=== PATIENT | male | born 1940 | race Caucasian/White ===

== ENCOUNTER → 2017-05-08 13:12 | Outpatient (CLI) | payer MEDICARE, OTHER, SELFPAY ==
--- NOTE | 2017-05-08 13:14 | CT_ITS ---
STUDY: LOW DOSE CT LUNG CANCER SCREENING REASON FOR EXAM: Male, 76 years old. Tobacco abuse. 40 year pack smoking history. RADIATION DOSAGE (If Supplied By Facility): CTDIvol = ( 2.01 ) mGy, DLP = ( 79.52 ) mGycm TECHNIQUE: No contrast was administered. Low dose technique was utilized (average mAS-38 and kVp 120). 1.25 mm axial source images with a slice interval of 1.25-mm were reconstructed in lung windows. 2.5 mm axial source images with a slice interval of 2.5-mm were reconstructed in lung windows. 5.0 mm axial source images with a slice interval of 5.0-mm were reconstructed in soft tissue windows. Nodule measured using lung windows on PACS and/or independent workstation with automated measurement of minimum and maximum diameter. Nodule measurement reported as average diameter rounded to the nearest whole number. Growth is defined as an increase ins size of greater than 1.5 mm. COMPARISON: None. NODULES: There is a 1.5 cm x 0.8 cm spiculated nodule in the medial superior aspect of the right upper lobe. There is also evidence of scarring with focal bronchiectasis in both lung apices. Mild linear scarring in the lingular segment of the left upper lobe as well as both lung bases. Emphysema: Hyperinflation. Diffuse emphysematous changes. Aorta: Atherosclerotic plaque. Coronary arteries: Coronary artery calcification. CT/Low Dose CT Lung Screening IMPRESSION: Diffuse emphysematous changes scarring at both lung apices. 1.5 cm x 0.8 cm typically nodule in the medial superior aspect of the right upper lobe. Correlation with the a PET scan is recommended for further evaluation. IMPORTANT NOTES FOR USE: ACR Lung-RADS Version 1.0 Assessment Categories Release Date: July 22, 2013 Category: Coded 0-4 bases on nodule(s) with highest degree of suspicion. Negative screen is defined as categories 1 and 2; a positive screen is defined as categories 3 and 4. Category 3 and 4A nodules that are unchanged on interval CT should be coded as category 2, and individuals returned to screening in 12 months. Category 4X: Category 3 or 4 nodules with additional imaging findings that increase the suspicion of lung cancer, such as spiculation, GGN that doubles in size in 1 year, enlarged lymph notes, etc. Category Modifiers: S (significant finding unrelated to lung cancer) and C (prior history of treated lung cancer) may be added to the 0-4 Lung-RADS Electronically Signed: Piyush Knowles MD at 14:15 EST Tel [phone], Service support ,
== END ==
PROVIDERS: Family Provider Family Medicine; PCP Family Medicine; Visit Provider Internal Medicine Pulmonary Disease
DX: Z87.891 Personal history of nicotine dependence (principal)
CPT/HCPCS: G0297

== ENCOUNTER → 2017-05-29 07:24 | Outpatient (CLI) | payer MEDICARE, OTHER, SELFPAY ==
--- NOTE | 2017-05-29 08:00 | PET_ITS ---
EXAMINATION: FDG PET CT INDICATIONS: A 76-year-old male with reported history of pulmonary nodularity. COMPARISON EXAMINATION: CT of the chest report dated 04/28/17. INDEX LESION SIZE SUV INTERPRETATION Right upper hemithorax pulmonary parenchyma, right upper lobe 9.2 mm (frame 244) 1.3 Quantitative criteria for viable neoplasm are not fulfilled, sequential radiologic investigation recommended NON-INDEX LESION SIZE SUV INTERPRETATION Left lobe of the thyroid gland 5.0 May warrant further investigation with thyroid ultrasound secondary to the quantitative degree of uptake Right-left thoracic perihilum 2.2 Quantitative criteria for viable neoplasm are not fulfilled TECHNIQUE: Following the intravenous administration of 12.3 mCi of F-18 deoxyglucose via the left antecubital fossa, multiplanar image acquisitions of the neck, chest, abdomen and pelvis to level of mid thigh, obtained at one hour post radiopharmaceutical administration contemporaneously interpreted with the current CT of the neck, chest, abdomen and pelvis to level of mid thigh, dated 05/29/[address] of the chest report dated 04/28/17 reveal: SERUM GLUCOSE LEVEL: 121 mg/dl. HEIGHT: 67 inches. WEIGHT: 138 lbs. FINDINGS: 1. Subtle increased glucose metabolism is demonstrated in the right upper hemithorax pulmonary parenchyma, right upper lobe generating a calculated maximum standard uptake value of 1.3. The maximal axial diameter of the corresponding parenchymal density on review of CT of the thorax dated 05/29/17 is approximately 9.2 mm (transverse). 2. Mild enhanced glucose concentration is observed in the bilateral thoracic perihilum generating a calculated maximum standard uptake value of 2.2. Quantitative criteria for viable neoplasm are not fulfilled. 3. Normal physiologic distribution of the radiopharmaceutical is apparent in the hepatic (2.8) and splenic parenchyma, both renal units, bladder and visualized intestinal tract. There is symmetric and preserved glucose metabolism noted in the visualized portion of the frontal, occipital, temporal and parietal lobes of the cerebral cortex, as well as cerebral hemispheres and basal ganglia. Diffuse intestinal tract activity is noted throughout all four quadrants of the abdominal-pelvic retroperitoneum, mesentery consistent with normal physiologic distribution of the radiopharmaceutical. Prominent glucose metabolism is defined in the left anterior neck contiguous to the left lobe of the thyroid gland generating a calculated maximum standard uptake value of 5.0. Pertinent CT findings are as follows. CHEST: Emphysematous change is noted in the bilateral upper-mid lung zones. There are no additional parenchymal densities-nodules demonstrated in the right-left hemithorax manifesting quantitatively significant increased glucose metabolism. Bilateral axillary soft tissue densities with fatty hilus formation are non-glucose avid. Coronary arterial calcification is observed. Atherosclerotic calcification is defined in the thoracic aorta without evidence of dilatation, aneurysm formation. Mediastinal soft tissue densities are ametabolic. ABDOMEN AND PELVIS: Atherosclerotic calcification is defined in the abdominal aorta without evidence of dilatation, aneurysm formation. Pelvic arterial calcification is observed. Dystrophic calcifications are manifest within the prostate gland. Right-left subcentimeter inguinal soft tissue densities reveal no evidence of increased glucose metabolism. Colonic diverticulosis is defined. Calcification is demonstrated in the right kidney. SKELETAL: Degenerative changes defined in the cervical, thoracic and lumbar spine demonstrate no evidence for glucose hypermetabolism. Diffuse demineralization is visualized. PET/PET/CT Tumor Base -Thigh Init IMPRESSION: 1. Increased glucose concentration observed in the right upper hemithorax pulmonary parenchyma, right upper lobe does not fulfill quantitative criteria for viable neoplasm. (Vanegas et al, Annals of Internal Medicine, 138:724, 2003). 2. Metabolic and/or anatomic stability may be ensured in the right hemithorax pulmonary parenchymal abnormality with repeat FDG PET study and/or CT of the thorax in three months. (Xiu, Journal of Nuclear Medicine 45:88, P2004. Carin, Seminars in Thoracic and Cardiovascular Surgery 14:292, 2002). 3. Facilitated glucose concentration observed in the left lobe of the thyroid gland may warrant further investigation with thyroid ultrasound secondary to the quantitative degree of uptake. (Denny Fallon et al, Journal of Clinical Endocrinology and Metabolism 88:4100, 2003). 4. Enhanced glucose concentration visualized in the right and left thoracic perihilum does not fulfill quantitative criteria for viable neoplasm. (Marck, Journal of Clinical Oncology 16:2142, 1998). Electronic Signature Ross Maria D.O. Electronically Signed: Ross Maria DO at 23:51 EST Tel , Service support ,
== END ==
PROVIDERS: Family Provider Family Medicine; PCP Family Medicine; Visit Provider Internal Medicine Pulmonary Disease
DX: R91.1 Solitary pulmonary nodule (principal)
CPT/HCPCS: 78815; A9552; A4216

== ENCOUNTER → 2017-07-19 10:22 | Outpatient (CLI) | payer MEDICARE, OTHER, SELFPAY ==
[2017-07-19 12:33] LABS: Anion Gap 9 (5-15); BUN 29 mg/dL (7-18); BUN/Creat Ratio 25.4 RATIO (10-20); Calcium,Total 9.2 mg/dL (8.5-10.1); Chloride 103 mmol/L (98-107); Creatinine, Serum 1.14 mg/dL (0.70-1.30); EST Glomerular Filtration Rate 67 mL/min (>60); Est Glom Filt Rate - Afr Amer 81 mL/min (>60); Glucose 110 mg/dL (74-106); Potassium 3.4 mmol/L (3.5-5.1); Sodium Level 140 mmol/L (136-145); T4 Total, Thyroxin 10.6 ug/dL (4.5-12.1); Thyroid Stim Hormone (TSH) 0.23 uIU/mL (0.358-3.74)
== END ==
PROVIDERS: Family Provider Family Medicine; PCP Family Medicine; Visit Provider Family Medicine
DX: I10 Essential (primary) hypertension (principal); R94.6 Abnormal results of thyroid function studies
CPT/HCPCS: 36415; 80048; 84436; 84443; 84481

== ENCOUNTER → 2017-07-24 10:14 | Outpatient (CLI) | payer MEDICARE, OTHER, SELFPAY ==
--- NOTE | 2017-07-24 10:16 | US_ITS ---
STUDY: THYROID ULTRASOUND REASON FOR EXAM: Male, 76 years old. Abnormal thyroid function tests TECHNIQUE: Ultrasound evaluation of the thyroid was performed with real-time and static larson-scale imaging. COMPARISON: None. FINDINGS: RIGHT LOBE: The right lobe of the thyroid gland measures 5.5 x 1.9 x 2.8 cm. There is a homogeneous echotexture. Multiple solid nodules are noted, largest contains calcifications and measures 1.0 x 0.9 x 0.9 cm. LEFT LOBE: The left lobe of the thyroid gland measures 5.2 x 2.0 x 2.7 cm. There is a homogeneous echotexture. Multiple solid nodules identified, largest measures 1.8 x 1.2 x 1.2 cm ISTHMUS: The isthmus measures 4 mm. The regional lymph nodes are normal. US/Thyroid IMPRESSION: Enlarged homogeneous thyroid gland with multiple bilateral solid hypoechoic nodules. The largest in the right lobe contains calcifications. Findings are likely sales representative business courses of goiter but there are no previous studies available for comparison. Further evaluation with thyroid uptake study is recommended to assess uptake characteristics of the nodules. Electronically Signed: Rainer Rogers MD at 11:26 EDT , Service support ,
== END ==
PROVIDERS: Family Provider Family Medicine; PCP Family Medicine; Visit Provider Family Medicine
DX: R94.6 Abnormal results of thyroid function studies (principal)
CPT/HCPCS: 76536

== ENCOUNTER → 2017-08-01 10:18 | Outpatient (CLI) | payer MEDICARE, OTHER, SELFPAY ==
--- NOTE | 2017-08-01 10:21 | RAD_ITS ---
STUDY: X-RAY CHEST REASON FOR EXAM: Male, 76 years old. COPD exacerbation TECHNIQUE: PA and lateral views of the chest. COMPARISON: 06/25/2013 FINDINGS: There is hyperinflation of the lungs consistent with chronic obstructive lung disease (COPD). Lungs are clear. There is no demonstrated pleural abnormality. Normal size heart. Normal mediastinum and katie. Normal visualized pulmonary arteries. Normal visualized aortic arch and descending thoracic aorta. Normal visualized thoracic spine. Normal visualized ribs, clavicles, and shoulders. There is no demonstrated abnormality of the visualized soft tissue structures of the upper abdomen. RAD/Chest PA and Lateral IMPRESSION: COPD without acute findings Electronically Signed: Ranjan Cardona DO at 17:34 EDT Tel , Service support ,
== END ==
PROVIDERS: Family Provider Family Medicine; PCP Family Medicine; Visit Provider Family Medicine
DX: J44.1 Chronic obstructive pulmonary disease with (acute) exacerbation (principal)
CPT/HCPCS: 71046

== ENCOUNTER → 2017-08-14 08:48 | Outpatient (CLI) | payer MEDICARE, OTHER, SELFPAY ==
--- NOTE | 2017-08-14 08:45 | NM_ITS ---
CLINICAL: Male, 76 years old. THYROID IMAGING STUDY TECHNIQUE: The patient was administered a 322 uCi I-123 capsule by mouth. Frontal plantar imaging of the thyroid was performed. COMPARISON STUDIES : Ultrasound thyroid 07/24/2017. PET CT 05/29/2017. CT chest 05/08/2017. FINDINGS: On the PET CT scan of 05/29/2017, there was a left-sided thyroid nodule measuring approximately 13 mm in greatest dimension exhibiting avid radiotracer uptake, hypermetabolic activity. This is a cold nodule on the thyroid scan today. This must be regarded with suspicion for neoplasm. Biopsy is recommended. There is otherwise homogeneous distribution of radiotracer within the right and the left gland. The right gland is slightly taller than the left. Thyroid uptake at 4 hours, 13.5%. Thyroid uptake at 24 hours, 28.4%. These values fall within normal ranges. NM/Thyroid Image Quant Measure IMPRESSION: 1. Normal thyroid uptake values. No evidence of hyper or hypothyroidism. 2. Cold nodule of the left thyroid gland corresponds in size and position with the hypermetabolic left thyroid nodule seen on PET/CT. These features must be regarded with suspicion for neoplasm. Biopsy is indicated. 3. On the recent ultrasound, the dominant solid nodule of the left thyroid gland measured approximately 18 x 12 x 12 mm. This corresponds with a cold nodule on today's study and with the hypermetabolic nodule on PET. Sonographic features include heterogeneous, hypoechoic, sharply circumscribed margins, oval shape, internal Doppler flow present. Based on the [place] Thy[employer] Guidelines for assessment of thyroid nodules, this nodule falls into the intermediate suspicion pattern based on echotexture and morphology, a hypoechoic solid nodule with smooth margins. Based on size criteria, greater than 1 cm, biopsy is indicated. Electronically Signed: Ross Mckinney, at 15:25 EDT Tel , Service support ,
== END ==
PROVIDERS: Family Provider Family Medicine; PCP Family Medicine; Visit Provider Family Medicine
DX: E04.2 Nontoxic multinodular goiter (principal)
CPT/HCPCS: 78014; A9516

== ENCOUNTER → 2017-09-05 17:20 | Outpatient (CLI) | payer MEDICARE, OTHER, SELFPAY ==
--- NOTE | 2017-09-05 11:30 | ASPS_PTH ---
PATIENT: MARGAUX NEWSOME LOC: [facility] U#:[id number] AGE/SX: 84/M ROOM: RE09/05/[address]: Dr. Micah Garcia MD : 1940 BED: DIS: SPEC #: [id number] RECD: 09/05/17 17:02 STATUS: EMELY SHANNON #: [id number] ELSA: 09/05/17 11:[address]: Micah Garcia DEPT: CYTOLOGY RECD BY: Jam Anaya Tissues: A - Thyroid gland, NOS B - Thyroid gland, NOS Procedures: Pap Stain (control) Special Stain Group II Cytology Other HEADER OPERATION: Bilateral thyroid FNA PRE-OP DIAGNOSIS: Bilateral thyroid nodules TISSUE SUBMITTED: A ? Right thyroid slides (4), B ? Left thyroid slides (8) DIAGNOSIS CYTOLOGY A. Right thyroid nodule, FNA (smears): Consistent with benign colloid nodule. See cytology study and comment. B. Left thyroid nodule, FNA (smears): Consistent with benign follicular nodule with focal H?rthle cell features. See cytology study and comment. SJ:rg 09/07/17 COMMENT Correlation with clinical, radiologic findings and appropriate follow up are necessary. CYTOLOGY STUDY Slides are reviewed. A. The specimen is adequate for evaluation. The specimen consists of benign follicular cells and colloid. B. The specimen is adequate for evaluation. The specimen consists of benign follicular cells, H?rthle cells, colloid and macrophages. CYTOLOGY GROSS A - Received are four smears labeled with the patient's name and designated per the requisition as right thyroid. Submitted for staining. B - Received are eight smears labeled with the patient's name and designated per the requisition as left thyroid. Submitted for staining. 09/06/17 TC:5 CPT: 16695 x2
== END ==
PROVIDERS: Visit Provider Surgery
DX: E04.2 Nontoxic multinodular goiter (principal)
CPT/HCPCS: 88161; 88313

== ENCOUNTER → 2017-09-26 12:49 | Outpatient (CLI) | payer MEDICARE, OTHER, SELFPAY ==
--- NOTE | 2017-09-26 12:51 | CT_ITS ---
STUDY: CT CHEST WITHOUT CONTRAST REASON FOR EXAM: Male, 77 years old. Lung nodule RADIATION DOSAGE (If Supplied By Facility): CTDIvol = ( 8.54 ) mGy, DLP = ( 326.47 ) mGycm TECHNIQUE: Transaxial imaging was performed without the administration of intravenous contrast material. Individualized dose optimization techniques were used for this CT. COMPARISON: May 08, 2017 FINDINGS: There is a 6 mm spiculated noncalcified nodule in the RIGHT upper lung corresponding to lesion seen on prior study. This is essentially unchanged. There is advanced COPD. There are fibrotic changes at the lung bases. There are NO infiltrates. There is NO pleural effusion or pneumothorax. Normal heart and pericardium. Normal mediastinum. Normal hilar regions. Normal unenhanced pulmonary arteries. Normal aorta arch and descending thoracic aorta. Normal osseous structures. There is no demonstrated abnormality of the visualized upper abdomen. CT/Chest without Contrast IMPRESSION: There is a 6 mm spiculated noncalcified nodule in the RIGHT upper lung corresponding to lesion seen on prior study. This is essentially unchanged. NO new nodules are seen. There is advanced COPD. There are fibrotic changes at the lung bases. There are NO infiltrates. There is NO pleural effusion or pneumothorax. Normal heart and pericardium. Electronically Signed: Ricardo Sandhu MD at 5:21 EDT , Service support ,
== END ==
PROVIDERS: Family Provider Family Medicine; PCP Family Medicine; Visit Provider Internal Medicine Pulmonary Disease
DX: R91.1 Solitary pulmonary nodule (principal)
CPT/HCPCS: 71250

== ENCOUNTER → 2018-02-09 13:40 | Outpatient (CLI) | payer MEDICARE, OTHER, SELFPAY ==
[2018-02-09 14:21] LABS: AST(SGOT) 22 U/L (15-37); Alanine Aminotransfer ALT/SGPT 22 U/L (16-61); Albumin, Serum 3.8 g/dL (3.2-5.0); Alkaline Phosphatase 79 U/L (45-117); Anion Gap 10 (5-15); BUN 25 mg/dL (7-18); BUN/Creat Ratio 27.2 RATIO (10-20); Bilirubin, Direct 0.13 mg/dL (0.00-0.30); Calcium,Total 8.9 mg/dL (8.5-10.1); Chloride 107 mmol/L (98-107); Cholesterol 218 mg/dL (200); Creatinine, Serum 0.92 mg/dL (0.70-1.30); EST Glomerular Filtration Rate 85 mL/min (>60); Est Glom Filt Rate - Afr Amer 103 mL/min (>60); Glucose 106 mg/dL (74-106); High Density Lipoprotein 49 mg/dL; Potassium 4.3 mmol/L (3.5-5.1); Protein, Total 6.8 g/dL (6.4-8.2); Sodium Level 142 mmol/L (136-145); Thyroid Stim Hormone (TSH) 0.27 uIU/mL (0.358-3.74); Triglycerides 126 mg/dL; Very Low Density Lipoprotein 25 mg/dL (5-40)
== END ==
PROVIDERS: PCP Family Medicine; Visit Provider Family Medicine
DX: E78.5 Hyperlipidemia, unspecified (principal); I10 Essential (primary) hypertension; E04.9 Nontoxic goiter, unspecified
CPT/HCPCS: 36415; 80048; 80061; 80076; 84443

== ENCOUNTER → 2018-05-08 12:48 | Outpatient (CLI) | payer MEDICARE, OTHER, SELFPAY ==
--- NOTE | 2018-05-08 12:53 | CT_ITS ---
STUDY: CT CHEST WITHOUT CONTRAST REASON FOR EXAM: Male, 77 years old. Pulmonary nodule follow-up RADIATION DOSAGE (If Supplied By Facility): CTDIvol = ( 9.52 ) mGy, DLP = ( 382.94 ) mGycm TECHNIQUE: Transaxial imaging was performed without the administration of intravenous contrast material. Coronal and sagittal 2-D MPR Individualized dose optimization techniques were used for this CT. COMPARISON: CT chest 09/26/2017, PET/CT 05/29/2017. FINDINGS: Supraclavicular: Low density sharply circumscribed oval left thyroid inferior pole nodule measuring 1.39 cm is unchanged compared to prior imaging. An adjacent small low-density nodule measures 9 mm, also unchanged. No apparent nodule of the right thyroid gland. No supraclavicular lymphadenopathy. Thoracic body wall soft tissues: No acute process. Upper abdomen: No acute process. Moderate pancreatic atrophy. Osseous structures: No acute process. Mild scoliosis. Moderate thoracic kyphosis. Minimal thoracic spondylosis. A small sclerotic focus within the T1 vertebral body is stable compared to prior imaging of September 2017 and is most likely to represent a small benign osteoma. Mediastinum: Normal esophagus. No mediastinal or hilar mass or lymphadenopathy. Cardiovascular: No cardiomegaly. Prominent chronic cusp secretions are present in the left main, proximal LAD, origin of circumflex. None are seen in the RCA distribution. Nondilated aorta, mild arch atherosclerosis. Nondilated central pulmonary arteries. Lungs: There are prominent features of COPD/emphysema. There are no apparent pulmonary nodules on the left. There is minimal left apical scar. On the right, apical segment of the upper lobe, spiculated pulmonary nodule with a greatest anterior-posterior dimension of approximate 7.4 mm, craniocaudal approximately 15 mm, and transverse approximately 8.5 mm. In comparison to prior imaging of 03/07/2019 (direct measurements performed today), the lesion previously measured anterior-posterior 17 mm, craniocaudal 15 mm, and transverse 8.5 mm. There has been no significant change in the size or morphology of the lesion. In comparison to prior PET/CT of 05/29/2017 there has also been no significant change in size or morphology of the lesion. CT/Chest without Contrast IMPRESSION: Right upper lobe apical segment spiculated pulmonary nodule has not substantially changed in size or morphology compared to prior imaging as far back as 05/29/2017. Demonstrated stability over 11 months. Surveillance imaging follow-up is recommended in one year. A follow-up low dose CT chest would be appropriate. No other suspicious pulmonary lesions. Severe emphysema. Coronary atherosclerosis. Electronically Signed: Ross Mckinney MD at 17:32 EST Tel , Service support ,
== END ==
PROVIDERS: Family Provider Family Medicine Geriatric Medicine; PCP Family Medicine Geriatric Medicine; Referring Provider Internal Medicine Pulmonary Disease; Visit Provider Internal Medicine Pulmonary Disease
DX: R91.1 Solitary pulmonary nodule (principal)
CPT/HCPCS: 71250

== ENCOUNTER → 2018-05-22 16:10 | Outpatient (CLI) | payer MEDICARE, OTHER, SELFPAY ==
[2018-05-22 16:36] LABS: Absolute Lymphocyte Count 1.38 X10^3/ul (0.83-4.51); Absolute Neutrophil Count 4.4 X10^3/uL (2.0-7.7); Basophil# 0.08 X10^3/uL; Basophil% 1.2 % (0-1); Eosinophil# 0.19 X10^3/uL; Eosinophils% 2.8 % (0-5); Hematocrit 44.1 % (40-54); Hemoglobin 14.6 g/dl (13.0-16.5); Lymphocyte # 1.38 X10^3/ul (4.0); Lymphocyte % 20.1 % (19-41); Mean Corp Hgb Conc 33.1 g/gl (32-36); Mean Corpuscular Hgb 31.7 pg (27.0-32.0); Mean Corpuscular Volume 95.7 fL (80-94); Mean Platelet Vol. 10.4 fl (6.2-12.0); Monocyte# 0.84 X10^3/uL; Monocyte% 12.2 % (0-10); Neutrophil # 4.38 X10^3/uL (2.7-7.7); Neutrophil % 63.6 % (47-70); POSITIVE COUNT NO; POSITIVE DIFFERENTIAL NO; POSITIVE MORPHOLOGY NO; Platelet Count 279 K/mm3 (150-450); RBC Distribution Width SD 44.1 fl (35.1-43.9); Red Blood Count 4.61 M/mm3 (4.6-6.2); White Blood Count 6.9 K/mm3 (4.4-11.0)
[2018-05-22 17:09] LABS: Vitamin D,25 Hydroxy 22.8 ng/mL (29.95-100.01)
[2018-05-22 17:18] LABS: AST(SGOT) 22 U/L (15-37); Alanine Aminotransfer ALT/SGPT 22 U/L (16-61); Albumin, Serum 3.6 g/dL (3.2-5.0); Alkaline Phosphatase 82 U/L (45-117); Anion Gap 7 (5-15); BUN 24 mg/dL (7-18); Calcium,Total 8.7 mg/dL (8.5-10.1); Chloride 105 mmol/L (98-107); Cholesterol 212 mg/dL (200); Creatinine, Serum 0.86 mg/dL (0.70-1.30); EST Glomerular Filtration Rate 92 mL/min (>60); Est Glom Filt Rate - Afr Amer 112 mL/min (>60); Globulin 3.5 g/dL (2.2-4.2); Glucose 101 mg/dL (74-106); High Density Lipoprotein 54 mg/dL; Potassium 3.8 mmol/L (3.5-5.1); Protein, Total 7.1 g/dL (6.4-8.2); Sodium Level 138 mmol/L (136-145); Thyroid Stim Hormone (TSH) 0.26 uIU/mL (0.358-3.74); Triglycerides 258 mg/dL; Very Low Density Lipoprotein 52 mg/dL (5-40)
[2018-05-23 14:28] LABS: T3 Uptake 37 % (33-40); T4 Free Direct 1.04 ng/dL (0.76-1.46)
== END ==
PROVIDERS: Family Provider Family Medicine Geriatric Medicine; PCP Family Medicine Geriatric Medicine; Visit Provider Family Medicine Geriatric Medicine
DX: E55.9 Vitamin D deficiency, unspecified (principal); R53.83 Other fatigue; E78.41 Elevated Lipoprotein(a); E03.9 Hypothyroidism, unspecified
CPT/HCPCS: 36415; 80053; 80061; 82306; 84439; 84443; 84479; 85025

== ENCOUNTER → 2018-05-24 07:52 | Outpatient (CLI) | payer MEDICARE, OTHER, SELFPAY ==
--- NOTE | 2018-05-24 07:54 | US_ITS ---
PROCEDURES: ULTRASOUND AORTA REASON FOR EXAM: Male, 77 years old. Abdominal aortic aneurysm TECHNIQUE: Ultrasound evaluation of the aorta was performed with real-time and static larson-scale imaging. COMPARISON: None. FINDINGS: There is no elongation or tortuosity of the abdominal aorta. Aorta measures: Proximal 2.4 cm. Middle 1.3 cm. Distal 1.4 cm. Aorta measure transversely: Proximal 2.3 cm. Middle 1.9 cm. Distal 2.3 cm. Right iliac artery measures: 1.1 cm. Right iliac artery measure transversely adequate images could not be obtained secondary to bowel gas artifact. Left iliac artery measures: 0.8 cm. Left iliac artery measure transversely accurate transverse measurements cannot be obtained secondary to bowel gas artifact. There is no demonstrated aneurysm.. US/Aorta IMPRESSION: There is no evidence of aneurysmal dilatation of the abdominal aorta or left or right common iliac arteries. Electronically Signed: Isaac Hernandes MD at 23:54 EST , Service support ,
--- NOTE | 2018-05-24 09:20 | BD_ITS ---
STUDY: DUAL ENERGY X-RAY ABSORPTIOMETRY / DXA REASON FOR EXAM: Male, 77 years old. Steroid nebulizer use. Loss of height. TECHNIQUE: Bone Mineral Density (BMD) measurements of lumbar spine and bilateral hips were obtained. COMPARISON: Comparison is made with prior study dated March 16, 2006. FINDINGS: Lumbar Spine (L1-L4): g/cm2 (0.937) / T-score (-2.5) / Z-score (-1.9) Findings are suggestive of osteoporosis with a high fracture risk. Left Femur Total: g/cm2 (0.752) / T-score (-2.4) / Z-score (-1.5) Left Femoral Neck: g/cm2 (0.684) / T-score (-3.0) / Z-score (-1.6) Right Femur Total: g/cm2 (0.729) / T-score (-2.6) / Z-score (-1.7) Right Femoral Neck: g/cm2 (0.644) / T-score (-3.3) / Z-score (-1.9) The T-Scores on the most recent prior examination were: Lumbar Spine (L1-L4): There has been improvement of bone density since the previous examination. Left Femur Total: which represents a worsening of 13.5%. BD/Dexa Bone Density Study IMPRESSION: The patient is considered osteoporotic as outlined below according to World Jaerd Organization (WHO) criteria with a high fracture risk. There has been worsening of bone density since the previous examination. Reference Information: The T-score is the number of standard deviations above or below the standard which is normal for young adults at their peak bone mineral density. The World Health Organization (WHO) interprets the T-scores as follows: Above -1 Normal bone density Between -1 and -2.5 Osteopenia Equal to / or below -2.5 Osteoporosis As a practical clinical guideline, osteopenia may be graded as follows: Mild -1 through -1.5 Moderate -1.6 through -2.0 Severe -2.1 through -2.4 The Z-score is the number of standard deviations above or below age-matched controls. A Z-score of less than -1.5 would be considered abnormal. References: 1. NIH Osteoporosis and Related Bone Diseases http://www.osteo.org 2. International Society for Clinical Densitometry http://www.iscd.org 3. National Osteoporosis Foundation http://www.nof.org Electronically Signed: Piyush Knowles, at 15:18 EST , Service support ,
== END ==
PROVIDERS: Family Provider Family Medicine Geriatric Medicine; PCP Family Medicine Geriatric Medicine; Referring Provider Family Medicine Geriatric Medicine; Visit Provider Family Medicine Geriatric Medicine
DX: I71.4 Abdominal aortic aneurysm, without rupture (principal); M81.0 Age-related osteoporosis without current pathological fracture
CPT/HCPCS: 76775; 77080

== ENCOUNTER → 2019-01-10 11:15 | Outpatient (CLI) | payer MEDICARE, OTHER, SELFPAY ==
[2019-01-10 12:29] LABS: Absolute Lymphocyte Count 0.79 X10^3/uL (0.83-4.51); Absolute Neutrophil Count 7.2 X10^3/uL (2.0-7.7); Basophil# 0.03 X10^3/uL; Basophil% 0.3 % (0-1); Eosinophil# 0.02 X10^3/uL; Eosinophils% 0.2 % (0-5); Hematocrit 40.3 % (40-54); Hemoglobin 13.1 g/dL (13.0-16.5); Lymphocyte # 0.79 X10^3/ul (4.0); Lymphocyte % 8.5 % (19-41); Mean Corp Hgb Conc 32.5 g/dL (32-36); Mean Corpuscular Hgb 31.1 pg (27.0-32.0); Mean Corpuscular Volume 95.7 fL (80-94); Mean Platelet Vol. 10.5 fl (6.2-12.0); Monocyte# 1.19 X10^3/uL; Monocyte% 12.8 % (0-10); NRBC Flagged by Analyzer 0 % (0-5); Neutrophil # 7.22 X10^3/uL (2.7-7.7); Neutrophil % 77.6 % (47-70); Platelet Count 426 K/mm3 (150-450); RBC Distribution Width CV 12.9 % (11.6-14.6); RBC Distribution Width SD 46.1 fl (35.1-43.9); Red Blood Count 4.21 M/mm3 (4.6-6.2); White Blood Count 9.3 K/mm3 (4.4-11.0)
[2019-01-10 12:45] LABS: Vitamin D,25 Hydroxy 40.2 ng/mL (29.95-100.01)
[2019-01-10 12:50] LABS: BUN 14 mg/dL (7-18); Creatinine, Serum 0.73 mg/dL (0.70-1.30); Glucose 97 mg/dL (74-106)
[2019-01-10 12:51] LABS: ALB/GLOB Ratio 0.7 RATIO (0.9-2.4); AST(SGOT) 16 U/L (15-37); Alanine Aminotransfer ALT/SGPT 19 U/L (16-61); Alkaline Phosphatase 100 U/L (45-117); Anion Gap 9 (5-15); BUN/Creat Ratio 19.2 RATIO (10-20); Calcium,Total 9.6 mg/dL (8.5-10.1); Chloride 110 mmol/L (98-107); EST Glomerular Filtration Rate 111 mL/min (>60); Est Glom Filt Rate - Afr Amer 134 mL/min (>60); Globulin 4.2 g/dL (2.2-4.2); Potassium 3.7 mmol/L (3.5-5.1); Protein, Total 7.2 g/dL (6.4-8.2); Sodium Level 144 mmol/L (136-145); Thyroid Stim Hormone (TSH) 0.13 uIU/mL (0.358-3.74)
== END ==
PROVIDERS: Family Provider Family Medicine Geriatric Medicine; PCP Family Medicine Geriatric Medicine; Visit Provider Family Medicine Geriatric Medicine
DX: I10 Essential (primary) hypertension (principal); E55.9 Vitamin D deficiency, unspecified
CPT/HCPCS: 36415; 80053; 82306; 84443; 85025

== ENCOUNTER → 2019-05-08 12:57 | Outpatient (CLI) | payer MEDICARE, SELFPAY ==
[2019-04-18 08:10] VITALS: BMI 21.3
--- NOTE | 2019-05-08 12:59 | CT_ITS ---
STUDY: CT CHEST WITHOUT CONTRAST REASON FOR EXAM: Male, 78 years old. LUNG NODULE FOLLOW UP RADIATION DOSAGE (If Supplied By Facility): CTDIvol = ( 7.82 ) mGy, DLP = ( 320.39 ) mGycm TECHNIQUE: Transaxial imaging was performed without the administration of intravenous contrast material. Individualized dose optimization techniques were used for this CT. COMPARISON: FINDINGS: Mild bilateral apical scarring. Mild emphysematous changes. No change is 8 mm thick related noncalcified nodule right upper lobe the lungs on image 24 consistent with a scar. The patient has had PET CT scans in the past. No new noncalcified nodule or mass. There is no demonstrated pleural abnormality. Normal heart and pericardium. There are calcifications of the coronary arteries. 2 cm nodule decreased attenuation the left lobe of thyroid gland and correlation with thyroid ultrasound is recommended. Normal hilar regions. Normal unenhanced pulmonary arteries. Normal aorta arch and descending thoracic aorta. Normal osseous structures. There is no demonstrated abnormality of the visualized upper abdomen. CT/Chest without Contrast IMPRESSION: 1. Mild emphysema with no change in 8 mm thick related nodule the right upper lobe the lungs consistent with scar. This is now been stable for 2 years and requires no further follow-up. 2. 2 cm nodule in the left lobe of the thyroid gland and correlation with thyroid ultrasound is recommended. Electronically Signed: Ross Iqbal MD at 16:50 EST Tel , Service support ,
[2019-05-08] MEDS: Zoledronic Acid 5 MG 100 ML 300 MG IV (13:39)
[2019-05-08 13:40] VITALS: BP 168/75; PULSE 68; RESP 16; TEMP 36.7; BMI 21.2
== END ==
LOC: CT 12:58 → MEDOUTP 13:17
PROVIDERS: Family Provider Family Medicine Geriatric Medicine; PCP Family Medicine Geriatric Medicine; Referring Provider Internal Medicine Pulmonary Disease; Visit Provider Internal Medicine Pulmonary Disease
DX: R91.1 Solitary pulmonary nodule (principal); M81.0 Age-related osteoporosis without current pathological fracture
CPT/HCPCS: 96365; 71250; A4216; J3489

== ENCOUNTER 2019-05-25 19:20 | Emergency (ER) | payer MEDICARE, SELFPAY ==
[2019-05-08 13:40] VITALS: BMI 21.2
[2019-05-25 19:22] VITALS: BP 183/91; PULSE 105; RESP 18; TEMP 36.8; O2SAT 98; BMI 21.3
--- NOTE | 2019-05-25 19:41 | CT_ITS ---
STUDY: CT ABDOMEN AND PELVIS WITHOUT CONTRAST REASON FOR EXAM: Male, 78 years old. Right flank pain RADIATION DOSAGE (If Supplied By Facility): CTDIvol = ( 6.12 ) mGy, DLP = ( 278.12 ) mGycm TECHNIQUE: Transaxial images were obtained from the dome of the diaphragm to the symphysis pubis without oral contrast, and without intravenous contrast. Sagittal and coronal images were reconstructed. Individualized dose optimization techniques were used for this CT. COMPARISON: 29 May 2017 there are no pleural effusions or pulmonary edema. FINDINGS: Lung bases are emphysematous. Abdominal solid organs are normal. There is no intestinal obstruction. There is sigmoid diverticulosis without diverticulitis. There is no hydronephrosis or urinary calculi. CT/Abdomen/Pelvis without Cont IMPRESSION: No acute abdominal findings. Electronically Signed: Maribell Sharif, at 20:22 EST Tel , Service support ,
--- NOTE | 2019-05-25 19:43 | ED.VIS.GI ---
History of Present Illness Chief Complaint: Flank Pain Informant: Patient - Abdominal Pain/Flank Pain Onset: Yesterday Context: Sudden Onset Timing: Intermittent Quality: Aching Location: Right Flank Current Severity: Mild Maximum Severity: Severe Worsened by: Nothing Relieved by: Nothing - Nausea/Vomiting/Emesis GI Symptom: Nausea, Vomiting Onset: Today Severity: Mild - Diarrhea/Melena/Hematochezia GI Symptom: Negative for: Diarrhea, Melena, Hematochezia Associated Symptoms: Negative for: Dysuria, Frequency, Hematuria, Urgency Narrative: Patient has had intermittent right flank pain since last night, worse today after helping to lift a bale of hay but did not feel like he strained himself. Remote history of kidney stones but it was a long time ago. Recent Illness/Hospitalization: No - Past Medical History (1) HTN (hypertension) Status: Chronic (2) GERD (gastroesophageal reflux disease) Status: Chronic Past Medical History - Allergies and Home Meds Allergies/Adverse Reactions: Allergies No Known Allergies Allergy (Verified 05/25/19 19:24) Primary Care Physician: Alexander Steiner Chi, MD [Primary Care Provider] - Lives: Spouse/ Significant Other Smoking Status: Former smoker Review of Systems General: Denies: Chills, Fever, Sweats Eyes: Denies: Visual changes - bilaterally, Diplopia ENT: Denies: Rhinorrhea, Sore throat Cardiovascular: Denies: Chest pain, Palpitations Respiratory: Denies: Dyspnea, Cough, Dyspnea on exertion Gastrointestinal: Reports: Abdominal pain, Nausea, Vomiting. Denies: Diarrhea, Melena, Hematochezia Genitourinary: Denies: Dysuria, Hematuria, Frequency Musculoskeletal: Reports: Back pain. Denies: Swelling, Extremity Pain Skin: Denies: Rash, Wounds Neurological: Denies: Headache, Weakness, Numbness Physical Exam Vital Signs/Narrative: Vital Signs Temp Pulse Resp BP Pulse Ox 05/25/19 19:22 98.3 F 105 H 18 183/91 H 98 Inital Vital Signs reviewed: Yes General: Well nourished, Well developed, No Acute Distress Head: Normocephalic, Atraumatic Eyes: Perrl, EOMI ENT: Moist mucous membranes, No rhinorrhea Neck: Supple, Nontender Cardiovascular: Regular rate, Regular rhythm, No murmurs Respiratory: No distress, CTA bilaterally, Chest nontender Abdomen: Soft, Nondistended, Normal bowel sounds, Tender - Mild, right mid-lateral abdomen. Negative for: Guarding, Rebound tenderness, Valencia's sign Back: Nontender, Normal Inspection. Negative for: CVA tenderness Extremities: Nontender, No edema Skin: Normal color, No rash, No Trauma Neurological: Alert, Oriented x3, Cranial nerves II-XII grossly intact, Normal Strength, Normal Sensation, Normal Gait Psychological: Normal affect, Normal Mood Diagnostic/Tx/Re-eval Impressions Abdomen/Pelvis CT 05/25/19 19:41 IMPRESSION: No acute abdominal findings. Electronically Signed: Maribell Sharif, at 20:22 EST Tel , Service support , ADDENDUM: 05/25/19204905/25/19 19:41 Abdomen/Pelvis without Cont [CT] Stat Laboratory Results 05/25/19 05/25/19 05/25/19 19:30 19:30 20:10 WBC 13.4 H RBC 4.93 Hgb 15.4 Hct 46.4 MCV 94.1 H MCH 31.2 MCHC 33.2 RDW Std Deviation 46.3 H RDW Coeff of Rima 13.4 Plt Count 289 MPV 10.2 Immature Gran % (Auto) 1.000 H Neut % (Auto) 80.2 H Lymph % (Auto) 10.7 L [place] % (Auto) 7.4 Eos % (Auto) 0.2 Baso % (Auto) 0.5 Absolute Neuts (auto) 10.7 H Absolute Lymphs (auto) 1.43 Nucleated RBC % 0 Sodium 142 Potassium 3.9 Chloride 110 H Carbon Dioxide 25.0 Anion Gap 7 BUN 30 H Creatinine 0.94 Estim Creat Clear Calc 58.44 Est GFR (MDRD) Af Amer 100 Est GFR (MDRD) Non-Af 83 BUN/Creatinine Ratio 31.9 H Glucose 89 Calcium 9.7 Urine Color Yellow Urine Clarity Sl. Cloudy Urine pH 6.0 Ur Specific [place] 1.020 Urine Protein 15 H Urine Glucose (UA) Normal Urine Ketones 5 H Urine Occult Blood 250 H Urine Nitrite Negative Urine Bilirubin Negative Urine Urobilinogen 1 H Ur Leukocyte Esterase 25 H Urine RBC 25-50 SEEN Urine WBC 0-5 SEEN Ur Squamous Epith Cells 0-5 SEEN Urine Bacteria 0 SEEN Urine Mucus RARE - Medical Decision Making CT shows a 3-4 mm distal right ureteral stone with mild hydroureter and hydronephrosis. The radiologist original CT report showed that there were no acute findings, however I called and discussed with him and he had already corrected it with an addendum and agrees that it shows a stone in the right distal ureter. This is consistent with the patient's symptoms. His pain is well controlled with a couple doses of morphine 2 mg, he still had some pain and requested something else even though he was comfortable, so he was given 1 dose of Toradol. Expectant management is indicated for this, and symptom control. He was given urine strainers and a prescription for Percocet, and we discussed reasons to return. No sign of infection on urinalysis. If he goes 1 week without passing the stone, I advised that he follow-up with urology for a recheck. ED Disposition - Plan for ED Patient: Disposition: Home or Assisted Living Diagnosis: Ureteral colic, Renal colic on right side, Ureterolithiasis Instructions: KIDNEY STONE w/ Colic Prescriptions: Oxycodone HCl/Acetaminophen [Percocet 5/325] 1 tablet PO Q6H PRN PRN 3 Days #15 tablet PRN Reason: Pain Transmission Status: Pending to [facility] Ondansetron [Zofran] 8 mg PO Q8H PRN PRN #12 tab PRN Reason: Nausea Transmission Status: Pending to [facility] Referrals: Alexander Steiner Chi, MD [Primary Care Provider] - Rene Otto MD [STAFF PHYSICIAN] - 1 Week if not improving
[2019-05-25] MEDS: Morphine 2 MG/ML Syringe IV ×2 (19:49→20:23)
[2019-05-25] MEDS: Ondansetron 4 MG/2 ML Vial IV (19:49)
[2019-05-25 20:04] LABS: Absolute Lymphocyte Count 1.43 X10^3/uL (0.83-4.51); Absolute Neutrophil Count 10.7 X10^3/uL (2.0-7.7); Basophil# 0.07 X10^3/uL; Basophil% 0.5 % (0-1); Eosinophil# 0.03 X10^3/uL; Eosinophils% 0.2 % (0-5); Hematocrit 46.4 % (40-54); Hemoglobin 15.4 g/dL (13.0-16.5); Lymphocyte # 1.43 X10^3/ul (4.0); Lymphocyte % 10.7 % (19-41); Mean Corp Hgb Conc 33.2 g/dL (32-36); Mean Corpuscular Hgb 31.2 pg (27.0-32.0); Mean Corpuscular Volume 94.1 fL (80-94); Mean Platelet Vol. 10.2 fl (6.2-12.0); Monocyte# 0.99 X10^3/uL; Monocyte% 7.4 % (0-10); NRBC Flagged by Analyzer 0 % (0-5); Neutrophil # 10.74 X10^3/uL (2.7-7.7); Neutrophil % 80.2 % (47-70); Platelet Count 289 K/mm3 (150-450); RBC Distribution Width CV 13.4 % (11.6-14.6); RBC Distribution Width SD 46.3 fl (35.1-43.9); Red Blood Count 4.93 M/mm3 (4.6-6.2); White Blood Count 13.4 K/mm3 (4.4-11.0)
[2019-05-25 20:13] LABS: Anion Gap 7 (5-15); BUN 30 mg/dL (7-18); BUN/Creat Ratio 31.9 RATIO (10-20); Calcium,Total 9.7 mg/dL (8.5-10.1); Chloride 110 mmol/L (98-107); Creatinine, Serum 0.94 mg/dL (0.70-1.30); EST Glomerular Filtration Rate 83 mL/min (>60); Est Glom Filt Rate - Afr Amer 100 mL/min (>60); Estimated Creatinine Clearance 58.44 ml/min; Glucose 89 mg/dL (74-106); Potassium 3.9 mmol/L (3.5-5.1); Sodium Level 142 mmol/L (136-145)
[2019-05-25 20:21] VITALS: BP 191/101; PULSE 91; RESP 16
[2019-05-25 20:21] LABS: Bacteria 0 SEEN /hpf (None Seen)
[2019-05-25 20:23] LABS: Color, Urine Yellow (Yellow); Glucose, Dipstick Normal (Normal); Ketone-Dipstick 5 mg/dl (Negative); Leukocyte Esterase-Dipstick 25 /ul (Negative); Nitrite-Dipstick Negative (Negative); Occult Blood-Urine 250 /ul (Negative); Protein-Dipstick 15 mg/dl (Negative); Urine Bilirubin Dipstick Negative (Negative); Urine Clarity Sl. Cloudy (Clear); Urine Urobilinogen 1 mg/dl (Normal)
[2019-05-25 20:48] LABS: Mucous, Urine RARE /hpf (<or=2+); Red Blood Cells-Urine 25-50 SEEN /hpf (0-5); Squamous Epithelial Cells - UA 0-5 SEEN /hpf (0-5); White Blood Cells 0-5 SEEN /hpf (0-5)
[2019-05-25 20:50] VITALS: BP 188/91; PULSE 85; RESP 15
[2019-05-25] MEDS: Ketorolac 15 MG/ML Vial IV (21:52)
[2019-05-25 22:09] VITALS: BP 154/87; PULSE 86; RESP 15
== END 2019-05-25 22:10 | disposition home or self-care (01) ==
PROVIDERS: Emergency Provider Emergency Medicine; PCP Family Medicine Geriatric Medicine
DX: N13.2 Hydronephrosis with renal and ureteral calculous obstruction (principal); I10 Essential (primary) hypertension; K21.9 Gastro-esophageal reflux disease without esophagitis; Z87.442 Personal history of urinary calculi; Z79.82 Long term (current) use of aspirin; Z79.899 Other long term (current) drug therapy; Z87.891 Personal history of nicotine dependence
CPT/HCPCS: 74176; 80048; 81001; 85025; 96374; 96375; 99282; A4216; J2405

== ENCOUNTER → 2019-07-12 11:00 | Outpatient (CLI) | payer MEDICARE, SELFPAY ==
[2019-07-12 11:55] LABS: Absolute Lymphocyte Count 1.19 X10^3/uL (0.83-4.51); Absolute Neutrophil Count 5.9 X10^3/uL (2.0-7.7); Basophil# 0.06 X10^3/uL; Basophil% 0.7 % (0-1); Eosinophil# 0.06 X10^3/uL; Eosinophils% 0.7 % (0-5); Hematocrit 44.1 % (40-54); Hemoglobin 13.9 g/dL (13.0-16.5); Lymphocyte # 1.19 X10^3/ul (4.0); Lymphocyte % 14.7 % (19-41); Mean Corp Hgb Conc 31.5 g/dL (32-36); Mean Corpuscular Hgb 30.7 pg (27.0-32.0); Mean Corpuscular Volume 97.4 fL (80-94); Mean Platelet Vol. 10.2 fl (6.2-12.0); Monocyte# 0.81 X10^3/uL; NRBC Flagged by Analyzer 0 % (0-5); Neutrophil # 5.88 X10^3/uL (2.7-7.7); Neutrophil % 72.4 % (47-70); Platelet Count 267 K/mm3 (150-450); RBC Distribution Width CV 13.7 % (11.6-14.6); RBC Distribution Width SD 49.6 fl (35.1-43.9); Red Blood Count 4.53 M/mm3 (4.6-6.2); White Blood Count 8.1 K/mm3 (4.4-11.0)
[2019-07-12 12:11] LABS: Vitamin D,25 Hydroxy 27.1 ng/mL
[2019-07-12 12:17] LABS: ALB/GLOB Ratio 1.1 RATIO (0.9-2.4); AST(SGOT) 16 U/L (15-37); Alanine Aminotransfer ALT/SGPT 26 U/L (16-61); Albumin, Serum 3.4 g/dL (3.2-5.0); Alkaline Phosphatase 66 U/L (45-117); Anion Gap 6 (5-15); BUN 28 mg/dL (7-18); BUN/Creat Ratio 35.9 RATIO (10-20); Calcium,Total 9.3 mg/dL (8.5-10.1); Chloride 110 mmol/L (98-107); Creatinine, Serum 0.78 mg/dL (0.70-1.30); EST Glomerular Filtration Rate 103 mL/min (>60); Est Glom Filt Rate - Afr Amer 124 mL/min (>60); Globulin 3.2 g/dL (2.2-4.2); Glucose 101 mg/dL (74-106); Potassium 4.3 mmol/L (3.5-5.1); Protein, Total 6.6 g/dL (6.4-8.2); Sodium Level 142 mmol/L (136-145); Thyroid Stim Hormone (TSH) 0.58 uIU/mL (0.358-3.74)
== END ==
PROVIDERS: PCP Family Medicine Geriatric Medicine; Visit Provider Family Medicine Geriatric Medicine
DX: I10 Essential (primary) hypertension (principal); E55.9 Vitamin D deficiency, unspecified; Z12.5 Encounter for screening for malignant neoplasm of prostate
CPT/HCPCS: 36415; 80053; 82306; 84443; 85025

== ENCOUNTER → 2020-01-16 10:25 | Outpatient (CLI) | payer MEDICARE, SELFPAY ==
[2020-01-16 12:31] LABS: Absolute Lymphocyte Count 1.45 X10^3/uL (0.83-4.51); Absolute Neutrophil Count 4.5 X10^3/uL (2.0-7.7); Basophil# 0.06 X10^3/uL; Basophil% 0.9 % (0-1); Eosinophil# 0.11 X10^3/uL; Eosinophils% 1.6 % (0-5); Hematocrit 45.2 % (40-54); Hemoglobin 14.5 g/dL (13.0-16.5); Lymphocyte # 1.45 X10^3/ul (4.0); Lymphocyte % 21.2 % (19-41); Mean Corp Hgb Conc 32.1 g/dL (32-36); Mean Corpuscular Hgb 30.5 pg (27.0-32.0); Mean Corpuscular Volume 95.2 fL (80-94); Mean Platelet Vol. 10.7 fl (6.2-12.0); Monocyte# 0.72 X10^3/uL; Monocyte% 10.5 % (0-10); NRBC Flagged by Analyzer 0 % (0-5); Neutrophil # 4.45 X10^3/uL (2.7-7.7); Neutrophil % 64.9 % (47-70); Platelet Count 280 K/mm3 (150-450); RBC Distribution Width CV 13.6 % (11.6-14.6); RBC Distribution Width SD 48.1 fl (35.1-43.9); Red Blood Count 4.75 M/mm3 (4.6-6.2); White Blood Count 6.9 K/mm3 (4.4-11.0)
[2020-01-16 12:49] LABS: Vitamin D,25 Hydroxy 33.9 ng/mL
[2020-01-16 13:01] LABS: ALB/GLOB Ratio 1.1 RATIO (0.9-2.4); AST(SGOT) 21 U/L (15-37); Alanine Aminotransfer ALT/SGPT 23 U/L (16-61); Albumin, Serum 3.7 g/dL (3.2-5.0); Alkaline Phosphatase 77 U/L (45-117); Anion Gap 6 (5-15); BUN 21 mg/dL (7-18); BUN/Creat Ratio 24.7 RATIO (10-20); Calcium,Total 8.9 mg/dL (8.5-10.1); Chloride 109 mmol/L (98-107); Cholesterol 213 mg/dL (200); Creatinine, Serum 0.85 mg/dL (0.70-1.30); EST Glomerular Filtration Rate 93 mL/min (>60); Est Glom Filt Rate - Afr Amer 113 mL/min (>60); Globulin 3.4 g/dL (2.2-4.2); Glucose 97 mg/dL (74-106); High Density Lipoprotein 58 mg/dL; Potassium 3.9 mmol/L (3.5-5.1); Protein, Total 7.1 g/dL (6.4-8.2); Sodium Level 141 mmol/L (136-145); Thyroid Stim Hormone (TSH) 0.47 uIU/mL (0.358-3.74); Triglycerides 107 mg/dL; Very Low Density Lipoprotein 21 mg/dL (5-40)
== END ==
PROVIDERS: PCP Family Medicine Geriatric Medicine; Visit Provider Family Medicine Geriatric Medicine
DX: I10 Essential (primary) hypertension (principal); E55.9 Vitamin D deficiency, unspecified; E78.5 Hyperlipidemia, unspecified
CPT/HCPCS: 36415; 80053; 80061; 82306; 84403; 84443; 85025

== ENCOUNTER → 2020-01-30 | Outpatient (CLI) | payer MEDICARE, SELFPAY | END | disposition home or self-care (01) | LOC: LABSPEC 17:24 | PROVIDERS: PCP Family Medicine Geriatric Medicine; Referring Provider Family Medicine Geriatric Medicine; Visit Provider Family Medicine Geriatric Medicine | DX: U07.1 COVID-19 (principal) | CPT/HCPCS: 87633; 87635; C9803; U0003 ==

== ENCOUNTER → 2020-05-08 12:54 | Outpatient (CLI) | payer MEDICARE, SELFPAY ==
--- NOTE | 2020-05-08 12:57 | CT_ITS ---
STUDY: LOW DOSE CT LUNG CANCER SCREENING REASON FOR EXAM: Male, 79 years old. LUNG CANCER SCREENING. EX SMOKER FOR 10 YRS. 1.5 PPD X 30 YEARS RADIATION DOSAGE (If Supplied By Facility): CTDIvol = ( 1.70 ) mGy, DLP = ( 63.16 ) mGycm TECHNIQUE: No contrast was administered. Low dose technique was utilized (average mAS-38 and kVp 120). 1.25 mm axial source images with a slice interval of 1.25-mm were reconstructed in lung windows. 2.5 mm axial source images with a slice interval of 2.5-mm were reconstructed in lung windows. 5.0 mm axial source images with a slice interval of 5.0-mm were reconstructed in soft tissue windows. Nodule measured using lung windows on PACS and/or independent workstation with automated measurement of minimum and maximum diameter. Nodule measurement reported as average diameter rounded to the nearest whole number. Growth is defined as an increase ins size of greater than 1.5 mm. COMPARISON: Comparison is made with prior examination dated 05/08/2019. NODULES: The previously seen spiculated nodule in the apex of the right lung as seen on axial image #37 has increased slightly in size. Stable bilateral apical scarring more prominent at the right lung apex. Emphysema: Emphysematous changes worse in the upper lobes with evidence of a centrilobular emphysema. Endobronchial lesion: None Aorta: Atherosclerotic calcific plaques. Coronary arteries: Coronary artery calcification. Mediastinal nodes: Small benign-appearing mediastinal lymph nodes. Other chest and abdominal findings: CT/Low Dose CT Lung Screening IMPRESSION: Lung-RADS category 4A - Screening at 3 months wiht LDCT or evaluation with PET/CT may be used. IMPORTANT NOTES FOR USE: ACR Lung-RADS Version 1.0 Assessment Categories Release Date: July 22, 2013 Category: Coded 0-4 bases on nodule(s) with highest degree of suspicion. Negative screen is defined as categories 1 and 2; a positive screen is defined as categories 3 and 4. Category 3 and 4A nodules that are unchanged on interval CT should be coded as category 2, and individuals returned to screening in 12 months. Category 4X: Category 3 or 4 nodules with additional imaging findings that increase the suspicion of lung cancer, such as spiculation, GGN that doubles in size in 1 year, enlarged lymph notes, etc. Category Modifiers: S (significant finding unrelated to lung cancer) and C (prior history of treated lung cancer) may be added to the 0-4 Lung-RADS Electronically Signed: Piyush Knowles MD at 15:00 EST , Service support ,
== END ==
PROVIDERS: PCP Family Medicine Geriatric Medicine; Referring Provider Internal Medicine Pulmonary Disease; Visit Provider Internal Medicine Pulmonary Disease
DX: Z87.891 Personal history of nicotine dependence (principal)
CPT/HCPCS: 71271

== ENCOUNTER → 2020-08-04 08:18 | Outpatient (CLI) | payer MEDICARE, SELFPAY ==
[2020-08-04 08:27] VITALS: BP 169/76; PULSE 60; RESP 16; TEMP 36.3; O2SAT 96; BMI 20.8
[2020-08-04] MEDS: 0.9% NaCl Peripheral Flush Adult/Peds IV (08:40)
[2020-08-04] MEDS: Zoledronic Acid 5 MG 100 ML 300 MG IV (08:44)
[2020-08-04 09:11] VITALS: BP 159/63; PULSE 63
== END ==
PROVIDERS: PCP Family Medicine Geriatric Medicine; Referring Provider Internal Medicine Endocrinology, Diabetes & Metabolism; Visit Provider Internal Medicine Endocrinology, Diabetes & Metabolism
DX: M81.0 Age-related osteoporosis without current pathological fracture (principal)
CPT/HCPCS: 96365; A4216; J3489

== ENCOUNTER → 2020-08-19 09:44 | Outpatient (CLI) | payer MEDICARE, SELFPAY ==
[2020-08-04 08:27] VITALS: BMI 20.8
[2020-08-19 12:15] LABS: Absolute Lymphocyte Count 0.99 X10^3/uL (0.83-4.51); Absolute Neutrophil Count 3.2 X10^3/uL (2.0-7.7); Basophil# 0.09 X10^3/uL; Basophil% 1.7 % (0-1); Eosinophil# 0.29 X10^3/uL; Eosinophils% 5.4 % (0-5); Hematocrit 43.2 % (40-54); Hemoglobin 13.9 g/dL (13.0-16.5); Lymphocyte # 0.99 X10^3/ul (0.83-4.51); Lymphocyte % 18.3 % (19-41); Mean Corp Hgb Conc 32.2 g/dL (32-36); Mean Corpuscular Volume 93.1 fL (80-94); Mean Platelet Vol. 11.1 fl (6.2-12.0); Monocyte# 0.82 X10^3/uL; Monocyte% 15.2 % (0-10); NRBC Flagged by Analyzer 0 % (0-5); Platelet Count 244 K/mm3 (150-450); RBC Distribution Width CV 13.1 % (11.6-14.6); RBC Distribution Width SD 44.4 fl (35.1-43.9); Red Blood Count 4.64 M/mm3 (4.6-6.2); White Blood Count 5.4 K/mm3 (4.4-11.0)
[2020-08-19 12:59] LABS: ALB/GLOB Ratio 1.1 RATIO (0.9-2.4); AST(SGOT) 19 U/L (15-37); Alanine Aminotransfer ALT/SGPT 19 U/L (16-61); Albumin, Serum 3.6 g/dL (3.2-5.0); Alkaline Phosphatase 75 U/L (45-117); Anion Gap 8 (5-15); BUN 19 mg/dL (7-18); BUN/Creat Ratio 19.2 RATIO (10-20); Chloride 106 mmol/L (98-107); Creatinine, Serum 0.99 mg/dL (0.70-1.30); EST Glomerular Filtration Rate 78 mL/min (>60); Est Glom Filt Rate - Afr Amer 94 mL/min (>60); Globulin 3.2 g/dL (2.2-4.2); Glucose 101 mg/dL (74-106); Potassium 3.7 mmol/L (3.5-5.1); Protein, Total 6.8 g/dL (6.4-8.2); Sodium Level 140 mmol/L (136-145); Thyroid Stim Hormone (TSH) 0.34 uIU/mL (0.358-3.74)
[2020-08-20 11:24] LABS: T3 Uptake 39 % (33-40); T4 Free Direct 1.17 ng/dL (0.76-1.46)
[2020-08-20 12:08] LABS: Vitamin D,25 Hydroxy 33.4 ng/mL
== END ==
PROVIDERS: PCP Family Medicine Geriatric Medicine; Visit Provider Family Medicine Geriatric Medicine
DX: E55.9 Vitamin D deficiency, unspecified (principal); F52.8 Other sexual dysfunction not due to a substance or known physiological condition; I10 Essential (primary) hypertension; E03.9 Hypothyroidism, unspecified
CPT/HCPCS: 36415; 80053; 82306; 84403; 84439; 84443; 84479; 85025

== ENCOUNTER → 2020-09-17 | Outpatient (CLI) | payer MEDICARE, SELFPAY ==
[2020-09-16 05:52] VITALS: BMI 20.5
--- NOTE | 2020-09-16 14:50 | ASPS_PTH ---
PATIENT: MARGAUX NEWSOME LOC: [facility] U#:[id number] AGE/SX: 79/M ROOM: RE09/17/[address]: Dr. Micah Garcia MD : [id number] BED: DIS: 09/17/2020 SPEC #: [id number] RECD: 09/17/20 15:39 STATUS: EMELY REAdriana #: [id number] ELSA: 09/16/20 14:[address]: Micah Garcia DEPT: CYTOLOGY RECD BY: Zoila Leon ENTERED: 09/18/20 09:00 SP TYPE: ASPIRATION OTHR DR: Dr. Alexander Steiner MD Tissues: A - Thyroid gland, NOS B - Thyroid gland, NOS Procedures: Special Stain Group II Cytology Other HEADER OPERATION: Bilateral thyroid fine needle aspiration PRE-OP DIAGNOSIS: Bilateral thyroid nodules TISSUE SUBMITTED: A ? Right thyroid x6 slides, B ? Left thyroid x12 slides DIAGNOSIS CYTOLOGY A. Fine needle aspiration, right thyroid nodule (smears): Adequate for evaluation. Atypia of undetermined clinical significance. See comment. B. Fine needle aspiration, left thyroid nodule (smears): Consistent with Hurthle neoplasm with cystic change. AM:erika 09/18/2020 COMMENT A. Scattered rare atypia is present and associated with follicular cells with partial cystic change. Case has been reviewed in consultation with Dr. Valencia who concurs with the above diagnosis. IDC:SJ CYTOLOGY STUDY Slides are reviewed. CYTOLOGY GROSS A - Received are 6 smears labeled with the patient's name and designated per the requisition as right thyroid. Submitted for staining. B - Received are 12 smears labeled with the patient's name and designated per the requisition as left thyroid. Submitted for staining. / erika 09/18/2020 TC:? CPT: 51874 x2
== END | disposition home or self-care (01) ==
LOC: LABSPEC 16:28
PROVIDERS: PCP Family Medicine Geriatric Medicine; Referring Provider Surgery; Visit Provider Surgery
DX: E04.2 Nontoxic multinodular goiter (principal)
CPT/HCPCS: 88161; 88313

== ENCOUNTER 2020-10-26 05:27 | Day surgery (SDC) | payer MEDICARE, SELFPAY ==
[2020-09-23 05:59] VITALS: BMI 20.5
[2020-10-14 14:59] VITALS: BMI 20.3
--- NOTE | 2020-10-23 08:53 | EKG12_ITS ---
Test Reason : PREOP Blood Pressure : / mmHG Vent. Rate : 090 BPM Atrial Rate : 090 BPM P-R Int : 146 ms QRS Dur : 090 ms QT Int : 370 ms P-R-T Axes : 089 -71 068 degrees QTc Int : 452 ms Normal sinus rhythm Left axis deviation Poor R wave progression Abnormal ECG Confirmed by PARISH CHEN, BANDAR ([id number]), news copy editor MELANIE PARKS ([id number]) on 10/29/2020 1:16:06 PM Referred By: Micah Garcia Confirmed By:BANDAR LUGO MD
[2020-10-23 10:19] LABS: Hematocrit 44.1 % (40-54); Hemoglobin 14.3 g/dL (13.0-16.5); Mean Corp Hgb Conc 32.4 g/dL (32-36); Mean Corpuscular Hgb 30.3 pg (27.0-32.0); Mean Corpuscular Volume 93.4 fL (80-94); Mean Platelet Vol. 11.3 fl (6.2-12.0); Platelet Count 291 K/mm3 (150-450); RBC Distribution Width CV 13.7 % (11.6-14.6); RBC Distribution Width SD 47.1 fl (35.1-43.9); Red Blood Count 4.72 M/mm3 (4.6-6.2); White Blood Count 6.7 K/mm3 (4.4-11.0)
[2020-10-23 10:49] LABS: Anion Gap 4 (5-15); BUN 23 mg/dL (7-18); BUN/Creat Ratio 30.6 RATIO (10-20); Calcium,Total 9.3 mg/dL (8.5-10.1); Chloride 109 mmol/L (98-107); Creatinine, Serum 0.75 mg/dL (0.70-1.30); EST Glomerular Filtration Rate 107 mL/min (>60); Est Glom Filt Rate - Afr Amer 129 mL/min (>60); Glucose 101 mg/dL (74-106); Potassium 3.9 mmol/L (3.5-5.1); Sodium Level 141 mmol/L (136-145)
[2020-10-26] VITALS (10 sets, daily range): BP systolic 88–120; BP diastolic 53–67; PULSE 85–100; RESP 16; TEMP 36.1–36.8; O2SAT 93–99
[2020-10-26] MEDS: Lactated Ringers 1,000 ML 100 ML IV ×2 (05:35→08:01)
--- NOTE | 2020-10-26 06:35 | PCM.HP.BLA ---
History and Physical Date of Admission: 10/26/20 Intake Visit Reasons: UPDATE H & P THYROIDECTOMY 10/26 Chief Complaint: update H&P Social Sciences Research Scientist Required: No Is patient in pain?: No Allergies atorvastatin Adverse Reaction (Verified 10/14/20 14:08) Muscle aches Medications aspirin 81 mg PO DAILY 01/27/16 [History Confirmed 10/14/20] losartan 100 mg tablet 100 mg PO DAILY 04/18/19 [History Confirmed 10/14/20] terazosin 1 mg capsule 1 mg PO DAILY 04/18/19 [History Confirmed 10/14/20] ipratropium-albuterol 3 ml IH 4X/DAY PRN PRN 05/25/19 [History Confirmed 10/14/20] omeprazole 40 mg PO DAILY 05/25/19 [History Confirmed 10/14/20] albuterol sulfate 2.5 mg/0.5 mL solution for nebulization 5 mg INHALATION Q6H 09/16/20 [History Confirmed 10/14/20] calcium carbonate-vitamin D3 600 mg calcium-200 unit capsule cap PO 09/16/20 [History Confirmed 10/14/20] amlodipine 10 mg tablet 10 mg PO DAILY #90 tab 10/14/20 [Rx Confirmed 10/14/20] atorvastatin 20 mg tablet 20 mg PO DAILY #90 tab 10/14/20 [Rx Confirmed 10/14/20] PFSH Medical History Arthritis 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 COPD (chronic obstructive pulmonary disease) Coronary artery calcification Diverticulosis Essential hypertension GERD (gastroesophageal reflux disease) Kidney stones Seasonal allergies Thyroid nodule Surgical History History of arthroscopy of knee History of cataract extraction History of colonoscopy with polypectomy History of esophagogastroduodenoscopy History of needle biopsy (09/16/20) Family History Father Diabetes Hypertension CVA (cerebral vascular accident) Mother Thyroid disorder Social History Smoking Status: Former smoker quit date: 03/27/12 pack-years: 50 alcohol intake: never substance use type: does not use what type of physical activity do you participate in: none HPI: MARGAUX NEWSOME, is a 80 M who presents to the office today for an update history and physical for upcoming total thyroidectomy. Patient denies recent hospitalizations or illnesses. He notes having eye surgery 3-4 weeks ago. He states during this procedure he had bradycardia where he was given a medication to help speed up his heart. Patient states he was supposed to have a lung biopsy of a chronic nodule in his lung at [facility]. Patient was noted to have high blood pressure at that time. His blood pressure medication was changed and the medicine he was placed on made him feel off balance. He noted he was told to cut the medicine in half which did not help with his symptoms, so he stopped it altogether and returned back to what Dr. Steiner had placed him on in the beginning. Patient states he is continuing to be worked up for the lung nodule at [facility]. He was told to obtain a CT of the chest again in 6 weeks. He denies previous myocardial infarction, stroke or blood clots. Patient's previous history per Dr. Garcia: MARGAUX NEWSOME, is a 79 M who presents to the office today for ongoing consultation regarding thyroid nodules. My recent note of September 16, 2020 follows. A fine needle ultrasound-guided aspiration of bilateral thyroid nodules was performed at that time. Cytology follows. DIAGNOSIS CYTOLOGY A. Fine needle aspiration, right thyroid nodule (smears):Adequate for evaluation. Atypia of undetermined clinical significance.See comment. B. Fine needle aspiration, left thyroid nodule (smears):Consistent with Hurthle neoplasm with cystic change. MARGAUX NEWSOME, is a 79 M who presents to the office today for surgical consultation regarding abnormal thyroid imaging. The patient was being evaluated for a lung nodule. He did have COVID-19. The lung nodule still was felt to have changed but now it is remaining unchanged. There are no plans to biopsy of the lung mass. He has been evaluated at the [facility] in [place]. Further imaging is scheduled for the future. As noted below his imaging more recently detected a change in bilateral thyroid nodules. He states that he was seen at the [facility] and an attempt was made to pursue a fine-needle aspiration which by patient report was extraordinarily uncomfortable to him. That procedure had to be canceled. He then requested referral for my opinion. It is of note that September 05, 2017 I performed an ultrasound FNA of bilateral thyroid nodules. This material was said to be benign. However he has an updated thyroid ultrasound done August 27, 2020 suggesting a right mid thyroid nodule 1.1 cm that is mostly solid and TI-RADS 5. In addition there is a 3.9 x 2 x 2.8 cm mostly solid left thyroid lesion which is a Ti RADS 4 but fine-needle aspiration recommended upon size. The patient has chronic posterior neck pain. No particular problems with swallowing hoarseness cough. He otherwise did not detect a change in his thyroid size. Note per Dr. Marcelino Nolen April 18, 2019 Chief Complaint: Abnormal thyroid studies, osteoporosis Details: MARGAUX NEWSOME, is a 78 M who presents to the office today for evaluation and management of thyroid disease and osteoporosis. He has bilateral thyroid nodules. FNA done by Dr. Garcia in August of 2017 show benign nodules. Thyroid uptake and scan showed normal uptake, one cold nodule and one hot nodule. TSH in June, was 0.23 and in December, was 0.13. He states he has known about osteoporosis for years. He tried oral bisphosphonate and could not take it due to nausea. He agreed to Prolia but it was expensive. He agrees to intravenous bisphosphonate. LS spine: -2.5; Left Femoral neck -3.0, Right Femoral Neck -3.3 He is accompanied by daughter, Evelyn [facility] per Dr.Vikram Reddy 08/27/20 Ultrasound thyroid/parathyroid Right lobe measures 5.8 x 3.1 x 2.2 cm. Nodule 1 right mid lobe 1 x 0.7 x 1 cm mixed solid cystic TI-RADS 4 Right mid thyroid nodule 1.1 x 1.1 x 0.9 cm. Mostly solid. TI-RADS 5. FNA advised Left lobe measures 6.2 x 3.7 x 3.1 cm. Left mid thyroid nodule 3.9 x 2 x 2.8 cm. Mostly solid. TI-RADS 4. Fine-needle aspiration recommended Pet scan August 28, 2020 Ordered per Jenny Richardson MD, PhD Neck: Markedly hypermetabolic left thyroid nodule suspicious for malignancy. Ultrasound recommended. Chest: Mildly hypermetabolic mildly spiculated right upper lobe lung nodule suspicious for malignancy Abdomen pelvis not remarkable Extremities not remarkable September 05, 2017 DIAGNOSIS CYTOLOGY A. Right thyroid nodule, FNA (smears):Consistent with benign colloid nodule.See cytology study and comment. B. Left thyroid nodule, FNA (smears):Consistent with benign follicular nodule with focal H?rthle cell features.See cytology study and comment. 09/07/17COMMENTCorrelation with clinical, radiologic findings and appropriate follow up are necessary August 14, 2017 CLINICAL: Male, 76 years old. THYROID IMAGING STUDY TECHNIQUE: The patient was administered a 322 uCi I-123 capsule by mouth. Frontal plantar imaging of the thyroid was performed. COMPARISON STUDIES : Ultrasound thyroid 07/24/2017. PET CT 05/29/2017. CT chest 05/08/2017. FINDINGS: On the PET CT scan of 05/29/2017, there was a left-sided thyroid nodule measuring approximately 13 mm in greatest dimension exhibiting avid radiotracer uptake, hypermetabolic activity. This is a cold nodule on the thyroid scan today. This must be regarded with suspicion for neoplasm. Biopsy is recommended. There is otherwise homogeneous distribution of radiotracer within the right and the left gland. The right gland is slightly taller than the left. Thyroid uptake at 4 hours, 13.5%. Thyroid uptake at 24 hours, 28.4%. These values fall within normal ranges. NM/Thyroid Image Quant Measure IMPRESSION: 1. Normal thyroid uptake values. No evidence of hyper or hypothyroidism. 2. Cold nodule of the left thyroid gland corresponds in size and position with the hypermetabolic left thyroid nodule seen on PET/CT. These features must be regarded with suspicion for neoplasm. Biopsy is indicated. 3. On the recent ultrasound, the dominant solid nodule of the left thyroid gland measured approximately 18 x 12 x 12 mm. This corresponds with a cold nodule on today's study and with the hypermetabolic nodule on PET. Sonographic features include heterogeneous, hypoechoic, sharply circumscribed margins, oval shape, internal Doppler flow present. Based on the [place] [employer] Guidelines for assessment of thyroid nodules, this nodule falls into the intermediate suspicion pattern based on echotexture and morphology, a hypoechoic solid nodule with smooth margins. Based on size criteria, greater than 1 cm, biopsy is indicated. Electronically Signed: Ross Faye, at 15:25 EDT Tel , Service support , July 24, 2017 STUDY: THYROID ULTRASOUND REASON FOR EXAM: Male, 76 years old. Abnormal thyroid function tests TECHNIQUE: Ultrasound evaluation of the thyroid was performed with real-time and static larson-scale imaging. COMPARISON: None. FINDINGS: RIGHT LOBE: The right lobe of the thyroid gland measures 5.5 x 1.9 x 2.8 cm. There is a homogeneous echotexture. Multiple solid nodules are noted, largest contains calcifications and measures 1.0 x 0.9 x 0.9 cm. LEFT LOBE: The left lobe of the thyroid gland measures 5.2 x 2.0 x 2.7 cm. There is a homogeneous echotexture. Multiple solid nodules identified, largest measures 1.8 x 1.2 x 1.2 cm ISTHMUS: The isthmus measures 4 mm. The regional lymph nodes are normal. US/Thyroid IMPRESSION: Enlarged homogeneous thyroid gland with multiple bilateral solid hypoechoic nodules. The largest in the right lobe contains calcifications. Findings are likely sales and service representative of goiter but there are no previous studies available for comparison. Further evaluation with thyroid uptake study is recommended to assess uptake characteristics of the nodules. Electronically Signed: Rainer Rogers MD at 11:26 EDT , Service support , ROS General General: No weight change, appetite, fatigue, colon cancer, breast cancer or weakness HEENT HEENT: Yes difficulty swallowing and eye surgery; No eye injury, swollen glands or hoarseness Endo Endocrine: Yes thyroid disease; No diabetes mellitus, thyroid cancer, Hair loss, heat intolerance or cold intolerance Musc Musculoskeletal: Yes arthritis; No back problems, rheumatoid arthritis, gout or joint pain Cardio Cardiovascular: Yes high blood pressure; No murmur, pacemaker, heart disease, atrial fibrillation, heart attack, heart stent, palpitations, shortness of breat with exertion or chest pain Psych Psychiatric: No depression, anxiety or hearing voices Resp Respiratory: Yes shortness of breath, No sleep apnea, No cough, Yes COPD, Yes asthma, Yes emphysema and No wheezing Gastro Gastrointestinal: No abdominal pain, No nausea or vomiting, No diarrhea, No constipation, No blood in stool, Yes acid reflux, Yes hemorrhoids, No ulcers, No gallbladder problem and No black,tarry stools Pool Hematologic: No blood thinners, No blood disorders, No bleeding, No anemia and No blood clots Neuro Neurologic: No weakness Exam Const General: cooperative, healthy appearing, comfortable and no acute distress HENMT Head: normal to inspection Eyes General: appearance normal, both eyes and all related structures Neck Neck: normal visual inspection Neck mass: No Resp Effort & Inspection: normal respiratory effort Auscultation: clear to auscultation bilaterally Cardio Rate: regular rate Rhythm: regular rhythm GI Inspection: normal to inspection Palpation: soft Auscultation: normal bowel sounds Skin General: no rashes or lesions noted Neuro General: no focal motor deficits and CN's II-XI intact bilaterally Extrem General: normal to inspection Psych Appearance: grossly normal Affect: normal affect COVID (Procedure Consent) Procedure Criteria Procedure Criteria: Yes Elective The surgeon/proceduralist and patient have discussed in detail the risk of exposure to and/or potential harm posed by the COVID-19 virus with having a surgery/procedure at this time versus the risk of delaying the surgery/procedure. It is not possible to know either the risk of delaying the surgery or procedure or chance of getting an infection with perfect accuracy, but a joint decision was made between the patient and the surgeon/proceduralist to proceed at this time with the scheduled surgery/procedure as indicated on the consent form. Assessment and Plan Assessment and Plan (1) Nodule of left lobe of thyroid gland: Status: Acute Comment: bilateral thyroid nodules biopsy 09/16/20 Plan - Kerry HARRISON PAHenrryC: Dr. Garcia will plan to perform a total thyroidectomy. Procedure details, risks and benefits have been explained to the patient. Patient is aware be may be admitted for observation pending how procedure goes. Patient is to have a consult with cardiology today for cardiac clearance. Patient has had the opportunity to ask and have questions answered. Patient will hold his aspirin for 7 days prior to the procedure. Assessment & Plan Assessment/Plan (1) Nodule of left lobe of thyroid gland: PLAN: Total thyroidectomy. The patient is aware of the technique, benefit, risk and alternatives. He has been seen by new vehicle sales consultant Dr. 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 Medications have been changed and the patient has been monitoring his heart rate at home and it has been stable. He denies any current shortness of breath or chest pain. He has not had any neck pain. He has had no difficulty swallowing. We will proceed as noted. Micah Garcia M.D., F.A.C.S.
--- NOTE | 2020-10-26 07:12 | EX.PCM.DISCH ---
Discharge Instructions Procedure General Surgery Diet Discharge Diet: Light diet - advance as tolerated (if you have questions about your diet instructions, please talk to you doctor.) Activity Discharge Activity: May Not Drive (for 3-5 days or while taking narcotic pain medicine.) May shower in (days): 1 Lifting Restrictions: 10 pounds Dressing / Incision Call your doctor if your incision/area has: Continuous Slow Oozing, Sudden Increased Bleeding, Increased Pain/ Swelling, Increased Redness and Foul Smelling Discharge Call your doctor if you observe: Fever of 101 or Higher Suture Line Care: Avoid Pulling/Pushing and Avoid Pinching/Bending Additional Dressing/Incision Instructions:: Change or remove dressing in 4 days. Leave steri-strips in place for 1 week. Follow Up Care Please Follow Up With: Micah Garcia MD When: Call [phone] to make an appointment to be seen in about 10 days. Test Results: Test results from this visit will be discussed in further detail at your follow-up appointment, if applicable. Discharge Plan Admission Attending Provider: Micah Garcia Primary Care Provider: Alexander Steiner Chi Discharge Orders/Prescriptions Prescriptions: No Action losartan 100 mg tablet 100 mg PO DAILY RF: 0 terazosin 1 mg capsule 1 mg PO DAILY RF: 0 albuterol sulfate 2.5 mg/0.5 mL solution for nebulization 5 mg inhalation DAILY RF: 0 Calcium 600 + D(3) 600 mg calcium- 200 unit capsule 1 cap PO DAILY RF: 0 amlodipine 10 mg tablet 10 mg PO DAILY Qty: 90 RF: 3 atorvastatin 20 mg tablet 20 mg PO DAILY Qty: 90 RF: 2 aspirin 81 MG tablet,delayed release (DR/EC) 81 mg PO DAILY RF: 0 omeprazole 40 MG capsule,delayed release(DR/EC) 40 mg PO DAILY RF: 0
--- NOTE | 2020-10-26 07:30 | THYROID_PTH ---
PATIENT: MARGAUX NEWSOME [place] [facility] [id number] AGE/SX: 80/M ROOM: RE10/26/[address]: Dr. Micah Garcia MD : [id number] BED: DIS: 10/26/2020 SPEC #: [id number] RECD: 10/26/20 11:29 STATUS: EMELY ORTEGA #: [id number] ELSA: 10/26/20 07:[address]: Micah Garcia DEPT: SURGICAL PATHOLOGY RECD BY: Astrid Lord ENTERED: 10/26/20 13:17 SP TYPE: THYROID OTHR DR: Dr. 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 See comment. SJ:rg 10/28/2020 COMMENT Colloid nodule also shows Hurthle cell features. Please make reference to previous specimen ([id number]) fine needle aspiration, right thyroid nodule with diagnosis of ?atypia of undetermined clinical significance? and fine needle aspiration, left thyroid nodule with diagnosis of ?consistent with Hurthle cell neoplasm with cystic changes.? Case has been reviewed in consultation with Dr. Mckeon who concurs with the above diagnosis. IDC:AM MICROSCOPIC DESCRIPTION Slides are reviewed. GROSS DESCRIPTION Received in fixative is one container labeled with the patient's name and designated bilateral thyroid lobes. The specimen consists of a total thyroidectomy specimen weighing 39.8 gm and the right lobe measures 5 x 3.5 x 2 cm and the left lobe measures 5.5 x 3.5 x 4 cm. A suture is present in the left lobe. The isthmus measures 1.5 x 1 x 0.5 cm. No external parathyroid tissue is identified. The specimen is inked as follows: posterior surface right lobe, left lobe and isthmus - black, anterior surface right lobe - blue, anterior surface left lobe - green, anterior surface isthmus - yellow. Sections of the right isthmus do not reveal any mass lesion. Sections of the right lobe reveal multiple colloid nodules, largest measuring 0.7 cm in greatest dimension. Sections of the left lobe reveal a single circumscribed nodule occupying most of the left lobe measuring 3 x 2.5 x 2.5 cm. Dental Hy[employer] Instructor sections are submitted in 17 cassettes as follows: 1 - isthmus, entirely submitted, 2-7 - right lobe, 8-17 - left lobe (9-16 contain the entire nodule from superior to inferior portion of the lobe, 17 - most inferior portion of the left lobe and 8 contains the most superior portion of the left lobe). The nodule is submitted in entirety. / FARHAT:erika 10/27/20 TC:1 CPT: 93468
[2020-10-26] MEDS: Bupivacaine Mpf 0.5% 30 ML VIAL (09:26)
--- NOTE | 2020-10-26 09:28 | PCM.OPRPT ---
Problems Associated Problem List Diagnoses (1) Mass of upper lobe of right lung: (2) Nodule of left lobe of thyroid gland: Report of Operation Date of Procedure: 10/26/20 Pre-Operative Diagnosis: Bilateral thyroid nodules with atypia on fine-needle aspiration Post-Operative Diagnosis: Pathology pending Surgery/Procedure Performed:: Total thyroidectomy Description of Surgical Findings:: Timeout and informed consent was obtained. 80-year-old gentleman was taken down from place upon the table underwent general endotracheal intubation anesthesia. Nerve monitoring endotracheal tube utilized. The superior anterior chest was prepped with alcohol. Round wire and sensing wire was inserted subcutaneously. The neck was sterilely prepped and draped. Clean procedure no antibiotics required. A transverse suprasternal incision was created sharp dissection carried down through the subcu tissue platysmal flaps were raised strap muscles were incised vertically left lobe was addressed first. The left lobe was quite enlarged and tedious dissection was used to free the gland initially inferiorly then medially and then superiorly synchronously then was able to rotate the palate anteriorly and complete the dissection. Superior near inferior thyroidal vessels were secured with harmonic scalpel where needed with hemoclips. The gland was then carefully rotated and the course of the recurrent laryngeal nerve identified. Dissection was worn off the anterior surface of the trachea. The ligament of Gupta was transected. Hemostasis was intact. The course of the recurrent ventral nerve was identified and preserved. Parathyroid tissue was preserved. Then addressed the right lobe. It was smaller in size than the left. Superior pole vessels were secured in. Full vessels were secured with the gland was rotated the course of the recurrent laryngeal nerve identified. The gland was then released from the ligament of Gupta and the anterior surface of the trachea. A suture was placed in the anterior superior aspect of the left lobe. Hemostasis was assured. Fibrillar was placed bilaterally in the neck. Strap muscles were approximated midline with interrupted 3-0 Vicryl. Platysma was approximated with the same. Skin edges approximated opted 5-0 Vicryl subdermal stitches. The periincisional area is anesthetized with 0.5% Marcaine. Total 6 cc was used. Dermabond was applied. Telfa tape dressings applied. Specimen total thyroid. Drains none. Blood loss minimal. The patient was taken to recovery area in satisfactory addition without apparent complication Micah Garcia M.D., F.A.C.S. Surgeon: Micah Garcia
[2020-10-26 15:24] LABS: Calcium,Total 8.7 mg/dL (8.5-10.1)
== END 2020-10-26 15:50 | disposition home or self-care (01) ==
LOC: SDC 05:27 → AC 05:27 → ACINP 08:31 → MS3 11:17
PROVIDERS: PCP Family Medicine Geriatric Medicine; Referring Provider Surgery; Visit Provider Surgery
PROC: (CPT 60240; principal; 2020-10-26 07:15)
DX: D34 Benign neoplasm of thyroid gland (principal); I10 Essential (primary) hypertension; J44.9 Chronic obstructive pulmonary disease, unspecified; K21.9 Gastro-esophageal reflux disease without esophagitis; I25.10 Atherosclerotic heart disease of native coronary artery without angina pectoris; M19.90 Unspecified osteoarthritis, unspecified site; E78.00 Pure hypercholesterolemia, unspecified; Z87.19 Personal history of other diseases of the digestive system; Z87.442 Personal history of urinary calculi; Z79.82 Long term (current) use of aspirin; Z79.899 Other long term (current) drug therapy; Z87.891 Personal history of nicotine dependence
CPT/HCPCS: 00320; 60240; 36415; 80048; 82310; 85027; 88307; 93005; J7120; J2405

== ENCOUNTER → 2021-01-01 10:05 | Outpatient (CLI) | payer MEDICARE, SELFPAY ==
[2021-01-01 12:57] LABS: T4 Free Direct 1.25 ng/dL (0.76-1.46); Thyroid Stim Hormone (TSH) 8.78 uIU/mL (0.358-3.74)
[2021-01-01 13:01] LABS: Vitamin D,25 Hydroxy 28.5 ng/mL
== END ==
PROVIDERS: PCP Family Medicine Geriatric Medicine; Referring Provider Internal Medicine Endocrinology, Diabetes & Metabolism; Visit Provider Internal Medicine Endocrinology, Diabetes & Metabolism
DX: E78.2 Mixed hyperlipidemia (principal); E89.0 Postprocedural hypothyroidism; E55.9 Vitamin D deficiency, unspecified
CPT/HCPCS: 36415; 82306; 84439; 84443

== ENCOUNTER → 2021-02-24 09:46 | Outpatient (CLI) | payer MEDICARE, SELFPAY ==
[2021-02-24 11:36] LABS: Absolute Neutrophil Count 4.8 X10^3/uL (2.0-7.7); Basophil# 0.11 X10^3/uL; Basophil% 1.5 % (0-1); Eosinophil# 0.18 X10^3/uL; Eosinophils% 2.4 % (0-5); Hematocrit 43.8 % (40-54); Hemoglobin 14.4 g/dL (13.0-16.5); Lymphocyte % 21.3 % (19-41); Mean Corp Hgb Conc 32.9 g/dL (32-36); Mean Corpuscular Hgb 29.9 pg (27.0-32.0); Mean Corpuscular Volume 91.1 fL (80-94); Mean Platelet Vol. 11.5 fl (6.2-12.0); Monocyte# 0.84 X10^3/uL; Monocyte% 11.2 % (0-10); NRBC Flagged by Analyzer 0 % (0-5); Neutrophil # 4.77 X10^3/uL (2.7-7.7); Neutrophil % 63.3 % (47-70); Platelet Count 269 K/mm3 (150-450); RBC Distribution Width CV 13.4 % (11.6-14.6); RBC Distribution Width SD 45.1 fl (35.1-43.9); Red Blood Count 4.81 M/mm3 (4.6-6.2); White Blood Count 7.5 K/mm3 (4.4-11.0)
[2021-02-24 11:58] LABS: AST(SGOT) 21 U/L (15-37); Alanine Aminotransfer ALT/SGPT 26 U/L (16-61); Albumin, Serum 4.2 g/dL (3.2-5.0); Alkaline Phosphatase 97 U/L (45-117); Anion Gap 12 (5-15); BUN 17 mg/dL (7-18); BUN/Creat Ratio 19.1 RATIO (10-20); Calcium,Total 9.5 mg/dL (8.5-10.1); Chloride 105 mmol/L (98-107); Creatinine, Serum 0.89 mg/dL (0.70-1.30); EST Glomerular Filtration Rate 88 mL/min (>60); Est Glom Filt Rate - Afr Amer 106 mL/min (>60); Globulin 4.1 g/dL (2.2-4.2); Glucose 95 mg/dL (74-106); Potassium 3.8 mmol/L (3.5-5.1); Protein, Total 8.3 g/dL (6.4-8.2); Sodium Level 140 mmol/L (136-145); Thyroid Stim Hormone (TSH) 6.54 uIU/mL (0.358-3.74)
[2021-02-28 17:07] LABS: Testosterone, Free 8.15 ng/dL (5.00-21.00)
[2021-03-01 08:59] LABS: Testosterone, % Free 1.15 % (1.50-4.20); Testosterone, Total 709 ng/dL (264-916)
== END ==
PROVIDERS: PCP Family Medicine Geriatric Medicine; Visit Provider Family Medicine Geriatric Medicine
DX: I10 Essential (primary) hypertension (principal); F52.8 Other sexual dysfunction not due to a substance or known physiological condition; E55.9 Vitamin D deficiency, unspecified
CPT/HCPCS: 36415; 80053; 82306; 84402; 84403; 84443; 85025

== ENCOUNTER → 2021-03-15 14:07 | Outpatient (CLI) | payer MEDICARE, SELFPAY ==
[2021-03-15 15:54] LABS: Thyroid Stim Hormone (TSH) 4.05 uIU/mL (0.358-3.74)
== END ==
PROVIDERS: PCP Family Medicine Geriatric Medicine; Visit Provider Internal Medicine Endocrinology, Diabetes & Metabolism
DX: E89.0 Postprocedural hypothyroidism (principal)
CPT/HCPCS: 36415; 84439; 84443

== ENCOUNTER 2021-05-11 10:57 | Outpatient (CLI) | payer MEDICARE, SELFPAY ==
[2021-05-11 12:40] LABS: T4 Free Direct 1.22 ng/dL (0.76-1.46); Thyroid Stim Hormone (TSH) 6.17 uIU/mL (0.358-3.74)
== END 2021-05-11 23:59 | disposition home or self-care (01) ==
LOC: BIMLAB 10:58
PROVIDERS: PCP Family Medicine Geriatric Medicine; Referring Provider Internal Medicine Endocrinology, Diabetes & Metabolism; Visit Provider Internal Medicine Endocrinology, Diabetes & Metabolism
DX: E89.0 Postprocedural hypothyroidism (principal)
CPT/HCPCS: 36415; 84439; 84443

== ENCOUNTER 2021-07-09 11:44 | Outpatient (CLI) | payer MEDICARE, SELFPAY ==
[2021-07-09 13:28] LABS: Vitamin D,25 Hydroxy 39.2 ng/mL
[2021-07-09 13:40] LABS: ALB/GLOB Ratio 1.1 RATIO (0.9-2.4); AST(SGOT) 21 U/L (15-37); Alanine Aminotransfer ALT/SGPT 21 U/L (16-61); Albumin, Serum 3.9 g/dL (3.2-5.0); Alkaline Phosphatase 84 U/L (45-117); Anion Gap 5 (5-15); BUN 12 mg/dL (7-18); BUN/Creat Ratio 14.9 RATIO (10-20); Calcium,Total 8.7 mg/dL (8.5-10.1); Chloride 111 mmol/L (98-107); Creatinine, Serum 0.81 mg/dL (0.70-1.30); EST Glomerular Filtration Rate 98 mL/min (>60); Est Glom Filt Rate - Afr Amer 119 mL/min (>60); Globulin 3.4 g/dL (2.2-4.2); Glucose 96 mg/dL (74-106); Protein, Total 7.3 g/dL (6.4-8.2); Sodium Level 139 mmol/L (136-145); T4 Free Direct 1.35 ng/dL (0.76-1.46); Thyroid Stim Hormone (TSH) 3.05 uIU/mL (0.358-3.74)
== END 2021-07-09 23:59 | disposition home or self-care (01) ==
LOC: BIMLAB 11:45
PROVIDERS: Nurse Practitioner Family; PCP Family Medicine Geriatric Medicine; Visit Provider Internal Medicine Endocrinology, Diabetes & Metabolism
DX: M81.0 Age-related osteoporosis without current pathological fracture (principal); E89.0 Postprocedural hypothyroidism
CPT/HCPCS: 36415; 80053; 82306; 84439; 84443

== ENCOUNTER → 2021-08-25 | Outpatient (CLI) | payer MEDICARE, SELFPAY ==
[2021-08-25 09:45] LABS: Absolute Lymphocyte Count 1.72 X10^3/uL (0.83-4.51); Absolute Neutrophil Count 4.1 X10^3/uL (2.0-7.7); Basophil# 0.08 X10^3/uL; Basophil% 1.2 % (0-1); Eosinophil# 0.32 X10^3/uL; Eosinophils% 4.6 % (0-5); Hematocrit 40.2 % (40-54); Hemoglobin 13.1 g/dL (13.0-16.5); Lymphocyte # 1.72 X10^3/ul (0.83-4.51); Mean Corp Hgb Conc 32.6 g/dL (32-36); Mean Corpuscular Hgb 28.5 pg (27.0-32.0); Mean Corpuscular Volume 87.4 fL (80-94); Mean Platelet Vol. 10.5 fl (6.2-12.0); Monocyte# 0.69 X10^3/uL; NRBC Flagged by Analyzer 0 % (0-5); Neutrophil # 4.05 X10^3/uL (2.7-7.7); Neutrophil % 58.8 % (47-70); Platelet Count 286 K/mm3 (150-450); RBC Distribution Width CV 14.1 % (11.6-14.6); White Blood Count 6.9 K/mm3 (4.4-11.0)
[2021-08-25 10:41] LABS: AST(SGOT) 18 U/L (15-37); Alanine Aminotransfer ALT/SGPT 20 U/L (16-61); Albumin, Serum 3.6 g/dL (3.2-5.0); Alkaline Phosphatase 102 U/L (45-117); Anion Gap 10 (5-15); BUN 12 mg/dL (7-18); BUN/Creat Ratio 14.8 RATIO (10-20); Calcium,Total 9.2 mg/dL (8.5-10.1); Chloride 107 mmol/L (98-107); Creatinine, Serum 0.81 mg/dL (0.70-1.30); EST Glomerular Filtration Rate 97 mL/min (>60); Est Glom Filt Rate - Afr Amer 118 mL/min (>60); Globulin 3.7 g/dL (2.2-4.2); Glucose 106 mg/dL (74-106); Protein, Total 7.3 g/dL (6.4-8.2); Sodium Level 142 mmol/L (136-145); Thyroid Stim Hormone (TSH) 4.99 uIU/mL (0.358-3.74)
[2021-08-25 10:45] LABS: Vitamin D,25 Hydroxy 42.3 ng/mL
== END | disposition home or self-care (01) ==
LOC: POLAB3 08:51
PROVIDERS: PCP Family Medicine Geriatric Medicine; Visit Provider Family Medicine Geriatric Medicine
DX: I10 Essential (primary) hypertension (principal); E55.9 Vitamin D deficiency, unspecified; F52.8 Other sexual dysfunction not due to a substance or known physiological condition
CPT/HCPCS: 36415; 80053; 82306; 84403; 84443; 85025

== ENCOUNTER → 2021-08-26 | Outpatient (CLI) | payer MEDICARE, SELFPAY ==
[2021-08-26] MEDS: 0.9% NaCl Peripheral Flush Adult/Peds IV (13:33)
[2021-08-26] MEDS: Zoledronic Acid 5 MG 100 ML 300 MG IV (13:37)
[2021-08-26 13:42] VITALS: BP 141/60; PULSE 86; RESP 16; TEMP 36.6; O2SAT 94; BMI 20.7
== END | disposition home or self-care (01) ==
LOC: MEDOUTP 13:26
PROVIDERS: PCP Family Medicine Geriatric Medicine; Referring Provider Internal Medicine Endocrinology, Diabetes & Metabolism; Visit Provider Internal Medicine Endocrinology, Diabetes & Metabolism
DX: M81.0 Age-related osteoporosis without current pathological fracture (principal)
CPT/HCPCS: 96365; A4216; J3489

== ENCOUNTER 2022-02-23 09:17 | Outpatient (CLI) | payer MEDICARE, SELFPAY ==
[2022-02-23 13:16] LABS: Absolute Lymphocyte Count 1.36 X10^3/uL (0.83-4.51); Absolute Neutrophil Count 4.8 X10^3/uL (2.0-7.7); Basophil# 0.08 X10^3/uL; Eosinophil# 0.41 X10^3/uL; Eosinophils% 5.2 % (0-5); Hematocrit 40.4 % (40-54); Hemoglobin 12.8 g/dL (13.0-16.5); Lymphocyte # 1.36 X10^3/ul (0.83-4.51); Lymphocyte % 17.4 % (19-41); Mean Corp Hgb Conc 31.7 g/dL (32-36); Mean Corpuscular Hgb 29.2 pg (27.0-32.0); Mean Corpuscular Volume 92.2 fL (80-94); Monocyte# 1.19 X10^3/uL; Monocyte% 15.2 % (0-10); NRBC Flagged by Analyzer 0 % (0-5); Neutrophil # 4.76 X10^3/uL (2.7-7.7); Neutrophil % 60.9 % (47-70); Platelet Count 264 K/mm3 (150-450); RBC Distribution Width CV 15.3 % (11.6-14.6); RBC Distribution Width SD 52.1 fl (35.1-43.9); Red Blood Count 4.38 M/mm3 (4.6-6.2); White Blood Count 7.8 K/mm3 (4.4-11.0)
[2022-02-23 13:46] LABS: Vitamin D,25 Hydroxy 28.4 ng/mL
[2022-02-23 13:56] LABS: ALB/GLOB Ratio 1.2 RATIO (0.9-2.4); AST(SGOT) 19 U/L (15-37); Alanine Aminotransfer ALT/SGPT 18 U/L (16-61); Albumin, Serum 3.8 g/dL (3.2-5.0); Alkaline Phosphatase 91 U/L (45-117); Anion Gap 10 (5-15); BUN 12 mg/dL (7-18); BUN/Creat Ratio 15.2 RATIO (10-20); Calcium,Total 8.9 mg/dL (8.5-10.1); Chloride 110 mmol/L (98-107); Cholesterol 160 mg/dL (200); Creatinine, Serum 0.79 mg/dL (0.70-1.30); EST Glomerular Filtration Rate 101 mL/min (>60); Est Glom Filt Rate - Afr Amer 122 mL/min (>60); Globulin 3.3 g/dL (2.2-4.2); Glucose 87 mg/dL (74-106); High Density Lipoprotein 78 mg/dL; Potassium 3.4 mmol/L (3.5-5.1); Protein, Total 7.1 g/dL (6.4-8.2); Sodium Level 144 mmol/L (136-145); Triglycerides 56 mg/dL; Very Low Density Lipoprotein 11 mg/dL (5-40)
[2022-02-23 14:12] LABS: Thyroid Stim Hormone (TSH) 5.93 uIU/mL (0.358-3.74)
== END 2022-02-23 23:59 | disposition home or self-care (01) ==
LOC: POLAB3 09:17
PROVIDERS: Internal Medicine Endocrinology, Diabetes & Metabolism; PCP Family Medicine Geriatric Medicine; Visit Provider Family Medicine Geriatric Medicine
DX: I10 Essential (primary) hypertension (principal); E55.9 Vitamin D deficiency, unspecified; E78.2 Mixed hyperlipidemia; E89.0 Postprocedural hypothyroidism
CPT/HCPCS: 36415; 80053; 80061; 82306; 84439; 84443; 85025

== ENCOUNTER → 2022-07-16 | Outpatient (CLI) | payer MEDICARE, SELFPAY | END | disposition home or self-care (01) | PROVIDERS: PCP Family Medicine Geriatric Medicine; Referring Provider Urology; Visit Provider Urology | DX: Z12.5 Encounter for screening for malignant neoplasm of prostate (principal) | CPT/HCPCS: 36415; 84153; G0103 ==

== ENCOUNTER → 2022-08-09 | Outpatient (CLI) | payer MEDICARE, SELFPAY ==
--- NOTE | 2022-08-09 10:39 | BD_ITS ---
STUDY: DUAL ENERGY X-RAY ABSORPTIOMETRY / DXA REASON FOR EXAM: Male, 81 years old. Compare 2019 TECHNIQUE: Bone Mineral Density (BMD) measurements of lumbar spine and bilateral hips were obtained. COMPARISON: Comparison is made with prior study of May 24, 2018. FINDINGS: Lumbar Spine (L1-L4): g/cm2 (0.782) / T-score (-2.8) / Z-score (-1.6) Findings are suggestive of osteoporosis with a high fracture risk. Left Femur Total: g/cm2 (0.729) / T-score (-2.0) / Z-score (-1.0) Left Femoral Neck: g/cm2 (0.569) / T-score (-2.7) / Z-score (-1.1) Right Femur Total: g/cm2 (0.734) / T-score (-2.0) / Z-score (-0.9) Right Femoral Neck: g/cm2 (0.554) / T-score (-2.8) / Z-score (-1.3) The T-Scores on the most recent prior examination were: Lumbar Spine (L1-L4): There has been worsening of bone density since the previous examination. Left Femur Total: which represents an improvement of 5.3%. Right Femur Total: which represents an improvement of 9.4%. BD/Dexa Bone Density Study IMPRESSION: The patient is considered osteoporotic as outlined below according to World Jared Organization (WHO) criteria with a high fracture risk. There has been improvement of bone density since the previous examination. Reference Information: The T-score is the number of standard deviations above or below the standard which is normal for young adults at their peak bone mineral density. The World Health Organization (WHO) interprets the T-scores as follows: Above -1 Normal bone density Between -1 and -2.5 Osteopenia Equal to / or below -2.5 Osteoporosis As a practical clinical guideline, osteopenia may be graded as follows: Mild -1 through -1.5 Moderate -1.6 through -2.0 Severe -2.1 through -2.4 The Z-score is the number of standard deviations above or below age-matched controls. A Z-score of less than -1.5 would be considered abnormal. References: 1. NIH Osteoporosis and Related Bone Diseases www osteo.org 2. International Society for Clinical Densitometry www iscd.org 3. National Osteoporosis Foundation www nof.org Electronically Signed: Piyush Knowles MD at 13:35 EDT ,
== END | disposition home or self-care (01) ==
LOC: OPBD 10:32
PROVIDERS: PCP Family Medicine Geriatric Medicine; Referring Provider Internal Medicine Endocrinology, Diabetes & Metabolism; Visit Provider Internal Medicine Endocrinology, Diabetes & Metabolism
DX: M81.0 Age-related osteoporosis without current pathological fracture (principal)
CPT/HCPCS: 77080

== ENCOUNTER 2022-08-26 08:56 | Outpatient (CLI) | payer MEDICARE, SELFPAY ==
[2022-08-26 09:17] VITALS: BP 131/51; PULSE 85; RESP 16; TEMP 35.7; O2SAT 98; BMI 20.3
[2022-08-26] MEDS: Zoledronic Acid 5 MG 100 ML 300 MG IV (09:24)
[2022-08-26] MEDS: 0.9% NaCl IVPB Med Flush (250 mL) 15 ML IV (09:25)
[2022-08-26 09:40] LABS: ALB/GLOB Ratio 1.2 RATIO (0.9-2.4); AST(SGOT) 17 U/L (15-37); Alanine Aminotransfer ALT/SGPT 20 U/L (16-61); Albumin, Serum 3.9 g/dL (3.2-5.0); Alkaline Phosphatase 83 U/L (45-117); Anion Gap 8 (5-15); BUN 13 mg/dL (7-18); BUN/Creat Ratio 16.3 RATIO (10-20); Calcium,Total 8.8 mg/dL (8.5-10.1); Chloride 113 mmol/L (98-107); EST Glomerular Filtration Rate 99 mL/min (>60); Est Glom Filt Rate - Afr Amer 120 mL/min (>60); Estimated Creatinine Clearance 62.45 ml/min; Globulin 3.2 g/dL (2.2-4.2); Glucose 112 mg/dL (74-106); Potassium 3.7 mmol/L (3.5-5.1); Protein, Total 7.1 g/dL (6.4-8.2); Sodium Level 143 mmol/L (136-145); T4 Free Direct 1.23 ng/dL (0.76-1.46); Thyroid Stim Hormone (TSH) 4.95 uIU/mL (0.358-3.74)
[2022-08-26 09:54] VITALS: BP 123/48; PULSE 65; RESP 16; TEMP 35.7; O2SAT 99
[2022-08-26 10:22] LABS: Vitamin D,25 Hydroxy 35.2 ng/mL
== END 2022-08-26 08:57 | disposition home or self-care (01) ==
PROVIDERS: PCP Family Medicine Geriatric Medicine; Referring Provider Internal Medicine Endocrinology, Diabetes & Metabolism; Visit Provider Internal Medicine Endocrinology, Diabetes & Metabolism
DX: M81.0 Age-related osteoporosis without current pathological fracture (principal); E89.0 Postprocedural hypothyroidism; E55.9 Vitamin D deficiency, unspecified; E78.2 Mixed hyperlipidemia
CPT/HCPCS: 96365; 36415; 80053; 82306; 84439; 84443; J7050; J3489

== ENCOUNTER → 2022-08-31 | Outpatient (CLI) | payer MEDICARE, SELFPAY ==
[2022-08-31 11:24] LABS: Absolute Lymphocyte Count 0.84 X10^3/uL (0.83-4.51); Absolute Neutrophil Count 5.5 X10^3/uL (2.0-7.7); Basophil# 0.08 X10^3/uL; Basophil% 1.1 % (0-1); Eosinophil# 0.12 X10^3/uL; Eosinophils% 1.7 % (0-5); Hematocrit 38.5 % (40-54); Hemoglobin 12.2 g/dL (13.0-16.5); Lymphocyte # 0.84 X10^3/ul (0.83-4.51); Lymphocyte % 11.6 % (19-41); Mean Corp Hgb Conc 31.7 g/dL (32-36); Mean Corpuscular Hgb 27.9 pg (27.0-32.0); Mean Corpuscular Volume 88.1 fL (80-94); Mean Platelet Vol. 10.7 fl (6.2-12.0); Monocyte# 0.66 X10^3/uL; Monocyte% 9.1 % (0-10); NRBC Flagged by Analyzer 0 % (0-5); Neutrophil # 5.53 X10^3/uL (2.7-7.7); Neutrophil % 76.2 % (47-70); Platelet Count 289 K/mm3 (150-450); RBC Distribution Width CV 16.5 % (11.6-14.6); RBC Distribution Width SD 53.6 fl (35.1-43.9); Red Blood Count 4.37 M/mm3 (4.6-6.2); White Blood Count 7.3 K/mm3 (4.4-11.0)
[2022-08-31 11:48] LABS: Vitamin D,25 Hydroxy 42.4 ng/mL
[2022-08-31 11:55] LABS: AST(SGOT) 17 U/L (15-37); Alanine Aminotransfer ALT/SGPT 18 U/L (16-61); Albumin, Serum 3.8 g/dL (3.2-5.0); Alkaline Phosphatase 98 U/L (45-117); Anion Gap 7 (5-15); BUN 15 mg/dL (7-18); BUN/Creat Ratio 19.1 RATIO (10-20); Calcium,Total 9.1 mg/dL (8.5-10.1); Chloride 110 mmol/L (98-107); Cholesterol 149 mg/dL (200); Creatinine, Serum 0.78 mg/dL (0.70-1.30); EST Glomerular Filtration Rate 101 mL/min (>60); Est Glom Filt Rate - Afr Amer 123 mL/min (>60); Globulin 3.7 g/dL (2.2-4.2); Glucose 124 mg/dL (74-106); High Density Lipoprotein 81 mg/dL; Potassium 3.7 mmol/L (3.5-5.1); Protein, Total 7.5 g/dL (6.4-8.2); Sodium Level 140 mmol/L (136-145); Thyroid Stim Hormone (TSH) 4.32 uIU/mL (0.358-3.74); Triglycerides 40 mg/dL; Very Low Density Lipoprotein 8 mg/dL (5-40)
== END | disposition home or self-care (01) ==
PROVIDERS: PCP Family Medicine Geriatric Medicine; Referring Provider Family Medicine Geriatric Medicine; Visit Provider Family Medicine Geriatric Medicine
DX: I10 Essential (primary) hypertension (principal); E55.9 Vitamin D deficiency, unspecified
CPT/HCPCS: 36415; 80053; 80061; 82306; 84443; 85025

== ENCOUNTER → 2022-11-01 | Outpatient (CLI) | payer MEDICARE, SELFPAY ==
[2022-11-01 13:08] LABS: Thyroid Stim Hormone (TSH) 7.41 uIU/mL (0.358-3.74)
== END | disposition home or self-care (01) ==
LOC: POLAB3 10:03
PROVIDERS: PCP Family Medicine Geriatric Medicine; Visit Provider Family Medicine Geriatric Medicine
DX: E03.9 Hypothyroidism, unspecified (principal)
CPT/HCPCS: 36415; 84443

== ENCOUNTER → 2023-03-02 | Outpatient (CLI) | payer MEDICARE, SELFPAY ==
[2023-03-02 11:21] LABS: Absolute Lymphocyte Count 0.81 X10^3/uL (0.83-4.51); Absolute Neutrophil Count 2.7 X10^3/uL (2.0-7.7); Basophil% 2.2 % (0-1); Eosinophil# 0.23 X10^3/uL; Eosinophils% 5.1 % (0-5); Hematocrit 36.2 % (40-54); Hemoglobin 10.9 g/dL (13.0-16.5); Lymphocyte # 0.81 X10^3/ul (0.83-4.51); Lymphocyte % 17.9 % (19-41); Mean Corp Hgb Conc 30.1 g/dL (32-36); Mean Corpuscular Hgb 24.8 pg (27.0-32.0); Mean Corpuscular Volume 82.3 fL (80-94); Mean Platelet Vol. 10.3 fl (6.2-12.0); Monocyte# 0.68 X10^3/uL; NRBC Flagged by Analyzer 0 % (0-5); Neutrophil % 59.6 % (47-70); Platelet Count 247 K/mm3 (150-450); RBC Distribution Width CV 16.3 % (11.6-14.6); RBC Distribution Width SD 49.2 fl (35.1-43.9); White Blood Count 4.5 K/mm3 (4.4-11.0)
[2023-03-02 11:36] LABS: Vitamin D,25 Hydroxy 35.7 ng/mL
[2023-03-02 11:42] LABS: ALB/GLOB Ratio 1.1 RATIO (0.9-2.4); AST(SGOT) 18 U/L (15-37); Alanine Aminotransfer ALT/SGPT 17 U/L (16-61); Albumin, Serum 3.6 g/dL (3.2-5.0); Alkaline Phosphatase 79 U/L (45-117); Anion Gap 7 (5-15); BUN 11 mg/dL (7-18); BUN/Creat Ratio 15.8 RATIO (10-20); Calcium,Total 8.1 mg/dL (8.5-10.1); Chloride 110 mmol/L (98-107); Cholesterol 146 mg/dL (200); EST Glomerular Filtration Rate 116 mL/min (>60); Est Glom Filt Rate - Afr Amer 140 mL/min (>60); Globulin 3.4 g/dL (2.2-4.2); Glucose 101 mg/dL (74-106); High Density Lipoprotein 74 mg/dL; Potassium 3.7 mmol/L (3.5-5.1); Sodium Level 140 mmol/L (136-145); Thyroid Stim Hormone (TSH) 0.57 uIU/mL (0.358-3.74); Triglycerides 53 mg/dL; Very Low Density Lipoprotein 11 mg/dL (5-40)
== END | disposition home or self-care (01) ==
LOC: POLAB3 09:14
PROVIDERS: PCP Family Medicine Geriatric Medicine; Visit Provider Family Medicine Geriatric Medicine
DX: I10 Essential (primary) hypertension (principal); E78.5 Hyperlipidemia, unspecified; E55.9 Vitamin D deficiency, unspecified
CPT/HCPCS: 36415; 80053; 80061; 82306; 84443; 85025

== ENCOUNTER → 2023-03-03 | Outpatient (CLI) | payer MEDICARE, SELFPAY ==
[2023-03-03 11:42] LABS: Absolute Lymphocyte Count 0.75 X10^3/uL (0.83-4.51); Absolute Neutrophil Count 3.9 X10^3/uL (2.0-7.7); Basophil% 1.8 % (0-1); Eosinophil# 0.16 X10^3/uL; Eosinophils% 2.9 % (0-5); Hematocrit 35.8 % (40-54); Hemoglobin 11.1 g/dL (13.0-16.5); Lymphocyte # 0.75 X10^3/ul (0.83-4.51); Lymphocyte % 13.7 % (19-41); Mean Corpuscular Hgb 25.2 pg (27.0-32.0); Mean Corpuscular Volume 81.4 fL (80-94); Mean Platelet Vol. 10.6 fl (6.2-12.0); NRBC Flagged by Analyzer 0 % (0-5); Neutrophil # 3.85 X10^3/uL (2.7-7.7); Neutrophil % 70.4 % (47-70); Platelet Count 255 K/mm3 (150-450); RBC Distribution Width CV 16.3 % (11.6-14.6); RBC Distribution Width SD 48.5 fl (35.1-43.9); RET-HE 26.9 pg (30-35); Reticulocyte Count 1.01 % (0.5-1.5); White Blood Count 5.5 K/mm3 (4.4-11.0)
[2023-03-03 12:00] LABS: Vitamin B12 536 pg/mL (211-911)
[2023-03-03 12:13] LABS: Ferritin 7 ng/mL (26-388); Iron 16 ug/dL (65-175); Iron Binding Capacity,Total 486 ug/dL (250-450); PERCENT IRON SATURATION 3.3 % (15.0-55.0)
== END | disposition home or self-care (01) ==
PROVIDERS: PCP Family Medicine Geriatric Medicine; Visit Provider Family Medicine Geriatric Medicine
DX: D64.9 Anemia, unspecified (principal)
CPT/HCPCS: 36415; 82607; 82728; 82746; 83540; 83550; 85025; 85045

== ENCOUNTER → 2023-03-06 | Outpatient (CLI) | payer MEDICARE, SELFPAY | END | disposition home or self-care (01) | LOC: LAB 10:18 → LABSPEC 10:20 | PROVIDERS: PCP Family Medicine Geriatric Medicine; Referring Provider Family Medicine Geriatric Medicine; Visit Provider Family Medicine Geriatric Medicine | DX: D64.9 Anemia, unspecified (principal) | CPT/HCPCS: 82274 ==

== ENCOUNTER → 2023-04-04 | Outpatient (CLI) | payer MEDICARE, SELFPAY ==
[2023-04-04 12:13] LABS: Absolute Lymphocyte Count 0.77 X10^3/uL (0.83-4.51); Absolute Neutrophil Count 5.2 X10^3/uL (2.0-7.7); Basophil# 0.08 X10^3/uL; Basophil% 1.2 % (0-1); Eosinophil# 0.04 X10^3/uL; Eosinophils% 0.6 % (0-5); Hematocrit 40.7 % (40-54); Hemoglobin 12.6 g/dL (13.0-16.5); Lymphocyte # 0.77 X10^3/ul (0.83-4.51); Lymphocyte % 11.4 % (19-41); Mean Corpuscular Hgb 26.1 pg (27.0-32.0); Mean Corpuscular Volume 84.4 fL (80-94); Mean Platelet Vol. 10.5 fl (6.2-12.0); Monocyte# 0.68 X10^3/uL; NRBC Flagged by Analyzer 0 % (0-5); Neutrophil # 5.18 X10^3/uL (2.7-7.7); Neutrophil % 76.4 % (47-70); Platelet Count 281 K/mm3 (150-450); RBC Distribution Width CV 19.6 % (11.6-14.6); RBC Distribution Width SD 59.4 fl (35.1-43.9); Red Blood Count 4.82 M/mm3 (4.6-6.2); White Blood Count 6.8 K/mm3 (4.4-11.0)
== END | disposition home or self-care (01) ==
LOC: LAB 10:57
PROVIDERS: PCP Family Medicine Geriatric Medicine; Referring Provider Family Medicine Geriatric Medicine; Visit Provider Family Medicine Geriatric Medicine
DX: D64.9 Anemia, unspecified (principal)
CPT/HCPCS: 36415; 85025

== ENCOUNTER → 2023-04-24 | Outpatient (CLI) | payer MEDICARE, SELFPAY ==
--- NOTE | 2023-04-24 07:49 | CT_ITS ---
EXAM: CT CHEST WITHOUT INTRAVENOUS CONTRAST CLINICAL INDICATION: treated RUL NSCLC, monitor -- please compare to prior TECHNIQUE: Helically acquired images were obtained of the chest without intravenous contrast. This CT exam was performed using one or more of the following dose reduction techniques: automated exposure control, adjustment of the mA and/or kV according to patient size, and/or use of iterative reconstruction technique. COMPARISON: PET CT scan 12/27/2022, CT Chest dated 05/08/2020 FINDINGS: LUNGS AND PLEURAL SPACES: Residual 18 x 13 mm spiculated nodule noted within the right upper lobe associated with linear extension to the apical pleura. Diffuse extensive centrilobular pulmonary emphysema again noted. No pneumothorax. HEART: Normal. Heart size is normal. No pericardial effusion. MEDIASTINUM: Normal. No mediastinal or hilar adenopathy. Esophagus is unremarkable. No hiatal hernia. BONES/JOINTS: Small sclerotic nodule within the T1 vertebral body unchanged since a study of 2020 likely representing a benign bone island. VASCULATURE: Normal. Thoracic aorta is non-dilated. CT/Chest without Contrast IMPRESSION: 1. Residual 18 x 13 mm spiculated right upper lobe pulmonary nodule extending to the adjacent apical pleura. 2. No evidence of metastatic disease. 3. Extensive centrilobular pulmonary emphysema. Electronically Signed: Karlo Wen MD at 8:15 EST ,
--- OUTSIDE RECORDS SUMMARY | 2023-04-24 08:04 | XMS RPT_ITS | CCD ---
Author Name Unknown Address [address] [place] [address] Organization [facility] Care Team Providers Care Entrepreneurial Finance Professor Name Role Phone Jatin CHEN, Denzel Primary Care Provider Tony Auguste MD, Robert Unavailable DENZEL SHAFER Primary Care Unavailable DEAN BIRCH Attending Unavailable DEAN BIRCH Referring Unavailable DENZEL SHAFER Referring Unavailable DEAN BIRCH Attending Unavailable ALEJANDRINA SHAFER-JUVENAL Primary Care Unavailable Jatin CHEN, Alejandrina-Juvenal Primary Care Provider Tony Auguste MD, Robert Unavailable [phone] Medications Current Medications Medication Drug Class(es) Dates Sig (Normalized) Sig (Original) albuterol 5 mg/ml inhalation solution (7 sources) beta2-Adrenergic Agonist take 0.5 mg by inhalation every six hours as needed albuterol (5 MG/ML) 0.5% Nebu Soln inhalation solution Inhale 0.5 mL Every 6 hours as needed. 0 Active Completed/Discontinued Medications Medication Drug Class(es) Dates Sig (Normalized) Sig (Original) 2 ml fentaNYL 0.05 mg/ml injection (1 source) Opioid Agonist Start: 12-02-2022 End: 12-02-2022 fentaNYL (SUBLIMAZE) injection 0-300 mcg iohexol (OMNIPAQUE) 350 MG/ML injection 1-171 mL (1 source) Start: 11-11-2020 End: 11-11-2020 iohexol (OMNIPAQUE) 350 MG/ML injection 1-171 mL losartan potassium 50 mg oral tablet (5 sources) Angiotensin 2 Receptor Boom End: 11-04-2022 take 1 tablet by mouth once daily losartan 50 MG tablet Take 50 mg by mouth daily. 0 11/04/2022 Discontinued (Medication Reconciliation (suppress cancel msg)) Problems Active Problems Problem Classification Problem Date Documented Da te Episodic/Chronic Other lower respiratory disease (9 sources) Nodule of lung; Translations: [Solitary pulmonary nodule] Onset: 05-12-2021 Episodic Other lower respiratory disease (2 sources) Solitary pulmonary nodule; Translations: [Solitary pulmonary nodule] Onset: 05-12-2021 Episodic Screening and history of mental health and substance abuse codes (1 source) Ex-smoker; Translations: [Personal history of nicotine dependence] Episodic Past or Other Problems Problem Classification Problem Date Documented Da te Episodic/Chronic Mood disorders (5 sources) Mood disorders Onset: 11-10-2021 Resolved: 11-04-2022 11-10-2021 Other lower respiratory disease (2 sources) Solitary nodule of lung; Translations: [Solitary pulmonary nodule] Episodic Results Test Name Value Interpretation Reference Range Facil ity Vital Signs Date Time Vital Sign Value Performing Clinician Faci lity 12-02-2022 08:38-0400 Body temperature 98.01 [degF] Reji Goodrich MD Work Phone: [facility] 12-02-2022 08:38-0400 Diastolic blood pressure 65 mm[Hg] Reji Goodrich MD Work Phone: [facility] 12-02-2022 08:38-0400 Heart rate 67 /min Reji Goodrich MD Work Phone: [facility] 12-02-2022 08:38-0400 Respiratory rate 16 /min Reji Goodrich MD Work Phone: [facility] 12-02-2022 08:38-0400 SaO2% (BldA) [Mass fraction] 95 % Reji Goodrich MD Work Phone: [facility] 12-02-2022 08:38-0400 Systolic blood pressure 140 mm[Hg] Reji Goodrich MD Work Phone: [facility] 12-02-2022 06:09-0400 Body height 170.2 cm Reji Goodrich MD Work Phone: [facility] 12-02-2022 06:09-0400 Body mass index (BMI) [Ratio] 20.05 kg/m2 Reji Goodrich MD Work Phone: [facility] 12-02-2022 06:09-0400 Body weight 58.06 kg Reji Goodrich MD Work Phone: [facility] 11-04-2022 10:10-0400 Body height 170.2 cm [facility] Advanced Practice Provider [facility] 11-04-2022 10:10-0400 Body mass index (BMI) [Ratio] 20.42 kg/m2 [facility] Advanced Practice Provider [facility] 11-04-2022 10:10-0400 Body temperature 97.5 [degF] [facility] Advanced Practice Provider [facility] 11-04-2022 10:10-0400 Body weight 59.15 kg [facility] Advanced Practice Provider [facility] 11-04-2022 10:10-0400 Diastolic blood pressure 55 mm[Hg] [facility] Advanced Practice Provider [facility] 11-04-2022 10:10-0400 Heart rate 75 /min [facility] Advanced Practice Provider [facility] 11-04-2022 10:10-0400 Respiratory rate 16 /min [facility] Advanced Practice Provider [facility] 11-04-2022 10:10-0400 SaO2% (BldA) [Mass fraction] 95 % [facility] Advanced Practice Provider [facility] 11-04-2022 10:10-0400 Systolic blood pressure 119 mm[Hg] [facility] Advanced Practice Provider [facility] 11-10-2021 11:46-0400 Body height 170.2 cm Micah Trinh MD Work Phone: [facility] 11-10-2021 11:46-0400 Body mass index (BMI) [Ratio] 20.74 kg/m2 Micah Trinh MD Work Phone: [facility] 11-10-2021 11:46-0400 Body temperature 97.3 [degF] Micah Trinh MD Work Phone: [facility] 11-10-2021 11:46-0400 Body weight 60.06 kg Micah Trinh MD Work Phone: [facility] 11-10-2021 11:46-0400 Diastolic blood pressure 64 mm[Hg] Micah Trinh MD Work Phone: [facility] 11-10-2021 11:46-0400 Heart rate 87 /min Micah Trinh MD Work Phone: [facility] 11-10-2021 11:46-0400 Respiratory rate 16 /min Micah Trinh MD Work Phone: [facility] 11-10-2021 11:46-0400 SaO2% (BldA) [Mass fraction] 96 % Micah Trinh MD Work Phone: [facility] 11-10-2021 11:46-0400 Systolic blood pressure 136 mm[Hg] Micah Trinh MD Work Phone: [facility] 11-11-2020 16:08-0400 Body mass index (BMI) [Ratio] 20.31 kg/m2 Micah Trinh MD Work Phone: [facility] 11-11-2020 16:08-0400 Body temperature 97.9 [degF] Micah Trinh MD Work Phone: [facility] 11-11-2020 16:08-0400 Body weight 58.83 kg Micah Trinh MD Work Phone: [facility] 11-11-2020 16:08-0400 Diastolic blood pressure 72 mm[Hg] Micah Trinh MD Work Phone: [facility] 11-11-2020 16:08-0400 Heart rate 81 /min Micah Trinh MD Work Phone: [facility] 11-11-2020 16:08-0400 Respiratory rate 18 /min Micah Trinh MD Work Phone: [facility] 11-11-2020 16:08-0400 SaO2% (BldA) [Mass fraction] 96 % Micah Trinh MD Work Phone: [facility] 11-11-2020 16:08-0400 Systolic blood pressure 150 mm[Hg] Micah Trinh MD Work Phone: [facility] 11-11-2020 15:12-0400 Diastolic blood pressure 73 mm[Hg] Ingrid Lebron PA-C Work Phone: [facility] 11-11-2020 15:12-0400 Systolic blood pressure 145 mm[Hg] Ingrid Lebron PA-C Work Phone: [facility] Encounters Encounter Date Encounter Type Care Provider Facility Start: 12-02-2022 End: 12-02-2022 Subsequent hospital visit by physician Reji Goodrich MD Work Phone: Department of Radiology Procedures Date Procedure Procedure Detail Performing Clinician Start: 12-02-2022 Radiologic exam ches t single view Leeanne Leroy MD Work Phone: Start: 12-02-2022 GENERAL PROCEDURE Donald Goodrich MD Work Phone: Start: 12-02-2022 End: 12-02-2022 Blood count complete automated Debbie Olvera SECTION LABORER-VOCATIONAL PSYCHOLOGIST Work Phone: Start: 11-04-2022 Follow-up visit Follow-up DEAN BIRCH Start: 11-10-2021 Ct thorax w/o contra st material Delia Mccauley SECTION LABORER-VOCATIONAL PSYCHOLOGIST Work Phone: Start: 11-11-2020 Ct thorax w/contrast material Ingrid Lebron PA-C Work Phone: Start: 11-11-2020 Creatinine blood Ingrid Lebron PA-C Work Phone: Plan of Treatment Date Care Activity Detail Author Start: 11-14-2024 Tetanus vaccination TETANUS [facility] Start: 11-05-2023 Screening for malign ant neoplasm of lung LUNG CANCER SCREENING [facility] Start: 11-25-2022 Influenza vaccination INFLUENZA VACC INE (#1) [facility] Start: 11-10-2022 Screening for malign ant neoplasm of lung LUNG CANCER SCREENING [facility] Start: 11-04-2022 End: 11-04-2022 Patient encounter procedure Imaging Oswaldo Start: 04-10-2022 COVID-19 VACCINE (4 - Pfizer series) COVID-19 VACCINE (4 - Pfizer series) [facility] Start: 11-25-2021 Influenza vaccination INFLUENZA VACC INE (#1) [facility] Start: 11-11-2021 Screening for malign ant neoplasm of lung LUNG CANCER SCREENING [facility] Start: 11-10-2021 End: 11-10-2022 CT Chest WO contrast CT CHEST WITHOUT CONTRAST Imaging Routine Lung nodule Expected: 11/10/2021, Expires: 11/10/2022 [facility] Immunizations Immunization Date Immunization Notes Care Provider Paddy roberts 12-08-2021 influenza virus vaccine, unspecified formulation [facility] Advanced Practice Provider [facility] 06-14-2020 SARS-COV-2 (COVID-19 ), Mrna, Lnp-s, Pf, 30 Mcg/0.3 Ml Dose PFIZER Ingrid Lebron PA-C Work Phone: [facility] 05-25-2020 SARS-COV-2 (COVID-19 ), Mrna, Lnp-s, Pf, 30 Mcg/0.3 Ml Dose PFIZER Ingrid Lebron PA-C Work Phone: [facility] 01-06-2020 influenza virus vaccine, unspecified formulation Delia Mccauley SECTION LABORER-VOCATIONAL PSYCHOLOGIST Work Phone: [facility] Payers Date Payer Category Payer Medicare MEDICARE [employer]MO PPO MEDICARE [employer] HMO PPO [id number] 2020-Present [address] [address] [place] [id number] 2020 Medicare MEDICARE [employer] HMO PPO MEDICARE [employer] HMO PPO [id number] 2020-Present [address] [address] [place] [address] [id number] 2020 Medicare [id number] 1940 Unknown [id number] 1940 Unknown [id number] Social History Date Type Detail Facility Start: 09-03-2020 End: 11-04-2022 Tobacco smoking status NHIS Former smoker [facility] End: 04-27-2012 History of tobacco use Current smoker [facility] End: 04-27-2012 History of tobacco use Cigarette Smoker [facility] Start: 09-03-2020 End: 11-04-2022 Cigarettes smoked current (pack per day) - Reported [facility] Start: 09-03-2020 End: 11-04-2022 Tobacco use and exposure Current user [facility] History of tobacco use Snuff User [facility] History of tobacco use Chews Tobacco [facility] Start: 11-11-2020 End: 11-04-2022 Alcohol intake Ex-drinker (finding) [facility] Start: 11-11-2020 History SDOH Financial 5 [facility] Start: 11-11-2020 History SDOH Food Worry 1 [facility] Start: 11-11-2020 History SDOH Transpo rt Med 2 [facility] Start: 09-09-2020 Tobacco Comment 09/09/20- 1 pac k of chewing tobacco in a 1-1.5/week? [facility] Start: 1940 Sex Assigned At Not on file O [facility] Exposure to SARS-CoV -2 (event) Not sure [facility] Start: 11-10-2021 End: 11-04-2022 Tobacco Comment 11/10/2021- 1 pack of chewing tobacco in a 1-1.5/week? [facility] Start: 11-19-2021 End: 11-04-2022 Tobacco use panel [facility] How hard is it for y ou to pay for the very basics like food, housing, medical care, and heating Not hard at all [facility] (I/We) worried wheerica er (my/our) food would run out before (I/we) got money to buy more. Never true [facility] Clinical Notes 06-18-2020 to 12-02-2022 Jessie Shah RN - 12/02/2022 10:55 AM Angela Ritter RN - 12/02/2022 10:23 AM Enoc Roy RN - 12/02/2022 7:30 AM Ophelia Shah RN - 12/02/2022 10:55 AM EDTDischarge Instructions Note Date & Type Note Facility 12-02-2022 Nurse Note Patient meets Interventional Radiology sedation discharge criteria and discharged per MD order to home. Patient taken by wheelchair by ERIC Keith to awaiting car. All belongings gathered with patient. Family/friend to drive patient home and care for patient 6 hours post-procedure. CXR clear per Dr. Leroy. Pt denies history chemo/radiation, seizure,stroke, or metal/implants. documented in this encounter [facility] 12-02-2022 Nurse Surgical operation note Patient meets Interventional Radiology sedation discharge criteria and discharged per MD order to home. Patient taken by wheelchair by ERIC Keith to awaiting car. All belongings gathered with patient. Family/friend to drive patient home and care for patient 6 hours post-procedure. [facility] 12-02-2022 Nurse Surgical operation note CXR clear per Dr. Leroy. [facility] 12-02-2022 Nurse Note Procedure completed with IR Attending MD Goodrich of CT guided R Lung biopsy. Samples obtained intra-procedure and sent to lab for analysis. Post procedure patient to travel to [facility] for post procedure monitoring. See post procedure orders for nursing care. [facility] 12-02-2022 Miscellaneous Notes Procedure completed with IR Attending MD Goodrich of CT guided R Lung biopsy. Samples obtained intra-procedure and sent to lab for analysis. Post procedure patient to travel to [facility] for post procedure monitoring. See post procedure orders for nursing care. 0829: Patient arrives in [facility] Phase 2 Interventional Radiology from Interventional Radiology Procedure Suite with side rails up x2 with HOB >30 degrees, accompanied by IR Nurse. Patient placed on monitors, VSS. Patient assessed, see assessment. documented in this encounter [facility] 12-02-2022 History and physical note Interventional Radiology Pre Procedure H&P REFERRING PROVIDER Dean Birch APRN-VOCATIONAL PSYCHOLOGIST CHIEF COMPLAINT- Here for a lung biopsy PLANNED PROCEDURE- Image guided lung biopsy INDICATION FOR PROCEDURE- Margaux Sanderson is an 82 y.o. male with an enlarging right lung nodule that was initially found on a lung cancer screen. Referred to IR for an image guided biopsy. INTERVENTIONAL RADIOLOGY HISTORY- None CODE STATUS- Full Past Medical History: Diagnosis Date Matute's esophagus Diverticulosis Essential hypertension, benign GERD (gastroesophageal reflux disease) Hyperlipidemia Lung nodules Past Surgical History: Procedure Laterality Date THYROIDECTOMY TOTAL 2020 COLONOSCOPY W/ REMOVAL LESION POLYP TUMOR KNEE SURGERY Left Social History Social History Tobacco Use Smoking status: Former Packs/day: 1.00 Years: 50.00 Total pack years: 50.00 Types: Cigarettes Quit date: 04/2012 Years since quittin.6 Smokeless tobacco: Current Types: Chew, Snuff Tobacco comments: 11/10/2021- 1 pack of chewing tobacco in a 1-1.5/week? Vaping Use Vaping Use: Never used Substance Use Topics Alcohol use: Not Currently Drug use: Not Currently Allergies No Known Allergies Medication Sig albuterol (5 MG/ML) 0.5% Nebu Soln inhalation solution Inhale 0.5 mL Every 6 hours as needed. amLODIPine 10 MG tablet Take 1 tablet by mouth daily. atorvastatin 20 MG tablet Take by mouth. budesonide 0.25 MG/2ML inhalation suspension Inhale 2 mL 2 times daily. Calcium Carbonate-Vitamin D (CALCIUM 600+D PO) Take by mouth daily. ipratropium-albuterol 0.5-2.5 (3) MG/3ML nebulizer solution Inhale 3 mL. levothyroxine 75 MCG tablet Take 1 tablet by mouth daily. omeprazole [address] capsule Take 1 capsule by mouth daily. terazosin 1 MG capsule Take 1 capsule by mouth daily. valACYclovir 500 MG tablet Take 2 tablets by mouth daily. Aspirin [address] tablet Take 1 tablet by mouth daily. Review of Systems Denies the following: Arrhythmias, bleeding disorders, asthma, ADÁN, seizure disorder, DM Denies previous problems with sedation or topical anesthetics Denies problems lying flat or prone Gen - denies fevers Cardiovascular - denies CP or palpitations Respiratory - + BELLA Gastrointestinal - denies nausea; denies abdominal pain Renal - denies dysuria, hematuria or flank pain Neuromuscular - denies neuropathy; denies weakness Physical Exam Blood pressure 150/73, pulse 71, temperature 98 F (36.7 C), temperature source Oral, resp. rate 18, height 1.702 m (5' 7 ), weight 58.1 kg (128 lb), SpO2 98 %. General: Alert and oriented; in NAD Cardio: HR 71 Lungs: Normal work of breathing Neurological: No focal deficits Skin: [place], warm and dry Laboratory Data Results for orders placed or performed during the hospital encounter of 12/02/22 CBC,PLATELETS Result Value Ref Range WBC Count 8.71 3.73 - 10.10 K/uL RBC Count 4.49 4.38 - 5.83 M/uL Hemoglobin 12.0 (L) 13.4 - 16.8 g/dL Hematocrit 38.0 (L) 39.6 - 48.8 % Mean Cell Volume 84.6 79.0 - 94.5 fL Mean Cell Hgb 26.7 26.1 - 33.3 pg Mean Cell Hgb Conc 31.6 (L) 31.9 - 36.5 g/dL RBC Distribution 15.5 (H) 10.9 - 14.3 % Platelet Count 288 146 - 337 K/uL Mean Platelet Volume 10.3 8.7 - 12.3 fL PT/INR POINT OF CARE Result Value Ref Range PT/INR (POC Device) 1.4 (H) 0.9 - 1.1 Impression and Plan 1. Enlarging right lung nodule. Plan for image guided biopsy. 2. Hypertension. Pressure elevated though acceptable for procedure. 3. COPD. Stable on current inhaler regimen. 4. Aspirin therapy. Taking 81mg daily. No hold indicated for procedure. Mirlande Murray APRN-SHINE 12/02/2022 6:44 AM [facility] Work Phone: 12-02-2022 History and physical note Interventional Radiology Pre Procedure H&P REFERRING PROVIDER Dean Birch APRN-VOCATIONAL PSYCHOLOGIST CHIEF COMPLAINT- Here for a lung biopsy PLANNED PROCEDURE- Image guided lung biopsy INDICATION FOR PROCEDURE- Margaux Sanderson is an 82 y.o. male with an enlarging right lung nodule that was initially found on a lung cancer screen. Referred to IR for an image guided biopsy. INTERVENTIONAL RADIOLOGY HISTORY- None CODE STATUS- Full Past Medical History: Diagnosis Date Matute's esophagus Diverticulosis Essential hypertension, benign GERD (gastroesophageal reflux disease) Hyperlipidemia Lung nodules Past Surgical History: Procedure Laterality Date THYROIDECTOMY TOTAL 2020 COLONOSCOPY W/ REMOVAL LESION POLYP TUMOR KNEE SURGERY Left Social History Social History Tobacco Use Smoking status: Former Packs/day: 1.00 Years: 50.00 Total pack years: 50.00 Types: Cigarettes Quit date: 04/2012 Years since quittin.6 Smokeless tobacco: Current Types: Chew, Snuff Tobacco comments: 11/10/2021- 1 pack of chewing tobacco in a 1-1.5/week? Vaping Use Vaping Use: Never used Substance Use Topics Alcohol use: Not Currently Drug use: Not Currently Allergies No Known Allergies Medication Sig albuterol (5 MG/ML) 0.5% Nebu Soln inhalation solution Inhale 0.5 mL Every 6 hours as needed. amLODIPine 10 MG tablet Take 1 tablet by mouth daily. atorvastatin 20 MG tablet Take by mouth. budesonide 0.25 MG/2ML inhalation suspension Inhale 2 mL 2 times daily. Calcium Carbonate-Vitamin D (CALCIUM 600+D PO) Take by mouth daily. ipratropium-albuterol 0.5-2.5 (3) MG/3ML nebulizer solution Inhale 3 mL. levothyroxine 75 MCG tablet Take 1 tablet by mouth daily. omeprazole [address] capsule Take 1 capsule by mouth daily. terazosin 1 MG capsule Take 1 capsule by mouth daily. valACYclovir 500 MG tablet Take 2 tablets by mouth daily. Aspirin [address] tablet Take 1 tablet by mouth daily. Review of Systems Denies the following: Arrhythmias, bleeding disorders, asthma, ADÁN, seizure disorder, DM Denies previous problems with sedation or topical anesthetics Denies problems lying flat or prone Gen - denies fevers Cardiovascular - denies CP or palpitations Respiratory - + BELLA Gastrointestinal - denies nausea; denies abdominal pain Renal - denies dysuria, hematuria or flank pain Neuromuscular - denies neuropathy; denies weakness Physical Exam Blood pressure 150/73, pulse 71, temperature 98 F (36.7 C), temperature source Oral, resp. rate 18, height 1.702 m (5' 7 ), weight 58.1 kg (128 lb), SpO2 98 %. General: Alert and oriented; in NAD Cardio: HR 71 Lungs: Normal work of breathing Neurological: No focal deficits Skin: [place], warm and dry Laboratory Data Results for orders placed or performed during the hospital encounter of 12/02/22 CBC,PLATELETS Result Value Ref Range WBC Count 8.71 3.73 - 10.10 K/uL RBC Count 4.49 4.38 - 5.83 M/uL Hemoglobin 12.0 (L) 13.4 - 16.8 g/dL Hematocrit 38.0 (L) 39.6 - 48.8 % Mean Cell Volume 84.6 79.0 - 94.5 fL Mean Cell Hgb 26.7 26.1 - 33.3 pg Mean Cell Hgb Conc 31.6 (L) 31.9 - 36.5 g/dL RBC Distribution 15.5 (H) 10.9 - 14.3 % Platelet Count 288 146 - 337 K/uL Mean Platelet Volume 10.3 8.7 - 12.3 fL PT/INR POINT OF CARE Result Value Ref Range PT/INR (POC Device) 1.4 (H) 0.9 - 1.1 Impression and Plan 1. Enlarging right lung nodule. Plan for image guided biopsy. 2. Hypertension. Pressure elevated though acceptable for procedure. 3. COPD. Stable on current inhaler regimen. 4. Aspirin therapy. Taking 81mg daily. No hold indicated for procedure. JENNIFER De 12/02/2022 6:44 AM documented in this encounter [facility] 12-02-2022 Nurse Note 0829: Patient arrives in [facility] Phase 2 Interventional Radiology from Interventional Radiology Procedure Suite with side rails up x2 with HOB >30 degrees, accompanied by IR Nurse. Patient placed on monitors, VSS. Patient assessed, see assessment. [facility] 12-02-2022 Nurse Surgical operation note Pt denies history chemo/radiation, seizure,stroke, or metal/implants. [facility] 12-02-2022 Procedure note Associated Ord er(s): GENERAL PROCEDURE BODY INTERVENTIONAL RADIOLOGY PROCEDURE NOTE PROCEDURE INDICATION: Right upper lobe enlarging lung nodule PROCEDURE PERFORMED: CT-guided lung biopsy FINDINGS/TARGET: Right upper raj lung nodule. Total of 6 passes taken. No pneumothorax on post imaging. Reji Goodrich MD 12/02/2022 9:11 AM [facility](S): Reji Goodrich MD. CONSENT: Informed consent was obtained prior to the procedure after discussion of the risks, benefits, and alternatives of the procedure, and expected procedure outcomes were discussed with the patient and/or operations support representative. The consent document was placed in chart. DID THIS PROCEDURE REQUIRE A UNIVERSAL PROTOCOL?: Yes. Glasco Protocol is required. Preprocedure verification is complete. Patient verified and consents confirmed, procedure sites identified and marked as appropriate, timeout called before the start of the procedure. SEDATION: Moderate sedation and local anesthetic SPECIMEN: 20 gauge core needle biopsy passes x 6 DISPOSITION OF SPECIMEN(S): Pathology ESTIMATED BLOOD LOSS: Less than 1 mL COMPLICATIONS: None immediate ADDITIONAL: Please refer to the report generated in the IMAGING section of the electronic medical record for additional procedure details. Thank you for allowing Interventional Radiology to participate in this patient's care. [place] Work Phone: 12-02-2022 Procedure note Associated Ord er(s): GENERAL PROCEDURE BODY INTERVENTIONAL RADIOLOGY PROCEDURE NOTE PROCEDURE INDICATION: Right upper lobe enlarging lung nodule PROCEDURE PERFORMED: CT-guided lung biopsy FINDINGS/TARGET: Right upper raj lung nodule. Total of 6 passes taken. No pneumothorax on post imaging. Reji Goodrich MD 12/02/2022 9:11 AM [facility](S): Reji Goodrich MD. CONSENT: Informed consent was obtained prior to the procedure after discussion of the risks, benefits, and alternatives of the procedure, and expected procedure outcomes were discussed with the patient and/or operations support representative. The consent document was placed in chart. DID THIS PROCEDURE REQUIRE A UNIVERSAL PROTOCOL?: Yes. [place] Protocol is required. Preprocedure verification is complete. Patient verified and consents confirmed, procedure sites identified and marked as appropriate, timeout called before the start of the procedure. SEDATION: Moderate sedation and local anesthetic SPECIMEN: 20 gauge core needle biopsy passes x 6 DISPOSITION OF SPECIMEN(S): Pathology ESTIMATED BLOOD LOSS: Less than 1 mL COMPLICATIONS: None immediate ADDITIONAL: Please refer to the report generated in the IMAGING section of the electronic medical record for additional procedure details. Thank you for allowing Interventional Radiology to participate in this patient's care. documented in this encounter [facility] 12-02-2022 Hospital Discharge instructions Leonila Murray APRN-VOCATIONAL PSYCHOLOGIST - 12/02/2022 6:47 AM EDT Home Care after Sedation You have been given medicines during your procedure that might make you sleepy. To prevent problems: 1. Rest for the remainder of the day. You should have someone drive you home and be available for the next [address] hours[address] today. 3. Do not drink alcoholic beverages today. 4. Do not make any important business or legally binding decisions today. 5. Do not work around the stove, machinery or power equipment today. 6. The medicines used for sedation may make you feel nauseated. Start with clear liquids, which is anything that you can see through such as tea, jello, broth and sherie pat. As you feel better you may add soft foods such as pudding and ice cream. When you no longer feel nauseated you may try your normal diet. You should be back to eating your normal meals after 24 hours. Home Care Instructions after Your Lung Biopsy Here are important instructions when you return home after your lung biopsy: 1. Do not drive until the day after your lung biopsy. 2. Avoid coughing, straining or lifting for 24 hours. Do not lift or push heavy objects weighing more than 10 pounds for 1to 2 days. If your usual activities involve lifting, ask your doctor what is safe for you. 3. You may remove the bandage covering the biopsy area 24 hours after the biopsy procedure. 4. Wait for 24 hours after the lung biopsy to take a shower. Do not scrub the biopsy area. Gently wash the area and pat it dry. 5. Most often you can return to previous activity level in 24 hours. Call your doctor right away if you have these problems: Sudden or increased shortness of breath Feeling of fullness in your chest that becomes worse Coughing up bright red blood Dizziness or feeling lightheaded Chills or fever of 100.4 degrees F (38 degrees C) or higher Increased redness, tenderness or swelling at the biopsy site Heavy bleeding from the biopsy site Fast heart beat Exhaustion or extreme weakness Bleeding from the biopsy site: Lie down. Hold a pad firmly over the site for 5 to 10 minutes. Continue to lie quietly for one hour after the bleeding has stopped. After one hour, get up slowly to avoid getting lightheaded and keep activity to a minimum. If bleeding occurs a second time, follow the above steps. If you are not able to stop the bleeding, call 911 or the emergency squad. Pain: After your lung biopsy you may have pain in your shoulder or the area where the biopsy was done. You may also feel fullness on the side of your chest where the biopsy was done. If it becomes stronger or if it is continuous, call your doctor. Other instructions: Call your doctor's office for a follow-up appointment if you do not already have one scheduled. Interventional Radiology Contact Information If you have questions or concerns, please call Interventional Radiology at After-Hours or on Weekends, please call the [facility] at [phone] and ask them for the Interventional Elastic Attacher [employer] On-Call documented in this encounter [facility] 11-04-2022 History of Present illness Narrative PROGRESS NOTE Chief Complaint Patient presents with Follow-up Margaux Sanderson is a 82 y.o. male former smoker who is being followed for right upper lobe nodule. This was first found in 2011 and was noted to be 5.9 mm. He followed in surveillance with his local neurobiologist Dr. Jimenez and was referred to our office after CT chest on 05/17/20 demonstrated a slight increase in the nodule. Interval CT chest on 11/11/20 demonstrated stability, and overall the nodule demonstrated very slow growth since 05/08/2017. His CT chest completed in April of 2021 demonstrated stability in size of the RUL. He presents today with a [address] chest for comparison. Review of Systems Negative for fevers, chills, fatigue, weight loss, BELLA, cough, hemoptysis, or pain. Physical Exam BP 119/55 (BP Location: Right arm, BP Position: Sitting) Pulse 75 Temp 97.5 F (36.4 C) (Oral) Resp 16 Ht 1.702 m (5' 7 ) Wt 59.1 kg (130 lb 6.4 oz) SpO2 95% BMI 20.42 kg/m Smoking Status Former on room air HEART: regular rate and rhythm. No murmurs, rubs or gallops. LUNGS: Breathing non-labored. Lungs clear. LYMPH NODES: No cervical or supraclavicular lymphadenopathy is noted. Imaging 11/04/22 CT chest without contrast Lung nodule appears to have interval enlargement, pending final radiologic read Assessment/Plan: 82 y.o. male former smoker who is being followed for right upper lobe nodule. This was first found in 2011 and was noted to be 5.9 mm. He followed in surveillance with his local neurobiologist Dr. Jimenez and was referred to our office after CT chest on 05/17/20 demonstrated a slight increase in the nodule. Interval CT chest on 11/11/20 demonstrated stability, and overall the nodule demonstrated very slow growth since 05/08/2017. His CT chest completed in April of 2021 demonstrated stability in size of the RUL. He presents today with a [address] chest for comparison. 1. Patient seen and evaluated independently in [facility]. All relevant images and labs reviewed 2. Nodule appears large in size, will review scans with Dr. Trinh and call patient with plan. He is in agreement. The patient was seen and discussed with JENNIFER Eugene. JENNIFER Eugene #[id number] documented in this encounter [facility] 11-10-2021 History of Present illness Narrative PROGRESS NOTE Chief Complaint Patient presents with Follow-up CT complete. Margaux Sanderson is a 81 y.o. male former smoker who is being followed for right upper lobe nodule. This was first found in 2011 and was noted to be 5.9 mm. He followed in surveillance with his local neurobiologist Dr. Jimenez and was referred to our office after CT chest on 05/17/20 demonstrated a slight increase in the nodule. Interval CT chest on 11/11/20 demonstrated stability, and overall the nodule demonstrated very slow growth since 05/08/2017. His CT chest completed in April of 2021 demonstrated stability in size of the RUL nodule. He presents today with a 6 month interval for comparison. Review of Systems Negative for fevers, chills, fatigue, weight loss, BELLA, cough, hemoptysis, or pain. Physical Exam BP 136/64 (BP Location: Left arm, BP Position: Sitting) Pulse 87 Temp 97.3 F (36.3 C) (Oral) Resp 16 Ht 1.702 m (5' 7 ) Wt 60.1 kg (132 lb 6.4 oz) SpO2 96% BMI 20.74 kg/m Smoking Status Former Smoker on room air HEART: regular rate and rhythm. No murmurs, rubs or gallops. LUNGS: Breathing non-labored. Lungs clear. LYMPH NODES: No cervical or supraclavicular lymphadenopathy is noted. Imaging Upon my personal review, his CT chest appears stable, with no acute abnormality noted. The final radiologic interpretation will be reviewed to confirm stability, and the patient will be notified of any changes. Assessment/Plan: 81 y.o. male former smoker who is being followed for right upper lobe nodule. This was first found in 2011 and was noted to be 5.9 mm. He followed in surveillance with his local neurobiologist Dr. Jimenez and was referred to our office after CT chest on 05/17/20 demonstrated a slight increase in the nodule. Interval CT chest on 11/11/20 demonstrated stability, and overall the nodule demonstrated very slow growth since 05/08/2017. His CT chest completed in April of 2021 demonstrated stability in size of the RUL nodule. He presents today with a 6 month interval for comparison. 1. Patient seen and evaluated by myself and Dr. Trinh. CT images appear stable without interval change in size of the RUL nodule or new nodules. Pending final radiologic read the patient will return to [facility] in one year with CT chest for ongoing nodule surveillance. After next visit he will be outside of eligibility criteria for low dose screening, consider PRN if nodule remains stable The patient was seen and discussed with Micah Trinh MD. JENNIFER Eugene #[id number] Reviewed final radiologic read with Dr. Trinh. Plan to continue with one year surveillance CT JENNIFER Eugene PROGRESS NOTE Chief Complaint Patient presents with Follow-up CT complete. Margaux Sanderson is a 81 y.o. male former smoker who presents for evaluation of a right upper lobe lung nodule. A right upper lobe lung nodule was noted three years ago. A CT scan of the chest demonstrated a 1.1 cm right upper lobe lung nodule in 05-08-2020. A PET CT scan demonstrated modest hypermetabolic uptake (SUVmax 3.8) in the right upper lobe lung nodule and there was a hypermetabolic left thyroid nodule (SUVmax 8.8). The patient was evaluated at [facility] and surgery was recommended for the right upper lobe lung nodule. The right upper lobe lung nodule was indeterminate. I reccommended a repeat CT scan of the chest. He presents today with a CT scan of the chest for comparison. Oncology History No history exists. Review of Systems Negative for fevers, chills, fatigue, weight loss, BELLA, cough, hemoptysis, or pain. Physical Exam BP 136/64 (BP Location: Left arm, BP Position: Sitting) Pulse 87 Temp 97.3 F (36.3 C) (Oral) Resp 16 Ht 1.702 m (5' 7 ) Wt 60.1 kg (132 lb 6.4 oz) SpO2 96% BMI 20.74 kg/m Smoking Status Former Smoker HEART: regular rate and rhythm. No murmurs, rubs or gallops. LUNGS: Breathing non-labored. Lungs are clear. LYMPH NODES: No cervical or supraclavicular lymphadenopathy is noted. Imaging EXAM: CT CHEST WITHOUT CONTRAST, 11/10/2021 11:23 AM IMPRESSION: 1. Irregular right upper lobe nodule is overall similar in appearance to the immediate prior with subjectively slightly increased nodular soft tissue posteriorly. When compared to more remote studies such as from April 2020, the irregular nodule is overall increased in size. PET/CT or tissue sampling may be useful. Assessment/Plan: Margaux Sanderson is a 80 y.o. male former smoker who presents for evaluation of a right upper lobe lung nodule. A right upper lobe lung nodule was noted three years ago. A CT scan of the chest demonstrated a 1.1 cm right upper lobe lung nodule in 05-08-2020. A PET CT scan demonstrated modest hypermetabolic uptake (SUVmax 3.8) in the right upper lobe lung nodule and there was a hypermetabolic left thyroid nodule (SUVmax 8.8). The patient was evaluated at [facility] and surgery was recommended for the right upper lobe lung nodule. The right upper lobe lung nodule was indeterminate. I reccommended a repeat CT scan of the chest. He presents today with a CT scan of the chest for comparison. The right upper lobe lung nodule appears to be stable in size compared to the previous CT scan. I recommended a follow up CT scan in 12 months for ongoing surveillance. Micah Trinh MD documented in this encounter [facility] 11-11-2020 History of Present illness Narrative PROGRESS NOTE Chief Complaint Patient presents with Follow-up CT complete; Mild SOB with activity, productive cough-clear thin sputum, Denies pain, Afebrile Other thyroid removed a week and a half ago; started amlodipine recently Margaux Sanderson is a 80 y.o. male former smoker who presents for evaluation of a right upper lobe lung nodule. A right upper lobe lung nodule was noted three years ago. A CT scan of the chest demonstrated a 1.1 cm right upper lobe lung nodule in 05-08-2020. A PET CT scan demonstrated modest hypermetabolic uptake (SUVmax 3.8) in the right upper lobe lung nodule and there was a hypermetabolic left thyroid nodule (SUVmax 8.8). The patient was evaluated at [facility] and surgery was recommended for the right upper lobe lung nodule. The right upper lobe lung nodule was indeterminate. I reccommended a repeat CT scan of the chest. He presents today with a CT scan of the chest for comparison. Oncology History No history exists. Review of Systems Negative for fevers, chills, fatigue, weight loss, BELLA, cough, hemoptysis, or pain. Physical Exam BP 150/72 Pulse 81 Temp 97.9 F (36.6 C) Resp 18 Wt 58.8 kg (129 lb 11.2 oz) SpO2 96% BMI 20.31 kg/m Smoking Status Former Smoker HEART: regular rate and rhythm. No murmurs, rubs or gallops. LUNGS: Breathing non-labored. Lungs are clear. LYMPH NODES: No cervical or supraclavicular lymphadenopathy is noted. Imaging CT chest 11/12/20: Lungs and Pleura: The right upper lobe spiculated pulmonary nodule is centered on image 60 of the thin axial images and measures 7.6 x 7.5 mm, unchanged by re-measurements of the May 08, 2020 thin axial image 37 at 7.6 x 7.4 mm. The appearance is also unchanged from the PET/CT of July 14, 2020, though that study did not have thin axial images. An outside study from May 08, 2017 showed the nodule measured 5.9 x 5.5 mm on image 38. IMPRESSION: 1. No measurable change in the size of the right upper lobe nodule when compared to the prior study of May 08, 2020. Upon review of older outside images, the nodule has shown very mild growth since the prior study of May 08, 2017. This very slow growth would be unusual for malignancy and is suggestive of benign disease. 2. Interval thyroidectomy. Assessment/Plan: Margaux Sanderson is a 80 y.o. male former smoker who presents for evaluation of a right upper lobe lung nodule. A right upper lobe lung nodule was noted three years ago. A CT scan of the chest demonstrated a 1.1 cm right upper lobe lung nodule in 05-08-2020. A PET CT scan demonstrated modest hypermetabolic uptake (SUVmax 3.8) in the right upper lobe lung nodule and there was a hypermetabolic left thyroid nodule (SUVmax 8.8). The patient was evaluated at [facility] and surgery was recommended for the right upper lobe lung nodule. The right upper lobe lung nodule was indeterminate. I reccommended a repeat CT scan of the chest. He presents today with a CT scan of the chest for comparison. The right upper lobe lung nodule is stable. I recommended a follow up CT scan in 6 months for ongoing surveillance. Micah Trinh MD PROGRESS NOTE Chief Complaint Patient presents with Follow-up CT complete; Mild SOB with activity, productive cough-clear thin sputum, Denies pain, Afebrile Other thyroid removed a week and a half ago; started amlodipine recently Margaux Sanderson is a 80 y.o. male former smoker (50 pack years, chews daily) with history of HTN, HLD, GERD, matute's esophagus and diverticulosis who is self referred today for evaluation of a mildly hypermetabolic RUL nodule found during annual LDCT lung cancer screening. Of note, he has been following with annual CT chest imaging for nodule surveillance for the past 3 years with his local neurobiologist, Dr. Micah Jimenez ([place]). A CT chest on 05/08/20 showed a slight increase in size of a spculated RUL nodule, no current or previous measurement given. He presents today with a CT chest for comparison. Patient denies worsening BELLA or shortness of breath. He reports an intermittent productive cough with clear sputum, which he attributes to post-nasal drainage. Patient denies fevers, chest pain, weight loss, hemoptysis, night sweats, or chills. He did have his thyroid removed 1.5 weeks ago from a surgeon in [place], [place] and also recently started taking amlodipine. Otherwise, he denies changes in his medical or surgical history. Oncology History No history exists. Review of Systems Reviewed per HPI. Physical Exam BP 150/72 Pulse 81 Temp 97.9 F (36.6 C) Resp 18 Wt 58.8 kg (129 lb 11.2 oz) SpO2 96% BMI 20.31 kg/m Smoking Status Former Smoker on room air HEART: regular rate and rhythm. No murmurs, rubs or gallops. LUNGS: Breathing non-labored. Lungs CTAB. LYMPH NODES: No cervical or supraclavicular lymphadenopathy is noted. Imaging CT chest 11/12/20: FINDINGS: Lungs and Pleura: The right upper lobe spiculated pulmonary nodule is centered on image 60 of the thin axial images and measures 7.6 x 7.5 mm, unchanged by re-measurements of the May 08, 2020 thin axial image 37 at 7.6 x 7.4 mm. The appearance is also unchanged from the PET/CT of July 14, 2020, though that study did not have thin axial images. An outside study from May 08, 2017 showed the nodule measured 5.9 x 5.5 mm on image 38. There is extensive centrilobular emphysema. Tracheobronchial tree: There is a small amount of mucus adherent to the right lateral tracheal wall just inferior to the thoracic inlet, but the airways appear otherwise patent centrally. Mediastinum/Katie: No mediastinal or hilar lymphadenopathy. Axilla and Supraclavicular Region: Since the prior study, the thyroid has been resected. Minimal soft tissue density is seen in the surgical bed, not unexpected given how recent the surgery was. No axillary or supraclavicular adenopathy is seen. Cardiovascular: The heart size is normal. There are atherosclerotic calcifications in the aorta and coronary arteries. There is no pericardial effusion. Upper Abdomen: The incidentally imaged portion of the upper abdomen appears normal except for vascular calcifications. Bones and Soft Tissue: There are degenerative changes in the thoracic spine. A high attenuation focus in T1 appears to represent a bone island and appears unchanged. No new or suspicious bone or chest wall lesions are identified. Additional Findings: None. Front Sight Attacher: Front Sight Attacher imaging reveals no abnormalities not already visible on the cross-section images. IMPRESSION: 1. No measurable change in the size of the right upper lobe nodule when compared to the prior study of May 08, 2020. Upon review of older outside images, the nodule has shown very mild growth since the prior study of May 08, 2017. This very slow growth would be unusual for malignancy and is suggestive of benign disease. 2. Interval thyroidectomy. Assessment/Plan: 80 y.o. male former smoker (50 pack years, chews daily) with history of HTN, HLD, GERD, matute's esophagus and diverticulosis who is self referred today for evaluation of a mildly hypermetabolic RUL nodule found during annual LDCT lung cancer screening. Of note, he has been following with annual CT chest imaging for nodule surveillance for the past 3 years with his local neurobiologist, Dr. Micah Jimenez ([place]). A CT chest on 05/08/20 showed a slight increase in size of a spculated RUL nodule, no current or previous measurement given. He presents today with a CT chest for comparison. 1. Patient was seen and evaluated in clinic today by myself and Dr. Trinh. All relevant imaging and data was reviewed. 2. Patient's RUL nodule (spiculated vs cluster of small nodules) appears stable on imaging today. Will defer to final radiology report once available to confirm stability, and we will notify the patient of any pertinent findings. Plan is to continue nodule surveillance. Patient will follow up with a CT chest in 6 months. He indicates understanding and agrees with the plan. Chantel Ospina PA-C documented in this encounter [facility] 10-01-2020 Note HNO ID: [id number] Author: Kota Martinez APRN.SHINE Service: ? Author Type: Nurse Practitioner Type: Progress Notes Filed: 10/01/2020 1:26 PM Note Text: Actionable Findings Registry I am following up on this actionable finding at the direction of the inaja. Patient was found previously to have a thyroid nodule. US THYROID was recommended and done. Will close this out of the actionable findings registry. Actionable Findings follow up status: Resolved Kota Martinez APRN.CNP October 01, 2020 1:25 PM [facility] 10-01-2020 Note Patient Outreach (UR GDIS) JERODMARGAUX James ([id number]) 1940 M Date Time Provider Department 10/01/20 KOTA MARTINEZ During your visit today, we recorded the following information about you: Kota Martinez APRN.CNP 10/01/2020 1:26 PM Signed Actionable Findings Registry I am following up on this actionable finding at the direction of the inaja. Patient was found previously to have a thyroid nodule. US THYROID was recommended and done. Will close this out of the actionable findings registry. Actionable Findings follow up status: Resolved Kota Martinez APRN.CNP October 01, 2020 1:25 PM Allergies As of Date: 10/01/2020 (No Known Allergies) Date Reviewed: 08/17/2020 Reviewed by: Nataly Merritt Ma - Fully Assessed Reason for Visit: Actionable Findings Follow Up [3985] Prescriptions as of 10/01/2020 - carvedilol (COREG) 25 mg tablet Take 0.5 tablets by mouth twice daily with meals. - hydroCHLOROthiazide (HYDRODIURIL, ESIDRIX) 25 mg tablet Take 1 tablet by mouth once daily. - albuterol (PROVENTIL) 2.5 mg/0.5 mL nebulizar solution Use 2.5 mg via nebulizer every 6 hours as needed. - ipratropium-albuterol (DUONEB) 0.5 mg-3 mg(2.5 mg base)/3 mL nebu Inhale 3 mL as instructed. - losartan potassium (LOSARTAN ORAL) Take 100 mg by mouth once daily. - terazosin (HYTRIN) 1 mg capsule Take 1 mg by mouth daily at bedtime. - calcium carbonate/vitamin D3 (CALCIUM+D ORAL) Take 600 mg by mouth once daily. - aspirin, enteric coated (ASPIRIN, ENTERIC COATED) 81 mg EC tablet Take 81 mg by mouth once daily. - Omeprazole (PRILOSEC) 40 mg capsule Take 1 capsule by mouth 1-2 times daily. Facility-Administered Medications as of 10/01/2020 - perflutren lipid microspheres 1.3 mL in NaCl (PF) 0.9% 10 mL injection (DEFINITY) - sodium chloride 0.9 % (flush) 10 mL (BD POSIFLUSH) Problem List As Of Date 10/01/2020 Noted Resolved MELENA, BLOOD IN STOOL [K92.1] 06/17/2008 ACUTE GASTRITIS W/O HEMORRHAGE [K29.00] 07/14/2008 BENIGN NEOPLASM LG BOWEL [D12.6] 07/14/2008 Matute's esophagus [K22.70] 08/22/2012 Gastritis [K29.70] 08/22/2012 Personal history of colonic polyps [Z86.010] 08/22/2012 Colon polyps [K63.5] 09/02/2013 Essential hypertension [I10] 07/16/2020 Dyspnea on exertion [R06.00] 07/16/2020 Chest pain [R07.9] 07/16/2020 Encounter Status:Closed by KOTA MARTINEZ on 10/01/20 [facility] 08-27-2020 Note HNO ID: [id number] Author: Alexus Huang RDMS Service: ? Author Type: Real Estate Administrator Type: Progress Notes Filed: 08/27/2020 11:22 AM Note Text: Radiology Service Progress Note PATIENT NAME: Margaux Sanderson DATE OF SERVICE: August 27, 2020 TIME: 11:22 AM PATIENT IDENTITY VERIFICATION COMPLETED USING TWO (2) IDENTIFIERS: Name and Date of confirmed by patient verbally. FALL SCREENING: Has the patient had 2 falls in the last year or 1 fall with injury or currently using an Ambulatory Assistive Device (Walker, Cane, Wheelchair, Crutches, etc.)? No PATIENT GENDER DATA: Male PATIENT RELEVANT IMPLANT DATA REVIEWED: Not Applicable RADIOLOGY DEPARTMENT: Ultrasound PERIPHERAL IV DATA: Not applicable SIGNED BY: Alexus Huang RDMS RVT August 27, 2020 11:22 AM [facility] 08-17-2020 Note HNO ID: [id number] Author: Olaf Reddy MD Service: ? Author Type: Physician Type: Progress Notes Filed: 08/18/2020 11:34 AM Note Text: Olaf Reddy M.D. Department of Endocrine Surgery Endocrinology Metabolism [place] [facility] [address], [place] [address] ENDOCRINE SURGERY NEW CONSULTATION NAME: Margaux Sanderson [facility] NO: [id number] : 1940 REFERRING PROVIDER: Jenny Richardson [address] [place] [address] The patient was referred by the above provider and my findings and recommendations will be communicated by way of the shared medical record. HPI: Margaux Sanderson was evaluated today for a consultation regarding the following condition(s): Lung nodule. New or established diagnosis: Established Mode of detection: CT followed by PET-CT (+FDG-avid) Associated symptoms: No History of head and neck radiation: No Family history of endocrine tumors: no History of previous thyroid biopsy or any cervical operation: Yes; fine-needle aspiration biopsy of thyroid nodule; laterality: right and left (09/05/17) - both benign Pertinent medications (blood thinners, calcium, biotin, diuretics, lithium): No PMH: PAST MEDICAL HISTORY Diagnosis Date - Matute's esophagus - Benign neoplasm of colon - Blood in stool - Disease of lung nodules - Diverticulosis of colon (without mention of hemorrhage) - GERD (gastroesophageal reflux disease) - HTN (hypertension) - Hyperlipemia - Pure hypercholesterolemia PSH: PAST SURGICAL HISTORY Procedure Laterality Date - COLONOS W/REM POLYP SNARE 07/07/2008 Polyp at 30cm, few diverticulosis - COLONOS W/REM POLYP SNARE 08/13/13 mid transverse colon sessile polyp - unable to removed due to small size and curvature of colon, follow up 1 year - MAC at that time - COLONS W/REM POLYP HT BX 08/14/12 APC argon fulgration - 1 year follow up - COLONS W/REM POLYP HT BX 02/01/16 adenomatous polyp - ablated - 2-3 year follow up - EGD W/O [facility] SPECIMEN W/BX 07/07/2008 gastritis, esophagitis - EGD W/O [facility] SPECIMEN W/BX 08/14/12 improved esophagitis - EGD W/O [facility] SPECIMEN W/BX 08/13/13 improved esophagitis - EGD W/O [facility] SPECIMEN W/BX 02/01/16 reflux, not barretts - PAST SURGICAL HISTORY OF cyst removed - PAST SURGICAL HISTORY OF knee operation left Medications: Current Outpatient Medications on File Prior to Visit Medication Sig - carvedilol (COREG) 25 mg tablet Take 1 tablet by mouth twice daily with meals. - albuterol (PROVENTIL) 2.5 mg/0.5 mL nebulizar solution Use 2.5 mg via nebulizer every 6 hours as needed. - ipratropium-albuterol (DUONEB) 0.5 mg-3 mg(2.5 mg base)/3 mL nebu Inhale 3 mL as instructed. - losartan potassium (LOSARTAN ORAL) Take 100 mg by mouth once daily. - terazosin (HYTRIN) 1 mg capsule Take 1 mg by mouth daily at bedtime. - calcium carbonate/vitamin D3 (CALCIUM+D ORAL) Take 600 mg by mouth once daily. - aspirin, enteric coated (ASPIRIN, ENTERIC COATED) 81 mg EC tablet Take 81 mg by mouth once daily. - Omeprazole (PRILOSEC) 40 mg capsule Take 1 capsule by mouth 1-2 times daily. - hydroCHLOROthiazide (HYDRODIURIL, ESIDRIX) 25 mg tablet Take 1 tablet by mouth once daily. (Patient not taking: Reported on 08/17/2020 ) Current Facility-Administered Medications on File Prior to Visit Medication - perflutren lipid microspheres 1.3 mL in NaCl (PF) 0.9% 10 mL injection (DEFINITY) - sodium chloride 0.9 % (flush) 10 mL (BD POSIFLUSH) All: ALLERGIES No Known Allergies SH: Social History Tobacco Use - Smoking status: Former Smoker Packs/day: 1.00 Years: 50.00 Pack years: 50.00 Types: Cigarettes Quit date: 05/09/2012 Years since quittin.2 - Smokeless tobacco: Current User Types: Snuff, Chew Substance Use Topics - Alcohol use: No - Drug use: No FH: Pertinent history above; otherwise, non-contributory REVIEW OF SYSTEMS: GENERAL: Well-appearing, no malaise or fevers HEENT: Negative for occular, acoustic, nasal, or oral complaints NECK: See HPI RESPIRATORY: Negative for cough, hemoptysis, wheezing, or resting dyspnea CARDIOVASCULAR: Negative for resting chest pain GI: No nausea, vomiting, or diarrhea MUSCULOSKELETAL: Negative for joint swelling or acute pain PSYCH: Negative for significant mood disorder or psychiatric illness ENDOCRINE: See HPI NEURO: No history of recent syncope, paralysis, or seizures PHYSICAL EXAM: On physical exam, Margaux Sanderson is well appearing, alert, and oriented and appears euthyroid. On inspection, the skin over the anterior neck is smooth, no mass is visualized. Palpation revealed neck to be supple, thyroid gland is palpable and overall normal in size. No lymphadenopathy was palpated on either side of the neck. ULTRASOUND EXAMINATION: Ultrasound examination was performed in the office. The trachea was midline. The right thyroid lobe w (more content not included)... [facility] 08-03-2020 Note HNO ID: [id number] Author: Melisa Butcher RN Service: ? Author Type: ? Type: Progress Notes Filed: 08/03/2020 11:43 AM Note Text: STRESS EXERCISE [place]ER[place] SERVICE DATE: August 03, 2020 SERVICE TIME: 8:00am PATIENT IDENTITY VERIFICATION COMPLETED USING TWO (2) METHODS: Patient confirmed name and Date of verbally. PATIENT GENDER DATA: Male ALLERGIES: Allergies: No Known Allergies MEDICATIONS: Current Outpatient Medications on File Prior to Visit Medication Sig - carvedilol (COREG) 25 mg tablet Take 1 tablet by mouth twice daily with meals. - albuterol (PROVENTIL) 2.5 mg/0.5 mL nebulizar solution Use 2.5 mg via nebulizer every 6 hours as needed. - ipratropium-albuterol (DUONEB) 0.5 mg-3 mg(2.5 mg base)/3 mL nebu Inhale 3 mL as instructed. - losartan potassium (LOSARTAN ORAL) Take 100 mg by mouth once daily. - terazosin (HYTRIN) 1 mg capsule Take 1 mg by mouth daily at bedtime. - calcium carbonate/vitamin D3 (CALCIUM+D ORAL) Take 600 mg by mouth once daily. - aspirin, enteric coated (ASPIRIN, ENTERIC COATED) 81 mg EC tablet Take 81 mg by mouth once daily. - Omeprazole (PRILOSEC) 40 mg capsule Take 1 capsule by mouth 1-2 times daily. Current Facility-Administered Medications on File Prior to Visit Medication - perflutren lipid microspheres 1.3 mL in NaCl (PF) 0.9% 10 mL injection (DEFINITY) - sodium chloride 0.9 % (flush) 10 mL (BD POSIFLUSH) MEDICATIONS REVIEWED BY: Melisa Butcher RN FALL QUESTIONNAIRE COMPLETED BY: Melisa Butcher RN PROCEDURE TYPE: Stress ECHO SIGNATURE: Melisa Butcher RN PATIENT NAME: Margaux Sanderson DATE: August 03, 2020 TIME: 11:42 AM [facility] 07-23-2020 Note Patient Outreach (PU LMMN) MARGAUX SANDERSON ([id number]) 1940 M Date Time Provider Department 07/23/20 RONALD MARIA During your visit today, we recorded the following information about you: Becca Yang [facility] [place] 07/23/2020 9:45 AM Signed Incidental Lung Nodule Enrollment Enrolled in Lung Nodule program: No Declined reason: Patient already followed by another [facility] provider for incidental lung nodule(s). Allergies As of Date: 07/23/2020 (No Known Allergies) Date Reviewed: 07/16/2020 Reviewed by: Vanesa Hadley Ma - Fully Assessed Prescriptions as of 07/23/2020 Sig: ALBUTEROL SULFATE 2.5 MG/0.5 * Use 2.5 mg via nebulizer ever* IPRATROPIUM 0.5 MG-ALBUTEROL * Inhale 3 mL as instructed. 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 Author Type: ? Type: Progress Notes Filed: 07/23/2020 9:45 AM Note Text: Incidental Lung Nodule Enrollment Enrolled in Lung Nodule program: No Declined reason: Patient already followed by another [facility] provider for incidental lung nodule(s). [facility] 07-16-2020 Note HNO ID: [id number] Author: Jenny Richardson Service: ? Author Type: Physician Type: Progress Notes Filed: 07/16/2020 10:23 AM Note Text: I have read and reviewed the documentation and agree. I wish to add the followingI wish to add the following findings which have been dictated and will be communicated back to the requesting physician . I spent more than 50 % of the visit face to face counseling the patient on the plan and treatment options. The total time face to face visit was 25 minutes. Jenny Richardson MD, PhD [facility] 07-16-2020 Note HNO ID: [id number] Author: Catina Jaffe Service: ? Author Type: ? Type: Progress Notes Filed: 07/16/2020 10:23 AM Note Text: Pt here for follow up visit: RUL lung nodule Last clinic note 06/18/2020 per Jenny Richardson M.D. IMPRESSION: Right upper lobe nodule that is suspicious for non-small cell lung cancer in a patient who is profoundly hypertensive at his walk oximetry. Repeat PET scan to confirm FDG avidity and help with nodule diagnosis appears indicated. In addition, a visit with our Cardiology team is also indicated as the patient's profound hypertension really precludes further assessment of his heart until this problem is adjudicated. Once Cardiology team sees the patient and sorts out his candidacy for potential surgical resection and the PET scan is completed, a definitive treatment plan can be devised. ? Today's visit 07/16/2020: BP 140/78[man[ Pulse 60 Temp (Src) 98 (Oral) Ht 5' 7 (1.70m) Wt 133 lb (60.3kg) SpO2 98% BMI 20.83 kg/(m2). Patient is denying any issues at this time. PET 07/14/2020 IMPRESSION: ?1. ?NECK: Markedly hypermetabolic left thyroid nodule, suspicious for malignancy. ? Further evaluation with ultrasound is recommended. ?2. ?CHEST: Mildly hypermetabolic, mildly spiculated right upper lobe lung nodule, highly suspicious for malignancy. Mild, nonspecific uptake in the bilateral katie; possibly related to presence of small lymph nodes, likely reactive lymph nodes. No hypermetabolic mediastinal lymphadenopathy. Emphysema/COPD. ?3. ?ABDOMEN/PELVIS: No FDG avid neoplastic process. ?No mass, adenopathy, or fluid collection. ?4. ?EXTREMITIES/SKELETON: No FDG avid osseous process. No destructive/traumatic bony abnormality. ACTIONABLE RESULT: FOLLOW-UP Acuity: Actionable Findings: Endocrine (thyroid) Routing Code: ?EMI_1 Recommendation: US THYROID/PARATHYROID Time Frame: non-urgent, but prompt follow-up. COMMUNICATION: Results will be communicated with the ordering provider via [employer] staff message or phone message by [employer] within 2 business days of report finalization. EKG 07/16/2020 Diagnosis: NORMAL SINUS RHYTHM LEFT AXIS DEVIATION ABNORMAL ECG CARDS w/ 07/16/2020 IMPRESSION: Mr. Sanderson is a 79 year old male with past history of hypertension and hyperlipidemia presenting for preoperative cardiovascular evaluation ahead of a potential lobectomy. Cardiac risk factors include prior stated history as well as former smoker. No history of myocardial infarction, no evidence actively of acute coronary syndrome. Patient rather active despite comorbidities, able achieve well above 4 METS of functional activity. That said, notes intermittent chest tightness and exertional dyspnea. Favor we further risk stratify with a stress test with close follow-up with final cardiac assessment. Pre-Operative Risk Assessment Patient is compensated/euvolemic on today's exam, without active cardiac symptoms. ? This patient has no active conditions that require urgent management prior to any surgical procedure. ? Functional capacity: climb a flight of stairs or walk up a hill (5.50 METs) ? Revised García Cardiac Risk Index for Non-Cardiac Surgery: No risk factors - 3.9 percent (95% CI: 2.8-5.4) One risk factor - 6.0 percent (95% CI: 4.9-7.4) Two risk factors - 10.1 percent (95% CI: 8.1-12.6) Three or more risk factors - 15 percent (95% CI: 11.1-20) ? Based on the above assessment, the patient has a 6% risk of cardiac , nonfatal AK or nonfatal cardiac arrest Further cardiac testing indicated prior to proceeding: Exercise stress echocardiogram. Order placed. Will followup and provide final cardiac perioperative risk assessment at that time. ? In addition to the above history and physical exam, the results of prior labs and testing, were reviewed. The above plans and goals have been established to address current medical problems and optimize control of cardiovascular risk factors to reduce the risk of future heart disease. The majority of the visit was spent counseling and/or coordinating care for the patient. We discussed natural history of disease, current treatment options, and future potential treatment options. We discussed lifestyle modification including diet, exercise,?blood pressure control and smoking cessation if applicable, and?general heart health/prevention. [facility] 07-15-2020 Note HNO ID: [id number] Author: Santino Gallardo MD Service: ? Author Type: Physician Type: Progress Notes Filed: 08/07/2020 9:44 AM Note Text: [facility] [place] [facility] Department of Cardiovascular Medicine SECTION OF CLINICAL CARDIOLOGY OUTPATIENT VISIT DATE July 16, 2020 OUTPATIENT VISIT TYPE CONSULT PRIMARY CARE PHYSICIAN : Florentin Hernandez MD [address] [place] [id number] REFERRING PHYSICIAN: Jenny Richardson MD, PhD [address] [facility] [address] CHIEF COMPLAINT: Preop evaluation Lung nodule, upcoming lobectomy HISTORY OF PRESENT ILLNESS: Mr. Sanderson is a 79 year old male from [facility] who presents today for cardiovascular preop assessment ahead of a possible lobectomy. CARDIAC HISTORY: ? Hypertension, not well controlled per OPD BP readings, 120s to 180s systolic ? 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 Doesn't check BP at home but has cuff and will begin doing so. ? Hypercholesterolemia, December 2019: Total cholesterol 213, LDL 134, HDL 58, triglycerides 107 ? Former smoker, 50 pack years, quit date 2012 History of spiculated right upper lobe nodule interval growth between April 2019 in April 2020. PFT April 2020: FEV1 1.6 L, 68%. DLCO 72%. Per outside report. CARDIAC MEDS: ? Losartan 100 mg daily ? Prazosin 1 mg nightly ? Aspirin 81 mg daily ? 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 Extremely independent. Has exertional dyspnea a few times a week, denies chest pain. Nebulizer helps with breathing. - Symptoms: Notes some dyspnea on exertion and occasional chest discomfort with exertion. States had stress test roughly 10 years ago which was negative , has never had a coronary angiogram. Has occasional palpitations per report (TSH normal in 2019). Has GERD history on omeprazole which patient notes provides 90% relief. He denies today having active chest pain, shortness of breath, orthopnea, cough, edema, palpitations, PND, lightheadedness or syncope. PAST MEDICAL HISTORY Diagnosis Date - Matute's esophagus - Benign neoplasm of colon - Blood in stool - Disease of lung nodules - Diverticulosis of colon (without mention of hemorrhage) - GERD (gastroesophageal reflux disease) - HTN (hypertension) - Hyperlipemia - Pure hypercholesterolemia PAST SURGICAL HISTORY Procedure Laterality Date - COLONOS W/REM POLYP SNARE 07/07/2008 Polyp at 30cm, few diverticulosis - COLONOS W/REM POLYP SNARE 08/13/13 mid transverse colon sessile polyp - unable to removed due to small size and curvature of colon, follow up 1 year - MAC at that time - COLONS W/REM POLYP HT BX 08/14/12 APC argon fulgration - 1 year follow up - COLONS W/REM POLYP HT BX 02/01/16 adenomatous polyp - ablated - 2-3 year follow up - EGD W/O [facility] SPECIMEN W/BX 07/07/2008 gastritis, esophagitis - EGD W/O [facility] SPECIMEN W/BX 08/14/12 improved esophagitis - EGD W/O [facility] SPECIMEN W/BX 08/13/13 improved esophagitis - EGD W/O [facility] SPECIMEN W/BX 02/01/16 reflux, not barretts - PAST SURGICAL HISTORY OF cyst removed - PAST SURGICAL HISTORY OF knee operation left SOCIAL HISTORY Social History Tobacco Use - Smoking status: Former Smoker Packs/day: 1.00 Years: 50.00 Pack years: 50.00 Types: Cigarettes Quit date: 05/09/2012 Years since quittin.1 - Smokeless tobacco: Current User Types: Snuff, Chew Substance Use Topics - Alcohol use: No - Drug use: No FAMILY HISTORY Problem Relation Age of Onset - Arthritis Mother - Thyroid Cancer Mother - Ischemic Heart Disease Father - Hypertension Father - Diabetes Father - Heart Failure Father - Stroke Father - Colon Cancer Sister ALLERGIES: ALLERGIES No Known Allergies MEDICATIONS: albuterol (PROVENTIL) 2.5 mg/0.5 mL nebulizar solution Use 2.5 mg via nebulizer every 6 hours as needed. ipratropium-albuterol (DUONEB) 0.5 mg-3 mg(2.5 mg base)/3 mL nebu Inhale 3 mL as instructed. losartan potassium (LOSARTAN ORAL) Take 100 mg by mouth once daily. terazosin (HYTRIN) 1 mg capsule Take 1 mg by mouth daily at bedtime. calcium carbonate/vitamin D3 (CALCIUM+D ORAL) Take 600 mg by mouth once daily. aspirin, enteric coated (ASPIRIN, ENTERIC COATED) 81 mg EC tablet Take 81 mg by mouth once daily. metoprolol tartrate, short acting, (LOPRESSOR) 50 mg tablet Take 0.5 tablets by mouth twice daily. TAKE 25 MG (HALF OF A 50 MG TABLET) Omeprazole (PRILOSEC) 40 mg capsule Take 1 capsule by mouth 1-2 times daily. REVIEW OF SYSTEMS: GENERAL: Negative for: Weight loss or gain, Fever or Chills, Weakness and Sleep difficulties. HEENT: Negative for: Headache, Impaired Vision, Glasses, Hearing Impairment, Ringing in Ears, Nosebleeds, Poor dental care, Blee (more content not included)... [facility] 07-14-2020 Note HNO ID: [id number] Author: Jose Daniel Danielle (Tech) Service: Nuclear Medicine Author Type: Machine Maintenance Type: Progress Notes Filed: 07/14/2020 7:00 AM Note Text: RADIOLOGY SERVICE PROGRESS NOTE SERVICE DATE: 07/14/2020 SERVICE TIME: 6:59 AM PATIENT IDENTITY VERIFICATION COMPLETED USING TWO (2) STANDARD IDENTIFIERS: Name and Date of confirmed by patient verbally PATIENT GENDER DATA: .male IV SITE: Ambulatory: RT AC POST EXAM PIV STATUS: Discontinued PROCEDURE TYPE: NM INJECT: PET/CT BODY SCAN. 6.7 mCi F18 FDG. No other medications given.. ADMINISTRATION TIME: 0653 PATIENT DISCHARGED TO: Ambulatory patient, left NM department area. A Diagnostic radioactive procedure has taken place, with no further precautions necessary other than routine body substance precautions. More information regarding radiation safety can be found using this link: [email or web address] SIGNATURE: Sally Banks PATIENT NAME: Margaux Sanderson DATE: July 14, 2020 TIME: 6:59 AM PAGER/CONTACT #: [facility] 06-18-2020 Note HNO ID: [id number] Author: Jenny Richardson Service: ? Author Type: Physician Type: Progress Notes Filed: 06/18/2020 12:28 PM Note Text: I have read and reviewed the documentation and agree. I wish to add the following findings which have been dictated and will be communicated back to the requesting physician. Jenny Richardson MD, PhD [facility] 06-18-2020 Note HNO ID: [id number] Author: Young Wei MD Service: ? Author Type: Resident Type: Progress Notes Filed: 06/18/2020 12:28 PM Note Text: [facility] TH[facility] SURGERY OUTPATIENT CONSULT NOTE Margaux Sanderson [id number] Requesting Provider: Florentin Hernandez MD [address] [facility] [address] [facility] [address] Thoracic Physician: Jenny Richardson MD Chief Complaint: RUL lung nodule Impression: Margaux Sanderson is a 79 year old M presenting with a spiculated RUL nodule followed by Dr. Jimenez, with interval growth between Apr 2019 and Apr 2020. Concern for malignancy, though nodule not amenable to wedge resection. PFTs 70% and patient does not want to be on oxygen or limited lifestyle postoperatively. Hypertensive at visit. Needs repeat PET Plan: Will need to see cardiology here for htn and cardiac eval Schedule PET same day HPI: Margaux Sanderson is a 79 year old White male pmh Matute's esophagus, cecal polyp, GERD, Htn, referred by Dr. Jimenez for an opinion regarding management of Lung Nodule. He is currently asymptomatic. Has been followed by Dr. Jimenez for a spiculated RUL lung nodule identified in 2018 on screening LDCT; currently ~1.9x0.9cm. It has grown slightly in size since the scan 1 year prior. He initially underwent PET in 2018 when first identified, which was negative. He has a ~40 P-y smoking history.Quit 10 years ago. History of exposure to chemicals- Zeppalume . Maybe asbestos exposure- ripped out and put in new alessandra. He is being referred to Thoracic surgery for consideration of surgical wedge biopsy and excision. 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 Extremely independent, does not want to be taken care of, does not want possibility of needing oxygen. He currently endorses some BELLA. Occasional chest discomfort with exertion, had stress test about 10 years ago which was negative. No LHC. Occasional palpitations. +GERD. Takes omeprazole ~ 90% relieved. Baking soda once a week. Been having for years. A 6MWT was scheduled for today, however patient was hypertensive (BP 200/74 at rest), so the test was deferred. 6MWT PFTs 05/18/20: FVC 3.3L (92%) FEV1 1.6L (68%) DLCO 72% (document at least 4 of these elements) Location: right and upper Quality: chronic and worsening Severity: moderate Duration: 3 years ECOG Score: 0 Living arrangement: Lives alone Functional status: Independent Unintentional weight loss over last 3 months: No PAST MEDICAL HISTORY: PAST MEDICAL HISTORY Diagnosis Date - Matute's esophagus - Benign neoplasm of colon - Blood in stool - Diverticulosis of colon (without mention of hemorrhage) - GERD (gastroesophageal reflux disease) - HTN (hypertension) - Pure hypercholesterolemia PAST SURGICAL HISTORY: PAST SURGICAL HISTORY Procedure Laterality Date - COLONOS W/REM POLYP SNARE 07/07/2008 Polyp at 30cm, few diverticulosis - COLONOS W/REM POLYP SNARE 08/13/13 mid transverse colon sessile polyp - unable to removed due to small size and curvature of colon, follow up 1 year - MAC at that time - COLONS W/REM POLYP HT BX 08/14/12 APC argon fulgration - 1 year follow up - COLONS W/REM POLYP HT BX 02/01/16 adenomatous polyp - ablated - 2-3 year follow up - EGD W/O BRSH SPECIMEN W/BX 07/07/2008 gastritis, esophagitis - EGD W/O BRSH SPECIMEN W/BX 08/14/12 improved esophagitis - EGD W/O BRSH SPECIMEN W/BX 08/13/13 improved esophagitis - EGD W/O BRSH SPECIMEN W/BX 02/01/16 reflux, not barretts - PAST SURGICAL HISTORY OF cyst removed - PAST SURGICAL HISTORY OF knee operation left FAMILY HISTORY: FAMILY HISTORY Problem Relation Age of Onset - Ischemic Heart Disease Father - Arthritis Mother SOCIAL HISTORY: Social History Tobacco Use - Smoking status: Former Smoker Packs/day: 1.00 Years: 50.00 Pack years: 50.00 Types: Cigarettes Quit date: 05/09/2012 Years since quittin.1 - Smokeless tobacco: Current User Types: Snuff Substance Use Topics - Alcohol use: No - Drug use: No MEDICATIONS: Prior to Admission Medications: aspirin, enteric coated (ASPIRIN, ENTERIC COATED) 81 mg EC tablet Take 81 mg by mouth once daily. hydrocortisone (PROCTOZONE-HC) 2.5 % rectal cream 1 Tube by RECTAL route twice daily. lisinopril 20 mg tablet Take 1 tablet by mouth once daily. traMADol 50 mg tablet Take 1 tablet by mouth every 4 hours as needed. metoprolol tartrate, short acting, (LOPRESSOR) 50 mg tablet Take 0.5 tablets by mouth twice daily. TAKE 25 MG (HALF OF A 50 MG TABLET) Pramoxine-Hydrocortisone 1-1 % rectal cream As needed as directed Omeprazole (PRILOSEC) 40 mg capsule Take 1 capsule by mouth 1-2 times daily. ALLERGIES: ALLERGIES No Known Allergies Chemical Exposure: Yes, see HPI Asbestos Exposure possible COMPLETE REVIEW OF SYSTEMS Constitutional: No weight loss, malaise or fevers. HEENT: Negative for frequent or sig (more content not included)... [facility] 06-18-2020 Note Procedure ([facility]) MARGAUX SANDERSON ([id number]) 1940 M Date Time Provider Department 06/18/20 10:45 AM [facility] J-1 [facility] During your visit today, we recorded the following information about you: Referring Provider: JENNY RICHARDSON [[id number]] Allergies As of Date: 06/18/2020 (No Known Allergies) Date Reviewed: 06/18/2020 Reviewed by: Vanesa Hadley Ma - Fully Assessed Reason for Visit: Spirometry [191] Visit Diagnosis:Lung nodule [R91.1] Order(s):SIX MINUTE WALK [[id number]] Order #: [id number] Prescriptions as of 06/18/2020 Sig: ASPIRIN 81 MG TABLET,DELAYED * Take 81 mg by mouth once maico* HYDROCORTISONE 2.5 % TOPICAL * 1 Tube by RECTAL route twice * Patient not taking: Reported on 06/18/2020 LISINOPRIL 20 MG TABLET Take 1 tablet by mouth once d* Patient not taking: Reported on 06/18/2020 TRAMADOL 50 MG TABLET Take 1 tablet by mouth every * Patient not taking: Reported on 06/18/2020 METOPROLOL TARTRATE 50 MG TAB* Take 0.5 tablets by mouth twi* HYDROCORTISONE-PRAMOXINE 1 %-* As needed as directed Patient not taking: Reported on 06/18/2020 OMEPRAZOLE 40 MG CAPSULE,LEIGH* Take 1 capsule by mouth 1-2 t* Problem List As Of Date 06/18/2020 Noted Resolved MELENA, BLOOD IN STOOL [K92.1] 06/17/2008 ACUTE GASTRITIS W/O HEMORRHAGE [K29.00] 07/14/2008 BENIGN NEOPLASM LG BOWEL [D12.6] 07/14/2008 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 Author Type: Respiratory Therapist Type: Progress Notes Filed: 06/18/2020 10:44 AM Note Text: Patient arrived for 6 min walk test. Resting BP 200/74. Patient denies any symptoms associated with hypertension. Dr. Richardson notified of relative-contraindication for testing from resting BP. Per Dr. Richardson hold testing at this time. Patient discharged to appointment with . [facility] Diagnosis Solitary lung nodule- Primary Solitary pulmonary nodule [facility] Lung nodule Solitary pulmonary nodule Former smoker Personal history of tobacco use, presenting hazards to health [facility] Diagnosis Lung nodule- Primary Solitary pulmonary nodule [facility] Diagnosis Lung nodule- Primary Solitary pulmonary nodule [facility] Diagnosis Nodule of upper lobe of right lung documented in this encounter [facility] Summary Purpose Family History No Family History Records FoundNo Family History Records FoundNo Family History Records Found Advance Directives Latest Code Status on File Code Status Date Activated Date Inactivated Comments Full Code 12/02/2022 7:44 AM Latest Code Status on File Code Status Date Activated Date Inactivated Comments Full Code 12/02/2022 7:44 AM Reason for Referral Specialty Diagnoses / Procedures Referred By Contac t Referred To Contact Diagnoses Solitary lung nodule Procedures CT CHEST WITH CONTRAST CHG DIAGNOSTIC COMPUTED TOMOGRAPHY THORAX W/CONTRAST Ingrid Lebron PA-C [address] [place] [address] Referral ID Status Reason Start Date Expiration Date Visits Re quested Visits Authorized [id number] Closed 09/09/2020 10/04/2021 1 1 Specialty Diagnoses / Procedures Referred By Contac t Referred To Contact Diagnoses Solitary lung nodule Procedures CT CHEST WITHOUT CONTRAST CHG DIAGNOSTIC COMPUTED TOMOGRAPHY THORAX W/O CNTRST Chantel Ospina PA-C [address] [place] [address] Referral ID Status Reason Start Date Expiration Date V isits Requested Visits Authorized [id number] New Request 11/11/2020 12/06/2021 1 1 Specialty Diagnoses / Procedures Referred By Contac t Referred To Contact Diagnoses Lung nodule Former smoker Procedures CT CHEST WITHOUT CONTRAST CHG DIAGNOSTIC COMPUTED TOMOGRAPHY THORAX W/O CNTRST Delia Mccauley SECTION LABORER-VOCATIONAL PSYCHOLOGIST [address] [place] [address] [address] [place] [address] Referral ID Status Reason Start Date Expiration Date Visits Re quested Visits Authorized [id number] Closed 05/12/2021 06/06/2022 1 1 Specialty Diagnoses / Procedures Referred By Contac t Referred To Contact Diagnoses Lung nodule Procedures CT CHEST WITHOUT CONTRAST CHG DIAGNOSTIC COMPUTED TOMOGRAPHY THORAX W/O CNTRST Dean Birch SECTION LABORER-VOCATIONAL PSYCHOLOGIST [address] [place] [id number] Referral ID Status Reason Start Date Expiration Date V isits Requested Visits Authorized [id number] New Request 11/10/2021 12/05/2022 1 1 Specialty Diagnoses / Procedures Referred By Contac t Referred To Contact Diagnoses Nodule of upper lobe of right lung Procedures CT LUNG/MEDIASTINUM BIOPSY [place] CORE NEEDLE BX LUNG/MEDIASTINUM PERQ W/IMG [place] CT GUIDANCE NEEDLE PLACEMENT Dean Birch SECTION LABORER-VOCATIONAL PSYCHOLOGIST [address] [place] [id number] Referral ID Status Reason Start Date Expiration Date V isits Requested Visits Authorized [id number] New Request 11/11/2022 12/06/2023 1 1 Additional Source Comments (unrecognized sect ion and content) No Status Records FoundNo Status Records FoundNo Status Records Found INFORMATION SOURCE (unrecogn ized section and content) DATE CREATED AUTHOR AUTHOR'S ORGANIZ ATION 04/24/2021 [facility] DATE CREATED AUTHOR AUTHOR'S ORGANIZ ATION 11/16/2022 [facility] Reason for Visit (unrecogniz ed section and content) Referral ID Status Reason Start Date Expiration Date Visits Re quested Visits Authorized [id number] Closed 09/09/2020 10/04/2021 1 1 Reason Comments Follow-up CT complete; Mild SO B with activity, productive cough-clear thin sputum, Denies pain, Afebrile Other thyroid removed a we ek and a half ago; started amlodipine recently Specialty Diagnoses / Procedures Referred By Bonnie chowdary Referred To Contact Diagnoses Lung nodule Former smoker Procedures CT CHEST WITHOUT CONTRAST CHG DIAGNOSTIC COMPUTED TOMOGRAPHY THORAX W/O CNTRST Delia Mccauley APRN-VOCATIONAL PSYCHOLOGIST [address] [place] [address] Referral ID Status Reason Start Date Expiration Date Visits Re quested Visits Authorized [id number] Closed 05/12/2021 06/06/2022 1 1 Reason Comments Follow-up CT complete. Reason Comments Follow-up Specialty Diagnoses / Procedures Referred By Bonnie chowdary Referred To Contact Diagnoses Nodule of upper lobe of right lung Procedures CT LUNG/MEDIASTINUM BIOPSY [place] CORE NEEDLE BX LUNG/MEDIASTINUM PERQ W/IMG [place] CT GUIDANCE NEEDLE PLACEMENT Dean Birch, MANUELA-VOCATIONAL PSYCHOLOGIST [address] [place] [address] Referral ID Status Reason Start Date Expiration Date V isits Requested Visits Authorized [id number] New Request 11/11/2022 12/06/2023 1 1 Care Teams (unrecognized sec tion and content) Entrepreneurial Finance Professor Relationship Specialty Start Date End Date Denzel Shafer MD [address] [place] [address] PCP - General Internal Medicine 09/09/20 Micah Forrest MD [address] [facility] [address] [place], [place] [address] Coating Machine Operator Pulmonary Disease 11/11/20 Entrepreneurial Finance Professor Relationship Specialty Start Date End Date Denzel Shafer MD [address] [facility] [address] [place], [place] [address] PCP - General Internal Medicine 09/09/20 Micah Forrest MD [address] [place] [address] [address] [place] [address] Coating Machine Operator Pulmonary Disease 11/11/20 Entrepreneurial Finance Professor Relationship Specialty Start Date End Date Denzel Shafer MD [address] [place] [address] [address] [place], [place] [address] PCP - General Internal Medicine 09/09/20 Micah Forerst MD [address] [place] [address] [address] [place] [address] Coating Machine Operator Pulmonary Disease 11/11/20 Entrepreneurial Finance Professor Relationship Specialty Start Date End Date Denzel Shafer MD [address] [place] [address] [address] [place], [place] [address] PCP - General Internal Medicine 09/09/20 Micah Forrest MD [address] [place] [address] [address] [place] [address] Coating Machine Operator Pulmonary Disease 11/11/20 Entrepreneurial Finance Professor Relationship Specialty Start Date End Date Denzel Shafer MD [address] [place] [address] [address] [place], [place] [id number] PCP - General Internal Medicine 09/09/20 Micah Forrest MD [address] [place] [address] [address] [place] [address] Coating Machine Operator Pulmonary Disease 11/11/20 Entrepreneurial Finance Professor Relationship Specialty Start Date End Date Denzel Shafer MD [address] [facility] [address] [place] [address] PCP - General Internal Medicine 09/09/20 Micah Forrest MD [address] [facility] [address] [place], [place] [address] Coating Machine Operator Pulmonary Disease 11/11/20 FOR RECORDS PERTAINING TO PATIENTS WHO ARE OR HAVE BEEN ENROLLED IN A CHEMICAL DEPENDENCY/SUBSTANCEABUSE PROGRAM, SOME INFORMATION MAY BE OMITTED. This clinical summary was aggregated from multiple sources. Caution should be exercised in using it in the provision of clinical care. This summary normalizes information from multiple sources, and as a consequence, information in this document may materially change the coding, format and clinical context of patient data. In addition, data may be omitted in some cases. CLINICAL DECISIONS SHOULD BE BASED ON THE PRIMARY CLINICAL RECORDS. [employer] provides no warranty or guarantee of the accuracy or completeness of information in this document.
== END | disposition home or self-care (01) ==
LOC: CT 07:43
PROVIDERS: PCP Family Medicine Geriatric Medicine; Referring Provider Student in an Organized Health Care Education/Training Program; Visit Provider Student in an Organized Health Care Education/Training Program
DX: C34.11 Malignant neoplasm of upper lobe, right bronchus or lung (principal)
CPT/HCPCS: 71250

== ENCOUNTER → 2023-07-24 | Outpatient (CLI) | payer MEDICARE, SELFPAY ==
--- NOTE | 2023-07-24 07:56 | CT_ITS ---
EXAM: CT CHEST WITHOUT INTRAVENOUS CONTRAST CLINICAL INDICATION: follow up treated RUL NSCLC -- please compare to prior TECHNIQUE: Helically acquired images were obtained of the chest without intravenous contrast. This CT exam was performed using one or more of the following dose reduction techniques: automated exposure control, adjustment of the mA and/or kV according to patient size, and/or use of iterative reconstruction technique. RADIATION DOSE: CTDIvol = 6.64 mGy, DLP = 259.04 mGy-cm COMPARISON: CT chest without contrast 04/24/2023. FINDINGS: LUNGS AND PLEURAL SPACES: Elongated spiculated pulmonary nodule and/or fibrosis in the right upper lobe extending to the right lung apex has new medial extension in the right perivertebral space at at T3 vertebral body level and adjacent the cervical esophagus. This contains air bronchograms and measures approximately 4.6 x 1.1 cm (series 4, images 17-36). This has the appearance of fibrosis more than neoplasm. Diffuse centrilobular emphysema type of COPD is unchanged. Heavy calcified plaques of the left main coronary artery, LAD branch and circumflex branch are unchanged. Normal pericardium. Microcardia due to COPD. HEART: Unremarkable. Heart size is normal. No pericardial effusion. No significant coronary artery calcifications. MEDIASTINUM: Unremarkable. No mediastinal or hilar adenopathy. Esophagus is unremarkable. No hiatal hernia. THYROID: Unremarkable. No thyroid lesions. BONES/JOINTS: Unremarkable. No suspicious lytic or blastic abnormality. VASCULATURE: Unremarkable. Thoracic aorta is non-dilated. CT/Chest without Contrast IMPRESSION: 1. Elongated spiculated pulmonary nodule and or fibrosis in the right upper lobe extending to right lung apex has no curvilinear and medial extension in the right T3 vertebral body perivertebral space and into the right lateral wall of the cervical esophagus. This medial extension measures approximately 4.6 x 1.1 cm (series 4, images 17-36) and it contains air bronchograms. These findings are suspicious for postradiation changes rather than progression of neoplasm. Follow-up whole body PET/CT fusion scan will be helpful. 2. No CT evidence of metastatic disease in the chest. 3. Heavy calcifications of the left main coronary artery, LAD branch and circumflex branch are unchanged. 4. Centrilobular emphysema predominant type of COPD is unchanged. Electronically Signed: Evan Bunch MD at 8:31 EDT ,
== END | disposition home or self-care (01) ==
LOC: CT 07:56
PROVIDERS: PCP Family Medicine Geriatric Medicine; Referring Provider Student in an Organized Health Care Education/Training Program; Visit Provider Student in an Organized Health Care Education/Training Program
DX: C34.11 Malignant neoplasm of upper lobe, right bronchus or lung (principal)
CPT/HCPCS: 71250

== ENCOUNTER → 2023-09-04 | Outpatient (CLI) | payer MEDICARE, SELFPAY ==
--- NOTE | 2023-09-04 10:30 | RAD_ITS ---
HISTORY: OSTEOPOROSIS. TECHNIQUE: XR Spine Cervical 2 or 3 Views. COMPARISON: 10/21/2011. FINDINGS: VERTEBRAE: Mild osteopenia noted. No acute fracture identified. ALIGNMENT: No significant anterior or posterior subluxation. Preservation of the cervical lordosis. INTERVERTEBRAL DISCS: Degenerative osteophytes and endplate changes at multiple levels with mild intervertebral disc space narrowing of C5-6 and C6-7, progressed from prior. SOFT TISSUES: No significant prevertebral soft tissue swelling. RAD/Cerv Spine 2 or 3 Views IMPRESSION: No acute fracture or dislocation identified in the cervical spine. Multilevel degenerative change. Electronically Signed: Tegan Duarte MD at 8:51 EDT ,
[2023-09-04 12:25] LABS: Absolute Lymphocyte Count 0.42 X10^3/uL (0.83-4.51); Basophil# 0.05 X10^3/uL; Basophil% 0.5 % (0-1); Eosinophil# 0.08 X10^3/uL; Eosinophils% 0.8 % (0-5); Hematocrit 43.5 % (40-54); Hemoglobin 13.4 g/dL (13.0-16.5); Lymphocyte # 0.42 X10^3/ul (0.83-4.51); Lymphocyte % 4.5 % (19-41); Mean Corp Hgb Conc 30.8 g/dL (32-36); Mean Corpuscular Hgb 26.9 pg (27.0-32.0); Mean Corpuscular Volume 87.2 fL (80-94); Monocyte# 0.81 X10^3/uL; Monocyte% 8.6 % (0-10); NRBC Flagged by Analyzer 0 % (0-5); Neutrophil # 8.01 X10^3/uL (2.7-7.7); Neutrophil % 85.1 % (47-70); POSITIVE DIFFERENTIAL YES; Platelet Count 375 K/mm3 (150-450); RBC Distribution Width CV 16.4 % (11.6-14.6); RBC Distribution Width SD 52.4 fl (35.1-43.9); Red Blood Count 4.99 M/mm3 (4.6-6.2); White Blood Count 9.4 K/mm3 (4.4-11.0)
[2023-09-04 12:35] LABS: Vitamin D,25 Hydroxy 29.4 ng/mL
[2023-09-04 12:48] LABS: ALB/GLOB Ratio 0.8 RATIO (0.9-2.4); AST(SGOT) 12 U/L (15-37); Alanine Aminotransfer ALT/SGPT 20 U/L (16-61); Albumin, Serum 3.4 g/dL (3.2-5.0); Alkaline Phosphatase 129 U/L (45-117); Anion Gap 6 (5-15); BUN 18 mg/dL (7-18); BUN/Creat Ratio 20.5 RATIO (10-20); Calcium,Total 9.3 mg/dL (8.5-10.1); Chloride 109 mmol/L (98-107); Cholesterol 170 mg/dL (200); Creatinine, Serum 0.88 mg/dL (0.70-1.30); EST Glomerular Filtration Rate 89 mL/min (>60); Est Glom Filt Rate - Afr Amer 108 mL/min (>60); Globulin 4.2 g/dL (2.2-4.2); Glucose 123 mg/dL (74-106); High Density Lipoprotein 81 mg/dL; Potassium 4.1 mmol/L (3.5-5.1); Protein, Total 7.6 g/dL (6.4-8.2); Sodium Level 138 mmol/L (136-145); Triglycerides 70 mg/dL; Very Low Density Lipoprotein 14 mg/dL (5-40)
== END | disposition home or self-care (01) ==
PROVIDERS: PCP Family Medicine Geriatric Medicine; Referring Provider Family Medicine Geriatric Medicine; Visit Provider Family Medicine Geriatric Medicine
DX: M81.0 Age-related osteoporosis without current pathological fracture (principal); I10 Essential (primary) hypertension; E78.5 Hyperlipidemia, unspecified; E55.9 Vitamin D deficiency, unspecified
CPT/HCPCS: 36415; 72040; 80053; 80061; 82306; 84443; 85025

== ENCOUNTER → 2023-10-03 | Outpatient (CLI) | payer MEDICARE, SELFPAY ==
[2023-10-03 12:20] LABS: Color, Urine Yellow (Yellow); Glucose, Dipstick Normal (Normal); Ketone-Dipstick Negative (Negative); Leukocyte Esterase-Dipstick Negative /ul (Negative); Nitrite-Dipstick Negative (Negative); Occult Blood-Urine Negative /ul (Negative); Protein-Dipstick 15 mg/dl (Negative); Specific Gravity, Urine 1.015 (1.002-1.030); Urine Bilirubin Dipstick Negative (Negative); Urine Clarity Sl. Cloudy (Clear); Urine Urobilinogen Normal (Normal)
[2023-10-03 12:52] LABS: Absolute Lymphocyte Count 0.72 X10^3/uL (0.83-4.51); Absolute Neutrophil Count 6.1 X10^3/uL (2.0-7.7); Basophil# 0.06 X10^3/uL; Basophil% 0.8 % (0-1); Eosinophil# 0.06 X10^3/uL; Eosinophils% 0.8 % (0-5); Hematocrit 41.6 % (40-54); Hemoglobin 13.2 g/dL (13.0-16.5); Lymphocyte # 0.72 X10^3/ul (0.83-4.51); Lymphocyte % 9.3 % (19-41); Mean Corp Hgb Conc 31.7 g/dL (32-36); Mean Corpuscular Hgb 27.5 pg (27.0-32.0); Mean Corpuscular Volume 86.7 fL (80-94); Mean Platelet Vol. 10.5 fl (6.2-12.0); Monocyte# 0.72 X10^3/uL; Monocyte% 9.3 % (0-10); NRBC Flagged by Analyzer 0 % (0-5); Neutrophil # 6.14 X10^3/uL (2.7-7.7); Neutrophil % 78.9 % (47-70); Platelet Count 395 K/mm3 (150-450); RBC Distribution Width CV 16.1 % (11.6-14.6); RBC Distribution Width SD 50.8 fl (35.1-43.9); White Blood Count 7.8 K/mm3 (4.4-11.0)
[2023-10-03 13:30] LABS: ALB/GLOB Ratio 0.8 RATIO (0.9-2.4); AST(SGOT) 17 U/L (15-37); Alanine Aminotransfer ALT/SGPT 17 U/L (16-61); Albumin, Serum 3.2 g/dL (3.2-5.0); Alkaline Phosphatase 125 U/L (45-117); Amylase 44 U/L (25-115); Anion Gap 8 (5-15); BUN 13 mg/dL (7-18); Calcium,Total 9.6 mg/dL (8.5-10.1); Chloride 108 mmol/L (98-107); Creatinine, Serum 0.76 mg/dL (0.70-1.30); EST Glomerular Filtration Rate 104 mL/min (>60); Est Glom Filt Rate - Afr Amer 126 mL/min (>60); Glucose 109 mg/dL (74-106); Lipase 20 U/L (13-75); Potassium 3.2 mmol/L (3.5-5.1); Protein, Total 7.2 g/dL (6.4-8.2); Sodium Level 139 mmol/L (136-145)
== END | disposition home or self-care (01) ==
LOC: POLAB3 11:17
PROVIDERS: PCP Family Medicine Geriatric Medicine; Visit Provider Family Medicine Geriatric Medicine
DX: I10 Essential (primary) hypertension (principal); N39.0 Urinary tract infection, site not specified; K85.90 Acute pancreatitis without necrosis or infection, unspecified
CPT/HCPCS: 36415; 80053; 81002; 82150; 83690; 85025

== ENCOUNTER → 2023-10-03 | Outpatient (CLI) | payer MEDICARE, SELFPAY ==
--- NOTE | 2023-10-03 12:14 | CT_ITS ---
STUDY: CT ABDOMEN AND PELVIS WITH CONTRAST REASON FOR EXAM: Male, 83 years old. ABD PAIN. RADIATION DOSAGE (If Supplied By Facility): CTDIvol = ( 11.95 ) mGy, DLP = ( 353.94 ) mGycm TECHNIQUE: Transaxial images were obtained from the dome of the diaphragm to the symphysis pubis with oral contrast. Oral and amp; IV Gastrografin and amp; 75mL Isovue-370 was administered. Sagittal and coronal images were reconstructed. Individualized dose optimization techniques were used for this CT. COMPARISON: Comparison is made with prior study dated May 25, 2019. FINDINGS: The visualized lung bases are unremarkable. The visualized portions of the heart are within normal limits. Normal liver. Normal gallbladder and extrahepatic biliary system. Normal spleen. Normal pancreas. Normal bilateral adrenal glands. Normal right kidney. Tiny nonobstructive calculus in the mid pole calyx of the left kidney. There is a small hiatal hernia. Normal small intestine. There are multiple colonic diverticula consistent with diverticulosis. The appendix is visualized and appears normal. There is diffuse atherosclerotic calcification of the abdominal aorta and its major visceral branches, without a demonstrated aneurysm. Normal inferior vena cava. Normal retroperitoneum. Normal urinary bladder. There are prostatic calcifications. Prostate is enlarged and measures 3.4 cm x 4.3 cm. This causes indentation at the bladder base. Small right inguinal hernia containing fat and the upper lateral right side of the bladder. Small left inguinal hernia containing fat. Mild degree of disc space narrowing at the L5-S1 level. CT/Abdomen/Pelvis WITH Contrast IMPRESSION: Sigmoid diverticulosis. Electronically Signed: Piyush Knowles MD at 14:22 EDT ,
== END | disposition home or self-care (01) ==
LOC: CT 12:02
PROVIDERS: PCP Family Medicine Geriatric Medicine; Referring Provider Family Medicine Geriatric Medicine; Visit Provider Family Medicine Geriatric Medicine
DX: R10.9 Unspecified abdominal pain (principal)
CPT/HCPCS: 74177; Q9967

== ENCOUNTER 2023-10-05 11:06 | Day surgery (SDC) | payer MEDICARE, SELFPAY ==
--- NOTE | 2023-10-05 | LES_PTH ---
PATIENT: MARGAUX NEWSOME LOC: [facility] [place][id number] AGE/SX: 83/M ROOM: RE10/05/[address]: Dr. Mena Valle MD : [id number] BED: DIS: 10/05/2023 SPEC #: [id number] RECD: 10/05/23 15:57 STATUS: EMELY ORTEGA #: [id number] ELSA: 10/05/23 00:[address]: Mena Valle DEPT: SURGICAL PATHOLOGY RECD BY: Astrid Lord ENTERED: 10/06/23 09:18 SP TYPE: Lesion OTHR DR: Dr. 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 Mild actinic keratosis and extensive solar elastosis. Negative for malignancy. See comment. / 10/09/2023 COMMENT Clinical correlation and appropriate follow up are necessary. MICROSCOPIC DESCRIPTION Slides are reviewed. GROSS DESCRIPTION Received in fixative is one container labeled with the patient's name and designated Lesion left ear. The specimen consists of multiple pieces of skin and soft tissue measuring in aggregate 2.5 x 2.0 x 0.3cm. Largest piece is bisected. The entire specimen is submitted in one cassette. / 10/06/2023 TC:5 CPT:20241
[2023-10-05 11:35] VITALS: BP 120/62; PULSE 88; RESP 16; TEMP 36.2; O2SAT 98; BMI 19.3
--- NOTE | 2023-10-05 12:24 | PCM.HP.BLA ---
History and Physical Date of Admission: 10/05/23 The patient is examined and there are no changes to the H&P dated 10/04/2023. 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 He presents for excision of the neoplasm with submission for pathologic evaluation. He is aware of the potential need for further surgery depending on the final pathology. Informed consent was obtained. 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
[2023-10-05 12:55] VITALS: BP 110/63; BP 115/55; O2SAT 96; O2SAT 97; O2SAT 98
[2023-10-05] MEDS: Lidocaine 1% /Epi 1:100 9 ML, Sodium Bicarbonate 1 MEQ OPERA.SITE (13:25)
[2023-10-05] MEDS: Silver Sulfadiazine 1% Crm 50 gm Bottle 1 APPLIC TOPICAL (14:05)
--- NOTE | 2023-10-05 14:07 | DCINST_ITS ---
Discharge Instructions Dressing / Incision Additional Dressing/Incision Instructions:: Keep your head elevated (recliner position) at night for the next 4 nights. May shower over the site but do not scrub. Apply the Silvadene cream once a day after showering. Follow Up Care Please Follow Up With: Mena Valle MD When: In 1 week Test Results: Test results from this visit will be discussed in further detail at your follow- up appointment, if applicable. Discharge Plan Admission Attending Provider: Mena Valle Primary Care Provider: Alexander Steiner Chi Instructions Print Language: Zimbabwean Discharge Orders/Prescriptions Prescriptions: No Action terazosin 1 mg capsule 1 mg PO DAILY albuterol sulfate 2.5 mg/0.5 mL solution for nebulization 2.5 mg inhalation Q6H PRN (Reason: shortness of breath or wheezing) amlodipine 10 mg tablet 10 mg PO DAILY Qty: 90 3RF atorvastatin 20 mg tablet 20 mg PO DAILY Qty: 90 2RF tamsulosin 0.4 mg capsule 0.4 mg PO DAILY ipratropium-albuterol 0.5 mg-3 mg(2.5 mg base)/3 mL solution for nebulization 3 ml inhalation BID budesonide 0.25 mg/2 mL suspension for nebulization 0.25 mg inhalation BID Calcium 600 + D(3) 600 mg-5 mcg (200 unit) capsule 1 cap PO BID Qty: 180 1RF zoledronic xfge-pmeyvirc-kxlzh 5 mg/100 mL piggyback 1 ea .Route ONCE Qty: 100 0RF Patient Comments: once a year, last summer Rx Instructions: infuse over 20 minutes multivitamin Tablet 1 tab PO DAILY meloxicam 7.5 mg tablet 7.5 mg PO DAILY Patient Comments: upset stomach, took a few days off gabapentin 100 mg capsule 100 mg PO QDAY aspirin 81 MG tablet,delayed release (DR/EC) 81 mg PO DAILY Patient Comments: INSTRUCTED TO CALL ABOUT STOPPING PRIOR TO PROCEDURE omeprazole 40 MG capsule,delayed release(DR/EC) 40 mg PO DAILY Trelegy Ellipta 100-62.5-25 mcg blister with device 1 inh inhalation DAILY amoxicillin-pot clavulanate 875-125 mg tablet 1 tab PO BID levothyroxine 88 mcg tablet 88 mcg PO DAILY Qty: 90 1RF Referrals / Follow Up: Alexander Steiner Chi, MD [Primary Care Provider] - Disposition Disposition (needs filled in before D/C Order can be placed): Home, Self Care
--- NOTE | 2023-10-05 14:10 | OP.PCM_ITS ---
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 He presents for excision of the neoplasm with submission for pathologic evaluation. He is aware of the potential need for further surgery depending on the resulting pathology. The patient is brought to the operating room and placed on the operating room table in the supine position. The left ear is prepped and draped in the usual sterile fashion. 1% Xylocaine buffered with sodium bicarb is then injected in the periphery and beneath the neoplasm. The site is then excised down to cartil age and passed off the operative field to be sent to pathology. The cartilage prominence is shaved anteriorly. The surrounding skin is then undermined in a perichondrial plane and advanced over the site. This is approximated with interrupted chromic suture. Silvadene is applied to the wound. He tolerated the procedure well was taken to the recovery area in an awake and stable condition. Needle and sponge counts are correct. Complications None Admit VTE Documentation VTE Mechan Device Prophylaxis: None Reason prophylaxis not ordered:: Treatment Not Indicated
[2023-10-05 14:12] VITALS: BP 120/62; BP 123/52; PULSE 79; RESP 16; TEMP 36.8; O2SAT 95
[2023-10-05 14:30] VITALS: BP 120/62; BP 122/76; PULSE 77; RESP 16; TEMP 36.2; O2SAT 96
== END 2023-10-05 14:35 | disposition home or self-care (01) ==
LOC: SDC 11:09 → AC 11:09
PROVIDERS: PCP Family Medicine Geriatric Medicine; Referring Provider Plastic Surgery; Visit Provider Plastic Surgery
PROC: (CPT 11442; principal; 2023-10-05 12:45)
DX: D48.5 Neoplasm of uncertain behavior of skin (principal); L57.0 Actinic keratosis; Z79.51 Long term (current) use of inhaled steroids; Z79.899 Other long term (current) drug therapy; Z79.82 Long term (current) use of aspirin
CPT/HCPCS: 11442; 13151; 88305

== ENCOUNTER 2023-10-11 13:58 | Outpatient (CLI) | payer MEDICARE, SELFPAY ==
[2023-10-11] MEDS: 0.9% Normal Saline (1000mL) 1,000 ML 999 ML IV ×2 (14:14→15:23)
[2023-10-11 14:16] VITALS: BP 123/57; PULSE 68; RESP 16; TEMP 36.1; O2SAT 96; BMI 18.9
[2023-10-11] MEDS: 0.9% NaCl Peripheral Flush Adult/Peds IV (14:16)
[2023-10-11 14:26] LABS: Absolute Lymphocyte Count 0.77 X10^3/uL (0.83-4.51); Basophil# 0.08 X10^3/uL; Eosinophil# 0.08 X10^3/uL; Hematocrit 42.5 % (40-54); Hemoglobin 13.4 g/dL (13.0-16.5); Lymphocyte # 0.77 X10^3/ul (0.83-4.51); Lymphocyte % 9.9 % (19-41); Mean Corp Hgb Conc 31.5 g/dL (32-36); Mean Corpuscular Volume 85.5 fL (80-94); Mean Platelet Vol. 9.8 fl (6.2-12.0); Monocyte% 10.3 % (0-10); NRBC Flagged by Analyzer 0 % (0-5); Neutrophil # 5.98 X10^3/uL (2.7-7.7); Neutrophil % 76.9 % (47-70); Platelet Count 301 K/mm3 (150-450); RBC Distribution Width CV 16.2 % (11.6-14.6); RBC Distribution Width SD 50.2 fl (35.1-43.9); Red Blood Count 4.97 M/mm3 (4.6-6.2); White Blood Count 7.8 K/mm3 (4.4-11.0)
[2023-10-11 15:00] LABS: ALB/GLOB Ratio 0.8 RATIO (0.9-2.4); AST(SGOT) 15 U/L (15-37); Alanine Aminotransfer ALT/SGPT 19 U/L (16-61); Albumin, Serum 3.3 g/dL (3.2-5.0); Alkaline Phosphatase 137 U/L (45-117); Anion Gap 8 (5-15); BUN 20 mg/dL (7-18); BUN/Creat Ratio 24.4 RATIO (10-20); Chloride 110 mmol/L (98-107); Creatinine, Serum 0.82 mg/dL (0.70-1.30); EST Glomerular Filtration Rate 96 mL/min (>60); Est Glom Filt Rate - Afr Amer 116 mL/min (>60); Estimated Creatinine Clearance 54.85 ml/min; Globulin 4.4 g/dL (2.2-4.2); Glucose 103 mg/dL (74-106); Potassium 3.9 mmol/L (3.5-5.1); Protein, Total 7.7 g/dL (6.4-8.2); Sodium Level 141 mmol/L (136-145)
[2023-10-11 15:02] LABS: Vitamin D,25 Hydroxy 30.9 ng/mL
[2023-10-11 16:28] VITALS: BP 120/53; PULSE 74
== END 2023-10-11 23:59 | disposition home or self-care (01) ==
LOC: MEDOUTP 13:59
PROVIDERS: Internal Medicine Endocrinology, Diabetes & Metabolism; PCP Family Medicine Geriatric Medicine; Referring Provider Family Medicine Geriatric Medicine; Visit Provider Family Medicine Geriatric Medicine
DX: E86.0 Dehydration (principal); I10 Essential (primary) hypertension; E55.9 Vitamin D deficiency, unspecified
CPT/HCPCS: 96360; 96361; 80053; 82306; 85025; J7030; A4216

== ENCOUNTER 2023-10-20 09:42 | Outpatient (CLI) | payer MEDICARE, SELFPAY ==
[2023-10-20 09:55] VITALS: BP 135/76; PULSE 94; RESP 16; TEMP 36; O2SAT 97; BMI 19.1
[2023-10-20] MEDS: 0.9% NaCl Peripheral Flush Adult/Peds IV (10:05)
[2023-10-20] MEDS: Zoledronic Acid 5 MG 100 ML 300 MG IV (10:09)
[2023-10-20 10:38] VITALS: BP 143/73; PULSE 78; RESP 16; TEMP 36.3; O2SAT 96
== END 2023-10-20 23:59 | disposition home or self-care (01) ==
LOC: MEDOUTP 09:43
PROVIDERS: PCP Family Medicine Geriatric Medicine; Referring Provider Internal Medicine Endocrinology, Diabetes & Metabolism; Visit Provider Internal Medicine Endocrinology, Diabetes & Metabolism
DX: M81.0 Age-related osteoporosis without current pathological fracture (principal)
CPT/HCPCS: 96365; A4216; J3489

== ENCOUNTER → 2023-10-21 | Outpatient (CLI) | payer MEDICARE, SELFPAY ==
--- NOTE | 2023-10-21 07:35 | MRI_ITS ---
HISTORY: RADICULOPATHY, PAIN INTO R SHOULDER. TECHNIQUE: Multiplanar and multisequence MR images of the cervical spine were obtained without contrast. 276 images. COMPARISON: XR 09/04/2023. FINDINGS: VERTEBRAE: Vertebral body heights maintained. Mild degenerative endplate changes. No other significant bone marrow signal abnormality. VERTEBRAL ALIGNMENT: No anterior or posterior subluxation. SPINAL CORD: Cervical cord signal and morphology within normal limits. SOFT TISSUES: No prevertebral fluid collection. INTERVERTEBRAL DISCS: C2-3: No significant posterior disc protrusion or central canal stenosis. Uncovertebral and facet arthropathy with mild right foraminal narrowing. C3-4: Mild disc bulge with uncovertebral and facet arthropathy resulting in mild central canal stenosis foraminal narrowing. C4-5: Mild posterior disc bulge osteophyte complex with uncovertebral and facet arthropathy resulting in mild central canal stenosis and right foraminal narrowing. C5-6, C6-7: Mild posterior disc bulge osteophyte complex with uncovertebral and facet arthropathy resulting in minimal narrowing of thecal sac and mild bilateral foraminal narrowing. C7-T1: No significant posterior disc protrusion, central canal stenosis, or foraminal narrowing. MRI/Spine Cervical (Routine) IMPRESSION: Multilevel degenerative disc disease of the cervical spine resulting in mild spinal canal stenosis and right foraminal narrowing as above. Electronically Signed: Tegan Duarte MD at 9:58 EDT ,
== END | disposition home or self-care (01) ==
LOC: MRI 07:11
PROVIDERS: PCP Family Medicine Geriatric Medicine; Referring Provider Anesthesiology Pain Medicine; Visit Provider Anesthesiology Pain Medicine
DX: M54.12 Radiculopathy, cervical region (principal)
CPT/HCPCS: 72141

== ENCOUNTER → 2023-10-25 | Outpatient (CLI) | payer MEDICARE, SELFPAY ==
--- NOTE | 2023-10-26 14:26 | STRESSREP ---
Stress Test Report Date: 10/25/2023 Procedure: Pharmacologic stress nuclear imaging study Indications: Shortness of breath Consent: Per the patient Procedure: The patient underwent pharmacologic (Regadenoson) evaluation with a peak heart rate of 100 beats per minute (71%predicted maximal heart rate) and a peak blood pressure of 154/98 mmHg. The baseline ECG demonstrated normal sinus rhythm, occasional PVCs. EKG during lexiscan infusion revealed no significant ischemic changes. EKG post infusion revealed no significant ischemic changes [There were no cardiac dysrhythmias pretest, during pharmacologic infusion, or recovery]. [There was no complaint of chest discomfort during pharmacologic infusion or recovery]. The examination was discontinued secondary to completion of protocol. Impression: 1. Lexiscan stress test test is negative for Lexiscan infusion induced EKG changes of ischemia. 2. Lexiscan stress test test is negative for Lexiscan infusion induced chest pain. 3. Results of the nuclear portion of the test is as below Myocardial perfusion imaging study: Technique: The patient was injected with 11.7 millicuries of technetium 99m Cardiolite and subsequently rest SPECT Cardiolite nuclear imaging was obtained in the horizontal long, vertical long, and short axis views. The patient underwent pharmacologic [Regadenoson 0.4mg] evaluation. Please see above for details. The patient was injected with 33 millicuries of technetium 99m Cardiolite and subsequently stress SPECT Cardiolite nuclear imaging was obtained in the horizontal long, vertical long, and short axis views. A gated Cardiolite study at peak stress was obtained. Interpretation: Rest and stress SPECT Cardiolite nuclear imaging status post realignment, normalization, and attenuation correction demonstrate no evidence of significant ischemia or infarction. Gated images reveal no significant regional wall motion abnormalities. The reported LVEF is 57%. Impression: 1. There is no evidence of significant ischemia or infarction. 2. Estimated ejection fraction is 57%. This note was generated with [employer] software. It may contain incorrect words, spelling, and punctuation that were not noted in checking the note before signing.
== END | disposition home or self-care (01) ==
PROVIDERS: PCP Family Medicine Geriatric Medicine; Referring Provider Internal Medicine Pulmonary Disease; Visit Provider Internal Medicine Pulmonary Disease
DX: R06.00 Dyspnea, unspecified (principal); J44.9 Chronic obstructive pulmonary disease, unspecified; R91.1 Solitary pulmonary nodule
CPT/HCPCS: 78452; 93017; A9500; A4216

== ENCOUNTER → 2023-11-23 | Outpatient (CLI) | payer MEDICARE, SELFPAY ==
--- NOTE | 2023-11-23 08:42 | CT_ITS ---
EXAM: CT CHEST WITHOUT INTRAVENOUS CONTRAST CLINICAL INDICATION: follow up treated lung cancer -- please compare to prior TECHNIQUE: Helically acquired images were obtained of the chest without intravenous contrast. This CT exam was performed using one or more of the following dose reduction techniques: automated exposure control, adjustment of the mA and/or kV according to patient size, and/or use of iterative reconstruction technique. COMPARISON: No relevant prior studies available. FINDINGS: LUNGS AND PLEURAL SPACES: Prior dated 07/24/2023 pleural parenchymal scarring involving the right lung apex again noted. The nodular component appears increased in size from prior exam now measuring 17 mm in maximum diameter prior maximum diameter of 12 mm. This may represent residual/recurrent neoplasm. Prominent diffuse centrilobular pulmonary emphysema again noted. Lungs are otherwise clear. No mass. No pneumothorax. HEART: Stable normal heart size. Prominent coronary artery calcification again seen. MEDIASTINUM: Normal. No mediastinal or hilar adenopathy. Esophagus is unremarkable. No hiatal hernia. BONES/JOINTS: No suspicious lytic or blastic abnormality. VASCULATURE: No aortic aneurysm. CT/Chest without Contrast IMPRESSION: Slight increase in the nodular component of the right apical pulmonary scarring raising possibility of residual or recurrent neoplasm. Follow-up PET scanning recommended. Electronically Signed: Karlo Wen MD at 9:10 EDT ,
== END | disposition home or self-care (01) ==
LOC: CT 08:24
PROVIDERS: PCP Family Medicine Geriatric Medicine; Referring Provider Student in an Organized Health Care Education/Training Program; Visit Provider Student in an Organized Health Care Education/Training Program
DX: C34.11 Malignant neoplasm of upper lobe, right bronchus or lung (principal)
CPT/HCPCS: 71250

== ENCOUNTER → 2024-02-26 | Outpatient (CLI) | payer MEDICARE, SELFPAY | END | disposition home or self-care (01) | LOC: CT 13:08 | PROVIDERS: PCP Family Medicine Geriatric Medicine; Referring Provider Student in an Organized Health Care Education/Training Program; Visit Provider Student in an Organized Health Care Education/Training Program | DX: C34.11 Malignant neoplasm of upper lobe, right bronchus or lung (principal) | CPT/HCPCS: 71250 ==

== ENCOUNTER → 2024-03-06 | Outpatient (CLI) | payer MEDICARE, SELFPAY ==
[2024-03-06 09:59] LABS: Absolute Lymphocyte Count 1.02 X10^3/uL (0.83-4.51); Absolute Neutrophil Count 6.5 X10^3/uL (2.0-7.7); Basophil# 0.08 X10^3/uL; Basophil% 0.9 % (0-1); Eosinophils% 1.2 % (0-5); Hematocrit 40.9 % (40-54); Hemoglobin 13.1 g/dL (13.0-16.5); Lymphocyte # 1.02 X10^3/ul (0.83-4.51); Lymphocyte % 12.1 % (19-41); Mean Corpuscular Hgb 26.7 pg (27.0-32.0); Mean Corpuscular Volume 83.3 fL (80-94); Monocyte# 0.75 X10^3/uL; Monocyte% 8.9 % (0-10); NRBC Flagged by Analyzer 0 % (0-5); Neutrophil # 6.45 X10^3/uL (2.7-7.7); Neutrophil % 76.3 % (47-70); Platelet Count 288 K/mm3 (150-450); RBC Distribution Width CV 18.6 % (11.6-14.6); RBC Distribution Width SD 55.6 fl (35.1-43.9); Red Blood Count 4.91 M/mm3 (4.6-6.2); White Blood Count 8.5 K/mm3 (4.4-11.0)
[2024-03-06 10:41] LABS: ALB/GLOB Ratio 0.9 RATIO (0.9-2.4); AST(SGOT) 11 U/L (15-37); Alanine Aminotransfer ALT/SGPT 19 U/L (16-61); Albumin, Serum 3.5 g/dL (3.2-5.0); Alkaline Phosphatase 119 U/L (45-117); Anion Gap 7 (5-15); BUN 13 mg/dL (7-18); BUN/Creat Ratio 15.6 RATIO (10-20); Calcium,Total 9.7 mg/dL (8.5-10.1); Chloride 112 mmol/L (98-107); Cholesterol 173 mg/dL (200); Creatinine, Serum 0.84 mg/dL (0.70-1.30); EST Glomerular Filtration Rate 94 mL/min (>60); Est Glom Filt Rate - Afr Amer 113 mL/min (>60); Globulin 3.9 g/dL (2.2-4.2); Glucose 107 mg/dL (74-106); High Density Lipoprotein 83 mg/dL; Potassium 3.8 mmol/L (3.5-5.1); Protein, Total 7.4 g/dL (6.4-8.2); Sodium Level 141 mmol/L (136-145); Thyroid Stim Hormone (TSH) 0.709 uIU/mL (0.358-3.740); Triglycerides 74 mg/dL; Very Low Density Lipoprotein 15 mg/dL (5-40)
[2024-03-06 10:52] LABS: Vitamin D,25 Hydroxy 27.4 ng/mL
== END | disposition home or self-care (01) ==
PROVIDERS: PCP Family Medicine Geriatric Medicine; Visit Provider Family Medicine Geriatric Medicine
DX: I10 Essential (primary) hypertension (principal); E55.9 Vitamin D deficiency, unspecified; E78.5 Hyperlipidemia, unspecified
CPT/HCPCS: 36415; 80053; 80061; 82306; 84443; 85025

== ENCOUNTER → 2024-03-26 | Outpatient (CLI) | payer MEDICARE, SELFPAY | END | disposition home or self-care (01) | LOC: POLAB3 12:00 | PROVIDERS: PCP Family Medicine Geriatric Medicine; Visit Provider Family Medicine Geriatric Medicine | DX: R68.83 Chills (without fever) (principal); Z11.52 Encounter for screening for COVID-19 | CPT/HCPCS: 87631 ==

== ENCOUNTER → 2024-04-12 | Outpatient (CLI) | payer MEDICARE, SELFPAY ==
--- NOTE | 2024-04-12 12:03 | RAD_ITS ---
INDICATION: WHEEZING EXAMINATION/TECHNIQUE: X-RAY - XR Chest 2 Views COMPARISON: None. FINDINGS: Chronic lung changes. Hyperinflation. Tortuous and calcified thoracic aorta. The heart is not enlarged. No pleural effusion or pneumothorax. Degenerative changes of the thoracic spine. RAD/Chest PA and Lateral IMPRESSION: No acute radiographic abnormalities. COPD. Electronically Signed: Filiberto Santacruz MD at 10:25 [facility] ,
== END | disposition home or self-care (01) ==
PROVIDERS: PCP Family Medicine Geriatric Medicine; Visit Provider Family Medicine Geriatric Medicine
DX: R06.2 Wheezing (principal); R68.83 Chills (without fever)
CPT/HCPCS: 71046; 87631

== ENCOUNTER → 2024-05-14 | Outpatient (CLI) | payer MEDICARE, SELFPAY ==
[2024-05-14 10:54] LABS: Absolute Lymphocyte Count 1.31 X10^3/uL (0.83-4.51); Absolute Neutrophil Count 3.7 X10^3/uL (2.0-7.7); Basophil# 0.03 X10^3/uL; Basophil% 0.5 % (0-1); Eosinophil# 0.12 X10^3/uL; Hematocrit 38.4 % (40-54); Hemoglobin 11.9 g/dL (13.0-16.5); Lymphocyte # 1.31 X10^3/ul (0.83-4.51); Lymphocyte % 21.5 % (19-41); Mean Corpuscular Hgb 26.4 pg (27.0-32.0); Mean Corpuscular Volume 85.1 fL (80-94); Mean Platelet Vol. 9.8 fl (6.2-12.0); Monocyte# 0.89 X10^3/uL; Monocyte% 14.6 % (0-10); NRBC Flagged by Analyzer 0 % (0-5); Neutrophil # 3.72 X10^3/uL (2.7-7.7); Neutrophil % 61.1 % (47-70); Platelet Count 341 K/mm3 (150-450); RBC Distribution Width CV 16.7 % (11.6-14.6); RBC Distribution Width SD 52.6 fl (35.1-43.9); Red Blood Count 4.51 M/mm3 (4.6-6.2); White Blood Count 6.1 K/mm3 (4.4-11.0)
== END | disposition home or self-care (01) ==
LOC: LAB 10:36
PROVIDERS: PCP Family Medicine Geriatric Medicine; Referring Provider Internal Medicine Pulmonary Disease; Visit Provider Internal Medicine Pulmonary Disease
DX: J44.9 Chronic obstructive pulmonary disease, unspecified (principal)
CPT/HCPCS: 36415; 85025

== ENCOUNTER → 2024-05-28 | Outpatient (CLI) | payer MEDICARE, SELFPAY ==
--- NOTE | 2024-05-28 12:36 | RAD_ITS ---
EXAM: XR Chest, 2 Views CLINICAL INDICATION: TECHNIQUE: Frontal and lateral views of the chest. COMPARISON: No relevant prior studies available. FINDINGS: LUNGS AND PLEURAL SPACES: Unremarkable. No consolidation. No pneumothorax. HEART: Unremarkable. No cardiomegaly. MEDIASTINUM: Unremarkable. Normal mediastinal contour. BONES/JOINTS: Unremarkable. No acute fracture. RAD/Chest PA and Lateral IMPRESSION: No acute cardiopulmonary process. Reading [facility]
== END | disposition home or self-care (01) ==
PROVIDERS: PCP Family Medicine Geriatric Medicine; Referring Provider Family Medicine Geriatric Medicine; Visit Provider Family Medicine Geriatric Medicine
DX: R06.2 Wheezing (principal); R68.83 Chills (without fever)
CPT/HCPCS: 71046; 87631

== ENCOUNTER → 2024-06-27 | Outpatient (CLI) | payer MEDICARE, SELFPAY ==
--- NOTE | 2024-06-27 13:00 | CT_ITS ---
PROCEDURE: CHEST WITH CONTRAST 06/27/2024 REASON FOR EXAM: FOLLOW UP TREATED LUNG CANCER Treated right upper lobe lung carcinoma. TECHNIQUE: Prone and supine chest CT with intravenous contrast, high resolution CT (HRCT) protocol. Coronal and Sagittal reconstruction series were provided. CONTRAST: Isovue-300 VOLUME: 100 mL One or more dose reduction techniques were used (e.g., Automated exposure control, adjustment of the mA and/or kV according to patient size, use of iterative reconstruction technique). RADIATION DOSE SUMMARY: CTDlvol: 7.2 mGy DLP: 170.88 mGycm COMPARISON: Comparison is made with prior study dated February 26, 2024. FINDINGS: Hardware: None Lymph nodes: No mediastinal hilar or axillary lymphadenopathy. Heart and Vasculature: Normal heart size. No pericardial effusion. Atherosclerotic calcifications of the thoracic aorta. Pulmonary arteries are unremarkable. Coronary artery calcification. Lungs and Airways: Essentially stable 1 cm x 1.3 cm spiculated mass in the medial aspect of the right upper lobe. Stable increased markings in the surrounding pulmonary parenchyma suggestive of possible post radiation scarring. No new mass lesion is seen. Pleura: Unremarkable. Upper Abdomen: Unremarkable Bones: Bone windows are unremarkable. CT/Chest WITH Contrast IMPRESSION: Coronary artery calcification (CAC) is is present Stable 1.3 cm x 1 cm spiculated nodule in the medial aspect of the right upper lobe. Reading Location: [place] [id number]
== END | disposition home or self-care (01) ==
LOC: CT 12:48
PROVIDERS: PCP Family Medicine Geriatric Medicine; Referring Provider Student in an Organized Health Care Education/Training Program; Visit Provider Student in an Organized Health Care Education/Training Program
DX: Z08 Encounter for follow-up examination after completed treatment for malignant neoplasm (principal); C34.11 Malignant neoplasm of upper lobe, right bronchus or lung
CPT/HCPCS: 71260; Q9967

== ENCOUNTER → 2024-08-12 | Outpatient (CLI) | payer MEDICARE, SELFPAY ==
[2024-08-12 12:17] LABS: Absolute Lymphocyte Count 0.94 X10^3/uL (0.83-4.51); Absolute Neutrophil Count 4.3 X10^3/uL (2.0-7.7); Basophil# 0.09 X10^3/uL; Basophil% 1.4 % (0-1); Eosinophil# 0.13 X10^3/uL; Eosinophils% 2.1 % (0-5); Hematocrit 36.3 % (40-54); Hemoglobin 11.2 g/dL (13.0-16.5); Lymphocyte # 0.94 X10^3/ul (0.83-4.51); Mean Corp Hgb Conc 30.9 g/dL (32-36); Mean Corpuscular Hgb 24.3 pg (27.0-32.0); Mean Corpuscular Volume 78.9 fL (80-94); Mean Platelet Vol. 10.9 fl (6.2-12.0); Monocyte# 0.76 X10^3/uL; Monocyte% 12.1 % (0-10); NRBC Flagged by Analyzer 0 % (0-5); Neutrophil # 4.32 X10^3/uL (2.7-7.7); Neutrophil % 69.1 % (47-70); Platelet Count 325 K/mm3 (150-450); RBC Distribution Width CV 17.2 % (11.6-14.6); RBC Distribution Width SD 49.9 fl (35.1-43.9); White Blood Count 6.3 K/mm3 (4.4-11.0)
[2024-08-12 12:55] LABS: ALB/GLOB Ratio 1.4 RATIO (0.9-2.4); AST(SGOT) 17 U/L (<=37); Alanine Aminotransfer ALT/SGPT 8 U/L (<=46); Alkaline Phosphatase 114 U/L (40-129); Anion Gap 11 (5-15); BUN 13 mg/dL (4-19); CPK Total, Creatine Kinase 57 U/L (24-195); Calcium,Total 9.5 mg/dL (7.6-11.0); Carbon Dioxide 22.4 mmol/L (21.0-32.0); Chloride 107 mmol/L (98-108); Creatinine, Serum 0.74 mg/dL (0.70-1.20); EST Glomerular Filtration Rate 91 (>60); Globulin 2.8 g/dL (2.2-4.2); Glucose 99 mg/dL (70-99); Potassium 3.7 mmol/L (3.3-5.1); Protein, Total 6.9 g/dL (5.9-8.4); Sodium Level 140 mmol/L (133-145); Total Bilirubin 0.43 mg/dL (0.00-1.30); Troponin T High Sensitivity 15 ng/L (<=22)
[2024-08-13 03:07] LABS: Myoglobin, Serum 31 ng/mL (28-72)
== END | disposition home or self-care (01) ==
LOC: LAB 11:00
PROVIDERS: PCP Family Medicine Geriatric Medicine; Referring Provider Family Medicine Geriatric Medicine; Visit Provider Family Medicine Geriatric Medicine
DX: I10 Essential (primary) hypertension (principal); R55 Syncope and collapse
CPT/HCPCS: 36415; 80053; 82550; 83874; 84484; 85025

== ENCOUNTER → 2024-08-22 | Outpatient (CLI) | payer MEDICARE, SELFPAY ==
--- NOTE | 2024-08-22 08:54 | EKG12_ITS ---
Test Reason : NEAR SYNCOPE Blood Pressure : */* mmHG Vent. Rate : 82 BPM Atrial Rate : 82 BPM P-R Int : 144 ms QRS Dur : 86 ms QT Int : 372 ms P-R-T Axes : 85 -42 62 degrees QTcB Int : 434 ms Sinus rhythm with Premature atrial complexes Left axis deviation Abnormal ECG Confirmed by Sánchez Pena ([id number]), associate entertainment editor RICARDO PATEL ([id number]) on 08/26/2024 11:30:26 AM Referred By: Alexander Steiner Confirmed By: Sánchez Pena
--- NOTE | 2024-08-22 08:54 | CDU_ITS ---
Reason For Study Reason For Study: Near syncope Rt. Velocities/BP Lt. Velocities/BP Prox CCA 75.9/16.3 cm/sec. Prox CCA 88.8/24.9 cm/sec. Mid CCA 104.7/22.3 cm/sec. Mid CCA 74/21.2 cm/sec. Dist CCA 87.2/22.3 cm/sec. Dist CCA 67.9/20 cm/sec. Prox ICA 135.7/29.8 cm/sec. Prox ICA 202.6/53.3 cm/sec. Mid ICA 124.7/37.1 cm/sec. Mid ICA 174.1/38 cm/sec. Dist ICA 133.8/31.6 cm/sec. Dist ICA 91.2/24.9 cm/sec. Rt. ICA/CCA = 1.30. Lt. ICA/CCA = 2.74. Prox ECA 122.9/15.2 cm/sec. Prox ECA 149.9/27 cm/sec. Lt. Vert. 60.5/21.2 cm/sec. Right Extracranial There is homogeneous, smooth atherosclerotic plaque noted in the right common carotid artery. There is heterogeneous, irregular atherosclerotic plaque noted in the right internal carotid artery. There is heterogeneous, irregular atherosclerotic plaque noted in the right external carotid artery. Flow could not be demonstrated in the right vertebral artery. Left Extracranial There is heterogeneous, irregular atherosclerotic plaque noted in the left common carotid artery. There is heterogeneous, irregular atherosclerotic plaque noted in the left internal carotid artery. There is heterogeneous, irregular atherosclerotic plaque noted in the left external carotid artery. Antegrade flow is noted in the left vertebral artery. Procedure This is a Carotid Duplex examination using B-mode, color flow and specral Doppler. Carotid Duplex [id number]. Exam performed in department. VL/Carotid Duplex Ultrasound Interpretation Summary Mild (<50%) stenosis right extracranial internal carotid. Moderate (50-69%) ale nosis left extracranial internal carotid. Flow was not detected in the right vertebral artery, suggesting that it may be occluded. Flow within the left verterbral artery is antegrade. Ordering Physician: Alexander Steiner Chi Referring Physician: Alexander Steiner Chi Performed By: Naya Aranda RVT
== END | disposition home or self-care (01) ==
LOC: CVS 08:50
PROVIDERS: PCP Family Medicine Geriatric Medicine; Referring Provider Family Medicine Geriatric Medicine; Visit Provider Family Medicine Geriatric Medicine
DX: R55 Syncope and collapse (principal)
CPT/HCPCS: 93005; 93880

== ENCOUNTER → 2024-09-11 | Outpatient (CLI) | payer MEDICARE, SELFPAY ==
--- NOTE | 2024-09-11 06:27 | CT_ITS ---
PROCEDURE: CTA HEAD AND NECK W/ CONTRAST 09/11/2024 REASON FOR EXAM: OCCLUSION AND STENOSIS OF UNSPECIFIED CAROTID ARTERY TECHNIQUE: CTA HEAD AND NECK W/ CONTRAST Multiplanar Sagittal and Coronal images were obtained. CONTRAST: Isovue 370 VOLUME: 100 mL One or more dose reduction techniques were used (e.g., Automated exposure control, adjustment of the mA and/or kV according to patient size, use of iterative reconstruction technique). RADIATION DOSE SUMMARY: CTDlvol: 31 mGy DLP: 1467.27 mGycm COMPARISON: None FINDINGS: Aortic Arch: Normal size and branching pattern. Mild atherosclerotic plaque. Brachiocephalic and Subclavians: Mild atherosclerotic plaque without significant stenosis. RIGHT Carotid: Right CCA: Unremarkable. Right ICA: Moderate calcified and soft plaque. Maximum stenosis (NASCET): Greater than 70% % Right ECA: Unremarkable. LEFT Carotid: Left CCA: Mild calcified and soft plaque. Left ICA: High-grade stenosis Maximum stenosis (NASCET): Near occlusion % Left ECA: Unremarkable. Vertebrals: Nonvisualization of the right vertebral artery RIGHT Vertebral: Nonvisualization of the right vertebral artery LEFT Vertebral: Patent left vertebral artery. Anatomy: [place] anatomy is normal. Aneurysm or avm: No intracranial aneurysms or large vascular malformations are identified. Anterior cerebral arteries: Unremarkable: Middle cerebral arteries: Unremarkable. Basilar artery: Unremarkable. Posterior cerebral arteries: Unremarkable. Other major branches of the posterior circulation: Unremarkable. Major venous structures: Unremarkable. 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 Nonvisualization of the right vertebral artery. Dominant left vertebral artery. Reading Location: [place] [id number]
--- OUTSIDE RECORDS SUMMARY | 2024-09-11 06:47 | XMS RPT_ITS | CCD ---
Author Organization [facility] Care Team Providers Care Functional Mental Disability Teacher Name Role Phone Jatin CHEN, Denzel Primary Care Provider Tony Auguste MD, Micah Unavailable Jatin, Dr. Alexander Sanford Primary Care Provider Jatin, Dr. Alexander Sanford Referring Provider Taurus PNEUMATIC DEICER INSPECTOR, RONNIE Sanchez Attending Provider Jatin, Dr. Alexander Sanford Primary Care Provider Jatin, Dr. Alexander Sanford Referring Provider Dr. Chemo Chacon Attending Provider Dr. Marcelino Nolen Attending Provider [phone] Jatin, Dr. Alexander Sanford Primary Care Provider Jatin, Dr. Alexander Sanford Referring Provider Jatin CHEN, Denzel Primary Care Provider Tony Auguste MD, Micah Unavailable JATIN, DENZEL Primary Care Unavailable DEAN BEDOYA Attending Unavailable DEAN BEDOYA Referring Unavailable JATIN, ALEXANDERJOSE MARIA Referring Unavailable DEAN BEDOYA Attending Unavailable JATIN, ALEXANDER-GIOVANNI Primary Care Unavailable Jatin, Dr. Alexander Sanford Primary Care Provider Jatin, Dr. Alexander Sanford Referring Provider [phone] Dr. Alejandro Machado Attending Provider [phone] Alejandro Machado Referring Provider [phone] Jatin, Dr. Alexander Sanford Primary Care Provider Dr. Alejandro Machado Attending Provider Jatin, Dr. Alexander Sanford Referring Provider Jatin, Dr. Alexander Sanford Primary Care Provider Jatin, Dr. Alexander Sanford Referring Provider Carter, Dr. Allen Attending Provider BANDAR TO Primary Care Unavailable MARGOT POLK Referring Unavailable Gregory Rodriguez MD Attending Provider Carter DO, Dr. Allen Attending Provider Carter AGUILAR, Dr. Allen Referring Provider Jatin CHEN, Dr. Alexander Sanford Primary Care Provider [phone] Jatin CHEN, Dr. Alexander Sanford Attending Provider Tony CHEN, Dr. Micah Auguste Attending Provider Tony CHEN, Dr. Micah Auguste Referring Provider [phone] Jatin CHEN, Dr. Alexander Sanford Referring Provider Jatin CHEN, Dr. Alexander Sanford Primary Care Provider [phone] Carter AGUILAR, Dr. Allen Attending Provider Carter AGUILAR, Dr. Allen Referring Provider Jatin CHEN, Dr. Alexander Sanford Primary Care Provider [phone] Jatin CHEN, Dr. Alexander Sanford Attending Provider [phone] Becky CHEN, Dr. Pozo Attending Provider Laura Araujo Attending Provider Jatin, Alexander Chi Attending Unavailable Jatin, Alexander Chi Primary Care Unavailable Jatin, Alexander Chi Primary Care Unavailable Jatin, Alexander Chi Attending Unavailable Jatin, Alexander Chi Attending Unavailable Jatin, Alexander Chi Primary Care Unavailable Jatin, Alexander Chi Referring Unavailable Jatin, Alexander Chi Attending Unavailable Jatin, Alexander Chi Primary Care Unavailable Alejandro Machado Referring Unavailable Alejandro Machado Attending Unavailable Jatin, Alexander Chi Primary Care Unavailable Jatin, Alexander Chi Attending Unavailable Jatin, Alexander Chi Referring Unavailable Jatin, Alexander Chi Primary Care Unavailable Jatin, Alexander Chi Referring Unavailable Jatin, Alexander Chi Attending Unavailable Jatin, Alexander Chi Primary Care Unavailable Ghazoul, Mena Referring Unavailable Ghazoul, Mena Attending Unavailable Jatin, Alexander Chi Primary Care Unavailable Jatin, Alexander Chi Attending Unavailable Jatin, Alexander Chi Primary Care Unavailable Jatin, Alexander Chi Referring Unavailable Jatin, Alexander Chi Attending Unavailable Jatin, Alexander Chi Primary Care Unavailable CarterAlejandro borrero Attending Unavailable CarterAlejandro Referring Unavailable Jatin, Alexander Chi Primary Care Unavailable Jatin, Alexander Chi Referring Unavailable Jatin, Alexander Chi Primary Care Unavailable Jatin, Alexander Chi Attending Unavailable Jatin, Alexander Chi Primary Care Unavailable Marcelino Nolen Attending Unavailable Callum, Marcelino Referring Unavailable Jatin, Alexander Chi Primary Care Unavailable Lori Powers Attending Unavailable KatjaiLori Referring Unavailable CarterAlejandro borrero Attending Unavailable Alejandro Machado Referring Unavailable Jatin, Alexander Chi Primary Care Unavailable Sibilia, Micah V Attending Unavailable Jatin, Alexander Chi Primary Care Unavailable Sibilia, Micah V Referring Unavailable Jatin, Alexander Chi Attending Unavailable Jatin, Alexander Chi Primary Care Unavailable Gregory Rodriguez Attending Unavailable Jatin, Alexander Chi Referring Unavailable Jatin, Alexander Chi Primary Care Unavailable Ghazoul, Mena Attending Unavailable Jatin, Alexander Chi Referring Unavailable Jatin, Alexander Chi Primary Care Unavailable Deric Noleni Attending Unavailable Sibilia Micah V Attending Unavailable Sibilia, Micah V Referring Unavailable Jatin, Alexander Chi Primary Care Unavailable Jatin, Alexander Chi Referring Unavailable Jatin, Alexander Chi Attending Unavailable Jatin, Alexander Chi Primary Care Unavailable Ghazoul, Mena Referring Unavailable Ghazoul, Mena Consulting Unavailable Ghazoul, Mena Attending Unavailable Jatin, Alexander Chi Primary Care Unavailable Jatin, Aleaxnder Chi Referring Unavailable Jatin, Alexander Chi Attending Unavailable Jatin, Alexander Chi Primary Care Unavailable Jatin, Alexander Chi Primary Care Unavailable Sibilia, Micah V Referring Unavailable Sibilia, Micah V Consulting Unavailable Miriam Brooks Attending Unavailjens Jimenez, Micah V Referring Unavailable Jatin, Alexander Chi Primary Care Unavailable Miriam Brooks Attending UnavailSánchez Multani Attending Unavailable Jatin, Alexander Chi Referring Unavailable Jatin, Alexander Chi Primary Care Unavailable Jatin, Alexander Chi Referring Unavailable Jessie Moreno Attending Unavailable Jatin, Alexander Chi Primary Care Unavailable Jatin, Alexander Chi Referring Unavailable Ghazoul, Mena Attending Unavailable Alejandro Machado Attending Unavailable Jatin, Alexander Chi Referring Unavailable Ghazoul, Mena Attending Unavailable Jatin, Alexander Chi Primary Care Unavailable Alejandro Machado Attending Unavailable Jatin, Alexander Chi Primary Care Unavailable Alejandro Machado Attending Unavailable Jatin, Alexander Chi Referring Unavailable Jatin, Alexander Chi Primary Care Unavailable Jatin, Alexander Chi Referring Unavailable Laura Condon NP Attending Unavailable Jatin, Alexander Chi Primary Care Unavailable Jatin, Alexander Chi Referring Unavailable Jatin, Alexander Chi Primary Care Unavailable Mena Valle Attending Unavailable Medications Current Medications Medication Drug Class(es) Dates Sig (Normalized) Sig (Original) aspirin 81 mg delayed release oral tablet (20 sources) Platelet Aggregation Inhibitor, Nonsteroidal Anti-inflammatory Drug Start: 01-27-2016 take 1 tablet by mouth once daily Aspirin 81 MG tablet,delayed release (DR/EC) Active 81 mg PO DAILY January 27, 2016 12:00am atorvastatin 20 mg oral tablet (20 sources) HMG-CoA Reductase Inhibitor Start: 10-14-2020 take 1 tablet by mouth once daily Atorvastatin 20 mg tablet Active 20 mg PO DAILY 90 October 14, 2020 12:00am budesonide 0.125 mg/ml inhalation suspension (18 sources) Corticosteroid Start: 10-20-2021 take 0.25 mg by inhalation twice daily Budesonide 0.25 mg/2 mL suspension for nebulization Active 0.25 mg INHALATION TWICE A DAY October 20, 2021 12:00am take 2 mL by inhalation twice da jose de jesus budesonide 0.25 MG/2ML inhalation suspension Inhale 2 mL 2 times daily. 0 Active calcium carbonate 1500 mg / cholecalciferol 200 unt oral capsule (20 sources) Vitamin D Start: 07-05-2022 Calcium Carbon ate-Vitamin D3 (Calcium 600 + D(3)) 600 mg-5 mcg (200 unit) capsule Active 1 NMA PO TWICE A DAY 180 July 05, 2022 10:07am Start: 09-16-2020 End: 07-05-2022 Calcium Carbonate-Vitamin D3 (Calcium 600 + D(3)) 600 mg calcium- 200 unit capsule Discontinued 1 NMA PO DAILY September 16, 2020 12:00am July 05, 2022 10:09am Start: 09-16-2020 End: 07-05-2022 take 1 capsule by mouth once daily Calcium Carbonate-Vitamin D3 (Calcium 600 + D(3)) 600 mg calcium- 200 unit capsule Discontinued 1 CAP PO DAILY September 16, 2020 12:00am July 05, 2022 10:09am Calcium Carbonate / Vitamin D (7 sources) Calcium Carbonate-Vitamin D (CALCIUM 600+D PO) Take by mouth daily. 0 Active finasteride 5 mg oral tablet (4 sources) 5-alpha Reductase Inhibitor Start: take 1 tablet by mouth once daily Finasteride 5 mg tablet Active 5 mg PO DAILY November 15, 2023 12:00am Formoterol Fumarate 20 mcg/2 mL solution for nebulization (4 sources) Start: Formoterol Fumarate 20 mcg/2 mL solution for nebulization Active INHALATION November 28, 2023 12:00am ketorolac tromethamine 5 mg/ml ophthalmic solution (2 sources) Nonsteroidal Anti-inflammatory Drug, Cyclooxygenase Inhibitor Start: take 1 drop(s) into the eye(s) four times daily ketorolac 0.5 % Solution ophthalmic solution INSTILL 1 DROP INTO RIGHT EYE (SURGICAL EYE) 4 TIMES DAILY STARTING DAY OF SURGERY IMMEDIATELY FOLLOWING SURGERY 0 08/20/2020 Active levothyroxine sodium 0.112 mg oral tablet (20 sources) l-Thyroxine Start: take 1 tablet by mouth once daily Levothyroxine 112 mcg tablet Active 112 ug PO daily November 28, 2023 12:00am Start: 09-09-2022 End: 11-28-2023 take 1 tablet by mouth once daily Levothyroxine 88 mcg tablet Discontinued 88 ug PO DAILY April 28, 2023 11:24am November 28, 2023 10:27am Start: 04-26-2022 End: 09-09-2022 Levothyroxine 75 mcg tablet Discontinued 75 ug PO .COMPLEX July 05, 2022 10:09am September 09, 2022 11:15am 75 mcg PO 1 daily, 2 on Sund; Start: 01-04-2021 End: 04-20-2021 Levothyroxine 75 mcg tablet Discontinued 75 ug PO .COMPLEX January 04, 2021 12:45pm April 20, 2021 10:05am 75 mcg PO 1 daily, 2 on Sundays; Start: 11-06-2020 End: 04-26-2022 take 1 tablet by mouth once Levothyroxine 75 mcg table t Discontinued 75 ug PO .COMPLEX January 05, 2022 3:39pm April 26, 2022 10:13am 75 mcg PO 1 daily, 1.5 on Sundays; Multivitamin preparation (6 sources) Start: 12-12-2022 take 1 tablet by mouth once daily Multivitamin Active 1 TABLET PO DAILY December 12, 2022 12:00am Start: 12-12-2022 take 1 tablet by antoine th once daily Multivitamin Active 1 TABLET PO DAILY December 11, 2022 11:00pm Multivitamin tablet (4 sources) Start: 12-12-2022 Multivitamin tablet Active 1 {tbl} PO DAILY December 12, 2022 12:00am ofloxacin 3 mg/ml ophthalmic solution (2 sources) Quinolone Antimicrobial Start: 08-20-2020 take 1 drop(s) into the eye(s) four times daily ofloxacin 0.3 % Solution ophthalmic solution INSTILL 1 DROP INTO RIGHT EYE (SURGICAL EYE) 4 TIMES DAILY STARTING 2 DAYS PRIOR TO SURGERY 0 08/20/2020 Active omeprazole 40 mg delayed release oral capsule (20 sources) Proton Pump Inhibitor Start: 05-25-2019 take 1 capsule by mouth once daily Omeprazole 40 MG capsule,delayed release(DR/EC) Active 40 mg PO DAILY May 25, 2019 1:00am microencapsulated potassium chloride 20 meq extended release oral tablet (5 sources) Start: 11-28-2023 End: 08-29-2024 take 1 tablet by mouth once daily as needed Potassium Chloride 20 mEq tablet,ER particles/toni ls Active 20 meq PO daily as needed August 29, 2024 9:43am revefenacin 0.0583 mg/ml inhalation solution (4 sources) Start: 11-28-2023 Revefenacin (Yupelri) 175 mcg/3 mL solution for nebulization Active ug INHALATION November 28, 2023 12:00am Roflumilast (4 sources) Phosphodiesterase 4 Inhibitor Start: 11-28-2023 take 1 tablet by mouth once daily Roflumilast 500 mcg tablet Active 500 ug PO daily November 28, 2023 12:00am tamsulosin hydrochloride 0.4 mg oral capsule (15 sources) alpha-Adrenergic Morenita Start: 04-20-2021 take 1 capsule by mouth once daily Tamsulosin 0.4 mg capsule Active 0.4 mg PO DAILY April 20, 2021 1:00am terazosin 1 mg oral capsule (20 sources) alpha-Adrenergic Morenita Start: 04-18-2019 take 1 capsule by mouth once daily Terazosin 1 mg capsule Active 1 mg PO DAILY April 18, 2019 1:00am Completed/Discontinued Medications Medication Drug Class(es) Dates Sig (Normalized) Sig (Original) acetaminophen 325 mg / oxyCODONE hydrochloride 5 mg oral tablet (15 sources) Opioid Agonist Start: 05-25-2019 End: 05-28-2019 Oxycodone-Acetamino phen 1 TABLET tablet Discontinued 1 {tbl} PO EVERY 6 HOURS NEEDED as needed for Pain 15 May 25, 2019 May 27, 2019 1:00am May 28, 2019 1:09am Start: 05-25-2019 End: 05-28-2019 take 1 tablet by mouth every six hours as needed Oxycodone-Acetaminophen Discontinued 1 TABLET PO EVERY 6 HOURS NEEDED 15 May 25, 2019 May 28, 2019 1:09am albuterol 5 mg/ml inhalation solution (20 sources) beta2-Adrenergic Agonist Start: 04-26-2022 End: 11-28-2023 take 2.5 mg by inhalation every six hours as needed for wheezing Albuterol Sulfate 2.5 mg/0.5 mL solution for nebulization Discontinued 2.5 mg INHALATION EVERY 6 HOURS as needed for shortness of breath or wheezing April 26, 2022 10:09am November 28, 2023 10:29am Start: 09-16-2020 End: 04-26-2022 take 5 mg by inhalation once daily Albuterol Sulfate 2.5 mg/0.5 mL solution for nebulization Discontinued 5 mg INHALATION DAILY September 16, 2020 12:00am April 26, 2022 10:12am take 0.5 mg by inhal ation every six hours as needed albuterol (5 MG/ML) 0.5% Nebu Soln inhalation solution Inhale 0.5 mL Every 6 hours as needed. 0 Active albuterol (5 MG/ ML) 0.5% Nebu Soln inhalation solution Inhale 2.5 mg Every 6 hours as needed. 0 Active albuterol 0.833 mg/ml / ipratropium bromide 0.167 mg/ml inhalation solution (20 sources) Anticholinergic, beta2-Adrenergic Agonist Start: 11-09-2021 End: 11-28-2023 take 1 mL by inhalation twice daily Ipratropium-Albuterol 0.5 mg-3 mg(2.5 mg base)/3 mL solution for nebulization Discontinued 3 mL INHALATION TWICE A DAY November 09, 2021 12:00am November 28, 2023 10:29am Start: 11-09-2021 take 1 mL by inhalat ion twice daily Ipratropium-Albuterol Active 3 ML INHALATION TWICE A DAY November 09, 2021 12:00am ipratropium-albu terol 0.5-2.5 (3) MG/3ML nebulizer solution Inhale 3 mL. 0 Active amLODIPine 10 mg oral tablet (20 sources) Dihydropyridine Calcium Channel Morenita Start: 10-14-2020 End: 11-28-2023 take 1 tablet by mouth once daily Amlodipine 10 mg tablet Discontinued 10 mg PO DAILY 90 October 14, 2020 12:00am November 28, 2023 10:29am amoxicillin 875 mg / clavulanate 125 mg oral tablet (4 sources) Penicillin-class Antibacterial Start: 10-05-2023 End: 11-28-2023 Amoxicillin-Pot Clavulanate 875-125 mg tablet Discontinued 1 {tbl} PO TWICE A DAY October 05, 2023 12:00am November 28, 2023 10:29am baclofen 10 mg oral tablet (4 sources) gamma-Aminobutyric Acid-ergic Agonist Start: 11-28-2023 End: 08-29-2024 take 1 tablet by mouth once daily as needed Baclofen 10 mg tablet Discontinued 10 mg PO daily as needed November 28, 2023 12:00am August 29, 2024 9:42am carvedilol 12.5 mg oral tablet (17 sources) alpha-Adrenergic Morenita, beta-Adrenergic Morenita Start: 09-16-2020 End: 10-14-2020 take 1 tablet by mouth twice daily at mealtime Carvedilol 12.5 mg tablet Discontinued 12.5 mg PO TWICE A DAY September 16, 2020 12:00am October 14, 2020 2:08pm must administer with a meal/food Start: 07-26-2020 End: 07-26-2021 carveDILOL 25 MG tablet Take 12.5 mg by mouth 2 times daily with meals. 0 07/26/2020 07/26/2021 Active cloNIDine hydrochloride 0.1 mg oral tablet (15 sources) Central alpha-2 Adrenergic Agonist Start: 01-27-2016 End: 04-18-2019 take 1 tablet by mouth three times daily Clonidine Hcl 0.1 MG tablet Discontinued 0.1 mg PO THREE TIMES A DAY January 27, 2016 12:00am April 18, 2019 9:04am erythromycin 0.005 mg/mg ophthalmic ointment (13 sources) Macrolide, Macrolide Antimicrobial Start: 11-09-2021 End: 04-26-2022 Erythromycin 5 mg/gram (0.5 %) ointment Discontinued NMA OPHTHALMIC November 09, 2021 12:00am April 26, 2022 10:12am Start: 11-09-2021 End: 04-26-2022 Erythromycin Discontinued G OPHTHALMIC November 09, 2021 12:00am April 26, 2022 10:12am 2 ml fentaNYL 0.05 mg/ml injection (1 source) Opioid Agonist Start: 12-02-2022 End: 12-02-2022 fentaNYL (SUBLIMAZE) injection 0-300 mcg Kwhmhvmcckh-Iwfdbxibk-N ilanter (4 sources) Anticholinergic , Corticosteroid, beta2-Adrenergi c Agonist Start: 10-05-2023 End: 11-28-2023 Fluticasone-Umeclidin- Vilanter (Trelegy Ellipta) 100-62.5-25 mcg blister with device Discontinued 1 NMA INHALATION DAILY October 05, 2023 12:00am November 28, 2023 10:29am gabapentin 100 mg oral capsule (4 sources) Anti-epileptic Agent Start: 10-04-2023 End: 08-29-2024 take 1 capsule by mouth once daily Gabapentin 100 mg capsule Discontinued 100 mg PO daily October 04, 2023 12:00am August 29, 2024 9:31am hydrALAZINE hydrochloride 25 mg oral tablet (15 sources) Arteriolar Vasodilator Start: 01-27-2016 End: 04-18-2019 take 1 tablet by mouth twice daily Hydralazine 25 MG tablet Discontinued 25 mg PO TWICE A DAY January 27, 2016 12:00am April 18, 2019 9:05am hydroCHLOROthiazide 25 mg oral tablet (17 sources) Thiazide Diuretic Start: 08-13-2020 End: 08-13-2021 take 1 tablet by mouth once daily Hydrochlorothiazide 25 mg tablet Discontinued 25 mg PO DAILY September 16, 2020 12:00am October 14, 2020 2:56pm iohexol (OMNIPAQUE) 350 MG/ML injection 1-171 mL (1 source) Start: 11-11-2020 End: 11-11-2020 iohexol (OMNIPAQUE) 350 MG/ML injection 1-171 mL losartan potassium 50 mg oral tablet (20 sources) Angiotensin 2 Receptor Morenita Start: 04-26-2022 End: 07-05-2022 Losartan 50 mg tablet Discontinued 25 mg PO DAILY April 26, 2022 10:11am July 05, 2022 9:57am Start: 04-26-2022 End: 07-05-2022 take 25 mg by mouth once daily Losartan Discontinued 2 5 MG PO DAILY April 26, 2022 10:11am July 05, 2022 9:57am Start: 04-20-2021 End: 11-04-2022 take 1 tablet by mouth once daily Losartan 50 mg tablet Discontinued 50 mg PO DAILY April 20, 2021 10:19am April 26, 2022 10:12am Start: 04-18-2019 End: 04-20-2021 take 1 tablet by mouth once daily Losartan 100 mg tablet Discontinued 100 mg PO DAILY April 18, 2019 1:00am April 20, 2021 10:20am take 2 tablets by mo uth once daily losartan 50 MG tablet Take 100 mg by mouth daily. 0 Active meloxicam 7.5 mg oral tablet (4 sources) Nonsteroidal Anti-inflammatory Drug Start: 10-04-2023 End: 08-29-2024 take 1 tablet by mouth once daily Meloxicam 7.5 mg tablet Discontinued 7.5 mg PO DAILY October 04, 2023 12:00am August 29, 2024 9:31am On Hold: pt not taking metoprolol tartrate 25 mg oral tablet (20 sources) beta-Adrenergic Morenita Start: 10-14-2020 End: 10-14-2020 take 1 tablet by mouth twice daily Metoprolol Tartrate 25 mg tablet Discontinued 25 mg PO TWICE A DAY October 14, 2020 12:00am October 14, 2020 3:19pm Start: 10-14-2020 End: 10-14-2020 take 1 tablet by mouth once daily Metoprolol Tartrate 25 mg tablet Discontinued 25 mg PO DAILY October 14, 2020 12:00am October 14, 2020 2:52pm Start: 01-27-2016 End: 04-18-2019 take 1 tablet by mouth twice daily Metoprolol Tartrate 50 MG tablet Discontinued 50 mg PO TWICE A DAY January 27, 2016 12:00am April 18, 2019 9:06am 2 ml midazolam 1 mg/ml injection (1 source) Benzodiazepine Start: 12-02-2022 End: 12-02-2022 midazolam (VERSED) injection 0-10 mg mirtazapine 7.5 mg oral tablet (4 sources) Start: 11-15-2023 End: 11-28-2023 take 1 tablet by mouth at bedtime Mirtazapine 7.5 mg tablet Discontinued 7.5 mg PO AT BEDTIME November 15, 2023 12:00am November 28, 2023 10:30am ondansetron 8 mg oral tablet (15 sources) Serotonin-3 Receptor Antagonist Start: 05-25-2019 End: 09-16-2020 take 1 tablet by mouth every eight hours as needed for nausea Ondansetron Hcl 8 MG tablet Discontinued 8 mg PO EVERY 8 HOURS NEEDED as needed for Nausea May 25, 2019 1:00am September 16, 2020 2:33pm ok to substitute ODT 10 ml sodium chloride 9 mg/ml injection (1 source) Start: 11-11-2020 End: 11-11-2020 sodium chloride (PF) 0.9 % injection 1-100 mL valACYclovir 1000 mg oral tablet (20 sources) Herpesvirus Nucleoside Analog DNA Polymerase Inhibitor, Herpes Simplex Virus Nucleoside Analog DNA Polymerase Inhibitor, Herpes Zoster Virus Nucleoside Analog DNA Polymerase Inhibitor Start: 04-26-2022 End: 12-12-2022 Valacyclovir 1 gram tablet Discontinued 1000 mg PO DAILY April 26, 2022 10:10am December 12, 2022 10:29am Start: 11-09-2021 End: 04-26-2022 Valacyclovir 1 gram tablet Discontinued NMA PO November 09, 2021 12:00am April 26, 2022 10:12am Start: 11-09-2021 End: 12-12-2022 take 1000 mg by mouth once daily Valacyclovir Discontinued 1000 MG PO DAILY April 26, 2022 9:10am December 12, 2022 9:29am take 2 tablets by mo uth once daily valACYclovir 500 MG tablet Take 2 tablets by mouth daily. 0 Active 100 ml zoledronic acid 0.05 mg/ml injection (20 sources) Bisphosphonate Start: 08-07-2021 End: 07-16-2024 Zoledronic Vkmz-Qzhvrtjj-Fpdjl 5 mg/100 mL piggyback Discontinued 1 NMA .Route ONCE October 10, 2023 9:33am July 16, 2024 3:52pm infuse over 20 minutes Start: 07-23-2020 End: 09-16-2020 Zoledronic Ibmb-Imkphzje-Sjk er 5 mg/100 mL piggyback Discontinued 1 NMA .Route ONCE July 23, 2020 12:00am September 16, 2020 2:33pm infuse over 20 minutes Problems Active Problems Problem Classification Problem Date Documented Date Episodic/Chronic Calculus of urinary tract (20 sources) Ureteric colic; Translations: [Unspecified renal colic] 05-26-2019 Episodic Cancer of bronchus; lung (20 sources) Primary adenocarcinoma of upper lobe of right lung; Translations: [Malignant neoplasm of upper lobe, right bronchus or lung] Onset: 02-29-2024 12-12-2022 Chronic Cardiac dysrhythmias (17 sources) Bradycardia; Translations: [Bradycardia, unspecified] Episodic Chronic obstructive pulmonary disease and bronchiectasis (1 source) Chronic obstructive pulmonary disease, unspecified; Translations: [Chronic obstructive pulmonary disease, unspecified] Onset: 05-28-2024 Chronic Complications of surgical procedures or medical care (18 sources) Postoperative hypothyroidism; Translations: [Postprocedural hypothyroidism] Onset: 10-11-2023 11-06-2020 Chronic Coronary atherosclerosis and other heart disease (18 sources) Calcification of coronary artery; Translations: [Atherosclerotic heart disease of [place] coronary artery without angina pectoris] Chronic Disorders of lipid metabolism (18 sources) Mixed hyperlipidemia; Translations: [Mixed hyperlipidemia] Chronic Esophageal disorders (15 sources) Gastroesophageal reflux disease; Translations: [Gastro-esophageal reflux disease without esophagitis] 10-14-2020 Chronic Essential hypertension (20 sources) Essential hypertension; Translations: [Essential (primary) hypertension] Onset: 08-31-2020 Chronic Comment on above: controlled with med Nutritional deficiencies (16 sources) Vitamin D deficiency; Translations: [Vitamin D deficiency, unspecified] Onset: 10-11-2023 07-05-2022 Chronic Occlusion or stenosis of precerebral arteries (1 source) Occlusion and stenosis of unspecified carotid artery; Translations: [Occlusion and stenosis of unspecified carotid artery] Onset: 09-05-2024 Chronic Osteoarthritis (6 sources) Osteoarthritis of joint of right shoulder region; Translations: [Primary osteoarthritis, right shoulder] Onset: 02-19-2024 02-19-2024 Chronic Osteoporosis (18 sources) Osteoporosis; Translations: [Age-related osteoporosis without current pathological fracture] Onset: 11-14-2023 07-05-2022 Chronic Other aftercare (1 source) Encounter for follow-up examination after completed treatment for malignant neoplasm; Translations: [Encounter for follow-up examination after completed treatment for malignant neoplasm] Onset: 07-03-2024 Episodic Other and unspecified benign neoplasm (4 sources) Benign tumor of external ear; Translations: [Other benign neoplasm of skin of unspecified ear and external auricular canal] 10-11-2023 Episodic Other injuries and conditions due to external causes (4 sources) Delayed healing of wound; Translations: [Other injury of unspecified body region, subsequent encounter] 10-31-2023 Episodic Other lower respiratory disease (15 sources) Lung mass; Translations: [Other nonspecific abnormal finding of lung field] 04-21-2022 Episodic Other lower respiratory disease (9 sources) Nodule of lung; Translations: [Solitary pulmonary nodule] Onset: 05-12-2021 Episodic Other lower respiratory disease (2 sources) Solitary pulmonary nodule; Translations: [Solitary pulmonary nodule] Onset: 05-12-2021 Episodic Other skin disorders (15 sources) Sebaceous cyst of skin; Translations: [Sebaceous cyst] 04-21-2022 Episodic Screening and history of mental health and substance abuse codes (1 source) Ex-smoker; Translations: [Personal history of nicotine dependence] Episodic Syncope (2 sources) Syncope and collapse; Translations: [Syncope and collapse] Onset: 08-29-2024 Episodic Thyroid disorders (20 sources) Thyroid nodule; Translations: [Nontoxic single thyroid nodule] 10-20-2020 Chronic Comment on above: questionable thyroid cancer bilateral thyroid no dules biopsy 09/16/20 Past or Other Problems Problem Classification Problem Date Documented Da te Episodic/Chronic Abdominal pain (1 source) Unspecified abdominal pain; Translations: [Unspecified abdominal pain] Onset: 10-13-2023 Episodic Fluid and electrolyte disorders (1 source) Dehydration; Translations: [Dehydration] Onset: 11-03-2023 Episodic Mood disorders (5 sources) Mood disorders Onset: 11-10-2021 Resolved: 11-04-2022 11-10-2021 Neoplasms of unspecified nature or uncertain behavior (6 sources) 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; Translations: [Neoplasm of uncertain behavior of skin] Onset: 10-18-2023 10-04-2023 Episodic Other lower respiratory disease (2 sources) Solitary nodule of lung; Translations: [Solitary pulmonary nodule] Episodic Other lower respiratory disease (1 source) Wheezing; Translations: [Wheezing] Onset: 06-07-2024 Episodic Other lower respiratory disease (2 sources) Dyspnea, unspecified; Translations: [Dyspnea, unspecified] Onset: 11-19-2023 Episodic Other non-traumatic joint disorders (6 sources) Pain in right shoulder; Translations: [Right shoulder pain] Onset: 02-19-2024 08-25-2023 Episodic Residual codes; unclassified (1 source) Chills (without fever); Translations: [Chills (without fever)] Onset: 04-18-2024 Episodic Spondylosis; intervertebral disc disorders; other back problems (1 source) Radiculopathy, cervical region; Translations: [Radiculopathy, cervical region] Onset: 11-13-2023 Episodic Results Test Name Value Interpretation Reference Range Facility Cardiology Visit Reporton Cardiology Visit Report [facility]. [address] [place] [address] OFFICE VISIT Date of Service: 08/29/24 MR#: [id number] Acct: [id number] Name: JERODMARGAUX RANGEL Rep #: [id number] : 1940 Provider: RONNIE pina Age/Sex: 83/M Location: [facility] Status: Signed HPI HPI History of Present Illness Details: This is a pleasant 83 year old male who presents to the office today for a cardiovascular visit. Patient was last seen in our office in March 2022. 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 He apparently was undergoing cataract surgery in August of last year and was noted to be bradycardic with heart rates going down to 33 which was presumably sinus and requiring a dose of atropine. He recovered without any other incidents. He was noted to have occasional premature ventricular complexes. He had previously undergone a stress echocardiogram in July of 2020, where he exercised for 8 minutes and 38 seconds on a modified Emile protocol and was noted to have a low chronotropic response due to the fact that he had been on a beta-morenita. He exercised almost 6 metabolic equivalents. He had previously been on metoprolol which was changed to carvedilol for blood pressure control and developed dizziness. At that time he had also been started on hydrochlorothiazide. An echocardiogram which had been performed in July of 2020, as part of his stress test demonstrated an ejection fraction of 64% with no wall motion abnormalities noted. An EKG from June 2020 demonstrated a heart rate of 61 bpm with no acute changes other than leftward axis. From a cardiac standpoint, the patient is doing well. He does have an occasional palpitation-he describes this as a fast heart rate. He states this usually occurs when he is feeling anxious. He denies chest pain, pressure or heaviness. He does acknowledge SOB with exertion-the attributes this to COPD. He denies Orthopnea, and PND. He does not have bleeding issues; no blood in urine, stool, or nosebleeds. He denies any decrease in energy level, myalgias, or claudication. He does not have edema, or sudden weight gain. He does have occasional lightheadedness. He denies dizziness, syncopal or near syncopal episodes, and headaches. He does drink about 4-6 cups of coffee a day. He states that he is scheduled for an echocardiogram. 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 Is patient in pain?: No Allergies No Known Allergies Allergy (Verified 08/29/24 09:43) Medications ???Medication ???Instructions ???Recorded ???Confirmed ???Type aspirin 81 mg tablet,delayed 81 mg PO DAILY 01/27/16 07/08/24 H istory release terazosin 1 mg capsule 1 mg PO DAILY 04/18/19 08/29/24 Hi story omeprazole 40 mg capsule,delayed 40 mg PO DAILY 05/25/19 08/29/24 H istory release atorvastatin 20 mg tablet 20 mg PO DAILY #90 tabs 10/14/20 0 08/29/24 Rx tamsulosin 0.4 mg capsule 0.4 mg PO DAILY 04/20/21 08/29/24 History budesonide 0.25 mg/2 mL suspension 0.25 mg inhalation BID 10/20/21 08/29/24 History for nebulization calcium 600 mg (as 1 cap PO BID #180 caps 07/05/22 Rx carbonate)-vitamin D3 5 mcg (200 unit) capsule (Calcium 600 + D(3)) multivitamin 1 tab PO DAILY 12/12/22 08/29/24 H istory finasteride 5 mg tablet 5 mg PO DAILY 11/15/23 08/29/24 Hi story formoterol fumarate 20 mcg/2 mL inhalation 11/28/23 08/29/24 Histo ry solution for nebulization levothyroxine 112 mcg tablet 112 mcg PO QDAY 11/28/23 08/29/24 History revefenacin 175 mcg/3 mL solution mcg inhalation 11/28/23 08/29/24 History for nebulization (Yupelri) roflumilast 500 mcg tablet 500 mcg PO QDAY 11/28/23 08/29/24 History zoledronic acid 5 mg/100 mL in 1 ea .Route ONCE #100 mL 07/16/24 Rx mannitol 5 %-water intravenous piggybck potassium chloride 20 mEq 20 meq PO QDAY PRN 08/29/24 History tablet,extended release(part/cryst) Have you fallen in the past year?: No [facility] Medical History (Reviewed 08/29/24 @ 11:04 by Laura Condon 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 Normal [facility] Electrocardiogram reportOrde red By: Sánchez Pena on 08-26-2024 EKG study [facility] Cardiovascular Services [address] [place] [address] 12 Lead EKG 08/22/24 0917 MR#: [id number] Acct: [id number] Name: MARGAUX SANDERSON Rep #:[id number] : 1940 83 From: Sánchez guerrero MD Attending Dr: Dr. Alexander Steiner MD Status: REG CLI Ordering Dr: Alexander Steiner MD Date: Location: CVS Sex: M C Admitted: Test Reason : NEAR SYNCOPE Blood Pressure : */* mmHG Vent. Rate : 82 BPM Atrial Rate : 82 BPM P-R Int : 144 ms QRS Dur : 86 ms QT Int : 372 ms P-R-T Axes : 85 -42 62 degrees QTcB Int : 434 ms Sinus rhythm with Premature atrial complexes Left axis deviation Abnormal ECG Confirmed by Sánchez Pena ([id number]), photo editor RICARDO PATEL ([id number]) on 08/26/2024 11:30:26 AM Referred By: Alexander Steiner Confirmed By: Sánchez Pena 08/26/24 1130 Date _ Sánchez Pena MD CC: Dr. Alexander Steiner MD ~ Signed [facility] Work Phone: 12 Lead EKGon 08-22-2024 12 Lead EKG [facility] Cardiovascular Services [address] [place] [address] 12 Lead EKG 08/22/2417 MR#: [id number] Acct: [id number] Name: MARGAUX SANDERSON Rep #: [id number] : 1940 83 From: Sánchez Pena MD Attending Dr: Dr. Alexander Steiner MD Status: REG CLI Ordering Dr: Alexander Steiner MD Date: 08/22/24 Location: [facility] Sex: M C Admitted: Test Reason : NEAR SYNCOPE Blood Pressure : */* mmHG Vent. Rate : 82 BPM Atrial Rate : 82 BPM P-R Int : 144 ms QRS Dur : 86 ms QT Int : 372 ms P-R-T Axes : 85 -42 62 degrees QTcB Int : 434 ms Sinus rhythm with Premature atrial complexes Left axis deviation Abnormal ECG Confirmed by Sánchez Pena ([id number]), photo editor RICARDO PATEL ([id number]) on 08/26/2024 11:30:26 AM Referred By: Alexander Steiner Confirmed By: Sánchez Pena 08/26/24 1130 Date Sánchez Pena MD CC: Dr. Alexander Steiner MD Signed Normal [facility] Carotid Duplex Ultrasoundon 08-22-2024 Carotid Duplex Ultrasound [facility] Cardiovascular Services [address] [place] [address] Carotid Duplex Ultrasound 08/22/24 0928 MR#: [id number] Acct: [id number] Name: MARGAUX SANDERSON Rep #: [id number] : 1940 83 From: Deni Jackson MD Attending Dr: Dr. Alexander Steiner MD Status: REG CLI Ordering Dr: Alexander Steiner MD Date: 08/22/24 Location: [facility] Sex: M C Admitted: Reason For Study Reason For Study: Near syncope Rt. Velocities/BP Lt. Velocities/BP Prox CCA 75.9/16.3 cm/sec. Prox CCA 88.8/24.9 cm/sec. Mid CCA 104.7/22.3 cm/sec. Mid CCA 74/21.2 cm/sec. Dist CCA 87.2/22.3 cm/sec. Dist CCA 67.9/20 cm/sec. Prox ICA 135.7/29.8 cm/sec. Prox ICA 202.6/53.3 cm/sec. Mid ICA 124.7/37.1 cm/sec. Mid ICA 174.1/38 cm/sec. Dist ICA 133.8/31.6 cm/sec. Dist ICA 91.2/24.9 cm/sec. Rt. ICA/CCA = 1.30. Lt. ICA/CCA = 2.74. Prox ECA 122.9/15.2 cm/sec. Prox ECA 149.9/27 cm/sec. Lt. Vert. 60.5/21.2 cm/sec. Right Extracranial There is homogeneous, smooth atherosclerotic plaque noted in the right common carotid artery. There is heterogeneous, irregular atherosclerotic plaque noted in the right internal carotid artery. There is heterogeneous, irregular atherosclerotic plaque noted in the right external carotid artery. Flow could not be demonstrated in the right vertebral artery. Left Extracranial There is heterogeneous, irregular atherosclerotic plaque noted in the left common carotid artery. There is heterogeneous, irregular atherosclerotic plaque noted in the left internal carotid artery. There is heterogeneous, irregular atherosclerotic plaque noted in the left external carotid artery. Antegrade flow is noted in the left vertebral artery. Procedure This is a Carotid Duplex examination using B-mode, color flow and specral Doppler. Carotid Duplex 61021. Exam performed in department. VL/Carotid Duplex Ultrasound Interpretation Summary Mild (<50%) stenosis right extracranial internal carotid. Moderate (50-69%) stenosis left extracranial internal carotid. Flow was not detected in the right vertebral artery, suggesting that it may be occluded. Flow within the left verterbral artery is antegrade. Ordering Physician: Alexander Steiner Chi Referring Physician: Alexander Steiner Chi Performed By: Naya Aranda RVBrandi 08/22/242216 Date Deni Jackson MD CC: Dr. Alexander Steiner MD Date Dictated: 08/22/24 0928 Date Transcribed: 08/22/242216 Inspector Rough Castings: Signed [facility] Duplex ultrasound of carotid artery reportOrdered By: Deni Jackson on 08-22-2024 Study report [facility] Cardiovascular Services [address] [place] [address] Carotid Duplex Ultrasound 08/22/24 0928 MR#: [id number] Acct: [id number] Name: MARGAUX SANDERSON Rep #:[id number] : 1940 83 From: Deni Jackson MD Attending Dr: Dr. Alexander Steiner MD Status: REG CLI Ordering Dr: Alexander Steiner MD Date: Location: [facility] Sex: M C Admitted: Reason For Study Reason For Study: Near syncope Rt. Velocities/BP Lt. Velocities/BP Prox CCA 75.9/16.3 cm/sec. Prox CCA 88.8/24.9 cm/sec. Mid CCA 104.7/22.3 cm/sec. Mid CCA 74/21.2 cm/sec. Dist CCA 87.2/22.3 cm/sec. Dist CCA 67.9/20 cm/sec. Prox ICA 135.7/29.8 cm/sec. Prox ICA 202.6/53.3 cm/sec. Mid ICA 124.7/37.1 cm/sec. Mid ICA 174.1/38 cm/sec. Dist ICA 133.8/31.6 cm/sec. Dist ICA 91.2/24.9 cm/sec. Rt. ICA/CCA = 1.30. Lt. ICA/CCA = 2.74. Prox ECA 122.9/15.2 cm/sec. Prox ECA 149.9/27 cm/sec. Lt. Vert. 60.5/21.2 cm/sec. Right Extracranial There is homogeneous, smooth atherosclerotic plaque noted in the right common carotid artery. There is heterogeneous, irregular atherosclerotic plaque noted in the right internal carotid artery. There is heterogeneous, irregular atherosclerotic plaque noted in the right external carotid artery. Flow could not be demonstrated in the right vertebral artery. Left Extracranial There is heterogeneous, irregular atherosclerotic plaque noted in the left common carotid artery. There is heterogeneous, irregular atherosclerotic plaque noted in the left internal carotid artery. There is heterogeneous, irregular atherosclerotic plaque noted in the left external carotid artery. Antegrade flow is noted in the left vertebral artery. Procedure This is a Carotid Duplex examination using B-mode, color flow and specral Doppler. Carotid Duplex 69935. Exam performed in department. VL/Carotid Duplex Ultrasound Interpretation Summary Mild (<50%) stenosis right extracranial internal carotid. Moderate (50-69%) stenosis left extracranial internal carotid. Flow was not detected in the right vertebral artery, suggesting that it may be occluded. Flow within the left verterbral artery is antegrade. Ordering Physician: Alexander Steiner Chi Referring Physician: Alexander Steiner Chi Performed By: Naya Aranda RVT 08/22/242216 Date _ Deni Jackson MD CC: Dr. Alexander Steiner MD ~ Date Dictated: 08/22/24927 Date Transcribed: 08/22/242216 Inspector Rough Castings: Signed [facility] Other Phone: Myoglobin, Serumon 5 Myoglobin, Ser 31 ng/mL Normal 28-72 [facility] Comment on above: Result Comment: Perf ormed at: CB - [facility] [address] [id number] Director Business Development: Parker Parsons PhD, Phone: [phone] Performed By: #### L 065.0262, P733.8025, X3995.3496, Z209.8654, L100.0100 ####[facility] [address] [place], [address] Absolute lymphocyte countOrd ered By: Alexander Steiner on 08-12-2024 Lymphocytes Auto (Unsp spec) [#/Vol] 0.94 10*3/uL 0.83-4.51 [facility] Absolute neutrophil countOrd ered By: Alexander Steiner on 08-12-2024 Neutrophils (Bld) [#/Vol] 4.3 10*3/uL 2.0-7.7 [facility] Anion gap in Serum or Plasma Ordered By: Alexander Steiner on 08-12-2024 Anion gap [Moles/Vol] 11 mmol/L 08-08 [facility] Automated lymphocyte count a s percentage of total leukocytesOrdered By: Alexander Jatin on 08-12-2024 Lymphocytes/100 WBC Auto (Unsp spec) 15.0 % Low [facility] BUN/creatinine ratioOrdered By: [facility] on 08-12-2024 Urea nitrogen/Creatinine [Mass ratio] 17.0 mg/mg 01-13 [facility] Basophil percentageOrdered B y: Alexander Jatin on 08-12-2024 Basophils/100 WBC (Bld) 1.4 % High 0-1 [facility] Bilirubin, totalOrdered By: Alexander Jatin on 08-12-2024 Bilirubin [Mass/Vol] 0.43 mg/dL 0.00-1.30 [facility] CBC W/Diff, Automatedon 07-25 Absolute Lymph 0.94 X10 3/uL Normal 0.83-4.51 [facility] Comment on above: Performed By: #### L 501.3620, L500.4050, L3600.5100, L501.4021, L100.0100 ####[facility] [address] [place], [address] Absolute Neut 4.3 X10 3/uL Normal 2.0-7.7 [facility] Comment on above: Performed By: #### L 501.3620, L500.4050, L3600.5100, L501.4021, L100.0100 ####[facility] [address] [place], [address] Basophils/100 WBC (Bld) 1.4 % High 0-1 [facility] Comment on above: Performed By: #### L 501.3620, L500.4050, L3600.5100, L501.4021, L100.0100 ####[facility] [address] [place], [address] Eosinophils/100 WBC (Bld) 2.1 % Normal 0-5 [facility] Comment on above: Performed By: #### L 501.3620, L500.4050, L3600.5100, L501.4021, L100.0100 ####[facility] [address] [place], [address] Erythrocyte distribution width (RBC) [Ratio] 17.2 % High 11.6-14.6 [facility] Comment on above: Performed By: #### L 501.3620, L500.4050, L3600.5100, L501.4021, L100.0100 ####[facility] [address] [place], [address] Hematocrit (Bld) [Volume fraction] 36.3 % Low 40-54 [facility] Comment on above: Performed By: #### L 501.3620, L500.4050, L3600.5100, L501.4021, L100.0100 ####[facility] [address] [place], [address] Hemoglobin (Bld) [Mass/Vol] 11.2 g/dL Low 13.0-16.5 [facility] Comment on above: Performed By: #### L 501.3620, L500.4050, L3600.5100, L501.4021, L100.0100 ####[facility] [address] [place], [address] IG% 0.300 Normal 0.0-0.9 [facility] Comment on above: Result Comment: IG% - Immature Granulocytes (promyelocytes, myelocytes and metamyelocytes) > 1% indicates that a LEFT SHIFT is Present. Performed By: #### L 501.3620, L500.4050, L3600.5100, L501.4021, L100.0100 ####[facility] [address] [place], [address] Lymphocytes/100 WBC (Bld) 15.0 % Low 19-41 [facility] Comment on above: Performed By: #### L 501.3620, L500.4050, L3600.5100, L501.4021, L100.0100 ####[facility] [address] [place], [address] MCH (RBC) [Entitic mass] 24.3 pg Low 27.0-32.0 [facility] Comment on above: Performed By: #### L 501.3620, L500.4050, L3600.5100, L501.4021, L100.0100 ####[facility] [address] [place], [address] MCHC (RBC) [Mass/Vol] 30.9 g/dL Low 32-36 [facility] Comment on above: Performed By: #### L 501.3620, L500.4050, L3600.5100, L501.4021, L100.0100 ####[facility] [address] [place], [address] MCV (RBC) [Entitic vol] 78.9 fL Low 80-94 [facility] Comment on above: Performed By: #### L 501.3620, L500.4050, L3600.5100, L501.4021, L100.0100 ####[facility] [address] [place], [address] Monocytes/100 WBC (Bld) 12.1 % High 0-10 [facility] Comment on above: Performed By: #### L 501.3620, L500.4050, L3600.5100, L501.4021, L100.0100 ####[facility] [address] [place], [address] Neutrophils/100 WBC (Bld) 69.1 % Normal 47-70 [facility] Comment on above: Performed By: #### L 501.3620, L500.4050, L3600.5100, L501.4021, L100.0100 ####[facility] [address] [place], [address] Nucleated RBC (Bld) [#/Vol] 0 10*3/uL Normal 0-5 [facility] Comment on above: Performed By: #### L 501.3620, L500.4050, L3600.5100, L501.4021, L100.0100 ####[facility] [address] [place], [address] Platelet mean volume (Bld) [Entitic vol] 10.9 fL Normal 6.2-12.0 [facility] Comment on above: Performed By: #### L 501.3620, L500.4050, L3600.5100, L501.4021, L100.0100 ####[facility] [address] [place], [address] Platelets (Bld) [#/Vol] 325 10*3/uL Normal 150-450 [facility] Comment on above: Performed By: #### L 501.3620, L500.4050, L3600.5100, L501.4021, L100.0100 ####[facility] [address] [place], [address] RBC (Bld) [#/Vol] 4.60 10*6/uL Normal 4.6-6.2 [facility] Comment on above: Performed By: #### L 501.3620, L500.4050, L3600.5100, L501.4021, L100.0100 ####[facility] [address] [place], [address] RDW SD 49.9 fl High 35.1-43.9 [facility] Comment on above: Performed By: #### L 501.3620, L500.4050, L3600.5100, L501.4021, L100.0100 ####[facility] [address] [place], [address] WBC (Bld) [#/Vol] 6.3 10*3/uL Normal 4.4-11.0 [facility] Comment on above: Performed By: #### L 501.3620, L500.4050, L3600.5100, L501.4021, L100.0100 ####[facility] [address] [place], [address] CPK Total, Creatine Kinaseon 08-12-2024 CPK TOTAL 57 U/L Normal 24-195 [facility] Comment on above: Performed By: #### L 501.3620, L500.4050, L3600.5100, L501.4021, L100.0100 ####[facility] [address] [place], [address] Carbon dioxide, total [Moles /volume] in Central venous bloodOrdered By: Alexander Steiner on 08-12-2024 CO2 [Moles/Vol] 22.4 mmol/L 21.0-32.0 [facility] Chloride assayOrdered By: Emmett Steiner on 08-12-2024 Chloride [Moles/Vol] 107 mmol/L 98-108 [facility] Comprehensive Metabolic Prof ilon 08-12-2024 Albumin [Mass/Vol] 4.0 g/dL Normal 3.4-4.8 [facility] Comment on above: Performed By: #### L 501.3620, L500.4050, L3600.5100, L501.4021, L100.0100 ####[facility] [address] [place], [address] Albumin/Globulin [Mass ratio] 1.4 {ratio} Normal 0.9-2.4 [facility] Comment on above: Performed By: #### L 501.3620, L500.4050, L3600.5100, L501.4021, L100.0100 ####[facility] [address] [place], [address] ALK PHOS 114 U/L Normal 40-129 [facility] Comment on above: Performed By: #### L 501.3620, L500.4050, L3600.5100, L501.4021, L100.0100 ####[facility] [address] [place], [address] ALT [Catalytic activity/Vol] 8 U/L Normal <=46 [facility] Comment on above: Performed By: #### L 501.3620, L500.4050, L3600.5100, L501.4021, L100.0100 ####[facility] [address] [place], [address] AST [Catalytic activity/Vol] 17 U/L Normal <=37 [facility] Comment on above: Performed By: #### L 501.3620, L500.4050, L3600.5100, L501.4021, L100.0100 ####[facility] [address] [place], [address] Bilirubin [Mass/Vol] 0.43 mg/dL Normal 0.00-1.30 [facility] Comment on above: Performed By: #### L 501.3620, L500.4050, L3600.5100, L501.4021, L100.0100 ####[facility] [address] [place], [address] BUN/CRE 17.0 RATIO Normal 10-20 [facility] Comment on above: Performed By: #### L 501.3620, L500.4050, L3600.5100, L501.4021, L100.0100 ####[facility] [address] [place], [address] Calcium [Mass/Vol] 9.5 mg/dL Normal 7.6-11.0 [facility] Comment on above: Performed By: #### L 501.3620, L500.4050, L3600.5100, L501.4021, L100.0100 ####[facility] [address] [place], [address] Chloride [Moles/Vol] 107 mmol/L Normal 98-108 [facility] Comment on above: Performed By: #### L 501.3620, L500.4050, L3600.5100, L501.4021, L100.0100 ####[facility] [address] [place], [address] CO2 [Moles/Vol] 22.4 mmol/L Normal 21.0-32.0 [facility] Comment on above: Performed By: #### L 501.3620, L500.4050, L3600.5100, L501.4021, L100.0100 ####[facility] [address] [place], [address] Creatinine [Mass/Vol] 0.74 mg/dL Normal 0.70-1.20 [facility] Comment on above: Performed By: #### L 501.3620, L500.4050, L3600.5100, L501.4021, L100.0100 ####[facility] [address] [place], [address] GAP 11 Normal 5-15 [facility] Comment on above: Performed By: #### L 501.3620, L500.4050, L3600.5100, L501.4021, L100.0100 ####[facility] [address] [place], [address] GFR/1.73 sq M.predicted among non-blacks MDRD (S/P/Bld) [Vol rate/Area] 91 mL/min/{1.73_m2} Normal >60 [facility] Comment on above: Result Comment: mL/m in/1.73m2 CKD-EPI Creatinine Equation (2020) Performed By: #### L 501.3620, L500.4050, L3600.5100, L501.4021, L100.0100 ####[facility] [address] [place], [address] Globulin (S) [Mass/Vol] 2.8 g/dL Normal 2.2-4.2 [facility] Comment on above: Performed By: #### L 501.3620, L500.4050, L3600.5100, L501.4021, L100.0100 ####[facility] [address] [place], [address] Glucose [Mass/Vol] 99 mg/dL Normal 70-99 [facility] Comment on above: Performed By: #### L 501.3620, L500.4050, L3600.5100, L501.4021, L100.0100 ####[facility] [address] [place], [address] Potassium [Moles/Vol] 3.7 mmol/L Normal 3.3-5.1 [facility] Comment on above: Performed By: #### L 501.3620, L500.4050, L3600.5100, L501.4021, L100.0100 ####[facility] [address] [place], [address] Sodium [Moles/Vol] 140 mmol/L Normal 133-145 [facility] Comment on above: Performed By: #### L 501.3620, L500.4050, L3600.5100, L501.4021, L100.0100 ####[facility] [address] [place], [address] T PROT 6.9 g/dL Normal 5.9-8.4 [facility] Comment on above: Performed By: #### L 501.3620, L500.4050, L3600.5100, L501.4021, L100.0100 ####[facility] [address] [place], [address] Urea nitrogen [Mass/Vol] 13 mg/dL Normal -19 [facility] Comment on above: Performed By: #### L 501.3620, L500.4050, L3600.5100, L501.4021, L100.0100 ####[facility] [address] [place], [address] Eosinophil percentageOrdered By: Alexander Steiner on 08-12-2024 Eosinophils/100 WBC (Bld) 2.1 % 0-5 [facility] Erythrocyte distribution wid th ratioOrdered By: Alexander Steiner on 08-12-2024 Erythrocyte distribution width (RBC) [Ratio] 17.2 % High 11.6-14.6 [facility] Erythrocyte distribution wid th standard deviationOrdered By: Alexander Jatin on 08-12-2024 Erythrocyte distribution width (RBC) [Ratio] 49.9 fl High 35.1-43.9 [facility] Glomerular filtration rate ( GFR) estimation/1.73 sq m using serum, plasma, or whole bOrdered By: Alexander Steiner on 08-12-2024 GFR/1.73 sq M.predicted among non-blacks MDRD (S/P/Bld) [Vol rate/Area] 91 mL/min/{1.73_m2} >60 [facility] Comment on above: mL/min/1.73m2 CKD-EP I Creatinine Equation (2020) Hematocrit Auto (Bld) [Volum e fraction]Ordered By: Alexander Steiner on 08-12-2024 Hematocrit (Bld) [Volume fraction] 36.3 % Low 40-54 [facility] Hemoglobin measurementOrdere d By: Alexander Steiner on 08-12-2024 Hemoglobin (Bld) [Mass/Vol] 11.2 g/dL Low 13.0-16.5 [facility] Immature granulocytes/100 WB C Auto (Bld)Ordered By: Alexander Steiner on 08-12-2024 Immature granulocytes/100 WBC (Bld) 0.300 % 0.0-0.9 [facility] Comment on above: IG% - Immature Granu locytes (promyelocytes, myelocytes and metamyelocytes) > 1% indicates that a LEFT SHIFT is Present. L501.4021on 08-12-2024 Trop T High Sen 15 ng/L Normal <=22 [facility] Comment on above: Performed By: #### L 501.3620, L500.4050, L3600.5100, L501.4021, L100.0100 ####[facility] [address] [place], [address] Laboratory - Chemistry and C hemistry - challengeOrdered By: Alexander Steiner on 08-12-2024 AST [Catalytic activity/Vol] 17 U/L <38 [facility] MCV (mean corpuscular volume ) determinationOrdered By: Alexander Steiner 08-12-2024 MCV (RBC) [Entitic vol] 78.9 fL Low 80-94 [facility] Mean corpuscular hemoglobin (MCH) determinationOrdered By: Alexander Steiner 08-12-2024 MCH (RBC) [Entitic mass] 24.3 pg Low 27.0-32.0 [facility] Mean corpuscular hemoglobin concentration (MCHC) determinationOrdered By: Alexander Steiner 08-12-2024 MCHC (RBC) [Mass/Vol] 30.9 g/dL Low 32-36 [facility] Mean platelet volume determi nationOrdered By: Alexander Steiner 08-12-2024 Platelet mean volume (Bld) [Entitic vol] 10.9 fL 6.2-12.0 [facility] Monocyte percentageOrdered B y: Alexander Packerok on 08-12-2024 Monocytes/100 WBC (Bld) 12.1 % High 0-10 [facility] Neutrophil percentageOrdered By: Alexander Steiner 08-12-2024 Neutrophils/100 WBC (Bld) 69.1 % 47-70 [facility] Nucleated red blood cell per centageOrdered By: Alexander Steiner on 08-12-2024 Nucleated RBC/100 WBC (Bld) [Ratio] 0 % 0-5 [facility] Platelet countOrdered By: Emmett Steiner on 08-12-2024 Platelets (Bld) [#/Vol] 325 10*3/uL 150-450 [facility] Potassium measurement (mass/ volume)Ordered By: Alexander Steiner on 08-12-2024 Potassium (Unsp spec) [Mass/Vol] 3.7 mmol/L 3.3-5.1 [facility] RBC Auto (Bld) [#/Vol]Ordere d By: Alexander Steiner on 08-12-2024 RBC (Bld) [#/Vol] 4.60 10*6/uL 4.6-6.2 [facility] Serum creatinine measurement (mass/volume)Ordered By: Alexander Steiner on 08-12-2024 Creatinine [Mass/Vol] 0.74 mg/dL 0.70-1.20 [facility] Serum globulin measurementOr dered By: Alexander Steiner on 08-12-2024 Globulin (S) [Mass/Vol] 2.8 g/dL 2.2-4.2 [facility] Serum glucose measurement (m ass/volume)Ordered By: Alexander Steiner on 08-12-2024 Glucose [Mass/Vol] 99 mg/dL 70-99 [facility] Serum myoglobin measurementO rdered By: Alexander Steiner 08-12-2024 Myoglobin [Mass/Vol] 31 ng/mL 28-72 [facility] Comment on above: Performed at: [facility] [address] [id number] Director: Parker Parsons PhD, Phone: [phone] Serum or plasma alanine luna otransferase (ALT) measurementOrdered By: Alexander Steiner on 08-12-2024 ALT [Catalytic activity/Vol] 8 U/L <47 [facility] Serum or plasma albumin maddie urement (mass/volume)Ordered By: Alexander Steiner on 08-12-2024 Albumin [Mass/Vol] 4.0 g/dL 3.4-4.8 [facility] Serum or plasma albumin/glob ulin mass ratioOrdered By: Alexander Steiner 08-12-2024 Albumin/Globulin [Mass ratio] 1.4 {ratio} 0.9-2.4 [facility] Serum or plasma alkaline cheryl sphatase measurementOrdered By: Alexander Steiner 08-12-2024 ALP [Catalytic activity/Vol] 114 U/L 40-129 [facility] Serum or plasma calcium maddie urement (mass/volume)Ordered By: Alexander Steiner 08-12-2024 Calcium [Mass/Vol] 9.5 mg/dL 7.6-11.0 [facility] Serum or plasma creatine kin ase activityOrdered By: Alexander Steiner 08-12-2024 CK [Catalytic activity/Vol] 57 U/L 24-195 [facility] Serum or plasma urea nitroge n measurement (mass/volume)Ordered By: Alexander Steiner 08-12-2024 Urea nitrogen [Mass/Vol] 13 mg/dL 4-19 [facility] Sodium levelOrdered By: Alexander Steiner 08-12-2024 Sodium [Moles/Vol] 140 mmol/L 133-145 [facility] Total proteinOrdered By: Alexander Steiner 08-12-2024 Protein [Mass/Vol] 6.9 g/dL 5.9-8.4 [facility] Troponin T.cardiac [Mass/vol ume] in Serum or Plasma by High sensitivity methodOrdered By: Alexander Steiner 08-12-2024 Troponin T.cardiac High sensitivity method [Mass/Vol] 15 ng/L <22 [facility] White blood cell (WBC) count Ordered By: Alexander Steiner 08-12-2024 WBC (Bld) [#/Vol] 6.3 10*3/uL 4.4-11.0 [facility] Radiation Oncology Visiton 0 07-08-2024 Radiation Oncology Visit [facility] [address] [place], [place] [address] [address] OFFICE VISIT Date of Service: 07/08/24 1105 MR#: [id number] Acct: [id number] Name: JERODMARGAUXMADELYN RANGEL Rep #: [id number] : 1940 From: Alejandro Machado DO Age/Sex: 83/M Location: [facility] Status: Signed Intake Vital Signs 02/29/24 11:32 07/08/24 11:09 Height 5 ft 7 in 5 ft 7 in Weight: 122 lb 6 oz BMI 19.1 BP 138/72 H Blood Pressure Location Lt brachial Position Sitting Respiration 16 Pulse 83 Pulse Source Monitor Temp 98.1 F Temperature Source Temporal Artery Pulse Oximetry (%) 98 Oxygen Delivery Method room air Intake Visit Reasons: 4 MONTH LUNG, REVIEW CT Is patient in pain?: No Allergies No Known Allergies Allergy (Verified 07/08/24 11:08) Medications ???Medication ???Instructions ???Recorded ???Confirmed ???Type aspirin 81 mg tablet,delayed 81 mg PO DAILY 01/27/16 07/08/24 H istory release terazosin 1 mg capsule 1 mg PO DAILY 04/18/19 07/08/24 Hi story omeprazole 40 mg capsule,delayed 40 mg PO DAILY 05/25/19 07/08/24 H istory release atorvastatin 20 mg tablet 20 mg PO DAILY #90 tabs 10/14/20 0 07/08/24 Rx tamsulosin 0.4 mg capsule 0.4 mg PO DAILY 04/20/21 07/08/24 History budesonide 0.25 mg/2 mL suspension 0.25 mg inhalation BID 10/20/21 07/08/24 History for nebulization calcium 600 mg (as 1 cap PO BID #180 caps 07/05/22 Rx carbonate)-vitamin D3 5 mcg (200 unit) capsule (Calcium 600 + D(3)) multivitamin 1 tab PO DAILY 12/12/22 07/08/24 H istory gabapentin 100 mg capsule 100 mg PO QDAY 10/04/23 07/08/24 H istory meloxicam 7.5 mg tablet 7.5 mg PO DAILY 10/04/23 07/08/24 History Held on 10/20/23. Instructions: pt not taking zoledronic acid 5 mg/100 mL in 1 ea .Route ONCE #100 mL 10/10/23 07/08/24 Rx mannitol 5 %-water intravenous piggybck finasteride 5 mg tablet 5 mg PO DAILY 11/15/23 07/08/24 Hi story baclofen 10 mg tablet 10 mg PO QDAY PRN 11/28/23 5 History formoterol fumarate 20 mcg/2 mL inhalation 11/28/23 07/08/24 Histo ry solution for nebulization levothyroxine 112 mcg tablet 112 mcg PO QDAY 11/28/23 07/08/24 History potassium chloride 20 mEq 20 meq PO QDAY 11/28/23 07/08/24 H istory tablet,extended release(part/cryst) revefenacin 175 mcg/3 mL solution mcg inhalation 11/28/23 07/08/24 History for nebulization (Yupelri) roflumilast 500 mcg tablet 500 mcg PO QDAY 11/28/23 07/08/24 History Have you fallen in the past year?: No PFSH PFSH Medical History Primary osteoarthritis, right shoulder Erosive esophagitis BPH (benign prostatic hyperplasia) Acute pancreatitis without necrosis or infection, unspecified Dehydration Fecal impaction Abdominal pain Nausea Right shoulder pain Vitamin D deficiency Lung nodule Osteoporosis Sebaceous cyst Postoperative primary hypothyroidism Wears glasses Wears dentures Arthritis High cholesterol Back pain Migraine headache Syncope Former smoker Hx of sinus bradycardia History of stress test Cardiology follow-up encounter Bradycardia Encounter for pre-operative cardiovascular clearance Nodule of left lobe of thyroid gland Mass of upper lobe of right lung Coronary artery calcification Essential hypertension Chronotropic incompetence Matute esophagus Diverticulosis Mixed hyperlipidemia Benign neoplasm of colon Thyroid nodule GERD (gastroesophageal reflux disease) Kidney stones COPD (chronic obstructive pulmonary disease) Asthma Seasonal allergies Home Medications ???Medication ???Instructions ???Recorded ???Last Taken ???Type aspirin 81 mg tablet,delayed 81 mg PO DAILY 01/27/16 10/04/23 H istory release terazosin 1 mg capsule 1 mg PO DAILY 04/18/19 10/05/23 Hi story omeprazole 40 mg capsule,delayed 40 mg PO DAILY 05/25/19 10/05/23 H istory release atorvastatin 20 mg tablet 20 mg PO DAILY #90 tabs 10/14/20 0 10/05/23 Rx tamsulosin 0.4 mg capsule 0.4 mg PO DAILY 04/20/21 Unknown H istory budesonide 0.25 mg/2 mL suspension 0.25 mg inhalation BID 10/20/21 10/05/23 History for nebulization calcium 600 mg (as 1 cap PO BID #180 caps 07/05/22 Rx carbonate)-vitamin D3 5 mcg (200 unit) capsule (Calcium 600 + D(3)) multivitamin 1 tab PO DAILY 12/12/22 Unknown Hi story gabapentin 100 mg capsule 100 mg PO QDAY 10/04/23 10/05/23 H istory meloxicam 7.5 mg tablet 7.5 mg PO DAILY 10/04/23 09/28/23 History Held on 10/20/23. Instructions: pt not taking zoledronic acid 5 mg/100 mL in 1 ea .Route ONCE #100 mL 10/10/23 Unknown Rx mannitol 5 %-water intravenous piggybck finasteride 5 mg tablet 5 mg PO DAILY (more content not included)... Normal [facility] Chest WITH Contraston 2024 [facility] [address] [place], [place] [id number] Chest WITH Contrast MR#: [id number] Acct: [id number] Name: MARGAUX SANDERSON Rep #: [id number] : 1940 M 83 From: Piyush hodge MD PCP: Dr. Alexander Steiner MD Status: REG CLI Study: Chest WITH Contrast Date of Exam: 06/27/24 Exam# [id number] Ordering Dr: Alejandro Machado DO PROCEDURE: CHEST WITH CONTRAST 06/27/2024 REASON FOR EXAM: FOLLOW UP TREATED LUNG CANCER Treated right upper lobe lung carcinoma. TECHNIQUE: Prone and supine chest CT with intravenous contrast, high resolution CT (HRCT) protocol. Coronal and Sagittal reconstruction series were provided. CONTRAST: Isovue-300 VOLUME: 100 mL One or more dose reduction techniques were used (e.g., Automated exposure control, adjustment of the mA and/or kV according to patient size, use of iterative reconstruction technique). RADIATION DOSE SUMMARY: CTDlvol: 7.2 mGy DLP: 170.88 mGycm COMPARISON: Comparison is made with prior study dated February 26, 2024. FINDINGS: Hardware: None Lymph nodes: No mediastinal hilar or axillary lymphadenopathy. Heart and Vasculature: Normal heart size. No pericardial effusion. Atherosclerotic calcifications of the thoracic aorta. Pulmonary arteries are unremarkable. Coronary artery calcification. Lungs and Airways: Essentially stable 1 cm x 1.3 cm spiculated mass in the medial aspect of the right upper lobe. Stable increased markings in the surrounding pulmonary parenchyma suggestive of possible post radiation scarring. No new mass lesion is seen. Pleura: Unremarkable. Upper Abdomen: Unremarkable Bones: Bone windows are unremarkable. CT/Chest WITH Contrast IMPRESSION: Coronary artery calcification (CAC) is is present Stable 1.3 cm x 1 cm spiculated nodule in the medial aspect of the right upper lobe. Reading Location: [facility] CC: Dr. Alejandro Machado DO; Dr. Alexander Steiner MD Inspector Rough Castings: Signed [facility] Chest PA and Lateralon 05-28 Chest PA and Lateral [facility] Imaging Services [address] [place] [id number] Chest PA and Lateral MR#: [id number] Acct: [id number] Name: MARGAUX SANDERSON Rep #: [id number] : 1940 M 83 From: Negro Neal MD PCP: Dr. Alexander Steiner MD Status: REG CLI Study: Chest PA and Lateral Date of Exam: 05/28/24 Exam# [id number] Ordering Dr: Alexander Steiner MD EXAM: XR Chest, 2 Views CLINICAL INDICATION: TECHNIQUE: Frontal and lateral views of the chest. COMPARISON: No relevant prior studies available. FINDINGS: LUNGS AND PLEURAL SPACES: Unremarkable. No consolidation. No pneumothorax. HEART: Unremarkable. No cardiomegaly. MEDIASTINUM: Unremarkable. Normal mediastinal contour. BONES/JOINTS: Unremarkable. No acute fracture. RAD/Chest PA and Lateral IMPRESSION: No acute cardiopulmonary process. Reading Location: [facility] CC: Dr. Alexander Steiner MD Inspector Rough Castings: Signed [facility] Influenza virus A and B and SARS-CoV-2 (COVID-19) and Respiratory syncytial virus RNAOrdered By: Alexander Steiner on 05-28-2024 SARS-CoV-2 (COVID-19) RNA JOHNNIE+probe Ql (Unsp spec) SARS-CoV-2 (COVID 19 PCR) Abnormal [facility] M100.678on 05-28-2024 M100.678 Copy of report sent to Infection Control Printer [id number] 05/28/24 1429 BLUCAS. SARS-CoV-2 (COVID 19) A Positive A INFLUENZA A Negative INFLUENZA B Negative RSV PCR Negative SARS-CoV-2 (COVID 19 PCR) Normal [facility] Comment on above: Performed By: #### M 100.678 #### [facility] Laboratory [address] [place], [address] Absolute lymphocyte countOrd ered By: Micah Jimenez on 05-14-2024 Lymphocytes Auto (Unsp spec) [#/Vol] 1.31 10*3/uL 0.83-4.51 [facility] Absolute neutrophil countOrd ered By: Micah Yajairaasia on 05-14-2024 Neutrophils (Bld) [#/Vol] 3.7 10*3/uL 2.0-7.7 [facility] Automated lymphocyte count a s percentage of total leukocytesOrdered By: Micah Jimenez on 05-14-2024 Lymphocytes/100 WBC Auto (Unsp spec) 21.5 % 19-41 [facility] Basophil percentageOrdered B y: Micah Jimenez on 05-14-2024 Basophils/100 WBC (Bld) 0.5 % 0-1 [facility] CBC W/Diff, Automatedon 04-27 Absolute Lymph 1.31 X10 3/uL Normal 0.83-4.51 [facility] Comment on above: Performed By: #### L 100.0100 ####[facility] [address] [place], [address] Absolute Neut 3.7 X10 3/uL Normal 2.0-7.7 [facility] Comment on above: Performed By: #### L 100.0100 ####[facility] [address] [place], [address] Basophils/100 WBC (Bld) 0.5 % Normal 0-1 [facility] Comment on above: Performed By: #### L 100.0100 ####[facility] [address] [place], [address] Eosinophils/100 WBC (Bld) 2.0 % Normal 0-5 [facility] Comment on above: Performed By: #### L 100.0100 ####[facility] [address] [place], [address] Erythrocyte distribution width (RBC) [Ratio] 16.7 % High 11.6-14.6 [facility] Comment on above: Performed By: #### L 100.0100 ####[facility] [address] [place], [address] Hematocrit (Bld) [Volume fraction] 38.4 % Low 40-54 [facility] Comment on above: Performed By: #### L 100.0100 ####[facility] [address] [place], [address] Hemoglobin (Bld) [Mass/Vol] 11.9 g/dL Low 13.0-16.5 [facility] Comment on above: Performed By: #### L 100.0100 ####[facility] [address] [place], [address] IG% 0.300 Normal 0.0-0.9 [facility] Comment on above: Result Comment: IG% - Immature Granulocytes (promyelocytes, myelocytes and metamyelocytes) > 1% indicates that a LEFT SHIFT is Present. Performed By: #### L 100.0100 ####[facility] [address] [place], [address] Lymphocytes/100 WBC (Bld) 21.5 % Normal 19-41 [facility] Comment on above: Performed By: #### L 100.0100 ####[facility] [address] [place], [address] MCH (RBC) [Entitic mass] 26.4 pg Low 27.0-32.0 [facility] Comment on above: Performed By: #### L 100.0100 ####[facility] [address] [place], [address] MCHC (RBC) [Mass/Vol] 31.0 g/dL Low 32-36 [facility] Comment on above: Performed By: #### L 100.0100 ####[facility] [address] [place], [address] MCV (RBC) [Entitic vol] 85.1 fL Normal 80-94 [facility] Comment on above: Performed By: #### L 100.0100 ####[facility] [address] [place], [address] Monocytes/100 WBC (Bld) 14.6 % High 0-10 [facility] Comment on above: Performed By: #### L 100.0100 ####[facility] [address] [place], [address] Neutrophils/100 WBC (Bld) 61.1 % Normal 47-70 [facility] Comment on above: Performed By: #### L 100.0100 ####[facility] [address] [place], [address] Nucleated RBC (Bld) [#/Vol] 0 10*3/uL Normal 0-5 [facility] Comment on above: Performed By: #### L 100.0100 ####[facility] [address] [place], [address] Platelet mean volume (Bld) [Entitic vol] 9.8 fL Normal 6.2-12.0 [facility] Comment on above: Performed By: #### L 100.0100 ####[facility] [address] [place], [address] Platelets (Bld) [#/Vol] 341 10*3/uL Normal 150-450 [facility] Comment on above: Performed By: #### L 100.0100 ####[facility] [address] [place], [address] RBC (Bld) [#/Vol] 4.51 10*6/uL Low 4.6-6.2 [facility] Comment on above: Performed By: #### L 100.0100 ####[facility] [address] [place], [address] RDW SD 52.6 fl High 35.1-43.9 [facility] Comment on above: Performed By: #### L 100.0100 ####[facility] [address] [place], [address] WBC (Bld) [#/Vol] 6.1 10*3/uL Normal 4.4-11.0 [facility] Comment on above: Performed By: #### L 100.0100 ####[facility] [address] [place], [address] Eosinophil percentageOrdered By: Micah Jimenez on 05-14-2024 Eosinophils/100 WBC (Bld) 2.0 % 0-5 [facility] Erythrocyte distribution wid th ratioOrdered By: Micah Jimenez on 05-14-2024 Erythrocyte distribution width (RBC) [Ratio] 16.7 % High 11.6-14.6 [facility] Erythrocyte distribution wid th standard deviationOrdered By: Micah Jimenez on 05-14-2024 Erythrocyte distribution width (RBC) [Entitic vol] 52.6 fL High 35.1-43.9 [facility] Erythrocyte distribution width (RBC) [Ratio] 52.6 fl High 35.1-43.9 [facility] Hematocrit Auto (Bld) [Volum e fraction]Ordered By: Micah Jimenez on 05-14-2024 Hematocrit (Bld) [Volume fraction] 38.4 % Low 40-54 [facility] Hemoglobin measurementOrdere d By: Micah Jimenez on 05-14-2024 Hemoglobin (Bld) [Mass/Vol] 11.9 g/dL Low 13.0-16.5 [facility] Immature granulocytes/100 WB C Auto (Bld)Ordered By: Micah Jimenez on 05-14-2024 Immature granulocytes/100 WBC (Bld) 0.300 % 0.0-0.9 [facility] Comment on above: IG% - Immature Granu locytes (promyelocytes, myelocytes and metamyelocytes) > 1% indicates that a LEFT SHIFT is Present. Lymphocytes Auto (Unsp spec) [#/Vol]Ordered By: Micah Jimenez on 05-14-2024 Lymphocytes (Bld) [#/Vol] 1.31 10*3/uL 0.83-4.51 [facility] Lymphocytes/100 WBC Auto (Un sp spec)Ordered By: Micah Jimenez on 05-14-2024 Lymphocytes/100 WBC (Bld) 21.5 % 19-41 [facility] MCV (mean corpuscular volume ) determinationOrdered By: Micah Jimenez on 05-14-2024 MCV (RBC) [Entitic vol] 85.1 fL 80-94 [facility] Mean corpuscular hemoglobin (MCH) determinationOrdered By: Micah Jimenez on 05-14-2024 MCH (RBC) [Entitic mass] 26.4 pg Low 27.0-32.0 [facility] Mean corpuscular hemoglobin concentration (MCHC) determinationOrdered By: Micah Jimenez on 05-14-2024 MCHC (RBC) [Mass/Vol] 31.0 g/dL Low 32-36 [facility] Mean platelet volume determi nationOrdered By: Micah Jimenez on 05-14-2024 Platelet mean volume (Bld) [Entitic vol] 9.8 fL 6.2-12.0 [facility] Monocyte percentageOrdered B y: Micah Jimenez on 05-14-2024 Monocytes/100 WBC (Bld) 14.6 % High 0-10 [facility] Neutrophil percentageOrdered By: Micah Jimenez on 05-14-2024 Neutrophils/100 WBC (Bld) 61.1 % 47-70 [facility] Nucleated red blood cell per centageOrdered By: Micah Jimenez on 05-14-2024 Nucleated RBC/100 WBC (Bld) [Ratio] 0 % 0-5 [facility] Platelet countOrdered By: Effie Jimenez on 05-14-2024 Platelets (Bld) [#/Vol] 341 10*3/uL 150-450 [facility] RBC Auto (Bld) [#/Vol]Ordere d By: Micah Jimenez on 05-14-2024 RBC (Bld) [#/Vol] 4.51 10*6/uL Low 4.6-6.2 [facility] White blood cell (WBC) count Ordered By: Micah Jimenez on 05-14-2024 WBC (Bld) [#/Vol] 6.1 10*3/uL 4.4-11.0 [facility] Chest PA and Lateralon 04-12 Chest PA and Lateral [facility] [address] [place], [place] [address] Chest PA and Lateral MR#: [id number] Acct: [id number] Name: MARGAUX SANDERSON Rep #: [id number] : 1940 M 83 From: Filiberto valladares MD PCP: Dr. Alexander Steiner MD Status: REG CL Study: Chest PA and Lateral Date of Exam: 04/12/24 Exam# [id number] Ordering Dr: Alexander Steiner MD [id number] INDICATION: WHEEZING EXAMINATION/TECHNIQUE: X-RAY - XR Chest 2 Views COMPARISON: None. FINDINGS: Chronic lung changes. Hyperinflation. Tortuous and calcified thoracic aorta. The heart is not enlarged. No pleural effusion or pneumothorax. Degenerative changes of the thoracic spine. RAD/Chest PA and Lateral IMPRESSION: No acute radiographic abnormalities. COPD. Electronically Signed: Filiberto Santacruz MD at 10:25 EST , CC: Dr. Alexander Steiner MD Inspector [employer]ings: Signed Normal [facility] Influenza virus A and B and SARS-CoV-2 (COVID-19) and Respiratory syncytial virus RNAOrdered By: Alexander Steiner on 04-12-2024 SARS-CoV-2 (COVID-19) RNA JOHNNIE+probe Ql (Unsp spec) [facility] M100.678on 04-12-2024 M100.678 Pending SARS-CoV-2 (COVID 19) Negative INFLUENZA A Negative INFLUENZA B Negative RSV PCR Negative Normal [facility] Comment on above: Performed By: #### M 100.678 #### [facility] Laboratory [address] [place], [place], [address] Influenza virus A and B and SARS-CoV-2 (COVID-19) and Respiratory syncytial virus RNAOrdered By: Alexander Steiner on 03-26-2024 SARS-CoV-2 (COVID-19) RNA JOHNNIE+probe Ql (Unsp spec) [facility] M100.678on 03-26-2024 M100.678 Pending SARS-CoV-2 (COVID 19) Negative INFLUENZA A Negative INFLUENZA B Negative RSV PCR Negative Normal [facility] Comment on above: Performed By: #### M 100.678 ####[facility] [address] [place], [place], [id number] DOrdered By: Brandi Steiner on 03-06-2024 Vitamin D 25-Hydroxy 27.4 ng/mL [facility] Comment on above: Vitamin D 25(OH) Sta tus Range Deficiency <20 ng/mL (50nmol/L) Insufficiency 20 - 30 ng/mL (50 - 75 nmol/L) Sufficiency 30 - 100 ng/mL (75 - 250 nmol/L) Toxicity >100 ng/mL (>250 nmol/L) Absolute neutrophil countOrd ered By: Alexander Steiner on 03-06-2024 Neutrophils (Bld) [#/Vol] 6.5 10*3/uL 2.0-7.7 [facility] Albumin to globulin ratioOrd ered By: Alexander Steiner on 03-06-2024 Albumin/Globulin [Mass ratio] 0.9 {ratio} 0.9-2.4 [facility] Basophil percentageOrdered B y: Alexander Steiner on 03-06-2024 Basophils/100 WBC (Bld) 0.9 % 0-1 [facility] Bilirubin, totalOrdered By: Alexander Steiner on 03-06-2024 Bilirubin [Mass/Vol] 0.70 mg/dL 0.20-1.00 [facility] Comment on above: For patients on eltr ombopag therapy, use of Dimension [place] TBIL is not recommended. Blood urea nitrogen (BUN)/cr eatinine ratioOrdered By: Alexander Steiner on 03-06-2024 Urea nitrogen/Creatinine [Mass ratio] 15.6 mg/mg 10- [facility] CBC W/Diff, Automatedon 02-24 Absolute Lymph 1.02 X10 3/uL Normal 0.83-4.51 [facility] Comment on above: Performed By: #### L 501.9520, L506.1000, L100.0100, L500.4050, L500.4100 #### [facility] [address] [place], [address] Absolute Neut 6.5 X10 3/uL Normal 2.0-7.7 [facility] Comment on above: Performed By: #### L 501.9520, L506.1000, L100.0100, L500.4050, L500.4100 #### [facility] [address] [place], [address] Basophils/100 WBC (Bld) 0.9 % Normal 0-1 [facility] Comment on above: Performed By: #### L 501.9520, L506.1000, L100.0100, L500.4050, L500.4100 #### [facility] [address] [place], [address] Eosinophils/100 WBC (Bld) 1.2 % Normal 0-5 [facility] Comment on above: Performed By: #### L 501.9520, L506.1000, L100.0100, L500.4050, L500.4100 #### [facility] [address] [place], [address] Erythrocyte distribution width (RBC) [Ratio] 18.6 % High 11.6-14.6 [facility] Comment on above: Performed By: #### L 501.9520, L506.1000, L100.0100, L500.4050, L500.4100 #### [facility] [address] [place], [address] Hematocrit (Bld) [Volume fraction] 40.9 % Normal 40-54 [facility] Comment on above: Performed By: #### L 501.9520, L506.1000, L100.0100, L500.4050, L500.4100 #### [facility] [address] [place], [address] Hemoglobin (Bld) [Mass/Vol] 13.1 g/dL Normal 13.0-16.5 [facility] Comment on above: Performed By: #### L 501.9520, L506.1000, L100.0100, L500.4050, L500.4100 #### [facility] [address] [place], [address] IG% 0.600 Normal 0.0-0.9 [facility] Comment on above: Result Comment: IG% - Immature Granulocytes (promyelocytes, myelocytes and metamyelocytes) > 1% indicates that a LEFT SHIFT is Present. Performed By: #### L 501.9520, L506.1000, L100.0100, L500.4050, L500.4100 #### [facility] [address] [place], [address] Lymphocytes/100 WBC (Bld) 12.1 % Low 19-41 [facility] Comment on above: Performed By: #### L 501.9520, L506.1000, L100.0100, L500.4050, L500.4100 #### [facility] [address] [place], [address] MCH (RBC) [Entitic mass] 26.7 pg Low 27.0-32.0 [facility] Comment on above: Performed By: #### L 501.9520, L506.1000, L100.0100, L500.4050, L500.4100 #### [facility] [address] [place], [address] MCHC (RBC) [Mass/Vol] 32.0 g/dL Normal 32-36 [facility] Comment on above: Performed By: #### L 501.9520, L506.1000, L100.0100, L500.4050, L500.4100 #### [facility] [address] [place], [address] MCV (RBC) [Entitic vol] 83.3 fL Normal 80-94 [facility] Comment on above: Performed By: #### L 501.9520, L506.1000, L100.0100, L500.4050, L500.4100 #### [facility] [address] [place], [address] Monocytes/100 WBC (Bld) 8.9 % Normal 0-10 [facility] Comment on above: Performed By: #### L 501.9520, L506.1000, L100.0100, L500.4050, L500.4100 #### [facility] [address] [place], [address] Neutrophils/100 WBC (Bld) 76.3 % High 47-70 [facility] Comment on above: Performed By: #### L 501.9520, L506.1000, L100.0100, L500.4050, L500.4100 #### [facility] [address] [place], [address] Nucleated RBC (Bld) [#/Vol] 0 10*3/uL Normal 0-5 [facility] Comment on above: Performed By: #### L 501.9520, L506.1000, L100.0100, L500.4050, L500.4100 #### [facility] [address] [place], [address] Platelet mean volume (Bld) [Entitic vol] 10.0 fL Normal 6.2-12.0 [facility] Comment on above: Performed By: #### L 501.9520, L506.1000, L100.0100, L500.4050, L500.4100 #### [facility] [address] [place], [address] Platelets (Bld) [#/Vol] 288 10*3/uL Normal 150-450 [facility] Comment on above: Performed By: #### L 501.9520, L506.1000, L100.0100, L500.4050, L500.4100 #### [facility] [address] [place], [address] RBC (Bld) [#/Vol] 4.91 10*6/uL Normal 4.6-6.2 [facility] Comment on above: Performed By: #### L 501.9520, L506.1000, L100.0100, L500.4050, L500.4100 #### [facility] [address] [place], [address] RDW SD 55.6 fl High 35.1-43.9 [facility] Comment on above: Performed By: #### L 501.9520, L506.1000, L100.0100, L500.4050, L500.4100 #### [facility] [address] [place], [address] WBC (Bld) [#/Vol] 8.5 10*3/uL Normal 4.4-11.0 [facility] Comment on above: Performed By: #### L 501.9520, L506.1000, L100.0100, L500.4050, L500.4100 #### [facility] [address] [place], [address] Carbon dioxide measurementOr dered By: Alexander Steienr on 03-06-2024 CO2 [Moles/Vol] 23.0 mmol/L 21.0-32.0 [facility] Chloride measurementOrdered By: Alexander Steiner on 03-06-2024 Chloride [Moles/Vol] 112 mmol/L High 98-107 [facility] Comprehensive Metabolic Prof ilon 03-06-2024 Albumin [Mass/Vol] 3.5 g/dL Normal 3.2-5.0 [facility] Comment on above: Performed By: #### L 501.9520, L506.1000, L100.0100, L500.4050, L500.4100 #### [facility] [address] [place], [address] Albumin/Globulin [Mass ratio] 0.9 {ratio} Normal 0.9-2.4 [facility] Comment on above: Performed By: #### L 501.9520, L506.1000, L100.0100, L500.4050, L500.4100 #### [facility] [address] [place], [address] ALK P 119 U/L High 45-117 [facility] Comment on above: Performed By: #### L 501.9520, L506.1000, L100.0100, L500.4050, L500.4100 #### [facility] [address] [place], [address] ALT [Catalytic activity/Vol] 19 U/L Normal 16-61 [facility] Comment on above: Performed By: #### L 501.9520, L506.1000, L100.0100, L500.4050, L500.4100 #### [facility] [address] [place], [address] AST [Catalytic activity/Vol] 11 U/L Low 15-37 [facility] Comment on above: Performed By: #### L 501.9520, L506.1000, L100.0100, L500.4050, L500.4100 #### [facility] [address] [place], [address] Bilirubin [Mass/Vol] 0.70 mg/dL Normal 0.20-1.00 [facility] Comment on above: Result Comment: For patients on eltrombopag therapy, use of Dimension [place] TBIL is not recommended. Performed By: #### L 501.9520, L506.1000, L100.0100, L500.4050, L500.4100 #### [facility] [address] [place], [address] BUN/CRE 15.6 RATIO Normal 10-20 [facility] Comment on above: Performed By: #### L 501.9520, L506.1000, L100.0100, L500.4050, L500.4100 #### [facility] [address] [place], [address] CA,Total 9.7 mg/dL Normal 8.5-10.1 [facility] Comment on above: Performed By: #### L 501.9520, L506.1000, L100.0100, L500.4050, L500.4100 #### [facility] [address] [place], [address] Chloride [Moles/Vol] 112 mmol/L High 98-107 [facility] Comment on above: Performed By: #### L 501.9520, L506.1000, L100.0100, L500.4050, L500.4100 #### [facility] [address] [place], [address] CO2 [Moles/Vol] 23.0 mmol/L Normal 21.0-32.0 [facility] Comment on above: Performed By: #### L 501.9520, L506.1000, L100.0100, L500.4050, L500.4100 #### [facility] [address] [place], [address] Creatinine [Mass/Vol] 0.84 mg/dL Normal 0.70-1.30 [facility] Comment on above: Result Comment: The validity of the calculated GFR GFRAA in patients over 70 years has not been determined. Clinical correlation is essential. Performed By: #### L 501.9520, L506.1000, L100.0100, L500.4050, L500.4100 #### [facility] [address] [place], [address] EST GFR - AA 113 mL/min Normal >60 [facility] Comment on above: Result Comment: Afri can Japanese GFR Calc Performed By: #### L 501.9520, L506.1000, L100.0100, L500.4050, L500.4100 #### [facility] [address] [place], [address] GAP 7 Normal 5-15 [facility] Comment on above: Performed By: #### L 501.9520, L506.1000, L100.0100, L500.4050, L500.4100 #### [facility] [address] [place], [address] GFR/1.73 sq M.predicted among non-blacks MDRD (S/P/Bld) [Vol rate/Area] 94 mL/min/{1.73_m2} Normal >60 [facility] Comment on above: Result Comment: Non- GFR Calc Performed By: #### L 501.9520, L506.1000, L100.0100, L500.4050, L500.4100 #### [facility] [address] [place], [address] Globulin (S) [Mass/Vol] 3.9 g/dL Normal 2.2-4.2 [facility] Comment on above: Performed By: #### L 501.9520, L506.1000, L100.0100, L500.4050, L500.4100 #### [facility] [address] [place], [address] Glucose [Mass/Vol] 107 mg/dL High 74-106 [facility] Comment on above: Result Comment: Fast ing Glucose result from 100 to 125 mg/dL suggests IMPAIRED HOMEOSTASIS per A.D.A. criteria. Performed By: #### L 501.9520, L506.1000, L100.0100, L500.4050, L500.4100 #### [facility] [address] [place], [address] Potassium [Moles/Vol] 3.8 mmol/L Normal 3.5-5.1 [facility] Comment on above: Performed By: #### L 501.9520, L506.1000, L100.0100, L500.4050, L500.4100 #### [facility] [address] [place], [address] Sodium [Moles/Vol] 141 mmol/L Normal 136-145 [facility] Comment on above: Performed By: #### L 501.9520, L506.1000, L100.0100, L500.4050, L500.4100 #### [facility] [address] [place], [address] T PROT 7.4 g/dL Normal 6.4-8.2 [facility] Comment on above: Performed By: #### L 501.9520, L506.1000, L100.0100, L500.4050, L500.4100 #### [facility] [address] [place], [address] Urea nitrogen [Mass/Vol] 13 mg/dL Normal 7-18 [facility] Comment on above: Performed By: #### L 501.9520, L506.1000, L100.0100, L500.4050, L500.4100 #### [facility] [place], [address] Eosinophil percentageOrdered By: Alexander Steiner 03-06-2024 Eosinophils/100 WBC (Bld) 1.2 % 0-5 [facility] Erythrocyte distribution wid th ratioOrdered By: Alexander Stiener on 03-06-2024 Erythrocyte distribution width (RBC) [Ratio] 18.6 % High 11.6-14.6 [facility] Erythrocyte distribution wid th standard deviationOrdered By: Alexander Jatin on 03-06-2024 Erythrocyte distribution width (RBC) [Entitic vol] 55.6 fL High 35.1-43.9 [facility] Estimated glomerular filtrat ion rate (GFR) AmericanOrdered By: Alexander Steiner 03-06-2024 Estimated GFR (MDRD) Amer 113 mL/min >60 [facility] Comment on above: GFR Calc Glomerular filtration rate ( GFR) estimationOrdered By: Alexander Steiner 03-06-2024 Estimated GFR (MDRD) Non-Af Amer 94 mL/min >60 [facility] Comment on above: Non- GFR Calc Glucose measurementOrdered B y: Alexander Steiner on 03-06-2024 Glucose [Mass/Vol] 107 mg/dL High 74-106 [facility] Comment on above: Fasting Glucose resu lt from 100 to 125 mg/dL suggests IMPAIRED HOMEOSTASIS per A.D.A. criteria. Hematocrit Auto (Bld) [Volum e fraction]Ordered By: Alexander Steiner on 03-06-2024 Hematocrit (Bld) [Volume fraction] 40.9 % 40-54 [facility] Hemoglobin measurementOrdere d By: Alexander Steiner 03-06-2024 Hemoglobin (Bld) [Mass/Vol] 13.1 g/dL 13.0-16.5 [facility] High density lipoprotein (HD L) measurementOrdered By: [facility] Cholesterol in HDL [Mass/Vol] 83 mg/dL >40 [facility] Comment on above: The drugs N-Acetylcy steine and Metamizole may falsely depress this assay. Reference Range HDL <40 mg/dL Low HDL Cholesterol HDL >or= 60 mg/dL High HDL Cholesterol Immature granulocytes/100 WB C Auto (Bld)Ordered By: Alexander Steiner on 03-06-2024 Immature granulocytes/100 WBC (Bld) 0.600 % 0.0-0.9 [facility] Comment on above: IG% - Immature Granu locytes (promyelocytes, myelocytes and metamyelocytes) > 1% indicates that a LEFT SHIFT is Present. Laboratory - Chemistry and C hemistry - challengeOrdered By: Alexander Steiner on 03-06-2024 AST [Catalytic activity/Vol] 11 U/L Low 15-37 [facility] Lipid Profileon 03-06-2024 Cholesterol [Mass/Vol] 173 mg/dL Normal 200 [facility] Comment on above: Result Comment: <200 mg/dL Desirable 200-240 mg/dL Borderline >240 mg/dL High Risk Performed By: #### L 501.9520, L506.1000, L100.0100, L500.4050, L500.4100 #### [facility] [address] [place], [address] Cholesterol in HDL [Mass/Vol] 83 mg/dL Normal [facility] Comment on above: Result Comment: The drugs N-Acetylcysteine and Metamizole may falsely depress this assay. Reference Range HDL <40 mg/dL Low HDL Cholesterol HDL >or= 60 mg/dL High HDL Cholesterol Performed By: #### L 501.9520, L506.1000, L100.0100, L500.4050, L500.4100 #### [facility] [address] [place], [address] Cholesterol in LDL [Mass/Vol] 75 mg/dL Normal 0-130 [facility] Comment on above: Performed By: #### L 501.9520, L506.1000, L100.0100, L500.4050, L500.4100 #### [facility] [address] [place], [address] Cholesterol in VLDL [Mass/Vol] 15 mg/dL Normal 5-40 [facility] Comment on above: Performed By: #### L 501.9520, L506.1000, L100.0100, L500.4050, L500.4100 #### [facility] [address] [facility] [place] [place], [address] Triglyceride [Mass/Vol] 74 mg/dL Normal [facility] Comment on above: Result Comment: The drugs N-Acetylcysteine and Metamizole may falsely depress this assay. Serum Triglycerides Reference Interval Normal <150 mg/dL Borderline high 150 - 199 mg/dL High 200 - 499 mg/dL Very High > or = 500 mg/dL Performed By: #### L 501.9520, L506.1000, L100.0100, L500.4050, L500.4100 #### [facility] [address] [facility] [place] [place], [address] Low density lipoprotein (LDL ) cholesterol measurementOrdered By: Alexander Steiner on 03-06-2024 Cholesterol in LDL [Mass/Vol] 75 mg/dL 0-130 [facility] Lymphocytes Auto (Unsp spec) [#/Vol]Ordered By: Alexander Steiner on 03-06-2024 Lymphocytes (Bld) [#/Vol] 1.02 10*3/uL 0.83-4.51 [facility] Lymphocytes/100 WBC Auto (Un sp spec)Ordered By: Alexander Steiner 03-06-2024 Lymphocytes/100 WBC (Bld) 12.1 % Low 19-41 [facility] MCV (mean corpuscular volume ) determinationOrdered By: Alexander Steiner on 03-06-2024 MCV (RBC) [Entitic vol] 83.3 fL 80-94 [facility] Mean corpuscular hemoglobin (MCH) determinationOrdered By: Alexander Steiner on 03-06-2024 MCH (RBC) [Entitic mass] 26.7 pg Low 27.0-32.0 [facility] Mean corpuscular hemoglobin concentration (MCHC) determinationOrdered By: Alexander Steiner 03-06-2024 MCHC (RBC) [Mass/Vol] 32.0 g/dL 32-36 [facility] Mean platelet volume determi nationOrdered By: Alexander Steiner on 03-06-2024 Platelet mean volume (Bld) [Entitic vol] 10.0 fL 6.2-12.0 [facility] Monocyte percentageOrdered B y: Alexander Steiner on 03-06-2024 Monocytes/100 WBC (Bld) 8.9 % 0-10 [facility] Neutrophil percentageOrdered By: Alexander Steiner on 03-06-2024 Neutrophils/100 WBC (Bld) 76.3 % High 47-70 [facility] Nucleated red blood cell per centageOrdered By: Alexander Steiner on 03-06-2024 Nucleated RBC/100 WBC (Bld) [Ratio] 0 % 0-5 [facility] Platelet countOrdered By: Emmett Steiner on 03-06-2024 Platelets (Bld) [#/Vol] 288 10*3/uL 150-450 [facility] Potassium measurementOrdered By: Alexander Steiner on 03-06-2024 Potassium [Moles/Vol] 3.8 mmol/L 3.5-5.1 [facility] RBC Auto (Bld) [#/Vol]Ordere d By: Alexander Steiner on 03-06-2024 RBC (Bld) [#/Vol] 4.91 10*6/uL 4.6-6.2 [facility] Serum anion gap measurementO rdered By: Alexander Steiner on 03-06-2024 Anion gap [Moles/Vol] 7 mmol/L 5-15 [facility] Serum globulin measurementOr dered By: Alexander Steiner on 03-06-2024 Globulin (S) [Mass/Vol] 3.9 g/dL 2.2-4.2 [facility] Serum or plasma alanine luna otransferase (ALT) measurementOrdered By: Alexander Steiner on 03-06-2024 ALT [Catalytic activity/Vol] 19 U/L 16-61 [facility] Serum or plasma albumin maddie urement (mass/volume)Ordered By: Alexander Steiner on 03-06-2024 Albumin [Mass/Vol] 3.5 g/dL 3.2-5.0 [facility] Serum or plasma alkaline cheryl sphatase measurementOrdered By: Alexander Steiner on 03-06-2024 ALP [Catalytic activity/Vol] 119 U/L High 45-117 [facility] Serum or plasma calcium maddie urement (mass/volume)Ordered By: Alexander Steiner on 03-06-2024 Calcium [Mass/Vol] 9.7 mg/dL 8.5-10.1 [facility] Serum or plasma cholesterol measurement (mass/volume)Ordered By: Alexander Steiner on 03-06-2024 Cholesterol [Mass/Vol] 173 mg/dL <200 [facility] Comment on above: <200 mg/dL Desirable 200-240 mg/dL Borderline >240 mg/dL High Risk Serum or plasma creatinine m easurement (mass/volume)Ordered By: Alexander Steiner on 03-06-2024 Creatinine [Mass/Vol] 0.84 mg/dL 0.70-1.30 [facility] Comment on above: The validity of the calculated GFR & GFRAA in patients over 70 years has not been determined. Clinical correlation is essential. Serum or plasma urea nitroge n measurement (mass/volume)Ordered By: Alexander Steiner on 03-06-2024 Urea nitrogen [Mass/Vol] 13 mg/dL 7-18 [facility] Sodium levelOrdered By: Alexander Steiner on 03-06-2024 Sodium [Moles/Vol] 141 mmol/L 136-145 [facility] TSH QnOrdered By: Alexander Steiner o n 03-06-2024 Thyroid Stimulating Hormone (TSH) 0.709 uIU/mL 0.358-3.74 0 [facility] Thyroid Stim Hormone (TSH)on 03-06-2024 TSH 0.709 uIU/mL Normal 0.358-3.74 0 [facility] Comment on above: Performed By: #### L 501.9520, L506.1000, L100.0100, L500.4050, L500.4100 #### [facility] [place], [address] Total proteinOrdered By: Alexander Steiner on 03-06-2024 Protein [Mass/Vol] 7.4 g/dL 6.4-8.2 [facility] Triglycerides measurementOrd ered By: Alexander Steiner on 03-06-2024 Triglyceride [Mass/Vol] 74 mg/dL <199 [facility] Comment on above: The drugs N-Acetylcy steine and Metamizole may falsely depress this assay.Serum Triglycerides Reference Interval Normal <150 mg/dL Borderline high 150 - 199 mg/dL High 200 - 499 mg/dL Very High > or = 500 mg/dL Very low density lipoprotein (VLDL) cholesterol measurementOrdered By: Alexander Steiner on 03-06-2024 VLDL Cholesterol 15 mg/dL 5-40 [facility] Vitamin D,25 Hydroxyon 03-06 Vitamin D 25-OH 27.4 ng/mL Normal [facility] Comment on above: Result Comment: Snow min D 25(OH) Status Range Deficiency <20 ng/mL (50nmol/L) Insufficiency 20 - 30 ng/mL (50 - 75 nmol/L) Sufficiency 30 - 100 ng/mL (75 - 250 nmol/L) Toxicity >100 ng/mL (>250 nmol/L) Performed By: #### L 501.9520, L506.1000, L100.0100, L500.4050, L500.4100 #### [facility] [address] [place], [address] White blood cell (WBC) count Ordered By: Alexander Steiner on 03-06-2024 WBC (Bld) [#/Vol] 8.5 10*3/uL 4.4-11.0 [facility] Radiation Oncology Visiton 1 05-01-2023 Radiation Oncology Visit [facility] [address] [place] [address] OFFICE VISIT Date of Service: 02/29/24 1131 MR#: [id number] Acct: [id number] Name: MARGAUX SANDERSON Rep #: [id number] : 1940 From: Alejandro Machado DO Age/Sex: 83/M Location: [facility] [place] Status: Signed Intake Vital Signs 11/28/23 10:23 02/29/24 11:32 Height 5 ft 7 in 5 ft 7 in Weight: 125 lb 129 lb 9 oz BMI 19.5 20.2 BP 127/73 H 121/73 H Blood Pressure Location Lt brachial Lt brachial Position Sitting Sitting Respiration 20 H 18 Pulse 73 76 Pulse Source Monitor Monitor Temp 98.3 F 97.4 F L Temperature Source Temporal Artery Temporal Artery Pulse Oximetry (%) 97 98 Oxygen Delivery Method room air room air Intake Visit Reasons: 3 MONTH F/U LUNG, REVIEW CT Is patient in pain?: No Allergies No Known Allergies Allergy (Verified 02/29/24 11:34) Medications ???Medication ???Instructions ???Recorded ???Confirmed ???Type aspirin 81 mg tablet,delayed 81 mg PO DAILY 01/27/16 02/29/24 History release terazosin 1 mg capsule 1 mg PO DAILY 04/18/19 02/29/24 History omeprazole 40 mg capsule,delayed 40 mg PO DAILY 05/25/19 02/29/24 History release atorvastatin 20 mg tablet 20 mg PO DAILY #90 tabs 10/14/20 02/29/24 Rx tamsulosin 0.4 mg capsule 0.4 mg PO DAILY 04/20/21 02/29/24 History budesonide 0.25 mg/2 mL suspension 0.25 mg inhalation BID 10/20/21 02/29/24 History for nebulization calcium 600 mg (as 1 cap PO BID #180 caps 07/05/22 02/29/24 Rx carbonate)-vitamin D3 5 mcg (200 unit) capsule (Calcium 600 + D(3)) multivitamin 1 tab PO DAILY 12/12/22 02/29/24 History gabapentin 100 mg capsule 100 mg PO QDAY 10/04/23 02/29/24 History meloxicam 7.5 mg tablet 7.5 mg PO DAILY 10/04/23 02/29/24 History zoledronic acid 5 mg/100 mL in 1 ea .Route ONCE #100 mL 10/10/23 02/29/24 Rx mannitol 5 %-water intravenous piggybck finasteride 5 mg tablet 5 mg PO DAILY 11/15/23 02/29/24 History baclofen 10 mg tablet 10 mg PO QDAY PRN 11/28/23 02/29/24 History formoterol fumarate 20 mcg/2 mL inhalation 11/28/23 02/29/24 History solution for nebulization levothyroxine 112 mcg tablet 112 mcg PO QDAY 11/28/23 02/29/24 History potassium chloride 20 mEq 20 meq PO QDAY 11/28/23 02/29/24 History tablet,extended release(part/cryst) revefenacin 175 mcg/3 mL solution mcg inhalation 11/28/23 02/29/24 History for nebulization (Gonzalesi) roflumilast 500 mcg tablet 500 mcg PO QDAY 11/28/23 02/29/24 History Have you fallen in the past year?: No PFSH PFSH Medical History Primary osteoarthritis, right shoulder Erosive esophagitis BPH (benign prostatic hyperplasia) Acute pancreatitis without necrosis or infection, unspecified Dehydration Fecal impaction Abdominal pain Nausea Right shoulder pain Vitamin D deficiency Lung nodule Osteoporosis Sebaceous cyst Postoperative primary hypothyroidism Wears glasses Wears dentures Arthritis High cholesterol Back pain Migraine headache Syncope Former smoker Hx of sinus bradycardia History of stress test Cardiology follow-up encounter Bradycardia Encounter for pre-operative cardiovascular clearance Nodule of left lobe of thyroid gland Mass of upper lobe of right lung Coronary artery calcification Essential hypertension Chronotropic incompetence Matute esophagus Diverticulosis Mixed hyperlipidemia Benign neoplasm of colon Thyroid nodule GERD (gastroesophageal reflux disease) Kidney stones COPD (chronic obstructive pulmonary disease) Asthma Seasonal allergies Home Medications ???Medication ???Instructions ???Recorded ???Last Taken ???Type aspirin 81 mg tablet,delayed 81 mg PO DAILY 01/27/16 10/04/23 History release terazosin 1 mg capsule 1 mg PO DAILY 04/18/19 10/05/23 History omeprazole 40 mg capsule,delayed 40 mg PO DAILY 05/25/19 10/05/23 History release atorvastatin 20 mg tablet 20 mg PO DAILY #90 tabs 10/14/20 10/05/23 Rx tamsulosin 0.4 mg capsule 0.4 mg PO DAILY 04/20/21 Unknown History budesonide 0.25 mg/2 mL suspension 0.25 mg inhalation BID 10/20/21 10/05/23 History for nebulization calcium 600 mg (as 1 cap PO BID #180 caps 07/05/22 10/05/23 Rx carbonate)-vitamin D3 5 mcg (200 unit) capsule (Calcium 600 + D(3)) multivitamin 1 tab PO DAILY 12/12/22 Unknown History gabapentin 100 mg capsule 100 mg PO QDAY 10/04/23 10/05/23 History meloxicam 7.5 mg tablet 7.5 mg PO DAILY 10/04/23 09/28/23 History zoledronic acid 5 mg/100 mL in 1 ea .Route ONCE #100 mL 10/10/23 Unknown Rx mannitol 5 %-water intravenous piggybck finasteride 5 mg tablet 5 mg PO DAILY 11/15/23 Unknown History baclofen 10 mg tablet 10 mg PO QDAY PRN 11/28/23 Unknown History (more content not included)... Normal [facility] Chest without Contraston Chest without Contrast [facility] Services [address] [place] [address] Chest without Contrast MR#: [id number] Acct: [id number] Name: MARGAUX SANDERSON Rep #: [id number] : 1940 M 83 From: Zhou Altman MD PCP: Dr. Alexander Steiner MD Status: DEP CL Study: Chest without Contrast Date of Exam: 02/26/24 Exam# [id number] Ordering Dr: Alejandro Machado DO [id number] EXAM: CT CHEST WITHOUT INTRAVENOUS CONTRAST CLINICAL INDICATION: follow up treated lung cancer -- compare to prior TECHNIQUE: Helically acquired images were obtained of the chest without intravenous contrast. This CT exam was performed using one or more of the following dose reduction techniques: automated exposure control, adjustment of the mA and/or kV according to patient size, and/or use of iterative reconstruction technique. COMPARISON: PET/CT dated 12/27/2022 FINDINGS: LUNGS AND PLEURAL SPACES: There are is a spiculated mass in the right upper lobe that measures 1.3 x 1.0 cm on today''s exam compared to 2.4 x 1.5 cm on the PET CT scan. There are emphysematous changes within the lungs. There is no focal consolidation. No pleural effusion or thickening. No pneumothorax. HEART: Unremarkable. Heart size is normal. No pericardial effusion. No significant coronary artery calcifications. MEDIASTINUM: Unremarkable. No mediastinal or hilar adenopathy. Esophagus is unremarkable. No hiatal hernia. THYROID: Unremarkable. No thyroid lesions. BONES/JOINTS: Unremarkable. No suspicious lytic or blastic abnormality. VASCULATURE: Unremarkable. Thoracic aorta is non-dilated. CT/Chest without Contrast IMPRESSION: Interval decrease in size of a spiculated mass in the right upper lobe. This mass was metabolically active on the previous study compatible with malignancy. There is persistent pulmonary hyperinflation with emphysematous change in the lungs. Electronically Signed: Zhou Altman MD at 23:54 EST , CC: Dr. Alejandro Machado DO; Dr. Alexander Steiner MD Inspector [employer] Castings: Signed Normal [facility] Orthopedic Visit Reporton Orthopedic Visit Report [facility] [address] [place] [address] OFFICE VISIT Date of Service: 02/19/24 MR#: [id number] Acct: [id number] Name: MARGAUX SANDERSON Rep #: [id number] : 1940 Provider: Dr. Gregory iqbal MD Age/Sex: 83/M Location: [facility] [place] Status: Signed with Addenda ADDENDUM by FRANKY Thorne on 02/19/24 at 1120 Office Procedure Documentation entered by Yael Thorne MA 02/19/24 11:20: Ortho Injections Injections Yes Subacromial Injection Right Is this a patient provided medication?: No Details: Obtained consent for injection. Under sterile conditions, injected the patients Right shoulder with 2ml Kenalog and 4ml Bupivacaine. The patient tolerated the injection well without any noted complication. Patient should call our office if redness develops, pain worsens or if they have any concerns. Office Meds Kenalog 40 mg/mL suspension for injection Performing Provider: Gregory Rodriguez MD Performing Location: [facility] Administered by: Gregory Rodriguez MD on 02/19/24 11:19 Dose Route Admin Location Dispensed Lot Number Expiration Date NDC Man ufacturer 80 mg intra-articular Right Shoulder 2 mL [id number] 07/25/25 5605-1507-88 [facility] Date cc: * Signed Intake Vital Signs 11/28/23 10:23 Height 5 ft 7 in Weight: 125 lb BMI 19.5 BP 127/73 H Blood Pressure Location Lt brachial Position Sitting Respiration 20 H Pulse 73 Pulse Source Monitor Temp 98.3 F Pulse Oximetry (%) 97 Oxygen Delivery Method room air Intake Visit Reasons: RIGHT SHOULDER Accompanied by: Is patient in pain?: Yes Pain scale (1-10): 5 Allergies No Known Allergies Allergy (Verified 02/19/24 10:42) Medications ???Medication ???Instructions ???Recorded ???Confirmed ???Type aspirin 81 mg tablet,delayed 81 mg PO DAILY 01/27/16 02/19/24 History release terazosin 1 mg capsule 1 mg PO DAILY 04/18/19 02/19/24 History omeprazole 40 mg capsule,delayed 40 mg PO DAILY 05/25/19 02/19/24 History release atorvastatin 20 mg tablet 20 mg PO DAILY #90 tabs 10/14/20 02/19/24 Rx tamsulosin 0.4 mg capsule 0.4 mg PO DAILY 04/20/21 02/19/24 History budesonide 0.25 mg/2 mL suspension 0.25 mg inhalation BID 10/20/21 02/19/24 History for nebulization calcium 600 mg (as 1 cap PO BID #180 caps 07/05/22 02/19/24 Rx carbonate)-vitamin D3 5 mcg (200 unit) capsule (Calcium 600 + D(3)) multivitamin 1 tab PO DAILY 12/12/22 02/19/24 History gabapentin 100 mg capsule 100 mg PO QDAY 10/04/23 02/19/24 History meloxicam 7.5 mg tablet 7.5 mg PO DAILY 10/04/23 02/19/24 History zoledronic acid 5 mg/100 mL in 1 ea .Route ONCE #100 mL 10/10/23 02/19/24 Rx mannitol 5 %-water intravenous piggybck finasteride 5 mg tablet 5 mg PO DAILY 11/15/23 02/19/24 History baclofen 10 mg tablet 10 mg PO QDAY PRN 11/28/23 02/19/24 History formoterol fumarate 20 mcg/2 mL inhalation 11/28/23 02/19/24 History solution for nebulization levothyroxine 112 mcg tablet 112 mcg PO QDAY 11/28/23 02/19/24 History potassium chloride 20 mEq 20 meq PO QDAY 11/28/23 02/19/24 History tablet,extended release(part/cryst) revefenacin 175 mcg/3 mL solution mcg inhalation 11/28/23 02/19/24 History for nebulization (Yupelri) roflumilast 500 mcg tablet 500 mcg PO QDAY 11/28/23 02/19/24 History Have you fallen in the past year?: No PFSH Medical History Primary osteoarthritis, right shoulder Erosive esophagitis BPH (benign prostatic hyperplasia) Acute pancreatitis without necrosis or infection, unspecified Dehydration Fecal impaction Abdominal pain Nausea Right shoulder pain Vitamin D deficiency Lung nodule Osteoporosis Sebaceous cyst Postoperative primary hypothyroidism Wears glasses Wears dentures Arthritis High cholesterol Back pain Migraine headache Syncope Former smoker Hx of sinus bradycardia History of stress test Cardiology follow-up encounter Bradycardia Encounter for pre-operative cardiovascular clearance Nodule of left lobe of thyroid gland Mass of upper lobe of right lung Coronary artery calcification Essential hypertension Chronotropic incompetence Matute esophagus Diverticulosis Mixed hyperlipidemia Benign neoplasm of colon Thyroid nodule GERD (gastroesophageal reflux disease) Kidney stones COPD (chronic obstructive pulmonary disease) Asthma Seasonal allergies Surgical History History of thyroidectomy, total ( 10/2020) Hx of lithotripsy History of needle biopsy (09/16/20) History of colonoscopy with polypectomy History of es (more content not included)... Normal [facility] Radiation Oncology Visiton 0 11-28-2023 Radiation Oncology Visit [facility] [address] [place] [address] OFFICE VISIT Date of Service: 11/28/23 1021 MR#: [id number] Acct: [id number] Name: MARGAUX SANDERSON Rep #: [id number] : 1940 From: Alejandro Machado DO Age/Sex: 83/M Location: [facility] [place] Status: Signed Intake Vital Signs 07/27/23 10:00 10/31/23 10:33 11/21/23 10:31 11/28/23 10:23 Height 5 ft 7 in 5 ft 7 in 5 ft 7 in 5 ft 7 in Weight: 125 lb BMI 19.5 BP 127/73 H Blood Pressure Location Lt brachial Position Sitting Respiration 20 H Pulse 73 Pulse Source Monitor Temp 98.3 F Temperature Source Temporal Artery Pulse Oximetry (%) 97 Oxygen Delivery Method room air Intake Visit Reasons: 4 MONTH F/U LUNG, REVIEW SCAN Chief Complaint: RAD ONC F/U: RUL adenocarcinoma Accompanied by: Daughter Is patient in pain?: No Allergies No Known Allergies Allergy (Verified 11/28/23 10:25) Medications ???Medication ???Instructions ???Recorded ???Confirmed ???Type aspirin 81 mg tablet,delayed 81 mg PO DAILY 01/27/16 11/28/23 History release terazosin 1 mg capsule 1 mg PO DAILY 04/18/19 11/28/23 History omeprazole 40 mg capsule,delayed 40 mg PO DAILY 05/25/19 11/28/23 History release atorvastatin 20 mg tablet 20 mg PO DAILY #90 tabs 10/14/20 11/28/23 Rx tamsulosin 0.4 mg capsule 0.4 mg PO DAILY 04/20/21 11/28/23 History budesonide 0.25 mg/2 mL suspension 0.25 mg inhalation BID 10/20/21 11/28/23 History for nebulization calcium carbonate 600 mg-vitamin 1 cap PO BID #180 caps 07/05/22 11/28/23 Rx D3 5 mcg (200 unit) capsule (Calcium 600 + D(3)) multivitamin 1 tab PO DAILY 12/12/22 11/28/23 History gabapentin 100 mg capsule 100 mg PO QDAY 10/04/23 11/28/23 History meloxicam 7.5 mg tablet 7.5 mg PO DAILY 10/04/23 11/28/23 History zoledronic acid 5 mg/100 mL in 1 ea .Route ONCE #100 mL 10/10/23 11/28/23 Rx mannitol 5 %-water intravenous piggybck finasteride 5 mg tablet 5 mg PO DAILY 11/15/23 11/28/23 History baclofen 10 mg tablet 10 mg PO QDAY PRN 11/28/23 11/28/23 History formoterol fumarate 20 mcg/2 mL inhalation 11/28/23 11/28/23 History solution for nebulization levothyroxine 112 mcg tablet 112 mcg PO QDAY 11/28/23 11/28/23 History potassium chloride 20 mEq 20 meq PO QDAY 11/28/23 11/28/23 History tablet,extended release(part/cryst) revefenacin 175 mcg/3 mL solution mcg inhalation 11/28/23 11/28/23 History for nebulization (Yupelri) roflumilast 500 mcg tablet 500 mcg PO QDAY 11/28/23 11/28/23 History Have you fallen in the past year?: No PFSH PFSH Medical History Erosive esophagitis BPH (benign prostatic hyperplasia) Acute pancreatitis without necrosis or infection, unspecified Dehydration Fecal impaction Abdominal pain Nausea Right shoulder pain Vitamin D deficiency Lung nodule Osteoporosis Sebaceous cyst Postoperative primary hypothyroidism Wears glasses Wears dentures Arthritis High cholesterol Back pain Migraine headache Syncope Former smoker Hx of sinus bradycardia History of stress test Cardiology follow-up encounter Bradycardia Encounter for pre-operative cardiovascular clearance Nodule of left lobe of thyroid gland Mass of upper lobe of right lung Coronary artery calcification Essential hypertension Chronotropic incompetence Matute esophagus Diverticulosis Mixed hyperlipidemia Benign neoplasm of colon Thyroid nodule GERD (gastroesophageal reflux disease) Kidney stones COPD (chronic obstructive pulmonary disease) Asthma Seasonal allergies Home Medications ???Medication ???Instructions ???Recorded ???Last Taken ???Type aspirin 81 mg tablet,delayed 81 mg PO DAILY 01/27/16 10/04/23 History release terazosin 1 mg capsule 1 mg PO DAILY 04/18/19 10/05/23 History omeprazole 40 mg capsule,delayed 40 mg PO DAILY 05/25/19 10/05/23 History release atorvastatin 20 mg tablet 20 mg PO DAILY #90 tabs 10/14/20 10/05/23 Rx tamsulosin 0.4 mg capsule 0.4 mg PO DAILY 04/20/21 Unknown History budesonide 0.25 mg/2 mL suspension 0.25 mg inhalation BID 10/20/21 10/05/23 History for nebulization calcium carbonate 600 mg-vitamin 1 cap PO BID #180 caps 07/05/22 10/05/23 Rx D3 5 mcg (200 unit) capsule (Calcium 600 + D(3)) multivitamin 1 tab PO DAILY 12/12/22 Unknown History gabapentin 100 mg capsule 100 mg PO QDAY 10/04/23 10/05/23 History meloxicam 7.5 mg tablet 7.5 mg PO DAILY 10/04/23 09/28/23 History zoledronic acid 5 mg/100 mL in 1 ea .Route ONCE #100 mL 10/10/23 Unknown Rx mannitol 5 %-water intravenous piggybck finasteride 5 mg tablet 5 mg PO DAILY 11/15/23 Unknown History baclofen 10 mg tablet 10 mg PO QDAY PRN 11/28/23 Unknown History form (more content not included)... Normal [facility] Chest without Contraston Chest without Contrast [facility] [address] [place], [place] [address] Chest without Contrast MR#: [id number] Acct: [id number] Name: MARGAUX SANDERSON Rep #: [id number] : 1940 M 83 From: Karlo Wen MD PCP: Dr. Alexander Steiner MD Status: REG CLI Study: Chest without Contrast Date of Exam: 11/23/23 Exam# [id number] Ordering Dr: Alejandro Machado DO [id number] EXAM: CT CHEST WITHOUT INTRAVENOUS CONTRAST CLINICAL INDICATION: follow up treated lung cancer -- please compare to prior TECHNIQUE: Helically acquired images were obtained of the chest without intravenous contrast. This CT exam was performed using one or more of the following dose reduction techniques: automated exposure control, adjustment of the mA and/or kV according to patient size, and/or use of iterative reconstruction technique. COMPARISON: No relevant prior studies available. FINDINGS: LUNGS AND PLEURAL SPACES: Prior dated 07/24/2023 pleural parenchymal scarring involving the right lung apex again noted. The nodular component appears increased in size from prior exam now measuring 17 mm in maximum diameter prior maximum diameter of 12 mm. This may represent residual/recurrent neoplasm. Prominent diffuse centrilobular pulmonary emphysema again noted. Lungs are otherwise clear. No mass. No pneumothorax. HEART: Stable normal heart size. Prominent coronary artery calcification again seen. MEDIASTINUM: Normal. No mediastinal or hilar adenopathy. Esophagus is unremarkable. No hiatal hernia. BONES/JOINTS: No suspicious lytic or blastic abnormality. VASCULATURE: No aortic aneurysm. CT/Chest without Contrast IMPRESSION: Slight increase in the nodular component of the right apical pulmonary scarring raising possibility of residual or recurrent neoplasm. Follow-up PET scanning recommended. Electronically Signed: Karlo Wen MD at 9:10 EDT Reading Location ID and State: [facility] / [place] Tel , Service support , CC: Dr. Alejandro Machado DO; Dr. Alexander Steiner MD Inspector Rough Castings: Signed Normal [facility] Plastic Surgery Visit Report on 11-21-2023 Plastic Surgery Visit Report [facility] [address], [address] [place] [address] OFFICE VISIT Date of Service: 11/21/23 MR#: [id number] Acct: [id number] Name: MARGAUX SANDERSON Rep #: [id number] : 1940 Provider: Dr. Mena miner MD Age/Sex: 83/M Location: [facility] [place] Status: Signed Intake Vital Signs 10/31/23 10:33 11/21/23 10:31 Height 5 ft 7 in 5 ft 7 in Weight: 122 lb 122 lb BMI 19.1 19.1 BP 139/80 H 145/70 H Blood Pressure Location Rt brachial Position Sitting Sitting Respiration 16 16 Pulse 84 70 Temp 99.9 F H 8.7 F L Temp Source Temporal Temporal Pulse Oximetry (%) 94 94 Oxygen Delivery Method room air room air Intake Visit Reasons: POST OP Chief Complaint: post op left lesion ear Is patient in pain?: No Allergies No Known Allergies Allergy (Verified 11/21/23 10:32) Medications ???Medication ???Instructions ???Recorded ???Confirmed ???Type aspirin 81 mg tablet,delayed 81 mg PO DAILY 01/27/16 11/21/23 History release terazosin 1 mg capsule 1 mg PO DAILY 04/18/19 11/21/23 History omeprazole 40 mg capsule,delayed 40 mg PO DAILY 05/25/19 11/21/23 History release amlodipine 10 mg tablet 10 mg PO DAILY #90 tabs 10/14/20 11/21/23 Rx atorvastatin 20 mg tablet 20 mg PO DAILY #90 tabs 10/14/20 11/21/23 Rx tamsulosin 0.4 mg capsule 0.4 mg PO DAILY 04/20/21 11/21/23 History budesonide 0.25 mg/2 mL suspension 0.25 mg inhalation BID 10/20/21 11/21/23 History for nebulization ipratropium 0.5 mg-albuterol 3 mg 3 ml inhalation BID 11/09/21 11/21/23 History (2.5 mg base)/3 mL nebulization soln albuterol sulfate 2.5 mg/0.5 mL 2.5 mg inhalation Q6H PRN 04/26/22 11/21/23 History solution for nebulization shortness of breath or wheezing calcium carbonate 600 mg-vitamin 1 cap PO BID #180 caps 07/05/22 11/21/23 Rx D3 5 mcg (200 unit) capsule (Calcium 600 + D(3)) multivitamin 1 tab PO DAILY 12/12/22 11/21/23 History levothyroxine 88 mcg tablet 88 mcg PO DAILY #90 tabs 04/28/23 11/21/23 Rx gabapentin 100 mg capsule 100 mg PO QDAY 10/04/23 11/21/23 History meloxicam 7.5 mg tablet 7.5 mg PO DAILY 10/04/23 11/21/23 History amoxicillin 875 mg-potassium 1 tab PO BID 10/05/23 11/21/23 History clavulanate 125 mg tablet fluticasone fur. 100 mcg-umeclid 1 inh inhalation DAILY 10/05/23 11/21/23 History 62.5 mcg-vilant 25 mcg inhalat.powder (Trelegy Ellipta) zoledronic acid 5 mg/100 mL in 1 ea .Route ONCE #100 mL 10/10/23 11/21/23 Rx mannitol 5 %-water intravenous piggybck finasteride 5 mg tablet 5 mg PO DAILY 11/15/23 11/21/23 History mirtazapine 7.5 mg tablet 7.5 mg PO QHS 11/15/23 11/21/23 History Have you fallen in the past year?: No Nurse's Note: pt here post op lesion ear Subjective Details: Mr. Sanderson comes in for recheck of his left ear where he had an excision. He denies any problems. He has been maintaining cleaning this with peroxide and applying Silvadene. Objective Details: The site is completely healed. There is no evidence of neoplasm. I applied some Aquaphor to the site and asked him to do the same every other day. The excision site had demonstrated chronic inflammation without malignancy on 10/05/2023. I will see him back as needed. He is encouraged to call with any problems. 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 [facility] Medical History (Updated 11/15/23 @ 13:19 by Kalli Barahona) Erosive esophagitis BPH (benign prostatic hyperplasia) Acute pancreatitis without necrosis or infection, unspecified Dehydration Fecal impaction Abdominal pain Nausea Right shoulder pain Vitamin D deficiency Lung nodule Osteoporosis Sebaceous cyst Postoperative primary hypothyroidism Wears glasses Wears dentures Arthritis High cholesterol Back pain Migraine headache Syncope Former smoker Hx of sinus bradycardia History of stress test Cardiology follow-up encounter Bradycardia Encounter for pre-operative cardiovascular clearance Nodule of left lobe of thyroid gland Mass of upper lobe of right lung Coronary artery calcification Essential hypertension Chronotropic incompetence Matute esophagus Diverticulosis Mixed hyperlipidemia Benign neoplasm of colon Thyroid nodule GERD (gastroesophageal reflux disease) Kidney stones COPD (chronic obstructive pulmonary disease) Asthma Seasonal allergies Surgical History History of thyroidectomy, total ( 10/2020) Hx of lithotripsy History of needle biopsy (09/16/20) History of colonoscopy with polypectomy History of esophagogastroduodenoscopy History of arthroscopy of knee History of cataract extraction Famil (more content not included)... Normal [facility] Plastic Surgery Visit Report on 10-31-2023 Plastic Surgery Visit Report [facility] Plastic [facility]ive Surgery [address], [address] [place], [place] [address] OFFICE VISIT Date of Service: 10/31/23 MR#: [id number] Acct: [id number] Name: MARGAUX SANDERSON Rep #: [id number] : 1940 Provider: Dr. Mena miner MD Age/Sex: 83/M Location: [facility] Status: Signed Intake Vital Signs 10/11/23 11:32 10/20/23 09:55 10/31/23 10:33 Height 5 ft 7 in 5 ft 7 in 5 ft 7 in Weight: 122 lb BMI 19.1 BP 139/80 H Position Sitting Respiration 16 Pulse 84 Temp 99.9 F H Temp Source Temporal Pulse Oximetry (%) 94 Oxygen Delivery Method room air Intake Visit Reasons: POST OP Chief Complaint: post op left lesion ear Accompanied by: Daughter Is patient in pain?: Yes (5/10 at times pain in ear) Allergies No Known Allergies Allergy (Verified 10/31/23 10:35) Medications ???Medication ???Instructions ???Recorded ???Confirmed ???Type aspirin 81 mg tablet,delayed 81 mg PO DAILY 01/27/16 10/31/23 History release terazosin 1 mg capsule 1 mg PO DAILY 04/18/19 10/31/23 History omeprazole 40 mg capsule,delayed 40 mg PO DAILY 05/25/19 10/31/23 History release amlodipine 10 mg tablet 10 mg PO DAILY #90 tabs 10/14/20 10/31/23 Rx atorvastatin 20 mg tablet 20 mg PO DAILY #90 tabs 10/14/20 10/31/23 Rx tamsulosin 0.4 mg capsule 0.4 mg PO DAILY 04/20/21 10/31/23 History budesonide 0.25 mg/2 mL suspension 0.25 mg inhalation BID 10/20/21 10/31/23 History for nebulization ipratropium 0.5 mg-albuterol 3 mg 3 ml inhalation BID 11/09/21 10/31/23 History (2.5 mg base)/3 mL nebulization soln albuterol sulfate 2.5 mg/0.5 mL 2.5 mg inhalation Q6H PRN 04/26/22 10/31/23 History solution for nebulization shortness of breath or wheezing calcium carbonate 600 mg-vitamin 1 cap PO BID #180 caps 07/05/22 10/31/23 Rx D3 5 mcg (200 unit) capsule (Calcium 600 + D(3)) multivitamin 1 tab PO DAILY 12/12/22 10/31/23 History levothyroxine 88 mcg tablet 88 mcg PO DAILY #90 tabs 04/28/23 10/31/23 Rx gabapentin 100 mg capsule 100 mg PO QDAY 10/04/23 10/31/23 History meloxicam 7.5 mg tablet 7.5 mg PO DAILY 10/04/23 10/31/23 History amoxicillin 875 mg-potassium 1 tab PO BID 10/05/23 10/31/23 History clavulanate 125 mg tablet fluticasone fur. 100 mcg-umeclid 1 inh inhalation DAILY 10/05/23 10/31/23 History 62.5 mcg-vilant 25 mcg inhalat.powder (Trelegy Ellipta) zoledronic acid 5 mg/100 mL in 1 ea .Route ONCE #100 mL 10/10/23 10/31/23 Rx mannitol 5 %-water intravenous piggybck Have you fallen in the past year?: No Nurse's Note: pt here with daughter no issues, at times has shooting pain at site Subjective Details: Tito comes in for recheck of the lesion removed from his left ear. He denies any problems. His daughter is cleaning the site daily with peroxide and applying Silvadene. Objective Details: A small scab remains in place of the left ear but it is significantly smaller than at his previous exam. There is no evidence of infection. Some of the scab was debrided. I have encouraged them to continue the current regimen as it appears to be successfully healing the site. 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 Delayed wound healing T14.8XXD [facility] Medical History Right shoulder pain Vitamin D deficiency Lung nodule Osteoporosis Sebaceous cyst Postoperative primary hypothyroidism Wears glasses Wears dentures Arthritis High cholesterol Back pain Migraine headache Syncope Former smoker Hx of sinus bradycardia History of stress test Cardiology follow-up encounter Bradycardia Encounter for pre-operative cardiovascular clearance Nodule of left lobe of thyroid gland Mass of upper lobe of right lung Coronary artery calcification Essential hypertension Chronotropic incompetence Matute esophagus Diverticulosis Mixed hyperlipidemia Benign neoplasm of colon Thyroid nodule GERD (gastroesophageal reflux disease) Kidney stones COPD (chronic obstructive pulmonary disease) Asthma Seasonal allergies Surgical History History of thyroidectomy, total ( 10/2020) Hx of lithotripsy History of needle biopsy (09/16/20) History of colonoscopy with polypectomy History of esophagogastroduodenoscopy History of arthroscopy of knee History of cataract extraction Family History Father Diabetes Hypertension CVA (cerebral vascular accident) Mother Thyroid disorder Arthritis Social History Smoking Status: Former smoker quit date: 03/27/12 pack-years: 50 how sudhakar (more content not included)... Normal [facility] Stress Reporton 10-26-2023 Stress Report [facility] [address] [place] [address] MR#: [id number] Acct: [id number] Name: MARGAUX SANDERSON Rep #: [id number] : 1940 83 From: Miriam Brooks MD Primary Care: Dr. Alexander Steiner MD Status: REG [facility] Referring Dr: Micah Jimenez MD Sex: M C Stress Test Report Date: 10/25/2023 Procedure: Pharmacologic stress nuclear imaging study Indications: Shortness of breath Consent: Per the patient Procedure: The patient underwent pharmacologic (Regadenoson) evaluation with a peak heart rate of 100 beats per minute (71%predicted maximal heart rate) and a peak blood pressure of 154/98 mmHg. The baseline ECG demonstrated normal sinus rhythm, occasional PVCs. EKG during lexiscan infusion revealed no significant ischemic changes. EKG post infusion revealed no significant ischemic changes [There were no cardiac dysrhythmias pretest, during pharmacologic infusion, or recovery]. [There was no complaint of chest discomfort during pharmacologic infusion or recovery]. The examination was discontinued secondary to completion of protocol. Impression: 1. Lexiscan stress test test is negative for Lexiscan infusion induced EKG changes of ischemia. 2. Lexiscan stress test test is negative for Lexiscan infusion induced chest pain. 3. Results of the nuclear portion of the test is as below Myocardial perfusion imaging study: Technique: The patient was injected with 11.7 millicuries of technetium 99m Cardiolite and subsequently rest SPECT Cardiolite nuclear imaging was obtained in the horizontal long, vertical long, and short axis views. The patient underwent pharmacologic [Regadenoson 0.4mg] evaluation. Please see above for details. The patient was injected with 33 millicuries of technetium 99m Cardiolite and subsequently stress SPECT Cardiolite nuclear imaging was obtained in the horizontal long, vertical long, and short axis views. A gated Cardiolite study at peak stress was obtained. Interpretation: Rest and stress SPECT Cardiolite nuclear imaging status post realignment, normalization, and attenuation correction demonstrate no evidence of significant ischemia or infarction. Gated images reveal no significant regional wall motion abnormalities. The reported LVEF is 57%. Impression: 1. There is no evidence of significant ischemia or infarction. 2. Estimated ejection fraction is 57%. This note was generated with Retewiation software. It may contain incorrect words, spelling, and punctuation that were not noted in checking the note before signing. 10/26/23 1430 Date Miriam Brooks MD CC: Dr. Miach Jimenez MD; Dr. Alexander Steiner MD Date Dictated: 10/26/231425 Date Transcribed: 10/26/231425 Inspector Rough Castings: NN Signed Normal [facility] Spine Cervical (Routine)on 0 10-21-2023 Spine Cervical (Routine) [facility] Imaging Services [address] [place] [address] [id number] Spine Cervical (Routine) MR#: [id number] Acct: [id number] Name: MARGAUX SANDERSON Rep #: [id number] : 1940 M 83 From: Tegan abad MD PCP: Dr. Alexander Steiner MD Status: REG CLI Study: Spine Cervical (Routine) Date of Exam: Exam# [id number] Ordering Dr: Lori Powers MD [id number] HISTORY: RADICULOPATHY, PAIN INTO R SHOULDER. TECHNIQUE: Multiplanar and multisequence MR images of the cervical spine were obtained without contrast. 276 images. COMPARISON: XR 09/04/2023. FINDINGS: VERTEBRAE: Vertebral body heights maintained. Mild degenerative endplate changes. No other significant bone marrow signal abnormality. VERTEBRAL ALIGNMENT: No anterior or posterior subluxation. SPINAL CORD: Cervical cord signal and morphology within normal limits. SOFT TISSUES: No prevertebral fluid collection. INTERVERTEBRAL DISCS: C2-3: No significant posterior disc protrusion or central canal stenosis. Uncovertebral and facet arthropathy with mild right foraminal narrowing. C3-4: Mild disc bulge with uncovertebral and facet arthropathy resulting in mild central canal stenosis foraminal narrowing. C4-5: Mild posterior disc bulge osteophyte complex with uncovertebral and facet arthropathy resulting in mild central canal stenosis and right foraminal narrowing. C5-6, C6-7: Mild posterior disc bulge osteophyte complex with uncovertebral and facet arthropathy resulting in minimal narrowing of thecal sac and mild bilateral foraminal narrowing. C7-T1: No significant posterior disc protrusion, central canal stenosis, or foraminal narrowing. MRI/Spine Cervical (Routine) IMPRESSION: Multilevel degenerative disc disease of the cervical spine resulting in mild spinal canal stenosis and right foraminal narrowing as above. Electronically Signed: Tegan Duarte MD at 9:58 EDT Reading Location ID and State: [facility] / [place] Tel , Service support , CC: Dr. Lori Powers MD; Dr. Alexander Steiner MD Inspector Rough Castings: Signed Normal [facility] CBC W/Diff, Automatedon 09-24 Absolute Lymph 0.77 X10 3/uL Low 0.83-4.51 [facility] Comment on above: Order Comment: DR USHA SU ORDERED VIT DDR JATIN ORDERED CMP, CBCD Performed By: #### L 500.4050, L100.0100, L506.1000 ####[facility] [address] [place], [place], [address] Absolute Neut 6.0 X10 3/uL Normal 2.0-7.7 [facility] Comment on above: Order Comment: DR USHA SU ORDERED VIT DDR JATIN ORDERED CMP, CBCD Performed By: #### L 500.4050, L100.0100, L506.1000 ####[facility] [address] [place], [address] Basophils/100 WBC (Bld) 1.0 % Normal 0-1 [facility] Comment on above: Order Comment: DR USHA SU ORDERED VIT DDR JATIN ORDERED CMP, CBCD Performed By: #### L 500.4050, L100.0100, L506.1000 ####[facility] [address] [place], [address] Eosinophils/100 WBC (Bld) 1.0 % Normal 0-5 [facility] Comment on above: Order Comment: DR USHA SU ORDERED VIT DDR JATIN ORDERED CMP, CBCD Performed By: #### L 500.4050, L100.0100, L506.1000 ####[facility] [address] [place], [address] Erythrocyte distribution width (RBC) [Ratio] 16.2 % High 11.6-14.6 [facility] Comment on above: Order Comment: DR USHA SU ORDERED VIT DDR JATIN ORDERED CMP, CBCD Performed By: #### L 500.4050, L100.0100, L506.1000 ####[facility] [address] [place], [address] Hematocrit (Bld) [Volume fraction] 42.5 % Normal 40-54 [facility] Comment on above: Order Comment: DR USHA SU ORDERED VIT DDR JATIN ORDERED CMP, CBCD Performed By: #### L 500.4050, L100.0100, L506.1000 ####[facility] [address] [place], [address] Hemoglobin (Bld) [Mass/Vol] 13.4 g/dL Normal 13.0-16.5 [facility] Comment on above: Order Comment: DR USHA SU ORDERED VIT DDR JATIN ORDERED CMP, CBCD Performed By: #### L 500.4050, L100.0100, L506.1000 ####[facility] [address] [place], [address] IG% 0.900 Normal 0.0-0.9 [facility] Comment on above: Order Comment: DR USHA SU ORDERED VIT DDR JATIN ORDERED CMP, CBCD Result Comment: IG% - Immature Granulocytes (promyelocytes, myelocytes and metamyelocytes) > 1% indicates that a LEFT SHIFT is Present. Performed By: #### L 500.4050, L100.0100, L506.1000 ####[facility] [address] [place], [address] Lymphocytes/100 WBC (Bld) 9.9 % Low 19-41 [facility] Comment on above: Order Comment: DR USHA SU ORDERED VIT DDR JATIN ORDERED CMP, CBCD Performed By: #### L 500.4050, L100.0100, L506.1000 ####[facility] [address] [place], [address] MCH (RBC) [Entitic mass] 27.0 pg Normal 27.0-32.0 [facility] Comment on above: Order Comment: DR USHA SU ORDERED VIT DDR JATIN ORDERED CMP, CBCD Performed By: #### L 500.4050, L100.0100, L506.1000 ####[facility] [address] [place], [address] MCHC (RBC) [Mass/Vol] 31.5 g/dL Low 32-36 [facility] Comment on above: Order Comment: DR USHA SU ORDERED VIT DDR JATIN ORDERED CMP, CBCD Performed By: #### L 500.4050, L100.0100, L506.1000 ####[facility] [address] [place], [address] MCV (RBC) [Entitic vol] 85.5 fL Normal 80-94 [facility] Comment on above: Order Comment: DR USHA SU ORDERED VIT DDR JATIN ORDERED CMP, CBCD Performed By: #### L 500.4050, L100.0100, L506.1000 ####[facility] [address] [place], [address] Monocytes/100 WBC (Bld) 10.3 % High 0-10 [facility] Comment on above: Order Comment: DR USHA SU ORDERED VIT DDR JATIN ORDERED CMP, CBCD Performed By: #### L 500.4050, L100.0100, L506.1000 ####[facility] [address] [place], [address] Neutrophils/100 WBC (Bld) 76.9 % High 47-70 [facility] Comment on above: Order Comment: DR USHA SU ORDERED VIT DDR JATIN ORDERED CMP, CBCD Performed By: #### L 500.4050, L100.0100, L506.1000 ####[facility] [address] [place], [address] Nucleated RBC (Bld) [#/Vol] 0 10*3/uL Normal 0-5 [facility] Comment on above: Order Comment: DR USHA SU ORDERED VIT DDR JATIN ORDERED CMP, CBCD Performed By: #### L 500.4050, L100.0100, L506.1000 ####[facility] [address] [place], [address] Platelet mean volume (Bld) [Entitic vol] 9.8 fL Normal 6.2-12.0 [facility] Comment on above: Order Comment: DR USHA SU ORDERED VIT DDR JATIN ORDERED CMP, CBCD Performed By: #### L 500.4050, L100.0100, L506.1000 ####[facility] [address] [place], [address] Platelets (Bld) [#/Vol] 301 10*3/uL Normal 150-450 [facility] Comment on above: Order Comment: DR USHA SU ORDERED VIT DDR JATIN ORDERED CMP, CBCD Performed By: #### L 500.4050, L100.0100, L506.1000 ####[facility] [address] [place], [address] RBC (Bld) [#/Vol] 4.97 10*6/uL Normal 4.6-6.2 [facility] Comment on above: Order Comment: DR USHA SU ORDERED VIT DDR JATIN ORDERED CMP, CBCD Performed By: #### L 500.4050, L100.0100, L506.1000 ####[facility] [address] [place], [address] RDW SD 50.2 fl High 35.1-43.9 [facility] Comment on above: Order Comment: DR USHA SU ORDERED VIT DDR JATIN ORDERED CMP, CBCD Performed By: #### L 500.4050, L100.0100, L506.1000 ####[facility] [address] [place], [address] WBC (Bld) [#/Vol] 7.8 10*3/uL Normal 4.4-11.0 [facility] Comment on above: Order Comment: DR USHA SU ORDERED VIT DDR JATIN ORDERED CMP, CBCD Performed By: #### L 500.4050, L100.0100, L506.1000 ####[facility] [address] [place], [address] Comprehensive Metabolic Prof [facility] 10-11-2023 Albumin [Mass/Vol] 3.3 g/dL Normal 3.2-5.0 [facility] Comment on above: Order Comment: DR USHA SU ORDERED VIT DDR JATIN ORDERED CMP, CBCD Performed By: #### L 500.4050, L100.0100, L506.1000 ####[facility] [address] [place], [address] Albumin/Globulin [Mass ratio] 0.8 {ratio} Low 0.9-2.4 [facility] Comment on above: Order Comment: DR USHA SU ORDERED VIT DDR JATIN ORDERED CMP, CBCD Performed By: #### L 500.4050, L100.0100, L506.1000 ####[facility] [address] [place], [address] ALK P 137 U/L High 45-117 [facility] Comment on above: Order Comment: DR USHA SU ORDERED VIT DDR JATIN ORDERED CMP, CBCD Performed By: #### L 500.4050, L100.0100, L506.1000 ####[facility] [address] [place], [address] ALT [Catalytic activity/Vol] 19 U/L Normal 16-61 [facility] Comment on above: Order Comment: DR USHA SU ORDERED VIT DDR JATIN ORDERED CMP, CBCD Performed By: #### L 500.4050, L100.0100, L506.1000 ####[facility] [address] [place], [address] AST [Catalytic activity/Vol] 15 U/L Normal 15-37 [facility] Comment on above: Order Comment: DR USHA SU ORDERED VIT DDR JATIN ORDERED CMP, CBCD Performed By: #### L 500.4050, L100.0100, L506.1000 ####[facility] [address] [place], [address] Bilirubin [Mass/Vol] 0.40 mg/dL Normal 0.20-1.00 [facility] Comment on above: Order Comment: DR USHA SU ORDERED VIT DDR JATIN ORDERED CMP, CBCD Result Comment: For patients on eltrombopag therapy, use of Dimension [place] TBIL is not recommended. Performed By: #### L 500.4050, L100.0100, L506.1000 ####[facility] [address] [place], [address] BUN/CRE 24.4 RATIO High 10-20 [facility] Comment on above: Order Comment: DR USHA SU ORDERED VIT DDR JATIN ORDERED CMP, CBCD Performed By: #### L 500.4050, L100.0100, L506.1000 ####[facility] [address] [place], [address] CA,Total 9.0 mg/dL Normal 8.5-10.1 [facility] Comment on above: Order Comment: DR USHA SU ORDERED VIT DDR JATIN ORDERED CMP, CBCD Performed By: #### L 500.4050, L100.0100, L506.1000 ####[facility] [address] [place], [address] Chloride [Moles/Vol] 110 mmol/L High 98-107 [facility] Comment on above: Order Comment: DR USHA SU ORDERED VIT DDR JATIN ORDERED CMP, CBCD Performed By: #### L 500.4050, L100.0100, L506.1000 ####[facility] [address] [place], [address] CO2 [Moles/Vol] 23.0 mmol/L Normal 21.0-32.0 [facility] Comment on above: Order Comment: DR USHA SU ORDERED VIT DDR JATIN ORDERED CMP, CBCD Performed By: #### L 500.4050, L100.0100, L506.1000 ####[facility] [address] [place], [address] Creatinine [Mass/Vol] 0.82 mg/dL Normal 0.70-1.30 [facility] Comment on above: Order Comment: DR USHA SU ORDERED VIT DDR JATIN ORDERED CMP, CBCD Result Comment: The validity of the calculated GFR GFRAA in patients over 70 years has not been determined. Clinical correlation is essential. Performed By: #### L 500.4050, L100.0100, L506.1000 ####[facility] [address] [place], [address] ECRCL 54.85 ml/min Normal [facility] Comment on above: Order Comment: DR USHA SU ORDERED VIT DDR JATIN ORDERED CMP, CBCD Performed By: #### L 500.4050, L100.0100, L506.1000 ####[facility] [address] [place], [address] EST GFR - AA 116 mL/min Normal >60 [facility] Comment on above: Order Comment: DR USHA SU ORDERED VIT DDR JATIN ORDERED CMP, CBCD Result Comment: Afri can Japanese GFR Calc Performed By: #### L 500.4050, L100.0100, L506.1000 ####[facility] [address] [place], [address] GAP 8 Normal 5-15 [facility] Comment on above: Order Comment: DR USHA SU ORDERED VIT DDR JATIN ORDERED CMP, CBCD Performed By: #### L 500.4050, L100.0100, L506.1000 ####[facility] [address] [place], [address] GFR/1.73 sq M.predicted among non-blacks MDRD (S/P/Bld) [Vol rate/Area] 96 mL/min/{1.73_m2} Normal >60 [facility] Comment on above: Order Comment: DR USHA SU ORDERED VIT DDR JATIN ORDERED CMP, CBCD Result Comment: Non- GFR Calc Performed By: #### L 500.4050, L100.0100, L506.1000 ####[facility] [address] [place], [address] Globulin (S) [Mass/Vol] 4.4 g/dL High 2.2-4.2 [facility] Comment on above: Order Comment: DR USHA SU ORDERED VIT DDR JATIN ORDERED CMP, CBCD Performed By: #### L 500.4050, L100.0100, L506.1000 ####[facility] [address] [place], [address] Glucose [Mass/Vol] 103 mg/dL Normal 74-106 [facility] Comment on above: Order Comment: DR USHA SU ORDERED VIT DDR JATIN ORDERED CMP, CBCD Result Comment: Fast ing Glucose result from 100 to 125 mg/dL suggests IMPAIRED HOMEOSTASIS per A.D.A. criteria. Performed By: #### L 500.4050, L100.0100, L506.1000 ####[facility] [address] [place], [address] Potassium [Moles/Vol] 3.9 mmol/L Normal 3.5-5.1 [facility] Comment on above: Order Comment: DR USHA SU ORDERED VIT DDR JATIN ORDERED CMP, CBCD Performed By: #### L 500.4050, L100.0100, L506.1000 ####[facility] [address] [place], [address] Sodium [Moles/Vol] 141 mmol/L Normal 136-145 [facility] Comment on above: Order Comment: DR USHA SU ORDERED VIT DDR JATIN ORDERED CMP, CBCD Performed By: #### L 500.4050, L100.0100, L506.1000 ####[facility] [address] [place], [address] T PROT 7.7 g/dL Normal 6.4-8.2 [facility] Comment on above: Order Comment: DR USHA SU ORDERED VIT DDR JATIN ORDERED CMP, CBCD Performed By: #### L 500.4050, L100.0100, L506.1000 ####[facility] [address] [place], [address] Urea nitrogen [Mass/Vol] 20 mg/dL High 7-18 [facility] Comment on above: Order Comment: DR USHA SU ORDERED VIT DDR JATIN ORDERED CMP, CBCD Performed By: #### L 500.4050, L100.0100, L506.1000 ####[facility] [address] [place], [address] Plastic Surgery Visit Report on 10-11-2023 Plastic Surgery Visit Report [facility] Plastic Reconstructive Surgery [address], [address] [place] [address] OFFICE VISIT Date of Service: 10/11/23 MR#: [id number] Acct: [id number] Name: MARGAUX SANDERSON Rep #: [id number] : 1940 Provider: Dr. Mena miner MD Age/Sex: 83/M Location: [facility] Status: Signed Intake Vital Signs 10/04/23 14:30 10/10/23 09:22 10/11/23 11:32 Height 5 ft 7 in 5 ft 7 in 5 ft 7 in Weight: 121 lb 4 oz BMI 19.0 BP 108/61 Blood Pressure Location Lt brachial Position Sitting Respiration 16 Pulse 80 Temp 98.0 F Temp Source Temporal Pulse Oximetry (%) 95 Oxygen Delivery Method room air Intake Visit Reasons: post op left lesion ear Chief Complaint: post op left lesion ear Is patient in pain?: Yes (07/04- sensitive at side) Allergies No Known Allergies Allergy (Verified 10/11/23 11:34) Medications ???Medication ???Instructions ???Recorded ???Confirmed ???Type aspirin 81 mg tablet,delayed 81 mg PO DAILY 01/27/16 10/11/23 History release terazosin 1 mg capsule 1 mg PO DAILY 04/18/19 10/11/23 History omeprazole 40 mg capsule,delayed 40 mg PO DAILY 05/25/19 10/11/23 History release amlodipine 10 mg tablet 10 mg PO DAILY #90 tabs 10/14/20 10/11/23 Rx atorvastatin 20 mg tablet 20 mg PO DAILY #90 tabs 10/14/20 10/11/23 Rx tamsulosin 0.4 mg capsule 0.4 mg PO DAILY 04/20/21 10/11/23 History budesonide 0.25 mg/2 mL suspension 0.25 mg inhalation BID 10/20/21 10/11/23 History for nebulization ipratropium 0.5 mg-albuterol 3 mg 3 ml inhalation BID 11/09/21 10/11/23 History (2.5 mg base)/3 mL nebulization soln albuterol sulfate 2.5 mg/0.5 mL 2.5 mg inhalation Q6H PRN 04/26/22 10/11/23 History solution for nebulization shortness of breath or wheezing calcium carbonate 600 mg-vitamin 1 cap PO BID #180 caps 07/05/22 10/11/23 Rx D3 5 mcg (200 unit) capsule (Calcium 600 + D(3)) multivitamin 1 tab PO DAILY 12/12/22 10/11/23 History levothyroxine 88 mcg tablet 88 mcg PO DAILY #90 tabs 04/28/23 10/11/23 Rx gabapentin 100 mg capsule 100 mg PO QDAY 10/04/23 10/11/23 History meloxicam 7.5 mg tablet 7.5 mg PO DAILY 10/04/23 10/11/23 History amoxicillin 875 mg-potassium 1 tab PO BID 10/05/23 10/11/23 History clavulanate 125 mg tablet fluticasone fur. 100 mcg-umeclid 1 inh inhalation DAILY 10/05/23 10/11/23 History 62.5 mcg-vilant 25 mcg inhalat.powder (Trelegy Ellipta) zoledronic acid 5 mg/100 mL in 1 ea .Route ONCE #100 mL 10/10/23 10/11/23 Rx mannitol 5 %-water intravenous piggybck Have you fallen in the past year?: No Nurse's Note: pt here with daughter for post op ear lesion Subjective Details: Mr. Sanderson comes in today for recheck of the left ear excision. He states he was unable to sleep elevated but has avoided laying on the side. He has been applying the Silvadene daily. His daughter states the area is less tender than it was prior to surgery. Objective Details: The sutures are still intact. There is a moderate amount of Silvadene on the area which I cleaned up with a Q-tip and peroxide. I asked him to put a cottonball in his ear and to shower allowing the warm water to clean the area daily. He may reduce the Silvadene application to q. OD. The pathology was reviewed with him which fortunately did not demonstrate evidence of malignancy however noted there was extensive ulceration and inflammation. It also made note of actinic keratosis and solar elastosis. I counseled the patient that this area bears surveillance to ensure against recurrence. 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 I will see him back in 2 weeks for recheck of the area. I told him his healing will be slow due to the thin soft tissue envelope of the cartilaginous portion of the ear. 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 PFSH Medical History Right shoulder pain Vitamin D deficiency Lung nodule Osteoporosis Sebaceous cyst Postoperative primary hypothyroidism Wears glasses Wears dentures Arthritis High cholesterol Back pain Migraine headache Syncope Former smoker Hx of sinus bradycardia History of stress test Cardiology follow-up encounter Bradycardia Encounter for pre-operative cardiovascular clearance Nodule of left lobe of thyroid gland Mass of upper lobe of right lung Coronary artery calcification Essential hypertension Chronotropic incompetence Matute esophagus Diverticulosis Mixed hyperlipidemia Benign neoplasm of colon Thyroid nodule GERD (gastroesophageal reflux disease) Kidney stones COPD (chronic obstructive pulmonary disease) Asthma Seasonal allergies Surgical His (more content not included)... Normal [facility] Vitamin D,25 Hydroxyon 10-10 Vitamin D 25-OH 30.9 ng/mL Normal [facility] Comment on above: Order Comment: DR USHA SU ORDERED VIT DDR JATIN ORDERED CMP, CBCD Result Comment: Snow min D 25(OH) Status Range Deficiency <20 ng/mL (50nmol/L) Insufficiency 20 - 30 ng/mL (50 - 75 nmol/L) Sufficiency 30 - 100 ng/mL (75 - 250 nmol/L) Toxicity >100 ng/mL (>250 nmol/L) Performed By: #### L 500.4050, L100.0100, L506.1000 ####[facility] [address] [place], [address] Endocrinology Visit Reporton 10-10-2023 Endocrinology Visit Report [facility] [address] [place] [address]. [address] [place] [address] OFFICE VISIT Date of Service: 10/10/23 MR#: [id number] Acct: [id number] Name: JERODMARGAUX CLAIRE Rep #: [id number] : 1940 Provider: Celia Lopez Age/Sex: 83/M Location: [facility] [place] Status: Signed Intake Vital Signs 10/05/23 11:35 10/10/23 09:22 Height 5 ft 7 in 5 ft 7 in Weight: 121 lb BMI 18.9 BP 119/64 Blood Pressure Location Lt brachial Position Sitting Pulse 71 Pulse Source Monitor Pulse Oximetry (%) 93 Oxygen Delivery Method room air Intake Visit Reasons: 1 Y FU Chief Complaint: Osteoporosis Cargo Agent Required: No Accompanied by: Self Is patient in pain?: No Allergies No Known Allergies Allergy (Verified 10/10/23 09:24) Medications ???Medication ???Instructions ???Recorded ???Confirmed ???Type aspirin 81 mg tablet,delayed 81 mg PO DAILY 01/27/16 10/10/23 History release terazosin 1 mg capsule 1 mg PO DAILY 04/18/19 10/10/23 History omeprazole 40 mg capsule,delayed 40 mg PO DAILY 05/25/19 10/10/23 History release amlodipine 10 mg tablet 10 mg PO DAILY #90 tabs 10/14/20 10/10/23 Rx atorvastatin 20 mg tablet 20 mg PO DAILY #90 tabs 10/14/20 10/10/23 Rx tamsulosin 0.4 mg capsule 0.4 mg PO DAILY 04/20/21 10/10/23 History budesonide 0.25 mg/2 mL suspension 0.25 mg inhalation BID 10/20/21 10/10/23 History for nebulization ipratropium 0.5 mg-albuterol 3 mg 3 ml inhalation BID 11/09/21 10/10/23 History (2.5 mg base)/3 mL nebulization soln albuterol sulfate 2.5 mg/0.5 mL 2.5 mg inhalation Q6H PRN 04/26/22 10/10/23 History solution for nebulization shortness of breath or wheezing calcium carbonate 600 mg-vitamin 1 cap PO BID #180 caps 07/05/22 10/10/23 Rx D3 5 mcg (200 unit) capsule (Calcium 600 + D(3)) multivitamin 1 tab PO DAILY 12/12/22 10/10/23 History levothyroxine 88 mcg tablet 88 mcg PO DAILY #90 tabs 04/28/23 10/10/23 Rx gabapentin 100 mg capsule 100 mg PO QDAY 10/04/23 10/10/23 History meloxicam 7.5 mg tablet 7.5 mg PO DAILY 10/04/23 10/10/23 History amoxicillin 875 mg-potassium 1 tab PO BID 10/05/23 10/10/23 History clavulanate 125 mg tablet fluticasone fur. 100 mcg-umeclid 1 inh inhalation DAILY 10/05/23 10/10/23 History 62.5 mcg-vilant 25 mcg inhalat.powder (Trelegy Ellipta) zoledronic acid 5 mg/100 mL in 1 ea .Route ONCE #100 mL 10/10/23 10/10/23 Rx mannitol 5 %-water intravenous piggybck Have you fallen in the past year?: No PFSH Medical History Right shoulder pain Vitamin D deficiency Lung nodule Osteoporosis Sebaceous cyst Postoperative primary hypothyroidism Wears glasses Wears dentures Arthritis High cholesterol Back pain Migraine headache Syncope Former smoker Hx of sinus bradycardia History of stress test Cardiology follow-up encounter Bradycardia Encounter for pre-operative cardiovascular clearance Nodule of left lobe of thyroid gland Mass of upper lobe of right lung Coronary artery calcification Essential hypertension Chronotropic incompetence Matute esophagus Diverticulosis Mixed hyperlipidemia Benign neoplasm of colon Thyroid nodule GERD (gastroesophageal reflux disease) Kidney stones COPD (chronic obstructive pulmonary disease) Asthma Seasonal allergies Surgical History History of thyroidectomy, total ( 10/2020) Hx of lithotripsy History of needle biopsy (09/16/20) History of colonoscopy with polypectomy History of esophagogastroduodenoscopy History of arthroscopy of knee History of cataract extraction Family History Father Diabetes Hypertension CVA (cerebral vascular accident) Mother Thyroid disorder Arthritis Social History Smoking Status: Former smoker quit date: 03/27/12 pack-years: 50 how long ago did patient quit smoking: quit 12-14 years ago alcohol intake: never substance use type: does not use what type of physical activity do you participate in: none additional social history: pt denies vaping, denies marijuana use, denies edibles, denies alcohol use, uses baby aspirin daily uses ibuprofen as needed HPI HPI Chief Complaint: Osteoporosis Details: MARGAUX SANDERSON, is a 83 M who presents to the office today for follow up. He has received Reclast 05/16, 08/14, 09/15, and 09/16. He tolerates it well. No falls or fractures since last year. 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 He has hypothyroidism and TSH is normal. Exam Const General: cooperative, healthy appearing, comfortable, no acute dis (more content not included)... Normal [facility] Discharge Instructionon 09-24 Discharge Instruction [facility] Medical Records Department [address] [place] [address] Instructions for Home/Discharge Instructions 10/05/23 1407 MR#: [id number] Acct: [id number] Name: MARGAUX SANDERSON Rep #: [id number] : 1940 83 From: Mena Valle MD PCP: Dr. Alexander Steiner MD Status:REG [facility] Discharge Instructions Dressing / Incision Additional Dressing/Incision Instructions:: Keep your head elevated (recliner position) at night for the next 4 nights. May shower over the site but do not scrub. Apply the Silvadene cream once a day after showering. Follow Up Care Please Follow Up With: Mena Valle MD When: In 1 week Test Results: Test results from this visit will be discussed in further detail at your follow-up appointment, if applicable. Discharge Plan Admission Attending Provider: Mena Valle Primary Care Provider: Alexander Steiner Chi Instructions Print Language: Citizen Of [place] Discharge Orders/Prescriptions Prescriptions: No Action terazosin 1 mg capsule 1 mg PO DAILY albuterol sulfate 2.5 mg/0.5 mL solution for nebulization 2.5 mg inhalation Q6H PRN (Reason: shortness of breath or wheezing) amlodipine 10 mg tablet 10 mg PO DAILY Qty: 90 3RF atorvastatin 20 mg tablet 20 mg PO DAILY Qty: 90 2RF tamsulosin 0.4 mg capsule 0.4 mg PO DAILY ipratropium-albuterol 0.5 mg-3 mg(2.5 mg base)/3 mL solution for nebulization 3 ml inhalation BID budesonide 0.25 mg/2 mL suspension for nebulization 0.25 mg inhalation BID Calcium 600 + D(3) 600 mg-5 mcg (200 unit) capsule 1 cap PO BID Qty: 180 1RF zoledronic ubrv-eezexcib-hugxh 5 mg/100 mL piggyback 1 ea .Route ONCE Qty: 100 0RF Patient Comments: once a year, last summer Rx Instructions: infuse over 20 minutes multivitamin Tablet 1 tab PO DAILY meloxicam 7.5 mg tablet 7.5 mg PO DAILY Patient Comments: upset stomach, took a few days off gabapentin 100 mg capsule 100 mg PO QDAY aspirin 81 MG tablet,delayed release (DR/EC) 81 mg PO DAILY Patient Comments: INSTRUCTED TO CALL ABOUT STOPPING PRIOR TO PROCEDURE omeprazole 40 MG capsule,delayed release(DR/EC) 40 mg PO DAILY Trelegy Ellipta 100-62.5-25 mcg blister with device 1 inh inhalation DAILY amoxicillin-pot clavulanate 875-125 mg tablet 1 tab PO BID levothyroxine 88 mcg tablet 88 mcg PO DAILY Qty: 90 1RF Referrals / Follow Up: Alexander Steiner Chi, MD [Primary Care Provider] - Disposition Disposition (needs filled in before D/C Order can be placed): Home, Self Care 10/05/23 1410 Mena Valle MD CC: Dr. Alexander Steiner MD Signed Normal [facility] Operative Reporton 4 Operative Report [facility] Medical Records Department [address] [place] [address] Operative Report 10/05/23 1410 MR#: [id number] Acct: [id number] Name: MARGAUX SANDERSON Rep #: [id number] : 1940 83 From: Mena Valle MD PCP: Dr. Alexander Steiner MD Status:[facility] Location: [place] [address] 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 He presents for excision of the neoplasm with submission for pathologic evaluation. He is aware of the potential need for further surgery depending on the resulting pathology. The patient is brought to the operating room and placed on the operating room table in the supine position. The left ear is prepped and draped in the usual sterile fashion. 1% Xylocaine buffered with sodium bicarb is then injected in the periphery and beneath the neoplasm. The site is then excised down to cartilage and passed off the operative field to be sent to pathology. The cartilage prominence is shaved anteriorly. The surrounding skin is then undermined in a perichondrial plane and advanced over the site. This is approximated with interrupted chromic suture. Silvadene is applied to the wound. He tolerated the procedure well was taken to the recovery area in an awake and stable condition. Needle and sponge counts are correct. Complications None Admit VTE Documentation VTE Mechan Device Prophylaxis: None Reason prophylaxis not ordered:: Treatment Not Indicated 10/05/23 1414 Cosigner Signature (if applicable): CC: Dr. Alexander Steiner MD; Dr. Mena Valle MD Signed Normal [facility] Surgery Specimen Level [place] 10-05-2023 Surgery Specimen Level IV Patient Age/Sex Location Account Attending Physician MARGAUX SADNERSON 83/M [facility] [id number] Dr. Mena Valle MD Specimen: [id number] Received: 10/05/23 Status: EMELY Doshi Num: [id number] Spec Type: Lesion Subm Dr: Dr. Mena Valle MD HEADER OPERATION: Excision lesion left ear, 2.0cm PRE-OP DIAGNOSIS: 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 TISSUE SUBMITTED: Lesion left ear MICROSCOPIC DIAGNOSIS Left ear lesion, excision: Extensive ulceration and associated acute and chronic inflammation. Mild actinic keratosis and extensive solar elastosis. Negative for malignancy. See comment. / 10/09/2023 COMMENT Clinical correlation and appropriate follow up are necessary. MICROSCOPIC DESCRIPTION Slides are reviewed. GROSS DESCRIPTION Received in fixative is one container labeled with the patient's name and designated Lesion left ear. The specimen consists of multiple pieces of skin and soft tissue measuring in aggregate 2.5 x 2.0 x 0.3cm. Largest piece is bisected. The entire specimen is submitted in one cassette. [facility] 10/06/2023 TC:5 CPT:04234 Patient Age/Sex Location Account Attending Physician JERODMARGAUX 83/M [facility] [id number] Dr. Mena Valle MD Signed (signature on file) Dr. Kevin Valencia MD 10/09/23 1257 Normal [facility] Comment on above: Performed By: #### P SUIV ####[facility] [address] [place], [place], [address] Plastic Surgery Visit Report on 10-04-2023 Plastic Surgery Visit Report [facility] Plastic Reconstructive Surgery [address], [address] [place] [address] OFFICE VISIT Date of Service: 10/04/23 MR#: [id number] Acct: [id number] Name: JORDONBLADEMARGAUX Rep #: [id number] : 1940 Provider: Dr. Mena miner MD Age/Sex: 83/M Location: [facility] Status: Signed Intake Vital Signs 07/27/23 10:00 10/04/23 14:30 Height 5 ft 7 in 5 ft 7 in Weight: 123 lb 8 oz BMI 19.3 BP 107/63 Blood Pressure Location Lt brachial Position Sitting Respiration 16 Pulse 67 Temp 98.2 F Temp Source Temporal Pulse Oximetry (%) 92 Oxygen Delivery Method room air Intake Visit Reasons: BASAL CELL CA LT EAR Chief Complaint: basal cell left ear Accompanied by: Daughter Is patient in pain?: No Allergies No Known Allergies Allergy (Verified 10/04/23 14:31) Medications ???Medication ???Instructions ???Recorded ???Confirmed ???Type aspirin 81 mg tablet,delayed 81 mg PO DAILY 01/27/16 10/04/23 History release terazosin 1 mg capsule 1 mg PO DAILY 04/18/19 10/04/23 History omeprazole 40 mg capsule,delayed 40 mg PO DAILY 05/25/19 10/04/23 History release amlodipine 10 mg tablet 10 mg PO DAILY #90 tabs 10/14/20 10/04/23 Rx atorvastatin 20 mg tablet 20 mg PO DAILY #90 tabs 10/14/20 10/04/23 Rx tamsulosin 0.4 mg capsule 0.4 mg PO DAILY 04/20/21 10/04/23 History budesonide 0.25 mg/2 mL suspension 0.25 mg inhalation BID 10/20/21 10/04/23 History for nebulization ipratropium 0.5 mg-albuterol 3 mg 3 ml inhalation BID 11/09/21 10/04/23 History (2.5 mg base)/3 mL nebulization soln albuterol sulfate 2.5 mg/0.5 mL 2.5 mg inhalation Q6H PRN 04/26/22 10/04/23 History solution for nebulization calcium carbonate 600 mg-vitamin 1 cap PO BID #180 caps 07/05/22 10/04/23 Rx D3 5 mcg (200 unit) capsule (Calcium 600 + D(3)) zoledronic acid 5 mg/100 mL in 1 ea .Route ONCE #100 mL 07/05/22 08/25/23 Rx mannitol 5 %-water intravenous piggybck multivitamin 1 tab PO DAILY 12/12/22 10/04/23 History levothyroxine 88 mcg tablet 88 mcg PO DAILY #90 tabs 04/28/23 10/04/23 Rx gabapentin 100 mg capsule 100 mg PO QDAY 10/04/23 10/04/23 History meloxicam 7.5 mg tablet 7.5 mg PO DAILY 10/04/23 10/04/23 History Have you fallen in the past year?: No Nurse's Note: pt here with daughter , basal celll on left ear [facility] Medical History Right shoulder pain Vitamin D deficiency Lung nodule Osteoporosis Sebaceous cyst Postoperative primary hypothyroidism Wears glasses Wears dentures Arthritis High cholesterol Back pain Migraine headache Syncope Former smoker Hx of sinus bradycardia History of stress test Cardiology follow-up encounter Bradycardia Encounter for pre-operative cardiovascular clearance Nodule of left lobe of thyroid gland Mass of upper lobe of right lung Coronary artery calcification Essential hypertension Chronotropic incompetence Matute esophagus Diverticulosis Mixed hyperlipidemia Benign neoplasm of colon Thyroid nodule GERD (gastroesophageal reflux disease) Kidney stones COPD (chronic obstructive pulmonary disease) Asthma Seasonal allergies Surgical History History of thyroidectomy, total ( 10/2020) Hx of lithotripsy History of needle biopsy (09/16/20) History of colonoscopy with polypectomy History of esophagogastroduodenoscopy History of arthroscopy of knee History of cataract extraction Family History (Updated 10/04/23 @ 14:29 by Mary Paniagua) Father Diabetes Hypertension CVA (cerebral vascular accident) Mother Thyroid disorder Arthritis Social History (Updated 10/04/23 @ 14:30 by Mary Paniagua) Smoking Status: Former smoker quit date: 03/27/12 pack-years: 50 how long ago did patient quit smoking: quit 12-14 years ago alcohol intake: never substance use type: does not use what type of physical activity do you participate in: none additional social history: pt denies vaping, denies marijuana use, denies edibles, denies alcohol use, uses baby aspirin daily uses ibuprofen as needed HPI BASAL CELL CA LT EAR Details: Mr. Sanderson presents with a lesion on his left ear which has been there for approximately 1 year. His daughter has tried to squeeze this in the past without return of significant amount of fluid or resolution. He states that it is tender to touch. He denies previous history of skin cancer. ROS General General: Yes good health; No fatigue, fever(s) or weight loss HENMT HENMT: No rhinitis, sore throat/mouth sore, nasal congestion, contacts or glaucoma Endo Endocrine: Yes thyroid disease; No polydipsia, heat intolerance, cold intolerance, hepatitis (more content not included)... Normal [facility] Abdomen/Pelvis WITH Contrast on 10-03-2023 Abdomen/Pelvis WITH Contrast [facility] [address] [place] [address] Abdomen/Pelvis WITH Contrast MR#: [id number] Acct: [id number] Name: MARGAUX SANDERSON Rep #: [id number] : 1940 M 83 From: Piyush hodge MD PCP: Dr. Alexander Steiner MD Status: REG CLI Study: Abdomen/Pelvis WITH Contrast Date of Exam: 12/18 Exam# [id number] Ordering Dr: Alexander Steiner MD [id number] STUDY: CT ABDOMEN AND PELVIS WITH CONTRAST REASON FOR EXAM: Male, 83 years old. ABD PAIN. RADIATION DOSAGE (If Supplied By Facility): CTDIvol = ( 11.95 ) mGy, DLP = ( 353.94 ) mGycm TECHNIQUE: Transaxial images were obtained from the dome of the diaphragm to the symphysis pubis with oral contrast. Oral and amp; IV Gastrografin and amp; 75mL Isovue-370 was administered. Sagittal and coronal images were reconstructed. Individualized dose optimization techniques were used for this CT. COMPARISON: Comparison is made with prior study dated May 25, 2019. FINDINGS: The visualized lung bases are unremarkable. The visualized portions of the heart are within normal limits. Normal liver. Normal gallbladder and extrahepatic biliary system. Normal spleen. Normal pancreas. Normal bilateral adrenal glands. Normal right kidney. Tiny nonobstructive calculus in the mid pole calyx of the left kidney. There is a small hiatal hernia. Normal small intestine. There are multiple colonic diverticula consistent with diverticulosis. The appendix is visualized and appears normal. There is diffuse atherosclerotic calcification of the abdominal aorta and its major visceral branches, without a demonstrated aneurysm. Normal inferior vena cava. Normal retroperitoneum. Normal urinary bladder. There are prostatic calcifications. Prostate is enlarged and measures 3.4 cm x 4.3 cm. This causes indentation at the bladder base. Small right inguinal hernia containing fat and the upper lateral right side of the bladder. Small left inguinal hernia containing fat. Mild degree of disc space narrowing at the L5-S1 level. CT/Abdomen/Pelvis WITH Contrast IMPRESSION: Sigmoid diverticulosis. Electronically Signed: Piyush Knowles MD at 14:22 EDT , CC: Dr. Alexander Steiner MD Inspector Rough Castings: Signed Normal [facility] Amylaseon 10-03-2023 JULI 44 U/L Normal 25-115 [facility] Comment on above: Performed By: #### L 500.4050, L501.2400, L100.0100, L501.2450, L400.2010 ####[facility] [address] [place], [address] CBC W/Diff, Automatedon 07-0 Absolute Lymph 0.72 X10 3/uL Low 0.83-4.51 [facility] Comment on above: Performed By: #### L 500.4050, L501.2400, L100.0100, L501.2450, L400.2010 ####[facility] [address] [place], [address] Absolute Neut 6.1 X10 3/uL Normal 2.0-7.7 [facility] Comment on above: Performed By: #### L 500.4050, L501.2400, L100.0100, L501.2450, L400.2010 ####[facility] [address] [place], [address] Basophils/100 WBC (Bld) 0.8 % Normal 0-1 [facility] Comment on above: Performed By: #### L 500.4050, L501.2400, L100.0100, L501.2450, L400.2010 ####[facility] [address] [place], [address] Eosinophils/100 WBC (Bld) 0.8 % Normal 0-5 [facility] Comment on above: Performed By: #### L 500.4050, L501.2400, L100.0100, L501.2450, L400.2010 ####[facility] [address] [place], [address] Erythrocyte distribution width (RBC) [Ratio] 16.1 % High 11.6-14.6 [facility] Comment on above: Performed By: #### L 500.4050, L501.2400, L100.0100, L501.2450, L400.2010 ####[facility] [address] [place], [address] Hematocrit (Bld) [Volume fraction] 41.6 % Normal 40-54 [facility] Comment on above: Performed By: #### L 500.4050, L501.2400, L100.0100, L501.2450, L400.2010 ####[facility] [address] [place], [address] Hemoglobin (Bld) [Mass/Vol] 13.2 g/dL Normal 13.0-16.5 [facility] Comment on above: Performed By: #### L 500.4050, L501.2400, L100.0100, L501.2450, L400.2010 ####[facility] [address] [place], [address] IG% 0.900 Normal 0.0-0.9 [facility] Comment on above: Result Comment: IG% - Immature Granulocytes (promyelocytes, myelocytes and metamyelocytes) > 1% indicates that a LEFT SHIFT is Present. Performed By: #### L 500.4050, L501.2400, L100.0100, L501.2450, L400.2010 ####[facility] [address] [place], [address] Lymphocytes/100 WBC (Bld) 9.3 % Low 19-41 [facility] Comment on above: Performed By: #### L 500.4050, L501.2400, L100.0100, L501.2450, L400.2010 ####[facility] [address] [place], [address] MCH (RBC) [Entitic mass] 27.5 pg Normal 27.0-32.0 [facility] Comment on above: Performed By: #### L 500.4050, L501.2400, L100.0100, L501.2450, L400.2010 ####[facility] [address] [place], [address] MCHC (RBC) [Mass/Vol] 31.7 g/dL Low 32-36 [facility] Comment on above: Performed By: #### L 500.4050, L501.2400, L100.0100, L501.2450, L400.2010 ####[facility] [address] [place], [address] MCV (RBC) [Entitic vol] 86.7 fL Normal 80-94 [facility] Comment on above: Performed By: #### L 500.4050, L501.2400, L100.0100, L501.2450, L400.2010 ####[facility] [address] [place], [address] Monocytes/100 WBC (Bld) 9.3 % Normal 0-10 [facility] Comment on above: Performed By: #### L 500.4050, L501.2400, L100.0100, L501.2450, L400.2010 ####[facility] [address] [place], [address] Neutrophils/100 WBC (Bld) 78.9 % High 47-70 [facility] Comment on above: Performed By: #### L 500.4050, L501.2400, L100.0100, L501.2450, L400.2010 ####[facility] [address] [place], [address] Nucleated RBC (Bld) [#/Vol] 0 10*3/uL Normal 0-5 [facility] Comment on above: Performed By: #### L 500.4050, L501.2400, L100.0100, L501.2450, L400.2010 ####[facility] [address] [place], [address] Platelet mean volume (Bld) [Entitic vol] 10.5 fL Normal 6.2-12.0 [facility] Comment on above: Performed By: #### L 500.4050, L501.2400, L100.0100, L501.2450, L400.2010 ####[facility] [address] [place], [address] Platelets (Bld) [#/Vol] 395 10*3/uL Normal 150-450 [facility] Comment on above: Performed By: #### L 500.4050, L501.2400, L100.0100, L501.2450, L400.2010 ####[facility] [address] [place], [address] RBC (Bld) [#/Vol] 4.80 10*6/uL Normal 4.6-6.2 [facility] Comment on above: Performed By: #### L 500.4050, L501.2400, L100.0100, L501.2450, L400.2010 ####[facility] [address] [place], [address] RDW SD 50.8 fl High 35.1-43.9 [facility] Comment on above: Performed By: #### L 500.4050, L501.2400, L100.0100, L501.2450, L400.2010 ####[facility] [address] [place], [address] WBC (Bld) [#/Vol] 7.8 10*3/uL Normal 4.4-11.0 [facility] Comment on above: Performed By: #### L 500.4050, L501.2400, L100.0100, L501.2450, L400.2010 ####[facility] [address] [place], [address] Comprehensive [facility] 10-03-2023 Albumin [Mass/Vol] 3.2 g/dL Normal 3.2-5.0 [facility] Comment on above: Performed By: #### L 500.4050, L501.2400, L100.0100, L501.2450, L400.2010 ####[facility] [address] [place], [address] Albumin/Globulin [Mass ratio] 0.8 {ratio} Low 0.9-2.4 [facility] Comment on above: Performed By: #### L 500.4050, L501.2400, L100.0100, L501.2450, L400.2010 ####[facility] [address] [place], [address] ALK P 125 U/L High 45-117 [facility] Comment on above: Performed By: #### L 500.4050, L501.2400, L100.0100, L501.2450, L400.2010 ####[facility] [address] [place], [address] ALT [Catalytic activity/Vol] 17 U/L Normal 16-61 [facility] Comment on above: Performed By: #### L 500.4050, L501.2400, L100.0100, L501.2450, L400.2010 ####[facility] [address] [place], [address] AST [Catalytic activity/Vol] 17 U/L Normal 15-37 [facility] Comment on above: Performed By: #### L 500.4050, L501.2400, L100.0100, L501.2450, L400.2010 ####[facility] [address] [place], [address] Bilirubin [Mass/Vol] 0.40 mg/dL Normal 0.20-1.00 [facility] Comment on above: Result Comment: For patients on eltrombopag therapy, use of Dimension [place] TBIL is not recommended. Performed By: #### L 500.4050, L501.2400, L100.0100, L501.2450, L400.2010 ####[facility] [address] [place], [address] BUN/CRE 17.0 RATIO Normal 10-20 [facility] Comment on above: Performed By: #### L 500.4050, L501.2400, L100.0100, L501.2450, L400.2010 ####[facility] [address] [place], [address] CA,Total 9.6 mg/dL Normal 8.5-10.1 [facility] Comment on above: Performed By: #### L 500.4050, L501.2400, L100.0100, L501.2450, L400.2010 ####[facility] [address] [place], [address] Chloride [Moles/Vol] 108 mmol/L High 98-107 [facility] Comment on above: Performed By: #### L 500.4050, L501.2400, L100.0100, L501.2450, L400.2010 ####[facility] [address] [place], [address] CO2 [Moles/Vol] 23.0 mmol/L Normal 21.0-32.0 [facility] Comment on above: Performed By: #### L 500.4050, L501.2400, L100.0100, L501.2450, L400.2010 ####[facility] [address] [place], [address] Creatinine [Mass/Vol] 0.76 mg/dL Normal 0.70-1.30 [facility] Comment on above: Result Comment: The validity of the calculated GFR GFRAA in patients over 70 years has not been determined. Clinical correlation is essential. Performed By: #### L 500.4050, L501.2400, L100.0100, L501.2450, L400.2010 ####[facility] [address] [place], [address] EST GFR - AA 126 mL/min Normal >60 [facility] Comment on above: Result Comment: Afri can Japanese GFR Calc Performed By: #### L 500.4050, L501.2400, L100.0100, L501.2450, L400.2010 ####[facility] [address] [place], [address] GAP 8 Normal 5-15 [facility] Comment on above: Performed By: #### L 500.4050, L501.2400, L100.0100, L501.2450, L400.2010 ####[facility] [address] [place], [address] GFR/1.73 sq M.predicted among non-blacks MDRD (S/P/Bld) [Vol rate/Area] 104 mL/min/{1.73_m2} Normal >60 [facility] Comment on above: Result Comment: Non- GFR Calc Performed By: #### L 500.4050, L501.2400, L100.0100, L501.2450, L400.2010 ####[facility] [address] [place], [address] Globulin (S) [Mass/Vol] 4.0 g/dL Normal 2.2-4.2 [facility] Comment on above: Performed By: #### L 500.4050, L501.2400, L100.0100, L501.2450, L400.2010 ####[facility] [address] [place], [address] Glucose [Mass/Vol] 109 mg/dL High 74-106 [facility] Comment on above: Result Comment: Fast ing Glucose result from 100 to 125 mg/dL suggests IMPAIRED HOMEOSTASIS per A.D.A. criteria. Performed By: #### L 500.4050, L501.2400, L100.0100, L501.2450, L400.2010 ####[facility] [address] [place], [address] Potassium [Moles/Vol] 3.2 mmol/L Low 3.5-5.1 [facility] Comment on above: Performed By: #### L 500.4050, L501.2400, L100.0100, L501.2450, L400.2010 ####[facility] [address] [place], [address] Sodium [Moles/Vol] 139 mmol/L Normal 136-145 [facility] Comment on above: Performed By: #### L 500.4050, L501.2400, L100.0100, L501.2450, L400.2010 ####[facility] [address] [place], [address] T PROT 7.2 g/dL Normal 6.4-8.2 [facility] Comment on above: Performed By: #### L 500.4050, L501.2400, L100.0100, L501.2450, L400.2010 ####[facility] [address] [place], [address] Urea nitrogen [Mass/Vol] 13 mg/dL Normal 7-18 [facility] Comment on above: Performed By: #### L 500.4050, L501.2400, L100.0100, L501.2450, L400.2010 ####[facility] [address] [place], [address] Lipaseon 10-03-2023 Lipase [Catalytic activity/Vol] 20 U/L Normal 13-75 [facility] Comment on above: Result Comment: Misbah steward note: LIPASE revised reference range effective 22. New Lipase methodology. Expected to produce lower values than the previous assay method. NEW Reference Range: 13 - 75 U/L Performed By: #### L 500.4050, L501.2400, L100.0100, L501.2450, L400.2010 ####[facility] [address] [place], [address] Urinalysis, Routine (Dipstic k)on 10-03-2023 BILIRUBIN URINE Negative Normal Negative [facility] Comment on above: Order Comment: Urine , Random Performed By: #### L 500.4050, L501.2400, L100.0100, L501.2450, L400.2010 ####[facility] [address] [place], [address] Clarity (U) Sl. Cloudy Normal Clear [facility] Comment on above: Order Comment: Urine , Random Performed By: #### L 500.4050, L501.2400, L100.0100, L501.2450, L400.2010 ####[facility] [address] [place], [address] Color (U) Yellow Normal Yellow [facility] Comment on above: Order Comment: Urine , Random Performed By: #### L 500.4050, L501.2400, L100.0100, L501.2450, L400.2010 ####[facility] [address] [place], [address] GLUCOSE, UR Normal Normal Normal [facility] Comment on above: Order Comment: Urine , Random Performed By: #### L 500.4050, L501.2400, L100.0100, L501.2450, L400.2010 ####[facility] [address] [place], [address] KETONE UR Negative Normal Negative [facility] Comment on above: Order Comment: Urine , Random Performed By: #### L 500.4050, L501.2400, L100.0100, L501.2450, L400.2010 ####[facility] [address] [place], [address] LEUK ESTERASE Negative Normal Negative [facility] Comment on above: Order Comment: Urine , Random Performed By: #### L 500.4050, L501.2400, L100.0100, L501.2450, L400.2010 ####[facility] [address] [place], [address] Nitrite Ql (U) Negative Normal Negative [facility] Comment on above: Order Comment: Urine , Random Performed By: #### L 500.4050, L501.2400, L100.0100, L501.2450, L400.2010 ####[facility] [address] [place], [address] OCCULT BLOOD-UR Negative Normal Negative [facility] Comment on above: Order Comment: Urine , Random Performed By: #### L 500.4050, L501.2400, L100.0100, L501.2450, L400.2010 ####[facility] [address] [place], [address] pH UR 6.0 Normal 5.0 - 8.0 [facility] Comment on above: Order Comment: Urine , Random Performed By: #### L 500.4050, L501.2400, L100.0100, L501.2450, L400.2010 ####[facility] [address] [place], [address] PROT DIPSTX 15 mg/dl Abnormal Negative [facility] Comment on above: Order Comment: Urine , Random Performed By: #### L 500.4050, L501.2400, L100.0100, L501.2450, L400.2010 ####[facility] [address] [place], [address] SP.GR. DIPSTX 1.015 Normal 1.002-1.03 0 [facility] Comment on above: Order Comment: Urine , Random Performed By: #### L 500.4050, L501.2400, L100.0100, L501.2450, L400.2010 ####[facility] [address] [place], [address] UROBILI Normal Normal Normal [facility] Comment on above: Order Comment: Urine , Random Performed By: #### L 500.4050, L501.2400, L100.0100, L501.2450, L400.2010 ####[facility] [address] [place], [address] Absolute lymphocyte countOrd ered By: Alexander Steiner on 04-04-2023 Lymphocytes Auto (Unsp spec) [#/Vol] 0.77 10*3/uL 0.83-4.51 [facility] Basophil percentageOrdered B y: Alexander Steiner on 04-04-2023 Basophils/100 WBC (Bld) 1.2 % 0-1 [facility] Eosinophils/100 WBC (Bld) 0.6 % 0-5 [facility] Neutrophils (Bld) [#/Vol] 5.2 10*3/uL 2.0-7.7 [facility] Neutrophils/100 WBC (Bld) 76.4 % 47-70 [facility] WBC (Bld) [#/Vol] 6.8 10*3/uL 4.4-11.0 [facility] Blood erythrocytes count (nu mber/volume)Ordered By: Alexander Steiner on 04-04-2023 RBC (Bld) [#/Vol] 4.82 10*6/uL 4.6-6.2 [facility] Blood hemoglobin measurement (mass/volume)Ordered By: Alexander Steiner on 04-04-2023 Hemoglobin (Bld) [Mass/Vol] 12.6 g/dL 13.0-16.5 [facility] Blood lymphocytes/100 leukoc ytesOrdered By: Alexander Steiner on 04-04-2023 Lymphocytes/100 WBC (Bld) 11.4 % 19-41 [facility] Blood monocytes/100 leukocyt esOrdered By: [facility] Monocytes/100 WBC (Bld) 10.0 % 0-10 [facility] Blood platelet mean volumeOr dered By: Alexander Steiner on 04-04-2023 Platelet mean volume (Bld) [Entitic vol] 10.5 fL 6.2-12.0 [facility] Determination of erythrocyte mean corpuscular volume (MCV)Ordered By: Alexander Steiner on 04-04-2023 MCV (RBC) [Entitic vol] 84.4 fL 80-94 [facility] Hematocrit Auto (Bld) [Volum e fraction]Ordered By: [facility] on 04-04-2023 Hematocrit (Bld) [Volume fraction] 40.7 % 40-54 [facility] Laboratory - Hematology and Cell countsOrdered By: [facility] on 04-04-2023 Erythrocyte distribution width (RBC) [Entitic vol] 59.4 fL 35.1-43.9 [facility] Erythrocyte distribution width (RBC) [Ratio] 19.6 % 11.6-14.6 [facility] Immature granulocytes/100 WBC (Bld) 0.400 % 0.0-0.9 [facility] Comment on above: IG% - Immature Granu locytes (promyelocytes, myelocytes and metamyelocytes) > 1% indicates that a LEFT SHIFT is Present. MCH (RBC) [Entitic mass] 26.1 pg 27.0-32.0 [facility] Nucleated RBC/100 WBC (Bld) [Ratio] 0 % 0-5 [facility] MCHC Auto (RBC) [Mass/Vol]Or dered By: Alexander Steiner on 04-04-2023 MCHC (RBC) [Mass/Vol] 31.0 g/dL 32-36 [facility] Platelets bldOrdered By: Alexander Steiner on 04-04-2023 Platelets (Bld) [#/Vol] 281 10*3/uL 150-450 [facility] Stool gastrointestinal hemog lobin detection by immunologic methodOrdered By: Alexander Steiner on 03-06-2023 Lower GI hemoglobin IA Ql (Stl) [facility] Absolute lymphocyte countOrd ered By: Alexander Steiner on 03-03-2023 Lymphocytes Auto (Unsp spec) [#/Vol] 0.75 10*3/uL 0.83-4.51 [facility] Basophil percentageOrdered B y: Alexander Steiner on 03-03-2023 Basophils/100 WBC (Bld) 1.8 % 0-1 [facility] Eosinophils/100 WBC (Bld) 2.9 % 0-5 [facility] Neutrophils (Bld) [#/Vol] 3.9 10*3/uL 2.0-7.7 [facility] Neutrophils/100 WBC (Bld) 70.4 % 47-70 [facility] WBC (Bld) [#/Vol] 5.5 10*3/uL 4.4-11.0 [facility] Blood erythrocytes count (nu mber/volume)Ordered By: Alexander Steiner on 03-03-2023 RBC (Bld) [#/Vol] 4.40 10*6/uL 4.6-6.2 [facility] Blood hemoglobin measurement (mass/volume)Ordered By: Alexander Steiner on 03-03-2023 Hemoglobin (Bld) [Mass/Vol] 11.1 g/dL 13.0-16.5 [facility] Blood lymphocytes/100 leukoc ytesOrdered By: Alexander Steiner on 03-03-2023 Lymphocytes/100 WBC (Bld) 13.7 % 19-41 [facility] Blood monocytes/100 leukocyt esOrdered By: Alexander Steiner on 03-03-2023 Monocytes/100 WBC (Bld) 11.0 % 0-10 [facility] Blood platelet mean volumeOr dered By: Alexander Steiner on 03-03-2023 Platelet mean volume (Bld) [Entitic vol] 10.6 fL 6.2-12.0 [facility] Determination of erythrocyte mean corpuscular volume (MCV)Ordered By: Alexander Steiner on 03-03-2023 MCV (RBC) [Entitic vol] 81.4 fL 80-94 [facility] Hematocrit Auto (Bld) [Volum e fraction]Ordered By: Alexander Steiner on 03-03-2023 Hematocrit (Bld) [Volume fraction] 35.8 % 40-54 [facility] Hemoglobin in reticulocytes (mass per reticulocyte)Ordered By: Alexander Steiner on 03-03-2023 Hemoglobin (Reticulocytes) [Entitic mass] 26.9 pg 30-35 [facility] Iron measurement (mass/mass) Ordered By: Alexander Steiner 03-03-2023 Iron (Unsp spec) [Mass/Mass] 16 ug/dL 65-175 [facility] Laboratory - Chemistry and C hemistry - challengeOrdered By: Alexander Steiner 03-03-2023 Cobalamin (Vitamin B12) [Mass/Vol] 536 pg/mL 211-911 [facility] Laboratory - Hematology and Cell countsOrdered By: Alexander Steiner 03-03-2023 Erythrocyte distribution width (RBC) [Entitic vol] 48.5 fL 35.1-43.9 [facility] Erythrocyte distribution width (RBC) [Ratio] 16.3 % 11.6-14.6 [facility] Immature granulocytes/100 WBC (Bld) 0.200 % 0.0-0.9 [facility] Comment on above: IG% - Immature Granu locytes (promyelocytes, myelocytes and metamyelocytes) > 1% indicates that a LEFT SHIFT is Present. MCH (RBC) [Entitic mass] 25.2 pg 27.0-32.0 [facility] Nucleated RBC/100 WBC (Bld) [Ratio] 0 % 0-5 [facility] MCHC Auto (RBC) [Mass/Vol]Or dered By: Alexander Steiner on 03-03-2023 MCHC (RBC) [Mass/Vol] 31.0 g/dL 32-36 [facility] No Panel InformationOrdered By: Alexander Steiner on 03-03-2023 Immature Reticulocyte Fraction 17.40 % 3.00-15.90 [facility] Reticulocyte Count 1.01 % 0.5-1.5 [facility] Total Iron Binding Capacity 486 ug/dL 250-450 [facility] Platelets bldOrdered By: Alexander Steiner on 03-03-2023 Platelets (Bld) [#/Vol] 255 10*3/uL 150-450 [facility] Serum or plasma ferritin xavi surement (mass/volume)Ordered By: Alexander Steiner on 03-03-2023 Ferritin [Mass/Vol] 7 ng/mL 26-388 [facility] Serum or plasma folate measu rement (mass/volume)Ordered By: Alexander Steiner on 03-03-2023 Folate [Mass/Vol] 15.50 ng/mL 3.1-55.4 [facility] Serum or plasma iron saturat ion measurement (mass fraction)Ordered By: Alexander Steiner on 03-03-2023 Iron saturation [Mass fraction] 3.3 % 15.0-55.0 [facility] Absolute lymphocyte countOrd ered By: Alexander Steiner on 03-02-2023 Lymphocytes Auto (Unsp spec) [#/Vol] 0.81 10*3/uL 0.83-4.51 [facility] Basophil percentageOrdered B y: Alexander Steiner on 03-02-2023 Basophils/100 WBC (Bld) 2.2 % 0-1 [facility] Bilirubin [Mass/Vol] 0.40 mg/dL 0.20-1.00 [facility] Comment on above: For patients on eltr ombopag therapy, use of Dimension [place] TBIL is not recommended. Chloride [Moles/Vol] 110 mmol/L 98-107 [facility] Cholesterol [Mass/Vol] 146 mg/dL <200 [facility] Comment on above: <200 mg/dL Desirable 200-240 mg/dL Borderline >240 mg/dL High Risk Eosinophils/100 WBC (Bld) 5.1 % 0-5 [facility] Glucose [Mass/Vol] 101 mg/dL 74-106 [facility] Comment on above: Fasting Glucose resu lt from 100 to 125 mg/dL suggests IMPAIRED HOMEOSTASIS per A.D.A. criteria. Neutrophils (Bld) [#/Vol] 2.7 10*3/uL 2.0-7.7 [facility] Neutrophils/100 WBC (Bld) 59.6 % 47-70 [facility] Potassium [Moles/Vol] 3.7 mmol/L 3.5-5.1 [facility] Protein [Mass/Vol] 7.0 g/dL 6.4-8.2 [facility] Sodium [Moles/Vol] 140 mmol/L 136-145 [facility] Triglyceride [Mass/Vol] 53 mg/dL <199 [facility] Comment on above: The drugs N-Acetylcy steine and Metamizole may falsely depress this assay.Serum Triglycerides Reference Interval Normal <150 mg/dL Borderline high 150 - 199 mg/dL High 200 - 499 mg/dL Very High > or = 500 mg/dL WBC (Bld) [#/Vol] 4.5 10*3/uL 4.4-11.0 [facility] Blood erythrocytes count (nu mber/volume)Ordered By: Alexander Steiner on 03-02-2023 RBC (Bld) [#/Vol] 4.40 10*6/uL 4.6-6.2 [facility] Blood hemoglobin measurement (mass/volume)Ordered By: Alexander Steiner on 03-02-2023 Hemoglobin (Bld) [Mass/Vol] 10.9 g/dL 13.0-16.5 [facility] Blood lymphocytes/100 leukoc ytesOrdered By: Alexander Steiner on 03-02-2023 Lymphocytes/100 WBC (Bld) 17.9 % 19-41 [facility] Blood monocytes/100 leukocyt esOrdered By: Alexander Steiner on 03-02-2023 Monocytes/100 WBC (Bld) 15.0 % 0-10 [facility] Blood platelet mean volumeOr dered By: Alexander Steiner on 03-02-2023 Platelet mean volume (Bld) [Entitic vol] 10.3 fL 6.2-12.0 [facility] Determination of erythrocyte mean corpuscular volume (MCV)Ordered By: Alexander Steiner on 03-02-2023 MCV (RBC) [Entitic vol] 82.3 fL 80-94 [facility] Hematocrit Auto (Bld) [Volum e fraction]Ordered By: Alexander Steiner on 03-02-2023 Hematocrit (Bld) [Volume fraction] 36.2 % 40-54 [facility] Laboratory - Chemistry and C hemistry - challengeOrdered By: [facility] on 03-02-2023 ALP [Catalytic activity/Vol] 79 U/L 45-117 [facility] ALT [Catalytic activity/Vol] 17 U/L 16-61 [facility] CO2 [Moles/Vol] 23.0 mmol/L 21.0-32.0 [facility] Globulin (S) [Mass/Vol] 3.4 g/dL 2.2-4.2 [facility] Urea nitrogen/Creatinine [Mass ratio] 15.8 mg/mg 10-20 [facility] Laboratory - Hematology and Cell countsOrdered By: [facility] 03-02-2023 Erythrocyte distribution width (RBC) [Entitic vol] 49.2 fL 35.1-43.9 [facility] Erythrocyte distribution width (RBC) [Ratio] 16.3 % 11.6-14.6 [facility] Immature granulocytes/100 WBC (Bld) 0.200 % 0.0-0.9 [facility] Comment on above: IG% - Immature Granu locytes (promyelocytes, myelocytes and metamyelocytes) > 1% indicates that a LEFT SHIFT is Present. MCH (RBC) [Entitic mass] 24.8 pg 27.0-32.0 [facility] Nucleated RBC/100 WBC (Bld) [Ratio] 0 % 0-5 [facility] MCHC Auto (RBC) [Mass/Vol]Or dered By: Alexander Steiner on 03-02-2023 MCHC (RBC) [Mass/Vol] 30.1 g/dL 32-36 [facility] No Panel InformationOrdered By: Alexander Steiner on 03-02-2023 Estimated GFR (MDRD) Amer 140 mL/min >60 [facility] Comment on above: GFR Calc Estimated GFR (MDRD) Non-Af Amer 116 mL/min >60 [facility] Comment on above: Non- GFR Calc Thyroid Stimulating Hormone (TSH) 0.57 uIU/mL 0.358-3.74 [facility] Vitamin D 25-Hydroxy 35.7 ng/mL [facility] Comment on above: Vitamin D 25(OH) Sta tus Range Deficiency <20 ng/mL (50nmol/L) Insufficiency 20 - 30 ng/mL (50 - 75 nmol/L) Sufficiency 30 - 100 ng/mL (75 - 250 nmol/L) Toxicity >100 ng/mL (>250 nmol/L) Platelets bldOrdered By: Alexander Steiner on 03-02-2023 Platelets (Bld) [#/Vol] 247 10*3/uL 150-450 [facility] Serum or plasma albumin maddie urement (mass/volume)Ordered By: Alexander Steiner on 03-02-2023 Albumin [Mass/Vol] 3.6 g/dL 3.2-5.0 [facility] Serum or plasma albumin/glob ulin mass ratioOrdered By: Alexander Steiner 03-02-2023 Albumin/Globulin [Mass ratio] 1.1 {ratio} 0.9-2.4 [facility] Serum or plasma calcium maddie urement (mass/volume)Ordered By: Alexander Steiner 03-02-2023 Calcium [Mass/Vol] 8.1 mg/dL 8.5-10.1 [facility] Serum or plasma cholesterol in HDL measurement (mass/volume)Ordered By: Alexander Steiner 03-02-2023 Cholesterol in HDL [Mass/Vol] 74 mg/dL >40 [facility] Comment on above: The drugs N-Acetylcy steine and Metamizole may falsely depress this assay. Reference Range HDL <40 mg/dL Low HDL Cholesterol HDL >or= 60 mg/dL High HDL Cholesterol Serum or plasma cholesterol in VLDL measurement (mass/volume)Ordered By: Alexander Steiner on 03-02-2023 Cholesterol in VLDL [Mass/Vol] 11 mg/dL 5-40 [facility] Serum or plasma creatinine m easurement (mass/volume)Ordered By: Alexander Steiner 03-02-2023 Creatinine [Mass/Vol] 0.70 mg/dL 0.70-1.30 [facility] Comment on above: The validity of the calculated GFR & GFRAA in patients over 70 years has not been determined. Clinical correlation is essential. Serum or plasma low density lipoprotein (LDL) cholesterol measurement (mass/volume)Ordered By: Alexander Steiner on 03-02-2023 Cholesterol in LDL [Mass/Vol] 61 mg/dL 0-130 [facility] Serum or plasma urea nitroge n measurement (mass/volume)Ordered By: Alexander Steiner on 03-02-2023 Urea nitrogen [Mass/Vol] 11 mg/dL 7-18 [facility] Thin prep Papanicolaou smear with manual screeningOrdered By: Alexander Steiner on 03-02-2023 Thin prep Papanicolaou smear with manual screening 18 U/L 15-37 [facility] Thin prep Papanicolaou smear with manual screening 7 5-15 [facility] No Panel InformationOrdered By: Alejandro Machado on 01-04-2023 Estimated GFR (MDRD) Amer 127 mL/min >60 [facility] Comment on above: GFR Calc Estimated GFR (MDRD) Non-Af Amer 105 mL/min >60 [facility] Comment on above: Non- GFR Calc Serum or plasma creatinine m easurement (mass/volume)Ordered By: Alejandro Machado on 01-04-2023 Creatinine [Mass/Vol] 0.76 mg/dL 0.70-1.30 [facility] Comment on above: The validity of the calculated GFR & GFRAA in patients over 70 years has not been determined. Clinical correlation is essential. No Panel InformationOrdered By: Alexander Steiner on 12-27-2022 Thyroid Stimulating Hormone (TSH) 1.15 uIU/mL 0.358-3.74 [facility] CBC,PLATELETSon 12-02-2022 Erythrocyte distribution width (RBC) [Ratio] 15.5 % High 10.9 - 14.3 % [facility] Hematocrit (Bld) [Volume fraction] 38.0 % Low 39.6 - 48.8 % [facility] Hemoglobin (Bld) [Mass/Vol] 12.0 g/dL Low 13.4 - 16.8 g/dL [facility] Interpretation and review of laboratory results Abnormal [facility] MCH (RBC) [Entitic mass] 26.7 pg 26.1 - 33.3 pg [facility] MCHC (RBC) [Mass/Vol] 31.6 g/dL Low 31.9 - 36.5 g/dL [facility] MCV (RBC) [Entitic vol] 84.6 fL 79.0 - 94.5 fL [facility] Platelet mean volume (Bld) [Entitic vol] 10.3 fL 8.7 - 12.3 fL [facility] Platelets (Bld) [#/Vol] 288 10*3/uL 146 - 337 K/uL [facility] RBC (Bld) [#/Vol] 4.49 10*6/uL [facility] WBC (Bld) [#/Vol] 8.71 10*3/uL 3.73 - 10.10 K/uL [facility] GENERAL PROCEDUREon 12-03-19 Reji Goodrich MD - 12/02/2022 7:30 AM EDT BODY INTERVENTIONAL RADIOLOGY PROCEDURE NOTE PROCEDURE INDICATION: Right upper lobe enlarging lung nodule PROCEDURE PERFORMED: CT-guided lung biopsy FINDINGS/TARGET: Right upper raj lung nodule. Total of 6 passes taken. No pneumothorax on post imaging. Reji Goodrich MD 12/02/2022 9:11 AM CAFETERIA MONITOR(S): Reji Goodrich MD. CONSENT: Informed consent was obtained prior to the procedure after discussion of the risks, benefits, and alternatives of the procedure, and expected procedure outcomes were discussed with the patient and/or renewals representative. The consent document was placed in chart. DID THIS PROCEDURE REQUIRE A UNIVERSAL PROTOCOL?: Yes. [place] Protocol is required. Preprocedure verification is complete. [...] Radiology to participate in this patient's care. [facility] Radiology Study observation (narrative) [facility] PT/INR POINT OF CAREon 12-02 Interpretation and review of laboratory results Abnormal [facility] PT/INR (POC Device) 1.4 High 0.9 - 1.1 [facility] Comment on above: INR results performe d by this method may be inaccurate in patients with a hematocrit <20% or >55%. Confirmation of test results by standard coagulation testing in the main clinical laboratory is recommended for these patients. Test performed at ad dress of the patient encounter. [facility] Portable XR Chest Views APon 12-02-2022 IMPRESSION: 1. No evidence of pneumothorax. 2. Bilateral emphysematous changes. I personally viewed and interpreted these images and I have reviewed and approved this report. OLOGY EXAM: XR CHEST AP PO RTABLE, 12/02/2022 09:33 AM COMPARISON: CT chest from October 2022. CLINICAL INDICATIONS: Assess for pneumothorax s/p biopsy RELEVANT CLINICAL HISTORY: FINDINGS: (Adequate technique) Implanted Devices: None Thorax: Diffuse bilateral emphysematous changes. No airspace disease. Right lung lesion better assessed on the prior CT scan. No pleural effusion or pneumothorax. Heart size is normal. Aortic atherosclerosis. Degenerative changes throughout the spine. RADIOLOGY Edouard Escobar M D, PhD - 12/02/2022 EXAM: XR CHEST AP PORTABLE, 12/02/2022 09:33 AM COMPARISON: CT chest from October 2022. CLINICAL INDICATIONS: Assess for pneumothorax s/p biopsy RELEVANT CLINICAL HISTORY: FINDINGS: (Adequate technique) Implanted Devices: None Thorax: Diffuse bilateral emphysematous changes. No airspace disease. Right lung lesion better assessed on the prior CT scan. No pleural effusion or pneumothorax. Heart size is normal. Aortic atherosclerosis. Degenerative changes throughout the spine. IMPRESSION IMPRESSION: 1. No evidence of pneumothorax. 2. Bilateral emphysematous changes. I personally viewed and interpreted these images and I have reviewed and approved this report. [facility] Radiology Study observation (narrative) [facility] Portable XR Chest Views APOr dered By: Edouard Escobar on 12-02-2022 [facility] Work Phone: CT CHEST WITHOUT CONTRASTon 11-11-2022 CT CHEST WITHOUT CONTRAST EXAM: CT CHEST WITHOUT CONTRAST, 11/04/2022 09:59 AM COMPARISON: CT November 10, 2021 CLINICAL INDICATIONS: lung nodule; RELEVANT CLINICAL HISTORY: R91.1:Lung nodule TECHNIQUE: CT images of the chest were obtained without intravenous contrast. FINDINGS: Lungs and Pleura: Generalized centrilobular emphysema bilaterally. The irregular nodular lesion in the posterior right upper lobe on axial image 53 series 5 measures approximately 12 x 11 mm (excluding the irregular component surrounding it as measured previously), previously measuring 8 x 7 mm. No new worrisome nodules. No airspace disease, consolidation or pleural effusion. Tracheobronchial tree: No abnormality. Mediastinum/Katie: No mediastinal or hilar lymphadenopathy. The thyroid is not identified. Grossly the esophagus is unremarkable. Axilla and Supraclavicular Regions: No axillary or supraclavicular adenopathy. Cardiovascular: The heart size is normal with no pericardial effusion. Calcified atherosclerotic disease throughout the coronary arteries and scattered throughout the aorta. The aorta and central pulmonary vasculature are of normal caliber. Upper Abdomen: The upper abdominal contents are unremarkable. Bones and Soft Tissue: No suspicious osseous lesion. Stable sclerotic bone island in the T1 vertebral body as described unchanged dating back to 2018. IMPRESSION: 1. Increasing size of the irregular nodular density in the posterior right upper lobe. No new lung lesions. Findings are suspicious for underlying carcinoma. Tissue sampling would be definitive. No new lung lesions. 2. No thoracic lymphadenopathy. 3. Generalized calcified coronary artery disease and generalized bilateral centrilobular emphysema. Normal [facility] No Panel InformationOrdered By: Alexander Steiner on 11-01-2022 Thyroid Stimulating Hormone (TSH) 7.41 uIU/mL 0.358-3.74 [facility] Absolute lymphocyte countOrd ered By: Alexander Steiner on 08-31-2022 Lymphocytes Auto (Unsp spec) [#/Vol] 0.84 10*3/uL 0.83-4.51 [facility] Basophil percentageOrdered B y: Alexander Steiner on 08-31-2022 Basophils/100 WBC (Bld) 1.1 % 0-1 [facility] Bilirubin [Mass/Vol] 0.40 mg/dL 0.20-1.00 [facility] Comment on above: For patients on eltr ombopag therapy, use of [place] TBIL is not recommended. Chloride [Moles/Vol] 110 mmol/L 98-107 [facility] Cholesterol [Mass/Vol] 149 mg/dL <200 [facility] Comment on above: <200 mg/dL Desirable 200-240 mg/dL Borderline >240 mg/dL High Risk Eosinophils/100 WBC (Bld) 1.7 % 0-5 [facility] Glucose [Mass/Vol] 124 mg/dL 74-106 [facility] Comment on above: Fasting Glucose resu lt from 100 to 125 mg/dL suggests IMPAIRED HOMEOSTASIS per A.D.A. criteria. Neutrophils (Bld) [#/Vol] 5.5 10*3/uL 2.0-7.7 [facility] Neutrophils/100 WBC (Bld) 76.2 % 47-70 [facility] Potassium [Moles/Vol] 3.7 mmol/L 3.5-5.1 [facility] Protein [Mass/Vol] 7.5 g/dL 6.4-8.2 [facility] Sodium [Moles/Vol] 140 mmol/L 136-145 [facility] Triglyceride [Mass/Vol] 40 mg/dL <199 [facility] Comment on above: The drugs N-Acetylcy steine and Metamizole may falsely depress this assay.Serum Triglycerides Reference Interval Normal <150 mg/dL Borderline high 150 - 199 mg/dL High 200 - 499 mg/dL Very High > or = 500 mg/dL WBC (Bld) [#/Vol] 7.3 10*3/uL 4.4-11.0 [facility] Blood erythrocytes count (nu mber/volume)Ordered By: Alexander Steiner on 08-31-2022 RBC (Bld) [#/Vol] 4.37 10*6/uL 4.6-6.2 [facility] Blood hemoglobin measurement (mass/volume)Ordered By: Alexander Steiner on 08-31-2022 Hemoglobin (Bld) [Mass/Vol] 12.2 g/dL 13.0-16.5 [facility] Blood lymphocytes/100 leukoc ytesOrdered By: Alexander Steiner on 08-31-2022 Lymphocytes/100 WBC (Bld) 11.6 % 19-41 [facility] Blood monocytes/100 leukocyt esOrdered By: Alexander Steiner on 08-31-2022 Monocytes/100 WBC (Bld) 9.1 % 0-10 [facility] Blood platelet mean volumeOr dered By: Alexander Steiner on 08-31-2022 Platelet mean volume (Bld) [Entitic vol] 10.7 fL 6.2-12.0 [facility] Determination of erythrocyte mean corpuscular volume (MCV)Ordered By: Alexander Steiner on 08-31-2022 MCV (RBC) [Entitic vol] 88.1 fL 80-94 [facility] Hematocrit Auto (Bld) [Volum e fraction]Ordered By: Alexander Steiner on 08-31-2022 Hematocrit (Bld) [Volume fraction] 38.5 % 40-54 [facility] Laboratory - Chemistry and C hemistry - challengeOrdered By: Alexander Steiner on 08-31-2022 ALP [Catalytic activity/Vol] 98 U/L 45-117 [facility] ALT [Catalytic activity/Vol] 18 U/L 16-61 [facility] CO2 [Moles/Vol] 23.0 mmol/L 21.0-32.0 [facility] Globulin (S) [Mass/Vol] 3.7 g/dL 2.2-4.2 [facility] Urea nitrogen/Creatinine [Mass ratio] 19.1 mg/mg 10-20 [facility] Laboratory - Hematology and Cell countsOrdered By: Alexander Steiner on 08-31-2022 Erythrocyte distribution width (RBC) [Entitic vol] 53.6 fL 35.1-43.9 [facility] Erythrocyte distribution width (RBC) [Ratio] 16.5 % 11.6-14.6 [facility] Immature granulocytes/100 WBC (Bld) 0.300 % 0.0-0.9 [facility] Comment on above: IG% - Immature Granu locytes (promyelocytes, myelocytes and metamyelocytes) > 1% indicates that a LEFT SHIFT is Present. MCH (RBC) [Entitic mass] 27.9 pg 27.0-32.0 [facility] Nucleated RBC/100 WBC (Bld) [Ratio] 0 % 0-5 [facility] MCHC Auto (RBC) [Mass/Vol]Or dered By: Alexander Steiner on 08-31-2022 MCHC (RBC) [Mass/Vol] 31.7 g/dL 32-36 [facility] No Panel InformationOrdered By: Alexander Steiner on 08-31-2022 Estimated GFR (MDRD) Amer 123 mL/min >60 [facility] Comment on above: GFR Calc Estimated GFR (MDRD) Non-Af Amer 101 mL/min >60 [facility] Comment on above: Non- GFR Calc Thyroid Stimulating Hormone (TSH) 4.32 uIU/mL 0.358-3.74 [facility] Vitamin D 25-Hydroxy 42.4 ng/mL [facility] Comment on above: Vitamin D 25(OH) Sta tus Range Deficiency <20 ng/mL (50nmol/L) Insufficiency 20 - 30 ng/mL (50 - 75 nmol/L) Sufficiency 30 - 100 ng/mL (75 - 250 nmol/L) Toxicity >100 ng/mL (>250 nmol/L) Platelets bldOrdered By: Alexander Steiner on 08-31-2022 Platelets (Bld) [#/Vol] 289 10*3/uL 150-450 [facility] Serum or plasma albumin maddie urement (mass/volume)Ordered By: Alexander Steiner on 08-31-2022 Albumin [Mass/Vol] 3.8 g/dL 3.2-5.0 [facility] Serum or plasma albumin/glob ulin mass ratioOrdered By: Alexander Steiner on 08-31-2022 Albumin/Globulin [Mass ratio] 1.0 {ratio} 0.9-2.4 [facility] Serum or plasma calcium maddie urement (mass/volume)Ordered By: Alexander Steiner on 08-31-2022 Calcium [Mass/Vol] 9.1 mg/dL 8.5-10.1 [facility] Serum or plasma cholesterol in HDL measurement (mass/volume)Ordered By: Alexander Steiner on 08-31-2022 Cholesterol in HDL [Mass/Vol] 81 mg/dL >40 [facility] Comment on above: The drugs N-Acetylcy steine and Metamizole may falsely depress this assay. Reference Range HDL <40 mg/dL Low HDL Cholesterol HDL >or= 60 mg/dL High HDL Cholesterol Serum or plasma cholesterol in VLDL measurement (mass/volume)Ordered By: Alexander Steiner on 08-31-2022 Cholesterol in VLDL [Mass/Vol] 8 mg/dL 5-40 [facility] Serum or plasma creatinine m easurement (mass/volume)Ordered By: Alexander Steiner on 08-31-2022 Creatinine [Mass/Vol] 0.78 mg/dL 0.70-1.30 [facility] Comment on above: The validity of the calculated GFR & GFRAA in patients over 70 years has not been determined. Clinical correlation is essential. Serum or plasma low density lipoprotein (LDL) cholesterol measurement (mass/volume)Ordered By: Alexander Steiner on 08-31-2022 Cholesterol in LDL [Mass/Vol] 60 mg/dL 0-130 [facility] Serum or plasma urea nitroge n measurement (mass/volume)Ordered By: Alexander Steiner on 08-31-2022 Urea nitrogen [Mass/Vol] 15 mg/dL 7-18 [facility] Thin prep Papanicolaou smear with manual screeningOrdered By: Alexander Steiner on 08-31-2022 Thin prep Papanicolaou smear with manual screening 17 U/L 15-37 [facility] Thin prep Papanicolaou smear with manual screening 7 5-15 [facility] Basophil percentageOrdered B y: Dr. Nolen on 08-26-2022 Bilirubin [Mass/Vol] 0.40 mg/dL 0.20-1.00 [facility] Comment on above: For patients on eltr ombopag therapy, use of [place] TBIL is not recommended. Chloride [Moles/Vol] 113 mmol/L 98-107 [facility] Glucose [Mass/Vol] 112 mg/dL 74-106 [facility] Comment on above: Fasting Glucose resu lt from 100 to 125 mg/dL suggests IMPAIRED HOMEOSTASIS per A.D.A. criteria. Potassium [Moles/Vol] 3.7 mmol/L 3.5-5.1 [facility] Protein [Mass/Vol] 7.1 g/dL 6.4-8.2 [facility] Sodium [Moles/Vol] 143 mmol/L 136-145 [facility] Laboratory - Chemistry and C hemistry - challengeOrdered By: Dr. Nolen on 08-26-2022 ALP [Catalytic activity/Vol] 83 U/L 45-117 [facility] ALT [Catalytic activity/Vol] 20 U/L 16-61 [facility] CO2 [Moles/Vol] 22.0 mmol/L 21.0-32.0 [facility] Free T4 [Mass/Vol] 1.23 ng/dL 0.76-1.46 [facility] Globulin (S) [Mass/Vol] 3.2 g/dL 2.2-4.2 [facility] Urea nitrogen/Creatinine [Mass ratio] 16.3 mg/mg 10-20 [facility] No Panel InformationOrdered By: Dr. Nolen on 08-26-2022 Estimated Creatinine Clearance Calc 62.45 ml/min [facility] Estimated GFR (MDRD) Amer 120 mL/min >60 [facility] Comment on above: GFR Calc Estimated GFR (MDRD) Non-Af Amer 99 mL/min >60 [facility] Comment on above: Non- GFR Calc Thyroid Stimulating Hormone (TSH) 4.95 uIU/mL 0.358-3.74 [facility] Vitamin D 25-Hydroxy 35.2 ng/mL [facility] Comment on above: Vitamin D 25(OH) Sta tus Range Deficiency <20 ng/mL (50nmol/L) Insufficiency 20 - 30 ng/mL (50 - 75 nmol/L) Sufficiency 30 - 100 ng/mL (75 - 250 nmol/L) Toxicity >100 ng/mL (>250 nmol/L) Serum or plasma albumin maddie urement (mass/volume)Ordered By: Dr. Nolen on 08-26-2022 Albumin [Mass/Vol] 3.9 g/dL 3.2-5.0 [facility] Serum or plasma albumin/glob ulin mass ratioOrdered By: Dr. Nolen on 08-26-2022 Albumin/Globulin [Mass ratio] 1.2 {ratio} 0.9-2.4 [facility] Serum or plasma calcium maddie urement (mass/volume)Ordered By: Dr. Nolen on 08-26-2022 Calcium [Mass/Vol] 8.8 mg/dL 8.5-10.1 [facility] Serum or plasma creatinine m easurement (mass/volume)Ordered By: Dr. Nolen on 08-26-2022 Creatinine [Mass/Vol] 0.80 mg/dL 0.70-1.30 [facility] Comment on above: The validity of the calculated GFR & GFRAA in patients over 70 years has not been determined. Clinical correlation is essential. Serum or plasma urea nitroge n measurement (mass/volume)Ordered By: Dr. Nolen on 08-26-2022 Urea nitrogen [Mass/Vol] 13 mg/dL 7-18 [facility] Thin prep Papanicolaou smear with manual screeningOrdered By: Dr. Nolen on 08-26-2022 Thin prep Papanicolaou smear with manual screening 17 U/L 15-37 [facility] Thin prep Papanicolaou smear with manual screening 8 5-15 [facility] No Panel InformationOrdered By: Dr. Otto on 07-16-2022 Prostate Specific Antigen Screen 1.90 ng/mL 0.00-4.00 [facility] Comment on above: This test was perfor med using the TPSA assay method [facility]. Values obtained with differentassay methods cannot be used interchangably.When changing PSA assays in the course of monitoring apatient, additional sequential testing should be carriedout to confirm baseline values. CT Chest WO contraston 11-10 IMPRESSION: 1. Irregular right upper lobe nodule is overall similar in appearance to the immediate prior with subjectively slightly increased nodular soft tissue posteriorly. When compared to more remote studies such as from April 2020, the irregular nodule is overall increased in size. PET/CT or tissue sampling may be useful. I personally viewed and interpreted these images and I have reviewed and approved this report. OLOGY EXAM: CT CHEST WITHO UT CONTRAST, 11/10/2021 11:23 AM COMPARISON: CT chest from May 12, 2021. CLINICAL INDICATIONS: lung nodule surveillance in a former smoker; RELEVANT CLINICAL HISTORY: R91.1:Lung nodule Z87.891:Former smoker TECHNIQUE: CT images of the chest were obtained without intravenous contrast. FINDINGS: Lungs and Pleura: Irregular right upper lobe nodule. The nodular portion measures 0.7 x 0.8 cm, previously 0.7 x 0.9 cm, image 64, similar to the prior. Subjectively, there appears to be slightly increased nodular soft tissue along the posterior aspect, for example image 65. No new nodule. Tracheobronchial tree: No abnormality. Mediastinum/Katie: No mediastinal or hilar lymphadenopathy. Axilla and Supraclavicular Regions: No axillary or supraclavicular adenopathy. Cardiovascular: The cardiac chambers are within normal limits. The pericardium is normal. Dense atherosclerotic calcifications in the left anterior descending and circumflex coronary arteries. Atherosclerotic calcifications in the aorta and branch vessels. The pulmonary arteries are also unremarkable. Upper Abdomen: The upper abdominal contents are unremarkable. Bones and Soft Tissue: Degenerative changes. No suspicious osseous lesion. T1 bone island stable since April 2017. RADIOLOGY Rafaela Garcia M D - 11/10/2021 EXAM: CT CHEST WITHOUT CONTRAST, 11/10/2021 11:23 AM COMPARISON: CT chest from May 12, 2021. CLINICAL INDICATIONS: lung nodule surveillance in a former smoker; RELEVANT CLINICAL HISTORY: R91.1:Lung nodule Z87.891:Former smoker TECHNIQUE: CT images of the chest were obtained without intravenous contrast. FINDINGS: Lungs and Pleura: Irregular right upper lobe nodule. The nodular portion measures 0.7 x 0.8 cm, previously 0.7 x 0.9 cm, image 64, similar to the prior. Subjectively, there appears to be slightly increased nodular soft tissue along the posterior aspect, for example image 65. No new nodule. Tracheobronchial tree: No abnormality. Mediastinum/Katie: No mediastinal or hilar lymphadenopathy. Axilla and Supraclavicular Regions: No axillary or supraclavicular adenopathy. Cardiovascular: The cardiac chambers are within normal limits. The pericardium is normal. Dense atherosclerotic calcifications in the left anterior descending and circumflex coronary arteries. Atherosclerotic calcifications in the aorta and branch vessels. The pulmonary arteries are also unremarkable. Upper Abdomen: The upper abdominal contents are unremarkable. Bones and Soft Tissue: Degenerative changes. No suspicious osseous lesion. T1 bone island stable since April 2017. IMPRESSION IMPRESSION: 1. Irregular right upper lobe nodule is overall similar in appearance to the immediate prior with subjectively slightly increased nodular soft tissue posteriorly. When compared to more remote studies such as from April 2020, the irregular nodule is overall increased in size. PET/CT or tissue sampling may be useful. I personally viewed and interpreted these images and I have reviewed and approved this report. [facility] Radiology Study observation (narrative) [facility] CT Chest WO contrastOrdered By: Rafaela Garcia on 11-10-2021 [facility] Work Phone: Absolute lymphocyte counton 08-25-2021 Lymphocytes Auto (Unsp spec) [#/Vol] 1.72 10*3/uL 0.83-4.51 [facility] Work Phone: Basophil percentageon 2021 Basophils/100 WBC (Bld) 1.2 % 0-1 [facility] Work Phone: Bilirubin [Mass/Vol] 0.40 mg/dL 0.20-1.00 [facility] Work Phone: Comment on above: For patients on eltr ombopag therapy, use of [place] TBIL is not recommended. Chloride [Moles/Vol] 107 mmol/L 98-107 [facility] Work Phone: Eosinophils/100 WBC (Bld) 4.6 % 0-5 [facility] Work Phone: Glucose [Mass/Vol] 106 mg/dL 74-106 [facility] Work Phone: Comment on above: Fasting Glucose resu lt from 100 to 125 mg/dL suggests IMPAIRED HOMEOSTASIS per A.D.A. criteria. Neutrophils (Bld) [#/Vol] 4.1 10*3/uL 2.0-7.7 [facility] Work Phone: Neutrophils/100 WBC (Bld) 58.8 % 47-70 [facility] Work Phone: Potassium [Moles/Vol] 3.0 mmol/L 3.5-5.1 [facility] Work Phone: Protein [Mass/Vol] 7.3 g/dL 6.4-8.2 [facility] Work Phone: Sodium [Moles/Vol] 142 mmol/L 136-145 [facility] Work Phone: Testosterone [Mass/Vol] 791.07 ng/dL [facility] Work Phone: Comment on above: CENTRAL 90% REFERENC E RANGES MALE AGE <50 197.44 - 669.58 ng/dL MALE AGE > or = 50 187.72 - 684.19 ng/dL FEMALE AGE <50 8.38 - 35.01 ng/dL FEMALE AGE > or = 50 <7.00 - 35.92 ng/dL Effective as of 10/20/20 WBC (Bld) [#/Vol] 6.9 10*3/uL 4.4-11.0 [facility] Work Phone: Blood erythrocytes count (nu mber/volume)on 08-25-2021 RBC (Bld) [#/Vol] 4.60 10*6/uL 4.6-6.2 [facility] Work Phone: [phone] Blood hemoglobin measurement (mass/volume)on 08-25-2021 Hemoglobin (Bld) [Mass/Vol] 13.1 g/dL 13.0-16.5 [facility] Work Phone: Blood lymphocytes/100 leukoc yteson 08-25-2021 Lymphocytes/100 WBC (Bld) 25.0 % 19-41 [facility] Work Phone: Blood monocytes/100 leukocyt eson 08-25-2021 Monocytes/100 WBC (Bld) 10.0 % 0-10 [facility] Work Phone: Blood platelet mean volumeon 08-25-2021 Platelet mean volume (Bld) [Entitic vol] 10.5 fL 6.2-12.0 [facility] Work Phone: Determination of erythrocyte mean corpuscular volume (MCV)on 08-25-2021 MCV (RBC) [Entitic vol] 87.4 fL 80-94 [facility] Work Phone: Hematocrit Auto (Bld) [Volum e fraction]on 08-25-2021 Hematocrit (Bld) [Volume fraction] 40.2 % 40-54 [facility] Work Phone: Laboratory - Chemistry and C hemistry - challengeon 08-25-2021 ALP [Catalytic activity/Vol] 102 U/L 45-117 [facility] Work Phone: ALT [Catalytic activity/Vol] 20 U/L 16-61 [facility] Work Phone: CO2 [Moles/Vol] 25.0 mmol/L 21.0-32.0 [facility] Work Phone: Globulin (S) [Mass/Vol] 3.7 g/dL 2.2-4.2 [facility] Work Phone: Urea nitrogen/Creatinine [Mass ratio] 14.8 mg/mg 10-20 [facility] Work Phone: Laboratory - Hematology and Cell countson 08-25-2021 Erythrocyte distribution width (RBC) [Entitic vol] 45.0 fL 35.1-43.9 [facility] Work Phone: Erythrocyte distribution width (RBC) [Ratio] 14.1 % 11.6-14.6 [facility] Work Phone: [phone] Immature granulocytes/100 WBC (Bld) 0.400 % 0.0-0.9 [facility] Work Phone: Comment on above: IG% - Immature Granu locytes (promyelocytes, myelocytes and metamyelocytes) > 1% indicates that a LEFT SHIFT is Present. MCH (RBC) [Entitic mass] 28.5 pg 27.0-32.0 [facility] Work Phone: Nucleated RBC/100 WBC (Bld) [Ratio] 0 % 0-5 [facility] Work Phone: MCHC Auto (RBC) [Mass/Vol]on 08-25-2021 MCHC (RBC) [Mass/Vol] 32.6 g/dL 32-36 [facility] Work Phone: No Panel Informationon 08-25 Estimated GFR (MDRD) Amer 118 mL/min >60 [facility] Work Phone: Comment on above: GFR Calc Estimated GFR (MDRD) Non-Af Amer 97 mL/min >60 [facility] Work Phone: Comment on above: Non- GFR Calc Thyroid Stimulating Hormone (TSH) 4.99 uIU/mL 0.358-3.74 [facility] Work Phone: Vitamin D 25-Hydroxy 42.3 ng/mL [facility] Work Phone: Comment on above: Vitamin D 25(OH) Sta tus Range Deficiency <20 ng/mL (50nmol/L) Insufficiency 20 - 30 ng/mL (50 - 75 nmol/L) Sufficiency 30 - 100 ng/mL (75 - 250 nmol/L) Toxicity >100 ng/mL (>250 nmol/L) Platelets bldon 08-25-2021 Platelets (Bld) [#/Vol] 286 10*3/uL 150-450 [facility] Work Phone: Serum or plasma albumin maddie urement (mass/volume)on 08-25-2021 Albumin [Mass/Vol] 3.6 g/dL 3.2-5.0 [facility] Work Phone: Serum or plasma albumin/glob ulin mass ratioon 08-25-2021 Albumin/Globulin [Mass ratio] 1.0 {ratio} 0.9-2.4 [facility] Work Phone: Serum or plasma calcium maddie urement (mass/volume)on 08-25-2021 Calcium [Mass/Vol] 9.2 mg/dL 8.5-10.1 [facility] Work Phone: Serum or plasma creatinine m easurement (mass/volume)on 08-25-2021 Creatinine [Mass/Vol] 0.81 mg/dL 0.70-1.30 [facility] Work Phone: Comment on above: The validity of the calculated GFR & GFRAA in patients over 70 years has not been determined. Clinical correlation is essential. Serum or plasma urea nitroge n measurement (mass/volume)on 08-25-2021 Urea nitrogen [Mass/Vol] 12 mg/dL 7-18 [facility] Work Phone: Thin prep Papanicolaou smear with manual screeningon 08-25-2021 Thin prep Papanicolaou smear with manual screening 18 U/L 15-37 [facility] Work Phone: Thin prep Papanicolaou smear with manual screening 10 5-15 [facility] Work Phone: Basophil percentageon 2021 Bilirubin [Mass/Vol] 0.60 mg/dL 0.20-1.00 [facility] Work Phone: Comment on above: For patients on eltr ombopag therapy, use of Dimension [place] TBIL is not recommended. Chloride [Moles/Vol] 111 mmol/L 98-107 [facility] Work Phone: Glucose [Mass/Vol] 96 mg/dL 74-106 [facility] Work Phone: Potassium [Moles/Vol] 4.0 mmol/L 3.5-5.1 [facility] Work Phone: Protein [Mass/Vol] 7.3 g/dL 6.4-8.2 [facility] Work Phone: Sodium [Moles/Vol] 139 mmol/L 136-145 [facility] Work Phone: Laboratory - Chemistry and C hemistry - challengeon 07-09-2021 ALP [Catalytic activity/Vol] 84 U/L 45-117 [facility] Work Phone: ALT [Catalytic activity/Vol] 21 U/L 16-61 [facility] Work Phone: CO2 [Moles/Vol] 23.0 mmol/L 21.0-32.0 [facility] Work Phone: Free T4 [Mass/Vol] 1.35 ng/dL 0.76-1.46 [facility] Work Phone: Globulin (S) [Mass/Vol] 3.4 g/dL 2.2-4.2 [facility] Work Phone: Urea nitrogen/Creatinine [Mass ratio] 14.9 mg/mg 10-20 [facility] Work Phone: No Panel Informationon 07-09 Estimated GFR (MDRD) Amer 119 mL/min >60 [facility] Work Phone: Comment on above: GFR Calc Estimated GFR (MDRD) Non-Af Amer 98 mL/min >60 [facility] Work Phone: Comment on above: Non- GFR Calc Thyroid Stimulating Hormone (TSH) 3.05 uIU/mL 0.358-3.74 [facility] Work Phone: Vitamin D 25-Hydroxy 39.2 ng/mL [facility] Work Phone: Comment on above: Vitamin D 25(OH) Sta tus Range Deficiency <20 ng/mL (50nmol/L) Insufficiency 20 - 30 ng/mL (50 - 75 nmol/L) Sufficiency 30 - 100 ng/mL (75 - 250 nmol/L) Toxicity >100 ng/mL (>250 nmol/L) Serum or plasma albumin maddie urement (mass/volume)on 07-09-2021 Albumin [Mass/Vol] 3.9 g/dL 3.2-5.0 [facility] Work Phone: Serum or plasma albumin/glob ulin mass ratioon 07-09-2021 Albumin/Globulin [Mass ratio] 1.1 {ratio} 0.9-2.4 [facility] Work Phone: Serum or plasma calcium maddie urement (mass/volume)on 07-09-2021 Calcium [Mass/Vol] 8.7 mg/dL 8.5-10.1 [facility] Work Phone: Serum or plasma creatinine m easurement (mass/volume)on 07-09-2021 Creatinine [Mass/Vol] 0.81 mg/dL 0.70-1.30 [facility] Work Phone: Comment on above: The validity of the calculated GFR & GFRAA in patients over 70 years has not been determined. Clinical correlation is essential. Serum or plasma urea nitroge n measurement (mass/volume)on 07-09-2021 Urea nitrogen [Mass/Vol] 12 mg/dL 7-18 [facility] Work Phone: Thin prep Papanicolaou smear with manual screeningon 07-09-2021 Thin prep Papanicolaou smear with manual screening 21 U/L 15-37 [facility] Work Phone: Thin prep Papanicolaou smear with manual screening 5 5-15 [facility] Work Phone: Laboratory - Chemistry and C hemistry - challengeon 05-11-2021 Free T4 [Mass/Vol] 1.22 ng/dL 0.76-1.46 [facility] Work Phone: No Panel Informationon 05-11 Thyroid Stimulating Hormone (TSH) 6.17 uIU/mL 0.358-3.74 [facility] Work Phone: CT CHEST WITH CONTRASTon IMPRESSION: 1. No measurable change in the size of the right upper lobe nodule when compared to the prior study of May 08, 2020. Upon review of older outside images, the nodule has shown very mild growth since the prior study of May 08, 2017. This very slow growth would be unusual for malignancy and is suggestive of benign disease. 2. Interval thyroidectomy. OLOGY EXAM: CT CHEST WITH CONTRAST, 11/11/2020 15:20 PM CLINICAL INDICATIONS: enlarging PET avid RUL nodule, surveillance; RELEVANT CLINICAL HISTORY: R91.1:Solitary lung nodule RTC in [address] chest prior; COMPARISON: Compared to the prior PET/CT dated July 14, 2020 and correlation to the prior chest CT May 08, 2020 TECHNIQUE: Axial CT images were reconstructed from the volumetric data set, from the thoracic inlet through the adrenal glands. Coronal MIP images were also reconstructed. CONTRAST: iohexol (OMNIPAQUE) 350 MG/ML injection 1-171 mL; Route of Administration: Intravenous; Dose: 50 mL. FINDINGS: Lungs and Pleura: The right upper [...] wall lesions are identified. Additional Findings: None. Blog Writer: Blog Writer imaging reveals no abnormalities not already visible on the cross-section images. [facility] Edouard Escobar M D, PhD - 11/12/2020 EXAM: CT CHEST WITH CONTRAST, 11/11/2020 15:20 PM CLINICAL INDICATIONS: enlarging PET avid RUL nodule, surveillance; RELEVANT CLINICAL HISTORY: R91.1:Solitary lung nodule RTC in [address] chest prior; COMPARISON: Compared to the prior PET/CT dated July 14, 2020 and correlation to the prior chest CT May 08, 2020 TECHNIQUE: Axial CT images were reconstructed from the volumetric data set, from the thoracic inlet through the adrenal glands. Coronal MIP images were also reconstructed. CONTRAST: iohexol (OMNIPAQUE) 350 MG/ML injection 1-171 mL; Route of Administration: Intravenous; Dose: 50 mL. FINDINGS: Lungs and Pleura: The right upper [...] wall lesions are identified. Additional Findings: None. Blog Writer: Blog Writer imaging reveals no abnormalities not already visible on the cross-section images. IMPRESSION IMPRESSION: 1. No measurable change in the size of the right upper lobe nodule when compared to the prior study of May 08, 2020. Upon review of older outside images, the nodule has shown very mild growth since the prior study of May 08, 2017. This very slow growth would be unusual for malignancy and is suggestive of benign disease. 2. Interval thyroidectomy. [facility] CT CHEST WITH CONTRASTOrdere d By: Edouard Escobar on 11-12-2020 [facility] Work Phone: CREAT/GFRon 11-11-2020 Creatinine [Mass/Vol] 0.67 mg/dL Low 0.70 - 1.30 mg/dL [facility] Est Gfr, (Poc Device) >60 >=60 mL/min/1.7 3 sq m [facility] Interpretation and review of laboratory results Abnormal [facility] Test performed at ad dress of the patient encounter. [facility] CT CHEST WITH CONTRASTon Radiology Study observation (narrative) [facility] Jamel 09-02-2020 CNPIzabela Telephone ([place]EX[place]) MARGAUX SANDERSON ([id number]) 1940 M Date Time Provider Department 09/02/20 RENETTA KOTHARI During your visit today, we recorded the following information about you: Renetta Kothari 09/02/2020 11:51 AM Signed Spoke to patient regarding getting his thyroid FNA to be scheduled. He wants to hold off for a couple weeks since he will be getting cataract surgery coming up. 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] 08/22/2012 Gastritis [K29.70] 08/22/2012 Personal history of colonic polyps [Z86.010] 08/22/2012 Colon polyps [K63.5] 09/02/2013 Essential hypertension [I10] 07/16/2020 Dyspnea on exertion [R06.00] 07/16/2020 Chest pain [R07.9] 07/16/2020 Encounter Status:Closed by RENETTA KOTHARI on 09/02/20 [facility] NM PET/CT SKULL-THIGH INITon 07-14-2020 NM PET/CT SKULL-THIGH INIT * * *Final Report* * * DATE OF EXAM: Jul 14 2020 8:24AM MDP 0060 - NM PET/CT SKULL-THIGH INIT / PROCEDURE REASON: multiple diagnoses * * * * Physician Interpretation * * * * EXAMINATION: REGIONAL FDG PET/CT SCAN: (07/14/2020 8:39 AM) HISTORY: 79 years old Male with Lung nodules Lung nodule. INDICATION: Study performed for initial treatment strategy. TECHNIQUE: F18-FDG administered IV was followed about 60 minutes later by PET imaging from skull base to proximal thigh. Free breathing low dose CT was performed without contrast for attenuation correction and anatomic localization. FDG radionuclide dose: 6.[address] Dose-Length Product (DLP): 284 mGy*cm CT Dose Reduction Employed: Automatic exposure control used (AED) COMPARISON: None available CORRELATION: Outside CT scan of the chest dated 05/08/2020. RESULT: For reference maximum SUV values: Mediastinal blood pool 1.6. Background Liver: 1.9 NECK: Physiologic uptake seen in the visualized brain, parapharyngeal soft tissues, base of tongue, vocal cords, and salivary glands. No hypermetabolic cervical lymphadenopathy or hypermetabolic masses. A markedly hypermetabolic nodule, measuring 2.1 x 2.2 cm in axial dimension having maximum SUV of 8.8 is identified in the left thyroid lobe, centered in the mid to lower portion. CHEST: Physiologic uptake in the heart and mediastinal blood pool. Lungs, tracheobronchial tree and pleura: Severe emphysema/COPD of the bilateral lungs, predominantly involving the bilateral upper lobes. Mild biapical subpleural scarring. A mildly spiculated nodule measuring approximately 11 x 1.3 cm, having maximum SUV of 3.8. No focal consolidation. No pneumothorax. No pleural effusion. Please note that PET/CT is not sensitive for pulmonary nodules less than 8 mm. Mediastinum and Lymph nodes: No hypermetabolic mediastinal lymphadenopathy. No hypermetabolic mediastinal mass. Mild uptake is noted in the right and left hilar with maximum SUV of 2.6 and 1.4 in the right and left respectively, likely related to small lymph nodes. Atherosclerotic vascular calcifications, including coronary artery calcifications are noted. Chest wall and axilla: No hypermetabolic lesions. No hypermetabolic axillary lymphadenopathy. ABDOMEN AND PELVIS: Physiologic uptake seen in the and GI tracts. Liver: No hypermetabolic mass. Biliary: No bile duct dilation. Spleen: No hypermetabolic mass. No splenomegaly. Pancreas: No hypermetabolic mass. Adrenals: No hypermetabolic lesions. Kidneys: No hydronephrosis, or hypermetabolic lesions. Small nonobstructing right upper pole renal calculus measuring 3 mm. GI tract: No dilation or wall thickening. Small hiatal hernia is noted. Lymph nodes: No hypermetabolic abdominal or pelvic lymphadenopathy. Mesentery/Peritoneum: No ascites or hypermetabolic mass lesions. Vasculature: Vascular patency cannot be assessed due to lack of IV contrast. There are atherosclerotic calcifications without aneurysmal dilation. Pelvis: No hypermetabolic mass, ascites or fluid collection. BONES AND EXTREMITIES: No suspicious FDG avid foci are detected. The imaged portions of the skeleton disclose age-related degenerative changes, with no detectable destructive lytic or sclerotic lesions to suggest metastases. - IMPRESSION: 1. NECK: Markedly hypermetabolic left thyroid nodule, suspicious for malignancy. Further evaluation with ultrasound is recommended. 2. CHEST: Mildly hypermetabolic, mildly spiculated right upper lobe lung nodule, highly suspicious for malignancy. Mild, nonspecific uptake in the bilateral katie; possibly related to presence of small lymph nodes, likely reactive lymph nodes. No hypermetabolic mediastinal lymphadenopathy. Emphysema/COPD. 3. ABDOMEN/PELVIS: No FDG avid neoplastic process. No mass, adenopathy, or fluid collection. 4. EXTREMITIES/SKELETON: No FDG avid osseous process. No destructive/traumatic bony abnormality. ACTIONABLE RESULT: FOLLOW-UP Acuity: Actionable Findings: Endocrine (thyroid) Routing Code: EMI_1 Recommendation: US THYROID/PARATHYROID Time Frame: non-urgent, but prompt follow-up. COMMUNICATION: Results will be communicated with the ordering provider via [employer] staff message or phone message by [employer] within 2 business days of report finalization. ========= Algorithms for management of incidental imaging findings can be found on the [facility] [employer]point site at: [email or web address].[facility].org/document [email or web address] %[email or web address]%20Findi ngs%20at%20Imaging/Forms/Al lItems.aspx Inspector Rough Castings: CORNELL Transcribe Date/Time: Jul 14 2020 8:39A Dictated by : JUAN SHEEHAN MD This examination was interpreted and the report reviewed and electronically signed by: JUAN SHEEHAN MD on Jul 14 2020 9:10AM EST [id number] ACTIONABLE Invalid Interpretation Code [facility] Vital Signs Date Time Vital Sign Value Performing Clinician Facility 08-29-2024 07:21-0400 Body mass index (BMI) [Ratio] 18.8 kg/m2 Dr. Alexander Steiner MD Work Phone: [facility] 08-29-2024 07:21-0400 Body weight 54.[address] Alexander Steiner MD Work Phone: 5(702)024-470181 [address] 08-29-2024 07:21-0400 Diastolic blood pressure 77 mm[Hg] Dr. Alexander Steiner MD Work Phone: 0(674)992-731381 [address] 08-29-2024 07:21-0400 Heart rate 93 /min Dr. Alexander Steiner MD Work Phone: 5(914)403-345993 [place] [address] 08-29-2024 07:21-0400 Respiratory rate 18 /min Dr. Alexander Steiner MD Work Phone: 8(732)998-405881 [address] 08-29-2024 07:21-0400 SaO2% (BldA) [Mass fraction] 97 % Dr. Alexander Steiner MD Work Phone: 8(135)068-768681 [address] 08-29-2024 07:21-0400 Systolic blood pressure 126 mm[Hg] Dr. Alexander Steiner MD Work Phone: 8(448)627-095039 [place] [address] 07-08-2024 11:09-0400 Body height 170.[address] Alexander Steiner MD Work Phone: 5(694)387-219439 [place] [address] 07-08-2024 11:09-0400 Body mass index (BMI) [Ratio] 19.1 kg/m2 Dr. Alexander Steiner MD Work Phone: 0(548)469-834439 [place] [address] 07-08-2024 11:09-0400 Body temperature 98.1 [degF] Dr. Alexander Steiner MD Work Phone: 2(015)987-862539 [place] [address] 07-08-2024 11:09-0400 Body weight 55.[address] Alexander Steiner MD Work Phone: 6(708)290-852539 [place] [address] 07-08-2024 11:09-0400 Diastolic blood pressure 72 mm[Hg] Dr. Alexander Steiner MD Work Phone: [facility] 07-08-2024 11:09-0400 Heart rate 83 /min Dr. Alexander Steiner MD Work Phone: [facility] 07-08-2024 11:09-0400 Respiratory rate 16 /min Dr. Alexander Steiner MD Work Phone: [facility] 07-08-2024 11:09-0400 SaO2% (BldA) [Mass fraction] 98 % Dr. Alexander Steiner MD Work Phone: [facility] 07-08-2024 11:09-0400 Systolic blood pressure 138 mm[Hg] Dr. Alexander Steiner MD Work Phone: [facility] 02-29-2024 11:32-0500 Body height 170.[address] Alejandro Machado DO Work Phone: [facility] 02-29-2024 11:32-0500 Body mass index (BMI) [Ratio] 20.2 kg/m2 Dr. Alejandro Machado DO Work Phone: [facility] 02-29-2024 11:32-0500 Body temperature 97.4 [degF] Dr. Alejandro Machado DO Work Phone: [facility] 02-29-2024 11:32-0500 Body weight 58.[address] Alejandro Machado DO Work Phone: [facility] 02-29-2024 11:32-0500 Diastolic blood pressure 73 mm[Hg] Dr. Alejandro Machado DO Work Phone: [facility] 02-29-2024 11:32-0500 Heart rate 76 /min Dr. Alejandro Machado DO Work Phone: [facility] 02-29-2024 11:32-0500 Respiratory rate 18 /min Dr. Alejandro Machado DO Work Phone: [facility] 02-29-2024 11:32-0500 SaO2% (BldA) [Mass fraction] 98 % Dr. Alejandro Machado DO Work Phone: [facility] 02-29-2024 11:32-0500 Systolic blood pressure 121 mm[Hg] Dr. Alejandro Machado DO Work Phone: [facility] 07-27-2023 10:00-0400 Body height 170.[address] Alexander Steiner Work Phone: [facility] 07-27-2023 10:00-0400 Body mass index (BMI) [Ratio] 20.4 kg/m2 Dr. Alexander Steiner Work Phone: [facility] 07-27-2023 10:00-0400 Body temperature 98.8 [degF] Dr. Alexander Steiner Work Phone: [facility] 07-27-2023 10:00-0400 Body weight 59.[address] Alexander Steiner Work Phone: [facility] 07-27-2023 10:00-0400 Diastolic blood pressure 75 mm[Hg] Dr. Alexander Steiner Work Phone: [facility] 07-27-2023 10:00-0400 Heart rate 91 /min Dr. Alexander Steiner Work Phone: [facility] 07-27-2023 10:00-0400 Respiratory rate 18 /min Dr. Alexander Steiner Work Phone: [facility] 07-27-2023 10:00-0400 SaO2% (BldA) [Mass fraction] 94 % Dr. Alexander Steiner Work Phone: [facility] 07-27-2023 10:00-0400 Systolic blood pressure 128 mm[Hg] Dr. Alexander Steiner Work Phone: [facility] 04-27-2023 09:27-0500 Body height 170.[address] Alexander Steiner Work Phone: [facility] 04-27-2023 09:27-0500 Body mass index (BMI) [Ratio] 20.3 kg/m2 Dr. Alexander Steiner Work Phone: [facility] 04-27-2023 09:27-0500 Body temperature 97.6 [degF] Dr. Alexander Steiner Work Phone: [facility] 04-27-2023 09:27-0500 Body weight 58.[address] Alexander Steiner Work Phone: 1(681)002-085839 [place] [address] 04-27-2023 09:27-0500 Diastolic blood pressure 68 mm[Hg] Dr. Alexander Steiner Work Phone: 8(535)175-696339 [place] [address] 04-27-2023 09:27-0500 Heart rate 83 /min Dr. Alexander Steiner Work Phone: 1(600)605-202839 [place] [address] 04-27-2023 09:27-0500 Respiratory rate 18 /min Dr. Alexander Steiner Work Phone: 5(897)473-029793 [place] [address] 04-27-2023 09:27-0500 SaO2% (BldA) [Mass fraction] 95 % Dr. Alexander Steiner Work Phone: 6(201)400-095639 [place] [address] 04-27-2023 09:27-0500 Systolic blood pressure 118 mm[Hg] Dr. Alexander Steiner Work Phone: 1(861)546-638881 [address] 02-23-2023 09:20-0500 Body height 170.[address] Alexander Steiner Work Phone: 9(870)517-049939 [place] [address] 02-23-2023 09:20-0500 Body mass index (BMI) [Ratio] 20.4 kg/m2 Dr. Alexander Steiner Work Phone: 0(518)619-630939 [place] [address] 02-23-2023 09:20-0500 Body temperature 98 [degF] Dr. Alexander Steiner Work Phone: 8(687)453-194639 [place] [address] 02-23-2023 09:20-0500 Body weight 59.[address] Alexander Steiner Work Phone: 7(674)721-522339 [place] [address] 02-23-2023 09:20-0500 Diastolic blood pressure 69 mm[Hg] Dr. Alexander Steiner Work Phone: 3(042)174-600939 [place] [address] 02-23-2023 09:20-0500 Heart rate 73 /min Dr. Alexander Steiner Work Phone: [facility] 02-23-2023 09:20-0500 Respiratory rate 16 /min Dr. Alexander Steiner Work Phone: [facility] 02-23-2023 09:20-0500 SaO2% (BldA) [Mass fraction] 96 % Dr. Alexander Steiner Work Phone: [facility] 02-23-2023 09:20-0500 Systolic blood pressure 122 mm[Hg] Dr. Alexander Steiner Work Phone: 5(366)525-704293 [place] [address] 01-18-2023 13:50-0400 Body mass index (BMI) [Ratio] 20.4 kg/m2 Dr. Alexander Steiner Work Phone: 5(937)970-534739 [place] [address] 01-18-2023 13:50-0400 Body temperature 97.8 [degF] Dr. Alexander Steiner Work Phone: 8(639)574-082493 [place] [address] 01-18-2023 13:50-0400 Body weight 59.[address] Alexander Steiner Work Phone: 0(626)328-141293 [place] [address] 01-18-2023 13:50-0400 Diastolic blood pressure 64 mm[Hg] Dr. Alexander Steiner Work Phone: 1(776)455-522593 [place] [address] 01-18-2023 13:50-0400 Heart rate 85 /min Dr. Alexander Steiner Work Phone: 4(850)713-343939 [place] [address] 01-18-2023 13:50-0400 Respiratory rate 18 /min Dr. Alexander Steiner Work Phone: [facility] 01-18-2023 13:50-0400 SaO2% (BldA) [Mass fraction] 95 % Dr. Alexander Steiner Work Phone: [facility] 01-18-2023 13:50-0400 Systolic blood pressure 135 mm[Hg] Dr. Alexander Steiner Work Phone: 4(183)173-453339 [place] [address] 12-12-2022 10:32-0400 Body mass index (BMI) [Ratio] 20.3 kg/m2 Dr. Alexander Steiner Work Phone: [facility] 12-12-2022 10:32-0400 Body temperature 97.2 [degF] Dr. Alexander Steiner Work Phone: [facility] 12-12-2022 10:32-0400 Body weight 59.[address] Alexander Steiner Work Phone: [facility] 12-12-2022 10:32-0400 Diastolic blood pressure 71 mm[Hg] Dr. Alexander Steiner Work Phone: [facility] 12-12-2022 10:32-0400 Heart rate 78 /min Dr. Alexander Steiner Work Phone: [facility] 12-12-2022 10:32-0400 Respiratory rate 18 /min Dr. Alexander Steiner Work Phone: [facility] 12-12-2022 10:32-0400 SaO2% (BldA) [Mass fraction] 96 % Dr. Alexander Steiner Work Phone: [facility] 12-12-2022 10:32-0400 Systolic blood pressure 154 mm[Hg] Dr. Alexander Steiner Work Phone: [facility] 12-02-2022 08:38-0400 Body temperature 98.01 [degF] Reji Goodrich MD Work Phone: [facility] 12-02-2022 08:38-0400 Diastolic blood pressure 65 mm[Hg] Reji Goodrich MD Work Phone: [facility] 12-02-2022 08:38-0400 Heart rate 67 /min Reji Goodrich MD Work Phone: [facility] 12-02-2022 08:38-0400 Respiratory rate 16 /min Reji Goodrich MD Work Phone: [facility] 12-02-2022 08:38-0400 SaO2% (BldA) [Mass fraction] 95 % Reji Goodrich MD Work Phone: [facility] 12-02-2022 08:38-0400 Systolic blood pressure 140 mm[Hg] Reji Goodrich MD Work Phone: [facility] 12-02-2022 06:09-0400 Body height 170.2 cm Reji Goodrich MD Work Phone: [facility] 12-02-2022 06:09-0400 Body mass index (BMI) [Ratio] 20.05 kg/m2 Reji Goodrich MD Work Phone: [facility] 12-02-2022 06:090400 Body weight 58.06 kg Reji Goodrich MD Work Phone: [facility] 11-04-2022 10:10-0400 Body height 170.2 cm [facility] Advanced Practice Provider [facility] 11-04-2022 10:10-0400 Body mass index (BMI) [Ratio] 20.42 kg/m2 [facility] Advanced Practice Provider [facility] 11-04-2022 10:10-0400 Body temperature 97.5 [degF] [facility] Advanced Practice Provider [facility] 11-04-2022 10:10-0400 Body weight 59.15 kg [facility] Advanced Practice Provider [facility] 11-04-2022 10:10-0400 Diastolic blood pressure 55 mm[Hg] [facility] Advanced Practice Provider [facility] 11-04-2022 10:10-0400 Heart rate 75 /min [facility] Advanced Practice Provider [facility] 11-04-2022 10:10-0400 Respiratory rate 16 /min [facility] Advanced Practice Provider [facility] 11-04-2022 10:10-0400 SaO2% (BldA) [Mass fraction] 95 % [facility] Advanced Practice Provider [facility] 11-04-2022 10:10-0400 Systolic blood pressure 119 mm[Hg] [facility] Advanced Practice Provider [facility] 08-26-2022 09:54-0400 Body temperature 96.2 [degF] Dr. Alexander Steiner Work Phone: [facility] 08-26-2022 09:54-0400 Diastolic blood pressure 48 mm[Hg] Dr. Alexander Steiner Work Phone: [facility] 08-26-2022 09:54-0400 Heart rate 65 /min Dr. Alexander Steiner Work Phone: [facility] 08-26-2022 09:54-0400 Respiratory rate 16 /min Dr. Alexander Steiner Work Phone: [facility] 08-26-2022 09:54-0400 SaO2% (BldA) [Mass fraction] 99 % Dr. Alexander Steiner Work Phone: [facility] 08-26-2022 09:54-0400 Systolic blood pressure 123 mm[Hg] Dr. Alexander Steiner Work Phone: [facility] 08-26-2022 09:17-0400 Body height 170.[address] Alexander Steiner Work Phone: [facility] 08-26-2022 09:17-0400 Body mass index (BMI) [Ratio] 20.3 kg/m2 Dr. Alexander Steiner Work Phone: [facility] 08-26-2022 09:17-0400 Body weight 58.[address] Alexander Steiner Work Phone: [facility] 07-05-2022 09:50-0400 Body height 170.[address] Alexander Steiner Work Phone: [facility] 07-05-2022 09:50-0400 Body mass index (BMI) [Ratio] 21 kg/m2 Dr. Alexander Steiner Work Phone: [facility] 07-05-2022 09:50-0400 Body temperature 98.2 [degF] Dr. Alexander Steiner Work Phone: [facility] 07-05-2022 09:50-0400 Body weight [address] Alexander Steiner Work Phone: [facility] 07-05-2022 09:50-0400 Diastolic blood pressure 64 mm[Hg] Dr. Alexander Steiner Work Phone: 0(744)450-830939 [place] [address] 07-05-2022 09:50-0400 Heart rate 93 /min Dr. Alexander Steiner Work Phone: 0(706)522-336939 [place] [address] 07-05-2022 09:50-0400 Respiratory rate 20 /min Dr. Alexander Steiner Work Phone: 4(320)148-224839 [place] [address] 07-05-2022 09:50-0400 SaO2% (BldA) [Mass fraction] 92 % Dr. Alexander Steiner Work Phone: 5(995)916-638639 [place] [address] 07-05-2022 09:50-0400 Systolic blood pressure 124 mm[Hg] Dr. Alexander Steiner Work Phone: 6(085)128-348139 [place] [address] 04-26-2022 08:31-0500 Body mass index (BMI) [Ratio] 21.2 kg/m2 Dr. Alexander Steiner Work Phone: 6(913)684-675339 [place] [address] 04-26-2022 08:31-0500 Body weight 61.[address] Alexander Steiner Work Phone: 5(758)359-381039 [place] [address] 04-26-2022 08:31-0500 Diastolic blood pressure 68 mm[Hg] Dr. Alexander Steiner Work Phone: 6(978)004-377839 [place] [address] 04-26-2022 08:31-0500 Heart rate 92 /min Dr. Alexander Steiner Work Phone: 2(192)599-195439 [place] [address] 04-26-2022 08:31-0500 Respiratory rate 16 /min Dr. Alexander Steiner Work Phone: [facility] 04-26-2022 08:31-0500 Systolic blood pressure 134 mm[Hg] Dr. Alexander Steiner Work Phone: 1(015)910-094839 [place] [address] 11-10-2021 11:46-0400 Body height 170.2 cm Micah Trinh MD Work Phone: [facility] 11-10-2021 11:46-0400 Body mass index (BMI) [Ratio] 20.74 kg/m2 Micah Trinh MD Work Phone: [facility] 11-10-2021 11:46-0400 Body temperature 97.3 [degF] Micah Trinh MD Work Phone: [facility] 11-10-2021 11:46-0400 Body weight 60.06 kg Micah Trinh MD Work Phone: [facility] 11-10-2021 11:46-0400 Diastolic blood pressure 64 mm[Hg] Micah Trinh MD Work Phone: [facility] 11-10-2021 11:46-0400 Heart rate 87 /min Micah Trinh MD Work Phone: [facility] 11-10-2021 11:46-0400 Respiratory rate 16 /min Micah Trinh MD Work Phone: [facility] 11-10-2021 11:46-0400 SaO2% (BldA) [Mass fraction] 96 % Micah Trinh MD Work Phone: [facility] 11-10-2021 11:46-0400 Systolic blood pressure 136 mm[Hg] Micah Trinh MD Work Phone: [facility] 08-26-2021 13:42-0400 Body height 170.18 cm [facility] Work Phone: 08-26-2021 13:42-0400 Body mass index (BMI) [Ratio] 20.7 kg/m2 [facility] Work Phone: 08-26-2021 13:42-0400 Body temperature 98 [degF] [facility] Work Phone: 08-26-2021 13:42-0400 Body weight 59.87 kg [facility] Work Phone: 08-26-2021 13:42-0400 Diastolic blood pressure 60 mm[Hg] [facility] Work Phone: 08-26-2021 13:42-0400 Heart rate 86 /min [facility] Work Phone: 08-26-2021 13:42-0400 Respiratory rate 16 /min [facility] Work Phone: 08-26-2021 13:42-0400 SaO2% (BldA) [Mass fraction] 94 % [facility] Work Phone: 08-26-2021 13:42-0400 Systolic blood pressure 141 mm[Hg] [facility] Work Phone: 04-20-2021 07:12-0500 Body height 170.[address] Alexander Steiner Work Phone: [facility] Work Phone: 04-20-2021 07:12-0500 Body weight 62.[address] Alexander Steiner Work Phone: [facility] Work Phone: 04-20-2021 07:12-0500 Diastolic blood pressure 75 mm[Hg] Dr. Alexander Steiner Work Phone: [facility] Work Phone: 04-20-2021 07:12-0500 Heart rate 79 /min Dr. Alexander Steiner Work Phone: [facility] Work Phone: 04-20-2021 07:12-0500 Respiratory rate 18 /min Dr. Alexander Steiner Work Phone: [facility] Work Phone: 04-20-2021 07:12-0500 SaO2% (BldA) [Mass fraction] 98 % Dr. Alexander Steiner Work Phone: [facility] Work Phone: 04-20-2021 07:12-0500 Systolic blood pressure 135 mm[Hg] Dr. Alexander Steiner Work Phone: [facility] Work Phone: 11-11-2020 16:08-0400 Body mass index (BMI) [Ratio] 20.31 kg/m2 Micah Trinh MD Work Phone: [facility] 11-11-2020 16:08-0400 Body temperature 97.9 [degF] Micah Trinh MD Work Phone: [facility] 11-11-2020 16:08-0400 Body weight 58.83 kg Micah Trinh MD Work Phone: [facility] 11-11-2020 16:08-0400 Diastolic blood pressure 72 mm[Hg] Micah Trinh MD Work Phone: [facility] 11-11-2020 16:08-0400 Heart rate 81 /min Micah Trinh MD Work Phone: [facility] 11-11-2020 16:08-0400 Respiratory rate 18 /min Micah Trinh MD Work Phone: [facility] 11-11-2020 16:08-0400 SaO2% (BldA) [Mass fraction] 96 % Micah Trinh MD Work Phone: [facility] 11-11-2020 16:08-0400 Systolic blood pressure 150 mm[Hg] Micah Trinh MD Work Phone: [facility] 11-11-2020 15:12-0400 Diastolic blood pressure 73 mm[Hg] Ingrid VILLAGRANC Work Phone: [facility] 11-11-2020 15:12-0400 Systolic blood pressure 145 mm[Hg] Ingrid Lebron PA-C Work Phone: [facility] 10-14-2020 14:590400 Body mass index (BMI) [Ratio] 20.3 kg/m2 Dr. Alexander Steiner Work Phone: [facility] Work Phone: Encounters Encounter Date Encounter Type Care Provider Facility Start: 2024 ambulatory [facility] Facility:[facility] Start: 09-19-2024 ambulatory Alexander [facility] Facility:[facility] Start: 09-11-2024 ambulatory [facility] Facility:[facility] Start: 08-29-2024 End: 08-29-2024 Patient encounter procedure Laura TRUJILLO -[facility] Work Phone: Start: 08-29-2024 End: 08-29-[address] Alexander Steiner MD Work Phone: [facility] Work Phone: Start: 08-22-2024 End: 08-22-2024 Non-patient / Non-visit Dr. Sánchez Pena MD -[facility] Work Phone: Start: 08-22-2024 End: 08-22-[address] Alexander Steiner MD Work Phone: [facility] Work Phone: Start: 08-22-2024 End: 08-22-[address] Alexander Steiner MD -Cardiovascular Services Work Phone: Start: 08-22-2024 End: 08-22-2024 ambulatory [facility] Facility:[facility] Start: 08-12-2024 End: 08-12-[address] Alexander Steiner MD -Laboratory Work Phone: Start: 08-12-2024 End: 08-12-2024 ambulatory [facility] Facility:[facility] Start: 07-08-2024 End: 07-08-[address] Alejandro Machado DO -[facility] Work Phone: Start: 07-08-2024 End: 07-08-2024 ambulatory Alejandro Machado Facility:[facility] Start: 06-27-2024 End: 06-27-[address] Alexander Steiner MD Work Phone: [facility] Work Phone: Start: 06-27-2024 End: 06-27-[address] Alejandro Machado DO -Cat Scan, [facility] Work Phone: Start: 06-27-2024 End: 06-27-2024 ambulatory Alejandro Cartre Facility:[facility] Start: 05-28-2024 End: 05-28-[address] Alejandro Machado DO Work Phone: [facility] Work Phone: Start: 05-28-2024 End: 05-28-[address] Alexander Steiner MD -Radiology, [facility] Work Phone: Start: 05-28-2024 End: 05-28-2024 ambulatory [facility] Facility:[facility] Start: 05-14-2024 End: 05-14-[address] Micah Jimenez MD -Laboratory Work Phone: Start: 05-14-2024 End: 05-14-2024 ambulatory Micah Jimenez Facility:[facility] Start: 04-12-2024 End: 04-12-[address] Alexander Steiner MD -Laboratory, Phy Office 3rd Flr Start: 04-12-2024 End: 04-12-2024 ambulatory [facility] Facility:[facility] Start: 03-26-2024 End: 03-26-[address] Alexander Steiner MD -Laboratory, Phy Office 3rd Flr Start: 03-26-2024 End: 03-26-2024 ambulatory [facility] Facility:[facility] Start: 03-06-2024 End: 03-06-[address] Alexander Steiner MD -Laboratory, Phy Office 3rd Flr Start: 03-06-2024 End: 03-06-2024 ambulatory Alexander [place] Facility:[facility] Start: 02-29-2024 End: 02-29-[address] Alejandro Machado DO -[facility] Work Phone: Start: 02-29-2024 End: 02-29-2024 ambulatory Alejandro Machado Facility:[facility] Start: 02-26-2024 End: 02-26-[address] Alejandro Machado DO -[facility] Work Phone: Start: 02-26-2024 End: 02-26-2024 ambulatory Alejandro Carter Facility:[facility] Start: 02-19-2024 End: 02-19-[address] Gregory Rodriguez MD -[facility] Work Phone: Start: 02-19-2024 End: 02-19-2024 ambulatory Gregory Rodriguez Facility:[facility] Start: 11-28-2023 End: 11-28-2023 ambulatory Alejandro Machado Facility:[facility] Start: 11-23-2023 End: 11-23-2023 ambulatory Alejandro Machado Facility:[facility] Start: 11-21-2023 End: 11-21-2023 ambulatory Alexander [place] Facility:[facility] Start: 10-31-2023 End: 10-31-2023 ambulatory Alexander [place] Facility:[facility] Start: 10-26-2023 ambulatory [facility] [place] [facility] Start: 10-25-2023 End: 10-25-2023 ambulatory Micah V Sibilia Facility:[facility] Start: 10-20-2023 End: 10-21-2023 ambulatory Alexander [place] Facility:[facility] Start: 10-11-2023 End: 10-11-2023 ambulatory Alexander [place] Facility:[facility] Start: 10-11-2023 End: 10-11-2023 ambulatory Alexander [place] Facility:[facility] Start: 10-10-2023 End: 10-10-2023 ambulatory Alexander [place] Facility:[facility] Start: 10-05-2023 ambulatory Mena Ghazoul Facility :[facility] Start: 10-05-2023 End: 10-05-2023 ambulatory Mena Ghazoul Facility:[facility] Start: 10-04-2023 End: 10-04-2023 ambulatory Alexander [place] Facility:[facility] Start: 10-03-2023 End: 10-03-2023 ambulatory Alexander Steiner Facility:[facility] Start: 07-27-2023 End: 07-27-[address] Alexander Steiner Work Phone: [facility] Work Phone: Start: 07-24-2023 End: 07-24-[address] Alexander Steiner Work Phone: [facility] Work Phone: Start: 07-24-2023 End: 07-24-[address] Alexander Steiner Work Phone: [facility] Work Phone: Start: 04-27-2023 End: 04-27-[address] Alexander Steiner Work Phone: [facility] Work Phone: Start: 04-24-2023 End: 04-24-[address] Alexander Steiner Work Phone: [facility] Work Phone: Start: 04-24-2023 End: 04-24-[address] Alexander Steiner Work Phone: [facility] Work Phone: Start: 04-04-2023 End: 04-04-[address] Alexander Steiner Work Phone: [facility] Work Phone: Start: 04-04-2023 End: 04-04-[address] Alexander Steiner Work Phone: [facility]-Laboratory Work Phone: Start: 03-06-2023 End: 03-06-[address] Alexander Steiner Work Phone: [facility] Work Phone: Start: 03-06-2023 End: 03-06-[address] [facility] Work [facility]: Start: 03-03-2023 End: 03-03-[address] Alexander Steiner Work Phone: [facility] Work Phone: Start: 03-03-2023 End: 03-03-[address] Alexander Steiner Work Phone: [facility], y Office 3rd Flr Start: 03-02-2023 End: 03-02-[address] Alexander Steiner Work Phone: [facility] Work Phone: Start: 03-02-2023 End: 03-02-[address] Alexander Steiner Work Phone: [facility] y Office 3rd Flr Start: 02-23-2023 End: 02-23-[address] Alexander Steiner Work Phone: [facility] Work Phone: Start: 01-26-2023 Non-patient / Non-visit Dr. Emmett Steiner Work Phone: [facility] Work Phone: Start: 01-26-[address] Alexander gonzalez Work Phone: [facility]-Radiation Oncology Start: 01-24-2023 Non-patient / Non-visit Dr. Emmett Steiner Work Phone: [facility] Work Phone: Start: 01-20-2023 Non-patient / Non-visit Dr. Emmett Steiner Work Phone: [facility] Work Phone: Start: 01-18-2023 End: 01-18-[address] Alexander Steiner Work Phone: [facility] Work Phone: Start: 01-16-2023 Non-patient / Non-visit Dr. Emmett Steiner Work Phone: [facility] Work Phone: Start: 01-11-2023 Non-patient / Non-visit Dr. Emmett Steiner Work Phone: [facility] Start: 01-10-2023 Non-patient / Non-visit Dr. Emmett Steiner Work Phone: [facility] Start: 01-04-2023 Non-patient / Non-visit Dr. Emmett Steiner Work Phone: [facility] Start: 01-02-[address] Brandi Steiner Work Phone: [facility] Start: 12-12-2022 End: 12-12-[address] Alexander Steiner Work Phone: [facility] Work Phone: Start: 12-02-2022 End: 12-02-2022 Subsequent hospital visit by physician Reji Goodrich MD Work Phone: Department of Radiology Comment on above: Arrived Start: 12-02-2022 End: 12-02-2022 Subsequent hospital visit by physician Reji Goodrich MD Work Phone: Department of Radiology Comment on above: Arrived Start: 11-04-[address] [facility] [facility] Start: 11-04-2022 End: 11-04-2022 Office outpatient visit 15 minutes Dean Bedoya [employer] Work Phone: Division of Thoracic Surgery at [facility] Comment on above: Lung nodule (Primary Dx) Start: 11-01-2022 End: 11-01-2022 ambulatory [facility] Work Phone: Start: 11-01-2022 End: 11-01-2022 Patient encounter procedure [facility]-Laboratory, Phy Office 3rd Flr Start: 08-31-2022 End: 08-31-2022 Patient encounter procedure [facility]Labor[facility] Work Phone: Start: 08-26-2022 End: 08-26-[address] Alexander Steiner Work Phone: [facility] Work Phone: Start: 08-26-2022 End: 08-26-[address] Alexander Steiner Work Phone: [facility]-Medical Out Start: 08-09-2022 End: 08-09-[address] Alexander Steiner Work Phone: [facility]-Outpatient Bone Densitometry Start: 07-16-2022 End: 07-16-[address] Alexander Steiner Work Phone: [facility] Work Phone: Start: 07-16-2022 End: 07-16-[address] Alexander Steiner Work Phone: [facility]-Laboratory Start: 07-05-2022 End: 07-05-[address] Alexander Steiner Work Phone: [facility] Endocr[facility] Start: 04-26-2022 End: 04-26-[address] Alexander Steiner Work Phone: [facility] Start: 11-10-2021 End: 11-10-2021 Office outpatient visit 15 minutes Micah Trinh MD Work Phone: Division of Thoracic Surgery at [facility] Comment on above: Lung nodule (Primary Dx) Start: 11-10-2021 End: 11-10-2021 Subsequent hospital visit by physician Delia Mccauley [employer] Work Phone: [facility] Comment on above: Arrived Start: 08-26-2021 Patient encounter procedure [facility]-Medical Out Start: 08-25-2021 End: 08-25-2021 Patient encounter procedure [facility]-Laboratory, Phy Office 3rd Flr Start: 07-09-2021 End: 07-09-[address] Alexander Steiner [facility] Start: 05-11-2021 End: 05-11-[address] Alexander Steiner [facility] Start: 04-20-2021 End: 04-20-[address] Alexander Steiner Work Phone: [facility] Start: 11-11-2020 End: 11-11-2020 Office outpatient visit 15 minutes Micah Trinh MD Work Phone: Division of Thoracic Surgery at [facility] Comment on above: Solitary lung nodule (Primary Dx) Start: 11-11-2020 End: 11-11-2020 Subsequent hospital visit by physician Ingrid Lebron PA-C Work Phone: [facility] Comment on above: Arrived Start: 10-14-[address] Brandi Steiner Work Phone: [facility] Start: 10-14-[address] Alejandro kothari DO Work Phone: [facility] Start: 08-31-2020 End: 08-31-2020 ambulatory [facility] Procedures Date Procedure Procedure Detail Performing Clinician Start: 06-27-2024 CT of thorax with contrast Dr. Alexander Steiner MD Work Phone: Start: 05-28-2024 SARS-CoV-2, Influenz a & RSV (PCR) Dr. Alejandro Machado DO Work Phone: Start: 05-28-2024 X-ray of chest, PA a nd lateral views Dr. Alejandro Machado DO Work Phone: Start: 04-12-2024 SARS-CoV-2, Influenz a & RSV (PCR) Dr. Alejandro Machado DO Work Phone: Start: 04-12-2024 X-ray of chest, PA a nd lateral views Dr. Alejandro Machado DO Work Phone: Start: 03-26-2024 SARS-CoV-2, Influenz a & RSV (PCR) Dr. Alejandro Machado DO Work Phone: Start: 02-26-2024 CT of chest without contrast Dr. Alejandro Machado DO Work Phone: Start: 07-24-2023 CT of chest without contrast Dr. Alexander Steiner Work Phone: Start: 04-24-2023 CT of chest without contrast Dr. Alexander Steiner Work Phone: Start: 03-06-2023 Measurement of occul t blood in stool specimen using immunoassay Dr. Alexander Steiner Work Phone: Start: 12-27-2022 PET study for locali zation of tumor Dr. Alexander Steiner Work Phone: Start: 12-02-2022 Radiologic exam ches t single view Leeanne Leroy MD Work Phone: Start: 12-02-2022 GENERAL PROCEDURE Donald Goodrich MD Work Phone: Start: 12-02-2022 End: 12-02-2022 Blood count complete automated Debbie Olvera SUEDE CLEANER-CAUSTICISER Work Phone: Start: 11-04-2022 Follow-up visit Follow-up DEAN BEDOYA Start: 08-09-2022 Dual energy X-ray absorptiometry Dr. Alexander Steiner Work Phone: Start: 11-10-2021 Ct thorax w/o contra st material Delia Mccauley [employer]E CLE[employer] Work Phone: Start: 11-11-2020 Ct thorax w/contrast material Ingrid Lerbon PA-C Work Phone: Start: 11-11-2020 Creatinine blood Ingrid Lebron PA-C Work Phone: Plan of Treatment Date Care Activity Detail Author Start: 11-14-2024 Tetanus vaccination TETANUS [facility] Start: 11-05-2023 Screening for malign ant neoplasm of lung LUNG CANCER SCREENING [facility] Start: 11-25-2022 Influenza vaccination INFLUENZA VACC INE (#1) [facility] Start: 11-10-2022 Screening for malign ant neoplasm of lung LUNG CANCER SCREENING [facility] Start: 11-04-2022 End: 11-04-2022 Patient encounter procedure [facility] Start: 08-26-2022 Iv infusion therapy/prophylaxis /dx 1st to 1 hr THER/PROPH/DIAG IV INF [facility] Start: 04-10-2022 COVID-19 VACCINE (4 - Pfizer series) COVID-19 VACCINE (4 - Pfizer series) [facility] Start: 11-25-2021 Influenza vaccination INFLUENZA VACC INE (#1) [facility] Start: 11-11-2021 Screening for malign ant neoplasm of lung LUNG CANCER SCREENING [facility] Start: 11-10-2021 End: 11-10-2022 CT Chest WO contrast CT CHEST WITHOUT CONTRAST Imaging Routine Lung nodule Expected: 11/10/2021, Expires: 11/10/2022 [facility] Comment on above: Expected: 11/10/2021 , Expires: 11/10/2022 Start: 05-12-2021 End: 05-12-2021 Patient encounter procedure [facility] Start: 11-25-2020 Influenza vaccination INFLUENZA VACC INE (#1) [facility] Start: 11-14-2020 COVID-19 VACCINE (3 - Booster for Pfizer series) COVID-19 VACCINE (3 - Booster for Pfizer series) [facility] Start: 11-11-2020 End: 11-11-[address] CHEST WITHOUT CONTRAST Imaging Routine Solitary lung nodule Expected: 11/11/2020, Expires: 11/11/2021 [facility] Work Phone: Comment on above: Expected: 11/11/2020 , Expires: 11/11/2021 Start: 11-30-2018 Pneumococcal vaccination PNEUM OCOCCAL VACCINE SERIES (2 - PCV) [facility] Start: 09-25-2007 Pneumococcal vaccination [facility] Start: 1992 Zoster vaccine hzv l cb for subcutaneous use ZOSTER (SHINGLES) VACCINE (1 of 2) [facility] Start: 09-25-1987 Colonoscopy COLORECTAL CAN CER SCREENING DISCUSSION [facility] Start: 09-25-1987 Screening for malign ant neoplasm of colon COLORECTAL CANCER SCREENING DISCUSSION [facility] Start: 1961 Third diphtheria, tetanus and acellular pertussis (DTaP) vaccination TDAP (ADULT) [facility] Start: 1960 Tetanus vaccination TETANUS [facility] Start: 1940 Hepatitis C antibody , confirmatory test HEPATITIS C VIRUS SCREENING [facility] Start: 1940 Potassium [Moles/vol ume] in Serum or Plasma POTASSIUM [facility] Start: 1940 Thyroid stimulating hormone measurement TSH [facility] CT Chest W contrast IV [facility] CT Chest W contrast IV [facility] CT Chest WO contrast [facility] CT Chest WO contrast [facility] CT Chest WO contrast [facility] End: 12-02-2022 CT Guidance for biopsy of Mediastinum [facility] Work Phone: Comment on above: 1 Occurrences starti ng 12/02/2022 until 12/02/2022 DXA Bone [Mass/Area] Bone density [facility] Positron emission tomography with computed tomography [facility] SURG PATH REQUEST [facility] Comment on above: Release Upon Colleenin g for 1 Occurrences starting 12/02/2022, 1 completed T4 free measurement [facility] Thyroid stimulating hormone measurement [facility] Vitamin D, 25-hydrox y measurement [facility] Immunizations Immunization Date Immunization Notes Care Provider Paddy roberts 12-08-2021 influenza virus vaccine, unspecified formulation [facility] Cts Advanced Practice Provider [facility] 06-14-2020 SARS-COV-2 (COVID-19 ), Mrna, Lnp-s, Pf, 30 Mcg/0.3 Ml Dose PFIZER Ingrid Lebron PA-C Work Phone: [facility] 05-25-2020 SARS-COV-2 (COVID-19 ), Mrna, Lnp-s, Pf, 30 Mcg/0.3 Ml Dose PFIZER Ingrid Lebron PA-C Work Phone: [facility] 01-06-2020 influenza virus vaccine, unspecified formulation Delia Garrick [employer]E CLE[employer]ER[employer]ER Work Phone: [facility] Payers Date Payer Category Payer Self-pay [id number] 2020 Medicare MEDICARE [employer] HMO PPO MEDICARE [employer] HMO PPO [id number] 2020-Present [address] [address] [place] [address] [id number] 2020 Medicare MEDICARE [employer] HMO PPO MEDICARE [employer] HMO PPO [id number] 2020-Present [address] [place] [address] [id number] 2013 Private Health Insurance [id number] 2007 Medicare [id number] 1940 Unknown [id number] .594 1940 Unknown [id number] 2.16.840.1.138886.3.579.2 .594 Unknown [id number] 2..840.1.414691.3.579.2 .462 Unknown [id number] 2..840.1.329471.3.579.2 .462 Unknown [id number] 2..840.1.864771.3.579.2 .462 Unknown [id number] 2.840.1.304007.3.579.2 .462 Unknown [id number] 2.840.1.794111.3.579.2 .462 Unknown [id number] 2.840.1.221811.3.579.2 .462 Unknown [id number] 2.840.1.635614.3.579.2 .462 Unknown [id number] 2.840.1.296164.3.579.2 .462 Unknown [id number] 2.840.1.804027.3.579.2 .462 Unknown [id number] 2.840.1.193683.3.579.2 .462 Unknown [id number] 2.840.1.542923.3.579.2 .462 Unknown [id number] 2.840.1.527847.3.579.2 .462 Unknown [id number] 2.840.1.177876.3.579.2 .462 Unknown [id number] 2.840.1.880598.3.579.2 .462 Unknown [id number] 2.840.1.216054.3.579.2 .462 Unknown [id number] 2.840.1.202792.3.579.2 .462 Unknown [id number] 2.840.1.477094.3.579.2 .462 Unknown [id number] 2.840.1.554740.3.579.2 .462 Unknown [id number] 2.16840.1.030977.3.579.2 .462 Unknown [id number] 2.16840.1.499614.3.579.2 .462 Unknown [id number] 2.16840.1.659501.3.579.2 .462 Unknown [id number] 2.840.1.696187.3.579.2 .462 Unknown [id number] 2.840.1.976308.3.579.2 .462 Unknown [id number] 2.840.1.125101.3.579.2 .462 Unknown [id number] 2.840.1.793192.3.579.2 .462 Unknown [id number] 2.840.1.872019.3.579.2 .462 Unknown [id number] 2.840.1.018812.3.579.2 .462 Unknown [id number] 2.840.1.556587.3.579.2 .462 Unknown [id number] 2.840.1.360051.3.579.2 .462 Unknown [id number] 2.840.1.680228.3.579.2 .462 Unknown [id number] 2.840.1.459780.3.579.2 .462 Unknown [id number] 2.840.1.110452.3.579.2 .462 Unknown [id number] 2.840.1.790367.3.579.2 .462 Unknown [id number] 2.840.1.233450.3.579.2 .462 Unknown [id number] 2.840.1.283787.3.579.2 .462 Unknown [id number] 2.840.1.204158.3.579.2 .462 Social History Date Type Detail Facility Start: 09-03-2020 End: 10-04-2023 Tobacco smoking status NHIS Former smoker [facility] End: 04-27-2012 History of tobacco use Current smoker [facility] End: 04-27-2012 History of tobacco use Cigarette Smoker [facility] Start: 09-03-2020 End: 11-04-2022 Cigarettes smoked current (pack per day) - Reported [facility] Start: 09-03-2020 End: 11-04-2022 Tobacco use and exposure Current user [facility] History of tobacco use Snuff User [facility] History of tobacco use Chews Tobacco [facility] Start: 11-11-2020 End: 11-04-2022 Alcohol intake Ex-drinker (finding) [facility] Start: 11-11-2020 History SDOH Financial 5 [facility] Start: 11-11-2020 History SDOH Food Worry 1 [facility] Start: 11-11-2020 History SDOH Transpo rt Med 2 [facility] Start: 09-09-2020 Tobacco Comment 09/09/20- 1 pac k of chewing tobacco in a 1-1.5/week? [facility] Start: 1940 Sex Assigned At Not on file [facility] Exposure to SARS-CoV -2 (event) Not sure [facility] Start: 04-20-2021 End: 07-05-2022 Tobacco smoking status NHIS Unknown if ever smoked [facility] Start: 05-25-2019 Spouse/ Signif icant Other [facility] Start: 1940 Sex Assigned At Male [facility] Start: 11-10-2021 End: 11-04-2022 Tobacco Comment 11/10/2021- 1 pack of chewing tobacco in a 1-1.5/week? [facility] Start: 11-19-2021 End: 11-04-2022 Tobacco use panel [facility] How hard is it for y ou to pay for the very basics like food, housing, medical care, and heating Not hard at all [facility] (I/We) worried wheth er (my/our) food would run out before (I/we) got money to buy more. Never true [facility] Start: 06-07-2024 End: 07-03-2024 Sex Male (finding) [facility] Medical Equipment Procedure Code Equipment Code Equipment Origin al Text Equipment Identifier Dates Thyroidectomy DRESSING,FIBRILL AR 1X2 1960 FDA Start: 10-26-2020 Thyroidectomy SUTURE,LIGA CLIP MED LT200 FDA Start: 10-26-2020 Thyroidectomy SUTURE,LIGA CLIP MED LT200 FDA Start: 10-26-2020 Thyroidectomy SUTURE,LIGA CLIP SM LT-100 FDA Start: 10-26-2020 Thyroidectomy DRESSING,FIBRILL AR 1X2 1960 FDA Start: 10-26-2020 Thyroidectomy SUTURE,LIGA CLIP MED LT200 FDA Start: 10-26-2020 Thyroidectomy SUTURE,LIGA CLIP MED LT200 FDA Start: 10-26-2020 Thyroidectomy SUTURE,LIGA CLIP SM LT-100 FDA Start: 10-26-2020 Thyroidectomy DRESSING,FIBRILL AR 1X2 1960 FDA Start: 10-26-2020 Thyroidectomy SUTURE,LIGA CLIP MED LT200 FDA Start: 10-26-2020 Thyroidectomy SUTURE,LIGA CLIP MED LT200 FDA Start: 10-26-2020 Thyroidectomy SUTURE,LIGA CLIP SM LT-100 FDA Start: 10-26-2020 Thyroidectomy DRESSING,FIBRILL AR 1X2 1960 FDA Start: 10-26-2020 Thyroidectomy SUTURE,LIGA CLIP MED LT200 FDA Start: 10-26-2020 Thyroidectomy SUTURE,LIGA CLIP MED LT200 FDA Start: 10-26-2020 Thyroidectomy SUTURE,LIGA CLIP SM LT-100 FDA Start: 10-26-2020 Thyroidectomy DRESSING,FIBRILL AR 1X2 1960 FDA Start: 10-26-2020 Thyroidectomy SUTURE,LIGA CLIP MED LT200 FDA Start: 10-26-2020 Thyroidectomy SUTURE,LIGA CLIP MED LT200 FDA Start: 10-26-2020 Thyroidectomy SUTURE,LIGA CLIP SM LT-100 FDA Start: 10-26-2020 Thyroidectomy DRESSING,FIBRILL AR 1X2 1960 FDA Start: 10-26-2020 Thyroidectomy SUTURE,LIGA CLIP MED LT200 FDA Start: 10-26-2020 Thyroidectomy SUTURE,LIGA CLIP MED LT200 FDA Start: 10-26-2020 Thyroidectomy SUTURE,LIGA CLIP SM LT-100 FDA Start: 10-26-2020 Thyroidectomy DRESSING,FIBRILL AR 1X2 1 FDA Start: 10-26-2020 Thyroidectomy SUTURE,LIGA CLIP MED LT200 FDA Start: 10-26-2020 Thyroidectomy SUTURE,LIGA CLIP MED LT200 FDA Start: 10-26-2020 Thyroidectomy SUTURE,LIGA CLIP SM LT-100 FDA Start: 10-26-2020 Thyroidectomy DRESSING,FIBRILL AR 1X2 1960 FDA Start: 10-26-2020 Thyroidectomy SUTURE,LIGA CLIP MED LT200 FDA Start: 10-26-2020 Thyroidectomy SUTURE,LIGA CLIP MED LT200 FDA Start: 10-26-2020 Thyroidectomy SUTURE,LIGA CLIP SM LT-100 FDA Start: 10-26-2020 Thyroidectomy DRESSING,FIBRILL AR 1X2 1960 FDA Start: 10-26-2020 Thyroidectomy SUTURE,LIGA CLIP MED LT200 FDA Start: 10-26-2020 Thyroidectomy SUTURE,LIGA CLIP MED LT200 FDA Start: 10-26-2020 Thyroidectomy SUTURE,LIGA CLIP SM LT-100 FDA Start: 10-26-2020 Thyroidectomy DRESSING,FIBRILL AR 1X2 1960 FDA Start: 10-26-2020 Thyroidectomy SUTURE,LIGA CLIP MED LT200 FDA Start: 10-26-2020 Thyroidectomy SUTURE,LIGA CLIP MED LT200 FDA Start: 10-26-2020 Thyroidectomy SUTURE,LIGA CLIP SM LT-100 FDA Start: 10-26-2020 Thyroidectomy DRESSING,FIBRILL AR 1X2 1960 FDA Start: 10-26-2020 Thyroidectomy SUTURE,LIGA CLIP MED LT200 FDA Start: 10-26-2020 Thyroidectomy SUTURE,LIGA CLIP MED LT200 FDA Start: 10-26-2020 Thyroidectomy SUTURE,LIGA CLIP SM LT-100 FDA Start: 10-26-2020 Thyroidectomy DRESSING,FIBRILL AR 1X2 1960 FDA Start: 10-26-2020 Thyroidectomy SUTURE,LIGA CLIP MED LT200 FDA Start: 10-26-2020 Thyroidectomy SUTURE,LIGA CLIP MED LT200 FDA Start: 10-26-2020 Thyroidectomy SUTURE,LIGA CLIP SM LT-100 FDA Start: 10-26-2020 Thyroidectomy DRESSING,FIBRILL AR 1X2 1960 FDA Start: 10-26-2020 Thyroidectomy SUTURE,LIGA CLIP MED LT200 FDA Start: 10-26-2020 Thyroidectomy SUTURE,LIGA CLIP MED LT200 FDA Start: 10-26-2020 Thyroidectomy SUTURE,LIGA CLIP SM LT-100 FDA Start: 10-26-2020 Thyroidectomy DRESSING,FIBRILL AR 1X2 1960 FDA Start: 10-26-2020 Thyroidectomy SUTURE,LIGA CLIP MED LT200 FDA Start: 10-26-2020 Thyroidectomy SUTURE,LIGA CLIP MED LT200 FDA Start: 10-26-2020 Thyroidectomy SUTURE,LIGA CLIP SM LT-100 FDA Start: 10-26-2020 Thyroidectomy DRESSING,FIBRILL AR 1X2 1960 FDA Start: 10-26-2020 Thyroidectomy SUTURE,LIGA CLIP MED LT200 FDA Start: 10-26-2020 Thyroidectomy SUTURE,LIGA CLIP MED LT200 FDA Start: 10-26-2020 Thyroidectomy SUTURE,LIGA CLIP SM LT-100 FDA Start: 10-26-2020 Mental Status Date Assessment Result Facility 08-26-2022 Cognitive function Awake;Alert;A ppropriate;Fol lows Commands [facility] Work Phone: 08-26-2021 Cognitive function Voice/Name [facility] Work Phone: Clinical Notes 07-14-2020 to 07-08-2024 Note Date & Type Note Facility 07-08-2024 Evaluation note Diagnosis Onset Date Resolution Primary adenocarcinoma of upper lobe of right lung acute July 08, 2024 10:51am [facility] Work Phone: 1(488) 991-121204-14-2025 Evaluation note* Diagnosis Onset Date Resolution Status Admit Date 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 acute July 08, 2 025 10:51am Mixed hyperlipidemia acute August 29, 2024 9:26am Coronary artery calcification chroni c August 29, 2024 9:26am Essential hypertension chronic Ju 2024 9:26am [facility] Work Phone: 1(563) 169-402304-04-2025 Radiology Diagnostic study note [facility] Imaging Services [address], [place] [address] Chest WITH Contrast MR#: [id number] Acct: [id number] Name: MARGAUX SANDERSON Rep #: [id number] : 1940 M 83 From: Robert Knowles MD PCP: Dr. Alexander Steiner MD Status: APOLINAR SALVADOR Study:Chest WITH Contrast Date of Exam: 06/27/24 Exam# [id number] Ordering Dr: Alejandro Machado DO PROCEDURE: CHEST WITH CONTRAST 06/27/2024 REASON FOR EXAM: FOLLOW UP TREATED LUNG CANCER Treated right upper lobe lung carcinoma. TECHNIQUE: Prone and supine chest CT with intravenous contrast, high resolution CT (HRCT) protocol. Coronal and Sagittal reconstruction series were provided. CONTRAST: Isovue-300 VOLUME: 100 mL One or more dose reduction techniques were used (e.g., Automated exposure control, adjustment of the mA and/or kV according to patient size, use of iterative reconstruction technique). RADIATION DOSE SUMMARY: CTDlvol: 7.2 mGy DLP: 170.88 mGycm COMPARISON: Comparison is made with prior study dated February 26, 2024. FINDINGS: Hardware: None Lymph nodes: No mediastinal hilar or axillary lymphadenopathy. Heart and Vasculature: Normal heart size. No pericardial effusion. Atherosclerotic calcifications of the thoracic aorta. Pulmonary arteries are unremarkable. Coronary artery calcification. Lungs and Airways: Essentially stable 1 cm x 1.3 cm spiculated mass in the medial aspect of the right upper lobe. Stable increased markings in the surrounding pulmonary parenchyma suggestive of possible post radiation scarring. No new mass lesion is seen. Pleura: Unremarkable. Upper Abdomen: Unremarkable Bones: Bone windows are unremarkable. CT/Chest WITH Contrast IMPRESSION: Coronary artery calcification (CAC) is is present Stable 1.3 cm x 1 cm spiculated nodule in the medial aspect of the right upper lobe. Reading Location: [facility] CC: Dr. Alejandro Machado DO; Dr. Alexander Steiner MD ~ Inspector Rough Castings: Signed [facility]03-04-2025 Radiology Diagnostic study note [facility] Imaging Services [address], [place] [id number] Chest PA and Lateral MR#: [id number] Acct: [id number] Name: MARGAUX SANDERSON Rep #: [id number] : 1940 M 83 From: Tamar Neal MD PCP: Dr. Alexander Steiner MD Status: REG MADELEINE Study:Chest PA and Lateral Date of Exam: 05/28/24 Exam# [id number] Ordering Dr: Alexander Steiner MD EXAM: XR Chest, 2 Views CLINICAL INDICATION: TECHNIQUE: Frontal and lateral views of the chest. COMPARISON: No relevant prior studies available. FINDINGS: LUNGS AND PLEURAL SPACES: Unremarkable. No consolidation. No pneumothorax. HEART: Unremarkable. No cardiomegaly. MEDIASTINUM: Unremarkable. Normal mediastinal contour. BONES/JOINTS: Unremarkable. No acute fracture. RAD/Chest PA and Lateral IMPRESSION: No acute cardiopulmonary process. Reading Location: [facility] CC: Dr. Alexander Steiner MD ~ Inspector Rough Castings: Signed [facility]11-25-2024 Evaluation note* Diagnosis Onset Date Resolution Status Admit Date Primary osteoarthritis, righ t shoulder acute February 18, 2 024 10:42am Right shoulder pain acute [facility] 2023 10:42am 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 acute February 29, 2024 11:13am [facility] Work Phone: 1(228) 162-762507-11-2024 [facility] Medical Records Department [address] [place] [address] History Physical Exam 10/05/23 1224 MR#: [id number] Acct: [id number] Name: MARGAUX SANDERSON Rep #: [id number] : 1940 83 From: Mena Valle MD PCP: Dr. Alexander Steiner MD Status:REG [facility] Location: [place] [address] History and Physical Date of Admission: 10/05/23 The patient is examined and there are no changes to the H P dated 10/04/2023. 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 He presents for excision of the neoplasm with submission for pathologic evaluation. He is aware of the potential need for further surgery depending on the final pathology. Informed consent was obtained. 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 Alexander Steiner MD; Dr. Mena Valle MD [facility] Nurse Note* Jessie Shah RN - 12/02/2022 10:55 AM EDT Patient meets Interventional Radiology sedation discharge criteria and discharged per MD order to home. Patient taken by wheelchair by Oju, [employer] to awaiting car. All belongings gathered with patient. Family/friend to drive patient home and care for patient 6 hours post-procedure. * Felicitas Ritter RN - 12/02/2022 10:23 AM EDT CXR clear per Dr. Leroy. * France Roy RN - 12/02/2022 7:30 AM EDT Pt denies history chemo/radiation, seizure,stroke, or metal/implants. [facility] Surgical operation note* Jessie Shah RN - 12/02/2022 10:55 AM EDT Patient meets Interventional Radiology sedation discharge criteria and discharged per MD order to home. Patient taken by wheelchair by Oju, [employer] to awaiting car. All belongings gathered with patient. Family/friend to drive patient home and care for patient 6 hours post-procedure. [facility]09-08-2023 Nurse Surgical operation note* Felicitas Ritter RN - 12/02/2022 10:23 AM EDT CXR clear per Dr. Leroy. [facility]09-08-2023 Nurse Note* Nursing Notes - Kleber Callahan RN - 12/02/2022 8:16 AM EDT Procedure completed with IR Attending MD Goodrich of CT guided R Lung biopsy. Samples obtained intra-procedure and sent to lab for analysis. Post procedure patient to travel to [facility] for post procedure monitoring. See post procedure orders for nursing care. [facility]09-08-2023 Miscellaneous Notes* Nursing Notes - Kleber Callahan RN - 12/02/2022 8:16 AM EDT Procedure completed with IR Attending MD Goodrich of CT guided R Lung biopsy. Samples obtained intra-procedure and sent to lab for analysis. Post procedure patient to travel to [facility] for post procedure monitoring. See post procedure orders for nursing care. * Nursing Notes - France Roy RN - 12/02/2022 7:30 AM EDT 0829: Patient arrives in [facility] Phase 2 Interventional Radiology from Interventional Radiology Procedure Suite with side rails up x2 with HOB >30 degrees, accompanied by IR Nurse. Patient placed onmonitors, VSS. Patient assessed, see assessment. [facility] History and physical note* JENNIFER Chavez - 12/02/2022 7:30 AM EDT Interventional Radiology Pre Procedure H&P REFERRING PROVIDER Dean Bedoya APRN-SHINE CHIEF COMPLAINT- Here for a lung biopsy PLANNED PROCEDURE- Image guided lung biopsy INDICATION FOR PROCEDURE- Margaux Sanderson is an 82 y.o. male with an enlarging right lung nodule thatwas initially found on a lung cancer screen. [...] (36.7 C), temperature source Oral, resp. rate 18,height 1.702 m (5' 7), weight 58.1 kg (128 lb), SpO2 98 %. General: Alert and oriented; in NAD Cardio: HR 71 Lungs: Normal work of breathing Neurological: No focal deficits Skin: [place], warm and dry Laboratory Data Results for [...] for procedure. JENNIFER De 12/02/2022 6:44 AM [facility] Work Phone: 1(470) 558-640209-08-2023 History and physical note* JENNIFER Chavez - 12/02/2022 7:30 AM EDT Interventional Radiology Pre Procedure H&P REFERRING PROVIDER JENNIFER Eugene CHIEF COMPLAINT- Here for a lung biopsy PLANNED PROCEDURE- Image guided lung biopsy INDICATION FOR PROCEDURE- Margaux Sanderson is an 82 y.o. male with an enlarging right lung nodule thatwas initially found on a lung cancer screen. [...] (36.7 C), temperature source Oral, resp. rate 18,height 1.702 m (5' 7), weight 58.1 kg (128 lb), SpO2 98 %. General: Alert and oriented; in NAD Cardio: HR 71 Lungs: Normal work of breathing Neurological: No focal deficits Skin: [place], warm and dry Laboratory Data Results for [...] procedure. Mirlande Murray APRN-SHINE 12/02/2022 6:44 AM [facility]* Nursing Notes - France Roy RN - 12/02/2022 7:30 AM EDT 0829: Patient arrives in [facility] Phase 2 Interventional Radiology from Interventional Radiology Procedure Suite with side rails up x2 with HOB >30 degrees, accompanied by IR Nurse. Patient placed onmonitors, VSS. Patient assessed, see assessment. [facility]09-08-2023 Nurse Surgical operation note* France Roy RN - 12/02/2022 7:30 AM EDT Pt denies history chemo/radiation, seizure,stroke, or metal/implants. [facility]09-08-2023 Procedure note* Reji Goodrich MD - 12/02/2022 7:30 AM EDTAssociated Order(s): GENERAL PROCEDURE BODY INTERVENTIONAL RADIOLOGY PROCEDURE NOTE PROCEDURE INDICATION: Right upper lobe enlarging lung nodule PROCEDURE PERFORMED: CT-guided lung biopsy FINDINGS/TARGET: Right upper raj lung nodule. Total of 6 passes taken. No pneumothorax on post imaging. Reji Goodrich MD 12/02/2022 9:11 AM CAFETERIA MONITOR(S): Reji Goodrich MD. CONSENT: Informed consent was obtained prior to the procedure after discussion of the risks, benefits, and alternatives of the procedure, and expected procedure outcomes were discussed with the patient and/orrepresentative. The consent document was placed in chart. DID THIS PROCEDURE REQUIRE A UNIVERSAL PROTOCOL?: Yes. [place] Protocol is required. Preprocedure verification is complete. [...] for allowing Interventional Radiology to participate in thispatient's care. [facility] Work Phone: [phone]) 542-122809-08-2023 Procedure note* Reji Goodrich MD - 12/02/2022 7:30 AM EDTAssociated Order(s): GENERAL PROCEDURE BODY INTERVENTIONAL RADIOLOGY PROCEDURE NOTE PROCEDURE INDICATION: Right upper lobe enlarging lung nodule PROCEDURE PERFORMED: CT-guided lung biopsy FINDINGS/TARGET: Right upper raj lung nodule. Total of 6 passes taken. No pneumothorax on post imaging. Reji Goodrich MD 12/02/2022 9:11 AM CAFETERIA MONITOR(S): Reji Goodrich MD. CONSENT: Informed consent was obtained prior to the procedure after discussion of the risks, benefits, and alternatives of the procedure, and expected procedure outcomes were discussed with the patient and/orrepresentative. The consent document was placed in chart. DID THIS PROCEDURE REQUIRE A UNIVERSAL PROTOCOL?: Yes. [place] Protocol is required. Preprocedure verification is complete. [...] for allowing Interventional Radiology to participate in thispatient's care. documented in this [facility]09-08-2023 Hospital Discharge instructions* Discharge Instructions* Leonila Murray APRN-CAUSTICISER - 12/02/2022 6:47 AM EDT Home Care [...] you are not able to stop the bleeding,call 911 or the emergency squad. Pain: After [...] or on Weekends, please call the Hospital Driver Trainer at [phone] and ask them for the Interventional Design Specialist On-Call [facility] History of Present illness Narrative* JENNIFER Eugene - 11/04/2022 11:00 AM EDT PROGRESS NOTE Chief Complaint Patient presents with Follow-up Margaux Sanderson is a 82 y.o. male former smoker who is being followed for right upper lobe nodule. This was first found in 2011 and was noted to be 5.9 mm. He followed in surveillance with his local insurance adjustor Dr. Jimenez and was referred to our [...] (Oral) Resp 16 Ht 1.702 m (5' 7) Wt 59.1 kg (130 lb 6.4 oz) [...] He followed in surveillance with his local insurance adjustor Dr. Jimenez and was referred to our [...] and discussed with JENNIFER Eugene. JENNIFER Eugene #[id number] [facility] History of Present illness Narrative* JENNIFER Eugene - 11/10/2021 11:45 AM EDT PROGRESS NOTE Chief Complaint Patient presents with Follow-up CT complete. Margaux Sanderson is a 81 y.o. male former smoker who is being followed for right upper lobe nodule. This was first found in 2011 and was noted to be 5.9 mm. He followed in surveillance with his local insurance adjustor Dr. Jimenez and was referred to our [...] (Oral) Resp 16 Ht 1.702 m (5' 7) Wt 60.1 kg (132 lb 6.4 oz) [...] He followed in surveillance with his local insurance adjustor Dr. Jimenez and was referred to our [...] with Micah Trinh MD. JENNIFER Eugene #[id number] * JENNIFER Eugene - 11/10/2021 11:45 AM EDT Reviewed final radiologic read with Dr. Trinh. Plan to continue with one year surveillance CT JENNIFER Eugene * Micah Trinh MD - 11/10/2021 11:45 AM EDT PROGRESS NOTE Chief Complaint Patient presents with [...] (SUVmax 8.8). The patient was evaluated at [facility] and surgery was recommended for the right [...] (Oral) Resp 16 Ht 1.702 m (5' 7) Wt 60.1 kg (132 lb 6.4 oz) [...] (SUVmax 8.8). The patient was evaluated at [facility] and surgery was recommended for the right [...] surveillance. Micah Trinh MD [facility] History of Present illness Narrative* Micah Trinh MD - 11/11/2020 4:30 PM EDT PROGRESS NOTE Chief Complaint Patient presents with [...] (SUVmax 8.8). The patient was evaluated at [facility] and surgery was recommended for the right [...] (SUVmax 8.8). The patient was evaluated at [facility] and surgery was recommended for the right [...] months for ongoing surveillance. Micah Trinh MD * Chantel Ospina PA-C - 11/11/2020 4:30 PM EDT PROGRESS NOTE Chief Complaint Patient presents with [...] self referred today for evaluation of a mildlyhypermetabolic RUL nodule found during annual LDCT lung cancer screening. Of note, he has been following with annual CT chest imaging for nodule surveillance for the past 3 years with his local insurance adjustor, Dr. Micah Jimenez ([place]). A CT chest on 05/08/20 showed a [...] 1.5 weeks ago from a surgeon in [place], [place] and also recently started taking amlodipine. [...] wall lesions are identified. Additional Findings: None. Blog Writer: Blog Writer imaging reveals no abnormalities not already visible [...] today for evaluation of a mildly hypermetabolic RULnodule found during annual LDCT lung cancer screening. Of note, he has been following with annual CT chest imaging for nodule surveillance for the past 3 years with his local insurance adjustor, Dr. Micah Jimenez ([place]). A CT chest on 05/08/20 showed a [...] plan. Chantel Ospina PA-C documented in this [facility]-2021 NoteHNO ID: [id number] Author: Jose Daniel Danielle (Tech) Service: Nuclear Medicine Author Type: Thread Winder Automatic Type: Progress Notes Filed: 07/14/2020 7:00 AM [...] [id number] PATIENT DISCHARGED TO: Ambulatory patient, left [place] department area. A Diagnostic radioactive procedure has taken place, with no further precautions necessary other than routine body substance precautions. More information regarding radiation safety can be found using this link: [email or web address] SIGNATURE: Sally Banks PATIENT NAME: Margaux Sanderson DATE: July 14, 2020 TIME: 6:59 AM PAGER/CONTACT #:[facility] note* Diagnosis Solitary lung nodule Solitary pulmonary nodule [facility] Diagnosis Solitary lung nodule- Primary Solitary pulmonary nodule [facility] Diagnosis Onset Date Resolution Status Bradycardia acute Mixed hyperlipidemia acute Coronary artery calcification chronic Essential hypertension chron ic [facility] Work Phone: Evaluation noteNo assessment information available [facility] Work Phone: Evaluation note* Diagnosis Lung nodule Solitary pulmonary nodule Former smoker Personal history of tobacco use, presenting hazards to health [facility] Diagnosis Lung nodule- Primary Solitary pulmonary nodule [facility] Diagnosis Onset Date Resolution Status Bradycardia acute Mixed hyperlipidemia acute Coronary artery calcification chronic Essential hypertension chron ic Osteoporosis acute Postoperative primary hypothyroidism acute Vitamin D deficiency [facility] Work Phone: Evaluation note* Diagnosis Onset Date Resolution Status Osteoporosis acute Postoperative primary hypothyroidism acute Vitamin D deficiency [facility] Work Phone: Evaluation note* Diagnosis Lung nodule- Primary Solitary pulmonary nodule [facility] Diagnosis Nodule of upper lobe of right lung [facility] Diagnosis Onset Date Resolution Status Primary adenocarcinoma of upper lobe of right lung acute Primary adenocarcinoma of upper lobe of right lung acute Primary adenocarcinoma of upper lobe of right lung acute [facility] Work Phone: Evaluation note* Diagnosis Onset Date Resolution Status Primary adenocarcinoma of upper lobe of right lung acute Primary adenocarcinoma of upper lobe of right lung [facility] Work Phone: Reason for referral (narrative)No reason for referral information availableWWilson [facility] Work Phone: Summary Purpose Family History No Family History Records Found Relationship Condition Age at Onset Recorded Date/T vero father Diabetes mellitus Unknown Hypertension Unknown Cerebrovascular accident (CVA) Unknown mother Disorder of thyroid Unknown Relationship Condition Age at Onset Recorded Date/T vero father Diabetes mellitus Unknown Hypertension Unknown Cerebrovascular accident (CVA) Unknown mother Disorder of thyroid Unknown Arthritis Unknown Advance Directives No Advanced Directives Records Found Advance Directive Response Recorded Date/ Time Advance Directives No February 01, 2016 12:13pm Living Will No October 20, 2020 10:04am Power of Screenplay Writer No October 20 10:04am Latest Code Status on File Code Status Date Activated Date Inactivated Comments Full Code 12/02/2022 7:44 AM Latest Code Status on File Code Status Date Activated Date Inactivated Comments Full Code 12/02/2022 7:44 AM Advance Directive Response Recorded Date/ Time Advance Directives No February 01, 2016 11:13am Living Will No October 20, 2020 9:04am Power of Screenplay 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 No October 20 9:04am Advance Directive Response Recorded Date/ Time Living Will No October 20, 2020 10:04am Power of Screenplay Writer No October 20 10:04am Advance Directives No February 01, 2016 12:13pm Advance Directive Response Recorded Date/ Time Advance Directives No February 01, 2016 12:13pm Reason for Referral Specialty Diagnoses / Procedures Referred By Contac t Referred To Contact Diagnoses Solitary lung nodule Procedures CT CHEST WITH CONTRAST CHG DIAGNOSTIC COMPUTED TOMOGRAPHY THORAX W/CONTRAST Ingrid Lebron, PA-C [address] [place] [address] Referral ID Status Reason Start Date Expiration Date Visits Re quested Visits Authorized [id number] Closed 09/09/2020 10/04/2021 1 1 Specialty Diagnoses / Procedures Referred By Contac t Referred To Contact Diagnoses Solitary lung nodule Procedures CT CHEST WITHOUT CONTRAST CHG DIAGNOSTIC COMPUTED TOMOGRAPHY THORAX W/O CNTRST Chantel Ospina, PA-C [address] [place] [address] Referral ID Status Reason Start Date Expiration Date V isits Requested Visits Authorized [id number] New Request 11/11/2020 12/06/2021 1 1 Specialty Diagnoses / Procedures Referred By Contac t Referred To Contact Diagnoses Lung nodule Former smoker Procedures CT CHEST WITHOUT CONTRAST CHG DIAGNOSTIC COMPUTED TOMOGRAPHY THORAX W/O CNTRST Delia Mccauley, SUEDE CLEANER-CAUSTICISER [address] [place] [address] Referral ID Status Reason Start Date Expiration Date Visits Re quested Visits Authorized [id number] Closed 05/12/2021 06/06/2022 1 1 Specialty Diagnoses / Procedures Referred By Contac t Referred To Contact Diagnoses Lung nodule Procedures CT CHEST WITHOUT CONTRAST CHG DIAGNOSTIC COMPUTED TOMOGRAPHY THORAX W/O CNTRST Dean Bedoya, SUEDE CLEANER-CAUSTICISER [address] [place] [address] Referral ID Status Reason Start Date Expiration Date V isits Requested Visits Authorized [id number] New Request 11/10/2021 12/05/2022 1 1 Specialty Diagnoses / Procedures Referred By Contac t Referred To Contact Diagnoses Nodule of upper lobe of right lung Procedures CT LUNG/MEDIASTINUM BIOPSY OR CORE NEEDLE BX LUNG/MEDIASTINUM PERQ W/IMG OR CT GUIDANCE NEEDLE PLACEMENT Dean Bedoya M, SUEDE CLEANER-CAUSTICISER [address] [place] [address] Referral ID Status Reason Start Date Expiration Date V isits Requested Visits Authorized [id number] New Request 11/11/2022 12/06/2023 1 1 Chief Complaint and Reason for Visit Chief Complaint 6 M FU BLOOD WORK Reason for Visit Bradycardia Mixed hyperlipidemia Coronary artery calcification Essential hypertension Chief Complaint BLOOD WORK RECLAST Chief Complaint 6 M FU 8 M FU 2 ORDERING DOCS Reason for Visit Bradycardia Mixed hyperlipidemia Coronary artery calcification Essential hypertension Osteoporosis Postoperative primary hypothyroidism Vitamin D deficiency Chief Complaint 8 M FU 2 ORDERING DOCS OSTEO reclast Reason for Visit Osteoporosis Postoperative primary hypothyroidism Vitamin D deficiency Chief Complaint 2 ORDERING DOCS OSTEO reclast Chief Complaint CONSULT - LUNG Amb Documentation OTV Amb Documentation Amb Documentation labs w/IV start Amb Documentation 1 MONTH F/U POST SBRT LUNG STOOL Reason for Visit 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 Primary adenocarcinoma of upper lobe of right lung Chief Complaint CONSULT - LUNG Amb Documentation OTV Amb Documentation Amb Documentation labs w/IV start Amb Documentation 1 MONTH F/U POST SBRT LUNG STOOL CBCD Reason for Visit 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 Primary adenocarcinoma of upper lobe of right lung Chief Complaint Amb Documentation OTV Amb Documentation Amb Documentation labs w/IV start Amb Documentation 1 MONTH F/U POST SBRT LUNG STOOL CBCD Malignant neoplasm of upper lobe, right bronchus o 2 MONTH F/U LUNG, REVIEW CT Reason for Visit 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 Primary adenocarcinoma of upper lobe of right lung Chief Complaint CBCD Malignant neoplasm of upper lobe, right bronchus o 2 MONTH F/U LUNG, REVIEW CT F/U RUL NSCLC 3 MONTH F/U LUNG, REVIEW CT Reason for Visit 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 Chief Complaint Admit Date RIGHT SHOULDER February 19, 2024 10:42am PRIOR TREATED LUNG CA February 26, 2024 1:03pm 3 MONTH F/U LUNG, REVIEW CT February 11:13am Reason for Visit Admit Date Primary osteoarthritis, right shoulder N ov2023 10:42am Right shoulder pain February 19, 2024 10:42am Primary adenocarcinoma of upper lobe of right lung February 29, 2024 11:13am Chief Complaint Admit Date Malignant neoplasm of upper lobe, right bronchus o June 27, 2024 12:47pm Chief Complaint Admit Date Malignant neoplasm of upper lobe, right bronchus o June 27, 2024 12:47pm 4 MONTH LUNG, REVIEW CT July 08, 2024 10:51am NEAR SYNCOPE August 22, 2024 8:50a m NEAR SYNCOPE August 22, 2024 9:17a m Reason for Visit Admit Date Primary adenocarcinoma of upper lobe of right lung July 08, 2024 10:51am Chief Complaint Admit Date Malignant neoplasm of upper lobe, right bronchus o June 27, 2024 12:47pm 4 MONTH LUNG, REVIEW CT July 08, 2024 10:51am NEAR SYNCOPE August 22, 2024 8:50a m NEAR SYNCOPE August 22, 2024 9:17a m OVERDUE FU August 29, 2024 9:26a m Reason for Visit Admit Date Primary adenocarcinoma of upper lobe of right lung July 08, 2024 10:51am Mixed hyperlipidemia August 29, 2024 9:26 am Coronary artery calcification August 29, 2024 9:26am Essential hypertension August 29, 2024 9: 26am Additional Source Comments (unrecognized sect ion and content) No Status Records FoundNo Status Records FoundNo Status Records FoundNo Status Records Found INFORMATION SOURCE (unrecogn ized section and content) DATE CREATED AUTHOR 09/04/2020 [facility] DATE CREATED AUTHOR AUTHOR'S ORGANIZ ATION 11/16/2022 [facility] DATE CREATED AUTHOR AUTHOR'S ORGANIZ ATION 02/17/2024 [facility] DATE CREATED AUTHOR AUTHOR'S ORGANIZ ATION [facility] Reason for Visit (unrecogniz ed section and content) Specialty Diagnoses / Procedures Referred By Bonnie chowdary Referred To Contact Diagnoses Solitary lung nodule Procedures CT CHEST WITH CONTRAST CHG DIAGNOSTIC COMPUTED TOMOGRAPHY THORAX W/CONTRAST Ingrid Lebron PA-C [address] [place] [address] Referral ID Status Reason Start Date Expiration Date Visits Re quested Visits Authorized [id number] Closed 09/09/2020 10/04/2021 1 1 Reason Comments Follow-up CT complete; Mild SO B with activity, productive cough-clear thin sputum, Denies pain, Afebrile Other thyroid removed a we ek and a half ago; started amlodipine recently Specialty Diagnoses / Procedures Referred By Contac t Referred To Contact Diagnoses Lung nodule Former smoker Procedures CT CHEST WITHOUT CONTRAST CHG DIAGNOSTIC COMPUTED TOMOGRAPHY THORAX W/O CNTRST Delia Mccauley [place], SUEDE CLEANER-CAUSTICISER [address] [place] [address] Referral ID Status Reason Start Date Expiration Date Visits Re quested Visits Authorized [id number] Closed 05/12/2021 06/06/2022 1 1 Reason Comments Follow-up CT complete. Reason Comments Follow-up Specialty Diagnoses / Procedures Referred By Bonnie t Referred To Contact Diagnoses Nodule of upper lobe of right lung Procedures CT LUNG/MEDIASTINUM BIOPSY OR CORE NEEDLE BX LUNG/MEDIASTINUM PERQ W/IMG OR CT GUIDANCE NEEDLE PLACEMENT Dean Bedoya, SUEDE CLEANER-CAUSTICISER [address] [place] [address] Referral ID Status Reason Start Date Expiration Date V isits Requested Visits Authorized [id number] New Request 11/11/2022 12/06/2023 1 1 Care Teams (unrecognized sec tion and content) Functional Mental Disability Teacher Relationship Specialty Start Date End Date Denzel Steiner MD [address] [facility] [address] [place], [place] [id number] PCP - General Internal Medicine 09/09/20 Micah Forrest MD [address] [facility] [address] [place], [place] [id number] Museum Director Pulmonary Disease 11/11/20 Functional Mental Disability Teacher Relationship Specialty Start Date End Date Denzel Steiner MD [address] [facility] [address] [place], [place] [id number] PCP - General Internal Medicine 09/09/20 Micah Forrest MD [address] [facility] [address] [place], [place] [address] Museum Director Pulmonary Disease 11/11/20 Functional Mental Disability Teacher Relationship Specialty Start Date End Date Denzel Steiner MD [address] [facility] [address] [place], [place] [address] PCP - General Internal Medicine 09/09/20 Micah Forrest MD [address] [facility] [address] [place] [address] Museum Director Pulmonary Disease 11/11/20 Functional Mental Disability Teacher Relationship Specialty Start Date End Date Denzel Steiner MD [address] [facility] [address] [place], [place] [address] PCP - General Internal Medicine 09/09/20 Micah Forrest MD [address] [facility] [address] [place] [address] Museum Director Pulmonary Disease 11/11/20 Team Status: Active Member Role Status Dates Dr. Alexander Steiner MD Family Provider Active Dr. Alexander Steiner MD Primary Care Provider Active Team Status: Inactive Member Role Status Dates Dr. Alexander Steiner MD Primary Care Provider, Referring Provider Active Dr. Chemo Chacon MD Attending Provider Active Team Status: Inactive Member Role Status Dates Dr. Alexander Steiner MD Primary Care Provider, Referring Provider Active Dr. Marcelino Nolen MD Attending Provider Active Team Status: Inactive Member Role Status Dates Dr. Alexander Steiner MD Primary Care Provider Active Dr. Rene Otto MD Attending Provider, Referr ing Provider Active Team Status: Inactive Member Role Status Dates Dr. Alexander Steiner MD Primary Care Provider Active Dr. Marcelino Nolen MD Attending Provider, Referring Provi cortney Active Team Status: Inactive Member Role Status Dates Dr. Alexander Steiner MD Primary Care Provi cortney, Attending Provider, Referring Provider Active Team Status: Inactive Member Role Status Dates Dr. Alexander Steiner MD Primary Care Provider, Attending Provider Active Functional Mental Disability Teacher Relationship Specialty Start Date End Date Denzel Steiner MD [address] [place] [address] [address] [place], [place] [address] PCP - General Internal Medicine 09/09/20 Micah Forrest MD [address] [place] [address] [address] [place], [place] [address] Museum Director Pulmonary Disease 11/11/20 Functional Mental Disability Teacher Relationship Specialty Start Date End Date Denzel Steiner MD [address] [place] [address] [address] [place], [place] [id number] PCP - General Internal Medicine 09/09/20 Micah Forrest MD [address] [place] [address] [address] [place] [address] Museum Director Pulmonary Disease 11/11/20 Functional Mental Disability Teacher Relationship Specialty Start Date End Date Denzel Steiner MD [address] [place] [address] [address] [place], [place] [id number] PCP - General Internal Medicine 09/09/20 Micah Forrest MD [address] [place] [address] [address] [place], [place] [id number] Museum Director Pulmonary Disease 11/11/20 Team Status: Inactive Member Role Status Dates Dr. Alexander Steiner MD Primary Care Provider, Referring Provider Active Dr. Alejandro Machado DO Attending Provider Active Team Status: Active Member Role Status Dates Dr. Alexander Steiner MD Primary Care Provider Active Dr. Alejandro Machado DO Attending Provider, Referring P rovider Active Team Status: Inactive Member Role Status Dates Dr. Alexander Steiner MD Primary Care Provider Active Dr. Alejandro Machado DO Attending Provider, Referring P rovider Active Team Status: Active Member Role Status Dates Dr. Alexander Steiner MD Primary Care Provider, Attending Provider Active Team Status: Active Member Role Status Dates Dr. Alexander Steiner MD Primary Care Provi cortney, Attending Provider, Referring Provider Active Team Status: Inactive Member Role Status Dates Gregory Rodriguez MD Attending Provider Active St art: February 19, 2024 End: February 19, 2024 Team Status: Inactive Member Role Status Dates Dr. Alejandro Machado DO Attending Provider Active Start: February 26, 2024 End: February 26, 2024 Dr. Alejandro Machado DO Referring Provider Active Start: February 26, 2024 End: February 26, 2024 Dr. Alexander Steiner MD Primary Care Provider Active Start: February 26, 2024 End: February 26, 2024 Team Status: Inactive Member Role Status Dates Dr. Alejandro Machado DO Attending Provider Active Start: February 29, 2024 End: February 29, 2024 Dr. Alexander Steiner MD Primary Care Provider Active Start: February 29, 2024 End: February 29, 2024 Team Status: Inactive Member Role Status Dates Dr. Alexander Steiner MD Primary Care Provider Active Start: March 06, 2024 End: March 06, 2024 Dr. Alexander Steiner MD Attending Provider Active Start: March 06, 2024 End: March 06, 2024 Team Status: Inactive Member Role Status Dates Dr. Alexander Steiner MD Primary Care Provider Active Start: March 26, 2024 End: March 26, 2024 Dr. Alexander Steiner MD Attending Provider Active Start: March 26, 2024 End: March 26, 2024 Team Status: Inactive Member Role Status Dates Dr. Alexander Steiner MD Primary Care Provider Active Start: April 12, 2024 End: April 12, 2024 Dr. Alexander Steiner MD Attending Provider Active Start: April 12, 2024 End: April 12, 2024 Team Status: Inactive Member Role Status Dates Dr. Alexander Steiner MD Primary Care Provider Active Start: May 14, 2024 End: May 14, 2024 Dr. Micah Jimenez MD Attending Provider Active Start: May 14, 2024 End: May 14, 2024 Dr. Micah Jimenez MD Referring Provider Active Start: May 14, 2024 End: May 14, 2024 Team Status: Inactive Member Role Status Dates Dr. Alexander Steiner MD Primary Care Provider Active Start: May 28, 2024 End: May 28, 2024 Dr. Alexander Steiner MD Attending Provider Active Start: May 28, 2024 End: May 28, 2024 Dr. Alexander Steiner MD Referring Provider Active Start: May 28, 2024 End: May 28, 2024 Team Status: Active Member Role Status Dates Dr. Alexander Steiner MD Primary Care Provider Active Team Status: Inactive Member Role Status Dates Dr. Alexander Steiner MD Primary Care Provider Active Start: June 27, 2024 End: June 27, 2024 Dr. Alejadnro Machado DO Attending Provider Active Start: June 27, 2024 End: June 27, 2024 Dr. Alejandro Machado DO Referring Provider Active Start: June 27, 2024 End: June 27, 2024 Team Status: Inactive Member Role Status Dates Dr. Alexander Steiner MD Primary Care Provider Active Start: July 08, 2024 End: July 08, 2024 Dr. Alexander Steiner MD Referring Provider Active Start: July 08, 2024 End: July 08, 2024 Dr. Alejandro Machado DO Attending Provider Active Start: July 08, 2024 End: July 08, 2024 Team Status: Inactive Member Role Status Dates Dr. Alexander Steiner MD Primary Care Provider Active Start: August 12, 2024 End: August 12, 2024 Dr. Alexander Steiner MD Attending Provider Active Start: August 12, 2024 End: August 12, 2024 Dr. Alexander Steiner MD Referring Provider Active Start: August 12, 2024 End: August 12, 2024 Team Status: Inactive Member Role Status Dates Dr. Alexander Steiner MD Primary Care Provider Active Start: August 22, 2024 End: August 22, 2024 Dr. Alexander Steiner MD Attending Provider Active Start: August 22, 2024 End: August 22, 2024 Dr. Alexander Steiner MD Referring Provider Active Start: August 22, 2024 End: August 22, 2024 Team Status: Active Member Role Status Dates Dr. Alexander Steiner MD Primary Care Provider Active Start: August 22, 2024 End: August 22, 2024 Dr. Alexander Steiner MD Referring Provider Active Start: August 22, 2024 End: August 22, 2024 Dr. Sánchez Pena MD Attending Provider Active Start: August 22, 2024 End: August 22, 2024 Team Status: Inactive Member Role Status Dates Dr. Alexander Steiner MD Primary Care Provider Active Start: August 29, 2024 End: August 29, 2024 Dr. Alexander Steiner MD Referring Provider Active Start: August 29, 2024 End: August 29, 2024 Laura Condon NP, PNEUMATIC DEICER INSPECTOR-C Attending Provider Active Start: August 29, 2024 End: August 29, 2024 Goals (unrecognized section and content) Goals may be documented in a n alternate sectionGoals may be documented in an alternate sectionGoals may be documented in an alternate sectionGoals may be documented in an alternate sectionGoals may be documented in an alternate sectionGoals may be documented in an alternate sectionGoals may be documented in an alternate sectionGoals may be documented in an alternate sectionGoals may be documented in an alternate sectionGoals may be documented in an alternate sectionGoals may be documented in an alternate sectionGoals may be documented in an alternate sectionGoals may be documented in an alternate sectionGoals may be documented in an alternate sectionGoals may be documented in an alternate section FOR RECORDS PERTAINING TO PATIENTS WHO ARE [...] BE BASED ON THE PRIMARY CLINICAL RECORDS. [employer] [facility]. provides no warranty or guarantee of the accuracy or completeness of information in this document.
== END | disposition home or self-care (01) ==
LOC: CT 06:25
PROVIDERS: PCP Family Medicine Geriatric Medicine; Referring Provider Family Medicine Geriatric Medicine; Visit Provider Family Medicine Geriatric Medicine
DX: I65.23 Occlusion and stenosis of bilateral carotid arteries (principal)
CPT/HCPCS: 70496; 70498; Q9967

== ENCOUNTER → 2024-09-16 | Outpatient (CLI) | payer MEDICARE, SELFPAY ==
[2024-09-16 11:23] LABS: Absolute Lymphocyte Count 1.04 X10^3/uL (0.83-4.51); Basophil# 0.06 X10^3/uL; Basophil% 0.8 % (0-1); Eosinophils% 1.4 % (0-5); Hematocrit 34.2 % (40-54); Hemoglobin 10.2 g/dL (13.0-16.5); Lymphocyte # 1.04 X10^3/ul (0.83-4.51); Lymphocyte % 14.6 % (19-41); Mean Corp Hgb Conc 29.8 g/dL (32-36); Mean Corpuscular Hgb 23.4 pg (27.0-32.0); Mean Corpuscular Volume 78.4 fL (80-94); Mean Platelet Vol. 10.3 fl (6.2-12.0); Monocyte# 0.91 X10^3/uL; Monocyte% 12.7 % (0-10); NRBC Flagged by Analyzer 0 % (0-5); Neutrophil % 70.1 % (47-70); Platelet Count 300 K/mm3 (150-450); RBC Distribution Width SD 50.5 fl (35.1-43.9); Red Blood Count 4.36 M/mm3 (4.6-6.2); White Blood Count 7.1 K/mm3 (4.4-11.0)
[2024-09-16 12:28] LABS: ALB/GLOB Ratio 1.4 RATIO (0.9-2.4); AST(SGOT) 16 U/L (<=37); Alanine Aminotransfer ALT/SGPT 10 U/L (<=46); Albumin, Serum 3.9 g/dL (3.4-4.8); Alkaline Phosphatase 101 U/L (40-129); Anion Gap 13 (5-15); BUN 15 mg/dL (4-19); BUN/Creat Ratio 18.8 RATIO (10-20); Calcium,Total 9.3 mg/dL (7.6-11.0); Carbon Dioxide 21.9 mmol/L (21.0-32.0); Chloride 109 mmol/L (98-108); Cholesterol 133 mg/dL (<=200); Creatinine, Serum 0.79 mg/dL (0.70-1.20); EST Glomerular Filtration Rate 89 (>60); Globulin 2.7 g/dL (2.2-4.2); Glucose 111 mg/dL (70-99); High Density Lipoprotein 66 mg/dL; Low Density Lipoprotein Calc. 58 mg/dL; Potassium 3.9 mmol/L (3.3-5.1); Protein, Total 6.6 g/dL (5.9-8.4); Sodium Level 143 mmol/L (133-145); Total Bilirubin 0.24 mg/dL (0.00-1.30); Triglycerides 46 mg/dL; Very Low Density Lipoprotein 9 mg/dL (5-40); cholesterol:hdl ratio screen 2.01
[2024-09-16 12:31] LABS: Thyroid Stim Hormone (TSH) 0.074 uIU/mL (0.300-4.200); Vitamin D,25 Hydroxy 38.9 ng/mL (30-100)
== END | disposition home or self-care (01) ==
LOC: LAB 10:47
PROVIDERS: PCP Family Medicine Geriatric Medicine; Referring Provider Family Medicine Geriatric Medicine; Visit Provider Family Medicine Geriatric Medicine
DX: I10 Essential (primary) hypertension (principal); E55.9 Vitamin D deficiency, unspecified; E78.5 Hyperlipidemia, unspecified
CPT/HCPCS: 36415; 80053; 80061; 82306; 84443; 85025

== ENCOUNTER → 2024-09-19 | Outpatient (CLI) | payer MEDICARE, SELFPAY ==
--- NOTE | 2024-09-19 13:47 | ECHOD_ITS ---
Reason For Study Reason For Study: NEAR SYNCOPE Procedure This was a 2D Doppler, Color Flow transthoracic echocardiogram. Exam performed in department. Left Ventricle The LV ejection fraction is 60 %. Normal diastology for age. Right Ventricle Normal right ventricle. Atria The left and right atria are normal. Mitral Valve Trivial mitral valve insufficiency. Tricuspid Valve Trivial tricuspid valve insufficiency. Right ventricular systolic pressure estimated to be 43 mmHg. Aortic Valve Trisinus/trileaflet aortic valve. Pulmonic Valve The pulmonic valve is not well visualized. Great Vessels Normal sized aortic root. Pericardium/Pleural No pericardial effusion. MMode/2D Measurements & Calculations LVIDd: 4.3 cm IVSd: 0.90 cm Ao root diam: 3.4 cm LVIDs: 3.2 cm LVPWd: 0.87 cm RVDd: 3.4 cm FS: 25.7 % LAV(MOD-bp): 42.4 ml LVAd ap4: 26.7 cm2 SV(MOD-sp4): 32.9 ml LAV(MOD-bp) Indexed: 26.1 ml/m2 LVLd ap4: 8.4 cm SI(MOD-sp4): 20.2 ml/m2 LAV(MOD-sp2): 34.7 ml EDV(MOD-sp4): 72.7 ml LAV(MOD-sp4): 35.6 ml EDV(sp4-el): 72.2 ml LVAs ap4: 17.5 cm2 LVLs ap4: 6.7 cm ESV(MOD-sp4): 39.7 ml ESV(sp4-el): 39.0 ml EF(MOD-sp4): 45.3 % EF(sp4-el): 46.0 % SV(sp4-el): 33.2 ml LA A4 area: 14.8 cm2 LA dimension(2D): 2.5 cm RA A4 area: 14.7 cm2 TAPSE: 2.3 cm Time Measurements MV dec time: 0.22 sec Doppler Measurements & Calculations MV E max bryan: 61.5 cm/sec Lat Peak E' Bryan: 14.5 cm/sec Med Peak E' Bryan: 10.5 cm/sec MV A max bryan: 68.9 cm/sec E/E' lat: 4.2 E/E' med: 5.8 MV E/A: 0.89 Ao V2 max: 138.0 cm/sec LV V1 max: 125.1 cm/sec PA V2 max: 85.4 cm/sec Ao max P.7 mmHg LV V1 max P.3 mmHg TR max bryan: 308.7 cm/sec TR max P.1 mmHg ECHO/Echo Complete Interpretation Summary The LV ejection fraction is 60 %. Right ventricular systolic pressure estimated to be 43 mmHg. Ordering Physician: Alexander Steiner Chi Referring Physician: Alexander Steiner Chi Performed By: Anny Turk RDCS and Student
[2024-09-19 14:31] LABS: PSA,Total - Annual Screen 1.57 ng/mL (0.02-4.00)
== END | disposition home or self-care (01) ==
LOC: CVS 12:09
PROVIDERS: PCP Family Medicine Geriatric Medicine; Referring Provider Family Medicine Geriatric Medicine; Visit Provider Family Medicine Geriatric Medicine
DX: R55 Syncope and collapse (principal); Z12.5 Encounter for screening for malignant neoplasm of prostate
CPT/HCPCS: 36415; 84153; 93306; G0103

== ENCOUNTER → 2024-09-20 | Outpatient (CLI) | payer MEDICARE, SELFPAY | END | disposition home or self-care (01) | LOC: LABSPEC 10:06 | PROVIDERS: PCP Family Medicine Geriatric Medicine; Referring Provider Family Medicine Geriatric Medicine; Visit Provider Family Medicine Geriatric Medicine | DX: D64.9 Anemia, unspecified (principal) | CPT/HCPCS: 82274 ==

== ENCOUNTER → 2024-10-02 | Outpatient (CLI) | payer MEDICARE, SELFPAY ==
--- NOTE | 2024-10-02 13:25 | CT_ITS ---
PROCEDURE: ABDOMEN/PELVIS WITH CONTRAST 10/02/2024 REASON FOR EXAM: WEIGHT LOSS Blood in the stool. History of lung cancer. TECHNIQUE: ABDOMEN/PELVIS WITH CONTRAST Coronal and Sagittal reconstruction series were provided. CONTRAST: Isovue 3 7 VOLUME: 75 mL One or more dose reduction techniques were used (e.g., Automated exposure control, adjustment of the mA and/or kV according to patient size, use of iterative reconstruction technique. RADIATION DOSE SUMMARY: CTDlvol: 8.6 mGy DLP: 242.09 mGycm COMPARISON: Prior study dated October 03, 2023 FINDINGS: Lung bases: Lung bases are clear. Minimal coronary artery calcification. Liver: Normal size. No mass. Gallbladder: Gallbladder is contracted. Spleen: Normal size. Pancreas: Diffuse fatty atrophy. Adrenals: Unremarkable Kidneys: Unremarkable Bladder: Unremarkable. Central prosthetic calcifications. Bowel: Colonic diverticulosis without diverticulitis. Appendix: Unremarkable Lymph nodes: Unremarkable. Vasculature: Mild diffuse atherosclerotic calcifications are noted. Peritoneum / Retroperitoneum: Unremarkable Bones: Degenerative changes of the spine. CT/Abdomen/Pelvis WITH Contrast IMPRESSION: Diffuse atrophy of the pancreas. No acute abnormality is seen. Reading Location: [place] [id number]
== END | disposition home or self-care (01) ==
LOC: CT 13:24
PROVIDERS: PCP Family Medicine Geriatric Medicine; Referring Provider Family Medicine Geriatric Medicine; Visit Provider Family Medicine Geriatric Medicine
DX: R63.4 Abnormal weight loss (principal)
CPT/HCPCS: 74177; Q9967

== ENCOUNTER 2024-10-21 09:48 | Outpatient (CLI) | payer MEDICARE, SELFPAY ==
[2024-10-21 10:12] VITALS: BP 124/73; PULSE 81; RESP 16; TEMP 35.9; O2SAT 97; BMI 18.8
[2024-10-21 11:04] VITALS: BP 148/55; PULSE 61; RESP 16; TEMP 35.8; O2SAT 100
== END 2024-10-21 23:59 | disposition home or self-care (01) ==
LOC: MEDOUTP 09:48
PROVIDERS: PCP Family Medicine Geriatric Medicine; Referring Provider Internal Medicine Endocrinology, Diabetes & Metabolism; Visit Provider Internal Medicine Endocrinology, Diabetes & Metabolism
DX: M81.0 Age-related osteoporosis without current pathological fracture (principal)
CPT/HCPCS: 96365; A4216; J3489

== ENCOUNTER → 2024-10-29 | Outpatient (CLI) | payer MEDICARE, SELFPAY ==
--- NOTE | 2024-10-29 13:22 | CT_ITS ---
PROCEDURE: CHEST WITH CONTRAST 10/29/2024 REASON FOR EXAM: FOLLOW UP TREATED LUNG CANCER TECHNIQUE: CHEST WITH CONTRAST Coronal and Sagittal reconstruction series were provided. CONTRAST: Isovue-300 VOLUME: 100 mL One or more dose reduction techniques were used (e.g., Automated exposure control, adjustment of the mA and/or kV according to patient size, use of iterative reconstruction technique). RADIATION DOSE SUMMARY: CTDlvol: 9.15 mGy DLP: 213.68 mGycm COMPARISON: Prior study dated June 27, 2024. FINDINGS: Hardware: None Lymph nodes: No suspicious hilar or mediastinal lymphadenopathy. Heart and Vasculature: The heart is nonenlarged. Coronary artery calcification. Lungs and Airways: Hyperinflation. Emphysematous changes. Stable 1 cm x 1.3 cm nodule in the medial apical segment of the right upper lobe with surrounding scarring. Pleura: No pleural effusion. Upper Abdomen: Unremarkable. Bones: Degenerative changes of the thoracic spine. CT/Chest WITH Contrast IMPRESSION: Coronary artery calcification (CAC) is is present Stable examination. Reading Location: [id number]
== END | disposition home or self-care (01) ==
LOC: CT 13:20
PROVIDERS: PCP Family Medicine Geriatric Medicine; Referring Provider Student in an Organized Health Care Education/Training Program; Visit Provider Student in an Organized Health Care Education/Training Program
DX: Z08 Encounter for follow-up examination after completed treatment for malignant neoplasm (principal); Z85.118 Personal history of other malignant neoplasm of bronchus and lung
CPT/HCPCS: 71260; Q9967

== ENCOUNTER → 2024-11-28 | Outpatient (CLI) | payer MEDICARE, SELFPAY ==
[2024-11-28 17:07] LABS: Hematocrit 30.0 % (40-54); Hemoglobin 9.0 g/dL (13.0-16.5); Immature Granulocytes Count 0.030 X10^3/uL (0.0-0.0); Mean Corp Hgb Conc 30.0 g/dL (32-36); Mean Corpuscular Volume 70.4 fL (80-94); Mean Platelet Vol. 10.1 fl (6.2-12.0); NRBC Flagged by Analyzer 0 % (0-5); Platelet Count 354 K/mm3 (150-450); RBC Distribution Width CV 18.1 % (11.6-14.6); RBC Distribution Width SD 45.3 fl (35.1-43.9); Red Blood Count 4.26 M/mm3 (4.6-6.2); White Blood Count 6.7 K/mm3 (4.4-11.0)
[2024-11-28 17:28] LABS: Prothrombin Time (Protime)PT. 14.0 SECONDS (11.7-14.9)
[2024-11-28 17:31] LABS: AST(SGOT) 25 U/L (<=37); Alanine Aminotransfer ALT/SGPT 7 U/L (<=46); Albumin, Serum 4.0 g/dL (3.4-4.8); Alkaline Phosphatase 129 U/L (40-129); Anion Gap 9 (5-15); BUN 8 mg/dL (4-19); BUN/Creat Ratio 11.4 RATIO (10-20); Calcium,Total 9.4 mg/dL (7.6-11.0); Carbon Dioxide 23.8 mmol/L (21.0-32.0); Chloride 108 mmol/L (98-108); Globulin 2.7 g/dL (2.2-4.2); Glucose 100 mg/dL (70-99); Potassium 4.2 mmol/L (3.3-5.1)
== END | disposition home or self-care (01) ==
LOC: POLAB3 16:30
PROVIDERS: PCP Family Medicine Geriatric Medicine; Visit Provider Family Medicine Geriatric Medicine
DX: I10 Essential (primary) hypertension (principal)
CPT/HCPCS: 36415; 80053; 85025; 85610

== ENCOUNTER → 2024-11-29 | Outpatient (CLI) | payer MEDICARE, SELFPAY | END | disposition home or self-care (01) | LOC: LAB 16:11 | PROVIDERS: PCP Family Medicine Geriatric Medicine; Referring Provider Family Medicine Geriatric Medicine; Visit Provider Family Medicine Geriatric Medicine | DX: D64.9 Anemia, unspecified (principal) | CPT/HCPCS: 82274; 86850; 86900; 86901 ==

== ENCOUNTER 2024-12-02 08:55 | Outpatient (CLI) | payer MEDICARE, SELFPAY ==
[2024-12-02 09:16] VITALS: BP 164/75; PULSE 94; RESP 16; TEMP 35.9; O2SAT 100; BMI 18.1
[2024-12-02 09:54] VITALS: BP 159/63; PULSE 74; RESP 16; TEMP 35.8
[2024-12-02 10:54] VITALS: BP 157/63; PULSE 66; RESP 16; TEMP 35.9; O2SAT 100
[2024-12-02 11:59] VITALS: BP 165/66; PULSE 75; RESP 16; TEMP 36.1; O2SAT 99
[2024-12-02 12:59] VITALS: BP 150/68; PULSE 74; RESP 16; TEMP 36.1; O2SAT 99
[2024-12-02 13:31] VITALS: BP 150/78; PULSE 72; RESP 16
== END 2024-12-02 23:59 | disposition home or self-care (01) ==
LOC: MEDOUTP 08:56
PROVIDERS: PCP Family Medicine Geriatric Medicine; Referring Provider Family Medicine Geriatric Medicine; Visit Provider Family Medicine Geriatric Medicine
DX: D64.9 Anemia, unspecified (principal)
CPT/HCPCS: 36430; 82274; 86850; 86900; 86901; P9016; A4216

== ENCOUNTER → 2024-12-03 | Outpatient (CLI) | payer MEDICARE, SELFPAY ==
[2024-12-03 14:19] LABS: Hematocrit 36.3 % (40-54); Hemoglobin 11.4 g/dL (13.0-16.5); Immature Granulocytes Count 0.020 X10^3/uL (0.0-0.0); Mean Corp Hgb Conc 31.4 g/dL (32-36); Mean Corpuscular Volume 72.9 fL (80-94); Mean Platelet Vol. 9.8 fl (6.2-12.0); NRBC Flagged by Analyzer 0 % (0-5); Platelet Count 319 K/mm3 (150-450); RBC Distribution Width CV 19.5 % (11.6-14.6); RBC Distribution Width SD 50.1 fl (35.1-43.9); Red Blood Count 4.98 M/mm3 (4.6-6.2); White Blood Count 8.2 K/mm3 (4.4-11.0)
== END | disposition home or self-care (01) ==
LOC: LAB 14:00
PROVIDERS: PCP Family Medicine Geriatric Medicine; Referring Provider Family Medicine Geriatric Medicine; Visit Provider Family Medicine Geriatric Medicine
DX: I10 Essential (primary) hypertension (principal); D64.9 Anemia, unspecified
CPT/HCPCS: 85025

== ENCOUNTER → 2024-12-09 | Outpatient (CLI) | payer MEDICARE, SELFPAY | END | disposition home or self-care (01) | PROVIDERS: PCP Family Medicine Geriatric Medicine; Referring Provider Family Medicine Geriatric Medicine; Visit Provider Family Medicine Geriatric Medicine | DX: D64.9 Anemia, unspecified (principal) ==

== ENCOUNTER 2024-12-11 08:51 | Day surgery (SDC) | payer MEDICARE, SELFPAY ==
--- NOTE | 2024-12-06 14:11 | PAT.ANE_ITS ---
Pre-Assessment Diagnosis/Proposed Procedure Planned Operative Procedure(s): COLONOSCOPY Anesthesia History Anesthesia History - anesthesia assistant: Anesthesia History - anesthesia assistant Hx Hospitalization No 12/06/24 09:19 Any Problems With Anesthesia No 12/06/24 09:19 Cholinesterase deficiency No 12/06/24 09:19 You/Your Family Experience No 12/06/24 09:19 fever (hyperthermia) with Relationship Recent Exposure to Contagious No 12/02/24 10:30 Disease Does patient have nerve No 12/06/24 09:19 stimulator Patient instructed to have device shut off --Does patient have Pacemaker or ICD? When Was Last Pacemaker Check QUESTION #4 FULL TEXT: You/Your Family Experience fever (hyperthermia) with Anesthesia Last Oral Intake Last Oral intake: Last Oral Intake NPO since Meds taken in AM with sips of water? 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 - anesthesia assistant: PONV - anesthesia assistant Female No 12/06/24 09:19 HX of Motion Sickness No 12/06/24 09:19 HX of N/V After Surgery No 12/06/24 09:19 Non-Smoker Yes 12/06/24 09:19 Duration of Surgery greater No 12/06/24 09:19 than 60 minutes Number of Risk Factors 1 12/06/24 09:19 PONV Score Low Risk 12/06/24 09:19 Height & Weight Height & Weight: Anesthesia: Height & Weight Height 5 ft 7 in 12/04/24 13:25 Respiratory Assessment Respiratory Assessment - anesthesia assistant: Respiratory Tract Infection Hx - anesthesia assistant Hx Respiratory Tract Infection No 12/06/24 09:19 STOP Sleep Apnea STOP Sleep Apnea - anesthesia assistant: STOP Sleep Apnea - anesthesia assistant Hx Hypertension Yes: NO MED FOR 4 MONTHS/ 12/06/24 09:19 HYPOTENSION AT THIS TIME Hx Sleep Apnea No 12/06/24 09:19 CPAP BIPAP Do you snore loudly (louder No 12/06/24 09:19 than talking or can be heard Do you often feel tired/ No 12/06/24 09:19 fatigued/ sleepy during daytime? Has anyone observed you stop No 12/06/24 09:19 breathing during sleep? STOP Results Negative 12/06/24 09:19 QUESTION #5 FULL TEXT : Do you snore loudly (louder than talking or can be heard through closed doors)? 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 Specify any problems FATIGUE AND HEADACHE 12/06/24 09:19 Hx of Preganancy in last 3 N/A 12/06/24 09:19 Months Nurse Filling Out Transfusion DSCHRIBER 12/06/24 09:19 & Questions: Date: 12/06/24 12/06/24 09:19 Time: 09:21 12/06/24 09:19 Patient unable to answer at this time (ie. confused, unrespo /Reproduction History /Reproductive History - anesthesia assistant: /Reproductive Hx- anesthesia assistant Hx Now No 12/06/24 09:19 Gestational Age (in weeks): EDC: Hx Hx Para Hx Section SAB No 12/06/24 09:19 PFSH Medical History (Updated 12/06/24 @ 09:46 by Gill Ortiz) Loss of hearing Cancer Thyroid disease Bladder disease Anemia Chewing tobacco use History of diverticulitis Gastric reflux Shortness of breath on exertion History of pain when walking Hypertension History of echocardiogram Erosive esophagitis BPH (benign prostatic hyperplasia) Acute pancreatitis without necrosis or infection, unspecified Osteoporosis Wears glasses Wears dentures Arthritis High cholesterol Back pain Migraine headache Syncope Former smoker Hx of sinus bradycardia History of stress test Cardiology follow-up encounter Bradycardia Coronary artery calcification Gomez esophagus Benign neoplasm of colon COPD (chronic obstructive pulmonary disease) Home Medications ?Medication ?Instructions ?Recorded ?Last Taken ?Type aspirin 81 mg tablet,delayed 81 mg PO DAILY HEART HEAL TH 01/27/16 12/04/24 History release terazosin 1 mg capsule 1 mg PO DAILY BPH 04/18/19 0 10/05/23 History omeprazole 40 mg capsule,delayed 40 mg PO DAILY GERD 0 05/25/19 10/05/23 History release tamsulosin 0.4 mg capsule 0.4 mg PO QHS BPH 04/20/21 U nknown History budesonide 0.25 mg/2 mL suspension 0.25 mg inhalation BID COPD 10/20/21 10/05/23 History for nebulization multivitamin 1 tab PO DAILY SUPPLEMENT Unknown History finasteride 5 mg tablet 5 mg PO DAILY BPH 11/15/23 U nknown History levothyroxine 112 mcg tablet 112 mcg PO QDAY THYROID 0 11/28/23 Unknown History roflumilast 500 mcg tablet 500 mcg PO QDAY COPD Unknown History (Daliresp) albuterol 90 mcg/actuation aerosol 90 mcg inhalation P RN PRN COPD 12/02/24 Unknown History inhaler atorvastatin 80 mg tablet (Lipitor) 60 mg PO QHS JEFF STEROL 12/02/24 Unknown History Allergy/AdvReac Type Severity Reaction Status Date / Time No Known Allergies Allergy Verified 12/06/24 09:40 Family History Father Diabetes Hypertension CVA (cerebral vascular accident) Mother Thyroid disorder Arthritis Surgical History (Updated 12/06/24 @ 09:32 by Gill Ortiz) Hx of right cataract extraction Hx of left cataract extraction History of thyroidectomy, total (~10/2020) Hx of lithotripsy History of needle biopsy (09/16/20) History of colonoscopy with polypectomy History of esophagogastroduodenoscopy History of arthroscopy of knee Social History Smoking Status: Current every day smoker tobacco type: smokeless tobacco how long ago did patient quit smoking: quit 12-14 years ago alcohol intake: never substance use type: does not use what type of physical activity do you participate in: none additional social history: pt denies vaping, denies marijuana use, denies edibles, denies alcohol use, uses baby aspirin daily uses ibuprofen as needed Audit: Pertinent Findings Pertinent Findings Echo (EF%) pertinent findings: pulm htn 43/ echo Recommendation Anesthesia Recommendation Anesthesia recommendation: OPTIMIZED for anesthesia
[2024-12-11] VITALS (12 sets, daily range): BP systolic 126–162; BP diastolic 61–91; PULSE 73–93; RESP 16–38; TEMP 36.2–36.8; O2SAT 92–99; BMI 17.6
[2024-12-11] MEDS: Lactated Ringers 1,000 ML 15 ML IV (09:22)
--- NOTE | 2024-12-11 09:36 | PRE.ANES_ITS ---
ASA Classification* ASA Classification ASA Classification: 3 Assessment & Plan Anesthesia* Anesthesia Assessment Anesthesia Assessment: Discussed sedation and/or anesthesia options, risks, benefits, and alternatives with patient/parents/legal guardian/POA. Questions invited. The patient/parents/legal guardian/POA seems to understand and agrees to proceed with anesthesia plan. Reviewed the physical assessment, medical history, allergy history and patient home medications list prior to surgery/procedure/anesthetic and documented any changes. Performed airway and anesthesia risk assessments. Anesthesia Type Anesthesia Type: MAC History Source History Obtained from:: Patient and Chart Anesthesia Focused Assessment* Temperature: 98.2 F Pulse Rate: 79 Blood Pressure: 162/77 Respiratory Rate: 16 Pulse Ox: 99 Oxygen Delivery Method: Room Air Airway Assessment Mouth opens: >3 cm Mallampati Score: II Teeth Condition: Dentures Neck Range of motion (ROM): Limited ROM Labs Anesthesia Preop lab: CBC WBC, (4.4-11.0) 7.7 K/mm3 12/09/24, 10: RBC, (4.6-6.2) 5.01 M/mm3 12/09/24, 10:28 Hgb, (13.0-16.5) 11.4 g/dL L 12/09/24, 10:28 Hct, (40-54) 36.8 % L 12/09/24, 10:28 Plt Count, (150-450) 276 K/mm3 12/09/24, 10:28 CHEMISTRY Potassium, (3.3-5.1) 4.2 mmol/L 11/28/24, 16:30 Sodium, (133-145) 140 mmol/L 11/28/24, 16:30 Magnesium, (1.5-2.2) 2.0 mg/dL 12/09/24, 10:28 BUN, (4-19) 8 mg/dL 11/28/24, 16:30 Creatinine, (0.70-1.20) 0.70 mg/dL 11/28/24, 16:30 Glucose, (70-99) 100 mg/dL H 11/28/24, 16:30 TSH, (0.300-4.200) 0.074 uIU/mL L 09/16/24, 10:48 COAG PT, (11.7-14.9) 14.0 SECONDS 11/28/24, 16:30 Pre-Assessment Diagnosis/Proposed Procedure Planned Operative Procedure(s): COLONOSCOPY Anesthesia History 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 When Was Last Pacemaker Check QUESTION #4 FULL TEXT: You/Your Family Experience fever (hyperthermia) with Anesthesia Last Oral Intake Last Oral intake: Last Oral Intake NPO since 00:00 12/11/24 09:18 Meds taken in AM with sips of No 12/11/24 09:18 water? 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 operator Female No 12/06/24 09:19 HX of Motion Sickness No 12/06/24 09:19 HX of N/V After Surgery No 12/06/24 09:19 Non-Smoker Yes 12/06/24 09:19 Duration of Surgery greater No 12/06/24 09:19 than 60 minutes Number of Risk Factors 1 12/06/24 09:19 PONV Score Low Risk 12/06/24 09:19 Height & Weight Height & Weight: Anesthesia: Height & Weight Height 5 ft 7 in 12/11/24 09:18 Weight: 51 kg 12/11/24 09:18 Body Mass Index (BMI) 17.6 12/11/24 09:18 Respiratory Assessment Respiratory Assessment - self propelled dredge operator: Respiratory Tract Infection Hx - self propelled dredge operator Hx Respiratory Tract Infection No 12/06/24 09:42 STOP Sleep Apnea STOP Sleep Apnea - self propelled dredge operator: STOP Sleep Apnea - self propelled dredge operator Hx Hypertension Yes: NO MEDS FOR 4 MONTHS/ 12/06/24 09:42 CURRENTLY HYPOTENSIVE Hx Sleep Apnea No 12/06/24 09:42 CPAP BIPAP Do you snore loudly (louder No 12/06/24 09:19 than talking or can be heard Do you often feel tired/ No 12/06/24 09:19 fatigued/ sleepy during daytime? Has anyone observed you stop No 12/06/24 09:19 breathing during sleep? STOP Results Negative 12/06/24 09:19 QUESTION #5 FULL TEXT : Do you snore loudly (louder than talking or can be heard through closed doors)? 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 Specify any problems FATIGUE AND HEADACHE 12/06/24 09:19 Hx of Preganancy in last 3 N/A 12/06/24 09:19 Months Nurse Filling Out Transfusion DSCHRIBER 12/06/24 09:19 & Questions: Date: 12/06/24 12/06/24 09:19 Time: 09:21 12/06/24 09:19 Patient unable to answer at this time (ie. 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: /Reproductive Hx- self propelled dredge operator Hx Now No 12/06/24 09:19 Gestational Age (in weeks): EDC: Hx Hx Para Hx Section SAB No 12/06/24 09:42 Active Medications Active Medications: Current Medications Generic Name Dose Route Start Last Admin Trade Name Freq PRN Reason Stop Dose Admin Lactated Ringer's 1,000 mls @ 15 mls/hr 12/11/24 09:00 12/11/24 09:22 IV 15 mls/hr .Q48H LAWANDA Administration PFSH Medical History Loss of hearing Cancer Thyroid disease Bladder disease Anemia Chewing tobacco use History of diverticulitis Gastric reflux Shortness of breath on exertion History of pain when walking Hypertension History of echocardiogram Erosive esophagitis BPH (benign prostatic hyperplasia) Acute pancreatitis without necrosis or infection, unspecified Osteoporosis Wears glasses Wears dentures Arthritis High cholesterol Back pain Migraine headache Syncope Former smoker Hx of sinus bradycardia History of stress test Cardiology follow-up encounter Bradycardia Coronary artery calcification Gomez esophagus Benign neoplasm of colon COPD (chronic obstructive pulmonary disease) Home Medications ?Medication ?Instructions ?Recorded ?Last Taken ?Type aspirin 81 mg tablet,delayed 81 mg PO DAILY HEART HEAL TH 01/27/16 12/04/24 History release terazosin 1 mg capsule 1 mg PO DAILY BPH 04/18/19 0 12/10/24 History omeprazole 40 mg capsule,delayed 40 mg PO DAILY GERD 0 05/25/19 12/10/24 History release tamsulosin 0.4 mg capsule 0.4 mg PO QHS BPH 04/20/21 0 12/10/24 History budesonide 0.25 mg/2 mL suspension 0.25 mg inhalation BID COPD 10/20/21 12/10/24 History for nebulization multivitamin 1 tab PO DAILY SUPPLEMENT 12/10/24 History finasteride 5 mg tablet 5 mg PO DAILY BPH 11/15/23 0 12/10/24 History levothyroxine 112 mcg tablet 112 mcg PO QDAY THYROID 0 11/28/23 12/10/24 History roflumilast 500 mcg tablet 500 mcg PO QDAY COPD 12/10/24 History (Daliresp) albuterol 90 mcg/actuation aerosol 90 mcg inhalation P RN PRN COPD 12/02/24 0 12/11/24 History inhaler atorvastatin 80 mg tablet (Lipitor) 60 mg PO QHS JEFF STEROL 12/02/24 12/10/24 History ipratropium 0.5 mg-albuterol 3 mg 3 ml inhalation Q6H PRN shortness 12/11/24 Unknown History (2.5 mg base)/3 mL nebulization of breath or wheezing soln Allergy/AdvReac Type Severity Reaction Status Date / Time No Known Allergies Allergy Verified 12/11/24 09:12 Family History Father Diabetes Hypertension CVA (cerebral vascular accident) Mother Thyroid disorder Arthritis Surgical History Hx of right cataract extraction Hx of left cataract extraction History of thyroidectomy, total (~10/2020) Hx of lithotripsy History of needle biopsy (09/16/20) History of colonoscopy with polypectomy History of esophagogastroduodenoscopy History of arthroscopy of knee Social History Smoking Status: Current every day smoker tobacco type: smokeless tobacco how long ago did patient quit smoking: quit 12-14 years ago alcohol intake: never substance use type: does not use what type of physical activity do you participate in: none additional social history: pt denies vaping, denies marijuana use, denies edibles, denies alcohol use, uses baby aspirin daily uses ibuprofen as needed Review of Systems (Anesthesia) ROS Narrative System reviewed and no additional complaints, except as documented.
--- NOTE | 2024-12-11 09:55 | HP.PCM_ITS ---
History and Physical Date of Admission: 12/11/24 Date of Service: 12/04/24 MR#: [id number] Acct: [id number] Name: MARGAUX NEWSOME Rep #: [id number] : 1940 Provider: Dr. Zuleyma Storm MD Age/Sex: 84/M Location: [facility] Status: Signed Intake Vital Signs 12/02/2508:16 12/02/2509:30 12/04/2512:25 Height 5 ft 7 in 5 ft 7 in 5 ft 7 in Weight: 115 lb BMI 18.0 BP 127/70 H Blood Pressure Location Lt brachial Position Sitting Respiration 18 Pulse 105 H Pulse Source Monitor Pulse Oximetry (%) 98 Oxygen Delivery Method room air Intake Visit Reasons: 2ND OPINION Chief Complaint: 2nd opinion, surgery Is patient in pain?: No Allergies No Known Allergies Allergy (Verified 12/04/24 13:32) Medications ?Medication ?Instructions ?Recorded ?Confirmed ?Type aspirin 81 mg tablet,delayed 81 mg PO DAILY 01/27/16 12/04/24 History release terazosin 1 mg capsule 1 mg PO DAILY 04/18/19 12/04/24 History omeprazole 40 mg capsule,delayed 40 mg PO DAILY 05/25/19 12/04/24 History release tamsulosin 0.4 mg capsule 0.4 mg PO DAILY 04/20/21 12/04/24 Histor y budesonide 0.25 mg/2 mL suspension 0.25 mg inhalation BID 10/20/21 12/04/24 History for nebulization multivitamin 1 tab PO DAILY 12/12/22 12/04/24 History finasteride 5 mg tablet 5 mg PO DAILY 11/15/23 12/04/24 History levothyroxine 112 mcg tablet 112 mcg PO QDAY 11/28/23 12/04/24 Histor y roflumilast 500 mcg tablet 500 mcg PO QDAY 09/24/24 12/04/24 Histor y (Daliresp) albuterol 90 mcg/actuation aerosol mcg inhalation 12/02/24 12/04/24 History inhaler atorvastatin 80 mg tablet (Lipitor) 60 mg PO QHS 12/02/24 12/04/24 History metronidazole 500 mg tablet 500 mg PO .COMPLEX #6 tabs 09/10/25 09/1 0/25 Rx neomycin 500 mg tablet 500 mg PO .COMPLEX pre-op 12/04/2412/04 Rx antibiotics #6 tabs sodium sul 1.479 gram-potas ch See Rx Instructions PO PER PKG DIR 12/04/24 12/04/24 Rx 0.188 gram-magnes sul 0.225 gram #1 pkg tablet (Sutab) Have you fallen in the past year?: No PFSH Medical History Primary osteoarthritis, right shoulder Erosive esophagitis BPH (benign prostatic hyperplasia) Acute pancreatitis without necrosis or infection, unspecified Dehydration Fecal impaction Abdominal pain Nausea Right shoulder pain Vitamin D deficiency Lung nodule Osteoporosis Sebaceous cyst Postoperative primary hypothyroidism Wears glasses Wears dentures Arthritis High cholesterol Back pain Migraine headache Syncope Former smoker Hx of sinus bradycardia History of stress test Cardiology follow-up encounter Bradycardia Encounter for pre-operative cardiovascular clearance Nodule of left lobe of thyroid gland Mass of upper lobe of right lung Coronary artery calcification Essential hypertension Chronotropic incompetence Gomez esophagus Diverticulosis Mixed hyperlipidemia Benign neoplasm of colon Thyroid nodule GERD (gastroesophageal reflux disease) Kidney stones COPD (chronic obstructive pulmonary disease) Asthma Seasonal allergies Surgical History History of thyroidectomy, total (~10/2020) Hx of lithotripsy History of needle biopsy (09/16/20) History of colonoscopy with polypectomy History of esophagogastroduodenoscopy History of arthroscopy of knee History of cataract extraction Family History Father Diabetes Hypertension CVA (cerebral vascular accident) Mother Thyroid disorder Arthritis Social History Smoking Status: Former smoker quit date: 03/27/12 pack-years: 50 how long ago did patient quit smoking: quit 12-14 years ago alcohol intake: never substance use type: does not use what type of physical activity do you participate in: none additional social history: pt denies vaping, denies marijuana use, denies edibles, denies alcohol use, uses baby aspirin daily uses ibuprofen as needed HPI HPI HPI: 84-year-old male presents for a second opinion due to multiple colon polyps and 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 Patient patient and family do not want to go all the way up to [place] for an other colonoscopy and surgery. Plan was for a 2-day prep as he had a poor prep for the first 1 and a colonoscopy the first day and secondary laparoscopic right hemicolectomy. Discussed with family and the patient that would be a reasonable plan due to the poor prep. Did review patient's previous colonoscopy note, pictures and pathology. Patient did just get 2 units packed red blood cells on Monday current hemoglobin is 11.4 from 9. Patient's last colonoscopy was 12 years prior as he was told he did not need another 1 but has always had polyps in the past. ROS General General: Yes weight change and fatigue; No appetite, colon cancer, breast cancer or weakness HEENT HEENT: Yes eye surgery; No difficulty swallowing, eye injury, swollen glands or hoarseness Endo Endocrine: No thyroid disease, diabetes mellitus, thyroid cancer, Hair loss, heat intolerance or cold intolerance Skin Skin: No rash or changing moles Musc Musculoskeletal: Yes back problems and arthritis; No rheumatoid arthritis, gout or joint pain Cardio Cardiovascular: No murmur, pacemaker, heart disease, atrial fibrillation, high blood pressure, heart attack, heart stent, palpitations, shortness of breath with exertion or chest pain Psych Psychiatric: No depression, anxiety or hearing voices Resp Respiratory: Yes shortness of breath, No sleep apnea, No cough, Yes COPD, No asthma, No emphysema and No wheezing Gastro Gastrointestinal: No abdominal pain, No nausea or vomiting, No diarrhea, Yes constipation, Yes blood in stool, Yes acid reflux, Yes hemorrhoids, No ulcers, N o gallbladder problem and No black,tarry stools Pool Hematologic: No blood thinners, No blood disorders, No bleeding, Yes anemia and No blood clots Neuro Neurologic: No system reviewed and no additional complaints, except as documented, No as per HPI, No abnormal gait, No abnormal hearing, No abnormal movements, No abnormal speech, No behavioral changes, No burning sensations, No confusion, No convulsions, No disequilibrium, No dizziness, No localized weakness, No frequent falls, No headache(s), No lack of coordination, No loss of vision, No memory loss, No numbness, No other visual disturbances, No radicular pain, No restless legs, No sensory deficit, No syncope, No tingling, No tremor(s), No weakness and No other Exam Const General: cooperative, comfortable and no acute distress Nutritional Appearance: underweight [facility] Head: normocephalic and atraumatic Neck Neck: supple Resp Effort & Inspection: normal respiratory effort Cardio Rate: regular rate GI Inspection: non-distended Palpation: soft and nontender Skin General: no rashes or lesions noted Neuro General: CN's II-XI intact bilaterally Extrem General: normal to inspection Psych Mental Status: mental status grossly normal Attitude: cooperative Assessment and Plan Assessment and Plan (1) Tubulovillous adenoma: Status: Acute Comment: right cecal unresected due to size at colonoscopy (2) Multiple polyps of sigmoid colon: Status: Acute (3) Anemia: Status: Acute Orders: Orders Colonoscopy 12/11/24 Medications: New sod sulf-pot chloride-mag sulf 1.479-0.188- 0.225 gram (Sutab) PO PER PKG DIR 1 pkg 0RF metronidazole Take 2 (two) tablets at 1300, 1500, 2300 6 tabs 0RF neomycin Take two (2) 500 mg tablets PO at 1300, 1500, 2300 6 tabs 0RF pre-op antibiotics Plan Patient did to receive 2 units packed red blood cells on Monday- current hemoglobin is 11.4. Could also encourage patient to be taking protein drinks 3 daily ideally with about 30 g of protein as he has had some weight loss per daughter starting now and postoperatively. I have discussed the above with the patient. I have offered the patient colonoscopy reevaluation for any residual polyps due to previous poor prep I have explained the risks/benefits of the procedure and described the procedure. I have discussed the risks with the patient, including but not limited to: infection, bleeding, perforation of the GI tract requiring emergency surgery, inability to complete the procedure, injury to any internal organs, complications of anesthesia, etc. - the patient understands and agrees to proceed. I have answered all the patient's questions to the patient's satisfaction and the patient has no further questions. The patient has been given instructions for the colon cleansing preparation. 2- day prep, first day soft food okay then clear liquids magnesium citrate first day and then Sutab the second day Will plan for laparoscopic right hemicolectomy the following day. Did discuss the anatomy and procedure: ERAs laparoscopic right colectomy, possible open with the patient. Including risks, but not limited to, bleeding, infection (superficial or intraabdominal), injury to another organ (small bowel, colon, ureter, etc.) requiring additional procedures, and blood clots. Also, discussed the pre-op, colon prep and antibiotics. All questions were answered. Zuleyma Storm M.D. Pager: [phone] [facility] [address] [place] [address], [address] [place] [address] Office: [phone] Coding Level of Care Code Off vis,new,level 4 Diagnoses Tubulovillous adenoma D36.9 Multiple polyps of sigmoid colon K63.5 Anemia D64.9 Clinical Quality Measures Falls Risk Screening/Assistive Devices Have you fallen in the past year?: No 12/05/24 1045 <Electronically signed by Zuleyma Storm MD> Date Zuleyma Storm MD
[2024-12-11] MEDS: LACTATED RINGERS 1714.44 ML IV (10:11)
[2024-12-11 10:12] LABS: Hematocrit 35.0 % (40-54); Hemoglobin 10.8 g/dL (13.0-16.5); Immature Granulocytes Count 0.030 X10^3/uL (0.0-0.0); Mean Corp Hgb Conc 30.9 g/dL (32-36); Mean Corpuscular Volume 73.5 fL (80-94); Mean Platelet Vol. 10.0 fl (6.2-12.0); NRBC Flagged by Analyzer 0 % (0-5); POSITIVE MORPHOLOGY YES; Platelet Count 266 K/mm3 (150-450); RBC Distribution Width CV 21.2 % (11.6-14.6); RBC Distribution Width SD 55.2 fl (35.1-43.9); Red Blood Count 4.76 M/mm3 (4.6-6.2); White Blood Count 6.5 K/mm3 (4.4-11.0)
--- NOTE | 2024-12-11 10:15 | COLBX_PTH ---
PATIENT: MARGAUX NEWSOME LOC: EN U#:[id number] AGE/SX: 84/M ROOM: RE12/11/[address]: Dr. Zuleyma Storm MD : 1940 BED: DIS: 12/11/2024 SPEC #: [id number] RECD: 12/11/24 12:58 STATUS: EMELY REAdriana #: [id number] ELSA: 12/11/24 10:[address]: Zuleyma Storm DEPT: SURGICAL PATHOLOGY RECD BY: Quinten Lynn ENTERED: 12/11/24 13:35 SP TYPE: COLON BX OTHR DR: Dr. Alexander Steiner MD Tissues: A - Sigmoid colon biopsy B - Transverse colon C - Descending colon D - Descending colon E - Sigmoid colon biopsy F - Sigmoid colon biopsy Procedures: Frozen Section (charge) Surgery Specimen Level IV HEADER OPERATION: Colonoscopy with polypectomy, tattoo application PRE-OP DIAGNOSIS: Tubulovillous adenoma, multiple polyps of sigmoid colon, anemia TISSUE SUBMITTED: A- Sigmoid colon polyp #2, B- Transverse colon polyp x2, C- Descending colon polyp, D- Descending colon polyp #2 (60cm), E- Sigmoid colon polyp (40cm) F- Sigmoid colon polyp #3 FROZEN SECTION DIAGNOSIS A. Sigmoid colon, polyp, biopsy: Deferred to permanents (rapid overnight processing). MS/mr 12/11/2024 MICROSCOPIC DIAGNOSIS A. Sigmoid colon, polyp #2, biopsy: - Tubulovillous adenoma - see note. Note: The stalk is fragmented, limiting assessment of the surgical margin. The presumed surgical margin identified by cautery artifact is negative for dysplasia. No high grade dysplasia or invasive carcinoma is seen in these sections. Stalk hemorrhage and fragments of blood clot are also noted. B. Transverse colon, polyp, biopsy: - Tubulovillous adenoma, multiple fragments. C. Descending colon, polyp, biopsy: - Tubular adenoma. D. Descending colon, polyp #2, biopsy: - Tubulovillous adenoma, multiple fragments. E. Sigmoid colon, polyp, biopsy: - Tubulovillous adenoma, multiple fragments. F. Sigmoid colon, polyp #3, biopsy: - Tubulovillous adenoma. COMMENT The diagnosis is called to Dr Brandi Storm at 8:39 AM 12/12/[address] Celia Moss.. MICROSCOPIC DESCRIPTION Slides are reviewed. GROSS DESCRIPTION A. Received fresh labeled patient's name and date of . Designated as 0.5 cm sigmoid colon polyp #2 is a pink-red, friable polypoid tissue fragment with an attached stalk, collectively measuring 2.5 x 2.5 x 1.2 cm in aggregate. The stalk is inked black. The intact portion is serially sectioned. Entirely submitted in 4 cassettes, for rapid overnight processing. B. Received in fixative is one container labeled with the patient's name and designated Transverse colon polyp x2 are multiple irregular fragments of light weber soft tissue admixed with flocculent material, that in aggregate measure 1.2 x 0.8 x 0.3 cm. The specimen is totally submitted in one cassette. C. Received in fixative is one container labeled with the patient's name and designated Descending colon polyp is one irregular fragment of light weber soft tissue that measures 0.8 x 0.8 x 0.2 cm; a presumed margin is inked blue and the fragment is bisected. The specimen is totally submitted in one cassette. D. Received in fixative is one container labeled with the patient's name and designated Descending colon polyp #2 - 60 cm x3 are multiple irregular fragments of light weber soft tissue, admixed with flocculent material, that in aggregate measure 1.7 x 1.6 x 0.3 cm. The specimen is totally submitted in one cassette. No definitive margins are identified grossly. E. Received in fixative is one container labeled with the patient's name and designated Sigmoid colon polyp - 40cm. are multiple irregular fragments of light weber soft tissue that in aggregate measure 1.6 x 1.2 x 0.3 cm. The specimen is totally submitted in one cassette. F. Received in fixative is one container labeled with the patient's name and designated Sigmoid colon polyp #3. Is one irregular fragment of light weber soft tissue that measures 0.7 x 0.3 x 0.3 cm. The specimen is totally submitted in one cassette; presumed margin is inked black.. MD 12/11/2024 CPT:10205t9
[2024-12-11] MEDS: Lidocaine 1% (5 ml sdv) 5 ML Vial 6 ML IV (10:18)
[2024-12-11 10:43] LABS: Differential Indicated SCAN CRITERIA MET
[2024-12-11 10:59] LABS: Anisocytosis RARE
--- NOTE | 2024-12-11 12:21 | OP.COLON_ITS ---
Patient Name: Mynor Sanderson Procedure Date: 12/11/2024 10:05 AM Date of : 1940 Age: 84 Procedure: Colonoscopy Indications: Gastrointestinal occult blood loss, Follow-up for history of adenomatous polyps in the colon Providers: Zuleyma Storm MD Referring MD: Alexander Steiner MD Medicines: Monitored Anesthesia Care Patient Profile: This is an 84 year old male. Last Colonoscopy: within the past month. Complications: No immediate complications. Procedure: Pre-Anesthesia Assessment: - Prior to the procedure, a History and Physical was performed, and patient medications and allergies were reviewed. The patient's tolerance of previous anesthesia was also reviewed. The risks and benefits of the procedure and the sedation options and risks were discussed with the patient. All questions were answered, and informed consent was obtained. Prior Anticoagulants: The patient has taken no anticoagulant or antiplatelet agents. ASA Grade Assessment: Per anesthesia. After reviewing the risks and benefits, the patient was deemed in satisfactory condition to undergo the procedure. - Prior to the procedure, a History and Physical was performed, and patient medications and allergies were reviewed. The patient's tolerance of previous anesthesia was also reviewed. The risks and benefits of the procedure and the sedation options and risks were discussed with the patient. All questions were answered, and informed consent was obtained. Prior Anticoagulants: The patient has taken no anticoagulant or antiplatelet agents except for aspirin. ASA Grade Assessment: Per anesthesia. After reviewing the risks and benefits, the patient was deemed in satisfactory condition to undergo the procedure. After I obtained informed consent, the scope was passed under direct vision. Throughout the procedure, the patient's blood pressure, pulse, and oxygen saturations were monitored continuously. The pediatric colonoscope was introduced through the anus and advanced to the cecum, identified by the appendiceal orifice, ileocecal valve and palpation. The colonoscopy was performed with moderate difficulty due to a redundant colon and a tortuous colon, polyps just around fold/turn. [Solution]. Scope In: 10:19:26 AM Scope Withdrawal Time 1 hour 18 minutes 29 seconds Scope Out: 11:46:00 AM Total Procedure Duration Time 1 hour 26 minutes 34 seconds Findings: The perianal and digital rectal examinations were normal. Seven semi-pedunculated polyps were found in the sigmoid colon, descending colon and transverse colon. The polyps were 3 to 6 mm in size. These polyps were removed with a hot snare. Resection and retrieval were complete. A 25 mm polyp was found in the sigmoid colon. The polyp was semi-pedunculated. The polyp was removed with a piecemeal technique using a hot snare. Resection and retrieval were complete. Sent for frozen/ r/o malignancy- friable tissue; due to tortuous colon/redundant colon unable to visualize base on re-entry after retrieving polyp. Estimated blood loss was minimal. An 8 mm polyp was found in the sigmoid colon. The polyp was semi-pedunculated. The polyp was removed with a hot snare. Resection and retrieval were complete. Area was tattooed with an injection of Fiona ink. at 40 cm Multiple carpet-like and multi-lobulated, non-bleeding polyps were found in the hepatic flexure, ascending colon and cecum. The polyps were medium in size. Polypectomy was not attempted due to polyp size (too large to be excised). Area was tattooed with an injection of Fiona ink-distal to hepatic flexure polyps (most distal polyps not removed). Polypectomy was not attempted due to polyp size (too large to be excised). Impression: - Seven 3 to 6 mm polyps in the sigmoid colon, in the descending colon and in the transverse colon, removed with a hot snare. Resected and retrieved. - One 25 mm polyp in the sigmoid colon, removed piecemeal using a hot snare. Resected and retrieved. - One 8 mm polyp in the sigmoid colon, removed with a hot snare. Resected and retrieved. Tattooed. - Multiple medium, non-bleeding polyps at the hepatic flexure, in the ascending colon and in the cecum. Resection not attempted. Tattooed. Recommendation: - Repeat colonoscopy 6 month- 1 year for surveillance based on pathology results. - Discharge patient to home. - Clear liquid diet today. - Continue present medications. - No aspirin, ibuprofen, naproxen, or other non-steroidal anti-inflammatory drugs for 3 days after polyp removal. 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 Procedure Code(s): --- Professional --- 40347, Colonoscopy, flexible; with removal of tumor(s), polyp(s), or other lesion(s) by snare technique 73446, Colonoscopy, flexible; with directed submucosal injection(s), any substance Diagnosis Code(s): --- Professional --- D12.5, Benign neoplasm of sigmoid colon D12.4, Benign neoplasm of descending colon D12.3, Benign neoplasm of transverse colon (hepatic flexure or splenic flexure) D12.2, Benign neoplasm of ascending colon D12.0, Benign neoplasm of cecum R19.5, Other fecal abnormalities Z86.010, Personal history of colonic polyps CPT copyright 2021 [employer]. All rights reserved. The codes documented in this report are preliminary and upon banking assistant review may be revised to meet current compliance requirements. MD Zuleyma Doe MD 12/11/2024 12:21:27 PM This report has been signed electronically. Number of Addenda: 0 Note Initiated On: 12/11/2024 10:05 AM
--- NOTE | 2024-12-11 12:22 | OP.PROVAT_ITS ---
12/11/2024 Alexander Steiner MD [address] [place] [address] Re : Colonoscopy procedure for Mynor Sanderson Dear Dr. Steiner This procedure was performed on Wednesday, December 11, 2024. My impressions and recommendations are as follows: Impressions : - Seven 3 to 6 mm polyps in the sigmoid colon, in the descending colon and in the transverse colon, removed with a hot snare. Resected and retrieved. - One 25 mm polyp in the sigmoid colon, removed piecemeal using a hot snare. Resected and retrieved. - One 8 mm polyp in the sigmoid colon, removed with a hot snare. Resected and retrieved. Tattooed. - Multiple medium, non-bleeding polyps at the hepatic flexure, in the ascending colon and in the cecum. Resection not attempted. Tattooed. Recommendations : - Repeat colonoscopy 6 month- 1 year for surveillance based on pathology results. - Discharge patient to home. - Clear liquid diet today. - Continue present medications. - No aspirin, ibuprofen, naproxen, or other non-steroidal anti-inflammatory drugs for 3 days after polyp removal. 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 My findings are described in the full procedure note, which is enclosed. If I can be of further assistance, please feel free to contact me at Doctor phone number(s): , Work: . Sincerely, MD Zuleyma Doe MD 12/11/2024 12:21:27 PM This report has been signed electronically.
--- NOTE | 2024-12-11 13:29 | PCM.POSTANE2 ---
Anesthesia Postop Eval I Sum Anesthesia Postop Eval I Summary Anesthesia Postop Eval I Summary: Anesthesia Postop Eval I: Assessment Summary Airway patent Spontaneous unlabored respirations Mental status nausea Vomiting Anesthesia Postop Eval I: Fluid Summary Crystalloid volume administer (ml) Colloids volume administered ( ml) Blood Product volume administered (ml) Total IV fluid infused Anesthesia Postop Eval I: Summary Notes Anesthesia Complication Anesthesia Complication Comment: Post-operative progress note Anesthesia: Postop Eval II Evaluation Mental status: Awake and Calm Pain Level: 1 nausea: No Vomiting: No Complications Anesthesia Complication: No
== END 2024-12-11 15:32 | disposition home or self-care (01) ==
LOC: EN 08:51 → AC 08:52
PROVIDERS: PCP Family Medicine Geriatric Medicine; Referring Provider Family Medicine Geriatric Medicine; Visit Provider Surgery
PROC: 0DJD8ZZ Inspection of Lower Intestinal Tract, Via Natural or Artificial Opening Endoscopic (ICD-10-PCS; CPT 45378; principal; 2024-12-11 10:10)
DX: D12.0 Benign neoplasm of cecum (principal); J44.9 Chronic obstructive pulmonary disease, unspecified; Z87.891 Personal history of nicotine dependence; D64.9 Anemia, unspecified; I10 Essential (primary) hypertension; E78.2 Mixed hyperlipidemia; K21.9 Gastro-esophageal reflux disease without esophagitis; Z79.899 Other long term (current) drug therapy; N40.0 Benign prostatic hyperplasia without lower urinary tract symptoms; Z79.82 Long term (current) use of aspirin; K63.5 Polyp of colon; R19.5 Other fecal abnormalities; Z86.0100 Personal history of colon polyps, unspecified
CPT/HCPCS: 45381; 45385; 85025; 88305; 88331; A4216; A4648

== ENCOUNTER 2024-12-26 09:58 | Inpatient (IN) | payer MEDICARE, SELFPAY ==
--- NOTE | 2024-12-06 10:05 | PAT.ANESEVAL ---
Pre-Assessment Diagnosis/Proposed Procedure Planned Operative Procedure(s): LAPAROSCOPIC POSS OPEN RIGHT ZOE COLECTOMY Anesthesia History Anesthesia History - sr vice president: Anesthesia History - sr vice president Hx Hospitalization No 12/06/24 09:42 Any Problems With Anesthesia No 12/06/24 09:42 Cholinesterase deficiency No 12/06/24 09:42 You/Your Family Experience No 12/06/24 09:42 fever (hyperthermia) with Relationship Recent Exposure to Contagious No 12/02/24 10:30 Disease Does patient have nerve No 12/06/24 09:42 stimulator Patient instructed to have device shut off --Does patient have Pacemaker or ICD? When Was Last Pacemaker Check QUESTION #4 FULL TEXT: You/Your Family Experience fever (hyperthermia) with Anesthesia Last Oral Intake Last Oral intake: Last Oral Intake NPO since Meds taken in AM with sips of water? 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 - sr vice president: PONV - sr vice president Female No 12/06/24 09:42 HX of Motion Sickness No 12/06/24 09:42 HX of N/V After Surgery No 12/06/24 09:42 Non-Smoker No 12/06/24 09:42 Duration of Surgery greater Yes 12/06/24 09:42 than 60 minutes Number of Risk Factors 1 12/06/24 09:42 PONV Score Low Risk 12/06/24 09:42 Height & Weight Height & Weight: Anesthesia: Height & Weight Height 5 ft 7 in 12/04/24 13:25 Respiratory Assessment Respiratory Assessment - sr vice president: Respiratory Tract Infection Hx - sr vice president Hx Respiratory Tract Infection No 12/06/24 09:42 STOP Sleep Apnea STOP Sleep Apnea - sr vice president: STOP Sleep Apnea - sr vice president Hx Hypertension Yes: NO MEDS FOR 4 MONTHS/ 12/06/24 09:42 CURRENTLY HYPOTENSIVE Hx Sleep Apnea No 12/06/24 09:42 CPAP BIPAP Do you snore loudly (louder No 12/06/24 09:42 than talking or can be heard Do you often feel tired/ No 12/06/24 09:42 fatigued/ sleepy during daytime? Has anyone observed you stop No 12/06/24 09:42 breathing during sleep? STOP Results Negative 12/06/24 09:42 QUESTION #5 FULL TEXT : Do you snore loudly (louder than talking or can be heard through closed doors)? 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 Specify any problems FATIGUE AND HEADACHE 12/06/24 09:42 Hx of Preganancy in last 3 N/A 12/06/24 09:42 Months Nurse Filling Out Transfusion DSCHRIBER 12/06/24 09:42 & Questions: Date: 12/06/24 12/06/24 09:42 Time: 09:43 12/06/24 09:42 Patient unable to answer at this time (ie. confused, unrespo /Reproduction History /Reproductive History - sr vice president: /Reproductive Hx- sr vice president Hx Now No 12/06/24 09:42 Gestational Age (in weeks): EDC: Hx Hx Para Hx Section SAB No 12/06/24 09:42 PFSH Medical History (Updated 12/06/24 @ 09:46 by Gill Ortiz) Loss of hearing Cancer Thyroid disease Bladder disease Anemia Chewing tobacco use History of diverticulitis Gastric reflux Shortness of breath on exertion History of pain when walking Hypertension History of echocardiogram Erosive esophagitis BPH (benign prostatic hyperplasia) Acute pancreatitis without necrosis or infection, unspecified Osteoporosis Wears glasses Wears dentures Arthritis High cholesterol Back pain Migraine headache Syncope Former smoker Hx of sinus bradycardia History of stress test Cardiology follow-up encounter Bradycardia Coronary artery calcification Gomez esophagus Benign neoplasm of colon COPD (chronic obstructive pulmonary disease) Home Medications ?Medication ?Instructions ?Recorded ?Last Taken ?Type aspirin 81 mg tablet,delayed 81 mg PO DAILY HEART HEALTH 01/27/16 12/04/24 History release terazosin 1 mg capsule 1 mg PO DAILY BPH 04/18/19 10/05/23 History omeprazole 40 mg capsule,delayed 40 mg PO DAILY GERD 05/25/19 10/05/23 History release tamsulosin 0.4 mg capsule 0.4 mg PO QHS BPH 04/20/21 Unknown History budesonide 0.25 mg/2 mL suspension 0.25 mg inhalation BID COPD 10/20/21 10/05/23 History for nebulization multivitamin 1 tab PO DAILY SUPPLEMENT 12/12/22 Unknown History finasteride 5 mg tablet 5 mg PO DAILY BPH 11/15/23 Unknown History levothyroxine 112 mcg tablet 112 mcg PO QDAY THYROID 11/28/23 Unknown History roflumilast 500 mcg tablet 500 mcg PO QDAY COPD 09/24/24 Unknown History (Daliresp) albuterol 90 mcg/actuation aerosol 90 mcg inhalation PRN PRN COPD 12/02/24 Unknown History inhaler atorvastatin 80 mg tablet (Lipitor) 60 mg PO QHS CHOLESTEROL 12/02/24 Unknown History Allergy/AdvReac Type Severity Reaction Status Date / Time No Known Allergies Allergy Verified 12/06/24 09:40 Family History Father Diabetes Hypertension CVA (cerebral vascular accident) Mother Thyroid disorder Arthritis Surgical History (Updated 12/06/24 @ 09:32 by Gill Ortiz) Hx of right cataract extraction Hx of left cataract extraction History of thyroidectomy, total (~10/2020) Hx of lithotripsy History of needle biopsy (09/16/20) History of colonoscopy with polypectomy History of esophagogastroduodenoscopy History of arthroscopy of knee Social History Smoking Status: Current every day smoker tobacco type: smokeless tobacco how long ago did patient quit smoking: quit 12-14 years ago alcohol intake: never substance use type: does not use what type of physical activity do you participate in: none additional social history: pt denies vaping, denies marijuana use, denies edibles, denies alcohol use, uses baby aspirin daily uses ibuprofen as needed Audit: Pertinent Findings Pertinent Findings Echo (EF%) pertinent findings: pulm HTN 43/ echo Recommendation Anesthesia Recommendation Anesthesia recommendation: OPTIMIZED for anesthesia
--- NOTE | 2024-12-06 10:07 | PAT.ANESEVAL ---
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 When Was Last Pacemaker Check QUESTION #4 FULL TEXT: You/Your Family Experience fever (hyperthermia) with Anesthesia Last Oral Intake Last Oral intake: Last Oral Intake NPO since Meds taken in AM with sips of water? 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 Has anyone observed you stop No 12/06/24 09:42 breathing during sleep? STOP Results Negative 12/06/24 09:42 QUESTION #5 FULL TEXT : Do you snore loudly (louder than talking or can be heard through closed doors)? 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 Specify any problems FATIGUE AND HEADACHE 12/06/24 09:42 Hx of Preganancy in last 3 N/A 12/06/24 09:42 Months Nurse Filling Out Transfusion DSCHRIBER 12/06/24 09:42 & Questions: Date: 12/06/24 12/06/24 09:42 Time: 09:43 12/06/24 09:42 Patient unable to answer at this time (ie. confused, unrespo /Reproduction History /Reproductive History - men's basketball coach: /Reproductive Hx- men's basketball coach Hx Now No 12/06/24 09:42 Gestational Age (in weeks): EDC: Hx Hx Para Hx Section SAB No 12/06/24 09:42 PFSH Medical History (Updated 12/06/24 @ 09:46 by Gill Ortiz) Loss of hearing Cancer Thyroid disease Bladder disease Anemia Chewing tobacco use History of diverticulitis Gastric reflux Shortness of breath on exertion History of pain when walking Hypertension History of echocardiogram Erosive esophagitis BPH (benign prostatic hyperplasia) Acute pancreatitis without necrosis or infection, unspecified Osteoporosis Wears glasses Wears dentures Arthritis High cholesterol Back pain Migraine headache Syncope Former smoker Hx of sinus bradycardia History of stress test Cardiology follow-up encounter Bradycardia Coronary artery calcification Gomez esophagus Benign neoplasm of colon COPD (chronic obstructive pulmonary disease) Home Medications ?Medication ?Instructions ?Recorded ?Last Taken ?Type aspirin 81 mg tablet,delayed 81 mg PO DAILY HEART HEALTH 01/27/16 12/04/24 History release terazosin 1 mg capsule 1 mg PO DAILY BPH 04/18/19 10/05/23 History omeprazole 40 mg capsule,delayed 40 mg PO DAILY GERD 05/25/19 10/05/23 History release tamsulosin 0.4 mg capsule 0.4 mg PO QHS BPH 04/20/21 Unknown History budesonide 0.25 mg/2 mL suspension 0.25 mg inhalation BID COPD 10/20/21 10/05/23 History for nebulization multivitamin 1 tab PO DAILY SUPPLEMENT 12/12/22 Unknown History finasteride 5 mg tablet 5 mg PO DAILY BPH 11/15/23 Unknown History levothyroxine 112 mcg tablet 112 mcg PO QDAY THYROID 11/28/23 Unknown History roflumilast 500 mcg tablet 500 mcg PO QDAY COPD 09/24/24 Unknown History (Daliresp) albuterol 90 mcg/actuation aerosol 90 mcg inhalation PRN PRN COPD 12/02/24 Unknown History inhaler atorvastatin 80 mg tablet (Lipitor) 60 mg PO QHS CHOLESTEROL 12/02/24 Unknown History Allergy/AdvReac Type Severity Reaction Status Date / Time No Known Allergies Allergy Verified 12/06/24 09:40 Family History Father Diabetes Hypertension CVA (cerebral vascular accident) Mother Thyroid disorder Arthritis Surgical History (Updated 12/06/24 @ 09:32 by Gill Ortiz) Hx of right cataract extraction Hx of left cataract extraction History of thyroidectomy, total (~10/2020) Hx of lithotripsy History of needle biopsy (09/16/20) History of colonoscopy with polypectomy History of esophagogastroduodenoscopy History of arthroscopy of knee Social History Smoking Status: Current every day smoker tobacco type: smokeless tobacco how long ago did patient quit smoking: quit 12-14 years ago alcohol intake: never substance use type: does not use what type of physical activity do you participate in: none additional social history: pt denies vaping, denies marijuana use, denies edibles, denies alcohol use, uses baby aspirin daily uses ibuprofen as needed Audit: Pertinent Findings HISTORY of Pertinent Findings History of Pertinent Findings: Echo Pertinent Findings Echo (EF%) pertinent findings pulm HTN 43/ echo 12/06/24 10:07 Pertinent Findings Echo (EF%) pertinent findings: pulm htn per echo (43) Recommendation Anesthesia Recommendation Anesthesia recommendation: OPTIMIZED for anesthesia
--- NOTE | 2024-12-06 10:18 | PAT.ANE_ITS ---
Pre-Assessment Diagnosis/Proposed Procedure Planned Operative Procedure(s): LAPAROSCOPIC POSS OPEN RIGHT ZOE COLECTOMY Anesthesia History Anesthesia History - search coordinator: Anesthesia History - search coordinator Hx Hospitalization No 12/06/24 09:42 Any Problems With Anesthesia No 12/06/24 09:42 Cholinesterase deficiency No 12/06/24 09:42 You/Your Family Experience No 12/06/24 09:42 fever (hyperthermia) with Relationship Recent Exposure to Contagious No 12/02/24 10:30 Disease Does patient have nerve No 12/06/24 09:42 stimulator Patient instructed to have device shut off --Does patient have Pacemaker or ICD? When Was Last Pacemaker Check QUESTION #4 FULL TEXT: You/Your Family Experience fever (hyperthermia) with Anesthesia Last Oral Intake Last Oral intake: Last Oral Intake NPO since Meds taken in AM with sips of water? 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 - search coordinator: PONV - search coordinator Female No 12/06/24 09:42 HX of Motion Sickness No 12/06/24 09:42 HX of N/V After Surgery No 12/06/24 09:42 Non-Smoker No 12/06/24 09:42 Duration of Surgery greater Yes 12/06/24 09:42 than 60 minutes Number of Risk Factors 1 12/06/24 09:42 PONV Score Low Risk 12/06/24 09:42 Height & Weight Height & Weight: Anesthesia: Height & Weight Height 5 ft 7 in 12/04/24 13:25 Respiratory Assessment Respiratory Assessment - search coordinator: Respiratory Tract Infection Hx - search coordinator Hx Respiratory Tract Infection No 12/06/24 09:42 STOP Sleep Apnea STOP Sleep Apnea - search coordinator: STOP Sleep Apnea - search coordinator Hx Hypertension Yes: NO MEDS FOR 4 MONTHS/ 12/06/24 09:42 CURRENTLY HYPOTENSIVE Hx Sleep Apnea No 12/06/24 09:42 CPAP BIPAP Do you snore loudly (louder No 12/06/24 09:42 than talking or can be heard Do you often feel tired/ No 12/06/24 09:42 fatigued/ sleepy during daytime? Has anyone observed you stop No 12/06/24 09:42 breathing during sleep? STOP Results Negative 12/06/24 09:42 QUESTION #5 FULL TEXT : Do you snore loudly (louder than talking or can be heard through closed doors)? 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 Specify any problems FATIGUE AND HEADACHE 12/06/24 09:42 Hx of Preganancy in last 3 N/A 12/06/24 09:42 Months Nurse Filling Out Transfusion DSCHRIBER 12/06/24 09:42 & Questions: Date: 12/06/24 12/06/24 09:42 Time: 09:43 12/06/24 09:42 Patient unable to answer at this time (ie. confused, unrespo /Reproduction History /Reproductive History - search coordinator: /Reproductive Hx- search coordinator Hx Now No 12/06/24 09:42 Gestational Age (in weeks): EDC: Hx Hx Para Hx Section SAB No 12/06/24 09:42 PFSH Medical History (Updated 12/06/24 @ 09:46 by Gill Ortiz) Loss of hearing Cancer Thyroid disease Bladder disease Anemia Chewing tobacco use History of diverticulitis Gastric reflux Shortness of breath on exertion History of pain when walking Hypertension History of echocardiogram Erosive esophagitis BPH (benign prostatic hyperplasia) Acute pancreatitis without necrosis or infection, unspecified Osteoporosis Wears glasses Wears dentures Arthritis High cholesterol Back pain Migraine headache Syncope Former smoker Hx of sinus bradycardia History of stress test Cardiology follow-up encounter Bradycardia Coronary artery calcification Gomez esophagus Benign neoplasm of colon COPD (chronic obstructive pulmonary disease) Home Medications ?Medication ?Instructions ?Recorded ?Last Taken ?Type aspirin 81 mg tablet,delayed 81 mg PO DAILY HEART HEAL TH 01/27/16 12/04/24 History release terazosin 1 mg capsule 1 mg PO DAILY BPH 04/18/19 0 10/05/23 History omeprazole 40 mg capsule,delayed 40 mg PO DAILY GERD 0 05/25/19 10/05/23 History release tamsulosin 0.4 mg capsule 0.4 mg PO QHS BPH 04/20/21 U nknown History budesonide 0.25 mg/2 mL suspension 0.25 mg inhalation BID COPD 10/20/21 10/05/23 History for nebulization multivitamin 1 tab PO DAILY SUPPLEMENT Unknown History finasteride 5 mg tablet 5 mg PO DAILY BPH 11/15/23 U nknown History levothyroxine 112 mcg tablet 112 mcg PO QDAY THYROID 0 11/28/23 Unknown History roflumilast 500 mcg tablet 500 mcg PO QDAY COPD Unknown History (Daliresp) albuterol 90 mcg/actuation aerosol 90 mcg inhalation P RN PRN COPD 12/02/24 Unknown History inhaler atorvastatin 80 mg tablet (Lipitor) 60 mg PO QHS JEFF STEROL 12/02/24 Unknown H istory Allergy/AdvReac Type Severity Reaction Status Date / Time No Known Allergies Allergy Verified 12/06/24 09:40 Family History Father Diabetes Hypertension CVA (cerebral vascular accident) Mother Thyroid disorder Arthritis Surgical History (Updated 12/06/24 @ 09:32 by Gill Ortiz) Hx of right cataract extraction Hx of left cataract extraction History of thyroidectomy, total (~10/2020) Hx of lithotripsy History of needle biopsy (09/16/20) History of colonoscopy with polypectomy History of esophagogastroduodenoscopy History of arthroscopy of knee Social History Smoking Status: Current every day smoker tobacco type: smokeless tobacco how long ago did patient quit smoking: quit 12-14 years ago alcohol intake: never substance use type: does not use what type of physical activity do you participate in: none additional social history: pt denies vaping, denies marijuana use, denies edibles, denies alcohol use, uses baby aspirin daily uses ibuprofen as needed Audit: Pertinent Findings HISTORY of Pertinent Findings History of Pertinent Findings: Echo Pertinent Findings Echo (EF%) pertinent findings pulm htn per echo (43) 12/06/24 10:08 Echo (EF%) pertinent findings pulm HTN 43/ echo 12/06/24 10:07 Pertinent Findings Echo (EF%) pertinent findings: pulm htn 3 per echo Recommendation Anesthesia Recommendation Anesthesia recommendation: OPTIMIZED for anesthesia
[2024-12-09 10:57] LABS: Hematocrit 36.8 % (40-54); Hemoglobin 11.4 g/dL (13.0-16.5); Immature Granulocytes Count 0.020 X10^3/uL (0.0-0.0); Mean Corp Hgb Conc 31.0 g/dL (32-36); Mean Corpuscular Volume 73.5 fL (80-94); Mean Platelet Vol. 10.1 fl (6.2-12.0); NRBC Flagged by Analyzer 0 % (0-5); POSITIVE MORPHOLOGY YES; Platelet Count 276 K/mm3 (150-450); RBC Distribution Width CV 21.2 % (11.6-14.6); RBC Distribution Width SD 54.6 fl (35.1-43.9); Red Blood Count 5.01 M/mm3 (4.6-6.2); White Blood Count 7.7 K/mm3 (4.4-11.0)
[2024-12-09 11:09] LABS: Differential Indicated SCAN CRITERIA MET
[2024-12-09 11:39] LABS: Magnesium 2.0 mg/dL (1.5-2.2)
[2024-12-09 12:28] LABS: Anisocytosis 1+
--- NOTE | 2024-12-11 11:54 | PCM.POST.ANE ---
Anesthesia: Postop Eval I Current Vital Signs Temperature: 97.4 F Pulse Rate: 76 Blood Pressure: 143/86 Respiratory Rate: 16 Pulse Ox: 94 Oxygen Delivery Method: Room Air Assessment Airway patent: Yes Spontaneous unlabored respirations: Yes Mental status: Calm nausea: No Vomiting: No Anesthesia Complication: No Fluid Hydration Crystalloid volume administer (ml): 1,714 Total IV fluid infused: 1,714 Progress Note Anesthesia document: Postop Eval 1 completed: Yes
[2024-12-12 18:55] VITALS: BP 143/86; PULSE 76; RESP 16; TEMP 36.3; O2SAT 94
--- NOTE | 2024-12-13 08:24 | PCM.POSTANE2 ---
Anesthesia Postop Eval I Sum Postop Eval Completion status Anesthesia document: Postop Eval 1 completed: Yes Anesthesia Postop Eval I Summary Anesthesia Postop Eval I Summary: Anesthesia Postop Eval I: Assessment Summary Airway patent Yes 12/12/24 18:55 Spontaneous unlabored Yes 12/12/24 18:55 respirations Mental status Calm 12/12/24 18:55 nausea No 12/12/24 18:55 Vomiting No 12/12/24 18:55 Anesthesia Postop Eval I: Fluid Summary Crystalloid volume administer 1,714 12/12/24 18:55 (ml) Colloids volume administered ( ml) Blood Product volume administered (ml) Total IV fluid infused ,714 12/12/24 18:55 Anesthesia Postop Eval I: Summary Notes Anesthesia Complication No 12/12/24 18:55 Anesthesia Complication Comment: Post-operative progress note Anesthesia: Postop Eval II Evaluation Mental status: Awake Pain Level: 0 nausea: No Vomiting: No
[2024-12-26] VITALS (19 sets, daily range): BP systolic 106–144; BP diastolic 59–89; PULSE 62–104; RESP 16–18; TEMP 36.3–36.9; O2SAT 92–99; BMI 17.6
[2024-12-26] MEDS: Magnesium 1 GM over 15 mins IV (06:28)
[2024-12-26] MEDS: Lactated Ringers 1,000 ML 15 ML IV (06:28)
--- NOTE | 2024-12-26 07:12 | PCM.HP.BLA ---
History and Physical Date of Admission: 12/26/24 History and Physical Date of Admission: 12/11/24 Date of Service: 12/04/24 MR#: [id number] Acct: [id number] Name: MARGAUX NEWSOME Rep #: [id number] : 1940 Provider: Dr. Zuleyma Storm MD Age/Sex: 84/M Location: [facility] Status: Signed Intake Vital Signs 12/02/2508:16 12/02/2509:30 12/04/2512:25 Height 5 ft 7 in 5 ft 7 in 5 ft 7 in Weight: 115 lb BMI 18.0 BP 127/70 H Blood Pressure Location Lt brachial Position Sitting Respiration 18 Pulse 105 H Pulse Source Monitor Pulse Oximetry (%) 98 Oxygen Delivery Method room air Intake Visit Reasons: 2ND OPINION Chief Complaint: 2nd opinion, surgery Is patient in pain?: No Allergies No Known Allergies Allergy (Verified 12/04/24 13:32) Medications ?Medication ?Instructions ?Recorded ?Confirmed ?Type aspirin 81 mg tablet,delayed 81 mg PO DAILY 01/27/16 12/04/24 History release terazosin 1 mg capsule 1 mg PO DAILY 04/18/19 12/04/24 History omeprazole 40 mg capsule,delayed 40 mg PO DAILY 05/25/19 12/04/24 History release tamsulosin 0.4 mg capsule 0.4 mg PO DAILY 04/20/21 12/04/24 History budesonide 0.25 mg/2 mL suspension 0.25 mg inhalation BID 10/20/21 12/04/24 History for nebulization multivitamin 1 tab PO DAILY 12/12/22 12/04/24 History finasteride 5 mg tablet 5 mg PO DAILY 11/15/23 12/04/24 History levothyroxine 112 mcg tablet 112 mcg PO QDAY 11/28/23 12/04/24 History roflumilast 500 mcg tablet 500 mcg PO QDAY 09/24/24 12/04/24 History (Daliresp) albuterol 90 mcg/actuation aerosol mcg inhalation 12/02/24 12/04/24 History inhaler atorvastatin 80 mg tablet (Lipitor) 60 mg PO QHS 12/02/24 12/04/24 History metronidazole 500 mg tablet 500 mg PO .COMPLEX #6 tabs 12/04/24 12/04/24 Rx neomycin 500 mg tablet 500 mg PO .COMPLEX pre-op 12/04/24 12/04/24 Rx antibiotics #6 tabs sodium sul 1.479 gram-potas ch See Rx Instructions PO PER PKG DIR 12/04/24 12/04/24 Rx 0.188 gram-magnes sul 0.225 gram #1 pkg tablet (Sutab) Have you fallen in the past year?: No PFSH Medical History Primary osteoarthritis, right shoulder Erosive esophagitis BPH (benign prostatic hyperplasia) Acute pancreatitis without necrosis or infection, unspecified Dehydration Fecal impaction Abdominal pain Nausea Right shoulder pain Vitamin D deficiency Lung nodule Osteoporosis Sebaceous cyst Postoperative primary hypothyroidism Wears glasses Wears dentures Arthritis High cholesterol Back pain Migraine headache Syncope Former smoker Hx of sinus bradycardia History of stress test Cardiology follow-up encounter Bradycardia Encounter for pre-operative cardiovascular clearance Nodule of left lobe of thyroid gland Mass of upper lobe of right lung Coronary artery calcification Essential hypertension Chronotropic incompetence Gomez esophagus Diverticulosis Mixed hyperlipidemia Benign neoplasm of colon Thyroid nodule GERD (gastroesophageal reflux disease) Kidney stones COPD (chronic obstructive pulmonary disease) Asthma Seasonal allergies Surgical History History of thyroidectomy, total (~10/2020) Hx of lithotripsy History of needle biopsy (09/16/20) History of colonoscopy with polypectomy History of esophagogastroduodenoscopy History of arthroscopy of knee History of cataract extraction Family History Father Diabetes Hypertension CVA (cerebral vascular accident) Mother Thyroid disorder Arthritis Social History Smoking Status: Former smoker quit date: 03/27/12 pack-years: 50 how long ago did patient quit smoking: quit 12-14 years ago alcohol intake: never substance use type: does not use what type of physical activity do you participate in: none additional social history: pt denies vaping, denies marijuana use, denies edibles, denies alcohol use, uses baby aspirin daily uses ibuprofen as needed HPI HPI HPI: 84-year-old male presents for a second opinion due to multiple colon polyps and 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 Patient patient and family do not want to go all the way up to [place] for another colonoscopy and surgery. Plan was for a 2-day prep as he had a poor prep for the first 1 and a colonoscopy the first day and secondary laparoscopic right hemicolectomy. Discussed with family and the patient that would be a reasonable plan due to the poor prep. Did review patient's previous colonoscopy note, pictures and pathology. Patient did just get 2 units packed red blood cells on Monday current hemoglobin is 11.4 from 9. Patient's last colonoscopy was 12 years prior as he was told he did not need another 1 but has always had polyps in the past. ROS General General: Yes weight change and fatigue; No appetite, colon cancer, breast cancer or weakness HEENT HEENT: Yes eye surgery; No difficulty swallowing, eye injury, swollen glands or hoarseness Endo Endocrine: No thyroid disease, diabetes mellitus, thyroid cancer, Hair loss, heat intolerance or cold intolerance Skin Skin: No rash or changing moles Musc Musculoskeletal: Yes back problems and arthritis; No rheumatoid arthritis, gout or joint pain Cardio Cardiovascular: No murmur, pacemaker, heart disease, atrial fibrillation, high blood pressure, heart attack, heart stent, palpitations, shortness of breath with exertion or chest pain Psych Psychiatric: No depression, anxiety or hearing voices Resp Respiratory: Yes shortness of breath, No sleep apnea, No cough, Yes COPD, No asthma, No emphysema and No wheezing Gastro Gastrointestinal: No abdominal pain, No nausea or vomiting, No diarrhea, Yes constipation, Yes blood in stool, Yes acid reflux, Yes hemorrhoids, No ulcers, No gallbladder problem and No black,tarry stools Pool Hematologic: No blood thinners, No blood disorders, No bleeding, Yes anemia and No blood clots Neuro Neurologic: No system reviewed and no additional complaints, except as documented, No as per HPI, No abnormal gait, No abnormal hearing, No abnormal movements, No abnormal speech, No behavioral changes, No burning sensations, No confusion, No convulsions, No disequilibrium, No dizziness, No localized weakness, No frequent falls, No headache(s), No lack of coordination, No loss of vision, No memory loss, No numbness, No other visual disturbances, No radicular pain, No restless legs, No sensory deficit, No syncope, No tingling, No tremor(s), No weakness and No other Exam Const General: cooperative, comfortable and no acute distress Nutritional Appearance: underweight [facility] Head: normocephalic and atraumatic Neck Neck: supple Resp Effort & Inspection: normal respiratory effort Cardio Rate: regular rate GI Inspection: non-distended Palpation: soft and nontender Skin General: no rashes or lesions noted Neuro General: CN's II-XI intact bilaterally Extrem General: normal to inspection Psych Mental Status: mental status grossly normal Attitude: cooperative Assessment and Plan Assessment and Plan (1) Tubulovillous adenoma: Status: Acute Comment: right cecal unresected due to size at colonoscopy (2) Multiple polyps of sigmoid colon: Status: Acute (3) Anemia: Status: Acute Orders: Orders Colonoscopy 12/11/24 Medications: New sod sulf-pot chloride-mag sulf 1.479-0.188- 0.225 gram (Sutab) PO PER PKG DIR 1 pkg 0RF metronidazole Take 2 (two) tablets at 1300, 1500, 2300 6 tabs 0RF neomycin Take two (2) 500 mg tablets PO at 1300, 1500, 2300 6 tabs 0RF pre-op antibiotics Plan Patient did to receive 2 units packed red blood cells on Monday- current hemoglobin is 11.4. Could also encourage patient to be taking protein drinks 3 daily ideally with about 30 g of protein as he has had some weight loss per daughter starting now and postoperatively. I have discussed the above with the patient. I have offered the patient colonoscopy reevaluation for any residual polyps due to previous poor prep I have explained the risks/benefits of the procedure and described the procedure. I have discussed the risks with the patient, including but not limited to: infection, bleeding, perforation of the GI tract requiring emergency surgery, inability to complete the procedure, injury to any internal organs, complications of anesthesia, etc. - the patient understands and agrees to proceed. I have answered all the patient's questions to the patient's satisfaction and the patient has no further questions. The patient has been given instructions for the colon cleansing preparation. 2-day prep, first day soft food okay then clear liquids magnesium citrate first day and then Sutab the second day Will plan for laparoscopic right hemicolectomy the following day. Did discuss the anatomy and procedure: ERAs laparoscopic right colectomy, possible open with the patient. Including risks, but not limited to, bleeding, infection (superficial or intraabdominal), injury to another organ (small bowel, colon, ureter, etc.) requiring additional procedures, and blood clots. Also, discussed the pre-op, colon prep and antibiotics. All questions were answered. Zuleyma Storm M.D. Pager: [phone] [facility] [address] [place] [address], [facility], [address] [place] [address] Office: [phone] Coding Level of Care Code Off vis,new,level 4 Diagnoses Tubulovillous adenoma D36.9 Multiple polyps of sigmoid colon K63.5 Anemia D64.9 Clinical Quality Measures Falls Risk Screening/Assistive Devices Have you fallen in the past year?: No 12/05/24 1045 <Electronically signed by Zuleyma Storm MD> Date Zuleyma Storm MD 12/11/24 0955 <Electronically signed by Zuleyma Storm MD> Cosigner Signature (if applicable): CC: Dr. Alexander Steiner MD; Dr. Zuleyma Storm MD~ Signed ADDENDUM by Dr. Zuleyma Storm MD on 12/11/24 at 1003 Addendum I have examined the patient and the H&P has been reviewed. There are no clinical changes since date of exam. 12/11/24 1003<Electronically signed by Zuleyma Storm MD> Addendum?patient colonoscopy and multiple tubulovillous adenomas as well as a 3.5 cm polyp at the sigmoid. Awaiting pathology prior to doing right hemicolectomy will plan to delay right Raz.
--- NOTE | 2024-12-26 07:17 | PCM.PRE.AN2 ---
ASA Classification* ASA Classification ASA Classification: 3 Assessment & Plan Anesthesia* Anesthesia Assessment Anesthesia Assessment: Discussed sedation and/or anesthesia options, risks, benefits, and alternatives with patient/parents/legal guardian/POA. Questions invited. The patient/parents/legal guardian/POA seems to understand and agrees to proceed with anesthesia plan. Reviewed the physical assessment, medical history, allergy history and patient home medications list prior to surgery/procedure/anesthetic and documented any changes. Performed airway and anesthesia risk assessments. Anesthesia Type Anesthesia Type: General History Source History Obtained from:: Patient and Chart Anesthesia Focused Assessment* Temperature: 97.5 F Pulse Rate: 71 Blood Pressure: 131/72 Respiratory Rate: 16 Pulse Ox: 98 Oxygen Delivery Method: Room Air Airway Assessment Mouth opens: >3 cm Mallampati Score: I Teeth Condition: Dentures (upper dentures out, bottom pinned in) Neck Range of motion (ROM): Full ROM Labs Anesthesia Preop lab: CBC WBC, (4.4-11.0) 6.5 K/mm3 12/11/24, 10:07 RBC, (4.6-6.2) 4.76 M/mm3 12/11/24, 10:07 Hgb, (13.0-16.5) 10.8 g/dL L 12/11/24, 10:07 Hct, (40-54) 35.0 % L 12/11/24, 10:07 Plt Count, (150-450) 266 K/mm3 12/11/24, 10:07 CHEMISTRY Potassium, (3.3-5.1) 4.2 mmol/L 11/28/24, 16:30 Sodium, (133-145) 140 mmol/L 11/28/24, 16:30 Magnesium, (1.5-2.2) 2.0 mg/dL 12/09/24, 10:28 BUN, (4-19) 8 mg/dL 11/28/24, 16:30 Creatinine, (0.70-1.20) 0.70 mg/dL 11/28/24, 16:30 Glucose, (70-99) 100 mg/dL H 11/28/24, 16:30 POC Glucose, (74-106) 106 mg/dL Today, 06:09 TSH, (0.300-4.200) 0.074 uIU/mL L 09/16/24, 10:48 COAG PT, (11.7-14.9) 14.0 SECONDS 11/28/24, 16:30 Lab additional comments: Dr. Storm ordered CBC to obtain Pre-Assessment Diagnosis/Proposed Procedure Planned Operative Procedure(s): LAPAROSCOPIC POSS OPEN RIGHT ZOE COLECTOMY Anesthesia History Anesthesia History - asphalt coater: Anesthesia History - asphalt coater Hx Hospitalization No 12/20/24 10:34 Any Problems With Anesthesia No 12/20/24 10:34 Cholinesterase deficiency No 12/20/24 10:34 You/Your Family Experience No 12/20/24 10:34 fever (hyperthermia) with Relationship Recent Exposure to Contagious No 12/26/24 06:12 Disease Does patient have nerve No 12/20/24 10:34 stimulator Patient instructed to have device shut off --Does patient have Pacemaker No 12/26/24 06:12 or ICD? When Was Last Pacemaker Check QUESTION #4 FULL TEXT: You/Your Family Experience fever (hyperthermia) with Anesthesia Last Oral Intake Last Oral intake: Last Oral Intake NPO since 23:00 12/26/24 06:12 Meds taken in AM with sips of No 12/26/24 06:12 water? 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 - asphalt coater: PONV - asphalt coater Female No 12/20/24 10:34 HX of Motion Sickness No 12/20/24 10:34 HX of N/V After Surgery No 12/20/24 10:34 Non-Smoker No 12/20/24 10:34 Duration of Surgery greater Yes 12/20/24 10:34 than 60 minutes Number of Risk Factors 1 12/20/24 10:34 PONV Score Low Risk 12/20/24 10:34 Height & Weight Height & Weight: Anesthesia: Height & Weight Height 5 ft 7 in 12/26/24 06:12 Weight: 51 kg 12/26/24 06:12 Body Mass Index (BMI) 17.6 12/26/24 06:12 Respiratory Assessment Respiratory Assessment - asphalt coater: Respiratory Tract Infection Hx - asphalt coater Hx Respiratory Tract Infection No 12/20/24 10:34 STOP Sleep Apnea STOP Sleep Apnea - asphalt coater: STOP Sleep Apnea - asphalt coater Hx Hypertension Yes: NO MEDS FOR 4 MONTHS/ 12/20/24 10:34 CURRENTLY HYPOTENSIVE Hx Sleep Apnea No 12/20/24 10:34 CPAP BIPAP Do you snore loudly (louder No 12/20/24 10:34 than talking or can be heard Do you often feel tired/ No 12/20/24 10:34 fatigued/ sleepy during daytime? Has anyone observed you stop No 12/20/24 10:34 breathing during sleep? STOP Results Negative 12/20/24 10:34 QUESTION #5 FULL TEXT : Do you snore loudly (louder than talking or can be heard through closed doors)? 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 Specify any problems FATIGUE AND HEADACHE 12/20/24 10:34 Hx of Preganancy in last 3 N/A 12/20/24 10:34 Months Nurse Filling Out Transfusion DSCHRIBER 12/20/24 10:34 & Questions: Date: 12/20/24 12/20/24 10:34 Time: 10:34 12/20/24 10:34 Patient unable to answer at this time (ie. confused, unrespo /Reproduction History /Reproductive History - asphalt coater: /Reproductive Hx- asphalt coater Hx Now No 12/20/24 10:34 Gestational Age (in weeks): EDC: Hx Hx Para Hx Section SAB No 12/20/24 10:34 Active Medications Active Medications: Current Medications Generic Name Dose Route Start Last Admin Trade Name Freq PRN Reason Stop Dose Admin Acetaminophen 1,000 mg 1002/25 07:30 12/26/24 06:28 Acetaminophen 500 Mg Tablet PO 12/26/24 07:31 1,000 mg PREOP ONE Administration Gabapentin 600 mg 12/26/24 07:30 12/26/24 06:28 Gabapentin 600 Mg Tablet PO 12/26/24 07:31 600 mg PREOP ONE Administration Lactated Ringer's 1,000 mls @ 40 mls/hr 12/12/24 08:30 IV .Q25H LAWANDA Cefotetan Disodium 2 gm/ 100 mls @ 200 mls/hr 12/26/24 07:30 Sodium Chloride IV 12/26/24 07:59 INTRAOP ONE Lactated Ringer's 1,000 mls @ 40 mls/hr 12/26/24 07:30 IV 12/27/24 08:29 .Q25H ONE Lactated Ringer's 1,000 mls @ 40 mls/hr 12/26/24 08:30 IV .Q25H LAWANDA Magnesium Sulfate 1 gm/ 102 mls @ 408 mls/hr 12/26/24 07:30 12/26/24 06:28 Dextrose IV 12/26/24 07:44 408 mls/hr PREOP ONE Administration Lactated Ringer's 1,000 mls @ 15 mls/hr 12/26/24 05:45 12/26/24 06:28 IV 15 mls/hr .Q48H LAWANDA Administration Insulin Human Lispro 0 unit 12/26/24 07:30 Insulin Lispro 100 Unit/Ml Insuln.Pen SC 12/26/24 13:30 Q4H PRN PRN BG >/= 180, SEE PROTOCOL Protocol PFSH Medical History Loss of hearing Cancer Thyroid disease Bladder disease Anemia Chewing tobacco use History of diverticulitis Gastric reflux Shortness of breath on exertion History of pain when walking Hypertension History of echocardiogram Erosive esophagitis BPH (benign prostatic hyperplasia) Acute pancreatitis without necrosis or infection, unspecified Osteoporosis Wears glasses Wears dentures Arthritis High cholesterol Back pain Migraine headache Syncope Former smoker Hx of sinus bradycardia History of stress test Cardiology follow-up encounter Bradycardia Coronary artery calcification Gomez esophagus Benign neoplasm of colon COPD (chronic obstructive pulmonary disease) Home Medications ?Medication ?Instructions ?Recorded ?Last Taken ?Type aspirin 81 mg tablet,delayed 81 mg PO DAILY HEART HEALTH 01/27/16 12/04/24 History release terazosin 1 mg capsule 1 mg PO DAILY BPH 04/18/19 12/10/24 History omeprazole 40 mg capsule,delayed 40 mg PO DAILY GERD 05/25/19 12/10/24 History release tamsulosin 0.4 mg capsule 0.4 mg PO QHS BPH 04/20/21 12/10/24 History multivitamin 1 tab PO DAILY SUPPLEMENT 12/12/22 12/10/24 History finasteride 5 mg tablet 5 mg PO DAILY BPH 11/15/23 12/10/24 History levothyroxine 112 mcg tablet 112 mcg PO QDAY THYROID 11/28/23 12/10/24 History roflumilast 500 mcg tablet 500 mcg PO QDAY COPD 09/24/24 12/10/24 History (Daliresp) albuterol 90 mcg/actuation aerosol 90 mcg inhalation PRN PRN COPD 12/02/24 12/11/24 History inhaler atorvastatin 80 mg tablet (Lipitor) 60 mg PO QHS CHOLESTEROL 12/02/24 12/10/24 History ipratropium 0.5 mg-albuterol 3 mg 3 ml inhalation Q6H PRN shortness 12/11/24 12/26/24 History (2.5 mg base)/3 mL nebulization of breath or wheezing soln sodium sul 1.479 gram-potas ch See Rx Instructions PO PER PKG DIR 12/16/24 Unknown Rx 0.188 gram-magnes sul 0.225 gram #1 pkg tablet (Sutab) Allergy/AdvReac Type Severity Reaction Status Date / Time No Known Allergies Allergy Verified 12/26/24 06:07 Family History Father Diabetes Hypertension CVA (cerebral vascular accident) Mother Thyroid disorder Arthritis Surgical History Hx of colonoscopy Hx of right cataract extraction Hx of left cataract extraction History of thyroidectomy, total (~10/2020) Hx of lithotripsy History of needle biopsy (09/16/20) History of colonoscopy with polypectomy History of esophagogastroduodenoscopy History of arthroscopy of knee Social History Smoking Status: Current every day smoker tobacco type: smokeless tobacco how long ago did patient quit smoking: quit 12-14 years ago alcohol intake: never substance use type: does not use what type of physical activity do you participate in: none additional social history: pt denies vaping, denies marijuana use, denies edibles, denies alcohol use, uses baby aspirin daily uses ibuprofen as needed Review of Systems (Anesthesia) ROS Narrative System reviewed and no additional complaints, except as documented.
--- NOTE | 2024-12-26 07:30 | COL._PTH ---
PATIENT: MARGAUX NEWSOME LOC: [facility] U#:[id number] AGE/SX: 84/M ROOM: WI319 RE12/27/[address]: Dr. Zuleyma Storm MD : [id number] BED: 1 DIS: 12/28/2024 SPEC #: [id number] RECD: 12/26/24 12:20 STATUS: EMELY REAdriana #: [id number] ELSA: 12/26/24 07:[address]: Zuleyma Storm DEPT: SURGICAL PATHOLOGY RECD BY: Quinten Lynn ENTERED: 12/26/24 14:19 SP TYPE: COLON OTHR DR: MD Dr. Caitlin Garcia MD Dr. Tai Chi Kwok, MD Tissues: A - Colon, NOS Procedures: Surgery Specimen Level HEADER OPERATION: ERAS, right shabbir colectomy PRE-OP DIAGNOSIS: Tubulovillous adenoma, multiple polyps of sigmoid colon, anemia TISSUE SUBMITTED: A- Right colon MICROSCOPIC DIAGNOSIS A. Right colon, hemicolectomy: * Tubulovillous adenoma and tubular adenoma, x5, negative for invasive tumor. * Surgical margins negative for dysplasia. * Thirty-two benign pericolonic lymph nodes (0/32). 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 SYNOPTIC REPORT: (APPENDIX: Resection) SPECIMEN Procedure ___ Appendectomy _X_ Right colectomy ___ Cecectomy ___ Other (specify): TUMOR Tumor Site: mid portion (incidental finding) Histologic Type: ___ Adenocarcinoma ___ Mucinous adenocarcinoma _X_ Low-grade appendiceal mucinous neoplasm ___ High-grade appendiceal mucinous neoplasm ___ Signet-ring cell carcinoma ___ Goblet cell adenocarcinoma ___ Neuroendocrine carcinoma ___ Large cell neuroendocrine carcinoma ___ Small cell neuroendocrine carcinoma ___ Mixed zikbsamfecupca-fdn-snkugqxboeypjm neoplasm ___ Medullary carcinoma ___ Squamous cell carcinoma ___ [place] carcinoma ___ Undifferentiated carcinoma ___ Other histologic type not listed (specify): ___ Carcinoma, type cannot be determined (explain): Tumor Size: ___ Greatest dimension in Centimeters (cm): cm Additional Dimension in Centimeters (cm): ____ x ____ cm _X_ Cannot be determined (explain): incidental finding Tumor Deposits: _X_ Not identified ___ Present Number of Deposits ___ Specify number: ___ Other (specify): ___ Cannot be determined (explain): ___ Cannot be determined: Tumor Extent: ___ Tumor invades lamina propria or muscularis mucosa ___ Acellular mucin invades submucosa ___ Tumor invades submucosa _X_ Acellular mucin invades muscularis propria ___ Tumor invades muscularis propria ___ Acellular mucin invades subserosa or mesoappendix but does not extend to serosal surface ___ Tumor invades through muscularis propria into subserosa or mesoappendix but does not extend to serosal surface ___ Acellular mucin invades visceral peritoneum (serosa) ___ Tumor invades visceral peritoneum (serosa) ___ Tumor directly invades adjacent organ(s) or structure(s) (specify): ___ Cannot be determined: ___ No evidence of primary tumor Lymphatic and / or Vascular Invasion: _X_ Not identified ___ Present ___ Cannot be determined: Perineural Invasion: _X_ Not identified ___ Present ___ Cannot be determined MARGINS: Margin Status for Invasive Carcinoma ___ All margins negative for invasive carcinoma ___ Cannot be determined: _X_ Not applicable: ___ Invasive carcinoma present at margin Margin(s) Involved by Invasive Carcinoma ___ Proximal: ___ Mesenteric: ___ Other (specify): ___ Cannot be determined (explain): ___ Other (specify): ___ Cannot be determined (explain): _X_ Not applicable: Margin Status for Non-Invasive Tumor: Presence of acellular mucin is not considered a positive margin in the context of LAMN or HAMN but should be recorded in a comment or note. _X_ All margins negative for non-invasive tumor ___ Low-grade dysplasia present at proximal margin: ___ High-grade dysplasia present at proximal margin: ___ Low-grade appendiceal mucinous neoplasm present at margin Margin(s) REGIONAL LYMPH NODES Regional Lymph Node Status ___ Not applicable (no regional lymph nodes submitted or found) _X_ Regional lymph nodes present _X_ All regional lymph nodes negative for tumor ___ Tumor present in regional lymph node(s) Number of Lymph Nodes with Tumor ___ Exact number (specify): ___ At least (specify): ___ Other (specify): ___ Cannot be determined (explain): Other (specify): ___ Cannot be determined (explain): Number of Lymph Nodes Examined: Exact number (specify): 32 ___ At least (specify): ___ Other (specify): ___ Cannot be determined (explain): Regional Lymph Node Comment: pericolonic lymph nodes were examined DISTANT METASTASIS Distant Site(s) Involved, if applicable For specimens containing acellular mucin without identifiable tumor cells, efforts should be made to obtain additional tissue for thorough histologic examination to evaluate for cellularity. _X_ Not applicable ___ Non-regional lymph node(s): ___ Intraperitoneal acellular mucin without identifiable tumor cells in the disseminated peritoneal mucinous deposits ___ Intraperitoneal metastasis only (including peritoneal mucinous deposits containing tumor cells) Involvement of organs such as ovary, fallopian tube or spleen underlying involved peritoneum is still considered intraperitoneal metastasis. Involvement of lung or hepatic parenchyma distinct from peritoneal involvement is considered extraperitoneal distant metastasis. ___ Ovary: ___ Fallopian tube: ___ Spleen: ___ Other intraperitoneal metastasis, including peritoneal mucinous deposits containing tumor cells (specify): ___ Liver: ___ Lung: ___ Site(s) other than peritoneum (specify, if known): ___ Cannot be determined: pTNM CLASSIFICATION (AJCC 9th Version) Reporting of pT, pN, and (when applicable) pM categories is based on information available to the pathologist at the time the report is issued. As per the AJCC (Chapter 1, 8th Ed.) it is the managing physician's responsibility to establish the final pathologic stage based upon all pertinent information, including but potentially not limited to this pathology report. Modified Classification (required only if applicable) (select all that apply) _X_ Not applicable ___ y (post-neoadjuvant therapy) ___ r (recurrence) pT Category ___ pT not assigned (cannot be determined based on available pathological information) ___ pT0: No evidence of primary tumor ___ pTis: Carcinoma in situ (intramucosal carcinoma; invasion of the lamina propria or extension into but not through the muscularis mucosae) pTis LAMN is applicable only to LAMN. High-grade appendiceal mucinous neoplasms (HAMN) are staged similar to mucinous adenocarcinoma, even though robust data on HAMN are lacking. _X_ pTis (LAMN): Low-grade appendiceal mucinous neoplasm confined to the muscularis propria; Acellular mucin or mucinous epithelium may invade into the muscularis propria. (T1 and T2 are not applicable to LAMN; Acellular mucin or mucinous epithelium that extends into the subserosa or serosa should be classified as T3 or T4a, respectively.) ___ pT1: Tumor invades the submucosa (through the muscularis mucosa but not into the muscularis propria) ___ pT2: Tumor invades the muscularis propria ___ pT3: Tumor invades through the muscularis propria into the subserosa or the mesoappendix pT4: Tumor invades the visceral peritoneum, including the acellular mucin or mucinous epithelium involving the serosa of the appendix or mesoappendix, and / or directly invades adjacent organs or structures ___ pT4a: Tumor invades through the visceral peritoneum, including the acellular mucin or mucinous epithelium involving the serosa of the appendix or serosa of the mesoappendix ___ pT4b: Tumor directly invades (or adheres to##) adjacent organs or structures ___ pT4 (subcategory cannot be determined) T Suffix (required only if applicable) ___ Not applicable ___ (m) multiple primary synchronous tumors in a single organ pN Category ___ pN not assigned (no nodes submitted or found) ___ pN not assigned (cannot be determined based on available pathological information) _X_ pN0: No tumor involvement of regional lymph node(s) pN1: Tumor involvement of one to three regional lymph nodes (tumor in lymph node measuring greater than or equal to 0.2 mm) or any number of tumor deposits is present with no tumor involvement in all identifiable lymph nodes ___ pN1a: Tumor involvement of one regional lymph node ___ pN1b: Tumor involvement of two or three regional lymph nodes ___ pN1c: No tumor involvement of regional lymph nodes, but there are tumor deposits in the subserosa or mesentery ___ pN1 (subcategory cannot be determined) ___ pN2: Tumor involvement of four or more regional lymph nodes pM Category (required only if confirmed pathologically) For specimens containing acellular mucin without identifiable tumor cells, efforts should be made to obtain additional tissue for thorough histologic examination to evaluate for cellularity. _X_ Not applicable - pM cannot be determined from the submitted specimen(s) pM1: Microscopic confirmation of distant metastasis ___ pM1a: Intraperitoneal acellular mucin, without identifiable tumor cells in the disseminated peritoneal mucinous deposits ___ pM1b: Intraperitoneal metastasis only, including peritoneal mucinous deposits containing tumor cells ___ pM1c: Microscopic confirmation of metastasis to sites other than peritoneum ___ pM1 (subcategory cannot be determined) ADDITIONAL FINDINGS +Additional Findings (select all that apply) ___ None identified ___ Appendicitis ___ Perforation, not at tumor ___ Ulcerative colitis ___ Crohn disease ___ Diverticulosis ___ Sessile serrated lesion / adenoma / polyp _X_ Other (specify): fibrous obliteration of majority of the appendiceal lumen SPECIAL STUDIES +Ancillary Studies ___ Performed (specify): _X_ Not performed COMMENTS Comment(s): A preliminary diagnosis was discussed with Dr Brandi Storm 12/31/24 and her office was notified of the final report completion on 01/01/25 (by Celia Lynn). COMMENT The case was discussed with Dr Brandi Storm on 12/31/24. MICROSCOPIC DESCRIPTION Slides are reviewed. GROSS DESCRIPTION A. Received fresh labeled the patient's name and date of . Designated as right colon is a right hemicolectomy comprised of the following:Terminal ileum: 7.0 x 2.0 cm, weber-pink and glistening serosa. The stapled margin is inked green and shaved. The mucosa is weber-pink and glistening, devoid of identifiable lesions. Cecum: 7.4 x 6.0 x 1.9 cm, weber-pink serosa with 2 areas of tattoo ink (1.3 x 0.8 cm and 0.8 x 0.5 cm). The mucosa is weber-pink and glistening with multiple grossly superficial polyps as follows: Cecal lesion #1: 3.3 x 1.5 x 1.0 cm weber-pink and lobulated, located 3.0 cm adjacent to the appendiceal orifice and >7 cm from the proximal/distal stapled margins; it is located 2.4 cm from the radial margin. Cecal lesion #2: Is a 5.3 x 1.8 cm cluster of weber-pink lobulated polyps, ranging individually in size from 0.2 cm to 2.1 cm; this cluster focally involves the ileocecal valve, is located 2.4 cm from the appendiceal orifice and >8 cm from the proximal/distal stapled margins. It is located 2.4 cm from the radial margin. Cecal lesion #3: 2.9 x 2.6 x 0.7 cm weber-pink, lobulated and crater-like polyp with irregular borders located 1.4 cm distal to cecal lesion #2, 1.8 cm from an apparent biopsy clip (colon) and >10 cm from the proximal/distal stapled margins; it is located 2.4 cm from the radial margin. Appendix: 5.9 x 0.5 cm weber-pink and glistening serosa with a 0.3 cm area of possible stricture located 2.2 cm from the appendiceal orifice. Sectioning reveals diffusely fibrotic and focally cystic cut surfaces with clear, tenacious material within the lumen. No definitive lesions are identified. Colon: 16.3 x 4.3-5.5 cm, weber-pink and glistening mucosa with a moderate amount of attached, thin mesentery; a definitive radial margin is difficult to determine however, the presumed radial margin is inked black. The stapled margin is inked blue and shaved. The mucosa is weber-pink and glistening with approximately located, gold metallic apparent biopsy clip (1.5 x 0.1 cm) and multiple, grossly superficial polyps as follows: Colon lesion #1: 0.6 x 0.5 x 0.4 cm weber-pink polyp located >10 cm from the proximal/distal stapled margins and >2.4 cm from the radial margin. Colon lesion #2: 0.5 x 0.5 x 0.3 cm sessile polyp located 2.0 cm distal to colon lesion #1 and >10 cm from the proximal/distal stapled margins; it is located >2.4 cm from the radial margin. Colon lesion #3: 0.3 x 0.3 x 0.1 cm weber-pink sessile polyp located 6.1 cm distal to colon lesion #2 and >10 cm from the proximal stapled margin and 6.5 cm from the distal stapled margin; it is located >2.4 cm from the radial margin. Colon lesion #4: 1.8 x 1.5 x 0.3 cm weber-pink, slightly lobulated polyp located 3.8 cm adjacent to colon lesion #3, 7.0 cm from the distal stapled margin and >10 cm from the proximal stapled margin; it is located >2.4 cm from the radial margin. Sectioning Colon lesion #5: 1.3 x 1.1 x 0.4 cm weber-pink, slightly lobulated polyp located 0.5 cm distal to colon lesion #4, 5.5 cm from the distal stapled margin and >10 cm from the proximal stapled margin; it is located >2.4 cm from the radial margin. Lymph nodes: Numerous weber-white lymph node candidates are identified, ranging 0.1 cm to 1.0 cm; there are also 2 incised and stapled, lymph node candidates within the specimen container. Also received within the container is a 3.4 x 3.3 x 0.9 cm mucosal donut. Gas Leak Inspector sections are submitted, in 30 cassettes, as follows: A1: Terminal ileum (proximal) margin, shaved, entirely submittedA2: Colon margin (distal), shaved, representativeA3: Mucosal donutA4: Radial margin, shaved, representativeA5: Ileocecal valveA6-A8: Cecal lesion #1, entirely submittedA9-A13: Cecal lesion #2, 90% submitted, tattoo ink in cassette [id number]: Cecal lesion #3, entirely submitted, tattoo ink in cassette [id number]: XnazfaziI89: Colon lesion #1-#3, entirely waokylbpoR82-Z32: Colon lesion #4, entirely qxulctbifM16-M54: Colon lesion #5, entirely xpqxypzzhP63: 7 intact lymph node wzeitofidiP11-J02: 6 intact lymph node candidates, per msjoismhB35: 2 intact lymph nodes (blue/black) and 1 bisected lymph nodeA29: 2 bisected lymph nodes (1 blue)A30: Stapled lymph node candidates A31: remainder of appendix submitted at [facility] 12/27/2024 CPT:31246
[2024-12-26] MEDS: Lidocaine 1% (5 ml sdv) 5 ML Vial IV (07:40)
[2024-12-26] MEDS: BUPIVACAINE LIPOSOME/PF 20 ML VIAL OPERA.SITE (08:01)
[2024-12-26] MEDS: 0.9% Normal Saline (Pres. free 10 ML Vial (08:01)
[2024-12-26 08:08] LABS: Hematocrit 34.0 % (40-54); Hemoglobin 10.5 g/dL (13.0-16.5); Immature Granulocytes Count 0.040 X10^3/uL (0.0-0.0); Mean Corp Hgb Conc 30.9 g/dL (32-36); Mean Corpuscular Volume 73.4 fL (80-94); Mean Platelet Vol. 10.1 fl (6.2-12.0); NRBC Flagged by Analyzer 0 % (0-5); POSITIVE MORPHOLOGY YES; Platelet Count 391 K/mm3 (150-450); RBC Distribution Width CV 22.0 % (11.6-14.6); RBC Distribution Width SD 56.4 fl (35.1-43.9); Red Blood Count 4.63 M/mm3 (4.6-6.2); White Blood Count 7.1 K/mm3 (4.4-11.0)
[2024-12-26 08:22] LABS: Differential Indicated SCAN CRITERIA MET
[2024-12-26] MEDS: fentaNYL 100 MCG/2 ML Ampul 200 MCG IV (09:05)
[2024-12-26 09:08] LABS: Differential Comment SCANNED
[2024-12-26 09:09] LABS: Anisocytosis 2+; Microcytosis 1+; Polychromasia RARE
--- NOTE | 2024-12-26 09:51 | PCM.OPRPT ---
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 Post-Operative Diagnosis: Same Surgery/Procedure Performed: ERAS laparoscopic assisted right hemicolectomy director employee communications: Yes Control Technician: Berna Rahman Tasks completed by nurse first assist: Opening & closing and Retracting Type of Anesthesia: General/Supplemental RN Documented Start/Stop Times: Operation Date: 12/26/24 07:30 Case Time Into Pre-Op 12/26/24 05:41 Anesthesia Start 12/26/24 07:35 Into Room 12/26/24 07:35 Out of Pre-Op 12/26/24 07:35 Procedure Start 12/26/24 08:01 Procedure End 12/26/24 10:02 Anesthesia End 12/26/24 10:07 Out of Room 12/26/24 10:07 Into Recovery 12/26/24 10:10 Out of Recovery 12/26/24 11:46 Procedure Start Time: 08:01 Procedure Stop Time: 10:02 Select all DRAINS/GRAFTS/IMPLANTS that apply: None Special Medications: Cefotetan 2 g IV x 1 Estimated Blood Loss: 10 cc Specimen collected: Yes Description of specimen(s) removed: Right hemicolectomy Description of surgery: Indications this is a 84-year-old male who was found to have multiple large tubulovillous adenomas to large to large 2 removed in the cecum and ascending colon. Laparoscopic right hemicolectomy elected patient agreeable. Description procedure: The patient was placed on operating table in supine position. General Anesthesia was induced. Kim catheter was placed. A timeout was completed verifying correct patient, procedure, site, position, social, and special equipment prior to beginning procedure. An orogastric tube was placed. The abdomen was prepped and draped in usual sterile fashion. An incision was made in the natural skin line above the umbilicus. The fascia was elevated and incised. The peritoneum was elevated and incised. Entry into the peritoneum was confirmed visually and no bowel was noted in the vicinity of the incision. Hutchinson trocar was placed. The abdomen was insufflated with carbon dioxide to a pressure of 12-15 mmHg. Patient tolerated insufflation well. The laparoscope was then inserted and abdomen inspected. No injuries from initial trocar placement were noted. Additional trochars were then inserted in the following locations 5 mm trocar inferior midline and additional 1 in the left upper quadrant. The abdomen was inspected and tattoo bennett in the ascending and hepatic flexure were visualized. The table is placed in reverse Trendelenburg position with the right side up. Tap block was completed using Exparel/Marcaine/saline visualized laparoscopically. Transverse colon attachments were divided using the Enseal this was continued along the white line of Toldt laterally. Dissection continued bluntly in the retroperitoneum using traction and countertraction technique with gentle sweeping and visualization of the ureter was confirmed. The lateral attachments of the ascending colon were then divided using most mobilization of the retroperitoneal attachments of the terminal ileum. The omentum attached to resect a portion of the colon was divided and resected with the specimen. The supraumbilical incision was enlarged about 7 cm in length. A wound protector was then placed into the peritoneal cavity to prevent port site implantation as well as minimize risk of wound infection. They ascending and transverse colon were then delivered and extracted. Ileocolic artery and vein were clipped with hemoclips at takeoff of the SMA. Enseal was used to divide the distal vessel. Insert was also used to divide the mesentery of the terminal ileum and colon. The small bowel and colon was then divided extracorporeally with the ZAC 75 after the right branch of the middle colic was also divided with the Enseal. The specimen was removed. The 2 ends of the ileum and transverse colon were then aligned, ensuring that the mesentery was not twisted, and the staple [id number] anastomosis using the ZAC 75 and TL 60. The anastomosis, alignment of the bowel, hemostasis were checked. The trochars removed under direct visualization. Once the wound protector was removed, gowns and gloves were changed. The umbilical incision was closed with 1-0 PDS suture at the fascia and then the skin was closed with 4-0 Monocryl interrupted sutures. Dry sterile dressings were applied. The sponge and instrument count were correct. The patient was extubated. The patient tolerated procedure well and was taken to the postanesthesia care unit in stable condition. Surgical Findings: See operative report Complications Complications: No
[2024-12-26] MEDS: Bacitracin 500 UNITS/GM PACKET (10:00)
--- NOTE | 2024-12-26 10:17 | EKG12_ITS ---
Test Reason : POSTOP- POSS A-FIB DURING SURGERY Blood Pressure : */* mmHG Vent. Rate : 103 BPM Atrial Rate : * BPM P-R Int : * ms QRS Dur : 94 ms QT Int : 368 ms P-R-T Axes : * -74 77 degrees QTcB Int : 482 ms Sinus tachycardia Left axis deviation Low voltage QRS Inferior infarct , age undetermined Abnormal ECG Confirmed by MACHELLE CHEN, JESUS ALBERTO ([id number]), news editor MELANIE PARKS ([id number]) on 12/30/2024 6:39:23 AM Referred By: Zuleyma Storm Confirmed By: JESUS ALBERTO CARTY MD
--- NOTE | 2024-12-26 10:25 | PCM.POST.ANE ---
Anesthesia: Postop Eval I Current Vital Signs Temperature: 97.4 F Pulse Rate: 102 Blood Pressure: 140/89 Respiratory Rate: 16 Pulse Ox: 99 Oxygen Delivery Method: Nasal Cannula Oxygen Flow Rate (L/min): 2 Assessment Airway patent: Yes Spontaneous unlabored respirations: Yes Mental status: Awake and Calm nausea: No Vomiting: No Anesthesia Complication: No Fluid Hydration Crystalloid volume administer (ml): 1,900 Total IV fluid infused: 1,900 Progress Note Anesthesia document: Postop Eval 1 completed: Yes
[2024-12-26] MEDS: Lactated Ringers 1,000 ML 40 ML IV ×2 (10:29→13:22)
[2024-12-26 11:59] LABS: Anion Gap 11 (5-15); BUN 8 mg/dL (4-19); BUN/Creat Ratio 11.7 RATIO (10-20); Calcium,Total 7.9 mg/dL (7.6-11.0); Carbon Dioxide 21.2 mmol/L (21.0-32.0); Chloride 107 mmol/L (98-108); Estimated Creatinine Clearance 51.35 ml/min (50-250); Free T3 2.2 pg/mL (2.18-3.98); Glucose 141 mg/dL (70-99); Magnesium 2.2 mg/dL (1.5-2.2); Potassium 4.0 mmol/L (3.3-5.1)
--- NOTE | 2024-12-26 17:36 | PN_ITS ---
Subjective Subjective Patient is an 84-year-old male with a past medical history as outlined including polyps was admitted to the service of general surgery. Patient had a laparoscopic assisted right hemicolectomy today on account of polyps. During the surgery he was noted to be in A-fib with RVR. He does not have any history of A-fib with RVR. Hospitalist service was therefore consulted for medical management. I saw patient down in the PACU. He denied any chest pain or palpitations, any dizziness and pain was well-controlled. He denied any history of A-fib. On review in PACU, vitals were temperature of 97.8, pulse rate of 94, respiratory rate of 18 and blood pressure 106/63. He was saturating at 98% on 4 L of oxygen. CBC and BMP showed WBC of 7.1 with hemoglobin of 10.5 and platelets of 391 as well as sodium of 139, potassium of 4 and bicarb of 21.2. Creatinine was 0.7. Magnesium was 2.2. TSH was 0.447 and free T4 was 1.7. Free T3 was 2.2. EKG done per my review showed a junctional rhythm. Though there were no P waves the QRS waves were regular and narrow. He is therefore to be admitted to be managed for tachycardia of unclear etiology which had resolved by time I reviewed him. Objective Data Objective Data Vital Signs: Vital Signs Temp Pulse Resp BP Pulse Ox O2 Del Method O2 Flow Rate 97.7 F L 89 18 115/62 97 Nasal Cannula 2 12/26/24 15:26 12/26/24 15:26 12/26/24 15:26 12/26/24 15:26 12/26/24 15:26 12/26/24 15:26 12/26/24 15:26 Oxygen Flow Rate (L/min) 2 Oxygen Delivery Method Nasal Cannula Weight: 112 lb 6.972 oz Body Mass Index (BMI) 17.6 Intake & Output: Intake and Output for Last 24 Hours 12/24/24 12/25/24 12/26/24 23:59 23:59 23:59 Intake Total 2216.67 / 2216.67 Output Total 660 / 660 Balance 1556.67 / 1556.67 Lab / Micro Data 12/26/24 07:33 12/26/24 11:08 Labs: Laboratory Results - last 24 hr 12/26/24 06:09: POC Glucose 106 12/26/24 07:33: WBC 7.1, RBC 4.63, Hgb 10.5 L, Hct 34.0 L, MCV 73.4 L, MCH 22.7 L, MCHC 30.9 L, RDW Std Deviation 56.4 H, RDW Coeff of Rima 22.0 H, Plt Count 391, MPV 10.1, Immature Gran % (Auto) 0.600, Neut % (Auto) 75.9 H, Lymph % (Auto) 10.1 L, [place] % (Auto) 10.6 H, Eos % (Auto) 1.7, Baso % (Auto) 1.1 H, Absolute Neuts (auto) 5.4, Absolute Lymphs (auto) 0.71 L, Nucleated RBC % 0, Differential Comment SCANNED, Polychromasia RARE, Anisocytosis 2+, Microcytosis 1+ 12/26/24 11:08: Sodium 139, Potassium 4.0, Chloride 107, Carbon Dioxide 21.2, Anion Gap 11, BUN 8, Creatinine 0.70, Estim Creat Clear Calc 51.35, Est GFR (MDRD) Non-Af 92, BUN/Creatinine Ratio 11.7, Glucose 141 H, Calcium 7.9, Magnesium 2.2, TSH 0.447, Free T4 1.70 H, Free T3 pg/dL 2.2 Physical Exam Const alert, oriented x3 and no apparent distress Constitutional Narrative: frail General Appearance: cooperative HEENT normocephalic, head/scalp atraumatic, moist oral mucous membranes and oropharynx normal Eyes EOMs intact bilaterally Neck supple and no JVD Lymph Lymphatic: no lymphedema noted Resp normal respiratory effort, normal air movement and clear to auscultation bilaterally Cardio regular rate, regular rhythm, S1 normal heart sound, S2 normal heart sound and no murmurs GI normal to inspection, nondistended, normoactive bowel sounds, soft to palpation and non-distended GI Narrative: Minimal tenderness to palpation due to surgery. Intact dressing over laparoscopic site. Extremity normal capillary refill, no clubbing, cyanosis or edema and no calf tenderness General Extremity: no tenderness to palpation of joints or extremities Neuro no focal motor deficits and no sensory deficits noted Motor Exam: general weakness Psych cooperative and affect normal Appearance: appropriate Assessment & Plan Assessment/Plan (1) Multiple polyps of sigmoid colon: PLAN: Plan #Tachycardia * Patient was tachycardic during his right hemicolectomy today and there was concern that this may be due to A-fib. However EKG per my review showed junctional rhythm but no evidence of A-fib * Does not have a history of A-fib. 2D echo ordered. Potassium and magnesium within normal limits. * Tachycardia had resolved by time of my review and has remained in normal sinus rhythm since then. * Will get 2D echo and review * He does have 2D echo from 09/19/2024 which showed EF of 60% with normal diastolic for age and RVSP of 43 mmHg. #History of tubulovillous adenoma s/p right laparoscopic hemicolectomy * Today's postop day 0. * Management as per primary service General Surgery. #Hyperlipidemia: On statin #History of hypothyroidism: * On Synthroid. TSH is within normal limits at 0.447 though free T4 is slightly elevated at 1.7. * Will not adjust medications for now as TSH is normal. * Continue current dose of Synthroid * #History of COPD: On Roflumilast. Breathing treatments bronchodilators. Currently not in exacerbation. #BPH: On Flomax DVT prophylaxis: As per primary service General Surgery. Thank you for the courtesy of the consult. Hospitalist service will continue to follow with you. Charges/Coding Visit Charges Inpatient E&M: 62890 Subs Hosp L2
--- NOTE | 2024-12-26 17:45 | ECHOL_ITS ---
Reason For Study Reason For Study: Arrhythmia Procedure This was a limited 2D transthoracic echocardiogram. Exam performed portable in patient room. Left Ventricle Normal LV size. The estimated ejection fraction is 55 %. Unable to assess diastolic dysfunction. No regional wall motion abnormalities noted. Right Ventricle Normal RV size. Normal systolic function. Atria The left and right atria are normal. Mitral Valve There is no mitral valve stenosis. No mitral valve insufficiency. Tricuspid Valve There is no tricuspid stenosis. Trivial tricuspid valve insufficiency. Aortic Valve There is no aortic stenosis. No aortic valve insufficiency. Pulmonic Valve The pulmonic valve is not well visualized. Pericardium/Pleural No pericardial effusion. MMode/2D Measurements & Calculations LVIDd: 5.1 cm IVSd: 0.77 cm LVAd ap4: 29.9 cm2 LVIDs: 4.0 cm LVPWd: 0.74 cm LVLd ap4: 7.7 cm FS: 21.5 % EDV(MOD-sp4): 95.7 ml EDV(sp4-el): 98.4 ml LVAs ap4: 19.4 cm2 LVLs ap4: 7.1 cm ESV(MOD-sp4): 48.7 ml ESV(sp4-el): 45.3 ml EF(MOD-sp4): 49.1 % EF(sp4-el): 54.0 % SV(MOD-sp4): 47.0 ml SV(sp4-el): 53.1 ml SI(MOD-sp4): 29.7 ml/m2 ECHO/Echo, Limited Study Interpretation Summary The estimated ejection fraction is 55 %. Ordering Physician: Caitlin Fisher Referring Physician: Zuleyma Storm Performed By: Ashwin Menard RCS
--- NOTE | 2024-12-26 20:25 | NURSING ---
pt walked in the [place] with this rn, gait steady, walked 3 laps.
[2024-12-27] VITALS (11 sets, daily range): BP systolic 122–150; BP diastolic 62–74; PULSE 74–94; RESP 16–20; TEMP 36.4–36.9; O2SAT 95–98
--- OUTSIDE RECORDS SUMMARY | 2024-12-27 00:07 | XMS RPT_ITS | CCD ---
Author Organization [facility] Care Team Providers Care [employer] Administrator Name Role Phone Jatin CHEN, Denzel Primary Care Provider Tony Auguste MD, Micah Unavailable Jatin, Dr. Alexander Sanford Primary Care Provider Jatin, Dr. Alexander Sanford Referring Provider Taurus MCGRATH, RONNIE Sanchez Attending Provider Jatin, Dr. Alexander Sanford Primary Care Provider Jatin, Dr. Alexander Sanford Referring Provider Dr. Chemo Chacon Attending Provider Dr. Marcelino Nolen Attending Provider [phone] Jatin, Dr. Alexander Sanford Primary Care Provider Jatin, Dr. Alexander Sanford Referring Provider Jatin , Denzel Primary Care Provider Tony Auguste MD, Micah Unavailable JATIN, DENZEL Primary Care Unavailable DEAN BEDOYA Attending Unavailable DEAN BEDOYA Referring Unavailable JATIN, DENZEL Referring Unavailable DEAN BEDOYA Attending Unavailable JATIN, DENZEL Primary Care Unavailable Jatin, Dr. Alexander Sanford Primary Care Provider Jatin, Dr. Alexander Sanford Referring Provider Dr. Alejandro Machado Attending Provider Dr. Alejandro Machado Referring Provider [phone] Jatin, Dr. Alexander Sanford Primary Care Provider Dr. Alejandro Machado Attending Provider Jatin, Dr. Alexander Sanford Referring Provider Jatin, Dr. Alexander Sanford Primary Care Provider Jatin, Dr. Alexander Sanford Referring Provider Rockwood, Dr. Allen Attending Provider Gregory Rodriguez MD Attending Provider [place]wood DO, Dr. Allen Attending Provider [place]wood DO, Dr. Allen Referring Provider Jatin CHEN, Dr. Alexander Sanford Primary Care Provider [phone] Jatin CHEN, Dr. Alexander Sanford Attending Provider Tony CHEN, Dr. Micah Auguste Attending Provider Tony CHEN, Dr. Micah Auguste Referring Provider Jatin CHEN, Dr. Alexander Sanford Referring Provider [phone] Jatin CHEN, Dr. Alexander Sanford Primary Care Provider [phone] Carter DO, Dr. Allen Attending Provider Rockwood DO, Dr. Allen Referring Provider Jatin CHEN, Dr. Alexander Sanford Primary Care Provider [phone] Jatin CHEN, Dr. Alexander Sanford Attending Provider Dr. Sánchez Pena MD Attending Provider Laura Araujo Attending Provider Jatin CHEN, Dr. Alexander Sanford Primary Care Provider [phone] Renetta CHEN, Dr. Deni Hickey Attending Provider Parth CHEN, Dr. Salinas Attending Provider Jessie Monsivais Attending Provider Jatin CHEN, Dr. Alexander Sanford Primary Care Provider [phone] Jatin CHEN, Dr. Alexander Sanford Referring Provider Jatin CHEN, Dr. Alexander Sanford Attending Provider Florentin Hernandez MD Primary Care Provider Micah Forrest Unavailable King APRIL, Dr. Benson Attending Provider King APRIL, Dr. Benson Referring Provider Jatin CHEN, Dr. Alexander Sanford Primary Care Provider [phone] Carter AGUILAR, Dr. Allen Attending Provider Carter AGUILAR, Dr. Allen Referring Provider Jatin, Aelxander Sanford Primary Care Provider [phone] Jatin CHEN, Dr. Alexander Sanford Primary Care Provider Jatin CHEN, Dr. Alexander Sanford Referring Provider Carter AGUILAR, Dr. Allen Attending Provider Dotty CHEN, Dr. Amor Attending Provider [phone] SAURAV MACHUCA Attending Unavailable JATIN, ALEXANDER CHI Primary Care Unavailable SAURAV MACHUCA Referring Unavailable JATIN, ALEXANDER CHI Primary Care Unavailable SAURAV MACHUCA Attending Unavailable VALERIE GAITAN Referring Unavailable JAITN, ALEXANDER CHI Primary Care Unavailable VALERIE GAITAN Attending Unavailable FLORENTIN HERNANDEZ Primary Care Unavailable Jatin CHEN, Dr. Alexander Sanford Primary Care Physician Jatin CHEN, Dr. Alexander Sanford Attending Physician Jatin CHEN, Dr. Alexander Sanford Referring Provider Dr. Sánchez Pena MD Attending Physician Renetta CHEN, Dr. Deni Hickey Attending Physician Laura Araujo Attending Physician Parth CHEN, Dr. Salinas Attending Physician Jessie Monsivais Attending Physician King APRIL, Dr. Benson Attending Physician Carter AGUILAR, Dr. Allen Attending Physician Dotty CHEN, Dr. Amor Attending Physician Dotty CHEN, Dr. Amor Nurse Practitioner Jatin, Alexander Chi Attending Unavailable Jatin, Alexander Chi Referring Unavailable Jtain, Alexander Chi Primary Care Unavailable Carter Alejandro Referring Unavailable CarterAlejandro borrero Attending Unavailable Jatin, Alexander Chi Primary Care Unavailable Jatin, Alexander Chi Attending Unavailable Jatin, Alexander Chi Referring Unavailable Jatin, Alexander Chi Primary Care Unavailable Jatin, Alexander Chi Primary Care Unavailable Alejandro Machado Attending Unavailable Jatin, Alexander Chi Referring Unavailable CarterAlejandro Attending Unavailable Jatin, Alexander Chi Primary Care Unavailable Jatin, Alexander Chi Primary Care Unavailable Jatin, Alexander Chi Attending Unavailable Jatin, Alexander Chi Primary Care Unavailable Didier Rodríguez Consulting Unavailable Robotham, Zuleyma Admitting Unavailable Robotham, Zuleyma Attending Unavailable Robotham, Zuleyma Referring Unavailable Jatin, Alexander Chi Primary Care Unavailable Robotham, Zuleyma Attending Unavailable Jatin, Alexander Chi Referring Unavailable [...] Primary Care Unavailable Alejandro Machado Attending Unavailable Alejandro Machado Referring Unavailable Jatin, Alexander Chi Primary Care Unavailable Jatin, Alexander Chi Primary Care Unavailable Callum, Marcelino Attending Unavailable Callum, Marcelino Referring Unavailable Jatin, Alexander Chi Primary Care Unavailable Alejandro Machado Attending Unavailable Josh Machadoe Referring Unavailable Jatin, Alexander Chi Primary Care Unavailable Robotham, Zuleyma Attending Unavailable Jatin, Alexander Chi Referring Unavailable Jatin, Alexander Chi Referring Unavailable Sánchez Pena Attending Unavailable Jatin, Alexander Chi Primary Care Unavailable Rita Alba Attending Unavailable Jatin, Alexander Chi Primary Care Unavailable Jatin, Alexander Chi Primary Care Unavailable Robotham, Zuleyma Consulting Unavailable Robotham, Zuleyma Attending Unavailable Jatin, Alexander Chi Referring Unavailable Jatin, Alexander Chi Referring Unavailable Jessie Moreno Attending Unavailable Jatin, Alexander Chi Primary Care Unavailable Alejandro Machado Attending Unavailable Jatin, Alexander Chi Referring Unavailable Jatin, Alexander Chi Primary Care Unavailable Jatin, Alexander Chi Referring Unavailable Laura Condon NP Attending Unavailable Jatin, Alexander Chi Primary Care Unavailable Gregory Rodriguez Attending Unavailable Jatin, Alexander Chi Primary Care Unavailable Jatin, Alexander Chi Referring Unavailable Jatin, Alexander Chi Attending Unavailable Jatin, Alexander Chi Primary Care Unavailable Jatin, Alexander Chi Referring Unavailable Jatin, Alexander Chi Attending Unavailable Jatin, Alexander Chi Attending Unavailable Jatin, Alexander Chi Referring Unavailable Jatin, Alexander Chi Primary Care Unavailable Jatin, Alexander Chi Attending Unavailable Jatin, Alexander Chi Primary Care Unavailable Micah Jimenez V Attending Unavailable Micah Jimenez V Referring Unavailable Jatin, Alexander Chi Primary Care Unavailable Medications Current Medications Medication Drug Class(es) Dates Sig (Normalized) Sig (Original) albuterol 0.833 mg/ml / ipratropium bromide 0.167 mg/ml inhalation solution (20 sources) Anticholinergic, beta2-Adrenergic Agonist Start: 12-11-2024 take 1 mL by inhalation every six hours as needed for wheezing Start: 11-09-2021 End: 11-28-2023 take 1 mL by inhalation twice daily Ipratropium-Albuterol 0.5 mg-3 mg(2.5 mg base)/3 mL solution for nebulization Discontinued 3 mL INHALATION TWICE A DAY November 09, 2021 12:00am November 28, 2023 10:29am Start: 11-09-2021 take 1 mL by inhalat ion twice daily Ipratropium-Albuterol Active 3 ML INHALATION TWICE A DAY November 09, 2021 12:00am ipratropium-albu terol (DUONEB) 0.5 mg-3 mg(2.5 mg base)/3 mL nebu Inhale 3 mL as instructed. Active Albuterol 90 mcg/actuation a erosol (6 sources) Start: 12-02-2024 Start: 12-02-2024 Albuterol 90 m cg/actuation aerosol Active 90 ug INHALATION NEEDED as needed for COPD December 02, 2024 12:00am Start: 12-02-2024 Albuterol 90 m cg/actuation aerosol Active ug INHALATION December 02, 2024 12:00am aspirin 81 mg delayed release oral tablet (20 sources) Platelet Aggregation Inhibitor, Nonsteroidal Anti-inflammatory Drug Start: 01-27-2016 take 1 tablet by mouth once daily atorvastatin 80 mg oral tablet (20 sources) HMG-CoA Reductase Inhibitor Start: 12-02-2024 Start: 2024 End: 12-02-2024 take 1 tablet by mouth at bedtime Atorvastatin (Lipitor) 80 mg tablet Discontinued 80 mg PO AT BEDTIME 30 2024 12:00am December 02, 2024 9:15am Start: 10-14-2020 End: 10-21-2024 take 1 tablet by mouth once daily Atorvastatin 20 mg tablet Discontinued 20 mg PO DAILY 90 October 14, 2020 12:00am October 21, 2024 10:11am budesonide 0.125 mg/ml inhalation suspension (20 sources) Corticosteroid Start: 10-20-2021 take 0.25 mg by inhalation twice daily take 2 mL by inhalation twice da jose de jesus budesonide 0.25 MG/2ML inhalation suspension Inhale 2 mL 2 times daily. 0 Active Calcium Carbonate / Vitamin D (7 sources) Calcium Carbonate-Vitamin D (CALCIUM 600+D PO) Take by mouth daily. 0 Active finasteride 5 mg oral tablet (20 sources) 5-alpha Reductase Inhibitor Start: take 1 tablet by mouth once daily ketorolac tromethamine 5 mg/ml ophthalmic solution (2 [...] take 1 tablet by mouth once daily Start: 09-09-2022 End: 11-28-2023 take 1 tablet by mouth once daily Levothyroxine 88 mcg tablet Discontinued 88 ug PO DAILY 90 April 28, 2023 11:24am November 28, 2023 10:27am Start: 04-26-2022 End: 09-09-2022 Levothyroxine 75 mcg tablet Discontinued 75 ug PO .COMPLEX 102 3 July 05, 2022 10:09am September 09, 2022 11:15am 75 mcg PO 1 daily, 2 on Sund; Start: 01-04-2021 End: 04-20-2021 Levothyroxine 75 mcg tablet Discontinued 75 ug PO .COMPLEX 90 3 January 04, 2021 12:45pm April 20, 2021 10:05am 75 mcg PO 1 daily, 2 on Sundays; Start: 11-06-2020 End: 04-26-2022 take 1 tablet by mouth once Levothyroxine 75 mcg table t Discontinued 75 ug PO .COMPLEX 90 1 January 05, 2022 3:39pm April 26, 2022 10:13am 75 mcg PO 1 daily, 1.5 on Sundays; Multivitamin preparation (6 sources) Start: 12-12-2022 take 1 tablet by mouth once daily Multivitamin Active 1 TABLET PO DAILY December 12, 2022 12:00am Start: 12-12-2022 take 1 tablet by antoine th once daily Multivitamin Active 1 TABLET PO DAILY December 11, 2022 11:00pm Multivitamin tablet (19 sources) Start: 12-12-2022 Start: 12-12-2022 Multivitamin t ablet Active 1 {tbl} PO DAILY December 12, 2022 12:00am SUPPLEMENT Start: 12-12-2022 Multivitamin t ablet Active 1 {tbl} PO DAILY December 12, [...] take 1 capsule by mouth once daily Start: 08-22-2012 Omeprazole (WA ILOSEC) 40 mg capsule Take 1 capsule by mouth 1-2 times daily. 60 capsule 5 08/22/2012 Active polyethylene glycol 3350 395677 mg / potassium chloride 2970 mg / sodium bicarbonate 6740 mg / sodium chloride 5860 mg / sodium sulfate 99743 mg powder for oral solution (2 sources) Osmotic Laxative Start: 10-18-2024 End: 10-18-2024 peg 3350-Electrolytes (GOLYTELY) 236-22.74-6.74 -5.86 gram suspension Take 4,000 mL by mouth one time only for 1 dose. 1 each 10/18/2024 10/18/2024 Active Start: 09-30-2024 End: 09-30-2024 peg 3350-Electrolytes (GOLYT JEAN-PAUL) 236-22.74-6.74 -5.86 gram suspension Indications: Unintentional weight loss Take 4,000 mL by mouth one time only for 1 dose. Refer to printed prep instructions from your provider. 4000 mL 09/30/2024 09/30/2024 roflumilast 0.5 mg oral tablet (20 sources) Phosphodiesterase 4 Inhibitor Start: 2024 take 1 tablet by mouth once daily Roflumilast (Daliresp) 500 mcg tablet Active 500 ug PO daily 2024 12:00am COPD Start: 2024 take 1 tablet by antoine th once daily Roflumilast (Daliresp) 500 mcg tablet Active 500 ug PO daily 2024 12:00am Start: 2024 take 1 tablet by antoine th once daily Roflumilast (Daliresp) 500 mcg tablet Discontinued 500 ug PO daily 2024 12:00am Start: 11-28-2023 End: 2024 take 1 tablet by mouth once daily Start: 11-28-2023 End: 2024 take 1 tablet by mouth once daily Roflumilast 500 mcg tablet Discontinued 500 ug PO daily November 28, 2023 12:00am 2024 2:15pm Start: 11-28-2023 take 1 tablet by antoine th once daily Roflumilast 500 mcg tablet Active 500 ug PO daily November 28, 2023 12:00am tamsulosin hydrochloride 0.4 mg oral capsule (20 sources) alpha-Adrenergic Morenita Start: 04-20-2021 take 1 capsule by mouth at bedtime terazosin 1 mg oral capsule (20 sources) alpha-Adrenergic Morenita Start: 04-18-2019 take 1 capsule by mouth once daily Completed/Discontinued Medications Medication Drug Class(es) Dates Sig (Normalized) Sig (Original) acetaminophen 325 mg / oxyCODONE hydrochloride 5 mg oral tablet (20 sources) Opioid Agonist Start: 05-25-2019 End: 05-28-2019 Oxycodone-Acetamino phen 1 TABLET tablet Discontinued 1 {tbl} PO EVERY 6 HOURS NEEDED as needed for Pain 15 3 0 May 25, 2019 May 27, 2019 1:00am May 28, 2019 1:09am Calculus of kidney Calculus of kidney Start: 05-25-2019 End: 05-28-2019 take 1 tablet by mouth every six hours as needed Oxycodone-Acetaminophen Discontinued 1 TABLET PO EVERY 6 HOURS NEEDED 15 3 May 25, 2019 May 28, 2019 1:09am [...] Every 6 hours as needed. 0 Active amLODIPine 10 mg oral tablet (20 sources) Dihydropyridine Calcium Channel [place] Start: 10-14-2020 End: 11-28-2023 take 1 tablet by mouth once daily Amlodipine 10 mg tablet Discontinued 10 mg PO DAILY 90 3 October 14, 2020 12:00am November 28, 2023 10:29am amoxicillin 875 mg / clavulanate 125 mg oral tablet (19 sources) Penicillin-class Antibacterial Start: 10-05-2023 End: 11-28-2023 Amoxicillin-Pot Clavulanate 875-125 mg tablet Discontinued 1 {tbl} PO TWICE A DAY October 05, 2023 12:00am November 28, 2023 10:29am baclofen 10 mg oral tablet (19 sources) gamma-Aminobutyric Acid-ergic Agonist Start: 11-28-2023 End: 08-29-2024 take 1 tablet by mouth once daily as needed Baclofen 10 mg tablet Discontinued 10 mg PO daily as needed November 28, 2023 12:00am August 29, 2024 9:42am Benzocaine (1 source) Standardized Chemical Allergen Start: 11-15-2024 End: 11-15-2024 1 spray, TOPICAL, DIRECTED, Starting on Mon11/15/24 at 0830, Until Mon11/15/24 at 1229, Dosing as directed for intraprocedural use only - Pharmaceutical Waste: Aerosol -, Intraprocedure calcium carbonate 1500 mg / cholecalciferol 200 unt oral capsule (20 sources) Vitamin D Start: 07-05-2022 End: 2024 Calcium Carbonate-Vitamin D3 (Calcium 600 + D(3)) 600 mg-5 mcg (200 unit) capsule Discontinued 1 NMA PO TWICE A DAY 180 1 July 05, 2022 10:07am 2024 2:15pm Start: 09-16-2020 End: 07-05-2022 Calcium Carbonate-Vitamin D3 [...] July 05, 2022 10:09am Calcium Carbonate / vitamin D3 (1 source) End: 09-30-2024 take 600 mg by mouth once daily calcium carbonate/vitamin D3 (CALCIUM+D ORAL) Take 600 mg by mouth once daily. 09/30/2024 Discontinued calcium chloride 0.0014 meq/ml / potassium chloride 0.004 meq/ml / sodium chloride 0.103 meq/ml / sodium lactate 0.028 meq/ml injectable solution (1 source) Start: 11-15-2024 End: 11-15-2024 take 30 mL intravenously every hour 30 mL/hr, INTRAVENOUS, CONTINUOUS, Starting on Mon11/15/24 at 0730, Until Mon11/15/24 at 0936, Preprocedure carvedilol 12.5 mg oral tablet (20 sources) alpha-Adrener gic [place], beta-Adrenerg ic [place] Start: 09-16-2020 End: 10-14-2020 take 1 tablet by mouth twice daily at mealtime Carvedilol 12.5 mg tablet Discontinued 12.5 mg PO TWICE A DAY September 16, 2020 12:00am October 14, 2020 2:08pm must administer with a meal/food Start: 09-07-2020 End: 09-30-2024 take 0.5 tablet by mouth twice daily at mealtime carvedilol (COREG) 25 mg tablet Indications: Essential hypertension Take 0.5 tablets by mouth twice daily with meals. 30 tablet 11 09/07/2020 09/30/2024 Discontinued Start: 07-26-2020 End: 07-26-2021 carveDILOL 25 MG tablet Take 12.5 mg by mouth 2 times daily with meals. 0 07/26/2020 07/26/2021 Active cloNIDine hydrochloride 0.1 mg oral tablet (20 sources) Central alpha-2 Adrenergic Agonist Start: 01-27-2016 End: 04-18-2019 take 1 tablet by mouth three times daily Clonidine Hcl 0.1 MG tablet Discontinued 0.1 mg PO THREE TIMES A DAY January 27, 2016 12:00am April 18, 2019 9:04am diphenhydrAMINE (1 source) Histamine-1 Receptor Antagonist Start: 11-15-2024 End: 11-15-2024 12.5-50 mg, INTRAVENOUS, DIRECTED, Starting on Mon11/15/24 at 0830, Until Mon11/15/24 at 1229, DOSING DIRECTED BY PHYSICIAN FOR PROCEDURAL SEDATION ONLY, Intraprocedure erythromycin 0.005 mg/mg ophthalmic ointment (20 sources) Macrolide, Macrolide Antimicrobial Start: 11-09-2021 End: 04-26-2022 Erythromycin 5 mg/gram (0.5 %) ointment Discontinued NMA OPHTHALMIC November 09, 2021 12:00am April 26, 2022 10:12am Start: 11-09-2021 End: 04-26-2022 Erythromycin Discontinued G OPHTHALMIC November 09, 2021 12:00am April 26, 2022 10:12am 1 ml fentaNYL 0.05 mg/ml injection (2 sources) Opioid Agonist Start: 11-15-2024 End: 11-15-2024 25-100 mcg, INTRAVENOUS, DIRECTED, Starting on Mon11/15/24 at 0830, Until Mon11/15/24 at 1229, DOSING DIRECTED BY PHYSICIAN FOR PROCEDURAL SEDATION ONLY, Intraprocedure Start: 12-02-2022 End: 12-02-2022 fentaNYL (SUBLIMAZE) injecti on 0-300 mcg Kpcdoljceri-Bcvhuvkht-Fbtvdh er (19 sources) Anticholinergic, Corticosteroid, beta2-Adrenergic Agonist Start: 10-05-2023 End: 11-28-2023 Kcbdmerhkyn-Hekxtsysh-Dhddvp er (Trelegy Ellipta) 100-62.5-25 mcg blister with device Discontinued 1 NMA INHALATION DAILY October 05, 2023 12:00am November 28, 2023 10:29am formoterol fumarate 0.01 mg/ ml inhalation solution (2 sources) beta2-Adrenergic Agonist Start: 11-28-2023 End: 2024 Formoterol Fumarate 20 mcg/2 mL solution for nebulization Discontinued INHALATION November 28, 2023 12:00am 2024 2:15pm Formoterol Fumarate 20 mcg/2 mL solution for nebulization (17 sources) Start: 11-28-2023 End: 2024 Formoterol Fumarate 20 mcg/2 mL solution for nebulization Discontinued INHALATION November 28, 2023 12:00am 2024 2:15pm Start: 11-28-2023 Formoterol Fum arate 20 mcg/2 mL solution for nebulization Active INHALATION November 28, 2023 12:00am gabapentin 100 mg oral capsule (19 sources) Anti-epileptic Agent Start: 10-04-2023 End: 08-29-2024 take 1 capsule by mouth once daily Gabapentin 100 mg capsule Discontinued 100 mg PO daily October 04, 2023 12:00am August 29, 2024 9:31am hydrALAZINE hydrochloride 25 mg oral tablet (20 sources) Arteriolar Vasodilator Start: 01-27-2016 End: 04-18-2019 take 1 tablet by mouth twice daily Hydralazine 25 MG tablet Discontinued 25 mg PO TWICE A DAY January 27, 2016 12:00am April 18, 2019 9:05am hydroCHLOROthiazide 25 mg oral tablet (20 sources) Thiazide Diuretic Start: 08-13-2020 End: 09-30-2024 take 1 tablet by mouth once daily [...] mg tablet Discontinued 50 mg PO DAILY 23 02April 20, 2021 10:19am April 26, 2022 10:12am Start: 04-18-2019 End: 09-30-2024 take 1 tablet by mouth once daily Losartan 100 mg tablet Discontinued 100 mg PO DAILY April 18, 2019 1:00am April 20, 2021 10:20am take 2 tablets by mo vah once daily losartan 50 MG tablet Take 100 mg by mouth daily. 0 Active meloxicam 7.5 mg oral tablet (19 sources) Nonsteroidal Anti-inflammatory Drug Start: 10-04-2023 End: [...] 27, 2016 12:00am April 18, 2019 9:06am metroNIDAZOLE 500 mg oral tablet (4 sources) Nitroimidazole Antimicrobial Start: 12-04-2024 End: 12-06-2024 Metronidazole 500 mg tablet Discontinued 500 mg PO .COMPLEX 6 0 December 04, 2024 12:00am December 06, 2024 9:13am Take 2 (two) tablets at 1300, 1500, 2300 5 ml midazolam 1 mg/ml injection (2 sources) Benzodiazepine Start: 11-15-2024 End: 11-15-2024 1-5 mg, INTRAVENOUS, DIRECTED, Starting on Mon11/15/24 at 0830, Until Mon11/15/24 at 1229, DOSING DIRECTED BY PHYSICIAN FOR PROCEDURAL SEDATION ONLY, Intraprocedure Start: 12-02-2022 End: 12-02-2022 midazolam (VERSED) injection 0-10 mg mirtazapine 7.5 mg oral tablet (19 sources) Start: 11-15-2023 End: 11-28-2023 take 1 tablet by mouth at bedtime Mirtazapine 7.5 mg tablet Discontinued 7.5 mg PO AT BEDTIME November 15, 2023 12:00am November 28, 2023 10:30am neomycin sulfate 500 mg oral tablet (4 sources) Aminoglycoside Antibacterial Start: 12-04-2024 End: 12-06-2024 Neomycin 500 mg tablet Discontinued 500 mg PO .COMPLEX 6 0 December 04, 2024 12:00am December 06, 2024 9:13am pre-op antibiotics Take two (2) 500 mg tablets PO at 1300, 1500, 2300 ondansetron 8 mg oral tablet (20 sources) Serotonin-3 Receptor Antagonist Start: 05-25-2019 End: 09-16-2020 take 1 tablet by mouth every eight hours as needed for nausea Ondansetron Hcl 8 MG tablet Discontinued 8 mg PO EVERY 8 HOURS NEEDED as needed for Nausea 12 May 25, 2019 1:00am September 16, 2020 2:33pm ok to substitute ODT microencapsulated potassium chloride 20 meq extended release oral tablet (20 sources) Start: 11-28-2023 End: 2024 take 1 tablet by mouth once daily as needed Potassium Chloride 20 mEq tablet,ER particles/crystal s Discontinued 20 meq PO daily as needed August 29, 2024 9:43am 2024 2:15pm revefenacin 0.0583 mg/ml inhalation solution (19 sources) Start: 11-28-2023 End: 2024 Revefenacin (Yupelri) 175 mcg/3 mL solution for nebulization Discontinued ug INHALATION November 28, 2023 12:00am 2024 2:15pm Sod Sulf-Pot Chloride-Mag Sulf (4 sources) Start: 12-04-2024 End: 12-06-2024 take 1.479 tablets by mouth once Sod Sulf-Pot Chloride-Mag Sulf (Sutab) 1.479-0.188- 0.225 gram tablet Discontinued 0 PO per package directions 1 0 December 04, 2024 12:00am December 06, 2024 9:13am PO PER PKG DIR 10 ml sodium chloride 9 mg/ml injection [...] 2022 9:29am take 2 tablets by mo ut once daily valACYclovir 500 MG tablet Take 2 tablets by mouth daily. 0 Active 100 ml zoledronic acid 0.05 mg/ml injection (20 sources) Bisphosphonate Start: 08-07-2021 End: 2024 Zoledronic Ftei-Inuwjkbk-Dynwq 5 mg/100 mL piggyback Discontinued 1 NMA .Route ONCE 100 0 July 16, 2024 3:52pm 2024 2:15pm infuse over 20 minutes Start: 07-23-2020 End: 09-16-2020 Zoledronic Qxsa-Zftygquv-Jgf er 5 mg/100 mL piggyback Discontinued 1 NMA .Route ONCE 100 0 July 23, 2020 12:00am September 16, 2020 2:33pm infuse over 20 minutes Problems Active Problems Problem Classification Problem Date Documented Da te Episodic/Chronic Calculus of urinary tract (20 sources) Ureteric colic; Translations: [Unspecified renal colic] 05-26-2019 Episodic Cancer of bronchus; lung (20 sources) Primary adenocarcinoma of upper lobe of right lung; Translations: [Malignant neoplasm of upper lobe, right bronchus or lung] Onset: 5 12-12-2022 Chronic Cardiac dysrhythmias (20 sources) Bradycardia; Translations: [Bradycardia, unspecified] Episodic Chronic obstructive pulmonary disease and bronchiectasis (1 source) Chronic obstructive pulmonary disease, unspecified; Translations: [Chronic obstructive pulmonary disease, unspecified] Onset: 5 Chronic Complications of surgical procedures or medical care (20 sources) Postoperative hypothyroidism; Translations: [Postprocedural hypothyroidism] 11-06-2020 Chronic Conditions associated with dizziness or vertigo (20 sources) Lightheadedness; Translations: [Dizziness and giddiness] 08-29-2024 Episodic Coronary atherosclerosis and other heart disease (20 sources) Calcification of coronary artery; Translations: [Atherosclerotic heart disease of [place] coronary artery without angina pectoris] Chronic Deficiency and other anemia (8 sources) Anemia; Translations: [Anemia, unspecified] 12-04-2024 Episodic Deficiency and other anemia (1 source) Anemia, unspecified; Translations: [Anemia, unspecified] Onset: 5 Episodic Disorders of lipid metabolism (20 sources) Mixed hyperlipidemia; Translations: [Mixed hyperlipidemia] Chronic Esophageal disorders (20 sources) Gastroesophageal reflux disease; Translations: [Gastro-esophageal reflux disease without esophagitis] Onset: 3 10-14-2020 Chronic Essential hypertension (20 sources) Essential hypertension; Translations: [Essential (primary) hypertension] Onset: Chronic Comment on above: controlled with med Neoplasms of unspecified nature or uncertain behavior (19 sources) 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; Translations: [Neoplasm of uncertain behavior of skin] 10-04-2023 Episodic Nutritional deficiencies (20 sources) Vitamin D deficiency; Translations: [Vitamin D deficiency, unspecified] 07-05-2022 Chronic Occlusion or stenosis of precerebral arteries (2 sources) Occlusion and stenosis of left carotid artery; Translations: [Occlusion and stenosis of unspecified carotid artery] Onset: 5 Chronic Osteoarthritis (20 sources) Osteoarthritis of joint of right shoulder region; Translations: [Primary osteoarthritis, right shoulder] Onset: 4 02-19-2024 Chronic Osteoporosis (20 sources) Osteoporosis; Translations: [Age-related osteoporosis without current pathological fracture] Onset: 5 07-05-2022 Chronic Other aftercare (1 source) Encounter for follow-up examination after completed treatment for malignant neoplasm; Translations: [Encounter for follow-up examination after completed treatment for malignant neoplasm] Onset: 5 Episodic Other and unspecified benign neoplasm (19 sources) Benign tumor of external ear; Translations: [Other benign neoplasm of skin of unspecified ear and external auricular canal] 10-11-2023 Episodic Other and unspecified benign neoplasm (10 sources) Benign adenomatous neoplasm; Translations: [Benign neoplasm, unspecified site] 11-20-2024 Episodic Comment on above: right cecal unresect ed due to size at colonoscopy Other and unspecified benign neoplasm (10 sources) Polyp of sigmoid colon; Translations: [Polyp of colon] 11-20-2024 Episodic Other and unspecified benign neoplasm (1 source) Benign neoplasm, unspecified site; Translations: [Tubulovillous adenoma] Onset: 5 Episodic Other and unspecified benign neoplasm (1 source) Polyp of colon; Translations: [Multiple polyps of sigmoid colon] Onset: 5 Episodic Other circulatory disease (20 sources) Disorder of carotid artery; Translations: [Disorder of arteries and arterioles, unspecified] 2024 Chronic Other circulatory disease (1 source) Disorder of arteries and arterioles, unspecified; Translations: [Disorder of arteries and arterioles, unspecified] Onset: 5 Chronic Other gastrointestinal disorders (6 sources) Occult blood in stools; Translations: [Other fecal abnormalities] 09-30-2024 Episodic Other gastrointestinal disorders (4 sources) History of Matute's esophagus; Translations: [Personal history of other diseases of the digestive system] 09-30-2024 Episodic Other gastrointestinal disorders (1 source) Other fecal abnormalities; Translations: [Fecal occult blood test positive] Onset: 5 Episodic Other gastrointestinal disorders (1 source) Personal history of other diseases of the digestive system; Translations: [History of Matute's esophagus] Onset: 5 Episodic Other injuries and conditions due to external causes (19 sources) Delayed healing of wound; Translations: [Other injury of unspecified body region, subsequent encounter] 10-31-2023 Episodic Other lower respiratory disease (20 sources) Lung mass; Translations: [Other nonspecific abnormal finding of lung field] 04-21-2022 Episodic Other lower respiratory disease (9 sources) Nodule of lung; Translations: [Solitary pulmonary nodule] Onset: 2 Episodic Other lower respiratory disease (2 sources) Solitary pulmonary nodule; Translations: [Solitary pulmonary nodule] Onset: 2 Episodic Other nutritional; endocrine; and metabolic disorders (8 sources) Unintentional weight loss; Translations: [Abnormal weight loss] 09-30-2024 Episodic Other nutritional; endocrine; and metabolic disorders (2 sources) Abnormal weight loss; Translations: [Unintentional weight loss] Onset: 5 Episodic Other screening for suspected conditions (not mental disorders or infectious disease) (2 sources) Patient encounter status; Translations: [Encounter for screening for malignant neoplasm of colon] Onset: 5 11-20-2024 Episodic Other skin disorders (20 sources) Sebaceous cyst of skin; Translations: [Sebaceous cyst] 04-21-2022 Episodic Residual codes; unclassified (6 sources) Family history of cancer of colon; Translations: [Family history of malignant neoplasm of digestive organs] 09-30-2024 Episodic Residual codes; unclassified (1 source) Family history of malignant neoplasm of digestive organs; Translations: [Family history of colon cancer] Onset: Episodic Screening and history of mental health and substance abuse codes (1 source) Ex-smoker; Translations: [Personal history of nicotine dependence] Episodic Syncope (1 source) Syncope and collapse; Translations: [Syncope and collapse] Onset: Episodic Thyroid disorders (20 sources) Thyroid nodule; Translations: [Nontoxic single thyroid nodule] 10-20-2020 Chronic Comment on above: questionable thyroid cancer bilateral thyroid no dules biopsy 09/16/20 Past or Other Problems Problem Classification Problem Date Documented Da te Episodic/Chronic Gastritis and duodenitis (14 sources) Acute gastritis; Translations: [Acute gastritis without bleeding] Onset: 07-14-2008 07-14-2008 Episodic Gastrointestinal hemorrhage (7 sources) Hematochezia; Translations: [Melena] Onset: 06-17-2008 06-17-2008 Episodic Mood disorders (5 sources) Mood disorders Onset: 11-10-2021 Resolved: 11-04-2022 11-10-2021 Nonspecific chest pain (7 sources) Chest pain; Translations: [Chest pain, unspecified] Onset: 07-16-2020 07-16-2020 Episodic Other and unspecified benign neoplasm (7 sources) Benign neoplasm of colon; Translations: [Benign neoplasm of colon, unspecified] Onset: 07-14-2008 07-14-2008 Episodic Other and unspecified benign neoplasm (7 sources) History of polyp of colon; Translations: [Personal history of colonic polyps] Onset: 08-22-2012 08-22-2012 Episodic Other and unspecified benign neoplasm (7 sources) Polyp of colon; Translations: [Polyp of colon] Onset: 09-02-2013 09-02-2013 Episodic Other lower respiratory disease (2 sources) Solitary nodule of lung; Translations: [Solitary pulmonary nodule] Episodic Other lower respiratory disease (7 sources) Dyspnea on exertion; Translations: [Other forms of dyspnea] Onset: 07-16-2020 07-16-2020 Episodic Other lower respiratory disease (1 source) Wheezing; Translations: [Wheezing] Onset: 06-07-2024 Episodic Other non-traumatic joint disorders (20 sources) Pain in right shoulder; Translations: [Right shoulder pain] Onset: 02-19-2024 08-25-2023 Episodic Residual codes; unclassified (1 source) Chills (without fever); Translations: [Chills (without fever)] Onset: 04-18-2024 Episodic Results Test Name Value Interpretation Reference Range Facility [id number] 12-13-2024 MR/POSTOPAN2 [facility] Medical Records Department [address] [place] [address] Anesthesia Postop Eval II 12/13/24823 MR#: [id number] Acct: [id number] Name: MARGAUX SANDERSON Rep #: [id number] : 1940 84 From: Yovani Corley MD PCP: Dr. Alexander Steiner MD Status:PRE IN Y Race: C Location: ADDENDUM by Dr. Yovani Corley MD on 12/13/24 at 0826 Addendum patient not seen, documentation only to clear off notations 12/13/24825 Date Yovani Corley MD cc: * Signed Anesthesia Postop Eval I Sum Postop Eval Completion status Anesthesia document: Postop Eval 1 completed: Yes Anesthesia Postop Eval I Summary Anesthesia Postop Eval I Summary: Anesthesia Postop Eval I: Assessment Summary Airway patent Yes 12/12/24 18:55 Spontaneous unlabored Yes 12/12/24 18:55 respirations Mental status Calm 12/12/24 18:55 nausea No 12/12/24 18:55 Vomiting No 12/12/24 18:55 Anesthesia Postop Eval I: Fluid Summary Crystalloid volume administer ,12/12/24 18:55 (ml) Colloids volume administered ( ml) Blood Product volume administered (ml) Total IV fluid infused ,12/12/24 18:55 Anesthesia Postop Eval I: Summary Notes Anesthesia Complication No 12/12/24 18:55 Anesthesia Complication Comment: Post-operative progress note Anesthesia: Postop Eval II Evaluation Mental status: Awake Pain Level: 0 nausea: No Vomiting: No 12/13/24 0824 Date Yovani Watts Signature: Date CC: Signed Normal [facility] Absolute lymphocyte countOrd ered By: [facility] on 12-11-2024 Lymphocytes Auto (Unsp spec) [#/Vol] 0.61 10*3/uL Low 0.83-4.51 [facility] Absolute neutrophil countOrd ered By: [facility] on 12-11-2024 Neutrophils (Bld) [#/Vol] 4.7 10*3/uL 2.0-7.7 [facility] Automated lymphocyte count a s percentage of total leukocytesOrdered By: [facility] on 12-11-2024 Lymphocytes/100 WBC Auto (Unsp spec) 9.4 % Low 19-41 [facility] Basophil percentageOrdered B y: [facility] on 12-11-2024 Basophils/100 WBC (Bld) 1.4 % High 0-1 [facility] CBC W/Diff, Automatedon 11-25 Anisocytosis Ql (Bld) RARE [facility] Comment on above: Performed By: #### L 100.0100, L500.4050, L300.3900 #### [facility] Laboratory [address] [facility]. [place], [place], [id number] Colonoscopy Reporton 025 Colonoscopy Report [facility] Medical Records Department [address] [place] [address] Colonoscopy Report MR#: [id number] Acct: [id number] Name: MARGAUX SANDERSON Rep #: [id number] : 1940 84 From: Zuleyma Storm MD PCP: Dr. Alexander Steiner MD Status:REG [facility] Patient Name: Margaux Sanderson Procedure Date: 12/11/2024 10:05 AM Date of : 1940 Age: 84 Procedure: Colonoscopy Indications: Gastrointestinal occult blood loss, Follow-up for history of adenomatous polyps in the colon Providers: Zuleyma Storm MD Referring MD: Alexander Steiner MD Medicines: Monitored Anesthesia Care Patient Profile: This is an 84 year old male. Last Colonoscopy: within the past month. Complications: No immediate complications. Procedure: Pre-Anesthesia Assessment: - Prior to the procedure, a History and Physical was performed, and patient medications and allergies were reviewed. The patient's tolerance of previous anesthesia was also reviewed. The risks and benefits of the procedure and the sedation options and risks were discussed with the patient. All questions were answered, and informed consent was obtained. Prior Anticoagulants: The patient has taken no anticoagulant or antiplatelet agents. ASA Grade Assessment: Per anesthesia. After reviewing the risks and benefits, the patient was deemed in satisfactory condition to undergo the procedure. - Prior to the procedure, a History and Physical was performed, and patient medications and allergies were reviewed. The patient's tolerance of previous anesthesia was also reviewed. The risks and benefits of the procedure and the sedation options and risks were discussed with the patient. All questions were answered, and informed consent was obtained. Prior Anticoagulants: The patient has taken no anticoagulant or antiplatelet agents except for aspirin. ASA Grade Assessment: Per anesthesia. After reviewing the risks and benefits, the patient was deemed in satisfactory condition to undergo the procedure. After I obtained informed consent, the scope was passed under direct vision. Throughout the procedure, the patient's blood pressure, pulse, and oxygen saturations were monitored continuously. The pediatric colonoscope was introduced through the anus and advanced to the cecum, identified by the appendiceal orifice, ileocecal valve and palpation. The colonoscopy was performed with moderate difficulty due to a redundant colon and a tortuous colon, polyps just around fold/turn. [Solution]. Scope In: 10:19:26 AM Scope Withdrawal Time 1 hour 18 minutes 29 seconds Scope Out: 11:46:00 AM Total Procedure Duration Time 1 hour 26 minutes 34 seconds Findings: The perianal and digital rectal examinations were normal. Seven semi-pedunculated polyps were found in the sigmoid colon, descending colon and transverse colon. The polyps were 3 to 6 mm in size. These polyps were removed with a hot snare. Resection and retrieval were complete. A 25 mm polyp was found in the sigmoid colon. The polyp was semi-pedunculated. The polyp was removed with a piecemeal technique using a hot snare. Resection and retrieval were complete. Sent for frozen/ r/o malignancy- friable tissue; due to tortuous colon/redundant colon unable to visualize base on re-entry after retrieving polyp. Estimated blood loss was minimal. An 8 mm polyp was found in the sigmoid colon. The polyp was semi-pedunculated. The polyp was removed with a hot snare. Resection and retrieval were complete. Area was tattooed with an injection of Fiona ink. at 40 cm Multiple carpet-like and multi-lobulated, non-bleeding polyps were found in the hepatic flexure, ascending colon and cecum. The polyps were medium in size. Polypectomy was not attempted due to polyp size (too large to be excised). Area was tattooed with an injection of Fiona ink-distal to hepatic flexure polyps (most distal polyps not removed). Polypectomy was not attempted due to polyp size (too large to be excised). Impression: - Seven 3 to 6 mm polyps in the sigmoid colon, in the descending colon and in the transverse colon, removed with a hot snare. Resected and retrieved. - One 25 mm polyp in the sigmoid colon, removed piecemeal using a hot snare. Resected and retrieved. - One 8 mm polyp in the sigmoid colon, removed with a hot snare. Resected and retrieved. Tattooed. - Multiple medium, non-bleeding polyps at the hepatic flexure, in the ascending colon and in the cecum. Resection not attempted. Tattooed. Recommendation: - Repeat colonoscopy 6 month- 1 year for surveillance based on pathology results. - Discharge patient to home. - Clear liquid diet today. - Continue present medications. - No aspirin, ibuprofen, naproxen, or other non-steroidal anti-inflammatory drugs for 3 days after polyp removal. - Will plan f (more content not included)... Normal [facility] Eosinophil percentageOrdered By: Zuleyma Storm on 12-11-2024 Eosinophils/100 WBC (Bld) 3.5 % 0-5 [facility] Erythrocyte distribution wid th ratioOrdered By: Zuleyma Storm on 12-11-2024 Erythrocyte distribution width (RBC) [Ratio] 21.2 % High 11.6-14.6 [facility] Erythrocyte distribution wid th standard deviationOrdered By: Zuleyma Storm on 12-11-2024 Erythrocyte distribution width (RBC) [Ratio] 55.2 fl High 35.1-43.9 [facility] Frozen Section (charge)on Frozen Section (charge) Patient Age/Sex Location Account Attending Physician MARGAUX SANDERSON 84/M EN [id number] Dr. Zuleyma Storm MD Specimen: [id number] Received: 12/11/24 Status: EMELY Doshi Num: [id number] Spec Type: COLON BX Subm Dr: Dr. Zuleyma Storm MD HEADER OPERATION: Colonoscopy with polypectomy, tattoo application PRE-OP DIAGNOSIS: Tubulovillous adenoma, multiple polyps of sigmoid colon, anemia TISSUE SUBMITTED: A- Sigmoid colon polyp #2, B- Transverse colon polyp x2, C- Descending colon polyp, D- Descending colon polyp #2 (60cm), E- Sigmoid colon polyp (40cm) F- Sigmoid colon polyp #3 FROZEN SECTION DIAGNOSIS A. Sigmoid colon, polyp, biopsy: Deferred to permanents (rapid overnight processing). MS/mr 12/11/2024 MICROSCOPIC DIAGNOSIS A. Sigmoid colon, polyp #2, biopsy: - Tubulovillous adenoma - see note. Note: The stalk is fragmented, limiting assessment of the surgical margin. The presumed surgical margin identified by cautery artifact is negative for dysplasia. No high grade dysplasia or invasive carcinoma is seen in these sections. Stalk hemorrhage and fragments of blood clot are also noted. B. Transverse colon, polyp, biopsy: - Tubulovillous adenoma, multiple fragments. C. Descending colon, polyp, biopsy: - Tubular adenoma. D. Descending colon, polyp #2, biopsy: - Tubulovillous adenoma, multiple fragments. E. Sigmoid colon, polyp, biopsy: - Tubulovillous adenoma, multiple fragments. F. Sigmoid colon, polyp #3, biopsy: - Tubulovillous adenoma. COMMENT The diagnosis is called to Dr Brandi Storm at 8:39 AM 12/12/[address] Celia Moss.. MICROSCOPIC DESCRIPTION Slides are reviewed. Patient Age/Sex Location Account Attending Physician MARIA EMARGAUX RANGEL 84/M EN [id number] Dr. Zuleyma Storm MD GROSS DESCRIPTION A. Received in fixative is one container labeled with the patient's name and designated Sigmoid colon polyp #2 is a 3.5 x 2.5 x 1.2 cm fragmented polyp. The stalk is inked black. Serially sections are totoally submitted in 4 cassettes. B. Received in fixative is one container labeled with the patient's name and designated Transverse colon polyp x2 are multiple irregular fragments of light weber soft tissue admixed with flocculent material, that in aggregate measure 1.2 x 0.8 x 0.3 cm. The specimen is totally submitted in one cassette. C. Received in fixative is one container labeled with the patient's name and designated Descending colon polyp is one irregular fragment of light weber soft tissue that measures 0.8 x 0.8 x 0.2 cm; a presumed margin is inked blue and the fragment is bisected. The specimen is totally submitted in one cassette. D. Received in fixative is one container labeled with the patient's name and designated Descending colon polyp #2 - 60 cm x3 are multiple irregular fragments of light weber soft tissue, admixed with flocculent material, that in aggregate measure 1.7 x 1.6 x 0.3 cm. The specimen is totally submitted in one cassette. No definitive margins are identified grossly. E. Received in fixative is one container labeled with the patient's name and designated Sigmoid colon polyp - 40cm. are multiple irregular fragments of light weber soft tissue that in aggregate measure 1.6 x 1.2 x 0.3 cm. The specimen is totally submitted in one cassette. F. Received in fixative is one container labeled with the patient's name and designated Sigmoid colon polyp #3. Is one irregular fragment of light weber soft tissue that measures 0.7 x 0.3 x 0.3 cm. The specimen is totally submitted in one cassette; presumed margin is inked black.. MO 12/11/2024 [facility]:[id number] Patient Age/Sex Location Account Attending Physician MARGAUX SANDERSON 84/M EN [id number] Dr. Zuleyma Storm MD Signed (signature on file) Dr. Ivonne Moss MD 12/12/24 0844 Normal [facility] Comment on above: Performed By: #### P FSC ####[facility] [id number] [place], [place], [id number] Hematocrit Auto (Bld) [Volum e fraction]Ordered By: Zuleyma Storm on 12-11-2024 Hematocrit (Bld) [Volume fraction] 35.0 % Low 40-54 [facility] Hemoglobin measurementOrdere d By: [facility] on 12-11-2024 Hemoglobin (Bld) [Mass/Vol] 10.8 g/dL Low 13.0-16.5 [facility] Immature granulocytes/100 WB C Auto (Bld)Ordered By: Zuleymacorazon Storm on 12-11-2024 Immature granulocytes/100 WBC (Bld) 0.500 % 0.0-0.9 [facility] Comment on above: IG% - Immature Granu locytes (promyelocytes, myelocytes and metamyelocytes) > 1% indicates that a LEFT SHIFT is Present. Laboratory - Hematology and Cell countsOrdered By: Zuleyma Storm on 12-11-2024 Anisocytosis Ql (Bld) RARE [facility] MCV (mean corpuscular volume ) determinationOrdered By: Zuleyma Storm on 12-11-2024 MCV (RBC) [Entitic vol] 73.5 fL Low 80-94 [facility] MR/OP.PROVATon 12-11-2024 MR/OP.PROVAT [facility] Medical Records Department [address] [place] [address] Provation Physician Letter MR#: [id number] Acct: [id number] Name: MARGAUX SANDERSON Rep #: [id number] : 1940 84 From: Zuleyma Storm MD PCP: Dr. Alexander Steiner MD Status:REG [facility] 12/11/2024 Alexander Steiner MD [address] [place] [address] Re : Colonoscopy procedure for Margaux Sanderson Dear Dr. Steiner This procedure was performed on Monday, December 11, 2024. My impressions and recommendations are as follows: Impressions : - Seven 3 to 6 mm polyps in the sigmoid colon, in the descending colon and in the transverse colon, removed with a hot snare. Resected and retrieved. - One 25 mm polyp in the sigmoid colon, removed piecemeal using a hot snare. Resected and retrieved. - One 8 mm polyp in the sigmoid colon, removed with a hot snare. Resected and retrieved. Tattooed. - Multiple medium, non-bleeding polyps at the hepatic flexure, in the ascending colon and in the cecum. Resection not attempted. Tattooed. Recommendations : - Repeat colonoscopy 6 month- 1 year for surveillance based on pathology results. - Discharge patient to home. - Clear liquid diet today. - Continue present medications. - No aspirin, ibuprofen, naproxen, or other non-steroidal anti-inflammatory drugs for 3 days after polyp removal. 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 My findings are described in the full procedure note, which is enclosed. If I can be of further assistance, please feel free to contact me at Doctor phone number(s): , Work: . Sincerely, MD Zuleyma Doe MD 12/11/2024 12:21:27 PM This report has been signed electronically. 12/11/24 1221 Date Zuleyma Lutherignelza Signature: Date (if indicated) CC: Dr. Alexander Steiner MD; Dr. Zuleyma Storm MD Date Dictated: 12/11/24 1005 Date Transcribed: Bridge Repairer: RANDI Signed [facility] [id number] 12-11-2024 MR/POSTOPAN2 [facility] Medical Records Department [address] [place] [address] Anesthesia Postop Eval II 12/11/24 1329 MR#: [id number] Acct: [id number] Name: MARGAUX SANDERSON Rep #: [id number] : 1940 84 From: Nitni Santiago MD PCP: Dr. Alexander Steiner MD Status:REG SDC Y Race: C Location: [place] [address] Anesthesia Postop Eval I Sum Anesthesia Postop Eval I Summary Anesthesia Postop Eval I Summary: Anesthesia Postop Eval I: Assessment Summary Airway patent Spontaneous unlabored respirations Mental status nausea Vomiting Anesthesia Postop Eval I: Fluid Summary Crystalloid volume administer (ml) Colloids volume administered ( ml) Blood Product volume administered (ml) Total IV fluid infused Anesthesia Postop Eval I: Summary Notes Anesthesia Complication Anesthesia Complication Comment: Post-operative progress note Anesthesia: Postop Eval II Evaluation Mental status: Awake and Calm Pain Level: 1 nausea: No Vomiting: No Complications Anesthesia Complication: No 12/11/24 1329 Date Nitin Santiago MD Cosigner Signature: Date CC: Signed Normal [facility] Mean corpuscular hemoglobin (MCH) determinationOrdered By: Zuleyma Storm on 12-11-2024 MCH (RBC) [Entitic mass] 22.7 pg Low 27.0-32.0 [facility] Mean corpuscular hemoglobin concentration (MCHC) determinationOrdered By: Zuleyma Storm on 12-11-2024 MCHC (RBC) [Mass/Vol] 30.9 g/dL Low 32-36 [facility] Mean platelet volume determi nationOrdered By: Zuleyma Storm on 12-11-2024 Platelet mean volume (Bld) [Entitic vol] 10.0 fL 6.2-12.0 [facility] Monocyte percentageOrdered B y: [facility] on 12-11-20[facility] Monocytes/100 WBC (Bld) 12.4 % High 0-10 [facility] Neutrophil percentageOrdered By: [facility] on 12-11-2024 Neutrophils/100 WBC (Bld) 72.8 % High 47-70 [facility] Nucleated red blood cell per centageOrdered By: [facility] on 12-11-2024 Nucleated RBC/100 WBC (Bld) [Ratio] 0 % 0-5 [facility] Platelet countOrdered By: [facility] on 12-11-2024 Platelets (Bld) [#/Vol] 266 10*3/uL 150-450 [facility] RBC Auto (Bld) [#/Vol]Ordere d By: Zuleyma [facility] on 12-11-2024 RBC (Bld) [#/Vol] 4.76 10*6/uL 4.6-6.2 [facility] White blood cell (WBC) count Ordered By: Zuleyma [facility] on 12-11-2024 WBC (Bld) [#/Vol] 6.5 10*3/uL 4.4-11.0 [facility] CBC W/Diff, Automatedon 11-25 Anisocytosis Ql (Bld) 1+ Normal [facility] Comment on above: Order Comment: SEND H H TO DR. STEINER Performed By: #### L 100.0100 #### [facility] [address] [place], [place], [address] Magnesiumon 12-09-2024 Magnesium [Mass/Vol] 2.0 mg/dL Normal 1.5-2.[address] [facility] Comment on above: Performed By: #### L 035.5200 #### [facility] Laboratory [address] [place], [place], [address] MR/PAT.ANEon 12-06-2024 MR/PAT.[facility] Medical Records Department [address] [facility] [place] [address] PAT - Anesthesia 12/06/24 1411 MR#: [id number] Acct: [id number] Name: MARGAUX SANDERSON Rep #: [id number] : 1940 84 From: Didier Rodríguez MD PCP: Dr. Alexander Steiner MD Status:PRE SDC Y Race: C Location: EN Pre-Assessment Diagnosis/Proposed Procedure Planned Operative Procedure(s): COLONOSCOPY Anesthesia History Anesthesia History - patient resource specialist: Anesthesia History - patient resource specialist Hx Hospitalization No 12/06/24 09:19 Any Problems With Anesthesia No 12/06/24 09:19 Cholinesterase deficiency No 12/06/24 09:19 You/Your Family Experience No 12/06/24 09:19 fever (hyperthermia) with Relationship Recent Exposure to Contagious No 12/02/24 10:30 Disease Does patient have nerve No 12/06/24 09:19 stimulator Patient instructed to have device shut off --Does patient have Pacemaker or ICD? When Was Last Pacemaker Check QUESTION #4 FULL TEXT: You/Your Family Experience fever (hyperthermia) with Anesthesia Last Oral Intake Last Oral intake: Last Oral Intake NPO since Meds taken in AM with sips of water? 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 - patient resource specialist: PONV - patient resource specialist Female No 12/06/24 09:19 HX of Motion Sickness No 12/06/24 09:19 HX of N/V After Surgery No 12/06/24 09:19 Non-Smoker Yes 12/06/24 09:19 Duration of Surgery greater No 12/06/24 09:19 than 60 minutes Number of Risk Factors 1 12/06/24 09:19 PONV Score Low Risk 12/06/24 09:19 Height Weight Height Weight: Anesthesia: Height Weight Height 5 ft 7 in 12/04/24 13:25 Respiratory Assessment Respiratory Assessment - patient resource specialist: Respiratory Tract Infection Hx - patient resource specialist Hx Respiratory Tract Infection No 12/06/24 09:19 STOP Sleep Apnea STOP Sleep Apnea - patient resource specialist: STOP Sleep Apnea - patient resource specialist Hx Hypertension Yes: NO MED FOR 4 MONTHS/ 12/06/24 09:19 HYPOTENSION AT THIS TIME Hx Sleep Apnea No 12/06/24 09:19 CPAP BIPAP Do you snore loudly (louder No 12/06/24 09:19 than talking or can be heard Do you often feel tired/ No 12/06/24 09:19 fatigued/ sleepy during daytime? Has anyone observed you stop No 12/06/24 09:19 breathing during sleep? STOP Results Negative 12/06/24 09:19 QUESTION #5 FULL TEXT : Do you snore loudly (louder than talking or can be heard through closed doors)? Tobacco Use History Tobacco Use History - patient resource specialist: Tobacco Use History - patient resource specialist Tobacco Use Smoking Status Current every day smoker 12/06/24 09:19 Hx Tobacco Use Yes 12/06/24 09:19 Years Smoking Packs Smoked per Day Smoking Cessation Date was No - quit smoking greater 12/06/24 09:19 within the last 15 years than 15 years ago Hx Smoking Cessation Date 03/27/08 12/06/24 09:19 Hx Smoking Cessation No 12/06/24 09:19 Counseling Hematologic Medial History Hematologic Hx - patient resource specialist: Hematologic Medical Hx - transplant surgeon Hx of Blood Transfusion Yes 12/06/24 09:19 Hx of Transfusion in last 3 Yes 12/06/24 09:19 Months Date of Last Transfusion (if 11/29/2024 12/06/24 09:19 within last 3 months) Ever experience any problems Yes 12/06/24 09:19 with transfusion(s)? Specify any problems FATIGUE AND HEADACHE 12/06/24 09:19 Hx of Preganancy in last 3 N/A 12/06/24 09:19 Months Nurse Filling Out Transfusion DSCHRIBER 12/06/24 09:19 Questions: Date: 12/06/24 12/06/24 09:19 Time: 09:21 12/06/24 09:19 Patient unable to answer at this time (ie. confused, unrespo /Reproduction History /Reproductive History - patient resource specialist: /Reproductive Hx- patient resource specialist Hx Now No 12/06/24 09:19 Gestational Age (in weeks): EDC: Hx Hx Para Hx Section SAB No 12/06/24 09:19 PFSH Medical History (Updated 12/06/24 @ 09:46 by Gill Ortiz) Loss of hearing Cancer Thyroid disease Bladder disease Anemia Chewing tobacco use History of diverticulitis Gastric reflux Shortness of breath on exertion History of pain when walking Hypertension History of echocardiogram Erosive esophagitis BPH (benign prostatic hyperplasia) Acute pancreatitis without necrosis or infection, unspecified Osteoporosis Wears glasses Wears dentures Arthritis High cholesterol Back pain Migraine headache Syncope Former smoker Hx of sinus bradycardia History of stress test Cardiology follow-up encounter Bradycardia Coronary artery calcification Matute esophagus Benign neoplasm of colon COPD (chronic obstructive pulmonary disease) (more content not included)... Normal [facility] MR/PAT.[facility] Medical Records Department [address] [place] [address] PAT - Anesthesia 12/06/24 1018 MR#: [id number] Acct: [id number] Name: MARGAUX SANDERSON Rep #: [id number] : 1940 84 From: Didier Rodríguez MD PCP: Dr. Alexander Steiner MD Status:PRE IN Y Race: C Location: [facility] Pre-Assessment Diagnosis/Proposed Procedure Planned Operative Procedure(s): LAPAROSCOPIC POSS OPEN RIGHT ZOE COLECTOMY Anesthesia History Anesthesia History - patient resource specialist: Anesthesia History - patient resource specialist Hx Hospitalization No 12/06/24 09:42 Any Problems With Anesthesia No 12/06/24 09:42 Cholinesterase deficiency No 12/06/24 09:42 You/Your Family Experience No 12/06/24 09:42 fever (hyperthermia) with Relationship Recent Exposure to Contagious No 12/02/24 10:30 Disease Does patient have nerve No 12/06/24 09:42 stimulator Patient instructed to have device shut off --Does patient have Pacemaker or ICD? When Was Last Pacemaker Check QUESTION #4 FULL TEXT: You/Your Family Experience fever (hyperthermia) with Anesthesia Last Oral Intake Last Oral intake: Last Oral Intake NPO since Meds taken in AM with sips of water? 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 - patient resource specialist: PONV - patient resource specialist Female No 12/06/24 09:42 HX of Motion Sickness No 12/06/24 09:42 HX of N/V After Surgery No 12/06/24 09:42 Non-Smoker No 12/06/24 09:42 Duration of Surgery greater Yes 12/06/24 09:42 than 60 minutes Number of Risk Factors 1 12/06/24 09:42 PONV Score Low Risk 12/06/24 09:42 Height Weight Height Weight: Anesthesia: Height Weight Height 5 ft 7 in 12/04/24 13:25 Respiratory Assessment Respiratory Assessment - patient resource specialist: Respiratory Tract Infection Hx - patient resource specialist Hx Respiratory Tract Infection No 12/06/24 09:42 STOP Sleep Apnea STOP Sleep Apnea - patient resource specialist: STOP Sleep Apnea - patient resource specialist Hx Hypertension Yes: NO MEDS FOR 4 MONTHS/ 12/06/24 09:42 CURRENTLY HYPOTENSIVE Hx Sleep Apnea No 12/06/24 09:42 CPAP BIPAP Do you snore loudly (louder No 12/06/24 09:42 than talking or can be heard Do you often feel tired/ No 12/06/24 09:42 fatigued/ sleepy during daytime? Has anyone observed you stop No 12/06/24 09:42 breathing during sleep? STOP Results Negative 12/06/24 09:42 QUESTION #5 FULL TEXT : Do you snore loudly (louder than talking or can be heard through closed doors)? Tobacco Use History Tobacco Use History - patient resource specialist: Tobacco Use History - patient resource specialist Tobacco Use Smoking Status Current every day smoker 12/06/24 09:42 Hx Tobacco Use Yes 12/06/24 09:42 Years Smoking Packs Smoked per Day Smoking Cessation Date was within the last 15 years Hx Smoking Cessation Date 03/27/08 12/06/24 09:42 Hx Smoking Cessation No 12/06/24 09:42 Counseling Hematologic Medial History Hematologic Hx - patient resource specialist: Hematologic Medical Hx - transplant surgeon Hx of Blood Transfusion Yes 12/06/24 09:42 Hx of Transfusion in last 3 Yes 12/06/24 09:42 Months Date of Last Transfusion (if 11/29/24 12/06/24 09:42 within last 3 months) Ever experience any problems Yes 12/06/24 09:42 with transfusion(s)? Specify any problems FATIGUE AND HEADACHE 12/06/24 09:42 Hx of Preganancy in last 3 N/A 12/06/24 09:42 Months Nurse Filling Out Transfusion DSCHRIBER 12/06/24 09:42 Questions: Date: 12/06/24 12/06/24 09:42 Time: 09:43 12/06/24 09:42 Patient unable to answer at this time (ie. confused, unrespo /Reproduction History /Reproductive History - patient resource specialist: /Reproductive Hx- patient resource specialist Hx Now No 12/06/24 09:42 Gestational Age (in weeks): EDC: Hx Hx Para Hx Section SAB No 12/06/24 09:42 PFSH Medical History (Updated 12/06/24 @ 09:46 by Gill Ortiz) Loss of hearing Cancer Thyroid disease Bladder disease Anemia Chewing tobacco use History of diverticulitis Gastric reflux Shortness of breath on exertion History of pain when walking Hypertension History of echocardiogram Erosive esophagitis BPH (benign prostatic hyperplasia) Acute pancreatitis without necrosis or infection, unspecified Osteoporosis Wears glasses Wears dentures Arthritis High cholesterol Back pain Migraine headache Syncope Former smoker Hx of sinus bradycardia History of stress test Cardiology follow-up encounter Bradycardia Coronary artery calcification Matute esophagus Benign neoplasm of colon COPD (chronic obstructive pulmonary disease) Home Medications ? (more content not included)... [facility] MR/PAT.[facility] Medical Records Department [address] [place] [address] PAT - Anesthesia 12/06/24 1007 MR#: [id number] Acct: [id number] Name: MARGAUX SANDERSON Rep #: [id number] : 1940 84 From: Didier Rodríguez MD PCP: Dr. Alexander Steiner MD Status:PRE IN Y Race: C Location: [facility] Pre-Assessment Diagnosis/Proposed Procedure Planned Operative Procedure(s): LAPAROSCOPIC POSS OPEN RIGHT ZOE COLECTOMY Anesthesia History Anesthesia History - patient resource specialist: Anesthesia History - patient resource specialist Hx Hospitalization No 12/06/24 09:42 Any Problems With Anesthesia No 12/06/24 09:42 Cholinesterase deficiency No 12/06/24 09:42 You/Your Family Experience No 12/06/24 09:42 fever (hyperthermia) with Relationship Recent Exposure to Contagious No 12/02/24 10:30 Disease Does patient have nerve No 12/06/24 09:42 stimulator Patient instructed to have device shut off --Does patient have Pacemaker or ICD? When Was Last Pacemaker Check QUESTION #4 FULL TEXT: You/Your Family Experience fever (hyperthermia) with Anesthesia Last Oral Intake Last Oral intake: Last Oral Intake NPO since Meds taken in AM with sips of water? 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 - patient resource specialist: PONV - patient resource specialist Female No 12/06/24 09:42 HX of Motion Sickness No 12/06/24 09:42 HX of N/V After Surgery No 12/06/24 09:42 Non-Smoker No 12/06/24 09:42 Duration of Surgery greater Yes 12/06/24 09:42 than 60 minutes Number of Risk Factors 1 12/06/24 09:42 PONV Score Low Risk 12/06/24 09:42 Height Weight Height Weight: Anesthesia: Height Weight Height 5 ft 7 in 12/04/24 13:25 Respiratory Assessment Respiratory Assessment - patient resource specialist: Respiratory Tract Infection Hx - patient resource specialist Hx Respiratory Tract Infection No 12/06/24 09:42 STOP Sleep Apnea STOP Sleep Apnea - patient resource specialist: STOP Sleep Apnea - patient resource specialist Hx Hypertension Yes: NO MEDS FOR 4 MONTHS/ 12/06/24 09:42 CURRENTLY HYPOTENSIVE Hx Sleep Apnea No 12/06/24 09:42 CPAP BIPAP Do you snore loudly (louder No 12/06/24 09:42 than talking or can be heard Do you often feel tired/ No 12/06/24 09:42 fatigued/ sleepy during daytime? Has anyone observed you stop No 12/06/24 09:42 breathing during sleep? STOP Results Negative 12/06/24 09:42 QUESTION #5 FULL TEXT : Do you snore loudly (louder than talking or can be heard through closed doors)? Tobacco Use History Tobacco Use History - patient resource specialist: Tobacco Use History - patient resource specialist Tobacco Use Smoking Status Current every day smoker 12/06/24 09:42 Hx Tobacco Use Yes 12/06/24 09:42 Years Smoking Packs Smoked per Day Smoking Cessation Date was within the last 15 years Hx Smoking Cessation Date 03/27/08 12/06/24 09:42 Hx Smoking Cessation No 12/06/24 09:42 Counseling Hematologic Medial History Hematologic Hx - patient resource specialist: Hematologic Medical Hx - transplant surgeon Hx of Blood Transfusion Yes 12/06/24 09:42 Hx of Transfusion in last 3 Yes 12/06/24 09:42 Months Date of Last Transfusion (if 11/29/24 12/06/24 09:42 within last 3 months) Ever experience any problems Yes 12/06/24 09:42 with transfusion(s)? Specify any problems FATIGUE AND HEADACHE 12/06/24 09:42 Hx of Preganancy in last 3 N/A 12/06/24 09:42 Months Nurse Filling Out Transfusion DSCHRIBER 12/06/24 09:42 Questions: Date: 12/06/24 12/06/24 09:42 Time: 09:43 12/06/24 09:42 Patient unable to answer at this time (ie. confused, unrespo /Reproduction History /Reproductive History - patient resource specialist: /Reproductive Hx- patient resource specialist Hx Now No 12/06/24 09:42 Gestational Age (in weeks): EDC: Hx Hx Para Hx Section SAB No 12/06/24 09:42 [facility] Medical History (Updated 12/06/24 @ 09:46 by Gill Ortiz) Loss of hearing Cancer Thyroid disease Bladder disease Anemia Chewing tobacco use History of diverticulitis Gastric reflux Shortness of breath on exertion History of pain when walking Hypertension History of echocardiogram Erosive esophagitis BPH (benign prostatic hyperplasia) Acute pancreatitis without necrosis or infection, unspecified Osteoporosis Wears glasses Wears dentures Arthritis High cholesterol Back pain Migraine headache Syncope Former smoker Hx of sinus bradycardia History of stress test Cardiology follow-up encounter Bradycardia Coronary artery calcification Matute esophagus Benign neoplasm of colon COPD (chronic obstructive pulmonary disease) Home Medications ? (more content not included)... Normal [facility] MR/PAT.[facility] Medical Records Department [address] [place] [address] PAT - Anesthesia 12/06/24 1005 MR#: [id number] Acct: [id number] Name: MARGAUX SANDERSON Rep #: [id number] : 1940 84 From: Didier Rodríguez MD PCP: Dr. Alexander Steiner MD Status:PRE IN Y Race: C Location: [facility] Pre-Assessment Diagnosis/Proposed Procedure Planned Operative Procedure(s): LAPAROSCOPIC POSS OPEN RIGHT ZOE COLECTOMY Anesthesia History Anesthesia History - patient resource specialist: Anesthesia History - patient resource specialist Hx Hospitalization No 12/06/24 09:42 Any Problems With Anesthesia No 12/06/24 09:42 Cholinesterase deficiency No 12/06/24 09:42 You/Your Family Experience No 12/06/24 09:42 fever (hyperthermia) with Relationship Recent Exposure to Contagious No 12/02/24 10:30 Disease Does patient have nerve No 12/06/24 09:42 stimulator Patient instructed to have device shut off --Does patient have Pacemaker or ICD? When Was Last Pacemaker Check QUESTION #4 FULL TEXT: You/Your Family Experience fever (hyperthermia) with Anesthesia Last Oral Intake Last Oral intake: Last Oral Intake NPO since Meds taken in AM with sips of water? 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 - patient resource specialist: PONV - patient resource specialist Female No 12/06/24 09:42 HX of Motion Sickness No 12/06/24 09:42 HX of N/V After Surgery No 12/06/24 09:42 Non-Smoker No 12/06/24 09:42 Duration of Surgery greater Yes 12/06/24 09:42 than 60 minutes Number of Risk Factors 1 12/06/24 09:42 PONV Score Low Risk 12/06/24 09:42 Height Weight Height Weight: Anesthesia: Height Weight Height 5 ft 7 in 12/04/24 13:25 Respiratory Assessment Respiratory Assessment - patient resource specialist: Respiratory Tract Infection Hx - patient resource specialist Hx Respiratory Tract Infection No 12/06/24 09:42 STOP Sleep Apnea STOP Sleep Apnea - patient resource specialist: STOP Sleep Apnea - patient resource specialist Hx Hypertension Yes: NO MEDS FOR 4 MONTHS/ 12/06/24 09:42 CURRENTLY HYPOTENSIVE Hx Sleep Apnea No 12/06/24 09:42 CPAP BIPAP Do you snore loudly (louder No 12/06/24 09:42 than talking or can be heard Do you often feel tired/ No 12/06/24 09:42 fatigued/ sleepy during daytime? Has anyone observed you stop No 12/06/24 09:42 breathing during sleep? STOP Results Negative 12/06/24 09:42 QUESTION #5 FULL TEXT : Do you snore loudly (louder than talking or can be heard through closed doors)? Tobacco Use History Tobacco Use History - patient resource specialist: Tobacco Use History - patient resource specialist Tobacco Use Smoking Status Current every day smoker 12/06/24 09:42 Hx Tobacco Use Yes 12/06/24 09:42 Years Smoking Packs Smoked per Day Smoking Cessation Date was within the last 15 years Hx Smoking Cessation Date 03/27/08 12/06/24 09:42 Hx Smoking Cessation No 12/06/24 09:42 Counseling Hematologic Medial History Hematologic Hx - patient resource specialist: Hematologic Medical Hx - transplant surgeon Hx of Blood Transfusion Yes 12/06/24 09:42 Hx of Transfusion in last 3 Yes 12/06/24 09:42 Months Date of Last Transfusion (if 11/29/24 12/06/24 09:42 within last 3 months) Ever experience any problems Yes 12/06/24 09:42 with transfusion(s)? Specify any problems FATIGUE AND HEADACHE 12/06/24 09:42 Hx of Preganancy in last 3 N/A 12/06/24 09:42 Months Nurse Filling Out Transfusion DSCHRIBER 12/06/24 09:42 Questions: Date: 12/06/24 12/06/24 09:42 Time: 09:43 12/06/24 09:42 Patient unable to answer at this time (ie. confused, unrespo /Reproduction History /Reproductive History - patient resource specialist: /Reproductive Hx- patient resource specialist Hx Now No 12/06/24 09:42 Gestational Age (in weeks): EDC: Hx Hx Para Hx Section SAB No 12/06/24 09:42 [facility] Medical History (Updated 12/06/24 @ 09:46 by Gill Ortiz) Loss of hearing Cancer Thyroid disease Bladder disease Anemia Chewing tobacco use History of diverticulitis Gastric reflux Shortness of breath on exertion History of pain when walking Hypertension History of echocardiogram Erosive esophagitis BPH (benign prostatic hyperplasia) Acute pancreatitis without necrosis or infection, unspecified Osteoporosis Wears glasses Wears dentures Arthritis High cholesterol Back pain Migraine headache Syncope Former smoker Hx of sinus bradycardia History of stress test Cardiology follow-up encounter Bradycardia Coronary artery calcification Matute esophagus Benign neoplasm of colon COPD (chronic obstructive pulmonary disease) Home Medications ? (more content not included)... Normal [facility] Surgery Visit Reporton 12-04 Surgery Visit Report [facility] [address] [place] [address]. [address] [place] [address] OFFICE VISIT Date of Service: 12/04/24 MR#: [id number] Acct: [id number] Name: MARGAUX SANDERSON Rep #: [id number] : 1940 Provider: Dr. Zuleyma cedillo MD Age/Sex: 84/M Location: [facility] Status: Signed Intake Vital Signs 12/02/24 09:16 12/02/24 10:30 12/04/24 13:25 Height 5 ft 7 in 5 ft 7 in 5 ft 7 in Weight: 115 lb BMI 18.0 BP 127/70 H Blood Pressure Location Lt brachial Position Sitting Respiration 18 Pulse 105 H Pulse Source Monitor Pulse Oximetry (%) 98 Oxygen Delivery Method room air Intake Visit Reasons: 2ND OPINION Chief Complaint: 2nd opinion, surgery Is patient in pain?: No Allergies No Known Allergies Allergy (Verified 12/04/24 13:32) Medications ???Medication ???Instructions ???Recorded ???Confirmed ???Type aspirin 81 mg tablet,delayed 81 mg PO DAILY 01/27/16 12/04/24 H istory release terazosin 1 mg capsule 1 mg PO DAILY 04/18/19 12/04/24 Hi story omeprazole 40 mg capsule,delayed 40 mg PO DAILY 05/25/19 12/04/24 H istory release tamsulosin 0.4 mg capsule 0.4 mg PO DAILY 04/20/21 12/04/24 History budesonide 0.25 mg/2 mL suspension 0.25 mg inhalation BID 10/20/21 12/04/24 History for nebulization multivitamin 1 tab PO DAILY 12/12/22 12/04/24 H istory finasteride 5 mg tablet 5 mg PO DAILY 11/15/23 12/04/24 Hi story levothyroxine 112 mcg tablet 112 mcg PO QDAY 11/28/23 12/04/24 History roflumilast 500 mcg tablet 500 mcg PO QDAY 09/24/24 12/04/24 History (Daliresp) albuterol 90 mcg/actuation aerosol mcg inhalation 12/02/24 12/04/24 History inhaler atorvastatin 80 mg tablet (Lipitor) 60 mg PO QHS 12/02/24 12/04/24 History metronidazole 500 mg tablet 500 mg PO .COMPLEX #6 tabs 5 12/04/24 Rx neomycin 500 mg tablet 500 mg PO .COMPLEX pre-op 12/04/24 12/04/24 Rx antibiotics #6 tabs sodium sul 1.479 gram-potas ch See Rx Instructions PO PER PKG DIR 12/04/24 12/04/24 Rx 0.188 gram-magnes sul 0.225 gram #1 pkg tablet (Sutab) Have you fallen in the past year?: [...] daily uses ibuprofen as needed HPI HPI HPI: 84-year-old male presents for a second opinion due to multiple colon polyps and 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 Patient patient and family do not want to go all the way up to [place] for another colonoscopy and surgery. Plan was for a 2-day prep as he had a poor prep for the first 1 and a colonoscopy the first day and secondary laparoscopic right hemicolectomy. Discussed with family and the patient that would be a reasonable plan due to the poor prep. Did review patient's previous colonoscopy note, pictures and pathology. Patient did just get 2 units p (more content not included)... Normal [facility] Absolute lymphocyte countOrd ered By: Alexander Steiner on 12-03-2024 Lymphocytes Auto (Unsp spec) [#/Vol] 0.83 10*3/uL 0.83-4.51 [facility] Absolute neutrophil countOrd ered By: Alexander Steiner on 12-03-2024 Neutrophils (Bld) [#/Vol] 6.0 10*3/uL 2.0-7.7 [facility] Automated lymphocyte count a s percentage of total leukocytesOrdered By: Alexander Steiner on 12-03-2024 Lymphocytes/100 WBC Auto (Unsp spec) 10.2 % Low 19-41 [facility] Basophil percentageOrdered B y: Alexander Steiner on 12-03-2024 Basophils/100 WBC (Bld) 1.0 % 0-1 [facility] CBC W/Diff, Automatedon Absolute Lymph 0.83 X10 3/uL Normal 0.83-4.51 [facility] Comment on above: Performed By: #### L 100.0100 ####[facility] [address] [place], [address] Absolute Neut 6.0 X10 3/uL Normal 2.0-7.7 [facility] Comment on above: Performed By: #### L 100.0100 ####[facility] [address] [place], [address] Basophils/100 WBC (Bld) 1.0 % Normal 0-1 [facility] Comment on above: Performed By: #### L 100.0100 ####[facility] [address] [place], [address] Eosinophils/100 WBC (Bld) 2.8 % Normal 0-5 [facility] Comment on above: Performed By: #### L 100.0100 ####[facility] [address] [place], [address] Erythrocyte distribution width (RBC) [Ratio] 19.5 % High 11.6-14.6 [facility] Comment on above: Performed By: #### L 100.0100 ####[facility] [address] [place], [address] Hematocrit (Bld) [Volume fraction] 36.3 % Low 40-54 [facility] Comment on above: Performed By: #### L 100.0100 ####[facility] [address] [place], [address] Hemoglobin (Bld) [Mass/Vol] 11.4 g/dL Low 13.0-16.5 [facility] Comment on above: Performed By: #### L 100.0100 ####[facility] [address] [place], [address] IG% 0.200 Normal 0.0-0.9 [facility] Comment on above: Result Comment: IG% - Immature Granulocytes (promyelocytes, myelocytes and metamyelocytes) > 1% indicates that a LEFT SHIFT is Present. Performed By: #### L 100.0100 ####[facility] [address] [place], [address] Lymphocytes/100 WBC (Bld) 10.2 % Low 19-41 [facility] Comment on above: Performed By: #### L 100.0100 ####[facility] [address] [place], [address] MCH (RBC) [Entitic mass] 22.9 pg Low 27.0-32.0 [facility] Comment on above: Performed By: #### L 100.0100 ####[facility] [address] [place], [address] MCHC (RBC) [Mass/Vol] 31.4 g/dL Low 32-36 [facility] Comment on above: Performed By: #### L 100.0100 ####[facility] [address] [place], [address] MCV (RBC) [Entitic vol] 72.9 fL Low 80-94 [facility] Comment on above: Performed By: #### L 100.0100 ####[facility] [address] [place], [address] Monocytes/100 WBC (Bld) 13.0 % High 0-10 [facility] Comment on above: Performed By: #### L 100.0100 ####[facility] [address] [place], [address] Neutrophils/100 WBC (Bld) 72.8 % High 47-70 [facility] Comment on above: Performed By: #### L 100.0100 ####[facility] [address] [place], [address] Nucleated RBC (Bld) [#/Vol] 0 10*3/uL Normal 0-5 [facility] Comment on above: Performed By: #### L 100.0100 ####[facility] [address] [place], [address] Platelet mean volume (Bld) [Entitic vol] 9.8 fL Normal 6.2-12.0 [facility] Comment on above: Performed By: #### L 100.0100 ####[facility] [address] [place], [address] Platelets (Bld) [#/Vol] 319 10*3/uL Normal 150-450 [facility] Comment on above: Performed By: #### L 100.0100 ####[facility] [address] [place], [address] RBC (Bld) [#/Vol] 4.98 10*6/uL Normal 4.6-6.2 [facility] Comment on above: Performed By: #### L 100.0100 ####[facility] [address] [place], [address] RDW SD 50.1 fl High 35.1-43.9 [facility] Comment on above: Performed By: #### L 100.0100 ####[facility] [address] [place], [place], [address] WBC (Bld) [#/Vol] 8.2 10*3/uL Normal 4.4-11.0 [facility] Comment on above: Performed By: #### L 100.0100 ####[facility] [address] [place], [address] Eosinophil percentageOrdered By: [facility] on 12-03-2024 Eosinophils/100 WBC (Bld) 2.8 % 0-5 [facility] Erythrocyte distribution wid th ratioOrdered By: [facility] on 12-03-2024 Erythrocyte distribution width (RBC) [Ratio] 19.5 % High 11.6-14.6 [facility] Erythrocyte distribution wid th standard deviationOrdered By: [facility] 12-03-2024 Erythrocyte distribution width (RBC) [Ratio] 50.1 fl High 35.1-43.9 [facility] Hematocrit Auto (Bld) [Volum e fraction]Ordered By: [facility] 12-03-2024 Hematocrit (Bld) [Volume fraction] 36.3 % Low 40-54 [facility] Hemoglobin measurementOrdere d By: [facility] 12-03-2024 Hemoglobin (Bld) [Mass/Vol] 11.4 g/dL Low 13.0-16.5 [facility] Immature granulocytes/100 WB C Auto (Bld)Ordered By: [facility] 12-03-2024 Immature granulocytes/100 WBC (Bld) 0.200 % 0.0-0.9 [facility] Comment on above: IG% - Immature Granu locytes (promyelocytes, myelocytes and metamyelocytes) > 1% indicates that a LEFT SHIFT is Present. MCV (mean corpuscular volume ) determinationOrdered By: Alexander Jatin 12-03-2024 MCV (RBC) [Entitic vol] 72.9 fL Low 80-94 [facility] Mean corpuscular hemoglobin (MCH) determinationOrdered By: [facility] 12-03-2024 MCH (RBC) [Entitic mass] 22.9 pg Low 27.0-32.0 [facility] Mean corpuscular hemoglobin concentration (MCHC) determinationOrdered By: Alexander Steiner on 12-03-2024 MCHC (RBC) [Mass/Vol] 31.4 g/dL Low 32-36 [facility] Mean platelet volume determi nationOrdered By: Alexander Steiner on 12-03-2024 Platelet mean volume (Bld) [Entitic vol] 9.8 fL 6.2-12.0 [facility] Monocyte percentageOrdered B y: Alexander Packerok on 12-03-2024 Monocytes/100 WBC (Bld) 13.0 % High 0-10 [facility] Neutrophil percentageOrdered By: Alexander Packerok on 12-03-2024 Neutrophils/100 WBC (Bld) 72.8 % High 47-70 [facility] Nucleated red blood cell per centageOrdered By: Alexander Steiner on 12-03-2024 Nucleated RBC/100 WBC (Bld) [Ratio] 0 % 0-5 [facility] Platelet countOrdered By: Emmett Steiner on 12-03-2024 Platelets (Bld) [#/Vol] 319 10*3/uL 150-450 [facility] RBC Auto (Bld) [#/Vol]Ordere d By: Alexander Steiner on 12-03-2024 RBC (Bld) [#/Vol] 4.98 10*6/uL 4.6-6.2 [facility] White blood cell (WBC) count Ordered By: Alexander Stiener on 12-03-2024 WBC (Bld) [#/Vol] 8.2 10*3/uL 4.4-11.0 [facility] BRCon 11-29-2024 RC Normal [facility] Comment on above: Result Comment: [id number] OP RC TRANSFUSED 12/02/24 1133 [id number] OP RC TRANSFUSED 12/02/24 0931 Performed By: #### B RC, M100.7900, BTS ####[facility] [address] [place], [place], [address] Result Comment: [id number] OP RC XM COMPATIBLE [id number] OP RC XM COMPATIBLE Performed By: #### L 100.0100, L500.4050, L300.3900 #### [facility] [address] [place], [address] Stool Occult Blood iFOBon STOB Positive Normal [facility] Comment on above: Performed By: #### B , M100.7900, BTS ####[facility] [address] [place], [address] Performed By: #### L 100.0100, L500.4050, L300.3900 #### [facility] [address] [place], [address] Stool gastrointestinal hemog lobin detection by immunologic methodOrdered By: Alexander Steiner on 11-29-2024 Lower GI hemoglobin IA Ql (Stl) Positive Abnormal [facility] Type AND Screenon 11-29-2024 Ab SCREEN GEL Negative Normal [facility] Comment on above: Order Comment: NTNYA Performed By: #### B , M100.7900, BTS ####[facility] [address] [place], [address] ABO and Rh group Nom (Bld) Blood group O Rh(D) positive Normal [facility] Comment on above: Order Comment: NTNYA Performed By: #### Dylon , M100.7900, BTS ####[facility] [address] [place], [address] Order Comment: A Performed By: #### L 100.0100, L500.4050, L300.3900 #### [facility] [address] [place], [address] Absolute lymphocyte countOrd ered By: Alexander Steiner on 11-28-2024 Lymphocytes Auto (Unsp spec) [#/Vol] 0.97 10*3/uL 0.83-4.51 [facility] Absolute neutrophil countOrd ered By: Alexander Steiner on 11-28-2024 Neutrophils (Bld) [#/Vol] 4.5 10*3/uL 2.0-7.7 [facility] Anion gap in Serum or Plasma Ordered By: Alexander Steiner on 11-28-2024 Anion gap [Moles/Vol] 9 mmol/L 5-15 [facility] Automated lymphocyte count a s percentage of total leukocytesOrdered By: Alexander Steiner on 11-28-2024 Lymphocytes/100 WBC Auto (Unsp spec) 14.6 % Low 19- [facility] BUN/creatinine ratioOrdered By: [facility] Urea nitrogen/Creatinine [Mass ratio] 11.4 mg/mg 10- [facility] Basophil percentageOrdered B y: Alexander Steiner on 11-28-2024 Basophils/100 WBC (Bld) 0.9 % 0-1 [facility] Bilirubin, totalOrdered By: Alexander Steiner on 11-28-2024 Bilirubin [Mass/Vol] 0.43 mg/dL 0.00-1.[address] [facility] CBC W/Diff, Automatedon Absolute Lymph 0.97 X10 3/uL Normal 0.83-4.51 [facility] Comment on above: Performed By: #### L 100.0100, L500.4050, L300.3900 #### [facility] [address] [place], [address] Absolute Neut 4.5 X10 3/uL Normal 2.0-7.7 [facility] Comment on above: Performed By: #### L 100.0100, L500.4050, L300.3900 #### [facility] [address] [place], [address] Basophils/100 WBC (Bld) 0.9 % Normal 0-1 [facility] Comment on above: Performed By: #### L 100.0100, L500.4050, L300.3900 #### [facility] [address] [place], [address] Eosinophils/100 WBC (Bld) 2.9 % Normal 0-5 [facility] Comment on above: Performed By: #### L 100.0100, L500.4050, L300.3900 #### [facility] [address] [place], [address] Erythrocyte distribution width (RBC) [Ratio] 18.1 % High 11.6-14.6 [facility] Comment on above: Performed By: #### L 100.0100, L500.4050, L300.3900 #### [facility] [address] [place], [address] Hematocrit (Bld) [Volume fraction] 30.0 % Low 40-54 [facility] Comment on above: Performed By: #### L 100.0100, L500.4050, L300.3900 #### [facility] [address] [place], [address] Hemoglobin (Bld) [Mass/Vol] 9.0 g/dL Low 13.0-16.5 [facility] Comment on above: Performed By: #### L 100.0100, L500.4050, L300.3900 #### [facility] [address] [place], [address] IG% 0.500 Normal 0.0-0.9 [facility] Comment on above: Result Comment: IG% - Immature Granulocytes (promyelocytes, myelocytes and metamyelocytes) > 1% indicates that a LEFT SHIFT is Present. Performed By: #### L 100.0100, L500.4050, L300.3900 #### [facility] [address] [place], [address] Lymphocytes/100 WBC (Bld) 14.6 % Low 19-41 [facility] Comment on above: Performed By: #### L 100.0100, L500.4050, L300.3900 #### [facility] [address] [place], [address] MCH (RBC) [Entitic mass] 21.1 pg Low 27.0-32.0 [facility] Comment on above: Performed By: #### L 100.0100, L500.4050, L300.3900 #### [facility] [address] [place], [address] MCHC (RBC) [Mass/Vol] 30.0 g/dL Low 32-36 [facility] Comment on above: Performed By: #### L 100.0100, L500.4050, L300.3900 #### [facility] [address] [place], [address] MCV (RBC) [Entitic vol] 70.4 fL Low 80-94 [facility] Comment on above: Performed By: #### L 100.0100, L500.4050, L300.3900 #### [facility] [address] [place], [address] Monocytes/100 WBC (Bld) 13.4 % High 0-10 [facility] Comment on above: Performed By: #### L 100.0100, L500.4050, L300.3900 #### [facility] [address] [place], [address] Neutrophils/100 WBC (Bld) 67.7 % Normal 47-70 [facility] Comment on above: Performed By: #### L 100.0100, L500.4050, L300.3900 #### [facility] [address] [place], [address] Nucleated RBC (Bld) [#/Vol] 0 10*3/uL Normal 0-5 [facility] Comment on above: Performed By: #### L 100.0100, L500.4050, L300.3900 #### [facility] [address] [place], [address] Platelet mean volume (Bld) [Entitic vol] 10.1 fL Normal 6.2-12.0 [facility] Comment on above: Performed By: #### L 100.0100, L500.4050, L300.3900 #### [facility] [address] [place], [address] Platelets (Bld) [#/Vol] 354 10*3/uL Normal 150-450 [facility] Comment on above: Performed By: #### L 100.0100, L500.4050, L300.3900 #### [facility] [address] [place], [address] RBC (Bld) [#/Vol] 4.26 10*6/uL Low 4.6-6.2 [facility] Comment on above: Performed By: #### L 100.0100, L500.4050, L300.3900 #### [facility] [address] [place], [address] RDW SD 45.3 fl High 35.1-43.9 [facility] Comment on above: Performed By: #### L 100.0100, L500.4050, L300.3900 #### [facility] [address] [place], [address] WBC (Bld) [#/Vol] 6.7 10*3/uL Normal 4.4-11.0 [facility] Comment on above: Performed By: #### L 100.0100, L500.4050, L300.3900 #### [facility] [address] [place], [address] Carbon dioxide, total [Moles /volume] in Central venous bloodOrdered By: Alexander Steiner on 11-28-2024 CO2 [Moles/Vol] 23.8 mmol/L 21.0-32.0 [facility] Chloride assayOrdered By: Emmett Steiner on 11-28-2024 Chloride [Moles/Vol] 108 mmol/L 98-[address] [facility] Comprehensive Metabolic Prof ilon 11-28-2024 Albumin [Mass/Vol] 4.0 g/dL Normal 3.4-4.8 [facility] Comment on above: Performed By: #### L 100.0100, L500.4050, L300.3900 #### [facility] [address] [place], [address] Albumin/Globulin [Mass ratio] 1.5 {ratio} Normal 0.9-2.4 [facility] Comment on above: Performed By: #### L 100.0100, L500.4050, L300.3900 #### [facility] [address] [place], [address] ALK PHOS 129 U/L Normal 40-129 [facility] Comment on above: Performed By: #### L 100.0100, L500.4050, L300.3900 #### [facility] [address] [place], [address] ALT [Catalytic activity/Vol] 7 U/L Normal <=46 [facility] Comment on above: Performed By: #### L 100.0100, L500.4050, L300.3900 #### [facility] [address] [place], [address] AST [Catalytic activity/Vol] 25 U/L Normal <=37 [facility] Comment on above: Performed By: #### L 100.0100, L500.4050, L300.3900 #### [facility] [address] [place], [address] Bilirubin [Mass/Vol] 0.43 mg/dL Normal 0.00-1.[address] [facility] Comment on above: Performed By: #### L 100.0100, L500.4050, L300.3900 #### [facility] [address] [place], [address] BUN/CRE 11.4 RATIO Normal 10-20 [facility] Comment on above: Performed By: #### L 100.0100, L500.4050, L300.3900 #### [facility] [address] [place], [address] Calcium [Mass/Vol] 9.4 mg/dL Normal 7.6-11.0 [facility] Comment on above: Performed By: #### L 100.0100, L500.4050, L300.3900 #### [facility] [address] [place], [address] Chloride [Moles/Vol] 108 mmol/L Normal 98-[address] [facility] Comment on above: Performed By: #### L 100.0100, L500.4050, L300.3900 #### [facility] [address] [place], [address] CO2 [Moles/Vol] 23.8 mmol/L Normal 21.0-32.0 [facility] Comment on above: Performed By: #### L 100.0100, L500.4050, L300.3900 #### [facility] [address] [place], [address] Creatinine [Mass/Vol] 0.70 mg/dL Normal 0.70-1.20 [facility] Comment on above: Performed By: #### L 100.0100, L500.4050, L300.3900 #### [facility] [address] [place], [address] GAP 9 Normal 5-15 [facility] Comment on above: Performed By: #### L 100.0100, L500.4050, L300.3900 #### [facility] [address] [place], [address] GFR/1.73 sq M.predicted among non-blacks MDRD (S/P/Bld) [Vol rate/Area] 92 mL/min/{1.73_m2} Normal >60 [facility] Comment on above: Result Comment: mL/m in/1.73m2 CKD-EPI Creatinine Equation (2020) Performed By: #### L 100.0100, L500.4050, L300.3900 #### [facility] [address] [place], [address] Globulin (S) [Mass/Vol] 2.7 g/dL Normal 2.2-4.2 [facility] Comment on above: Performed By: #### L 100.0100, L500.4050, L300.3900 #### [facility] [address] [place], [address] Glucose [Mass/Vol] 100 mg/dL High 70-99 [facility] Comment on above: Performed By: #### L 100.0100, L500.4050, L300.3900 #### [facility] [address] [place], [address] Potassium [Moles/Vol] 4.2 mmol/L Normal 3.3-5.1 [facility] Comment on above: Performed By: #### L 100.0100, L500.4050, L300.3900 #### [facility] [address] [place], [address] Sodium [Moles/Vol] 140 mmol/L Normal 133-145 [facility] Comment on above: Performed By: #### L 100.0100, L500.4050, L300.3900 #### [facility] [address] [place], [address] T PROT 6.6 g/dL Normal 5.9-8.4 [facility] Comment on above: Performed By: #### L 100.0100, L500.4050, L300.3900 #### [facility] [address] [place], [address] Urea nitrogen [Mass/Vol] 8 mg/dL Normal 4-19 [facility] Comment on above: Performed By: #### L 100.0100, L500.4050, L300.3900 #### [facility] [address] [place], [address] Eosinophil percentageOrdered By: Alexander Jatin on 11-28-2024 Eosinophils/100 WBC (Bld) 2.9 % 0-5 [facility] Erythrocyte distribution wid th ratioOrdered By: [facility] on 11-28-2024 Erythrocyte distribution width (RBC) [Ratio] 18.1 % High 11.6-14.6 [facility] Erythrocyte distribution wid th standard deviationOrdered By: [facility] on 11-28-2024 Erythrocyte distribution width (RBC) [Ratio] 45.3 fl High 35.1-43.9 [facility] Glomerular filtration rate ( GFR) estimation/1.73 sq m using serum, plasma, or whole bOrdered By: [facility] 11-28-[facility] GFR/1.73 sq M.predicted among non-blacks MDRD (S/P/Bld) [Vol rate/Area] 92 mL/min/{1.73_m2} >60 [facility] Comment on above: mL/min/1.73m2 CKD-EP I Creatinine Equation (2020) Hematocrit Auto (Bld) [Volum e fraction]Ordered By: Alexander Jatin 11-28-2024 Hematocrit (Bld) [Volume fraction] 30.0 % Low 40-54 [facility] Hemoglobin measurementOrdere d By: Alexander Jatin 11-28-2024 Hemoglobin (Bld) [Mass/Vol] 9.0 g/dL Low 13.0-16.5 [facility] Immature granulocytes/100 WB C Auto (Bld)Ordered By: Alexander Jatin 11-28-2024 Immature granulocytes/100 WBC (Bld) 0.500 % 0.0-0.9 [facility] Comment on above: IG% - Immature Granu locytes (promyelocytes, myelocytes and metamyelocytes) > 1% indicates that a LEFT SHIFT is Present. International normalized rat io (INR) calculationOrdered By: Alexander Steiner on 11-28-2024 INR Coag (Bld) [Relative time] 1.1 {INR} [facility] - Chemistry and C hemistry - challengeOrdered By: Alexander Steiner on 11-28-2024 AST [Catalytic activity/Vol] 25 U/L <38 [facility] MCV (mean corpuscular volume ) determinationOrdered By: Alexander Steiner on 11-28-2024 MCV (RBC) [Entitic vol] 70.4 fL Low 80-94 [facility] Mean corpuscular hemoglobin (MCH) determinationOrdered By: Alexander Steiner on 11-28-2024 MCH (RBC) [Entitic mass] 21.1 pg Low 27.0-32.0 [facility] Mean corpuscular hemoglobin concentration (MCHC) determinationOrdered By: Alexander Steiner on 11-28-2024 MCHC (RBC) [Mass/Vol] 30.0 g/dL Low 32-36 [facility] Mean platelet volume determi nationOrdered By: Alexander Steiner on 11-28-2024 Platelet mean volume (Bld) [Entitic vol] 10.1 fL 6.2-12.0 [facility] Monocyte percentageOrdered B y: Alexander Steiner on 11-28-2024 Monocytes/100 WBC (Bld) 13.4 % High 0-10 [facility] Neutrophil percentageOrdered By: Alexander Steiner on 11-28-2024 Neutrophils/100 WBC (Bld) 67.7 % 47-70 [facility] Nucleated red blood cell per centageOrdered By: Alexander Steiner on 11-28-2024 Nucleated RBC/100 WBC (Bld) [Ratio] 0 % 0-5 [facility] Platelet countOrdered By: Emmett Steiner on 11-28-2024 Platelets (Bld) [#/Vol] 354 10*3/uL 150-450 [facility] Potassium measurement (mass/ volume)Ordered By: Alexander Steiner on 11-28-2024 Potassium (Unsp spec) [Mass/Vol] 4.2 mmol/L 3.3-5.1 [facility] Prothrombin Time w/INRon INR Coag (PPP) [Relative time] 1.1 {INR} Normal [facility] Comment on above: Performed By: #### L 100.0100, L500.4050, L300.3900 #### [facility] [address] [place], [address] PT Coag (PPP) [Time] 14.0 s Normal 11.7-14.[address] [facility] Comment on above: Performed By: #### L 100.0100, L500.4050, L300.3900 #### [facility] [address] [place], [address] Prothrombin timeOrdered By: Alexander Steiner on 11-28-2024 PT Coag (PPP) [Time] 14.0 s 11.7-14.[address] [facility] RBC Auto (Bld) [#/Vol]Ordere d By: Alexander Steiner on 11-28-2024 RBC (Bld) [#/Vol] 4.26 10*6/uL Low 4.6-6.2 [facility] Serum creatinine measurement (mass/volume)Ordered By: Alexander Steiner on 11-28-2024 Creatinine [Mass/Vol] 0.70 mg/dL 0.70-1.20 [facility] Serum globulin measurementOr dered By: Alexanedr Steiner 11-28-2024 Globulin (S) [Mass/Vol] 2.7 g/dL 2.2-4.2 [facility] Serum glucose measurement (m ass/volume)Ordered By: Alexander Steiner 11-28-2024 Glucose [Mass/Vol] 100 mg/dL High 70-99 [facility] Serum or plasma alanine luna otransferase (ALT) measurementOrdered By: Alexander Steiner 11-28-2024 ALT [Catalytic activity/Vol] 7 U/L <47 [facility] Serum or plasma albumin maddie urement (mass/volume)Ordered By: Alexander Steiner on 11-28-2024 Albumin [Mass/Vol] 4.0 g/dL 3.4-4.8 [facility] Serum or plasma albumin/glob ulin mass ratioOrdered By: Alexander Steiner 11-28-2024 Albumin/Globulin [Mass ratio] 1.5 {ratio} 0.9-2.4 [facility] Serum or plasma alkaline cheryl sphatase measurementOrdered By: Alexander Steiner on 11-28-2024 ALP [Catalytic activity/Vol] 129 U/L 40-129 [facility] Serum or plasma calcium maddie urement (mass/volume)Ordered By: Alexander Steiner 11-28-2024 Calcium [Mass/Vol] 9.4 mg/dL 7.6-11.0 [facility] Serum or plasma urea nitroge n measurement (mass/volume)Ordered By: Alexander Packer11-28-2024 Urea nitrogen [Mass/Vol] 8 mg/dL 4-19 [facility] Sodium levelOrdered By: Alexander Packer11-28-2024 Sodium [Moles/Vol] 140 mmol/L 133-145 [facility] Total proteinOrdered By: Alexander Jatin11-28-2024 Protein [Mass/Vol] 6.6 g/dL 5.9-8.4 [facility] White blood cell (WBC) count Ordered By: Alexander Steiner 11-28-2024 WBC (Bld) [#/Vol] 6.7 10*3/uL 4.4-11.0 [facility] CNPNon 11-21-2024 CNPN Telephone ([employer]) MARGAUX SANDERSON ([id number]) 1940 M Date Time Provider Department 11/21/24 SAURAV MACHUCA During your visit today, we recorded the following information about you: Jennifer Mcadams 11/21/2024 12:06 PM Signed Daughter Leslie is calling to arrange another office visit with Dr Machuca prior to another procedure, patient is currently scheduled with PCP on 11/28/24 at 3:30, Daughter stating records are to be faxed to the office was not sure if we should arrange this appointment prior to records coming. Please advise Leena Adorno LPN 11/22/2024 1:11 PM Signed Called Leslie. Verified name and date of of patient. Patient will see Dr. Steiner on November 28, 2024 to get medical clearance for him to have section of colon removed by Dr. Machuca after the colonoscopy is completed. Fax number for General Surgery given to Leslie for Dr. Steiners office and aware of request for testing to be uploaded into [employer]. Appointment scheduled for . MILO Huang Amy M, MA 11/27/2024 3:08 PM Signed Received a call from patients daughter stating he has an appointment with Dr. Steiner tomorrow and they have not received any forms that need filled out for surgical clearance. Please send surgical clearance form to Dr. Steiner's office. Ely Hernández MA 11/28/2024 8:46 AM Signed Pre op medical clearance letter faxed to Dr. Steiner. [phone] FRANKY Villar Kimberly, LPN 11/29/2024 12:04 PM Signed Leslie called. Verified name and date of of patient. Patient has decided to have surgery done by Dr. Zuleyma Storm MD with [facility] General Surgery. They need the surgery that is recommended by Dr. Machuca, report of colonoscopy and images (Leslie will get a hold of medical records for imaging). No fax number available. Clinic number for : . MLIO Huang Kimberly, LPN 11/29/2024 4:14 PM Signed José Luis Pichardo3 hours ago (12:25 PM) JM patient will need to contact medical records Called Leslie. Verified name and date of of patient. Notified. MILO Huang Kimberly, LPN 12/02/2024 9:05 AM Signed Received pre-op clearance from Dr. Castillo but patient is being seen by Pablo for procedure. MILO Huang Amelia, LPN 12/02/2024 10:55 AM Signed Leslie Patient daughter called stating that she reached out to medical records and was told they are not able burn disc with photos. Please advise daughter on how to proceed. Ely Hernández MA 12/03/2024 2:30 PM Signed Printed from [employer], at front office representative for daughter to shrimp picker today. No video, only photos. Ely Hernández MA Allergies As of Date: 11/21/2024 (No Known Allergies) Date Reviewed: 11/21/2024 Reviewed by: Saurav Machuca MD - Fully Assessed Reason for Visit: Patient Question [4537] Prescriptions as of 12/03/2024 - atorvastatin (LIPITOR) 80 mg tablet Take 80 mg by mouth once daily. - levothyroxine (SYNTHROID) 112 mcg tablet Take 112 mcg by mouth once daily. - finasteride (PROSCAR) 5 mg tablet Take 5 mg by mouth once daily. - tamsulosin (FLOMAX) 0.4 mg Take 0.4 mg by mouth once daily. - roflumilast (DALIRESP) 500 mcg tab Take 500 mcg by mouth once daily. - albuterol (PROVENTIL) 2.5 mg/0.5 mL nebulizar solution Use 2.5 mg via nebulizer every 6 hours as needed. - ipratropium-albuterol (DUONEB) 0.5 mg-3 mg(2.5 mg base)/3 mL nebu Inhale 3 mL as instructed. - terazosin (HYTRIN) 1 mg capsule Take 1 mg by mouth daily at bedtime. - aspirin, enteric coated (ASPIRIN, ENTERIC COATED) 81 mg EC tablet Take 81 mg by mouth once daily. - Omeprazole (PRILOSEC) 40 mg capsule Take 1 capsule by mouth 1-2 times daily. 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] 08/22/2012 Gastritis [K29.70] 08/22/2012 Personal history of colonic polyps [Z86.0100] 08/22/2012 Colon polyps [K63.5] 09/02/2013 Essential hypertension [I10] 07/16/2020 Dyspnea on exertion [R06.09] 07/16/2020 Chest pain [R07.9] 07/16/2020 Encounter Status:Closed by LEENA BOWLES on 11/29/24 [facility] CNOVon 11-20-2024 CNOV Office Visit (GENSWS ) MARGAUX SANDERSON ([id number]) 1940 M Date Time Provider Department 11/20/24 11:45 AM SAURAV MACHUCA GENSWS During your visit today, we recorded the following information about you: Saurav Machuca MD 11/20/2024 12:31 PM Signed We discussed your recent colonoscopy findings and the next steps in your care: - Colon Polyps and Matute's Esophagus: - Your colonoscopy revealed multiple polyps, including a large polyp in the right colon that spans about one-third of the circumference of the colon. 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 - Other polyps were identified as tubular adenomas, which are precancerous but less advanced than the tubulovillous adenoma. These will also need to be removed. - Your biopsy also showed Matute's esophagus. We will plan for a follow-up upper endoscopy in 3 years to monitor this condition. - Plan for Surgery and Additional Colonoscopy: - I recommend a two-step approach: 1. A repeat colonoscopy at [facility] to remove as many remaining polyps as possible and to ensure a better bowel preparation. This will also allow me to negro the area for surgery. 2. Surgery the following day to remove the section of the colon containing the tubulovillous adenoma. I will perform this laparoscopically and plan to reconnect your colon during the same procedure. No colostomy is expected. - You will need to stay in the hospital for 3-4 days after surgery for recovery. - Bowel Preparation: - For the repeat colonoscopy, you will complete a split-dose bowel prep: - Drink half of the bowel prep solution two days before the procedure and the other half the day before. - This method should improve the quality of the preparation and allow for a more thorough examination. - Pre-Surgical Clearance: - Please follow up with your primary care doctor, Dr. Steiner, to ensure you are medically cleared for surgery. I will send him a note about the plan and will need copies of your recent heart tests and other medical records for my anesthesiologist. - Post-Surgery Recovery: - After surgery, you should be able to resume normal activities, including horseback riding, once you have healed. The intestinal incisions heal quickly, and the laparoscopic approach minimizes recovery time. - Next Steps: - I will schedule the repeat colonoscopy and surgery at [facility]. You will receive instructions on the exact dates and times. - If you notice a metal clip in your stool, it is from the previous procedure and is normal. Please let us know if you have any questions or concerns as we move forward with this plan. Saurav Machuca MD 11/21/2024 6:35 AM Signed FOLLOW UP VISIT - ENDOSCOPY NAME: Margaux James [facility] NO.: [id number] DATE OF SERVICE: 11/20/2024 : 1940 REFERRING PHYSICIAN: Alexander Steiner MD Margaux is a patient I am following for recent endoscopy with significant findings. Margaux is a 84 year old male referred for endoscopy. 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 Margaux denies abdominal pain. Margaux denies diarrhea. Margaux notes constipation. -last 3 weeks harder to pass the stool -increased straining Margaux denies a change in bowel habits. Margaux notes melena. -+iFOBT last week -doesn't notice any blood Margaux denies bright red blood per rectum. Margaux notes hemorrhoids. Margaux notes family history of colon issues. Sister with colon cancer Margaux denies heartburn. -takes omeprazole daily with good relief Margaux denies dysphagia. Margaux denies a history of ulcers/ peptic ulcer disease. 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 He follows with [facility]. He completed radiation in 2022. Disease is stable. He has a hx of COPD- uses duoneb daily, but no other inhalers. Is able to walk up steps AND complete activity with no issues Margaux follows with [facility]. Last OV 08/2024. He had a stress test in 2023 EF was 57% AND there was no evidence of ischemia. He CP, SOB, dizziness, palpitations, syncope, edema, recent hospitalizations Margaux has undergone prior endoscopy. Last EGD AND colonoscopy was 01/[address] Machuca at [facility]. Sedation: MAC T he entire duodenum appeared unremarkable. The antral region appeared normal. Given his previous history of Matute's esophagitis and gastritis, biopsies were taken in the antral region. The remainder of the stomach appeared unremarkable. The fundic portion had no true hiatal hernia, but seemed to have a lax lower esophageal sphincter. There was a very small hiatal hernia. The stomach was aspirated of liquid. As the scope was withdrawn, t (more content not included)... Normal [facility] [id number] 11-15-2024 [id number] HNO ID: [id number] Author: NIA CELESTIN RN Service: ? Author Type: Registered Nurse Type: [id number] Filed: 11/15/2024 09:44 Note Text: The patient received a copy of Colonoscopy and EGD discharge instructions that contain information for how to contact the physician who performed the procedure and when to seek medical care. Normal [facility] Colonoscopyon 11-15-2024 Colonoscopy [place] Gastrointestinal Endoscopy Patient Name: Margaux Sanderson Procedure Date: 11/15/2024 8:06 AM Date of : 1940 Admit Type: Outpatient Age: 84 Gender: Male Note Status: Finalized Procedure: Colonoscopy Indications: Iron deficiency anemia Providers: Saurav Machuca MD Patient Profile: This is an 84 year old male. Refer to note in patient chart for documentation of history and physical. Last Colonoscopy: more than 10 years ago. Referring Physician: Valerie Gaitan (Referring ) Medicines: See the other procedure note for documentation of the administered medications Complications: No immediate complications. Requesting Provider: Procedure: Pre-Anesthesia Assessment: - Prior to the procedure, a History and Physical was performed, and patient medications and allergies were reviewed. The patient is competent. The risks and benefits of the procedure and the sedation options and risks were discussed with the patient. All questions were answered and informed consent was obtained. Patient identification and proposed procedure were verified by the physician and the nurse in the procedure room. Mental Status Examination: normal. Airway Examination: normal oropharyngeal airway and neck mobility. Respiratory Examination: clear to auscultation. CV Examination: normal. Prophylactic Antibiotics: The patient does not require prophylactic antibiotics. Prior Anticoagulants: The patient has taken no anticoagulant or antiplatelet agents. ASA Grade Assessment: III - A patient with severe systemic disease. After reviewing the risks and benefits, the patient was deemed in satisfactory condition to undergo the procedure. The anesthesia plan was to use moderate sedation / analgesia (conscious sedation). Immediately prior to administration of medications, the patient was re-assessed for adequacy to receive sedatives. The heart rate, respiratory rate, oxygen saturations, blood pressure, adequacy of pulmonary ventilation, and response to care were monitored throughout the procedure. The physical status of the patient was re-assessed after the procedure. After I obtained informed consent, the scope was passed under direct vision. Throughout the procedure, the patient's blood pressure, pulse, and oxygen saturations were monitored continuously. The Colonoscope was introduced through the anus and advanced to the cecum, identified by the appendiceal orifice, ileocecal valve and palpation. The colonoscopy was performed without difficulty. The patient tolerated the procedure. The quality of the bowel preparation was poor. The ileocecal valve, appendiceal orifice, and rectum were photographed. Moderate Sedation: Moderate (conscious) sedation was administered by the nurse and supervised by the endoscopist. The patient's oxygen saturation, heart rate, blood pressure and response to care were monitored. Total physician intraservice time was 47 minutes. The administration of moderate sedation was initiated at 08:22. Findings: The perianal and digital rectal examinations were normal. Many sessile polyps were found in the cecum. The polyps were 4 to 27 mm in size. Biopsies were taken with a cold forceps for histology. A 10 mm polyp was found in the ascending colon. The polyp was sessile. The polyp was removed with a cold snare. Resection and retrieval were complete. An 11 mm polyp was found in the descending colon. The polyp was sessile. The polyp was removed with a cold snare. Resection was complete, but the polyp tissue was not retrieved. To prevent bleeding after the polypectomy, one hemostatic clip was successfully placed. There was no bleeding at the end of the procedure. Many medium-mouthed diverticula were found in the left colon. The exam was otherwise without abnormality on direct and retroflexion views. Impression: - Preparation of the colon was poor. - Many 4 to 27 mm polyps in the cecum. Biopsied. - One 10 mm polyp in the ascending colon, removed with a cold snare. Resected and retrieved. - One 11 mm polyp in the descending colon, removed with a cold snare. Complete resection. Polyp tissue not retrieved. Clip was placed. - Diverticulosis in the left colon. - The examination was otherwise normal on direct and retroflexion views. Recommendation: - Discharge patient to home. - Resume previous diet. - Continue present medications. - Repeat colonoscopy in 2 months because the bowel preparation was poor. - Return to my office in 1 week. - Patient has a contact number available for emergencies. The signs and symptoms of potential delayed complications were discussed with the patient. Return to normal activities tomorrow. Written discharge instructions were provided to the patient. Procedure Code(s): --- Professional --- 29890, Colonoscopy, flexible; with removal of tumor(s), polyp(s), or other lesion( (more content not included)... Normal [facility] EGD Study observation Alexandrea pena 11-15-2024 [facility] Gastrointestinal Endoscopy Patient Name: Margaux Sanderson Procedure Date: 11/15/2024 8:08 AM Date of : 1940 Admit Type: Outpatient Age: 84 Gender: Male Note Status: Finalized Procedure: Upper GI endoscopy Indications: Iron deficiency anemia Providers: Saurav Machuca MD Patient Profile: This is an 84 year old male. Refer to note in patient chart for documentation of history and physical. Referring Physician: Valerie Gaitan (Referring ) Medicines: Midazolam 8 mg IV, Fentanyl 100 micrograms IV, Diphenhydramine 50 mg IV Complications: No immediate complications. Requesting Provider: Procedure: Pre-Anesthesia Assessment: - Prior to the procedure, a History and Physical was performed, and patient medications and allergies were reviewed. The patient is competent. The risks and benefits of the procedure and the sedation options and risks were discussed with the patient. All questions were answered and informed consent was obtained. Patient identification and proposed procedure were verified by the physician and the nurse in the procedure room. Mental Status Examination: alert and oriented. Respiratory Examination: clear to auscultation. CV Examination: normal. Prophylactic Antibiotics: The patient does not require prophylactic antibiotics. Prior Anticoagulants: The patient has taken no anticoagulant or antiplatelet agents. ASA Grade Assessment: III - A patient with severe systemic disease. After reviewing the risks and benefits, the patient was deemed in satisfactory condition to undergo the procedure. The anesthesia plan was to use moderate sedation / analgesia (conscious sedation). Immediately prior to administration of medications, the patient was re-assessed for adequacy to receive sedatives. The heart rate, respiratory rate, oxygen saturations, blood pressure, adequacy of pulmonary ventilation, and response to care were monitored throughout the procedure. The physical status of the patient was re-assessed after the procedure. After obtaining informed consent, the endoscope was passed under direct vision. Throughout the procedure, the patient's blood pressure, pulse, and oxygen saturations were monitored continuously. The Endoscope was introduced through the mouth, and advanced to the jejunum. The upper GI endoscopy was accomplished without difficulty. The patient tolerated the procedure well. Moderate Sedation: Moderate (conscious) sedation was personally administered by the endoscopist. The following parameters were monitored: oxygen saturation, heart rate, blood pressure, and response to care. Total physician intraservice time was 47 minutes. The administration of moderate sedation was initiated at 08:22. Findings: The examined jejunum was normal. The examined duodenum was normal. Scattered mild inflammation characterized by congestion (edema), erythema and friability was found in the stomach. Biopsies were taken with a cold forceps for histology. Mild esophagitis with no bleeding was found in the lower third of the esophagus. Biopsies were taken with a cold forceps for histology. Impression: - Normal examined jejunum. - Normal examined duodenum. - Gastritis, characterized by congestion (edema), erythema and friability. Biopsied. - Mild reflux esophagitis with no bleeding. Rule out Matute's esophagus. Biopsied. Recommendation: - Discharge patient to home. - Resume previous diet. - Continue present medications. - Return to my office in 1 week. Procedure Code(s): --- Professional --- 47347, Esophagogastroduodenoscopy, flexible, transoral; with biopsy, single or multiple G0500, Moder (more content not included)... PROVATION [facility] Flexible sigmoidoscopy study on 11-15-2024 [place] [facility] Gastrointestinal Endoscopy Patient Name: Margaux Sanderson Procedure Date: 11/15/2024 8:06 AM Date of : 1940 Admit Type: Outpatient Age: 84 Gender: Male Note Status: Finalized Procedure: Colonoscopy Indications: Iron deficiency anemia Providers: Saurav Machuca MD Patient Profile: This is an 84 year old male. Refer to note in patient chart for documentation of history and physical. Last Colonoscopy: more than 10 years ago. Referring Physician: Valerie Gaitan (Referring MD) Medicines: See the other procedure note for documentation of the administered medications Complications: No immediate complications. Requesting Provider: Procedure: Pre-Anesthesia Assessment: - Prior to the procedure, a History and Physical was performed, and patient medications and allergies were reviewed. The patient is competent. The risks and benefits of the procedure and the sedation options and risks were discussed with the patient. All questions were answered and informed consent was obtained. Patient identification and proposed procedure were verified by the physician and the nurse in the procedure room. Mental Status Examination: normal. Airway Examination: normal oropharyngeal airway and neck mobility. Respiratory Examination: clear to auscultation. CV Examination: normal. Prophylactic Antibiotics: The patient does not require prophylactic antibiotics. Prior Anticoagulants: The patient has taken no anticoagulant or antiplatelet agents. ASA Grade Assessment: III - A patient with severe systemic disease. After reviewing the risks and benefits, the patient was deemed in satisfactory condition to undergo the procedure. The anesthesia plan was to use moderate sedation / analgesia (conscious sedation). Immediately prior to administration of medications, the patient was re-assessed for adequacy to receive sedatives. The heart rate, respiratory rate, oxygen saturations, blood pressure, adequacy of pulmonary ventilation, and response to care were monitored throughout the procedure. The physical status of the patient was re-assessed after the procedure. After I obtained informed consent, the scope was passed under direct vision. Throughout the procedure, the patient's blood pressure, pulse, and oxygen saturations were monitored continuously. The Colonoscope was introduced through the anus and advanced to the cecum, identified by the appendiceal orifice, ileocecal valve and palpation. The colonoscopy was performed without difficulty. The patient tolerated the procedure. The quality of the bowel preparation was poor. The ileocecal valve, appendiceal orifice, and rectum were photographed. Moderate Sedation: Moderate (conscious) sedation was administered by the nurse and supervised by the endoscopist. The patient's oxygen saturation, heart rate, blood pressure and response to care were monitored. Total physician intraservice time was 47 minutes. The administration of moderate sedation was initiated at 08:22. Findings: The perianal and digital rectal examinations were normal. Many sessile polyps were found in the cecum. The polyps were 4 to 27 mm in size. Biopsies were taken with a cold forceps for histology. A 10 mm polyp was found in the ascending colon. The polyp was sessile. The polyp was removed with a cold snare. Resection and retrieval were complete. An 11 mm polyp was found in the descending colon. The polyp was sessile. The polyp was removed with a cold snare. Resection was complete, but the polyp tissue was not retrieved. To prevent bleeding after the polypectomy, one hemostatic clip was successfully placed. There was no bleeding at the end of the procedure. Many medium-mouthed diverticula were found in the left colon. The exam was otherwise wi (more content not included)... [facility] HISTORY PHYSICALon HISTORY PHYSICAL HNO ID: [id number] Author: SAURAV MACHUCA MD Service: General Surgery Author Type: Physician Type: H&P Filed: 11/15/2024 07:08 Note Text: HISTORY AND PHYSICAL Margaux Sanderson : 1940 REFERRING PHYSICIAN: No referring provider defined for this encounter. CHIEF COMPLAINT: Patient presents with: Consult: EGD AND Colonoscopy HPI: Margaux is a 84 year old male referred for endoscopy. 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 Margaux denies abdominal pain. Margaux denies diarrhea. Margaux notes constipation. -last 3 weeks harder to pass the stool -increased straining Margaux denies a change in bowel habits. Margaux notes melena. -+iFOBT last week -doesn't notice any blood Margaux denies bright red blood per rectum. Margaux notes hemorrhoids. Margaux notes family history of colon issues. Sister with colon cancer Margaux denies heartburn. -takes omeprazole daily with good relief Margaux denies dysphagia. Margaux denies a history of ulcers/ peptic ulcer disease. 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 He follows with [facility]. He completed radiation in 2022. Disease is stable. He has a hx of COPD- uses duoneb daily, but no other inhalers. Is able to walk up steps AND complete activity with no issues Margaux follows with [facility]. Last OV 08/2024. He had a stress test in 2023 EF was 57% AND there was no evidence of ischemia. He CP, SOB, dizziness, palpitations, syncope, edema, recent hospitalizations Margaux has undergone prior endoscopy. Last EGD AND colonoscopy was 01/[address] Machuca at [facility]. Sedation: MAC T he entire duodenum appeared unremarkable. The antral region appeared normal. Given his previous history of Matute's esophagitis and gastritis, biopsies were taken in the antral region. The remainder of the stomach appeared unremarkable. The fundic portion had no true hiatal hernia, but seemed to have a lax lower esophageal sphincter. There was a very small hiatal hernia. The stomach was aspirated of liquid. As the scope was withdrawn, there was an irregular Z-line with a couple areas of flamed erosion. This was consistent with Matute's esophagitis. Biopsies were taken in all 4 quadrants for the short segment. As the scope was withdrawn, the remainder of the esophagus was unremarkable. COLONOSCOPY Digital rectal exam revealed no palpable abnormalities. As the scope was withdrawn, there was an area which appeared to be consistent with scarring from a previous polypectomy site and an area that did not truly look polypoid, but looked slightly erythematous compared to the other site. Narrow band imaging did not truly Demonstrate to be adenomatous, but the area of concern had 2 biopsies performed with biopsy forceps and then APC Argon beam coagulation was performed to obliterate that area. The remainder of the colon, cecum, ascending colon, hepatic flexure, transverse colon, splenic flexure all appeared unremarkable. Descending and sigmoid had few small diverticula. The scope was retroflexed in the rectum and that was normal. MICROSCOPIC DIAGNOSIS A. Gastric antrum, biopsy: Gastritis. B. GE junction, biopsy: Squamous mucosa with focal changes consistent with reflux. Junctional mucosa with chronic and mild acute inflammation. No evidence of dysplasia. C. Cecum, biopsy: Fragments of tubular adenoma. CURRENT MEDICATIONS Current Outpatient Medications Medication Sig atorvastatin (LIPITOR) 80 mg tablet Take 80 mg by mouth once daily. levothyroxine (SYNTHROID) 112 mcg tablet Take 112 mcg by mouth once daily. finasteride (PROSCAR) 5 mg tablet Take 5 mg by mouth once daily. tamsulosin (FLOMAX) 0.4 mg Take 0.4 mg by mouth once daily. roflumilast (DALIRESP) 500 mcg tab Take 500 mcg by mouth once daily. albuterol (PROVENTIL) 2.5 mg/0.5 mL nebulizar solution Use 2.5 mg via nebulizer every 6 hours as needed. ipratropium-albuterol (DUONEB) 0.5 mg-3 mg(2.5 mg base)/3 mL nebu Inhale 3 mL as instructed. terazosin (HYTRIN) 1 mg capsule Take 1 mg by mouth daily at bedtime. aspirin, enteric coated (ASPIRIN, ENTERIC COATED) 81 mg EC tablet Take 81 mg by mouth once daily. Omeprazole (PRILOSEC) 40 mg capsule Take 1 capsule by mouth 1-2 times daily. peg 3350-Electrolytes (GOLYTELY) 236-22.74-6.74 -5.86 gram suspension Take 4,000 mL by mouth one time only for 1 dose. Refer to printed prep instructions from your provider. No current facility-administered medications for this visit. ALLERGIES: Patient has no allergy information on record. 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 Normal [facility] No Panel Informationon 11-15 Radiology Study observation (narrative) [facility] Pathology biopsy report Arie (Tiss)on 11-15-2024 AP DISCLAIMER Normal [facility] Comment on above: Order Comment: Speci men Type: TISSUE SPECIMEN Ordering Facility: [facility] Address: [address] [place] [address] Result Comment: Walter olsen Developed Test (LDT) Disclaimer: Performance characteristics of immunohistochemical, immunofluorescent, and chromogenic in-situ hybridization tests have been determined by the performing laboratory within the [facility] Department of Pathology and Laboratory Medicine ([facility], [facility], [facility], [facility], [facility], [facility], or [facility]) in a manner consistent with CLIA requirements. One or more of these tests may not have been cleared or approved by the FDA. The [facility] Department of Pathology and Laboratory Medicine is regulated under CLIA as qualified to perform high-complexity testing. These tests are used for clinical purposes. These should not be regarded as investigational or for research. Positive and negative controls stain appropriately. Performed By: #### 6 6121-5 #### [facility] CLIA [id number] [address] [place] [address] [place] [facility] CLIA [id number] [address] [place] [address] [place] CASE REPORT Normal [facility] Comment on above: Order Comment: Sebastian pinon Type: TISSUE SPECIMEN Ordering Facility: [facility] Address: [address] [place] [address] Result Comment: Surg ica Pathology Report Case: [id number] Authorizing Provider: Saurav Machuca MD Collected: 11/15/2024 08:26 AM Ordering Location: Ambulatory Surgery Received: 11/15/2024 11:19 AM Pathologist: Young Diaz MD Specimens: A) - Stomach, Antrum, Biopsy, antral bx for h/h B) - Esophagus, Distal, Biopsy, r/o Barretts C) - Colon, Cecum, Polyp, Fungating polyp bx D) - Colon, Cecum, Polyp, #2 Cecal polyp bx E) - Colon, Hepatic Flexure, Polyp Performed By: #### 6 6121-5 #### [facility] CLIA [id number] [address] [place] [address] [place] [facility] CLIA [id number] [address] [place] [address] [place] DIAGNOSIS COMMENT Normal [facility] Comment on above: Order Comment: Sebastian pinon Type: TISSUE SPECIMEN Ordering Facility: [facility] Address: [address] [place] [address] Result Comment: A. N o Helicobacter pylori organisms are identified. B. ACG guidelines require an endoscopic abnormality that extends at least 1 cm proximal to the gastroesophageal junction in addition to a histologic finding of intestinal metaplasia in order to establish a diagnosis of Matute's esophagus. Correlation with endoscopic findings is recommended. Performed By: #### 6 6121-5 #### [facility] CLIA [id number] [address] [place] [address] OF [facility] CLIA [id number] [address] [place] [address] OF [facility] FINAL DIAGNOSIS Normal [facility] Comment on above: Order Comment: Speci men Type: TISSUE SPECIMEN Ordering Facility: [facility] Address: [address] [place] [address] Result Comment: A. S tomach, biopsy: - Gastric oxyntic-type mucosa with no diagnostic abnormality. B. Distal esophagus, biopsy: - Gastric cardiofundic-type mucosa with chronic active inflammation and focal intestinal metaplasia, negative for dysplasia (see comment). C. Cecal polyp, biopsy: - Fragments of tubular adenoma. D. Cecal polyp #2, biopsy: - Fragments of tubulovillous adenoma. E. Hepatic flexure polyp, biopsy: - Fragments of tubular adenoma. JEL 11/19/2024 at 0915 EDT Performed By: #### 6 6121-5 #### [facility] CLIA [id number] [address] [place] [address] LAB CLIA [id number] [address] [place] [address] OF [facility] FINAL PERFORMING LAB Normal [facility] Comment on above: Order Comment: Speci men Type: TISSUE SPECIMEN Ordering Facility: [facility] Address: [address] [place] [address] Result Comment: Diag nostic interpretation performed at: [facility], [address] [place] [address] CLIA# [id number] See Supervisor: Young Diaz MD Performed By: #### 6 6121-5 #### [facility] CLIA [id number] [address] [place] [address] OF [facility] CLIA [id number] [address] [place] [address] [place] GROSS DESCRIPTION Normal [facility] Comment on above: Order Comment: Speci men Type: TISSUE SPECIMEN Ordering Facility: [facility] Address: [address] [place] [address] Result Comment: A. S tomach, Antrum, Biopsy Received in formalin is one piece of weber, soft tissue measuring 0.3 x 0.3 x 0.3 cm. Totally submitted in one cassette. B. Esophagus, Distal, Biopsy Received in formalin is one piece of weber, soft tissue measuring 0.4 x 0.3 x 0.2 cm. Totally submitted in one cassette. C. Colon, Cecum, Polyp Received in formalin are two pieces of weber, soft tissue aggregating to 0.7 x 0.3 x 0.2 cm. Totally submitted in one cassette. D. Colon, Cecum, Polyp Received in formalin are two pieces of weber, soft tissue aggregating to 0.4 x 0.2 x 0.1 cm. Totally submitted in one cassette. E. Colon, Hepatic Flexure, Polyp In formalin are multiple weber polypoid segments of tissue ranging in size from 1.2 x 0.5 x 0.4 cm to 0.4 x 0.3 x 0.2 cm. No stalks are present. The lines of resection are noted. The specimens are bisected and totally submitted in one cassette. November 15, 2024 4:41 PM Gross examination performed at [facility], [address] [place] [address] Performed By: #### 6 6121-5 #### [facility] CLIA [id number] [address] [place] [address] [place] [facility] CLIA [id number] [address] [place] [address] [place] Upper GI endoscopyon 025 Upper GI endoscopy [facility] Gastrointestinal Endoscopy Patient Name: Margaux Sanderson Procedure Date: 11/15/2024 8:08 AM Date of : 1940 Admit Type: Outpatient Age: 84 Gender: Male Note Status: Finalized Procedure: Upper GI endoscopy Indications: Iron deficiency anemia Providers: Saurav Machuca MD Patient Profile: This is an 84 year old male. Refer to note in patient chart for documentation of history and physical. Referring Physician: Valerie Gaitan (Referring MD) Medicines: Midazolam 8 mg IV, Fentanyl 100 micrograms IV, Diphenhydramine 50 mg IV Complications: No immediate complications. Requesting Provider: Procedure: Pre-Anesthesia Assessment: - Prior to the procedure, a History and Physical was performed, and patient medications and allergies were reviewed. The patient is competent. The risks and benefits of the procedure and the sedation options and risks were discussed with the patient. All questions were answered and informed consent was obtained. Patient identification and proposed procedure were verified by the physician and the nurse in the procedure room. Mental Status Examination: alert and oriented. Respiratory Examination: clear to auscultation. CV Examination: normal. Prophylactic Antibiotics: The patient does not require prophylactic antibiotics. Prior Anticoagulants: The patient has taken no anticoagulant or antiplatelet agents. ASA Grade Assessment: III - A patient with severe systemic disease. After reviewing the risks and benefits, the patient was deemed in satisfactory condition to undergo the procedure. The anesthesia plan was to use moderate sedation / analgesia (conscious sedation). Immediately prior to administration of medications, the patient was re-assessed for adequacy to receive sedatives. The heart rate, respiratory rate, oxygen saturations, blood pressure, adequacy of pulmonary ventilation, and response to care were monitored throughout the procedure. The physical status of the patient was re-assessed after the procedure. After obtaining informed consent, the endoscope was passed under direct vision. Throughout the procedure, the patient's blood pressure, pulse, and oxygen saturations were monitored continuously. The Endoscope was introduced through the mouth, and advanced to the jejunum. The upper GI endoscopy was accomplished without difficulty. The patient tolerated the procedure well. Moderate Sedation: Moderate (conscious) sedation was personally administered by the endoscopist. The following parameters were monitored: oxygen saturation, heart rate, blood pressure, and response to care. Total physician intraservice time was 47 minutes. The administration of moderate sedation was initiated at 08:22. Findings: The examined jejunum was normal. The examined duodenum was normal. Scattered mild inflammation characterized by congestion (edema), erythema and friability was found in the stomach. Biopsies were taken with a cold forceps for histology. Mild esophagitis with no bleeding was found in the lower third of the esophagus. Biopsies were taken with a cold forceps for histology. Impression: - Normal examined jejunum. - Normal examined duodenum. - Gastritis, characterized by congestion (edema), erythema and friability. Biopsied. - Mild reflux esophagitis with no bleeding. Rule out Matute's esophagus. Biopsied. Recommendation: - Discharge patient to home. - Resume previous diet. - Continue present medications. - Return to my office in 1 week. Procedure Code(s): --- Professional --- 05630, Esophagogastroduodenoscopy, flexible, transoral; with biopsy, single or multiple G0500, Moderate sedation services provided by the same physician or other qualified health animal care assistant performing a gastrointestinal endoscopic service that sedation supports, requiring the presence of an independent trained observer to assist in the monitoring of the patient's level of consciousness and physiological status; initial 15 minutes of intra-service time; patient age 5 years or older (additional time may be reported with 44006, as appropriate) 76212, Moderate sedation; each additional 15 minutes intraservice time 28505, Moderate sedation; each additional 15 minutes intraservice time CPT copyright 2020 [employer]. All rights reserved. The codes documented in this report are preliminary and upon smoke jumper supervisor review may be revised to meet current compliance requirements. Attending Participation: I was present and participated during the entire procedure, including non-pollack portions, and during the administration and monitoring of Moderate Sedation. Scope In: 8:25:49 AM Scope Out: 8:30:10 AM MD Saurav Miller MD 11/15/2024 9:14:28 AM This report has been signed electronically by Saurav Machuca MD Number of Addenda: 0 Note Initiated O (more content not included)... Normal [facility] XR ABDOMEN 1V SUPINEon 11-15 XR ABDOMEN 1V SUPINE * * *Final Report* * * DATE OF EXAM: Nov 15 2024 10:57AM WRX 5289 - XR ABDOMEN 1V SUPINE / PROCEDURE REASON: multiple diagnoses * * * * Physician Interpretation * * * * EXAMINATION: XR ABDOMEN 1V SUPINE CLINICAL HISTORY: Clip placement after colonoscopy Technique: XR ABDOMEN 1V SUPINE -- NOT APPLICABLE with 1 views on 1 images Comparison: None RESULT: Nonobstructed bowel gas pattern. Gas is visualized in small bowel and colon. There are clips in the right lower quadrant and left upper quadrant overlying the colon. No hepatomegaly or splenomegaly. Vascular calcifications are noted. IMPRESSION: There are surgical clips in the right lower quadrant and left upper quadrant Bridge Repairer: CORNELL Transcribe Date/Time: Nov 22 2024 4:14P Dictated by : LYLY BOYLE MD This examination was interpreted and the report reviewed and electronically signed by: LYLY BOYLE MD on Nov 22 2024 4:15PM EST [id number] Normal [facility] Radiation Oncology Visiton 0 10-31-[address] [facility] [address] [facility] [place] [address] OFFICE VISIT Date of Service: 10/31/24 1303 MR#: [id number] Acct: [id number] Name: MARGAUX SANDERSON Rep #: [id number] : 1940 From: Alejandro Machado DO Age/Sex: 84/M [place] [facility] [place]: Signed Intake Vital Signs 07/08/24 11:09 08/29/24 07:21 10/21/24 10:12 10/31/24 13:05 Height 5 ft 7 in 5 ft 7 in 5 ft 7 in 5 ft 7 in Weight: 116 lb 8 oz BMI 18.2 BP 172/69 H Blood Pressure Location Rt brachial Position Sitting Respiration 14 Pulse 74 Pulse Source Monitor Temp 97.4 F L Temperature Source Temporal Artery Pulse Oximetry (%) 97 Oxygen Delivery Method room air Intake Visit Reasons: 4 MONTH LUNG, REVIEW CT Is patient in pain?: No Allergies No Known Allergies Allergy (Verified 10/31/24 13:05) Medications ???Medication ???Instructions ???Recorded ???Confirmed ???Type aspirin 81 mg tablet,delayed 81 mg PO DAILY 01/27/16 10/31/24 H istory release terazosin 1 mg capsule 1 mg PO DAILY 04/18/19 10/31/24 Hi story omeprazole 40 mg capsule,delayed 40 mg PO DAILY 05/25/19 10/31/24 H istory release tamsulosin 0.4 mg capsule 0.4 mg PO DAILY 04/20/21 10/31/24 History budesonide 0.25 mg/2 mL suspension 0.25 mg inhalation BID 10/20/21 10/31/24 History for nebulization multivitamin 1 tab PO DAILY 12/12/22 10/31/24 H istory finasteride 5 mg tablet 5 mg PO DAILY 11/15/23 10/31/24 Hi story levothyroxine 112 mcg tablet 112 mcg PO QDAY 11/28/23 10/31/24 History atorvastatin 80 mg tablet (Lipitor) 80 mg PO QHS #30 tabs 09/24/24 10/31/24 Rx roflumilast 500 mcg tablet 500 mcg PO QDAY 09/24/24 10/31/24 History (Daliresp) Have you fallen in the past year?: [...] PO DAILY 05/25/19 10/05/23 H istory release tamsulosin 0.4 mg capsule 0.4 mg PO DAILY 04/20/21 Unknown H istory budesonide 0.25 mg/2 mL suspension 0.25 mg inhalation BID 10/20/21 10/05/23 History for nebulization multivitamin 1 tab PO DAILY 12/12/22 Unknown Hi story finasteride 5 mg tablet 5 mg PO DAILY 08/21/24 Unknown His tory levothyroxine 112 mcg tablet 112 mcg PO QDAY 11/28/23 Unknown H istory atorvastatin 80 mg tablet (Lipitor) 80 mg PO QHS #30 tabs 09/24/24 Unknown Rx roflumilast 500 mcg tablet 500 mcg PO QDAY 09/24/24 Unknown H istory (Daliresp) Allergy/AdvReac Type Severity Reaction Status Date / Time No Known Allergies Allergy Verified 10/31/24 13:05 Family History Father Diabetes Hypertension CVA (cerebral vascular accident) Mother Thyroid disorder Arthritis Surgical History History of thyroidectomy, total ( 10/2020) Hx of lithotripsy History of needle biopsy (09/16/20) History of colonoscopy with polypectomy History of esophagogastroduodenoscopy History of arthroscopy of knee History of cataract extraction Social History Smoking Status: Former smoker quit date: 03/27/12 pack-years: 50 how long ago did patient quit smoking: quit 12-14 years ago alcohol intake: never substance use type: does not use what type of physical activity do you participate in: none additional social history: pt denies vaping, denies marijuana use, denies edibles, denies alcohol use, uses baby aspirin daily uses ibuprofen (more content not included)... Normal [facility] Chest WITH Contraston 2024 Chest WITH Contrast [facility] [address] [place] [id number] Chest WITH Contrast MR#: [id number] Acct: [id number] Name: MARGAUX SANDERSON Rep #: [id number] : 1940 M 84 From: Piyush hodge MD PCP: Dr. Alexander Steiner MD Status: REG CLI Study: Chest WITH Contrast Date of Exam: 10/29/24 Exam# [id number] Ordering Dr: Alejandro Machado DO PROCEDURE: CHEST WITH CONTRAST 10/29/2024 REASON FOR EXAM: FOLLOW UP TREATED LUNG CANCER TECHNIQUE: CHEST WITH CONTRAST Coronal and Sagittal reconstruction series were provided. CONTRAST: Isovue-300 VOLUME: 100 mL One or more dose reduction techniques were used (e.g., Automated exposure control, adjustment of the mA and/or kV according to patient size, use of iterative reconstruction technique). RADIATION DOSE SUMMARY: CTDlvol: 9.15 mGy DLP: 213.68 mGycm COMPARISON: Prior study dated June 27, 2024. FINDINGS: Hardware: None Lymph nodes: No suspicious hilar or mediastinal lymphadenopathy. Heart and Vasculature: The heart is nonenlarged. Coronary artery calcification. Lungs and Airways: Hyperinflation. Emphysematous changes. Stable 1 cm x 1.3 cm nodule in the medial apical segment of the right upper lobe with surrounding scarring. Pleura: No pleural effusion. Upper Abdomen: Unremarkable. Bones: Degenerative changes of the thoracic spine. CT/Chest WITH Contrast IMPRESSION: Coronary artery calcification (CAC) is is present Stable examination. Reading Location: [id number] CC: Dr. Alejandro Machado DO; Dr. Alexander Steiner MD Bridge Repairer: Signed [facility]20[facility] MARGAUX SANDERSON ([id number]) 1940 M Date Time Provider Department 10/15/24 VALERIE GAITAN [facility] During your visit today, we recorded the following information about you: Debbie Brown 10/15/2024 8:22 AM Signed Patient daughter called and had her father drink the Golytley yesterday because she thought the colonoscopy was on 10/15/24. Please send another Golytley to the pharmacy in [place] for procedure on 11/15/24. Valerie Gaitan APRN.[facility] 10/18/2024 10:49 AM Signed Golytely sent to [facility] in [place]. Allergies As of Date: 10/15/2024 (Not on File) Date Reviewed: 09/30/2024 Reviewed by: Molly Austin RN - Fully Assessed Reason for Visit: Orders [681] Order(s):Order #: [id number] Prescriptions as of 10/18/2024 - peg 3350-Electrolytes (GOLYTELY) 236-22.74-6.74 -5.86 gram suspension Take 4,000 mL by mouth one time only for 1 dose. - atorvastatin (LIPITOR) 80 mg tablet Take 80 mg by mouth once daily. - levothyroxine (SYNTHROID) 112 mcg tablet Take 112 mcg by mouth once daily. - finasteride (PROSCAR) 5 mg tablet Take 5 mg by mouth once daily. - tamsulosin (FLOMAX) 0.4 mg Take 0.4 mg by mouth once daily. - roflumilast (DALIRESP) 500 mcg tab Take 500 mcg by mouth once daily. - albuterol (PROVENTIL) 2.5 mg/0.5 mL nebulizar solution Use 2.5 mg via nebulizer every 6 hours as needed. - ipratropium-albuterol (DUONEB) 0.5 mg-3 mg(2.5 mg base)/3 mL nebu Inhale 3 mL as instructed. - terazosin (HYTRIN) 1 mg capsule Take 1 mg by mouth daily at bedtime. - aspirin, enteric coated (ASPIRIN, ENTERIC COATED) 81 mg EC tablet Take 81 mg by mouth once daily. - Omeprazole (PRILOSEC) 40 mg capsule Take 1 capsule by mouth 1-2 times daily. 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 Encounter Status:Closed by VALERIE GAITAN on 10/18/24 Normal [facility] Abdomen/Pelvis WITH Contrast on 10-02-2024 Abdomen/Pelvis WITH Contrast [facility] Imaging Services [address] [place] [address] Abdomen/Pelvis WITH Contrast MR#: [id number] Acct: [id number] Name: MARGAUX SANDERSON Rep #: [id number] : 1940 M 84 From: Piyush hodge MD PCP: Dr. Alexander Steiner MD Status: REG CLI Study: Abdomen/Pelvis WITH Contrast Date of Exam: 12/19 Exam# [id number] Ordering Dr: Alexander Steiner MD PROCEDURE: ABDOMEN/PELVIS WITH CONTRAST 10/02/2024 REASON FOR EXAM: WEIGHT LOSS Blood in the stool. History of lung cancer. TECHNIQUE: ABDOMEN/PELVIS WITH CONTRAST Coronal and Sagittal reconstruction series were provided. CONTRAST: Isovue 3 7 VOLUME: 75 mL One or more dose reduction techniques were used (e.g., Automated exposure control, adjustment of the mA and/or kV according to patient size, use of iterative reconstruction technique. RADIATION DOSE SUMMARY: CTDlvol: 8.6 mGy DLP: 242.09 mGycm COMPARISON: Prior study dated October 03, 2023 FINDINGS: Lung bases: Lung bases are clear. Minimal coronary artery calcification. Liver: Normal size. No mass. Gallbladder: Gallbladder is contracted. Spleen: Normal size. Pancreas: Diffuse fatty atrophy. Adrenals: Unremarkable Kidneys: Unremarkable Bladder: Unremarkable. Central prosthetic calcifications. Bowel: Colonic diverticulosis without diverticulitis. Appendix: Unremarkable Lymph nodes: Unremarkable. Vasculature: Mild diffuse atherosclerotic calcifications are noted. Peritoneum / Retroperitoneum: Unremarkable Bones: Degenerative changes of the spine. CT/Abdomen/Pelvis WITH Contrast IMPRESSION: Diffuse atrophy of the pancreas. No acute abnormality is seen. Reading Location: [facility] CC: Dr. Alexander Steiner MD Bridge Repairer: Signed [facility] CNOVon 09-30-2024 CN Office Visit (GENSWS ) MARIA EMARGAUX ([id number]) 1940 M Date Time Provider Department 09/30/24 11:30 AM VALERIE GAITAN During your visit today, we recorded the following information about you: Temperature Blood pressure Weight Height 97.5 degrees 124/68 53.9 kg 1.702 m Valerie Gaitan APRN.[facility] 09/30/2024 1:52 PM Signed HISTORY AND PHYSICAL Margaux James Maria E : 1940 REFERRING PHYSICIAN: No referring provider defined for this encounter. CHIEF COMPLAINT: Patient presents with: Consult: EGD AND Colonoscopy HPI: Margaux is a 84 year old male referred for endoscopy. 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 Margaux denies abdominal pain. Margaux denies diarrhea. Margaux notes constipation. -last 3 weeks harder to pass the stool -increased straining Margaux denies a change in bowel habits. Margaux notes melena. -+iFOBT last week -doesn't notice any blood Margaux denies bright red blood per rectum. Margaux notes hemorrhoids. Margaux notes family history of colon issues. Sister with colon cancer Margaux denies heartburn. -takes omeprazole daily with good relief Margaux denies dysphagia. Margaux denies a history of ulcers/ peptic ulcer disease. 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 He follows with [facility]. He completed radiation in 2022. Disease is stable. He has a hx of COPD- uses duoneb daily, but no other inhalers. Is able to walk up steps AND complete activity with no issues Margaux follows with [facility]. Last OV 08/2024. He had a stress test in 2023 EF was 57% AND there was no evidence of ischemia. He CP, SOB, dizziness, palpitations, syncope, edema, recent hospitalizations Margaux has undergone prior endoscopy. Last EGD AND colonoscopy was 01/[address] Machuca at [facility]. Sedation: MAC T he entire duodenum appeared unremarkable. The antral region appeared normal. Given his previous history of Matute's esophagitis and gastritis, biopsies were taken in the antral region. The remainder of the stomach appeared unremarkable. The fundic portion had no true hiatal hernia, but seemed to have a lax lower esophageal sphincter. There was a very small hiatal hernia. The stomach was aspirated of liquid. As the scope was withdrawn, there was an irregular Z-line with a couple areas of flamed erosion. This was consistent with Matute's esophagitis. Biopsies were taken in all 4 quadrants for the short segment. As the scope was withdrawn, the remainder of the esophagus was unremarkable. COLONOSCOPY Digital rectal exam revealed no palpable abnormalities. As the scope was withdrawn, there was an area which appeared to be consistent with scarring from a previous polypectomy site and an area that did not truly look polypoid, but looked slightly erythematous compared to the other site. Narrow band imaging did not truly Demonstrate to be adenomatous, but the area of concern had 2 biopsies performed with biopsy forceps and then APC Argon beam coagulation was performed to obliterate that area. The remainder of the colon, cecum, ascending colon, hepatic flexure, transverse colon, splenic flexure all appeared unremarkable. Descending and sigmoid had few small diverticula. The scope was retroflexed in the rectum and that was normal. MICROSCOPIC DIAGNOSIS A. Gastric antrum, biopsy: Gastritis. B. GE junction, biopsy: Squamous mucosa with focal changes consistent with reflux. Junctional mucosa with chronic and mild acute inflammation. No evidence of dysplasia. C. Cecum, biopsy: Fragments of tubular adenoma. Current Outpatient Medications Medication Sig atorvastatin (LIPITOR) 80 mg tablet Take 80 mg by mouth once daily. levothyroxine (SYNTHROID) 112 mcg tablet Take 112 mcg by mouth once daily. finasteride (PROSCAR) 5 mg tablet Take 5 mg by mouth once daily. tamsulosin (FLOMAX) 0.4 mg Take 0.4 mg by mouth once daily. roflumilast (DALIRESP) 500 mcg tab Take 500 mcg by mouth once daily. albuterol (PROVENTIL) 2.5 mg/0.5 mL nebulizar solution Use 2.5 mg via nebulizer every 6 hours as needed. ipratropium-albuterol (DUONEB) 0.5 mg-3 mg(2.5 mg base)/3 mL nebu Inhale 3 mL as instructed. terazosin (HYTRIN) 1 mg capsule Take 1 mg by mouth daily at bedtime. aspirin, enteric coated (ASPIRIN, ENTERIC COATED) 81 mg EC tablet Take 81 mg by mouth once daily. Omeprazole (PRILOSEC) 40 mg capsule Take 1 capsule by mouth 1-2 times daily. peg 3350-Electrolytes (GOLYTELY) 236-22.74-6.74 -5.86 gram suspension Take 4,000 mL by mouth one time only for 1 dose. Refer to printed prep instructions from your provider. No current facility-administered medications for this visit. ALLERGIES: Patient has no allergy inf (more content not included)... Normal [facility] MR/BMS.Sol 2024 MR/BMS.BVS [facility] [address] [place] [address]. [address] [place] [address] OFFICE VISIT Date of Service: 09/24/24 MR#: [id number] Acct: [id number] Name: MARGAUX SANDERSON Rep #: [id number] : 1940 Provider: CHRISTY Rios Age/Sex: 84/M Location: [facility] Status: Signed Intake Vital Signs 07/08/24 11:09 08/29/24 07:21 09/24/24 14:26 Height 5 ft 7 in 5 ft 7 in BP 102/58 L Blood Pressure Location Lt brachial Position Sitting Respiration 14 Pulse 88 Pulse Source Monitor Temp 98.4 F Temp Source Temporal Pulse Oximetry (%) 96 Oxygen Delivery Method room air Intake Visit Reasons: Carotid Artery occlusion and stenosis Accompanied by: Daughter Is patient in pain?: No Allergies No Known Allergies Allergy (Verified 09/24/24 14:27) Medications ???Medication ???Instructions ???Recorded ???Confirmed ???Type aspirin 81 mg tablet,delayed 81 mg PO DAILY 01/27/16 09/24/24 H istory release terazosin 1 mg capsule 1 mg PO DAILY 04/18/19 09/24/24 Hi story omeprazole 40 mg capsule,delayed 40 mg PO DAILY 05/25/19 09/24/24 H istory release atorvastatin 20 mg tablet 20 mg PO DAILY #90 tabs 10/14/20 0 09/24/24 Rx tamsulosin 0.4 mg capsule 0.4 mg PO DAILY 04/20/21 09/24/24 History budesonide 0.25 mg/2 mL suspension 0.25 mg inhalation BID 10/20/21 09/24/24 History for nebulization multivitamin 1 tab PO DAILY 12/12/22 09/24/24 H istory finasteride 5 mg tablet 5 mg PO DAILY 11/15/23 09/24/24 Hi story levothyroxine 112 mcg tablet 112 mcg PO QDAY 11/28/23 09/24/24 History atorvastatin 80 mg tablet (Lipitor) 80 mg PO QHS #30 tabs 09/24/24 09/24/24 Rx roflumilast 500 mcg tablet 500 mcg PO QDAY 09/24/24 09/24/24 History ([place]) Have you fallen in the past year?: [...] daily uses ibuprofen as needed HPI HPI HPI: MARGAUX SANDERSON, is a 84 M who presents to the office today for evaluation of carotid artery disease as referred by his PCP Dr. Steiner. He is accompanied to his appointment today by his daughter who helps with his care. He had an episode when he was up on a ladder where he suddenly felt weak and sick to his stomach, his daughter was right next to him, helped guide him off the ladder but once off the ladder he fell to his knees, was pale and not responding to her though his eyes were open and he did not appear to lose consciousness. This resolved fairly quickly, she got him to a chair, he drank a pepsi and then felt much better. He reports he had no associated monocular vision loss, unilateral weakness/numbness/paresthes ias, facial droop, dysarthria and has never had episodes of these symptoms prior. He has not had any recurrence of these symptoms. He generally denies any similar presyncope/lightheadedness with overhe (more content not included)... Normal [facility] Echocardiogram study reportO rdered By: Riat Alba on 09-20-2024 Study report [facility] [address] [place] [address] Echo Complete 09/19/24 1429 MR#: [id number] Acct: [id number] Name: MARGAUX SANDERSON Rep #:[id number] : 1940 83 From: Rita Alba MD Attending Dr: Dr. Alexander Steiner MD Status: REG CLI Ordering Dr: Alexander Steiner MD Date: Location: [facility] Sex: M C Admitted: Reason For Study Reason For Study: NEAR SYNCOPE Procedure This was a 2D Doppler, Color Flow transthoracic echocardiogram. Exam performed in department. Left Ventricle The LV ejection fraction is 60 %. Normal diastology for age. Right Ventricle Normal right ventricle. Atria The left and right atria are normal. Mitral Valve Trivial mitral valve insufficiency. Tricuspid Valve Trivial tricuspid valve insufficiency. Right ventricular systolic pressure estimated to be 43 mmHg. Aortic Valve Trisinus/trileaflet aortic valve. Pulmonic Valve The pulmonic valve is not well visualized. Great Vessels Normal sized aortic root. Pericardium/Pleural No pericardial effusion. MMode/2D Measurements & Calculations LVIDd: 4.3 cm IVSd: 0.90 cm Ao root diam: 3.4 cm LVIDs: 3.2 cm LVPWd: 0.87 cm RVDd: 3.4 cm FS: 25.7 % LAV(MOD-bp): 42.4 ml LVAd ap4: 26.7 cm2 SV(MOD-sp4): 32.9 ml LAV(MOD-bp) Indexed: 26.1 ml/m2 LVLd ap4: 8.4 cm SI(MOD-sp4): 20.2 ml/m2 LAV(MOD-sp2): 34.7 ml EDV(MOD-sp4): 72.7 ml LAV(MOD-sp4): 35.6 ml EDV(sp4-el): 72.2 ml LVAs ap4: 17.5 cm2 LVLs ap4: 6.7 cm ESV(MOD-sp4): 39.7 ml ESV(sp4-el): 39.0 ml EF(MOD-sp4): 45.3 % EF(sp4-el): 46.0 % SV(sp4-el): 33.2 ml LA A4 area: 14.8 cm2 LA dimension(2D): 2.5 cm RA A4 area: 14.7 cm2 TAPSE: 2.3 cm Time Measurements MV dec time: 0.22 sec Doppler Measurements & Calculations MV E max adele: 61.5 cm/sec Lat Peak E' Adele: 14.5 cm/sec Med Peak E' Adele: 10.5 cm/sec MV A max adele: 68.9 cm/sec E/E' lat: 4.2 E/E' med: 5.8 MV E/A: 0.89 Ao V2 max: 138.0 cm/sec LV V1 max: 125.1 cm/sec PA V2 max: 85.4 cm/sec Ao max P.7 mmHg LV V1 max P.3 mmHg TR max adele: 308.7 cm/sec TR max P.1 mmHg ECHO/Echo Complete Interpretation Summary The LV ejection fraction is 60 %. Right ventricular systolic pressure estimated to be 43 mmHg. Ordering Physician: Alexander Steiner Chi Referring Physician: Alexander Steiner Chi Performed By: Anny Turk RDCS and Student 09/20/24 1033 Date _ Rita Alba MD CC: Dr. Alexander Steiner MD ~ Date Dictated: 09/19/24 1429 Date Transcribed: 09/20/24 1033 Bridge Repairer: Signed [facility] Work Phone: Stool Occult Blood iFOBon STOB Positive Normal [facility] Comment on above: Performed By: #### L 100.0100, L500.8820, L300.3900 #### [facility] Laboratory [address] [place], [place], [address] Stool gastrointestinal hemog lobin detection by immunologic methodOrdered By: Alexander Steiner on 09-20-2024 Lower GI hemoglobin IA Ql (Stl) Positive Abnormal [facility] Echo Completeon 09-19-2024 Echo Complete [facility] Services [address] [place] [address] Echo Complete 09/19/24 1429 MR#: [id number] Acct: [id number] Name: MARGAUX SANDERSON Rep #: [id number] : 1940 83 From: Rita Alba MD Attending Dr: Dr. Alexander Steiner MD Status: REG CLI Ordering Dr: Alexander Steiner MD Date: 09/19/24 Location: [facility] Sex: M C Admitted: Reason For Study Reason For Study: NEAR SYNCOPE Procedure This was a 2D Doppler, Color Flow transthoracic echocardiogram. Exam performed in department. Left Ventricle The LV ejection fraction is 60 %. Normal diastology for age. Right Ventricle Normal right ventricle. Atria The left and right atria are normal. Mitral Valve Trivial mitral valve insufficiency. Tricuspid Valve Trivial tricuspid valve insufficiency. Right ventricular systolic pressure estimated to be 43 mmHg. Aortic Valve Trisinus/trileaflet aortic valve. Pulmonic Valve The pulmonic valve is not well visualized. Great Vessels Normal sized aortic root. Pericardium/Pleural No pericardial effusion. MMode/2D Measurements Calculations LVIDd: 4.3 cm IVSd: 0.90 cm Ao root diam: 3.4 cm LVIDs: 3.2 cm LVPWd: 0.87 cm RVDd: 3.4 cm FS: 25.7 % LAV(MOD-bp): 42.4 ml LVAd ap4: 26.7 cm2 SV(MOD-sp4): 32.9 ml LAV(MOD-bp) Indexed: 26.1 ml/m2 LVLd ap4: 8.4 cm SI(MOD-sp4): 20.2 ml/m2 LAV(MOD-sp2): 34.7 ml EDV(MOD-sp4): 72.7 ml LAV(MOD-sp4): 35.6 ml EDV(sp4-el): 72.2 ml LVAs ap4: 17.5 cm2 LVLs ap4: 6.7 cm ESV(MOD-sp4): 39.7 ml ESV(sp4-el): 39.0 ml EF(MOD-sp4): 45.3 % EF(sp4-el): 46.0 % SV(sp4-el): 33.2 ml LA A4 area: 14.8 cm2 LA dimension(2D): 2.5 cm RA A4 area: 14.7 cm2 TAPSE: 2.3 cm Time Measurements MV dec time: 0.22 sec Doppler Measurements Calculations MV E max adele: 61.5 cm/sec Lat Peak E' Adele: 14.5 cm/sec Med Peak E' Adele: 10.5 cm/sec MV A max adele: 68.9 cm/sec E/E' lat: 4.2 E/E' med: 5.8 MV E/A: 0.89 Ao V2 max: 138.0 cm/sec LV V1 max: 125.1 cm/sec PA V2 max: 85.4 cm/sec Ao max P.7 mmHg LV V1 max P.3 mmHg TR max adele: 308.7 cm/sec TR max P.1 mmHg ECHO/Echo Complete Interpretation Summary The LV ejection fraction is 60 %. Right ventricular systolic pressure estimated to be 43 mmHg. Ordering Physician: Alexander Steiner Chi Referring Physician: Alexander Steiner Chi Performed By: Anny Turk RDCS and Student 09/20/24 1033 Date Rita Alba MD CC: Dr. Alexander Steiner MD Date Dictated: 09/19/24 1429 Date Transcribed: 09/20/24 1033 Bridge Repairer: Signed Normal [facility] PSA,Total - Annual Screenon 09-19-2024 PSA,TOT SCREEN 1.57 ng/mL Normal 0.02-4.00 [facility] Comment on above: Result Comment: This test was performed using the [employer] tPSA method. Measured values of a patient??sample can vary depending on the testing procedure used. PSA values determined on patient samples by different testing procedures cannot be used interchangeably. If there is a change in PSA assays while monitoring therapy, sequential testing should be performed to confirm baseline values. Performed By: #### L 501.9910 #### [facility] Laboratory [address] [place], [address] Absolute lymphocyte countOrd ered By: Alexander Steiner on 09-16-2024 Lymphocytes Auto (Unsp spec) [#/Vol] 1.04 10*3/uL 0.83-4.51 [facility] Absolute neutrophil countOrd ered [facility]: [facility] Neutrophils (Bld) [#/Vol] 5.0 10*3/uL 2.0-7.7 [facility] Anion gap in Serum or Plasma Ordered By: Alexander Steiner on 09-16-2024 Anion gap [Moles/Vol] 13 mmol/L 5-15 [facility] Automated lymphocyte count a s percentage of total leukocytesOrdered By: Alexander Steiner on 09-16-2024 Lymphocytes/100 WBC Auto (Unsp spec) 14.6 % Low 19-41 [facility] BUN/creatinine ratioOrdered By: [facility] on 09-16-2024 Urea nitrogen/Creatinine [Mass ratio] 18.8 mg/mg 10-20 [facility] Basophil percentageOrdered B y: Alexander Steiner on 09-16-2024 Basophils/100 WBC (Bld) 0.8 % 0-1 [facility] Bilirubin, totalOrdered By: Alexander Steiner on 09-16-2024 Bilirubin [Mass/Vol] 0.24 mg/dL 0.00-1.[address] [facility] CBC W/Diff, Automatedon 08-26 Absolute Lymph 1.04 X10 3/uL Normal 0.83-4.51 [facility] Comment on above: Performed By: #### L 501.9520, L100.0100, L500.4100, L506.1001, L500.4050 #### [facility] [address] [place], [address] Absolute Neut 5.0 X10 3/uL Normal 2.0-7.7 [facility] Comment on above: Performed By: #### L 501.9520, L100.0100, L500.4100, L506.1001, L500.4050 #### [facility] [address] [place], [address] Basophils/100 WBC (Bld) 0.8 % Normal 0-1 [facility] Comment on above: Performed By: #### L 501.9520, L100.0100, L500.4100, L506.1001, L500.4050 #### [facility] [address] [place], [address] Eosinophils/100 WBC (Bld) 1.4 % Normal 0-5 [facility] Comment on above: Performed By: #### L 501.9520, L100.0100, L500.4100, L506.1001, L500.4050 #### [facility] [address] [place], [address] Erythrocyte distribution width (RBC) [Ratio] 18.0 % High 11.6-14.6 [facility] Comment on above: Performed By: #### L 501.9520, L100.0100, L500.4100, L506.1001, L500.4050 #### [facility] [address] [place], [address] Hematocrit (Bld) [Volume fraction] 34.2 % Low 40-54 [facility] Comment on above: Performed By: #### L 501.9520, L100.0100, L500.4100, L506.1001, L500.4050 #### [facility] [address] [place], [address] Hemoglobin (Bld) [Mass/Vol] 10.2 g/dL Low 13.0-16.5 [facility] Comment on above: Performed By: #### L 501.9520, L100.0100, L500.4100, L506.1001, L500.4050 #### [facility] [address] [place], [address] IG% 0.400 Normal 0.0-0.9 [facility] Comment on above: Result Comment: IG% - Immature Granulocytes (promyelocytes, myelocytes and metamyelocytes) > 1% indicates that a LEFT SHIFT is Present. Performed By: #### L 501.9520, L100.0100, L500.4100, L506.1001, L500.4050 #### [facility] [address] [place], [address] Lymphocytes/100 WBC (Bld) 14.6 % Low 19-41 [facility] Comment on above: Performed By: #### L 501.9520, L100.0100, L500.4100, L506.1001, L500.4050 #### [facility] [address] [place], [address] MCH (RBC) [Entitic mass] 23.4 pg Low 27.0-32.0 [facility] Comment on above: Performed By: #### L 501.9520, L100.0100, L500.4100, L506.1001, L500.4050 #### [facility] [address] [place], [address] MCHC (RBC) [Mass/Vol] 29.8 g/dL Low 32-36 [facility] Comment on above: Performed By: #### L 501.9520, L100.0100, L500.4100, L506.1001, L500.4050 #### [facility] [address] [place], [address] MCV (RBC) [Entitic vol] 78.4 fL Low 80-94 [facility] Comment on above: Performed By: #### L 501.9520, L100.0100, L500.4100, L506.1001, L500.4050 #### [facility] [address] [place], [address] Monocytes/100 WBC (Bld) 12.7 % High 0-10 [facility] Comment on above: Performed By: #### L 501.9520, L100.0100, L500.4100, L506.1001, L500.4050 #### [facility] [address] [place], [address] Neutrophils/100 WBC (Bld) 70.1 % High 47-70 [facility] Comment on above: Performed By: #### L 501.9520, L100.0100, L500.4100, L506.1001, L500.4050 #### [facility] [address] [place], [address] Nucleated RBC (Bld) [#/Vol] 0 10*3/uL Normal 0-5 [facility] Comment on above: Performed By: #### L 501.9520, L100.0100, L500.4100, L506.1001, L500.4050 #### [facility] [address] [place], [address] Platelet mean volume (Bld) [Entitic vol] 10.3 fL Normal 6.2-12.0 [facility] Comment on above: Performed By: #### L 501.9520, L100.0100, L500.4100, L506.1001, L500.4050 #### [facility] [address] [place], [address] Platelets (Bld) [#/Vol] 300 10*3/uL Normal 150-450 [facility] Comment on above: Performed By: #### L 501.9520, L100.0100, L500.4100, L506.1001, L500.4050 #### [facility] [address] [place], [address] RBC (Bld) [#/Vol] 4.36 10*6/uL Low 4.6-6.2 [facility] Comment on above: Performed By: #### L 501.9520, L100.0100, L500.4100, L506.1001, L500.4050 #### [facility] [address] [place], [place], [address] RDW SD 50.5 fl High 35.1-43.9 [facility] Comment on above: Performed By: #### L 501.9520, L100.0100, L500.4100, L506.1001, L500.4050 #### [facility] [address] [place], [place], [address] WBC (Bld) [#/Vol] 7.1 10*3/uL Normal 4.4-11.0 [facility] Comment on above: Performed By: #### L 501.9520, L100.0100, L500.4100, L506.1001, L500.4050 #### [facility] [address] [place], [place], [address] Calculated very low density lipoprotein (VLDL) cholesterol measurementOrdered By: Alexander Steiner on 09-16-2024 Calculated very low density lipoprotein (VLDL) cholesterol measurement 9 mg/dL 5-40 [facility] Carbon dioxide, total [Moles /volume] in Central venous bloodOrdered By: Alexander Steiner on 09-16-2024 CO2 [Moles/Vol] 21.9 mmol/L 21.0-32.0 [facility] Chloride assayOrdered By: Emmett Steiner on 09-16-2024 Chloride [Moles/Vol] 109 mmol/L High 98-[address] [facility] Comprehensive Metabolic Prof ilon 09-16-2024 Albumin [Mass/Vol] 3.9 g/dL Normal 3.4-4.8 [facility] Comment on above: Performed By: #### L 501.9520, L100.0100, L500.4100, L506.1001, L500.4050 ####[facility] [address] [place], [address] Albumin/Globulin [Mass ratio] 1.4 {ratio} Normal 0.9-2.4 [facility] Comment on above: Performed By: #### L 501.9520, L100.0100, L500.4100, L506.1001, L500.4050 ####[facility] [address] [place], [address] ALK PHOS 101 U/L Normal 40-129 [facility] Comment on above: Performed By: #### L 501.9520, L100.0100, L500.4100, L506.1001, L500.4050 ####[facility] [address] [place], [address] ALT [Catalytic activity/Vol] 10 U/L Normal <=46 [facility] Comment on above: Performed By: #### L 501.9520, L100.0100, L500.4100, L506.1001, L500.4050 ####[facility] [address] [place], [address] AST [Catalytic activity/Vol] 16 U/L Normal <=37 [facility] Comment on above: Performed By: #### L 501.9520, L100.0100, L500.4100, L506.1001, L500.4050 ####[facility] [address] [place], [address] Bilirubin [Mass/Vol] 0.24 mg/dL Normal 0.00-1.[address] [facility] Comment on above: Performed By: #### L 501.9520, L100.0100, L500.4100, L506.1001, L500.4050 ####[facility] [address] [place], [address] BUN/CRE 18.8 RATIO Normal 10-20 [facility] Comment on above: Performed By: #### L 501.9520, L100.0100, L500.4100, L506.1001, L500.4050 ####[facility] [address] [place], [address] Calcium [Mass/Vol] 9.3 mg/dL Normal 7.6-11.0 [facility] Comment on above: Performed By: #### L 501.9520, L100.0100, L500.4100, L506.1001, L500.4050 ####[facility] [address] [place], [address] Chloride [Moles/Vol] 109 mmol/L High 98-[address] [facility] Comment on above: Performed By: #### L 501.9520, L100.0100, L500.4100, L506.1001, L500.4050 ####[facility] [address] [place], [address] CO2 [Moles/Vol] 21.9 mmol/L Normal 21.0-32.0 [facility] Comment on above: Performed By: #### L 501.9520, L100.0100, L500.4100, L506.1001, L500.4050 ####[facility] [address] [place], [address] Creatinine [Mass/Vol] 0.79 mg/dL Normal 0.70-1.20 [facility] Comment on above: Performed By: #### L 501.9520, L100.0100, L500.4100, L506.1001, L500.4050 ####[facility] [address] [place], [address] GAP 13 Normal 5-15 [facility] Comment on above: Performed By: #### L 501.9520, L100.0100, L500.4100, L506.1001, L500.4050 ####[facility] [address] [place], [address] GFR/1.73 sq M.predicted among non-blacks MDRD (S/P/Bld) [Vol rate/Area] 89 mL/min/{1.73_m2} Normal >60 [facility] Comment on above: Result Comment: mL/m in/1.73m2 CKD-EPI Creatinine Equation (2020) Performed By: #### L 501.9520, L100.0100, L500.4100, L506.1001, L500.4050 ####[facility] [address] [place], [address] Globulin (S) [Mass/Vol] 2.7 g/dL Normal 2.2-4.2 [facility] Comment on above: Performed By: #### L 501.9520, L100.0100, L500.4100, L506.1001, L500.4050 ####[facility] [address] [place], [address] Glucose [Mass/Vol] 111 mg/dL High 70-99 [facility] Comment on above: Performed By: #### L 501.9520, L100.0100, L500.4100, L506.1001, L500.4050 ####[facility] [address] [place], [address] Potassium [Moles/Vol] 3.9 mmol/L Normal 3.3-5.1 [facility] Comment on above: Performed By: #### L 501.9520, L100.0100, L500.4100, L506.1001, L500.4050 ####[facility] [address] [place], [address] Sodium [Moles/Vol] 143 mmol/L Normal 133-145 [facility] Comment on above: Performed By: #### L 501.9520, L100.0100, L500.4100, L506.1001, L500.4050 ####[facility] [address] [place], [address] T PROT 6.6 g/dL Normal 5.9-8.4 [facility] Comment on above: Performed By: #### L 501.9520, L100.0100, L500.4100, L506.1001, L500.4050 ####[facility] [address] [place], [address] Urea nitrogen [Mass/Vol] 15 mg/dL Normal 4-19 [facility] Comment on above: Performed By: #### L 501.9520, L100.0100, L500.4100, L506.1001, L500.4050 ####[facility] [address] [place], [address] Eosinophil percentageOrdered By: Alexander Steiner on 09-16-2024 Eosinophils/100 WBC (Bld) 1.4 % 0-5 [facility] Erythrocyte distribution wid th ratioOrdered By: Alexander Steiner on 09-16-2024 Erythrocyte distribution width (RBC) [Ratio] 18.0 % High 11.6-14.6 [facility] Erythrocyte distribution wid th standard deviationOrdered By: Alexander Steiner on 09-16-2024 Erythrocyte distribution width (RBC) [Ratio] 50.5 fl High 35.1-43.9 [facility] Glomerular filtration rate ( GFR) estimation/1.73 sq m using serum, plasma, or whole bOrdered By: Alexander Steiner on 09-16-2024 GFR/1.73 sq M.predicted among non-blacks MDRD (S/P/Bld) [Vol rate/Area] 89 mL/min/{1.73_m2} >60 [facility] Comment on above: mL/min/1.73m2 CKD-EP I Creatinine Equation (2020) Hematocrit Auto (Bld) [Volum e fraction]Ordered By: Alexander Steiner on 09-16-2024 Hematocrit (Bld) [Volume fraction] 34.2 % Low 40-54 [facility] Hemoglobin measurementOrdere d By: Alexander Steiner on 09-16-2024 Hemoglobin (Bld) [Mass/Vol] 10.2 g/dL Low 13.0-16.5 [facility] Immature granulocytes/100 WB C Auto (Bld)Ordered By: Alexander Steiner on 09-16-2024 Immature granulocytes/100 WBC (Bld) 0.400 % 0.0-0.9 [facility] Comment on above: IG% - Immature Granu locytes (promyelocytes, myelocytes and metamyelocytes) > 1% indicates that a LEFT SHIFT is Present. LDL calc ser/plasOrdered By: Alexander Steiner on 09-16-2024 Cholesterol in LDL [Mass/Vol] 58 mg/dL [facility] Comment on above: Ykbidofuiu=716-991 m g/dL & Higher Ewxb=774 mg/dL or greater Laboratory - Chemistry and C hemistry - challengeOrdered By: Alexander Steiner on 09-16-2024 AST [Catalytic activity/Vol] 16 U/L <38 [facility] Lipid Profileon 09-16-2024 CHOL:HDL 2.01 Normal [facility] Comment on above: Performed By: #### L 501.9520, L100.0100, L500.4100, L506.1001, L500.4050 ####[facility] [address] [place], [address] Cholesterol [Mass/Vol] 133 mg/dL Normal <=200 [facility] Comment on above: Result Comment: Chol esterol level, Desirable <200 mg/dL Borderline high cholesterol 200-239 mg/dL High cholesterol >=240 mg/dL Recommendations of the NCEP Adult Treatment Panel for the following risk-cutoff thresholds for the [place] population. Performed By: #### L 501.9520, L100.0100, L500.4100, L506.1001, L500.4050 ####[facility] [address] [place], [address] Cholesterol in HDL [Mass/Vol] 66 mg/dL Normal [facility] Comment on above: Result Comment: Cee onal Cholesterol Education Program (NCEP) guidelines: <40 mg/dL: Low HDL-cholesterol (major risk factor for CHD) >= 60 mg/dL: High HDL-cholesterol (negative risk factor for CHD) HDL-cholesterol is affected by a number of factors, e.g. smoking, exercise, hormones, sex and age. Performed By: #### L 501.9520, L100.0100, L500.4100, L506.1001, L500.4050 ####[facility] [address] [place], [address] Cholesterol in LDL [Mass/Vol] 58 mg/dL Normal [facility] Comment on above: Result Comment: Bord xxghyg=375-015 mg/dL Higher Lact=781 mg/dL or greater Performed By: #### L 501.9520, L100.0100, L500.4100, L506.1001, L500.4050 ####[facility] [address] [place], [address] Cholesterol in VLDL [Mass/Vol] 9 mg/dL Normal 5-40 [facility] Comment on above: Performed By: #### L 501.9520, L100.0100, L500.4100, L506.1001, L500.4050 ####[facility] [address] [place], [address] Triglyceride [Mass/Vol] 46 mg/dL Normal [facility] Comment on above: Result Comment: The drugs N-Acetylcysteine and Metamizole may falsely depress this assay. Normal range: <150 mg/dL Borderline High: 150-199 mg/dL High: 200-499 mg/dL Very High: >500 mg/dL Performed By: #### L 501.9520, L100.0100, L500.4100, L506.1001, L500.4050 ####[facility] [address] [place], [address] MCV (mean corpuscular volume ) determinationOrdered By: Alexander Steiner on 09-16-2024 MCV (RBC) [Entitic vol] 78.4 fL Low 80-94 [facility] Mean corpuscular hemoglobin (MCH) determinationOrdered By: Alexander Steiner on 09-16-2024 MCH (RBC) [Entitic mass] 23.4 pg Low 27.0-32.0 [facility] Mean corpuscular hemoglobin concentration (MCHC) determinationOrdered By: Alexander Steiner on 09-16-2024 MCHC (RBC) [Mass/Vol] 29.8 g/dL Low 32-36 [facility] Mean platelet volume determi nationOrdered By: Alexander Steiner on 09-16-2024 Platelet mean volume (Bld) [Entitic vol] 10.3 fL 6.2-12.0 [facility] Monocyte percentageOrdered B y: Alexander Steiner on 09-16-2024 Monocytes/100 WBC (Bld) 12.7 % High 0-10 [facility] Neutrophil percentageOrdered By: Alexander Steiner on 09-16-2024 Neutrophils/100 WBC (Bld) 70.1 % High 47-70 [facility] Nucleated red blood cell per centageOrdered By: Alexander Steiner on 09-16-2024 Nucleated RBC/100 WBC (Bld) [Ratio] 0 % 0-5 [facility] Platelet countOrdered By: Emmett Steiner on 09-16-2024 Platelets (Bld) [#/Vol] 300 10*3/uL 150-450 [facility] Potassium measurement (mass/ volume)Ordered By: Alexander Steiner on 09-16-2024 Potassium (Unsp spec) [Mass/Vol] 3.9 mmol/L 3.3-5.1 [facility] RBC Auto (Bld) [#/Vol]Ordere d By: Alexander Steiner on 09-16-2024 RBC (Bld) [#/Vol] 4.36 10*6/uL Low 4.6-6.2 [facility] Screening total cholesterol/ high density lipoprotein (HDL) cholesterol ratioOrdered By: Alexander Steiner on 09-16-2024 Cholesterol.total/Chol esterol in HDL [Mass ratio] 2.01 {ratio} [facility] Serum creatinine measurement (mass/volume)Ordered By: Alexnader Steiner on 09-16-2024 Creatinine [Mass/Vol] 0.79 mg/dL 0.70-1.20 [facility] Serum globulin measurementOr dered By: Alexander Steiner on 09-16-2024 Globulin (S) [Mass/Vol] 2.7 g/dL 2.2-4.2 [facility] Serum glucose measurement (m ass/volume)Ordered By: Alexander Steiner 09-16-2024 Glucose [Mass/Vol] 111 mg/dL High 70-99 [facility] Serum or plasma alanine luna otransferase (ALT) measurementOrdered By: Alexander Steiner on 09-16-2024 ALT [Catalytic activity/Vol] 10 U/L <47 [facility] Serum or plasma albumin maddie urement (mass/volume)Ordered By: Alexander Steiner 09-16-2024 Albumin [Mass/Vol] 3.9 g/dL 3.4-4.8 [facility] Serum or plasma albumin/glob ulin mass ratioOrdered By: Alexander Steiner 09-16-2024 Albumin/Globulin [Mass ratio] 1.4 {ratio} 0.9-2.4 [facility] Serum or plasma alkaline cheryl sphatase measurementOrdered By: Alexander Steiner 09-16-2024 ALP [Catalytic activity/Vol] 101 U/L 40-129 [facility] Serum or plasma calcium maddie urement (mass/volume)Ordered By: Alexander Steiner 09-16-2024 Calcium [Mass/Vol] 9.3 mg/dL 7.6-11.0 [facility] Serum or plasma cholesterol in HDL measurement (mass/volume)Ordered By: Alexander Steiner 09-16-2024 Cholesterol in HDL [Mass/Vol] 66 mg/dL >40 [facility] Comment on above: National Cholesterol Education Program (NCEP) guidelines:<40 mg/dL: Low HDL-cholesterol (major risk factor for CHD)>= 60 mg/dL: High HDL-cholesterol (negative risk factor for CHD)HDL-cholesterol is affected by a number of factors, e.g. smoking, exercise, hormones, sex and age. Serum or plasma cholesterol measurement (mass/volume)Ordered By: Alexander Steiner on 09-16-2024 Cholesterol [Mass/Vol] 133 mg/dL <201 [facility] Comment on above: Cholesterol level, D esirable <200 mg/dLBorderline high cholesterol 200-239 mg/dLHigh cholesterol >=240 mg/dLRecommendations of the NCEP Adult Treatment Panel for the following risk-cutoff thresholds for the [place] population. Serum or plasma urea nitroge n measurement (mass/volume)Ordered By: Alexander Steiner on 09-16-2024 Urea nitrogen [Mass/Vol] 15 mg/dL 4-19 [facility] Sodium levelOrdered By: Alexander Steiner on 09-16-2024 Sodium [Moles/Vol] 143 mmol/L 133-145 [facility] TSH DL <= 0.005 mIU/L QnOrde red By: Alexander Steiner on 09-16-2024 TSH Qn 0.074 uIU/mL Low 0.300-4.20 0 [facility] Thyroid Stim Hormone (TSH)on 09-16-2024 TSH 0.074 uIU/mL Low 0.300-4.20 0 [facility] Comment on above: Performed By: #### L 501.9520, L100.0100, L500.4100, L506.1001, L500.4050 ####[facility] [address] [place], [address] Total proteinOrdered By: Alexander Steiner on 09-16-2024 Protein [Mass/Vol] 6.6 g/dL 5.9-8.4 [facility] Triglycerides measurementOrd ered By: Alexander Steiner on 09-16-2024 Triglyceride [Mass/Vol] 46 mg/dL <199 [facility] Comment on above: The drugs N-Acetylcy steine and Metamizole may falsely depress this assay. Normal range: <150 mg/dLBorderline High: 150-199 mg/dLHigh: 200-499 mg/dLVery High: >500 mg/dL Vitamin D,25 Hydroxyon 09-16 Vitamin D 25-OH 38.9 ng/mL Normal 30-100 [facility] Comment on above: Result Comment: Snow min D Status Deficiency: <20 ng/mL (50nmol/L) Insufficiency: 20-30 ng/mL (50-75 nmol/L) Sufficiency: 30-100 ng/mL (75-250 nmol/L) Toxicity: >100 ng/mL (>250 nmol/L) Performed By: #### L 501.9520, L100.0100, L500.4100, L506.1001, L500.4050 ####[facility] [address] [place], [address] White blood cell (WBC) count Ordered By: Alexander Steiner on 09-16-2024 WBC (Bld) [#/Vol] 7.1 10*3/uL 4.4-11.0 [facility] CTA Head AND Neck W/ Contras ton 09-11-2024 CTA Head AND Neck W/ Contrast [facility] Imaging Services [address] [place] [address] CTA Head AND Neck W/ Contrast MR#: [id number] Acct: [id number] Name: MARGAUX SANDERSON Rep #: [id number] : 1940 M 83 From: Piyush hodge MD PCP: Dr. Alexander Steiner MD Status: REG CLI Study: CTA Head AND Neck W/ Contrast Date of Exam: Exam# [id number] Ordering Dr: Alexander Steiner MD PROCEDURE: CTA HEAD AND NECK W/ CONTRAST 09/11/2024 REASON FOR EXAM: OCCLUSION AND STENOSIS OF UNSPECIFIED CAROTID ARTERY TECHNIQUE: CTA HEAD AND NECK W/ CONTRAST Multiplanar Sagittal and Coronal images were obtained. CONTRAST: Isovue 370 VOLUME: 100 mL One or more dose reduction techniques were used (e.g., Automated exposure control, adjustment of the mA and/or kV according to patient size, use of iterative reconstruction technique). RADIATION DOSE SUMMARY: CTDlvol: 31 mGy DLP: 1467.27 mGycm COMPARISON: None FINDINGS: Aortic Arch: Normal size and branching pattern. Mild atherosclerotic plaque. Brachiocephalic and Subclavians: Mild atherosclerotic plaque without significant stenosis. RIGHT Carotid: Right CCA: Unremarkable. Right ICA: Moderate calcified and soft plaque. Maximum stenosis (NASCET): Greater than 70% % Right ECA: Unremarkable. LEFT Carotid: Left CCA: Mild calcified and soft plaque. Left ICA: High-grade stenosis Maximum stenosis (NASCET): Near occlusion % Left ECA: Unremarkable. Vertebrals: Nonvisualization of the right vertebral artery RIGHT Vertebral: Nonvisualization of the right vertebral artery LEFT Vertebral: Patent left vertebral artery. Anatomy: [place] anatomy is normal. Aneurysm or avm: No intracranial aneurysms or large vascular malformations are identified. Anterior cerebral arteries: Unremarkable: Middle cerebral arteries: Unremarkable. Basilar artery: Unremarkable. Posterior cerebral arteries: Unremarkable. Other major branches of the posterior circulation: Unremarkable. Major venous structures: Unremarkable. 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 Nonvisualization of the right vertebral artery. Dominant left vertebral artery. Reading Location: [place] [address] CC: Dr. Alexander Steiner MD Bridge Repairer: Signed Normal [facility] Cardiology Visit Reporton Cardiology Visit Report [facility] 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 Normal [facility] Electrocardiogram reportOrde red By: Sánchez Pena on 08-26-2024 EKG study [facility] Cardiovascular Services [address] [place] [address] 12 Lead EKG 08/22/24 0917 MR#: [id number] Acct: [id number] Name: MARGAUX SANDERSON Rep #:[id number] : [...] deviation Abnormal ECG Confirmed by Sánchez Pena ([id number]), visual effects editor RICARDO PATEL ([id number]) on 08/26/2024 11:30:26 AM Referred By: Alexander Steiner Confirmed By: Sánchez Pena 08/26/24 1130 Date _ Sánchez Pena MD CC: Dr. Alexander Steiner MD ~ Signed [facility] Work Phone: 12 Lead EKGon 08-22-2024 12 Lead EKG [facility] Cardiovascular Services [address] [place] [address] 12 Lead EKG 08/22/24 0917 MR#: [id number] Acct: [id number] Name: MARGAUX SANDERSON Rep #: [id number] : 1940 83 From: Sánchez Pena MD Attending Dr: Dr. Aelxander Steiner MD Status: REG CLI Ordering Dr: [...] deviation Abnormal ECG Confirmed by Sánchez Pena ([id number]), visual effects editor RICARDO PATEL ([id number]) on 08/26/2024 11:30:26 AM Referred By: Alexander Steiner Confirmed By: Sánchez Pena 08/26/24 1130 Date Sánchez Pena MD CC: Dr. Alexander Steiner MD Signed Normal [facility] Carotid Duplex Ultrasoundon 08-22-2024 Carotid Duplex Ultrasound [facility] Cardiovascular Services [address] [place] [address] Carotid Duplex Ultrasound 08/22/24 0928 MR#: [id number] Acct: [id number] Name: MARGAUX SANDERSON Rep #: [id number] : 1940 83 From: Deni Jackson MD Attending Dr: Dr. Alexander Steiner MD Status: REG CLI Ordering Dr: Alexander Steiner MD Date: 08/22/24 Location: [facility] Sex: M C Admitted: Reason For Study [...] color flow and specral Doppler. Carotid Duplex 39919. Exam performed in department. VL/Carotid Duplex Ultrasound Interpretation Summary Mild (<50%) stenosis right extracranial internal carotid. Moderate (50-69%) stenosis left extracranial internal carotid. Flow was not detected in the right vertebral artery, suggesting that it may be occluded. Flow within the left verterbral artery is antegrade. Ordering Physician: Alexander Steiner Chi Referring Physician: Alexander Steiner Chi Performed By: Naya Aranda RVT 08/22/242216 Date Deni Jackson MD CC: Dr. Alexander Steiner MD Date Dictated: 08/22/24927 Date Transcribed: 08/22/242216 Bridge Repairer: Signed Normal [facility] Duplex ultrasound of carotid artery reportOrdered By: Deni Jackson on 08-22-2024 Study report [facility] Cardiovascular Services [address] [place] [address] Carotid Duplex Ultrasound 08/22/24927 MR#: [id number] Acct: [id number] Name: MARGAUX SANDERSON Rep #:[id number] : 1940 83 From: Deni Jackson MD Attending Dr: Dr. Alexander Steiner MD Status: REG CLI Ordering Dr: Alexander Steiner MD Date: Location: [facility] Sex: M C Admitted: Reason For Study [...] color flow and specral Doppler. Carotid Duplex 61214. Exam performed in department. VL/Carotid Duplex Ultrasound [...] ~ Date Dictated: 08/22/24927 Date Transcribed: 08/22/242216 Bridge Repairer: Signed [facility] Other Phone: Myoglobin, Serumon 5 Myoglobin, Ser 31 ng/mL Normal 28-72 [facility] Comment on above: Result Comment: Perf ormed at: - [facility] [id number] Epic Manager: Parker Parsons PhD, Phone: [phone] Performed By: #### L 100.0100, L517.7910, L300.3261 #### [facility] Laboratory [facility] [place], [address] Absolute lymphocyte countOrd ered By: Alexander Steiner on 08-12-2024 Lymphocytes Auto (Unsp spec) [#/Vol] 0.94 10*3/uL 0.83-4.51 [facility] Absolute neutrophil countOrd ered By: Alexander Steiner on 08-12-2024 Neutrophils (Bld) [#/Vol] 4.3 10*3/uL 2.0-7.7 [facility] Anion gap in Serum or Plasma Ordered By: Alexnader Steiner on 08-12-2024 Anion gap [Moles/Vol] 11 mmol/L 5-15 [facility] Automated lymphocyte count a s percentage of total leukocytesOrdered By: Alexander Steiner on 08-12-2024 Lymphocytes/100 WBC Auto (Unsp spec) 15.0 % Low - [facility] BUN/creatinine ratioOrdered By: Alexander Steiner on 08-12-2024 Urea nitrogen/Creatinine [Mass ratio] 17.0 mg/mg 10-20 [facility] Basophil percentageOrdered B y: Alexander Steiner on 08-12-2024 Basophils/100 WBC (Bld) 1.4 % High 0-1 [facility] Bilirubin, totalOrdered By: Alexander Steiner on 08-12-2024 Bilirubin [Mass/Vol] 0.43 mg/dL 0.00-1.[address] [facility] CBC W/Diff, Automatedon 07-25 Absolute Lymph 0.94 X10 3/uL Normal 0.83-4.51 [facility] Comment on above: Performed By: #### L 100.0100, L500.4050, L300.3900 #### [facility] [address] [place], [address] Absolute Neut 4.3 X10 3/uL Normal 2.0-7.7 [facility] Comment on above: Performed By: #### L 100.0100, L500.4050, L300.3900 #### [facility] [address] [place], [address] Basophils/100 WBC (Bld) 1.4 % High 0-1 [facility] Comment on above: Performed By: #### L 100.0100, L500.4050, L300.3900 #### [facility] [address] [place], [address] Eosinophils/100 WBC (Bld) 2.1 % Normal 0-5 [facility] Comment on above: Performed By: #### L 100.0100, L500.4050, L300.3900 #### [facility] [address] [place], [address] Erythrocyte distribution width (RBC) [Ratio] 17.2 % High 11.6-14.6 [facility] Comment on above: Performed By: #### L 100.0100, L500.4050, L300.3900 #### [facility] [address] [place], [address] Hematocrit (Bld) [Volume fraction] 36.3 % Low 40-54 [facility] Comment on above: Performed By: #### L 100.0100, L500.4050, L300.3900 #### [facility] [address] [place], [address] Hemoglobin (Bld) [Mass/Vol] 11.2 g/dL Low 13.0-16.5 [facility] Comment on above: Performed By: #### L 100.0100, L500.4050, L300.3900 #### [facility] [address] [place], [address] IG% 0.300 Normal 0.0-0.9 [facility] Comment on above: Result Comment: IG% - Immature Granulocytes (promyelocytes, myelocytes and metamyelocytes) > 1% indicates that a LEFT SHIFT is Present. Performed By: #### L 100.0100, L500.4050, L300.3900 #### [facility] [address] [place], [address] Lymphocytes/100 WBC (Bld) 15.0 % Low 19-41 [facility] Comment on above: Performed By: #### L 100.0100, L500.4050, L300.3900 #### [facility] [address] [place], [address] MCH (RBC) [Entitic mass] 24.3 pg Low 27.0-32.0 [facility] Comment on above: Performed By: #### L 100.0100, L500.4050, L300.3900 #### [facility] [address] [place], [address] MCHC (RBC) [Mass/Vol] 30.9 g/dL Low 32-36 [facility] Comment on above: Performed By: #### L 100.0100, L500.4050, L300.3900 #### [facility] [address] [place], [address] MCV (RBC) [Entitic vol] 78.9 fL Low 80-94 [facility] Comment on above: Performed By: #### L 100.0100, L500.4050, L300.3900 #### [facility] [address] [place], [address] Monocytes/100 WBC (Bld) 12.1 % High 0-10 [facility] Comment on above: Performed By: #### L 100.0100, L500.4050, L300.3900 #### [facility] [address] [place], [address] Neutrophils/100 WBC (Bld) 69.1 % Normal 47-70 [facility] Comment on above: Performed By: #### L 100.0100, L500.4050, L300.3900 #### [facility] [address] [place], [address] Nucleated RBC (Bld) [#/Vol] 0 10*3/uL Normal 0-5 [facility] Comment on above: Performed By: #### L 100.0100, L500.4050, L300.3900 #### [facility] [address] [place], [address] Platelet mean volume (Bld) [Entitic vol] 10.9 fL Normal 6.2-12.0 [facility] Comment on above: Performed By: #### L 100.0100, L500.4050, L300.3900 #### [facility] [address] [place], [address] Platelets (Bld) [#/Vol] 325 10*3/uL Normal 150-450 [facility] Comment on above: Performed By: #### L 100.0100, L500.4050, L300.3900 #### [facility] [address] [place], [address] RBC (Bld) [#/Vol] 4.60 10*6/uL Normal 4.6-6.2 [facility] Comment on above: Performed By: #### L 100.0100, L500.4050, L300.3900 #### [facility] [address] [place], [address] RDW SD 49.9 fl High 35.1-43.9 [facility] Comment on above: Performed By: #### L 100.0100, L500.4050, L300.3900 #### [facility] [address] [place], [address] WBC (Bld) [#/Vol] 6.3 10*3/uL Normal 4.4-11.0 [facility] Comment on above: Performed By: #### L 100.0100, L500.4050, L300.3900 #### [facility] [address] [place], [address] CPK Total, Creatine Kinaseon 08-12-2024 CPK TOTAL 57 U/L Normal 24-195 [facility] Comment on above: Performed By: #### L 100.0100, L500.4050, L300.3900 #### [facility] [address] [place], [address] Carbon dioxide, total [Moles /volume] in Central venous bloodOrdered By: Alexander Steiner on 08-12-2024 CO2 [Moles/Vol] 22.4 mmol/L 21.0-32.0 [facility] Chloride assayOrdered By: Emmett Steiner on 08-12-2024 Chloride [Moles/Vol] 107 mmol/L 98-[address] [facility] Comprehensive Metabolic Prof ilon 08-12-2024 Albumin [Mass/Vol] 4.0 g/dL Normal 3.4-4.8 [facility] Comment on above: Performed By: #### L 100.0100, L500.4050, L300.3900 #### [facility] [address] [place], [address] Albumin/Globulin [Mass ratio] 1.4 {ratio} Normal 0.9-2.4 [facility] Comment on above: Performed By: #### L 100.0100, L500.4050, L300.3900 #### [facility] [address] [place], [address] ALK PHOS 114 U/L Normal 40-129 [facility] Comment on above: Performed By: #### L 100.0100, L500.4050, L300.3900 #### [facility] [address] [place], [address] ALT [Catalytic activity/Vol] 8 U/L Normal <=46 [facility] Comment on above: Performed By: #### L 100.0100, L500.4050, L300.3900 #### [facility] [address] [place], [address] AST [Catalytic activity/Vol] 17 U/L Normal <=37 [facility] Comment on above: Performed By: #### L 100.0100, L500.4050, L300.3900 #### [facility] [address] [place], [address] Bilirubin [Mass/Vol] 0.43 mg/dL Normal 0.00-1.[address] [facility] Comment on above: Performed By: #### L 100.0100, L500.4050, L300.3900 #### [facility] [address] [place], [address] BUN/CRE 17.0 RATIO Normal 10-20 [facility] Comment on above: Performed By: #### L 100.0100, L500.4050, L300.3900 #### [facility] [address] [place], [address] Calcium [Mass/Vol] 9.5 mg/dL Normal 7.6-11.0 [facility] Comment on above: Performed By: #### L 100.0100, L500.4050, L300.3900 #### [facility] [address] [place], [address] Chloride [Moles/Vol] 107 mmol/L Normal 98-[address] [facility] Comment on above: Performed By: #### L 100.0100, L500.4050, L300.3900 #### [facility] [address] [place], [address] CO2 [Moles/Vol] 22.4 mmol/L Normal 21.0-32.0 [facility] Comment on above: Performed By: #### L 100.0100, L500.4050, L300.3900 #### [facility] [address] [place], [address] Creatinine [Mass/Vol] 0.74 mg/dL Normal 0.70-1.20 [facility] Comment on above: Performed By: #### L 100.0100, L500.4050, L300.3900 #### [facility] [address] [place], [address] GAP 11 Normal 5-15 [facility] Comment on above: Performed By: #### L 100.0100, L500.4050, L300.3900 #### [facility] [address] [place], [address] GFR/1.73 sq M.predicted among non-blacks MDRD (S/P/Bld) [Vol rate/Area] 91 mL/min/{1.73_m2} Normal >60 [facility] Comment on above: Result Comment: mL/m in/1.73m2 CKD-EPI Creatinine Equation (2020) Performed By: #### L 100.0100, L500.4050, L300.3900 #### [facility] [address] [place], [address] Globulin (S) [Mass/Vol] 2.8 g/dL Normal 2.2-4.2 [facility] Comment on above: Performed By: #### L 100.0100, L500.4050, L300.3900 #### [facility] [address] [place], [address] Glucose [Mass/Vol] 99 mg/dL Normal 70-99 [facility] Comment on above: Performed By: #### L 100.0100, L500.4050, L300.3900 #### [facility] [address] [place], [address] Potassium [Moles/Vol] 3.7 mmol/L Normal 3.3-5.1 [facility] Comment on above: Performed By: #### L 100.0100, L500.4050, L300.3900 #### [facility] [address] [place], [address] Sodium [Moles/Vol] 140 mmol/L Normal 133-145 [facility] Comment on above: Performed By: #### L 100.0100, L500.4050, L300.3900 #### [facility] [address] [place], [address] T PROT 6.9 g/dL Normal 5.9-8.4 [facility] Comment on above: Performed By: #### L 100.0100, L500.4050, L300.3900 #### [facility] [address] [place], [address] Urea nitrogen [Mass/Vol] 13 mg/dL Normal - [facility] Comment on above: Performed By: #### L 100.0100, L500.4050, L300.3900 #### [facility] [address] [place], [address] Eosinophil percentageOrdered By: Alexander Steiner on 08-12-2024 Eosinophils/100 WBC (Bld) 2.1 % 0-5 [facility] Erythrocyte distribution wid th ratioOrdered By: [facility]-12-[facility] Erythrocyte distribution width (RBC) [Ratio] 17.2 % High 11.6-14.6 [facility] Erythrocyte distribution wid th standard deviationOrdered By: [facility] on 08-12-2024 Erythrocyte distribution width (RBC) [Ratio] 49.9 fl High 35.1-43.9 [facility] Glomerular filtration rate ( GFR) estimation/1.73 sq m using serum, plasma, or whole bOrdered By: Alexander Steiner on 08-12-2024 GFR/1.73 sq M.predicted among non-blacks MDRD (S/P/Bld) [Vol rate/Area] 91 mL/min/{1.73_m2} >60 [facility] Comment on above: mL/min/1.73m2 CKD-EP I Creatinine Equation (2020) Hematocrit Auto (Bld) [Volum e fraction]Ordered By: Alexander Steiner on 08-12-2024 Hematocrit (Bld) [Volume fraction] 36.3 % Low 40-54 [facility] Hemoglobin measurementOrdere d By: Alexander Jatin on 08-12-2024 Hemoglobin (Bld) [Mass/Vol] 11.2 g/dL Low 13.0-16.5 [facility] Immature granulocytes/100 WB C Auto (Bld)Ordered By: Alexander Steiner on 08-12-2024 Immature granulocytes/100 WBC (Bld) 0.300 % 0.0-0.9 [facility] Comment on above: IG% - Immature Granu locytes (promyelocytes, myelocytes and metamyelocytes) > 1% indicates that a LEFT SHIFT is Present. L501.4021on 08-12-2024 Trop T High Sen 15 ng/L Normal <=22 [facility] Comment on above: Performed By: #### L 100.0100, L500.4050, L300.3900 #### [facility] [address] [place], [address] Laboratory - Chemistry and C hemistry - challengeOrdered By: Alexander Steiner on 08-12-2024 AST [Catalytic activity/Vol] 17 U/L <38 [facility] MCV (mean corpuscular volume ) determinationOrdered By: Alexander Steiner on 08-12-2024 MCV (RBC) [Entitic vol] 78.9 fL Low 80-94 [facility] Mean corpuscular hemoglobin (MCH) determinationOrdered By: Alexander Steiner 08-12-2024 MCH (RBC) [Entitic mass] 24.3 pg Low 27.0-32.0 [facility] Mean corpuscular hemoglobin concentration (MCHC) determinationOrdered By: Alexander Steiner on 08-12-2024 MCHC (RBC) [Mass/Vol] 30.9 g/dL Low 32-36 [facility] Mean platelet volume determi nationOrdered By: Alexander Steiner on 08-12-2024 Platelet mean volume (Bld) [Entitic vol] 10.9 fL 6.2-12.0 [facility] Monocyte percentageOrdered B y: Alexander Steiner on 08-12-2024 Monocytes/100 WBC (Bld) 12.1 % High 0-10 [facility] Neutrophil percentageOrdered By: Alexander Steiner on 08-12-2024 Neutrophils/100 WBC (Bld) 69.1 % 47-70 [facility] Nucleated red blood cell per centageOrdered By: Alexander Steiner on 08-12-2024 Nucleated RBC/100 WBC (Bld) [Ratio] 0 % 0-5 [facility] Platelet countOrdered By: Emmett Steiner on 08-12-2024 Platelets (Bld) [#/Vol] 325 10*3/uL 150-450 [facility] Potassium measurement (mass/ volume)Ordered By: Alexander Steiner on 08-12-2024 Potassium (Unsp spec) [Mass/Vol] 3.7 mmol/L 3.3-5.1 [facility] RBC Auto (Bld) [#/Vol]Ordere d By: Alexander Steiner on 08-12-2024 RBC (Bld) [#/Vol] 4.60 10*6/uL 4.6-6.2 [facility] Serum creatinine measurement (mass/volume)Ordered By: Alexander Steiner on 08-12-2024 Creatinine [Mass/Vol] 0.74 mg/dL 0.70-1.20 [facility] Serum globulin measurementOr dered By: Alexander Steiner on 08-12-2024 Globulin (S) [Mass/Vol] 2.8 g/dL 2.2-4.2 [facility] Serum glucose measurement (m ass/volume)Ordered By: Alexander Steiner on 08-12-2024 Glucose [Mass/Vol] 99 mg/dL 70-99 [facility] Serum myoglobin measurementO rdered By: Alexander Steiner on 08-12-2024 Myoglobin [Mass/Vol] 31 ng/mL 28-[address] [facility] Comment on above: Performed at: [address] Director: Parker Parsons PhD, Phone: [phone] Serum or plasma alanine luna otransferase (ALT) measurementOrdered By: Alexander Steiner 08-12-2024 ALT [Catalytic activity/Vol] 8 U/L <47 [facility] Serum or plasma albumin maddie urement (mass/volume)Ordered By: Alexander Steiner 08-12-2024 Albumin [Mass/Vol] 4.0 g/dL 3.4-4.8 [facility] Serum or plasma albumin/glob ulin mass ratioOrdered By: Alexander Steiner 08-12-2024 Albumin/Globulin [Mass ratio] 1.4 {ratio} 0.9-2.4 [facility] Serum or plasma alkaline cheryl sphatase measurementOrdered By: Alexander Steiner 08-12-2024 ALP [Catalytic activity/Vol] 114 U/L 40-129 [facility] Serum or plasma calcium maddie urement (mass/volume)Ordered By: Alexander Steiner on 08-12-2024 Calcium [Mass/Vol] 9.5 mg/dL 7.6-11.0 [facility] Serum or plasma creatine kin ase activityOrdered By: Alexander Steiner on 08-12-2024 CK [Catalytic activity/Vol] 57 U/L 24-195 [facility] Serum or plasma urea nitroge n measurement (mass/volume)Ordered By: Alexander Steiner on 08-12-2024 Urea nitrogen [Mass/Vol] 13 mg/dL 4- [facility] Sodium levelOrdered By: Alexander Steiner on 08-12-2024 Sodium [Moles/Vol] 140 mmol/L 133-145 [facility] Total proteinOrdered By: Alexander Steiner 08-12-2024 Protein [Mass/Vol] 6.9 g/dL 5.9-8.4 [facility] Troponin T.cardiac [Mass/vol ume] in Serum or Plasma by High sensitivity methodOrdered By: Alexander Steiner 08-12-2024 Troponin T.cardiac High sensitivity method [Mass/Vol] 15 ng/L <22 [facility] White blood cell (WBC) count Ordered By: Alexander Steiner on 08-12-2024 WBC (Bld) [#/Vol] 6.3 10*3/uL 4.4-11.0 [facility] Radiation Oncology Visiton 0 07-08-[address] [facility] [address] [place] [address] OFFICE VISIT Date of Service: 07/08/241104 MR#: [id number] Acct: [id number] Name: MARGAUX SANDERSON Rep #: [id number] : 1940 From: Alejandro Machado DO Age/Sex: 83/M [place] [facility] [place]: [place] Intake Vital Signs 02/29/24 11:32 [...] 5 mg tablet 5 mg PO DAILY 11/14/ (more content not included)... Normal [facility] Chest WITH Contraston 2024 Chest WITH Contrast [facility] [address] [place] [address] Chest WITH Contrast MR#: [id number] Acct: [id number] Name: MARGAUX SANDERSON Rep #: [id number] : 1940 M 83 From: Piyush hodge MD PCP: Dr. Alexander Steiner MD Status: REG CLI Study: Chest WITH Contrast Date of Exam: 06/27/24 Exam# [id number] Ordering Dr: Alejandro Machado DO PROCEDURE: CHEST [...] of the right upper lobe. Reading Location: [facility] CC: Dr. Alejandro Machado DO; Dr. Alexander Steiner MD Bridge Repairer: Signed Normal [facility] Chest PA and Lateralon 05-28 Chest PA and Lateral [facility] [address] [place], [place] [address] Chest PA and Lateral MR#: [id number] Acct: [id number] Name: MARGAUX SANDERSON Rep #: [id number] : 1940 M 83 From: Negro Neal MD PCP: Dr. Alexander Steiner MD Status: REG CLI Study: Chest PA and Lateral Date of Exam: 05/28/24 Exam# [id number] Ordering Dr: Alexander Steiner MD EXAM: XR Chest, 2 Views CLINICAL INDICATION: TECHNIQUE: Frontal and lateral views of the chest. COMPARISON: No relevant prior studies available. FINDINGS: LUNGS AND PLEURAL SPACES: Unremarkable. No consolidation. No pneumothorax. HEART: Unremarkable. No cardiomegaly. MEDIASTINUM: Unremarkable. Normal mediastinal contour. BONES/JOINTS: Unremarkable. No acute fracture. RAD/Chest PA and Lateral IMPRESSION: No acute cardiopulmonary process. Reading Location: [facility] CC: Dr. Alexander Steiner MD Bridge Repairer: Signed Normal [facility] Influenza virus A and B and SARS-CoV-2 (COVID-19) and Respiratory syncytial virus RNAOrdered By: Alexander Steiner on 05-28-2024 SARS-CoV-2 (COVID-19) RNA JOHNNIE+probe Ql (Unsp spec) SARS-CoV-2 (COVID 19 PCR) Abnormal [facility] M100.678on 05-28-2024 M100.678 Copy of report sent to Infection Control Printer [id number] 05/28/24 7903 BLUCAS. SARS-CoV-2 (COVID 19) A Positive A INFLUENZA A Negative INFLUENZA B Negative RSV PCR Negative SARS-CoV-2 (COVID 19 PCR) Normal [facility] Comment on above: Performed By: #### L 100.0100, L500.4050, L300.3900 #### [facility] [address] [place], [address] Absolute lymphocyte countOrd ered By: Micah Jimenez on 05-14-2024 Lymphocytes Auto (Unsp spec) [#/Vol] 1.31 10*3/uL 0.83-4.51 [facility] Absolute neutrophil countOrd ered By: Micah Gatesasia on 05-14-2024 Neutrophils (Bld) [#/Vol] 3.7 10*3/uL 2.0-7.7 [facility] Automated lymphocyte count a s percentage of total leukocytesOrdered By: Micah Jimenez on 05-14-2024 Lymphocytes/100 WBC Auto (Unsp spec) 21.5 % 19-41 [facility] Basophil percentageOrdered B y: Micah Jimenez on 05-14-2024 Basophils/100 WBC (Bld) 0.5 % 0-1 [facility] CBC W/Diff, Automatedon 04-27-2024 Absolute Lymph 1.31 X10 3/uL Normal 0.83-4.51 [facility] Comment on above: Performed By: #### L 100.0100 ####[facility] [address] [place], [address] Absolute Neut 3.7 X10 3/uL Normal 2.0-7.7 [facility] Comment on above: Performed By: #### L 100.0100 ####[facility] [address] [place], [address] Basophils/100 WBC (Bld) 0.5 % Normal 0-1 [facility] Comment on above: Performed By: #### L 100.0100 ####[facility] [address] [place], [address] Eosinophils/100 WBC (Bld) 2.0 % Normal 0-5 [facility] Comment on above: Performed By: #### L 100.0100 ####[facility] [address] [place], [address] Erythrocyte distribution width (RBC) [Ratio] 16.7 % High 11.6-14.6 [facility] Comment on above: Performed By: #### L 100.0100 ####[facility] [address] [place], [address] Hematocrit (Bld) [Volume fraction] 38.4 % Low 40-54 [facility] Comment on above: Performed By: #### L 100.0100 ####[facility] [address] [place], [address] Hemoglobin (Bld) [Mass/Vol] 11.9 g/dL Low 13.0-16.5 [facility] Comment on above: Performed By: #### L 100.0100 ####[facility] [address] [place], [address] IG% 0.300 Normal 0.0-0.9 [facility] Comment on above: Result Comment: IG% - Immature Granulocytes (promyelocytes, myelocytes and metamyelocytes) > 1% indicates that a LEFT SHIFT is Present. Performed By: #### L 100.0100 ####[facility] [address] [place], [address] Lymphocytes/100 WBC (Bld) 21.5 % Normal 19-41 [facility] Comment on above: Performed By: #### L 100.0100 ####[facility] [address] [place], [address] MCH (RBC) [Entitic mass] 26.4 pg Low 27.0-32.0 [facility] Comment on above: Performed By: #### L 100.0100 ####[facility] [address] [place], [address] MCHC (RBC) [Mass/Vol] 31.0 g/dL Low 32-36 [facility] Comment on above: Performed By: #### L 100.0100 ####[facility] [address] [place], [address] MCV (RBC) [Entitic vol] 85.1 fL Normal 80-94 [facility] Comment on above: Performed By: #### L 100.0100 ####[facility] [address] [place], [address] Monocytes/100 WBC (Bld) 14.6 % High 0-10 [facility] Comment on above: Performed By: #### L 100.0100 ####[facility] [address] [place], [address] Neutrophils/100 WBC (Bld) 61.1 % Normal 47-70 [facility] Comment on above: Performed By: #### L 100.0100 ####[facility] [address] [place], [address] Nucleated RBC (Bld) [#/Vol] 0 10*3/uL Normal 0-5 [facility] Comment on above: Performed By: #### L 100.0100 ####[facility] [address] [place], [address] Platelet mean volume (Bld) [Entitic vol] 9.8 fL Normal 6.2-12.0 [facility] Comment on above: Performed By: #### L 100.0100 ####[facility] [address] [place], [address] Platelets (Bld) [#/Vol] 341 10*3/uL Normal 150-450 [facility] Comment on above: Performed By: #### L 100.0100 ####[facility] [address] [place], [address] RBC (Bld) [#/Vol] 4.51 10*6/uL Low 4.6-6.2 [facility] Comment on above: Performed By: #### L 100.0100 ####[facility] [address] [place], [place], [address] RDW SD 52.6 fl High 35.1-43.9 [facility] Comment on above: Performed By: #### L 100.0100 ####[facility] [address] [place], [place], [address] WBC (Bld) [#/Vol] 6.1 10*3/uL Normal 4.4-11.0 [facility] Comment on above: Performed By: #### L 100.0100 ####[facility] [address] [place], [place], [address] Eosinophil percentageOrdered By: Micah Jimenez on 05-14-2024 Eosinophils/100 WBC (Bld) 2.0 % 0-5 [facility] Erythrocyte distribution wid th ratioOrdered By: Micah Jimenez on 05-14-2024 Erythrocyte distribution width (RBC) [Ratio] 16.7 % High 11.6-14.6 [facility] Erythrocyte distribution wid th standard deviationOrdered By: Micah Jimenez on 05-14-2024 Erythrocyte distribution width (RBC) [Entitic vol] 52.6 fL High 35.1-43.9 [facility] Erythrocyte distribution width (RBC) [Ratio] 52.6 fl High 35.1-43.9 [facility] Hematocrit Auto (Bld) [Volum e fraction]Ordered By: Micah Jimenez on 05-14-2024 Hematocrit (Bld) [Volume fraction] 38.4 % Low 40-54 [facility] Hemoglobin measurementOrdere d By: Micah Jimenez on 05-14-2024 Hemoglobin (Bld) [Mass/Vol] 11.9 g/dL Low 13.0-16.5 [facility] Immature granulocytes/100 WB C Auto (Bld)Ordered By: Micah Jimenez on 05-14-2024 Immature granulocytes/100 WBC (Bld) 0.300 % 0.0-0.9 [facility] Comment on above: IG% - Immature Granu locytes (promyelocytes, myelocytes and metamyelocytes) > 1% indicates that a LEFT SHIFT is Present. Lymphocytes Auto (Unsp spec) [#/Vol]Ordered By: Micah Jimenez on 05-14-2024 Lymphocytes (Bld) [#/Vol] 1.31 10*3/uL 0.83-4.51 [facility] Lymphocytes/100 WBC Auto (Un sp spec)Ordered By: Micah Jimenez on 05-14-2024 Lymphocytes/100 WBC (Bld) 21.5 % 19-41 [facility] MCV (mean corpuscular volume ) determinationOrdered By: Micah Jimenez on 05-14-2024 MCV (RBC) [Entitic vol] 85.1 fL 80-94 [facility] Mean corpuscular hemoglobin (MCH) determinationOrdered By: Micah Jimenez on 05-14-2024 MCH (RBC) [Entitic mass] 26.4 pg Low 27.0-32.0 [facility] Mean corpuscular hemoglobin concentration (MCHC) determinationOrdered By: Micah Jimenez on 05-14-2024 MCHC (RBC) [Mass/Vol] 31.0 g/dL Low 32-36 [facility] Mean platelet volume determi nationOrdered By: Micah Jimenez on 05-14-2024 Platelet mean volume (Bld) [Entitic vol] 9.8 fL 6.2-12.0 [facility] Monocyte percentageOrdered B y: Micah Jimenez on 05-14-2024 Monocytes/100 WBC (Bld) 14.6 % High 0-10 [facility] Neutrophil percentageOrdered By: Micah Jimenez on 05-14-2024 Neutrophils/100 WBC (Bld) 61.1 % 47-70 [facility] Nucleated red blood cell per centageOrdered By: Micah Jimenez on 05-14-2024 Nucleated RBC/100 WBC (Bld) [Ratio] 0 % 0-5 [facility] Platelet countOrdered By: Effie Jimenez on 05-14-2024 Platelets (Bld) [#/Vol] 341 10*3/uL 150-450 [facility] RBC Auto (Bld) [#/Vol]Ordere d By: Micah Jimenez on 05-14-2024 RBC (Bld) [#/Vol] 4.51 10*6/uL Low 4.6-6.2 [facility] White blood cell (WBC) count Ordered By: Micah Jimenez on 05-14-2024 WBC (Bld) [#/Vol] 6.1 10*3/uL 4.4-11.0 [facility] Chest PA and Lateralon 04-12 Chest PA and Lateral [facility] Imaging Services [address] [place] [address] Chest PA and Lateral MR#: [id number] Acct: [id number] Name: MARGAUX SANDERSON Rep #: [id number] : 1940 M 83 From: Filiberto valladares MD PCP: Dr. Alexander Steiner MD Status: REG CLI Study: Chest PA and Lateral Date of Exam: 04/12/24 Exam# [id number] Ordering Dr: Alexander Steiner MD [id number] INDICATION: WHEEZING EXAMINATION/TECHNIQUE: X-RAY - XR Chest 2 Views COMPARISON: None. FINDINGS: Chronic lung changes. Hyperinflation. Tortuous and calcified thoracic aorta. The heart is not enlarged. No pleural effusion or pneumothorax. Degenerative changes of the thoracic spine. RAD/Chest PA and Lateral IMPRESSION: No acute radiographic abnormalities. COPD. Electronically Signed: Filiberto Santacruz MD at 10:25 EST , CC: Dr. Alexander Steiner MD Bridge Repairer: Signed Normal [facility] Influenza virus A and B and SARS-CoV-2 (COVID-19) and Respiratory syncytial virus RNAOrdered By: Alexander Steiner on 04-12-2024 SARS-CoV-2 (COVID-19) RNA JOHNNIE+probe Ql (Unsp spec) [facility] M100.678on 04-12-2024 M100.678 Pending SARS-CoV-2 (COVID 19) Negative INFLUENZA A Negative INFLUENZA B Negative RSV PCR Negative Normal [facility] Comment on above: Performed By: #### L 100.0100, L500.4050, L300.3900 #### [facility] [address] [place], [address] Influenza virus A and B and SARS-CoV-2 (COVID-19) and Respiratory syncytial virus RNAOrdered By: Alexander Steiner on 03-26-2024 SARS-CoV-2 (COVID-19) RNA JOHNNIE+probe Ql (Unsp spec) [facility] M100.678on 03-26-2024 M100.678 Pending SARS-CoV-2 (COVID 19) Negative INFLUENZA A Negative INFLUENZA B Negative RSV PCR Negative Normal [facility] Comment on above: Performed By: #### L 100.0100, L500.4050, L300.3900 #### [facility] [address] [place], [address] [id number] DOrdered By: Brandi Steiner on 03-06-2024 Vitamin D 25-Hydroxy 27.4 ng/mL [facility] Comment on above: Vitamin D 25(OH) Sta tus Range Deficiency <20 ng/mL (50nmol/L) Insufficiency 20 - 30 ng/mL (50 - 75 nmol/L) Sufficiency 30 - 100 ng/mL (75 - 250 nmol/L) Toxicity >100 ng/mL (>250 nmol/L) Absolute neutrophil countOrd ered By: Alexander Steiner on 03-06-2024 Neutrophils (Bld) [#/Vol] 6.5 10*3/uL 2.0-7.7 [facility] Albumin to globulin ratioOrd ered By: Alexander Steiner on 03-06-2024 Albumin/Globulin [Mass ratio] 0.9 {ratio} 0.9-2.4 [facility] Basophil percentageOrdered B y: Alexander Steiner on 03-06-2024 Basophils/100 WBC (Bld) 0.9 % 0-1 [facility] Bilirubin, totalOrdered By: Alexander Steiner on 03-06-2024 Bilirubin [Mass/Vol] 0.70 mg/dL 0.20-1.[address] [facility] Comment on above: For patients on eltr ombopag therapy, use of Dimension [place] TBIL is not recommended. Blood urea nitrogen (BUN)/cr eatinine ratioOrdered By: Alexander Steiner on 03-06-2024 Urea nitrogen/Creatinine [Mass ratio] 15.6 mg/mg - [facility] CBC W/Diff, Automatedon 02-24 Absolute Lymph 1.02 X10 3/uL Normal 0.83-4.51 [facility] Comment on above: Performed By: #### L 100.0100, L500.4050, L300.3900 #### [facility] [address] [place], [address] Absolute Neut 6.5 X10 3/uL Normal 2.0-7.7 [facility] Comment on above: Performed By: #### L 100.0100, L500.4050, L300.3900 #### [facility] [address] [place], [address] Basophils/100 WBC (Bld) 0.9 % Normal 0-1 [facility] Comment on above: Performed By: #### L 100.0100, L500.4050, L300.3900 #### [facility] [address] [place], [address] Eosinophils/100 WBC (Bld) 1.2 % Normal 0-5 [facility] Comment on above: Performed By: #### L 100.0100, L500.4050, L300.3900 #### [facility] [address] [place], [address] Erythrocyte distribution width (RBC) [Ratio] 18.6 % High 11.6-14.6 [facility] Comment on above: Performed By: #### L 100.0100, L500.4050, L300.3900 #### [facility] [address] [place], [address] Hematocrit (Bld) [Volume fraction] 40.9 % Normal 40-54 [facility] Comment on above: Performed By: #### L 100.0100, L500.4050, L300.3900 #### [facility] [address] [place], [address] Hemoglobin (Bld) [Mass/Vol] 13.1 g/dL Normal 13.0-16.5 [facility] Comment on above: Performed By: #### L 100.0100, L500.4050, L300.3900 #### [facility] [address] [place], [address] IG% 0.600 Normal 0.0-0.9 [facility] Comment on above: Result Comment: IG% - Immature Granulocytes (promyelocytes, myelocytes and metamyelocytes) > 1% indicates that a LEFT SHIFT is Present. Performed By: #### L 100.0100, L500.4050, L300.3900 #### [facility] [address] [place], [address] Lymphocytes/100 WBC (Bld) 12.1 % Low 19-41 [facility] Comment on above: Performed By: #### L 100.0100, L500.4050, L300.3900 #### [facility] [address] [place], [address] MCH (RBC) [Entitic mass] 26.7 pg Low 27.0-32.0 [facility] Comment on above: Performed By: #### L 100.0100, L500.4050, L300.3900 #### [facility] [address] [place], [address] MCHC (RBC) [Mass/Vol] 32.0 g/dL Normal 32-36 [facility] Comment on above: Performed By: #### L 100.0100, L500.4050, L300.3900 #### [facility] [address] [place], [address] MCV (RBC) [Entitic vol] 83.3 fL Normal 80-94 [facility] Comment on above: Performed By: #### L 100.0100, L500.4050, L300.3900 #### [facility] [address] [place], [address] Monocytes/100 WBC (Bld) 8.9 % Normal 0-10 [facility] Comment on above: Performed By: #### L 100.0100, L500.4050, L300.3900 #### [facility] [address] [place], [address] Neutrophils/100 WBC (Bld) 76.3 % High 47-70 [facility] Comment on above: Performed By: #### L 100.0100, L500.4050, L300.3900 #### [facility] [address] [place], [address] Nucleated RBC (Bld) [#/Vol] 0 10*3/uL Normal 0-5 [facility] Comment on above: Performed By: #### L 100.0100, L500.4050, L300.3900 #### [facility] [address] [place], [address] Platelet mean volume (Bld) [Entitic vol] 10.0 fL Normal 6.2-12.0 [facility] Comment on above: Performed By: #### L 100.0100, L500.4050, L300.3900 #### [facility] [address] [place], [address] Platelets (Bld) [#/Vol] 288 10*3/uL Normal 150-450 [facility] Comment on above: Performed By: #### L 100.0100, L500.4050, L300.3900 #### [facility] [address] [place], [address] RBC (Bld) [#/Vol] 4.91 10*6/uL Normal 4.6-6.2 [facility] Comment on above: Performed By: #### L 100.0100, L500.4050, L300.3900 #### [facility] [address] [place], [address] RDW SD 55.6 fl High 35.1-43.9 [facility] Comment on above: Performed By: #### L 100.0100, L500.4050, L300.3900 #### [facility] [address] [place], [address] WBC (Bld) [#/Vol] 8.5 10*3/uL Normal 4.4-11.0 [facility] Comment on above: Performed By: #### L 100.0100, L500.4050, L300.3900 #### [facility] [address] [place], [address] Carbon dioxide measurementOr dered By: Alexander Steiner on 03-06-2024 CO2 [Moles/Vol] 23.0 mmol/L 21.0-32.0 [facility] Chloride measurementOrdered By: Alexander Steiner on 03-06-2024 Chloride [Moles/Vol] 112 mmol/L High 98-[address] [facility] Comprehensive Metabolic Prof ilon 03-06-2024 Albumin [Mass/Vol] 3.5 g/dL Normal 3.2-5.0 [facility] Comment on above: Performed By: #### L 100.0100, L500.4050, L300.3900 #### [facility] [address] [place], [address] Albumin/Globulin [Mass ratio] 0.9 {ratio} Normal 0.9-2.4 [facility] Comment on above: Performed By: #### L 100.0100, L500.4050, L300.3900 #### [facility] [address] [place], [address] ALK P 119 U/L High 45-117 [facility] Comment on above: Performed By: #### L 100.0100, L500.4050, L300.3900 #### [facility] [address] [place], [address] ALT [Catalytic activity/Vol] 19 U/L Normal 16-61 [facility] Comment on above: Performed By: #### L 100.0100, L500.4050, L300.3900 #### [facility] [address] [place], [address] AST [Catalytic activity/Vol] 11 U/L Low 15-37 [facility] Comment on above: Performed By: #### L 100.0100, L500.4050, L300.3900 #### [facility] [address] [place], [address] Bilirubin [Mass/Vol] 0.70 mg/dL Normal 0.20-1.[address] [facility] Comment on above: Result Comment: For patients on eltrombopag therapy, use of Dimension [place] TBIL is not recommended. Performed By: #### L 100.0100, L500.4050, L300.3900 #### [facility] [address] [place], [address] BUN/CRE 15.6 RATIO Normal 10-20 [facility] Comment on above: Performed By: #### L 100.0100, L500.4050, L300.3900 #### [facility] [address] [place], [address] CA,Total 9.7 mg/dL Normal 8.5-10.1 [facility] Comment on above: Performed By: #### L 100.0100, L500.4050, L300.3900 #### [facility] [address] [place], [address] Chloride [Moles/Vol] 112 mmol/L High 98-[address] [facility] Comment on above: Performed By: #### L 100.0100, L500.4050, L300.3900 #### [facility] [address] [place], [address] CO2 [Moles/Vol] 23.0 mmol/L Normal 21.0-32.0 [facility] Comment on above: Performed By: #### L 100.0100, L500.4050, L300.3900 #### [facility] [address] [place], [address] Creatinine [Mass/Vol] 0.84 mg/dL Normal 0.70-1.30 [facility] Comment on above: Result Comment: The validity of the calculated GFR GFRAA in patients over 70 years has not been determined. Clinical correlation is essential. Performed By: #### L 100.0100, L500.4050, L300.3900 #### [facility] [address] [place], [address] EST GFR - AA 113 mL/min Normal >60 [facility] Comment on above: Result Comment: Afri can [place] GFR Calc Performed By: #### L 100.0100, L500.4050, L300.3900 #### [facility] [address] [place], [address] GAP 7 Normal 5-15 [facility] Comment on above: Performed By: #### L 100.0100, L500.4050, L300.3900 #### [facility] [address] [place], [address] GFR/1.73 sq M.predicted among non-blacks MDRD (S/P/Bld) [Vol rate/Area] 94 mL/min/{1.73_m2} Normal >60 [facility] Comment on above: Result Comment: Non- GFR Calc Performed By: #### L 100.0100, L500.4050, L300.3900 #### [facility] [address] [place], [address] Globulin (S) [Mass/Vol] 3.9 g/dL Normal 2.2-4.2 [facility] Comment on above: Performed By: #### L 100.0100, L500.4050, L300.3900 #### [facility] [address] [place], [address] Glucose [Mass/Vol] 107 mg/dL High 74-106 [facility] Comment on above: Result Comment: Fast ing Glucose result from 100 to 125 mg/dL suggests IMPAIRED HOMEOSTASIS per A.D.A. criteria. Performed By: #### L 100.0100, L500.4050, L300.3900 #### [facility] [address] [place], [address] Potassium [Moles/Vol] 3.8 mmol/L Normal 3.5-5.1 [facility] Comment on above: Performed By: #### L 100.0100, L500.4050, L300.3900 #### [facility] [address] [place], [address] Sodium [Moles/Vol] 141 mmol/L Normal 136-145 [facility] Comment on above: Performed By: #### L 100.0100, L500.4050, L300.3900 #### [facility] [address] [place], [address] T PROT 7.4 g/dL Normal 6.4-8.2 [facility] Comment on above: Performed By: #### L 100.0100, L500.4050, L300.3900 #### [facility] [address] [place], [address] Urea nitrogen [Mass/Vol] 13 mg/dL Normal 7-18 [facility] Comment on above: Performed By: #### L 100.0100, L500.4050, L300.3900 #### [facility] [address] [place], [place], [address] Eosinophil percentageOrdered By: Alexander Steiner on 03-06-2024 Eosinophils/100 WBC (Bld) 1.2 % 0-5 [facility] Erythrocyte distribution wid th ratioOrdered By: Alexander Steiner on 03-06-2024 Erythrocyte distribution width (RBC) [Ratio] 18.6 % High 11.6-14.6 [facility] Erythrocyte distribution wid th standard deviationOrdered By: Alexander Steiner on 03-06-2024 Erythrocyte distribution width (RBC) [Entitic vol] 55.6 fL High 35.1-43.9 [facility] Estimated glomerular filtrat ion rate (GFR) AmericanOrdered By: Alexander Steiner on 03-06-2024 Estimated GFR (MDRD) Amer 113 mL/min >60 [facility] Comment on above: GFR Calc Glomerular filtration rate ( GFR) estimationOrdered By: Alexander Steiner 03-06-2024 Estimated GFR (MDRD) Non-Af Amer 94 mL/min >60 [facility] Comment on above: Non- GFR Calc Glucose measurementOrdered B y: Aelxander Steiner on 03-06-2024 Glucose [Mass/Vol] 107 mg/dL High 74-106 [facility] Comment on above: Fasting Glucose resu lt from 100 to 125 mg/dL suggests IMPAIRED HOMEOSTASIS per A.D.A. criteria. Hematocrit Auto (Bld) [Volum e fraction]Ordered By: Alexander Steiner on 03-06-2024 Hematocrit (Bld) [Volume fraction] 40.9 % 40-54 [facility] Hemoglobin measurementOrdere d By: Alexander Steiner 03-06-2024 Hemoglobin (Bld) [Mass/Vol] 13.1 g/dL 13.0-16.5 [facility] High density lipoprotein (HD L) measurementOrdered By: Alexander Jatin 03-06-2024 Cholesterol in HDL [Mass/Vol] 83 mg/dL >40 [facility] Comment on above: The drugs N-Acetylcy steine and Metamizole may falsely depress this assay. Reference Range HDL <40 mg/dL Low HDL Cholesterol HDL >or= 60 mg/dL High HDL Cholesterol Immature granulocytes/100 WB C Auto (Bld)Ordered By: Alexander Steiner on 03-06-2024 Immature granulocytes/100 WBC (Bld) 0.600 % 0.0-0.9 [facility] Comment on above: IG% - Immature Granu locytes (promyelocytes, myelocytes and metamyelocytes) > 1% indicates that a LEFT SHIFT is Present. Laboratory - Chemistry and C hemistry - challengeOrdered By: Alexander Steiner on 03-06-2024 AST [Catalytic activity/Vol] 11 U/L Low 15-37 [facility] Lipid Profileon 03-06-2024 Cholesterol [Mass/Vol] 173 mg/dL Normal 200 [facility] Comment on above: Result Comment: <200 mg/dL Desirable 200-240 mg/dL Borderline >240 mg/dL High Risk Performed By: #### L 100.0100, L500.4050, L300.3900 #### [facility] [address] [place], [address] Cholesterol in HDL [Mass/Vol] 83 mg/dL Normal [facility] Comment on above: Result Comment: The drugs N-Acetylcysteine and Metamizole may falsely depress this assay. Reference Range HDL <40 mg/dL Low HDL Cholesterol HDL >or= 60 mg/dL High HDL Cholesterol Performed By: #### L 100.0100, L500.4050, L300.3900 #### [facility] [address] [place], [address] Cholesterol in LDL [Mass/Vol] 75 mg/dL Normal 0-130 [facility] Comment on above: Performed By: #### L 100.0100, L500.4050, L300.3900 #### [facility] [address] [place], [address] Cholesterol in VLDL [Mass/Vol] 15 mg/dL Normal 5-40 [facility] Comment on above: Performed By: #### L 100.0100, L500.4050, L300.3900 #### [facility] [address] [place], [address] Triglyceride [Mass/Vol] 74 mg/dL Normal [facility] Comment on above: Result Comment: The drugs N-Acetylcysteine and Metamizole may falsely depress this assay. Serum Triglycerides Reference Interval Normal <150 mg/dL Borderline high 150 - 199 mg/dL High 200 - 499 mg/dL Very High > or = 500 mg/dL Performed By: #### L 100.0100, L500.4050, L300.3900 #### [facility] [address] [place], [place], [address] Low density lipoprotein (LDL ) cholesterol measurementOrdered By: Alexander Steiner on 03-06-2024 Cholesterol in LDL [Mass/Vol] 75 mg/dL 0-130 [facility] Lymphocytes Auto (Unsp spec) [#/Vol]Ordered By: Alexander Steiner on 03-06-2024 Lymphocytes (Bld) [#/Vol] 1.02 10*3/uL 0.83-4.51 [facility] Lymphocytes/100 WBC Auto (Un sp spec)Ordered By: Alexander Steiner on 03-06-2024 Lymphocytes/100 WBC (Bld) 12.1 % Low 19-41 [facility] MCV (mean corpuscular volume ) determinationOrdered By: Alexander Steiner on 03-06-2024 MCV (RBC) [Entitic vol] 83.3 fL 80-94 [facility] Mean corpuscular hemoglobin (MCH) determinationOrdered By: Alexander Steiner on 03-06-2024 MCH (RBC) [Entitic mass] 26.7 pg Low 27.0-32.0 [facility] Mean corpuscular hemoglobin concentration (MCHC) determinationOrdered By: Alexander Steiner on 03-06-2024 MCHC (RBC) [Mass/Vol] 32.0 g/dL 32-36 [facility] Mean platelet volume determi nationOrdered By: Alexander Steiner on 03-06-2024 Platelet mean volume (Bld) [Entitic vol] 10.0 fL 6.2-12.0 [facility] Monocyte percentageOrdered B y: Alexander Steiner on 03-06-2024 Monocytes/100 WBC (Bld) 8.9 % 0-10 [facility] Neutrophil percentageOrdered By: Alexander Packerok on 03-06-2024 Neutrophils/100 WBC (Bld) 76.3 % High 47-70 [facility] Nucleated red blood cell per centageOrdered By: Alexander Steiner on 03-06-2024 Nucleated RBC/100 WBC (Bld) [Ratio] 0 % 0-5 [facility] Platelet countOrdered By: Emmett Steiner on 03-06-2024 Platelets (Bld) [#/Vol] 288 10*3/uL 150-450 [facility] Potassium measurementOrdered By: Alexander Steiner on 03-06-2024 Potassium [Moles/Vol] 3.8 mmol/L 3.5-5.1 [facility] RBC Auto (Bld) [#/Vol]Ordere d By: Alexander Steiner on 03-06-2024 RBC (Bld) [#/Vol] 4.91 10*6/uL 4.6-6.2 [facility] Serum anion gap measurementO rdered By: Alexander Steiner on 03-06-2024 Anion gap [Moles/Vol] 7 mmol/L 5-15 [facility] Serum globulin measurementOr dered By: Alexander Steiner on 03-06-2024 Globulin (S) [Mass/Vol] 3.9 g/dL 2.2-4.2 [facility] Serum or plasma alanine luna otransferase (ALT) measurementOrdered By: Alexander Steiner 03-06-2024 ALT [Catalytic activity/Vol] 19 U/L 16-61 [facility] Serum or plasma albumin maddie urement (mass/volume)Ordered By: Alexander Steiner on 03-06-2024 Albumin [Mass/Vol] 3.5 g/dL 3.2-5.0 [facility] Serum or plasma alkaline cheryl sphatase measurementOrdered By: Alexander Steiner on 03-06-2024 ALP [Catalytic activity/Vol] 119 U/L High 45-117 [facility] Serum or plasma calcium maddie urement (mass/volume)Ordered By: Alexander Steiner on 03-06-2024 Calcium [Mass/Vol] 9.7 mg/dL 8.5-10.1 [facility] Serum or plasma cholesterol measurement (mass/volume)Ordered By: Alexander Steiner on 03-06-2024 Cholesterol [Mass/Vol] 173 mg/dL <200 [facility] Comment on above: <200 mg/dL Desirable 200-240 mg/dL Borderline >240 mg/dL High Risk Serum or plasma creatinine m easurement (mass/volume)Ordered By: Alexander Steiner on 03-06-2024 Creatinine [Mass/Vol] 0.84 mg/dL 0.70-1.30 [facility] Comment on above: The validity of the calculated GFR & GFRAA in patients over 70 years has not been determined. Clinical correlation is essential. Serum or plasma urea nitroge n measurement (mass/volume)Ordered By: Alexander Steiner on 03-06-2024 Urea nitrogen [Mass/Vol] 13 mg/dL 7-18 [facility] Sodium levelOrdered By: Alexander Steiner on 03-06-2024 Sodium [Moles/Vol] 141 mmol/L 136-145 [facility] TSH QnOrdered By: Alexander Steiner o n 03-06-2024 Thyroid Stimulating Hormone (TSH) 0.709 uIU/mL 0.358-3.74 0 [facility] Thyroid Stim Hormone (TSH)on 03-06-2024 TSH 0.709 uIU/mL Normal 0.358-3.74 0 [facility] Comment on above: Performed By: #### L 100.0100, L500.4050, L300.3900 #### [facility] [address] [place] [address]. [place], [address] Total proteinOrdered By: Alexander Steiner on 03-06-2024 Protein [Mass/Vol] 7.4 g/dL 6.4-8.2 [facility] Triglycerides measurementOrd ered By: Alexander Steiner on 03-06-2024 Triglyceride [Mass/Vol] 74 mg/dL <199 [facility] Comment on above: The drugs N-Acetylcy steine and Metamizole may falsely depress this assay.Serum Triglycerides Reference Interval Normal <150 mg/dL Borderline high 150 - 199 mg/dL High 200 - 499 mg/dL Very High > or = 500 mg/dL Very low density lipoprotein (VLDL) cholesterol measurementOrdered By: Alexander Steiner on 03-06-2024 VLDL Cholesterol 15 mg/dL 5-40 [facility] Vitamin D,25 Hydroxyon 03-06 Vitamin D 25-OH 27.4 ng/mL Normal [facility] Comment on above: Result Comment: Snow min D 25(OH) Status Range Deficiency <20 ng/mL (50nmol/L) Insufficiency 20 - 30 ng/mL (50 - 75 nmol/L) Sufficiency 30 - 100 ng/mL (75 - 250 nmol/L) Toxicity >100 ng/mL (>250 nmol/L) Performed By: #### L 100.0100, L500.4050, L300.3900 #### [facility] [address] [place], [address] White blood cell (WBC) count Ordered By: Alexander Steiner on 03-06-2024 WBC (Bld) [#/Vol] 8.5 10*3/uL 4.4-11.0 [facility] Radiation Oncology Visiton 1 05-01-2023 Radiation Oncology Visit [facility] [address] [facility] [place] [address] OFFICE VISIT Date of Service: 02/29/24 1131 MR#: [id number] Acct: [id number] Name: MARGAUX SANDERSON Rep #: [id number] : 1940 From: Alejandro Machado DO Age/Sex: 83/M [place] [facility] [place]: [place] Intake Vital Signs 11/28/23 10:23 [...] mcg inhalation 11/28/23 02/29/24 History for nebulization (Yupelri) roflumilast 500 mcg [...] Unknown History (more content not included)... Normal [facility] Chest without Contraston Chest without Contrast [facility] Imaging Services [address] [place], [place] [address] Chest without Contrast MR#: [id number] Acct: [id number] Name: MARGAUX SANDERSON Rep #: [id number] : 1940 M 83 From: Zhou Altman MD PCP: Dr. Alexander Steiner MD Status: DEP CLI Study: Chest without Contrast Date of Exam: 02/26/24 Exam# [id number] Ordering Dr: Alejandro Machado DO [id number] EXAM: CT CHEST WITHOUT INTRAVENOUS CONTRAST CLINICAL [...] Alejandro Machado DO; Dr. Alexander Steiner MD Bridge Repairer: Signed Normal [facility] Orthopedic Visit Reporton Orthopedic Visit Report [facility] [place] [address] OFFICE VISIT Date of Service: 02/19/24 MR#: [id number] Acct: [id number] Name: MARGAUX SANDERSON Rep #: [id number] : 1940 Provider: Dr. Gregory iqbal MD Age/Sex: 83/M Location[place] [facility] [place] Status: Signed with Addenda ADDENDUM by FRANKY [...] Performing Provider: Gregory Rodriguez MD Performing Location: [facility] Administered by: Gregory Rodriguez MD on 02/19/24 11:19 Dose Route Admin Location Dispensed Lot Number Expiration Date LAC Man ufacturer 80 mg intra-articular Right Shoulder 2 mL [id number] 07/25/25 9758-4715-97 [facility] Date cc: * Signed Intake Vital [...] mcg inhalation 11/28/23 02/19/24 History for nebulization (Yugilles) roflumilast 500 mcg tablet 500 mcg PO [...] of es (more content not included)... Normal [facility] Absolute lymphocyte countOrd ered By: Alexander Steiner on 04-04-2023 Lymphocytes Auto (Unsp spec) [#/Vol] 0.77 10*3/uL 0.83-4.51 [facility] Basophil percentageOrdered B y: Alexander Steiner on 04-04-2023 Basophils/100 WBC (Bld) 1.2 % 0-1 [facility] Eosinophils/100 WBC (Bld) 0.6 % 0-5 [facility] Neutrophils (Bld) [#/Vol] 5.2 10*3/uL 2.0-7.7 [facility] Neutrophils/100 WBC (Bld) 76.4 % 47-70 [facility] WBC (Bld) [#/Vol] 6.8 10*3/uL 4.4-11.0 [facility] Blood erythrocytes count (nu mber/volume)Ordered By: Alexander Steiner on 04-04-2023 RBC (Bld) [#/Vol] 4.82 10*6/uL 4.6-6.2 [facility] Blood hemoglobin measurement (mass/volume)Ordered By: Alexander Steiner on 04-04-2023 Hemoglobin (Bld) [Mass/Vol] 12.6 g/dL 13.0-16.5 [facility] Blood lymphocytes/100 leukoc ytesOrdered By: [facility] on 04-04-2023 Lymphocytes/100 WBC (Bld) 11.4 % 19-41 [facility] Blood monocytes/100 leukocyt esOrdered [facility]: [facility] Monocytes/100 WBC (Bld) 10.0 % 0-10 [facility] Blood platelet mean volumeOr dered By: [facility] 04-04-[facility]23 Platelet mean volume (Bld) [Entitic vol] 10.5 fL 6.2-12.0 [facility] Determination of erythrocyte mean corpuscular volume (MCV)Ordered By: [facility] on 04-04-2023 MCV (RBC) [Entitic vol] 84.4 fL 80-94 [facility] Hematocrit Auto (Bld) [Volum e fraction]Ordered By: [facility] on 04-04-2023 Hematocrit (Bld) [Volume fraction] 40.7 % 40-54 [facility] - Hematology and Cell countsOrdered By: [facility] on 04-04-2023 Erythrocyte distribution width (RBC) [Entitic vol] 59.4 fL 35.1-43.9 [facility] Erythrocyte distribution width (RBC) [Ratio] 19.6 % 11.6-14.6 [facility] Immature granulocytes/100 WBC (Bld) 0.400 % 0.0-0.9 [facility] Comment on above: IG% - Immature Granu locytes (promyelocytes, myelocytes and metamyelocytes) > 1% indicates that a LEFT SHIFT is Present. MCH (RBC) [Entitic mass] 26.1 pg 27.0-32.0 [facility] Nucleated RBC/100 WBC (Bld) [Ratio] 0 % 0-5 [facility] MCHC Auto (RBC) [Mass/Vol]Or dered By: Alexander Jatin on 04-04-2023 MCHC (RBC) [Mass/Vol] 31.0 g/dL 32-36 [facility] Platelets bldOrdered By: Alexander Steiner on 04-04-2023 Platelets (Bld) [#/Vol] 281 10*3/uL 150-450 [facility] Stool gastrointestinal hemog lobin detection by immunologic methodOrdered By: Alexander Steiner on 03-06-2023 Lower GI hemoglobin IA Ql (Stl) [facility] Absolute lymphocyte countOrd ered By: Alexander Steiner on 03-03-2023 Lymphocytes Auto (Unsp spec) [#/Vol] 0.75 10*3/uL 0.83-4.51 [facility] Basophil percentageOrdered B y: Alexander Steiner on 03-03-2023 Basophils/100 WBC (Bld) 1.8 % 0-1 [facility] Eosinophils/100 WBC (Bld) 2.9 % 0-5 [facility] Neutrophils (Bld) [#/Vol] 3.9 10*3/uL 2.0-7.7 [facility] Neutrophils/100 WBC (Bld) 70.4 % 47-70 [facility] WBC (Bld) [#/Vol] 5.5 10*3/uL 4.4-11.0 [facility] Blood erythrocytes count (nu mber/volume)Ordered By: Alexander Steiner on 03-03-2023 RBC (Bld) [#/Vol] 4.40 10*6/uL 4.6-6.2 [facility] Blood hemoglobin measurement (mass/volume)Ordered By: Alexander Steiner on 03-03-2023 Hemoglobin (Bld) [Mass/Vol] 11.1 g/dL 13.0-16.5 [facility] Blood lymphocytes/100 leukoc ytesOrdered By: Alexander Steiner on 03-03-2023 Lymphocytes/100 WBC (Bld) 13.7 % 19-41 [facility] Blood monocytes/100 leukocyt esOrdered By: Alexander Steiner on 03-03-2023 Monocytes/100 WBC (Bld) 11.0 % 0-10 [facility] Blood platelet mean volumeOr dered By: Alexander Steiner on 03-03-2023 Platelet mean volume (Bld) [Entitic vol] 10.6 fL 6.2-12.0 [facility] Determination of erythrocyte mean corpuscular volume (MCV)Ordered By: Alexander Steiner on 03-03-2023 MCV (RBC) [Entitic vol] 81.4 fL 80-94 [facility] Hematocrit Auto (Bld) [Volum e fraction]Ordered By: Alexander Jatin on 03-03-2023 Hematocrit (Bld) [Volume fraction] 35.8 % 40-54 [facility] Hemoglobin in reticulocytes (mass per reticulocyte)Ordered By: [facility] Jatin on 03-03-2023 Hemoglobin (Reticulocytes) [Entitic mass] 26.9 pg 30-35 [facility] Iron measurement (mass/mass) [facility] Iron (Unsp spec) [Mass/Mass] 16 ug/dL 65-175 [facility] Laboratory - Chemistry and C hemistry - challengeOrdered By: [facility] 03-03-[facility]23 Cobalamin (Vitamin B12) [Mass/Vol] 536 pg/mL 211-911 [facility] Laboratory - Hematology and Cell countsOrdered By: [facility] on 03-03-2023 Erythrocyte distribution width (RBC) [Entitic vol] 48.5 fL 35.1-43.9 [facility] Erythrocyte distribution width (RBC) [Ratio] 16.3 % 11.6-14.6 [facility] Immature granulocytes/100 WBC (Bld) 0.200 % 0.0-0.9 [facility] Comment on above: IG% - Immature Granu locytes (promyelocytes, myelocytes and metamyelocytes) > 1% indicates that a LEFT SHIFT is Present. MCH (RBC) [Entitic mass] 25.2 pg 27.0-32.0 [facility] Nucleated RBC/100 WBC (Bld) [Ratio] 0 % 0-5 [facility] MCHC Auto (RBC) [Mass/Vol]Or dered By: [facility] on 03-03-2023 MCHC (RBC) [Mass/Vol] 31.0 g/dL 32-36 [facility] No Panel InformationOrdered By: [facility] on 03-03-2023 Immature Reticulocyte Fraction 17.40 % 3.00-15.90 [facility] Reticulocyte Count 1.01 % 0.5-1.5 [facility] Total Iron Binding Capacity 486 ug/dL 250-450 [facility] Platelets bldOrdered By: Alexander Packerok on 03-03-2023 Platelets (Bld) [#/Vol] 255 10*3/uL 150-450 [facility] Serum or plasma ferritin xavi surement (mass/volume)Ordered By: Alexander Steiner on 03-03-2023 Ferritin [Mass/Vol] 7 ng/mL 26-388 [facility] Serum or plasma folate measu rement (mass/volume)Ordered By: Alexander Steiner on 03-03-2023 Folate [Mass/Vol] 15.50 ng/mL 3.1-55.4 [facility] Serum or plasma iron saturat ion measurement (mass fraction)Ordered By: Alexander Steiner on 03-03-2023 Iron saturation [Mass fraction] 3.3 % 15.0-55.0 [facility] Absolute lymphocyte countOrd ered By: Alexander Packerok on 03-02-2023 Lymphocytes Auto (Unsp spec) [#/Vol] 0.81 10*3/uL 0.83-4.51 [facility] Basophil percentageOrdered B y: Alexander Steiner on 03-02-2023 Basophils/100 WBC (Bld) 2.2 % 0-1 [facility] Bilirubin [Mass/Vol] 0.40 mg/dL 0.20-1.[address] [facility] Comment on above: For patients on eltr ombopag therapy, use of Dimension [place] TBIL is not recommended. Chloride [Moles/Vol] 110 mmol/L 98-[address] [facility] Cholesterol [Mass/Vol] 146 mg/dL <200 [facility] Comment on above: <200 mg/dL Desirable 200-240 mg/dL Borderline >240 mg/dL High Risk Eosinophils/100 WBC (Bld) 5.1 % 0-5 [facility] Glucose [Mass/Vol] 101 mg/dL 74-106 [facility] Comment on above: Fasting Glucose resu lt from 100 to 125 mg/dL suggests IMPAIRED HOMEOSTASIS per A.D.A. criteria. Neutrophils (Bld) [#/Vol] 2.7 10*3/uL 2.0-7.7 [facility] Neutrophils/100 WBC (Bld) 59.6 % 47-70 [facility] Potassium [Moles/Vol] 3.7 mmol/L 3.5-5.1 [facility] Protein [Mass/Vol] 7.0 g/dL 6.4-8.2 [facility] Sodium [Moles/Vol] 140 mmol/L 136-145 [facility] Triglyceride [Mass/Vol] 53 mg/dL <199 [facility] Comment on above: The drugs N-Acetylcy steine and Metamizole may falsely depress this assay.Serum Triglycerides Reference Interval Normal <150 mg/dL Borderline high 150 - 199 mg/dL High 200 - 499 mg/dL Very High > or = 500 mg/dL WBC (Bld) [#/Vol] 4.5 10*3/uL 4.4-11.0 [facility] Blood erythrocytes count (nu mber/volume)Ordered By: Alexander Steiner on 03-02-2023 RBC (Bld) [#/Vol] 4.40 10*6/uL 4.6-6.2 [facility] Blood hemoglobin measurement (mass/volume)Ordered By: Alexander Steiner on 03-02-2023 Hemoglobin (Bld) [Mass/Vol] 10.9 g/dL 13.0-16.5 [facility] Blood lymphocytes/100 leukoc ytesOrdered By: Alexander Steiner on 03-02-2023 Lymphocytes/100 WBC (Bld) 17.9 % 19-41 [facility] Blood monocytes/100 leukocyt esOrdered By: Alexander Steiner on 03-02-2023 Monocytes/100 WBC (Bld) 15.0 % 0-10 [facility] Blood platelet mean volumeOr dered By: Alexander Steiner on 03-02-2023 Platelet mean volume (Bld) [Entitic vol] 10.3 fL 6.2-12.0 [facility] Determination of erythrocyte mean corpuscular volume (MCV)Ordered By: Alexander Steiner on 03-02-2023 MCV (RBC) [Entitic vol] 82.3 fL 80-94 [facility] Hematocrit Auto (Bld) [Volum e fraction]Ordered By: Alexander Steiner on 03-02-2023 Hematocrit (Bld) [Volume fraction] 36.2 % 40-54 [facility] Laboratory - Chemistry and C hemistry - challengeOrdered By: Alexander Steiner on 03-02-2023 ALP [Catalytic activity/Vol] 79 U/L 45-117 [facility] ALT [Catalytic activity/Vol] 17 U/L 16-61 [facility] CO2 [Moles/Vol] 23.0 mmol/L 21.0-32.0 [facility] Globulin (S) [Mass/Vol] 3.4 g/dL 2.2-4.2 [facility] Urea nitrogen/Creatinine [Mass ratio] 15.8 mg/mg 10-20 [facility] Laboratory - Hematology and Cell countsOrdered By: Alexander Steiner on 03-02-2023 Erythrocyte distribution width (RBC) [Entitic vol] 49.2 fL 35.1-43.9 [facility] Erythrocyte distribution width (RBC) [Ratio] 16.3 % 11.6-14.6 [facility] Immature granulocytes/100 WBC (Bld) 0.200 % 0.0-0.9 [facility] Comment on above: IG% - Immature Granu locytes (promyelocytes, myelocytes and metamyelocytes) > 1% indicates that a LEFT SHIFT is Present. MCH (RBC) [Entitic mass] 24.8 pg 27.0-32.0 [facility] Nucleated RBC/100 WBC (Bld) [Ratio] 0 % 0-5 [facility] MCHC Auto (RBC) [Mass/Vol]Or dered By: Alexander Steiner on 03-02-2023 MCHC (RBC) [Mass/Vol] 30.1 g/dL 32-36 [facility] No Panel InformationOrdered By: Alexander Steiner on 03-02-2023 Estimated GFR (MDRD) Amer 140 mL/min >60 [facility] Comment on above: GFR Calc Estimated GFR (MDRD) Non-Af Amer 116 mL/min >60 [facility] Comment on above: Non- GFR Calc Thyroid Stimulating Hormone (TSH) 0.57 uIU/mL 0.358-3.74 [facility] Vitamin D 25-Hydroxy 35.7 ng/mL [facility] Comment on above: Vitamin D 25(OH) Sta tus Range Deficiency <20 ng/mL (50nmol/L) Insufficiency 20 - 30 ng/mL (50 - 75 nmol/L) Sufficiency 30 - 100 ng/mL (75 - 250 nmol/L) Toxicity >100 ng/mL (>250 nmol/L) Platelets bldOrdered By: Alexander Steiner on 03-02-2023 Platelets (Bld) [#/Vol] 247 10*3/uL 150-450 [facility] Serum or plasma albumin maddie urement (mass/volume)Ordered By: Alexander Steiner on 03-02-2023 Albumin [Mass/Vol] 3.6 g/dL 3.2-5.0 [facility] Serum or plasma albumin/glob ulin mass ratioOrdered By: Alexander Steiner 03-02-2023 Albumin/Globulin [Mass ratio] 1.1 {ratio} 0.9-2.4 [facility] Serum or plasma calcium maddie urement (mass/volume)Ordered By: Alexander Steiner 03-02-2023 Calcium [Mass/Vol] 8.1 mg/dL 8.5-10.1 [facility] Serum or plasma cholesterol in HDL measurement (mass/volume)Ordered By: Alexander Steiner 03-02-2023 Cholesterol in HDL [Mass/Vol] 74 mg/dL >40 [facility] Comment on above: The drugs N-Acetylcy steine and Metamizole may falsely depress this assay. Reference Range HDL <40 mg/dL Low HDL Cholesterol HDL >or= 60 mg/dL High HDL Cholesterol Serum or plasma cholesterol in VLDL measurement (mass/volume)Ordered By: Alexander Steiner 03-02-2023 Cholesterol in VLDL [Mass/Vol] 11 mg/dL 5-40 [facility] Serum or plasma creatinine m easurement (mass/volume)Ordered By: Alexander Steiner 03-02-2023 Creatinine [Mass/Vol] 0.70 mg/dL 0.70-1.30 [facility] Comment on above: The validity of the calculated GFR & GFRAA in patients over 70 years has not been determined. Clinical correlation is essential. Serum or plasma low density lipoprotein (LDL) cholesterol measurement (mass/volume)Ordered By: Alexander Steiner 03-02-2023 Cholesterol in LDL [Mass/Vol] 61 mg/dL 0-130 [facility] Serum or plasma urea nitroge n measurement (mass/volume)Ordered By: Alexander Steiner 03-02-2023 Urea nitrogen [Mass/Vol] 11 mg/dL 7-18 [facility] Thin prep Papanicolaou smear with manual screeningOrdered By: Alexander Steiner on 03-02-2023 Thin prep Papanicolaou smear with manual screening 18 U/L 15-37 [facility] Thin prep Papanicolaou smear with manual screening 7 5-15 [facility] No Panel InformationOrdered By: Alejandro Machado on 01-04-2023 Estimated GFR (MDRD) Amer 127 mL/min >60 [facility] Comment on above: GFR Calc Estimated GFR (MDRD) Non-Af Amer 105 mL/min >60 [facility] Comment on above: Non- GFR Calc Serum or plasma creatinine m easurement (mass/volume)Ordered By: Alejandro Machado on 01-04-2023 Creatinine [Mass/Vol] 0.76 mg/dL 0.70-1.30 [facility] Comment on above: The validity of the calculated GFR & GFRAA in patients over 70 years has not been determined. Clinical correlation is essential. No Panel InformationOrdered By: Alexander Steiner on 12-27-2022 Thyroid Stimulating Hormone (TSH) 1.15 uIU/mL 0.358-3.74 [facility] CBC,PLATELETSon 12-02-2022 Erythrocyte distribution width (RBC) [Ratio] 15.5 % High 10.9 - 14.3 % [facility] Hematocrit (Bld) [Volume fraction] 38.0 % Low 39.6 - 48.8 % [facility] Hemoglobin (Bld) [Mass/Vol] 12.0 g/dL Low 13.4 - 16.8 g/dL [facility] Interpretation and review of laboratory results Abnormal [facility] MCH (RBC) [Entitic mass] 26.7 pg 26.1 - 33.3 pg [facility] MCHC (RBC) [Mass/Vol] 31.6 g/dL Low 31.9 - 36.5 g/dL [facility] MCV (RBC) [Entitic vol] 84.6 fL 79.0 - 94.5 fL [facility] Platelet mean volume (Bld) [Entitic vol] 10.3 fL 8.7 - 12.3 fL [facility] Platelets (Bld) [#/Vol] 288 10*3/uL 146 - 337 K/uL [facility] RBC (Bld) [#/Vol] 4.49 10*6/uL [facility] WBC (Bld) [#/Vol] 8.71 10*3/uL 3.73 - 10.10 K/uL [facility] GENERAL PROCEDUREon 12-03-19 Reji Goodrich MD - 12/02/2022 7:30 AM EDT BODY INTERVENTIONAL RADIOLOGY PROCEDURE NOTE PROCEDURE INDICATION: Right upper lobe enlarging lung nodule PROCEDURE PERFORMED: CT-guided lung biopsy FINDINGS/TARGET: Right upper raj lung nodule. Total of 6 passes taken. No pneumothorax on post imaging. Reji Goodrich MD 12/02/2022 9:11 AM BAR STEWARD(S): Reji Goodrich MD. CONSENT: Informed consent was obtained prior to the procedure after discussion of the risks, benefits, and alternatives of the procedure, and expected procedure outcomes were discussed with the patient and/or patient relations representative. The consent document was placed in chart. DID THIS PROCEDURE REQUIRE A UNIVERSAL PROTOCOL?: Yes. [place] Protocol is required. Preprocedure verification is complete. [...] Radiology to participate in this patient's care. [facility] Radiology Study observation (narrative) [facility] PT/INR POINT OF CAREon 12-02 Interpretation and review of laboratory results Abnormal [facility] PT/INR (POC Device) 1.4 High 0.9 - 1.1 [facility] Comment on above: INR results performe d by this method may be inaccurate in patients with a hematocrit <20% or >55%. Confirmation of test results by standard coagulation testing in the main clinical laboratory is recommended for these patients. Test performed at ad dress of the patient encounter. [facility] Portable XR Chest Views APon 12-02-2022 [...] I have reviewed and approved this report. [facility] Radiology Study observation (narrative) [facility] Portable XR Chest Views APOr dered By: Edouard Escobar on 12-02-2022 [facility] Work Phone: CT CHEST WITHOUT CONTRASTon 11-11-2022 [...] disease and generalized bilateral centrilobular emphysema. Normal [facility] No Panel InformationOrdered By: Alexander Steiner on 11-01-2022 Thyroid Stimulating Hormone (TSH) 7.41 uIU/mL 0.358-3.74 [facility] Absolute lymphocyte countOrd ered By: Alexander Steiner on 08-31-2022 Lymphocytes Auto (Unsp spec) [#/Vol] 0.84 10*3/uL 0.83-4.51 [facility] Basophil percentageOrdered B y: Alexander Steiner on 08-31-2022 Basophils/100 WBC (Bld) 1.1 % 0-1 [facility] Bilirubin [Mass/Vol] 0.40 mg/dL 0.20-1.[address] [facility] Comment on above: For patients on eltr ombopag therapy, use of Dimension [place] TBIL is not recommended. Chloride [Moles/Vol] 110 mmol/L 98-[address] [facility] Cholesterol [Mass/Vol] 149 mg/dL <200 [facility] Comment on above: <200 mg/dL Desirable 200-240 mg/dL Borderline >240 mg/dL High Risk Eosinophils/100 WBC (Bld) 1.7 % 0-5 [facility] Glucose [Mass/Vol] 124 mg/dL 74-106 [facility] Comment on above: Fasting Glucose resu lt from 100 to 125 mg/dL suggests IMPAIRED HOMEOSTASIS per A.D.A. criteria. Neutrophils (Bld) [#/Vol] 5.5 10*3/uL 2.0-7.7 [facility] Neutrophils/100 WBC (Bld) 76.2 % 47-70 [facility] Potassium [Moles/Vol] 3.7 mmol/L 3.5-5.1 [facility] Protein [Mass/Vol] 7.5 g/dL 6.4-8.2 [facility] Sodium [Moles/Vol] 140 mmol/L 136-145 [facility] Triglyceride [Mass/Vol] 40 mg/dL <199 [facility] Comment on above: The drugs N-Acetylcy steine and Metamizole may falsely depress this assay.Serum Triglycerides Reference Interval Normal <150 mg/dL Borderline high 150 - 199 mg/dL High 200 - 499 mg/dL Very High > or = 500 mg/dL WBC (Bld) [#/Vol] 7.3 10*3/uL 4.4-11.0 [facility] Blood erythrocytes count (nu mber/volume)Ordered By: Alexander Steiner on 08-31-2022 RBC (Bld) [#/Vol] 4.37 10*6/uL 4.6-6.2 [facility] Blood hemoglobin measurement (mass/volume)Ordered By: Alexander Steiner on 08-31-2022 Hemoglobin (Bld) [Mass/Vol] 12.2 g/dL 13.0-16.5 [facility] Blood lymphocytes/100 leukoc ytesOrdered By: Alexander Steiner on 08-31-2022 Lymphocytes/100 WBC (Bld) 11.6 % 19-41 [facility] Blood monocytes/100 leukocyt esOrdered By: Alexander Steiner on 08-31-2022 Monocytes/100 WBC (Bld) 9.1 % 0-10 [facility] Blood platelet mean volumeOr dered By: Alexander Steiner on 08-31-2022 Platelet mean volume (Bld) [Entitic vol] 10.7 fL 6.2-12.0 [facility] Determination of erythrocyte mean corpuscular volume (MCV)Ordered By: Alexander Steiner on 08-31-2022 MCV (RBC) [Entitic vol] 88.1 fL 80-94 [facility] Hematocrit Auto (Bld) [Volum e fraction]Ordered By: Alexander Steiner on 08-31-2022 Hematocrit (Bld) [Volume fraction] 38.5 % 40-54 [facility] Laboratory - Chemistry and C hemistry - challengeOrdered By: Alexander Steiner on 08-31-2022 ALP [Catalytic activity/Vol] 98 U/L 45-117 [facility] ALT [Catalytic activity/Vol] 18 U/L 16-61 [facility] CO2 [Moles/Vol] 23.0 mmol/L 21.0-32.0 [facility] Globulin (S) [Mass/Vol] 3.7 g/dL 2.2-4.2 [facility] Urea nitrogen/Creatinine [Mass ratio] 19.1 mg/mg 10-20 [facility] Laboratory - Hematology and Cell countsOrdered By: Alexander Steiner on 08-31-2022 Erythrocyte distribution width (RBC) [Entitic vol] 53.6 fL 35.1-43.9 [facility] Erythrocyte distribution width (RBC) [Ratio] 16.5 % 11.6-14.6 [facility] Immature granulocytes/100 WBC (Bld) 0.300 % 0.0-0.9 [facility] Comment on above: IG% - Immature Granu locytes (promyelocytes, myelocytes and metamyelocytes) > 1% indicates that a LEFT SHIFT is Present. MCH (RBC) [Entitic mass] 27.9 pg 27.0-32.0 [facility] Nucleated RBC/100 WBC (Bld) [Ratio] 0 % 0-5 [facility] MCHC Auto (RBC) [Mass/Vol]Or dered By: Alexander Steiner on 08-31-2022 MCHC (RBC) [Mass/Vol] 31.7 g/dL 32-36 [facility] No Panel InformationOrdered By: Alexander Steiner on 08-31-2022 Estimated GFR (MDRD) Amer 123 mL/min >60 [facility] Comment on above: GFR Calc Estimated GFR (MDRD) Non-Af Amer 101 mL/min >60 [facility] Comment on above: Non- GFR Calc Thyroid Stimulating Hormone (TSH) 4.32 uIU/mL 0.358-3.74 [facility] Vitamin D 25-Hydroxy 42.4 ng/mL [facility] Comment on above: Vitamin D 25(OH) Sta tus Range Deficiency <20 ng/mL (50nmol/L) Insufficiency 20 - 30 ng/mL (50 - 75 nmol/L) Sufficiency 30 - 100 ng/mL (75 - 250 nmol/L) Toxicity >100 ng/mL (>250 nmol/L) Platelets bldOrdered By: Alexander Steiner on 08-31-2022 Platelets (Bld) [#/Vol] 289 10*3/uL 150-450 [facility] Serum or plasma albumin maddie urement (mass/volume)Ordered By: Alexander Steiner on 08-31-2022 Albumin [Mass/Vol] 3.8 g/dL 3.2-5.0 [facility] Serum or plasma albumin/glob ulin mass ratioOrdered By: Alexander Steiner on 08-31-2022 Albumin/Globulin [Mass ratio] 1.0 {ratio} 0.9-2.4 [facility] Serum or plasma calcium maddie urement (mass/volume)Ordered By: Alexander Steiner on 08-31-2022 Calcium [Mass/Vol] 9.1 mg/dL 8.5-10.1 [facility] Serum or plasma cholesterol in HDL measurement (mass/volume)Ordered By: Alexander Steiner on 08-31-2022 Cholesterol in HDL [Mass/Vol] 81 mg/dL >40 [facility] Comment on above: The drugs N-Acetylcy steine and Metamizole may falsely depress this assay. Reference Range HDL <40 mg/dL Low HDL Cholesterol HDL >or= 60 mg/dL High HDL Cholesterol Serum or plasma cholesterol in VLDL measurement (mass/volume)Ordered By: Alexander Steiner on 08-31-2022 Cholesterol in VLDL [Mass/Vol] 8 mg/dL 5-40 [facility] Serum or plasma creatinine m easurement (mass/volume)Ordered By: Alexander Steiner on 08-31-2022 Creatinine [Mass/Vol] 0.78 mg/dL 0.70-1.30 [facility] Comment on above: The validity of the calculated GFR & GFRAA in patients over 70 years has not been determined. Clinical correlation is essential. Serum or plasma low density lipoprotein (LDL) cholesterol measurement (mass/volume)Ordered By: Alexander Steiner on 08-31-2022 Cholesterol in LDL [Mass/Vol] 60 mg/dL 0-130 [facility] Serum or plasma urea nitroge n measurement (mass/volume)Ordered By: Alexander Steiner on 08-31-2022 Urea nitrogen [Mass/Vol] 15 mg/dL 7-18 [facility] Thin prep Papanicolaou smear with manual screeningOrdered By: Alexander Steiner on 08-31-2022 Thin prep Papanicolaou smear with manual screening 17 U/L 15-37 [facility] Thin prep Papanicolaou smear with manual screening 7 5-15 [facility] Basophil percentageOrdered B y: Dr. Nolen on 08-26-2022 Bilirubin [Mass/Vol] 0.40 mg/dL 0.20-1.[address] [facility] Comment on above: For patients on eltr ombopag therapy, use of Dimension [place] TBIL is not recommended. Chloride [Moles/Vol] 113 mmol/L 98-[address] [facility] Glucose [Mass/Vol] 112 mg/dL 74-106 [facility] Comment on above: Fasting Glucose resu lt from 100 to 125 mg/dL suggests IMPAIRED HOMEOSTASIS per A.D.A. criteria. Potassium [Moles/Vol] 3.7 mmol/L 3.5-5.1 [facility] Protein [Mass/Vol] 7.1 g/dL 6.4-8.2 [facility] Sodium [Moles/Vol] 143 mmol/L 136-145 [facility] Laboratory - Chemistry and C hemistry - challengeOrdered By: Dr. Nolen on 08-26-2022 ALP [Catalytic activity/Vol] 83 U/L 45-117 [facility] ALT [Catalytic activity/Vol] 20 U/L 16-61 [facility] CO2 [Moles/Vol] 22.0 mmol/L 21.0-32.0 [facility] Free T4 [Mass/Vol] 1.23 ng/dL 0.76-1.46 [facility] Globulin (S) [Mass/Vol] 3.2 g/dL 2.2-4.2 [facility] Urea nitrogen/Creatinine [Mass ratio] 16.3 mg/mg 10-20 [facility] No Panel InformationOrdered By: Dr. Nolen on 08-26-2022 Estimated Creatinine Clearance Calc 62.45 ml/min [facility] Estimated GFR (MDRD) Amer 120 mL/min >60 [facility] Comment on above: GFR Calc Estimated GFR (MDRD) Non-Af Amer 99 mL/min >60 [facility] Comment on above: Non- GFR Calc Thyroid Stimulating Hormone (TSH) 4.95 uIU/mL 0.358-3.74 [facility] Vitamin D 25-Hydroxy 35.2 ng/mL [facility] Comment on above: Vitamin D 25(OH) Sta tus Range Deficiency <20 ng/mL (50nmol/L) Insufficiency 20 - 30 ng/mL (50 - 75 nmol/L) Sufficiency 30 - 100 ng/mL (75 - 250 nmol/L) Toxicity >100 ng/mL (>250 nmol/L) Serum or plasma albumin maddie urement (mass/volume)Ordered By: Dr. Nolen on 08-26-2022 Albumin [Mass/Vol] 3.9 g/dL 3.2-5.0 [facility] Serum or plasma albumin/glob ulin mass ratioOrdered By: Dr. Nolen on 08-26-2022 Albumin/Globulin [Mass ratio] 1.2 {ratio} 0.9-2.4 [facility] Serum or plasma calcium maddie urement (mass/volume)Ordered By: Dr. Nolen on 08-26-2022 Calcium [Mass/Vol] 8.8 mg/dL 8.5-10.1 [facility] Serum or plasma creatinine m easurement (mass/volume)Ordered By: Dr. Nolen on 08-26-2022 Creatinine [Mass/Vol] 0.80 mg/dL 0.70-1.30 [facility] Comment on above: The validity of the calculated GFR & GFRAA in patients over 70 years has not been determined. Clinical correlation is essential. Serum or plasma urea nitroge n measurement (mass/volume)Ordered By: Dr. Nolen on 08-26-2022 Urea nitrogen [Mass/Vol] 13 mg/dL 7-18 [facility] Thin prep Papanicolaou smear with manual screeningOrdered By: Dr. Nolen on 08-26-2022 Thin prep Papanicolaou smear with manual screening 17 U/L 15-37 [facility] Thin prep Papanicolaou smear with manual screening 8 5-15 [facility] No Panel InformationOrdered By: Dr. Otto on 07-16-2022 Prostate Specific Antigen Screen 1.90 ng/mL 0.00-4.00 [facility] Comment on above: This test was perfor med using the TPSA assay method for [employer] chemistry system. Values obtained with differentassay methods [...] I have reviewed and approved this report. [facility] Rad[facility] contrastOrdered By: Rafaela Garcia on 11-10-2021 [facility] Work Phone: Absolute lymphocyte counton 08-25-2021 Lymphocytes Auto (Unsp spec) [#/Vol] 1.72 10*3/uL 0.83-4.51 [facility] Work Phone: Basophil percentageon 2021 Basophils/100 WBC (Bld) 1.2 % 0-1 [facility] Work Phone: [phone] Bilirubin [Mass/Vol] 0.40 mg/dL 0.20-1.[address] [facility] Work Phone: Comment on above: For patients on eltr ombopag therapy, use of Dimension [place] TBIL is not recommended. Chloride [Moles/Vol] 107 mmol/L 98-[address] [facility] Work Phone: Eosinophils/100 WBC (Bld) 4.6 % 0-5 [facility] Work Phone: Glucose [Mass/Vol] 106 mg/dL 74-106 [facility] Work Phone: Comment on above: Fasting Glucose resu lt from 100 to 125 mg/dL suggests IMPAIRED HOMEOSTASIS per A.D.A. criteria. Neutrophils (Bld) [#/Vol] 4.1 10*3/uL 2.0-7.7 [facility] Work Phone: [phone] Neutrophils/100 WBC (Bld) 58.8 % 47-70 [facility] Work Phone: Potassium [Moles/Vol] 3.0 mmol/L 3.5-5.1 [facility] Work Phone: Protein [Mass/Vol] 7.3 g/dL 6.4-8.2 [facility] Work Phone: Sodium [Moles/Vol] 142 mmol/L 136-145 [facility] Work Phone: Testosterone [Mass/Vol] 791.07 ng/dL [facility] Work Phone: Comment on above: CENTRAL 90% REFERENC E RANGES MALE AGE <50 197.44 - 669.58 ng/dL MALE AGE > or = 50 187.72 - 684.19 ng/dL FEMALE AGE <50 8.38 - 35.01 ng/dL FEMALE AGE > or = 50 <7.00 - 35.92 ng/dL Effective as of 10/20/20 WBC (Bld) [#/Vol] 6.9 10*3/uL 4.4-11.0 [facility] Work Phone: Blood erythrocytes count (nu mber/volume)on 08-25-2021 RBC (Bld) [#/Vol] 4.60 10*6/uL 4.6-6.2 [facility] Work Phone: Blood hemoglobin measurement (mass/volume)on 08-25-2021 Hemoglobin (Bld) [Mass/Vol] 13.1 g/dL 13.0-16.5 [facility] Work Phone: Blood lymphocytes/100 leukoc yteson 08-25-2021 Lymphocytes/100 WBC (Bld) 25.0 % 19-41 [facility] Work Phone: Blood monocytes/100 leukocyt eson 08-25-2021 Monocytes/100 WBC (Bld) 10.0 % 0-10 [facility] Work Phone: Blood platelet mean volumeon 08-25-2021 Platelet mean volume (Bld) [Entitic vol] 10.5 fL 6.2-12.0 [facility] Work Phone: Determination of erythrocyte mean corpuscular volume (MCV)on 08-25-2021 MCV (RBC) [Entitic vol] 87.4 fL 80-94 [facility] Work Phone: Hematocrit Auto (Bld) [Volum e fraction]on 08-25-2021 Hematocrit (Bld) [Volume fraction] 40.2 % 40-54 [facility] Work Phone: Laboratory - Chemistry and C hemistry - challengeon 08-25-2021 ALP [Catalytic activity/Vol] 102 U/L 45-117 [facility] Work Phone: ALT [Catalytic activity/Vol] 20 U/L 16-61 [facility] Work Phone: CO2 [Moles/Vol] 25.0 mmol/L 21.0-32.0 [facility] Work Phone: Globulin (S) [Mass/Vol] 3.7 g/dL 2.2-4.2 [facility] Work Phone: Urea nitrogen/Creatinine [Mass ratio] 14.8 mg/mg 10-20 [facility] Work Phone: Laboratory - Hematology and Cell countson 08-25-2021 Erythrocyte distribution width (RBC) [Entitic vol] 45.0 fL 35.1-43.9 [facility] Work Phone: Erythrocyte distribution width (RBC) [Ratio] 14.1 % 11.6-14.6 [facility] Work Phone: Immature granulocytes/100 WBC (Bld) 0.400 % 0.0-0.9 [facility] Work Phone: Comment on above: IG% - Immature Granu locytes (promyelocytes, myelocytes and metamyelocytes) > 1% indicates that a LEFT SHIFT is Present. MCH (RBC) [Entitic mass] 28.5 pg 27.0-32.0 [facility] Work Phone: Nucleated RBC/100 WBC (Bld) [Ratio] 0 % 0-5 [facility] Work Phone: MCHC Auto (RBC) [Mass/Vol]on 08-25-2021 MCHC (RBC) [Mass/Vol] 32.6 g/dL 32-36 [facility] Work Phone: No Panel Informationon 08-25 Estimated GFR (MDRD) Amer 118 mL/min >60 [facility] Work Phone: Comment on above: GFR Calc Estimated GFR (MDRD) Non-Af Amer 97 mL/min >60 [facility] Work Phone: Comment on above: Non- GFR Calc Thyroid Stimulating Hormone (TSH) 4.99 uIU/mL 0.358-3.74 [facility] Work Phone: Vitamin D 25-Hydroxy 42.3 ng/mL [facility] Work Phone: Comment on above: Vitamin D 25(OH) Sta tus Range Deficiency <20 ng/mL (50nmol/L) Insufficiency 20 - 30 ng/mL (50 - 75 nmol/L) Sufficiency 30 - 100 ng/mL (75 - 250 nmol/L) Toxicity >100 ng/mL (>250 nmol/L) Platelets bldon 08-25-2021 Platelets (Bld) [#/Vol] 286 10*3/uL 150-450 [facility] Work Phone: Serum or plasma albumin maddie urement (mass/volume)on 08-25-2021 Albumin [Mass/Vol] 3.6 g/dL 3.2-5.0 [facility] Work Phone: Serum or plasma albumin/glob ulin mass ratioon 08-25-2021 Albumin/Globulin [Mass ratio] 1.0 {ratio} 0.9-2.4 [facility] Work Phone: Serum or plasma calcium maddie urement (mass/volume)on 08-25-2021 Calcium [Mass/Vol] 9.2 mg/dL 8.5-10.1 [facility] Work Phone: Serum or plasma creatinine m easurement (mass/volume)on 08-25-2021 Creatinine [Mass/Vol] 0.81 mg/dL 0.70-1.30 [facility] Work Phone: Comment on above: The validity of the calculated GFR & GFRAA in patients over 70 years has not been determined. Clinical correlation is essential. Serum or plasma urea nitroge n measurement (mass/volume)on 08-25-2021 Urea nitrogen [Mass/Vol] 12 mg/dL 7-18 [facility] Work Phone: Thin prep Papanicolaou smear with manual screeningon 08-25-2021 Thin prep Papanicolaou smear with manual screening 18 U/L 15-37 [facility] Work Phone: Thin prep Papanicolaou smear with manual screening 10 5-15 [facility] Work Phone: Basophil percentageon 2021 Bilirubin [Mass/Vol] 0.60 mg/dL 0.20-1.[address] [facility] Work Phone: Comment on above: For patients on eltr ombopag therapy, use of Dimension [place] TBIL is not recommended. Chloride [Moles/Vol] 111 mmol/L 98-[address] [facility] Work Phone: Glucose [Mass/Vol] 96 mg/dL 74-106 [facility] Work Phone: Potassium [Moles/Vol] 4.0 mmol/L 3.5-5.1 [facility] Work Phone: Protein [Mass/Vol] 7.3 g/dL 6.4-8.2 [facility] Work Phone: Sodium [Moles/Vol] 139 mmol/L 136-145 [facility] Work Phone: Laboratory - Chemistry and C hemistry - challengeon 07-09-2021 ALP [Catalytic activity/Vol] 84 U/L 45-117 [facility] Work Phone: ALT [Catalytic activity/Vol] 21 U/L 16-61 [facility] Work Phone: CO2 [Moles/Vol] 23.0 mmol/L 21.0-32.0 [facility] Work Phone: Free T4 [Mass/Vol] 1.35 ng/dL 0.76-1.46 [facility] Work Phone: Globulin (S) [Mass/Vol] 3.4 g/dL 2.2-4.2 [facility] Work Phone: Urea nitrogen/Creatinine [Mass ratio] 14.9 mg/mg 10-20 [facility] Work Phone: No Panel Informationon 07-09 Estimated GFR (MDRD) Amer 119 mL/min >60 [facility] Work Phone: Comment on above: GFR Calc Estimated GFR (MDRD) Non-Af Amer 98 mL/min >60 [facility] Work Phone: Comment on above: Non- GFR Calc Thyroid Stimulating Hormone (TSH) 3.05 uIU/mL 0.358-3.74 [facility] Work Phone: Vitamin D 25-Hydroxy 39.2 ng/mL [facility] Work Phone: Comment on above: Vitamin D 25(OH) Sta tus Range Deficiency <20 ng/mL (50nmol/L) Insufficiency 20 - 30 ng/mL (50 - 75 nmol/L) Sufficiency 30 - 100 ng/mL (75 - 250 nmol/L) Toxicity >100 ng/mL (>250 nmol/L) Serum or plasma albumin maddie urement (mass/volume)on 07-09-2021 Albumin [Mass/Vol] 3.9 g/dL 3.2-5.0 [facility] Work Phone: Serum or plasma albumin/glob ulin mass ratioon 07-09-2021 Albumin/Globulin [Mass ratio] 1.1 {ratio} 0.9-2.4 [facility] Work Phone: Serum or plasma calcium maddie urement (mass/volume)on 07-09-2021 Calcium [Mass/Vol] 8.7 mg/dL 8.5-10.1 [facility] Work Phone: Serum or plasma creatinine m easurement (mass/volume)on 07-09-2021 Creatinine [Mass/Vol] 0.81 mg/dL 0.70-1.30 [facility] Work Phone: Comment on above: The validity of the calculated GFR & GFRAA in patients over 70 years has not been determined. Clinical correlation is essential. Serum or plasma urea nitroge n measurement (mass/volume)on 07-09-2021 Urea nitrogen [Mass/Vol] 12 mg/dL 7-18 [facility] Work Phone: Thin prep Papanicolaou smear with manual screeningon 07-09-2021 Thin prep Papanicolaou smear with manual screening 21 U/L 15 [facility] Work Phone: Thin prep Papanicolaou smear with manual screening 5 5-15 [facility] Work Phone: Laboratory - Chemistry and C hemistry - challengeon 05-11-2021 Free T4 [Mass/Vol] 1.22 ng/dL 0.76-1.46 [facility] Work Phone: No Panel Informationon 05-11 Thyroid Stimulating Hormone (TSH) 6.17 uIU/mL 0.358-3.74 [facility] Work Phone: CT CHEST WITH CONTRASTon [...] wall lesions are identified. Additional Findings: None. 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 [facility] Edouard Escobar M D, PhD - 11/12/2020 [...] wall lesions are identified. Additional Findings: None. Boilermaker Fitter: Boilermaker Fitter imaging reveals no abnormalities not already visible [...] suggestive of benign disease. 2. Interval thyroidectomy. [facility] CT CHEST WITH CONTRASTCoby d By: Edouard Escobar on 11-12-2020 [facility] Work Phone: CREAT/GFRon 11-11-2020 Creatinine [Mass/Vol] 0.67 mg/dL Low 0.70 - 1.30 mg/dL [facility] Est Gfr, (Poc Device) >60 >=60 mL/min/1.7 3 sq m [facility] Interpretation and review of laboratory results Abnormal [facility] Test performed at ad dress of the patient encounter. 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 LOSARTAN ORAL Take 100 mg by mouth once hcer* TERAZOSIN 1 MG CAPSULE Take 1 mg [...] Encounter Status:Closed by RENETTA KOTHARI on 09/02/20 [facility] [place] PET/CT SKULL-THIGH INITon 07-14-2020 NM [...] be communicated with the ordering provider via [employer] staff message or phone message by [facility] within 2 business days of report finalization. ========= Algorithms for management of incidental imaging findings can be found on the [facility] Intranet Sharepoint site at: [email or web address] [email or web address] Bridge Repairer: CORNELL Transcribe Date/Time: Jul 14 2020 8:39A Dictated by : JUAN SHEEHAN MD This examination was interpreted and the report reviewed and electronically signed by: JUAN SHEEHAN MD on Jul 14 2020 9:10AM EST [id number] ACTIONABLE Invalid Interpretation Code [facility] Vital Signs Date Time Vital Sign Value Performing Clinician Facility 12-11-2024 15:28-0400 Body temperature 98.2 [degF] Dr. Alexander Steiner MD Work Phone: [facility] 12-11-2024 15:28-0400 Diastolic blood pressure 70 mm[Hg] Dr. Alexander Steiner MD Work Phone: 2(165)426-593869 [place] [address] 12-11-2024 15:28-0400 Heart rate 80 /min Dr. Alexander Steiner MD Work Phone: 0(469)852-610469 [place] [address] 12-11-2024 15:28-0400 Respiratory rate 30 /min Dr. Alexander Steiner MD Work Phone: 8(262)312-614735 [place] [address] 12-11-2024 15:28-0400 SaO2% (BldA) [Mass fraction] 92 % Dr. Alexander Steiner MD Work Phone: 6(438)400-002435 [place] [address] 12-11-2024 15:28-0400 Systolic blood pressure 139 mm[Hg] Dr. Alexander Steiner MD Work Phone: 2(381)368-726035 [place] [address] 12-11-2024 09:18-0400 Body height 170.[address] Alexander Steiner MD Work Phone: 4(925)497-540135 [place] [address] 12-11-2024 09:18-0400 Body mass index (BMI) [Ratio] 17.6 kg/m2 Dr. Alexander Steiner MD Work Phone: 9(091)487-155635 [place] [address] 12-11-2024 09:18-0400 Body weight [address] Alexander Steiner MD Work Phone: 2(658)903-658835 [place] [address] 12-04-2024 13:25-0400 Body height 170.[address] Alexander Steiner MD Work Phone: 8(673)152-842935 [place] [address] 12-04-2024 13:25-0400 Body mass index (BMI) [Ratio] 18 kg/m2 Dr. Alexander Steiner MD Work Phone: 3(446)564-460535 [place] [address] 12-04-2024 13:25-0400 Body weight 52.[address] Alexander Steiner MD Work Phone: 3(828)072-445035 [place] [address] 12-04-2024 13:25-0400 Diastolic blood pressure 70 mm[Hg] Dr. Alexander Steiner MD Work Phone: 2(685)624-261535 [place] [address] 12-04-2024 13:25-0400 Heart rate 105 /min Dr. Alexander Steiner MD Work Phone: [facility] 12-04-2024 13:25-0400 Respiratory rate 18 /min Dr. Alexander Steiner MD Work Phone: [facility] 12-04-2024 13:25-0400 SaO2% (BldA) [Mass fraction] 98 % Dr. Alexander Steiner MD Work Phone: [facility] 12-04-2024 13:25-0400 Systolic blood pressure 127 mm[Hg] Dr. Alexander Steiner MD Work Phone: 4(206)399-684169 [place] [address] 12-02-2024 13:31-0400 Diastolic blood pressure 78 mm[Hg] Dr. Alexander Steiner MD Work Phone: 8(458)837-228369 [place] [address] 12-02-2024 13:31-0400 Heart rate 72 /min Dr. Alexander Steiner MD Work Phone: 2(536)528-050165 [address] 12-02-2024 13:31-0400 Respiratory rate 16 /min Dr. Alexander Steiner MD Work Phone: [facility] 12-02-2024 13:31-0400 Systolic blood pressure 150 mm[Hg] Dr. Alexander Steiner MD Work Phone: 3(378)668-977769 [place] [address] 12-02-2024 12:59-0400 Body temperature 97 [degF] Dr. Alexander Steiner MD Work Phone: 1(544)731-911969 [place] [address] 12-02-2024 12:59-0400 SaO2% (BldA) [Mass fraction] 99 % Dr. Alexander Steiner MD Work Phone: [facility] 12-02-2024 09:16-0400 Body mass index (BMI) [Ratio] 18.1 kg/m2 Dr. Alexander Steiner MD Work Phone: [facility] 12-02-2024 09:16-0400 Body weight 52.[address] Alexander Steiner MD Work Phone: [facility] 11-15-2024 10:24-0400 Diastolic blood pressure 71 mm[Hg] Saurav Machuca MD Work Phone: [facility] 11-15-2024 10:24-0400 Heart rate 56 /min Saurav Machuca MD Work Phone: [facility] 11-15-2024 10:24-0400 SaO2% (BldA) [Mass fraction] 95 % Saurav Machuca MD Work Phone: [facility] 11-15-2024 10:24-0400 Systolic blood pressure 144 mm[Hg] Saurav Machuca MD Work Phone: [facility] 11-15-2024 09:44-0400 Respiratory rate 16 /min Saurav Machuca MD Work Phone: [facility] 11-15-2024 07:20-0400 Body mass index (BMI) [Ratio] 18.61 kg/m2 Saurav Machuca MD Work Phone: [facility] 11-15-2024 07:20-0400 Body temperature 98.2 [degF] Saurav Machuca MD Work Phone: [facility] 11-15-2024 07:20-0400 Body weight 53.9 kg Saurav Machuca MD Work Phone: [facility] 10-31-2024 13:05-0400 Body height 170.[address] Alexander Steiner MD Work Phone: [facility] 10-31-2024 13:05-0400 Body mass index (BMI) [Ratio] 18.2 kg/m2 Dr. Alexander Steiner MD Work Phone: [facility] 10-31-2024 13:05-0400 Body temperature 97.4 [degF] Dr. Alexander Steiner MD Work Phone: [facility] 10-31-2024 13:05-0400 Body weight 52.[address] Alexander Steiner MD Work Phone: [facility] 10-31-2024 13:05-0400 Diastolic blood pressure 69 mm[Hg] Dr. Alexander Steiner MD Work Phone: [facility] 10-31-2024 13:05-0400 Heart rate 74 /min Dr. Alexander Steiner MD Work Phone: [facility] 10-31-2024 13:05-0400 Respiratory rate 14 /min Dr. Alexander Steiner MD Work Phone: [facility] 10-31-2024 13:05-0400 SaO2% (BldA) [Mass fraction] 97 % Dr. Alexander Steiner MD Work Phone: 8(666)336-020569 [place] [address] 10-31-2024 13:05-0400 Systolic blood pressure 172 mm[Hg] Dr. Alexander Steiner MD Work Phone: 9(578)648-312665 [address] 10-21-2024 11:04-0400 Body temperature 96.5 [degF] Dr. Alexander Steiner MD Work Phone: 3(477)546-557135 [place] [address] 10-21-2024 11:04-0400 Diastolic blood pressure 55 mm[Hg] Dr. Alexander Steiner MD Work Phone: 0(141)546-611569 [place] [address] 10-21-2024 11:04-0400 Heart rate 61 /min Dr. Alexander Steiner MD Work Phone: 2(654)736-403969 [place] [address] 10-21-2024 11:04-0400 Respiratory rate 16 /min Dr. Alexander Steiner MD Work Phone: [facility] 10-21-2024 11:04-0400 SaO2% (BldA) [Mass fraction] 100 % Dr. Alexander Steiner MD Work Phone: [facility] 10-21-2024 11:04-0400 Systolic blood pressure 148 mm[Hg] Dr. Alexander Steiner MD Work Phone: [facility] 10-21-2024 10:12-0400 Body height 170.[address] Alexander Steiner MD Work Phone: 4(437)884-836869 [place] [address] 10-21-2024 10:12-0400 Body mass index (BMI) [Ratio] 18.8 kg/m2 Dr. Alexander Steiner MD Work Phone: 0(865)132-238869 [place] [address] 10-21-2024 10:12-0400 Body weight 54.[address] Alexander Steiner MD Work Phone: [facility] 09-30-2024 11:32-0400 Body height 170.2 cm Valerie Arnie PIPE ROLLER.CARTON FOLDER Work Phone: [facility] 09-30-2024 11:32-0400 Body mass index (BMI) [Ratio] 18.61 kg/m2 Valerie Arnie PIPE ROLLER.CARTON FOLDER Work Phone: [facility] 09-30-2024 11:32-0400 Body temperature 97.5 [degF] Valerie Arnie PIPE ROLLER.CARTON FOLDER Work Phone: [facility] 09-30-2024 11:32-0400 Body weight 53.89 kg Valerie Arnie PIPE ROLLER.CARTON FOLDER Work Phone: [facility] 09-30-2024 11:32-0400 Diastolic blood pressure 68 mm[Hg] Valerie Arnie PIPE ROLLER.CARTON FOLDER Work Phone: [facility] 09-30-2024 11:32-0400 SaO2% (BldA) [Mass fraction] 98 % Valerie Arnie PIPE ROLLER.CARTON FOLDER Work Phone: [facility] 09-30-2024 11:32-0400 Systolic blood pressure 124 mm[Hg] Valerie Arnie PIPE ROLLER.CARTON FOLDER Work Phone: [facility] 2024 14:26-0400 Body temperature 98.4 [degF] Dr. Alexander Steiner MD Work Phone: [facility] 2024 14:26-0400 Diastolic blood pressure 58 mm[Hg] Dr. Alexander Steiner MD Work Phone: [facility] 2024 14:26-0400 Heart rate 88 /min Dr. Alexander Steiner MD Work Phone: [facility] 2024 14:26-0400 Respiratory rate 14 /min Dr. Alexander Steiner MD Work Phone: [facility] 2024 14:26-0400 SaO2% (BldA) [Mass fraction] 96 % Dr. Alexander Steiner MD Work Phone: 4(740)853-783769 [place] [address] 2024 14:26-0400 Systolic blood pressure 102 mm[Hg] Dr. Alexander Steiner MD Work Phone: 7(736)363-827235 [place] [address] 08-29-2024 07:21-0400 Body mass index (BMI) [Ratio] 18.8 kg/m2 Dr. Alexander Steiner MD Work Phone: 4(081)938-098235 [place] [address] 08-29-2024 07:21-0400 Body weight 54.[address] Alexander Steiner MD Work Phone: 5(567)318-886335 [place] [address] 08-29-2024 07:21-0400 Diastolic blood pressure 77 mm[Hg] Dr. Alexander Steiner MD Work Phone: 7(185)976-067635 [place] [address] 08-29-2024 07:21-0400 Heart rate 93 /min Dr. Alexander Steiner MD Work Phone: 1(469)655-527035 [place] [address] 08-29-2024 07:21-0400 Respiratory rate 18 /min Dr. Alexander Steiner MD Work Phone: 8(485)979-574835 [place] [address] 08-29-2024 07:21-0400 SaO2% (BldA) [Mass fraction] 97 % Dr. Alexander Steiner MD Work Phone: 8(534)481-736335 [place] [address] 08-29-2024 07:21-0400 Systolic blood pressure 126 mm[Hg] Dr. Alexander Steiner MD Work Phone: 0(622)517-643335 [place] [address] 07-08-2024 11:09-0400 Body height 170.[address] Alexander Steiner MD Work Phone: 3(420)356-687435 [place] [address] 07-08-2024 11:09-0400 Body mass index (BMI) [Ratio] 19.1 kg/m2 Dr. Alexander Steiner MD Work Phone: 0(126)192-676635 [place] [address] 07-08-2024 11:09-0400 Body temperature 98.1 [degF] Dr. Alexander Steiner MD Work Phone: 1(539)682-884135 [place] [address] 07-08-2024 11:09-0400 Body weight 55.[address] Alexander Steiner MD Work Phone: [facility] 07-08-2024 11:09-0400 Diastolic blood pressure 72 mm[Hg] Dr. Alexander Steiner MD Work Phone: [facility] 07-08-2024 11:09-0400 Heart rate 83 /min Dr. Alexander Steiner MD Work Phone: [facility] 07-08-2024 11:09-0400 Respiratory rate 16 /min Dr. Alexander Steiner MD Work Phone: [facility] 07-08-2024 11:09-0400 SaO2% (BldA) [Mass fraction] 98 % Dr. Alexander Steiner MD Work Phone: [facility] 07-08-2024 11:09-0400 Systolic blood pressure 138 mm[Hg] Dr. Alexander Steiner MD Work Phone: [facility] 02-29-2024 11:32-0500 Body height 170.[address] Alejandro Machado DO Work Phone: [facility] 02-29-2024 11:32-0500 Body mass index (BMI) [Ratio] 20.2 kg/m2 Dr. Alejandro Machado DO Work Phone: [facility] 02-29-2024 11:32-0500 Body temperature 97.4 [degF] Dr. Alejandro Machado DO Work Phone: [facility] 02-29-2024 11:32-0500 Body weight 58.[address] Alejandro Machado DO Work Phone: [facility] 02-29-2024 11:32-0500 Diastolic blood pressure 73 mm[Hg] Dr. Alejandro Machado DO Work Phone: [facility] 02-29-2024 11:32-0500 Heart rate 76 /min Dr. Alejandro Machado DO Work Phone: [facility] 02-29-2024 11:32-0500 Respiratory rate 18 /min Dr. Alejandro Machado DO Work Phone: [facility] 02-29-2024 11:32-0500 SaO2% (BldA) [Mass fraction] 98 % Dr. Alejandro Machado DO Work Phone: [facility] 02-29-2024 11:32-0500 Systolic blood pressure 121 mm[Hg] Dr. Alejandro Machado DO Work Phone: [facility] 07-27-2023 10:00-0400 Body height 170.[address] Alexander Steiner Work Phone: [facility] 07-27-2023 10:00-0400 Body mass index (BMI) [Ratio] 20.4 kg/m2 Dr. Alexander Steiner Work Phone: [facility] 07-27-2023 10:00-0400 Body temperature 98.8 [degF] Dr. Alexander Steiner Work Phone: [facility] 07-27-2023 10:00-0400 Body weight 59.[address] Alexander Steiner Work Phone: [facility] 07-27-2023 10:00-0400 Diastolic blood pressure 75 mm[Hg] Dr. Alexander Steiner Work Phone: [facility] 07-27-2023 10:00-0400 Heart rate 91 /min Dr. Alexander Steiner Work Phone: [facility] 07-27-2023 10:00-0400 Respiratory rate 18 /min Dr. Alexander Steiner Work Phone: [facility] 07-27-2023 10:00-0400 SaO2% (BldA) [Mass fraction] 94 % Dr. Alexander Steiner Work Phone: [facility] 07-27-2023 10:00-0400 Systolic blood pressure 128 mm[Hg] Dr. Alexander Steiner Work Phone: [facility] 04-27-2023 09:27-0500 Body height 170.[address] Alexander Steiner Work Phone: [facility] 04-27-2023 09:27-0500 Body mass index (BMI) [Ratio] 20.3 kg/m2 Dr. Alexander Steiner Work Phone: [facility] 04-27-2023 09:27-0500 Body temperature 97.6 [degF] Dr. Alexander Steiner Work Phone: [facility] 04-27-2023 09:27-0500 Body weight 58.[address] Alexander Steiner Work Phone: 0(861)999-935369 [place] [address] 04-27-2023 09:27-0500 Diastolic blood pressure 68 mm[Hg] Dr. Alexander Steiner Work Phone: 3(863)526-419469 [place] [address] 04-27-2023 09:27-0500 Heart rate 83 /min Dr. Alexander Steiner Work Phone: 1(484)571-617569 [place] [address] 04-27-2023 09:27-0500 Respiratory rate 18 /min Dr. Alexander Steiner Work Phone: [facility] 04-27-2023 09:27-0500 SaO2% (BldA) [Mass fraction] 95 % Dr. Alexander Steiner Work Phone: [facility] 04-27-2023 09:27-0500 Systolic blood pressure 118 mm[Hg] Dr. Alexander Steiner Work Phone: [facility] 02-23-2023 09:20-0500 Body height 170.[address] Alexander Steiner Work Phone: [facility] 02-23-2023 09:20-0500 Body mass index (BMI) [Ratio] 20.4 kg/m2 Dr. Alexander Steiner Work Phone: [facility] 02-23-2023 09:20-0500 Body temperature 98 [degF] Dr. Alexander Steiner Work Phone: [facility] 02-23-2023 09:20-0500 Body weight 59.[address] Alexander Steiner Work Phone: [facility] 02-23-2023 09:20-0500 Diastolic blood pressure 69 mm[Hg] Dr. Alexander Steiner Work Phone: [facility] 02-23-2023 09:20-0500 Heart rate 73 /min Dr. Alexander Steiner Work Phone: [facility] 02-23-2023 09:20-0500 Respiratory rate 16 /min Dr. Alexander Steiner Work Phone: [facility] 02-23-2023 09:20-0500 SaO2% (BldA) [Mass fraction] 96 % Dr. Alexander Steiner Work Phone: 8(170)023-037769 [place] [address] 02-23-2023 09:20-0500 Systolic blood pressure 122 mm[Hg] Dr. Alexander Steiner Work Phone: 7(851)301-421535 [place] [address] 01-18-2023 13:50-0400 Body mass index (BMI) [Ratio] 20.4 kg/m2 Dr. Alexander Steiner Work Phone: 6(338)549-508735 [place] [address] 01-18-2023 13:50-0400 Body temperature 97.8 [degF] Dr. Alexander Steiner Work Phone: 9(564)695-625835 [place] [address] 01-18-2023 13:50-0400 Body weight 59.[address] Alexander Steiner Work Phone: 0(626)694-111335 [place] [address] 01-18-2023 13:50-0400 Diastolic blood pressure 64 mm[Hg] Dr. Alexander Steiner Work Phone: 8(682)992-354735 [place] [address] 01-18-2023 13:50-0400 Heart rate 85 /min Dr. Alexander Steiner Work Phone: 7(973)759-685335 [place] [address] 01-18-2023 13:50-0400 Respiratory rate 18 /min Dr. Alexander Steiner Work Phone: 9(488)708-761169 [place] [address] 01-18-2023 13:50-0400 SaO2% (BldA) [Mass fraction] 95 % Dr. Alexander Steiner Work Phone: 3(968)271-918269 [place] [address] 01-18-2023 13:50-0400 Systolic blood pressure 135 mm[Hg] Dr. Alexander Steiner Work Phone: [facility] 12-12-2022 10:32-0400 Body mass index (BMI) [Ratio] 20.3 kg/m2 Dr. Alexander Steiner Work Phone: [facility] 12-12-2022 10:32-0400 Body temperature 97.2 [degF] Dr. Alexander Steiner Work Phone: [facility] 12-12-2022 10:32-0400 Body weight 59.[address] Alexander Steiner Work Phone: [facility] 12-12-2022 10:32-0400 Diastolic blood pressure 71 mm[Hg] Dr. Alexander Steiner Work Phone: [facility] 12-12-2022 10:32-0400 Heart rate 78 /min Dr. Alexander Steiner Work Phone: [facility] 12-12-2022 10:32-0400 Respiratory rate 18 /min Dr. Alexander Steiner Work Phone: [facility] 12-12-2022 10:32-0400 SaO2% (BldA) [Mass fraction] 96 % Dr. Alexander Steiner Work Phone: [facility] 12-12-2022 10:32-0400 Systolic blood pressure 154 mm[Hg] Dr. Alexander Steiner Work Phone: [facility] 12-02-2022 08:38-0400 Body temperature 98.01 [degF] Reji Goodrich MD Work Phone: [facility] 12-02-2022 08:38-0400 Diastolic blood pressure 65 mm[Hg] Reji Goodrich MD Work Phone: [facility] 12-02-2022 08:38-0400 Heart rate 67 /min Reji Goodrich MD Work Phone: [facility] 12-02-2022 08:38-0400 Respiratory rate 16 /min Reji Goodrich MD Work Phone: [facility] 12-02-2022 08:38-0400 SaO2% (BldA) [Mass fraction] 95 % Reji Goodrich MD Work Phone: [facility] 12-02-2022 08:38-0400 Systolic blood pressure 140 mm[Hg] Reji Goodrich MD Work Phone: [facility] 12-02-2022 06:09-0400 Body height 170.2 cm Reji Goodrich MD Work Phone: [facility] 12-02-2022 06:09-0400 Body mass index (BMI) [Ratio] 20.05 kg/m2 Reji Goodrich MD Work Phone: [facility] 12-02-2022 06:09-0400 Body weight 58.06 kg Reji Goodrich MD Work Phone: [facility] 11-04-2022 10:10-0400 Body height 170.2 cm [facility] 11-04-2022 10:10-0400 Body mass index (BMI) [Ratio] 20.42 kg/m2 [facility] 11-04-2022 10:10-0400 Body temperature 97.5 [degF] [facility] 11-04-2022 10:10-0400 Body weight 59.15 kg [facility] 11-04-2022 10:10-0400 Diastolic blood pressure 55 mm[Hg] [facility] 11-04-2022 10:10-0400 Heart rate 75 /min [facility] 11-04-2022 10:10-0400 Respiratory rate 16 /min [facility] 11-04-2022 10:10-0400 SaO2% (BldA) [Mass fraction] 95 % [facility] 11-04-2022 10:10-0400 Systolic blood pressure 119 mm[Hg] [facility] 08-26-2022 09:54-0400 Body temperature 96.2 [degF] Dr. Alexander Steiner Work Phone: [facility] 08-26-2022 09:54-0400 Diastolic blood pressure 48 mm[Hg] Dr. Alexander Steiner Work Phone: 6(055)634-262769 [place] [address] 08-26-2022 09:54-0400 Heart rate 65 /min Dr. Alexander Steiner Work Phone: 5(654)234-865869 [place] [address] 08-26-2022 09:54-0400 Respiratory rate 16 /min Dr. Alexander Steiner Work Phone: [facility] 08-26-2022 09:54-0400 SaO2% (BldA) [Mass fraction] 99 % Dr. Alexander Steiner Work Phone: [facility] 08-26-2022 09:54-0400 Systolic blood pressure 123 mm[Hg] Dr. Alexander Steiner Work Phone: [facility] 08-26-2022 09:17-0400 Body height 170.[address] Alexander Steiner Work Phone: [facility] 08-26-2022 09:17-0400 Body mass index (BMI) [Ratio] 20.3 kg/m2 Dr. Alexander Steiner Work Phone: [facility] 08-26-2022 09:17-0400 Body weight 58.[address] Alexander Steiner Work Phone: [facility] 07-05-2022 09:50-0400 Body height 170.[address] Alexander Steiner Work Phone: [facility] 07-05-2022 09:50-0400 Body mass index (BMI) [Ratio] 21 kg/m2 Dr. Alexander Steiner Work Phone: [facility] 07-05-2022 09:50-0400 Body temperature 98.2 [degF] Dr. Alexander Steiner Work Phone: [facility] 07-05-2022 09:50-0400 Body weight [address] Alexander Steiner Work Phone: [facility] 07-05-2022 09:50-0400 Diastolic blood pressure 64 mm[Hg] Dr. Alexander Steiner Work Phone: 2(633)014-380269 [place] [address] 07-05-2022 09:50-0400 Heart rate 93 /min Dr. Alexander Steiner Work Phone: [facility] 07-05-2022 09:50-0400 Respiratory rate 20 /min Dr. Alexander Steiner Work Phone: [facility] 07-05-2022 09:50-0400 SaO2% (BldA) [Mass fraction] 92 % Dr. Alexander Steiner Work Phone: [facility] 07-05-2022 09:50-0400 Systolic blood pressure 124 mm[Hg] Dr. Alexander Steiner Work Phone: [facility] 04-26-2022 08:31-0500 Body mass index (BMI) [Ratio] 21.2 kg/m2 Dr. Alexander Steiner Work Phone: [facility] 04-26-2022 08:31-0500 Body weight 61.[address] Alexander Steiner Work Phone: [facility] 04-26-2022 08:31-0500 Diastolic blood pressure 68 mm[Hg] Dr. Alexander Steiner Work Phone: [facility] 04-26-2022 08:31-0500 Heart rate 92 /min Dr. Alexander Steiner Work Phone: [facility] 04-26-2022 08:31-0500 Respiratory rate 16 /min Dr. Alexander Steiner Work Phone: [facility] 04-26-2022 08:31-0500 Systolic blood pressure 134 mm[Hg] Dr. Alexander Steiner Work Phone: [facility] 11-10-2021 11:46-0400 Body height 170.2 cm Micah Trinh MD Work Phone: [facility] 11-10-2021 11:46-0400 Body mass index (BMI) [Ratio] 20.74 kg/m2 Micah Trinh MD Work Phone: [facility] 11-10-2021 11:46-0400 Body temperature 97.3 [degF] Micah Trinh MD Work Phone: [facility] 11-10-2021 11:46-0400 Body weight 60.06 kg Micah Trinh MD Work Phone: [facility] 11-10-2021 11:46-0400 Diastolic blood pressure 64 mm[Hg] Micah Trinh MD Work Phone: [facility] 11-10-2021 11:46-0400 Heart rate 87 /min Micah Trinh MD Work Phone: [facility] 11-10-2021 11:46-0400 Respiratory rate 16 /min Micah Trinh MD Work Phone: [facility] 11-10-2021 11:46-0400 SaO2% (BldA) [Mass fraction] 96 % Micah Trinh MD Work Phone: [facility] 11-10-2021 11:46-0400 Systolic blood pressure 136 mm[Hg] Micah Trinh MD Work Phone: [facility] 08-26-2021 13:42-0400 Body height 170.18 cm [facility] Work Phone: 08-26-2021 13:42-0400 Body mass index (BMI) [Ratio] 20.7 kg/m2 [facility] Work Phone: 08-26-2021 13:42-0400 Body temperature 98 [degF] [facility] Work Phone: 08-26-2021 13:42-0400 Body weight 59.87 kg [facility] Work Phone: 08-26-2021 13:42-0400 Diastolic blood pressure 60 mm[Hg] [facility] Work Phone: 08-26-2021 13:42-0400 Heart rate 86 /min [facility] Work Phone: 08-26-2021 13:42-0400 Respiratory rate 16 /min [facility] Work Phone: 08-26-2021 13:42-0400 SaO2% (BldA) [Mass fraction] 94 % [facility] Work Phone: 08-26-2021 13:42-0400 Systolic blood pressure 141 mm[Hg] [facility] Work Phone: 04-20-2021 07:12-0500 Body height 170.[address] Alexander Steiner Work Phone: [facility] Work Phone: 04-20-2021 07:12-0500 Body weight 62.[address] Alexander Steiner Work Phone: [facility] Work Phone: 04-20-2021 07:12-0500 Diastolic blood pressure 75 mm[Hg] Dr. Alexander Steiner Work Phone: [facility] Work Phone: 04-20-2021 07:12-0500 Heart rate 79 /min Dr. Alexander Steiner Work Phone: [facility] Work Phone: 04-20-2021 07:12-0500 Respiratory rate 18 /min Dr. Alexander Steiner Work Phone: [facility] Work Phone: 04-20-2021 07:12-0500 SaO2% (BldA) [Mass fraction] 98 % Dr. Alexander Steiner Work Phone: [facility] Work Phone: 04-20-2021 07:12-0500 Systolic blood pressure 135 mm[Hg] Dr. Alexander Steiner Work Phone: [facility] Work Phone: 11-11-2020 16:08-0400 Body mass index (BMI) [Ratio] 20.31 kg/m2 Micah Trinh MD Work Phone: [facility] 11-11-2020 16:08-0400 Body temperature 97.9 [degF] Micah Trinh MD Work Phone: [facility] 11-11-2020 16:08-0400 Body weight 58.83 kg Micah Trinh MD Work Phone: [facility] 11-11-2020 16:08-0400 Diastolic blood pressure 72 mm[Hg] Micah Trinh MD Work Phone: [facility] 11-11-2020 16:08-0400 Heart rate 81 /min Micah Trinh MD Work Phone: [facility] 11-11-2020 16:08-0400 Respiratory rate 18 /min Micah Trinh MD Work Phone: [facility] 11-11-2020 16:08-0400 SaO2% (BldA) [Mass fraction] 96 % Micah Trinh MD Work Phone: [facility] 11-11-2020 16:08-0400 Systolic blood pressure 150 mm[Hg] Micah Trinh MD Work Phone: [facility] 11-11-2020 15:12-0400 Diastolic blood pressure 73 mm[Hg] Ingrid HARRISON-C Work Phone: [facility] 11-11-2020 15:12-0400 Systolic blood pressure 145 mm[Hg] Ingrid Lebron PA-C Work Phone: [facility] 10-14-2020 14:59-0400 Body mass index (BMI) [Ratio] 20.3 kg/m2 Dr. Alexander Steiner Work Phone: [facility] Work Phone: Encounters Encounter Date Encounter Type Care Provider Facility Start: 12-26-2024 ambulatory [facility] Facility:[facility] Start: 12-17-2024 Encounter for other preprocedural examination Zuleyma Storm [facility] Start: 12-11-2024 ambulatory [facility] Facility:[facility] Start: 12-11-2024 Non-patient / Non-visit Dr. Emmett Storm MD -[facility] Start: 12-11-2024 End: 12-11-2024 Admission to same day surgery center Dr. Zuleyma Storm MD -Endoscopy Work Phone: Start: 12-11-2024 End: 12-11-[address] Alexander Steiner MD Work Phone: -Endoscopy Start: 12-09-[address] Alexander Steiner MD -Laboratory Work Phone: Start: 12-09-2024 End: 12-09-2024 ambulatory Alexander [facility] Facility:[facility] Start: 12-04-2024 End: 12-04-[address] Zuleyma Storm MD -[facility] Work Phone: Start: 12-04-2024 End: 12-04-[address] Alexander Steiner MD Work Phone: -[facility] Start: 12-03-2024 End: 12-03-[address] Alexander Steiner MD Work Phone: -Laboratory Start: 12-03-2024 End: 12-03-[address] Alexander Steiner MD -Laboratory Work Phone: Start: 12-02-2024 End: 12-02-[address] Alexander Steiner MD -Medical Out Work Phone: Start: 12-02-2024 End: 12-03-[address] Alexander Steiner MD Work Phone: -Medical Out Start: 11-29-2024 End: 11-29-[address] Alexander Steiner MD Work Phone: -Laboratory Start: 11-29-2024 End: 11-29-[address] Alexander Steiner MD -Laboratory Work Phone: Start: 11-28-2024 End: 11-29-[address] Alexander Steiner MD Work Phone: -Laboratory Phy Office 3rd Flr Start: 11-28-2024 End: 11-28-[address] Alexander Steiner MD -Laboratory Phy Office 3rd Flr Start: 11-28-2024 End: 11-28-2024 ambulatory Alexander Steiner Facility:[facility] Start: 11-21-2024 End: 11-29-2024 Telephone encounter Saurav Machuca MD Work Phone: General Surgery Comment on above: Patient Question Start: 11-20-2024 End: 11-20-2024 Patient encounter procedure Saurav Machuca MD Work Phone: General Surgery Comment on above: Matute's esophagus with dysplasia; Tubulovillous adenoma; Multiple polyps of sigmoid colon; Encounter for screening for malignant neoplasm of colon Start: 11-20-2024 End: 11-20-2024 ambulatory SAURAV MACHUCA Facility:[facility] Start: 11-15-2024 ambulatory SAURAV MACHUCA [facility] ity:[facility] Start: 11-15-2024 End: 11-15-2024 Subsequent hospital visit by physician [facility] Work Phone: Radiology Comment on above: 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 [K22.70] Start: 11-15-2024 ambulatory SAURAV Crowell ity:[facility] Start: 11-15-2024 End: 11-15-2024 Subsequent hospital visit by physician Saurav Machuca MD Work Phone: Ambulatory Surgery Comment on above: Unintentional weight loss [R63.4] Start: 11-07-2024 End: 11-07-2024 Admission to same day surgery center Saurav Machuca MD Work Phone: Ambulatory Surgery Comment on above: bowel prep tips Start: 11-07-2024 End: 11-07-2024 E-mail encounter from caregiver Saurav Machuca MD Work Phone: Ambulatory Surgery Start: 10-31-2024 End: 10-31-[address] Alejandro Machado [facility] Work Phone: Start: 10-31-2024 End: 10-31-[address] Alexander Steiner MD Work Phone: [facility] Start: 10-29-2024 End: 10-29-[address] Alexander Steiner MD Work Phone: -[facility] Start: 10-29-2024 End: 10-29-[address] Alejandro Machado DO -[facility] Work Phone: Start: 10-29-2024 End: 10-29-2024 ambulatory Alexander Steiner Facility:[facility] Start: 10-21-2024 End: 10-21-[address] Marcelino Nolen MD -Medical Out Work Phone: Start: 10-21-2024 End: 10-21-[address] Alexander Steiner MD Work Phone: -Medical Out Start: 10-15-2024 End: 10-18-2024 Telephone encounter Valerie Gaitan APRN.CNP Work Phone: Ambulatory Surgery Comment on above: Orders Start: 10-02-2024 End: 10-02-[address] Alexander Steiner MD Work Phone: -Cat Scan [facility] Start: 10-02-2024 End: 10-02-[address] Alexander Steiner MD -Cat Scan [facility] Work Phone: Start: 10-02-2024 End: 10-02-2024 ambulatory Alexander Steiner Facility:[facility] Start: 09-30-2024 End: 09-30-2024 Patient encounter procedure Valerie Gaitan [employer] Work Phone: General Surgery Comment on above: Unintentional weight loss (Primary Dx); Fecal occult blood test positive; History of Matute's esophagus; Family history of colon cancer Start: 09-30-2024 End: 09-30-2024 ambulatory VALERIE ARNIE Facility:[facility] Start: 2024 End: 2024 Patient encounter procedure Jessie HARRISON -[facility] Work Phone: Start: 2024 End: [address] Alexander Steiner MD Work Phone: -[facility] Start: 09-20-2024 End: 09-20-[address] Alexander tSeiner MD Work Phone: -Laboratory Specimen Start: 09-20-2024 End: 09-20-[address] Alexander Steiner MD -Laboratory Specimen Work Phone: Start: 09-19-2024 ambulatory Rita Alba Facility:[facility] Start: 09-19-2024 Non-patient / Non-visit Dr. Rita brown MD -[facility] Start: 09-19-2024 End: 09-20-[address] Alexander Steiner MD Work Phone: -Cardiovascular Services Start: 09-19-2024 End: 09-19-[address] Alexander Steiner MD -Cardiovascular Services Work Phone: Start: 09-19-2024 End: 09-19-2024 ambulatory Alexander Steiner Facility:[facility] Start: 09-16-2024 End: 09-16-[address] Alexander Steiner MD Work Phone: -Laboratory Start: 09-16-2024 End: 09-16-[address] Alexander Steiner MD -Laboratory Work Phone: Start: 09-16-2024 End: 09-16-2024 ambulatory Alexander Steiner Facility:[facility] Start: 09-11-2024 End: 09-11-[address] Alexander Steiner MD Work Phone: [facility] Work Phone: Start: 09-11-2024 End: 09-11-[address] Alexander Steiner MD -[facility] Work Phone: Start: 09-11-2024 End: 09-11-2024 ambulatory Alexander Steiner Facility:[facility] Start: 08-29-2024 End: 08-29-2024 Patient encounter procedure Laura TRUJILLO -[facility] Work Phone: Start: 08-29-2024 End: 08-29-[address] Alexander Steiner MD Work Phone: [facility] Work Phone: Start: 08-22-2024 End: 08-22-2024 Non-patient / Non-visit Dr. Sánchez Pena MD -[facility] Work Phone: Start: 08-22-2024 End: 08-22-[address] Alexander Steiner MD Work Phone: [facility] Work Phone: Start: 08-22-2024 End: 08-22-[address] Alexander Steiner MD -Cardiovascular Services Work Phone: Start: 08-22-2024 End: 08-22-2024 ambulatory Alexander Steiner Facility:[facility] Start: 08-12-2024 End: 08-12-[address] Alexander Steiner MD -Laboratory Work Phone: Start: 08-12-2024 End: 08-12-[address] [facility] Facility:[facility] Start: 07-08-2024 End: 07-08-[address] Alejandro Machado DO -[facility] Work Phone: Start: 07-08-2024 End: 07-08-2024 ambulatory Alejandro Machado Facility:[facility] Start: 06-27-2024 End: 06-27-[address] Alexander Steiner MD Work Phone: [facility] Work Phone: Start: 06-27-2024 End: 06-27-[address] Alejandro Machado DO -Cat Scan, [facility] Work Phone: Start: 06-27-2024 End: 06-27-2024 ambulatory Alejandro Machado Facility:[facility] Start: 05-28-2024 End: 05-28-[address] Alejandro Machado DO Work Phone: [facility] Work Phone: Start: 05-28-2024 End: 05-28-[address] Alexander Steiner MD -Radiology, [facility] Work Phone: Start: 05-28-2024 End: 05-28-2024 ambulatory Alexander [facility] Facility:[facility] Start: 05-14-2024 End: 05-14-[address] Micah Jimenez MD -Laboratory Work Phone: Start: 05-14-2024 End: 05-14-2024 ambulatory Micah Jimenez Facility:[facility] Start: 04-12-2024 End: 04-12-[address] Alexander Steiner MD -Laboratory, Phy Office 3rd [facility] Start: 04-12-2024 End: 04-12-2024 ambulatory Alexander Steiner Facility:[facility] Start: 03-26-2024 End: 03-26-[address] Alexander Steiner MD -Laboratory, Phy Office 3rd Flr Start: 03-26-2024 End: 03-26-2024 ambulatory [facility] Juvenal Steiner Facility:[facility] Start: 03-06-2024 End: 03-06-[address] Alexander Steiner MD -Laboratory, Phy Office 3rd Flr Start: 03-06-2024 End: 03-06-[address] [facility] Facility:[facility] Start: 02-29-2024 End: 02-29-[address] Alejandro Machado DO [facility] Work Phone: Start: 02-29-2024 End: 02-29-2024 ambulatory [facility] Facility:[facility] Start: 02-26-2024 End: 02-26-[address] Ale[facility] Work Phone: Start: 02-26-2024 End: 02-26-2024 ambulatory [facility] Facility:[facility] Start: 02-19-2024 End: 02-19-[address] Gregory Rodriguez MD -[facility] Work Phone: Start: 02-19-2024 End: 02-19-2024 ambulatory Gregory Rodriguez Facility:[facility] Start: 07-27-2023 End: 07-27-[address] Alexander Steiner Work Phone: [facility] Work Phone: Start: 07-24-2023 End: 07-24-[address] Alexander Steiner Work Phone: [facility] Work Phone: Start: 07-24-2023 End: 07-24-[address] Alexander Steiner [facility] Work Phone: Start: 04-27-2023 End: 04-27-[address] Alexander Steiner Work Phone: [facility] Work Phone: Start: 04-24-2023 End: 04-24-[address] Alexander Steiner Work Phone: [facility] Work Phone: Start: 04-24-2023 End: 04-24-[address] Alexander Steiner Work Phone: [facility]Cat Scan, [facility] Work Phone: Start: 04-04-2023 End: 04-04-[address] Alexander Steiner Work Phone: [facility] Work Phone: Start: 04-04-2023 End: 04-04-[address] Alexander Steiner Work Phone: [facility] Work Phone: Start: 03-06-2023 End: 03-06-[address] Alexander Steiner Work Phone: [facility] Work Phone: Start: 03-06-2023 End: 03-06-[address] Alexander Steiner [facility] Work Phone: Start: 03-03-2023 End: 03-03-[address] Alexander Steiner Work Phone: [facility] Work Phone: Start: 03-03-2023 End: 03-03-[address] Alexander Steiner [facility] [address] [place] [address] Start: 03-02-2023 End: 03-02-[address] Alexander Steiner Work Phone: [facility] Work Phone: Start: 03-02-2023 End: 03-02-[address] Alexander Steiner Work Phone: [facility]-Laboratory, Phy Office 3rd Flr Start: 02-23-2023 End: 02-23-[address] Alexander Steiner Work Phone: [facility] Work Phone: Start: 01-26-2023 Non-patient / Non-visit Dr. Emmett Steiner Work Phone: [facility] Work Phone: Start: 01-26-[address] Alexander [facility]onzalez [facility] Start: 01-24-2023 Non-patient / Non-visit Dr. Emmett tSeiner Work Phone: [facility] Work Phone: Start: 01-20-2023 Non-patient / Non-visit Dr. Emmett Steiner Work Phone: [facility] Work Phone: Start: 01-18-2023 End: 01-18-[address] Alexander Steiner Work Phone: [facility] Work Phone: Start: 01-16-2023 Non-patient / Non-visit Dr. Emmett Steiner Work Phone: [facility] Work Phone: Start: 01-11-2023 Non-patient / Non-visit Dr. Emmett Steiner Work Phone: [facility] Start: 01-10-2023 Non-patient / Non-visit Dr. Emmett Steiner Work Phone: [facility] Start: 01-04-2023 Non-patient / Non-visit Dr. Emmett Steiner Work Phone: [facility] Start: 01-02-[address] Brandi Steiner Work Phone: [facility] Start: 12-12-2022 End: 12-12-[address] Alexander Steiner Work Phone: [facility] Work Phone: Start: 12-02-2022 End: 12-02-2022 Subsequent hospital visit by physician Reji Goodrich MD Work Phone: Department of Radiology Comment on above: Arrived Start: 12-02-2022 End: 12-02-2022 Subsequent hospital visit by physician Reji Goodrich MD Work Phone: Department of Radiology Comment on above: Arrived Start: 11-04-2022 ambulatory [facility] Facility:[facility] Start: 11-04-2022 End: 11-04-2022 Office outpatient visit 15 minutes Dean Bedoya APRN-[facility] Work Phone: Division of Thoracic Surgery at [facility] Comment on above: Lung nodule (Primary Dx) Start: 11-01-2022 End: 11-01-2022 ambulatory [facility] Work Phone: Start: 11-01-2022 End: 11-01-2022 Patient encounter procedure [facility], Phy Office 3rd Flr Start: 08-31-2022 End: 08-31-2022 Patient encounter procedure [facility] Work Phone: Start: 08-26-2022 End: 08-26-[address] Alexander Steiner Work Phone: [facility] Work Phone: Start: 08-26-2022 End: 08-26-[address] Alexander Steiner Work Phone: [facility]-Medical Out Start: 08-09-2022 End: 08-09-[address] Alexander Steiner Work Phone: [facility]-Outpatient Bone Densitometry Start: 07-16-2022 End: 07-16-[address] Alexander Steiner Work Phone: [facility] Work Phone: Start: 07-16-2022 End: 07-16-[address] Alexander Steiner Work Phone: [facility] Start: 07-05-2022 End: 07-05-[address] Alexander Steiner Work Phone: [facility] Start: 04-26-2022 End: 04-26-[address] Alexander Steiner Work Phone: [facility] Start: 11-10-2021 End: 11-10-2021 Office outpatient visit 15 minutes Micah Trinh MD Work Phone: Division of Thoracic Surgery at [facility] Comment on above: Lung nodule (Primary Dx) Start: 11-10-2021 End: 11-10-2021 Subsequent hospital visit by physician Delia Mccauley APRN-[employer] Work Phone: [facility] Comment on above: Arrived Start: 08-26-2021 Patient encounter procedure [facility] Start: 08-25-2021 End: 08-25-2021 Patient encounter procedure [facility]-Laboratory, Phy Office 3rd Flr Start: 07-09-2021 End: 07-09-[address] Alexander Steiner Work Phone: [facility] Start: 05-11-2021 End: 05-11-[address] Alexander Steiner Work Phone: [facility] Start: 04-20-2021 End: 04-20-[address] Alexander Steiner Work Phone: [facility] Start: 11-11-2020 End: 11-11-2020 Office outpatient visit 15 minutes Micah Trinh MD Work Phone: Division of Thoracic Surgery at [facility] Comment on above: Solitary lung nodule (Primary Dx) Start: 11-11-2020 End: 11-11-2020 Subsequent hospital visit by physician Ingrid Lberon PA-C Work Phone: [facility] Comment on above: Arrived Start: 10-14-[address] Brandi Steiner Work Phone: [facility] Start: 10-14-[address] Alejandro kothari DO Work Phone: [facility] Procedures Date Procedure Procedure Detail Performing Clinician Start: 12-11-[address] Alexander Steiner MD Work Phone: Start: 11-29-2024 Measurement of occult blood in stool specimen using immunoassay Dr. Alexander Steiner MD Work Phone: Start: 11-15-2024 Colonoscopy flx dx w/collj spec when pfrmd Valerie Gaitan PIPE ROLLER.[employer] Work Phone: Start: 11-15-2024 Esophagogastroduodenoscopy transoral diagnostic Valerie Blair PIPE ROLLER.[employer] Work Phone: Start: 10-29-2024 CT of thorax with contrast Dr. Alexander Steiner MD Work Phone: Start: 10-02-2024 Computed tomography of abdomen and pelvis with contrast Dr. Alexander Steiner MD Work Phone: Start: 09-20-2024 Measurement of occult blood in stool specimen using immunoassay Dr. Alexander Steiner MD Work Phone: Start: 09-19-2024 Prostate specific antigen measurement Dr. Alexander Steiner MD Work Phone: Comment on above: This test was performed using the [employer] tPSA method. Measured values of a patient sample can vary depending on the testing procedure used. PSA values determined on patient samples by different testing procedures cannot be used interchangeably. If there is a change in PSA assays while monitoring therapy, sequential testing should be performed to confirm baseline values. Start: 09-16-2024 Vitamin D, 25-hydroxy measurement Dr. Emmett Steiner MD Work Phone: Comment on above: Vitamin D StatusDeficiency: <20 ng/mL (5 0nmol/L)Insufficiency: 20-30 ng/mL (50-75 nmol/L)Sufficiency: 30-100 ng/mL (75-250 nmol/L)Toxicity: >100 ng/mL (>250 nmol/L) Start: 09-11-2024 CT angiography of head and neck Dr. Alexander Steiner MD Work Phone: Start: 06-27-2024 CT of thorax with contrast Dr. Alexander Steiner MD Work Phone: Start: 05-28-2024 SARS-CoV-2, Influenza & RSV (PCR) Dr. Araiza DO Work Phone: Start: 05-28-2024 X-ray of chest, PA and lateral views Dr. Alejandro Machado DO Work Phone: Start: 04-12-2024 SARS-CoV-2, Influenza & RSV (PCR) Dr. Araiza DO Work Phone: Start: 04-12-2024 X-ray of chest, PA and lateral views Dr. Alejandro Machado DO Work Phone: Start: 03-26-2024 SARS-CoV-2, Influenza & RSV (PCR) Dr. Araiza DO Work Phone: Start: 02-26-2024 CT of chest without contrast Dr. Alejandro kothari DO Work Phone: Start: 07-24-2023 CT of chest without contrast Dr. Alexander dunbar Work Phone: Start: 04-24-2023 CT of chest without contrast Dr. Alexander dunbar Work Phone: Start: 03-06-2023 Measurement of occult blood in stool specimen using immunoassay Dr. Alexander Steiner Work Phone: Start: 12-27-2022 PET study for localization of tumor Dr. Alexander Steiner Work Phone: Start: 12-02-2022 Radiologic exam chest single view Marie e R Rad MD Work Phone: Start: 12-02-2022 GENERAL PROCEDURE Reji Goodrich MD Work Phone: Start: 12-02-2022 End: 12-02-2022 Blood count complete automated Debbie Olvera PIPE ROLLER-[employer] Work Phone: Start: 11-04-2022 Follow-up visit Follow-up DEAN BEDOYA Start: 08-09-2022 Dual energy X-ray absorptiometry Dr. Alexander Steiner Work Phone: Start: 11-10-2021 Ct thorax w/o contrast material Delia Mccaluey PIPE ROLLER-[employer] Work Phone: Start: 11-11-2020 Ct thorax w/contrast material Ingrid jernigan PA-C Work Phone: Start: 11-11-2020 Creatinine blood Ingrid Lebron PA-C Work Phone: Plan of Treatment Date Care Activity Detail Author Start: 12-11-2024 Colonoscopy [facility] Start: 12-11-2024 Patient discharge [facility] Start: 12-04-2024 End: 12-04-2024 Patient encounter procedure 12/04/2024 2:45 PM EDT Office Visit General Surgery [address] [place] [address] Saurav Machuca MD [address] [place], [place] [id number] FU: Medical Clearance for colonoscopy. [facility] General Surgery Comment on above: FU: Medical Clearanc e for colonoscopy. [facility] Start: 12-02-2024 Administration of bl ood product [facility] Start: 12-02-2024 [facility] Start: 11-25-2024 Influenza vaccination Influenza Vacc ine (#1) [facility] Start: 11-20-2024 End: 11-20-2024 Patient encounter procedure 11/20/2024 11:45 AM EDT Office Visit General Surgery [address] [place] [address] Saurav Machuca MD [address] [place] [address] 11-15 EGD & Colonoscopy follow up w/RG General Surgery Comment on above: 11-15 EGD & Colonosc opy follow up w/RG Start: 11-15-2024 End: 11-15-2024 Patient encounter procedure 11/15/2024 8:00 AM EDT Appointment Ambulatory Surgery [address] [place] [address] Saurav Machuca MD [address] [place] [address] Ambulatory Surgery Start: 11-14-2024 Tetanus vaccination TETANUS [facility] Start: 10-21-2024 Intravenous infusion THER/PROP H/DIAG IV INF [facility] Start: 10-21-2024 Iv infusion therapy/prophylaxis /dx 1st to 1 hr THER/PROPH/DIAG IV INF [facility] Start: 03-27-2024 Advance Directive Discussion Advance Directive Discussion [facility] Start: 03-27-2024 Medicare Advantage Annual Wellness Visit Medicare Advantage Annual Wellness Visit [facility] Start: 11-26-2023 Covid-19 Vaccine () Covid-19 Vaccine () [facility] Start: 11-05-2023 Screening for malign ant neoplasm of lung LUNG CANCER SCREENING [facility] Start: 09-01-2023 Diabetes Screening Diabetes Screenin g [facility] Start: 11-25-2022 Influenza vaccination INFLUENZA VACC INE (#1) [facility] Start: 11-10-2022 Screening for malign ant neoplasm of lung LUNG CANCER SCREENING [facility] Start: 11-04-2022 End: 11-04-2022 Patient encounter procedure [facility] Start: 08-26-2022 Iv infusion therapy/prophylaxis /dx 1st to 1 hr THER/PROPH/DIAG IV INF [facility] Start: 04-10-2022 COVID-19 VACCINE (4 - Pfizer series) COVID-19 VACCINE (4 - Pfizer series) [facility] Start: 11-25-2021 Influenza vaccination INFLUENZA VACC INE (#1) [facility] Start: 11-11-2021 Screening for malign ant neoplasm of lung LUNG CANCER SCREENING [facility] Start: 11-10-2021 End: 11-10-2022 CT Chest WO contrast CT CHEST WITHOUT CONTRAST Imaging Routine Lung nodule Expected: 11/10/2021, Expires: 11/10/2022 [facility] Comment on above: Expected: 11/10/2021 , Expires: 11/10/2022 Start: 05-12-2021 End: 05-12-2021 Patient encounter procedure [facility] Start: 11-25-2020 Influenza vaccination INFLUENZA VACC INE (#1) [facility] Start: 11-14-2020 COVID-19 VACCINE (3 - Booster for Pfizer series) COVID-19 VACCINE (3 - Booster for Pfizer series) [facility] Start: 11-11-2020 End: 11-11-[address] CHEST WITHOUT CONTRAST Imaging Routine Solitary lung nodule Expected: 11/11/2020, Expires: 11/11/2021 [facility] Work Phone: Comment on above: Expected: 11/11/2020 , Expires: 11/11/2021 Start: 11-30-2018 Pneumococcal vaccination PNEUM OCOCCAL VACCINE SERIES (2 - PCV) [facility] Start: 2017 RSV Vaccine (1 - 1-d ose 75+ series) RSV Vaccine (1 - 1-dose 75+ series) [facility] Start: 09-25-2007 Pneumococcal vaccination [facility] Start: 01-31-1995 Urine microalbumin profile DTaP,Tdap,Td Vaccine (3 - Tdap) [facility] Start: 1992 Pneumococcal Vaccine : 50+ (1 of 1 - PCV) Pneumococcal Vaccine: 50+ (1 of 1 - PCV) [facility] Start: 1992 Shingrix Vaccine (1 of 2) Shingrix Vaccine (1 of 2) [facility] Start: 1992 Zoster vaccine hzv l cb for subcutaneous use ZOSTER (SHINGLES) VACCINE (1 of 2) [facility] Start: 09-25-1987 Colonoscopy COLORECTAL CAN CER SCREENING DISCUSSION [facility] Start: 09-25-1987 Screening for malign ant neoplasm of colon COLORECTAL CANCER SCREENING DISCUSSION [facility] Start: 1961 Third diphtheria, tetanus and acellular pertussis (DTaP) vaccination TDAP (ADULT) [facility] Start: 1960 Anxiety Screening Anxiety Screening [facility] Start: 1960 Depression Screening Depression Scre ening [facility] Start: 1960 Tetanus vaccination TETANUS [facility] Start: 1942 Hepatitis C antibody , confirmatory test HEPATITIS C VIRUS SCREENING [facility] Start: 1942 Potassium [Moles/vol ume] in Serum or Plasma POTASSIUM [facility] Start: 1942 Thyroid stimulating hormone measurement TSH [facility] Colonoscopy [facility] CT Chest W contrast IV [facility] CT Chest W contrast IV [facility] CT Chest W contrast IV [facility] CT Chest W contrast IV [facility] CT Chest WO contrast [facility] CT Chest WO contrast [facility] CT Chest WO contrast [facility] End: 12-02-2022 CT Guidance for biopsy of Mediastinum [facility] Work Phone: Comment on above: 1 Occurrences starti ng 12/02/2022 until 12/02/2022 DXA Bone [Mass/Area] Bone density [facility] End: 09-30-2025 EGD DIAGNOSTIC EGD DIAGNOSTIC Endoscopy Routine Unintentional weight loss Fecal occult blood test positive History of Matute's esophagus 1 Occurrences starting 09/30/2024 until 09/30/2025 [facility] Comment on above: 1 Occurrences starti ng 09/30/2024 until 09/30/2025 End: 09-30-2025 Flexible sigmoidoscopy study COLONOSCOPY DIAGNOSTIC Endoscopy Routine Unintentional weight loss Fecal occult blood test positive Family history of colon cancer 1 Occurrences starting 09/30/2024 until 09/30/2025 [facility] Work Phone: Comment on above: 1 Occurrences starti ng 09/30/2024 until 09/30/2025 Positron emission tomography with computed tomography [facility] SURG PATH REQUEST [facility] Comment on above: Release Upon Orderin g for 1 Occurrences starting 12/02/2022, 1 completed T4 free measurement [facility] Thyroid stimulating hormone measurement [facility] Tissue Pathology bio psy report [facility] Work Phone: Comment on above: Release Upon Orderin g for 1 Occurrences starting 11/15/2024, 1 completed US Carotid arteries [facility] Vitamin D, 25-hydrox y measurement [facility] XR Abdomen Supine an d Upright XR ABDOMEN 1V SUPINE Radiology Routine 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 Unintentional weight loss Family history of colon cancer 11/15/2024 10:57 AM EDT [facility] Work Phone: End: 12-15-2025 XR Abdomen Supine and Upright XR ABDOMEN 1V SUPINE Radiology Routine 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 Unintentional weight loss Family history of colon cancer 1 Occurrences starting 11/15/2024 until 12/15/2025 [facility] Comment on above: 1 Occurrences starti ng 11/15/2024 until 12/15/2025 [facility] Immunizations Immunization Date Immunization Notes Care Provider Paddy roberts 12-08-2021 influenza virus vaccine, unspecified formulation [facility] Cts Advanced Practice Provider [facility] 06-14-2020 SARS-COV-2 (COVID-19 ), Mrna, Lnp-s, Pf, 30 Mcg/0.3 Ml Dose PFIZER Ingrid Lebron PA-C Work Phone: [facility] 05-25-2020 SARS-COV-2 (COVID-19 ), Mrna, Lnp-s, Pf, 30 Mcg/0.3 Ml Dose PFIZER Ingrid Lebron PA-C Work Phone: [facility] 01-06-2020 influenza virus vaccine, unspecified formulation Delia Mccauley PIPE ROLLER-[employer] Work Phone: [facility] 01-31-1985 diphtheria and tetan us toxoids, adsorbed for pediatric use Valerie Arnie PIPE ROLLER.[employer] Work Phone: [facility] 12-22-1969 diphtheria and tetan us toxoids, adsorbed for pediatric use Valerie Arnie PIPE ROLLER.[employer] Work Phone: [facility] 01-08-1968 tetanus toxoid, adsorbed Valerie Arnie PIPE ROLLER.[employer] Work Phone: [facility] 12-03-1964 tetanus toxoid, adsorbed Valerie Arnie PIPE ROLLER.[employer] Work Phone: [facility] 02-12-1962 tetanus toxoid, adsorbed Valerie Arnie PIPE ROLLER.[employer] Work Phone: [facility] 12-31-1959 trivalent poliovirus vaccine, live, oral Valerie Arnie PIPE ROLLER.[employer] Work Phone: [facility] 02-04-1959 trivalent poliovirus vaccine, live, oral Valerie Arnie PIPE ROLLER.[employer] Work Phone: [facility] 02-04-1959 vaccinia (smallpox) vaccine, diluted Valerie Arnie PIPE ROLLER.[employer] Work Phone: [facility] 10-10-1957 trivalent poliovirus vaccine, live, oral Valerie Arnie PIPE ROLLER.[employer] Work Phone: [facility] 09-12-1957 trivalent poliovirus vaccine, live, oral Valerie Arnie PIPE ROLLER.[employer] Work Phone: [facility] Payers Date Payer Category Payer Self-pay [id number] 2020 Medicare MEDICARE [employer] HMO PPO MEDICARE [employer] O PPO [id number] 2020-Present [address] [address] [place] [address] [id number] 2020 Medicare MEDICARE [employer] O PPO MEDICARE [employer] O PPO [id number] 2020-Present [address] [place] [id number] 2019 Medicare (Managed Care) JESSICA JEAN [id number] 2013 Private Health Insurance [id number] 2007 Medicare [id number] 1942 Unknown [id number] 2.840.1.456807.3.579. 2.594 1942 Unknown [id number] 2.840.1.391099.3.579. 2.594 Unknown [id number] 2.840.1.457282.3.579. 2.462 Unknown [id number] 2.840.1.277812.3.579. 2.462 Unknown [id number] 2.16840.1.597884.3.579. 2.462 Unknown [id number] 2.16840.1.564974.3.579. 2.462 Unknown [id number] 2.16840.1.813849.3.579. 2.462 Unknown [id number] 2.840.1.368225.3.579. 2.462 Unknown [id number] 2.16.840.1.100290.3.579. 2.462 Unknown [id number] 2.16.840.1.950618.3.579. 2.462 Unknown [id number] 2.16.840.1.790380.3.579. 2.462 Unknown [id number] 2.16.840.1.382577.3.579. 2.462 Unknown [id number] 2.16.840.1.341196.3.579. 2.462 Unknown [id number] 2.16.840.1.609802.3.579. 2.462 Unknown [id number] 2.840.1.840476.3.579. 2.462 Unknown [id number] 2.840.1.940517.3.579. 2.462 Unknown [id number] 2.840.1.621239.3.579. 2.462 Unknown [id number] 2..840.1.427008.3.579. 2.462 Unknown [id number] 2..840.1.386137.3.579. 2.462 Unknown [id number] 2..840.1.907270.3.579. 2.462 Unknown [id number] 2..840.1.178572.3.579. 2.462 Unknown [id number] 2.840.1.657160.3.579. 2.462 Unknown [id number] 2..840.1.418428.3.579. 2.462 Unknown [id number] 2..840.1.930970.3.579. 2.462 Unknown [id number] 2.16.840.1.728768.3.579. 2.462 Unknown [id number] 2.16.840.1.397941.3.579. 2.462 Unknown [id number] 2..840.1.357012.3.579. 2.462 Unknown [id number] 2.16.840.1.891286.3.579. 2.462 Unknown [id number] 2.16840.1.391028.3.579. 2.462 Unknown [id number] 2.16.840.1.673470.3.579. 2.462 Unknown [id number] 2.16840.1.244256.3.579. 2.462 Unknown [id number] 2.16840.1.941929.3.579. 2.462 Unknown [id number] 2.16840.1.413755.3.579. 2.462 Unknown [id number] 2.16840.1.965523.3.579. 2.462 Unknown [id number] 2.16840.1.258750.3.579. 2.462 Social History Date Type Detail Facility Start: 09-03-2020 End: 12-02-2024 Tobacco smoking status NHIS Former smoker [facility] Start: 05-09-1960 End: 05-09-2012 History of tobacco use Current smoker [facility] Start: [birth year]-09-1962 End: 05-09-2012 History of tobacco use Cigarette Smoker [facility] Start: 09-03-2020 End: 09-30-2024 Cigarettes smoked current (pack per day) - Reported [facility] Start: 07-16-2020 End: 09-03-2020 Tobacco use and exposure Current user [facility] History of tobacco use Snuff User [facility] History of tobacco use Chews Tobacco [facility] Start: 11-11-2020 End: 11-04-2022 Alcohol intake Ex-drinker (finding) [facility] Start: 11-11-2020 History SDOH Financial 5 [facility] Start: 11-11-2020 History SDOH Food Worry 1 [facility] Start: 11-11-2020 History SDOH Transpo rt Med 2 [facility] Start: 09-09-2020 Tobacco Comment 09/09/20- 1 pac k of chewing tobacco in a 1-1.5/week? [facility] Start: 1940 Sex Assigned At Not on file O [facility] Exposure to SARS-CoV -2 (event) Not sure [facility] Start: 04-20-2021 End: 07-05-2022 Tobacco smoking status NHIS Unknown if ever smoked [facility] Start: 05-25-2019 Spouse/ Signif icant Other [facility] Start: 1940 Sex Assigned At Male [facility] Start: 11-10-2021 End: 11-04-2022 Tobacco Comment 11/10/2021- pack of chewing tobacco in a 1-1.5/week? [facility] Start: 11-19-2021 End: 09-30-2024 Tobacco use panel [facility] Start: 02-26-2012 How hard is it for y ou to pay for the very basics like food, housing, medical care, and heating Not hard at all [facility] (I/We) worried diandra er (my/our) food would run out before (I/we) got money to buy more. Never true [facility] Start: 06-07-2024 End: 07-03-2024 Sex Male (finding) [facility] Start: 09-30-2024 End: 11-21-2024 Alcoholic beverage intake Current non-drinker of alcohol (finding) [facility] Start: 12-06-2024 Tobacco smoking stat us NHIS Smokes tobacco daily (finding) [facility] Medical Equipment Procedure Code Equipment Code Equipment Origin al Text Equipment Identifier Dates Thyroidectomy DRESSING,FIBRILL AR 2 1960 FDA Start: 10-26-2020 Thyroidectomy SUTURE,LIGA CLIP MED [id number] FDA Start: 10-26-2020 Thyroidectomy SUTURE,LIGA CLIP MED [id number] FDA Start: 10-26-2020 Thyroidectomy SUTURE,LIGA CLIP SM LT-100 FDA Start: 10-26-2020 Thyroidectomy DRESSING,FIBRILL AR 2 1960 FDA Start: 10-26-2020 Thyroidectomy SUTURE,LIGA CLIP [...] FDA Start: 10-26-2020 Thyroidectomy DRESSING,FIBRILL AR 1X2 1961 FDA Start: 10-26-2020 Thyroidectomy SUTURE,LIGA CLIP MED [id number] FDA Start: 10-26-2020 Thyroidectomy SUTURE,LIGA CLIP MED [id number] FDA Start: 10-26-2020 Thyroidectomy SUTURE,LIGA CLIP SM LT-100 FDA Start: 10-26-2020 Goals Date Patient Goal Desired Activity /State Functional Status Date Assessment Result Facility 07-19-2013 Are you deaf, or do you have serious difficulty hearing No 07/19/2013 9:55 AM Dacia Tristan RN No [facility] 07-19-2013 Are you blind, or do you have serious difficulty seeing, even when wearing glasses No 07/19/2013 9:55 AM Dacia Tristan RN No [facility] 07-19-2013 Do you have serious difficulty walking or climbing stairs No 07/19/2013 9:55 AM Dacia Tristan RN No [facility] 07-19-2013 Because of a physica l, mental, or emotional condition, do you have difficulty doing errands alone such as visiting a physician's office or shopping No 07/19/2013 9:55 AM Dacia Tristan RN No [facility] Mental Status Date Assessment Result Facility 12-11-2024 Cognitive function Voice/Name [facility] Work Phone: 12-02-2024 Cognitive function Awake;Alert;A ppropriate; Follows Commands [facility] Work Phone: 10-21-2024 Cognitive function Voice/Name [facility] Work Phone: 08-26-2022 Cognitive function Awake;Alert;A ppropriate; Follows Commands [facility] Work Phone: 08-26-2021 Cognitive function Voice/Name [facility] Work Phone: 07-19-2013 Because of a physica l, mental, or emotional condition, do you have serious difficulty concentrating, remembering, or making decisions No 07/19/2013 9:55 AM Dacia Tristan RN No [facility] Clinical Notes 07-14-2020 to 12-11-2024 Note Date & Type Note Facility 12-11-2024 Consult note [facility] 12-11-2024 Consult note Note Date/Time December 11, 2024 [facility] Medical Records Department [address] [place] [address] Anesthesia Postop Eval II 12/11/24 1329 MR#: [id number] Acct: [id number] Name: MARGAUX SANDERSON Rep #:[id number] : 1940 84 From: Nitin Chung PCP: Dr. Alexander Steiner MD Status:REG S DC Y Race: C Location: [place] [address] Anesthesia Postop Eval I Sum Anesthesia Postop Eval I Summary Anesthesia Postop Eval I Summary: Anesthesia Postop Eval I: Assessment Summary Airway patent Spontaneous unlabored respirations Mental status nausea Vomiting Anesthesia Postop Eval I: Fluid Summary Crystalloid volume administer (ml) Colloids volume administered ( ml) Blood Product volume administered (ml) Total IV fluid infused Anesthesia Postop Eval I: Summary Notes Anesthesia Complication Anesthesia Complication Comment: Post-operative progress note Anesthesia: Postop Eval II Evaluation Mental status: Awake and Calm Pain Level: 1 nausea: No Vomiting: No Complications Anesthesia Complication: No 12/11/241328 <Electronically signed by Nitin Santiago MD> Date _ Nitin Santiago MD Cosigner Signature: Date CC: ~ Signed [facility] Work Phone: 1(521) 152-126709-17-2025 Procedure note [facility] Medical Records Department [address] [facility] [facility] [place] [address] Provation Physician Letter MR#: [id number] Acct: [id number] Name: MARGAUX SANDERSON Rep #:[id number] : 1940 84 From: Zuleyma Storm MD PCP: Dr. Alexander Steiner MD Status:REG S DC 12/11/2024 Alexander Steiner MD [address] [place] [address] Re : Colonoscopy procedure for Margaux Sanderson Dear Dr. Steiner This procedure was performed on Wednesday, December 11, 2024. My impressions and recommendations are as follows: Impressions : - Seven 3 to 6 mm polyps in the sigmoid colon, in the descending colon and in the transverse colon, removed with a hot snare. Resected and retrieved. - One 25 mm polyp in the sigmoid colon, removed piecemeal using a hot snare. Resected and retrieved. - One 8 mm polyp in the sigmoid colon, removed with a hot snare. Resected and retrieved. Tattooed. - Multiple medium, non-bleeding polyps at the hepatic flexure, in the ascending colon and in the cecum. Resection not attempted. Tattooed. Recommendations : - Repeat colonoscopy 6 month- 1 year for surveillance based on pathology results. - Discharge patient to home. - Clear liquid diet today. - Continue present medications. - No aspirin, ibuprofen, naproxen, or other non-steroidal anti-inflammatory drugs for 3 days after polyp removal. 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 My findings are described in the full procedure note, which is enclosed. If I can be of further assistance, please feel free to contact me at Doctor phone number(s): , Work: . Sincerely, MD Zuleyma Doe MD 12/11/2024 12:21:27 PM This report has been signed electronically. 12/11/24 1221 Date _ Zuleyma Storm MD Cosigner Signature: Date (if indicated) CC: Dr. Alexander Steiner MD; Dr. Zuleyma Storm MD ~ Date Dictated: 12/11/24 1005 Date Transcribed: Bridge Repairer: TR Signed [facility]09-17-2025 Procedure note [facility] Medical Records Department [address] [place] [address] Colonoscopy Report MR#: [id number] Acct: [id number] Name: MARGAUX SANDERSON Rep #:[id number] : 1940 84 From: Zuleyma Storm MD PCP: Dr. Alexander Steiner MD Status:REG S DC Patient Name: Margaux Sanderson Procedure Date: 12/11/2024 10:05 AM Date of : 1940 Age: 84 Procedure: Colonoscopy Indications: Gastrointestinal occult blood loss, Follow-up for history of adenomatous polyps in the colon Providers: Zuleyma Storm MD Referring MD: Alexander Steiner MD Medicines: Monitored Anesthesia Care Patient Profile: This is an 84 year old male. Last Colonoscopy: within the past month. Complications: No immediate complications. Procedure: Pre-Anesthesia Assessment: - Prior to the procedure, a History and Physical was performed, and patient medications and allergies were reviewed. The patient's tolerance of previous anesthesia was also reviewed. The risks and benefits of the procedure and the sedation options and risks were discussed with the patient. All questions were answered, and informed consent was obtained. Prior Anticoagulants: The patient has taken no anticoagulant or antiplatelet agents. ASA Grade Assessment: Per anesthesia. After reviewing the risks and benefits, the patient was deemed in satisfactory condition to undergo the procedure. - Prior to the procedure, a History and Physical was performed, and patient medications and allergies were reviewed. The patient's tolerance of previous anesthesia was also reviewed. The risks and benefits of the procedure and the sedation options and risks were discussed with the patient. All questions were answered, and informed consent was obtained. Prior Anticoagulants: The patient has taken no anticoagulant or antiplatelet agents except for aspirin. ASA Grade Assessment: Per anesthesia. After reviewing the risks and benefits, the patient was deemed in satisfactory condition to undergo the procedure. After I obtained informed consent, the scope was passed under direct vision. Throughout the procedure, the patient's blood pressure, pulse, and oxygen saturations were monitored continuously. The pediatric colonoscope was introduced through the anus and advanced to the cecum, identified by the appendiceal orifice, ileocecal valve and palpation. The colonoscopy was performed with moderate difficulty due to a redundant colon and a tortuous colon, polyps just around fold/turn. [Solution]. Scope In: 10:19:26 AM Scope Withdrawal Time 1 hour 18 minutes 29 seconds Scope Out: 11:46:00 AM Total Procedure Duration Time 1 hour 26 minutes 34 seconds Findings: The perianal and digital rectal examinations were normal. Seven semi-pedunculated polyps were found in the sigmoid colon, descending colon and transverse colon. The polyps were 3 to 6 mm in size. These polyps were removed with a hot snare. Resection and retrieval were complete. A 25 mm polyp was found in the sigmoid colon. The polyp was semi-pedunculated. The polyp was removed with a piecemeal technique using a hot snare. Resection and retrieval were complete. Sent for frozen/ r/o malignancy- friable tissue; due to tortuous colon/redundant colon unable to visualize base on re-entry after retrieving polyp. Estimated blood loss was minimal. An 8 mm polyp was found in the sigmoid colon. The polyp was semi-pedunculated. The polyp was removed with a hot snare. Resection and retrieval were complete. Area was tattooed with an injection of Fiona ink. at 40 cm Multiple carpet-like and multi-lobulated, non-bleeding polyps were found in the hepatic flexure, ascending colon and cecum. The polyps were medium in size. Polypectomy was not attempted due to polyp size (too large to be excised). Area was tattooed with an injection of Fiona ink-distal to hepatic flexure polyps (most distal polyps not removed). Polypectomy was not attempted due to polyp size (too large to be excised). Impression: - Seven 3 to 6 mm polyps in the sigmoid colon, in the descending colon and in the transverse colon, removed with a hot snare. Resected and retrieved. - One 25 mm polyp in the sigmoid colon, removed piecemeal using a hot snare. Resected and retrieved. - One 8 mm polyp in the sigmoid colon, removed with a hot snare. Resected and retrieved. Tattooed. - Multiple medium, non-bleeding polyps at the hepatic flexure, in the ascending colon and in the cecum. Resection not attempted. Tattooed. Recommendation: - Repeat colonoscopy 6 month- 1 year for surveillance based on pathology results. - Discharge patient to home. - Clear liquid diet today. - Continue present medications. - No aspirin, ibuprofen, naproxen, or other non-steroidal anti-inflammatory drugs for 3 days after polyp removal. 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 Procedure Code(s): --- Professional --- 34325, Colonoscopy, flexible; with removal of tumor(s), polyp(s), or other lesion(s) by snare technique 65650, Colonoscopy, flexible; with directed submucosal injection(s), any substance Diagnosis Code(s): --- Professional --- D12.5, Benign neoplasm of sigmoid colon D12.4, Benign neoplasm of descending colon D12.3, Benign neoplasm of transverse colon (hepatic flexure or splenic flexure) D12.2, Benign neoplasm of ascending colon D12.0, Benign neoplasm of cecum R19.5, Other fecal abnormalities Z86.010, Personal history of colonic polyps CPT copyright 2021 [employer]. All rights reserved. The codes documented in this report are preliminary and upon smoke jumper supervisor review may be revised to meet current compliance requirements. MD Zuleyma Doe MD 12/11/2024 12:21:27 PM This report has been signed electronically. Number of Addenda: 0 Note Initiated On: 12/11/2024 10:05 AM 12/11/24 1221 Date _ Zuleyma Storm MD Cosigner Signature: Date (if indicated) CC: Dr. Alexander Steiner MD; Dr. Zuleyma Storm MD ~ Date Dictated: 12/11/24 1005 Date Transcribed: Bridge Repairer: TR Signed [facility]09-17-2025 History and physical note Author Zuleyma Storm [facility] Note Date/Time December 11, 2024 10:03am [facility] Medical Records Department [address] [place] [address] History & Physical Exam 12/11/2455 MR#: [id number] Acct: [id number] Name: MARGAUX SANDERSON Rep #:[id number] : 1940 84 From: Zuleyma Storm MD PCP: Dr. Alexander Steiner MD Status:REG S DC Location: [place] [address] History and Physical Date of Admission: 12/11/24 Date of Service: 12/04/24 MR#: [id number] Acct: [id number] Name: MARGAUX SANDERSON Rep #: [id number] : 1940 Provider: Dr. Zuleyma Storm MD Age/Sex: 84/M Location: [facility] Status: Signed Intake Vital Signs 12/02/2508:16 12/02/2509:30 12/04/2512:25 Height 5 ft 7 in 5 ft 7 in 5 ft 7 in Weight: 115 lb BMI 18.0 BP 127/70 H Blood Pressure Location Lt brachial Position Sitting Respiration 18 Pulse 105 H Pulse Source Monitor Pulse Oximetry (%) 98 Oxygen Delivery Method room air Intake Visit Reasons: 2ND OPINION Chief Complaint: 2nd opinion, surgery Is patient in pain?: No Allergies No Known Allergies Allergy (Verified 12/04/24 13:32) Medications ?Medication ?Instructions ?Recorded ?Confirmed ?Type aspirin 81 mg tablet,delayed 81 mg PO DAILY 01/27/16 12/04/24 History release terazosin 1 mg capsule 1 mg PO DAILY 04/18/19 12/04/24 History omeprazole 40 mg capsule,delayed 40 mg PO DAILY 05/25/19 12/04/24 History release tamsulosin 0.4 mg capsule 0.4 mg PO DAILY 04/20/21 12/04/24 Histor y budesonide 0.25 mg/2 mL suspension 0.25 mg inhalation BID 10/20/21 12/04/24 History for nebulization multivitamin 1 tab PO DAILY 12/12/22 12/04/24 History finasteride 5 mg tablet 5 mg PO DAILY 11/15/23 12/04/24 History levothyroxine 112 mcg tablet 112 mcg PO QDAY 11/28/23 12/04/24 Histor y roflumilast 500 mcg tablet 500 mcg PO QDAY 09/24/24 12/04/24 Histor y (Daliresp) albuterol 90 mcg/actuation aerosol mcg inhalation 12/02/24 12/04/24 History inhaler atorvastatin 80 mg tablet (Lipitor) 60 mg PO QHS 12/02/24 12/04/24 History metronidazole 500 mg tablet 500 mg PO .COMPLEX #6 tabs 12/04/2411/25 Rx neomycin 500 mg tablet 500 mg PO .COMPLEX pre-op 12/04/2412/04 Rx antibiotics #6 tabs sodium sul 1.479 gram-potas ch See Rx Instructions PO PER PKG DIR 12/04/24 12/04/24 Rx 0.188 gram-magnes sul 0.225 gram #1 pkg tablet (Sutab) Have you fallen in the past year?: [...] allergies Surgical History History of thyroidectomy, total (~10/2020) Hx of lithotripsy History of needle biopsy [...] daily uses ibuprofen as needed HPI HPI HPI: 84-year-old male presents for a second opinion due to multiple colon polyps and 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 Patient patient and family do not want to go all the way up to [place] for another colonoscopy and surgery. Plan was for a 2-day prep as he had a poor prep for the first 1 and a colonoscopy the first day and secondary laparoscopic righthemicolectomy. Discussed with family and the patient that would be a reasonableplan due to the poor prep. Did review patient's previous colonoscopy note, pictures and pathology. Patient did just get 2 units packed red blood cells on Monday current hemoglobin is 11.4 from 9. Patient's last colonoscopy was 12 years prior as he was told he did not need another 1 but has always had polyps in the past. ROS General General: Yes weight change and fatigue; No appetite, colon cancer, breast cancer or weakness HEENT HEENT: Yes eye surgery; No difficulty swallowing, eye injury, swollen glands or hoarseness Endo Endocrine: No thyroid disease, diabetes mellitus, thyroid cancer, Hair loss, heat intolerance or cold intolerance Skin Skin: No rash or changing moles Musc Musculoskeletal: Yes back problems and arthritis; No rheumatoid arthritis, gout or joint pain Cardio Cardiovascular: No murmur, pacemaker, heart disease, atrial fibrillation, high blood pressure, heart attack, heart stent, palpitations, shortness of breath with exertion or chest pain Psych Psychiatric: No depression, anxiety or hearing voices Resp Respiratory: Yes shortness of breath, No sleep apnea, No cough, Yes COPD, No asthma, No emphysema and No wheezing Gastro Gastrointestinal: No abdominal pain, No nausea or vomiting, No diarrhea, Yes constipation, Yes blood in stool, Yes acid reflux, Yes hemorrhoids, No ulcers, No gallbladder problem and No black,tarry stools Pool Hematologic: No blood thinners, No blood disorders, No bleeding, Yes anemia and No blood clots Neuro Neurologic: No system reviewed and no additional complaints, except as documented, No as per HPI, No abnormal gait, No abnormal hearing, No abnormal movements, No abnormal speech, No behavioral changes, No burning sensations, No confusion, No convulsions, No disequilibrium, No dizziness, No localized weakness, No frequent falls, No headache(s), No lack of coordination, No loss ofvision, No memory loss, No numbness, No other visual disturbances, No radicular pain, No restless legs, No sensory deficit, No syncope, No tingling, No tremor(s), No weakness and No other Exam Const General: cooperative, comfortable and no acute distress Nutritional Appearance: underweight HENMT Head: normocephalic and atraumatic Neck Neck: supple Resp Effort & Inspection: normal respiratory effort Cardio Rate: regular rate GI Inspection: non-distended Palpation: soft and nontender Skin General: no rashes or lesions noted Neuro General: CN's II-XI intact bilaterally Extrem General: normal to inspection Psych Mental Status: mental status grossly normal Attitude: cooperative Assessment and Plan Assessment and Plan (1) Tubulovillous adenoma: Status: Acute Comment: right cecal unresected due to size at colonoscopy (2) Multiple polyps of sigmoid colon: Status: Acute (3) Anemia: Status: Acute Orders: Orders Colonoscopy 12/11/24 Medications: New sod sulf-pot chloride-mag sulf 1.479-0.188- 0.225 gram (Sutab) PO PER PKG DIR 1 pkg 0RF metronidazole Take 2 (two) tablets at 1300, 1500, 2300 6 tabs 0RF neomycin Take two (2) 500 mg tablets PO at 1300, 1500, 2300 6 tabs 0RF pre-op antibiotics Plan Patient did to receive 2 units packed red blood cells on Monday- current hemoglobin is 11.4. Could also encourage patient to be taking protein drinks 3 daily ideally with about 30 g of protein as he has had some weight loss per daughter starting now and postoperatively. I have discussed the above with the patient. I have offered the patient colonoscopy reevaluation for any residual polyps due to previous poor prep I have explained the risks/benefits of the procedure and described the procedure. I have discussed the risks with the patient, including but not limited to: infection, bleeding, perforation of the GI tract requiring emergency surgery, inability to complete the procedure, injury to any internal organs, complications of anesthesia, etc. - the patient understands and agrees to proceed. I have answered all the patient's questions to the patient's satisfaction and the patient has no further questions. The patient has been given instructions for the colon cleansing preparation. 2- day prep, first day soft food okay then clear liquids magnesium citrate first day and then Sutab the second day Will plan for laparoscopic right hemicolectomy the following day. Did discuss the anatomy and procedure: ERAs laparoscopic right colectomy, possible open withthe patient. Including risks, but not limited to, bleeding, infection (superficial or intraabdominal), injury to another organ (small bowel, colon, ureter, etc.) requiring additional procedures, and blood clots. Also, discussed the pre-op, colon prep and antibiotics. All questions were answered. Zuleyma Storm M.D. Pager: [phone] [facility] [address] [place] [address], [address] [place] [address] Office: [phone] Coding Level of Care Code Off vis,new,level 4 Diagnoses Tubulovillous adenoma D36.9 Multiple polyps of sigmoid colon K63.5 Anemia D64.9 Clinical Quality Measures Falls Risk Screening/Assistive Devices Have you fallen in the past year?: No 12/05/24 1045 <Electronically signed by Zuleyma Storm MD> Date Zuleyma Storm MD 12/11/24 0955 <Electronically signed by Zuleyma Storm MD> Cosigner Signature (if applicable): CC: Dr. Alexander Steiner MD; Dr. Zuleyma Storm MD~ Signed ADDENDUM by Dr. Zuleyma Storm MD on 12/11/24 at 1003 Addendum I have examined the patient and the H&P has been reviewed. There are no clinicalchanges since date of exam. 12/11/24 1003<Electronically signed by Zuleyma Storm MD> Cosigner Signature (if applicable): cc: Dr. Alexander Steiner MD; Dr. Zuleyma Storm MD ~* Signed [facility] Work Phone: 1(145) 200-788609-17-2025 Consult note Author Nitin Santiago [facility] Note Date/Time December 11, 2024 9:45am [facility] Medical Records Department [address] [place] [address] Pre-Anesthesia Evaluation 12/11/24 0936 MR#: [id number] Acct: [id number] Name: MARGAUX SANDERSON Rep #:[id number] : 1940 84 From: Nitin Chung PCP: Dr. Alexander Steiner MD Status:REG S DC Y Race: C Location: [place] [address] ASA Classification* ASA Classification ASA Classification: 3 Assessment & Plan Anesthesia* Anesthesia Assessment Anesthesia Assessment: Discussed sedation and/or anesthesia options, risks, benefits, and alternatives with patient/parents/legal guardian/POA. Questions invited. The patient/parents/legal guardian/POA seems to understand and agrees to proceedwith anesthesia plan. Reviewed the physical assessment, medical history, allergy history and patient home medications list prior to surgery/procedure/anesthetic and documented any changes. Performed airway and anesthesia risk assessments. Anesthesia Type Anesthesia Type: MAC History Source History Obtained from:: Patient and Chart Anesthesia Focused Assessment* Temperature: 98.2 F Pulse Rate: 79 Blood Pressure: 162/77 Respiratory Rate: 16 Pulse Ox: 99 Oxygen Delivery Method: Room Air Airway Assessment Mouth opens: >3 cm Mallampati Score: II Teeth Condition: Dentures Neck Range of motion (ROM): Limited ROM Labs Anesthesia Preop lab: CBC WBC, (4.4-11.0) 7.7 K/mm3 12/09/24, 10:28 RBC, (4.6-6.2) 5.01 M/mm3 12/09/24, 10:28 Hgb, (13.0-16.5) 11.4 g/dL L 12/09/24, 10: Hct, (40-54) 36.8 % L 12/09/24, 10:28 Plt Count, (150-450) 276 K/mm3 12/09/24, 10:28 CHEMISTRY Potassium, (3.3-5.1) 4.2 mmol/L 11/28/24, 16:30 Sodium, (133-145) 140 mmol/L 11/28/24, 16:30 Magnesium, (1.5-2.2) 2.0 mg/dL 12/09/24, 10:28 BUN, (4-19) 8 mg/dL 11/28/24, 16:30 Creatinine, (0.70-1.20) 0.70 mg/dL 11/28/24, 16:30 Glucose, (70-99) 100 mg/dL H 11/28/24, 16:30 TSH, (0.300-4.200) 0.074 uIU/mL L 09/16/24, 10:48 COAG PT, (11.7-14.9) 14.0 SECONDS 11/28/24, 16:30 Pre-Assessment Diagnosis/Proposed Procedure Planned Operative Procedure(s): COLONOSCOPY Anesthesia History Anesthesia History - patient resource specialist: Anesthesia History - patient resource specialist Hx Hospitalization No 12/06/24 09:42 Any Problems With Anesthesia No 12/06/24 09:42 Cholinesterase deficiency No 12/06/24 09:42 You/Your Family Experience No 12/06/24 09:42 fever (hyperthermia) with Relationship Recent Exposure to Contagious No 12/11/24 09:18 Disease Does patient have nerve No 12/06/24 09:42 stimulator Patient instructed to have device shut off --Does patient have Pacemaker No 12/11/24 09:18 or ICD? When Was Last Pacemaker Check QUESTION #4 FULL TEXT: You/Your Family Experience fever (hyperthermia) with Anesthesia Last Oral Intake Last Oral intake: Last Oral Intake NPO since 00:00 12/11/24 09:18 Meds taken in AM with sips of No 12/11/24 09:18 water? 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 - patient resource specialist: PONV - patient resource specialist Female No 12/06/24 09:19 HX of Motion Sickness No 12/06/24 09:19 HX of N/V After Surgery No 12/06/24 09:19 Non-Smoker Yes 12/06/24 09:19 Duration of Surgery greater No 12/06/24 09:19 than 60 minutes Number of Risk Factors 1 12/06/24 09:19 PONV Score Low Risk 12/06/24 09:19 Height & Weight Height & Weight: Anesthesia: Height & Weight Height 5 ft 7 in 12/11/24 09:18 Weight: 51 kg 12/11/24 09:18 Body Mass Index (BMI) 17.6 12/11/24 09:18 Respiratory Assessment Respiratory Assessment - patient resource specialist: Respiratory Tract Infection Hx - patient resource specialist Hx Respiratory Tract Infection No 12/06/24 09:42 STOP Sleep Apnea STOP Sleep Apnea - patient resource specialist: STOP Sleep Apnea - patient resource specialist Hx Hypertension Yes: NO MEDS FOR 4 MONTHS/ 12/06/24 09:42 CURRENTLY HYPOTENSIVE Hx Sleep Apnea No 12/06/24 09:42 CPAP BIPAP Do you snore loudly (louder No 12/06/24 09:19 than talking or can be heard Do you often feel tired/ No 12/06/24 09:19 fatigued/ sleepy during daytime? Has anyone observed you stop No 12/06/24 09:19 breathing during sleep? STOP Results Negative 12/06/24 09:19 QUESTION #5 FULL TEXT : Do you snore loudly (louder than talking or can be heard through closed doors)? Tobacco Use History Tobacco Use History - patient resource specialist: Tobacco Use History - patient resource specialist Tobacco Use Smoking Status Current every day smoker 12/06/24 09:42 Hx Tobacco Use Yes 12/06/24 09:42 Years Smoking Packs Smoked per Day Smoking Cessation Date was No - quit smoking greater 12/06/24 09:19 within the last 15 years than 15 years ago Hx Smoking Cessation Date 03/27/08 12/06/24 09:42 Hx Smoking Cessation No 12/06/24 09:42 Counseling Hematologic Medial History Hematologic Hx - patient resource specialist: Hematologic Medical Hx - transplant surgeon Hx of Blood Transfusion Yes 12/06/24 09:19 Hx of Transfusion in last 3 Yes 12/06/24 09:19 Months Date of Last Transfusion (if 11/29/2024 12/06/24 09:19 within last 3 months) Ever experience any problems Yes 12/06/24 09:19 with transfusion(s)? Specify any problems FATIGUE AND HEADACHE 12/06/24 09:19 Hx of Preganancy in last 3 N/A 12/06/24 09:19 Months Nurse Filling Out Transfusion DSCHRIBER 12/06/24 09:19 & Questions: Date: 12/06/24 12/06/24 09:19 Time: 09:21 12/06/24 09:19 Patient unable to answer at this time (ie. confused, unrespo /Reproduction History /Reproductive History - patient resource specialist: /Reproductive Hx- patient resource specialist Hx Now No 12/06/24 09:19 Gestational Age (in weeks): EDC: Hx Hx Para Hx Section SAB No 12/06/24 09:42 Active Medications Active Medications: Current Medications Generic Name Dose Route Start Last Admin Trade Name Freq PRN Reason Stop Dose Admin Lactated Ringer's 1,000 mls @ 15 mls/hr 12/11/24 09:00 12/11/24 09:22 IV 15 mls/hr .Q48H LAWANDA Administration PFSH Medical History Loss of hearing Cancer Thyroid disease Bladder disease Anemia Chewing tobacco use History of diverticulitis Gastric reflux Shortness of breath on exertion History of pain when walking Hypertension History of echocardiogram Erosive esophagitis BPH (benign prostatic hyperplasia) Acute pancreatitis without necrosis or infection, unspecified Osteoporosis Wears glasses Wears dentures Arthritis High cholesterol Back pain Migraine headache Syncope Former smoker Hx of sinus bradycardia History of stress test Cardiology follow-up encounter Bradycardia Coronary artery calcification Matute esophagus Benign neoplasm of colon COPD (chronic obstructive pulmonary disease) Home Medications ?Medication ?Instructions ?Recorded ?Last Taken ?Type aspirin 81 mg tablet,delayed 81 mg PO DAILY HEART HEAL TH 01/27/16 12/04/24 History release terazosin 1 mg capsule 1 mg PO DAILY BPH 04/18/19 0 12/10/24 History omeprazole 40 mg capsule,delayed 40 mg PO DAILY GERD 0 05/25/19 12/10/24 History release tamsulosin 0.4 mg capsule 0.4 mg PO QHS BPH 04/20/21 0 12/10/24 History budesonide 0.25 mg/2 mL suspension 0.25 mg inhalation BID COPD 10/20/21 12/10/24 History for nebulization multivitamin 1 tab PO DAILY SUPPLEMENT 12/10/24 History finasteride 5 mg tablet 5 mg PO DAILY BPH 11/15/23 0 12/10/24 History levothyroxine 112 mcg tablet 112 mcg PO QDAY THYROID 0 11/28/23 12/10/24 History roflumilast 500 mcg tablet 500 mcg PO QDAY COPD 12/10/24 History (Daliresp) albuterol 90 mcg/actuation aerosol 90 mcg inhalation P RN PRN COPD 12/02/24 12/11/24 History inhaler atorvastatin 80 mg tablet (Lipitor) 60 mg PO QHS JEFF STEROL 12/02/24 12/10/24 History ipratropium 0.5 mg-albuterol 3 mg 3 ml inhalation Q6H PRN shortness 12/11/24 Unknown History (2.5 mg base)/3 mL nebulization of breath or wheezing soln Allergy/AdvReac Type Severity Reaction Status Date / Time No Known Allergies Allergy Verified 12/11/24 09:12 Family History Father Diabetes Hypertension CVA (cerebral vascular accident) Mother Thyroid disorder Arthritis Surgical History Hx of right cataract extraction Hx of left cataract extraction History of thyroidectomy, total (~10/2020) Hx of lithotripsy History of needle biopsy (09/16/20) History of colonoscopy with polypectomy History of esophagogastroduodenoscopy History of arthroscopy of knee Social History Smoking Status: Current every day smoker tobacco type: smokeless tobacco how long ago did patient quit smoking: quit 12-14 years ago alcohol intake: never substance use type: does not use what type of physical activity do you participate in: none additional social history: pt denies vaping, denies marijuana use, denies edibles, denies alcohol use, uses baby aspirin daily uses ibuprofen as needed Review of Systems (Anesthesia) ROS Narrative System reviewed and no additional complaints, except as documented. 12/11/24 0945 <Electronically signed by Nitin Santiago MD> Date _ Nitin Santiago MD [facility] Signature: Date CC: ~ Signed [facility] Work Phone: [phone] History and physical note [facility] Medical Records Department [address] [place] [address] History & Physical Exam 12/11/24954 MR#: [id number] Acct: [id number] Name: MARGAUX SANDERSON Rep #:[id number] : 1940 84 From: Zuleyma Storm MD PCP: Dr. Alexander Steiner MD Status:REG S TX Location: [place] [address] History and Physical Date of Admission: 12/11/24 Date of Service: 12/04/24 MR#: [id number] Acct: [id number] Name: MARGAUX SANDERSON Rep #: [id number] : 1940 Provider: Dr. Zuleyma Storm MD Age/Sex: 84/M Location: [facility] Status: Signed Intake Vital Signs 12/02/2508:16 12/02/2509:30 12/04/2512:25 Height 5 ft 7 in 5 ft 7 in 5 ft 7 in Weight: 115 lb BMI 18.0 BP 127/70 H Blood Pressure Location Lt brachial Position Sitting Respiration 18 Pulse 105 H Pulse Source Monitor Pulse Oximetry (%) 98 Oxygen Delivery Method room air Intake Visit Reasons: 2ND OPINION Chief Complaint: 2nd opinion, surgery Is patient in pain?: No Allergies No Known Allergies Allergy (Verified 12/04/24 13:32) Medications ?Medication ?Instructions ?Recorded ?Confirmed ?Type aspirin 81 mg tablet,delayed 81 mg PO DAILY 01/27/16 12/04/24 History release terazosin 1 mg capsule 1 mg PO DAILY 04/18/19 12/04/24 History omeprazole 40 mg capsule,delayed 40 mg PO DAILY 05/25/19 12/04/24 History release tamsulosin 0.4 mg capsule 0.4 mg PO DAILY 04/20/21 12/04/24 Histor y budesonide 0.25 mg/2 mL suspension 0.25 mg inhalation BID 10/20/21 12/04/24 History for nebulization multivitamin 1 tab PO DAILY 12/12/22 12/04/24 History finasteride 5 mg tablet 5 mg PO DAILY 11/15/23 12/04/24 History levothyroxine 112 mcg tablet 112 mcg PO QDAY 11/28/23 12/04/24 Histor y roflumilast 500 mcg tablet 500 mcg PO QDAY 09/24/24 12/04/24 Histor y (Daliresp) albuterol 90 mcg/actuation aerosol mcg inhalation 12/02/24 12/04/24 History inhaler atorvastatin 80 mg tablet (Lipitor) 60 mg PO QHS 12/02/24 12/04/24 History metronidazole 500 mg tablet 500 mg PO .COMPLEX #6 tabs 12/04/2411/25 Rx neomycin 500 mg tablet 500 mg PO .COMPLEX pre-op 12/04/2412/04 Rx antibiotics #6 tabs sodium sul 1.479 gram-potas ch See Rx Instructions PO PER PKG DIR 12/04/24 12/04/24 Rx 0.188 gram-magnes sul 0.225 gram #1 pkg tablet (Sutab) Have you fallen in the past year?: [...] allergies Surgical History History of thyroidectomy, total (~10/2020) Hx of lithotripsy History of needle biopsy [...] daily uses ibuprofen as needed HPI HPI HPI: 84-year-old male presents for a second opinion due to multiple colon polyps and 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 Patient patient and family do not want to go all the way up to [place] for another colonoscopy and surgery. Plan was for a 2-day prep as he had a poor prep for the first 1 and a colonoscopy the first day and secondary laparoscopic righthemicolectomy. Discussed with family and the patient that would be a reasonableplan due to the poor prep. Did review patient's previous colonoscopy note, pictures and pathology. Patient did just get 2 units packed red blood cells on Monday current hemoglobin is 11.4 from 9. Patient's last colonoscopy was 12 years prior as he was told he did not need another 1 but has always had polyps in the past. ROS General General: Yes weight change and fatigue; No appetite, colon cancer, breast cancer or weakness HEENT HEENT: Yes eye surgery; No difficulty swallowing, eye injury, swollen glands or hoarseness Endo Endocrine: No thyroid disease, diabetes mellitus, thyroid cancer, Hair loss, heat intolerance or cold intolerance Skin Skin: No rash or changing moles Musc Musculoskeletal: Yes back problems and arthritis; No rheumatoid arthritis, gout or joint pain Cardio Cardiovascular: No murmur, pacemaker, heart disease, atrial fibrillation, high blood pressure, heart attack, heart stent, palpitations, shortness of breath with exertion or chest pain Psych Psychiatric: No depression, anxiety or hearing voices Resp Respiratory: Yes shortness of breath, No sleep apnea, No cough, Yes COPD, No asthma, No emphysema and No wheezing Gastro Gastrointestinal: No abdominal pain, No nausea or vomiting, No diarrhea, Yes constipation, Yes blood in stool, Yes acid reflux, Yes hemorrhoids, No ulcers, No gallbladder problem and No black,tarry stools Pool Hematologic: No blood thinners, No blood disorders, No bleeding, Yes anemia and No blood clots Neuro Neurologic: No system reviewed and no additional complaints, except as documented, No as per HPI, No abnormal gait, No abnormal hearing, No abnormal movements, No abnormal speech, No behavioral changes, No burning sensations, No confusion, No convulsions, No disequilibrium, No dizziness, No localized weakness, No frequent falls, No headache(s), No lack of coordination, No loss ofvision, No memoryloss, No numbness, No other visual disturbances, No radicular pain, No restless legs, No sensory deficit, No syncope, No tingling, No tremor(s), No weakness and No other Exam Const General: cooperative, comfortable and no acute distress Nutritional Appearance: underweight HENMT Head: normocephalic and atraumatic Neck Neck: supple Resp Effort & Inspection: normal respiratory effort Cardio Rate: regular rate GI Inspection: non-distended Palpation: soft and nontender Skin General: no rashes or lesions noted Neuro General: CN's II-XI intact bilaterally Extrem General: normal to inspection Psych Mental Status: mental status grossly normal Attitude: cooperative Assessment and Plan Assessment and Plan (1) Tubulovillous adenoma: Status: Acute Comment: right cecal unresected due to size at colonoscopy (2) Multiple polyps of sigmoid colon: Status: Acute (3) Anemia: Status: Acute Orders: Orders Colonoscopy 12/11/24 Medications: New sod sulf-pot chloride-mag sulf 1.479-0.188- 0.225 gram (Sutab) PO PER PKG DIR 1 pkg 0RF metronidazole Take 2 (two) tablets at 1300, 1500, 2300 6 tabs 0RF neomycin Take two (2) 500 mg tablets PO at 1300, 1500, 2300 6 tabs 0RF pre-op antibiotics Plan Patient did to receive 2 units packed red blood cells on Monday- current hemoglobin is 11.4. Could also encourage patient to be taking protein drinks 3 daily ideally with about 30 g of protein as he has had some weight loss per daughter starting now and postoperatively. I have discussed the above with the patient. I have offered the patient colonoscopy reevaluation for any residual polyps due to previous poor prep I have explained the risks/benefits of the procedure and described the procedure. I have discussed the risks with the patient, including but not limited to: infection, bleeding, perforation of the GItract requiring emergency surgery, inability to complete the procedure, injury to any internal organs, complications of anesthesia, etc. - the patient understands and agrees to proceed. I have answered all the patient's questions to the patient's satisfaction and the patient has no further questions. The patient has been given instructions for the colon cleansing preparation. 2- day prep, first day soft food okay then clear liquids magnesium citrate first day and then Sutab the second day Will plan for laparoscopic right hemicolectomy the following day. Did discuss the anatomy and procedure: ERAs laparoscopic right colectomy, possible open withthe patient. Including risks, but not limited to, bleeding, infection (superficial or intraabdominal), injury to another organ (small bowel, colon, ureter, etc.) requiring additional procedures, and blood clots. Also, discussed the pre-op, colon prep and antibiotics. All questions were answered. Zuleyma Storm M.D. Pager: [phone] [facility] [address] [place] [address], [address] [place] [address] Office: [phone] Coding Level of Care Code Off vis,new,level 4 Diagnoses Tubulovillous adenoma D36.9 Multiple polyps of sigmoid colon K63.5 Anemia D64.9 Clinical Quality Measures Falls Risk Screening/Assistive Devices Have you fallen in the past year?: No 12/05/24 1045 Date Zuleyma Storm MD 12/11/24 0955 Cosigner Signature (if applicable): CC: Dr. Alexander Steiner MD; Dr. Zuleyma Storm MD~ Signed ADDENDUM by Dr. Zuleyma Storm MD on 12/11/24 at 1003 Addendum I have examined the patient and the H&P has been reviewed. There are no clinicalchanges since date of exam. 12/11/24 1003 Cosigner Signature (if applicable): cc: Dr. Alexander Steiner MD; Dr. Zuleyma Storm MD ~* Signed [facility]09-17-2025 [facility] Medical Records Department [address] [place] [address] History Physical Exam 12/11/24954 MR#: [id number] Acct: [id number] Name: MARGAUX SANDERSON Rep #: [id number] : 1940 84 From: Zuleyma Storm MD PCP: Dr. Alexander Steiner MD Status:[facility] Location: [place] [address] History and Physical Date of Admission: 12/11/24 Date of Service: 12/04/24 MR#: [id number] Acct: [id number] Name: MARGAUX SANDERSON Rep #: [id number] : 1940 Provider: Dr. Zuleyma Storm MD Age/Sex: 84/M Location: [facility] Status: Signed Intake Vital Signs 12/02/2508:16 12/02/2509:30 12/04/2512:25 Height 5 ft 7 in 5 ft 7 in 5 ft 7 in Weight: 115 lb BMI 18.0 BP 127/70 H Blood Pressure Location Lt brachial Position Sitting Respiration 18 Pulse 105 H Pulse Source Monitor Pulse Oximetry (%) 98 Oxygen Delivery Method room air Intake Visit Reasons: 2ND OPINION Chief Complaint: 2nd opinion, surgery Is patient in pain?: No Allergies No Known Allergies Allergy (Verified 12/04/24 13:32) Medications ???Medication ???Instructions ???Recorded ???Confirmed ???Type aspirin 81 mg tablet,delayed 81 mg PO DAILY 01/27/16 12/04/24 History release terazosin 1 mg capsule 1 mg PO DAILY 04/18/19 12/04/24 History omeprazole 40 mg capsule,delayed 40 mg PO DAILY 05/25/19 12/04/24 History release tamsulosin 0.4 mg capsule 0.4 mg PO DAILY 04/20/21 12/04/24 History budesonide 0.25 mg/2 mL suspension 0.25 mg inhalation BID 10/20/21 12/04/24 History for nebulization multivitamin 1 tab PO DAILY 12/12/22 12/04/24 History finasteride 5 mg tablet 5 mg PO DAILY 11/15/23 12/04/24 History levothyroxine 112 mcg tablet 112 mcg PO QDAY 11/28/23 12/04/24 History roflumilast 500 mcg tablet 500 mcg PO QDAY 09/24/24 12/04/24 History (Daliresp) albuterol 90 mcg/actuation aerosol mcg inhalation 12/02/24 12/04/24 History inhaler atorvastatin 80 mg tablet (Lipitor) 60 mg PO QHS 12/02/24 12/04/24 History metronidazole 500 mg tablet 500 mg PO .COMPLEX #6 tabs 12/04/24 12/04/24 Rx neomycin 500 mg tablet 500 mg PO .COMPLEX pre-op 12/04/24 12/04/24 Rx antibiotics #6 tabs sodium sul 1.479 gram-potas ch See Rx Instructions PO PER PKG DIR 12/04/24 12/04/24 Rx 0.188 gram-magnes sul 0.225 gram #1 pkg tablet (Sutab) Have you fallen in the past year?: [...] daily uses ibuprofen as needed HPI HPI HPI: 84-year-old male presents for a second opinion due to multiple colon polyps and 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 Patient patient and family do not want to go all the way u (more content not included)...[facility]09-17-2025 Consult note [facility] Medical Records Department [address] [place] [address] Pre-Anesthesia Evaluation 12/11/24 0936 MR#: [id number] Acct: [id number] Name: MARGAUX SANDERSON Rep #:[id number] : 1940 84 From: Nitin Chung PCP: Dr. Alexander Setiner MD Status:REG S DC Y Race: C Location: [place] [address] ASA Classification* ASA Classification ASA Classification: 3 Assessment & Plan Anesthesia* Anesthesia Assessment Anesthesia Assessment: Discussed sedation and/or anesthesia options, risks, benefits, and alternatives with patient/parents/legal guardian/POA. Questions invited. The patient/parents/legal guardian/POA seems to understand and agrees to proceedwith anesthesia plan. Reviewed the physical assessment, medical history, allergy history and patient home medications list prior to surgery/procedure/anesthetic and documented any changes. Performed airway and anesthesia risk assessments. Anesthesia Type Anesthesia Type: MAC History Source History Obtained from:: Patient and Chart Anesthesia Focused Assessment* Temperature: 98.2 F Pulse Rate: 79 Blood Pressure: 162/77 Respiratory Rate: 16 Pulse Ox: 99 Oxygen Delivery Method: Room Air Airway Assessment Mouth opens: >3 cm Mallampati Score: II Teeth Condition: Dentures Neck Range of motion (ROM): Limited ROM Labs Anesthesia Preop lab: CBC WBC, (4.4-11.0) 7.7 K/mm3 12/09/24, 10: RBC, (4.6-6.2) 5.01 M/mm3 12/09/24, 10: Hgb, (13.0-16.5) 11.4 g/dL L 12/09/24, 10: Hct, (40-54) 36.8 % L 12/09/24, 10: Plt Count, (150-450) 276 K/mm3 12/09/24, 10:28 CHEMISTRY Potassium, (3.3-5.1) 4.2 mmol/L 11/28/24, 16:30 Sodium, (133-145) 140 mmol/L 11/28/24, 16:30 Magnesium, (1.5-2.2) 2.0 mg/dL 12/09/24, 10: BUN, (4-19) 8 mg/dL 11/28/24, 16:30 Creatinine, (0.70-1.20) 0.70 mg/dL 11/28/24, 16:30 Glucose, (70-99) 100 mg/dL H 11/28/24, 16:30 TSH, (0.300-4.200) 0.074 uIU/mL L 09/16/24, 10:48 COAG PT, (11.7-14.9) 14.0 SECONDS 11/28/24, 16:30 Pre-Assessment Diagnosis/Proposed Procedure Planned Operative Procedure(s): COLONOSCOPY Anesthesia History Anesthesia History - patient resource specialist: Anesthesia History - patient resource specialist Hx Hospitalization No 12/06/24 09:42 Any Problems With Anesthesia No 12/06/24 09:42 Cholinesterase deficiency No 12/06/24 09:42 You/Your Family Experience No 12/06/24 09:42 fever (hyperthermia) with Relationship Recent Exposure to Contagious No 12/11/24 09:18 Disease Does patient have nerve No 12/06/24 09:42 stimulator Patient instructed to have device shut off --Does patient have Pacemaker No 12/11/24 09:18 or ICD? When Was Last Pacemaker Check QUESTION #4 FULL TEXT: You/Your Family Experience fever (hyperthermia) with Anesthesia Last Oral Intake Last Oral intake: Last Oral Intake NPO since 00:00 12/11/24 09:18 Meds taken in AM with sips of No 12/11/24 09:18 water? 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 - patient resource specialist: PONV - patient resource specialist Female No 12/06/24 09:19 HX of Motion Sickness No 12/06/24 09:19 HX of N/V After Surgery No 12/06/24 09:19 Non-Smoker Yes 12/06/24 09:19 Duration of Surgery greater No 12/06/24 09:19 than 60 minutes Number of Risk Factors 1 12/06/24 09:19 PONV Score Low Risk 12/06/24 09:19 Height & Weight Height & Weight: Anesthesia: Height & Weight Height 5 ft 7 in 12/11/24 09:18 Weight: 51 kg 12/11/24 09:18 Body Mass Index (BMI) 17.6 12/11/24 09:18 Respiratory Assessment Respiratory Assessment - patient resource specialist: Respiratory Tract Infection Hx - patient resource specialist Hx Respiratory Tract Infection No 12/06/24 09:42 STOP Sleep Apnea STOP Sleep Apnea - patient resource specialist: STOP Sleep Apnea - patient resource specialist Hx Hypertension Yes: NO MEDS FOR 4 MONTHS/ 12/06/24 09:42 CURRENTLY HYPOTENSIVE Hx Sleep Apnea No 12/06/24 09:42 CPAP BIPAP Do you snore loudly (louder No 12/06/24 09:19 than talking or can be heard Do you often feel tired/ No 12/06/24 09:19 fatigued/ sleepy during daytime? Has anyone observed you stop No 12/06/24 09:19 breathing during sleep? STOP Results Negative 12/06/24 09:19 QUESTION #5 FULL TEXT : Do you snore loudly (louder than talking or can be heard through closeddoors)? Tobacco Use History Tobacco Use History - patient resource specialist: Tobacco Use History - patient resource specialist Tobacco Use Smoking Status Current every day smoker 12/06/24 09:42 Hx Tobacco Use Yes 12/06/24 09:42 Years Smoking Packs Smoked per Day Smoking Cessation Date was No - quit smoking greater 12/06/24 09:19 within the last 15 years than 15 years ago Hx Smoking Cessation Date 03/27/08 12/06/24 09:42 Hx Smoking Cessation No 12/06/24 09:42 Counseling Hematologic Medial History Hematologic Hx - patient resource specialist: Hematologic Medical Hx - transplant surgeon Hx of Blood Transfusion Yes 12/06/24 09:19 Hx of Transfusion in last 3 Yes 12/06/24 09:19 Months Date of Last Transfusion (if 11/29/2024 12/06/24 09:19 within last 3 months) Ever experience any problems Yes 12/06/24 09:19 with transfusion(s)? Specify any problems FATIGUE AND HEADACHE 12/06/24 09:19 Hx of Preganancy in last 3 N/A 12/06/24 09:19 Months Nurse Filling Out Transfusion DSCHRIBER 12/06/24 09:19 & Questions: Date: 12/06/24 12/06/24 09:19 Time: 09:21 12/06/24 09:19 Patient unable to answer at this time (ie. confused, unrespo /Reproduction History /Reproductive History - patient resource specialist: /Reproductive Hx- patient resource specialist Hx Now No 12/06/24 09:19 Gestational Age (in weeks): EDC: Hx Hx Para Hx Section SAB No 12/06/24 09:42 Active Medications Active Medications: Current Medications Generic Name Dose Route Start Last Admin Trade Name Freq PRN Reason Stop Dose Admin Lactated Ringer's 1,000 mls @ 15 mls/hr 12/11/24 09:00 12/11/24 09:22 IV 15 mls/hr .Q48H LAWANDA Administration PFSH Medical History Loss of hearing Cancer Thyroid disease Bladder disease Anemia Chewing tobacco use History of diverticulitis Gastric reflux Shortness of breath on exertion History of pain when walking Hypertension History of echocardiogram Erosive esophagitis BPH (benign prostatic hyperplasia) Acute pancreatitis without necrosis or infection, unspecified Osteoporosis Wears glasses Wears dentures Arthritis High cholesterol Back pain Migraine headache Syncope Former smoker Hx of sinus bradycardia History of stress test Cardiology follow-up encounter Bradycardia Coronary artery calcification Matute esophagus Benign neoplasm of colon COPD (chronic obstructive pulmonary disease) Home Medications ?Medication ?Instructions ?Recorded ?Last Taken ?Type aspirin 81 mg tablet,delayed 81 mg PO DAILY HEART HEAL 01/27/16 12/04/24 History release terazosin 1 mg capsule 1 mg PO DAILY BPH 04/18/19 0 12/10/24 History omeprazole 40 mg capsule,delayed 40 mg PO DAILY GERD 0 05/25/19 12/10/24 History release tamsulosin 0.4 mg capsule 0.4 mg PO QHS BPH 04/20/21 0 12/10/24 History budesonide 0.25 mg/2 mL suspension 0.25 mg inhalation BID COPD 10/20/21 12/10/24 History for nebulization multivitamin 1 tab PO DAILY SUPPLEMENT 12/10/24 History finasteride 5 mg tablet 5 mg PO DAILY BPH 11/15/23 0 12/10/24 History levothyroxine 112 mcg tablet 112 mcg PO QDAY THYROID 0 11/28/23 12/10/24 History roflumilast 500 mcg tablet 500 mcg PO QDAY COPD 12/10/24 History (Daliresp) albuterol 90 mcg/actuation aerosol 90 mcg inhalation P RN PRN COPD 12/02/24 12/11/24 History inhaler atorvastatin 80 mg tablet (Lipitor) 60 mg PO QHS JEFF STEROL 12/02/24 12/10/24 History ipratropium 0.5 mg-albuterol 3 mg 3 ml inhalation Q6H PRN shortness 12/11/24 Unknown History (2.5 mg base)/3 mL nebulization of breath or wheezing soln Allergy/AdvReac Type Severity Reaction Status Date / Time No Known Allergies Allergy Verified 12/11/24 09:12 Family History Father Diabetes Hypertension CVA (cerebral vascular accident) Mother Thyroid disorder Arthritis Surgical History Hx of right cataract extraction Hx of left cataract extraction History of thyroidectomy, total (~10/2020) Hx of lithotripsy History of needle biopsy (09/16/20) History of colonoscopy with polypectomy History of esophagogastroduodenoscopy History of arthroscopy of knee Social History Smoking Status: Current every day smoker tobacco type: smokeless tobacco how long ago did patient quit smoking: quit 12-14 years ago alcohol intake: never substance use type: does not use what type of physical activity do you participate in: none additional social history: pt denies vaping, denies marijuana use, denies edibles, denies alcohol use, uses baby aspirin daily uses ibuprofen as needed Review of Systems (Anesthesia) ROS Narrative System reviewed and no additional complaints, except as documented. 12/11/24 0945 MD> Date _ Nitin Santiago MD Cosigner Signature: Date CC: ~ Signed [facility]09-05-2025 Telephone encounter Note* Telephone Encounter - Leena Bowles LPN - 11/29/2024 4:11 PM EDT Images from the original note were not included. José Luis Pichardo3 hours ago (12:25 PM) CHANTELLE patient will need to contact medical records Called Leslie. Verified name and date of of patient. Notified. Leena Bowles LPN [facility]09-05-2025 Miscellaneous Notes* Telephone Encounter - Leena Bowles LPN - 11/29/2024 4:11 PM EDT Images from the original note were not included. José Luis Pichardo hours ago (12:25 PM) CHANTELLE patient will need to contact medical records Called Leslie. Verified name and date of of patient. Notified. Leena Bowles LPN * Telephone Encounter - Leena Bowles LPN - 11/29/2024 11:58 AM EDT Leslie called. Verified name and date of of patient. Patient has decided to have surgery done by Dr. Zuleyma Storm MD with [facility] General Surgery. They need the surgerythat is recommended by Dr. Machuca, report of colonoscopy and images (Leslie will get a hold of medical records for imaging). No fax number available. Clinic number for : .Leena Bowles LPN * Telephone Encounter - Ely Hernández MA - 11/28/2024 8:42 AM EDT Pre op medical clearance letter faxed to Dr. Steiner. [phone] Ely Hernández MA * Telephone Encounter - Imani Rodriguez MA - 11/27/2024 3:07 PM EDT Received a call from patients daughter stating he has an appointment with Dr. Steiner tomorrow and they have not received any forms that need filled out for surgical clearance. Please send surgical clearance form to Dr. Steiner's office. * Telephone Encounter - Leena Bowles LPN - 11/22/2024 1:00 PM EDT Called Leslie. Verified name and date of of patient. Patient will see Dr. Steiner on 2024 to get medical clearance for him to have section of colon removed by Dr. Machuca after thecolonoscopy is completed. Fax number for General Surgery given to Leslie for Dr. Diana office andaware of request for testing to be uploaded into [employer]. Appointment scheduled for . Leena Bowles LPN * Telephone Encounter - Jennifer Mcadams - 11/21/2024 12:03 PM EDT Daughter Leslie is calling to arrange another office visit with Dr Machuca prior to another procedure, patient is currently scheduled with PCP on 11/28/24 at 3:30, Daughter stating records are to be faxed to the office was not sure if we should arrange this appointment prior to records coming. Please advise Leslie [facility] Telephone encounter Note * Telephone Encounter - Leena Bowles LPN - 11/29/2024 11:58 AM EDT Leslie called. Verified name and date of of patient. Patient has decided to have surgery done by Dr. Zuleyma Storm MD with [facility] General Surgery. They need the surgerythat is recommended by Dr. Machuca, report of colonoscopy and images (Leslie will get a hold of medical records for imaging). No fax number available. Clinic number for : .Leena Bowles LPN [facility]09-04-2025 Telephone encounter Note* Telephone Encounter - Ely Hernández MA - 11/28/2024 8:42 AM EDT Pre op medical clearance letter faxed to Dr. Steiner. [phone] Ely Hernández MA [facility]09-03-2025 Telephone encounter Note* Telephone Encounter - Imani Rodriguez MA - 11/27/2024 3:07 PM EDT Received a call from patients daughter stating he has an appointment with Dr. Steiner tomorrow and they have not received any forms that need filled out for surgical clearance. Please send surgical clearance form to Dr. Steiner's office. [facility]08-29-2025 Telephone encounter Note* Telephone Encounter - Leena Bowles LPN - 11/22/2024 1:00 PM EDT Called Leslie. Verified name and date of of patient. Patient will see Dr. Steiner on 2024 to get medical clearance for him to have section of colon removed by Dr. Machuca after thecolonoscopy is completed. Fax number for General Surgery given to Leslie for Dr. Diana office andaware of request for testing to be uploaded into [employer]. Appointment scheduled for . Leena Bowles LPN [facility]08-28-2025 Telephone encounter Note* Telephone Encounter - Jennifer Mcadams - 11/21/2024 12:03 PM EDT Daughter Leslie is calling to arrange another office visit with Dr Machuca prior to another procedure, patient is currently scheduled with PCP on 11/28/24 at 3:30, Daughter stating records are to be faxed to the office was not sure if we should arrange this appointment prior to records coming. Please advise Leslie [facility]08-28-2025 NoteHNO ID: [id number] Author: SAURAV MACHUCA MD Service: ? Author Type: Physician Type: Progress Notes Filed: 11/21/2024 06:35 Note Text: FOLLOW UP VISIT - ENDOSCOPY NAME: Margaux James [facility] NO.: [id number] DATE OF SERVICE: 11/20/2024 : 1940 REFERRING PHYSICIAN: Alexander Steiner MD Margaux is a patient I am following for recent endoscopy with significant findings. Margaux is a 84 year old male referred for endoscopy. 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 Margaux denies abdominal pain. Margaux denies diarrhea. Margaux notes constipation. -last 3 weeks harder to pass the stool -increased straining Margaux denies a change in bowel habits. Margaux notes melena. -+iFOBT last week -doesn't notice any blood Margaux denies bright red blood per rectum. Margaux notes hemorrhoids. Margaux notes family history of colon issues. Sister with colon cancer Margaux denies heartburn. -takes omeprazole daily with good relief Margaux denies dysphagia. Margaux denies a history of ulcers/ peptic ulcer disease. 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 He follows with [facility]. He completed radiation in 2022. Disease is stable. He has a hx of COPD- uses duoneb daily, but no other inhalers. Is able to walk up steps AND complete activity with no issues Margaux follows with [facility]. Last OV 08/2024. He had a stress test in 2023 EF was 57% AND there was no evidence of ischemia. He CP, SOB, dizziness, palpitations, syncope, edema, recent hospitalizations Margaux has undergone prior endoscopy. Last EGD AND colonoscopy was 01/[address] Machuca at [facility]. Sedation: MAC T he entire duodenum appeared unremarkable. The antral region appeared normal. Given his previous history of Matute's esophagitis and gastritis, biopsies were taken in the antral region. The remainder of the stomach appeared unremarkable. The fundic portion had no true hiatal hernia, but seemed to have a lax lower esophageal sphincter. There was a very small hiatal hernia. The stomach was aspirated of liquid. As the scope was withdrawn, there was an irregular Z-line with a couple areas of flamed erosion. This was consistent with Matute's esophagitis. Biopsies were taken in all 4 quadrants for the short segment. As the scope was withdrawn, the remainder of the esophagus was unremarkable. COLONOSCOPY Digital rectal exam revealed no palpable abnormalities. As the scope was withdrawn, there was an area which appeared to be consistent with scarring from a previous polypectomy site and an area that did not truly look polypoid, but looked slightly erythematous compared to the other site. Narrow band imaging did not truly Demonstrate to be adenomatous, but the area of concern had 2 biopsies performed with biopsy forceps and then APC Argon beam coagulation was performed to obliterate that area. The remainder of the colon, cecum, ascending colon, hepatic flexure, transverse colon, splenic flexure all appeared unremarkable. Descending and sigmoid had few small diverticula. The scope was retroflexed in the rectum and that was normal. MICROSCOPIC DIAGNOSIS A. Gastric antrum, biopsy: Gastritis. B. GE junction, biopsy: Squamous mucosa with focal changes consistent with reflux. Junctional mucosa with chronic and mild acute inflammation. No evidence of dysplasia. C. Cecum, biopsy: Fragments of tubular adenoma. I performed upper and lower endoscopy on November 15, 2024. The patient's prep was suboptimal and he required 8 mg of Versed 100 mcg of fentanyl and 50 mg of Benadryl to obtain sedation. The patient was found to have: Upper endoscopy: Impression: - Normal examined jejunum. - Normal examined duodenum. - Gastritis, characterized by congestion (edema), erythema and friability. Biopsied. - Mild reflux esophagitis with no bleeding. Rule out Matute's esophagus. Biopsied. Lower endoscopy: Impression: - Preparation of the colon was poor. - Many 4 to 27 mm polyps in the cecum. Biopsied. - One 10 mm polyp in the ascending colon, removed with a cold snare. Resected and retrieved. - One 11 mm polyp in the descending colon, removed with a cold snare. Complete resection. Polyp tissue not retrieved. Clip was placed. - Diverticulosis in the left colon. - The examination was otherwise normal on direct and retroflexion views. The area of the cecum actually many coalesced polyps and an the base of the cecum and area just opposite the ileocecal valve there were a matted group of polyps approximately one third circumference of the cecum with a one fourth circumference area just opposite with multiple polyps surrounded. It was felt that these polyps could not be removed safely in the current study. These were biopsied and a clip was placed (more content not included)...[facility]08-28-2025 History of Present illness Narrative* Saurav Machuca MD - 11/21/2024 6:25 AM EDT FOLLOW UP VISIT - ENDOSCOPY NAME: Margaux James [facility] NO.: [id number] DATE OF SERVICE: 11/20/2024 : 1940 REFERRING PHYSICIAN: Alexander Steiner MD Margaux is a patient I am following for recent endoscopy with significant findings. Margaux is a 84 year old male referred for endoscopy. Margaux notes due for surveillance EGD d/t Matute's & recent weight loss. Margaux denies abdominal pain. Margaux denies diarrhea. Margaux notes constipation. -last 3 weeks harder to pass the stool -increased straining Margaux denies a change in bowel habits. Margaux notes melena. -+iFOBT last week -doesn't notice any blood Margaux denies bright red blood per rectum. Margaux notes hemorrhoids. Margaux notes family history of colon issues. Sister with colon cancer Margaux denies heartburn. -takes omeprazole daily with good relief Margaux denies dysphagia. Margaux denies a history of ulcers/ peptic ulcer disease. 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 He follows with [facility]. He completed radiation in 2022. Disease is stable. He has a hx of COPD- uses duoneb daily, but no other inhalers. Is able to walk up steps & complete activity with no issues Margaux follows with [facility]. Last OV 08/2024. He had a stress test in 2023 EF was 57% & there was no evidence of ischemia. He CP, SOB, dizziness, palpitations, syncope, edema, recent hospitalizations Margaux has undergone prior endoscopy. Last EGD & colonoscopy was 01/[address] Machuca at [facility]. Sedation: MAC T he entire duodenum appeared unremarkable. The antral region appeared normal. Given his previous history of Matute's esophagitis and gastritis, biopsies were taken in the antral region. The remainder of the stomach appeared unremarkable. The fundic portion had no true hiatal hernia, but seemed to have a lax lower esophageal sphincter. There was a very small hiatal hernia. The stomach was aspirated of liquid. As the scope was withdrawn, there was an irregular Z-line with a couple areas of flamed erosion. This was consistent with Matute's esophagitis. Biopsies were taken in all 4 quadrants for the short segment. As the scope was withdrawn, the remainder of the esophagus was unremarkable. COLONOSCOPY Digital rectal exam revealed no palpable abnormalities. As the scope was withdrawn, there was an area which appeared to be consistent with scarring from a previous polypectomy site and an area that did not truly look polypoid, but looked slightly erythematous compared to the other site. Narrow band imaging did not truly Demonstrate to be adenomatous, but the area of concern had 2 biopsies performed with biopsy forceps and then APC Argon beam coagulation was performed to obliterate that area. The remainder of the colon, cecum, ascending colon, hepatic flexure, transverse colon, splenic flexure all appeared unremarkable. Descending and sigmoid had few small diverticula. The scope was retroflexed in the rectum and that was normal. MICROSCOPIC DIAGNOSIS A. Gastric antrum, biopsy: Gastritis. B. GE junction, biopsy: Squamous mucosa with focal changes consistent with reflux. Junctional mucosa with chronic and mild acute inflammation. No evidence of dysplasia. C. Cecum, biopsy: Fragments of tubular adenoma. I performed upper and lower endoscopy on November 15, 2024. The patient's prep was suboptimal and he required 8 mg of Versed 100 mcg of fentanyl and 50 mg of Benadryl to obtain sedation. The patient was found to have: Upper endoscopy: Impression: - Normal examined jejunum. - Normal examined duodenum. - Gastritis, characterized by congestion (edema), erythema and friability. Biopsied. - Mild reflux esophagitis with no bleeding. Rule out Matute's esophagus. Biopsied. Lower endoscopy: Impression: - Preparation of the colon was poor. - Many 4 to 27 mm polyps in the cecum. Biopsied. - One 10 mm polyp in the ascending colon, removed with a cold snare. Resected and retrieved. - One 11 mm polyp in the descending colon, removed with a cold snare. Complete resection. Polyp tissue not retrieved. Clip was placed. - Diverticulosis in the left colon. - The examination was otherwise normal on direct and retroflexion views. The area of the cecum actually many coalesced polyps and an the base of the cecum and area just opposite the ileocecal valve there were a matted group of polyps approximately one third circumference of the cecum with a one fourth circumference area just opposite with multiple polyps surrounded. It was felt that these polyps could not be removed safely in the current study. These were biopsied umair clip was placed just distal to the largest concentration of polyps. Additional smaller polyps were seen throughout the colon the right out 2 polyps were resected and retrieved but due to the poor prep and the patient's abdominal breathing it was felt that complete polypectomy at this time with the suboptimal prep would be more challenging and would require additional endoscopy in the future. Pathology demonstrated: FINAL DIAGNOSIS A. Stomach, biopsy: - Gastric oxyntic-type mucosa with no diagnostic abnormality. B. Distal esophagus, biopsy: - Gastric cardiofundic-type mucosa with chronic active inflammation and focal intestinal metaplasia, negative for dysplasia (see comment). C. Cecal polyp, biopsy: - Fragments of tubular adenoma. D. Cecal polyp #2, biopsy: - Fragments of tubulovillous adenoma. E. Hepatic flexure polyp, biopsy: - Fragments of tubular adenoma. A KUB was obtained postprocedure which demonstrated the clip to be at the ascending colon cecal juncture. The patient notes no new complaints since the procedure. Overall he still notes a poor appetite VITALS: There were no vitals taken for this visit. On examination, the abdomen is benign. Assessment IMPRESSION: Many polyps including a matted area of adenomatous polyps in the cecum requiring additional treatment, Matute's esophagitis PLAN: If the patient notes any problems or changes in bowel function, the patient should contact me immediately. Otherwise I recommend follow up endoscopy in 3 years for his Matute's esophagitis. The patient will require repeat bowel prep and my plan now will be for colonoscopy for removal of polyps in the distal left colon completely and then plan for ileocecal or right hemicolectomy resection given the size spreading nature of the cecal polyps and the fact that is returned as tubulovillous adenoma. Patient follows with Dr. Steiner as his primary care physician and apparently recently had cardiac studies. I have asked the patient to return to Dr. Steiner for evaluation and have Dr. Steienr forward recentmedical records and studies to arrange for preoperative clearance given his cardiac and pulmonary history. 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 - Upper endoscopy follow-up in 3 years. 2. 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 Multiple polyps of sigmoid colon (K63.5) 4. Encounter for screening for malignant neoplasm of colon (Z12.11) Colonoscopy revealed multiple polyps, including a large tubulovillous adenoma involving approximately one-third of the colonic circumference in the right colon. Biopsies confirmed tubulovillous adenoma; other polyps were tubular adenomas. Bowel preparation was suboptimal, limiting complete polypectomy. - Repeat colonoscopy at [facility] with improved bowel preparation over 2 days (half the prep on Monday, half on Monday) and anesthesiologist support for optimal relaxation. - Remove remaining polyps endoscopically on Monday prior to surgery. - Laparoscopic resection of approximately 1.5 feet of colon on Monday to remove the tubulovillous adenoma; plan to perform primary anastomosis and avoid colostomy. - Administer IV fluids during colonoscopy and allow clear liquids post-procedure to minimize dehydration. - Provide antibiotic prophylaxis the night before surgery to reduce risk of anastomotic leak. - Educated patient on risks of surgery (including perforation, dehydration, and anastomotic leak) and rationale for staged approach; patient expressed understanding. - Refer to Dr. Steiner for preoperative risk assessment and to review recent cardiac evaluations; willsend note to Dr. Steiner outlining surgical plan and request copies of all cardiac tests from the pastyear for anesthesiology review. - Instructed patient to avoid strenuous activity for the first 1-2 weeks postoperatively; advised that full recovery is expected and that normal activities, including horseback riding, can be resumedafter healing. - Informed patient of expected hospital stay of 3-4 days postoperatively. 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 Saurav Machuca MD documented in this encounterUniversity [facility]als [facility]08-27-2025 Instructions* Patient Instructions* Saurav Machuca MD - 11/20/2024 12:31 PM EDT We discussed your recent colonoscopy findings and the next steps in your care: - Colon Polyps and Matute's Esophagus: - Your colonoscopy revealed multiple polyps, including a large polyp in the right colon that spans about one-third of the circumference of the colon. 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 - Other polyps were identified as tubular adenomas, which are precancerous but less advanced than the tubulovillous adenoma. These will also need to be removed. - Your biopsy also showed Matute's esophagus. We will plan for a follow-up upper endoscopy in 3 years to monitor this condition. - Plan for Surgery and Additional Colonoscopy: - I recommend a two-step approach: 1. A repeat colonoscopy at [facility] to remove as many remaining polyps as possible and to ensure a better bowel preparation. This will also allow me to negro the area for surgery. 2. Surgery the following day to remove the section of the colon containing the tubulovillous adenoma. I will perform this laparoscopically and plan to reconnect your colon during the same procedure. No colostomy is expected. - You will need to stay in the hospital for 3-4 days after surgery for recovery. - Bowel Preparation: - For the repeat colonoscopy, you will complete a split-dose bowel prep: - Drink half of the bowel prep solution two days before the procedure and the other half the day before. - This method should improve the quality of the preparation and allow for a more thorough examination. - Pre-Surgical Clearance: - Please follow up with your primary care doctor, Dr. Steiner, to ensure you are medically cleared forsurgery. I will send him a note about the plan and will need copies of your recent heart tests and other medical records for my anesthesiologist. - Post-Surgery Recovery: - After surgery, you should be able to resume normal activities, including horseback riding, once you have healed. The intestinal incisions heal quickly, and the laparoscopic approach minimizes recovery time. - Next Steps: - I will schedule the repeat colonoscopy and surgery at [facility]. You will receive instructions on the exact dates and times. - If you notice a metal clip in your stool, it is from the previous procedure and is normal. Please let us know if you have any questions or concerns as we move forward with this plan. documented in this encounterUniversity [facility]08-22-2025 Note* Discharge Instr - Nursing - Nia Celestin RN - 11/15/2024 9:44 AM EDT The patient received a copy of Colonoscopy and EGD discharge instructions that contain information for how to contact the physician who performed the procedure and when to seek medical care. [facility]08-22-2025 Miscellaneous Notes* Discharge Instr - Nursing - Nia Celestin RN - 11/15/2024 9:44 AM EDT The patient received a copy of Colonoscopy and EGD discharge instructions that contain information for how to contact the physician who performed the procedure and when to seek medical care. documented in this encounterUniversity Hospitals [facility]08-22-2025 Attending History and physical note* Saurav Machuca MD - 11/15/2024 7:45 AM EDT UPDATED PROCEDURAL SEDATION HISTORY AND PHYSICAL EXAMINATION SERVICE DATE: 11/15/2024 SERVICE TIME: 8:08 AM PHYSICAL EXAM MUST BE COMPLETED ON ADMISSION PROCEDURE: Procedure Indications: The History and Physical (completed in the past 30 days) has been reviewed and the patient has beenexamined. The contents accurately reflect the patient's condition with the following additions or revisions since the H&P was completed. ASA Class: ASA Class: Patient with severe systemic disease Examination indicates no changes. AIRWAY: Mouth opening greater than 3 fingerbreadths: Yes Neck Full Range of Motion: Yes LUNGS: Lungs clear to auscultation CARDIAC: Regular rhythm,Regular rate Provisional Diagnosis/Treatment Plan: heme positive stools, Matute's esophagitis - EGd and Colonoscopy Sedation Goal: Moderate This H&P can be found in the attached. SIGNATURE: Saurav Machuca MD PATIENT NAME: Margaux Sanderson DATE: November 15, 2024 TIME: 8:08 AM Source Note - Saurav Machuca MD - 11/15/2024 7:45 AM EDT HISTORY AND PHYSICAL Margaux Sanderson : 1940 REFERRING PHYSICIAN: No referring provider defined for this encounter. CHIEF COMPLAINT: Patient presents with: Consult: EGD & Colonoscopy HPI: Margaux is a 84 year old male referred for endoscopy. Margaux notes due for surveillance EGD d/tBarrett's & recent weight loss. Margaux denies abdominal pain. Margaux denies diarrhea. Margaux notes constipation. -last 3 weeks harder to pass the stool -increased straining Margaux denies a change in bowel habits. Margaux notes melena. -+iFOBT last week -doesn't notice any blood Margaux denies bright red blood per rectum. Margaux notes hemorrhoids. Margaux notes family history of colon issues. Sister with colon cancer Margaux denies heartburn. -takes omeprazole daily with good relief Margaux denies dysphagia. Margaux denies a history of ulcers/ peptic ulcer disease. 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 He follows with [facility]. He completed radiation in 2022. Disease is stable. He has a hx of COPD- uses duoneb daily, but no other inhalers. Is able to walk up steps & complete activity with no issues Margaux follows with [facility]. Last OV 08/2024. He had a stress test in 2023 EF was 57% & there was no evidence of ischemia. He CP, SOB, dizziness, palpitations, syncope, edema, recent hospitalizations Margaux has undergone prior endoscopy. Last EGD & colonoscopy was 01/[address] Machuca at [facility]. Sedation: MAC T he entire duodenum appeared unremarkable. The antral region appeared normal. Given his previous history of Matute's esophagitis and gastritis, biopsies were taken in the antral region. The remainder of the stomach appeared unremarkable. The fundic portion had no true hiatal hernia, but seemed to have a lax lower esophageal sphincter. There was a very small hiatal hernia. The stomach was aspirated of liquid. As the scope was withdrawn, there was an irregular Z-line with a couple areas of flamed erosion. This was consistent with Matute's esophagitis. Biopsies were taken in all 4 quadrants for the short segment. As the scope was withdrawn, the remainder of the esophagus was unremarkable. COLONOSCOPY Digital rectal exam revealed no palpable abnormalities. As the scope was withdrawn, there was an area which appeared to be consistent with scarring from a previous polypectomy site and an area that did not truly look polypoid, but looked slightly erythematous compared to the other site. Narrow band imaging did not truly Demonstrate to be adenomatous, but the area of concern had 2 biopsies performed with biopsy forceps and then APC Argon beam coagulation was performed to obliterate that area. The remainder of the colon, cecum, ascending colon, hepatic flexure, transverse colon, splenic flexure all appeared unremarkable. Descending and sigmoid had few small diverticula. The scope was retroflexed in the rectum and that was normal. MICROSCOPIC DIAGNOSIS A. Gastric antrum, biopsy: Gastritis. B. GE junction, biopsy: Squamous mucosa with focal changes consistent with reflux. Junctional mucosa with chronic and mild acute inflammation. No evidence of dysplasia. C. Cecum, biopsy: Fragments of tubular adenoma. CURRENT MEDICATIONS Current Outpatient Medications Medication Sig atorvastatin (LIPITOR) 80 mg tablet Take 80 mg by mouth once daily. levothyroxine (SYNTHROID) 112 mcg tablet Take 112 mcg by mouth once daily. finasteride (PROSCAR) 5 mg tablet Take 5 mg by mouth once daily. tamsulosin (FLOMAX) 0.4 mg Take 0.4 mg by mouth once daily. roflumilast (DALIRESP) 500 mcg tab Take 500 mcg by mouth once daily. albuterol (PROVENTIL) 2.5 mg/0.5 mL nebulizar solution Use 2.5 mg via nebulizer every 6 hours as needed. ipratropium-albuterol (DUONEB) 0.5 mg-3 mg(2.5 mg base)/3 mL nebu Inhale 3 mL as instructed. terazosin (HYTRIN) 1 mg capsule Take 1 mg by mouth daily at bedtime. aspirin, enteric coated (ASPIRIN, ENTERIC COATED) 81 mg EC tablet Take 81 mg by mouth once daily. Omeprazole (PRILOSEC) 40 mg capsule Take 1 capsule by mouth 1-2 times daily. peg 3350-Electrolytes (GOLYTELY) 236-22.74-6.74 -5.86 gram suspension Take 4,000 mL by mouth one time only for 1 dose. Refer to printed prep instructions from your provider. No current facility-administered medications for this visit. ALLERGIES: Patient has no allergy information on record. PAST MEDICAL HISTORY PAST MEDICAL HISTORY Diagnosis Date Matute's esophagus Benign neoplasm of colon Blood in stool Disease of lung nodules Diverticulosis of colon (without mention of hemorrhage) GERD (gastroesophageal reflux disease) HTN (hypertension) Hyperlipemia Pure hypercholesterolemia PAST SURGICAL HISTORY PAST SURGICAL HISTORY Procedure Laterality Date COLSC FLX W/REMOVAL LESION BY HOT BX FORCEPS 08/14/12 APC argon fulgration - 1 year follow up COLSC FLX W/REMOVAL LESION BY HOT BX FORCEPS 02/01/16 adenomatous polyp - ablated - 2-3 year follow up COLSC FLX W/RMVL OF TUMOR POLYP LESION SNARE TQ 07/07/2008 Polyp at 30cm, few diverticulosis COLSC FLX W/RMVL OF TUMOR POLYP LESION SNARE TQ 08/13/13 mid transverse colon sessile polyp - unable to removed due to small size and curvature of colon, follow up 1 year - [facility] [place] at that time EGD TRANSORAL BIOPSY SINGLE/MULTIPLE 07/07/2008 gastritis, esophagitis EGD TRANSORAL BIOPSY SINGLE/MULTIPLE 08/14/12 improved esophagitis EGD TRANSORAL BIOPSY SINGLE/MULTIPLE 08/13/13 improved esophagitis EGD TRANSORAL BIOPSY SINGLE/MULTIPLE 02/01/16 reflux, not barretts PAST SURGICAL HISTORY OF cyst removed PAST SURGICAL HISTORY OF knee operation left FAMILY HISTORY FAMILY HISTORY Problem Relation Age of Onset Arthritis Mother Thyroid Cancer Mother Ischemic Heart Disease Father Hypertension Father Diabetes Father Heart Failure Father Stroke Father Colon Cancer Sister SOCIAL HISTORY Social History Tobacco Use Smoking status: Former Current packs/day: 0.00 Average packs/day: 1 pack/day for 50.0 years (50.0 ttl pk-yrs) Types: Cigarettes Start date: 05/09/1962 Quit date: 05/09/2012 Years since quittin.4 Smokeless tobacco: Current Types: Snuff, Chew Vaping Use Vaping status: Never Used Substance Use Topics Alcohol use: No Drug use: No REVIEW OF SYMPTOMS: The review of systems data was entered by the nurse and reviewed by me PHYSICAL EXAMINATION: General: The patient is 84 year old, male well nourished, well hydrated in no acute distress. The patient is oriented to time, place, and person. VITALS: Blood pressure 124/68, temperature 36.4 C (97.5 F), height 170.2 cm (5' 7), weight 53.9 kg(118 lb 12.8 oz), SpO2 98%. Body mass index is 18.61 kg/m . HEENT: Normal cephalic, ataumatic, pupils are equally round, sclera are anicteric, mucous membranesare moist, oropharynx is clear. Neck has no masses or asymmetry . Respiratory: Clear to auscultation. Cardiac: Regular rate and rhythm. Abdominal exam: Soft, nontender, with no palpable masses. No hepatosplenomegaly. No palpable hernias. Extremities: no clubbing or cyanosis LABORATORY VALUES: As Noted RADIOLOGIC STUDIES: As Noted Assessment IMPRESSION: fecal occult blood, unintentional weight loss, hx of matute's, family history of coloncancer PLAN: I have reviewed my findings with the surgeon. Will plan for upper and lower endoscopy. We discussed the risks and benefits of the planned endoscopy in terms understandable to the patient. I have informed the patient that complications can occur including failure to complete the endoscopy and p erforation. Margaux had the opportunity to ask questions concerning the planned endoscopy. Margaux freely consents to surgery. I plan to use Golytely bowel preparation I have explained to the patient the difference between IV conscious sedation and MAC anesthesia - and I have offered either, according to the patient's wishes. I have explained that with IV conscioussedation there is no anesthesia provider available and therefore there is a limitation of the amount of IV medications that can be given and that the patient may wake up in the middle of the procedure and/or experience pain/discomfort during the procedure. Further discussion was done and the patient was given the opportunity to ask questions and all questions were answered. Margaux chooses IV conscious sedation. Margaux was counseled that if there are changes in his/her medical condition, to let the office knowif surgery should proceed. If there are changes in patient's medical condition from time of this encounter to the day of the procedure that preclude anesthesia, patient may have procedure cancelled for patient's safety. 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 The note has been reviewed and edited and updated as necessary. Valerie Gaitan, PIPE ROLLER.CARTON FOLDER [facility]08-22-2025 History and physical note* Saurav Machuca MD - 11/15/2024 7:45 AM EDT HISTORY AND PHYSICAL Margaux Sanderson : 1940 REFERRING PHYSICIAN: No referring provider defined for this encounter. CHIEF COMPLAINT: Patient presents with: Consult: EGD & Colonoscopy HPI: Margaux is a 84 year old male referred for endoscopy. Margaux notes due for surveillance EGD d/tBarrett's & recent weight loss. Margaux denies abdominal pain. Margaux denies diarrhea. Margaux notes constipation. -last 3 weeks harder to pass the stool -increased straining Margaux denies a change in bowel habits. Margaux notes melena. -+iFOBT last week -doesn't notice any blood Margaux denies bright red blood per rectum. Margaux notes hemorrhoids. Margaux notes family history of colon issues. Sister with colon cancer Margaux denies heartburn. -takes omeprazole daily with good relief Margaux denies dysphagia. Margaux denies a history of ulcers/ peptic ulcer disease. 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 He follows with [facility]. He completed radiation in 2022. Disease is stable. He has a hx of COPD- uses duoneb daily, but no other inhalers. Is able to walk up steps & complete activity with no issues Margaux follows with [facility]. Last OV 08/2024. He had a stress test in 2023 EF was 57% & there was no evidence of ischemia. He CP, SOB, dizziness, palpitations, syncope, edema, recent hospitalizations Margaux has undergone prior endoscopy. Last EGD & colonoscopy was 01/[address] Machuca at [facility]. Sedation: MAC T he entire duodenum appeared unremarkable. The antral region appeared normal. Given his previous history of Matute's esophagitis and gastritis, biopsies were taken in the antral region. The remainder of the stomach appeared unremarkable. The fundic portion had no true hiatal hernia, but seemed to have a lax lower esophageal sphincter. There was a very small hiatal hernia. The stomach was aspirated of liquid. As the scope was withdrawn, there was an irregular Z-line with a couple areas of flamed erosion. This was consistent with Matute's esophagitis. Biopsies were taken in all 4 quadrants for the short segment. As the scope was withdrawn, the remainder of the esophagus was unremarkable. COLONOSCOPY Digital rectal exam revealed no palpable abnormalities. As the scope was withdrawn, there was an area which appeared to be consistent with scarring from a previous polypectomy site and an area that did not truly look polypoid, but looked slightly erythematous compared to the other site. Narrow band imaging did not truly Demonstrate to be adenomatous, but the area of concern had 2 biopsies performed with biopsy forceps and then APC Argon beam coagulation was performed to obliterate that area. The remainder of the colon, cecum, ascending colon, hepatic flexure, transverse colon, splenic flexure all appeared unremarkable. Descending and sigmoid had few small diverticula. The scope was retroflexed in the rectum and that was normal. MICROSCOPIC DIAGNOSIS A. Gastric antrum, biopsy: Gastritis. B. GE junction, biopsy: Squamous mucosa with focal changes consistent with reflux. Junctional mucosa with chronic and mild acute inflammation. No evidence of dysplasia. C. Cecum, biopsy: Fragments of tubular adenoma. CURRENT MEDICATIONS Current Outpatient Medications Medication Sig atorvastatin (LIPITOR) 80 mg tablet Take 80 mg by mouth once daily. levothyroxine (SYNTHROID) 112 mcg tablet Take 112 mcg by mouth once daily. finasteride (PROSCAR) 5 mg tablet Take 5 mg by mouth once daily. tamsulosin (FLOMAX) 0.4 mg Take 0.4 mg by mouth once daily. roflumilast (DALIRESP) 500 mcg tab Take 500 mcg by mouth once daily. albuterol (PROVENTIL) 2.5 mg/0.5 mL nebulizar solution Use 2.5 mg via nebulizer every 6 hours as needed. ipratropium-albuterol (DUONEB) 0.5 mg-3 mg(2.5 mg base)/3 mL nebu Inhale 3 mL as instructed. terazosin (HYTRIN) 1 mg capsule Take 1 mg by mouth daily at bedtime. aspirin, enteric coated (ASPIRIN, ENTERIC COATED) 81 mg EC tablet Take 81 mg by mouth once daily. Omeprazole (PRILOSEC) 40 mg capsule Take 1 capsule by mouth 1-2 times daily. peg 3350-Electrolytes (GOLYTELY) 236-22.74-6.74 -5.86 gram suspension Take 4,000 mL by mouth one time only for 1 dose. Refer to printed prep instructions from your provider. No current facility-administered medications for this visit. ALLERGIES: Patient has no allergy information on record. PAST MEDICAL HISTORY PAST MEDICAL HISTORY Diagnosis Date Matute's esophagus Benign neoplasm of colon Blood in stool Disease of lung nodules Diverticulosis of colon (without mention of hemorrhage) GERD (gastroesophageal reflux disease) HTN (hypertension) Hyperlipemia Pure hypercholesterolemia PAST SURGICAL HISTORY PAST SURGICAL HISTORY Procedure Laterality Date COLSC FLX W/REMOVAL LESION BY HOT BX FORCEPS 08/14/12 APC argon fulgration - 1 year follow up COLSC FLX W/REMOVAL LESION BY HOT BX FORCEPS 02/01/16 adenomatous polyp - ablated - 2-3 year follow up COLSC FLX W/RMVL OF TUMOR POLYP LESION SNARE TQ 07/07/2008 Polyp at 30cm, few diverticulosis COLSC FLX W/RMVL OF TUMOR POLYP LESION SNARE TQ 08/13/13 mid transverse colon sessile polyp - unable to removed due to small size and curvature of colon, follow up 1 year - [facility] at that time EGD TRANSORAL BIOPSY SINGLE/MULTIPLE 07/07/2008 gastritis, esophagitis EGD TRANSORAL BIOPSY SINGLE/MULTIPLE 08/14/12 improved esophagitis EGD TRANSORAL BIOPSY SINGLE/MULTIPLE 08/13/13 improved esophagitis EGD TRANSORAL BIOPSY SINGLE/MULTIPLE 02/01/16 reflux, not barretts PAST SURGICAL HISTORY OF cyst removed PAST SURGICAL HISTORY OF knee operation left FAMILY HISTORY FAMILY HISTORY Problem Relation Age of Onset Arthritis Mother Thyroid Cancer Mother Ischemic Heart Disease Father Hypertension Father Diabetes Father Heart Failure Father Stroke Father Colon Cancer Sister SOCIAL HISTORY Social History Tobacco Use Smoking status: Former Current packs/day: 0.00 Average packs/day: 1 pack/day for 50.0 years (50.0 ttl pk-yrs) Types: Cigarettes Start date: 05/09/1962 Quit date: 05/09/2012 Years since quittin.4 Smokeless tobacco: Current Types: Snuff, Chew Vaping Use Vaping status: Never Used Substance Use Topics Alcohol use: No Drug use: No REVIEW OF SYMPTOMS: The review of systems data was entered by the nurse and reviewed by me PHYSICAL EXAMINATION: General: The patient is 84 year old, male well nourished, well hydrated in no acute distress. The patient is oriented to time, place, and person. VITALS: Blood pressure 124/68, temperature 36.4 C (97.5 F), height 170.2 cm (5' 7), weight 53.9 kg(118 lb 12.8 oz), SpO2 98%. Body mass index is 18.61 kg/m . HEENT: Normal cephalic, ataumatic, pupils are equally round, sclera are anicteric, mucous membranesare moist, oropharynx is clear. Neck has no masses or asymmetry . Respiratory: Clear to auscultation. Cardiac: Regular rate and rhythm. Abdominal exam: Soft, nontender, with no palpable masses. No hepatosplenomegaly. No palpable hernias. Extremities: no clubbing or cyanosis LABORATORY VALUES: As Noted RADIOLOGIC STUDIES: As Noted Assessment IMPRESSION: fecal occult blood, unintentional weight loss, hx of matute's, family history of coloncancer PLAN: I have reviewed my findings with the surgeon. Will plan for upper and lower endoscopy. We discussed the risks and benefits of the planned endoscopy in terms understandable to the patient. I have informed the patient that complications can occur including failure to complete the endoscopy and p erforation. Margaux had the opportunity to ask questions concerning the planned endoscopy. Margaux freely consents to surgery. I plan to use Golytely bowel preparation I have explained to the patient the difference between IV conscious sedation and MAC anesthesia - and I have offered either, according to the patient's wishes. I have explained that with IV conscioussedation there is no anesthesia provider available and therefore there is a limitation of the amount of IV medications that can be given and that the patient may wake up in the middle of the procedure and/or experience pain/discomfort during the procedure. Further discussion was done and the patient was given the opportunity to ask questions and all questions were answered. Margaux chooses IV conscious sedation. Margaux was counseled that if there are changes in his/her medical condition, to let the office knowif surgery should proceed. If there are changes in patient's medical condition from time of this encounter to the day of the procedure that preclude anesthesia, patient may have procedure cancelled for patient's safety. 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 The note has been reviewed and edited and updated as necessary. Valerie Gaitan APRN.CARTON FOLDER [facility]08-22-2025 History and physical note* Saurav Machuca MD - 11/15/2024 7:45 AM EDT UPDATED PROCEDURAL SEDATION HISTORY AND PHYSICAL EXAMINATION SERVICE DATE: 11/15/2024 SERVICE TIME: 8:08 AM PHYSICAL EXAM MUST BE COMPLETED ON ADMISSION PROCEDURE: Procedure Indications: The History and Physical (completed in the past 30 days) has been reviewed and the patient has beenexamined. The contents accurately reflect the patient's condition with the following additions or revisions since the H&P was completed. ASA Class: ASA Class: Patient with severe systemic disease Examination indicates no changes. AIRWAY: Mouth opening greater than 3 fingerbreadths: Yes Neck Full Range of Motion: Yes LUNGS: Lungs clear to auscultation CARDIAC: Regular rhythm,Regular rate Provisional Diagnosis/Treatment Plan: heme positive stools, Matute's esophagitis - EGd and Colonoscopy Sedation Goal: Moderate This H&P can be found in the attached. SIGNATURE: Saurav Machuca MD PATIENT NAME: Margaux Sanderson DATE: November 15, 2024 TIME: 8:08 AM Source Note - Saurav Machuca MD - 11/15/2024 7:45 AM EDT HISTORY AND PHYSICAL Margaux Sanderson : 1940 REFERRING PHYSICIAN: No referring provider defined for this encounter. CHIEF COMPLAINT: Patient presents with: Consult: EGD & Colonoscopy HPI: Margaux is a 84 year old male referred for endoscopy. Margaux notes due for surveillance EGD d/tBarrett's & recent weight loss. Margaux denies abdominal pain. Margaux denies diarrhea. Margaux notes constipation. -last 3 weeks harder to pass the stool -increased straining Margaux denies a change in bowel habits. Margaux notes melena. -+iFOBT last week -doesn't notice any blood Margaux denies bright red blood per rectum. Margaux notes hemorrhoids. Margaux notes family history of colon issues. Sister with colon cancer Margaux denies heartburn. -takes omeprazole daily with good relief Margaux denies dysphagia. Margaux denies a history of ulcers/ peptic ulcer disease. 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 He follows with [facility]. He completed radiation in 2022. Disease is stable. He has a hx of COPD- uses duoneb daily, but no other inhalers. Is able to walk up steps & complete activity with no issues Margaux follows with [facility]. Last OV 08/2024. He had a stress test in 2023 EF was 57% & there was no evidence of ischemia. He CP, SOB, dizziness, palpitations, syncope, edema, recent hospitalizations Margaux has undergone prior endoscopy. Last EGD & colonoscopy was 01/[address] Machuca at [facility]. Sedation: MAC T he entire duodenum appeared unremarkable. The antral region appeared normal. Given his previous history of Matute's esophagitis and gastritis, biopsies were taken in the antral region. The remainder of the stomach appeared unremarkable. The fundic portion had no true hiatal hernia, but seemed to have a lax lower esophageal sphincter. There was a very small hiatal hernia. The stomach was aspirated of liquid. As the scope was withdrawn, there was an irregular Z-line with a couple areas of flamed erosion. This was consistent with Matute's esophagitis. Biopsies were taken in all 4 quadrants for the short segment. As the scope was withdrawn, the remainder of the esophagus was unremarkable. COLONOSCOPY Digital rectal exam revealed no palpable abnormalities. As the scope was withdrawn, there was an area which appeared to be consistent with scarring from a previous polypectomy site and an area that did not truly look polypoid, but looked slightly erythematous compared to the other site. Narrow band imaging did not truly Demonstrate to be adenomatous, but the area of concern had 2 biopsies performed with biopsy forceps and then APC Argon beam coagulation was performed to obliterate that area. The remainder of the colon, cecum, ascending colon, hepatic flexure, transverse colon, splenic flexure all appeared unremarkable. Descending and sigmoid had few small diverticula. The scope was retroflexed in the rectum and that was normal. MICROSCOPIC DIAGNOSIS A. Gastric antrum, biopsy: Gastritis. B. GE junction, biopsy: Squamous mucosa with focal changes consistent with reflux. Junctional mucosa with chronic and mild acute inflammation. No evidence of dysplasia. C. Cecum, biopsy: Fragments of tubular adenoma. CURRENT MEDICATIONS Current Outpatient Medications Medication Sig atorvastatin (LIPITOR) 80 mg tablet Take 80 mg by mouth once daily. levothyroxine (SYNTHROID) 112 mcg tablet Take 112 mcg by mouth once daily. finasteride (PROSCAR) 5 mg tablet Take 5 mg by mouth once daily. tamsulosin (FLOMAX) 0.4 mg Take 0.4 mg by mouth once daily. roflumilast (DALIRESP) 500 mcg tab Take 500 mcg by mouth once daily. albuterol (PROVENTIL) 2.5 mg/0.5 mL nebulizar solution Use 2.5 mg via nebulizer every 6 hours as needed. ipratropium-albuterol (DUONEB) 0.5 mg-3 mg(2.5 mg base)/3 mL nebu Inhale 3 mL as instructed. terazosin (HYTRIN) 1 mg capsule Take 1 mg by mouth daily at bedtime. aspirin, enteric coated (ASPIRIN, ENTERIC COATED) 81 mg EC tablet Take 81 mg by mouth once daily. Omeprazole (PRILOSEC) 40 mg capsule Take 1 capsule by mouth 1-2 times daily. peg 3350-Electrolytes (GOLYTELY) 236-22.74-6.74 -5.86 gram suspension Take 4,000 mL by mouth one time only for 1 dose. Refer to printed prep instructions from your provider. No current facility-administered medications for this visit. ALLERGIES: Patient has no allergy information on record. PAST MEDICAL HISTORY PAST MEDICAL HISTORY Diagnosis Date Matute's esophagus Benign neoplasm of colon Blood in stool Disease of lung nodules Diverticulosis of colon (without mention of hemorrhage) GERD (gastroesophageal reflux disease) HTN (hypertension) Hyperlipemia Pure hypercholesterolemia PAST SURGICAL HISTORY PAST SURGICAL HISTORY Procedure Laterality Date COLSC FLX W/REMOVAL LESION BY HOT BX FORCEPS 08/14/12 APC argon fulgration - 1 year follow up COLSC FLX W/REMOVAL LESION BY HOT BX FORCEPS 02/01/16 adenomatous polyp - ablated - 2-3 year follow up COLSC FLX W/RMVL OF TUMOR POLYP LESION SNARE TQ 07/07/2008 Polyp at 30cm, few diverticulosis COLSC FLX W/RMVL OF TUMOR POLYP LESION SNARE TQ 08/13/13 mid transverse colon sessile polyp - unable to removed due to small size and curvature of colon, follow up 1 year - MAC at that time EGD TRANSORAL BIOPSY SINGLE/MULTIPLE 07/07/2008 gastritis, esophagitis EGD TRANSORAL BIOPSY SINGLE/MULTIPLE 08/14/12 improved esophagitis EGD TRANSORAL BIOPSY SINGLE/MULTIPLE 08/13/13 improved esophagitis EGD TRANSORAL BIOPSY SINGLE/MULTIPLE 02/01/16 reflux, not barretts PAST SURGICAL HISTORY OF cyst removed PAST SURGICAL HISTORY OF knee operation left FAMILY HISTORY FAMILY HISTORY Problem Relation Age of Onset Arthritis Mother Thyroid Cancer Mother Ischemic Heart Disease Father Hypertension Father Diabetes Father Heart Failure Father Stroke Father Colon Cancer Sister SOCIAL HISTORY Social History Tobacco Use Smoking status: Former Current packs/day: 0.00 Average packs/day: 1 pack/day for 50.0 years (50.0 ttl pk-yrs) Types: Cigarettes Start date: 05/09/1962 Quit date: 05/09/2012 Years since quittin.4 Smokeless tobacco: Current Types: Snuff, Chew Vaping Use Vaping status: Never Used Substance Use Topics Alcohol use: No Drug use: No REVIEW OF SYMPTOMS: The review of systems data was entered by the nurse and reviewed by me PHYSICAL EXAMINATION: General: The patient is 84 year old, male well nourished, well hydrated in no acute distress. The patient is oriented to time, place, and person. VITALS: Blood pressure 124/68, temperature 36.4 C (97.5 F), height 170.2 cm (5' 7), weight 53.9 kg(118 lb 12.8 oz), SpO2 98%. Body mass index is 18.61 kg/m . HEENT: Normal cephalic, ataumatic, pupils are equally round, sclera are anicteric, mucous membranesare moist, oropharynx is clear. Neck has no masses or asymmetry . Respiratory: Clear to auscultation. Cardiac: Regular rate and rhythm. Abdominal exam: Soft, nontender, with no palpable masses. No hepatosplenomegaly. No palpable hernias. Extremities: no clubbing or cyanosis LABORATORY VALUES: As Noted RADIOLOGIC STUDIES: As Noted Assessment IMPRESSION: fecal occult blood, unintentional weight loss, hx of matute's, family history of coloncancer PLAN: I have reviewed my findings with the surgeon. Will plan for upper and lower endoscopy. We discussed the risks and benefits of the planned endoscopy in terms understandable to the patient. I have informed the patient that complications can occur including failure to complete the endoscopy and p erforation. Margaux had the opportunity to ask questions concerning the planned endoscopy. Margaux freely consents to surgery. I plan to use Golytely bowel preparation I have explained to the patient the difference between IV conscious sedation and MAC anesthesia - and I have offered either, according to the patient's wishes. I have explained that with IV conscioussedation there is no anesthesia provider available and therefore there is a limitation of the amount of IV medications that can be given and that the patient may wake up in the middle of the procedure and/or experience pain/discomfort during the procedure. Further discussion was done and the patient was given the opportunity to ask questions and all questions were answered. Margaux chooses IV conscious sedation. Margaux was counseled that if there are changes in his/her medical condition, to let the office knowif surgery should proceed. If there are changes in patient's medical condition from time of this encounter to the day of the procedure that preclude anesthesia, patient may have procedure cancelled for patient's safety. 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 The note has been reviewed and edited and updated as necessary. Valerie Gaitan APRN.CARTON FOLDER * Saurav Machuca MD - 11/15/2024 7:45 AM EDT HISTORY AND PHYSICAL Margaux Sanderson : 1940 REFERRING PHYSICIAN: No referring provider defined for this encounter. CHIEF COMPLAINT: Patient presents with: Consult: EGD & Colonoscopy HPI: Margaux is a 84 year old male referred for endoscopy. Margaux notes due for surveillance EGD d/tBarrett's & recent weight loss. Margaux denies abdominal pain. Margaux denies diarrhea. Margaux notes constipation. -last 3 weeks harder to pass the stool -increased straining Margaux denies a change in bowel habits. Margaux notes melena. -+iFOBT last week -doesn't notice any blood Margaux denies bright red blood per rectum. Margaux notes hemorrhoids. Margaux notes family history of colon issues. Sister with colon cancer Margaux denies heartburn. -takes omeprazole daily with good relief Margaux denies dysphagia. Margaux denies a history of ulcers/ peptic ulcer disease. 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 He follows with [facility]. He completed radiation in 2022. Disease is stable. He has a hx of COPD- uses duoneb daily, but no other inhalers. Is able to walk up steps & complete activity with no issues Margaux follows with [facility]. Last OV 08/2024. He had a stress test in 2023 EF was 57% & there was no evidence of ischemia. He CP, SOB, dizziness, palpitations, syncope, edema, recent hospitalizations Margaux has undergone prior endoscopy. Last EGD & colonoscopy was 01/[address] Machuca at [facility]. Sedation: MAC T he entire duodenum appeared unremarkable. The antral region appeared normal. Given his previous history of Matute's esophagitis and gastritis, biopsies were taken in the antral region. The remainder of the stomach appeared unremarkable. The fundic portion had no true hiatal hernia, but seemed to have a lax lower esophageal sphincter. There was a very small hiatal hernia. The stomach was aspirated of liquid. As the scope was withdrawn, there was an irregular Z-line with a couple areas of flamed erosion. This was consistent with Matute's esophagitis. Biopsies were taken in all 4 quadrants for the short segment. As the scope was withdrawn, the remainder of the esophagus was unremarkable. COLONOSCOPY Digital rectal exam revealed no palpable abnormalities. As the scope was withdrawn, there was an area which appeared to be consistent with scarring from a previous polypectomy site and an area that did not truly look polypoid, but looked slightly erythematous compared to the other site. Narrow band imaging did not truly Demonstrate to be adenomatous, but the area of concern had 2 biopsies performed with biopsy forceps and then APC Argon beam coagulation was performed to obliterate that area. The remainder of the colon, cecum, ascending colon, hepatic flexure, transverse colon, splenic flexure all appeared unremarkable. Descending and sigmoid had few small diverticula. The scope was retroflexed in the rectum and that was normal. MICROSCOPIC DIAGNOSIS A. Gastric antrum, biopsy: Gastritis. B. GE junction, biopsy: Squamous mucosa with focal changes consistent with reflux. Junctional mucosa with chronic and mild acute inflammation. No evidence of dysplasia. C. Cecum, biopsy: Fragments of tubular adenoma. CURRENT MEDICATIONS Current Outpatient Medications Medication Sig atorvastatin (LIPITOR) 80 mg tablet Take 80 mg by mouth once daily. levothyroxine (SYNTHROID) 112 mcg tablet Take 112 mcg by mouth once daily. finasteride (PROSCAR) 5 mg tablet Take 5 mg by mouth once daily. tamsulosin (FLOMAX) 0.4 mg Take 0.4 mg by mouth once daily. roflumilast (DALIRESP) 500 mcg tab Take 500 mcg by mouth once daily. albuterol (PROVENTIL) 2.5 mg/0.5 mL nebulizar solution Use 2.5 mg via nebulizer every 6 hours as needed. ipratropium-albuterol (DUONEB) 0.5 mg-3 mg(2.5 mg base)/3 mL nebu Inhale 3 mL as instructed. terazosin (HYTRIN) 1 mg capsule Take 1 mg by mouth daily at bedtime. aspirin, enteric coated (ASPIRIN, ENTERIC COATED) 81 mg EC tablet Take 81 mg by mouth once daily. Omeprazole (PRILOSEC) 40 mg capsule Take 1 capsule by mouth 1-2 times daily. peg 3350-Electrolytes (GOLYTELY) 236-22.74-6.74 -5.86 gram suspension Take 4,000 mL by mouth one time only for 1 dose. Refer to printed prep instructions from your provider. No current facility-administered medications for this visit. ALLERGIES: Patient has no allergy information on record. PAST MEDICAL HISTORY PAST MEDICAL HISTORY Diagnosis Date Matute's esophagus Benign neoplasm of colon Blood in stool Disease of lung nodules Diverticulosis of colon (without mention of hemorrhage) GERD (gastroesophageal reflux disease) HTN (hypertension) Hyperlipemia Pure hypercholesterolemia PAST SURGICAL HISTORY PAST SURGICAL HISTORY Procedure Laterality Date COLSC FLX W/REMOVAL LESION BY HOT BX FORCEPS 08/14/12 APC argon fulgration - 1 year follow up COLSC FLX W/REMOVAL LESION BY HOT BX FORCEPS 02/01/16 adenomatous polyp - ablated - 2-3 year follow up COLSC FLX W/RMVL OF TUMOR POLYP LESION SNARE TQ 07/07/2008 Polyp at 30cm, few diverticulosis COLSC FLX W/RMVL OF TUMOR POLYP LESION SNARE TQ 08/13/13 mid transverse colon sessile polyp - unable to removed due to small size and curvature of colon, follow up 1 year - MAC at that time EGD TRANSORAL BIOPSY SINGLE/MULTIPLE 07/07/2008 gastritis, esophagitis EGD TRANSORAL BIOPSY SINGLE/MULTIPLE 08/14/12 improved esophagitis EGD TRANSORAL BIOPSY SINGLE/MULTIPLE 08/13/13 improved esophagitis EGD TRANSORAL BIOPSY SINGLE/MULTIPLE 02/01/16 reflux, not barretts PAST SURGICAL HISTORY OF cyst removed PAST SURGICAL HISTORY OF knee operation left FAMILY HISTORY FAMILY HISTORY Problem Relation Age of Onset Arthritis Mother Thyroid Cancer Mother Ischemic Heart Disease Father Hypertension Father Diabetes Father Heart Failure Father Stroke Father Colon Cancer Sister SOCIAL HISTORY Social History Tobacco Use Smoking status: Former Current packs/day: 0.00 Average packs/day: 1 pack/day for 50.0 years (50.0 ttl pk-yrs) Types: Cigarettes Start date: 05/09/1962 Quit date: 05/09/2012 Years since quittin.4 Smokeless tobacco: Current Types: Snuff, Chew Vaping Use Vaping status: Never Used Substance Use Topics Alcohol use: No Drug use: No REVIEW OF SYMPTOMS: The review of systems data was entered by the nurse and reviewed by me PHYSICAL EXAMINATION: General: The patient is 84 year old, male well nourished, well hydrated in no acute distress. The patient is oriented to time, place, and person. VITALS: Blood pressure 124/68, temperature 36.4 C (97.5 F), height 170.2 cm (5' 7), weight 53.9 kg(118 lb 12.8 oz), SpO2 98%. Body mass index is 18.61 kg/m . HEENT: Normal cephalic, ataumatic, pupils are equally round, sclera are anicteric, mucous membranesare moist, oropharynx is clear. Neck has no masses or asymmetry . Respiratory: Clear to auscultation. Cardiac: Regular rate and rhythm. Abdominal exam: Soft, nontender, with no palpable masses. No hepatosplenomegaly. No palpable hernias. Extremities: no clubbing or cyanosis LABORATORY VALUES: As Noted RADIOLOGIC STUDIES: As Noted Assessment IMPRESSION: fecal occult blood, unintentional weight loss, hx of matute's, family history of coloncancer PLAN: I have reviewed my findings with the surgeon. Will plan for upper and lower endoscopy. We discussed the risks and benefits of the planned endoscopy in terms understandable to the patient. I have informed the patient that complications can occur including failure to complete the endoscopy and p erforation. Margaux had the opportunity to ask questions concerning the planned endoscopy. Margaux freely consents to surgery. I plan to use Golytely bowel preparation I have explained to the patient the difference between IV conscious sedation and MAC anesthesia - and I have offered either, according to the patient's wishes. I have explained that with IV conscioussedation there is no anesthesia provider available and therefore there is a limitation of the amount of IV medications that can be given and that the patient may wake up in the middle of the procedure and/or experience pain/discomfort during the procedure. Further discussion was done and the patient was given the opportunity to ask questions and all questions were answered. Margaux chooses IV conscious sedation. Margaux was counseled that if there are changes in his/her medical condition, to let the office knowif surgery should proceed. If there are changes in patient's medical condition from time of this encounter to the day of the procedure that preclude anesthesia, patient may have procedure cancelled for patient's safety. 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 The note has been reviewed and edited and updated as necessary. Valerie Gaitan APRN.CARTON FOLDER documented in this encounterUniversity Hospitals [facility]08-07-2025 [facility] [address] [place], [place] [address] [address] OFFICE VISIT Date of Service: 10/31/24 1303 MR#: [id number] Acct: [id number] Name: MARGAUX SANDERSON Rep #: [id number] : 1940 From: Alejandro abad DO Age/Sex: 84/M [place] [facility] [place]: [place] Intake Vital Signs 07/08/24 11:09 08/29/24 07:21 10/21/24 10:12 10/31/24 13:05 Height 5 ft 7 in 5 ft 7 in 5 ft 7 in 5 ft 7 in Weight: 116 lb 8 oz BMI 18.2 BP 172/69 H Blood Pressure Location Rt brachial Position Sitting Respiration 14 Pulse 74 Pulse Source Monitor Temp 97.4 F L Temperature Source Temporal Artery Pulse Oximetry (%) 97 Oxygen Delivery Method room air Intake Visit Reasons: 4 MONTH LUNG, REVIEW CT Is patient in pain?: No Allergies No Known Allergies Allergy (Verified 10/31/24 13:05) Medications ?Medication ?Instructions ?Recorded ?Confirmed ?Type aspirin 81 mg tablet,delayed 81 mg PO DAILY 01/27/16 0 10/31/24 History release terazosin 1 mg capsule 1 mg PO DAILY 04/18/1910/31 History omeprazole 40 mg capsule,delayed 40 mg PO DAILY 10/31/24 History release tamsulosin 0.4 mg capsule 0.4 mg PO DAILY 04/20/2110/18 History budesonide 0.25 mg/2 mL suspension 0.25 mg inhalation BID 10/20/21 10/31/24 History for nebulization multivitamin 1 tab PO DAILY 12/12/22 0810/18 History finasteride 5 mg tablet 5 mg PO DAILY 11/15/2310/31 History levothyroxine 112 mcg tablet 112 mcg PO QDAY 11/28/23 10/31/24 History atorvastatin 80 mg tablet (Lipitor) 80 mg PO QHS #30 t abs 09/24/24 10/31/24 Rx roflumilast 500 mcg tablet 500 mcg PO QDAY 09/24/24 History (Kishaniresandrés) Have you fallen in the past year?: [...] pulmonary disease) Asthma Seasonal allergies Home Medications ?Medication ?Instructions ?Recorded ?Last Taken ?Type aspirin 81 mg tablet,delayed 81 mg PO DAILY 01/27/16 0 10/04/23 History release terazosin 1 mg capsule 1 mg PO DAILY 04/18/1910/04 History omeprazole 40 mg capsule,delayed 40 mg PO DAILY 10/05/23 History release tamsulosin 0.4 mg capsule 0.4 mg PO DAILY 04/20/21 Unk nown History budesonide 0.25 mg/2 mL suspension 0.25 mg inhalation BID 10/20/21 10/05/23 History for nebulization multivitamin 1 tab PO DAILY 12/12/22 Unkn own History finasteride 5 mg tablet 5 mg PO DAILY 11/15/23 Unkno wn History levothyroxine 112 mcg tablet 112 mcg PO QDAY 09/03/24 Unknown History atorvastatin 80 mg tablet (Lipitor) 80 mg PO QHS #30 t abs 09/24/24 Unknown Rx roflumilast 500 mcg tablet 500 mcg PO QDAY 09/24/24 Un known History (Daliresp) Allergy/AdvReac Type Severity Reaction Status Date / Time No Known Allergies Allergy Verified 10/31/24 13:05 Family History Father Diabetes Hypertension CVA (cerebral vascular accident) Mother Thyroid disorder Arthritis Surgical History History of thyroidectomy, total (~10/2020) Hx of lithotripsy History of needle biopsy (09/16/20) History of colonoscopy with polypectomy History of esophagogastroduodenoscopy History of arthroscopy of knee History of cataract extraction Social History Smoking Status: Former smoker quit date: 03/27/12 pack-years: 50 how long ago did patient quit smoking: quit 12-14 years ago alcohol intake: never substance use type: does not use what type of physical activity do you participate in: none additional social history: pt denies vaping, denies marijuana use, denies edibles, denies alcohol use, uses baby aspirin daily uses ibuprofen as needed Diagnosis: Margaux Sanderson is an 84-year-old male diagnosed with 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 From 01/16/2023 ? 01/26/2023 hereceived lung SBRT. History of Present Illness: 07/14/2020: PET scan was performed.? This demonstrated markedly hypermetabolic left thyroid nodule suspicious for malignancy, further evaluation with ultrasound is recommended.? Within the chest thereis mildly hypermetabolic and mildly spiculated right upper lobe nodule within the lung highly suspicious for malignancy.? There is mild nonspecific uptake in the bilateral katie likely related to small lymph nodes reactive in nature.? No hypermetabolic mediastinal lymphadenopathy is noted no evidence of metastatic disease is appreciated. 10/26/2020: Patient completed total thyroidectomy.? 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 No evidence of malignancy. 11/11/2020: CT chest with contrast was performed.? This demonstrated no measurable change in the size of the right upper lobe nodule when compared to the prior study of May 08, 2020.? On upon review of the older outside images the nodule has shown very mild growth since the prior study of May 08, 2017, this very slow growth would be unusual for malignancy and is suggestive of benign disease.? The current measurement is 7.6 x 7.5 mm. 05/12/2021: CT chest without contrast was performed.? This demonstrated the irregular lobulated and spiculated nodule in the right upper lobe is not substantially changed in size but there are slight differences now measuring 7 x9 mm and previously measuring 8 x 8 mm. 11/10/2021: CT chest without contrast was performed.? This demonstrated that the irregular right upper lobe nodule is overall similar in appearance to the prior studies.? No new lesions are noted no adenopathy is noted.? 11/04/2022: CT chest without contrast was completed.? This demonstrated increasedsize of the right upper lobe lesion measuring approximate 12 x 11 mm and previously measured 8 x 7 mm, no new worrisomenodules are noted. 12/02/2022: CT-guided biopsy of the right upper lobe lesion was completed pleated.? Pathology demonstrated adenocarcinoma.? From 01/16/2023 ? 01/26/2023: received Stereotactic Body Radiation Therapy consisting of 5000 cGy of6 FFF MV photons in 5 fractions to the RUL primary lung adenocarcinoma with a VMAT technique. 04/24/2023: CT chest without contrast was performed.? This demonstrated a residual 18 x 13 mm spiculated nodule within the right upper lobe similar in appearance to prior studies.? No other new abnormalities are noted. 07/24/2023: CT chest without contrast was performed. This demonstrated an elongated spiculated pulmonary nodule/and or fibrosis in the right upper lobe extending to the right lung apex. This appears more suspicious for postradiation changes then progression of neoplasm. No other evidence of new nodularity, lymphadenopathy, or metastatic disease is appreciated. 11/23/2023: CT chest without contrast was performed.? This demonstrated slight increase in the nodular component of the right apical pulmonary scarring raisingthe possibility of residual recurrent neoplasm, PET scan would be reasonable.? No new findings are apparent. 02/26/2024: Patient completed CT chest without contrast. This demonstrated a spiculated mass within the right upper lobe measures 1.3 x 1 cm today compared to 2.4 x 1.5 cm on the prior PET scan. Thereappears to be continued response. No new lesions are appreciated. 06/27/2024: Patient completed CT chest with contrast. This demonstrated stable 1.3 x 1 cm spiculated nodule in the medial aspect of the right upper lobe. No new lesions and no adenopathy. 10/29/2024: CT chest with contrast was performed. This demonstrated stable examination. Hyperinflatedemphysematous lungs. There is a stable 1 x 1.3 cm nodule in the medial apical segment of the right upper lobe with surrounding scarring. No adenopathy or other lesions are appreciated. Radiation Treatment History: 1) From 01/16/2023 ? 01/26/2023: received Stereotactic Body Radiation Therapy consisting of 5000 cGyof 6 FFF MV photons in 5 fractions to the RUL primary lung adenocarcinoma with a VMAT technique. Interval History: Patient returns for routine follow-up approximately 21 months after completing lung SBRT. He reports doing well overall. He believes his shortness of breath is mostly stable, maybe slight worsening. Has a follow up with pulmonary in thenext few weeks, doing a walk test. Continues to use his nebulizer regularly butno other inhalers, he does not use oxygen. Weight decreased slightly, appetite is stable but low. He denies having cough or hemoptysis. He denies dysphagia or odynophagia. He denies headaches, vision changes, focal weakness/numbness, nausea/vomiting, bone pain. He is able to stay very active in his daily life and completes all ADLs without any difficulty. He denies having other problems or concerns at this time. Review of Systems: A 12-point review of systems was completed and was negative except for what is noted in the HPI/Interval History and by the nurse. Physical Exam: Weight: 116 lbs 8 oz ECO KARNOFSKY SCORE: 70% CONSTITUTIONAL: Well-developed, well-nourished, and in no apparent distress. NECK: Supple, no thyromegaly, and non-tender. Trachea midline. No cervical or supraclavicular adenopathy noted. CARDIAC: Regular rate and rhythm. Normal S1, S2. No murmurs, rubs, or gallops. PULMONARY/CHEST: Lungs are clear to auscultation and percussion bilaterally. No wheezes, rhonchi, or crackles noted. No increased work of breathing. PSYCHIATRIC: Appropriate mood and affect for the clinical situation. 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 From 01/16/2023 ? 01/26/2023 hereceived lung SBRT. ? Plan: Patient presents for follow-up approximately 21 months after completing lung SBRT. He does not haveany signs or symptoms concerning for development of disease progression or metastatic disease. He has persistent fairly mild SOB andusing nebulizer per pulm. CT chest completed 10/29/2024 and compared to prior scans, appears to have good response in the treated area, does appear to have some fibrosislikely postradiation changes which may be contributed some to his mild increase shortness of breath, has some persistent nodularity which does still seem consistent with treatment effect, planning close observation with CT chest in 4 months. I will have him return for routine follow-up after his next CT in 4 months. Has colonoscopy planned due to reduce Hgb and concern for rectal bleeding. He wasinstructed to call with any further questions or concerns in the interim. ? ? Thank you for allowing me to participate in the management and care of your patient. If I may answer any questions in the interim, please do not hesitate tocontact me at any time. ? Alejandro Machado DO, MS [facility], Department of Radiation Oncology [facility] Coding Level of Care Code Off vis,est,level 3 Diagnoses Primary adenocarcinoma of upper lobe of right lung C34.11 10/31/24 1333 DO> Date _ Alejandro Machado DO Cosigner Signature: Date (if applicable) CC: ~ [facility]08-07-2025 Progress note Author Alejandro Machado [facility] Note Date/Time October 31, 2024 1:3 3pm [facility] [address] [address] OFFICE VISIT Date of Service: 10/31/24 1303 MR#: [id number] Acct: [id number] Name: MARGAUX SANDERSON Rep #: [id number] : 1940 From: Alejandro abad DO Age/Sex: 84/M [place] [facility] [place]: [place] Intake Vital Signs 07/08/24 11:09 08/29/24 07:21 10/21/24 10:12 10/31/24 13:05 Height 5 ft 7 in 5 ft 7 in 5 ft 7 in 5 ft 7 in Weight: 116 lb 8 oz BMI 18.2 BP 172/69 H Blood Pressure Location Rt brachial Position Sitting Respiration 14 Pulse 74 Pulse Source Monitor Temp 97.4 F L Temperature Source Temporal Artery Pulse Oximetry (%) 97 Oxygen Delivery Method room air Intake Visit Reasons: 4 MONTH LUNG, REVIEW CT Is patient in pain?: No Allergies No Known Allergies Allergy (Verified 10/31/24 13:05) Medications ?Medication ?Instructions ?Recorded ?Confirmed ?Type aspirin 81 mg tablet,delayed 81 mg PO DAILY 11/02/16 0 10/31/24 History release terazosin 1 mg capsule 1 mg PO DAILY 04/18/1910/31 History omeprazole 40 mg capsule,delayed 40 mg PO DAILY 10/31/24 History release tamsulosin 0.4 mg capsule 0.4 mg PO DAILY 04/20/2110/18 History budesonide 0.25 mg/2 mL suspension 0.25 mg inhalation BID 10/20/21 10/31/24 History for nebulization multivitamin 1 tab PO DAILY 12/12/2210/18 History finasteride 5 mg tablet 5 mg PO DAILY 11/15/2310/31 History levothyroxine 112 mcg tablet 112 mcg PO QDAY 11/28/23 10/31/24 History atorvastatin 80 mg tablet (Lipitor) 80 mg PO QHS #30 t abs 09/24/24 10/31/24 Rx roflumilast 500 mcg tablet 500 mcg PO QDAY 09/24/24 History (C[place]rick) Have you fallen in the past year?: [...] pulmonary disease) Asthma Seasonal allergies Home Medications ?Medication ?Instructions ?Recorded ?Last Taken ?Type aspirin 81 mg tablet,delayed 81 mg PO DAILY 01/27/16 0 10/04/23 History release terazosin 1 mg capsule 1 mg PO DAILY 04/18/1910/04 History omeprazole 40 mg capsule,delayed 40 mg PO DAILY 10/05/23 History release tamsulosin 0.4 mg capsule 0.4 mg PO DAILY 04/20/21 Unk nown History budesonide 0.25 mg/2 mL suspension 0.25 mg inhalation BID 10/20/21 10/05/23 History for nebulization multivitamin 1 tab PO DAILY 12/12/22 Unkn own History finasteride 5 mg tablet 5 mg PO DAILY 11/15/23 Unkno wn History levothyroxine 112 mcg tablet 112 mcg PO QDAY 11/28/23 Unknown History atorvastatin 80 mg tablet (Lipitor) 80 mg PO QHS #30 t abs 09/24/24 Unknown Rx roflumilast 500 mcg tablet 500 mcg PO QDAY 09/24/24 Un known History (Daliresp) Allergy/AdvReac Type Severity Reaction Status Date / Time No Known Allergies Allergy Verified 10/31/24 13:05 Family History Father Diabetes Hypertension CVA (cerebral vascular accident) Mother Thyroid disorder Arthritis Surgical History History of thyroidectomy, total (~10/2020) Hx of lithotripsy History of needle biopsy (09/16/20) History of colonoscopy with polypectomy History of esophagogastroduodenoscopy History of arthroscopy of knee History of cataract extraction Social History Smoking Status: Former smoker quit date: 03/27/12 pack-years: 50 how long ago did patient quit smoking: quit 12-14 years ago alcohol intake: never substance use type: does not use what type of physical activity do you participate in: none additional social history: pt denies vaping, denies marijuana use, denies edibles, denies alcohol use, uses baby aspirin daily uses ibuprofen as needed Diagnosis: Margaux Sanderson is an 84-year-old male diagnosed with 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 From 01/16/2023 ? 01/26/2023 he received lung SBRT. History of Present Illness: 07/14/2020: PET scan was performed.? This demonstrated markedly hypermetabolic left thyroid nodule suspicious for malignancy, further evaluation with ultrasound is recommended.? Within the chest there is mildly hypermetabolic and mildly spiculated right upper lobe nodule within the lung highly suspicious for malignancy.? There is mild nonspecific uptake in the bilateral katie likely related to small lymph nodes reactive in nature.? No hypermetabolic mediastinal lymphadenopathy is noted no evidence of metastatic disease is appreciated. 10/26/2020: Patient completed total thyroidectomy.? 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 No evidence of malignancy. 11/11/2020: CT chest with contrast was performed.? This demonstrated no measurable change in the size of the right upper lobe nodule when compared to the prior study of May 08, 2020.? On upon review of the older outside images the nodule has shown very mild growth since the prior study of May 08, 2017, this very slow growth would be unusual for malignancy and is suggestive of benign disease.? The current measurement is 7.6 x 7.5 mm. 05/12/2021: CT chest without contrast was performed.? This demonstrated the irregular lobulated and spiculated nodule in the right upper lobe is not substantially changed in size but there are slight differences now measuring 7 x9 mm and previously measuring 8 x 8 mm. 11/10/2021: CT chest without contrast was performed.? This demonstrated that the irregular right upper lobe nodule is overall similar in appearance to the prior studies.? No new lesions are noted no adenopathy is noted.? 11/04/2022: CT chest without contrast was completed.? This demonstrated increasedsize of the right upper lobe lesion measuring approximate 12 x 11 mm and previously measured 8 x 7 mm, no new worrisome nodules are noted. 12/02/2022: CT-guided biopsy of the right upper lobe lesion was completed pleated.? Pathology demonstrated adenocarcinoma.? From 01/16/2023 ? 01/26/2023: received Stereotactic Body Radiation Therapy consisting of 5000 cGy of 6 FFF MV photons in 5 fractions to the RUL primary lung adenocarcinoma with a VMAT technique. 04/24/2023: CT chest without contrast was performed.? This demonstrated a residual 18 x 13 mm spiculated nodule within the right upper lobe similar in appearance to prior studies.? No other new abnormalities are noted. 07/24/2023: CT chest without contrast was performed. This demonstrated an elongated spiculated pulmonary nodule/and or fibrosis in the right upper lobe extending to the right lung apex. This appears more suspicious for postradiation changes then progression of neoplasm. No other evidence of new nodularity, lymphadenopathy, or metastatic disease is appreciated. 11/23/2023: CT chest without contrast was performed.? This demonstrated slight increase in the nodular component of the right apical pulmonary scarring raisingthe possibility of residual recurrent neoplasm, PET scan would be reasonable.? No new findings are apparent. 02/26/2024: Patient completed CT chest without contrast. This demonstrated a spiculated mass within the right upper lobe measures 1.3 x 1 cm today compared to 2.4 x 1.5 cm on the prior PET scan. There appears to be continued response. No new lesions are appreciated. 06/27/2024: Patient completed CT chest with contrast. This demonstrated stable 1.3 x 1 cm spiculated nodule in the medial aspect of the right upper lobe. No new lesions and no adenopathy. 10/29/2024: CT chest with contrast was performed. This demonstrated stable examination. Hyperinflated emphysematous lungs. There is a stable 1 x 1.3 cm nodule in the medial apical segment of the right upper lobe with surrounding scarring. No adenopathy or other lesions are appreciated. Radiation Treatment History: 1) From 01/16/2023 ? 01/26/2023: received Stereotactic Body Radiation Therapy consisting of 5000 cGy of 6 FFF MV photons in 5 fractions to the RUL primary lung adenocarcinoma with a VMAT technique. Interval History: Patient returns for routine follow-up approximately 21 months after completing lung SBRT. He reports doing well overall. He believes his shortness of breath is mostly stable, maybe slight worsening. Has a follow up with pulmonary in thenext few weeks, doing a walk test. Continues to use his nebulizer regularly butno other inhalers, he does not use oxygen. Weight decreased slightly, appetite is stable but low. He denies having cough or hemoptysis. He denies dysphagia or odynophagia. He denies headaches, vision changes, focal weakness/numbness, nausea/vomiting, bone pain. He is able to stay very active in his daily life and completes all ADLs without any difficulty. He denies having other problems or concerns at this time. Review of Systems: A 12-point review of systems was completed and was negative except for what is noted in the HPI/Interval History and by the nurse. Physical Exam: Weight: 116 lbs 8 oz ECO KARNOFSKY SCORE: 70% CONSTITUTIONAL: Well-developed, well-nourished, and in no apparent distress. NECK: Supple, no thyromegaly, and non-tender. Trachea midline. No cervical or supraclavicular adenopathy noted. CARDIAC: Regular rate and rhythm. Normal S1, S2. No murmurs, rubs, or gallops. PULMONARY/CHEST: Lungs are clear to auscultation and percussion bilaterally. No wheezes, rhonchi, or crackles noted. No increased work of breathing. PSYCHIATRIC: Appropriate mood and affect for the clinical situation. 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 From 01/16/2023 ? 01/26/2023 he received lung SBRT. ? Plan: Patient presents for follow-up approximately 21 months after completing lung SBRT. He does not have any signs or symptoms concerning for development of disease progression or metastatic disease. He has persistent fairly mild SOB andusing nebulizer per pulm. CT chest completed 10/29/2024 and compared to prior scans, appears to have good response in the treated area, does appear to have some fibrosis likely postradiation changes which may be contributed some to his mild increase shortness of breath, has some persistent nodularity which does still seem consistent with treatment effect, planning close observation with CT chest in 4 months. I will have him return for routine follow-up after his next CT in 4 months. Has colonoscopy planned due to reduce Hgb and concern for rectal bleeding. He was instructed to call with any further questions or concerns in the interim. ? ? Thank you for allowing me to participate in the management and care of your patient. If I may answer any questions in the interim, please do not hesitate tocontact me at any time. ? Alejandro Machado DO, MS [facility], Department of Radiation Oncology [facility] Coding Level of Care Code Off vis,est,level 3 Diagnoses Primary adenocarcinoma of upper lobe of right lung C34.11 10/31/24 1333 <Electronically signed by Alejandro Machado DO> Date _ Alejandro Machado DO Cosigner Signature: Date (if applicable) CC: ~ [facility] Work Phone: [phone] Radiology Diagnostic study note [facility] Imaging Services [address] [place] [id number] Chest WITH Contrast MR#: [id number] Acct: [id number] Name: MARGAUX SANDERSON Rep #: [id number] : 1940 M 84 From: Robert Knowles MD PCP: Dr. Alexander Steiner MD Status: [facility]OLINAR [facility]OR Study:Chest WITH Contrast Date of Exam: 10/29/24 Exam# [id number] Ordering Dr: Alejandro Machado DO PROCEDURE: CHEST WITH CONTRAST 10/29/2024 REASON FOR EXAM: FOLLOW UP TREATED LUNG CANCER TECHNIQUE: CHEST WITH CONTRAST Coronal and Sagittal reconstruction series were provided. CONTRAST: Isovue-300 VOLUME: 100 mL One or more dose reduction techniques were used (e.g., Automated exposure control, adjustment of the mA and/or kV according to patient size, use of iterative reconstruction technique). RADIATION DOSE SUMMARY: CTDlvol: 9.15 mGy DLP: 213.68 mGycm COMPARISON: Prior study dated June 27, 2024. FINDINGS: Hardware: None Lymph nodes: No suspicious hilar or mediastinal lymphadenopathy. Heart and Vasculature: The heart is nonenlarged. Coronary artery calcification. Lungs and Airways: Hyperinflation. Emphysematous changes. Stable 1 cm x 1.3 cmnodule in the medial apical segment of the right upper lobe with surrounding scarring. Pleura: No pleural effusion. Upper Abdomen: Unremarkable. Bones: Degenerative changes of the thoracic spine. CT/Chest WITH Contrast IMPRESSION: Coronary artery calcification (CAC) is is present Stable examination. Reading Location: [id number] CC: Dr. Alejandro Machado DO; Dr. Alexander Steiner MD ~ Bridge Repairer: Signed [facility]07-25-2025 Telephone encounter Note* Telephone Encounter - Valerie Gaitan APRN.CNP - 10/18/2024 10:48 AM EDT Golytely sent to [facility] in [place]. [facility]07-25-2025 Miscellaneous Notes* Telephone Encounter - Valerie Gaitan APRN.CNP - 10/18/2024 10:48 AM EDT Golytely sent to [facility] in [place]. * Telephone Encounter - Debbie Brown - 10/15/2024 8:20 AM EDT Patient daughter called and had her father drink the Golytley yesterday because she thought the colonoscopy was on 10/15/24. Please send another Golytley to the pharmacy in [place] for procedure on 11/15/24. [facility] Telephone encounter Note * Telephone Encounter - Debbie Brown - 10/15/2024 8:20 AM EDT Patient daughter called and had her father drink the Golytley yesterday because she thought the colonoscopy was on 10/15/24. Please send another Golchar to the pharmacy in [place] for procedure on 11/15/24. [facility]07-09-2025 Radiology Diagnostic study note [facility] Imaging Services [address] [place] [address] Abdomen/Pelvis WITH Contrast MR#: [id number] Acct: [id number] Name: MARGAUX SANDERSON Rep #: [id number] : 1940 M 84 From: Robert Knowles MD PCP: Dr. Alexander Steiner MD Status: [facility] [place] Study:Abdomen/Pelvis WITH Contrast Date of Ex am: 10/02/24 Exam# [id number] Ordering Dr: Alexander Steiner MD PROCEDURE: ABDOMEN/PELVIS WITH CONTRAST 10/02/2024 REASON FOR EXAM: WEIGHT LOSS Blood in the stool. History of lung cancer. TECHNIQUE: ABDOMEN/PELVIS WITH CONTRAST Coronal and Sagittal reconstruction series were provided. CONTRAST: Isovue 3 7 VOLUME: 75 mL One or more dose reduction techniques were used (e.g., Automated exposure control, adjustment of the mA and/or kV according to patient size, use of iterative reconstruction technique. RADIATION DOSE SUMMARY: CTDlvol: 8.6 mGy DLP: 242.09 mGycm COMPARISON: Prior study dated October 03, 2023 FINDINGS: Lung bases: Lung bases are clear. Minimal coronary artery calcification. Liver: Normal size. No mass. Gallbladder: Gallbladder is contracted. Spleen: Normal size. Pancreas: Diffuse fatty atrophy. Adrenals: Unremarkable Kidneys: Unremarkable Bladder: Unremarkable. Central prosthetic calcifications. Bowel: Colonic diverticulosis without diverticulitis. Appendix: Unremarkable Lymph nodes: Unremarkable. Vasculature: Mild diffuse atherosclerotic calcifications are noted. Peritoneum / Retroperitoneum: Unremarkable Bones: Degenerative changes of the spine. CT/Abdomen/Pelvis WITH Contrast IMPRESSION: Diffuse atrophy of the pancreas. No acute abnormality is seen. Reading Location: [place] [address] CC: Dr. Alexander Steiner MD ~ Bridge Repairer: Signed [facility]07-07-2025 History of Present illness Narrative* Valerie Gaitan APRN.CARTON FOLDER - 09/30/2024 11:30 AM EDT HISTORY AND PHYSICAL Margaux Sanderson : 1940 REFERRING PHYSICIAN: No referring provider defined for this encounter. CHIEF COMPLAINT: Patient presents with: Consult: EGD & Colonoscopy HPI: Margaux is a 84 year old male referred for endoscopy. Margaux notes due for surveillance EGD d/tBarrett's & recent weight loss. Margaux denies abdominal pain. Margaux denies diarrhea. Margaux notes constipation. -last 3 weeks harder to pass the stool -increased straining Margaux denies a change in bowel habits. Margaux notes melena. -+iFOBT last week -doesn't notice any blood Margaux denies bright red blood per rectum. Margaux notes hemorrhoids. Margaux notes family history of colon issues. Sister with colon cancer Margaux denies heartburn. -takes omeprazole daily with good relief Margaux denies dysphagia. Margaux denies a history of ulcers/ peptic ulcer disease. Margaux notes 10lb weight loss over the last year Mragaux notes epigastric pain Margaux notes decreased appetite Margaux currently has right upper lobe lung cancer. He follows with [facility]. He completed radiation in 2022. Disease is stable. He has a hx of COPD- uses duoneb daily, but no other inhalers. Is able to walk up steps & complete activity with no issues Margaux follows with [facility]. Last OV 08/2024. He had a stress test in 2023 EF was 57% & there was no evidence of ischemia. He CP, SOB, dizziness, palpitations, syncope, edema, recent hospitalizations Margaux has undergone prior endoscopy. Last EGD & colonoscopy was 01/[address] Machuca at [facility]. Sedation: MAC T he entire duodenum appeared unremarkable. The antral region appeared normal. Given his previous history of Matute's esophagitis and gastritis, biopsies were taken in the antral region. The remainder of the stomach appeared unremarkable. The fundic portion had no true hiatal hernia, but seemed to have a lax lower esophageal sphincter. There was a very small hiatal hernia. The stomach was aspirated of liquid. As the scope was withdrawn, there was an irregular Z-line with a couple areas of flamed erosion. This was consistent with Matute's esophagitis. Biopsies were taken in all 4 quadrants for the short segment. As the scope was withdrawn, the remainder of the esophagus was unremarkable. COLONOSCOPY Digital rectal exam revealed no palpable abnormalities. As the scope was withdrawn, there was an area which appeared to be consistent with scarring from a previous polypectomy site and an area that did not truly look polypoid, but looked slightly erythematous compared to the other site. Narrow band imaging did not truly Demonstrate to be adenomatous, but the area of concern had 2 biopsies performed with biopsy forceps and then APC Argon beam coagulation was performed to obliterate that area. The remainder of the colon, cecum, ascending colon, hepatic flexure, transverse colon, splenic flexure all appeared unremarkable. Descending and sigmoid had few small diverticula. The scope was retroflexed in the rectum and that was normal. MICROSCOPIC DIAGNOSIS A. Gastric antrum, biopsy: Gastritis. B. GE junction, biopsy: Squamous mucosa with focal changes consistent with reflux. Junctional mucosa with chronic and mild acute inflammation. No evidence of dysplasia. C. Cecum, biopsy: Fragments of tubular adenoma. Current Outpatient Medications Medication Sig atorvastatin (LIPITOR) 80 mg tablet Take 80 mg by mouth once daily. levothyroxine (SYNTHROID) 112 mcg tablet Take 112 mcg by mouth once daily. finasteride (PROSCAR) 5 mg tablet Take 5 mg by mouth once daily. tamsulosin (FLOMAX) 0.4 mg Take 0.4 mg by mouth once daily. roflumilast (DALIRESP) 500 mcg tab Take 500 mcg by mouth once daily. albuterol (PROVENTIL) 2.5 mg/0.5 mL nebulizar solution Use 2.5 mg via nebulizer every 6 hours as needed. ipratropium-albuterol (DUONEB) 0.5 mg-3 mg(2.5 mg base)/3 mL nebu Inhale 3 mL as instructed. terazosin (HYTRIN) 1 mg capsule Take 1 mg by mouth daily at bedtime. aspirin, enteric coated (ASPIRIN, ENTERIC COATED) 81 mg EC tablet Take 81 mg by mouth once daily. Omeprazole (PRILOSEC) 40 mg capsule Take 1 capsule by mouth 1-2 times daily. peg 3350-Electrolytes (GOLYTELY) 236-22.74-6.74 -5.86 gram suspension Take 4,000 mL by mouth one time only for 1 dose. Refer to printed prep instructions from your provider. No current facility-administered medications for this visit. ALLERGIES: Patient has no allergy information on record. PAST MEDICAL HISTORY Diagnosis Date Matute's esophagus Benign neoplasm of colon Blood in stool Disease of lung nodules Diverticulosis of colon (without mention of hemorrhage) GERD (gastroesophageal reflux disease) HTN (hypertension) Hyperlipemia Pure hypercholesterolemia PAST SURGICAL HISTORY Procedure Laterality Date COLSC FLX W/REMOVAL LESION BY HOT BX FORCEPS 08/14/12 APC argon fulgration - 1 year follow up COLSC FLX W/REMOVAL LESION BY HOT BX FORCEPS 02/01/16 adenomatous polyp - ablated - 2-3 year follow up COLSC FLX W/RMVL OF TUMOR POLYP LESION SNARE TQ 07/07/2008 Polyp at 30cm, few diverticulosis COLSC FLX W/RMVL OF TUMOR POLYP LESION SNARE TQ 08/13/13 mid transverse colon sessile polyp - unable to removed due to small size and curvature of colon, follow up 1 year - [facility] [place] at that time EGD TRANSORAL BIOPSY SINGLE/MULTIPLE 07/07/2008 gastritis, esophagitis EGD TRANSORAL BIOPSY SINGLE/MULTIPLE 08/14/12 improved esophagitis EGD TRANSORAL BIOPSY SINGLE/MULTIPLE 08/13/13 improved esophagitis EGD TRANSORAL BIOPSY SINGLE/MULTIPLE 02/01/16 reflux, not barretts PAST SURGICAL HISTORY OF cyst removed PAST SURGICAL HISTORY OF knee operation left FAMILY HISTORY Problem Relation Age of Onset Arthritis Mother Thyroid Cancer Mother Ischemic Heart Disease Father Hypertension Father Diabetes Father Heart Failure Father Stroke Father Colon Cancer Sister Social History Tobacco Use Smoking status: Former Current packs/day: 0.00 Average packs/day: 1 pack/day for 50.0 years (50.0 ttl pk-yrs) Types: Cigarettes Start date: 05/09/1962 Quit date: 05/09/2012 Years since quittin.4 Smokeless tobacco: Current Types: Snuff, Chew Vaping Use Vaping status: Never Used Substance Use Topics Alcohol use: No Drug use: No REVIEW OF SYMPTOMS: The review of systems data was entered by the nurse and reviewed by me PHYSICAL EXAMINATION: General: The patient is 84 year old, male well nourished, well hydrated in no acute distress. The patient is oriented to time, place, and person. VITALS: Blood pressure 124/68, temperature 36.4 C (97.5 F), height 170.2 cm (5' 7), weight 53.9 kg(118 lb 12.8 oz), SpO2 98%. Body mass index is 18.61 kg/m . HEENT: Normal cephalic, ataumatic, pupils are equally round, sclera are anicteric, mucous membranesare moist, oropharynx is clear. Neck has no masses or asymmetry . Respiratory: Clear to auscultation. Cardiac: Regular rate and rhythm. Abdominal exam: Soft, nontender, with no palpable masses. No hepatosplenomegaly. No palpable hernias. Extremities: no clubbing or cyanosis LABORATORY VALUES: As Noted RADIOLOGIC STUDIES: As Noted Assessment IMPRESSION: fecal occult blood, unintentional weight loss, hx of matute's, family history of coloncancer PLAN: I have reviewed my findings with the surgeon. Will plan for upper and lower endoscopy. We discussed the risks and benefits of the planned endoscopy in terms understandable to the patient. I have informed the patient that complications can occur including failure to complete the endoscopy and p erforation. Margaux had the opportunity to ask questions concerning the planned endoscopy. Margaux freely consents to surgery. I plan to use Golytely bowel preparation I have explained to the patient the difference between IV conscious sedation and MAC anesthesia - and I have offered either, according to the patient's wishes. I have explained that with IV conscioussedation there is no anesthesia provider available and therefore there is a limitation of the amount of IV medications that can be given and that the patient may wake up in the middle of the procedure and/or experience pain/discomfort during the procedure. Further discussion was done and the patient was given the opportunity to ask questions and all questions were answered. Margaux chooses IV conscious sedation. Margaux was counseled that if there are changes in his/her medical condition, to let the office knowif surgery should proceed. If there are changes in patient's medical condition from time of this encounter to the day of the procedure that preclude anesthesia, patient may have procedure cancelled for patient's safety. 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 The note has been reviewed and edited and updated as necessary. Valerie Gaitan APRN.SHINE documented in this encounterUniversity [facility]25 NoteHNO ID: [id number] Author: VALERIE GAITAN APRN.CARTON FOLDER Service: ? Author Type: Nurse Practitioner Type: Progress Notes Filed: 09/30/2024 13:52 Note Text: HISTORY AND PHYSICAL Margaux Sanderson : 1940 REFERRING PHYSICIAN: No referring provider defined for this encounter. CHIEF COMPLAINT: Patient presents with: Consult: EGD AND Colonoscopy HPI: Margaux is a 84 year old male referred for endoscopy. 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 Margaux denies abdominal pain. Margaux denies diarrhea. Margaux notes constipation. -last 3 weeks harder to pass the stool -increased straining Margaux denies a change in bowel habits. Margaux notes melena. -+iFOBT last week -doesn't notice any blood Margaux denies bright red blood per rectum. Margaux notes hemorrhoids. Margaux notes family history of colon issues. Sister with colon cancer Margaux denies heartburn. -takes omeprazole daily with good relief Margaux denies dysphagia. Margaux denies a history of ulcers/ peptic ulcer disease. 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 He follows with [facility]. He completed radiation in 2022. Disease is stable. He has a hx of COPD- uses duoneb daily, but no other inhalers. Is able to walk up steps AND complete activity with no issues Margaux follows with [facility]. Last OV 08/2024. He had a stress test in 2023 EF was 57% AND there was no evidence of ischemia. He CP, SOB, dizziness, palpitations, syncope, edema, recent hospitalizations Margaux has undergone prior endoscopy. Last EGD AND colonoscopy was 01/[address] Machuca at [facility]. Sedation: MAC T he entire duodenum appeared unremarkable. The antral region appeared normal. Given his previous history of Matute's esophagitis and gastritis, biopsies were taken in the antral region. The remainder of the stomach appeared unremarkable. The fundic portion had no true hiatal hernia, but seemed to have a lax lower esophageal sphincter. There was a very small hiatal hernia. The stomach was aspirated of liquid. As the scope was withdrawn, there was an irregular Z-line with a couple areas of flamed erosion. This was consistent with Matute's esophagitis. Biopsies were taken in all 4 quadrants for the short segment. As the scope was withdrawn, the remainder of the esophagus was unremarkable. COLONOSCOPY Digital rectal exam revealed no palpable abnormalities. As the scope was withdrawn, there was an area which appeared to be consistent with scarring from a previous polypectomy site and an area that did not truly look polypoid, but looked slightly erythematous compared to the other site. Narrow band imaging did not truly Demonstrate to be adenomatous, but the area of concern had 2 biopsies performed with biopsy forceps and then APC Argon beam coagulation was performed to obliterate that area. The remainder of the colon, cecum, ascending colon, hepatic flexure, transverse colon, splenic flexure all appeared unremarkable. Descending and sigmoid had few small diverticula. The scope was retroflexed in the rectum and that was normal. MICROSCOPIC DIAGNOSIS A. Gastric antrum, biopsy: Gastritis. B. GE junction, biopsy: Squamous mucosa with focal changes consistent with reflux. Junctional mucosa with chronic and mild acute inflammation. No evidence of dysplasia. C. Cecum, biopsy: Fragments of tubular adenoma. Current Outpatient Medications Medication Sig atorvastatin (LIPITOR) 80 mg tablet Take 80 mg by mouth once daily. levothyroxine (SYNTHROID) 112 mcg tablet Take 112 mcg by mouth once daily. finasteride (PROSCAR) 5 mg tablet Take 5 mg by mouth once daily. tamsulosin (FLOMAX) 0.4 mg Take 0.4 mg by mouth once daily. roflumilast (DALIRESP) 500 mcg tab Take 500 mcg by mouth once daily. albuterol (PROVENTIL) 2.5 mg/0.5 mL nebulizar solution Use 2.5 mg via nebulizer every 6 hours as needed. ipratropium-albuterol (DUONEB) 0.5 mg-3 mg(2.5 mg base)/3 mL nebu Inhale 3 mL as instructed. terazosin (HYTRIN) 1 mg capsule Take 1 mg by mouth daily at bedtime. aspirin, enteric coated (ASPIRIN, ENTERIC COATED) 81 mg EC tablet Take 81 mg by mouth once daily. Omeprazole (PRILOSEC) 40 mg capsule Take 1 capsule by mouth 1-2 times daily. peg 3350-Electrolytes (GOLYTELY) 236-22.74-6.74 -5.86 gram suspension Take 4,000 mL by mouth one time only for 1 dose. Refer to printed prep instructions from your provider. No current facility-administered medications for this visit. ALLERGIES: Patient has no allergy information on record. PAST MEDICAL HISTORY Diagnosis Date Matute's esophagus Benign neoplasm of colon Blood in stool Disease of lung nodules Diverticulosis of colon (without mention of hemorrhage) GERD (gastroesophageal reflux disease) HTN (hyper (more content not included)...[facility]06-18-2025 Radiology Diagnostic study note [facility] Imaging Services [address] [place] [address] [id number] CTA Head AND Neck W/ Contrast MR#: [id number] Acct: [id number] Name: MARGAUX SANDERSON Rep #: [id number] : 1940 M 83 From: Robert Knowles MD PCP: Dr. Alexander Steiner MD Status: APOLINAR SALVADOR Study:CTA Head AND Neck W/ Contrast Date of E xam: 09/11/24 Exam# [id number] Ordering Dr: Alexander Steiner MD PROCEDURE: CTA HEAD AND NECK W/ CONTRAST 09/11/2024 REASON FOR EXAM: OCCLUSION AND STENOSIS OF UNSPECIFIED CAROTID ARTERY TECHNIQUE: CTA HEAD AND NECK W/ CONTRAST Multiplanar Sagittal and Coronal images were obtained. CONTRAST: Isovue 370 VOLUME: 100 mL One or more dose reduction techniques were used (e.g., Automated exposure control, adjustment of the mA and/or kV according to patient size, use of iterative reconstruction technique). RADIATION DOSE SUMMARY: CTDlvol: 31 mGy DLP: 1467.27 mGycm COMPARISON: None FINDINGS: Aortic Arch: Normal size and branching pattern. Mild atherosclerotic plaque. Brachiocephalic and Subclavians: Mild atherosclerotic plaque without significantstenosis. RIGHT Carotid: Right CCA: Unremarkable. Right ICA: Moderate calcified and soft plaque. Maximum stenosis (NASCET): Greater than 70% % Right ECA: Unremarkable. LEFT Carotid: Left CCA: Mild calcified and soft plaque. Left ICA: High-grade stenosis Maximum stenosis (NASCET): Near occlusion % Left ECA: Unremarkable. Vertebrals: Nonvisualization of the right vertebral artery RIGHT Vertebral: Nonvisualization of the right vertebral artery LEFT Vertebral: Patent left vertebral artery. Anatomy: [place] anatomy is normal. Aneurysm or avm: No intracranial aneurysms or large vascular malformations are identified. Anterior cerebral arteries: Unremarkable: Middle cerebral arteries: Unremarkable. Basilar artery: Unremarkable. Posterior cerebral arteries: Unremarkable. Other major branches of the posterior circulation: Unremarkable. Major venous structures: Unremarkable. 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 Nonvisualization of the right vertebral artery. Dominant left vertebral artery. [facility] CC: Dr. 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 acute October 31, 2 025 12:40pm [facility] Work Phone: 1(678) 387-101606-05-2025 Evaluation note* Diagnosis Onset Date Resolution Status Admit Date Lightheadedness acute August 29, 2024 9:26am Mixed hyperlipidemia acute August 29, 2024 9:26am Coronary artery calcification chroni c August 29, 2024 9:26am Essential hypertension chronic Ju 2024 9:26am Carotid artery disease acute 2024 1:54pm 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 acute October 31, 025 12:40pm Anemia acute November 1:11pm Multiple polyps of sigmoid colon acute December 04, 2024 1:11pm Tubulovillous adenoma acute Nov 1:11pm [facility] Work Phone: 1(619) 471-980304-14-2025 Evaluation note* Diagnosis Onset Date Resolution Status Admit Date 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 acute July 08, 025 10:51am [facility] Work Phone: 1(765) 204-350604-14-2025 Evaluation note* Diagnosis Onset Date Resolution Status Admit Date 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 acute July 08, 025 10:51am Mixed hyperlipidemia acute August 29, 2024 9:26am Coronary artery calcification chroni c August 29, 2024 9:26am Essential hypertension chronic ne 2024 9:26am [facility] Work Phone: 1(711) 621-795104-14-2025 Evaluation note* Diagnosis Onset Date Resolution Status Admit Date 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 acute July 08, 025 10:51am Lightheadedness acute August 29, 2024 9:26am Mixed hyperlipidemia acute August 29, 2024 9:26am Coronary artery calcification chroni c August 29, 2024 9:26am Essential hypertension chronic Ju ne 2024 9:26am [facility] Work Phone: 1(562) 247-401004-14-2025 Evaluation note* Diagnosis Onset Date Resolution Status Admit Date 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 acute July 08, 2 025 10:51am Lightheadedness acute August 29, 2024 9:26am Mixed hyperlipidemia acute August 29, 2024 9:26am Coronary artery calcification chroni c August 29, 2024 9:26am Essential hypertension chronic Ju ne 2024 9:26am Carotid artery disease acute Ju ly 2024 1:54pm [facility] Work Phone: 1(379) 438-274504-14-2025 Evaluation note* Diagnosis Onset Date Resolution Status Admit Date 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 acute July 08, 2 025 10:51am Lightheadedness acute August 29, 2024 9:26am Mixed hyperlipidemia acute August 29, 2024 9:26am Coronary artery calcification chroni c August 29, 2024 9:26am Essential hypertension chronic Ju ne 2024 9:26am Carotid artery disease acute Ju ly 2024 1:54pm 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 Alexander Steiner MD Status: APOLINAR SALVADOR Study:Chest WITH Contrast Date of Exam: 06/27/24 Exam# [id number] Ordering Dr: Alejandro Machado DO PROCEDURE: CHEST [...] of the right upper lobe. Reading Location: [place] [address] CC: Dr. Alejandro Machado DO; Dr. Alexander Steiner MD ~ Bridge Repairer: Signed [facility]03-04-2025 Radiology Diagnostic study note [facility] Imaging Services [address] [place], [place] [id number] Chest PA and Lateral MR#: [id number] Acct: [id number] Name: MARGAUX SANDERSON Rep #: [id number] : 1940 M 83 From: Taamr Neal MD PCP: Dr. Alexander Steiner MD Status: APOLINAR SALVADOR Study:Chest PA and Lateral Date of Exam: 05/28/24 Exam# [id number] Ordering Dr: Alexander Steiner MD EXAM: XR Chest, 2 Views CLINICAL INDICATION: TECHNIQUE: Frontal and lateral views of the chest. COMPARISON: No relevant prior studies available. FINDINGS: LUNGS AND PLEURAL SPACES: Unremarkable. No consolidation. No pneumothorax. HEART: Unremarkable. No cardiomegaly. MEDIASTINUM: Unremarkable. Normal mediastinal contour. BONES/JOINTS: Unremarkable. No acute fracture. RAD/Chest PA and Lateral IMPRESSION: No acute cardiopulmonary process. Reading Location: [facility] CC: Dr. 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 Patient taken by wheelchair by Oju, HEARING AID MECHANIC to awaiting car. All belongings gathered with patient. Family/friend to drive patient home and care for patient 6 hours post-procedure. * Felicitas Ritter RN - 12/02/2022 10:23 AM EDT CXR clear per Dr. Leroy. * France Roy RN - 12/02/2022 7:30 AM EDT Pt denies history chemo/radiation, seizure,stroke, or metal/implants. documented in this [facility] Nurse Surgical operation note* Jessie Shah RN - 12/02/2022 10:55 AM EDT Patient meets Interventional Radiology sedation discharge criteria and discharged per MD order to home. Patient taken by wheelchair by Oju, HEARING AID MECHANIC to awaiting car. All belongings gathered with patient. Family/friend to drive patient home and care for patient 6 hours post-procedure. [facility]09-08-2023 Nurse Surgical operation note* Felicitas Ritter RN - 12/02/2022 10:23 AM EDT CXR clear per Dr. Leroy. [facility] Nurse Note* Nursing Notes - Kleber Callahan RN - 12/02/2022 8:16 AM EDT Procedure completed with IR Attending MD Goodrich of CT guided R Lung biopsy. Samples obtained intra-procedure and sent to lab for analysis. Post procedure patient to travel to [facility] for post procedure monitoring. See post procedure orders for nursing care. [facility] Miscellaneous Notes* Nursing Notes - Kleber Callahan RN - 12/02/2022 8:16 AM EDT Procedure completed with IR Attending MD Goodrich of CT guided R Lung biopsy. Samples obtained intra-procedure and sent to lab for analysis. Post procedure patient to travel to [facility] for post procedure monitoring. See post procedure orders for nursing care. * Nursing Notes - France Roy RN - 12/02/2022 7:30 AM EDT 0829: Patient arrives in [facility] Phase 2 Interventional Radiology from Interventional Radiology Procedure Suite with side rails up x2 with HOB >30 degrees, accompanied by IR Nurse. Patient placed onmonitors, VSS. Patient assessed, see assessment. documented in this encounterOSSt. [facility]09-[facility]-2023 History and physical note* JENNIFER Chavez [...] of breathing Neurological: No focal deficits Skin: [place], warm and dry Laboratory Data Results for [...] for procedure. JENNIFER De 12/02/2022 6:44 AM [facility] Work Phone: 1(118) 747-807209-08-2023 History and physical note* JENNIFER Chavez - [...] of breathing Neurological: No focal deficits Skin: [place], warm and dry Laboratory Data Results for [...] 12/02/2022 6:44 AM [facility] Nurse Note* Nursing Notes - France Roy RN - 12/02/2022 7:30 AM EDT 0829: Patient arrives in [facility] Phase 2 Interventional Radiology from Interventional Radiology Procedure Suite with side rails up x2 with HOB >30 degrees, accompanied by IR Nurse. Patient placed onmonitors, VSS. Patient assessed, see assessment. [facility]09-08-2023 Nurse Surgical operation note* France Roy RN - 12/02/2022 7:30 AM EDT Pt denies history chemo/radiation, seizure,stroke, or metal/implants. [facility]09-08-2023 Procedure note* Reji Goodrich MD - 12/02/2022 7:30 AM EDTAssociated Order(s): GENERAL PROCEDURE BODY INTERVENTIONAL RADIOLOGY PROCEDURE NOTE PROCEDURE INDICATION: Right upper lobe enlarging lung nodule PROCEDURE PERFORMED: CT-guided lung biopsy FINDINGS/TARGET: Right upper raj lung nodule. Total of 6 passes taken. No pneumothorax on post imaging. Reji Goodrich MD 12/02/2022 9:11 AM BAR STEWARD(S): Reji Goodrich MD. CONSENT: Informed consent was obtained prior to the procedure after discussion of the risks, benefits, and alternatives of the procedure, and expected procedure outcomes were discussed with the patient and/orrepresentative. The consent document was placed in chart. DID THIS PROCEDURE REQUIRE A UNIVERSAL PROTOCOL?: Yes. [place] Protocol is required. Preprocedure verification is complete. [...] Interventional Radiology to participate in thispatient's care. [facility] Work Phone: 1(470) 273-422109-08-2023 Procedure note* Reji Goodrich MD - 12/02/2022 7:30 AM EDTAssociated Order(s): GENERAL PROCEDURE BODY INTERVENTIONAL RADIOLOGY PROCEDURE NOTE PROCEDURE INDICATION: Right upper lobe enlarging lung nodule PROCEDURE PERFORMED: CT-guided lung biopsy FINDINGS/TARGET: Right upper raj lung nodule. Total of 6 passes taken. No pneumothorax on post imaging. Reji Goodrich MD 12/02/2022 9:11 AM BAR STEWARD(S): Reji Goodrich MD. CONSENT: Informed consent was obtained prior to the procedure after discussion of the risks, benefits, and alternatives of the procedure, and expected procedure outcomes were discussed with the patient and/orrepresentative. The consent document was placed in chart. DID THIS PROCEDURE REQUIRE A UNIVERSAL PROTOCOL?: Yes. [place] Protocol is required. Preprocedure verification is complete. [...] participate in thispatient's care. documented in this [facility]09-08-2023 Hospital Discharge instructions* Discharge Instructions* Leonila Murray APRN-CARTON FOLDER - 12/02/2022 6:47 AM EDT Home Care [...] or on Weekends, please call the Hospital Information Security at [phone] and ask them for the Interventional Lithographers Printer On-Call documented in this [facility] History of Present illness Narrative* JENNIFER Eugene - 11/04/2022 11:00 AM EDT PROGRESS NOTE Chief Complaint Patient presents with Follow-up Margaux Sanderson is a 82 y.o. male former smoker who is being followed for right upper lobe nodule. This was first found in 2011 and was noted to be 5.9 mm. He followed in surveillance with his local kitchen runner Dr. Jimenez and was referred to our [...] He followed in surveillance with his local kitchen runner Dr. Jimenez and was referred to our [...] Eugene. JENNIFER Eugene #[id number] documented in this encounterPark[facility] History of Present illness Narrative* JENNIFER Eugene - 11/10/2021 11:45 AM EDT PROGRESS NOTE Chief Complaint Patient presents with Follow-up CT complete. Margaux Sanderson is a 81 y.o. male former smoker who is being followed for right upper lobe nodule. This was first found in 2011 and was noted to be 5.9 mm. He followed in surveillance with his local kitchen runner Dr. Jimenez and was referred to our [...] He followed in surveillance with his local kitchen runner Dr. Jimenez and was referred to our [...] (SUVmax 8.8). The patient was evaluated at [facility] and surgery was recommended for the right [...] (SUVmax 8.8). The patient was evaluated at [facility] and surgery was recommended for the right [...] surveillance. Micah Trinh MD [facility] History of Present illness Narrative* Micah Trinh [...] (SUVmax 8.8). The patient was evaluated at [facility] and surgery was recommended for the right [...] (SUVmax 8.8). The patient was evaluated at [facility] and surgery was recommended for the right [...] the past 3 years with his local kitchen runner, Dr. Micah Jimenez (Pablo). A CT chest on 05/08/20 showed a [...] 1.5 weeks ago from a surgeon in [place], [place] and also recently started taking amlodipine. [...] wall lesions are identified. Additional Findings: None. 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 Micah Jimenez ([place]). A CT chest on 05/08/20 showed a [...] plan. Chantel Ospina PA-C documented in this encounterPark[facility] NoteHNO ID: [id number] Author: Jose Daniel Danielle (Tech) Service: Nuclear Medicine Author Type: Furniture Sales Associate Type: Progress Notes Filed: 07/14/2020 7:00 AM [...] FDG. No other medications given.. ADMINISTRATION TIME: 652 PATIENT DISCHARGED TO: Ambulatory patient, left [place] department area. A Diagnostic radioactive procedure has taken place, with no further precautions necessary other than routine body substance precautions. More information regarding radiation safety can be found using this link: [email or web address] SIGNATURE: Sally Banks PATIENT NAME: Margaux Sanderson DATE: July 14, 2020 TIME: 6:59 AM PAGER/CONTACT #:[facility] note* Diagnosis Solitary lung nodule Solitary pulmonary nodule [facility] Diagnosis Solitary lung nodule- Primary Solitary pulmonary nodule [facility] Diagnosis Onset Date Resolution Status Bradycardia acute Mixed hyperlipidemia acute Coronary artery calcification chronic Essential hypertension chron ic [facility] Work Phone: Evaluation noteNo assessment information available [facility] Work Phone: Evaluation note* Diagnosis Lung nodule Solitary pulmonary nodule Former smoker Personal history of tobacco use, presenting hazards to health [facility] Diagnosis Lung nodule- Primary Solitary pulmonary nodule [facility] Diagnosis Onset Date Resolution Status Bradycardia acute Mixed hyperlipidemia acute Coronary artery calcification chronic Essential hypertension chron ic Osteoporosis acute Postoperative primary hypothyroidism acute Vitamin D deficiency [facility] Work Phone: Evaluation note* Diagnosis Onset Date Resolution Status Osteoporosis acute Postoperative primary hypothyroidism acute Vitamin D deficiency acute [facility] Work Phone: Evaluation note* Diagnosis Lung nodule- Primary Solitary pulmonary nodule [facility] Diagnosis Nodule of upper lobe of right lung [facility] Diagnosis Onset Date Resolution Status Primary adenocarcinoma of upper lobe of right lung acute Primary adenocarcinoma of upper lobe of right lung acute Primary adenocarcinoma of upper lobe of right lung acute [facility] Work Phone: Evaluation note* Diagnosis Onset Date Resolution Status Primary adenocarcinoma of upper lobe of right lung acute Primary adenocarcinoma of upper lobe of right lung acute [facility] Work Phone: Evaluation note* Diagnosis Unintentional weight loss- Primary Loss of weight Fecal occult blood test positive Nonspecific abnormal finding in stool contents History of Matute's esophagus Family history of colon cancer Family history of malignant neoplasm of gastrointestinal tract [facility] 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 Unintentional weight loss Loss of weight Family history of colon cancer Family history of malignant neoplasm of gastrointestinal tract [facility] 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- Primary Matute's esophagus Unintentional weight loss Loss of weight Fecal occult blood test positive Nonspecific abnormal finding in stool contents Family history of colon cancer Family history of malignant neoplasm of gastrointestinal tract History of Matute's esophagus [facility] 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 Unintentional weight loss Family history of colon cancer Procedures XR ABDOMEN 1V SUPINE RADIOLOGIC EXAM ABDOMEN 1 VIEW Saurav Machuca MD [address] [place] [address] Phone: tel: fax: [place] [address] Referral ID Status Reason Start Date Expiration Date V isits Requested Visits Authorized [id number] Closed Auto-Generate d Referral 11/15/2024 12/15/2025 1 1 [facility] N[facility]* Outpatient Procedure (Routine) - Closed Specialty Diagnoses / Procedures Referred By Bonnie chowdary Referred To Contact [facility] Diagnoses Unintentional weight loss Fecal occult blood test positive History of Matute's esophagus Procedures EGD DIAGNOSTIC ESOPHAGOGASTRODUODENOSC OPY TRANSORAL DIAGNOSTIC Valerie Gaitan APRN.CARTON FOLDER [address] [place] [address] Phone: tel: fax: Saurav Machuca MD [address] [place] [address] Phone: tel: fax: Referral ID Status Reason Start Date Expiration Date V isits Requested Visits Authorized [id number] Closed Auto-Generate d Referral 11/15/2024 01/15/2025 1 1 [facility] Summary Purpose Family History No Family History [...] No October 20, 2020 10:04am Power of Cigarette Making Examiner No October 20 10:04am Latest Code Status on File Code Status Date Activated Date Inactivated Comments Full Code 12/02/2022 7:44 AM Latest Code Status on File Code Status Date Activated Date Inactivated Comments Full Code 12/02/2022 7:44 AM Advance Directive Response Recorded Date/ Time Advance Directives No February 01, 2016 11:13am Living Will No October 20, 2020 9:04am Power of Cigarette Making Examiner No October 20 9:04am Advance Directive Response Recorded Date/ Time Living Will No October 20, 2020 10:04am Power of Cigarette Making Examiner No October 20 10:04am Advance Directives No February 01, 2016 12:13pm Advance Directive Response Recorded Date/ Time Advance Directives No February 01, 2016 12:13pm Advance Directive Response Recorded Date/ Time Advance Directives No November 10:30am Advance Directive Response Recorded Date/ Time Advance Directives No November 10:30am Do you have a Healthcare Power of Cigarette Making Examiner? Yes December 06, 2024 9:19am Reason for Referral Specialty Diagnoses / Procedures Referred By Contac t Referred To Contact Diagnoses Solitary lung nodule Procedures CT CHEST WITH CONTRAST CHG DIAGNOSTIC COMPUTED TOMOGRAPHY THORAX W/CONTRAST Ingrid Lebron PA-C [address] [place] [address] Referral ID Status Reason Start Date Expiration Date Visits Re quested Visits Authorized [id number] Closed 09/09/2020 10/04/2021 1 1 Specialty Diagnoses / Procedures Referred By Contac t Referred To Contact Diagnoses Solitary lung nodule Procedures CT CHEST WITHOUT CONTRAST CHG DIAGNOSTIC COMPUTED TOMOGRAPHY THORAX W/O BEVERLYRSChantel Stoddard PA-C [address] [place] [address] Referral ID Status Reason Start Date Expiration Date V isits Requested Visits Authorized [id number] New Request 11/11/2020 12/06/2021 1 1 Specialty Diagnoses / Procedures Referred By Contac t Referred To Contact Diagnoses Lung nodule Former smoker Procedures CT CHEST WITHOUT CONTRAST CHG DIAGNOSTIC COMPUTED TOMOGRAPHY THORAX W/O CNTRST Delia Mccauley, MANUELA-SHINE [address] [place] [address] Referral ID Status Reason Start Date Expiration Date Visits Re quested Visits Authorized [id number] Closed 05/12/2021 06/06/2022 1 1 Specialty Diagnoses / Procedures Referred By Contac t Referred To Contact Diagnoses Lung nodule Procedures CT CHEST WITHOUT CONTRAST CHG DIAGNOSTIC COMPUTED TOMOGRAPHY THORAX W/O CNTRST Dean Bedoya, PIPE ROLLER-CARTON FOLDER [address] [place] [address] Referral ID Status Reason Start Date Expiration Date V isits Requested Visits Authorized [id number] New Request 11/10/2021 12/05/2022 1 1 Specialty Diagnoses / Procedures Referred By Contac t Referred To Contact Diagnoses Nodule of upper lobe of right lung Procedures CT LUNG/MEDIASTINUM BIOPSY WA CORE NEEDLE BX LUNG/MEDIASTINUM PERQ W/IMG WA CT GUIDANCE NEEDLE PLACEMENT Eyal Dean M, PIPE ROLLER-CARTON FOLDER [address] [place] [address] Referral ID Status Reason Start Date Expiration Date V isits Requested Visits Authorized [id number] New Request 11/11/2022 12/06/2023 1 1 Chief [...] Essential hypertension August 29, 2024 9: 26am Chief Complaint Admit Date Malignant neoplasm of upper lobe, right bronchus o June 27, 2024 12:47pm 4 MONTH LUNG, REVIEW CT July 08, 2024 10:51am NEAR SYNCOPE August 22, 2024 8:50a m NEAR SYNCOPE August 22, 2024 9:17a m NEAR SYNCOPE August 22, 2024 9:28a m OVERDUE FU August 29, 2024 9:26a m CAROTID ARTERY STENOSIS September 11, 2024 6:25am Reason for Visit Admit Date Primary adenocarcinoma of upper lobe of right lung July 08, 2024 10:51am Lightheadedness August 29, 2024 9:26a m Mixed hyperlipidemia August 29, 2024 9:26 am Coronary artery calcification August 29, 2024 9:26am Essential hypertension August 29, 2024 9: 26am Chief Complaint Admit Date Malignant neoplasm of upper lobe, right bronchus o June 27, 2024 12:47pm 4 MONTH LUNG, REVIEW CT July 08, 2024 10:51am NEAR SYNCOPE August 22, 2024 8:50a m NEAR SYNCOPE August 22, 2024 9:17a m NEAR SYNCOPE August 22, 2024 9:28a m OVERDUE FU August 29, 2024 9:26a m CAROTID ARTERY STENOSIS September 11, 2024 6:25am NEAR SYNCOPE September 19, 2024 12:0 8pm Chief Complaint Admit Date Malignant neoplasm of upper lobe, right bronchus o June 27, 2024 12:47pm 4 MONTH LUNG, REVIEW CT July 08, 2024 10:51am NEAR SYNCOPE August 22, 2024 8:50a m NEAR SYNCOPE August 22, 2024 9:17a m NEAR SYNCOPE August 22, 2024 9:28a m OVERDUE FU August 29, 2024 9:26a m CAROTID ARTERY STENOSIS September 11, 2024 6:25am NEAR SYNCOPE September 19, 2024 12:0 8pm Carotid Artery occlusion and stenosis Ju 2024 1:54pm Reason for Visit Admit Date Primary adenocarcinoma of upper lobe of right lung July 08, 2024 10:51am Lightheadedness August 29, 2024 9:26a m Mixed hyperlipidemia August 29, 2024 9:26 am Coronary artery calcification August 29, 2024 9:26am Essential hypertension August 29, 2024 9: 26am Carotid artery disease 2024 1: 54pm Chief Complaint Admit Date Malignant neoplasm of upper lobe, right bronchus o June 27, 2024 12:47pm 4 MONTH LUNG, REVIEW CT July 08, 2024 10:51am NEAR SYNCOPE August 22, 2024 8:50a m NEAR SYNCOPE August 22, 2024 9:17a m NEAR SYNCOPE May 29th, 2025 9:28a m OVERDUE FU August 29, 2024 9:26a m CAROTID ARTERY STENOSIS September 11, 2024 6:25am NEAR SYNCOPE September 19, 2024 12:0 8pm Carotid Artery occlusion and stenosis Ju ly 2024 1:54pm WEIGHT LOSS October 02, 2024 1:24p m Chief Complaint Admit Date Malignant neoplasm of upper lobe, right bronchus o June 27, 2024 12:47pm 4 MONTH LUNG, REVIEW CT July 08, 2024 10:51am NEAR SYNCOPE August 22, 2024 8:50a m NEAR SYNCOPE August 22, 2024 9:17a m NEAR SYNCOPE August 22, 2024 9:28a m OVERDUE FU August 29, 2024 9:26a m CAROTID ARTERY STENOSIS September 11, 2024 6:25am NEAR SYNCOPE September 19, 2024 12:0 8pm Carotid Artery occlusion and stenosis Ju ly 2024 1:54pm WEIGHT LOSS October 02, 2024 1:24p m Reclast October 21, 2024 9:48 am Chief Complaint Admit Date 4 MONTH LUNG, REVIEW CT July 08, 2024 10:51am NEAR SYNCOPE August 22, 2024 8:50a m NEAR SYNCOPE August 22, 2024 9:17a m NEAR SYNCOPE August 22, 2024 9:28a m OVERDUE FU August 29, 2024 9:26a m CAROTID ARTERY STENOSIS September 11, 2024 6:25am NEAR SYNCOPE September 19, 2024 12:0 8pm Carotid Artery occlusion and stenosis Ju ly 2024 1:54pm WEIGHT LOSS October 02, 2024 1:24p m Reclast October 21, 2024 9:48 am Malignant neoplasm of upper lobe, right bronchus o October 29, 2024 1:20pm 4 MONTH LUNG, REVIEW CT October 31, 2024 12:40pm Reason for Visit Admit Date Primary adenocarcinoma of upper lobe of right lung July 08, 2024 10:51am Lightheadedness August 29, 2024 9:26a m Mixed hyperlipidemia August 29, 2024 9:26 am Coronary artery calcification August 29, 2024 9:26am Essential hypertension August 29, 2024 9: 26am Carotid artery disease 2024 1: 54pm Primary adenocarcinoma of upper lobe of right lung [place] 7th, 2025 12:40pm Chief Complaint Admit Date NEAR SYNCOPE August 22, 2024 8:50a m NEAR SYNCOPE August 22, 2024 9:17a m NEAR SYNCOPE August 22, 2024 9:28a m OVERDUE FU August 29, 2024 9:26a m CAROTID ARTERY STENOSIS September 11, 2024 6:25am NEAR SYNCOPE September 19, 2024 12:0 8pm Carotid Artery occlusion and stenosis Ju ly 2024 1:54pm WEIGHT LOSS October 02, 2024 1:24p m Reclast October 21, 2024 9:48 am Malignant neoplasm of upper lobe, right bronchus o October 29, 2024 1:20pm 4 MONTH LUNG, REVIEW CT October 31, 2024 12:40pm 2 UNITS PRBC December 02, 2024 8:55am Reason for Visit Admit Date Lightheadedness August 29, 2024 9:26a m Mixed hyperlipidemia August 29, 2024 9:26 am Coronary artery calcification August 29, 2024 9:26am Essential hypertension August 29, 2024 9: 26am Carotid artery disease 2024 1: 54pm Primary adenocarcinoma of upper lobe of right lung October 31, 2024 12:40pm Chief Complaint Admit Date NEAR SYNCOPE August 22, 2024 8:50a m NEAR SYNCOPE August 22, 2024 9:17a m NEAR SYNCOPE August 22, 2024 9:28a m OVERDUE FU August 29, 2024 9:26a m CAROTID ARTERY STENOSIS September 11, 2024 6:25am NEAR SYNCOPE September 19, 2024 12:0 8pm Carotid Artery occlusion and stenosis Ju ly 2024 1:54pm WEIGHT LOSS October 02, 2024 1:24p m Reclast October 21, 2024 9:48 am Malignant neoplasm of upper lobe, right bronchus o October 29, 2024 1:20pm 4 MONTH LUNG, REVIEW CT October 31, 2024 12:40pm 2 UNITS PRBC December 02, 2024 8:55am 2ND OPINION December 04, 2024 1:11pm Reason for Visit Admit Date Lightheadedness August 29, 2024 9:26a m Mixed hyperlipidemia August 29, 2024 9:26 am Coronary artery calcification August 29, 2024 9:26am Essential hypertension August 29, 2024 9: 26am Carotid artery disease [place] 1st, 2025 1: 54pm Primary adenocarcinoma of upper lobe of right lung October 31, 2024 12:40pm Anemia December 04, 2024 1:11pm Multiple polyps of sigmoid colon Septemb 2024 1:11pm Tubulovillous adenoma December 04 1:11pm Additional Source Comments (unrecognized sect ion and content) No Status Records FoundNo Status Records FoundNo Status Records FoundNo Status Records Found INFORMATION SOURCE (unrecogn ized section and content) DATE CREATED AUTHOR 09/04/2020 [facility] DATE CREATED AUTHOR AUTHOR'S ORGANIZ ATION 11/16/2022 [facility] DATE CREATED AUTHOR AUTHOR'S ORGANIZ ATION 12/05/2024 [facility] DATE CREATED AUTHOR AUTHOR'S ORGANIZ ATION 12/18/2024 [facility] Reason for Visit (unrecogniz ed section and content) Specialty Diagnoses / Procedures Referred By Bonnie chowdary Referred To Contact Diagnoses Solitary lung nodule Procedures CT CHEST WITH CONTRAST CHG DIAGNOSTIC COMPUTED TOMOGRAPHY THORAX W/CONTRAST Ingrid Lebron PA-C [address] [place] [address] Referral ID Status Reason Start Date Expiration Date Visits Re quested Visits Authorized [id number] Closed 09/09/2020 10/04/2021 1 1 Reason Comments [...] COMPUTED TOMOGRAPHY THORAX W/O CNTRST Delia Mccauley, PIPE ROLLER-SHINE [address] [place] [address] Referral ID Status Reason Start Date Expiration Date Visits Re quested Visits Authorized [id number] Closed 05/12/2021 06/06/2022 1 1 Reason Comments Follow-up CT complete. Reason Comments Follow-up Specialty Diagnoses / Procedures Referred By Bonnie t Referred To Contact Diagnoses Nodule of upper lobe of right lung Procedures CT LUNG/MEDIASTINUM BIOPSY WA CORE NEEDLE BX LUNG/MEDIASTINUM PERQ W/IMG WA CT GUIDANCE NEEDLE PLACEMENT Dean Bedoya, PIPE ROLLER-CARTON FOLDER [address] [place] [address] Referral ID Status Reason Start Date Expiration Date V isits Requested Visits Authorized [id number] New Request 11/11/2022 12/06/2023 1 1 Reason Comments Consult EGD & Colonoscopy Reason Comments Orders Reason Comments Follow Up Reason Comments Patient Question Care Teams (unrecognized sec tion and content) [employer] Open Stack Administrator Relationship Specialty Start Date End Date Denzel Steiner MD [address] [place], [place] [phone] PCP - General Internal Medicine 09/09/20 Micah Forrest MD [address] [facility] [address] [place], [place] [phone] Field Associate Pulmonary Disease 11/11/20 [employer] Administrator Relationship Specialty Start Date End Date Denzel Setiner MD [address] [place], [place] [phone] PCP - General Internal Medicine 09/09/20 Micah Forrest MD [address] [facility] [address] [place], [place] [id number] Field Associate Pulmonary Disease 11/11/20 [employer] Open Stack Administrator Relationship Specialty Start Date End Date Denzel Steiner MD [address] [place], [place] [phone] PCP - General Internal Medicine 09/09/20 Micah Forrest MD [address] [facility] [address] [place], [place] [phone] Field Associate Pulmonary Disease 11/11/20 [employer] Open Stack Administrator Relationship Specialty Start Date End Date Denzel Steiner MD [address] [place], [place] [phone] PCP - General Internal Medicine 09/09/20 Micah Forrest MD [address] [place] [address] [address] [place] [address] Field Associate Pulmonary Disease 11/11/20 Team Status: Active Member [...] MD Primary Care Provider, Attending Provider Active [employer] Open [employer] Administrator Relationship Specialty Start Date End Date Denzel Stiener MD [address] [place] [address] [address] [place], [place] [phone] PCP - General Internal Medicine 09/09/20 Micah Forrest MD [address] [place] [address] [address] [place], [place] [phone] Field Associate Pulmonary Disease 11/11/20 [employer] Open [employer] Administrator Relationship Specialty Start Date End Date Denzel Steiner MD [address] [place] [address] [address] [place], [place] [phone] PCP - General Internal Medicine 09/09/20 Micah Forrest MD [address] [place] [address] [address] [place] [address] Field Associate Pulmonary Disease 11/11/20 [employer] Open [employer] Administrator Relationship Specialty Start Date End Date Denzel Steiner MD [address] [place] [address] [address] [place], [place] [phone] PCP - General Internal Medicine 09/09/20 Micah Forrest MD [address] [place] [address] [address] [place] [address] Field Associate Pulmonary Disease 11/11/20 Team Status: Inactive Member [...] Status: Inactive Member Role Status Dates Dr. Alejadnro Machado DO Attending Provider Active Start: February [...] June 27, 2024 Dr. Alejandro Machado DO Attending Provider Active Start: June [...] 2024 End: August 29, 2024 Laura Condon AIRCRAFT ELECTRICIAN, AIRCRAFT ELECTRICIAN-C Attending Provider Active Start: August 29, 2024 End: August 29, 2024 Team Status: Active Member Role Status Dates Dr. Deni Jackson MD Attending Provider Active Start: August 22, 2024 Dr. Alexander Steiner MD Referring Provider Active Start: August 22, 2024 Team Status: Inactive Member Role Status Dates Dr. Alexander Steiner MD Primary Care Provider Active Start: September 11, 2024 End: September 11, 2024 Dr. Alexander Steiner MD Attending Provider Active Start: September 11, 2024 End: September 11, 2024 Dr. Alexander Steiner MD Referring Provider Active Start: September 11, 2024 End: September 11, 2024 Team Status: Active Member Role Status Dates Dr. Alexander Steiner MD Primary Care Provider Active Start: September 16, 2024 Dr. Alexander Steiner MD Attending Provider Active Start: September 16, 2024 Dr. Alexander Steiner MD Referring Provider Active Start: September 16, 2024 Team Status: Active Member Role/Relationship Status Dates Dr. Alexander Steiner MD Primary Care Provider Active Team Status: Inactive Member Role/Relationship Status Dates Dr. Alexander Steiner MD Primary Care Provider Active Start: May 28, 2024 End: May 28, 2024 Dr. Alexander Steiner MD Attending Provider Active Start: May 28, 2024 End: May 28, 2024 Dr. Alexander Steiner MD Referring Provider Active Start: May 28, 2024 End: May 28, 2024 Team Status: Inactive Member Role/Relationship Status Dates Dr. Alexander Steiner MD Primary Care Provider Active Start: June 27, 2024 End: June 27, 2024 Dr. Alejandro Machado DO Attending Provider Active Start: June 27, 2024 End: June 27, 2024 Dr. Alejandro Machado DO Referring Provider Active Start: June 27, 2024 End: June 27, 2024 Team Status: Inactive Member Role/Relationship Status Dates Dr. Alexander Steiner MD Primary Care Provider Active Start: July 08, 2024 End: July 08, 2024 Dr. Alexander Steiner MD Referring Provider Active Start: July 08, 2024 End: July 08, 2024 Dr. Alejandro Machado DO Attending Provider Active Start: July 08, 2024 End: July 08, 2024 Team Status: Inactive Member Role/Relationship Status Dates Dr. Alexander Steiner MD Primary Care Provider Active Start: August 12, 2024 End: August 12, 2024 Dr. Aleaxnder Steiner MD Attending Provider Active Start: August 12, 2024 End: August 12, 2024 Dr. Alexander Steiner MD Referring Provider Active Start: August 12, 2024 End: August 12, 2024 Team Status: Inactive Member Role/Relationship Status Dates Dr. Alexander Steiner MD Primary Care Provider Active Start: August 22, 2024 End: August 22, 2024 Dr. Alexander Steiner MD Attending Provider Active Start: August 22, 2024 End: August 22, 2024 Dr. Alexander Steiner MD Referring Provider Active Start: August 22, 2024 End: August 22, 2024 Team Status: Active Member Role/Relationship Status Dates Dr. Alexander Steiner MD Primary Care Provider Active Start: August 22, 2024 End: August 22, 2024 Dr. Alexander Steiner MD Referring Provider Active Start: August 22, 2024 End: August 22, 2024 Dr. Sánchez Pena MD Attending Provider Active Start: August 22, 2024 End: August 22, 2024 Team Status: Active Member Role/Relationship Status Dates Dr. Deni Jackson MD Attending Provider Active Start: August 22, 2024 Dr. Alexander Steiner MD Referring Provider Active Start: August 22, 2024 Team Status: Inactive Member Role/Relationship Status Dates Dr. Alexander Steiner MD Primary Care Provider Active Start: August 29, 2024 End: August 29, 2024 Dr. Alexander Steiner MD Referring Provider Active Start: August 29, 2024 End: August 29, 2024 Laura Condon [employer]LECT[employer]ICIAN, [employer]CRA[employer] ELECTRICIAN-C Attending Provider Active Start: August 29, 2024 End: August 29, 2024 Team Status: Inactive Member Role/Relationship Status Dates Dr. Alexander Steiner MD Primary Care Provider Active Start: September 11, 2024 End: September 11, 2024 Dr. Alexander Steiner MD Attending Provider Active Start: September 11, 2024 End: September 11, 2024 Dr. Alexander Steiner MD Referring Provider Active Start: September 11, 2024 End: September 11, 2024 Team Status: Inactive Member Role/Relationship Status Dates Dr. Alexander Steiner MD Primary Care Provider Active Start: September 16, 2024 End: September 16, 2024 Dr. Alexander Steiner MD Attending Provider Active Start: September 16, 2024 End: September 16, 2024 Dr. Alexander Steiner MD Referring Provider Active Start: September 16, 2024 End: September 16, 2024 Team Status: Active Member Role/Relationship Status Dates Dr. Alexander Steiner MD Primary Care Provider Active Start: September 19, 2024 Dr. Alexander Steiner MD Attending Provider Active Start: September 19, 2024 Dr. Alexander Steiner MD Referring Provider Active Start: September 19, 2024 Team Status: Active Member Role/Relationship Status Dates Dr. Alexander Steiner MD Primary Care Provider Active Start: September 19, 2024 Dr. Rita Alba MD Attending Provider Active Start: September 19, 2024 Team Status: Active Member Role/Relationship Status Dates Dr. Alexander Steiner MD Primary Care Provider Active Start: September 20, 2024 Dr. Alexander Steiner MD Attending Provider Active Start: September 20, 2024 Dr. Alexander Steiner MD Referring Provider Active Start: September 20, 2024 Team Status: Inactive Member Role/Relationship Status Dates Dr. Alexander Steiner MD Primary Care Provider Active Start: 2024 End: 2024 Dr. Alexander Steiner MD Referring Provider Active Start: 2024 End: 2024 CHRISTY Rios Attending Provider Active Star t: 2024 End: 2024 Team Status: Inactive Member Role/Relationship Status Dates Dr. Alexander Steiner MD Primary Care Provider Active Start: June 27, 2024 End: June 27, 2024 Dr. Alejandro Machado DO Attending Provider Active Start: June 27, 2024 End: June 27, 2024 Dr. Alejandro Machado DO Referring Provider Active Start: June 27, 2024 End: June 27, 2024 Team Status: Inactive Member Role/Relationship Status Dates Dr. Alexander Steiner MD Primary Care Provider Active Start: July 08, 2024 End: July 08, 2024 Dr. Alexander Steiner MD Referring Provider Active Start: July 08, 2024 End: July 08, 2024 Dr. Alejandro Machado DO Attending Provider Active Start: July 08, 2024 End: July 08, 2024 Team Status: Inactive Member Role/Relationship Status Dates Dr. Alexander Steiner MD Primary Care Provider Active Start: August 12, 2024 End: August 12, 2024 Dr. Alexander Steiner MD Attending Provider Active Start: August 12, 2024 End: August 12, 2024 Dr. Alexander Steiner MD Referring Provider Active Start: August 12, 2024 End: August 12, 2024 Team Status: Inactive Member Role/Relationship Status Dates Dr. Alexander Steiner MD Primary Care Provider Active Start: August 22, 2024 End: August 22, 2024 Dr. Alexander Steiner MD Attending Provider Active Start: August 22, 2024 End: August 22, 2024 Dr. Alexander Steiner MD Referring Provider Active Start: August 22, 2024 End: August 22, 2024 Team Status: Active Member Role/Relationship Status Dates Dr. Alexander Steiner MD Primary Care Provider Active Start: August 22, 2024 End: August 22, 2024 Dr. Alexander Steiner MD Referring Provider Active Start: August 22, 2024 End: August 22, 2024 Dr. Sánchez Pena MD Attending Provider Active Start: August 22, 2024 End: August 22, 2024 Team Status: Active Member Role/Relationship Status Dates Dr. Deni Jackson MD Attending Provider Active Start: August 22, 2024 Dr. Alexander Steiner MD Referring Provider Active Start: August 22, 2024 Team Status: Inactive Member Role/Relationship Status Dates Dr. Alexander Steiner MD Primary Care Provider Active Start: August 29, 2024 End: August 29, 2024 Dr. Alexander Steiner MD Referring Provider Active Start: August 29, 2024 End: August 29, 2024 Laura Condon [employer]CRA[employer] ELECTRICIAN, [employer]CRA[employer] ELECTRICIAN-C Attending Provider Active Start: August 29, 2024 End: August 29, 2024 Team Status: Inactive Member Role/Relationship Status Dates Dr. Alexander Steiner MD Primary Care Provider Active Start: September 11, 2024 End: September 11, 2024 Dr. Alexander Steiner MD Attending Provider Active Start: September 11, 2024 End: September 11, 2024 Dr. Alexander Steiner MD Referring Provider Active Start: September 11, 2024 End: September 11, 2024 Team Status: Inactive Member Role/Relationship Status Dates Dr. Alexander Steiner MD Primary Care Provider Active Start: September 16, 2024 End: September 16, 2024 Dr. Alexander Steiner MD Attending Provider Active Start: September 16, 2024 End: September 16, 2024 Dr. Alexander Steiner MD Referring Provider Active Start: September 16, 2024 End: September 16, 2024 Team Status: Active Member Role/Relationship Status Dates Dr. Alexander Steiner MD Primary Care Provider Active Start: September 19, 2024 Dr. Alexander Steiner MD Attending Provider Active Start: September 19, 2024 Dr. Alexander Steiner MD Referring Provider Active Start: September 19, 2024 Team Status: Active Member Role/Relationship Status Dates Dr. Alexander Steiner MD Primary Care Provider Active Start: September 19, 2024 Dr. Rita Alba MD Attending Provider Active Start: September 19, 2024 Team Status: Inactive Member Role/Relationship Status Dates Dr. Alexander Steiner MD Primary Care Provider Active Start: September 20, 2024 End: September 20, 2024 Dr. Alexander Steiner MD Attending Provider Active Start: September 20, 2024 End: September 20, 2024 Dr. Alexander Steiner MD Referring Provider Active Start: September 20, 2024 End: September 20, 2024 Team Status: Inactive Member Role/Relationship Status Dates Dr. Alexander Steiner MD Primary Care Provider Active Start: 2024 End: 2024 Dr. Alexander Steiner MD Referring Provider Active Start: 2024 End: 2024 CHRISTY Rios Attending Provider Active Star t: 2024 End: 2024 Team Status: Inactive Member Role/Relationship Status Dates Dr. Alexander Steiner MD Primary Care Provider Active Start: September 19, 2024 End: September 19, 2024 Dr. Alexander Steiner MD Attending Provider Active Start: September 19, 2024 End: September 19, 2024 Dr. Alexander Steiner MD Referring Provider Active Start: September 19, 2024 End: September 19, 2024 [employer] Administrator Relationship Specialty Start Date End Date Florentin Hernandez MD PCP - General Family Medicine 10/25/11 Micah [place] [id number] Referring Internal Medicine 05/14/20 Team Status: Inactive Member Role/Relationship Status Dates Dr. Alexander Steiner MD Primary Care Provider Active Start: October 02, 2024 End: October 02, 2024 Dr. Alexander Steiner MD Attending Provider Active Start: October 02, 2024 End: October 02, 2024 Dr. Alexander Steiner MD Referring Provider Active Start: October 02, 2024 End: October 02, 2024 [employer] Administrator Relationship Specialty Start Date End Date Florentin Hernandez MD PCP - General Family Medicine 10/25/11 Micah Jimenez [address] [place] [id number] Referring Internal Medicine 05/14/20 Team Status: Inactive Member Role/Relationship Status Dates Dr. Alexander Steiner MD Primary Care Provider Active Start: October 21, 2024 End: October 21, 2024 Dr. Marcelino Nolen MD Attending Provider Active Sta rt: October 21, 2024 End: October 21, 2024 Dr. Marcelino Nolen MD Referring Provider Active Sta rt: October 21, 2024 End: October 21, 2024 Team Status: Inactive Member Role/Relationship Status Dates Dr. Alexander Steiner MD Primary Care Provider Active Start: July 08, 2024 End: July 08, 2024 Dr. Alexander Steiner MD Referring Provider Active Start: July 08, 2024 End: July 08, 2024 Dr. Alejandro Machado DO Attending Provider Active Start: July 08, 2024 End: July 08, 2024 Team Status: Inactive Member Role/Relationship Status Dates Dr. Alexander Steiner MD Primary Care Provider Active Start: August 12, 2024 End: August 12, 2024 Dr. Alexander Steiner MD Attending Provider Active Start: August 12, 2024 End: August 12, 2024 Dr. Alexander Steiner MD Referring Provider Active Start: August 12, 2024 End: August 12, 2024 Team Status: Inactive Member Role/Relationship Status Dates Dr. Alexander Steiner MD Primary Care Provider Active Start: August 22, 2024 End: August 22, 2024 Dr. Alexander Steiner MD Attending Provider Active Start: August 22, 2024 End: August 22, 2024 Dr. Alexander Steiner MD Referring Provider Active Start: August 22, 2024 End: August 22, 2024 Team Status: Active Member Role/Relationship Status Dates Dr. Alexander Steiner MD Primary Care Provider Active Start: August 22, 2024 End: August 22, 2024 Dr. Alexander Steiner MD Referring Provider Active Start: August 22, 2024 End: August 22, 2024 Dr. Sánchez Pena MD Attending Provider Active Start: August 22, 2024 End: August 22, 2024 Team Status: Active Member Role/Relationship Status Dates Dr. Deni Jackson MD Attending Provider Active Start: August 22, 2024 Dr. Alexander Steiner MD Referring Provider Active Start: August 22, 2024 Team Status: Inactive Member Role/Relationship Status Dates Dr. Alexander Steiner MD Primary Care Provider Active Start: August 29, 2024 End: August 29, 2024 Dr. Alexander Steiner MD Referring Provider Active Start: August 29, 2024 End: August 29, 2024 Laura Condon NP, [employer]ICIAN-C Attending Provider Active Start: August 29, 2024 End: August 29, 2024 Team Status: Inactive Member Role/Relationship Status Dates Dr. Alexander Steiner MD Primary Care Provider Active Start: September 11, 2024 End: September 11, 2024 Dr. Alexander Steiner MD Attending Provider Active Start: September 11, 2024 End: September 11, 2024 Dr. Alexander Steiner MD Referring Provider Active Start: September 11, 2024 End: September 11, 2024 Team Status: Inactive Member Role/Relationship Status Dates Dr. Alexander Steiner MD Primary Care Provider Active Start: September 16, 2024 End: September 16, 2024 Dr. Alexander Steiner MD Attending Provider Active Start: September 16, 2024 End: September 16, 2024 Dr. Alexander Steiner MD Referring Provider Active Start: September 16, 2024 End: September 16, 2024 Team Status: Inactive Member Role/Relationship Status Dates Dr. Alexander Steiner MD Primary Care Provider Active Start: September 19, 2024 End: September 19, 2024 Dr. Alexander Steiner MD Attending Provider Active Start: September 19, 2024 End: September 19, 2024 Dr. Alexander Steiner MD Referring Provider Active Start: September 19, 2024 End: September 19, 2024 Team Status: Active Member Role/Relationship Status Dates Dr. Alexander Steiner MD Primary Care Provider Active Start: September 19, 2024 Dr. Rita Alba MD Attending Provider Active Start: September 19, 2024 Team Status: Inactive Member Role/Relationship Status Dates Dr. Alexander Steiner MD Primary Care Provider Active Start: September 20, 2024 End: September 20, 2024 Dr. Alexander Steiner MD Attending Provider Active Start: September 20, 2024 End: September 20, 2024 Dr. Alexander Steiner MD Referring Provider Active Start: September 20, 2024 End: September 20, 2024 Team Status: Inactive Member Role/Relationship Status Dates Dr. Alexander Steiner MD Primary Care Provider Active Start: 2024 End: 2024 Dr. Alexander Steiner MD Referring Provider Active Start: 2024 End: 2024 CHRISTY Rios Attending Provider Active Star t: 2024 End: 2024 Team Status: Inactive Member Role/Relationship Status Dates Dr. Alexander Steiner MD Primary Care Provider Active Start: October 02, 2024 End: October 02, 2024 Dr. Alexander Steiner MD Attending Provider Active Start: October 02, 2024 End: October 02, 2024 Dr. Alexander Steiner MD Referring Provider Active Start: October 02, 2024 End: October 02, 2024 Team Status: Inactive Member Role/Relationship Status Dates Dr. Alexander Steiner MD Primary Care Provider Active Start: October 21, 2024 End: October 21, 2024 Dr. Marcelino Nolen MD Attending Provider Active Sta rt: October 21, 2024 End: October 21, 2024 Dr. Marcelino Nolen MD Referring Provider Active Sta rt: October 21, 2024 End: October 21, 2024 Team Status: Active Member Role/Relationship Status Dates Dr. Alexander Steiner MD Primary Care Provider Active Start: October 29, 2024 Dr. Alejandro Machado DO Attending Provider Active Start: October 29, 2024 Dr. Alejandro Machado DO Referring Provider Active Start: October 29, 2024 Team Status: Inactive Member Role/Relationship Status Dates Dr. Alexander Steiner MD Primary Care Provider Active Start: October 31, 2024 End: October 31, 2024 Dr. Alexandre Steiner MD Referring Provider Active Start: October 31, 2024 End: October 31, 2024 Dr. Alejandro Machado DO Attending Provider Active Start: October 31, 2024 End: October 31, 2024 Team Status: Inactive Member Role/Relationship Status Dates Dr. Alexander Steiner MD Primary Care Provider Active Start: October 29, 2024 End: October 29, 2024 Dr. Alejandro Machado DO Attending Provider Active Start: October 29, 2024 End: October 29, 2024 Dr. Alejandro Machado DO Referring Provider Active Start: October 29, 2024 End: October 29, 2024 [employer] Administrator Relationship Specialty Start Date End Date Alexander Steiner [facility] [address] [facility] [address] [place], [place] [id number] PCP - General Gerontology 10/25/24 Micah Jimenez [address] [place] [id number] Referring Internal Medicine 05/14/20 [employer] Administrator Relationship Specialty Start Date End Date Alexander Steiner [address] [facility] [address] [place], [place] [address] PCP - General Gerontology 10/25/24 Micah Jimenez [address] [place] [id number] Referring Internal Medicine 05/14/20 [employer] Administrator Relationship Specialty Start Date End Date Alexander Steiner [address] [place], [place] [id number] PCP - General Gerontology 10/25/24 Micah Jimenez [address] [id number] Referring Internal Medicine 05/14/20 [employer] Administrator Relationship Specialty Start Date End Date Alexander Steiner [address] [place], [place] [id number] PCP - General Gerontology 10/25/24 Micah Jimenez [address] [facility] [place] [id number] Referring Internal Medicine 05/14/20 Team Status: Inactive Member Role/Relationship Status Dates Dr. Alexander Steiner MD Primary Care Provider Active Start: August 12, 2024 End: August 12, 2024 Dr. Alexander Steiner MD Attending Provider Active Start: August 12, 2024 End: August 12, 2024 Dr. Alexander Steiner MD Referring Provider Active Start: August 12, 2024 End: August 12, 2024 Team Status: Inactive Member Role/Relationship Status Dates Dr. Alexander Steiner MD Primary Care Provider Active Start: August 22, 2024 End: August 22, 2024 Dr. Alexander Steiner MD Attending Provider Active Start: August 22, 2024 End: August 22, 2024 Dr. Alexander Steiner MD Referring Provider Active Start: August 22, 2024 End: August 22, 2024 Team Status: Active Member Role/Relationship Status Dates Dr. Alexander Steiner MD Primary Care Provider Active Start: August 22, 2024 End: August 22, 2024 Dr. Alexander Steiner MD Referring Provider Active Start: August 22, 2024 End: August 22, 2024 Dr. Sánchez Pena MD Attending Provider Active Start: August 22, 2024 End: August 22, 2024 Team Status: Active Member Role/Relationship Status Dates Dr. Deni Jackson MD Attending Provider Active Start: August 22, 2024 Dr. Alexander Steiner MD Referring Provider Active Start: August 22, 2024 Team Status: Inactive Member Role/Relationship Status Dates Dr. Alexander Steiner MD Primary Care Provider Active Start: August 29, 2024 End: August 29, 2024 Dr. Alexander Steiner MD Referring Provider Active Start: August 29, 2024 End: August 29, 2024 Laura Condon [employer]CRAFT ELECTRICIAN, [employer]CRAFT ELECTRICIAN-C Attending Provider Active Start: August 29, 2024 End: August 29, 2024 Team Status: Inactive Member Role/Relationship Status Dates Dr. Alexander Steiner MD Primary Care Provider Active Start: September 11, 2024 End: September 11, 2024 Dr. Alexander Steiner MD Attending Provider Active Start: September 11, 2024 End: September 11, 2024 Dr. Alexander Steiner MD Referring Provider Active Start: September 11, 2024 End: September 11, 2024 Team Status: Inactive Member Role/Relationship Status Dates Dr. Alexander Steiner MD Primary Care Provider Active Start: September 16, 2024 End: September 16, 2024 Dr. Alexander Steiner MD Attending Provider Active Start: September 16, 2024 End: September 16, 2024 Dr. Alexander Steiner MD Referring Provider Active Start: September 16, 2024 End: September 16, 2024 Team Status: Inactive Member Role/Relationship Status Dates Dr. Alexander Steiner MD Primary Care Provider Active Start: September 19, 2024 End: September 19, 2024 Dr. Alexander Steiner MD Attending Provider Active Start: September 19, 2024 End: September 19, 2024 Dr. Alexander Steiner MD Referring Provider Active Start: September 19, 2024 End: September 19, 2024 Team Status: Active Member Role/Relationship Status Dates Dr. Alexander Steiner MD Primary Care Provider Active Start: September 19, 2024 Dr. Rita Alba MD Attending Provider Active Start: September 19, 2024 Team Status: Inactive Member Role/Relationship Status Dates Dr. Alexander Steiner MD Primary Care Provider Active Start: September 20, 2024 End: September 20, 2024 Dr. Alexander Steiner MD Attending Provider Active Start: September 20, 2024 End: September 20, 2024 Dr. Alexander Steiner MD Referring Provider Active Start: September 20, 2024 End: September 20, 2024 Team Status: Inactive Member Role/Relationship Status Dates Dr. Alexander Steiner MD Primary Care Provider Active Start: 2024 End: 2024 Dr. Alexander Steiner MD Referring Provider Active Start: 2024 End: 2024 CHRISTY Rios Attending Provider Active Star t: 2024 End: 2024 Team Status: Inactive Member Role/Relationship Status Dates Dr. Alexander Steiner MD Primary Care Provider Active Start: October 02, 2024 End: October 02, 2024 Dr. Alexander Steiner MD Attending Provider Active Start: October 02, 2024 End: October 02, 2024 Dr. Alexander Steiner MD Referring Provider Active Start: October 02, 2024 End: October 02, 2024 Team Status: Inactive Member Role/Relationship Status Dates Dr. Alexander Steiner MD Primary Care Provider Active Start: October 21, 2024 End: October 21, 2024 Dr. Marcelino Nolen MD Attending Provider Active Sta rt: October 21, 2024 End: October 21, 2024 Dr. Marcelino Nolen MD Referring Provider Active Sta rt: October 21, 2024 End: October 21, 2024 Team Status: Inactive Member Role/Relationship Status Dates Dr. Alexander Steiner MD Primary Care Provider Active Start: October 29, 2024 End: October 29, 2024 Dr. Alejandro Machado DO Attending Provider Active Start: October 29, 2024 End: October 29, 2024 Dr. Alejandro Machado DO Referring Provider Active Start: October 29, 2024 End: October 29, 2024 Team Status: Inactive Member Role/Relationship Status Dates Dr. Alexander Steiner MD Primary Care Provider Active Start: October 31, 2024 End: October 31, 2024 Dr. Alexander Steiner MD Referring Provider Active Start: October 31, 2024 End: October 31, 2024 Dr. Alejandro Machado DO Attending Provider Active Start: October 31, 2024 End: October 31, 2024 Team Status: Active Member Role/Relationship Status Dates Dr. Alexander Steiner MD Primary Care Provider Active Start: November 28, 2024 Dr. Alexander Steiner MD Attending Provider Active Start: November 28, 2024 Team Status: Active Member Role/Relationship Status Dates Dr. Alexander Steiner MD Primary Care Provider Active Start: November 29, 2024 Dr. Alexander Steiner MD Attending Provider Active Start: November 29, 2024 Dr. Alexander Steiner MD Referring Provider Active Start: November 29, 2024 Team Status: Inactive Member Role/Relationship Status Dates Dr. Alexander Steiner MD Primary Care Provider Active Start: December 02, 2024 End: December 02, 2024 Dr. Alexander Steiner MD Attending Provider Active Start: December 02, 2024 End: December 02, 2024 Dr. Alexander Steiner MD Referring Provider Active Start: December 02, 2024 End: December 02, 2024 Team Status: Active Member Role/Relationship Status Dates Dr. Alexander Steiner MD Primary Care Provider Active Start: December 03, 2024 Dr. Alexander Steiner MD Attending Provider Active Start: December 03, 2024 Dr. Alexander Steiner MD Referring Provider Active Start: December 03, 2024 Team Status: Inactive Member Role/Relationship Status Dates Dr. Alexander Steiner MD Primary Care Provider Active Start: December 04, 2024 End: December 04, 2024 Dr. Alexander Steiner MD Referring Provider Active Start: December 04, 2024 End: December 04, 2024 Dr. Zuleyma Storm MD Attending Provider Active Start: December 04, 2024 End: December 04, 2024 Team Status: Inactive Member Role/Relationship Status Dates Dr. Alexander Steiner MD Primary Care Provider Active Start: November 28, 2024 End: November 28, 2024 Dr. Alexander Steiner MD Attending Provider Active Start: November 28, 2024 End: November 28, 2024 Team Status: Inactive Member Role/Relationship Status Dates Dr. Alexander Steiner MD Primary Care Provider Active Start: November 29, 2024 End: November 29, 2024 Dr. Alexander Steiner MD Attending Provider Active Start: November 29, 2024 End: November 29, 2024 Dr. Alexander Steiner MD Referring Provider Active Start: November 29, 2024 End: November 29, 2024 Team Status: Active Member Role/Relationship Status Dates Dr. Alexander Steiner MD Primary Care Provider Active Start: December 09, 2024 Dr. Alexander Steiner MD Attending Provider Active Start: December 09, 2024 Dr. Alexander Steiner MD Referring Provider Active Start: December 09, 2024 Team Status: Active Member Role/Relationship Status Dates Dr. Alexander Steiner MD Primary care physician Active Team Status: Inactive Member Role/Relationship Status Dates Dr. Alexander Steiner MD Primary care physician Active Start: August 22, 2024 End: August 22, 2024 Dr. Alexander Steiner MD Attending physician Active Start: August 22, 2024 End: August 22, 2024 Dr. Alexander Steiner MD Referring Provider Active Start: August 22, 2024 End: August 22, 2024 Team Status: Active Member Role/Relationship Status Dates Dr. Alexander Steiner MD Primary care physician Active Start: August 22, 2024 End: August 22, 2024 Dr. Alexander Steiner MD Referring Provider Active Start: August 22, 2024 End: August 22, 2024 Dr. Sánchez Pena MD Attending physician Active Start: August 22, 2024 End: August 22, 2024 Team Status: Active Member Role/Relationship Status Dates Dr. Deni Jackson MD Attending physician Active Start: August 22, 2024 Dr. Alexander Steiner MD Referring Provider Active Start: August 22, 2024 Team Status: Inactive Member Role/Relationship Status Dates Dr. Alexander Steiner MD Primary care physician Active Start: August 29, 2024 End: August 29, 2024 Dr. Alexander Steiner MD Referring Provider Active Start: August 29, 2024 End: August 29, 2024 Laura Condon [employer] ELECTRICIAN, [employer] ELECTRICIAN-C Attending physician Active Start: August 29, 2024 End: August 29, 2024 Team Status: Inactive Member Role/Relationship Status Dates Dr. Alexander Steiner MD Primary care physician Active Start: September 11, 2024 End: September 11, 2024 Dr. Alexander Steiner MD Attending physician Active Start: September 11, 2024 End: September 11, 2024 Dr. Alexander Steiner MD Referring Provider Active Start: September 11, 2024 End: September 11, 2024 Team Status: Inactive Member Role/Relationship Status Dates Dr. Alexander Steiner MD Primary care physician Active Start: September 16, 2024 End: September 16, 2024 Dr. Alexander Steiner MD Attending physician Active Start: September 16, 2024 End: September 16, 2024 Dr. Alexander Steiner MD Referring Provider Active Start: September 16, 2024 End: September 16, 2024 Team Status: Inactive Member Role/Relationship Status Dates Dr. Alexander Steiner MD Primary care physician Active Start: September 19, 2024 End: September 19, 2024 Dr. Alexander Steiner MD Attending physician Active Start: September 19, 2024 End: September 19, 2024 Dr. Alexander Steiner MD Referring Provider Active Start: September 19, 2024 End: September 19, 2024 Team Status: Active Member Role/Relationship Status Dates Dr. Alexander Steiner MD Primary care physician Active Start: September 19, 2024 Dr. Rita Alba MD Attending physician Active Start: September 19, 2024 Team Status: Inactive Member Role/Relationship Status Dates Dr. Alexander Steiner MD Primary care physician Active Start: September 20, 2024 End: September 20, 2024 Dr. Alexander Steiner MD Attending physician Active Start: September 20, 2024 End: September 20, 2024 Dr. Alexander Steiner MD Referring Provider Active Start: September 20, 2024 End: September 20, 2024 Team Status: Inactive Member Role/Relationship Status Dates Dr. Alexander Steiner MD Primary care physician Active Start: 2024 End: 2024 Dr. Alexander Steiner MD Referring Provider Active Start: 2024 End: 2024 CHRISTY Rios Attending physician Active Sta rt: 2024 End: 2024 Team Status: Inactive Member Role/Relationship Status Dates Dr. Alexander Steiner MD Primary care physician Active Start: October 02, 2024 End: October 02, 2024 Dr. Alexander Steiner MD Attending physician Active Start: October 02, 2024 End: October 02, 2024 Dr. Alexander Steiner MD Referring Provider Active Start: October 02, 2024 End: October 02, 2024 Team Status: Inactive Member Role/Relationship Status Dates Dr. Alexander Steiner MD Primary care physician Active Start: October 21, 2024 End: October 21, 2024 Dr. Marcelino Nolen MD Attending physician Active St art: October 21, 2024 End: October 21, 2024 Dr. Marcelino Nolen MD Referring Provider Active Sta rt: October 21, 2024 End: October 21, 2024 Team Status: Inactive Member Role/Relationship Status Dates Dr. Alexander Steiner MD Primary care physician Active Start: October 29, 2024 End: October 29, 2024 Dr. Alejandro Machado DO Attending physician Active Start: October 29, 2024 End: October 29, 2024 Dr. Alejandro Machado DO Referring Provider Active Start: October 29, 2024 End: October 29, 2024 Team Status: Inactive Member Role/Relationship Status Dates Dr. Alexander Steiner MD Primary care physician Active Start: October 31, 2024 End: October 31, 2024 Dr. Alexander Steiner MD Referring Provider Active Start: October 31, 2024 End: October 31, 2024 Dr. Alejandro Machado DO Attending physician Active Start: October 31, 2024 End: October 31, 2024 Team Status: Inactive Member Role/Relationship Status Dates Dr. Alexander Steiner MD Primary care physician Active Start: November 28, 2024 End: November 28, 2024 Dr. Alexander Steiner MD Attending physician Active Start: November 28, 2024 End: November 28, 2024 Team Status: Inactive Member Role/Relationship Status Dates Dr. Alexander Steiner MD Primary care physician Active Start: November 29, 2024 End: November 29, 2024 Dr. Alexander Steiner MD Attending physician Active Start: November 29, 2024 End: November 29, 2024 Dr. Alexander Steiner MD Referring Provider Active Start: November 29, 2024 End: November 29, 2024 Team Status: Inactive Member Role/Relationship Status Dates Dr. Alexander Steiner MD Primary care physician Active Start: December 02, 2024 End: December 02, 2024 Dr. Alexander Steiner MD Attending physician Active Start: December 02, 2024 End: December 02, 2024 Dr. Alexander Steiner MD Referring Provider Active Start: December 02, 2024 End: December 02, 2024 Team Status: Active Member Role/Relationship Status Dates Dr. Alexander Steiner MD Primary care physician Active Start: December 03, 2024 Dr. Alexander Steiner MD Attending physician Active Start: December 03, 2024 Dr. Alexander Steiner MD Referring Provider Active Start: December 03, 2024 Team Status: Inactive Member Role/Relationship Status Dates Dr. Alexander Steiner MD Primary care physician Active Start: December 04, 2024 End: December 04, 2024 Dr. Alexander Steiner MD Referring Provider Active Start: December 04, 2024 End: December 04, 2024 Dr. Zuleyma Storm MD Attending physician Active Start: December 04, 2024 End: December 04, 2024 Team Status: Active Member Role/Relationship Status Dates Dr. Alexander Steiner MD Primary care physician Active Start: December 09, 2024 Dr. Alexander Steiner MD Attending physician Active Start: December 09, 2024 Dr. Alexander Steiner MD Referring Provider Active Start: December 09, 2024 Team Status: Inactive Member Role/Relationship Status Dates Dr. Alexander Steiner MD Primary care physician Active Start: December 11, 2024 End: December 11, 2024 Dr. Alexander Steiner MD Referring Provider Active Start: December 11, 2024 End: December 11, 2024 Dr. Zuleyma Storm MD Attending physician Active Start: December 11, 2024 End: December 11, 2024 Team Status: Active Member Role/Relationship Status Dates Dr. Alexander Steiner MD Primary care physician Active Start: December 11, 2024 Dr. Alexander Steiner MD Referring Provider Active Start: December 11, 2024 Dr. Zuleyma Storm MD Attending physician Active Start: December 11, 2024 Dr. Zuleyma Storm MD Nurse Practitioner Active Start: December 11, 2024 Team Status: Inactive Member Role/Relationship Status Dates Dr. Alexander Steiner MD Primary care physician Active Start: December 03, 2024 End: December 03, 2024 Dr. Alexander Steiner MD Attending physician Active Start: December 03, 2024 End: December 03, 2024 Dr. Alexander Steiner MD Referring Provider Active Start: December 03, 2024 End: December 03, 2024 Goals (unrecognized section and content) Goals [...] may be documented in an alternate section Source Comments (unrecognize d section and content) In the event this informatio n is protected by the Federal Confidentiality of Alcohol and Drug Abuse Patient Records regulations: The Federal rules restrict any use of the information to criminally investigate or prosecute any alcohol or drug abuse patient.[facility] the event this information is protected by the Federal Confidentiality of Alcohol and Drug Abuse Patient Records regulations: The Federal rules restrict any use of the information to criminally investigate or prosecute any alcohol or drug abuse patient.[facility] the event this information is protected by the Federal Confidentiality of Alcohol and Drug Abuse Patient Records regulations: The Federal rules restrict any use of the information to criminally investigate or prosecute any alcohol or drug abuse patient.[facility] the event this information is protected by the Federal Confidentiality of Alcohol and Drug Abuse Patient Records regulations: The Federal rules restrict any use of the information to criminally investigate or prosecute any alcohol or drug abuse patient.[facility] the event this information is protected by the Federal Confidentiality of Alcohol and Drug Abuse Patient Records regulations: The Federal rules restrict any use of the information to criminally investigate or prosecute any alcohol or drug abuse patient.[facility] the event this information is protected by the Federal Confidentiality of Alcohol and Drug Abuse Patient Records regulations: The Federal rules restrict any use of the information to criminally investigate or prosecute any alcohol or drug abuse patient.[facility] CenterIn the event this information is protected by the Federal Confidentiality of Alcohol and Drug Abuse Patient Records regulations: The Federal rules restrict any use of the information to criminally investigate or prosecute any alcohol or drug abuse patient.[facility] FOR RECORDS PERTAINING TO PATIENTS WHO ARE [...] BE BASED ON THE PRIMARY CLINICAL RECORDS. [facility] [employer] [facility]. provides no warranty or guarantee of the accuracy or completeness of information in this document.
[2024-12-27] MEDS: 0.9% Saline Lock 10 ML Syringe IV (01:56)
[2024-12-27 07:14] LABS: Hematocrit 31.3 % (40-54); Hemoglobin 9.7 g/dL (13.0-16.5); Immature Granulocytes Count 0.050 X10^3/uL (0.0-0.0); Mean Corp Hgb Conc 31.0 g/dL (32-36); Mean Corpuscular Volume 73.5 fL (80-94); Mean Platelet Vol. 10.0 fl (6.2-12.0); NRBC Flagged by Analyzer 0 % (0-5); POSITIVE MORPHOLOGY YES; Platelet Count 330 K/mm3 (150-450); RBC Distribution Width CV 21.4 % (11.6-14.6); RBC Distribution Width SD 56.2 fl (35.1-43.9); Red Blood Count 4.26 M/mm3 (4.6-6.2); White Blood Count 11.1 K/mm3 (4.4-11.0)
[2024-12-27 07:18] LABS: Differential Indicated SCAN CRITERIA MET
[2024-12-27 07:31] LABS: Anion Gap 11 (5-15); BUN 7 mg/dL (4-19); BUN/Creat Ratio 11.4 RATIO (10-20); Calcium,Total 8.2 mg/dL (7.6-11.0); Carbon Dioxide 21.6 mmol/L (21.0-32.0); Chloride 109 mmol/L (98-108); Estimated Creatinine Clearance 51.35 ml/min (50-250); Glucose 145 mg/dL (70-99); Potassium 4.1 mmol/L (3.3-5.1)
--- NOTE | 2024-12-27 07:55 | PN.SURG_ITS ---
Subjective Subjective Patient has been ambulating in the halls denies any flatus. Has had good urine output with the Kim we will plan to remove this morning. Objective Data Objective Data Vital Signs: Vital Signs Temp Pulse Resp BP Pulse Ox O2 Del Method O2 Flow Rate 98.2 F 76 18 141/69 H 97 Room Air 2 12/27/24 05:33 12/27/24 05:33 12/27/24 05:33 12/27/24 05:33 12/27/24 05:33 12/27/24 05:33 12/26/24 15:26 Oxygen Flow Rate (L/min) 2 Oxygen Delivery Method Room Air Weight: 112 lb 6.972 oz Body Mass Index (BMI) 17.6 Intake & Output: Intake and Output for Last 24 Hours 12/25/24 12/26/24 12/27/24 23:59 23:59 23:59 Intake Total 2666.67 / 2666.67 Output Total 1010 / 2285 1875 / 1875 Balance 1656.67 / 381.67 -1875 / -1875 Lab / Micro Data 12/27/24 06:32 12/27/24 06:32 Labs: Laboratory Results - last 24 hr 12/26/24 07:33: WBC 7.1, RBC 4.63, Hgb 10.5 L, Hct 34.0 L, MCV 73.4 L, MCH 22.7 L, MCHC 30.9 L, RDW Std Deviation 56.4 H, RDW Coeff of Rima 22.0 H, Plt Count 391, MPV 10.1, Immature Gran % (Auto) 0.600, Neut % (Auto) 75.9 H, Lymph % (Auto) 10.1 L, [place] % (Auto) 10.6 H, Eos % (Auto) 1.7, Baso % (Auto) 1.1 H, Absolute Neuts (auto) 5.4, Absolute Lymphs (auto) 0.71 L, Nucleated RBC % 0, Differential Comment SCANNED, Polychromasia RARE, Anisocytosis 2+, Microcytosis 1+ 12/26/24 11:08: Sodium 139, Potassium 4.0, Chloride 107, Carbon Dioxide 21.2, Anion Gap 11, BUN 8, Creatinine 0.70, Estim Creat Clear Calc 51.35, Est GFR (MDRD) Non-Af 92, BUN/Creatinine Ratio 11.7, Glucose 141 H, Calcium 7.9, Magnesium 2.2, TSH 0.447, Free T4 1.70 H, Free T3 pg/dL 2.2 12/27/24 06:32: WBC 11.1 H, RBC 4.26 L, Hgb 9.7 L, Hct 31.3 L, MCV 73.5 L, MCH 22.8 L, MCHC 31.0 L, RDW Std Deviation 56.2 H, RDW Coeff of Rima 21.4 H, Plt Count 330, MPV 10.0, Immature Gran % (Auto) 0.400, Neut % (Auto) 81.6 H, Lymph % (Auto) 6.6 L, [place] % (Auto) 10.9 H, Eos % (Auto) 0.1, Baso % (Auto) 0.4, A bsolute Neuts (auto) 9.1 H, Absolute Lymphs (auto) 0.73 L, Nucleated RBC % 0, Sodium 142, Potassium 4.1, Chloride 109 H, Carbon Dioxide 21.6, Anion Gap 11, BUN 7, Creatinine 0.66 L, Estim Creat Clear Calc 51.35, Est GFR (MDRD) Non-Af 94, BUN/Creatinine Ratio 11.4, Glucose 145 H, Calcium 8.2 Physical Exam Const oriented x3 and no apparent distress Resp normal respiratory effort GI soft to palpation GI Narrative: Incisions dressed clean dry and intact, appropriately tender near incisions, no peritoneal signs Bladder / Kidney Exam: catheter in place Assessment & Plan Assessment/Plan (1) S/P right colectomy: (2) Tubulovillous adenoma: PLAN: Plan Postop day 1 status post laparoscopic assisted right hemicolectomy Tolerating clears await bowel function for advancing transitional Continue ambulating Pain controlled Appreciate medicine's assistance Good urine output will remove Kim Lovenox for DVT prophylaxis Zuleyma Storm M.D. Pager: [phone] [facility] [address] [place] [address], [facility], [address] [place] [address] Office: [phone]
[2024-12-27] MEDS: ROFLUMILAST 500 MCG TABLET PO (08:05)
[2024-12-27 08:22] LABS: Anisocytosis 1+
--- NOTE | 2024-12-27 09:57 | CASEMGMT ---
VELEZ Met with patient to complete VELEZ form. VELEZ form and its content were verbally explained and patient's questions were answered to the best of my ability.? Patient voiced understanding and signed VEELZ form.? Patient provided a copy of signed VELEZ form and original placed in patient's chart.? Patient had no further questions. aCtina Bustamante, Discharge Planning Ass
--- NOTE | 2024-12-27 11:27 | PN_ITS ---
Subjective Subjective Patient seen and examined with his nurse by his bedside. His daughter was by his bedside. HE had no active complaints. Pain is well controlled. Review of systems is otherwise negative. He has remained in norrmal sinus rhythm. Objective Data Objective Data Vital Signs: Vital Signs Temp Pulse Resp BP Pulse Ox O2 Del Method O2 Flow Rate 97.5 F L 84 20 H 134/71 H 97 Room Air 2 12/27/24 09:00 12/27/24 10:06 12/27/24 10:06 12/27/24 09:00 12/27/24 09:00 12/27/24 09:00 12/26/24 15:26 Oxygen Flow Rate (L/min) 2 Oxygen Delivery Method Room Air Weight: 112 lb 6.972 oz Body Mass Index (BMI) 17.6 Intake & Output: Intake and Output for Last 24 Hours 12/25/24 12/26/24 12/27/24 23:59 23:59 23:59 Intake Total 2666.67 / 2666.67 822.67 / 822.67 Output Total 1010 / 2285 1875 / 1875 Balance 1656.67 / 381.67 -1052.33 / -1052.33 Lab / Micro Data 12/27/24 06:32 12/27/24 06:32 Labs: Laboratory Results - last 24 hr 12/26/24 11:08: Sodium 139, Potassium 4.0, Chloride 107, Carbon Dioxide 21.2, Anion Gap 11, BUN 8, Creatinine 0.70, Estim Creat Clear Calc 51.35, Est GFR (MDRD) Non-Af 92, BUN/Creatinine Ratio 11.7, Glucose 141 H, Calcium 7.9, Magnesium 2.2, TSH 0.447, Free T4 1.70 H, Free T3 pg/dL 2.2 12/27/24 06:32: WBC 11.1 H, RBC 4.26 L, Hgb 9.7 L, Hct 31.3 L, MCV 73.5 L, MCH 22.8 L, MCHC 31.0 L, RDW Std Deviation 56.2 H, RDW Coeff of Rima 21.4 H, Plt Count 330, MPV 10.0, Immature Gran % (Auto) 0.400, Neut % (Auto) 81.6 H, Lymph % (Auto) 6.6 L, [place] % (Auto) 10.9 H, Eos % (Auto) 0.1, Baso % (Auto) 0.4, A bsolute Neuts (auto) 9.1 H, Absolute Lymphs (auto) 0.73 L, Nucleated RBC % 0, Anisocytosis 1+, Sodium 142, Potassium 4.1, Chloride 109 H, Carbon Dioxide 21.6, Anion Gap 11, BUN 7, Creatinine 0.66 L, Estim Creat Clear Calc 51.35, Est GFR (MDRD) Non-Af 94, BUN/Creatinine Ratio 11.4, Glucose 145 H, Calcium 8.2 Physical Exam Const alert, oriented x3 and no apparent distress Constitutional Narrative: frail General Appearance: cooperative HEENT normocephalic, head/scalp atraumatic, moist oral mucous membranes and oropharynx normal Eyes EOMs intact bilaterally Neck supple and no JVD Lymph Lymphatic: no lymphedema noted Resp normal respiratory effort, normal air movement and clear to auscultation bilaterally Cardio regular rate, regular rhythm, S1 normal heart sound, S2 normal heart sound and no murmurs GI GI Narrative: Minimal tenderness to palpation due to surgery. Intact dressing over laparoscopic site. Extremity normal capillary refill, no clubbing, cyanosis or edema and no calf tenderness General Extremity: no tenderness to palpation of joints or extremities Neuro CN's II-XII intact bilaterally, no focal motor deficits and no sensory deficits noted Motor Exam: general weakness Psych thought process normal, cooperative and affect normal Appearance: appropriate Assessment & Plan Assessment/Plan (1) Multiple polyps of sigmoid colon: PLAN: Plan #Tachycardia * Patient was tachycardic during his right hemicolectomy today and there was concern that this may be due to A-fib. However EKG per my review showed junctional rhythm but no evidence of A-fib * Does not have a history of A-fib. 2D echo ordered. Potassium and magnesium within normal limits. * Tachycardia had resolved by time of my review and has remained in normal sinus rhythm since then. He remained in normal sinus rhythm overnight. * limited 2D echo ordered and pending * He does have 2D echo from 09/19/2024 which showed EF of 60% with normal diastolic for age and RVSP of 43 mmHg. * if limited echo normal, will recommend 30 day event monitor on discharge. #History of tubulovillous adenoma s/p right laparoscopic hemicolectomy * Today's postop day 1 * Management as per primary service General Surgery. #Hyperlipidemia: On statin #History of hypothyroidism: * On Synthroid. TSH is within normal limits at 0.447 though free T4 is slightly elevated at 1.7. * Will not adjust medications for now as TSH is normal. * Continue current dose of Synthroid * #History of COPD: On Roflumilast. Breathing treatments bronchodilators. Currently not in exacerbation. #BPH: On Flomax DVT prophylaxis: As per primary service General Surgery. Thank you for the courtesy of the consult. Hospitalist service will continue to follow with you. Charges/Coding Visit Charges Inpatient E&M: 96807 Subs Hosp L2
--- NOTE | 2024-12-27 13:41 | CASEMGMT ---
Dx:R hemicolectomy LACE:2 6-Clicks:21 Medical record reviewed and patient evaluated for identification of discharge planning needs. Based on this review, at this time criteria are not present to indicate a need for discharge planning. Will remain available to assist with discharge planning needs as identified or requested. Pt seen ambulating halls.
--- NOTE | 2024-12-27 16:01 | PCM.DC.SUM ---
Documented by User: Dr. Zuleyma Storm MD 12/27/24 16:05 Providers Date of Admission: 12/27/24 Primary Care Physician: Dr. Alexander Steiner MD Consultations 12/26/24 10:40 Consult: Hospitalist Routine Consulting Provider: Caitlin Fisher Reason for Consult: medical EMERGENT Consult: No MD Notified: Yes Date Notified: 12/26/24 Time Notified: 10:38 Method of Notification: Verbal Reason For Visit: Laparoscopic, Lap poss open right Raz Colectomy Diagnosis Discharge Diagnosis (1) Multiple polyps of sigmoid colon: Status: Acute Code(s): K63.5 - Polyp of colon Plan Postop day 1 status post laparoscopic assisted right hemicolectomy Tolerating clears await bowel function for advancing transitional Continue ambulating Pain controlled Appreciate medicine's assistance Good urine output will remove Kim Lovenox for DVT prophylaxis Zuleyma Storm M.D. Pager: [phone] [facility] [address] [place] [address], [facility], [address] [place] [address] Office: [phone] Medications at Discharge Home Medications aspirin 81 mg tablet,delayed release 81 mg PO DAILY HEART HEALTH 01/27/16 omeprazole 40 mg capsule,delayed release 40 mg PO DINNER GERD 05/25/19 tamsulosin 0.4 mg capsule 0.4 mg PO .morning BPH 04/20/21 multivitamin 1 tab PO DAILY SUPPLEMENT 12/12/22 levothyroxine 112 mcg tablet 112 mcg PO QDAY THYROID 11/28/23 roflumilast 500 mcg tablet (Daliresp) 500 mcg PO QDAY COPD 09/24/24 albuterol 90 mcg/actuation aerosol inhaler 90 mcg inhalation PRN PRN COPD 12/02/24 atorvastatin 80 mg tablet (Lipitor) 60 mg PO QHS CHOLESTEROL 12/02/24 ipratropium 0.5 mg-albuterol 3 mg (2.5 mg base)/3 mL nebulization soln 3 ml inhalation Q6H PRN shortness of breath or wheezing 12/11/24 Hospital Course Operations colectomy (Laparoscopic assisted right hemicolectomy due to multiple large tubulovillous adenoma) Procedures None Summary of Care Provided Minutes Spent on Discharge: 15 Hospital Course: Patient was admitted status post laparoscopic assisted right hemicolectomy. Patient was started on a clear liquid diet was tolerating once he was able to have flatus he was able to be advanced to a transitional diet and again once tolerating was he will be DC'd home. Physical Exam Const oriented x3 and no apparent distress Resp normal respiratory effort GI soft to palpation GI Narrative: Incisions dressed clean dry and intact, appropriately tender near incisions, no peritoneal signs Weight / BMI Weight Weight: 112 lb 6.972 oz Body Mass Index (BMI) 17.6 ABG / Lab / Microbiology Data 12/28/24 07:03 12/27/24 06:32 Laboratory: Laboratory Results - last 24 hr 12/28/24 07:03: WBC 8.0, RBC 4.62, Hgb 10.4 L, Hct 33.4 L, MCV 72.3 L, MCH 22.5 L, MCHC 31.1 L, RDW Std Deviation 55.8 H, RDW Coeff of Rima 21.7 H, Plt Count 377, MPV 9.8, Immature Gran % (Auto) 0.200, Neut % (Auto) 75.3 H, Lymph % (Auto) 11.2 L, [place] % (Auto) 11.1 H, Eos % (Auto) 1.5, Baso % (Auto) 0.7, Absolute Neuts (auto) 6.1, Absolute Lymphs (auto) 0.90, Nucleated RBC % 0, Anisocytosis RARE Radiography Diagnostic Testing: Radiology Impression Echocardiogram 12/26/24 17:45 Interpretation Summary The estimated ejection fraction is 55 %. Ordering Physician: Caitlin Fisher Referring Physician: Zuleyma Storm Performed By: Ashwin Menard RCS D/C Instructions Discharge Activity: May Not Drive (while taking narcotic pain medications.) May shower in (days): 1 Lifting Restrictions: no lifting >20 lbs x 2 wks, no strenuous exercise/horseback for 5 wks Call your doctor if your incision/area has: Continuous Slow Oozing, Sudden Increased Bleeding, Increased Pain/ Swelling, Increased Redness, Foul Smelling Discharge and Swelling at the incision site Call your doctor if you observe: Fever of 101 or Higher Remove Dressing in: 2 days Cleanse incision/area with: Soap & Water Additional Dressing/Incision Instructions: Steri-Strips will fall off in 7 to 10 days, if they do not fall off okay to remove after 10 days. DC O2, CPAP, BIPAP Needs Home O2 Discharge instructions: No Please Follow Up With: Zuleyma Storm MD When: Call the office for a follow-up appointment 1 week; after 5 PM and on the weekends call [phone] with any concerns. Meaningful Use Info Meaningful Use Meaningful Use Diagnoses (Choose all that apply): None applicable Discharge Plan Admission Admit Date/Time: 12/27/24 11:58 Attending Provider: Zuleyma Storm Primary Care Provider: Alexander Steiner Chi Consulting Providers: Didier Rodríguez; Caitlin Fisher Discharge Orders/Prescriptions Prescriptions: Continued tamsulosin 0.4 mg capsule 0.4 mg PO .morning multivitamin Tablet 1 tab PO DAILY levothyroxine 112 mcg tablet 112 mcg PO QDAY roflumilast [Daliresp] 500 mcg tablet 500 mcg PO QDAY aspirin 81 MG tablet,delayed release (DR/EC) 81 mg PO DAILY Patient Comments: INSTRUCTED TO CALL ABOUT STOPPING PRIOR TO PROCEDURE omeprazole 40 MG capsule,delayed release(DR/EC) 40 mg PO DINNER albuterol 90 mcg/actuation aerosol 90 mcg inhalation PRN PRN (Reason: COPD) atorvastatin [Lipitor] 80 mg tablet 60 mg PO QHS ipratropium-albuterol 0.5 mg-3 mg(2.5 mg base)/3 mL solution for nebulization 3 ml inhalation Q6H PRN (Reason: shortness of breath or wheezing) Discontinued terazosin 1 mg capsule 1 mg PO DAILY Sutab 1.479-0.188- 0.225 gram tablet See Rx Instructions PO PER PKG DIR Qty: 1 0RF Rx Instructions: PO PER PKG DIR Referrals / Follow Up: Alexander Steiner Chi, MD [Primary Care Provider, Geriatrics] Disposition Disposition (needs filled in before D/C Order can be placed): Home, Self Care Documented by User: Dr. Ken Farfan MD 12/28/24 08:49 Providers Date of Admission: 12/27/24 Consultations 12/26/24 10:40 Consult: Hospitalist Routine Consulting Provider: Caitlin Fisher Reason for Consult: medical EMERGENT Consult: No MD Notified: Yes Date Notified: 12/26/24 Time Notified: 10:38 Method of Notification: Verbal Reason For Visit: Laparoscopic, Lap poss open right Raz Colectomy Diagnosis Discharge Diagnosis (1) Multiple polyps of sigmoid colon: Status: Acute Code(s): K63.5 - Polyp of colon Medications at Discharge Home Medications aspirin 81 mg tablet,delayed release 81 mg PO DAILY HEART HEALTH 01/27/16 omeprazole 40 mg capsule,delayed release 40 mg PO DINNER GERD 05/25/19 tamsulosin 0.4 mg capsule 0.4 mg PO .morning BPH 04/20/21 multivitamin 1 tab PO DAILY SUPPLEMENT 12/12/22 levothyroxine 112 mcg tablet 112 mcg PO QDAY THYROID 11/28/23 roflumilast 500 mcg tablet (Daliresp) 500 mcg PO QDAY COPD 09/24/24 albuterol 90 mcg/actuation aerosol inhaler 90 mcg inhalation PRN PRN COPD 12/02/24 atorvastatin 80 mg tablet (Lipitor) 60 mg PO QHS CHOLESTEROL 12/02/24 ipratropium 0.5 mg-albuterol 3 mg (2.5 mg base)/3 mL nebulization soln 3 ml inhalation Q6H PRN shortness of breath or wheezing 12/11/24 Weight / BMI Weight Weight: 112 lb 6.972 oz Body Mass Index (BMI) 17.6 ABG / Lab / Microbiology Data 12/28/24 07:03 12/27/24 06:32 Laboratory: Laboratory Results - last 24 hr 12/28/24 07:03: WBC 8.0, RBC 4.62, Hgb 10.4 L, Hct 33.4 L, MCV 72.3 L, MCH 22.5 L, MCHC 31.1 L, RDW Std Deviation 55.8 H, RDW Coeff of Rima 21.7 H, Plt Count 377, MPV 9.8, Immature Gran % (Auto) 0.200, Neut % (Auto) 75.3 H, Lymph % (Auto) 11.2 L, [place] % (Auto) 11.1 H, Eos % (Auto) 1.5, Baso % (Auto) 0.7, Absolute Neuts (auto) 6.1, Absolute Lymphs (auto) 0.90, Nucleated RBC % 0, Anisocytosis RARE Radiography Diagnostic Testing: Radiology Impression Echocardiogram 12/26/24 17:45 Interpretation Summary The estimated ejection fraction is 55 %. Ordering Physician: Caitlin Fisher Referring Physician: Zuleyma Storm Performed By: Ashwin Menard RCS Discharge Plan Admission Admit Date/Time: 12/27/24 11:58 Attending Provider: Zuleyma Storm Primary Care Provider: Alexander Steiner Chi Consulting Providers: Didier Rodríguez; Caitlin Fisher Discharge Orders/Prescriptions Prescriptions: Continued tamsulosin 0.4 mg capsule 0.4 mg PO .morning multivitamin Tablet 1 tab PO DAILY levothyroxine 112 mcg tablet 112 mcg PO QDAY roflumilast [Daliresp] 500 mcg tablet 500 mcg PO QDAY aspirin 81 MG tablet,delayed release (DR/EC) 81 mg PO DAILY Patient Comments: INSTRUCTED TO CALL ABOUT STOPPING PRIOR TO PROCEDURE omeprazole 40 MG capsule,delayed release(DR/EC) 40 mg PO DINNER albuterol 90 mcg/actuation aerosol 90 mcg inhalation PRN PRN (Reason: COPD) atorvastatin [Lipitor] 80 mg tablet 60 mg PO QHS ipratropium-albuterol 0.5 mg-3 mg(2.5 mg base)/3 mL solution for nebulization 3 ml inhalation Q6H PRN (Reason: shortness of breath or wheezing) Discontinued terazosin 1 mg capsule 1 mg PO DAILY Sutab 1.479-0.188- 0.225 gram tablet See Rx Instructions PO PER PKG DIR Qty: 1 0RF Rx Instructions: PO PER PKG DIR Referrals / Follow Up: Alexander Steiner Chi, MD [Primary Care Provider, Geriatrics] Disposition Disposition (needs filled in before D/C Order can be placed): Home, Self Care
[2024-12-28 03:01] VITALS: BP 138/76; PULSE 77; RESP 18; TEMP 36.9; O2SAT 96
[2024-12-28] MEDS: 0.9% Saline Lock 10 ML Syringe IV (03:07)
[2024-12-28 06:53] VITALS: PULSE 83; RESP 16
[2024-12-28 07:30] VITALS: PULSE 83
[2024-12-28 08:05] LABS: Hematocrit 33.4 % (40-54); Hemoglobin 10.4 g/dL (13.0-16.5); Immature Granulocytes Count 0.020 X10^3/uL (0.0-0.0); Mean Corp Hgb Conc 31.1 g/dL (32-36); Mean Corpuscular Volume 72.3 fL (80-94); Mean Platelet Vol. 9.8 fl (6.2-12.0); NRBC Flagged by Analyzer 0 % (0-5); POSITIVE MORPHOLOGY YES; Platelet Count 377 K/mm3 (150-450); RBC Distribution Width CV 21.7 % (11.6-14.6); RBC Distribution Width SD 55.8 fl (35.1-43.9); Red Blood Count 4.62 M/mm3 (4.6-6.2); White Blood Count 8.0 K/mm3 (4.4-11.0)
[2024-12-28 08:07] LABS: Differential Indicated SCAN CRITERIA MET
[2024-12-28 08:42] LABS: Anisocytosis RARE
[2024-12-28 09:00] VITALS: BP 169/83; PULSE 60; RESP 15; TEMP 36.5; O2SAT 96
[2024-12-28] MEDS: ROFLUMILAST 500 MCG TABLET PO (09:32)
[2024-12-28 09:37] LABS: Anion Gap 11 (5-15); BUN 7 mg/dL (4-19); BUN/Creat Ratio 10.9 RATIO (10-20); Calcium,Total 8.2 mg/dL (7.6-11.0); Carbon Dioxide 22.5 mmol/L (21.0-32.0); Chloride 107 mmol/L (98-108); Estimated Creatinine Clearance 51.35 ml/min (50-250); Glucose 77 mg/dL (70-99); Potassium 3.6 mmol/L (3.3-5.1)
[2024-12-28] MEDS: Ensure Surgery 237 ML LIQUID PO (09:40)
--- NOTE | 2024-12-28 10:49 | PN_ITS ---
Subjective Subjective Patient seen and examined. His daughter was by his bedside. He felt well and had no active complaints. Per his nurse patient had a short beat run of V. tach overnight. The telemetry. He was asleep throughout. Patient denies any chest pain or palpitations, dizziness, nausea or vomiting. He says he has had numerous cardiac testing and refuses to do a 30 day event monitor on [facility] [place]. He is agreeable to starting a beta-morenita today. Objective Data Objective Data Vital Signs: Vital Signs Temp Pulse Resp BP Pulse Ox O2 Del Method O2 Flow Rate 97.7 F L 60 15 169/83 H 96 Room Air 2 12/28/24 09:00 12/28/24 09:00 12/28/24 09:00 12/28/24 09:00 12/28/24 09:00 12/28/24 09:00 12/26/24 15:26 Oxygen Flow Rate (L/min) 2 Oxygen Delivery Method Room Air Weight: 112 lb 6.972 oz Body Mass Index (BMI) 17.6 Intake & Output: Intake and Output for Last 24 Hours 12/26/24 12/27/24 12/28/24 23:59 23:59 23:59 Intake Total 2666.67 / 2666.67 822.67 / 822.67 Output Total 1010 / 2285 2275 / 2275 Balance 1656.67 / 381.67 -1452.33 / -1452.33 Lab / Micro Data 12/28/24 07:03 12/28/24 07:03 Labs: Laboratory Results - last 24 hr 12/28/24 07:03: WBC 8.0, RBC 4.62, Hgb 10.4 L, Hct 33.4 L, MCV 72.3 L, MCH 22.5 L, MCHC 31.1 L, RDW Std Deviation 55.8 H, RDW Coeff of Rima 21.7 H, Plt Count 377, MPV 9.8, Immature Gran % (Auto) 0.200, Neut % (Auto) 75.3 H, Lymph % (Auto) 11.2 L, [place] % (Auto) 11.1 H, Eos % (Auto) 1.5, Baso % (Auto) 0.7, Absolute Neuts (auto) 6.1, Absolute Lymphs (auto) 0.90, Nucleated RBC % 0, Anisocytosis RARE, Sodium 141, Potassium 3.6, Chloride 107, Carbon Dioxide 22.5, Anion Gap 11, BUN 7, Creatinine 0.61 L, Estim Creat Clear Calc 51.35, Est GFR (MDRD) Non- Af 96, BUN/Creatinine Ratio 10.9, Glucose 77, Calcium 8.2 Radiography Diagnostic Testing: Radiology Impression Echocardiogram 12/26/24 17:45 Interpretation Summary The estimated ejection fraction is 55 %. Ordering Physician: Caitlin Fisher Referring Physician: Zuleyma Storm Performed By: Ashwin Menard RCS Physical Exam Const alert, oriented x3 and no apparent distress Constitutional Narrative: frail General Appearance: cooperative HEENT normocephalic, head/scalp atraumatic, moist oral mucous membranes and oropharynx normal Eyes EOMs intact bilaterally Neck supple and no JVD Lymph Lymphatic: no lymphedema noted Resp normal respiratory effort, normal air movement and clear to auscultation bilaterally Cardio regular rate, regular rhythm, S1 normal heart sound, S2 normal heart sound and no murmurs GI GI Narrative: Minimal tenderness to palpation due to surgery. Intact dressing over laparoscopic site. Extremity normal capillary refill, no clubbing, cyanosis or edema and no calf tenderness General Extremity: no tenderness to palpation of joints or extremities Neuro CN's II-XII intact bilaterally, no focal motor deficits and no sensory deficits noted Motor Exam: general weakness Psych thought process normal, cooperative and affect normal Appearance: appropriate Assessment & Plan Assessment/Plan (1) Multiple polyps of sigmoid colon: PLAN: Plan #Tachycardia * Patient was tachycardic during his right hemicolectomy today and there was concern that this may be due to A-fib. However EKG per my review showed junctional rhythm but no evidence of A-fib * Does not have a history of A-fib. 2D echo ordered. Potassium and magnesium within normal limits. * Tachycardia had resolved by time of my review and has remained in normal sinus rhythm since then. He remained in normal sinus rhythm overnight. * limited 2D echo ordered and pending * He does have 2D echo from 09/19/2024 which showed EF of 60% with normal diastolic for age and RVSP of 43 mmHg. * Limited echo done on 12/26/2024 showed EF of 55% and no regional wall motion abnormalities and unable to assess diastolic dysfunction. * Patient did have a few beat run of V. tach overnight. He was asymptomatic. He has not occurred again. Will start patient on p.o. carvedilol 3.125 mg twice daily. Potassium and magnesium are within normal limits. * Of note patient declined a 30-day event monitor. He did have a stress test done in October 2023 which showed EF of 57% with no significant ischemia or infarction. * #History of tubulovillous adenoma s/p right laparoscopic hemicolectomy * Today's postop day 2 * Management as per primary service General Surgery. #Hyperlipidemia: On statin #History of hypothyroidism: * On Synthroid. TSH is within normal limits at 0.447 though free T4 is slightly elevated at 1.7. * Will not adjust medications for now as TSH is normal. * Continue current dose of Synthroid * #History of COPD: On Roflumilast. Breathing treatments bronchodilators. Currently not in exacerbation. #BPH: On Flomax DVT prophylaxis: As per primary service General Surgery. Thank you for the courtesy of the consult. Hospitalist service will continue to follow with you. Charges/Coding Visit Charges Inpatient E&M: 66477 Subs Hosp L2
[2024-12-28 12:01] LABS: Magnesium 1.9 mg/dL (1.5-2.2)
[2024-12-28 13:21] VITALS: PULSE 78; RESP 17
--- NOTE | 2025-01-21 16:32 | POSTOPAN2_ITS ---
Anesthesia Postop Eval I Sum Postop Eval Completion status Anesthesia document: Postop Eval 1 completed: Yes Anesthesia Postop Eval I Summary Anesthesia Postop Eval I Summary: Anesthesia Postop Eval I: Assessment Summary Airway patent Yes 12/26/24 10:26 MANAGER CRITICAL [email or web address] Spontaneous unlabored Yes 12/26/24 10:26 MANAGER CRITICAL CARE.GILBERT respirations Mental status Awake,Calm 12/26/24 10:26 MANAGER CRITICAL CARE.[email or web address] nausea No 12/26/24 10:26 MANAGER CRITICAL CARE.MAYNOROBY Vomiting No 12/26/24 10:26 MANAGER CRITICAL CARE.MAYNOROBIsreal Anesthesia Postop Eval I: Fluid Summary Crystalloid volume administer 1,900 12/26/24 10:26 MANAGER CRITICAL CARE.SKOBY (ml) Colloids volume administered ( ml) Blood Product volume administered (ml) Total IV fluid infused 1,900 12/26/24 10:26 MANAGER CRITICAL CARE.AMYNOROBIsreal Anesthesia Postop Eval I: Summary Notes Anesthesia Complication No 12/26/24 10:26 MANAGER CRITICAL CARE.GILBERT Anesthesia Complication Comment: Post-operative progress note Anesthesia: Postop Eval II Evaluation Mental status: Awake and Calm Pain Level: 0 nausea: No Vomiting: No Progress Note Post-operative progress note: from 12/26/2024 Complications Anesthesia Complication: No
--- NOTE | 2025-01-21 16:32 | PCM.POSTANE2 ---
Anesthesia Postop Eval I Sum Postop Eval Completion status Anesthesia document: Postop Eval 1 completed: Yes Anesthesia Postop Eval I Summary Anesthesia Postop Eval I Summary: Anesthesia Postop Eval I: Assessment Summary Airway patent Yes 12/26/24 10:26 INFORMATION CLERK [email or web address].[email or web address] Spontaneous unlabored Yes 12/26/24 10:26 INFORMATION CLERK BROKERAGE.GILBERT respirations Mental status Awake,Calm 12/26/24 10:26 INFORMATION CLERK BROKERAGE.MAYNOROBY nausea No 12/26/24 10:26 INFORMATION CLERK BROKERAGE.MAYNOROBY Vomiting No 12/26/24 10:26 INFORMATION CLERK BROKERAGE.MAYNOROBIsreal Anesthesia Postop Eval I: Fluid Summary Crystalloid volume administer 1,900 12/26/24 10:26 INFORMATION CLERK BROKERAGE.SKOBY (ml) Colloids volume administered ( ml) Blood Product volume administered (ml) Total IV fluid infused 1,900 12/26/24 10:26 INFORMATION CLERK BROKERAGE.MAYNOROBIsreal Anesthesia Postop Eval I: Summary Notes Anesthesia Complication No 12/26/24 10:26 INFORMATION CLERK BROKERAGE.GILBERT Anesthesia Complication Comment: Post-operative progress note Anesthesia: Postop Eval II Evaluation Mental status: Awake and Calm Pain Level: 0 nausea: No Vomiting: No Progress Note Post-operative progress note: from 12/26/2024 Complications Anesthesia Complication: No
== END 2024-12-28 13:53 | disposition home or self-care (01) | DRG 330 ==
LOC: MS3 17:53
PROVIDERS: Anesthesiology; Student in an Organized Health Care Education/Training Program; Admitting Provider Surgery; PCP Family Medicine Geriatric Medicine; Referring Provider Surgery; Visit Provider Surgery
PROC: 0DTF4ZZ Resection of Right Large Intestine, Percutaneous Endoscopic Approach (ICD-10-PCS; CPT 44205; principal; 2024-12-26 07:10)
DX: D12.0 Benign neoplasm of cecum (principal); Z68.1 Body mass index [BMI] 19.9 or less, adult; I47.20 Ventricular tachycardia, unspecified; J44.9 Chronic obstructive pulmonary disease, unspecified; D64.9 Anemia, unspecified; E89.0 Postprocedural hypothyroidism; R63.4 Abnormal weight loss; D12.2 Benign neoplasm of ascending colon; E78.5 Hyperlipidemia, unspecified; D12.5 Benign neoplasm of sigmoid colon; N40.0 Benign prostatic hyperplasia without lower urinary tract symptoms; Z79.82 Long term (current) use of aspirin; Z79.899 Other long term (current) drug therapy; Z87.891 Personal history of nicotine dependence
CPT/HCPCS: 36415; 80048; 82962; 83735; 84439; 84443; 84481; 85025; 88309; 93005; 93308; 94640; 94668; Q9957; A4216; J0525; J0666; J2405; J3475

== ENCOUNTER → 2024-12-31 | Outpatient (CLI) | payer MEDICARE, SELFPAY ==
[2024-12-31 11:36] LABS: Hematocrit 36.0 % (40-54); Hemoglobin 11.4 g/dL (13.0-16.5)
== END | disposition home or self-care (01) ==
LOC: LAB 11:04
PROVIDERS: PCP Family Medicine Geriatric Medicine; Referring Provider Surgery; Visit Provider Surgery
DX: R19.5 Other fecal abnormalities (principal)
CPT/HCPCS: 36415; 85014; 85018

== ENCOUNTER → 2025-01-06 | Outpatient (CLI) | payer MEDICARE, SELFPAY ==
[2025-01-06 11:36] LABS: Hematocrit 38.9 % (40-54); Hemoglobin 11.6 g/dL (13.0-16.5); Immature Granulocytes Count 0.030 X10^3/uL (0.0-0.0); Mean Corp Hgb Conc 29.8 g/dL (32-36); Mean Corpuscular Volume 74.7 fL (80-94); Mean Platelet Vol. 10.0 fl (6.2-12.0); NRBC Flagged by Analyzer 0 % (0-5); POSITIVE MORPHOLOGY YES; Platelet Count 323 K/mm3 (150-450); RBC Distribution Width CV 22.5 % (11.6-14.6); RBC Distribution Width SD 59.0 fl (35.1-43.9); Red Blood Count 5.21 M/mm3 (4.6-6.2); White Blood Count 7.0 K/mm3 (4.4-11.0)
[2025-01-06 11:38] LABS: Differential Indicated SCAN CRITERIA MET
[2025-01-06 12:15] LABS: Anisocytosis 1+
== END | disposition home or self-care (01) ==
LOC: POLAB3 11:24
PROVIDERS: PCP Family Medicine Geriatric Medicine; Visit Provider Family Medicine Geriatric Medicine
DX: I10 Essential (primary) hypertension (principal)
CPT/HCPCS: 36415; 85025

== ENCOUNTER → 2025-01-15 | Outpatient (CLI) | payer MEDICARE, SELFPAY ==
[2025-01-15 12:07] LABS: Red Blood Cells-Urine 0 SEEN /hpf (0-5)
[2025-01-15 12:29] LABS: Color, Urine Yellow (Yellow); Glucose, Dipstick Normal (Normal); Ketone-Dipstick Negative (Negative); Leukocyte Esterase-Dipstick 100 /ul (Negative); Nitrite-Dipstick Negative (Negative); Occult Blood-Urine 10 /ul (Negative); Protein-Dipstick 15 mg/dl (Negative); Specific Gravity, Urine 1.020 (1.002-1.030); Urine Bilirubin Dipstick Negative (Negative)
[2025-01-15 13:03] LABS: Mucous, Urine RARE /hpf (<or=2+); Squamous Epithelial Cells - UA 0-5 SEEN /hpf (0-5)
== END | disposition home or self-care (01) ==
LOC: POLAB3 12:05
PROVIDERS: PCP Family Medicine Geriatric Medicine; Visit Provider Family Medicine Geriatric Medicine
DX: N39.0 Urinary tract infection, site not specified (principal)
CPT/HCPCS: 81001; 87086

== ENCOUNTER → 2025-01-17 | Outpatient (CLI) | payer MEDICARE, SELFPAY | END | disposition home or self-care (01) | LOC: PSN 11:59 | PROVIDERS: PCP Family Medicine Geriatric Medicine; Referring Provider Student in an Organized Health Care Education/Training Program; Visit Provider Student in an Organized Health Care Education/Training Program | DX: I48.0 Paroxysmal atrial fibrillation (principal); R00.1 Bradycardia, unspecified | CPT/HCPCS: 93225; 93226 ==

== ENCOUNTER → 2025-03-18 | Outpatient (CLI) | payer MEDICARE, SELFPAY ==
[2025-03-18 10:14] LABS: Hematocrit 27.1 % (40-54); Hemoglobin 7.8 g/dL (13.0-16.5); Immature Granulocytes Count 0.090 X10^3/uL (0.0-0.0); Mean Corp Hgb Conc 28.8 g/dL (32-36); Mean Corpuscular Volume 72.7 fL (80-94); Mean Platelet Vol. 10.0 fl (6.2-12.0); NRBC Flagged by Analyzer 0 % (0-5); POSITIVE DIFFERENTIAL YES; Platelet Count 466 K/mm3 (150-450); RBC Distribution Width CV 17.6 % (11.6-14.6); RBC Distribution Width SD 46.0 fl (35.1-43.9); Red Blood Count 3.73 M/mm3 (4.6-6.2); White Blood Count 12.8 K/mm3 (4.4-11.0)
[2025-03-18 10:16] LABS: Differential Indicated SCAN CRITERIA MET
[2025-03-18 11:16] LABS: AST(SGOT) 17 U/L (<=37); Alanine Aminotransfer ALT/SGPT 15 U/L (<=46); Albumin, Serum 4.0 g/dL (3.4-4.8); Alkaline Phosphatase 87 U/L (40-129); Anion Gap 9 (7-18); BUN 20 mg/dL (4-19); BUN/Creat Ratio 26.2 RATIO (10-20); Calcium,Total 9.0 mg/dL (7.6-11.0); Carbon Dioxide 24.4 mmol/L (20.0-29.0); Chloride 109 mmol/L (96-106); Cholesterol 143 mg/dL (<=200); Globulin 2.2 g/dL (2.2-4.2); Glucose 106 mg/dL (70-99); Low Density Lipoprotein Calc. 47 mg/dL; Potassium 3.8 mmol/L (3.5-5.1); Triglycerides 51 mg/dL; Very Low Density Lipoprotein 10 mg/dL (5-40); Vitamin D,25 Hydroxy 27.5 ng/mL (30-100); cholesterol:hdl ratio screen 1.69
[2025-03-18 18:00] LABS: Xtra Tube Kwok EXTRA TUBE
== END | disposition home or self-care (01) ==
LOC: POLAB3 09:59
PROVIDERS: PCP Family Medicine Geriatric Medicine; Visit Provider Family Medicine Geriatric Medicine
DX: E03.9 Hypothyroidism, unspecified (principal); E55.9 Vitamin D deficiency, unspecified; E78.5 Hyperlipidemia, unspecified; I10 Essential (primary) hypertension
CPT/HCPCS: 36415; 80053; 80061; 82306; 84443; 85025

== ENCOUNTER 2025-03-19 08:18 | Outpatient (CLI) | payer MEDICARE, SELFPAY ==
--- OUTSIDE RECORDS SUMMARY | 2025-03-19 08:25 | XMS RPT_ITS | CCD ---
Author Organization [facility] Care Team Providers Care Churn Tender Name Role Phone Jatin CHEN, Denzel Primary Care Provider Tony Auguste MD, Micah Unavailable Jatin, Dr. Alexander Sanford Primary Care Provider Jatin, Dr. Alexander Sanford Referring Provider Taurus MCGRATH, RONNIE Sanchez Attending Provider Jatin, Dr. Alexander Sanford Primary Care Provider [phone] Jatin, Dr. Alexander Sanford Referring Provider Dr. Chemo Chacon Attending Provider Dr. Marcelino Nolen Attending Provider [phone] Jatin, Dr. Alexander Sanford Primary Care Provider [phone] Jatin, Dr. Alexander Sanford Referring Provider Jatin , Denzel Primary Care Provider [phone] Tony Auguste MD, Micah Unavailable [phone] JATIN, DENZEL Primary Care Unavailable DEAN BEDOYA Attending Unavailable DEAN BEDOYA Referring Unavailable JATIN, DENZEL Referring Unavailable DEAN BEDOYA Attending Unavailable JATIN, DENZEL Primary Care Unavailable Jatin, Dr. Alexander Sanford Primary Care Provider Jatin, Dr. Alexander Sanford Referring Provider Dr. Alejandro Machado Attending Provider Dr. Alejandro Machado Referring Provider Jatin, Dr. Alexander Sanford Primary Care Provider [phone] Dr. Alejandro Machado Attending Provider Jatin, Dr. Alexander Sanford Referring Provider Jatin, Dr. Alexander Sanford Primary Care Provider Jatin, Dr. Alexander Sanford Referring Provider Carter, Dr. Allen Attending Provider Gregory Rodriguez MD Attending Provider Bloomfield DO, Dr. Allen Attending Provider Bloomfield DO, Dr. Allen Referring Provider Jatin CHEN, Dr. Alexander Sanford Primary Care Provider Jatin CEHN, Dr. Alexander Sanford Attending Provider Tony CHEN, Dr. Micah Auguste Attending Provider Tony CEHN, Dr. Micah Auguste Referring Provider Jatin CHEN, Dr. Alexander Sanford Referring Provider Jatin CHEN, Dr. Alexander Sanford Primary Care Provider Carter AGUILAR, Dr. Allen Attending Provider Bloomfield DO, Dr. Allen Referring Provider Jatin CHEN, Dr. Alexander Sanford Primary Care Provider [phone] Jatin CHEN, Dr. Alexander Sanford Attending Provider Dr. Sánchez Pena MD Attending Provider Laura Araujo Attending Provider Jatin CHEN, Dr. Alexander Sanford Primary Care Provider [phone] Renetta CHEN, Dr. Deni Hickey Attending Provider Parth CHEN, Dr. Salinas Attending Provider Jessie Monsivais Attending Provider Jatin CHEN, Dr. Alexander Sanford Primary Care Provider [phone] Jatin CHEN, Dr. Alexander Sanford Referring Provider Jatin CHEN, Dr. Alexander Sanford Attending Provider Hernandez MD, Florentin R Primary Care Provider Micah Forrest Unavailable King APRIL, Dr. Benson Attending Provider King APRIL, Dr. Benson Referring Provider Jatin CHEN, Dr. Alexander Sanford Primary Care Provider [phone] Carter AGUILAR, Dr. Allen Attending Provider Carter AGUILAR, Dr. Allen Referring Provider Jatin, Alexander Sanford Primary Care Provider [phone] Jatin CHEN, Dr. Alexander Sanford Primary Care Provider Jatin CHEN, Dr. Alexander Sanford Referring Provider Carter AGUILAR, Dr. Allen Attending Provider Dotty CHEN, Dr. Amor Attending Provider SAURAV MACHUCA Attending Unavailable JATIN, ALEXANDER CHI Primary Care Unavailable SAURAV MACHUCA Referring Unavailable JATIN, ALEXANDER CHI Primary Care Unavailable SAURAV MACHUCA Attending Unavailable VALERIE GAITAN Referring Unavailable JATIN, ALEXANDER CHI Primary Care Unavailable VALERIE GAITAN [...] Physician Dotty CHEN, Dr. Amor Nurse Practitioner Jatin CHEN, Dr. Alexander Sanford Primary Care Physician [phone] Jatin CHEN, Dr. Alexander Sanford Referring Provider Jatin CHEN, Dr. Alexander Sanford Attending Physician [phone] Jatin CHEN, Dr. Alexander Sanford Primary Care Physician Jatin CHEN, Dr. Alexander Sanford Referring Provider Dotty CHEN, Dr. Amor Admitting Physician Dotty CHEN, Dr. Amor Referring Provider Marcos CHEN, Dr. Velásquez Nurse Practitioner Natalia CHEN, Dr. Caitlin Morel Attending Physician [phone] Natalia CHEN, Dr. Caitlin Morel Nurse Practitioner Todd CHEN, Dr. Pineda Attending Physician Jatin CHEN, Dr. Alexander Sanford Primary Care Physician [phone] Jatin CHEN, Dr. lAexander Sanford Referring Provider Jatin CHEN, Dr. Alexander Sanford Attending Physician Todd CHEN, Dr. Pineda Attending Physician Ray Conn Attending Physician Ray Conn Referring Provider [phone] Alejandro Machado Attending Unavailable Alejandro Machado Referring Unavailable Jatin, Alexander Chi Primary Care Unavailable Robotham, Zuleyma Attending Unavailable Jatin, Alexander Chi Primary Care Unavailable Robotham, Zuleyma Referring Unavailable Jatin, Alexander Chi Attending Unavailable Jatin, Alexander Chi Primary Care Unavailable Jatin, Alexander Chi Primary Care Unavailable Miriam Brooks Attending Unavailabl e Jatin, Alexander Chi Primary Care Unavailable Callum, Marcelino Referring Unavailable Callum, Marcelino Attending Unavailable Jatin, Alexander Chi Primary Care Unavailable Alejandro Machado Attending Unavailable Carter, Alejandro Referring Unavailable Jatin, Alexander Chi Attending Unavailable Jatin, Alexander Chi Primary Care Unavailable Jatin, Alexander Chi Attending Unavailable Jatin, Alexander Chi Primary Care Unavailable Ray Howell Referring Unavailable Ray Howell Attending Unavailable Jatin, Alexander Chi Primary Care [...] Micah V Referring Unavailable Sibilia, Micah V Attending Unavailable Jatin, Alexander Chi Primary Care Unavailable Jatin, Alexander Chi Attending Unavailable Jatin, Alexander Chi Primary Care Unavailable Jatin, Alexander Chi Referring Unavailable Jatin, Alexander Chi Primary Care Unavailable Jatin, Alexander Chi Attending Unavailable Jatin, Alexander Chi Referring Unavailable Jatin, Alexander Chi Primary Care Unavailable Robotham, Zuleyma Attending Unavailable Jatin, Alexander Chi Referring Unavailable DeHorta, Didier Consulting Unavailable Jatin, Alexander Chi Primary Care Unavailable Robotham, Zuleyma Attending Unavailable Robotham, Zuleyma Referring Unavailable Robotham, Zuleyma Admitting Unavailable Koram, Caitlin Maria Teresa Consulting Unavailable Jatin, Alexander Chi Primary Care Unavailable Jatin, Alexander Chi Attending Unavailable Jatin, Alexander Chi Attending Unavailable Jatin, Alexander Chi Primary Care Unavailable Jatin, Alexander Chi Primary Care Unavailable CarterAlejandro borrero Attending Unavailable Carter, Alejandro Referring Unavailable Jatin, Alexander Chi Primary Care Unavailable Jatin, Alexander Chi Attending Unavailable Jatin, Alexander Chi Referring Unavailable Jatin, Alexander Chi Primary Care Unavailable Jatin, Alexander Chi Attending Unavailable Jatin, Alexander Chi Referring Unavailable DeHorta, Didier Consulting Unavailable Jatin, Alexander Chi Primary Care Unavailable Koram, Caitlin Maria Teresa Attending Unavailable Robotham, Zuleyma Referring Unavailable Robotham, Zuleyma Admitting Unavailable Koram, Caitlin Maria Teresa Consulting Unavailable Robotham, Zuleyma Consulting Unavailable Jatin, Alexander Chi Primary Care Unavailable Jatin, Alexander Chi Attending Unavailable Jatin, Alexander Chi Referring Unavailable CarterJoshe Attending Unavailable Jatin, Alexander Chi Primary Care Unavailable Jatin, Alexander Chi Primary Care Unavailable CarterJoshe Attending Unavailable Jatin, Alexander Chi Referring Unavailable Robotham, Zuleyma Attending Unavailable Jatin, Alexander Chi Primary Care Unavailable Jatin, Alexander Chi Referring Unavailable Jatin, Alexander Chi Primary Care Unavailable Laura Condon NP Attending Unavailable Jatin, Alexander Chi Referring Unavailable Robotham, Zuleyma Attending Unavailable Jatin, Alexander Chi Primary Care Unavailable Jatin, Alexander Chi Referring Unavailable Robotham, Zuleyma Attending Unavailable Jatin, Alexander Chi Primary Care Unavailable Jatin, Alexander Chi Referring Unavailable Jatin, Alexander Chi Primary Care Unavailable Jessie Moreno Attending Unavailable Jatin, Alexander Chi Referring Unavailable Jatin, Alexander Chi Primary Care Unavailable Alejandro Machado Attending Unavailable Jatin, Alexander Chi Referring Unavailable Gregory Rodriguez Attending Unavailable Robotham, Zuleyma Attending Unavailable Jatin, Alexander Chi Primary Care Unavailable Didier Rodríguez Consulting Unavailable Koram, Caitlin Maria Teresa Attending Unavailable Robotham, Zuleyma Admitting Unavailable Robotham, Zuleyma Referring Unavailable Koram, Caitlin Maria Teresa Consulting Unavailable Robotham, Zuleyma Consulting Unavailable Jatin, Alexander Chi Primary Care Unavailable Sánchez Pena Attending Unavailable Jatin, Alexander Chi Referring Unavailable Jatin, Alexander Chi Primary Care Unavailable Rita Alba Attending Unavailable Jatin, Alexander Chi Primary Care Unavailable Robotham, Zuleyma Attending Unavailable Robotham, Zuleyma Consulting Unavailable Jatin, Alexander Chi Referring Unavailable Jatin, [...] Care Unavailable Jatin, Alexander Chi Referring Unavailable Medications Current Medications Medication Drug Class(es) [...] mL as instructed. Active Albuterol 90 mcg/actuation aerosol (10 sources) Start: 12-02-2024 Albuterol 90 m cg/actuation aerosol Active 90 ug INHALATION NEEDED as needed for COPD December 02, 2024 12:00am Complies with drug therapy Start: 12-02-2024 Start: 12-02-2024 Albuterol 90 m cg/actuation aerosol Active 90 ug INHALATION NEEDED as needed for COPD December 02, 2024 12:00am Start: 12-02-2024 Albuterol 90 m cg/actuation aerosol Active ug INHALATION December 02, 2024 12:00am aspirin 81 mg delayed release oral tablet (20 sources) Platelet Aggregation Inhibitor, Nonsteroidal Anti-inflammatory Drug Start: 01-27-2016 take 1 tablet by mouth once daily atorvastatin 40 mg oral tablet (20 sources) HMG-CoA Reductase Inhibitor Start: 01-07-2025 take 1 table t by mouth at bedtime Start: 01-07-2025 take 1 tablet by antoine th at bedtime Start: 12-02-2024 End: 01-07-2025 Atorvastatin (Lipitor) 80 mg tablet Discontinued 60 mg PO AT BEDTIME December 02, 2024 12:00am January 07, 2025 1:00pm CHOLESTEROL Start: 2024 End: 12-02-2024 take 1 tablet by mouth at bedtime Atorvastatin (Lipitor) 80 mg tablet Discontinued 80 mg PO AT BEDTIME 30 2024 12:00am December 02, 2024 9:15am Start: 10-14-2020 End: 10-21-2024 take 1 tablet by mouth once daily Atorvastatin 20 mg tablet Discontinued 20 mg PO DAILY 90 October 14, 2020 12:00am October 21, 2024 10:11am Calcium Carbonate / Vitamin D (7 sources) Calcium Carbonat e-Vitamin D (CALCIUM 600+D PO) Take by mouth daily. 0 Active clopidogrel 75 mg oral tablet (2 sources) P2Y12 Platelet Inhibitor Start: 01-08-20 take 1 tablet by mouth once daily Start: 01-07-2025 take 1 tablet by mouth once da jose de jesus ketorolac tromethamine 5 mg/ml ophthalmic solution (2 sources) Nonsteroidal Anti-inflammatory Drug, Cyclooxygenase Inhibitor Start: 08-20-2020 take 1 drop(s) into the eye(s) four times daily ketorolac 0.5 % Solution ophthalmic solution INSTILL 1 DROP INTO RIGHT EYE (SURGICAL EYE) 4 TIMES DAILY STARTING DAY OF SURGERY IMMEDIATELY FOLLOWING SURGERY 0 08/20/2020 Active levothyroxine sodium 0.112 mg oral tablet (20 sources) l-Thyroxine Start: 11-28-2023 take 1 tablet by mouth [...] PO 1 daily, 2 on Sundays; Start: 01-04-2021 End: 04-20-2021 Levothyroxine 75 mcg [...] DAILY December 11, 2022 11:00pm Multivitamin tablet (20 sources) Start: 12-12-2022 Multivitamin t ablet Active 1 {tbl} PO DAILY December 12, 2022 12:00am SUPPLEMENT Complies with drug therapy Start: 12-12-2022 Start: 12-12-2022 Multivitamin t ablet [...] Start: 05-25-2019 take 1 capsule by mouth at dinner Start: 08-22-2012 Omeprazole (MA ILOSEC) 40 mg capsule Take 1 capsule by mouth 1-2 times daily. 60 capsule 5 08/22/2012 Active polyethylene glycol 3350 [id number] mg / potassium chloride 2970 mg / sodium bicarbonate 6740 mg / sodium chloride 5860 mg / sodium sulfate 71691 mg powder for oral solution (2 sources) [...] 0.4 mg oral capsule (20 sources) alpha-Adrenergic Boom Start: 04-20-2021 traMADol hydrochloride 50 mg oral tablet (3 sources) Opioid Agonist Start: 12-28-2024 take 1 tablet by mouth every four hours as needed for pain Completed/Discontinued Medications Medication Drug Class(es) Dates Sig [...] oral tablet (20 sources) Dihydropyridine Calcium Channel Boom Start: 10-14-2020 End: 11-28-2023 take 1 tablet by mouth once daily Amlodipine 10 mg tablet Discontinued 10 mg PO DAILY 90 3 October 14, 2020 12:00am November 28, 2023 10:29am amoxicillin 875 mg / clavulanate 125 mg oral tablet (20 sources) Penicillin-class Antibacterial Start: 10-05-2023 End: 11-28-2023 Amoxicillin-Pot Clavulanate 875-125 mg tablet Discontinued 1 {tbl} PO TWICE A DAY October 05, 2023 12:00am November 28, 2023 10:29am baclofen 10 mg oral tablet (20 sources) gamma-Aminobutyric Acid-ergic Agonist Start: 11-28-2023 End: [...] only - Pharmaceutical Waste: Aerosol -, Intraprocedure budesonide 0.125 mg/ml inhalation suspension (20 sources) Corticosteroid Start: 10-20-2021 End: 12-20-2024 take 0.25 mg by inhalation twice daily Budesonide 0.25 mg/2 mL suspension for nebulization Discontinued 0.25 mg INHALATION TWICE A DAY October 20, 2021 12:00am December 20, 2024 10:32am COPD take 2 mL by inhalation twice da [...] mg oral tablet (20 sources) alpha-Adrener gic Boom, beta-Adrenerg ic Boom Start: 09-16-2020 End: 10-14-2020 take 1 tablet [...] 12-02-2022 fentaNYL (SUBLIMAZE) injecti on 0-300 mcg finasteride 5 mg oral tablet (20 sources) 5-alpha Reductase Inhibitor Start: 11-15-2023 End: 12-26-2024 take 1 tablet by mouth once daily Finasteride 5 mg tablet Discontinued 5 mg PO DAILY November 15, 2023 12:00am December 26, 2024 12:20pm BPH Fluticasone-Umeclidi n-Vilanter (20 sources) Anticholinergic, Corticosteroid, beta2-Adrenergic Agonist Start: 10-05-2023 End: 11-28-2023 Fluticasone-Umeclid in-Vilanter (Trelegy Ellipta) 100-62.5-25 mcg blister with device Discontinued 1 NMA INHALATION DAILY October 05, 2023 12:00am November 28, 2023 10:29am formoterol fumarate 0.01 mg/ml inhalation solution (6 sources) beta2-Adrenergic Agonist Start: 11-28-2023 End: 2024 [...] 2023 12:00am gabapentin 100 mg oral capsule (20 sources) Anti-epileptic Agent Start: 10-04-2023 End: 08-29-2024 [...] oral tablet (20 sources) Angiotensin 2 Receptor Boom Start: 04-26-2022 End: 07-05-2022 Losartan 50 mg [...] 0 Active meloxicam 7.5 mg oral tablet (20 sources) Nonsteroidal Anti-inflammatory Drug Start: 10-04-2023 End: 08-29-2024 take 1 tablet by mouth once daily Meloxicam 7.5 mg tablet Discontinued 7.5 mg PO DAILY October 04, 2023 12:00am August 29, 2024 9:31am On Hold: pt not taking metoprolol tartrate 25 mg oral tablet (20 sources) beta-Adrenergic Boom Start: 10-14-2020 End: 10-14-2020 take 1 tablet [...] 2019 9:06am metroNIDAZOLE 500 mg oral tablet (8 sources) Nitroimidazole Antimicrobial Start: 12-04-2024 End: 12-06-2024 [...] 0-10 mg mirtazapine 7.5 mg oral tablet (20 sources) Start: 11-15-2023 End: 11-28-2023 take 1 tablet by mouth at bedtime Mirtazapine 7.5 mg tablet Discontinued 7.5 mg PO AT BEDTIME November 15, 2023 12:00am November 28, 2023 10:30am neomycin sulfate 500 mg oral tablet (8 sources) Aminoglycoside Antibacterial Start: 12-04-2024 End: 12-06-2024 [...] 2024 2:15pm revefenacin 0.0583 mg/ml inhalation solution (20 sources) Start: 11-28-2023 End: 2024 Revefenacin (Yupelri) 175 mcg/3 mL solution for nebulization Discontinued ug INHALATION November 28, 2023 12:00am 2024 2:15pm Sod Sulf-Pot Chloride-Mag Sulf (12 sources) Start: 12-16-2024 End: 12-26-2024 take 1.479 tablets by mouth once Sod Sulf-Pot Chloride-Mag Sulf (Sutab) 1.479-0.188- 0.225 gram tablet Discontinued 0 PO per package directions 1 December 16, 2024 12:00am December 26, 2024 10:20am PO PER PKG DIR Start: 12-16-2024 take 1.479 tablets b y mouth once Start: 12-04-2024 End: 12-06-2024 take 1.479 tablets by mouth once Sod Sulf-Pot Chloride-Mag Sulf (Sutab) 1.479-0.188- 0.225 gram tablet Discontinued 0 PO per package directions 1 December 04, 2024 12:00am December 06, 2024 9:13am PO PER PKG DIR 10 ml sodium chloride 9 mg/ml injection (1 source) Start: 11-11-2020 End: 11-11-2020 sodium chloride (PF) 0.9 % injection 1-100 mL terazosin 1 mg oral capsule (20 sources) alpha-Adrenergic Boom Start: 04-18-2019 End: 12-26-2024 take 1 capsule by mouth once daily Terazosin 1 mg capsule Discontinued 1 mg PO DAILY April 18, 2019 1:00am December 26, 2024 10:20am BPH valACYclovir 1000 mg oral tablet (20 sources) [...] sources) Bisphosphonate Start: 08-07-2021 End: 2024 Zoledronic Fzil-Vssgmueq-Eqqbi 5 mg/100 mL piggyback Discontinued 1 NMA .Route ONCE 100 0 July 16, 2024 3:52pm 2024 2:15pm infuse over 20 minutes Start: 07-23-2020 End: 09-16-2020 Zoledronic Myva-Csfaqwfx-Ann er 5 mg/100 mL piggyback Discontinued 1 [...] lung] Onset: 5 12-12-2022 Chronic Cardiac dysrhythmias (1 source) Paroxysmal atrial fibrillation; Translations: [Paroxysmal atrial fibrillation] Onset: 5 Chronic Cardiac dysrhythmias (20 sources) Bradycardia; Translations: [...] coronary artery; 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 Deficiency and other anemia (18 sources) Anemia; Translations: [Anemia, unspecified] 12-04-2024 Episodic Deficiency and other anemia (1 source) Anemia, unspecified; Translations: [Anemia, unspecified] Onset: Episodic Deficiency and other anemia (2 sources) Deficiency and other anemia Disorders of lipid metabolism (20 sources) Mixed hyperlipidemia; Translations: [Mixed hyperlipidemia] Chronic Esophageal disorders (20 sources) Gastroesophageal reflux disease; Translations: [Gastro-esophageal reflux disease without esophagitis] Onset: 3 10-14-2020 Chronic Essential hypertension (20 sources) Essential hypertension; Translations: [Essential (primary) hypertension] Onset: Chronic Comment on above: controlled with med Neoplasms of unspecified nature or uncertain behavior (20 sources) 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; Translations: [Neoplasm of uncertain behavior of skin] 10-04-2023 Episodic Comment on above: s/p right hemicolect franck due to multiple polyps 12/26/24 Nutritional deficiencies (20 sources) Vitamin D deficiency; [...] after completed treatment for malignant neoplasm] Onset: Episodic Other and unspecified benign neoplasm (20 sources) Benign tumor of external ear; Translations: [Other benign neoplasm of skin of unspecified ear and external auricular canal] 10-11-2023 Episodic Other and unspecified benign neoplasm (20 sources) Benign adenomatous neoplasm; Translations: [Benign neoplasm, unspecified site] 11-20-2024 Episodic Comment on above: right cecal unresect ed due to size at colonoscopy Other and unspecified benign neoplasm (20 sources) Polyp of sigmoid colon; Translations: [Polyp of colon] 11-20-2024 Episodic Other and unspecified benign neoplasm (2 sources) Benign neoplasm, unspecified site; Translations: [Tubulovillous adenoma] Onset: 5 Episodic Other and unspecified benign neoplasm (3 sources) Polyp of colon; Translations: [Multiple polyps of sigmoid colon] Onset: 5 Episodic Other and unspecified benign neoplasm (1 source) Benign neoplasm of cecum; Translations: [Benign neoplasm of cecum] Onset: 5 Episodic Other circulatory disease (20 [...] digestive system] 09-30-2024 Episodic Other gastrointestinal disorders (2 sources) Other fecal abnormalities; Translations: [Fecal occult blood test positive] Onset: 5 Episodic Other gastrointestinal disorders (1 source) Personal history of other diseases of the digestive system; Translations: [History of Matute's esophagus] Onset: 5 Episodic Other gastrointestinal disorders (4 sources) Dark stools; Translations: [Other fecal abnormalities] Episodic Other injuries and conditions due to external causes (20 sources) Delayed healing of wound; Translations: [Other [...] Translations: [Abnormal weight loss] 09-30-2024 Episodic Other screening for suspected conditions (not [...] Translations: [Family history of colon cancer] Onset: 5 Episodic Residual codes; unclassified (12 sources) History of partial resection of colon; Translations: [Acquired absence of other specified parts of digestive tract] 12-27-2024 Episodic Comment on above: laparoscopic assiste d-12/26/24 due to multiple tubulovillous polyps Residual codes; unclassified (1 source) Acquired absence of other specified parts of digestive tract; Translations: [Acquired absence of other specified parts of digestive tract] Onset: 5 Episodic Screening and history of mental health and substance abuse codes (1 source) Ex-smoker; Translations: [Personal history of nicotine dependence] Episodic Thyroid disorders (20 sources) Thyroid nodule; Translations: [Nontoxic single thyroid nodule] 10-20-2020 Chronic Comment on above: questionable thyroid cancer bilateral thyroid no dules biopsy 09/16/20 Urinary tract infections (1 source) Urinary tract infection, site not specified; Translations: [Urinary tract infection, site not specified] Onset: 5 Episodic Past or Other Problems Problem Classification [...] [Right shoulder pain] Onset: 02-19-2024 08-25-2023 Episodic Other nutritional; endocrine; and metabolic disorders (2 sources) Abnormal weight loss; Translations: [Unintentional weight loss] Onset: 10-08-2024 Episodic Residual codes; unclassified (1 source) Chills (without fever); Translations: [Chills (without fever)] Onset: 04-18-2024 Episodic Syncope (1 source) Syncope and collapse; Translations: [Syncope and collapse] Onset: 09-29-2024 Episodic Results Test Name Value Interpretation Reference Range Facility [id number] 01-21-2025 MR/POSTOPAN2 Normal [facility] Urine Cultureon 01-16-2025 URC Culture exhibits no growth. Normal [facility] Comment on above: Performed By: #### L 400.0001, M100.2200 ####[facility] [id number] [place], [place], [id number] Bilirubin Test strip Ql (U)O rdered By: Alexander Steiner on 01-15-2025 Bilirubin Ql (U) Negative Negative [facility] Ketones Test strip Ql (U)Ord ered By: Alexander Steiner on 01-15-2025 Ketones Ql (U) Negative Negative [facility] Microscopic analysis of urin e for red blood cells (RBC)Ordered By: Alexander Steiner on 01-15-2025 Microscopic analysis of urine for red blood cells (RBC) 0 SEEN /hpf 0-5 [facility] Mucus LM Ql (Urine sed)Order ed By: Alexander Steiner on 01-15-2025 Mucus Ql (Urine sed) RARE /hpf [facility] Nitrite Test strip Ql (U)Ord ered By: Alexander Steiner on 01-15-2025 Nitrite Ql (U) Negative Negative [facility] Protein Test strip Ql (U)Ord ered By: Alexander Steiner on 01-15-2025 Protein Ql (U) 15 mg/dl High Negative [facility] Squamous epithelial cells de tection in urine sediment by light microscopyOrdered By: Alexander Steiner on 01-15-2025 Epithelial cells.squamous LM Ql (Urine sed) 0-5 SEEN /hpf 0-5 [facility] Urinalysis, Completeon 01-15 BACTERIA 1+ /hpf Normal None Seen [facility] Comment on above: Order Comment: Urine , Random Performed By: #### L 400.0001, ####[facility] [id number] [place], [address] EPI,SQUAMOUS 0-5 SEEN Normal 0-5 [facility] Comment on above: Order Comment: Urine , Random Performed By: #### L 400.0001, ####[facility] [id number] [place], [address] Mucus Ql (Urine sed) RARE Normal [facility] Comment on above: Order Comment: Urine , Random Performed By: #### L 400.0001, ####[facility] [id number] [place], [address] WBC 5-10 SEEN Normal 0-5 [facility] Comment on above: Order Comment: Urine , Random Performed By: #### L 400.0001, M100.0 ####[facility] [id number] [place], [address] RBC 0 SEEN Normal 0-5 [facility] Comment on above: Order Comment: Urine , Random Performed By: #### L 400.0001, M100.0 ####[facility] [id number] [place], [address] Urine clarityOrdered By: Alexander Steiner on 01-15-2025 Clarity (U) Clear Clear [facility] Urine color determinationOrd ered By: Alexander Steiner on 01-15-2025 Color (U) Yellow Yellow [facility] Urine cultureOrdered By: Alexander Steiner on 01-15-2025 Bacteria identified Cx Nom (U) Culture exhibits no growth. [facility] Urine glucose detectionOrder ed By: Alexander Steiner on 01-15-2025 Glucose Ql (U) Normal mg/dl Normal [facility] Urine leukocyte esterase det ection by dipstickOrdered By: Alexander Steiner on 01-15-2025 Leukocyte esterase Test strip Ql (U) 100 /ul High Negative [facility] Urine pHOrdered By: Alexander Steiner on 01-15-2025 pH (U) 6.0 [pH] 5.0 - 8.0 [facility] Urine sediment bacteria coun t by microscopy (number/high power field)Ordered By: Alexander Steiner on 01-15-2025 Bacteria LM.HPF (Urine sed) [#/Area] 1 /[HPF] None Seen [facility] Urine specific gravity measu rementOrdered By: Alexander Steiner on 01-15-2025 Specific gravity (U) [Rel density] 1.020 1.002-1.030 [facility] Urine urobilinogen measureme ntOrdered By: Alexander Steiner on 01-15-2025 Urobilinogen Ql (U) Normal mg/dl Normal [facility] White blood cell countOrdere d By: Alexander Steiner on 01-15-2025 White blood cell count 5-10 SEEN /hpf 0-5 [facility] Surgery Visit Reporton 01-10 Surgery Visit Report Normal [facility] Absolute lymphocyte countOrd ered By: Alexander Steiner on 01-06-2025 Lymphocytes Auto (Unsp spec) [#/Vol] 0.81 10*3/uL Low 0.83-4.51 [facility] Absolute neutrophil countOrd ered By: Alexander Steiner on 01-06-2025 Neutrophils (Bld) [#/Vol] 4.9 10*3/uL 2.0-7.7 [facility] Automated lymphocyte count a s percentage of total leukocytesOrdered By: Alexander Steiner on 01-06-2025 Lymphocytes/100 WBC Auto (Unsp spec) 11.6 % Low 19-41 [facility] Basophil percentageOrdered B y: Alexander Steiner on 01-06-2025 Basophils/100 WBC (Bld) 0.9 % 0-1 [facility] CBC W/Diff, Automatedon 12-25 Anisocytosis Ql (Bld) 1+ Normal [facility] Comment on above: Performed By: #### L 100.0100 ####[facility] [address] [place], [address] Eosinophil percentageOrdered By: Alexander Steiner on 01-06-2025 Eosinophils/100 WBC (Bld) 2.7 % 0-5 [facility] Erythrocyte distribution wid th ratioOrdered By: Alexander Steiner on 01-06-2025 Erythrocyte distribution width (RBC) [Ratio] 22.5 % High 11.6-14.6 [facility] Erythrocyte distribution wid th standard deviationOrdered By: Alexander Steiner on 01-06-2025 Erythrocyte distribution width (RBC) [Ratio] 59.0 fl High 35.1-43.9 [facility] Hematocrit Auto (Bld) [Volum e fraction]Ordered By: Alexander Jatin on 01-06-2025 Hematocrit (Bld) [Volume fraction] 38.9 % Low 40-54 [facility] Hemoglobin measurementOrdere d By: Alexander Steiner on 01-06-2025 Hemoglobin (Bld) [Mass/Vol] 11.6 g/dL Low 13.0-16.5 [facility] Immature granulocytes/100 WB C Auto (Bld)Ordered By: Alexander Jatin on 01-06-2025 Immature granulocytes/100 WBC (Bld) 0.400 % 0.0-0.9 [facility] Comment on above: IG% - Immature Granu locytes (promyelocytes, myelocytes and metamyelocytes) > 1% indicates that a LEFT SHIFT is Present. Laboratory - Hematology and Cell countsOrdered By: Alexander Packerok on 01-06-2025 Anisocytosis Ql (Bld) 1+ [facility] MCV (mean corpuscular volume ) determinationOrdered By: Alexander Packerok on 01-06-2025 MCV (RBC) [Entitic vol] 74.7 fL Low 80-94 [facility] Mean corpuscular hemoglobin (MCH) determinationOrdered By: Alexander Steiner on 01-06-2025 MCH (RBC) [Entitic mass] 22.3 pg Low 27.0-32.0 [facility] Mean corpuscular hemoglobin concentration (MCHC) determinationOrdered By: Alexander Steiner on 01-06-2025 MCHC (RBC) [Mass/Vol] 29.8 g/dL Low 32-36 [facility] Mean platelet volume determi nationOrdered By: Alexander Steiner on 01-06-2025 Platelet mean volume (Bld) [Entitic vol] 10.0 fL 6.2-12.0 [facility] Monocyte percentageOrdered B y: Alexander Packerok on 01-06-2025 Monocytes/100 WBC (Bld) 13.5 % High 0-10 [facility] Neutrophil percentageOrdered By: Alexander Steiner on 01-06-2025 Neutrophils/100 WBC (Bld) 70.9 % High 47-70 [facility] Nucleated red blood cell per centageOrdered By: Alexander Steiner on 01-06-2025 Nucleated RBC/100 WBC (Bld) [Ratio] 0 % 0-5 [facility] Platelet countOrdered By: Emmett Steiner on 01-06-2025 Platelets (Bld) [#/Vol] 323 10*3/uL 150-450 [facility] RBC Auto (Bld) [#/Vol]Ordere d By: Alexander Steiner on 01-06-2025 RBC (Bld) [#/Vol] 5.21 10*6/uL 4.6-6.2 [facility] White blood cell (WBC) count Ordered By: Alexander Steiner on 01-06-2025 WBC (Bld) [#/Vol] 7.0 10*3/uL 4.4-11.0 [facility] Surgery Visit Reporton 01-03 Surgery Visit Report Normal [facility] HH, Hemoglobin AND Hematocri ton 12-31-2024 Hematocrit (Bld) [Volume fraction] 36.0 % Low 40-54 [facility] Comment on above: Performed By: #### L 100.0600 ####[facility] [address] [place], [place], [phone] Hemoglobin (Bld) [Mass/Vol] 11.4 g/dL Low 13.0-16.5 [facility] Comment on above: Performed By: #### L 100.0600 ####[facility] [address] [place], [place], [phone] Hematocrit Auto (Bld) [Volum e fraction]Ordered By: Zuleyma Storm on 12-31-2024 Hematocrit (Bld) [Volume fraction] 36.0 % Low 40-54 [facility] Hemoglobin measurementOrdere d By: Zuleyma Storm on 12-31-2024 Hemoglobin (Bld) [Mass/Vol] 11.4 g/dL Low 13.0-16.5 [facility] Absolute lymphocyte countOrd ered By: Zuleyma Storm on 12-28-2024 Lymphocytes Auto (Unsp spec) [#/Vol] 0.90 10*3/uL 0.83-4.51 [facility] Absolute neutrophil countOrd ered By: Zuleymacorazon Storm on 12-28-2024 Neutrophils (Bld) [#/Vol] 6.1 10*3/uL 2.0-7.7 [facility] Anion gap in Serum or Plasma Ordered By: Zuleyma Storm on 12-28-2024 Anion gap [Moles/Vol] 11 mmol/L 5-15 [facility] Automated lymphocyte count a s percentage of total leukocytesOrdered By: Zuleyma Storm on 12-28-2024 Lymphocytes/100 WBC Auto (Unsp spec) 11.2 % Low 19-41 [facility] BUN/creatinine ratioOrdered By: Zuleyma Storm on 12-28-2024 Urea nitrogen/Creatinine [Mass ratio] 10.9 mg/mg 10- [facility] Basic Metabolic Profile (BMP )on 12-28-2024 BUN/CRE 10.9 RATIO Normal - [facility] Comment on above: Performed By: #### L 100.0100, L500.2500 ####[facility] [address] [place], [address] Calcium [Mass/Vol] 8.2 mg/dL Normal 7.6-11.0 [facility] Comment on above: Performed By: #### L 100.0100, L500.2500 ####[facility] [address] [place], [address] Chloride [Moles/Vol] 107 mmol/L Normal 98-108 [facility] Comment on above: Performed By: #### L 100.0100, L500.2500 ####[facility] [address] [place], [address] CO2 [Moles/Vol] 22.5 mmol/L Normal 21.0-32.0 [facility] Comment on above: Performed By: #### L 100.0100, L500.2500 ####[facility] [address] [place], [address] Creatinine [Mass/Vol] 0.61 mg/dL Low 0.70-1.20 [facility] Comment on above: Performed By: #### L 100.0100, L500.2500 ####[facility] [address] [place], [address] ECRCL 51.35 ml/min Normal 50-250 [facility] Comment on above: Performed By: #### L 100.0100, L500.2500 ####[facility] [address] [place], [address] GAP 11 Normal 5-15 [facility] Comment on above: Performed By: #### L 100.0100, L500.2500 ####[facility] [address] [place], [address] GFR/1.73 sq M.predicted among non-blacks MDRD (S/P/Bld) [Vol rate/Area] 96 mL/min/{1.73_m2} Normal >60 [facility] Comment on above: Result Comment: mL/m in/1.73m2 CKD-EPI Creatinine Equation (2020) Performed By: #### L 100.0100, L500.2500 ####[facility] [address] [place], [address] Glucose [Mass/Vol] 77 mg/dL Normal 70-99 [facility] Comment on above: Performed By: #### L 100.0100, L500.2500 ####[facility] [address] [place], [address] Potassium [Moles/Vol] 3.6 mmol/L Normal 3.3-5.1 [facility] Comment on above: Performed By: #### L 100.0100, L500.2500 ####[facility] [address] [place], [address] Sodium [Moles/Vol] 141 mmol/L Normal 133-145 [facility] Comment on above: Performed By: #### L 100.0100, L500.2500 ####[facility] [address] [place], [address] Urea nitrogen [Mass/Vol] 7 mg/dL Normal 4-19 [facility] Comment on above: Performed By: #### L 100.0100, L500.2500 ####[facility] [address] [place], [address] Basophil percentageOrdered B y: Zuleyma Storm on 12-28-2024 Basophils/100 WBC (Bld) 0.7 % 0-1 [facility] CBC W/Diff, Automatedon 10-0 Anisocytosis Ql (Bld) RARE Normal [facility] Comment on above: Performed By: #### L 100.0100, L500.2500 ####[facility] [address] [place], [address] Carbon dioxide, total [Moles /volume] in Central venous bloodOrdered By: Zuleyma Storm on 12-28-2024 CO2 [Moles/Vol] 22.5 mmol/L 21.0-32.0 [facility] Chloride assayOrdered By: Emmett Storm on 12-28-2024 Chloride [Moles/Vol] 107 mmol/L 98-108 [facility] Eosinophil percentageOrdered By: Zuleyma Storm on 12-28-2024 Eosinophils/100 WBC (Bld) 1.5 % 0-5 [facility] Erythrocyte distribution wid th ratioOrdered By: Zuleyma Storm on 12-28-2024 Erythrocyte distribution width (RBC) [Ratio] 21.7 % High 11.6-14.6 [facility] Erythrocyte distribution wid th standard deviationOrdered By: Zuleymacorazon Storm on 12-28-2024 Erythrocyte distribution width (RBC) [Ratio] 55.8 fl High 35.1-43.9 [facility] Glomerular filtration rate ( GFR) estimation/1.73 sq m using serum, plasma, or whole bOrdered By: Zuleyma Storm on 12-28-2024 GFR/1.73 sq M.predicted among non-blacks MDRD (S/P/Bld) [Vol rate/Area] 96 mL/min/{1.73_m2} >60 [facility] Comment on above: mL/min/1.73m2 CKD-EP I Creatinine Equation (2020) Hematocrit Auto (Bld) [Volum e fraction]Ordered By: Zuleyma Storm on 12-28-2024 Hematocrit (Bld) [Volume fraction] 33.4 % Low 40-54 [facility] Hemoglobin measurementOrdere d By: Zuleyma Storm on 12-28-2024 Hemoglobin (Bld) [Mass/Vol] 10.4 g/dL Low 13.0-16.5 [facility] Immature granulocytes/100 WB C Auto (Bld)Ordered By: Zuleyma Storm on 12-28-2024 Immature granulocytes/100 WBC (Bld) 0.200 % 0.0-0.9 [facility] Comment on above: IG% - Immature Granu locytes (promyelocytes, myelocytes and metamyelocytes) > 1% indicates that a LEFT SHIFT is Present. Laboratory - Hematology and Cell countsOrdered By: Zuleyma Storm on 12-28-2024 Anisocytosis Ql (Bld) RARE [facility] MCV (mean corpuscular volume ) determinationOrdered By: Zuleyma Storm on 12-28-2024 MCV (RBC) [Entitic vol] 72.3 fL Low 80-94 [facility] Magnesiumon 12-28-2024 Magnesium [Mass/Vol] 1.9 mg/dL Normal 1.5-2.2 [facility] Comment on above: Performed By: #### L 501.5200 ####[facility] [address] [place], [address] Magnesium measurement (mass/ volume)Ordered By: Caitlin Fisher on 12-28-2024 Magnesium (Unsp spec) [Mass/Vol] 1.9 mg/dL 1.5-2.2 [facility] Mean corpuscular hemoglobin (MCH) determinationOrdered By: Zuleyma Storm on 12-28-2024 MCH (RBC) [Entitic mass] 22.5 pg Low 27.0-32.0 [facility] Mean corpuscular hemoglobin concentration (MCHC) determinationOrdered By: Zuleyma Storm on 12-28-2024 MCHC (RBC) [Mass/Vol] 31.1 g/dL Low 32-36 [facility] Mean platelet volume determi nationOrdered By: Zuleyma Storm on 12-28-2024 Platelet mean volume (Bld) [Entitic vol] 9.8 fL 6.2-12.0 [facility] Monocyte percentageOrdered B y: Zuleyma Storm on 12-28-2024 Monocytes/100 WBC (Bld) 11.1 % High 0-10 [facility] Neutrophil percentageOrdered By: Zuleyma Storm on 12-28-2024 Neutrophils/100 WBC (Bld) 75.3 % High 47-70 [facility] Nucleated red blood cell per centageOrdered By: Zuleyma Storm on 12-28-2024 Nucleated RBC/100 WBC (Bld) [Ratio] 0 % 0-5 [facility] Platelet countOrdered By: Emmett Storm on 12-28-2024 Platelets (Bld) [#/Vol] 377 10*3/uL 150-450 [facility] Potassium measurement (mass/ volume)Ordered By: Zuleyma Storm on 12-28-2024 Potassium (Unsp spec) [Mass/Vol] 3.6 mmol/L 3.3-5.1 [facility] RBC Auto (Bld) [#/Vol]Ordere d By: Zuleyma Storm on 12-28-2024 RBC (Bld) [#/Vol] 4.62 10*6/uL 4.6-6.2 [facility] Serum creatinine measurement (mass/volume)Ordered By: Zuleyma Storm on 12-28-2024 Creatinine [Mass/Vol] 0.61 mg/dL Low 0.70-1.20 [facility] Serum glucose measurement (m ass/volume)Ordered By: Zuleyma Storm on 12-28-2024 Glucose [Mass/Vol] 77 mg/dL 70-99 [facility] Serum or plasma calcium maddie urement (mass/volume)Ordered By: Zuleyma Storm on 12-28-2024 Calcium [Mass/Vol] 8.2 mg/dL 7.6-11.0 [facility] Serum or plasma urea nitroge n measurement (mass/volume)Ordered By: Zuleyma Storm on 12-28-2024 Urea nitrogen [Mass/Vol] 7 mg/dL 4-19 [facility] Sodium levelOrdered By: Luma Storm on 12-28-2024 Sodium [Moles/Vol] 141 mmol/L 133-145 [facility] White blood cell (WBC) count Ordered By: Zuleyma Storm on 12-28-2024 WBC (Bld) [#/Vol] 8.0 10*3/uL 4.4-11.0 [facility] Basic Metabolic Profile (BMP )on 12-27-2024 BUN/CRE 11.4 RATIO Normal 10-20 [facility] Comment on above: Performed By: #### L 100.0100, L500.2500 ####[facility] [address] [place], [address] Calcium [Mass/Vol] 8.2 mg/dL Normal 7.6-11.0 [facility] Comment on above: Performed By: #### L 100.0100, L500.2500 ####[facility] [address] [place], [address] Chloride [Moles/Vol] 109 mmol/L High 98-108 [facility] Comment on above: Performed By: #### L 100.0100, L500.2500 ####[facility] [address] [place], [address] CO2 [Moles/Vol] 21.6 mmol/L Normal 21.0-32.0 [facility] Comment on above: Performed By: #### L 100.0100, L500.2500 ####[facility] [address] [place], [address] Creatinine [Mass/Vol] 0.66 mg/dL Low 0.70-1.20 [facility] Comment on above: Performed By: #### L 100.0100, L500.2500 ####[facility] [address] [place], [address] ECRCL 51.35 ml/min Normal 50-250 [facility] Comment on above: Performed By: #### L 100.0100, L500.2500 ####[facility] [address] [place], [address] GAP 11 Normal 5-15 [facility] Comment on above: Performed By: #### L 100.0100, L500.2500 ####[facility] [address] [place], [address] GFR/1.73 sq M.predicted among non-blacks MDRD (S/P/Bld) [Vol rate/Area] 94 mL/min/{1.73_m2} Normal >60 [facility] Comment on above: Result Comment: mL/m in/1.73m2 CKD-EPI Creatinine Equation (2020) Performed By: #### L 100.0100, L500.2500 ####[facility] [address] [place], [address] Glucose [Mass/Vol] 145 mg/dL High 70-99 [facility] Comment on above: Performed By: #### L 100.0100, L500.2500 ####[facility] [address] [place], [address] Potassium [Moles/Vol] 4.1 mmol/L Normal 3.3-5.1 [facility] Comment on above: Performed By: #### L 100.0100, L500.2500 ####[facility] [address] [place], [address] Sodium [Moles/Vol] 142 mmol/L Normal 133-145 [facility] Comment on above: Performed By: #### L 100.0100, L500.2500 ####[facility] [address] [place], [address] Urea nitrogen [Mass/Vol] 7 mg/dL Normal 4-19 [facility] Comment on above: Performed By: #### L 100.0100, L500.2500 ####[facility] [address] [place], [address] CBC W/Diff, Automatedon 10-0 Anisocytosis Ql (Bld) 1+ Normal [facility] Comment on above: Performed By: #### L 100.0100, L500.2500 ####[facility] [address] [place], [address] Limited echocardiogram repor tOrdered By: Miriam Brooks on 12-27-2024 Study report [facility] [address] [place] [address] Echo, Limited Study 12/27/24 09 MR#: [id number] Acct: [id number] Name: MARGAUX SANDERSON Rep #:[id number] : 1940 84 From: Miriam mistry MD Attending Dr: Dr. Zuleyma Storm MD Status: ADM IN Ordering Dr: Caitlin Fisher MD Date: 12/26/24 [place] [facility] [place] M C Admitted: 12/27/24 Reason For Study Reason For Study: Arrhythmia Procedure This was a limited 2D transthoracic echocardiogram. Exam performed portable in patient room. Left Ventricle Normal LV size. The estimated ejection fraction is 55 %. Unable to assess diastolic dysfunction. No regional wall motion abnormalities noted. Right Ventricle Normal RV size. Normal systolic function. Atria The left and right atria are normal. Mitral Valve There is no mitral valve stenosis. No mitral valve insufficiency. Tricuspid Valve There is no tricuspid stenosis. Trivial tricuspid valve insufficiency. Aortic Valve There is no aortic stenosis. No aortic valve insufficiency. Pulmonic Valve The pulmonic valve is not well visualized. Pericardium/Pleural No pericardial effusion. MMode/2D Measurements & Calculations LVIDd: 5.1 cm IVSd: 0.77 cm LVAd ap4: 29.9 cm2 LVIDs: 4.0 cm LVPWd: 0.74 cm LVLd ap4: 7.7 cm FS: 21.5 % EDV(MOD-sp4): 95.7 ml EDV(sp4-el): 98.4 ml LVAs ap4: 19.4 cm2 LVLs ap4: 7.1 cm ESV(MOD-sp4): 48.7 ml ESV(sp4-el): 45.3 ml EF(MOD-sp4): 49.1 % EF(sp4-el): 54.0 % SV(MOD-sp4): 47.0 ml SV(sp4-el): 53.1 ml SI(MOD-sp4): 29.7 ml/m2 ECHO/Echo, Limited Study Interpretation Summary The estimated ejection fraction is 55 %. Ordering Physician: Caitlin Fisher Referring Physician: Zuleyma Storm Performed By: Ashwin Menard RCS 12/27/24 1237 Date _ Miriam Brooks MD CC: Dr. Caitlin Fisher MD; Dr. Alexander Steiner MD; Dr. Zuleyma Storm MD ~ Date Dictated: 12/27/24901 Date Transcribed: 12/27/24 123 Hide Grader: Signed [facility] Work Phone: [phone] Lead EKGon 12-26-2024 12 Lead EKG Normal [facility] Basic Metabolic Profile (BMP )on 12-26-2024 BUN/CRE 11.7 RATIO Normal -20 [facility] Comment on above: Performed By: #### L 501.5200, L500.2500, L501.9520, L501.66947, L506.0400 ####[facility] [address] [place], [place], [id number] Calcium [Mass/Vol] 7.9 mg/dL Normal 7.6-11.0 [facility] Comment on above: Performed By: #### L 501.5200, L500.2500, L501.9520, L501.51192, L506.0400 ####[facility] [address] [place], [address] Chloride [Moles/Vol] 107 mmol/L Normal 98-108 [facility] Comment on above: Performed By: #### L 501.5200, L500.2500, L501.9520, L501.37749, L506.0400 ####[facility] [address] [place], [address] CO2 [Moles/Vol] 21.2 mmol/L Normal 21.0-32.0 [facility] Comment on above: Performed By: #### L 501.5200, L500.2500, L501.9520, L501.56963, L506.0400 ####[facility] [address] [place], [address] Creatinine [Mass/Vol] 0.70 mg/dL Normal 0.70-1.20 [facility] Comment on above: Performed By: #### L 501.5200, L500.2500, L501.9520, L501.62280, L506.0400 ####[facility] [address] [place], [address] ECRCL 51.35 ml/min Normal 50-250 [facility] Comment on above: Performed By: #### L 501.5200, L500.2500, L501.9520, L501.57431, L506.0400 ####[facility] [address] [place], [address] GAP 11 Normal 5-15 [facility] Comment on above: Performed By: #### L 501.5200, L500.2500, L501.9520, L501.33178, L506.0400 ####[facility] [address] [place], [address] GFR/1.73 sq M.predicted among non-blacks MDRD (S/P/Bld) [Vol rate/Area] 92 mL/min/{1.73_m2} Normal >60 [facility] Comment on above: Result Comment: mL/m in/1.73m2 CKD-EPI Creatinine Equation (2020) Performed By: #### L 501.5200, L500.2500, L501.9520, L501.06574, L506.0400 ####[facility] [address] [place], [address] Glucose [Mass/Vol] 141 mg/dL High 70-99 [facility] Comment on above: Performed By: #### L 501.5200, L500.2500, L501.9520, L501.34241, L506.0400 ####[facility] [address] [place], [address] Potassium [Moles/Vol] 4.0 mmol/L Normal 3.3-5.1 [facility] Comment on above: Performed By: #### L 501.5200, L500.2500, L501.9520, L501.35582, L506.0400 ####[facility] [address] [place], [address] Sodium [Moles/Vol] 139 mmol/L Normal 133-145 [facility] Comment on above: Performed By: #### L 501.5200, L500.2500, L501.9520, L501.91083, L506.0400 ####[facility] [address] [place], [address] Urea nitrogen [Mass/Vol] 8 mg/dL Normal 4-19 [facility] Comment on above: Performed By: #### L 501.5200, L500.2500, L501.9520, L501.54195, L506.0400 ####[facility] [address] [place], [address] BUN Normal 4-19 [facility] Comment on above: Result Comment: KRISTA HAILEENURSE FELISHA CORTEZ NOTIFIED AT 1212 BY LMARTELL. Performed By: #### L 500.2500 ####[facility] [address] [place], [address] BUN/CRE Normal 10-20 [facility] Comment on above: Result Comment: KRISTA DEANNURSE FELISHA NOTIFIED AT 1212 BY LMARTELL. Performed By: #### L 500.2500 ####[facility] [address] [place], [address] Calcium Normal 7.6-11.0 [facility] Comment on above: Result Comment: KRISTA DEANNURSE FELISHA NOTIFIED AT 1212 BY LMARTELL. Performed By: #### L 500.2500 ####[facility] [address] [place], [address] CL Normal 98-108 [facility] Comment on above: Result Comment: KRISTA DEANNURSE FELISHA NOTIFIED AT 1212 BY LMARTELL. Performed By: #### L 500.2500 ####[facility] [address] [place], [address] CO2 Normal 21.0-32.0 [facility] Comment on above: Result Comment: KRISTA DEAN NURSE FELISHA GENAO NOTIFIED AT 1212 BY LMARTELL. Performed By: #### L 500.2500 ####[facility] [address] [place], [address] CREAT,SERUM Normal 0.70-1.20 [facility] Comment on above: Result Comment: NURSE HERMAN FELISHA CHADWICK NOTIFIED AT 1212 BY LMARTELL. Performed By: #### L 500.2500 ####[facility] [address] [place], [address] eGFR Normal >60 [facility] Comment on above: Result Comment: KRISTA MORAN, NURSE FELISHA GENAO NOTIFIED AT 1212 BY LMLevels BeyondELL. Performed By: #### L 500.2500 ####[facility] [address] [place], [address] GAP Normal 5-15 [facility] Comment on above: Result Comment: KRISTA MORAN, NURSE FELISHA GENAO NOTIFIED AT 1212 BY LMARTELL. Performed By: #### L 500.2500 ####[facility] [address] [place], [address] GLU Normal 70-99 [facility] Comment on above: Result Comment: KRISTA MORAN, NURSE FELISHA GENAO NOTIFIED AT 1212 BY LMARTELL. Performed By: #### L 500.2500 ####[facility] [address] [place], [address] Potassium Normal 3.3-5.1 [facility] Comment on above: Result Comment: NURSE FELISHA SUTTON NOTIFIED AT 1212 BY LMLevels BeyondELL. Performed By: #### L 500.2500 ####[facility] [address] [place], [address] Basic Metabolic Profile (BMP) Normal 133-145 [facility] Comment on above: Result Comment: KRSITA MORAN, NURSE FELISHA GENAO NOTIFIED AT 1212 BY LMLevels BeyondELL. Performed By: #### L 500.2500 ####[facility] [address] [place], [address] Bedside Glucoseon 12-26-2024 FINGERSTICK GLU 106 mg/dL Normal 74-106 [facility] Comment on above: Result Comment: ZION DHAVALENT OF PATIENT CARE PER NURSING PROTOCOL Performed By: #### L 501.080 ####[facility] [address] [place], [address] Blood manual differential co mment interpretation (narrative result)Ordered By: Zuleyma Storm on 12-26-2024 Manual differential comment Arie (Bld) [Interp] SCANNED [facility] Blood polychromasia detectio n by light microscopyOrdered By: Zuleyma Storm on 12-26-2024 Polychromasia LM Ql (Bld) RARE [facility] CBC W/Diff, Automatedon Anisocytosis Ql (Bld) 2+ Normal [facility] Comment on above: Performed By: #### L 100.0100 ####[facility] [address] [place], [address] MICROCYTIC 1+ Normal [facility] Comment on above: Performed By: #### L 100.0100 ####[facility] [address] [place], [address] POLYCHROMASIA RARE Normal [facility] Comment on above: Performed By: #### L 100.0100 ####[facility] [address] [place], [address] SMEAR COMMENT SCANNED Normal [facility] Comment on above: Performed By: #### L 100.0100 ####[facility] [address] [place], [address] Echo, Limited Studyon 2024 Echo, Limited Study Normal [facility] Free T3on 12-26-2024 Free T3 [Mass/Vol] 2.2 pg/mL Normal 2.18-3.98 [facility] Comment on above: Performed By: #### L 501.5200, L500.2500, L501.9520, L501.34035, L506.0400 ####[facility] [address] [place], [address] Free N9Hkvhpwr By: Caitlin douglass on 12-26-2024 Free T3 [Mass/Vol] 2.2 pg/mL 2.18-3.98 [facility] Glucose measurement at bedsi deOrdered By: Zuleyma Storm on 12-26-2024 Glucose [Mass/Vol] 106 mg/dL 74-106 [facility] Comment on above: MANAGEMENT OF PATIEN T CARE PER NURSING PROTOCOL MR/POSTOP.ANEon 12-26-2024 MR/POSTOP.ANE Normal [facility] Magnesiumon 12-26-2024 Magnesium [Mass/Vol] 2.2 mg/dL Normal 1.5-2.2 [facility] Comment on above: Performed By: #### L 501.5200, L500.2500, L501.9520, L501.84246, L506.0400 ####[facility] [address] [place], [address] Operative Reporton Operative Report Normal [facility] Surgery Specimen Level VIon 12-26-2024 Surgery Specimen Level Normal [facility] Comment on above: Performed By: #### P SUVI ####[facility] [address] [place], [address] T4 Free Directon 12-26-2024 T4 FREE DIRECT 1.70 ng/dL High 0.76-1.46 [facility] Comment on above: Performed By: #### L 501.5200, L500.2500, L501.9520, L501.56413, L506.0400 ####[facility] [address] [place], [address] T4 freeOrdered By: Caitlin douglass on 12-26-2024 Free T4 [Mass/Vol] 1.70 ng/dL High 0.76-1.46 [facility] TSH DL <= 0.005 mIU/L QnOrde red By: Caitlin Fisher on 12-26-2024 TSH Qn 0.447 uIU/mL 0.300-4.200 [facility] Thyroid Stim Hormone (TSH)on 12-26-2024 TSH 0.447 uIU/mL Normal 0.300-4.200 [facility] Comment on above: Performed By: #### L 501.5200, L500.2500, L501.9520, L501.53265, L506.0400 ####[facility] [address] [place], [place], [address] MR/[id number] 12-13-2024 MR/POSTOPAN2 Normal [facility] Absolute lymphocyte countOrd ered By: [facility] on 12-11-2024 Lymphocytes Auto (Unsp spec) [#/Vol] 0.61 10*3/uL Low 0.83-4.51 [facility] Absolute neutrophil countOrd ered By: [facility] on 12-11-2024 Neutrophils (Bld) [#/Vol] 4.7 10*3/uL 2.0-7.7 [facility] Automated lymphocyte count a s percentage of total leukocytesOrdered By: [facility]ymacorazon [facility] on 12-11-2024 Lymphocytes/100 WBC Auto (Unsp spec) 9.4 % Low 19-41 [facility] Basophil percentageOrdered B y: [facility] on 12-11-2024 Basophils/100 WBC (Bld) 1.4 % High 0-1 [facility] CBC W/Diff, Automatedon 11-25 Anisocytosis Ql (Bld) RARE Normal [facility] Comment on above: Performed By: #### L 100.0100 ####[facility] [address] [place], [address] Colonoscopy Reporton 025 Colonoscopy Report Normal [facility] Eosinophil percentageOrdered By: [facility] on 12-11-2024 Eosinophils/100 WBC (Bld) 3.5 % 0-5 [facility] Erythrocyte distribution wid th ratioOrdered By: [facility] on 12-11-2024 Erythrocyte distribution width (RBC) [Ratio] 21.2 % High 11.6-14.6 [facility] Erythrocyte distribution wid th standard deviationOrdered By: [facility] on 12-11-2024 Erythrocyte distribution width (RBC) [Ratio] 55.2 fl High 35.1-43.9 [facility] Frozen Section (charge)on Frozen Section (charge) Normal [facility] Comment on above: Performed By: #### P FSC ####[facility] [address] [place], [address] Hematocrit Auto (Bld) [Volum e fraction]Ordered By: Zuleyma Storm on 12-11-2024 Hematocrit (Bld) [Volume fraction] 35.0 % Low 40-54 [facility] Hemoglobin measurementOrdere d By: Zuleyma Storm on 12-11-2024 Hemoglobin (Bld) [Mass/Vol] 10.8 g/dL Low 13.0-16.5 [facility] Immature granulocytes/100 WB C Auto (Bld)Ordered By: Zuleyma Storm on 12-11-2024 Immature granulocytes/100 WBC (Bld) 0.500 % 0.0-0.9 [facility] Comment on above: IG% - Immature Granu locytes (promyelocytes, myelocytes and metamyelocytes) > 1% indicates that a LEFT SHIFT is Present. Laboratory - Hematology and Cell countsOrdered By: Zuleyma Storm on 12-11-2024 Anisocytosis Ql (Bld) RARE [facility] MCV (mean corpuscular volume ) determinationOrdered By: Zuleyma Storm on 12-11-2024 MCV (RBC) [Entitic vol] 73.5 fL Low 80-94 [facility] MR/OP.PROVATon 12-11-2024 MR/OP.PROVAT Normal [facility] MR/POSTOP.ANEon 12-11-2024 MR/POSTOP.ANE Normal [facility] MR/[id number] 12-11-2024 MR/POSTOPAN2 Normal [facility] Mean corpuscular hemoglobin (MCH) determinationOrdered By: Zuleyma Storm on 12-11-2024 MCH (RBC) [Entitic mass] 22.7 pg Low 27.0-32.0 [facility] Mean corpuscular hemoglobin concentration (MCHC) determinationOrdered By: Zuleyma Storm on 12-11-2024 MCHC (RBC) [Mass/Vol] 30.9 g/dL Low 32-36 [facility] Mean platelet volume determi nationOrdered By: Zuleyma Storm on 12-11-2024 Platelet mean volume (Bld) [Entitic vol] 10.0 fL 6.2-12.0 [facility] Monocyte percentageOrdered B y: Zuleyma Storm on 12-11-2024 Monocytes/100 WBC (Bld) 12.4 % High 0-10 [facility] Neutrophil percentageOrdered By: Zuleyma Storm on 12-11-2024 Neutrophils/100 WBC (Bld) 72.8 % High 47-70 [facility] Nucleated red blood cell per centageOrdered By: Zuleyma Storm on 12-11-2024 Nucleated RBC/100 WBC (Bld) [Ratio] 0 % 0-5 [facility] Platelet countOrdered By: Emmett Storm on 12-11-2024 Platelets (Bld) [#/Vol] 266 10*3/uL 150-450 [facility] RBC Auto (Bld) [#/Vol]Ordere d By: Zuleyma Storm on 12-11-2024 RBC (Bld) [#/Vol] 4.76 10*6/uL 4.6-6.2 [facility] White blood cell (WBC) count Ordered By: Zuleyma Storm on 12-11-2024 WBC (Bld) [#/Vol] 6.5 10*3/uL 4.4-11.0 [facility] CBC W/Diff, Automatedon 11-25 Anisocytosis Ql (Bld) 1+ Normal [facility] Comment on above: Order Comment: SEND H H TO DR. STEINER Performed By: #### L 100.0100 ####[facility] [address] [place], [place], [address] Magnesiumon 12-09-2024 Magnesium [Mass/Vol] 2.0 mg/dL Normal 1.5-2.2 [facility] Comment on above: Performed By: #### L 501.5200 ####[facility] [address] [place], [place], [id number] MR/PAT.ANEon 12-06-2024 MR/PAT.ANE Normal [facility] MR/PAT.ANE Normal [facility] MR/PAT.ANE Normal [facility] MR/PAT.ANE Normal [facility] Surgery Visit Reporton 12-04 Surgery Visit Report Normal [facility] Absolute lymphocyte countOrd ered By: Alexander Steiner on 12-03-2024 Lymphocytes Auto (Unsp spec) [#/Vol] 0.83 10*3/uL 0.83-4.51 [facility] Absolute neutrophil countOrd ered By: Alexander Steiner on 12-03-2024 Neutrophils (Bld) [#/Vol] 6.0 10*3/uL 2.0-7.7 [facility] Automated lymphocyte count a s percentage of total leukocytesOrdered By: Alexander Steiner on 12-03-2024 Lymphocytes/100 WBC Auto (Unsp spec) 10.2 % Low 19-41 [facility] Basophil percentageOrdered B y: Alexander Steiner on 12-03-2024 Basophils/100 WBC (Bld) 1.0 % 0-1 [facility] CBC W/Diff, Automatedon Absolute Lymph 0.83 X10 3/uL Normal 0.83-4.51 [facility] Comment on above: Performed By: #### L 100.0100 ####[facility] [address] [place], [address] Absolute Neut 6.0 X10 3/uL Normal 2.0-7.7 [facility] Comment on above: Performed By: #### L 100.0100 ####[facility] [address] [place], [address] Basophils/100 WBC (Bld) 1.0 % Normal 0-1 [facility] Comment on above: Performed By: #### L 100.0100 ####[facility] [address] [place], [address] Eosinophils/100 WBC (Bld) 2.8 % Normal 0-5 [facility] Comment on above: Performed By: #### L 100.0100 ####[facility] [address] [place], [address] Erythrocyte distribution width (RBC) [Ratio] 19.5 % High 11.6-14.6 [facility] Comment on above: Performed By: #### L 100.0100 ####[facility] [address] [place], [address] Hematocrit (Bld) [Volume fraction] 36.3 % Low 40-54 [facility] Comment on above: Performed By: #### L 100.0100 ####[facility] [address] [place], [address] Hemoglobin (Bld) [Mass/Vol] 11.4 g/dL Low 13.0-16.5 [facility] Comment on above: Performed By: #### L 100.0100 ####[facility] [address] [place], [address] IG% 0.200 Normal 0.0-0.9 [facility] Comment on above: Result Comment: IG% - Immature Granulocytes (promyelocytes, myelocytes andmetamyelocytes) > 1% indicates that a LEFT SHIFT is Present. Performed By: #### L 100.0100 ####[facility] [address] [place], [address] Lymphocytes/100 WBC (Bld) 10.2 % Low 19-41 [facility] Comment on above: Performed By: #### L 100.0100 ####[facility] [address] [place], [address] MCH (RBC) [Entitic mass] 22.9 pg Low 27.0-32.0 [facility] Comment on above: Performed By: #### L 100.0100 ####[facility] [address] [place], [address] MCHC (RBC) [Mass/Vol] 31.4 g/dL Low 32-36 [facility] Comment on above: Performed By: #### L 100.0100 ####[facility] [address] [place], [address] MCV (RBC) [Entitic vol] 72.9 fL Low 80-94 [facility] Comment on above: Performed By: #### L 100.0100 ####[facility] [address] [place], [address] Monocytes/100 WBC (Bld) 13.0 % High 0-10 [facility] Comment on above: Performed By: #### L 100.0100 ####[facility] [address] [place], [address] Neutrophils/100 WBC (Bld) 72.8 % High 47-70 [facility] Comment on above: Performed By: #### L 100.0100 ####[facility] [address] [place], [address] Nucleated RBC (Bld) [#/Vol] 0 10*3/uL Normal 0-5 [facility] Comment on above: Performed By: #### L 100.0100 ####[facility] [address] [place], [address] Platelet mean volume (Bld) [Entitic vol] 9.8 fL Normal 6.2-12.0 [facility] Comment on above: Performed By: #### L 100.0100 ####[facility] [address] [place], [address] Platelets (Bld) [#/Vol] 319 10*3/uL Normal 150-450 [facility] Comment on above: Performed By: #### L 100.0100 ####[facility] [address] [place], [address] RBC (Bld) [#/Vol] 4.98 10*6/uL Normal 4.6-6.2 [facility] Comment on above: Performed By: #### L 100.0100 ####[facility] [address] [place], [address] RDW SD 50.1 fl High 35.1-43.9 [facility] Comment on above: Performed By: #### L 100.0100 ####[facility] [address] [place], [address] WBC (Bld) [#/Vol] 8.2 10*3/uL Normal 4.4-11.0 [facility] Comment on above: Performed By: #### L 100.0100 ####[facility] [address] [place], [address] Eosinophil percentageOrdered By: Alexander Steiner on 12-03-2024 Eosinophils/100 WBC (Bld) 2.8 % 0-5 [facility] Erythrocyte distribution wid th ratioOrdered By: [facility] Erythrocyte distribution width (RBC) [Ratio] 19.5 % High 11.6-14.6 [facility] Erythrocyte distribution wid th standard deviationOrdered By: [facility] 12-03-2024 Erythrocyte distribution width (RBC) [Ratio] 50.1 fl High 35.1-43.9 [facility] Hematocrit Auto (Bld) [Volum e fraction]Ordered By: Alexander Jatin 12-03-2024 Hematocrit (Bld) [Volume fraction] 36.3 % Low 40-54 [facility] Hemoglobin measurementOrdere d By: Alexander Steiner 12-03-2024 Hemoglobin (Bld) [Mass/Vol] 11.4 g/dL Low 13.0-16.5 [facility] Immature granulocytes/100 WB C Auto (Bld)Ordered By: [facility] 12-03-2024 Immature granulocytes/100 WBC (Bld) 0.200 % 0.0-0.9 [facility] Comment on above: IG% - Immature Granu locytes (promyelocytes, myelocytes and metamyelocytes) > 1% indicates that a LEFT SHIFT is Present. MCV (mean corpuscular volume ) determinationOrdered By: Alexander Steiner 12-03-2024 MCV (RBC) [Entitic vol] 72.9 fL Low 80-94 [facility] Mean corpuscular hemoglobin (MCH) determinationOrdered By: Alexander Packerok on 12-03-2024 MCH (RBC) [Entitic mass] 22.9 pg Low 27.0-32.0 [facility] Mean corpuscular hemoglobin concentration (MCHC) determinationOrdered By: Alexander Jatin on 12-03-2024 MCHC (RBC) [Mass/Vol] 31.4 g/dL Low 32-36 [facility] Mean platelet volume determi nationOrdered By: Alexander Packerok on 12-03-2024 Platelet mean volume (Bld) [Entitic vol] 9.8 fL 6.2-12.0 [facility] Monocyte percentageOrdered B y: Alexander Jatin on 12-03-2024 Monocytes/100 WBC (Bld) 13.0 % High 0-10 [facility] Neutrophil percentageOrdered By: Alexander Packerok on 12-03-2024 Neutrophils/100 WBC (Bld) 72.8 % High 47-70 [facility] Nucleated red blood cell per centageOrdered By: Alexander Steiner on 12-03-2024 Nucleated RBC/100 WBC (Bld) [Ratio] 0 % 0-5 [facility] Platelet countOrdered By: Emmett Steiner on 12-03-2024 Platelets (Bld) [#/Vol] 319 10*3/uL 150-450 [facility] RBC Auto (Bld) [#/Vol]Ordere d By: Alexander Steiner on 12-03-2024 RBC (Bld) [#/Vol] 4.98 10*6/uL 4.6-6.2 [facility] White blood cell (WBC) count Ordered By: Alexander Steiner on 12-03-2024 WBC (Bld) [#/Vol] 8.2 10*3/uL 4.4-11.0 [facility] BRCon 11-29-2024 RC Normal [facility] Comment on above: Result Comment: [id number] OP RC TRANSFUSED 12/02/24 [id number] OP RC TRANSFUSED 12/02/24 0931 Performed By: #### B RC, M100.7900, BTS ####[facility] [address] [place], [address] Result Comment: [id number] OP RC XM [id number] OP RC XM COMPATIBLE Performed By: #### Dylon BOWLES, BTS, 79 ####[facility] [address] [place], [address] Stool Occult Blood iFOBon STOB Positive Normal [facility] Comment on above: Performed By: #### Dylon BOWLES, , BTS ####[facility] [address] [place], [address] Performed By: #### Dylon BOWLES, BTS, ####[facility] [address] [place], [address] Stool gastrointestinal hemog lobin detection by immunologic methodOrdered By: Alexander Steiner on 11-29-2024 Lower GI hemoglobin IA Ql (Stl) Positive Abnormal [facility] Type AND Screenon 11-29-2024 Ab SCREEN GEL Negative Normal [facility] Comment on above: Order Comment: NTNYA Performed By: #### Dylon BOWLES, , BTS ####[facility] [address] [place], [address] ABO and Rh group Nom (Bld) Blood group O Rh(D) positive Normal [facility] Comment on above: Order Comment: NTNYA Performed By: #### Dylon BOWLES, , BTS ####[facility] [address] [place], [address] Order Comment: A Performed By: #### Dylon BOWLES, BTS, ####[facility] [address] [place], [address] Absolute lymphocyte countOrd ered By: Alexander Steiner on 11-28-2024 Lymphocytes Auto (Unsp spec) [#/Vol] 0.97 10*3/uL 0.83-4.51 [facility] Absolute neutrophil countOrd ered By: Alexander Steiner on 11-28-2024 Neutrophils (Bld) [#/Vol] 4.5 10*3/uL 2.0-7.7 [facility] Anion gap in Serum or Plasma Ordered By: Alexander Steiner on 11-28-2024 Anion gap [Moles/Vol] 9 mmol/L 5- [facility] Automated lymphocyte count a s percentage of total leukocytesOrdered By: Alexander Steiner on 11-28-2024 Lymphocytes/100 WBC Auto (Unsp spec) 14.6 % Low 19- [facility] BUN/creatinine ratioOrdered By: Alexander Jatin on 11-28-2024 Urea nitrogen/Creatinine [Mass ratio] 11.4 mg/mg 10- [facility] Basophil percentageOrdered B y: Alexander Steiner on 11-28-2024 Basophils/100 WBC (Bld) 0.9 % 0-1 [facility] Bilirubin, totalOrdered By: Alexander Steiner on 11-28-2024 Bilirubin [Mass/Vol] 0.43 mg/dL 0.00-1.30 [facility] CBC W/Diff, Automatedon Absolute Lymph 0.97 X10 3/uL Normal 0.83-4.51 [facility] Comment on above: Performed By: #### L 100.0100, L500.4050, L300.3900 ####[facility] [address] [place], [address] Absolute Neut 4.5 X10 3/uL Normal 2.0-7.7 [facility] Comment on above: Performed By: #### L 100.0100, L500.4050, L300.3900 ####[facility] [address] [place], [address] Basophils/100 WBC (Bld) 0.9 % Normal 0-1 [facility] Comment on above: Performed By: #### L 100.0100, L500.4050, L300.3900 ####[facility] [address] [place], [address] Eosinophils/100 WBC (Bld) 2.9 % Normal 0-5 [facility] Comment on above: Performed By: #### L 100.0100, L500.4050, L300.3900 ####[facility] [address] [place], [address] Erythrocyte distribution width (RBC) [Ratio] 18.1 % High 11.6-14.6 [facility] Comment on above: Performed By: #### L 100.0100, L500.4050, L300.3900 ####[facility] [address] [place], [address] Hematocrit (Bld) [Volume fraction] 30.0 % Low 40-54 [facility] Comment on above: Performed By: #### L 100.0100, L500.4050, L300.3900 ####[facility] [address] [place], [address] Hemoglobin (Bld) [Mass/Vol] 9.0 g/dL Low 13.0-16.5 [facility] Comment on above: Performed By: #### L 100.0100, L500.4050, L300.3900 ####[facility] [address] [place], [address] IG% 0.500 Normal 0.0-0.9 [facility] Comment on above: Result Comment: IG% - Immature Granulocytes (promyelocytes, myelocytes andmetamyelocytes) > 1% indicates that a LEFT SHIFT is Present. Performed By: #### L 100.0100, L500.4050, L300.3900 ####[facility] [address] [place], [address] Lymphocytes/100 WBC (Bld) 14.6 % Low 19-41 [facility] Comment on above: Performed By: #### L 100.0100, L500.4050, L300.3900 ####[facility] [address] [place], [address] MCH (RBC) [Entitic mass] 21.1 pg Low 27.0-32.0 [facility] Comment on above: Performed By: #### L 100.0100, L500.4050, L300.3900 ####[facility] [address] [place], [address] MCHC (RBC) [Mass/Vol] 30.0 g/dL Low 32-36 [facility] Comment on above: Performed By: #### L 100.0100, L500.4050, L300.3900 ####[facility] [address] [place], [address] MCV (RBC) [Entitic vol] 70.4 fL Low 80-94 [facility] Comment on above: Performed By: #### L 100.0100, L500.4050, L300.3900 ####[facility] [address] [place], [address] Monocytes/100 WBC (Bld) 13.4 % High 0-10 [facility] Comment on above: Performed By: #### L 100.0100, L500.4050, L300.3900 ####[facility] [address] [place], [address] Neutrophils/100 WBC (Bld) 67.7 % Normal 47-70 [facility] Comment on above: Performed By: #### L 100.0100, L500.4050, L300.3900 ####[facility] [address] [place], [address] Nucleated RBC (Bld) [#/Vol] 0 10*3/uL Normal 0-5 [facility] Comment on above: Performed By: #### L 100.0100, L500.4050, L300.3900 ####[facility] [address] [place], [address] Platelet mean volume (Bld) [Entitic vol] 10.1 fL Normal 6.2-12.0 [facility] Comment on above: Performed By: #### L 100.0100, L500.4050, L300.3900 ####[facility] [address] [place], [address] Platelets (Bld) [#/Vol] 354 10*3/uL Normal 150-450 [facility] Comment on above: Performed By: #### L 100.0100, L500.4050, L300.3900 ####[facility] [address] [place], [address] RBC (Bld) [#/Vol] 4.26 10*6/uL Low 4.6-6.2 [facility] Comment on above: Performed By: #### L 100.0100, L500.4050, L300.3900 ####[facility] [address] [place], [address] RDW SD 45.3 fl High 35.1-43.9 [facility] Comment on above: Performed By: #### L 100.0100, L500.4050, L300.3900 ####[facility] [address] [place], [address] WBC (Bld) [#/Vol] 6.7 10*3/uL Normal 4.4-11.0 [facility] Comment on above: Performed By: #### L 100.0100, L500.4050, L300.3900 ####[facility] [address] [place], [address] Carbon dioxide, total [Moles /volume] in Central venous bloodOrdered By: Alexander Steiner on 11-28-2024 CO2 [Moles/Vol] 23.8 mmol/L 21.0-32.0 [facility] Chloride assayOrdered By: Emmett jamey Jatin on 11-28-2024 Chloride [Moles/Vol] 108 mmol/L 98-108 [facility] Comprehensive Metabolic Prof ilon 11-28-2024 Albumin [Mass/Vol] 4.0 g/dL Normal 3.4-4.8 [facility] Comment on above: Performed By: #### L 100.0100, L500.4050, L300.3900 ####[facility] [address] [place], [address] Albumin/Globulin [Mass ratio] 1.5 {ratio} Normal 0.9-2.4 [facility] Comment on above: Performed By: #### L 100.0100, L500.4050, L300.3900 ####[facility] [address] [place], [address] ALK PHOS 129 U/L Normal 40-129 [facility] Comment on above: Performed By: #### L 100.0100, L500.4050, L300.3900 ####[facility] [address] [place], [address] ALT [Catalytic activity/Vol] 7 U/L Normal <=46 [facility] Comment on above: Performed By: #### L 100.0100, L500.4050, L300.3900 ####[facility] [address] [place], [address] AST [Catalytic activity/Vol] 25 U/L Normal <=37 [facility] Comment on above: Performed By: #### L 100.0100, L500.4050, L300.3900 ####[facility] [address] [place], [address] Bilirubin [Mass/Vol] 0.43 mg/dL Normal 0.00-1.30 [facility] Comment on above: Performed By: #### L 100.0100, L500.4050, L300.3900 ####[facility] [address] [place], [address] BUN/CRE 11.4 RATIO Normal 10-20 [facility] Comment on above: Performed By: #### L 100.0100, L500.4050, L300.3900 ####[facility] [address] [place], [address] Calcium [Mass/Vol] 9.4 mg/dL Normal 7.6-11.0 [facility] Comment on above: Performed By: #### L 100.0100, L500.4050, L300.3900 ####[facility] [address] [place], [address] Chloride [Moles/Vol] 108 mmol/L Normal 98-108 [facility] Comment on above: Performed By: #### L 100.0100, L500.4050, L300.3900 ####[facility] [address] [place], [address] CO2 [Moles/Vol] 23.8 mmol/L Normal 21.0-32.0 [facility] Comment on above: Performed By: #### L 100.0100, L500.4050, L300.3900 ####[facility] [address] [place], [address] Creatinine [Mass/Vol] 0.70 mg/dL Normal 0.70-1.20 [facility] Comment on above: Performed By: #### L 100.0100, L500.4050, L300.3900 ####[facility] [address] [place], [address] GAP 9 Normal 5-15 [facility] Comment on above: Performed By: #### L 100.0100, L500.4050, L300.3900 ####[facility] [address] [place], [address] GFR/1.73 sq M.predicted among non-blacks MDRD (S/P/Bld) [Vol rate/Area] 92 mL/min/{1.73_m2} Normal >60 [facility] Comment on above: Result Comment: mL/m in/1.73m2 CKD-EPI Creatinine Equation (2020) Performed By: #### L 100.0100, L500.4050, L300.3900 ####[facility] [address] [place], [address] Globulin (S) [Mass/Vol] 2.7 g/dL Normal 2.2-4.2 [facility] Comment on above: Performed By: #### L 100.0100, L500.4050, L300.3900 ####[facility] [address] [place], [address] Glucose [Mass/Vol] 100 mg/dL High 70-99 [facility] Comment on above: Performed By: #### L 100.0100, L500.4050, L300.3900 ####[facility] [address] [place], [address] Potassium [Moles/Vol] 4.2 mmol/L Normal 3.3-5.1 [facility] Comment on above: Performed By: #### L 100.0100, L500.4050, L300.3900 ####[facility] [address] [place], [address] Sodium [Moles/Vol] 140 mmol/L Normal 133-145 [facility] Comment on above: Performed By: #### L 100.0100, L500.4050, L300.3900 ####[facility] [address] [place], [address] T PROT 6.6 g/dL Normal 5.9-8.4 [facility] Comment on above: Performed By: #### L 100.0100, L500.4050, L300.3900 ####[facility] [address] [place], [place], [address] Urea nitrogen [Mass/Vol] 8 mg/dL Normal 4-19 [facility] Comment on above: Performed By: #### L 100.0100, L500.4050, L300.3900 ####[facility] [address] [place], [address] Eosinophil percentageOrdered By: Alexander Steiner on 11-28-2024 Eosinophils/100 WBC (Bld) 2.9 % 0-5 [facility] Erythrocyte distribution wid th ratioOrdered By: [facility]-28-2024 Erythrocyte distribution width (RBC) [Ratio] 18.1 % High 11.6-14.6 [facility] Erythrocyte distribution wid th standard deviationOrdered By: [facility] on 11-28-2024 Erythrocyte distribution width (RBC) [Ratio] 45.3 fl High 35.1-43.9 [facility] Glomerular filtration rate ( GFR) estimation/1.73 sq m using serum, plasma, or whole bOrdered By: Alexander Steiner on 11-28-2024 GFR/1.73 sq M.predicted among non-blacks MDRD (S/P/Bld) [Vol rate/Area] 92 mL/min/{1.73_m2} >60 [facility] Comment on above: mL/min/1.73m2 CKD-EP I Creatinine Equation (2020) Hematocrit Auto (Bld) [Volum e fraction]Ordered By: Alexander Steiner on 11-28-2024 Hematocrit (Bld) [Volume fraction] 30.0 % Low 40-54 [facility] Hemoglobin measurementOrdere d By: Alexander Steiner on 11-28-2024 Hemoglobin (Bld) [Mass/Vol] 9.0 g/dL Low 13.0-16.5 [facility] Immature granulocytes/100 WB C Auto (Bld)Ordered By: Alexander Steiner on 11-28-2024 Immature granulocytes/100 WBC (Bld) 0.500 % 0.0-0.9 [facility] Comment on above: IG% - Immature Granu locytes (promyelocytes, myelocytes and metamyelocytes) > 1% indicates that a LEFT SHIFT is Present. International normalized rat io (INR) calculationOrdered By: Alexander Steiner on 11-28-2024 INR Coag (Bld) [Relative time] 1.1 {INR} [facility] Laboratory - Chemistry and C hemistry - challengeOrdered By: Alexander Steiner on 11-28-2024 AST [Catalytic activity/Vol] 25 U/L <38 [facility] MCV (mean corpuscular volume ) determinationOrdered By: Alexander Steiner on 11-28-2024 MCV (RBC) [Entitic vol] 70.4 fL Low 80-94 [facility] Mean corpuscular hemoglobin (MCH) determinationOrdered By: Alexander Steiner 11-28-2024 MCH (RBC) [Entitic mass] 21.1 pg Low 27.0-32.0 [facility] Mean corpuscular hemoglobin concentration (MCHC) determinationOrdered By: Alexander Steiner 11-28-2024 MCHC (RBC) [Mass/Vol] 30.0 g/dL Low 32-36 [facility] Mean platelet volume determi nationOrdered By: Alexander Steiner 11-28-2024 Platelet mean volume (Bld) [Entitic vol] 10.1 fL 6.2-12.0 [facility] Monocyte percentageOrdered B y: Alexander Steiner 11-28-2024 Monocytes/100 WBC (Bld) 13.4 % High 0-10 [facility] Neutrophil percentageOrdered By: Alexander Steinre 11-28-2024 Neutrophils/100 WBC (Bld) 67.7 % 47-70 [facility] Nucleated red blood cell per centageOrdered By: Alexander Steiner 11-28-2024 Nucleated RBC/100 WBC (Bld) [Ratio] 0 % 0-5 [facility] Platelet countOrdered By: Emmett Steiner on 11-28-2024 Platelets (Bld) [#/Vol] 354 10*3/uL 150-450 [facility] Potassium measurement (mass/ volume)Ordered By: Alexander Steiner 11-28-2024 Potassium (Unsp spec) [Mass/Vol] 4.2 mmol/L 3.3-5.1 [facility] Prothrombin Time w/INRon INR Coag (PPP) [Relative time] 1.1 {INR} Normal [facility] Comment on above: Performed By: #### L 100.0100, L500.4050, L300.3900 ####[facility] [address] [place], [address] PT Coag (PPP) [Time] 14.0 s Normal 11.7-14.9 [facility] Comment on above: Performed By: #### L 100.0100, L500.4050, L300.3900 ####[facility] [address] [place], [address] Prothrombin timeOrdered By: Alexander Steiner on 11-28-2024 PT Coag (PPP) [Time] 14.0 s 11.7-14.9 [facility] RBC Auto (Bld) [#/Vol]Ordere d By: Alexander Steiner on 11-28-2024 RBC (Bld) [#/Vol] 4.26 10*6/uL Low 4.6-6.2 [facility] Serum creatinine measurement (mass/volume)Ordered By: Alexander Steiner on 11-28-2024 Creatinine [Mass/Vol] 0.70 mg/dL 0.70-1.20 [facility] Serum globulin measurementOr dered By: Alexander Steiner on 11-28-2024 Globulin (S) [Mass/Vol] 2.7 g/dL 2.2-4.2 [facility] Serum glucose measurement (m ass/volume)Ordered By: Alexander Steiner on 11-28-2024 Glucose [Mass/Vol] 100 mg/dL High 70-99 [facility] Serum or plasma alanine luna otransferase (ALT) measurementOrdered By: Alexander Steiner on 11-28-2024 ALT [Catalytic activity/Vol] 7 U/L <47 [facility] Serum or plasma albumin maddie urement (mass/volume)Ordered By: Alexander Steiner on 11-28-2024 Albumin [Mass/Vol] 4.0 g/dL 3.4-4.8 [facility] Serum or plasma albumin/glob ulin mass ratioOrdered By: 11-28-2024 Albumin/Globulin [Mass ratio] 1.5 {ratio} 0.9-2.4 [facility] Serum or plasma alkaline cheryl sphatase measurementOrdered By: Alexander Jatin11-28-2024 ALP [Catalytic activity/Vol] 129 U/L 40-129 [facility] Serum or plasma calcium maddie urement (mass/volume)Ordered By: Alexander Jatin on 11-28-2024 Calcium [Mass/Vol] 9.4 mg/dL 7.6-11.0 [facility] Serum or plasma urea nitroge n measurement (mass/volume)Ordered By: Jatin11-28-2024 Urea nitrogen [Mass/Vol] 8 mg/dL 4-19 [facility] Sodium levelOrdered By: 11-28-2024 Sodium [Moles/Vol] 140 mmol/L 133-145 [facility] Total proteinOrdered By: Alexander Jatin11-28-2024 Protein [Mass/Vol] 6.6 g/dL 5.9-8.4 [facility] White blood cell (WBC) count Ordered By: Alexander Jatin11-28-2024 WBC (Bld) [#/Vol] 6.7 10*3/uL 4.4-11.0 [facility] CNPNon 11-21-2024 CNPN Telephone (PHARMAJET) MARGAUX SANDERSON ([id number]) 1940 M Date Time Provider Department 11/21/24 [...] given to Leslie for Dr. Diana office and aware of request for testing to be uploaded into [facility]. Appointment scheduled for . MILO Huang Amy [...] medical clearance letter faxed to Dr. Steiner. [phone] FRANKY Villar Kimberly, LPN 11/29/2024 12:04 PM Signed Leslie called. Verified name and date of of patient. Patient has decided to have surgery done by Dr. Zuleyma Storm MD with [facility] General Surgery. They need the surgery that is recommended by Dr. Machuca, report of colonoscopy and images (Leslie will get a hold of medical records for imaging). No fax number available. Clinic number for : . MILO Huang Kimberly, LPN 11/29/2024 4:14 PM Signed José Luis Pichardo3 hours ago (12:25 PM) JM patient will need to contact medical records Called Leslie. Verified name and date of of patient. Notified. MILO Huang Kimberly, LPN 12/02/2024 9:05 AM Signed Received pre-op clearance from Dr. Castillo but patient is being seen by [place] for procedure. MILO Huang Amelia, LPN 12/02/2024 10:55 AM Signed Leslie Patient daughter called stating that she reached out to medical records and was told they are not able burn disc with photos. Please advise daughter on how to proceed. 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 No video, only photos. Ely Hernández MA Allergies As of Date: 11/21/2024 (No Known Allergies) Date Reviewed: 11/21/2024 Reviewed by: Saurav Machuca MD - Fully Assessed Reason for Visit: Patient Question [7676] Prescriptions as of 12/03/2024 - atorvastatin (LIPITOR) [...] nebulizer every 6 hours as needed. - ipratropium-albutero l (DUONEB) 0.5 mg-3 mg(2.5 mg base)/3 mL [...] Encounter Status:Closed by LEENA BOWLES on 11/29/24 [facility] CNOVon 11-20-2024 CNOV Office Visit (GENSWS) MARGAUX SANDERSON ([id number]) 1940 M Date Time Provider Department 11/20/24 11:45 AM SAURAV MACHUCA GENKALPESH During your visit today, we recorded the [...] two-step approach: 1. A repeat colonoscopy at [facility] to remove as many remaining polyps as [...] schedule the repeat colonoscopy and surgery at [facility]. You will receive instructions on the exact dates and times. - If you notice a metal clip in your stool, it is from the previous procedure and is normal. Please let us know if you have any questions or concerns as we move forward with this plan. Saurav Machuca MD 11/21/2024 6:35 AM Signed FOLLOW UP VISIT - ENDOSCOPY NAME: Margaux Sanderson [facility] NO.: [id number] DATE OF SERVICE: 11/20/2024 : 1940 REFERRING PHYSICIAN: Alexander Steiner MD Margaux is a patient I am following for recent endoscopy with significant findings. Margaux is a 84 year old male referred for endoscopy. 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 Margaux denies abdominal pain. aMrgaux denies diarrhea. Margaux notes constipation. -last 3 [...] upper lobe lung cancer. He follows with [facility]. He completed radiation in 2022. Disease is stable. He has a hx of COPD- uses duoneb daily, but no other inhalers. Is able to walk up steps AND complete activity with no issues Margaux follows with [facility]. Last OV 08/2024. He had a stress test in 2023 EF was 57% AND there was no evidence of ischemia. He CP, SOB, dizziness, palpitations, syncope, edema, recent hospitalizations Margaux has undergone prior endoscopy. Last EGD AND colonoscopy was 01/[address] Machuca at [facility]. Sedation: MAC T he entire [...] withdrawn, t (more content not included)... Normal [facility] [id number] 11-15-2024 [id number] HNO ID: [id number] Author: NIA CELESTIN RN Service: ? Author Type: Registered Nurse Type: [id number] Filed: 11/15/2024 09:44 Note Text: The patient received a copy of Colonoscopy and EGD discharge instructions that contain information for how to contact the physician who performed the procedure and when to seek medical care. Normal [facility] Colonoscopyon 11-15-2024 Colonoscopy [place] [facility] Gastrointestinal Endoscopy Patient Name: Margaux Sanderson Procedure [...] the patient. Procedure Code(s): --- Professional --- 59801, Colonoscopy, flexible; with removal of tumor(s), polyp(s), or other lesion( (more content not included)... Normal [facility] EGD Study observation Alexandrea pena 11-15-2024 [facility] Gastrointestinal Endoscopy Patient Name: Margaux Sanderson Procedure [...] 1 week. Procedure Code(s): --- Professional --- 86383, Esophagogastroduoden oscopy, flexible, transoral; with biopsy, single or multiple G0500, Moder (more content not included)... [facility] Flexible sigmoidoscopy study on 11-15-2024 [facility] Gastrointestinal Endoscopy Patient Name: Margaux Sanderson Procedure [...] otherwise wi (more content not included)... [facility] HISTORY PHYSICALon HISTORY PHYSICAL HNO ID: [id number] Author: SAURAV MACHUCA MD Service: General Surgery [...] upper lobe lung cancer. He follows with [facility]. He completed radiation in 2022. Disease is stable. He has a hx of COPD- uses duoneb daily, but no other inhalers. Is able to walk up steps AND complete activity with no issues Margaux follows with [facility]. Last OV 08/2024. He had a stress test in 2023 EF was 57% AND there was no evidence of ischemia. He CP, SOB, dizziness, palpitations, syncope, edema, recent hospitalizations Margaux has undergone prior endoscopy. Last EGD AND colonoscopy was 01/[address] Machuca at [facility]. Sedation: MAC T he entire [...] via nebulizer every 6 hours as needed. ipratropium-albutero l (DUONEB) 0.5 mg-3 mg(2.5 mg base)/3 mL [...] prep instructions from your provider. No current facility-administere d medications for this visit. ALLERGIES: Patient has no allergy information on record. 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 Normal [facility] No Panel Informationon 11-15 Radiology Study observation (narrative) [facility] Pathology biopsy report Arie (Tiss)on 11-15-2024 AP DISCLAIMER Normal [facility] Comment on above: Order Comment: Speci men Type: TISSUE SPECIMEN Ordering Facility: [facility] Address: [address] [place] [address] Result Comment: Walter olsen Developed Test (LDT) Disclaimer: Performance characteristics of immunohistochemical, immunofluorescent, and chromogenic in-situ hybridization tests have been determined by the performing laboratory within the [facility] Department of Pathology and Laboratory Medicine ([facility], [facility], [facility], [facility], [facility], [facility], or [facility]) in a manner consistent with CLIA requirements. One or more of these tests may not have been cleared or approved by the FDA. The [facility] Department of Pathology and Laboratory Medicine is regulated under CLIA as qualified to perform high-complexity testing. These tests are used for clinical purposes. These should not be regarded as investigational or for research. Positive and negative controls stain appropriately. Performed By: #### 6 6121-5 #### [facility] CLIA [id number] [address] [place] [address] [place] [facility] CLIA [id number] [address] [place] [address] [place] CASE REPORT Normal [facility] Comment on above: Order Comment: Sebastian pinon Type: TISSUE SPECIMEN Ordering Facility: [facility] Address: [address] [place] [address] Result Comment: Surg ica Pathology Report Case: [id number] Authorizing Provider: Saurav Machuca MD Collected: 11/15/2024 [...] #### 6 6121-5 #### [facility] CLIA [id number] [address] [place] [address] [place] [facility] CLIA [id number] [address] [place] [address] [place] DIAGNOSIS COMMENT Normal [facility] Comment on above: Order Comment: Sebastian pinon Type: TISSUE SPECIMEN Ordering Facility: [facility] Address: [address] [place] [address] Result Comment: A. N o Helicobacter pylori organisms are identified. B. ACG guidelines require an endoscopic abnormality that extends at least 1 cm proximal to the gastroesophageal junction in addition to a histologic finding of intestinal metaplasia in order to establish a diagnosis of Matute's esophagus. Correlation with endoscopic findings is recommended. Performed By: #### 6 6121-5 #### [facility] CLIA [id number] [address] [place] [address] LAB CLIA [id number] [address] [place] [address] FINAL DIAGNOSIS Normal [facility] Comment on above: Order Comment: Speci men Type: TISSUE SPECIMEN Ordering Facility: [facility] Address: [address] [place] [address] Result Comment: A. S tomach, biopsy: - [...] EDT Performed By: #### 6 6121-5 #### [facility] CLIA [id number] [address] [place] [address] STATES OF [facility] CLIA [id number] [address] [place] [address] FINAL PERFORMING LAB Normal [facility] Comment on above: Order Comment: Speci men Type: TISSUE SPECIMEN Ordering Facility: [facility] Address: [address] [place] [address] Result Comment: Diag nostic interpretation performed at: [facility], [address] [place] [address] CLIA# [id number] Telephone Solicitor Supervisor: Young Diaz MD Performed By: #### 6 6121-5 #### [facility] CLIA [id number] [address] [place] [address] [place] [facility] CLIA [id number] [address] [place] [address] STATES OF [facility] Normal [facility] Comment on above: Order Comment: Speci men Type: TISSUE SPECIMEN Ordering Facility: [facility] Address: [address] [place] [address] Result Comment: A. S tomach, Antrum, Biopsy [...] 2024 4:41 PM Gross examination performed at [facility], [address] [place] [address] Performed By: #### 6 6121-5 #### [facility] CLIA [id number] [address] [place] [address] [place] [facility] CLIA [id number] [address] [place] [address] [place] Upper GI endoscopyon 11-15- [facility] Upper GI endoscopy [facility] Gastrointestinal Endoscopy Patient Name: Margaux Sanderson Procedure [...] 1 week. Procedure Code(s): --- Professional --- 12217, Esophagogastroduoden oscopy, flexible, transoral; with biopsy, single or multiple G0500, Moderate sedation services provided by the same physician or other qualified health care management coordinator performing a gastrointestinal endoscopic service that sedation supports, requiring the presence of an independent trained observer to assist in the monitoring of the patient's level of consciousness and physiological status; initial 15 minutes of intra-service time; patient age 5 years or older (additional time may be reported with 92358, as appropriate) 08501, Moderate sedation; each additional 15 minutes intraservice time 80428, Moderate sedation; each additional 15 minutes intraservice time CPT copyright 2020 [employer]. All rights reserved. The codes documented in this report are preliminary and upon carbon grinder review may be revised to meet current [...] Initiated O (more content not included)... Normal [facility] XR ABDOMEN 1V SUPINEon 11-15 XR ABDOMEN [...] right lower quadrant and left upper quadrant Hide Grader: [facility] Transcribe Date/Time: Nov 22 2024 4:14P Dictated by : LYLY BOYLE MD This examination was interpreted and the report reviewed and electronically signed by: LYLY BOYLE MD on Nov 22 2024 4:15PM EST [id number] CN Normal [facility] Radiation Oncology Visiton 0 10-31-2024 Radiation Oncology Visit Normal [facility] Chest WITH Contraston 2024 Chest WITH Contrast Normal [facility] CNPNon 10-15-2024 CNPN Telephone (ASWSTR) MARGAUX SANDERSON ([id number]) 1940 M Date Time Provider Department 10/15/24 [facility] During your visit today, we recorded the following information about you: Debbie Brown 10/15/2024 8:22 AM Signed Patient daughter called and had her father drink the Golytley yesterday because she thought the colonoscopy was on 10/15/24. Please send another Golytley to the pharmacy in [place] for procedure on 11/15/24. Valerie Gaitan APRN.[facility] 10/18/2024 10:49 AM Signed Golytely sent to [facility] in [place]. Allergies As of Date: 10/15/2024 (Not on File) Date Reviewed: 09/30/2024 Reviewed by: Molly Austin RN - Fully Assessed Reason for Visit: Orders [681] Order(s):Order #: [id number] Prescriptions as of 10/18/2024 - peg 3350-Electrolytes [...] nebulizer every 6 hours as needed. - ipratropium-albutero l (DUONEB) 0.5 mg-3 mg(2.5 mg base)/3 mL [...] Status:Closed by VALERIE GAITAN on 10/18/24 Normal [facility] Abdomen/Pelvis WITH Contrast on 10-02-2024 Abdomen/Pelvis WITH Contrast Normal [facility] CNOVon 09-30-2024 CNOV Office Visit (GENSWS) MARGAUX SANDERSON ([id number]) 1940 Date Time Provider Department 09/30/24 11:30 AM VALERIE GAITAN GENSWS During your visit today, we recorded the following information about you: Temperature Blood pressure Weight Height 97.5 degrees 124/68 53.9 kg 1.702 m Valerie Gaitan APRN.[employer] 09/30/2024 1:52 PM Signed HISTORY AND PHYSICAL [...] upper lobe lung cancer. He follows with [facility]. He completed radiation in 2022. Disease is stable. He has a hx of COPD- uses duoneb daily, but no other inhalers. Is able to walk up steps AND complete activity with no issues Margaux follows with [facility]. Last OV 08/2024. He had a stress test in 2023 EF was 57% AND there was no evidence of ischemia. He CP, SOB, dizziness, palpitations, syncope, edema, recent hospitalizations Margaux has undergone prior endoscopy. Last EGD AND colonoscopy was 01/[address] Machuca at [facility]. Sedation: MAC T he entire [...] via nebulizer every 6 hours as needed. ipratropium-albutero l (DUONEB) 0.5 mg-3 mg(2.5 mg base)/3 mL [...] prep instructions from your provider. No current facility-administere d medications for this visit. ALLERGIES: Patient has no allergy inf (more content not included)... Normal [facility] MR/BMS.BVSon 2024 MR/BMS.BVS Normal [facility] Echocardiogram study reportO rdered By: Rita Alba on 09-20-2024 Study report [facility] [address] [place] [address] Echo Complete 09/19/24 1429 MR#: [id number] Acct: [id number] Name: MARGAUX SANDERSON Rep #:[id number] : 1940 83 From: Rita Alba MD Attending Dr: Dr. Alexander Steiner MD Status: [facility] Ordering Dr: Alexander Steiner MD Date: Location: [facility] Sex: M C Admitted: Reason For [...] Dictated: 09/19/24 1429 Date Transcribed: 09/20/24 1033 Hide Grader: Signed [facility] Work Phone: Stool Occult Blood iFOBon STOB Positive Normal [facility] Comment on above: Performed By: #### M 100.7900 ####[facility] [address] [place], [address] Stool gastrointestinal hemog lobin detection by immunologic methodOrdered By: Alexander Steiner on 09-20-2024 Lower GI hemoglobin IA Ql (Stl) Positive Abnormal [facility] Echo Completeon 09-19-2024 Echo Complete Normal [facility] PSA,Total - Annual Screenon 09-19-2024 PSA,TOT SCREEN 1.57 ng/mL Normal 0.02-4.00 [facility] Comment on above: Result Comment: This test was performed using the [employer] tPSAmethod. Measured values of a patient??sample can varydepending on the testing procedure used. PSA valuesdetermined on patient samples by different testingprocedures cannot be used interchangeably. If there is achange in PSA assays while monitoring therapy, sequentialtesting should be performed to confirm baseline values. Performed By: #### L 501.9910 ####[facility] [address] [place], [address] Absolute lymphocyte countOrd ered By: Alexander Steiner on 09-16-2024 Lymphocytes Auto (Unsp spec) [#/Vol] 1.04 10*3/uL 0.83-4.51 [facility] Absolute neutrophil countOrd ered By: Alexander Steiner on 09-16-2024 Neutrophils (Bld) [#/Vol] 5.0 10*3/uL 2.0-7.7 [facility] Anion gap in Serum or Plasma Ordered By: Alexander Steiner on 09-16-2024 Anion gap [Moles/Vol] 13 mmol/L 5-15 [facility] Automated lymphocyte count a s percentage of total leukocytesOrdered By: Alexander Steiner on 09-16-2024 Lymphocytes/100 WBC Auto (Unsp spec) 14.6 % Low 19-41 [facility] BUN/creatinine ratioOrdered By: Alexander Steiner on 09-16-2024 Urea nitrogen/Creatinine [Mass ratio] 18.8 mg/mg 10-20 [facility] Basophil percentageOrdered B y: Alexander Steiner on 09-16-2024 Basophils/100 WBC (Bld) 0.8 % 0-1 [facility] Bilirubin, totalOrdered By: Alexander Steiner on 09-16-2024 Bilirubin [Mass/Vol] 0.24 mg/dL 0.00-1.30 [facility] CBC W/Diff, Automatedon 08-26 Absolute Lymph 1.04 X10 3/uL Normal 0.83-4.51 [facility] Comment on above: Performed By: #### L 500.4050, L501.9520, L100.0100, L500.4100, L506.1001 ####[facility] [address] [place], [place], [id number] Absolute Neut 5.0 X10 3/uL Normal 2.0-7.7 [facility] Comment on above: Performed By: #### L 500.4050, L501.9520, L100.0100, L500.4100, L506.1001 ####[facility] [address] [place], [address] Basophils/100 WBC (Bld) 0.8 % Normal 0-1 [facility] Comment on above: Performed By: #### L 500.4050, L501.9520, L100.0100, L500.4100, L506.1001 ####[facility] [address] [place], [address] Eosinophils/100 WBC (Bld) 1.4 % Normal 0-5 [facility] Comment on above: Performed By: #### L 500.4050, L501.9520, L100.0100, L500.4100, L506.1001 ####[facility] [address] [place], [address] Erythrocyte distribution width (RBC) [Ratio] 18.0 % High 11.6-14.6 [facility] Comment on above: Performed By: #### L 500.4050, L501.9520, L100.0100, L500.4100, L506.1001 ####[facility] [address] [place], [address] Hematocrit (Bld) [Volume fraction] 34.2 % Low 40-54 [facility] Comment on above: Performed By: #### L 500.4050, L501.9520, L100.0100, L500.4100, L506.1001 ####[facility] [address] [place], [address] Hemoglobin (Bld) [Mass/Vol] 10.2 g/dL Low 13.0-16.5 [facility] Comment on above: Performed By: #### L 500.4050, L501.9520, L100.0100, L500.4100, L506.1001 ####[facility] [address] [place], [address] IG% 0.400 Normal 0.0-0.9 [facility] Comment on above: Result Comment: IG% - Immature Granulocytes (promyelocytes, myelocytes andmetamyelocytes) > 1% indicates that a LEFT SHIFT is Present. Performed By: #### L 500.4050, L501.9520, L100.0100, L500.4100, L506.1001 ####[facility] [address] [place], [address] Lymphocytes/100 WBC (Bld) 14.6 % Low 19-41 [facility] Comment on above: Performed By: #### L 500.4050, L501.9520, L100.0100, L500.4100, L506.1001 ####[facility] [address] [place], [address] MCH (RBC) [Entitic mass] 23.4 pg Low 27.0-32.0 [facility] Comment on above: Performed By: #### L 500.4050, L501.9520, L100.0100, L500.4100, L506.1001 ####[facility] [address] [place], [address] MCHC (RBC) [Mass/Vol] 29.8 g/dL Low 32-36 [facility] Comment on above: Performed By: #### L 500.4050, L501.9520, L100.0100, L500.4100, L506.1001 ####[facility] [address] [place], [address] MCV (RBC) [Entitic vol] 78.4 fL Low 80-94 [facility] Comment on above: Performed By: #### L 500.4050, L501.9520, L100.0100, L500.4100, L506.1001 ####[facility] [address] [place], [address] Monocytes/100 WBC (Bld) 12.7 % High 0-10 [facility] Comment on above: Performed By: #### L 500.4050, L501.9520, L100.0100, L500.4100, L506.1001 ####[facility] [address] [place], [address] Neutrophils/100 WBC (Bld) 70.1 % High 47-70 [facility] Comment on above: Performed By: #### L 500.4050, L501.9520, L100.0100, L500.4100, L506.1001 ####[facility] [address] [place], [address] Nucleated RBC (Bld) [#/Vol] 0 10*3/uL Normal 0-5 [facility] Comment on above: Performed By: #### L 500.4050, L501.9520, L100.0100, L500.4100, L506.1001 ####[facility] [address] [place], [address] Platelet mean volume (Bld) [Entitic vol] 10.3 fL Normal 6.2-12.0 [facility] Comment on above: Performed By: #### L 500.4050, L501.9520, L100.0100, L500.4100, L506.1001 ####[facility] [address] [place], [address] Platelets (Bld) [#/Vol] 300 10*3/uL Normal 150-450 [facility] Comment on above: Performed By: #### L 500.4050, L501.9520, L100.0100, L500.4100, L506.1001 ####[facility] [address] [place], [address] RBC (Bld) [#/Vol] 4.36 10*6/uL Low 4.6-6.2 [facility] Comment on above: Performed By: #### L 500.4050, L501.9520, L100.0100, L500.4100, L506.1001 ####[facility] [address] [place], [address] RDW SD 50.5 fl High 35.1-43.9 [facility] Comment on above: Performed By: #### L 500.4050, L501.9520, L100.0100, L500.4100, L506.1001 ####[facility] [address] [place], [address] WBC (Bld) [#/Vol] 7.1 10*3/uL Normal 4.4-11.0 [facility] Comment on above: Performed By: #### L 500.4050, L501.9520, L100.0100, L500.4100, L506.1001 ####[facility] [address] [place], [address] Calculated very low density lipoprotein (VLDL) cholesterol measurementOrdered By: Alexander Steiner on 09-16-2024 Calculated very low density lipoprotein (VLDL) cholesterol measurement 9 mg/dL 5-40 [facility] Carbon dioxide, total [Moles /volume] in Central venous bloodOrdered By: Alexander Steiner on 09-16-2024 CO2 [Moles/Vol] 21.9 mmol/L 21.0-32.0 [facility] Chloride assayOrdered By: Emmett Steiner on 09-16-2024 Chloride [Moles/Vol] 109 mmol/L High 98-108 [facility] Comprehensive Metabolic Prof ilon 09-16-2024 Albumin [Mass/Vol] 3.9 g/dL Normal 3.4-4.8 [facility] Comment on above: Performed By: #### L 500.4050, L501.9520, L100.0100, L500.4100, L506.1001 ####[facility] [address] [place], [address] Albumin/Globulin [Mass ratio] 1.4 {ratio} Normal 0.9-2.4 [facility] Comment on above: Performed By: #### L 500.4050, L501.9520, L100.0100, L500.4100, L506.1001 ####[facility] [address] [place], [address] ALK PHOS 101 U/L Normal 40-129 [facility] Comment on above: Performed By: #### L 500.4050, L501.9520, L100.0100, L500.4100, L506.1001 ####[facility] [address] [place], [address] ALT [Catalytic activity/Vol] 10 U/L Normal <=46 [facility] Comment on above: Performed By: #### L 500.4050, L501.9520, L100.0100, L500.4100, L506.1001 ####[facility] [address] [place], [address] AST [Catalytic activity/Vol] 16 U/L Normal <=37 [facility] Comment on above: Performed By: #### L 500.4050, L501.9520, L100.0100, L500.4100, L506.1001 ####[facility] [address] [place], [address] Bilirubin [Mass/Vol] 0.24 mg/dL Normal 0.00-1.30 [facility] Comment on above: Performed By: #### L 500.4050, L501.9520, L100.0100, L500.4100, L506.1001 ####[facility] [address] [place], [address] BUN/CRE 18.8 RATIO Normal 10-20 [facility] Comment on above: Performed By: #### L 500.4050, L501.9520, L100.0100, L500.4100, L506.1001 ####[facility] [address] [place], [address] Calcium [Mass/Vol] 9.3 mg/dL Normal 7.6-11.0 [facility] Comment on above: Performed By: #### L 500.4050, L501.9520, L100.0100, L500.4100, L506.1001 ####[facility] [address] [place], [address] Chloride [Moles/Vol] 109 mmol/L High 98-108 [facility] Comment on above: Performed By: #### L 500.4050, L501.9520, L100.0100, L500.4100, L506.1001 ####[facility] [address] [place], [address] CO2 [Moles/Vol] 21.9 mmol/L Normal 21.0-32.0 [facility] Comment on above: Performed By: #### L 500.4050, L501.9520, L100.0100, L500.4100, L506.1001 ####[facility] [address] [place], [address] Creatinine [Mass/Vol] 0.79 mg/dL Normal 0.70-1.20 [facility] Comment on above: Performed By: #### L 500.4050, L501.9520, L100.0100, L500.4100, L506.1001 ####[facility] [address] [place], [address] GAP 13 Normal 5-15 [facility] Comment on above: Performed By: #### L 500.4050, L501.9520, L100.0100, L500.4100, L506.1001 ####[facility] [address] [place], [address] GFR/1.73 sq M.predicted among non-blacks MDRD (S/P/Bld) [Vol rate/Area] 89 mL/min/{1.73_m2} Normal >60 [facility] Comment on above: Result Comment: mL/m in/1.73m2 CKD-EPI Creatinine Equation (2020) Performed By: #### L 500.4050, L501.9520, L100.0100, L500.4100, L506.1001 ####[facility] [address] [place], [address] Globulin (S) [Mass/Vol] 2.7 g/dL Normal 2.2-4.2 [facility] Comment on above: Performed By: #### L 500.4050, L501.9520, L100.0100, L500.4100, L506.1001 ####[facility] [address] [place], [address] Glucose [Mass/Vol] 111 mg/dL High 70-99 [facility] Comment on above: Performed By: #### L 500.4050, L501.9520, L100.0100, L500.4100, L506.1001 ####[facility] [address] [place], [address] Potassium [Moles/Vol] 3.9 mmol/L Normal 3.3-5.1 [facility] Comment on above: Performed By: #### L 500.4050, L501.9520, L100.0100, L500.4100, L506.1001 ####[facility] [address] [place], [address] Sodium [Moles/Vol] 143 mmol/L Normal 133-145 [facility] Comment on above: Performed By: #### L 500.4050, L501.9520, L100.0100, L500.4100, L506.1001 ####[facility] [address] [place], [address] T PROT 6.6 g/dL Normal 5.9-8.4 [facility] Comment on above: Performed By: #### L 500.4050, L501.9520, L100.0100, L500.4100, L506.1001 ####[facility] [address] [place], [address] Urea nitrogen [Mass/Vol] 15 mg/dL Normal 4-19 [facility] Comment on above: Performed By: #### L 500.4050, L501.9520, L100.0100, L500.4100, L506.1001 ####[facility] [address] [place], [address] Eosinophil percentageOrdered By: Alexander Steiner on 09-16-2024 Eosinophils/100 WBC (Bld) 1.4 % 0-5 [facility] Erythrocyte distribution wid th ratioOrdered By: Alexander Jatin on 09-16-2024 Erythrocyte distribution width (RBC) [Ratio] 18.0 % High 11.6-14.6 [facility] Erythrocyte distribution wid th standard deviationOrdered By: Alexander Steiner on 09-16-2024 Erythrocyte distribution width (RBC) [Ratio] 50.5 fl High 35.1-43.9 [facility] Glomerular filtration rate ( GFR) estimation/1.73 sq m using serum, plasma, or whole bOrdered By: Alexander Steiner on 09-16-2024 GFR/1.73 sq M.predicted among non-blacks MDRD (S/P/Bld) [Vol rate/Area] 89 mL/min/{1.73_m2} >60 [facility] Comment on above: mL/min/1.73m2 CKD-EP I Creatinine Equation (2020) Hematocrit Auto (Bld) [Volum e fraction]Ordered By: Alexander Steiner on 09-16-2024 Hematocrit (Bld) [Volume fraction] 34.2 % Low 40-54 [facility] Hemoglobin measurementOrdere d By: Alexander Steiner on 09-16-2024 Hemoglobin (Bld) [Mass/Vol] 10.2 g/dL Low 13.0-16.5 [facility] Immature granulocytes/100 WB C Auto (Bld)Ordered By: Alexander Steiner on 09-16-2024 Immature granulocytes/100 WBC (Bld) 0.400 % 0.0-0.9 [facility] Comment on above: IG% - Immature Granu locytes (promyelocytes, myelocytes and metamyelocytes) > 1% indicates that a LEFT SHIFT is Present. LDL calc ser/plasOrdered By: Alexander Steiner on 09-16-2024 Cholesterol in LDL [Mass/Vol] 58 mg/dL [facility] Comment on above: Hoxvzpemqg=023-581 m g/dL & Higher Gunu=148 mg/dL or greater Laboratory - Chemistry and C hemistry - challengeOrdered By: Alxeander Steiner on 09-16-2024 AST [Catalytic activity/Vol] 16 U/L <38 [facility] Lipid Profileon 09-16-2024 CHOL:HDL 2.01 Normal [facility] Comment on above: Performed By: #### L 500.4050, L501.9520, L100.0100, L500.4100, L506.1001 ####[facility] [address] [place], [address] Cholesterol [Mass/Vol] 133 mg/dL Normal <=200 [facility] Comment on above: Result Comment: Chol esterol level, Desirable <200 mg/dLBorderline high cholesterol 200-239 mg/dLHigh cholesterol >=240 mg/dLRecommendations of the NCEP Adult Treatment Panel for thefollowing risk-cutoff thresholds for the [place] Americanpulation. Performed By: #### L 500.4050, L501.9520, L100.0100, L500.4100, L506.1001 ####[facility] [address] [place], [address] Cholesterol in HDL [Mass/Vol] 66 mg/dL Normal [facility] Comment on above: Result Comment: Cee onal Cholesterol Education Program (NCEP) guidelines:<40 mg/dL: Low HDL-cholesterol (major risk factor for CHD)>= 60 mg/dL: High HDL-cholesterol (negative risk factor forCHD)HDL-cholesterol is affected by a number of factors, e.g.smoking, exercise, hormones, sex and age. Performed By: #### L 500.4050, L501.9520, L100.0100, L500.4100, L506.1001 ####[facility] [address] [place], [address] Cholesterol in LDL [Mass/Vol] 58 mg/dL Normal [facility] Comment on above: Result Comment: Bord gzrefw=969-494 mg/dL Higher Ibjk=825 mg/dL or greater Performed By: #### L 500.4050, L501.9520, L100.0100, L500.4100, L506.1001 ####[facility] [address] [place], [address] Cholesterol in VLDL [Mass/Vol] 9 mg/dL Normal 5-40 [facility] Comment on above: Performed By: #### L 500.4050, L501.9520, L100.0100, L500.4100, L506.1001 ####[facility] [address] [place], [address] Triglyceride [Mass/Vol] 46 mg/dL Normal [facility] Comment on above: Result Comment: The drugs N-Acetylcysteine and Metamizole may falselydepress this assay.Normal range: <150 mg/dLBorderline High: 150-199 mg/dLHigh: 200-499 mg/dLVery High: >500 mg/dL Performed By: #### L 500.4050, L501.9520, L100.0100, L500.4100, L506.1001 ####[facility] [address] [place], [address] MCV (mean corpuscular volume ) determinationOrdered By: Alexander Steiner on 09-16-2024 MCV (RBC) [Entitic vol] 78.4 fL Low 80-94 [facility] Mean corpuscular hemoglobin (MCH) determinationOrdered By: Alexander Steiner on 09-16-2024 MCH (RBC) [Entitic mass] 23.4 pg Low 27.0-32.0 [facility] Mean corpuscular hemoglobin concentration (MCHC) determinationOrdered By: Alexander Steiner on 09-16-2024 MCHC (RBC) [Mass/Vol] 29.8 g/dL Low 32-36 [facility] Mean platelet volume determi nationOrdered By: Alexander Steiner on 09-16-2024 Platelet mean volume (Bld) [Entitic vol] 10.3 fL 6.2-12.0 [facility] Monocyte percentageOrdered B y: Alexander Steiner on 09-16-2024 Monocytes/100 WBC (Bld) 12.7 % High 0-10 [facility] Neutrophil percentageOrdered By: Alexander Steiner 09-16-2024 Neutrophils/100 WBC (Bld) 70.1 % High 47-70 [facility] Nucleated red blood cell per centageOrdered By: Alexander Steiner on 09-16-2024 Nucleated RBC/100 WBC (Bld) [Ratio] 0 % 0-5 [facility] Platelet countOrdered By: Emmett Steiner on 09-16-2024 Platelets (Bld) [#/Vol] 300 10*3/uL 150-450 [facility] Potassium measurement (mass/ volume)Ordered By: Alexander Steiner 09-16-2024 Potassium (Unsp spec) [Mass/Vol] 3.9 mmol/L 3.3-5.1 [facility] RBC Auto (Bld) [#/Vol]Ordere d By: Alexander Steiner on 09-16-2024 RBC (Bld) [#/Vol] 4.36 10*6/uL Low 4.6-6.2 [facility] Screening total cholesterol/ high density lipoprotein (HDL) cholesterol ratioOrdered By: Alexander Steiner on 09-16-2024 Cholesterol.total/Jeff sterol in HDL [Mass ratio] 2.01 {ratio} [facility] Serum creatinine measurement (mass/volume)Ordered By: Alexander Steiner on 09-16-2024 Creatinine [Mass/Vol] 0.79 mg/dL 0.70-1.20 [facility] Serum globulin measurementOr dered By: Alexander Steiner on 09-16-2024 Globulin (S) [Mass/Vol] 2.7 g/dL 2.2-4.2 [facility] Serum glucose measurement (m ass/volume)Ordered By: Alexander Steiner on 09-16-2024 Glucose [Mass/Vol] 111 mg/dL High 70-99 [facility] Serum or plasma alanine luna otransferase (ALT) measurementOrdered By: Alexander Steiner on 09-16-2024 ALT [Catalytic activity/Vol] 10 U/L <47 [facility] Serum or plasma albumin maddie urement (mass/volume)Ordered By: Alexander Steiner 09-16-2024 Albumin [Mass/Vol] 3.9 g/dL 3.4-4.8 [facility] Serum or plasma albumin/glob ulin mass ratioOrdered By: Alexander Steiner 09-16-2024 Albumin/Globulin [Mass ratio] 1.4 {ratio} 0.9-2.4 [facility] Serum or plasma alkaline cheryl sphatase measurementOrdered By: Alexander Steiner 09-16-2024 ALP [Catalytic activity/Vol] 101 U/L 40-129 [facility] Serum or plasma calcium maddie urement (mass/volume)Ordered By: Alexander Steiner 09-16-2024 Calcium [Mass/Vol] 9.3 mg/dL 7.6-11.0 [facility] Serum or plasma cholesterol in HDL measurement (mass/volume)Ordered By: Alexander Steiner 09-16-2024 Cholesterol in HDL [Mass/Vol] 66 mg/dL >40 [facility] Comment on above: National Cholesterol Education Program (NCEP) guidelines:<40 mg/dL: Low HDL-cholesterol (major risk factor for CHD)>= 60 mg/dL: High HDL-cholesterol (negative risk factor for CHD)HDL-cholesterol is affected by a number of factors, e.g. smoking, exercise, hormones, sex and age. Serum or plasma cholesterol measurement (mass/volume)Ordered By: Alexander Steiner on 09-16-2024 Cholesterol [Mass/Vol] 133 mg/dL <201 [facility] Comment on above: Cholesterol level, D esirable <200 mg/dLBorderline high cholesterol 200-239 mg/dLHigh cholesterol >=240 mg/dLRecommendations of the NCEP Adult Treatment Panel for the following risk-cutoff thresholds for the [place] population. Serum or plasma urea nitroge n measurement (mass/volume)Ordered By: Alexander Steiner on 09-16-2024 Urea nitrogen [Mass/Vol] 15 mg/dL 4-19 [facility] Sodium levelOrdered By: Alexander Steiner on 09-16-2024 Sodium [Moles/Vol] 143 mmol/L 133-145 [facility] TSH DL <= 0.005 mIU/L QnOrde red By: Alexander Steiner on 09-16-2024 TSH Qn 0.074 uIU/mL Low 0.300-4.200 [facility] Thyroid Stim Hormone (TSH)on 09-16-2024 TSH 0.074 uIU/mL Low 0.300-4.200 [facility] Comment on above: Performed By: #### L 500.4050, L501.9520, L100.0100, L500.4100, L506.1001 ####[facility] [address] [place], [place], [address] Total proteinOrdered By: Alexander Steiner on 09-16-2024 Protein [Mass/Vol] 6.6 g/dL 5.9-8.4 [facility] Triglycerides measurementOrd ered By: Alexander Steiner on 09-16-2024 Triglyceride [Mass/Vol] 46 mg/dL <199 [facility] Comment on above: The drugs N-Acetylcy steine and Metamizole may falsely depress this assay. Normal range: <150 mg/dLBorderline High: 150-199 mg/dLHigh: 200-499 mg/dLVery High: >500 mg/dL Vitamin D,25 Hydroxyon 09-16 Vitamin D 25-OH 38.9 ng/mL Normal 30-100 [facility] Comment on above: Result Comment: Snow min D StatusDeficiency: <20 ng/mL (50nmol/L)Insufficiency: 20-30 ng/mL (50-75 nmol/L)Sufficiency: 30-100 ng/mL (75-250 nmol/L)Toxicity: >100 ng/mL (>250 nmol/L) Performed By: #### L 500.4050, L501.9520, L100.0100, L500.4100, L506.1001 ####[facility] [address] [place], [address] White blood cell (WBC) count Ordered By: Alexander Steiner on 09-16-2024 WBC (Bld) [#/Vol] 7.1 10*3/uL 4.4-11.0 [facility] CTA Head AND Neck W/ Contras ton 09-11-2024 CTA Head AND Neck W/ Contrast Normal [facility] Cardiology Visit Reporton Cardiology Visit Report Normal [facility] Electrocardiogram reportOrde red By: Sánchez Pena on 08-26-2024 EKG study [facility] Cardiovascular Services [address] [place] [address] 12 Lead EKG 08/22/24 0917 MR#: [id number] Acct: [id number] Name: MARGAUX SANDERSON Rep #:[id number] : 1940 83 From: Sánchez guerrero MD Attending Dr: Dr. Alexander Steiner MD Status: REG CLI Ordering Dr: Alexander Steiner MD Date: Location: [facility] Sex: M C Admitted: Test Reason : [...] deviation Abnormal ECG Confirmed by Sánchez Pena ([id number]), editor farm journal RICARDO PATEL ([id number]) on 08/26/2024 11:30:26 AM Referred By: Alexander Steiner Confirmed By: Sánchez Pena 08/26/24 1130 Date _ Sánchez Pena MD CC: Dr. Alexander Steiner MD ~ Signed [facility] Work Phone: 12 Lead EKGon 08-22-2024 12 Lead EKG Normal [facility] Carotid Duplex Ultrasoundon 08-22-2024 Carotid Duplex Ultrasound Normal [facility] Duplex ultrasound of carotid artery reportOrdered By: Deni Jackson on 08-22-2024 Study report [facility] Cardiovascular Services [address] [place] [address] Carotid Duplex Ultrasound 08/22/24 0928 MR#: [id number] Acct: [id number] Name: MARGAUX SANDERSON Rep #:[id number] : 1940 83 From: Deni Jackson MD Attending Dr: Dr. Alexander Steiner MD Status: REG CLI Ordering Dr: Alexander Steiner MD Date: Location: [facility] Sex: M C Admitted: Reason For [...] color flow and specral Doppler. Carotid Duplex 99722. Exam performed in department. VL/Carotid Duplex Ultrasound [...] ~ Date Dictated: 08/22/24927 Date Transcribed: 08/22/242216 Hide Grader: Signed [facility] Other Myoglobin, Serumon 5 Myoglobin, Ser 31 ng/mL Normal 28-72 [facility] Comment on above: Result Comment: Perf ormed at: [facility] [address] [id number] Director: Parker Parsons PhD, Phone: [phone] Performed By: #### L 0530.4974, F030.5430, F601.9970, L500.4050, L100.0100 ####[facility] [address] [place], [place], [id number] Absolute lymphocyte countOrd ered By: Alexander Steiner on 08-12-2024 Lymphocytes Auto (Unsp spec) [#/Vol] 0.94 10*3/uL 0.83-4.51 [facility] Absolute neutrophil countOrd ered By: Alexander Steiner on 08-12-2024 Neutrophils (Bld) [#/Vol] 4.3 10*3/uL 2.0-7.7 [facility] Anion gap in Serum or Plasma Ordered By: Alexander Steiner on 08-12-2024 Anion gap [Moles/Vol] 11 mmol/L 5- [facility] Automated lymphocyte count a s percentage of total leukocytesOrdered By: Alexander Steiner on 08-12-2024 Lymphocytes/100 WBC Auto (Unsp spec) 15.0 % Low [facility] BUN/creatinine ratioOrdered By: Alexander Steiner on 08-12-2024 Urea nitrogen/Creatinine [Mass ratio] 17.0 mg/mg 10- [facility] Basophil percentageOrdered B y: Alexander Steiner on 08-12-2024 Basophils/100 WBC (Bld) 1.4 % High 0-1 [facility] Bilirubin, totalOrdered By: Alexander Steiner on 08-12-2024 Bilirubin [Mass/Vol] 0.43 mg/dL 0.00-1.30 [facility] CBC W/Diff, Automatedon 07-25 Absolute Lymph 0.94 X10 3/uL Normal 0.83-4.51 [facility] Comment on above: Performed By: #### L 3600.5100, L501.4021, L501.3620, L500.4050, L100.0100 ####[facility] [address] [place], [place], [id number] Absolute Neut 4.3 X10 3/uL Normal 2.0-7.7 [facility] Comment on above: Performed By: #### L 3600.5100, L501.4021, L501.3620, L500.4050, L100.0100 ####[facility] [address] [place], [address] Basophils/100 WBC (Bld) 1.4 % High 0-1 [facility] Comment on above: Performed By: #### L 3600.5100, L501.4021, L501.3620, L500.4050, L100.0100 ####[facility] [address] [place], [address] Eosinophils/100 WBC (Bld) 2.1 % Normal 0-5 [facility] Comment on above: Performed By: #### L 3600.5100, L501.4021, L501.3620, L500.4050, L100.0100 ####[facility] [address] [place], [address] Erythrocyte distribution width (RBC) [Ratio] 17.2 % High 11.6-14.6 [facility] Comment on above: Performed By: #### L 3600.5100, L501.4021, L501.3620, L500.4050, L100.0100 ####[facility] [address] [place], [address] Hematocrit (Bld) [Volume fraction] 36.3 % Low 40-54 [facility] Comment on above: Performed By: #### L 3600.5100, L501.4021, L501.3620, L500.4050, L100.0100 ####[facility] [address] [place], [address] Hemoglobin (Bld) [Mass/Vol] 11.2 g/dL Low 13.0-16.5 [facility] Comment on above: Performed By: #### L 3600.5100, L501.4021, L501.3620, L500.4050, L100.0100 ####[facility] [address] [place], [address] IG% 0.300 Normal 0.0-0.9 [facility] Comment on above: Result Comment: IG% - Immature Granulocytes (promyelocytes, myelocytes andmetamyelocytes) > 1% indicates that a LEFT SHIFT is Present. Performed By: #### L 3600.5100, L501.4021, L501.3620, L500.4050, L100.0100 ####[facility] [address] [place], [address] Lymphocytes/100 WBC (Bld) 15.0 % Low 19-41 [facility] Comment on above: Performed By: #### L 3600.5100, L501.4021, L501.3620, L500.4050, L100.0100 ####[facility] [address] [place], [address] MCH (RBC) [Entitic mass] 24.3 pg Low 27.0-32.0 [facility] Comment on above: Performed By: #### L 3600.5100, L501.4021, L501.3620, L500.4050, L100.0100 ####[facility] [address] [place], [address] MCHC (RBC) [Mass/Vol] 30.9 g/dL Low 32-36 [facility] Comment on above: Performed By: #### L 3600.5100, L501.4021, L501.3620, L500.4050, L100.0100 ####[facility] [address] [place], [address] MCV (RBC) [Entitic vol] 78.9 fL Low 80-94 [facility] Comment on above: Performed By: #### L 3600.5100, L501.4021, L501.3620, L500.4050, L100.0100 ####[facility] [address] [place], [address] Monocytes/100 WBC (Bld) 12.1 % High 0-10 [facility] Comment on above: Performed By: #### L 3600.5100, L501.4021, L501.3620, L500.4050, L100.0100 ####[facility] [address] [place], [address] Neutrophils/100 WBC (Bld) 69.1 % Normal 47-70 [facility] Comment on above: Performed By: #### L 3600.5100, L501.4021, L501.3620, L500.4050, L100.0100 ####[facility] [address] [place], [address] Nucleated RBC (Bld) [#/Vol] 0 10*3/uL Normal 0-5 [facility] Comment on above: Performed By: #### L 3600.5100, L501.4021, L501.3620, L500.4050, L100.0100 ####[facility] [address] [place], [address] Platelet mean volume (Bld) [Entitic vol] 10.9 fL Normal 6.2-12.0 [facility] Comment on above: Performed By: #### L 3600.5100, L501.4021, L501.3620, L500.4050, L100.0100 ####[facility] [address] [place], [address] Platelets (Bld) [#/Vol] 325 10*3/uL Normal 150-450 [facility] Comment on above: Performed By: #### L 3600.5100, L501.4021, L501.3620, L500.4050, L100.0100 ####[facility] [address] [place], [address] RBC (Bld) [#/Vol] 4.60 10*6/uL Normal 4.6-6.2 [facility] Comment on above: Performed By: #### L 3600.5100, L501.4021, L501.3620, L500.4050, L100.0100 ####[facility] [address] [place], [address] RDW SD 49.9 fl High 35.1-43.9 [facility] Comment on above: Performed By: #### L 3600.5100, L501.4021, L501.3620, L500.4050, L100.0100 ####[facility] [address] [place], [address] WBC (Bld) [#/Vol] 6.3 10*3/uL Normal 4.4-11.0 [facility] Comment on above: Performed By: #### L 3600.5100, L501.4021, L501.3620, L500.4050, L100.0100 ####[facility] [address] [place], [address] CPK Total, Creatine Kinaseon 08-12-2024 CPK TOTAL 57 U/L Normal 24-195 [facility] Comment on above: Performed By: #### L 3600.5100, L501.4021, L501.3620, L500.4050, L100.0100 ####[facility] [address] [place], [address] Carbon dioxide, total [Moles /volume] in Central venous bloodOrdered By: Alexander Steiner on 08-12-2024 CO2 [Moles/Vol] 22.4 mmol/L 21.0-32.0 [facility] Chloride assayOrdered By: Emmett Steiner on 08-12-2024 Chloride [Moles/Vol] 107 mmol/L 98-108 [facility] Comprehensive Metabolic Prof ilon 08-12-2024 Albumin [Mass/Vol] 4.0 g/dL Normal 3.4-4.8 [facility] Comment on above: Performed By: #### L 3600.5100, L501.4021, L501.3620, L500.4050, L100.0100 ####[facility] [address] [place], [address] Albumin/Globulin [Mass ratio] 1.4 {ratio} Normal 0.9-2.4 [facility] Comment on above: Performed By: #### L 3600.5100, L501.4021, L501.3620, L500.4050, L100.0100 ####[facility] [address] [place], [address] ALK PHOS 114 U/L Normal 40-129 [facility] Comment on above: Performed By: #### L 3600.5100, L501.4021, L501.3620, L500.4050, L100.0100 ####[facility] [address] [place], [address] ALT [Catalytic activity/Vol] 8 U/L Normal <=46 [facility] Comment on above: Performed By: #### L 3600.5100, L501.4021, L501.3620, L500.4050, L100.0100 ####[facility] [address] [place], [address] AST [Catalytic activity/Vol] 17 U/L Normal <=37 [facility] Comment on above: Performed By: #### L 3600.5100, L501.4021, L501.3620, L500.4050, L100.0100 ####[facility] [address] [place], [address] Bilirubin [Mass/Vol] 0.43 mg/dL Normal 0.00-1.30 [facility] Comment on above: Performed By: #### L 3600.5100, L501.4021, L501.3620, L500.4050, L100.0100 ####[facility] [address] [place], [address] BUN/CRE 17.0 RATIO Normal 10-20 [facility] Comment on above: Performed By: #### L 3600.5100, L501.4021, L501.3620, L500.4050, L100.0100 ####[facility] [address] [place], [address] Calcium [Mass/Vol] 9.5 mg/dL Normal 7.6-11.0 [facility] Comment on above: Performed By: #### L 3600.5100, L501.4021, L501.3620, L500.4050, L100.0100 ####[facility] [address] [place], [address] Chloride [Moles/Vol] 107 mmol/L Normal 98-108 [facility] Comment on above: Performed By: #### L 3600.5100, L501.4021, L501.3620, L500.4050, L100.0100 ####[facility] [address] [place], [address] CO2 [Moles/Vol] 22.4 mmol/L Normal 21.0-32.0 [facility] Comment on above: Performed By: #### L 3600.5100, L501.4021, L501.3620, L500.4050, L100.0100 ####[facility] [address] [place], [address] Creatinine [Mass/Vol] 0.74 mg/dL Normal 0.70-1.20 [facility] Comment on above: Performed By: #### L 3600.5100, L501.4021, L501.3620, L500.4050, L100.0100 ####[facility] [address] [place], [address] GAP 11 Normal 5-15 [facility] Comment on above: Performed By: #### L 3600.5100, L501.4021, L501.3620, L500.4050, L100.0100 ####[facility] [address] [place], [address] GFR/1.73 sq M.predicted among non-blacks MDRD (S/P/Bld) [Vol rate/Area] 91 mL/min/{1.73_m2} Normal >60 [facility] Comment on above: Result Comment: mL/m in/1.73m2 CKD-EPI Creatinine Equation (2020) Performed By: #### L 3600.5100, L501.4021, L501.3620, L500.4050, L100.0100 ####[facility] [address] [place], [address] Globulin (S) [Mass/Vol] 2.8 g/dL Normal 2.2-4.2 [facility] Comment on above: Performed By: #### L 3600.5100, L501.4021, L501.3620, L500.4050, L100.0100 ####[facility] [address] [place], [address] Glucose [Mass/Vol] 99 mg/dL Normal 70-99 [facility] Comment on above: Performed By: #### L 3600.5100, L501.4021, L501.3620, L500.4050, L100.0100 ####[facility] [address] [place], [address] Potassium [Moles/Vol] 3.7 mmol/L Normal 3.3-5.1 [facility] Comment on above: Performed By: #### L 3600.5100, L501.4021, L501.3620, L500.4050, L100.0100 ####[facility] [address] [place], [address] Sodium [Moles/Vol] 140 mmol/L Normal 133-145 [facility] Comment on above: Performed By: #### L 3600.5100, L501.4021, L501.3620, L500.4050, L100.0100 ####[facility] [address] [place], [address] T PROT 6.9 g/dL Normal 5.9-8.4 [facility] Comment on above: Performed By: #### L 3600.5100, L501.4021, L501.3620, L500.4050, L100.0100 ####[facility] [address] [place], [address] Urea nitrogen [Mass/Vol] 13 mg/dL Normal 4-19 [facility] Comment on above: Performed By: #### L 3600.5100, L501.4021, L501.3620, L500.4050, L100.0100 ####[facility] [address] [place], [address] Eosinophil percentageOrdered By: Alexander Steiner on 08-12-2024 Eosinophils/100 WBC (Bld) 2.1 % 0-5 [facility] Erythrocyte distribution wid th ratioOrdered By: Alexander Steiner on 08-12-2024 Erythrocyte distribution width (RBC) [Ratio] 17.2 % High 11.6-14.6 [facility] Erythrocyte distribution wid th standard deviationOrdered By: Alexander Jatin on 08-12-2024 Erythrocyte distribution width (RBC) [Ratio] 49.9 fl High 35.1-43.9 [facility] Glomerular filtration rate ( GFR) estimation/1.73 sq m using serum, plasma, or whole bOrdered By: Alexander Steiner on 08-12-2024 GFR/1.73 sq M.predicted among non-blacks MDRD (S/P/Bld) [Vol rate/Area] 91 mL/min/{1.73_m2} >60 [facility] Comment on above: mL/min/1.73m2 CKD-EP I Creatinine Equation (2020) Hematocrit Auto (Bld) [Volum e fraction]Ordered By: Alexander Steiner on 08-12-2024 Hematocrit (Bld) [Volume fraction] 36.3 % Low 40-54 [facility] Hemoglobin measurementOrdere d By: Alexander Steiner on 08-12-2024 Hemoglobin (Bld) [Mass/Vol] 11.2 g/dL Low 13.0-16.5 [facility] Immature granulocytes/100 WB C Auto (Bld)Ordered By: Alexander Steiner on 08-12-2024 Immature granulocytes/100 WBC (Bld) 0.300 % 0.0-0.9 [facility] Comment on above: IG% - Immature Granu locytes (promyelocytes, myelocytes and metamyelocytes) > 1% indicates that a LEFT SHIFT is Present. L501.4021on 08-12-2024 Trop T High Sen 15 ng/L Normal <=22 [facility] Comment on above: Performed By: #### L 3600.5100, L501.4021, L501.3620, L500.4050, L100.0100 ####[facility] [address] [place], [place], [id number] Laboratory - Chemistry and C hemistry - challengeOrdered By: Alexander Steiner on 08-12-2024 AST [Catalytic activity/Vol] 17 U/L <38 [facility] MCV (mean corpuscular volume ) determinationOrdered By: Alexander Steiner on 08-12-2024 MCV (RBC) [Entitic vol] 78.9 fL Low 80-94 [facility] Mean corpuscular hemoglobin (MCH) determinationOrdered By: Alexander Steiner 08-12-2024 MCH (RBC) [Entitic mass] 24.3 pg Low 27.0-32.0 [facility] Mean corpuscular hemoglobin concentration (MCHC) determinationOrdered By: Alexander Steiner 08-12-2024 MCHC (RBC) [Mass/Vol] 30.9 g/dL Low 32-36 [facility] Mean platelet volume determi nationOrdered By: Alexander Steiner on 08-12-2024 Platelet mean volume (Bld) [Entitic vol] 10.9 fL 6.2-12.0 [facility] Monocyte percentageOrdered B y: Alexander Steiner on 08-12-2024 Monocytes/100 WBC (Bld) 12.1 % High 0-10 [facility] Neutrophil percentageOrdered By: Alexander Steiner on 08-12-2024 Neutrophils/100 WBC (Bld) 69.1 % 47-70 [facility] Nucleated red blood cell per centageOrdered By: Alexander Steiner on 08-12-2024 Nucleated RBC/100 WBC (Bld) [Ratio] 0 % 0-5 [facility] Platelet countOrdered By: Emmett Steiner on 08-12-2024 Platelets (Bld) [#/Vol] 325 10*3/uL 150-450 [facility] Potassium measurement (mass/ volume)Ordered By: Alexander Steiner on 08-12-2024 Potassium (Unsp spec) [Mass/Vol] 3.7 mmol/L 3.3-5.1 [facility] RBC Auto (Bld) [#/Vol]Ordere d By: Alexander Steiner on 08-12-2024 RBC (Bld) [#/Vol] 4.60 10*6/uL 4.6-6.2 [facility] Serum creatinine measurement (mass/volume)Ordered By: Alexander Steiner on 08-12-2024 Creatinine [Mass/Vol] 0.74 mg/dL 0.70-1.20 [facility] Serum globulin measurementOr dered By: Alexander Steiner on 08-12-2024 Globulin (S) [Mass/Vol] 2.8 g/dL 2.2-4.2 [facility] Serum glucose measurement (m ass/volume)Ordered By: Alexander Steiner on 08-12-2024 Glucose [Mass/Vol] 99 mg/dL 70-99 [facility] Serum myoglobin measurementO rdered By: Alexander Steiner on 08-12-2024 Myoglobin [Mass/Vol] 31 ng/mL 28-72 [facility] Comment on above: Performed at: [facility] [address] [id number] Director: Parker Parsons PhD, Phone: [phone] Serum or plasma alanine luna otransferase (ALT) measurementOrdered By: Alexander Steiner on 08-12-2024 ALT [Catalytic activity/Vol] 8 U/L <47 [facility] Serum or plasma albumin maddie urement (mass/volume)Ordered By: Alexander Steiner on 08-12-2024 Albumin [Mass/Vol] 4.0 g/dL 3.4-4.8 [facility] Serum or plasma albumin/glob ulin mass ratioOrdered By: Alexander Steiner 08-12-2024 Albumin/Globulin [Mass ratio] 1.4 {ratio} 0.9-2.4 [facility] Serum or plasma alkaline cheryl sphatase measurementOrdered By: Alexander Steiner 08-12-2024 ALP [Catalytic activity/Vol] 114 U/L 40-129 [facility] Serum or plasma calcium maddie urement (mass/volume)Ordered By: Alexander Steiner 08-12-2024 Calcium [Mass/Vol] 9.5 mg/dL 7.6-11.0 [facility] Serum or plasma creatine kin ase activityOrdered By: Alexander Steiner 08-12-2024 CK [Catalytic activity/Vol] 57 U/L 24-195 [facility] Serum or plasma urea nitroge n measurement (mass/volume)Ordered By: Alexander Steiner 08-12-2024 Urea nitrogen [Mass/Vol] 13 mg/dL 4-19 [facility] Sodium levelOrdered By: Alexander Steiner 08-12-2024 Sodium [Moles/Vol] 140 mmol/L 133-145 [facility] Total proteinOrdered By: Alexander Steiner 08-12-2024 Protein [Mass/Vol] 6.9 g/dL 5.9-8.4 [facility] Troponin T.cardiac [Mass/vol ume] in Serum or Plasma by High sensitivity methodOrdered By: Alexander Steiner 08-12-2024 Troponin T.cardiac High sensitivity method [Mass/Vol] 15 ng/L <22 [facility] White blood cell (WBC) count Ordered By: Alexander Steiner 08-12-2024 WBC (Bld) [#/Vol] 6.3 10*3/uL 4.4-11.0 [facility] Radiation Oncology Visiton 0 07-08-2024 Radiation Oncology Visit Normal [facility] Chest WITH Contraston 2024 Chest WITH Contrast Normal [facility] Chest PA and Lateralon 05-28 Chest PA and Lateral Normal [facility] Influenza virus A and B and SARS-CoV-2 (COVID-19) and Respiratory syncytial virus RNAOrdered By: Alexander Jatin on 05-28-2024 SARS-CoV-2 (COVID-19) RNA JOHNNIE+probe Ql (Unsp spec) SARS-CoV-2 (COVID 19 PCR) Abnormal [facility] M100.678on 05-28-2024 M100.678 Normal [facility] Comment on above: Performed By: #### M 100.678 ####[facility] [address] [place], [place], [id number] Absolute lymphocyte countOrd ered By: Micah Jimenez on 05-14-2024 Lymphocytes Auto (Unsp spec) [#/Vol] 1.31 10*3/uL 0.83-4.51 [facility] Absolute neutrophil countOrd ered By: Micah Jimenez on 05-14-2024 Neutrophils (Bld) [#/Vol] 3.7 10*3/uL 2.0-7.7 [facility] Automated lymphocyte count a s percentage of total leukocytesOrdered By: Micah Jimenez on 05-14-2024 Lymphocytes/100 WBC Auto (Unsp spec) 21.5 % 19-41 [facility] Basophil percentageOrdered B y: Micah Jimenez on 05-14-2024 Basophils/100 WBC (Bld) 0.5 % 0-1 [facility] CBC W/Diff, Automatedon 04-27 Absolute Lymph 1.31 X10 3/uL Normal 0.83-4.51 [facility] Comment on above: Performed By: #### L 100.0100 ####[facility] [address] [place], [place], [id number] Absolute Neut 3.7 X10 3/uL Normal 2.0-7.7 [facility] Comment on above: Performed By: #### L 100.0100 ####[facility] [address] [place], [address] Basophils/100 WBC (Bld) 0.5 % Normal 0-1 [facility] Comment on above: Performed By: #### L 100.0100 ####[facility] [address] [place], [address] Eosinophils/100 WBC (Bld) 2.0 % Normal 0-5 [facility] Comment on above: Performed By: #### L 100.0100 ####[facility] [address] [place], [address] Erythrocyte distribution width (RBC) [Ratio] 16.7 % High 11.6-14.6 [facility] Comment on above: Performed By: #### L 100.0100 ####[facility] [address] [place], [address] Hematocrit (Bld) [Volume fraction] 38.4 % Low 40-54 [facility] Comment on above: Performed By: #### L 100.0100 ####[facility] [address] [place], [address] Hemoglobin (Bld) [Mass/Vol] 11.9 g/dL Low 13.0-16.5 [facility] Comment on above: Performed By: #### L 100.0100 ####[facility] [address] [place], [address] IG% 0.300 Normal 0.0-0.9 [facility] Comment on above: Result Comment: IG% - Immature Granulocytes (promyelocytes, myelocytes andmetamyelocytes) > 1% indicates that a LEFT SHIFT is Present. Performed By: #### L 100.0100 ####[facility] [address] [place], [address] Lymphocytes/100 WBC (Bld) 21.5 % Normal 19-41 [facility] Comment on above: Performed By: #### L 100.0100 ####[facility] [address] [place], [address] MCH (RBC) [Entitic mass] 26.4 pg Low 27.0-32.0 [facility] Comment on above: Performed By: #### L 100.0100 ####[facility] [address] [place], [address] MCHC (RBC) [Mass/Vol] 31.0 g/dL Low 32-36 [facility] Comment on above: Performed By: #### L 100.0100 ####[facility] [address] [place], [address] MCV (RBC) [Entitic vol] 85.1 fL Normal 80-94 [facility] Comment on above: Performed By: #### L 100.0100 ####[facility] [address] [place], [address] Monocytes/100 WBC (Bld) 14.6 % High 0-10 [facility] Comment on above: Performed By: #### L 100.0100 ####[facility] [address] [place], [address] Neutrophils/100 WBC (Bld) 61.1 % Normal 47-70 [facility] Comment on above: Performed By: #### L 100.0100 ####[facility] [address] [place], [address] Nucleated RBC (Bld) [#/Vol] 0 10*3/uL Normal 0-5 [facility] Comment on above: Performed By: #### L 100.0100 ####[facility] [address] [place], [address] Platelet mean volume (Bld) [Entitic vol] 9.8 fL Normal 6.2-12.0 [facility] Comment on above: Performed By: #### L 100.0100 ####[facility] [address] [place], [address] Platelets (Bld) [#/Vol] 341 10*3/uL Normal 150-450 [facility] Comment on above: Performed By: #### L 100.0100 ####[facility] [address] [place], [address] RBC (Bld) [#/Vol] 4.51 10*6/uL Low 4.6-6.2 [facility] Comment on above: Performed By: #### L 100.0100 ####[facility] [address] [place], [address] RDW SD 52.6 fl High 35.1-43.9 [facility] Comment on above: Performed By: #### L 100.0100 ####[facility] [address] [place], [address] WBC (Bld) [#/Vol] 6.1 10*3/uL Normal 4.4-11.0 [facility] Comment on above: Performed By: #### L 100.0100 ####[facility] [address] [place], [address] Eosinophil percentageOrdered By: Micah Jimenez on 05-14-2024 Eosinophils/100 WBC (Bld) 2.0 % 0-5 [facility] Erythrocyte distribution wid th ratioOrdered By: Micah Jimenez on 05-14-2024 Erythrocyte distribution width (RBC) [Ratio] 16.7 % High 11.6-14.6 [facility] Erythrocyte distribution wid th standard deviationOrdered By: Micah Jimenez on 05-14-2024 Erythrocyte distribution width (RBC) [Entitic vol] 52.6 fL High 35.1-43.9 [facility] Erythrocyte distribution width (RBC) [Ratio] 52.6 fl High 35.1-43.9 [facility] Hematocrit Auto (Bld) [Volum e fraction]Ordered By: Micah Jimenez on 05-14-2024 Hematocrit (Bld) [Volume fraction] 38.4 % Low 40-54 [facility] Hemoglobin measurementOrdere d By: Micah Jimenez on 05-14-2024 Hemoglobin (Bld) [Mass/Vol] 11.9 g/dL Low 13.0-16.5 [facility] Immature granulocytes/100 WB C Auto (Bld)Ordered By: Micah Jimenez on 05-14-2024 Immature granulocytes/100 WBC (Bld) 0.300 % 0.0-0.9 [facility] Comment on above: IG% - Immature Granu locytes (promyelocytes, myelocytes and metamyelocytes) > 1% indicates that a LEFT SHIFT is Present. Lymphocytes Auto (Unsp spec) [#/Vol]Ordered By: Micah Jimenez on 05-14-2024 Lymphocytes (Bld) [#/Vol] 1.31 10*3/uL 0.83-4.51 [facility] Lymphocytes/100 WBC Auto (Un sp spec)Ordered By: Micah Jimenez on 05-14-2024 Lymphocytes/100 WBC (Bld) 21.5 % 19-41 [facility] MCV (mean corpuscular volume ) determinationOrdered By: Micah Jimenez on 05-14-2024 MCV (RBC) [Entitic vol] 85.1 fL 80-94 [facility] Mean corpuscular hemoglobin (MCH) determinationOrdered By: Micah Jimenez on 05-14-2024 MCH (RBC) [Entitic mass] 26.4 pg Low 27.0-32.0 [facility] Mean corpuscular hemoglobin concentration (MCHC) determinationOrdered By: Micah Jimenez on 05-14-2024 MCHC (RBC) [Mass/Vol] 31.0 g/dL Low 32-36 [facility] Mean platelet volume determi nationOrdered By: Micah Jimenez on 05-14-2024 Platelet mean volume (Bld) [Entitic vol] 9.8 fL 6.2-12.0 [facility] Monocyte percentageOrdered B y: Micah Jimenez on 05-14-2024 Monocytes/100 WBC (Bld) 14.6 % High 0-10 [facility] Neutrophil percentageOrdered By: Micah Jimenez on 05-14-2024 Neutrophils/100 WBC (Bld) 61.1 % 47-70 [facility] Nucleated red blood cell per centageOrdered By: Micah Jimenez on 05-14-2024 Nucleated RBC/100 WBC (Bld) [Ratio] 0 % 0-5 [facility] Platelet countOrdered By: Effie Jimenez on 05-14-2024 Platelets (Bld) [#/Vol] 341 10*3/uL 150-450 [facility] RBC Auto (Bld) [#/Vol]Ordere d By: Micah Jimenez on 05-14-2024 RBC (Bld) [#/Vol] 4.51 10*6/uL Low 4.6-6.2 [facility] White blood cell (WBC) count Ordered By: Micah Jimenez on 05-14-2024 WBC (Bld) [#/Vol] 6.1 10*3/uL 4.4-11.0 [facility] Chest PA and Lateralon 04-12 Chest PA and Lateral Normal [facility] Influenza virus A and B and SARS-CoV-2 (COVID-19) and Respiratory syncytial virus RNAOrdered By: Alexander Steiner on 04-12-2024 SARS-CoV-2 (COVID-19) RNA JOHNNIE+probe Ql (Unsp spec) [facility] M100.678on 04-12-2024 M100.678 Pending SARS-CoV-2 (COVID 19) Negative INFLUENZA A Negative INFLUENZA B Negative RSV PCR Negative Normal [facility] Comment on above: Performed By: #### M 100.678 ####[facility] [address] [place], [address] Influenza virus A and B and SARS-CoV-2 (COVID-19) and Respiratory syncytial virus RNAOrdered By: Alexander Steiner on 03-26-2024 SARS-CoV-2 (COVID-19) RNA JOHNNIE+probe Ql (Unsp spec) [facility] M100.678on 03-26-2024 M100.678 Pending SARS-CoV-2 (COVID 19) Negative INFLUENZA A Negative INFLUENZA B Negative RSV PCR Negative Normal [facility] Comment on above: Performed By: #### M 100.678 ####[facility] [address] [place], [place], [id number] 48-GN-Tadhzzn DOrdered By: Brandi Steiner on 03-06-2024 Vitamin D 25-Hydroxy 27.4 ng/mL [facility] Comment on above: Vitamin D 25(OH) Sta tus Range Deficiency <20 ng/mL (50nmol/L) Insufficiency 20 - 30 ng/mL (50 - 75 nmol/L) Sufficiency 30 - 100 ng/mL (75 - 250 nmol/L) Toxicity >100 ng/mL (>250 nmol/L) Absolute neutrophil countOrd ered By: Alexander Steiner on 03-06-2024 Neutrophils (Bld) [#/Vol] 6.5 10*3/uL 2.0-7.7 [facility] Albumin to globulin ratioOrd ered By: Alexander Steiner on 03-06-2024 Albumin/Globulin [Mass ratio] 0.9 {ratio} 0.9-2.4 [facility] Basophil percentageOrdered B y: Alexander Steiner on 03-06-2024 Basophils/100 WBC (Bld) 0.9 % 0-1 [facility] Bilirubin, totalOrdered By: Alexander Steiner on 03-06-2024 Bilirubin [Mass/Vol] 0.70 mg/dL 0.20-1.00 [facility] Comment on above: For patients on eltr ombopag therapy, use of Dimension [place] TBIL is not recommended. Blood urea nitrogen (BUN)/cr eatinine ratioOrdered By: Alexander Steiner on 03-06-2024 Urea nitrogen/Creatinine [Mass ratio] 15.6 mg/mg 10-20 [facility] CBC W/Diff, Automatedon 02-24 Absolute Lymph 1.02 X10 3/uL Normal 0.83-4.51 [facility] Comment on above: Performed By: #### L 506.1000, L500.4100, L501.9520, L100.0100, L500.4050 ####[facility] [address] [place], [address] Absolute Neut 6.5 X10 3/uL Normal 2.0-7.7 [facility] Comment on above: Performed By: #### L 506.1000, L500.4100, L501.9520, L100.0100, L500.4050 ####[facility] [address] [place], [address] Basophils/100 WBC (Bld) 0.9 % Normal 0-1 [facility] Comment on above: Performed By: #### L 506.1000, L500.4100, L501.9520, L100.0100, L500.4050 ####[facility] [address] [place], [address] Eosinophils/100 WBC (Bld) 1.2 % Normal 0-5 [facility] Comment on above: Performed By: #### L 506.1000, L500.4100, L501.9520, L100.0100, L500.4050 ####[facility] [address] [place], [address] Erythrocyte distribution width (RBC) [Ratio] 18.6 % High 11.6-14.6 [facility] Comment on above: Performed By: #### L 506.1000, L500.4100, L501.9520, L100.0100, L500.4050 ####[facility] [address] [place], [address] Hematocrit (Bld) [Volume fraction] 40.9 % Normal 40-54 [facility] Comment on above: Performed By: #### L 506.1000, L500.4100, L501.9520, L100.0100, L500.4050 ####[facility] [address] [place], [address] Hemoglobin (Bld) [Mass/Vol] 13.1 g/dL Normal 13.0-16.5 [facility] Comment on above: Performed By: #### L 506.1000, L500.4100, L501.9520, L100.0100, L500.4050 ####[facility] [address] [place], [address] IG% 0.600 Normal 0.0-0.9 [facility] Comment on above: Result Comment: IG% - Immature Granulocytes (promyelocytes, myelocytes andmetamyelocytes) > 1% indicates that a LEFT SHIFT is Present. Performed By: #### L 506.1000, L500.4100, L501.9520, L100.0100, L500.4050 ####[facility] [address] [place], [address] Lymphocytes/100 WBC (Bld) 12.1 % Low 19-41 [facility] Comment on above: Performed By: #### L 506.1000, L500.4100, L501.9520, L100.0100, L500.4050 ####[facility] [address] [place], [address] MCH (RBC) [Entitic mass] 26.7 pg Low 27.0-32.0 [facility] Comment on above: Performed By: #### L 506.1000, L500.4100, L501.9520, L100.0100, L500.4050 ####[facility] [address] [place], [address] MCHC (RBC) [Mass/Vol] 32.0 g/dL Normal 32-36 [facility] Comment on above: Performed By: #### L 506.1000, L500.4100, L501.9520, L100.0100, L500.4050 ####[facility] [address] [place], [address] MCV (RBC) [Entitic vol] 83.3 fL Normal 80-94 [facility] Comment on above: Performed By: #### L 506.1000, L500.4100, L501.9520, L100.0100, L500.4050 ####[facility] [address] [place], [address] Monocytes/100 WBC (Bld) 8.9 % Normal 0-10 [facility] Comment on above: Performed By: #### L 506.1000, L500.4100, L501.9520, L100.0100, L500.4050 ####[facility] [address] [place], [address] Neutrophils/100 WBC (Bld) 76.3 % High 47-70 [facility] Comment on above: Performed By: #### L 506.1000, L500.4100, L501.9520, L100.0100, L500.4050 ####[facility] [address] [place], [address] Nucleated RBC (Bld) [#/Vol] 0 10*3/uL Normal 0-5 [facility] Comment on above: Performed By: #### L 506.1000, L500.4100, L501.9520, L100.0100, L500.4050 ####[facility] [address] [place], [address] Platelet mean volume (Bld) [Entitic vol] 10.0 fL Normal 6.2-12.0 [facility] Comment on above: Performed By: #### L 506.1000, L500.4100, L501.9520, L100.0100, L500.4050 ####[facility] [address] [place], [address] Platelets (Bld) [#/Vol] 288 10*3/uL Normal 150-450 [facility] Comment on above: Performed By: #### L 506.1000, L500.4100, L501.9520, L100.0100, L500.4050 ####[facility] [address] [place], [address] RBC (Bld) [#/Vol] 4.91 10*6/uL Normal 4.6-6.2 [facility] Comment on above: Performed By: #### L 506.1000, L500.4100, L501.9520, L100.0100, L500.4050 ####[facility] [address] [place], [address] RDW SD 55.6 fl High 35.1-43.9 [facility] Comment on above: Performed By: #### L 506.1000, L500.4100, L501.9520, L100.0100, L500.4050 ####[facility] [address] [place], [address] WBC (Bld) [#/Vol] 8.5 10*3/uL Normal 4.4-11.0 [facility] Comment on above: Performed By: #### L 506.1000, L500.4100, L501.9520, L100.0100, L500.4050 ####[facility] [address] [place], [address] Carbon dioxide measurementOr dered By: Alexander Steiner on 03-06-2024 CO2 [Moles/Vol] 23.0 mmol/L 21.0-32.0 [facility] Chloride measurementOrdered By: Alexander Steiner on 03-06-2024 Chloride [Moles/Vol] 112 mmol/L High 98-107 [facility] Comprehensive Metabolic Prof ilon 03-06-2024 Albumin [Mass/Vol] 3.5 g/dL Normal 3.2-5.0 [facility] Comment on above: Performed By: #### L 506.1000, L500.4100, L501.9520, L100.0100, L500.4050 ####[facility] [address] [place], [address] Albumin/Globulin [Mass ratio] 0.9 {ratio} Normal 0.9-2.4 [facility] Comment on above: Performed By: #### L 506.1000, L500.4100, L501.9520, L100.0100, L500.4050 ####[facility] [address] [place], [address] ALK P 119 U/L High 45-117 [facility] Comment on above: Performed By: #### L 506.1000, L500.4100, L501.9520, L100.0100, L500.4050 ####[facility] [address] [place], [address] ALT [Catalytic activity/Vol] 19 U/L Normal 16-61 [facility] Comment on above: Performed By: #### L 506.1000, L500.4100, L501.9520, L100.0100, L500.4050 ####[facility] [address] [place], [address] AST [Catalytic activity/Vol] 11 U/L Low 15-37 [facility] Comment on above: Performed By: #### L 506.1000, L500.4100, L501.9520, L100.0100, L500.4050 ####[facility] [address] [place], [address] Bilirubin [Mass/Vol] 0.70 mg/dL Normal 0.20-1.00 [facility] Comment on above: Result Comment: For patients on eltrombopag therapy, use of Dimension [place] TBIL is not recommended. Performed By: #### L 506.1000, L500.4100, L501.9520, L100.0100, L500.4050 ####[facility] [address] [place], [address] BUN/CRE 15.6 RATIO Normal 10-20 [facility] Comment on above: Performed By: #### L 506.1000, L500.4100, L501.9520, L100.0100, L500.4050 ####[facility] [address] [place], [address] CA,Total 9.7 mg/dL Normal 8.5-10.1 [facility] Comment on above: Performed By: #### L 506.1000, L500.4100, L501.9520, L100.0100, L500.4050 ####[facility] [address] [place], [address] Chloride [Moles/Vol] 112 mmol/L High 98-107 [facility] Comment on above: Performed By: #### L 506.1000, L500.4100, L501.9520, L100.0100, L500.4050 ####[facility] [address] [place], [address] CO2 [Moles/Vol] 23.0 mmol/L Normal 21.0-32.0 [facility] Comment on above: Performed By: #### L 506.1000, L500.4100, L501.9520, L100.0100, L500.4050 ####[facility] [address] [place], [address] Creatinine [Mass/Vol] 0.84 mg/dL Normal 0.70-1.30 [facility] Comment on above: Result Comment: The validity of the calculated GFR GFRAA in patients over70 years has not been determined. Clinical correlation isessential. Performed By: #### L 506.1000, L500.4100, L501.9520, L100.0100, L500.4050 ####[facility] [address] [place], [address] EST GFR - AA 113 mL/min Normal >60 [facility] Comment on above: Result Comment: Afri can Cambodian GFR Calc Performed By: #### L 506.1000, L500.4100, L501.9520, L100.0100, L500.4050 ####[facility] [address] [place], [address] GAP 7 Normal 5-15 [facility] Comment on above: Performed By: #### L 506.1000, L500.4100, L501.9520, L100.0100, L500.4050 ####[facility] [address] [place], [address] GFR/1.73 sq M.predicted among non-blacks MDRD (S/P/Bld) [Vol rate/Area] 94 mL/min/{1.73_m2} Normal >60 [facility] Comment on above: Result Comment: Non- GFR Calc Performed By: #### L 506.1000, L500.4100, L501.9520, L100.0100, L500.4050 ####[facility] [address] [place], [address] Globulin (S) [Mass/Vol] 3.9 g/dL Normal 2.2-4.2 [facility] Comment on above: Performed By: #### L 506.1000, L500.4100, L501.9520, L100.0100, L500.4050 ####[facility] [address] [place], [address] Glucose [Mass/Vol] 107 mg/dL High 74-106 [facility] Comment on above: Result Comment: Fast ing Glucose result from 100 to 125 mg/dLsuggests IMPAIRED HOMEOSTASIS per A.D.A. criteria. Performed By: #### L 506.1000, L500.4100, L501.9520, L100.0100, L500.4050 ####[facility] [address] [place], [address] Potassium [Moles/Vol] 3.8 mmol/L Normal 3.5-5.1 [facility] Comment on above: Performed By: #### L 506.1000, L500.4100, L501.9520, L100.0100, L500.4050 ####[facility] [address] [place], [address] Sodium [Moles/Vol] 141 mmol/L Normal 136-145 [facility] Comment on above: Performed By: #### L 506.1000, L500.4100, L501.9520, L100.0100, L500.4050 ####[facility] [address] [place], [address] T PROT 7.4 g/dL Normal 6.4-8.2 [facility] Comment on above: Performed By: #### L 506.1000, L500.4100, L501.9520, L100.0100, L500.4050 ####[facility] [address] [place], [address] Urea nitrogen [Mass/Vol] 13 mg/dL Normal 7-18 [facility] Comment on above: Performed By: #### L 506.1000, L500.4100, L501.9520, L100.0100, L500.4050 ####[facility] [address] [place], [address] Eosinophil percentageOrdered By: Alexander Steiner on 03-06-2024 Eosinophils/100 WBC (Bld) 1.2 % 0-5 [facility] Erythrocyte distribution wid th ratioOrdered By: Alexander Steiner on 03-06-2024 Erythrocyte distribution width (RBC) [Ratio] 18.6 % High 11.6-14.6 [facility] Erythrocyte distribution wid th standard deviationOrdered By: Alexander Steiner on 03-06-2024 Erythrocyte distribution width (RBC) [Entitic vol] 55.6 fL High 35.1-43.9 [facility] Estimated glomerular filtrat ion rate (GFR) AmericanOrdered By: Alexander Steiner on 03-06-2024 Estimated GFR (MDRD) Amer 113 mL/min >60 [facility] Comment on above: GFR Calc Glomerular filtration rate ( GFR) estimationOrdered By: Alexander Steiner on 03-06-2024 Estimated GFR (MDRD) Non-Af Amer 94 mL/min >60 [facility] Comment on above: Non- GFR Calc Glucose measurementOrdered B y: Alexander Steiner on 03-06-2024 Glucose [Mass/Vol] 107 mg/dL High 74-106 [facility] Comment on above: Fasting Glucose resu lt from 100 to 125 mg/dL suggests IMPAIRED HOMEOSTASIS per A.D.A. criteria. Hematocrit Auto (Bld) [Volum e fraction]Ordered By: Alexander Steiner on 03-06-2024 Hematocrit (Bld) [Volume fraction] 40.9 % 40-54 [facility] Hemoglobin measurementOrdere d By: Alexander Steiner on 03-06-2024 Hemoglobin (Bld) [Mass/Vol] 13.1 g/dL 13.0-16.5 [facility] High density lipoprotein (HD L) measurementOrdered By: Alexander Steiner on 03-06-2024 Cholesterol in HDL [Mass/Vol] 83 mg/dL >40 [facility] Comment on above: The drugs N-Acetylcy steine and Metamizole may falsely depress this assay. Reference Range HDL <40 mg/dL Low HDL Cholesterol HDL >or= 60 mg/dL High HDL Cholesterol Immature granulocytes/100 WB C Auto (Bld)Ordered By: Alexander Steiner on 03-06-2024 Immature granulocytes/100 WBC (Bld) 0.600 % 0.0-0.9 [facility] Comment on above: IG% - Immature Granu locytes (promyelocytes, myelocytes and metamyelocytes) > 1% indicates that a LEFT SHIFT is Present. Laboratory - Chemistry and C hemistry - challengeOrdered By: Alexander Steiner on 03-06-2024 AST [Catalytic activity/Vol] 11 U/L Low 15-37 [facility] Lipid Profileon 03-06-2024 Cholesterol [Mass/Vol] 173 mg/dL Normal 200 [facility] Comment on above: Result Comment: <200 mg/dL Desirable 200-240 mg/dL Borderline >240 mg/dL High Risk Performed By: #### L 506.1000, L500.4100, L501.9520, L100.0100, L500.4050 ####[facility] [address] [place], [address] Cholesterol in HDL [Mass/Vol] 83 mg/dL Normal [facility] Comment on above: Result Comment: The drugs N-Acetylcysteine and Metamizole may falselydepress this assay. Reference Range HDL <40 mg/dL Low HDL Cholesterol HDL >or= 60 mg/dL High HDL Cholesterol Performed By: #### L 506.1000, L500.4100, L501.9520, L100.0100, L500.4050 ####[facility] [address] [place], [address] Cholesterol in LDL [Mass/Vol] 75 mg/dL Normal 0-130 [facility] Comment on above: Performed By: #### L 506.1000, L500.4100, L501.9520, L100.0100, L500.4050 ####[facility] [address] [place], [address] Cholesterol in VLDL [Mass/Vol] 15 mg/dL Normal 5-40 [facility] Comment on above: Performed By: #### L 506.1000, L500.4100, L501.9520, L100.0100, L500.4050 ####[facility] [address] [place], [address] Triglyceride [Mass/Vol] 74 mg/dL Normal [facility] Comment on above: Result Comment: The drugs N-Acetylcysteine and Metamizole may falselydepress this assay.Serum Triglycerides Reference Interval Normal <150 mg/dL Borderline high 150 - 199 mg/dL High 200 - 499 mg/dL Very High > or = 500 mg/dL Performed By: #### L 506.1000, L500.4100, L501.9520, L100.0100, L500.4050 ####[facility] [id number] [place], [address] Low density lipoprotein (LDL ) cholesterol measurementOrdered By: Alexander iqbal 03-06-2024 Cholesterol in LDL [Mass/Vol] 75 mg/dL 0-130 [facility] Lymphocytes Auto (Unsp spec) [#/Vol]Ordered By: Alexander Steiner on 03-06-2024 Lymphocytes (Bld) [#/Vol] 1.02 10*3/uL 0.83-4.51 [facility] Lymphocytes/100 WBC Auto (Un sp spec)Ordered By: Alexander Steiner on 03-06-2024 Lymphocytes/100 WBC (Bld) 12.1 % Low 19-41 [facility] MCV (mean corpuscular volume ) determinationOrdered By: Alexander Steiner on 03-06-2024 MCV (RBC) [Entitic vol] 83.3 fL 80-94 [facility] Mean corpuscular hemoglobin (MCH) determinationOrdered By: Alexander Steiner on 03-06-2024 MCH (RBC) [Entitic mass] 26.7 pg Low 27.0-32.0 [facility] Mean corpuscular hemoglobin concentration (MCHC) determinationOrdered By: Alexander Steiner on 03-06-2024 MCHC (RBC) [Mass/Vol] 32.0 g/dL 32-36 [facility] Mean platelet volume determi nationOrdered By: Alexander Steiner on 03-06-2024 Platelet mean volume (Bld) [Entitic vol] 10.0 fL 6.2-12.0 [facility] Monocyte percentageOrdered B y: Alexander Steiner on 03-06-2024 Monocytes/100 WBC (Bld) 8.9 % 0-10 [facility] Neutrophil percentageOrdered By: Alexander Steiner on 03-06-2024 Neutrophils/100 WBC (Bld) 76.3 % High 47-70 [facility] Nucleated red blood cell per centageOrdered By: Alexander Steiner on 03-06-2024 Nucleated RBC/100 WBC (Bld) [Ratio] 0 % 0-5 [facility] Platelet countOrdered By: Emmett Steiner on 03-06-2024 Platelets (Bld) [#/Vol] 288 10*3/uL 150-450 [facility] Potassium measurementOrdered By: Alexander Steiner on 03-06-2024 Potassium [Moles/Vol] 3.8 mmol/L 3.5-5.1 [facility] RBC Auto (Bld) [#/Vol]Ordere d By: Alexander Steiner on 03-06-2024 RBC (Bld) [#/Vol] 4.91 10*6/uL 4.6-6.2 [facility] Serum anion gap measurementO rdered By: Alexander Steiner 03-06-2024 Anion gap [Moles/Vol] 7 mmol/L 5-15 [facility] Serum globulin measurementOr dered By: Alexander Steiner on 03-06-2024 Globulin (S) [Mass/Vol] 3.9 g/dL 2.2-4.2 [facility] Serum or plasma alanine luna otransferase (ALT) measurementOrdered By: Alexander Steiner 03-06-2024 ALT [Catalytic activity/Vol] 19 U/L 16-61 [facility] Serum or plasma albumin maddie urement (mass/volume)Ordered By: Alexander Steiner 03-06-2024 Albumin [Mass/Vol] 3.5 g/dL 3.2-5.0 [facility] Serum or plasma alkaline cheryl sphatase measurementOrdered By: Alexander Steiner 03-06-2024 ALP [Catalytic activity/Vol] 119 U/L High 45-117 [facility] Serum or plasma calcium maddie urement (mass/volume)Ordered By: Alexander Steiner 03-06-2024 Calcium [Mass/Vol] 9.7 mg/dL 8.5-10.1 [facility] Serum or plasma cholesterol measurement (mass/volume)Ordered By: Alexander Steiner 03-06-2024 Cholesterol [Mass/Vol] 173 mg/dL <200 [facility] Comment on above: <200 mg/dL Desirable 200-240 mg/dL Borderline >240 mg/dL High Risk Serum or plasma creatinine m easurement (mass/volume)Ordered By: Alexander Steiner 03-06-2024 Creatinine [Mass/Vol] 0.84 mg/dL 0.70-1.30 [facility] Comment on above: The validity of the calculated GFR & GFRAA in patients over 70 years has not been determined. Clinical correlation is essential. Serum or plasma urea nitroge n measurement (mass/volume)Ordered By: Alexander Steiner 03-06-2024 Urea nitrogen [Mass/Vol] 13 mg/dL 7-18 [facility] Sodium levelOrdered By: Alexander Steiner on 03-06-2024 Sodium [Moles/Vol] 141 mmol/L 136-145 [facility] TSH QnOrdered By: Alexander Steiner o n 03-06-2024 Thyroid Stimulating Hormone (TSH) 0.709 uIU/mL 0.358-3.740 [facility] Thyroid Stim Hormone (TSH)on 03-06-2024 TSH 0.709 uIU/mL Normal 0.358-3.740 [facility] Comment on above: Performed By: #### L 506.1000, L500.4100, L501.9520, L100.0100, L500.4050 ####[facility] [id number] [place], [address] Total proteinOrdered By: Alexander Steiner on 03-06-2024 Protein [Mass/Vol] 7.4 g/dL 6.4-8.2 [facility] Triglycerides measurementOrd ered By: Alexander Steiner on 03-06-2024 Triglyceride [Mass/Vol] 74 mg/dL <199 [facility] Comment on above: The drugs N-Acetylcy steine and Metamizole may falsely depress this assay.Serum Triglycerides Reference Interval Normal <150 mg/dL Borderline high 150 - 199 mg/dL High 200 - 499 mg/dL Very High > or = 500 mg/dL Very low density lipoprotein (VLDL) cholesterol measurementOrdered By: Alexander Steiner on 03-06-2024 VLDL Cholesterol 15 mg/dL 5-40 [facility] Vitamin D,25 Hydroxyon 03-06 Vitamin D 25-OH 27.4 ng/mL Normal [facility] Comment on above: Result Comment: Snow min D 25(OH) Status Range Deficiency <20 ng/mL (50nmol/L) Insufficiency 20 - 30 ng/mL (50 - 75 nmol/L) Sufficiency 30 - 100 ng/mL (75 - 250 nmol/L) Toxicity >100 ng/mL (>250 nmol/L) Performed By: #### L 506.1000, L500.4100, L501.9520, L100.0100, L500.4050 ####[facility] [id number] [place], [address] White blood cell (WBC) count Ordered By: Alexander Steiner on 03-06-2024 WBC (Bld) [#/Vol] 8.5 10*3/uL 4.4-11.0 [facility] Radiation Oncology Visiton 1 05-01-2023 Radiation Oncology Visit Normal [facility] Chest without Contraston Chest without Contrast Normal [facility] Orthopedic Visit Reporton Orthopedic Visit Report Normal [facility] Absolute lymphocyte countOrd ered By: Alexander Steiner on 04-04-2023 Lymphocytes Auto (Unsp spec) [#/Vol] 0.77 10*3/uL 0.83-4.51 [facility] Basophil percentageOrdered B y: Alexander Steiner on 04-04-2023 Basophils/100 WBC (Bld) 1.2 % 0-1 [facility] Eosinophils/100 WBC (Bld) 0.6 % 0-5 [facility] Neutrophils (Bld) [#/Vol] 5.2 10*3/uL 2.0-7.7 [facility] Neutrophils/100 WBC (Bld) 76.4 % 47-70 [facility] WBC (Bld) [#/Vol] 6.8 10*3/uL 4.4-11.0 [facility] Blood erythrocytes count (nu mber/volume)Ordered By: Alexander Steiner on 04-04-2023 RBC (Bld) [#/Vol] 4.82 10*6/uL 4.6-6.2 [facility] Blood hemoglobin measurement (mass/volume)Ordered By: Alexander Steiner on 04-04-2023 Hemoglobin (Bld) [Mass/Vol] 12.6 g/dL 13.0-16.5 [facility] Blood lymphocytes/100 leukoc ytesOrdered By: Alexander Steiner on 04-04-2023 Lymphocytes/100 WBC (Bld) 11.4 % 19-41 [facility] Blood monocytes/100 leukocyt esOrdered By: Alexander Steiner on 04-04-2023 Monocytes/100 WBC (Bld) 10.0 % 0-10 [facility] Blood platelet mean volumeOr dered By: Alexander Steiner on 04-04-2023 Platelet mean volume (Bld) [Entitic vol] 10.5 fL 6.2-12.0 [facility] Determination of erythrocyte mean corpuscular volume (MCV)Ordered By: Alexander Steiner on 04-04-2023 MCV (RBC) [Entitic vol] 84.4 fL 80-94 [facility] Hematocrit Auto (Bld) [Volum e fraction]Ordered By: Alexander Steiner on 04-04-2023 Hematocrit (Bld) [Volume fraction] 40.7 % 40-54 [facility] Laboratory - Hematology and Cell countsOrdered By: Alexander Jatin on 04-04-2023 Erythrocyte distribution width (RBC) [Entitic vol] 59.4 fL 35.1-43.9 [facility] Erythrocyte distribution width (RBC) [Ratio] 19.6 % 11.6-14.6 [facility] Immature granulocytes/100 WBC (Bld) 0.400 % 0.0-0.9 [facility] Comment on above: IG% - Immature Granu locytes (promyelocytes, myelocytes and metamyelocytes) > 1% indicates that a LEFT SHIFT is Present. MCH (RBC) [Entitic mass] 26.1 pg 27.0-32.0 [facility] Nucleated RBC/100 WBC (Bld) [Ratio] 0 % 0-5 [facility] MCHC Auto (RBC) [Mass/Vol]Or dered By: Alexander Steiner on 04-04-2023 MCHC (RBC) [Mass/Vol] 31.0 g/dL 32-36 [facility] Platelets bldOrdered By: Alexander Steiner on 04-04-2023 Platelets (Bld) [#/Vol] 281 10*3/uL 150-450 [facility] Stool gastrointestinal hemog lobin detection by immunologic methodOrdered By: Alexander Steiner on 03-06-2023 Lower GI hemoglobin IA Ql (Stl) [facility] Absolute lymphocyte countOrd ered By: Alexander Jatin on 03-03-2023 Lymphocytes Auto (Unsp spec) [#/Vol] 0.75 10*3/uL 0.83-4.51 [facility] Basophil percentageOrdered B y: Alexander Steiner on 03-03-2023 Basophils/100 WBC (Bld) 1.8 % 0-1 [facility] Eosinophils/100 WBC (Bld) 2.9 % 0-5 [facility] Neutrophils (Bld) [#/Vol] 3.9 10*3/uL 2.0-7.7 [facility] Neutrophils/100 WBC (Bld) 70.4 % 47-70 [facility] WBC (Bld) [#/Vol] 5.5 10*3/uL 4.4-11.0 [facility] Blood erythrocytes count (nu mber/volume)Ordered By: Alexander Steiner on 03-03-2023 RBC (Bld) [#/Vol] 4.40 10*6/uL 4.6-6.2 [facility] Blood hemoglobin measurement (mass/volume)Ordered By: Alexander Steiner on 03-03-2023 Hemoglobin (Bld) [Mass/Vol] 11.1 g/dL 13.0-16.5 [facility] Blood lymphocytes/100 leukoc ytesOrdered By: Alexander Steiner on 03-03-2023 Lymphocytes/100 WBC (Bld) 13.7 % 19-41 [facility] Blood monocytes/100 leukocyt esOrdered By: Alexander Steiner on 03-03-2023 Monocytes/100 WBC (Bld) 11.0 % 0-10 [facility] Blood platelet mean volumeOr dered By: Alexander Steiner on 03-03-2023 Platelet mean volume (Bld) [Entitic vol] 10.6 fL 6.2-12.0 [facility] Determination of erythrocyte mean corpuscular volume (MCV)Ordered By: Alexander Steiner on 03-03-2023 MCV (RBC) [Entitic vol] 81.4 fL 80-94 [facility] Hematocrit Auto (Bld) [Volum e fraction]Ordered By: Alexander Steiner on 03-03-2023 Hematocrit (Bld) [Volume fraction] 35.8 % 40-54 [facility] Hemoglobin in reticulocytes (mass per reticulocyte)Ordered By: Alexander Steiner on 03-03-2023 Hemoglobin (Reticulocytes) [Entitic mass] 26.9 pg 30-35 [facility] Iron measurement (mass/mass) Ordered By: Alexander Steiner on 03-03-2023 Iron (Unsp spec) [Mass/Mass] 16 ug/dL 65-175 [facility] Laboratory - Chemistry and C hemistry - challengeOrdered By: Alexander Steiner on 03-03-2023 Cobalamin (Vitamin B12) [Mass/Vol] 536 pg/mL 211-911 [facility] Laboratory - Hematology and Cell countsOrdered By: Alexander Steiner on 03-03-2023 Erythrocyte distribution width (RBC) [Entitic vol] 48.5 fL 35.1-43.9 [facility] Erythrocyte distribution width (RBC) [Ratio] 16.3 % 11.6-14.6 [facility] Immature granulocytes/100 WBC (Bld) 0.200 % 0.0-0.9 [facility] Comment on above: IG% - Immature Granu locytes (promyelocytes, myelocytes and metamyelocytes) > 1% indicates that a LEFT SHIFT is Present. MCH (RBC) [Entitic mass] 25.2 pg 27.0-32.0 [facility] Nucleated RBC/100 WBC (Bld) [Ratio] 0 % 0-5 [facility] MCHC Auto (RBC) [Mass/Vol]Or dered By: Alexander Steiner on 03-03-2023 MCHC (RBC) [Mass/Vol] 31.0 g/dL 32-36 [facility] No Panel InformationOrdered By: Alexander Steiner on 03-03-2023 Immature Reticulocyte Fraction 17.40 % 3.00-15.90 [facility] Reticulocyte Count 1.01 % 0.5-1.5 [facility] r [facility] Total Iron Binding Capacity 486 ug/dL 250-450 [facility] Platelets bldOrdered By: Alexander Steiner on 03-03-2023 Platelets (Bld) [#/Vol] 255 10*3/uL 150-450 [facility] Serum or plasma ferritin xavi surement (mass/volume)Ordered By: Alexander Steiner on 03-03-2023 Ferritin [Mass/Vol] 7 ng/mL 26-388 [facility] Serum or plasma folate measu rement (mass/volume)Ordered By: Alexander Steiner on 03-03-2023 Folate [Mass/Vol] 15.50 ng/mL 3.1-55.4 [facility] Serum or plasma iron saturat ion measurement (mass fraction)Ordered By: Alexander Packerok on 03-03-2023 Iron saturation [Mass fraction] 3.3 % 15.0-55.0 [facility] Absolute lymphocyte countOrd ered By: Alexander Steiner on 03-02-2023 Lymphocytes Auto (Unsp spec) [#/Vol] 0.81 10*3/uL 0.83-4.51 [facility] Basophil percentageOrdered B y: Alexander Steiner on 03-02-2023 Basophils/100 WBC (Bld) 2.2 % 0-1 [facility] Bilirubin [Mass/Vol] 0.40 mg/dL 0.20-1.00 [facility] Comment on above: For patients on eltr ombopag therapy, use of Dimension [place] TBIL is not recommended. Chloride [Moles/Vol] 110 mmol/L 98-107 [facility] Cholesterol [Mass/Vol] 146 mg/dL <200 [facility] Comment on above: <200 mg/dL Desirable 200-240 mg/dL Borderline >240 mg/dL High Risk Eosinophils/100 WBC (Bld) 5.1 % 0-5 [facility] Glucose [Mass/Vol] 101 mg/dL 74-106 [facility] Comment on above: Fasting Glucose resu lt from 100 to 125 mg/dL suggests IMPAIRED HOMEOSTASIS per A.D.A. criteria. Neutrophils (Bld) [#/Vol] 2.7 10*3/uL 2.0-7.7 [facility] Neutrophils/100 WBC (Bld) 59.6 % 47-70 [facility] Potassium [Moles/Vol] 3.7 mmol/L 3.5-5.1 [facility] Protein [Mass/Vol] 7.0 g/dL 6.4-8.2 [facility] Sodium [Moles/Vol] 140 mmol/L 136-145 [facility] Triglyceride [Mass/Vol] 53 mg/dL <199 [facility] Comment on above: The drugs N-Acetylcy steine and Metamizole may falsely depress this assay.Serum Triglycerides Reference Interval Normal <150 mg/dL Borderline high 150 - 199 mg/dL High 200 - 499 mg/dL Very High > or = 500 mg/dL WBC (Bld) [#/Vol] 4.5 10*3/uL 4.4-11.0 [facility] Blood erythrocytes count (nu mber/volume)Ordered By: Alexander Steiner on 03-02-2023 RBC (Bld) [#/Vol] 4.40 10*6/uL 4.6-6.2 [facility] Blood hemoglobin measurement (mass/volume)Ordered By: Alexander Steiner on 03-02-2023 Hemoglobin (Bld) [Mass/Vol] 10.9 g/dL 13.0-16.5 [facility] Blood lymphocytes/100 leukoc ytesOrdered By: Alexander Steiner on 03-02-2023 Lymphocytes/100 WBC (Bld) 17.9 % 19-41 [facility] Blood monocytes/100 leukocyt esOrdered By: Alexander Steiner on 03-02-2023 Monocytes/100 WBC (Bld) 15.0 % 0-10 [facility] Blood platelet mean volumeOr dered By: Alexander Steiner on 03-02-2023 Platelet mean volume (Bld) [Entitic vol] 10.3 fL 6.2-12.0 [facility] Determination of erythrocyte mean corpuscular volume (MCV)Ordered By: Alexander Steiner on 03-02-2023 MCV (RBC) [Entitic vol] 82.3 fL 80-94 [facility] Hematocrit Auto (Bld) [Volum e fraction]Ordered By: Alexander Steiner on 03-02-2023 Hematocrit (Bld) [Volume fraction] 36.2 % 40-54 [facility] Laboratory - Chemistry and C hemistry - challengeOrdered By: Alexander Steiner on 03-02-2023 ALP [Catalytic activity/Vol] 79 U/L 45-117 [facility] ALT [Catalytic activity/Vol] 17 U/L 16-61 [facility] CO2 [Moles/Vol] 23.0 mmol/L 21.0-32.0 [facility] Globulin (S) [Mass/Vol] 3.4 g/dL 2.2-4.2 [facility] Urea nitrogen/Creatinine [Mass ratio] 15.8 mg/mg 10-20 [facility] Laboratory - Hematology and Cell countsOrdered By: Alexander Steiner on 03-02-2023 Erythrocyte distribution width (RBC) [Entitic vol] 49.2 fL 35.1-43.9 [facility] Erythrocyte distribution width (RBC) [Ratio] 16.3 % 11.6-14.6 [facility] Immature granulocytes/100 WBC (Bld) 0.200 % 0.0-0.9 [facility] Comment on above: IG% - Immature Granu locytes (promyelocytes, myelocytes and metamyelocytes) > 1% indicates that a LEFT SHIFT is Present. MCH (RBC) [Entitic mass] 24.8 pg 27.0-32.0 [facility] Nucleated RBC/100 WBC (Bld) [Ratio] 0 % 0-5 [facility] MCHC Auto (RBC) [Mass/Vol]Or dered By: Alexander Steiner on 03-02-2023 MCHC (RBC) [Mass/Vol] 30.1 g/dL 32-36 [facility] No Panel InformationOrdered By: Alexander Steiner on 03-02-2023 Estimated GFR (MDRD) Amer 140 mL/min >60 [facility] Comment on above: GFR Calc Estimated GFR (MDRD) Non-Af Amer 116 mL/min >60 [facility] Comment on above: Non- GFR Calc Thyroid Stimulating Hormone (TSH) 0.57 uIU/mL 0.358-3.74 [facility] Vitamin D 25-Hydroxy 35.7 ng/mL [facility] Comment on above: Vitamin D 25(OH) Sta tus Range Deficiency <20 ng/mL (50nmol/L) Insufficiency 20 - 30 ng/mL (50 - 75 nmol/L) Sufficiency 30 - 100 ng/mL (75 - 250 nmol/L) Toxicity >100 ng/mL (>250 nmol/L) Platelets bldOrdered By: Alexander Steiner on 03-02-2023 Platelets (Bld) [#/Vol] 247 10*3/uL 150-450 [facility] Serum or plasma albumin maddie urement (mass/volume)Ordered By: Alexander Steiner on 03-02-2023 Albumin [Mass/Vol] 3.6 g/dL 3.2-5.0 [facility] Serum or plasma albumin/glob ulin mass ratioOrdered By: Alexander Steiner on 03-02-2023 Albumin/Globulin [Mass ratio] 1.1 {ratio} 0.9-2.4 [facility] Serum or plasma calcium maddie urement (mass/volume)Ordered By: Alexander Steiner on 03-02-2023 Calcium [Mass/Vol] 8.1 mg/dL 8.5-10.1 [facility] Serum or plasma cholesterol in HDL measurement (mass/volume)Ordered By: Alexander Steiner on 03-02-2023 Cholesterol in HDL [Mass/Vol] 74 mg/dL >40 [facility] Comment on above: The drugs N-Acetylcy steine and Metamizole may falsely depress this assay. Reference Range HDL <40 mg/dL Low HDL Cholesterol HDL >or= 60 mg/dL High HDL Cholesterol Serum or plasma cholesterol in VLDL measurement (mass/volume)Ordered By: Alexander Steiner on 03-02-2023 Cholesterol in VLDL [Mass/Vol] 11 mg/dL 5-40 [facility] Serum or plasma creatinine m easurement (mass/volume)Ordered By: Alexander Steiner on 03-02-2023 Creatinine [Mass/Vol] 0.70 mg/dL 0.70-1.30 [facility] Comment on above: The validity of the calculated GFR & GFRAA in patients over 70 years has not been determined. Clinical correlation is essential. Serum or plasma low density lipoprotein (LDL) cholesterol measurement (mass/volume)Ordered By: Alexander Steiner on 03-02-2023 Cholesterol in LDL [Mass/Vol] 61 mg/dL 0-130 [facility] Serum or plasma urea nitroge n measurement (mass/volume)Ordered By: Alexander Steiner on 03-02-2023 Urea nitrogen [Mass/Vol] 11 mg/dL 7-18 [facility] Thin prep Papanicolaou smear with manual screeningOrdered By: Alexander Steiner 03-02-2023 Thin prep Papanicolaou smear with manual screening 18 U/L 15-37 [facility] Thin prep Papanicolaou smear with manual screening 7 5-15 [facility] No Panel InformationOrdered By: Alejandro Machado on 01-04-2023 Estimated GFR (MDRD) Amer 127 mL/min >60 [facility] Comment on above: GFR Calc Estimated GFR (MDRD) Non-Af Amer 105 mL/min >60 [facility] Comment on above: Non- GFR Calc Serum or plasma creatinine m easurement (mass/volume)Ordered By: Alejandro Machado on 01-04-2023 Creatinine [Mass/Vol] 0.76 mg/dL 0.70-1.30 [facility] Comment on above: The validity of the calculated GFR & GFRAA in patients over 70 years has not been determined. Clinical correlation is essential. No Panel InformationOrdered By: Alexander Steiner on 12-27-2022 Thyroid Stimulating Hormone (TSH) 1.15 uIU/mL 0.358-3.74 [facility] CBC,PLATELETSon 12-02-2022 Erythrocyte distribution width (RBC) [Ratio] 15.5 % High 10.9 - 14.3 % [facility] Hematocrit (Bld) [Volume fraction] 38.0 % Low 39.6 - 48.8 % [facility] Hemoglobin (Bld) [Mass/Vol] 12.0 g/dL Low 13.4 - 16.8 g/dL [facility] Interpretation and review of laboratory results Abnormal [facility] MCH (RBC) [Entitic mass] 26.7 pg 26.1 - 33.3 pg [facility] MCHC (RBC) [Mass/Vol] 31.6 g/dL Low 31.9 - 36.5 g/dL [facility] MCV (RBC) [Entitic vol] 84.6 fL 79.0 - 94.5 fL [facility] Platelet mean volume (Bld) [Entitic vol] 10.3 fL 8.7 - 12.3 fL [facility] Platelets (Bld) [#/Vol] 288 10*3/uL 146 - 337 K/uL [facility] RBC (Bld) [#/Vol] 4.49 10*6/uL [facility] WBC (Bld) [#/Vol] 8.71 10*3/uL 3.73 - 10. 10 K/uL [facility] GENERAL PROCEDUREon 12-03-19 23 Reji Goodrich MD - 12/02/2022 7:30 AM EDT BODY INTERVENTIONAL RADIOLOGY PROCEDURE NOTE PROCEDURE INDICATION: Right upper lobe enlarging lung nodule PROCEDURE PERFORMED: CT-guided lung biopsy FINDINGS/TARGET: Right upper raj lung nodule. Total of 6 passes taken. No pneumothorax on post imaging. Reji Goodrich MD 12/02/2022 9:11 AM AGENCY CASHIER(S): Reji Goodrich MD. CONSENT: Informed consent was obtained prior to the procedure after discussion of the risks, benefits, and alternatives of the procedure, and expected procedure outcomes were discussed with the patient and/or employee relations representative. The consent document was placed in chart. DID THIS PROCEDURE REQUIRE A UNIVERSAL PROTOCOL?: Yes. [place] Protocol is required. Preprocedure verification is complete. [...] Radiology to participate in this patient's care. [facility] Radiology Study observation (narrative) [facility] PT/INR POINT OF CAREon 12-02 Interpretation and review of laboratory results Abnormal [facility] PT/INR (POC Device) 1.4 High 0.9 - 1.1 [facility] Comment on above: INR results performe d by this method may be inaccurate in patients with a hematocrit <20% or >55%. Confirmation of test results by standard coagulation testing in the main clinical laboratory is recommended for these patients. Test performed at address of the patient encounter. [facility] Portable XR Chest Views APon 12-02-2022 IMPRESSION: 1. No evidence of pneumothorax. 2. Bilateral emphysematous changes. I personally viewed and interpreted these images and I have reviewed and approved this report. OLOGY EXAM: XR CHEST AP PORTABLE, 12/02/2022 09:33 [...] changes throughout the spine. RADIOLOGY Edouard Escobar MD, PhD - 12/02/2022 EXAM: XR CHEST AP [...] I have reviewed and approved this report. [facility] Radiology Study observation (narrative) [facility] Portable XR Chest Views APOr dered By: Edouard Escobar on 12-02-2022 [facility] Work Phone: CT CHEST WITHOUT CONTRASTon [...] disease and generalized bilateral centrilobular emphysema. Normal [facility] No Panel InformationOrdered By: Alexander Steiner on 11-01-2022 Thyroid Stimulating Hormone (TSH) 7.41 uIU/mL 0.358-3.74 [facility] [facility] Absolute lymphocyte countOrd ered By: Alexander Steiner on 08-31-2022 Lymphocytes Auto (Unsp spec) [#/Vol] 0.84 10*3/uL 0.83-4.51 [facility] Basophil percentageOrdered B y: Alexander Steiner on 08-31-2022 Basophils/100 WBC (Bld) 1.1 % 0-1 [facility] Bilirubin [Mass/Vol] 0.40 mg/dL 0.20-1.00 [facility] Comment on above: For patients on eltr ombopag therapy, use of Dimension [place] TBIL is not recommended. Chloride [Moles/Vol] 110 mmol/L 98-107 [facility] Cholesterol [Mass/Vol] 149 mg/dL <200 [facility] Comment on above: <200 mg/dL Desirable 200-240 mg/dL Borderline >240 mg/dL High Risk Eosinophils/100 WBC (Bld) 1.7 % 0-5 [facility] Glucose [Mass/Vol] 124 mg/dL 74-106 [facility] Comment on above: Fasting Glucose resu lt from 100 to 125 mg/dL suggests IMPAIRED HOMEOSTASIS per A.D.A. criteria. Neutrophils (Bld) [#/Vol] 5.5 10*3/uL 2.0-7.7 [facility] Neutrophils/100 WBC (Bld) 76.2 % 47-70 [facility] Potassium [Moles/Vol] 3.7 mmol/L 3.5-5.1 [facility] Protein [Mass/Vol] 7.5 g/dL 6.4-8.2 [facility] Sodium [Moles/Vol] 140 mmol/L 136-145 [facility] Triglyceride [Mass/Vol] 40 mg/dL <199 [facility] Comment on above: The drugs N-Acetylcy steine and Metamizole may falsely depress this assay.Serum Triglycerides Reference Interval Normal <150 mg/dL Borderline high 150 - 199 mg/dL High 200 - 499 mg/dL Very High > or = 500 mg/dL WBC (Bld) [#/Vol] 7.3 10*3/uL 4.4-11.0 [facility] Blood erythrocytes count (nu mber/volume)Ordered By: Alexander Steiner on 08-31-2022 RBC (Bld) [#/Vol] 4.37 10*6/uL 4.6-6.2 [facility] Blood hemoglobin measurement (mass/volume)Ordered By: Alexander Steiner on 08-31-2022 Hemoglobin (Bld) [Mass/Vol] 12.2 g/dL 13.0-16.5 [facility] Blood lymphocytes/100 leukoc ytesOrdered By: Alexander Steiner on 08-31-2022 Lymphocytes/100 WBC (Bld) 11.6 % 19-41 [facility] Blood monocytes/100 leukocyt esOrdered By: Alexander Steiner on 08-31-2022 Monocytes/100 WBC (Bld) 9.1 % 0-10 [facility] Blood platelet mean volumeOr dered By: Alexander Steiner on 08-31-2022 Platelet mean volume (Bld) [Entitic vol] 10.7 fL 6.2-12.0 [facility] Determination of erythrocyte mean corpuscular volume (MCV)Ordered By: Alexander Steiner on 08-31-2022 MCV (RBC) [Entitic vol] 88.1 fL 80-94 [facility] Hematocrit Auto (Bld) [Volum e fraction]Ordered By: Alexander Steiner on 08-31-2022 Hematocrit (Bld) [Volume fraction] 38.5 % 40-54 [facility] Laboratory - Chemistry and C hemistry - challengeOrdered By: [facility] 08-31-[facility]22 ALP [Catalytic activity/Vol] 98 U/L 45-117 [facility] ALT [Catalytic activity/Vol] 18 U/L 16-61 [facility] CO2 [Moles/Vol] 23.0 mmol/L 21.0-32.0 [facility] Globulin (S) [Mass/Vol] 3.7 g/dL 2.2-4.2 [facility] Urea nitrogen/Creatinine [Mass ratio] 19.1 mg/mg 10-20 [facility] Laboratory - Hematology and Cell countsOrdered By: [facility] 08-31-2022 Erythrocyte distribution width (RBC) [Entitic vol] 53.6 fL 35.1-43.9 [facility] Erythrocyte distribution width (RBC) [Ratio] 16.5 % 11.6-14.6 [facility] Immature granulocytes/100 WBC (Bld) 0.300 % 0.0-0.9 [facility] Comment on above: IG% - Immature Granu locytes (promyelocytes, myelocytes and metamyelocytes) > 1% indicates that a LEFT SHIFT is Present. MCH (RBC) [Entitic mass] 27.9 pg 27.0-32.0 [facility] Nucleated RBC/100 WBC (Bld) [Ratio] 0 % 0-5 [facility] MCHC Auto (RBC) [Mass/Vol]Or dered By: Alexander Steiner on 08-31-2022 MCHC (RBC) [Mass/Vol] 31.7 g/dL 32-36 [facility] No Panel InformationOrdered By: Alexander Steiner on 08-31-2022 Estimated GFR (MDRD) Amer 123 mL/min >60 [facility] Comment on above: GFR Calc Estimated GFR (MDRD) Non-Af Amer 101 mL/min >60 [facility] Comment on above: Non- GFR Calc Thyroid Stimulating Hormone (TSH) 4.32 uIU/mL 0.358-3.74 [facility] Vitamin D 25-Hydroxy 42.4 ng/mL [facility] Comment on above: Vitamin D 25(OH) Sta tus Range Deficiency <20 ng/mL (50nmol/L) Insufficiency 20 - 30 ng/mL (50 - 75 nmol/L) Sufficiency 30 - 100 ng/mL (75 - 250 nmol/L) Toxicity >100 ng/mL (>250 nmol/L) Platelets bldOrdered By: Alexander Steiner on 08-31-2022 Platelets (Bld) [#/Vol] 289 10*3/uL 150-450 [facility] Serum or plasma albumin maddie urement (mass/volume)Ordered By: Alexander Steiner on 08-31-2022 Albumin [Mass/Vol] 3.8 g/dL 3.2-5.0 [facility] Serum or plasma albumin/glob ulin mass ratioOrdered By: Alexander Steiner 08-31-2022 Albumin/Globulin [Mass ratio] 1.0 {ratio} 0.9-2.4 [facility] Serum or plasma calcium maddie urement (mass/volume)Ordered By: Alexander Steiner 08-31-2022 Calcium [Mass/Vol] 9.1 mg/dL 8.5-10.1 [facility] Serum or plasma cholesterol in HDL measurement (mass/volume)Ordered By: Alexander Steiner on 08-31-2022 Cholesterol in HDL [Mass/Vol] 81 mg/dL >40 [facility] Comment on above: The drugs N-Acetylcy steine and Metamizole may falsely depress this assay. Reference Range HDL <40 mg/dL Low HDL Cholesterol HDL >or= 60 mg/dL High HDL Cholesterol Serum or plasma cholesterol in VLDL measurement (mass/volume)Ordered By: Alexander Steiner on 08-31-2022 Cholesterol in VLDL [Mass/Vol] 8 mg/dL 5-40 [facility] Serum or plasma creatinine m easurement (mass/volume)Ordered By: Alexander Steiner on 08-31-2022 Creatinine [Mass/Vol] 0.78 mg/dL 0.70-1.30 [facility] Comment on above: The validity of the calculated GFR & GFRAA in patients over 70 years has not been determined. Clinical correlation is essential. Serum or plasma low density lipoprotein (LDL) cholesterol measurement (mass/volume)Ordered By: Alexander Steiner on 08-31-2022 Cholesterol in LDL [Mass/Vol] 60 mg/dL 0-130 [facility] Serum or plasma urea nitroge n measurement (mass/volume)Ordered By: Alexander Steiner on 08-31-2022 Urea nitrogen [Mass/Vol] 15 mg/dL 7-18 [facility] Thin prep Papanicolaou smear with manual screeningOrdered By: Alexander Steiner on 08-31-2022 Thin prep Papanicolaou smear with manual screening 17 U/L 15-37 [facility] Thin prep Papanicolaou smear with manual screening 7 5-15 [facility] Basophil percentageOrdered B y: Dr. Nolen on 08-26-2022 Bilirubin [Mass/Vol] 0.40 mg/dL 0.20-1.00 [facility] Comment on above: For patients on eltr ombopag therapy, use of Dimension [place] TBIL is not recommended. Chloride [Moles/Vol] 113 mmol/L 98-107 [facility] Glucose [Mass/Vol] 112 mg/dL 74-106 [facility] Comment on above: Fasting Glucose resu lt from 100 to 125 mg/dL suggests IMPAIRED HOMEOSTASIS per A.D.A. criteria. Potassium [Moles/Vol] 3.7 mmol/L 3.5-5.1 [facility] Protein [Mass/Vol] 7.1 g/dL 6.4-8.2 [facility] Sodium [Moles/Vol] 143 mmol/L 136-145 [facility] Laboratory - Chemistry and C hemistry - challengeOrdered By: Dr. Nolen on 08-26-2022 ALP [Catalytic activity/Vol] 83 U/L 45-117 [facility] ALT [Catalytic activity/Vol] 20 U/L 16-61 [facility] CO2 [Moles/Vol] 22.0 mmol/L 21.0-32.0 [facility] Free T4 [Mass/Vol] 1.23 ng/dL 0.76-1.46 [facility] Globulin (S) [Mass/Vol] 3.2 g/dL 2.2-4.2 [facility] Urea nitrogen/Creatinine [Mass ratio] 16.3 mg/mg 10-20 [facility] No Panel InformationOrdered By: Dr. Nolen on 08-26-2022 Estimated Creatinine Clearance Calc 62.45 ml/min [facility] Estimated GFR (MDRD) Amer 120 mL/min >60 [facility] Comment on above: GFR Calc Estimated GFR (MDRD) Non-Af Amer 99 mL/min >60 [facility] Comment on above: Non- GFR Calc Thyroid Stimulating Hormone (TSH) 4.95 uIU/mL 0.358-3.74 [facility] Vitamin D 25-Hydroxy 35.2 ng/mL [facility] Comment on above: Vitamin D 25(OH) Sta tus Range Deficiency <20 ng/mL (50nmol/L) Insufficiency 20 - 30 ng/mL (50 - 75 nmol/L) Sufficiency 30 - 100 ng/mL (75 - 250 nmol/L) Toxicity >100 ng/mL (>250 nmol/L) Serum or plasma albumin maddie urement (mass/volume)Ordered By: Dr. Nolen on 08-26-2022 Albumin [Mass/Vol] 3.9 g/dL 3.2-5.0 [facility] Serum or plasma albumin/glob ulin mass ratioOrdered By: Dr. Nolen on 08-26-2022 Albumin/Globulin [Mass ratio] 1.2 {ratio} 0.9-2.4 [facility] Serum or plasma calcium maddie urement (mass/volume)Ordered By: Dr. Nolen on 08-26-2022 Calcium [Mass/Vol] 8.8 mg/dL 8.5-10.1 [facility] Serum or plasma creatinine m easurement (mass/volume)Ordered By: Dr. Nolen on 08-26-2022 Creatinine [Mass/Vol] 0.80 mg/dL 0.70-1.30 [facility] Comment on above: The validity of the calculated GFR & GFRAA in patients over 70 years has not been determined. Clinical correlation is essential. Serum or plasma urea nitroge n measurement (mass/volume)Ordered By: Dr. Nolen on 08-26-2022 Urea nitrogen [Mass/Vol] 13 mg/dL 7-18 [facility] Thin prep Papanicolaou smear with manual screeningOrdered By: Dr. Nolen on 08-26-2022 Thin prep Papanicolaou smear with manual screening 17 U/L 15-37 [facility] Thin prep Papanicolaou smear with manual screening 8 5-15 [facility] No Panel InformationOrdered By: Dr. Otto on 07-16-2022 Prostate Specific Antigen Screen 1.90 ng/mL 0.00-4.00 [facility] Comment on above: This test was perfor med using the TPSA assay method for [employer] chemistry system. Values obtained with differentassay methods cannot be used interchangably.When changing PSA assays in the course of monitoring apatient, additional sequential testing should be carriedout to confirm baseline values. CT [facility] IMPRESSION: 1. Irregular right upper lobe [...] approved this report. OLOGY EXAM: CT CHEST WITHOUT CONTRAST, 11/10/2021 11:23 [...] stable since April 2017. RADIOLOGY Rafaela Garcia MD - 11/10/2021 EXAM: CT CHEST WITHOUT CONTRAST, [...] have reviewed and approved this report. [facility] Radiology Study observation (narrative) [facility] CT Chest WO contrastOrdered By: Rafaela Garcia on 11-10-2021 [facility] Work Phone: Absolute lymphocyte counton 08-25-2021 Lymphocytes Auto (Unsp spec) [#/Vol] 1.72 10*3/uL 0.83-4.51 [facility] Work Phone: [phone] Basophil percentageon 2021 Basophils/100 WBC (Bld) 1.2 % 0-1 [facility] Work Phone: [phone] Bilirubin [Mass/Vol] 0.40 mg/dL 0.20-1.00 [facility] Work Phone: [phone] Comment on above: For patients on eltr ombopag therapy, use of Dimension [place] TBIL is not recommended. Chloride [Moles/Vol] 107 mmol/L 98-107 [facility] Work Phone: Eosinophils/100 WBC (Bld) 4.6 % 0-5 [facility] Work Phone: Glucose [Mass/Vol] 106 mg/dL 74-106 [facility] Work Phone: Comment on above: Fasting Glucose resu lt from 100 to 125 mg/dL suggests IMPAIRED HOMEOSTASIS per A.D.A. criteria. Neutrophils (Bld) [#/Vol] 4.1 10*3/uL 2.0-7.7 [facility] Work Phone: [phone] Neutrophils/100 WBC (Bld) 58.8 % 47-70 [facility] Work Phone: [phone] Potassium [Moles/Vol] 3.0 mmol/L 3.5-5.1 [facility] Work Phone: [phone] Protein [Mass/Vol] 7.3 g/dL 6.4-8.2 [facility] Work Phone: [phone] Sodium [Moles/Vol] 142 mmol/L 136-145 [facility] Work Phone: [phone] Testosterone [Mass/Vol] 791.07 ng/dL [facility] Work Phone: Comment on above: CENTRAL 90% REFERENC E RANGES MALE AGE <50 197.44 - 669.58 ng/dL MALE AGE > or = 50 187.72 - 684.19 ng/dL FEMALE AGE <50 8.38 - 35.01 ng/dL FEMALE AGE > or = 50 <7.00 - 35.92 ng/dL Effective as of 10/20/20 WBC (Bld) [#/Vol] 6.9 10*3/uL 4.4-11.0 [facility] Work Phone: Blood erythrocytes count (nu mber/volume)on 08-25-2021 RBC (Bld) [#/Vol] 4.60 10*6/uL 4.6-6.2 [facility] Work Phone: Blood hemoglobin measurement (mass/volume)on 08-25-2021 Hemoglobin (Bld) [Mass/Vol] 13.1 g/dL 13.0-16.5 [facility] Work Phone: Blood lymphocytes/100 leukoc yteson 08-25-2021 Lymphocytes/100 WBC (Bld) 25.0 % 19-41 [facility] Work Phone: Blood monocytes/100 leukocyt eson 08-25-2021 Monocytes/100 WBC (Bld) 10.0 % 0-10 [facility] Work Phone: Blood platelet mean volumeon 08-25-2021 Platelet mean volume (Bld) [Entitic vol] 10.5 fL 6.2-12.0 [facility] Work Phone: Determination of erythrocyte mean corpuscular volume (MCV)on 08-25-2021 MCV (RBC) [Entitic vol] 87.4 fL 80-94 [facility] Work Phone: Hematocrit Auto (Bld) [Volum e fraction]on 08-25-2021 Hematocrit (Bld) [Volume fraction] 40.2 % 40-54 [facility] Work Phone: Laboratory - Chemistry and C hemistry - challengeon 08-25-2021 ALP [Catalytic activity/Vol] 102 U/L 45-117 [facility] Work Phone: ALT [Catalytic activity/Vol] 20 U/L 16-61 [facility] Work Phone: CO2 [Moles/Vol] 25.0 mmol/L 21.0-32.0 [facility] Work Phone: Globulin (S) [Mass/Vol] 3.7 g/dL 2.2-4.2 [facility] Work Phone: Urea nitrogen/Creatinine [Mass ratio] 14.8 mg/mg 10-20 [facility] Work Phone: Laboratory - Hematology and Cell countson 08-25-2021 Erythrocyte distribution width (RBC) [Entitic vol] 45.0 fL 35.1-43.9 [facility] Work Phone: Erythrocyte distribution width (RBC) [Ratio] 14.1 % 11.6-14.6 [facility] Work Phone: Immature granulocytes/100 WBC (Bld) 0.400 % 0.0-0.9 [facility] Work Phone: Comment on above: IG% - Immature Granu locytes (promyelocytes, myelocytes and metamyelocytes) > 1% indicates that a LEFT SHIFT is Present. MCH (RBC) [Entitic mass] 28.5 pg 27.0-32.0 [facility] Work Phone: Nucleated RBC/100 WBC (Bld) [Ratio] 0 % 0-5 [facility] Work Phone: MCHC Auto (RBC) [Mass/Vol]on 08-25-2021 MCHC (RBC) [Mass/Vol] 32.6 g/dL 32-36 [facility] Work Phone: No Panel Informationon 08-25 Estimated GFR (MDRD) Amer 118 mL/min >60 [facility] Work Phone: Comment on above: GFR Calc Estimated GFR (MDRD) Non-Af Amer 97 mL/min >60 [facility] Work Phone: Comment on above: Non- GFR Calc Thyroid Stimulating Hormone (TSH) 4.99 uIU/mL 0.358-3.74 [facility] Work Phone: Vitamin D 25-Hydroxy 42.3 ng/mL [facility] Work Phone: Comment on above: Vitamin D 25(OH) Sta tus Range Deficiency <20 ng/mL (50nmol/L) Insufficiency 20 - 30 ng/mL (50 - 75 nmol/L) Sufficiency 30 - 100 ng/mL (75 - 250 nmol/L) Toxicity >100 ng/mL (>250 nmol/L) Platelets bldon 08-25-2021 Platelets (Bld) [#/Vol] 286 10*3/uL 150-450 [facility] Work Phone: Serum or plasma albumin maddie urement (mass/volume)on 08-25-2021 Albumin [Mass/Vol] 3.6 g/dL 3.2-5.0 [facility] Work Phone: Serum or plasma albumin/glob ulin mass ratioon 08-25-2021 Albumin/Globulin [Mass ratio] 1.0 {ratio} 0.9-2.4 [facility] Work Phone: Serum or plasma calcium maddie urement (mass/volume)on 08-25-2021 Calcium [Mass/Vol] 9.2 mg/dL 8.5-10.1 [facility] Work Phone: Serum or plasma creatinine m easurement (mass/volume)on 08-25-2021 Creatinine [Mass/Vol] 0.81 mg/dL 0.70-1.30 [facility] Work Phone: Comment on above: The validity of the calculated GFR & GFRAA in patients over 70 years has not been determined. Clinical correlation is essential. Serum or plasma urea nitroge n measurement (mass/volume)on 08-25-2021 Urea nitrogen [Mass/Vol] 12 mg/dL 7-18 [facility] Work Phone: [phone] Thin prep Papanicolaou smear with manual screeningon 08-25-2021 Thin prep Papanicolaou smear with manual screening 18 U/L 15-37 [facility] Work Phone: [phone] Thin prep Papanicolaou smear with manual screening 10 5-15 [facility] Work Phone: Basophil percentageon 2021 Bilirubin [Mass/Vol] 0.60 mg/dL 0.20-1.00 [facility] Work Phone: Comment on above: For patients on eltr ombopag therapy, use of Dimension [place] TBIL is not recommended. Chloride [Moles/Vol] 111 mmol/L 98-107 [facility] Work Phone: Glucose [Mass/Vol] 96 mg/dL 74-106 [facility] Work Phone: [phone] Potassium [Moles/Vol] 4.0 mmol/L 3.5-5.1 [facility] Work Phone: [phone] Protein [Mass/Vol] 7.3 g/dL 6.4-8.2 [facility] Work Phone: [phone] Sodium [Moles/Vol] 139 mmol/L 136-145 [facility] Work Phone: Laboratory - Chemistry and C hemistry - challengeon 07-09-2021 ALP [Catalytic activity/Vol] 84 U/L 45-117 [facility] Work Phone: ALT [Catalytic activity/Vol] 21 U/L 16-61 [facility] Work Phone: CO2 [Moles/Vol] 23.0 mmol/L 21.0-32.0 [facility] Work Phone: [phone] Free T4 [Mass/Vol] 1.35 ng/dL 0.76-1.46 [facility] Work Phone: [phone] Globulin (S) [Mass/Vol] 3.4 g/dL 2.2-4.2 [facility] Work Phone: Urea nitrogen/Creatinine [Mass ratio] 14.9 mg/mg 10- [facility] Work Phone: No Panel Informationon 07-09 Estimated GFR (MDRD) Amer 119 mL/min >60 [facility] Work Phone: Comment on above: GFR Calc Estimated GFR (MDRD) Non-Af Amer 98 mL/min >60 [facility] Work Phone: Comment on above: Non- GFR Calc Thyroid Stimulating Hormone (TSH) 3.05 uIU/mL 0.358-3.74 [facility] Work Phone: Vitamin D 25-Hydroxy 39.2 ng/mL [facility] Work Phone: Comment on above: Vitamin D 25(OH) Sta tus Range Deficiency <20 ng/mL (50nmol/L) Insufficiency 20 - 30 ng/mL (50 - 75 nmol/L) Sufficiency 30 - 100 ng/mL (75 - 250 nmol/L) Toxicity >100 ng/mL (>250 nmol/L) Serum or plasma albumin maddie urement (mass/volume)on 07-09-2021 Albumin [Mass/Vol] 3.9 g/dL 3.2-5.0 [facility] Work Phone: Serum or plasma albumin/glob ulin mass ratioon 07-09-2021 Albumin/Globulin [Mass ratio] 1.1 {ratio} 0.9-2.4 [facility] Work Phone: Serum or plasma calcium maddie urement (mass/volume)on 07-09-2021 Calcium [Mass/Vol] 8.7 mg/dL 8.5-10.1 [facility] Work Phone: Serum or plasma creatinine m easurement (mass/volume)on 07-09-2021 Creatinine [Mass/Vol] 0.81 mg/dL 0.70-1.30 [facility] Work Phone: Comment on above: The validity of the calculated GFR & GFRAA in patients over 70 years has not been determined. Clinical correlation is essential. Serum or plasma urea nitroge n measurement (mass/volume)on 07-09-2021 Urea nitrogen [Mass/Vol] 12 mg/dL 7-18 [facility] Work Phone: Thin prep Papanicolaou smear with manual screeningon 07-09-2021 Thin prep Papanicolaou smear with manual screening 21 U/L 15-37 [facility] Work Phone: Thin prep Papanicolaou smear with manual screening 5 5-15 [facility] Work Phone: Laboratory - Chemistry and C hemistry - challengeon 05-11-2021 Free T4 [Mass/Vol] 1.22 ng/dL 0.76-1.46 [facility] Work Phone: No Panel Informationon 05-11 Thyroid Stimulating Hormone (TSH) 6.17 uIU/mL 0.358-3.74 [facility] Work Phone: CT CHEST WITH CONTRASTon [...] wall lesions are identified. Additional Findings: None. [employer]ator: [employer] imaging reveals no abnormalities not already visible on the cross-section images. [facility] Edouard Escobar MD, PhD - 11/12/2020 EXAM: CT CHEST WITH [...] wall lesions are identified. Additional Findings: None. [employer] Fab[employer]ator: [employer] imaging reveals no abnormalities not already visible [...] suggestive of benign disease. 2. Interval thyroidectomy. U [facility] CT CHEST WITH CONTRASTOrdere d By: Edouard Escobar on 11-12-2020 [facility] Work Phone: CREAT/GFRon 11-11-2020 Creatinine [Mass/Vol] 0.67 mg/dL Low 0.70 - 1.30 mg/dL [facility] Est Gfr, (Poc Device) >60 >=60 mL/min/1.73 sq m [facility] Interpretation and review of laboratory results Abnormal [facility] Test performed at address of the patient encounter. 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 Mesentery/Peritoneum : No ascites or hypermetabolic mass lesions. Vasculature: [...] No mass, adenopathy, or fluid collection. 4. EXTREMITIES/SKELETON : No FDG avid osseous process. No destructive/traumati c bony abnormality. ACTIONABLE RESULT: FOLLOW-UP Acuity: Actionable Findings: Endocrine (thyroid) Routing Code: EMI_1 Recommendation: US THYROID/PARATHYROID Time Frame: non-urgent, but prompt follow-up. COMMUNICATION: Results will be communicated with the ordering provider via [employer] staff message or phone message by [employer] within 2 business days of report finalization. Algorithms for management of incidental imaging findings can be found on the [facility] Intranet Sharepoint site at: [email or web address] [email or web address] [email or web address] Hide Grader: CORNELL Transcribe Date/Time: Jul 14 2020 8:39A Dictated by : JUAN SHEEHAN MD This examination was interpreted and the report reviewed and electronically signed by: JUAN SHEEHAN MD on Jul 14 2020 9:10AM EST [id number] CN ACTIONABLE Invalid Interpretation Code [facility] Vital Signs Date Time Vital Sign Value Performing Clinician Facility 01-10-2025 09:30-0400 Body weight 50.[address] Alexander Steiner MD Work Phone: [facility] 01-03-2025 14:13-0400 Body weight 49.[address] Alexander Steiner MD Work Phone: [facility] 12-28-2024 13:21-0400 Heart rate 78 /min Dr. Alexander Steiner MD Work Phone: [phone] [place] [address] 12-28-2024 13:21-0400 Respiratory rate 17 /min Dr. Alexander Steiner MD Work Phone: [phone] [place] [address] 12-28-2024 09:00-0400 Body temperature 97.7 [degF] Dr. Alexander Steiner MD Work Phone: [phone] [place] [address] 12-28-2024 09:00-0400 Diastolic blood pressure 83 mm[Hg] Dr. Alexander Steiner MD Work Phone: [phone] [place] [address] 12-28-2024 09:00-0400 SaO2% (BldA) [Mass fraction] 96 % Dr. Alexander Steiner MD Work Phone: 0(508)872-999638 [place] [address] 12-28-2024 09:00-0400 Systolic blood pressure 169 mm[Hg] Dr. Alexander Steiner MD Work Phone: 4(435)005-047238 [place] [address] 12-26-2024 21:09-0400 Body height 170.[address] Alexander Steiner MD Work Phone: 1(076)240-129338 [place] [address] 12-26-2024 21:09-0400 Body mass index (BMI) [Ratio] 17.6 kg/m2 Dr. Alexander Steiner MD Work Phone: 6(325)567-513438 [place] [address] 12-26-2024 21:09-0400 Body weight [address] Alexander Steiner MD Work Phone: 9(137)581-586938 [place] [address] 12-26-2024 15:26-0400 Inhaled oxygen flow rate 2 L/min Dr. Alexander Steiner MD Work Phone: 9(082)367-233238 [place] [address] 12-11-2024 15:28-0400 Body temperature 98.2 [degF] Dr. Alexander Steiner MD Work Phone: 4(671)784-165938 [place] [address] 12-11-2024 15:28-0400 Diastolic blood pressure 70 mm[Hg] Dr. Alexander Steiner MD Work Phone: 4(538)930-228838 [place] [address] 12-11-2024 15:28-0400 Heart rate 80 /min Dr. Alexander Steiner MD Work Phone: 8(111)392-021038 [place] [address] 12-11-2024 15:28-0400 Respiratory rate 30 /min Dr. Alexander Steiner MD Work Phone: 0(863)674-321038 [place] [address] 12-11-2024 15:28-0400 SaO2% (BldA) [Mass fraction] 92 % Dr. Alexander Steiner MD Work Phone: 2(623)021-675638 [place] [address] 12-11-2024 15:28-0400 Systolic blood pressure 139 mm[Hg] Dr. Alexander Steiner MD Work Phone: 7(274)487-838238 [place] [address] 12-11-2024 09:18-0400 Body height 170.[address] Alexander Steiner MD Work Phone: 4(175)150-023438 [place] [address] 12-11-2024 09:18-0400 Body mass index (BMI) [Ratio] 17.6 kg/m2 Dr. Alexander Steiner MD Work Phone: 2(238)203-215138 [place] [address] 12-11-2024 09:18-0400 Body weight [address] Alexander Steiner MD Work Phone: 7(214)919-566938 [place] [address] 12-04-2024 13:25-0400 Body height 170.[address] Alexander Steiner MD Work Phone: 1(661)552-065338 [place] [address] 12-04-2024 13:25-0400 Body mass index (BMI) [Ratio] 18 kg/m2 Dr. Alexander Steiner MD Work Phone: 8(262)926-564238 [place] [address] 12-04-2024 13:25-0400 Body weight 52.[address] Alexander Steiner MD Work Phone: 8(934)542-237438 [place] [address] 12-04-2024 13:25-0400 Diastolic blood pressure 70 mm[Hg] Dr. Alexander Steiner MD Work Phone: 0(539)971-422938 [place] [address] 12-04-2024 13:25-0400 Heart rate 105 /min Dr. Alexander Steiner MD Work Phone: 0(557)101-290238 [place] [address] 12-04-2024 13:25-0400 Respiratory rate 18 /min Dr. Alexander Steiner MD Work Phone: 1(875)063-275038 [place] [address] 12-04-2024 13:25-0400 SaO2% (BldA) [Mass fraction] 98 % Dr. Alexander Steiner MD Work Phone: [facility] 12-04-2024 13:25-0400 Systolic blood pressure 127 mm[Hg] Dr. Alexander Steiner MD Work Phone: [facility] 12-02-2024 13:31-0400 Diastolic blood pressure 78 mm[Hg] Dr. Alexander tSeiner MD Work Phone: 0(147)379-375143 [place] [address] 12-02-2024 13:31-0400 Heart rate 72 /min Dr. Alexander Steiner MD Work Phone: 2(049)335-026443 [place] [address] 12-02-2024 13:31-0400 Respiratory rate 16 /min Dr. Alexander Steiner MD Work Phone: 4(156)447-993443 [place] [address] 12-02-2024 13:31-0400 Systolic blood pressure 150 mm[Hg] Dr. Alexander Steiner MD Work Phone: 6(415)868-851343 [place] [address] 12-02-2024 12:59-0400 Body temperature 97 [degF] Dr. Alexander Steiner MD Work Phone: 7(614)509-430243 [place] [address] 12-02-2024 12:59-0400 SaO2% (BldA) [Mass fraction] 99 % Dr. Alexander Steiner MD Work Phone: [facility] 12-02-2024 09:16-0400 Body mass index (BMI) [Ratio] 18.1 kg/m2 Dr. Alexander Steiner MD Work Phone: [facility] 12-02-2024 09:16-0400 Body weight 52.[address] Alexander Steiner MD Work Phone: [facility] 11-15-2024 10:24-0400 Diastolic blood pressure 71 mm[Hg] Saurav Machuca MD Work Phone: [facility] 11-15-2024 10:24-0400 Heart rate 56 /min Saurav Machuca MD Work Phone: [facility] 11-15-2024 10:24-0400 SaO2% (BldA) [Mass fraction] 95 % Saurav Machuca MD Work Phone: [facility] 11-15-2024 10:24-0400 Systolic blood pressure 144 mm[Hg] Saurav Machuca MD Work Phone: [facility] 11-15-2024 09:44-0400 Respiratory rate 16 /min Saurav Machuca MD Work Phone: [facility] 11-15-2024 07:20-0400 Body mass index (BMI) [Ratio] 18.61 kg/m2 Saurav Machuca MD Work Phone: [facility] 11-15-2024 07:20-0400 Body temperature 98.2 [degF] Saurav Machuca MD Work Phone: [facility] 11-15-2024 07:20-0400 Body weight 53.9 kg Saurav Machuca MD Work Phone: [facility] 10-31-2024 13:05-0400 Body height 170.[address] Alexander Steiner MD Work Phone: [facility] 10-31-2024 13:05-0400 Body mass index (BMI) [Ratio] 18.2 kg/m2 Dr. Alexander Steiner MD Work Phone: [facility] 10-31-2024 13:05-0400 Body temperature 97.4 [degF] Dr. Alexander Steiner MD Work Phone: [facility] 10-31-2024 13:05-0400 Body weight 52.[address] Alexander Steiner MD Work Phone: [facility] 10-31-2024 13:05-0400 Diastolic blood pressure 69 mm[Hg] Dr. Alexander Steiner MD Work Phone: [facility] 10-31-2024 13:05-0400 Heart rate 74 /min Dr. Alexander Steiner MD Work Phone: [facility] 10-31-2024 13:05-0400 Respiratory rate 14 /min Dr. Alexander Steiner MD Work Phone: [facility] 10-31-2024 13:05-0400 SaO2% (BldA) [Mass fraction] 97 % Dr. Alexander Steiner MD Work Phone: [facility] 10-31-2024 13:05-0400 Systolic blood pressure 172 mm[Hg] Dr. Alexander Steiner MD Work Phone: 2(137)456-941943 [place] [address] 10-21-2024 11:04-0400 Body temperature 96.5 [degF] Dr. Alexander Steiner MD Work Phone: 4(523)560-161543 [place] [address] 10-21-2024 11:04-0400 Diastolic blood pressure 55 mm[Hg] Dr. Alexander Steiner MD Work Phone: 6(739)574-334543 [place] [address] 10-21-2024 11:04-0400 Heart rate 61 /min Dr. Alexander Steiner MD Work Phone: 8(737)872-519743 [place] [address] 10-21-2024 11:04-0400 Respiratory rate 16 /min Dr. Alexander Steiner MD Work Phone: 9(054)765-843238 [place] [address] 10-21-2024 11:04-0400 SaO2% (BldA) [Mass fraction] 100 % Dr. Alexander Steiner MD Work Phone: [facility] 10-21-2024 11:04-0400 Systolic blood pressure 148 mm[Hg] Dr. Alexander Steiner MD Work Phone: 1(786)073-432343 [place] [address] 10-21-2024 10:12-0400 Body height 170.[address] Alexander Steiner MD Work Phone: [facility] 10-21-2024 10:12-0400 Body mass index (BMI) [Ratio] 18.8 kg/m2 Dr. Alexander Steiner MD Work Phone: 7(278)827-021343 [place] [address] 10-21-2024 10:12-0400 Body weight 54.[address] Alexander Steiner MD Work Phone: 9(644)437-016038 [address] 09-30-2024 11:32-0400 Body height 170.2 cm Valerie Joe [employer] Work Phone: [facility] 09-30-2024 11:32-0400 Body mass index (BMI) [Ratio] 18.61 kg/m2 Valerie Joe [employer] EX[employer]ER Work Phone: [facility] 09-30-2024 11:32-0400 Body temperature 97.5 [degF] Valerie Joe [employer] EXAMINER Work Phone: [facility] 09-30-2024 11:32-0400 Body weight 53.89 kg Valerie Bloomir [employer] EXAMINER Work Phone: [facility] 09-30-2024 11:32-0400 Diastolic blood pressure 68 mm[Hg] Valerie Joe [employer] EXAMINER Work Phone: [facility] 09-30-2024 11:32-0400 SaO2% (BldA) [Mass fraction] 98 % Valerie Bloomir [employer] EXAMINER Work Phone: [facility] 09-30-2024 11:32-0400 Systolic blood pressure 124 mm[Hg] Valerie Joe [employer] EXAMINER Work Phone: [facility] 2024 14:26-0400 Body temperature 98.4 [degF] Dr. Alexander Steiner MD Work Phone: [facility] 2024 14:26-0400 Diastolic blood pressure 58 mm[Hg] Dr. Alexander Steiner MD Work Phone: [facility] 2024 14:26-0400 Heart rate 88 /min Dr. Alexander Steiner MD Work Phone: [facility] 2024 14:26-0400 Respiratory rate 14 /min Dr. Alexander Steiner MD Work Phone: [facility] 2024 14:26-0400 SaO2% (BldA) [Mass fraction] 96 % Dr. Alexander Steiner MD Work Phone: [facility] 2024 14:26-0400 Systolic blood pressure 102 mm[Hg] Dr. Alexander Steiner MD Work Phone: [facility] 08-29-2024 07:21-0400 Body mass index (BMI) [Ratio] 18.8 kg/m2 Dr. Alexander Steiner MD Work Phone: [facility] 08-29-2024 07:21-0400 Body weight 54.[address] Alexander Steiner MD Work Phone: [facility] 08-29-2024 07:21-0400 Diastolic blood pressure 77 mm[Hg] Dr. Alexander Steiner MD Work Phone: 2(186)673-605743 [place] [address] 08-29-2024 07:21-0400 Heart rate 93 /min Dr. Alexander Steiner MD Work Phone: 6(107)404-328143 [place] [address] 08-29-2024 07:21-0400 Respiratory rate 18 /min Dr. Alexander Steiner MD Work Phone: 5(928)947-768143 [place] [address] 08-29-2024 07:21-0400 SaO2% (BldA) [Mass fraction] 97 % Dr. Alexander Steiner MD Work Phone: [facility] 08-29-2024 07:21-0400 Systolic blood pressure 126 mm[Hg] Dr. Alexander Steiner MD Work Phone: [facility] 07-08-2024 11:09-0400 Body height 170.[address] Alexander Steiner MD Work Phone: [facility] 07-08-2024 11:09-0400 Body mass index (BMI) [Ratio] 19.1 kg/m2 Dr. Alexander Steiner MD Work Phone: 2(176)326-071943 [place] [address] 07-08-2024 11:09-0400 Body temperature 98.1 [degF] Dr. Alexander Steiner MD Work Phone: [facility] 07-08-2024 11:09-0400 Body weight 55.[address] Alexander Steiner MD Work Phone: [facility] 07-08-2024 11:09-0400 Diastolic blood pressure 72 mm[Hg] Dr. Alexander Steiner MD Work Phone: [facility] 07-08-2024 11:09-0400 Heart rate 83 /min Dr. Alexander Steiner MD Work Phone: [facility] 07-08-2024 11:09-0400 Respiratory rate 16 /min Dr. Alexander Steiner MD Work Phone: [facility] 07-08-2024 11:09-0400 SaO2% (BldA) [Mass fraction] 98 % Dr. Alexander Steiner MD Work Phone: [facility] 07-08-2024 11:09-0400 Systolic blood pressure 138 mm[Hg] Dr. Alexander Steiner MD Work Phone: [facility] 02-29-2024 11:32-0500 Body height 170.[address] Alejandro Machado DO Work Phone: [facility] 02-29-2024 11:32-0500 Body mass index (BMI) [Ratio] 20.2 kg/m2 Dr. Alejandro Machado DO Work Phone: [facility] 02-29-2024 11:32-0500 Body temperature 97.4 [degF] Dr. Alejandro Machado DO Work Phone: [facility] 02-29-2024 11:32-0500 Body weight 58.[address] Alejandro Machado DO Work Phone: [facility] 02-29-2024 11:32-0500 Diastolic blood pressure 73 mm[Hg] Dr. Alejandro Machado DO Work Phone: [facility] 02-29-2024 11:32-0500 Heart rate 76 /min Dr. Alejandro Machado DO Work Phone: [facility] 02-29-2024 11:32-0500 Respiratory rate 18 /min Dr. Alejandro Machado DO Work Phone: [facility] 02-29-2024 11:32-0500 SaO2% (BldA) [Mass fraction] 98 % Dr. Alejandro Machado DO Work Phone: [facility] 02-29-2024 11:32-0500 Systolic blood pressure 121 mm[Hg] Dr. Alejandro Machado DO Work Phone: [facility] 07-27-2023 10:00-0400 Body height 170.[address] Alexander Steiner Work Phone: [facility] 07-27-2023 10:00-0400 Body mass index (BMI) [Ratio] 20.4 kg/m2 Dr. Alexander Steiner Work Phone: [facility] 07-27-2023 10:00-0400 Body temperature 98.8 [degF] Dr. Alexander Steiner Work Phone: [facility] 07-27-2023 10:00-0400 Body weight 59.[address] Alexander Steiner Work Phone: [facility] 07-27-2023 10:00-0400 Diastolic blood pressure 75 mm[Hg] Dr. Alexander Steiner Work Phone: [facility] 07-27-2023 10:00-0400 Heart rate 91 /min Dr. Alexander Steiner Work Phone: [facility] 07-27-2023 10:00-0400 Respiratory rate 18 /min Dr. Alexander Steiner Work Phone: [facility] 07-27-2023 10:00-0400 SaO2% (BldA) [Mass fraction] 94 % Dr. Alexander Steiner Work Phone: [facility] 07-27-2023 10:00-0400 Systolic blood pressure 128 mm[Hg] Dr. Alexander Steiner Work Phone: [facility] 04-27-2023 09:27-0500 Body height 170.[address] Alexander Steiner Work Phone: [facility] 04-27-2023 09:27-0500 Body mass index (BMI) [Ratio] 20.3 kg/m2 Dr. Alexander Steiner Work Phone: [facility] 04-27-2023 09:27-0500 Body temperature 97.6 [degF] Dr. Alexander Steiner Work Phone: [facility] 04-27-2023 09:27-0500 Body weight 58.[address] Alexander Steiner Work Phone: [facility] 04-27-2023 09:27-0500 Diastolic blood pressure 68 mm[Hg] Dr. Alexander Steiner Work Phone: 0(627)127-559143 [place] [address] 04-27-2023 09:27-0500 Heart rate 83 /min Dr. Alexander Steiner Work Phone: 5(479)024-202338 [address] 04-27-2023 09:27-0500 Respiratory rate 18 /min Dr. Alexander Steiner Work Phone: 1(471)100-897238 [address] 04-27-2023 09:27-0500 SaO2% (BldA) [Mass fraction] 95 % Dr. Alexander Steiner Work Phone: 3(592)142-717243 [place] [address] 04-27-2023 09:27-0500 Systolic blood pressure 118 mm[Hg] Dr. Alexander Steiner Work Phone: 4(194)139-704338 [address] 02-23-2023 09:20-0500 Body height 170.[address] Alexander Steiner Work Phone: 9(817)283-235543 [place] [address] 02-23-2023 09:20-0500 Body mass index (BMI) [Ratio] 20.4 kg/m2 Dr. Alexander Steiner Work Phone: [facility] 02-23-2023 09:20-0500 Body temperature 98 [degF] Dr. Alexander Steiner Work Phone: 9(083)386-199643 [place] [address] 02-23-2023 09:20-0500 Body weight 59.[address] Alexander Steiner Work Phone: [facility] 02-23-2023 09:20-0500 Diastolic blood pressure 69 mm[Hg] Dr. Alexander Steiner Work Phone: 1(451)054-023843 [place] [address] 02-23-2023 09:20-0500 Heart rate 73 /min Dr. Alexander Steiner Work Phone: 7(381)374-972438 [place] [address] 02-23-2023 09:20-0500 Respiratory rate 16 /min Dr. Alexander Steiner Work Phone: 6(461)120-439638 [place] [address] 02-23-2023 09:20-0500 SaO2% (BldA) [Mass fraction] 96 % Dr. Alexander Steiner Work Phone: 8(963)390-159338 [place] [address] 02-23-2023 09:20-0500 Systolic blood pressure 122 mm[Hg] Dr. Alexander Steiner Work Phone: 6(330)805-156438 [place] [address] 01-18-2023 13:50-0400 Body mass index (BMI) [Ratio] 20.4 kg/m2 Dr. Alexander Steiner Work Phone: 2(455)011-545738 [place] [address] 01-18-2023 13:50-0400 Body temperature 97.8 [degF] Dr. Alexander Steiner Work Phone: 4(988)719-337938 [place] [address] 01-18-2023 13:50-0400 Body weight 59.[address] Alexander Steiner Work Phone: 0(367)487-768938 [place] [address] 01-18-2023 13:50-0400 Diastolic blood pressure 64 mm[Hg] Dr. Alexander Steiner Work Phone: 2(688)453-396738 [place] [address] 01-18-2023 13:50-0400 Heart rate 85 /min Dr. Alexander Steiner Work Phone: 3(222)521-739638 [place] [address] 01-18-2023 13:50-0400 Respiratory rate 18 /min Dr. Alexander Steiner Work Phone: 5(346)084-229838 [place] [address] 01-18-2023 13:50-0400 SaO2% (BldA) [Mass fraction] 95 % Dr. Alexander Steiner Work Phone: 2(206)394-126343 [place] [address] 01-18-2023 13:50-0400 Systolic blood pressure 135 mm[Hg] Dr. Alexander Steiner Work Phone: 6(257)486-050638 [place] [address] 12-12-2022 10:32-0400 Body mass index (BMI) [Ratio] 20.3 kg/m2 Dr. Alexander Steiner Work Phone: [facility] 12-12-2022 10:32-0400 Body temperature 97.2 [degF] Dr. Alexander Steiner Work Phone: [facility] 12-12-2022 10:32-0400 Body weight 59.[address] Alexander Steiner Work Phone: [facility] 12-12-2022 10:32-0400 Diastolic blood pressure 71 mm[Hg] Dr. Alexander Steiner Work Phone: [facility] 12-12-2022 10:32-0400 Heart rate 78 /min Dr. Alexander Steiner Work Phone: [facility] 12-12-2022 10:32-0400 Respiratory rate 18 /min Dr. Alexander Steiner Work Phone: [facility] 12-12-2022 10:32-0400 SaO2% (BldA) [Mass fraction] 96 % Dr. Alexander Steiner Work Phone: [facility] 12-12-2022 10:32-0400 Systolic blood pressure 154 mm[Hg] Dr. Alexander Steiner Work Phone: [facility] 12-02-2022 08:38-0400 Body temperature 98.01 [degF] Reji Goodrich MD Work Phone: [facility] 12-02-2022 08:38-0400 Diastolic blood pressure 65 mm[Hg] Reji Goodrich MD Work Phone: [facility] 12-02-2022 08:38-0400 Heart rate 67 /min Reji Goodrich MD Work Phone: [facility] 12-02-2022 08:38-0400 Respiratory rate 16 /min Reji Goodrich MD Work Phone: [facility] 12-02-2022 08:38-0400 SaO2% (BldA) [Mass fraction] 95 % Reji Goodrich MD Work Phone: [facility] 12-02-2022 08:38-0400 Systolic blood pressure 140 mm[Hg] Reji Goodrich MD Work Phone: [facility] 12-02-2022 06:09-0400 Body height 170.2 cm Reji Goodrich MD Work Phone: [facility] 12-02-2022 06:09-0400 Body mass index (BMI) [Ratio] 20.05 kg/m2 Reji Goodrich MD Work Phone: [facility] 12-02-2022 06:09-0400 Body weight 58.06 kg Reji Goodrich MD Work Phone: [facility] 11-04-2022 10:10-0400 Body height 170.2 cm [facility] Provider [facility] 11-04-2022 10:10-0400 Body mass index (BMI) [Ratio] 20.42 kg/m2 [facility] Provider [facility] 11-04-2022 10:10-0400 Body temperature 97.5 [degF] [facility] Provider [facility] 11-04-2022 10:10-0400 Body weight 59.15 kg [facility] Provider [facility] 11-04-2022 10:10-0400 Diastolic blood pressure 55 mm[Hg] [facility] Provider [facility] 11-04-2022 10:10-0400 Heart rate 75 /min [facility] Provider [facility] 11-04-2022 10:10-0400 Respiratory rate 16 /min [facility] Provider [facility] 11-04-2022 10:10-0400 SaO2% (BldA) [Mass fraction] 95 % [facility] Provider [facility] 11-04-2022 10:10-0400 Systolic blood pressure 119 mm[Hg] [facility] Advanced Practice Provider [facility] 08-26-2022 09:54-0400 Body temperature 96.2 [degF] Dr. Alexander Steiner Work Phone: [facility] 08-26-2022 09:54-0400 Diastolic blood pressure 48 mm[Hg] Dr. Alexander Steiner Work Phone: [facility] 08-26-2022 09:54-0400 Heart rate 65 /min Dr. Alexander Steiner Work Phone: [facility] 08-26-2022 09:54-0400 Respiratory rate 16 /min Dr. Alexander Steiner Work Phone: [facility] 08-26-2022 09:54-0400 SaO2% (BldA) [Mass fraction] 99 % Dr. Alexander Stiener Work Phone: [facility] 08-26-2022 09:54-0400 Systolic blood pressure 123 mm[Hg] Dr. Alexander Steiner Work Phone: [facility] 08-26-2022 09:17-0400 Body height 170.[address] Alexander Steiner Work Phone: [facility] 08-26-2022 09:17-0400 Body mass index (BMI) [Ratio] 20.3 kg/m2 Dr. Alexander Steiner Work Phone: [facility] 08-26-2022 09:17-0400 Body weight 58.[address] Alexander Steiner Work Phone: [facility] 07-05-2022 09:50-0400 Body height 170.[address] Alexander Steiner Work Phone: [facility] 07-05-2022 09:50-0400 Body mass index (BMI) [Ratio] 21 kg/m2 Dr. Alexander Steiner Work Phone: [facility] 07-05-2022 09:50-0400 Body temperature 98.2 [degF] Dr. Alexander Steiner Work Phone: [facility] 07-05-2022 09:50-0400 Body weight [address] Alexander Steiner Work Phone: [facility] 07-05-2022 09:50-0400 Diastolic blood pressure 64 mm[Hg] Dr. Alexander Steiner Work Phone: [facility] 07-05-2022 09:50-0400 Heart rate 93 /min Dr. Alexander Steiner Work Phone: [facility] 07-05-2022 09:50-0400 Respiratory rate 20 /min Dr. Alexander Steiner Work Phone: [facility] 07-05-2022 09:50-0400 SaO2% (BldA) [Mass fraction] 92 % Dr. Alexander Steiner Work Phone: [facility] 07-05-2022 09:50-0400 Systolic blood pressure 124 mm[Hg] Dr. Alexander Steiner Work Phone: [facility] 04-26-2022 08:31-0500 Body mass index (BMI) [Ratio] 21.2 kg/m2 Dr. Alexander Steiner Work Phone: [facility] 04-26-2022 08:31-0500 Body weight 61.[address] Alexander Steiner Work Phone: [facility] 04-26-2022 08:31-0500 Diastolic blood pressure 68 mm[Hg] Dr. Alexander Steiner Work Phone: [facility] 04-26-2022 08:31-0500 Heart rate 92 /min Dr. Alexander Stiener Work Phone: [facility] 04-26-2022 08:31-0500 Respiratory rate 16 /min Dr. Alexander Steiner Work Phone: [facility] 04-26-2022 08:31-0500 Systolic blood pressure 134 mm[Hg] Dr. Alexander Steiner Work Phone: 4(959)358-595843 [place] [address] 11-10-2021 11:46-0400 Body height 170.2 cm Micah Trinh MD Work Phone: [facility] 11-10-2021 11:46-0400 Body mass index (BMI) [Ratio] 20.74 kg/m2 Micah Trinh MD Work Phone: [facility] 11-10-2021 11:46-0400 Body temperature 97.3 [degF] Micah Trinh MD Work Phone: [facility] 11-10-2021 11:46-0400 Body weight 60.06 kg Micah Trinh MD Work Phone: [facility] 11-10-2021 11:46-0400 Diastolic blood pressure 64 mm[Hg] Micah Trinh MD Work Phone: [facility] 11-10-2021 11:46-0400 Heart rate 87 /min Micah Trinh MD Work Phone: [facility] 11-10-2021 11:46-0400 Respiratory rate 16 /min Micah Trinh MD Work Phone: [facility] 11-10-2021 11:46-0400 SaO2% (BldA) [Mass fraction] 96 % Micah Trinh MD Work Phone: [facility] 11-10-2021 11:46-0400 Systolic blood pressure 136 mm[Hg] Micah Trinh MD Work Phone: [facility] 08-26-2021 13:42-0400 Body height 170.18 cm [facility] Work Phone: 08-26-2021 13:42-0400 Body mass index (BMI) [Ratio] 20.7 kg/m2 [facility] Work Phone: 08-26-2021 13:42-0400 Body temperature 98 [degF] [facility] Work Phone: 08-26-2021 13:42-0400 Body weight 59.87 kg [facility] Work Phone: 08-26-2021 13:42-0400 Diastolic blood pressure 60 mm[Hg] [facility] Work Phone: 08-26-2021 13:42-0400 Heart rate 86 /min [facility] Work Phone: 08-26-2021 13:42-0400 Respiratory rate 16 /min [facility] Work Phone: 08-26-2021 13:42-0400 SaO2% (BldA) [Mass fraction] 94 % [facility] Work Phone: 08-26-2021 13:42-0400 Systolic blood pressure 141 mm[Hg] [facility] Work Phone: 04-20-2021 07:12-0500 Body height 170.18 cm Dr. Alexander Steiner Work Phone: [facility] Work Phone: 04-20-2021 07:12-0500 Body weight 62.[address] Alexander Steiner Work Phone: [facility] Work Phone: 04-20-2021 07:12-0500 Diastolic blood pressure 75 mm[Hg] Dr. Alexander Steiner Work Phone: [facility] Work Phone: 04-20-2021 07:12-0500 Heart rate 79 /min Dr. Alexander Steiner Work Phone: [facility] Work Phone: 04-20-2021 07:12-0500 Respiratory rate 18 /min Dr. Alexander Steiner Work Phone: [facility] Work Phone: 04-20-2021 07:12-0500 SaO2% (BldA) [Mass fraction] 98 % Dr. Alexander Steiner Work Phone: [facility] Work Phone: 04-20-2021 07:12-0500 Systolic blood pressure 135 mm[Hg] Dr. Alexander Steiner Work Phone: [facility] Work Phone: 11-11-2020 16:08-0400 Body mass index (BMI) [Ratio] 20.31 kg/m2 Micah Trinh MD Work Phone: [facility] 11-11-2020 16:08-0400 Body temperature 97.9 [degF] Micah Trinh MD Work Phone: [facility] 11-11-2020 16:08-0400 Body weight 58.83 kg Micah Trinh MD Work Phone: [facility] 11-11-2020 16:08-0400 Diastolic blood pressure 72 mm[Hg] Micah Trinh MD Work Phone: [facility] 11-11-2020 16:08-0400 Heart rate 81 /min Micah Trinh MD Work Phone: [facility] 11-11-2020 16:08-0400 Respiratory rate 18 /min Micah Trinh MD Work Phone: [facility] 11-11-2020 16:08-0400 SaO2% (BldA) [Mass fraction] 96 % Micah Trinh MD Work Phone: [facility] 11-11-2020 16:08-0400 Systolic blood pressure 150 mm[Hg] Micah Trinh MD Work Phone: [facility] 11-11-2020 15:12-0400 Diastolic blood pressure 73 mm[Hg] Ingrid Lebron PA-C Work Phone: [facility] 11-11-2020 15:12-0400 Systolic blood pressure 145 mm[Hg] Ingrid Lebron PA-C Work Phone: [facility] 10-14-2020 14:590400 Body mass index (BMI) [Ratio] 20.3 kg/m2 Dr. Alexander Steiner Work Phone: [facility] Work Phone: Encounters Encounter Date Encounter Type Care Provider Facility Start: 01-23-2025 Encounter for other preprocedural examination [facility] Start: 01-17-2025 End: 01-17-2025 ambulatory Ray Demiter Facility:[facility] Start: 01-15-2025 End: 01-15-2025 ambulatory Alexander Steiner Facility:[facility] Start: 01-10-2025 End: 01-10-[address] Zuleyma Storm MD -[facility] Work Phone: Start: 01-10-2025 End: 01-10-[address] Alexander Steiner MD Work Phone: -[facility] Start: 01-06-2025 End: 01-06-[address] Alexander Steiner MD -Laboratory [address] Start: 01-06-2025 End: 01-06-2025 ambulatory Alexander Steiner Facility:[facility] Start: 01-03-2025 End: 01-03-[address] Zuleyma Storm MD -[facility] Work Phone: Start: 01-03-2025 End: 01-03-[address] Alexander Steiner MD Work Phone: -[facility] Start: 12-31-2024 End: 12-31-[address] Zuleyma Storm MD -Laboratory Work Phone: Start: 12-31-2024 End: 12-31-20[facility] Start: 12-28-2024 Non-patient / Non-visit Dr. Juliana Fisher MD -[facility] Work Phone: Start: 12-27-2024 ambulatory Alexander Steiner [facility] Start: 12-27-2024 End: 12-28-2024 Evaluation and management of inpatient Dr. Zuleyma Storm MD -[facility] Work Phone: Start: 12-27-2024 ambulatory Alexander Steiner [facility] Start: 12-27-2024 Non-patient / Non-visit Dr. Juliana Brooks MD -[facility] Start: 12-27-2024 Non-patient / Non-visit Dr. Emmett Storm MD -[facility] Start: 12-26-2024 Non-patient / Non-visit Dr. Juliana Fisher MD -[facility] Work Phone: Start: 12-26-2024 Non-patient / Non-visit Dr. Juliana Brooks MD -[facility] Work Phone: Start: 12-26-2024 Non-patient / Non-visit Dr. Emmett Storm MD -[facility] Start: 12-26-2024 ambulatory Didier Rodríguez [facility] Start: 12-11-2024 ambulatory Alexander Steiner [facility] Start: 12-11-2024 Non-patient / Non-visit Dr. Emmett Storm MD -[facility] Start: 12-11-2024 End: 12-11-2024 Admission to same day surgery center Dr. Zuleyma Storm MD -Endoscopy Work Phone: Start: 12-11-2024 End: 12-11-[address] Alexander Steiner MD Work Phone: -Endoscopy Start: 12-09-2024 End: 12-09-[address] Alexander Steiner MD Work Phone: -Laboratory Start: 12-09-2024 End: 12-09-[address] Alexander Steiner MD -Laboratory Work Phone: Start: 12-09-2024 End: 12-09-2024 ambulatory Alexander Steiner Facility:[facility] Start: 12-04-2024 End: 12-04-[address] Zuleyma Storm MD -[facility] Work Phone: Start: 12-04-2024 End: 12-04-[address] Alexander Steiner MD Work Phone: -[facility] Start: 12-03-2024 End: 12-03-2024 ambulatory [...] End: 11-28-2024 ambulatory Alexander Steiner Facility:[facility] Start: 11-21-2024 End: 11-29-2024 Telephone encounter Saurav Machuca MD Work Phone: General Surgery Comment on above: Patient Question Start: 11-20-2024 End: 11-20-2024 Patient encounter procedure Saurav Machuca MD Work Phone: General Surgery Comment on above: Matute's esophagus with dysplasia; Tubulovillous adenoma; Multiple polyps of sigmoid colon; Encounter for screening for malignant neoplasm of colon Start: 11-20-2024 End: 11-20-2024 ambulatory SAURAV MACHUCA Facility:[facility] Start: 11-15-2024 ambulatory SAURAV MACHUCA Facil ity:[facility] Start: 11-15-2024 End: 11-15-2024 Subsequent hospital visit by physician See [facility] Work Phone: Radiology Comment on above: 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 [K22.70] Start: 11-15-2024 ambulatory SAURAV Crowell ity:[facility] Start: 11-15-2024 End: 11-15-2024 Subsequent hospital visit [...] 10-31-[address] Alejandro Machado DO -[facility] Work Phone: Start: 10-31-2024 End: 10-31-[address] Alexander Steiner MD Work Phone: -[facility] Start: 10-29-2024 End: 10-29-[address] Alexander Steiner MD Work Phone: -Cat Scan [facility] Start: 10-29-2024 End: 10-29-[address] Alejandro Melgoza [facility] Work Phone: Start: 10-29-2024 End: 10-29-2024 ambulatory Alexander Steiner Facility:[facility] Start: 10-21-2024 End: 10-21-[address] Marcelino Nolen MD -Medical Out Work Phone: Start: 10-21-2024 End: 10-21-[address] Alexander Steiner MD Work Phone: -Medical Out Start: 10-15-2024 End: 10-18-2024 Telephone encounter Valerie Gaitan [employer] Work Phone: Ambulatory Surgery Comment on above: Orders Start: 10-02-2024 End: 10-02-[address] Alexander Steiner MD Work Phone: -Cat Scan [facility] Start: 10-02-2024 End: 10-02-[address] Alexander Steiner MD -Cat Scan [facility] Work Phone: Start: 10-02-2024 End: 10-02-2024 ambulatory Alexander Steiner Facility:[facility] Start: 09-30-2024 End: 09-30-2024 Patient encounter procedure Valerie Gaitan [employer] Work Phone: General Surgery Comment on above: Unintentional weight loss (Primary Dx); Fecal occult blood test positive; History of Matute's esophagus; Family history of colon cancer Start: 09-30-2024 End: 09-30-2024 ambulatory VALERIE GAITAN Facility:[facility] Start: 2024 End: 2024 Patient encounter procedure Jessie HARRISON -[facility] Work Phone: Start: 2024 End: [address] Alexander Steiner MD Work Phone: -[facility] Start: 09-20-2024 End: 09-20-[address] Alexander Steiner MD Work Phone: -Laboratory Specimen Start: 09-20-2024 End: 09-20-[address] Alexander Steiner MD -Laboratory Specimen Work Phone: Start: 09-19-2024 ambulatory Alexander Steiner [facility] Start: 09-19-2024 Non-patient / Non-visit Dr. Rita brown MD -[facility] Start: 09-19-2024 End: 09-20-[address] Alexander Steiner MD Work Phone: -Cardiovascular Services Start: 09-19-2024 End: 09-19-[address] Alexander Steiner MD -Cardiovascular Services Work Phone: Start: 09-19-2024 End: 09-19-2024 ambulatory Alexander Packerok Facility:[facility] Start: 09-16-2024 End: 09-16-[address] Alexander Steiner MD Work Phone: -Laboratory Start: 09-16-2024 End: 09-16-[address] Alexander Steiner MD -Laboratory Work Phone: Start: 09-16-2024 End: 09-16-2024 ambulatory Alexander Packerok Facility:[facility] Start: 09-11-2024 End: 09-11-[address] Alexander Steiner MD Work Phone: [facility] Work Phone: Start: 09-11-2024 End: 09-11-[address] Alexander Steiner MD -[facility] Work Phone: Start: 09-11-2024 End: 09-11-2024 ambulatory Alexander Packerok Facility:[facility] Start: 08-29-2024 End: 08-29-2024 Patient encounter procedure Laura TRUJILLO -[facility] Work Phone: Start: 08-29-2024 End: 08-29-[address] Alexander Steiner MD Work Phone: [facility] Work Phone: Start: 08-22-2024 End: 08-22-2024 Non-patient / Non-visit Dr. Sánchez Pena MD -[facility] Work Phone: Start: 08-22-2024 End: 08-22-[address] Alexander Steiner MD Work Phone: [facility] Work Phone: Start: 08-22-2024 End: 08-22-[address] Alexander Steiner MD -Cardiovascular Services Work Phone: Start: 08-22-2024 End: 08-22-2024 ambulatory Alexander Steiner Facility:[facility] Start: 08-12-2024 End: 08-12-[address] Alexander Steiner MD -Laboratory Work Phone: Start: 08-12-2024 End: 08-12-2024 ambulatory [facility] Facility:[facility] Start: 07-08-2024 End: 07-08-[address] Alejandro Machado DO -[facility] Work Phone: Start: 07-08-2024 End: 07-08-2024 ambulatory Alexander Steiner Facility:[facility] Start: 06-27-2024 End: 06-27-[address] Alexander Steiner MD Work Phone: [facility] Work Phone: Start: 06-27-2024 End: 06-27-[address] Alejandro Machado DO -Cat Scan, [facility] Work Phone: Start: 06-27-2024 End: 06-27-2024 ambulatory Alexander Juvenal Packerok Facility:[facility] Start: 05-28-2024 End: 05-28-[address] Alejandro Machado DO Work Phone: [facility] Work Phone: Start: 05-28-2024 End: 05-28-[address] Alexander Steiner MD -Radiology, [facility] Work Phone: Start: 05-28-2024 End: 05-28-2024 ambulatory Alexander Juvenal Jatin Facility:[facility] Start: 05-14-2024 End: 05-14-[address] Micah Jimenez MD -Laboratory Work Phone: Start: 05-14-2024 End: 05-14-2024 ambulatory Micah Jimenez Facility:[facility] Start: 04-12-2024 End: 04-12-[address] Alexander Steiner MD -Laboratory, Phy Office 3rd Flr Start: 04-12-2024 End: 04-12-2024 ambulatory [facility] Facility:[facility] Start: 03-26-2024 End: 03-26-[address] Alexander Steiner MD -Laboratory, Phy Office 3rd Flr Start: 03-26-2024 End: 03-26-2024 ambulatory [facility] Facility:[facility] Start: 03-06-2024 End: 03-06-[address] Alexander Steiner MD -Laboratory, Phy Office 3rd Flr Start: 03-06-2024 End: 03-06-2024 ambulatory [facility] Facility:[facility] Start: 02-29-2024 End: 02-29-[address] Alej[facility] Machado [facility] Work Phone: Start: 02-29-2024 End: 02-29-2024 ambulatory Alejandro Carter Facility:[facility] Start: 02-26-2024 End: 02-26-[address] Alejandro Machado DO -[facility] Work Phone: Start: 02-26-2024 End: 02-26-2024 ambulatory Alejandro Machado Facility:[facility] Start: 02-19-2024 End: 02-19-[address] Gregory Rodriguez MD -[facility] Work Phone: Start: 02-19-2024 End: 02-19-2024 ambulatory Gregory Rodriguez Facility:[facility] Start: 07-27-2023 End: 07-27-[address] Alexander Steiner Work Phone: [facility] Work Phone: Start: 07-24-2023 End: 07-24-[address] Alexander Steiner Work Phone: [facility] Work Phone: Start: 07-24-2023 End: 07-24-[address] Alexander Steiner Work Phone: [facility] Work Phone: Start: 04-27-2023 End: 04-27-[address] Alexander Steiner Work Phone: [facility] Work Phone: Start: 04-24-2023 End: 04-24-[address] Alexander Steiner Work Phone: [facility] Work Phone: Start: 04-24-2023 End: 04-24-[address] Alexander Steiner Work Phone: [facility] Work Phone: Start: 04-04-2023 End: 04-04-[address] Alexander Steiner Work Phone: [facility] Work Phone: Start: 04-04-2023 End: 04-04-[address] [facility] Start: 03-06-2023 End: 03-06-[address] Alexander Steiner Work Phone: [facility] Work Phone: Start: 03-06-2023 End: 03-06-[address] [facility] Work Phone: Start: 03-03-2023 End: 03-03-[address] Alexander Steiner Work Phone: [facility] Work Phone: Start: 03-03-2023 End: 03-03-[address] Alexander Steiner Work Phone: [facility] Office 3rd Flr Start: 03-02-2023 End: 03-02-[address] Alexander Steiner Work Phone: [facility] Work Phone: Start: 03-02-2023 End: 03-02-[address] Alexander Steiner Work Phone: [facility] Office 3rd Flr Start: 02-23-2023 End: 02-23-[address] Alexander Steiner Work Phone: [facility] Work Phone: Start: 01-26-2023 Non-patient / Non-visit Dr. Emmett Steiner Work Phone: [facility] Work Phone: Start: 01-26-[address] Alexander gonzalez Work Phone: [facility]-Radiation Oncology Start: 01-24-2023 Non-patient / Non-visit Dr. Emmett Steiner Work Phone: [facility] Work Phone: Start: 01-20-2023 Non-patient / Non-visit Dr. Emmett Steiner Work Phone: [facility] Work Phone: Start: 01-18-2023 End: 01-18-[address] Alexander Steiner Work Phone: [facility] Work Phone: Start: 01-16-2023 Non-patient / Non-visit Dr. Emmett Steiner Work Phone: [facility] Work Phone: Start: 01-11-2023 Non-patient / Non-visit Dr. Emmett Steiner Work Phone: [facility] Start: 01-10-2023 Non-patient / Non-visit Dr. Emmett Steiner Work Phone: [facility] Start: 01-04-2023 Non-patient / Non-visit Dr. Emmett Steiner Work Phone: [facility] Start: 01-02-[address] Brandi Steiner Work Phone: [facility] Start: 12-12-2022 End: 12-12-[address] Alexander Steiner Work Phone: [facility] Work Phone: Start: 12-02-2022 End: 12-02-2022 Subsequent hospital visit by physician Reji Goodrich MD Work Phone: Department of Radiology Comment on above: Arrived Start: 12-02-2022 End: 12-02-2022 Subsequent hospital visit by physician Reji Goodrich MD Work Phone: Department of Radiology Comment on above: Arrived Start: 11-04-2022 ambulatory [facility] Facility:[facility] Start: 11-04-2022 End: 11-04-2022 Office outpatient visit 15 minutes Dean Bedoya [employer] Work Phone: Division of Thoracic Surgery at [facility] Comment on above: Lung nodule (Primary Dx) Start: 11-01-2022 End: 11-01-2022 ambulatory [facility] Work Phone: Start: 11-01-2022 End: 11-01-2022 Patient encounter procedure [facility]-Laboratory, Phy Office 3rd Flr Start: 08-31-2022 End: 08-31-2022 Patient encounter procedure [facility]-Laboratory Work Phone: Start: 08-26-2022 End: 08-26-[address] Alexander Steiner Work Phone: [facility] Work Phone: Start: 08-26-2022 End: 08-26-[address] Alexander Steiner Work Phone: [facility]-Medical Out Start: 08-09-2022 End: 08-09-[address] Alexander Steiner Work Phone: [facility]-Outpatient Bone Densitometry Start: 07-16-2022 End: 07-16-[address] Alexander Steiner Work Phone: [facility] Work Phone: Start: 07-16-2022 End: 07-16-[address] Alexander Steiner Work Phone: [facility]-Laboratory Start: 07-05-2022 End: 07-05-[address] Alexander Steiner Work Phone: [facility] Start: 04-26-2022 End: 04-26-[address] Alexnader Steiner Work Phone: [facility] Start: 11-10-2021 End: 11-10-2021 Office outpatient visit 15 minutes Micah Trinh MD Work Phone: Division of Thoracic Surgery at [facility] Comment on above: Lung nodule (Primary Dx) Start: 11-10-2021 End: 11-10-2021 Subsequent hospital visit by physician Delia Mccauley [employer] Work Phone: [facility] Comment on above: Arrived Start: 08-26-2021 Patient encounter procedure [facility]-Medical Out Start: 08-25-2021 End: 08-25-2021 Patient encounter procedure [facility]-Laboratory, Phy Office 3rd Flr Start: 07-09-2021 End: 07-09-[address] [facility] Start: 05-11-2021 End: 05-11-[address] Alexander Steiner Work Phone: [facility]-Laboratory, [facility] Start: 04-20-2021 End: 04-20-[address] Alexander Steiner Work Phone: [facility] Start: 11-11-2020 End: 11-11-2020 Office outpatient visit 15 minutes Micah Trinh MD Work Phone: Division of Thoracic Surgery at [facility] Comment on above: Solitary lung nodule (Primary Dx) Start: 11-11-2020 End: 11-11-2020 Subsequent hospital visit by physician Ingrid Lebron PA-C Work Phone: [facility] Comment on above: Arrived Start: 10-14-[address] Brandi Steiner Work Phone: [facility] Start: 10-14-[address] Alejandro kothari DO Work Phone: [facility] Procedures Date Procedure Procedure Detail Performing Clinician Start: 01-15-2025 Urnls dip stick/tablet reagent auto microscopy Dr. Alexander Steiner MD Work Phone: Start: 12-28-[address] Alexander gonzalez MD Work Phone: Start: 12-26-[address] Alexander Steiner MD Work Phone: Start: 12-26-20[address]omy Dr[address] Alexander dunbar MD Work Phone: Start: 12-11-[address] Alexander Steiner MD Work Phone: Start: 11-29-2024 Measurement of occult blood in stool specimen using immunoassay Dr. Alexander Steiner MD Work Phone: Start: 11-15-2024 Colonoscopy flx dx w/collj spec when pfrmd Valerie Gaitan [employer] Work Phone: Start: 11-15-2024 Esophagogastroduodenoscopy transoral diagnostic Valerie Gaitan APRN.CNP Work Phone: Start: 10-29-2024 CT of thorax [...] CT of thorax with contrast Dr. Alexander Steinre MD Work Phone: Start: 05-28-2024 SARS-CoV-2, Influenza [...] 12-02-2022 Radiologic exam chest single view Marie Leroy MD Work Phone: Start: 12-02-2022 GENERAL PROCEDURE Reji Goodrich MD Work Phone: Start: 12-02-2022 End: 12-02-2022 Blood count complete automated Debbie Olvera [employer] Work Phone: Start: 11-04-2022 Follow-up visit Follow-up DEAN BEDOYA Start: 08-09-2022 Dual energy X-ray absorptiometry Dr. Alexander Steiner Work Phone: Start: 11-10-2021 Ct thorax w/o contrast material Delia Mccauley [employer]ER Work Phone: Start: 11-11-2020 Ct thorax w/contrast material Ingrid jernigan PAHenrryC Work Phone: Start: 11-11-2020 Creatinine blood Ingrid Lebron PAHenrryC Work Phone: Plan of Treatment Date Care Activity Detail Author Start: 01-17-2025 Patient encounter procedure Registered Clinical -Pulmonary Services/Neurology Work Phone: Start: 01-15-2025 Urine culture Urine Culture [facility] Start: 01-15-2025 End: 01-15-2025 Patient encounter procedure -Laboratory Phy Office 3rd Flr Start: 01-10-2025 End: 01-10-2025 Patient encounter procedure Low grade mucinous neoplasm of appendix -[facility] Work Phone: Start: 01-06-2025 End: 01-06-2025 Patient encounter procedure Departed Clinical -Laboratory Phy Office 3rd Flr Start: 12-28-2024 Patient discharge [facility] Start: 12-28-2024 [facility] Start: 12-27-2024 Admission procedure [facility] Start: 12-27-2024 Inhalation therapy procedure [facility] Start: 12-26-2024 Application of intermittent pneumatic compression device [facility] Start: 12-26-2024 Following clinical pathway protocol [facility] Start: 12-26-2024 Application of intermittent pneumatic compression device [facility] Start: 12-26-2024 Catheterization of vein [facility] Start: 12-26-2024 Elevation of head of bed [facility] Start: 12-26-2024 Introduction of urin minda catheter [facility] Start: 12-26-2024 Measuring intake and output [facility] Start: 12-26-2024 Notification of physician [facility] Start: 12-26-2024 Patient education [facility] Start: 12-26-2024 Procedures relating to eating and drinking [facility] Start: 12-26-2024 Taking patient vital signs [facility] Start: 12-26-2024 Wound care [facility] Start: 12-26-2024 [facility] Start: 12-26-2024 Consultation [facility] Start: 12-26-2024 Ambulation therapy management [facility] Start: 12-26-2024 Admission procedure [facility] Start: 12-26-2024 [facility] Start: 12-11-2024 Colonoscopy [facility] Start: 12-11-2024 Colsc flx w/rmvl of tumor polyp lesion snare tq COLONOSCOPY W/LESION REMOVAL [facility] Start: 12-11-2024 Colsc flx with direc ana submucosal njx any sbst COLONOSCOPY SUBMUCOUS NJX [facility] Start: 12-11-2024 [facility] Start: 12-04-2024 End: 12-04-2024 Patient encounter procedure 12/04/2024 2:45 PM EDT Office Visit General Surgery [address] [place] [address] Saurav Machuca MD [address] [place] [address] FU: Medical Clearance for colonoscopy. [facility] General Surgery Comment on above: FU: Medical Clearanc e for colonoscopy. [facility] Start: 12-02-2024 Administration of bl ood product [facility] Start: 12-02-2024 [facility] Start: 11-25-2024 Influenza vaccination Influenza Vacc ine (#1) [facility] Start: 11-20-2024 End: 11-20-2024 Patient encounter procedure 11/20/2024 11:45 AM EDT Office Visit General Surgery [address] [place] [address] Saurav Machuca MD [address] [place] [address] 11-15 EGD & Colonoscopy follow up w/RG General Surgery Comment on above: 11-15 EGD & Colonosc opy follow up w/RG Start: 11-15-2024 End: 11-15-2024 Patient encounter procedure 11/15/2024 8:00 AM EDT Appointment Ambulatory Surgery [address] [place] [address] Saurav Machuca MD [address] [place] [address] Ambulatory Surgery Start: 08-21-2025 Tetanus vaccination TETANUS [facility] Start: 10-21-2024 Intravenous infusion THER/PROP H/DIAG IV INF [facility] Start: 10-21-2024 Iv infusion therapy/prophylaxis /dx 1st to 1 hr THER/PROPH/DIAG IV INF [facility] Start: 10-21-2024 Vedolizumab therapy THER/PROPH /DIAG IV INF [facility] Start: 03-27-2024 Advance Directive Discussion Advance Directive Discussion [facility] Start: 03-27-2024 Medicare Advantage A nnual Wellness Visit Medicare Advantage Annual Wellness Visit [facility] Start: 11-26-2023 Covid-19 Vaccine () Covid-19 Vaccine () [facility] Start: 11-05-2023 Screening for malign ant neoplasm of lung LUNG CANCER SCREENING [facility] Start: 09-01-2023 Diabetes Screening Diabetes Screenin g [facility] Start: 11-25-2022 Influenza vaccination INFLUENZA VACC INE (#1) [facility] Start: 11-10-2022 Screening for malign ant neoplasm of lung LUNG CANCER SCREENING [facility] Start: 11-04-2022 End: 11-04-2022 Patient encounter procedure [facility] Start: 08-26-2022 Iv infusion therapy/prophylaxis /dx 1st to 1 hr THER/PROPH/DIAG IV INF [facility] Start: 04-10-2022 COVID-19 VACCINE (4 - Pfizer series) COVID-19 VACCINE (4 - Pfizer series) [facility] Start: 11-25-2021 Influenza vaccination INFLUENZA VACC INE (#1) [facility] Start: 11-11-2021 Screening for malign ant neoplasm of lung LUNG CANCER SCREENING [facility] Start: 11-10-2021 End: 11-10-2022 CT Chest WO contrast CT CHEST WITHOUT CONTRAST Imaging Routine Lung nodule Expected: 11/10/2021, Expires: 11/10/2022 [facility] Comment on above: Expected: 11/10/2021 , Expires: 11/10/2022 Start: 05-12-2021 End: 05-12-2021 Patient encounter procedure [facility] Start: 11-25-2020 Influenza vaccination INFLUENZA VACC INE (#1) [facility] Start: 11-14-2020 COVID-19 VACCINE (3 - Booster for Pfizer series) COVID-19 VACCINE (3 - Booster for Pfizer series) [facility] Start: 11-11-2020 End: 11-11-[address] CHEST WITHOUT CONTRAST Imaging Routine Solitary lung nodule Expected: 11/11/2020, Expires: 11/11/2021 [facility] Work Phone: Comment on above: Expected: 11/11/2020 , Expires: 11/11/2021 Start: 11-30-2018 Pneumococcal vaccination PNEUM OCOCCAL VACCINE SERIES (2 - PCV) [facility] Start: 2017 RSV Vaccine (1 - 1-d ose 75+ series) RSV Vaccine (1 - 1-dose 75+ series) [facility] Start: 09-25-2007 Pneumococcal vaccination [facility] Start: 01-31-1995 Urine microalbumin profile DTaP,Tdap,Td Vaccine (3 - Tdap) [facility] Start: 1992 Pneumococcal Vaccine : 50+ (1 of 1 - PCV) Pneumococcal Vaccine: 50+ (1 of 1 - PCV) [facility] Start: 1992 Shingrix Vaccine (1 of 2) Holland grix Vaccine (1 of 2) [facility] Start: 1992 Zoster vaccine hzv l cb for subcutaneous use ZOSTER (SHINGLES) VACCINE (1 of 2) [facility] Start: 09-25-1987 Colonoscopy COLORECTAL CAN CER SCREENING DISCUSSION [facility] Start: 09-25-1987 Screening for malign ant neoplasm of colon COLORECTAL CANCER SCREENING DISCUSSION [facility] Start: 1961 Third diphtheria, te tanus and acellular pertussis (DTaP) vaccination TDAP (ADULT) [facility] Start: 1960 Anxiety Screening Anxiety Screening [facility] Start: 1960 Depression Screening Depression Scre ening [facility] Start: 1960 Tetanus vaccination TETANUS [facility] Start: 1942 Hepatitis C antibody , confirmatory test HEPATITIS C VIRUS SCREENING [facility] Start: 1942 Potassium [Moles/vol ume] in Serum or Plasma POTASSIUM [facility] Start: 1942 Thyroid stimulating hormone measurement TSH [facility] Colonoscopy [facility] CT Chest W contrast IV [facility] CT Chest W contrast IV [facility] CT Chest W contrast IV [facility] CT Chest W contrast IV [facility] CT Chest WO contrast [facility] CT Chest WO contrast [facility] CT Chest WO contrast [facility] End: 12-02-2022 CT Guidance for biopsy of Mediastinum [facility] Work Phone: Comment on above: 1 Occurrences starti ng 12/02/2022 until 12/02/2022 DXA Bone [Mass/Area] Bone density [facility] End: 09-30-2025 EGD DIAGNOSTIC EGD DIAGNOSTIC Endoscopy Routine Unintentional weight loss Fecal occult blood test positive History of Matute's esophagus 1 Occurrences starting 09/30/2024 until 09/30/2025 [facility] Comment on above: 1 Occurrences starti ng 09/30/2024 until 09/30/2025 End: 09-30-2025 Flexible sigmoidoscopy study COLONOSCOPY DIAGNOSTIC Endoscopy Routine Unintentional weight loss Fecal occult blood test positive Family history of colon cancer 1 Occurrences starting 09/30/2024 until 09/30/2025 [facility] Work Phone: Comment on above: 1 Occurrences starti ng 09/30/2024 until 09/30/2025 Positron emission tomography with computed tomography [facility] SURG PATH REQUEST [facility] Comment on above: Release Upon Orderin g for 1 Occurrences starting 12/02/2022, 1 completed T4 free measurement [facility] Thyroid stimulating hormone measurement [facility] Tissue Pathology bio psy report [facility] Work Phone: Comment on above: Release Upon Orderin g for 1 Occurrences starting 11/15/2024, 1 completed US Carotid arteries [facility] Vitamin D, 25-hydrox y measurement [facility] XR Abdomen Supine an d Upright XR ABDOMEN 1V SUPINE Radiology Routine 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 Unintentional weight loss Family history of colon cancer 11/15/2024 10:57 AM EDT [facility] Work Phone: End: 12-15-2025 XR Abdomen Supine and Upright XR ABDOMEN 1V SUPINE Radiology Routine 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 Unintentional weight loss Family history of colon cancer 1 Occurrences starting 11/15/2024 until 12/15/2025 [facility] Comment on above: 1 Occurrences starti ng 11/15/2024 until 12/15/2025 [facility] Immunizations Immunization Date Immunization Notes Care Provider Paddy roberts 12-08-2021 influenza virus vaccine, unspecified formulation [facility] Cts Advanced Practice Provider [facility] 06-14-2020 SARS-COV-2 (COVID-19 ), Mrna, Lnp-s, Pf, 30 Mcg/0.3 Ml Dose PFIZER Ingrid Lebron PA-C Work Phone: [facility] 05-25-2020 SARS-COV-2 (COVID-19 ), Mrna, Lnp-s, Pf, 30 Mcg/0.3 Ml Dose PFIZER Ingrid Lebron PA-C Work Phone: [facility] 01-06-2020 influenza virus vaccine, unspecified formulation Delia Mccauley APRN-SCHOOL PSYCHOLOGICAL EXAMINER Work Phone: [facility] 01-31-1985 diphtheria and tetan us toxoids, adsorbed for pediatric use Valerie Joe DRIER FEEDER.SCHOOL PSYCHOLOGICAL EXAMINER Work Phone: [facility] 12-22-1969 diphtheria and tetan us toxoids, adsorbed for pediatric use Valerie Joe DRIER FEEDER.SCHOOL PSYCHOLOGICAL EXAMINER Work Phone: [facility] 01-08-1968 tetanus toxoid, adsorbed Valerie Joe DRIER FEEDER.SCHOOL PSYCHOLOGICAL EXAMINER Work Phone: [facility] 12-03-1964 tetanus toxoid, adsorbed Valerie Joe DRIER FEEDER.SCHOOL PSYCHOLOGICAL EXAMINER Work Phone: [facility] 02-12-1962 tetanus toxoid, adsorbed Valerie Joe DRIER FEEDER.SCHOOL PSYCHOLOGICAL EXAMINER Work Phone: [facility] 12-31-1959 trivalent poliovirus vaccine, live, oral Valerie Joe DRIER FEEDER.SCHOOL PSYCHOLOGICAL EXAMINER Work Phone: [facility] 02-04-1959 trivalent poliovirus vaccine, live, oral Valerie Joe DRIER FEEDER.SCHOOL PSYCHOLOGICAL EXAMINER Work Phone: [facility] 02-04-1959 vaccinia (smallpox) vaccine, diluted Valerie Joe DRIER FEEDER.SCHOOL PSYCHOLOGICAL EXAMINER Work Phone: [facility] 10-10-1957 trivalent poliovirus vaccine, live, oral Valerie Joe DRIER FEEDER.SCHOOL PSYCHOLOGICAL EXAMINER Work Phone: [facility] 09-12-1957 trivalent poliovirus vaccine, live, oral Valerie Joe DRIER FEEDER.SCHOOL PSYCHOLOGICAL EXAMINER Work Phone: [facility] Payers Date Payer Category Payer Self-pay [id number] 2020 Medicare MEDICARE [employer] HMO PPO MEDICARE [employer] HMO PPO [id number] 2020-Present [address] [place] [address] [id number] 2020 Medicare MEDICARE [employer] HMO PPO MEDICARE [employer] HMO PPO [id number] 2020-Present [address] [place] [address] [id number] 2019 Medicare (Managed Care) HUMANA M EDICARE [id number] 2013 Private Health Insurance [id number] 2007 Medicare [id number] 1940 Unknown [id number] 2.16.840.1.128056.3.579. 2.594 1942 Unknown [id number] 2.16.840.1.952741.3.579. 2.594 Unknown [id number] 2.16.840.1.219556.3.579. 2.462 Unknown [id number] 2.16.840.1.374061.3.579. 2.462 Unknown [id number] 2.16.840.1.804746.3.579. 2.462 Unknown [id number] 2.16.840.1.769779.3.579. 2.462 Unknown [id number] 2.16.840.1.271565.3.579. 2.462 Unknown [id number] 2.16.840.1.973597.3.579. 2.462 Unknown [id number] 2.16.840.1.038699.3.579. 2.462 Unknown [id number] 2.16.840.1.428545.3.579. 2.462 Unknown [id number] 2.16.840.1.458019.3.579. 2.462 Unknown [id number] 2.16.840.1.651101.3.579. 2.462 Unknown [id number] 2.16.840.1.230711.3.579. 2.462 Unknown [id number] 2.16.840.1.353411.3.579. 2.462 Unknown [id number] 2.16.840.1.067646.3.579. 2.462 Unknown [id number] 2.16.840.1.212469.3.579. 2.462 Unknown [id number] 2.16.840.1.763952.3.579. 2.462 Unknown [id number] 2.16.840.1.834480.3.579. 2.462 Unknown [id number] 2.16.840.1.152013.3.579. 2.462 Unknown [id number] 2.840.1.875444.3.579. 2.462 Unknown [id number] 2.840.1.803768.3.579. 2.462 Unknown [id number] 2.840.1.795726.3.579. 2.462 Unknown [id number] 2.840.1.347829.3.579. 2.462 Unknown [id number] 2.840.1.815318.3.579. 2.462 Unknown [id number] 2.840.1.496430.3.579. 2.462 Unknown [id number] 2.840.1.823141.3.579. 2.462 Unknown [id number] 2.840.1.218045.3.579. 2.462 Unknown [id number] 2.840.1.425243.3.579. 2.462 Unknown [id number] 2.840.1.537979.3.579. 2.462 Unknown [id number] 2.840.1.544054.3.579. 2.462 Unknown [id number] 2.16.840.1.426236.3.579. 2.462 Unknown [id number] 2.16.840.1.369704.3.579. 2.462 Unknown [id number] 2.840.1.655643.3.579. 2.462 Unknown [id number] 2.16.840.1.318621.3.579. 2.462 Unknown [id number] 2.16.840.1.479802.3.579. 2.462 Unknown [id number] 2.16.840.1.436459.3.579. 2.462 Unknown [id number] 2.16.840.1.437948.3.579. 2.462 Unknown [id number] 2.16.840.1.851051.3.579. 2.462 Unknown [id number] 2.16.840.1.242594.3.579. 2.462 Unknown [id number] 2.16.840.1.359728.3.579. 2.462 Unknown [id number] 2.16.840.1.471168.3.579. 2.462 Unknown [id number] 2.16840.1.744842.3.579. 2.462 Unknown [id number] 2.16840.1.395391.3.579. 2.462 Unknown [id number] 2.16.840.1.372762.3.579. 2.462 Unknown [id number] 2.16840.1.471523.3.579. 2.462 Unknown [id number] 2.16840.1.044460.3.579. 2.462 Unknown [id number] 2.840.1.421105.3.579. 2.462 Social History Date Type Detail Facility Start: 09-03-2020 End: 12-02-2024 Tobacco smoking status NHIS Former smoker [facility] Start: 05-09-1962 End: 05-09-2012 History of tobacco use Current smoker [facility] Start: 05-09-1962 End: 05-09-2012 History of tobacco use Cigarette Smoker [facility] Start: 09-03-2020 End: 09-30-2024 Cigarettes smoked current (pack per day) - Reported [facility] Start: 07-16-2020 End: 09-03-2020 Tobacco use and exposure Current user [facility] History of tobacco use Snuff User [facility] History of tobacco use Chews Tobacco [facility] Start: 11-11-2020 End: 11-04-2022 Alcohol intake Ex-drinker (finding) [facility] Start: 11-11-2020 History SDOH Financial 5 [facility] Start: 11-11-2020 History SDOH Food Worry 1 [facility] Start: 11-11-2020 History SDOH Transpo rt Med 2 [facility] Start: 09-09-2020 Tobacco Comment 09/09/20- 1 pac k of chewing tobacco in a 1-1.5/week? [facility] Start: 1940 Sex Assigned At Not on file [facility] Exposure to SARS-CoV -2 (event) Not sure [facility] Start: 04-20-2021 End: 07-05-2022 Tobacco smoking status NHIS Unknown if ever smoked [facility] Start: 05-25-2019 Spouse/ Signif icant Other [facility] Start: 1940 Sex Assigned At Male W [facility] Start: 11-10-2021 End: 11-04-2022 Tobacco Comment 11/10/2021- 1 pack of chewing tobacco in a 1-1.5/week? [facility] Start: 11-19-2021 End: 09-30-2024 Tobacco use panel [facility] Start: 02-26-2012 How hard is it for y ou to pay for the very basics like food, housing, medical care, and heating Not hard at all [facility] (I/We) worried diadnra er (my/our) food would run out before (I/we) got money to buy more. Never true [facility] Start: 06-07-2024 End: 07-03-2024 Sex Male (finding) [facility] Start: 09-30-2024 End: 08-28-2025 Alcoholic beverage intake Current non-drinker of alcohol (finding) [facility] Start: 12-06-2024 End: 12-27-2024 Tobacco smoking status UTIS Smokes tobacco daily (finding) [facility] Medical Equipment Procedure Code Equipment Code [...] [id number] FDA Start: 10-26-2020 Thyroidectomy SUTURE,LIGA CLIP [id number]-100 FDA Start: 10-26-2020 Colonoscopy Tissue marking ink [id number] FDA Start: 12-11-2024 Surgical staple loading unit, cutting [id number] FDA Start: 12-26-2024 Open-surgery man ual linear cutting stapler, single-use [id number] FDA Start: 12-26-2024 Ligation clip, synthetic polymer, non-bioabsorbable ()[id number] FDA Start: 12-26-2024 Goals Date Patient Goal Desired Activity /State Functional Status Date Assessment Result Facility 12-28-2024 Functional status Up ad hero [facility] Work Phone: 07-19-2013 Are you deaf, or do you have serious difficulty hearing No 07/19/2013 9:55 AM Dacia Tristan RN No [facility] 07-19-2013 Are you blind, or do you have serious difficulty seeing, even when wearing glasses No 07/19/2013 9:55 AM Dacia Tristan RN No [facility] 07-19-2013 Do you have serious difficulty walking or climbing stairs No 07/19/2013 9:55 AM Dacia Tristan RN No [facility] 07-19-2013 Because of a physica l, mental, or emotional condition, do you have difficulty doing errands alone such as visiting a physician's office or shopping No 07/19/2013 9:55 AM Dacia Tristan RN No [facility] Mental Status Date Assessment Result Facility 12-28-2024 Cognitive function Appropriate [facility] Work Phone: 12-27-2024 Cognitive function Arousable To Voice/Nam e [facility] Work Phone: 12-11-2024 Cognitive function Voice/Name [facility] Work Phone: 12-02-2024 Cognitive function Awake;Alert;A ppropriate;Fo lor Commands [facility] Work Phone: 10-21-2024 Cognitive function Voice/Name [facility] Work Phone: 08-26-2022 Cognitive function Awake;Alert;A ppropriate;Alex [facility] Commands [facility] Work Phone: 08-26-2021 Cognitive function Voice/Name [facility] Work Phone: 07-19-2013 Because of a physica l, mental, or emotional condition, do you have serious difficulty concentrating, remembering, or making decisions No 07/19/2013 9:55 AM EDT Dacia Garcia RN No [facility] Clinical Notes 07-14-2020 to 01-10-2025 Note Date & Type Note Facility 01-10-2025 Progress note [facility] 01-03-2025 Progress note [facility] 01-03-2025 Progress note Note Date/Time January 03, 2025 2:43pm [facility] [address] [place] [address] OFFICE VISIT Date of Service: 01/03/25 MR#: [id number] Acct: [id number] Name: MARGAUX SANDERSON Rep #: [id number] : 1940 Provider: Dr. Luma Storm MD Age/Sex: 84/M Location: [facility] Status: Signed Intake Vital Signs 12/26/24 21:09 01/03/25 14:13 Height 5 ft 7 in Weight: 109 lb 6 oz Intake Visit Reasons: s/p hemicolectomy 10-2 Chief Complaint: s/p hemicolectomy Is patient in pain?: Yes (soreness/pain at surgical site/abdomen) Allergies No Known Allergies Allergy (Verified 01/03/25 14:13) Medications ?Medication ?Instructions ?Recorded ?Confirmed ?Type aspirin 81 mg tablet,delayed 81 mg PO DAILY HEART HEAL TH 01/27/16 01/03/25 History release omeprazole 40 mg capsule,delayed 40 mg PO DINNER GERD 05/25/19 01/03/25 History release tamsulosin 0.4 mg capsule 0.4 mg PO .morning BPH 04/2001/03/25 History multivitamin 1 tab PO DAILY SUPPLEMENT 01/03/25 History levothyroxine 112 mcg tablet 112 mcg PO QDAY THYROID 0 11/28/23 01/03/25 History roflumilast 500 mcg tablet 500 mcg PO QDAY COPD 01/03/25 History (Daliresp) albuterol 90 mcg/actuation aerosol 90 mcg inhalation P RN PRN COPD 12/02/24 01/03/25 History inhaler atorvastatin 80 mg tablet (Lipitor) 60 mg PO QHS JEFF STEROL 12/02/24 01/03/25 History ipratropium 0.5 mg-albuterol 3 mg 3 ml inhalation Q6H PRN shortness 12/11/24 01/03/25 History (2.5 mg base)/3 mL nebulization of breath or wheezing soln tramadol 50 mg tablet 50 mg PO Q4H PRN PRN Pain Sc ore 12/28/24 01/03/25 Rx 1-10 5 days #20 tabs Have you fallen in the past year?: No Subjective Details: 84-year-old male presents with his daughter status post 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 Patient has been feeling more tired initially didhave some black stools now they are dark brown?repeat hemoglobin was slightly higher at 11.4 from 10.4. Patient did have a bit of diarrhea and thought it could be from the protein shakes. For the last day or so he has not taken any. Patient seems to be eating enough calories for some meals and not enough for others when asked for description. Objective Details: Incisions clean dry intact Steri-Strips in place. Minimally tender, no signs ofinfection. Coding Level of Care Code Global Post Op Diagnoses S/P right colectomy Z90.49 [facility] Medical History Dark stools Loss of hearing Cancer Thyroid disease Bladder [...] of colon COPD (chronic obstructive pulmonary disease) Surgical History (Updated 01/05/25 @ 00:01 by Jonnie Morgan) S/P right colectomy Hx of colonoscopy Hx of right cataract extraction Hx of left cataract extraction History of thyroidectomy, total (~10/2020) Hx of lithotripsy History of needle biopsy (09/16/20) History of colonoscopy with polypectomy History of esophagogastroduodenoscopy History of arthroscopy of knee Family History Father Diabetes Hypertension CVA (cerebral vascular accident) Mother Thyroid disorder Arthritis Social History Smoking Status: Current every day [...] baby aspirin daily uses ibuprofen as needed Assessment and Plan (No Qualifiers) Assessment and Plan (1) S/P right colectomy: Status: Acute Comment: laparoscopic assisted-12/26/24 due to multiple tubulovillous polyps Plan Patient is tolerating diet. Recommend patient continue to eat normal-sized meals and drink some protein drinks that would help with his energy as well as healing. Currently patient states his stools are brown continue to monitor. Follow-up in 1 week. Patient's daughter agreeable to plan. Zuleyma Storm M.D. Pager: [phone] [facility] [address] [place] [address], [address] [place] [address] Office: [phone] 01/06/25 0957 <Electronically signed by Zuleyma Paredes am, MD> Date _ Zuleyma Watts Signature: Date (if applicable) CC: Dr. Alexander Steiner MD ~ [facility] Work Phone: 1(179) 323-441010-03-2025 Progress note Author Caitlin [facility] Note Date/Time December 27, 2024 6: 29pm [facility] Medical Records Department [address] [place] [address] [place] [address] Progress Note 12/27/241126 MR#: [id number] Acct: [id number] Name: MARGAUX SANDERSON Rep #:[id number] : 1940 84 From: Caitlin Fisher MD PCP: Dr. Alexander Steiner MD Status:ADM I N [place] [facility] [place] Subjective Subjective Patient seen and examined with his nurse by his bedside. His daughter was by hisbedside. HE had no active complaints. Pain is well controlled. Review of systemsis otherwise negative. He has remained in norrmal sinus rhythm. Objective Data Objective Data Vital Signs: Vital Signs Temp Pulse Resp BP Pulse Ox O2 Del Method O2 Flow Rate 97.5 F L 84 20 H 134/71 H 97 Room Air 2 12/27/24 09:00 12/27/24 10:06 12/27/24 10:06 12/27/24 09:00 12/27/24 09:00 12/27/24 09:00 12/26/24 15:26 Oxygen Flow Rate (L/min) 2 Oxygen Delivery Method Room Air Weight: 112 lb 6.972 oz Body Mass Index (BMI) 17.6 Intake & Output: Intake and Output for Last 24 Hours 12/25/24 12/26/24 12/27/24 23:59 23:59 23:59 Intake Total 2666.67 / 2666.67 822.67 / 822.67 Output Total 1010 / 2285 1875 / 1875 Balance 1656.67 / 381.67 -1052.33 / -1052.33 Lab / Micro Data 12/27/24 06:32 12/27/24 06:32 Labs: Laboratory Results - last 24 hr 12/26/24 11:08: Sodium 139, Potassium 4.0, Chloride 107, Carbon Dioxide 21.2, Anion Gap 11, BUN 8, Creatinine 0.70, Estim Creat Clear Calc 51.35, Est GFR (MDRD) Non-Af 92, BUN/Creatinine Ratio 11.7, Glucose 141 H, Calcium 7.9, Magnesium 2.2, TSH 0.447, Free T4 1.70 H, Free T3 pg/dL 2.2 12/27/24 06:32: WBC 11.1 H, RBC 4.26 L, Hgb 9.7 L, Hct 31.3 L, MCV 73.5 L, MCH 22.8 L, MCHC 31.0 L, RDW Std Deviation 56.2 H, RDW Coeff of Rima 21.4 H, Plt Count 330, MPV 10.0, Immature Gran % (Auto) 0.400, Neut % (Auto) 81.6 H, Lymph %(Auto) 6.6 L, [place] % (Auto) 10.9 H, Eos % (Auto) 0.1, Baso % (Auto) 0.4, Absolute Neuts (auto) 9.1 H, Absolute Lymphs (auto) 0.73 L, Nucleated RBC % 0, Anisocytosis 1+, Sodium 142, Potassium 4.1, Chloride 109 H, Carbon Dioxide 21.6,Anion Gap 11, BUN 7, Creatinine 0.66 L, Estim Creat Clear Calc 51.35, Est GFR (MDRD) Non-Af 94, BUN/Creatinine Ratio 11.4, Glucose 145 H, Calcium 8.2 Physical Exam Const alert, oriented x3 and no apparent distress Constitutional Narrative: frail General Appearance: cooperative HEENT normocephalic, head/scalp atraumatic, moist oral mucous membranes and oropharynxnormal Eyes EOMs intact bilaterally Neck supple and no JVD Lymph Lymphatic: no lymphedema noted Resp normal respiratory effort, normal air movement and clear to auscultation bilaterally Cardio regular rate, regular rhythm, S1 normal heart sound, S2 normal heart sound and no murmurs GI GI Narrative: Minimal tenderness to palpation due to surgery. Intact dressing over laparoscopic site. Extremity normal capillary refill, no clubbing, cyanosis or edema and no calf tenderness General Extremity: no tenderness to palpation of joints or extremities Neuro CN's II-XII intact bilaterally, no focal motor deficits and no sensory deficits noted Motor Exam: general weakness Psych thought process normal, cooperative and affect normal Appearance: appropriate Assessment & Plan Assessment/Plan (1) Multiple polyps of sigmoid colon: PLAN: Plan #Tachycardia * Patient was tachycardic during his right hemicolectomy today and there was concern that this may be due to A-fib. However EKG per my review showed junctional rhythm but no evidence of A-fib * Does not have a history of A-fib. 2D echo ordered. Potassium and magnesium within normal limits. * Tachycardia had resolved by time of my review and has remained in normal sinus rhythm since then. He remained in normal sinus rhythm overnight. * limited 2D echo ordered and pending * He does have 2D echo from 09/19/2024 which showed EF of 60% with normal diastolic for age and RVSP of 43 mmHg. * if limited echo normal, will recommend 30 day event monitor on discharge. #History of tubulovillous adenoma s/p right laparoscopic hemicolectomy * Today's postop day 1 * Management as per primary service General Surgery. #Hyperlipidemia: On statin #History of hypothyroidism: * On Synthroid. TSH is within normal limits at 0.447 though free T4 is slightly elevated at 1.7. * Will not adjust medications for now as TSH is normal. * Continue current dose of Synthroid * #History of COPD: On Roflumilast. Breathing treatments bronchodilators. Currently not in exacerbation. #BPH: On Flomax DVT prophylaxis: As per primary service General Surgery. Thank you for the courtesy of the consult. Hospitalist service will continue tofollow with you. Charges/Coding Visit Charges Inpatient E&M: 30993 Subs Hosp L2 12/27/24 182 <Electronically signed by Caitlin Fisher MD> Caitlin Fisher MD Cosigner Signature (if applicable): CC: ~ Signed [facility] Work Phone: 1(920) 315-641310-03-2025 Progress note [facility] Medical Records Department [address] [place] [address] Progress Note 12/27/24 1127 MR#: [id number] Acct: [id number] Name: MARGAUX SANDERSON Rep #:[id number] : 1940 84 From: Caitlni Fisher MD PCP: Dr. Alexander Steiner MD Status:ADM I N Location: [place] [address] Subjective Subjective Patient seen and examined with his nurse by his bedside. His daughter was by hisbedside. HE had no active complaints. Pain is well controlled. Review of systemsis otherwise negative. He has remained in norrmal sinus rhythm. Objective Data Objective Data Vital Signs: Vital Signs Temp Pulse Resp BP Pulse Ox O2 Del Method O2 Flow Rate 97.5 F L 84 20 H 134/71 H 97 Room Air 2 12/27/24 09:00 12/27/24 10:06 12/27/24 10:06 12/27/24 09:00 12/27/24 09:00 12/27/24 09:00 12/26/24 15:26 Oxygen Flow Rate (L/min) 2 Oxygen Delivery Method Room Air Weight: 112 lb 6.972 oz Body Mass Index (BMI) 17.6 Intake & Output: Intake and Output for Last 24 Hours 12/25/24 12/26/24 12/27/24 23:59 23:59 23:59 Intake Total 2666.67 / 2666.67 822.67 / 822.67 Output Total 1010 / 2285 1875 / 1875 Balance 1656.67 / 381.67 -1052.33 / -1052.33 Lab / Micro Data 12/27/24 06:32 12/27/24 06:32 Labs: Laboratory Results - last 24 hr 12/26/24 11:08: Sodium 139, Potassium 4.0, Chloride 107, Carbon Dioxide 21.2, Anion Gap 11, BUN 8, Creatinine 0.70, Estim Creat Clear Calc 51.35, Est GFR (MDRD) Non-Af 92, BUN/Creatinine Ratio 11.7, Glucose 141 H, Calcium 7.9, Magnesium 2.2, TSH 0.447, Free T4 1.70 H, Free T3 pg/dL 2.2 12/27/24 06:32: WBC 11.1 H, RBC 4.26 L, Hgb 9.7 L, Hct 31.3 L, MCV 73.5 L, MCH 22.8 L, MCHC 31.0 L,RDW Std Deviation 56.2 H, RDW Coeff of Rima 21.4 H, Plt Count 330, MPV 10.0, Immature Gran % (Auto) 0.400, Neut % (Auto) 81.6 H, Lymph %(Auto) 6.6 L, [place] % (Auto) 10.9 H, Eos % (Auto) 0.1, Baso % (Auto) 0.4, Absolute Neuts (auto) 9.1 H, Absolute Lymphs (auto) 0.73 L, Nucleated RBC % 0, Anisocytosis1+, Sodium 142, Potassium 4.1, Chloride 109 H, Carbon Dioxide 21.6,Anion Gap 11, BUN 7, Creatinine 0.66 L, Estim Creat Clear Calc 51.35, Est GFR (MDRD) Non-Af 94, BUN/Creatinine Ratio 11.4, Glucose 145 H, Calcium 8.2 Physical Exam Const alert, oriented x3 and no apparent distress Constitutional Narrative: frail General Appearance: cooperative HEENT normocephalic, head/scalp atraumatic, moist oral mucous membranes and oropharynxnormal Eyes EOMs intact bilaterally Neck supple and no JVD Lymph Lymphatic: no lymphedema noted Resp normal respiratory effort, normal air movement and clear to auscultation bilaterally Cardio regular rate, regular rhythm, S1 normal heart sound, S2 normal heart sound and no murmurs GI GI Narrative: Minimal tenderness to palpation due to surgery. Intact dressing over laparoscopic site. Extremity normal capillary refill, no clubbing, cyanosis or edema and no calf tenderness General Extremity: no tenderness to palpation of joints or extremities Neuro CN's II-XII intact bilaterally, no focal motor deficits and no sensory deficits noted Motor Exam: general weakness Psych thought process normal, cooperative and affect normal Appearance: appropriate Assessment & Plan Assessment/Plan (1) Multiple polyps of sigmoid colon: PLAN: Plan #Tachycardia * Patient was tachycardic during his right hemicolectomy today and there was concern that this may be due to A-fib. However EKG per my review showed junctional rhythm but no evidence of A-fib * Does not have a history of A-fib. 2D echo ordered. Potassium and magnesium within normal limits. * Tachycardia had resolved by time of my review and has remained in normal sinus rhythm since then.He remained in normal sinus rhythm overnight. * limited 2D echo ordered and pending * He does have 2D echo from 09/19/2024 which showed EF of 60% with normal diastolic for age and RVSPof 43 mmHg. * if limited echo normal, will recommend 30 day event monitor on discharge. #History of tubulovillous adenoma s/p right laparoscopic hemicolectomy * Today's postop day 1 * Management as per primary service General Surgery. #Hyperlipidemia: On statin #History of hypothyroidism: * On Synthroid. TSH is within normal limits at 0.447 though free T4 is slightly elevated at 1.7. * Will not adjust medications for now as TSH is normal. * Continue current dose of Synthroid * #History of COPD: On Roflumilast. Breathing treatments bronchodilators. Currently not in exacerbation. #BPH: On Flomax DVT prophylaxis: As per primary service General Surgery. Thank you for the courtesy of the consult. Hospitalist service will continue tofollow with you. Charges/Coding Visit Charges Inpatient E&M: 39049 Subs Hosp L2 12/27/24 8361 Caitlin Fisher MD Cosigner Signature (if applicable): CC: ~ Signed [facility]10-03-2025 [facility] Progress note Author Zuleyma [facility] Note Date/Time December 27, 2024 8: 34am [facility] Medical Records Department [address] [place] [address] Progress Note - Surgery 12/27/24 0755 MR#: [id number] Acct: [id number] Name: MARGAUX SANDERSON Rep #:[id number] : 1940 84 From: Zuleyma Storm MD PCP: Dr. Alexander Steiner MD Status:ADM I NO Location: [place] [id number] Subjective Subjective Patient has been ambulating in the halls denies any flatus. Has had good urine output with the Kim we will plan to remove this morning. Objective Data Objective Data Vital Signs: Vital Signs Temp Pulse Resp BP Pulse Ox O2 Del Method O2 Flow Rate 98.2 F 76 18 141/69 H 97 Room Air 2 12/27/24 05:33 12/27/24 05:33 12/27/24 05:33 12/27/24 05:33 12/27/24 05:33 12/27/24 05:33 12/26/24 15:26 Oxygen Flow Rate (L/min) 2 Oxygen Delivery Method Room Air Weight: 112 lb 6.972 oz Body Mass Index (BMI) 17.6 Intake & Output: Intake and Output for Last 24 Hours 12/25/24 12/26/24 12/27/24 23:59 23:59 23:59 Intake Total 2666.67 / 2666.67 Output Total 1010 / 2285 1875 / 1875 Balance 1656.67 / 381.67 -1875 / -1875 Lab / Micro Data 12/27/24 06:32 12/27/24 06:32 Labs: Laboratory Results - last 24 hr 12/26/24 07:33: WBC 7.1, RBC 4.63, Hgb 10.5 L, Hct 34.0 L, MCV 73.4 L, MCH 22.7 L, MCHC 30.9 L, RDW Std Deviation 56.4 H, RDW Coeff of Rima 22.0 H, Plt Count 391, MPV 10.1, Immature Gran % (Auto) 0.600, Neut % (Auto) 75.9 H, Lymph % (Auto) 10.1 L, [place] % (Auto) 10.6 H, Eos % (Auto) 1.7, Baso % (Auto) 1.1 H, Absolute Neuts (auto) 5.4, Absolute Lymphs (auto) 0.71 L, Nucleated RBC % 0, Differential Comment SCANNED, Polychromasia RARE, Anisocytosis 2+, Microcytosis 1+ 12/26/24 11:08: Sodium 139, Potassium 4.0, Chloride 107, Carbon Dioxide 21.2, Anion Gap 11, BUN 8, Creatinine 0.70, Estim Creat Clear Calc 51.35, Est GFR (MDRD) Non-Af 92, BUN/Creatinine Ratio 11.7, Glucose 141 H, Calcium 7.9, Magnesium 2.2, TSH 0.447, Free T4 1.70 H, Free T3 pg/dL 2.2 12/27/24 06:32: WBC 11.1 H, RBC 4.26 L, Hgb 9.7 L, Hct 31.3 L, MCV 73.5 L, MCH 22.8 L, MCHC 31.0 L, RDW Std Deviation 56.2 H, RDW Coeff of Rima 21.4 H, Plt Count 330, MPV 10.0, Immature Gran % (Auto) 0.400, Neut % (Auto) 81.6 H, Lymph %(Auto) 6.6 L, [place] % (Auto) 10.9 H, Eos % (Auto) 0.1, Baso % (Auto) 0.4, Absolute Neuts (auto) 9.1 H, Absolute Lymphs (auto) 0.73 L, Nucleated RBC % 0, Sodium 142, Potassium 4.1, Chloride 109 H, Carbon Dioxide 21.6, Anion Gap 11, BUN 7, Creatinine 0.66 L, Estim Creat Clear Calc 51.35, Est GFR (MDRD) Non-Af 94, BUN/Creatinine Ratio 11.4, Glucose 145 H, Calcium 8.2 Physical Exam Const oriented x3 and no apparent distress Resp normal respiratory effort GI soft to palpation GI Narrative: Incisions dressed clean dry and intact, appropriately tender near incisions, no peritoneal signs Bladder / Kidney Exam: catheter in place Assessment & Plan Assessment/Plan (1) S/P right colectomy: (2) Tubulovillous adenoma: PLAN: Plan Postop day 1 status post laparoscopic assisted right hemicolectomy Tolerating clears await bowel function for advancing transitional Continue ambulating Pain controlled Appreciate medicine's assistance Good urine output will remove Kim Lovenox for DVT prophylaxis Zuleyma Storm M.D. Pager: [phone] [facility] [address] [place] [address], [address] [place] [address] Office: [phone] 12/27/24 4196 <Electronically signed by Zuleyma Storm MD> Cosigner Signature (if applicable): CC: ~ Signed [facility] Work Phone: 1([phone]) 476-470710-03-2025 Progress note [facility] Medical Records Department [address] [place] [address] Progress Note - Surgery 12/27/24 0752 MR#: [id number] Acct: [id number] Name: MARGAUX SANDERSON Rep #:[id number] : 1940 84 From: Zuleyma Storm MD PCP: Dr. Alexanedr Steiner MD Status:ADM I NO Location: [place] [id number] Subjective Subjective Patient has been ambulating in the halls denies any flatus. Has had good urine output with the Kim we will plan to remove this morning. Objective Data Objective Data Vital Signs: Vital Signs Temp Pulse Resp BP Pulse Ox O2 Del Method O2 Flow Rate 98.2 F 76 18 141/69 H 97 Room Air 2 12/27/24 05:33 12/27/24 05:33 12/27/24 05:33 12/27/24 05:33 12/27/24 05:33 12/27/24 05:33 12/26/24 15:26 Oxygen Flow Rate (L/min) 2 Oxygen Delivery Method Room Air Weight: 112 lb 6.972 oz Body Mass Index (BMI) 17.6 Intake & Output: Intake and Output for Last 24 Hours 12/25/24 12/26/24 12/27/24 23:59 23:59 23:59 Intake Total 2666.67 / 2666.67 Output Total 1010 / 2285 1875 / 1875 Balance 1656.67 / 381.67 -1875 / -1875 Lab / Micro Data 12/27/24 06:32 12/27/24 06:32 Labs: Laboratory Results - last 24 hr 12/26/24 07:33: WBC 7.1, RBC 4.63, Hgb 10.5 L, Hct 34.0 L, MCV 73.4 L, MCH 22.7 L, MCHC 30.9 L, RDWStd Deviation 56.4 H, RDW Coeff of Rima 22.0 H, Plt Count 391, MPV 10.1, Immature Gran % (Auto) 0.600, Neut % (Auto) 75.9 H, Lymph % (Auto) 10.1 L, [place] % (Auto) 10.6 H, Eos % (Auto) 1.7, Baso % (Auto) 1.1 H, Absolute Neuts (auto) 5.4, Absolute Lymphs (auto) 0.71 L, Nucleated RBC % 0, Differential Comment SCANNED, Polychromasia RARE, Anisocytosis 2+, Microcytosis 1+ 12/26/24 11:08: Sodium 139, Potassium 4.0, Chloride 107, Carbon Dioxide 21.2, Anion Gap 11, BUN 8, Creatinine 0.70, Estim Creat Clear Calc 51.35, Est GFR (MDRD) Non-Af 92, BUN/Creatinine Ratio 11.7, Glucose 141 H, Calcium 7.9, Magnesium 2.2, TSH 0.447, Free T4 1.70 H, Free T3 pg/dL 2.2 12/27/24 06:32: WBC 11.1 H, RBC 4.26 L, Hgb 9.7 L, Hct 31.3 L, MCV 73.5 L, MCH 22.8 L, MCHC 31.0 L,RDW Std Deviation 56.2 H, RDW Coeff of Rima 21.4 H, Plt Count 330, MPV 10.0, Immature Gran % (Auto) 0.400, Neut % (Auto) 81.6 H, Lymph %(Auto) 6.6 L, [place] % (Auto) 10.9 H, Eos % (Auto) 0.1, Baso % (Auto) 0.4, Absolute Neuts (auto) 9.1 H, Absolute Lymphs (auto) 0.73 L, Nucleated RBC % 0, Sodium 142, Potassium 4.1, Chloride 109 H, Carbon Dioxide 21.6, Anion Gap 11, BUN 7, Creatinine 0.66 L, Estim Creat Clear Calc 51.35, Est GFR (MDRD) Non-Af 94, BUN/Creatinine Ratio 11.4, Glucose 145 H, Calcium 8.2 Physical Exam Const oriented x3 and no apparent distress Resp normal respiratory effort GI soft to palpation GI Narrative: Incisions dressed clean dry and intact, appropriately tender near incisions, no peritoneal signs Bladder / Kidney Exam: catheter in place Assessment & Plan Assessment/Plan (1) S/P right colectomy: (2) Tubulovillous adenoma: PLAN: Plan Postop day 1 status post laparoscopic assisted right hemicolectomy Tolerating clears await bowel function for advancing transitional Continue ambulating Pain controlled Appreciate medicine's assistance Good urine output will remove Kim Lovenox for DVT prophylaxis Zuleyma Storm M.D. Pager: [phone] [facility] [address] [place] [address], [facility], [address] [place] [address] Office: [phone] 12/27/24 2397 Cosigner Signature (if applicable): CC: ~ Signed [facility]10-03-2025 Procedure note [facility] Medical Records Department [address] [place] [address] Operative Report 12/26/24 0951 MR#: [id number] Acct: [id number] Name: MARGAUX SANDERSON Rep #:[id number] : 1940 84 From: Zuleyma Storm MD PCP: Dr. Alexander Steiner MD Status:ADM I NO Location: [place] [id number] 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 Post-Operative Diagnosis: Same Surgery/Procedure Performed: ERAS laparoscopic assisted right hemicolectomy robotics technologist: Yes Access Services Librarian: Berna Rahman Tasks completed by assistant spa director: Opening & closing and Retracting Type of Anesthesia: General/Supplemental RN Documented Start/Stop Times: Operation Date: 12/26/24 07:30 Case Time Into Pre-Op 12/26/24 05:41 Anesthesia Start 12/26/24 07:35 Into Room 12/26/24 07:35 Out of Pre-Op 12/26/24 07:35 Procedure Start 12/26/24 08:01 Procedure End 12/26/24 10:02 Anesthesia End 12/26/24 10:07 Out of Room 12/26/24 10:07 Into Recovery 12/26/24 10:10 Out of Recovery 12/26/24 11:46 Procedure Start Time: 08:01 Procedure Stop Time: 10:02 Select all DRAINS/GRAFTS/IMPLANTS that apply: None Special Medications: Cefotetan 2 g IV x 1 Estimated Blood Loss: 10 cc Specimen collected: Yes Description of specimen(s) removed: Right hemicolectomy Description of surgery: Indications this is a 84-year-old male who was found to have multiple large tubulovillous adenomas to large to large 2 removed in the cecum and ascending colon. Laparoscopic right hemicolectomy elected patient agreeable. Description procedure: The patient was placed on operating table in supine position. General Anesthesia was induced. Kim catheter was placed. A timeout was completed verifying correct patient, procedure, site, position, social, and special equipment prior to beginning procedure. An orogastric tube was placed. The abdomen was prepped and draped in usual sterile fashion. An incision was made in the natural skin line above the umbilicus. The fascia was elevated and incised. The peritoneum was elevated and incised. Entry into the peritoneum was confirmed visually and no bowel was noted in the vicinity of the incision. Hutchinson trocar was placed. The abdomen was insufflated with carbon dioxide to a pressure of 12-15 mmHg. Patient tolerated insufflation well. The laparoscope was then inserted and abdomen inspected. No injuries from initial trocar placement were noted. Additional trochars were then inserted in the following locations 5 mm trocar inferior midline and additional 1 in the left upper quadrant. The abdomen was inspected and tattoo bennett in the ascending and hepatic flexure were visualized. The table is placed in reverse Trendelenburg position with the right side up. Tap block was completed using Exparel/Marcaine/saline visualized laparoscopically. Transverse colon attachments were divided using the Enseal this was continued along the white line of Toldt laterally. Dissection continued bluntly in the retroperitoneum using traction and countertraction technique with gentle sweeping and visualization of the ureter was confirmed. The lateral edwin chmentsof the ascending colon were then divided using most mobilization of the retroperitoneal attachments of the terminal ileum. The omentum attached to resect a portion of the colon was divided and resected with the specimen. The supraumbilical incision was enlarged about 7 cm in length. A wound protector was then placed into the peritoneal cavity to prevent port site implantation as well as minimize risk of wound infection. They ascending and transverse colon were then delivered and extracted. Ileocolic artery and veinwere clipped with hemoclips at takeoff of the SMA. Enseal was used to divide the distal vessel. Insert was also used to divide the mesentery of the terminalileum and colon. The small bowel and colon was then divided extracorporeally with the ZAC 75 after the right branch of the middle colic was also divided withthe Enseal. The specimen was removed. The 2 ends of the ileum and transversecolon werethen aligned, ensuring that the mesentery was not twisted, and the staple [id number] anastomosis using the ZAC 75 and TL 60. The anastomosis, alignment of the bowel, hemostasis were checked. The trochars removed under direct visualization. Once the wound protector was removed, gowns and gloves were changed. The umbilical incision was closed with 1-0 PDS suture at the fascia and then the skin was closed with 4-0 Monocryl interrupted sutures. Dry sterile dressings were applied. The sponge and instrument count were correct. The patient was extubated. The patient tolerated procedure well and was taken to the postanesthesiacare unit in stable condition. Surgical Findings: See operative report Complications Complications: No 12/27/24 0803 Cosigner Signature (if applicable): CC: Dr. Didier Rodríguez MD; Dr. Caitlin Fisher MD; Dr. Alexander Steiner MD; Dr. Zuleyma Storm MD~ Signed [facility]10-02-2025 Progress note Author [facility] Note Date/Time December 26, 2024 5: 45pm [facility] Medical Records Department [address] [place] [address] Progress Note 12/26/24 1736 MR#: [id number] Acct: [id number] Name: MARGAUX SANDERSON Rep #:[id number] : 1940 84 From: Caitlin Fisher MD PCP: Dr. Alexander Steiner MD Status:ADM I NO [place] [facility] [id number] Subjective Subjective Patient is an 84-year-old male with a past medical history as outlined includingpolyps was admitted to the service of general surgery. Patient had a laparoscopic assisted right hemicolectomy today on account of polyps. During the surgery he was noted to be in A-fib with RVR. He does not have any history of A- fib with RVR. Hospitalist service was therefore consulted for medical management. I saw patient down in the PACU. He denied any chest pain or palpitations, any dizziness and pain was well-controlled. He denied any historyof A-fib. On review in PACU, vitals were temperature of 97.8, pulse rate of 94, respiratory rate of 18 and blood pressure 106/63. He was saturating at 98% on 4L of oxygen. CBC and BMP showed WBC of 7.1 with hemoglobin of 10.5 and platelets of 391 as well as sodium of 139, potassium of 4 and bicarb of 21.2. Creatinine was 0.7. Magnesium was 2.2. TSH was 0.447 and free T4 was 1.7. Free T3 was 2.2. EKG done per my review showed a junctional rhythm. Though there were no P waves the QRS waves were regular and narrow. He is therefore nina admitted to be managed for tachycardia of unclear etiology which had resolvedby time I reviewed him. Objective Data Objective Data Vital Signs: Vital Signs Temp Pulse Resp BP Pulse Ox O2 Del Method O2 Flow Rate 97.7 F L 89 18 115/62 97 Nasal Cannula 2 12/26/24 15:26 12/26/24 15:26 12/26/24 15:26 12/26/24 15:26 12/26/24 15:26 12/26/24 15:12/26/24 15: Oxygen Flow Rate (L/min) 2 Oxygen Delivery Method Nasal Cannula Weight: 112 lb 6.972 oz Body Mass Index (BMI) 17.6 Intake & Output: Intake and Output for Last 24 Hours 12/24/24 12/25/24 12/26/24 23:59 23:59 23:59 Intake Total 2216.67 / 2216.67 Output Total 660 / 660 Balance 1556.67 / 1556.67 Lab / Micro Data 12/26/24 07:33 12/26/24 11:08 Labs: Laboratory Results - last 24 hr 12/26/24 06:09: POC Glucose 106 12/26/24 07:33: WBC 7.1, RBC 4.63, Hgb 10.5 L, Hct 34.0 L, MCV 73.4 L, MCH 22.7 L, MCHC 30.9 L, RDW Std Deviation 56.4 H, RDW Coeff of Rima 22.0 H, Plt Count 391, MPV 10.1, Immature Gran % (Auto) 0.600, Neut % (Auto) 75.9 H, Lymph % (Auto) 10.1 L, [place] % (Auto) 10.6 H, Eos % (Auto) 1.7, Baso % (Auto) 1.1 H, Absolute Neuts (auto) 5.4, Absolute Lymphs (auto) 0.71 L, Nucleated RBC % 0, Differential Comment SCANNED, Polychromasia RARE, Anisocytosis 2+, Microcytosis 1+ 12/26/24 11:08: Sodium 139, Potassium 4.0, Chloride 107, Carbon Dioxide 21.2, Anion Gap 11, BUN 8, Creatinine 0.70, Estim Creat Clear Calc 51.35, Est GFR (MDRD) Non-Af 92, BUN/Creatinine Ratio 11.7, Glucose 141 H, Calcium 7.9, Magnesium 2.2, TSH 0.447, Free T4 1.70 H, Free T3 pg/dL 2.2 Physical Exam Const alert, oriented x3 and no apparent distress Constitutional Narrative: frail General Appearance: cooperative HEENT normocephalic, head/scalp atraumatic, moist oral mucous membranes and oropharynxnormal Eyes EOMs intact bilaterally Neck supple and no JVD Lymph Lymphatic: no lymphedema noted Resp normal respiratory effort, normal air movement and clear to auscultation bilaterally Cardio regular rate, regular rhythm, S1 normal heart sound, S2 normal heart sound and no murmurs GI normal to inspection, nondistended, normoactive bowel sounds, soft to palpation and non-distended GI Narrative: Minimal tenderness to palpation due to surgery. Intact dressing over laparoscopic site. Extremity normal capillary refill, no clubbing, cyanosis or edema and no calf tenderness General Extremity: no tenderness to palpation of joints or extremities Neuro no focal motor deficits and no sensory deficits noted Motor Exam: general weakness Psych cooperative and affect normal Appearance: appropriate Assessment & Plan Assessment/Plan (1) Multiple polyps of sigmoid colon: PLAN: Plan #Tachycardia * Patient was tachycardic during his right hemicolectomy today and there was concern that this may be due to A-fib. However EKG per my review showed junctional rhythm but no evidence of A-fib * Does not have a history of A-fib. 2D echo ordered. Potassium and magnesium within normal limits. * Tachycardia had resolved by time of my review and has remained in normal sinus rhythm since then. * Will get 2D echo and review * He does have 2D echo from 09/19/2024 which showed EF of 60% with normal diastolic for age and RVSP of 43 mmHg. #History of tubulovillous adenoma s/p right laparoscopic hemicolectomy * Today's postop day 0. * Management as per primary service General Surgery. #Hyperlipidemia: On statin #History of hypothyroidism: * On Synthroid. TSH is within normal limits at 0.447 though free T4 is slightly elevated at 1.7. * Will not adjust medications for now as TSH is normal. * Continue current dose of Synthroid * #History of COPD: On Roflumilast. Breathing treatments bronchodilators. Currently not in exacerbation. #BPH: On Flomax DVT prophylaxis: As per primary service General Surgery. Thank you for the courtesy of the consult. Hospitalist service will continue tofollow with you. Charges/Coding Visit Charges Inpatient E&M: 20049 Subs Hosp L2 12/26/241744 <Electronically signed by Caitlin Fisher MD> Caitlin Fisher MD Cosigner Signature (if applicable): CC: ~ Signed [facility] Work Phone: 1(506) 287-929310-02-2025 Progress note [facility] Medical Records Department [address] [place] [address] Progress Note 12/26/241735 MR#: [id number] Acct: [id number] Name: MARGAUX SANDERSON Rep #:[id number] : 1940 84 From: Caitlin Fisher MD PCP: Dr. Alexander Steiner MD Status:ADM I NO [facility] Subjective Subjective Patient is an 84-year-old male with a past medical history as outlined includingpolyps was admittedto the service of general surgery. Patient had a laparoscopic assisted right hemicolectomy today onaccount of polyps. During the surgery he was noted to be in A-fib with RVR. He does not have any history of A- fib with RVR. Hospitalist service was therefore consulted for medical management. I saw patient down in the PACU. He denied any chest pain or palpitations, any dizziness and pain was well-controlled. He denied any historyof A-fib. On review in PACU, vitals were temperature of 97.8, pulse rate of 94, respiratory rate of 18 and blood pressure 106/63. He was saturating at 98% on 4L of oxygen. CBC and BMP showed WBC of 7.1 with hemoglobin of 10.5 and platelets of 391 as well as sodium of 139, potassium of 4 and bicarb of 21.2. Creatinine was 0.7. Magnesium was 2.2. TSH was 0.447 and free T4 was 1.7. Free T3 was 2.2. EKG done per my review showed a junctional rhythm. Though there were no P waves the QRS waves were regular andnarrow. He is therefore nina admitted to be managed for tachycardia of unclear etiology which had resolvedby time I reviewed him. Objective Data Objective Data Vital Signs: Vital Signs Temp Pulse Resp BP Pulse Ox O2 Del Method O2 Flow Rate 97.7 F L 89 18 115/62 97 Nasal Cannula 2 12/26/24 15:26 12/26/24 15:26 12/26/24 15:26 12/26/24 15:26 12/26/24 15:26 12/26/24 15:26 12/26/24 15:26 Oxygen Flow Rate (L/min) 2 Oxygen Delivery Method Nasal Cannula Weight: 112 lb 6.972 oz Body Mass Index (BMI) 17.6 Intake & Output: Intake and Output for Last 24 Hours 12/24/24 12/25/24 12/26/24 23:59 23:59 23:59 Intake Total 2216.67 / 2216.67 Output Total 660 / 660 Balance 1556.67 / 1556.67 Lab / Micro Data 12/26/24 07:33 12/26/24 11:08 Labs: Laboratory Results - last 24 hr 12/26/24 06:09: POC Glucose 106 12/26/24 07:33: WBC 7.1, RBC 4.63, Hgb 10.5 L, Hct 34.0 L, MCV 73.4 L, MCH 22.7 L, MCHC 30.9 L, RDWStd Deviation 56.4 H, RDW Coeff of Rima 22.0 H, Plt Count 391, MPV 10.1, Immature Gran % (Auto) 0.600, Neut % (Auto) 75.9 H, Lymph % (Auto) 10.1 L, [place] % (Auto) 10.6 H, Eos % (Auto) 1.7, Baso % (Auto) 1.1 H, Absolute Neuts (auto) 5.4, Absolute Lymphs (auto) 0.71 L, Nucleated RBC % 0, Differential Comment SCANNED, Polychromasia RARE, Anisocytosis 2+, Microcytosis 1+ 12/26/24 11:08: Sodium 139, Potassium 4.0, Chloride 107, Carbon Dioxide 21.2, Anion Gap 11, BUN 8, Creatinine 0.70, Estim Creat Clear Calc 51.35, Est GFR (MDRD) Non-Af 92, BUN/Creatinine Ratio 11.7, Glucose 141 H, Calcium 7.9, Magnesium 2.2, TSH 0.447, Free T4 1.70 H, Free T3 pg/dL 2.2 Physical Exam Const alert, oriented x3 and no apparent distress Constitutional Narrative: frail General Appearance: cooperative HEENT normocephalic, head/scalp atraumatic, moist oral mucous membranes and oropharynxnormal Eyes EOMs intact bilaterally Neck supple and no JVD Lymph Lymphatic: no lymphedema noted Resp normal respiratory effort, normal air movement and clear to auscultation bilaterally Cardio regular rate, regular rhythm, S1 normal heart sound, S2 normal heart sound and no murmurs GI normal to inspection, nondistended, normoactive bowel sounds, soft to palpation and non-distended GI Narrative: Minimal tenderness to palpation due to surgery. Intact dressing over laparoscopic site. Extremity normal capillary refill, no clubbing, cyanosis or edema and no calf tenderness General Extremity: no tenderness to palpation of joints or extremities Neuro no focal motor deficits and no sensory deficits noted Motor Exam: general weakness Psych cooperative and affect normal Appearance: appropriate Assessment & Plan Assessment/Plan (1) Multiple polyps of sigmoid colon: PLAN: Plan #Tachycardia * Patient was tachycardic during his right hemicolectomy today and there was concern that this may be due to A-fib. However EKG per my review showed junctional rhythm but no evidence of A-fib * Does not have a history of A-fib. 2D echo ordered. Potassium and magnesium within normal limits. * Tachycardia had resolved by time of my review and has remained in normal sinus rhythm since then. * Will get 2D echo and review * He does have 2D echo from 09/19/2024 which showed EF of 60% with normal diastolic for age and RVSPof 43 mmHg. #History of tubulovillous adenoma s/p right laparoscopic hemicolectomy * Today's postop day 0. * Management as per primary service General Surgery. #Hyperlipidemia: On statin #History of hypothyroidism: * On Synthroid. TSH is within normal limits at 0.447 though free T4 is slightly elevated at 1.7. * Will not adjust medications for now as TSH is normal. * Continue current dose of Synthroid * #History of COPD: On Roflumilast. Breathing treatments bronchodilators. Currently not in exacerbation. #BPH: On Flomax DVT prophylaxis: As per primary service General Surgery. Thank you for the courtesy of the consult. Hospitalist service will continue tofollow with you. Charges/Coding Visit Charges Inpatient E&M: 33941 Subs Hosp L2 12/26/24 1745 Caitlin Fisher MD Cosigner Signature (if applicable): CC: ~ Signed [facility]10-02-2025 Consult note Author Mamta Dc [facility] Note Date/Time December 26, 2024 10 :26 [facility] Medical Records Department [address] [place] [address] Anesthesia Postop Eval I 12/26/24 1025 MR#: [id number] Acct: [id number] Name: MARGAUX SANDERSON Rep #:[id number] : 1940 84 From: Mamta bales CRNA PCP: Dr. Alexander Steiner MD Status:ADM I N Y Race: C Location: [place] [address] Anesthesia: Postop Eval I Current Vital Signs Temperature: 97.4 F Pulse Rate: 102 Blood Pressure: 140/89 Respiratory Rate: 16 Pulse Ox: 99 Oxygen Delivery Method: Nasal Cannula Oxygen Flow Rate (L/min): 2 Assessment Airway patent: Yes Spontaneous unlabored respirations: Yes Mental status: Awake and Calm nausea: No Vomiting: No Anesthesia Complication: No Fluid Hydration Crystalloid volume administer (ml): 1,900 Total IV fluid infused: 1,900 Progress Note Anesthesia document: Postop Eval 1 completed: Yes 12/26/24 1026 <Electronically signed by Mamta silverio CRNA> Date _ Mamta Dc CRNA Cosigner Signature: Date CC: ~ Signed [facility] Work Phone: 1(191) 204-145310-02-2025 Consult note [facility] Medical Records Department [address] [place] [address] Anesthesia Postop Eval I 12/26/24 1025 MR#: [id number] Acct: [id number] Name: MARGAUX SANDERSON Rep #:[id number] : 1940 84 From: Mamta 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 Alexander Steiner MD Status:ADM I N Y Race: C Location: [facility] AC- TBA-1 Anesthesia: Postop Eval I Current Vital Signs Temperature: 97.4 F Pulse Rate: 102 Blood Pressure: 140/89 Respiratory Rate: 16 Pulse Ox: 99 Oxygen Delivery Method: Nasal Cannula Oxygen Flow Rate (L/min): 2 Assessment Airway patent: Yes Spontaneous unlabored respirations: Yes Mental status: Awake and Calm nausea: No Vomiting: No Anesthesia Complication: No Fluid Hydration Crystalloid volume administer (ml): 1,900 Total IV fluid infused: 1,900 Progress Note Anesthesia document: Postop Eval 1 completed: Yes 12/26/24 1026 jean claude [employer]> Date _ Mamtavivien Martellamairani [employer] Cosigner Signature: Date CC: ~ Signed [facility]10-02-2025 Consult note Author [facility] Note Date/Time December 26, 2024 7: 24am [facility] Medical Records Department [address] [place] [address] Pre-Anesthesia Evaluation 12/26/24 0717 MR#: [id number] Acct: [id number] Name: MARGAUX SANDERSON Rep #:[id number] : 1940 84 From: Mamta 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 Alexander Steiner MD Status:ADM I N Y Race: C Location: [facility] AC- TBA-1 ASA Classification* ASA Classification ASA Classification: 3 [...] anesthesia risk assessments. Anesthesia Type Anesthesia Type: General History Source History Obtained from:: Patient and Chart Anesthesia Focused Assessment* Temperature: 97.5 F Pulse Rate: 71 Blood Pressure: 131/72 Respiratory Rate: 16 Pulse Ox: 98 Oxygen Delivery Method: Room Air Airway Assessment Mouth opens: >3 cm Mallampati Score: I Teeth Condition: Dentures (upper dentures out, bottom pinned in) Neck Range of motion (ROM): Full ROM Labs Anesthesia Preop lab: CBC WBC, (4.4-11.0) 6.5 K/mm3 12/11/24, 10:07 RBC, (4.6-6.2) 4.76 M/mm3 12/11/24, 10:07 Hgb, (13.0-16.5) 10.8 g/dL L 12/11/24, 10:07 Hct, (40-54) 35.0 % L 12/11/24, 10:07 Plt Count, (150-450) 266 K/mm3 12/11/24, 10:07 CHEMISTRY Potassium, (3.3-5.1) 4.2 mmol/L 11/28/24, 16:30 Sodium, (133-145) 140 mmol/L 11/28/24, 16:30 Magnesium, (1.5-2.2) 2.0 mg/dL 12/09/24, 10:28 BUN, (4-19) 8 mg/dL 11/28/24, 16:30 Creatinine, (0.70-1.20) 0.70 mg/dL 11/28/24, 16:30 Glucose, (70-99) 100 mg/dL H 11/28/24, 16:30 POC Glucose, (74-106) 106 mg/dL Today, 06:09 TSH, (0.300-4.200) 0.074 uIU/mL L 09/16/24, 10:48 COAG PT, (11.7-14.9) 14.0 SECONDS 11/28/24, 16:30 Lab additional comments: Dr. Storm ordered CBC to obtain Pre-Assessment Diagnosis/Proposed Procedure Planned Operative Procedure(s): LAPAROSCOPIC POSS OPEN RIGHT ZOE COLECTOMY Anesthesia History Anesthesia History - climatologist: Anesthesia History - climatologist Hx Hospitalization No 12/20/24 10:34 Any Problems With Anesthesia No 12/20/24 10:34 Cholinesterase deficiency No 12/20/24 10:34 You/Your Family Experience No 12/20/24 10:34 fever (hyperthermia) with Relationship Recent Exposure to Contagious No 12/26/24 06:12 Disease Does patient have nerve No 12/20/24 10:34 stimulator Patient instructed to have device shut off --Does patient have Pacemaker No 12/26/24 06:12 or ICD? When Was Last Pacemaker Check QUESTION #4 FULL TEXT: You/Your Family Experience fever (hyperthermia) with Anesthesia Last Oral Intake Last Oral intake: Last Oral Intake NPO since 23:00 12/26/24 06:12 Meds taken in AM with sips of No 12/26/24 06:12 water? 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 - climatologist: PONV - climatologist Female No 12/20/24 10:34 HX of Motion Sickness No 12/20/24 10:34 HX of N/V After Surgery No 12/20/24 10:34 Non-Smoker No 12/20/24 10:34 Duration of Surgery greater Yes 12/20/24 10:34 than 60 minutes Number of Risk Factors 1 12/20/24 10:34 PONV Score Low Risk 12/20/24 10:34 Height & Weight Height & Weight: Anesthesia: Height & Weight Height 5 ft 7 in 12/26/24 06:12 Weight: 51 kg 12/26/24 06:12 Body Mass Index (BMI) 17.6 12/26/24 06:12 Respiratory Assessment Respiratory Assessment - climatologist: Respiratory Tract Infection Hx - climatologist Hx Respiratory Tract Infection No 12/20/24 10:34 STOP Sleep Apnea STOP Sleep Apnea - climatologist: STOP Sleep Apnea - climatologist Hx Hypertension Yes: NO MEDS FOR 4 MONTHS/ 12/20/24 10:34 CURRENTLY HYPOTENSIVE Hx Sleep Apnea No 12/20/24 10:34 CPAP BIPAP Do you snore loudly (louder No 12/20/24 10:34 than talking or can be heard Do you often feel tired/ No 12/20/24 10:34 fatigued/ sleepy during daytime? Has anyone observed you stop No 12/20/24 10:34 breathing during sleep? STOP Results Negative 12/20/24 10:34 QUESTION #5 FULL TEXT : Do you snore loudly (louder than talking or can be heard through closed doors)? Tobacco Use History Tobacco Use History - climatologist: Tobacco Use History - climatologist Tobacco Use Smoking Status Current every day smoker 12/20/24 10:34 Hx Tobacco Use Yes 12/20/24 10:34 Years Smoking Packs Smoked per Day Smoking Cessation Date was within the last 15 years Hx Smoking Cessation Date 03/27/08 12/20/24 10:34 Hx Smoking Cessation No 12/20/24 10:34 Counseling Hematologic Medial History Hematologic Hx - climatologist: Hematologic Medical Hx - teletype telegrapher Hx of Blood Transfusion Yes 12/20/24 10:34 Hx of Transfusion in last 3 Yes 12/20/24 10:34 Months Date of Last Transfusion (if 11/29/24 12/20/24 10:34 within last 3 months) Ever experience any problems Yes 12/20/24 10:34 with transfusion(s)? Specify any problems FATIGUE AND HEADACHE 12/20/24 10:34 Hx of Preganancy in last 3 N/A 12/20/24 10:34 Months Nurse Filling Out Transfusion DSCHRIBER 12/20/24 10:34 & Questions: Date: 12/20/24 12/20/24 10:34 Time: 10:34 12/20/24 10:34 Patient unable to answer at this time (ie. confused, unrespo /Reproduction History /Reproductive History - climatologist: /Reproductive Hx- climatologist Hx Now No 12/20/24 10:34 Gestational Age (in weeks): EDC: Hx Hx Para Hx Section SAB No 12/20/24 10:34 Active Medications Active Medications: Current Medications Generic Name Dose Route Start Last Admin Trade Name Freq PRN Reason Stop Dose Admin Acetaminophen 1,000 mg 12/26/24 07:30 12/26/24 06:28 Acetaminophen 500 Mg Tablet PO 12/26/24 07:31 1,000 mg PREOP ONE Administration Gabapentin 600 mg 12/26/24 07:30 12/26/24 06:28 Gabapentin 600 Mg Tablet PO 12/26/24 07:31 600 mg PREOP ONE Administration Lactated Ringer's 1,000 mls @ 40 mls/hr 12/12/24 08:30 IV .Q25H LAWANDA Cefotetan Disodium 2 gm/ 100 mls @ 200 mls/hr 12/26/24 07:30 Sodium Chloride IV 12/26/24 07:59 INTRAOP ONE Lactated Ringer's 1,000 mls @ 40 mls/hr 12/26/24 07:30 IV 12/27/24 08:29 .Q25H ONE Lactated Ringer's 1,000 mls @ 40 mls/hr 12/26/24 08:30 IV .Q25H LAWANDA Magnesium Sulfate 1 gm/ 102 mls @ 408 mls/hr 12/26/24 07:30 12/26/24 06:28 Dextrose IV 12/26/24 07:44 408 mls/hr PREOP ONE Administration Lactated Ringer's 1,000 mls @ 15 mls/hr 12/26/24 05:45 12/26/24 06:28 IV 15 mls/hr .Q48H LAWANDA Administration Insulin Human Lispro 0 unit 12/26/24 07:30 Insulin Lispro 100 Unit/Ml Insuln.Pen SC 12/26/24 13:30 Q4H PRN PRN BG >/= 180, SEE PROTOCOL Protocol PFSH Medical History Loss of hearing Cancer [...] PO QHS BPH 04/20/21 0 12/10/24 History multivitamin 1 tab PO DAILY SUPPLEMENT 12/10/24 [...] 3 ml inhalation Q6H PRN shortness 12/11/24 12/26/24 History (2.5 mg base)/3 mL nebulization of breath or wheezing soln sodium sul 1.479 gram-potas ch See Rx Instructions PO PER PKG DIR 12/16/24 Unknown Rx 0.188 gram-magnes sul 0.225 gram #1 pkg tablet (Sutab) Allergy/AdvReac Type Severity Reaction Status Date / Time No Known Allergies Allergy Verified 12/26/24 06:07 Family History Father Diabetes Hypertension CVA (cerebral vascular accident) Mother Thyroid disorder Arthritis Surgical History Hx of colonoscopy Hx of right cataract extraction Hx of [...] and no additional complaints, except as documented. 12/26/24723 <Electronically signed by Mamta silverio CRNA> Date _ Mamta Dc CRNA Cosigner Signature: Date CC: ~ Signed [facility] Work Phone: 1(523) 604-896810-02-2025 History and physical note Author Zuleyma Storm [facility] Note Date/Time December 26, 2024 7: 14am [facility] Medical Records Department [address] [place] [id number] History & Physical Exam 12/26/2412 MR#: [id number] Acct: [id number] Name: MARGAUX SANDERSON Rep #:[id number] : 1940 84 From: Zuleyma Storm MD PCP: Dr. Alexander Steiner MD Status:ADM I N Location: [place] [address] History and Physical Date of Admission: 12/26/24 History and Physical Date of Admission: 12/11/24 Date of Service: 12/04/24 MR#: [id number] Acct: [id number] Name: MARGAUX SANDERSON Rep #: [id number] : 1940 Provider: Dr. Zuleyma Storm MD Age/Sex: 84/M Location: [facility] Status: Signed Intake Vital Signs 12/02/2508:16 12/02/2509:30 [...] the poor prep. Did review patient's previous colonoscopynote, pictures and pathology. Patient did just get [...] headache(s), No lack of coordination, No loss of vision, No memory loss, No numbness, No other [...] questions were answered. Zuleyma Storm M.D. Pager: [phone] [facility] [address] [place] [address], [address] [place] [address] Office: [phone] Coding Level of Care Code Off vis,new,level [...] 12/11/24 1003<Electronically signed by Zuleyma Storm MD> Addendum?patient colonoscopy and multiple tubulovillous adenomas as well as a 3.5 cm polyp at the sigmoid. Awaiting pathology prior to doing right hemicolectomy will plan to delay right Zoe. 12/26/24 0714 <Electronically signed by Zuleyma Storm MD> Cosigner Signature (if applicable): CC: Dr. Alexander Steiner MD; Dr. Zuleyma Storm MD~ Signed ADDENDUM by Dr. Zuleyma Storm MD on 12/26/24 at 0714 Addendum I have examined the patient and the H&P has been reviewed. There are no clinicalchanges since date of exam. Patient's pathology showed multiple tubular villousadenomas as well as 1 at the sigmoid which was the larger polyp. Patient understands he will be getting repeat colonoscopy within 6 months. Zuleyma Storm M.D. Pager: [phone] [facility] [address] [place] [address], [facility]patient [facility], [address] [place] [address] Office: [phone] 12/26/2414<Electronically signed by Zuleyma Storm MD> Cosigner Signature (if applicable): cc: Dr. Alexander Steiner MD; Dr. Zuleyma Storm MD ~* Signed [facility] Work Phone: 1(932) 380-739110-02-2025 Consult note [facility] Medical Records Department [address] [place] [address] Pre-Anesthesia Evaluation 12/26/24716 MR#: [id number] Acct: [id number] Name: MARGAUX SANDERSON Rep #:[id number] : 1940 84 From: Mamta bales CRNA PCP: Dr. Alexander Steiner MD Status:ADM I N Y Race: C Location: [place] [address] ASA Classification* ASA Classification ASA Classification: 3 [...] anesthesia risk assessments. Anesthesia Type Anesthesia Type: General History Source History Obtained from:: Patient and Chart Anesthesia Focused Assessment* Temperature: 97.5 F Pulse Rate: 71 Blood Pressure: 131/72 Respiratory Rate: 16 Pulse Ox: 98 Oxygen Delivery Method: Room Air Airway Assessment Mouth opens: >3 cm Mallampati Score: I Teeth Condition: Dentures (upper dentures out, bottom pinned in) Neck Range of motion (ROM): Full ROM Labs Anesthesia Preop lab: CBC WBC, (4.4-11.0) 6.5 K/mm3 12/11/24, 10:07 RBC, (4.6-6.2) 4.76 M/mm3 12/11/24, 10:07 Hgb, (13.0-16.5) 10.8 g/dL L 12/11/24, 10:07 Hct, (40-54) 35.0 % L 12/11/24, 10:07 Plt Count, (150-450) 266 K/mm3 12/11/24, 10:07 CHEMISTRY Potassium, (3.3-5.1) 4.2 mmol/L 11/28/24, 16:30 Sodium, (133-145) 140 mmol/L 11/28/24, 16:30 Magnesium, (1.5-2.2) 2.0 mg/dL 12/09/24, 10:28 BUN, (4-19) 8 mg/dL 11/28/24, 16:30 Creatinine, (0.70-1.20) 0.70 mg/dL 11/28/24, 16:30 Glucose, (70-99) 100 mg/dL H 11/28/24, 16:30 POC Glucose, (74-106) 106 mg/dL Today, 06:09 TSH, (0.300-4.200) 0.074 uIU/mL L 09/16/24, 10:48 COAG PT, (11.7-14.9) 14.0 SECONDS 11/28/24, 16:30 Lab additional comments: Dr. Storm ordered CBC to obtain Pre-Assessment Diagnosis/Proposed Procedure Planned Operative Procedure(s): LAPAROSCOPIC POSS OPEN RIGHT ZOE COLECTOMY Anesthesia History Anesthesia History - climatologist: Anesthesia History - climatologist Hx Hospitalization No 12/20/24 10:34 Any Problems With Anesthesia No 12/20/24 10:34 Cholinesterase deficiency No 12/20/24 10:34 You/Your Family Experience No 12/20/24 10:34 fever (hyperthermia) with Relationship Recent Exposure to Contagious No 12/26/24 06:12 Disease Does patient have nerve No 12/20/24 10:34 stimulator Patient instructed to have device shut off --Does patient have Pacemaker No 12/26/24 06:12 or ICD? When Was Last Pacemaker Check QUESTION #4 FULL TEXT: You/Your Family Experience fever (hyperthermia) with Anesthesia Last Oral Intake Last Oral intake: Last Oral Intake NPO since 23:00 12/26/24 06:12 Meds taken in AM with sips of No 12/26/24 06:12 water? 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 - climatologist: PONV - climatologist Female No 12/20/24 10:34 HX of Motion Sickness No 12/20/24 10:34 HX of N/V After Surgery No 12/20/24 10:34 Non-Smoker No 12/20/24 10:34 Duration of Surgery greater Yes 12/20/24 10:34 than 60 minutes Number of Risk Factors 1 12/20/24 10:34 PONV Score Low Risk 12/20/24 10:34 Height & Weight Height & Weight: Anesthesia: Height & Weight Height 5 ft 7 in 12/26/24 06:12 Weight: 51 kg 12/26/24 06:12 Body Mass Index (BMI) 17.6 12/26/24 06:12 Respiratory Assessment Respiratory Assessment - climatologist: Respiratory Tract Infection Hx - climatologist Hx Respiratory Tract Infection No 12/20/24 10:34 STOP Sleep Apnea STOP Sleep Apnea - climatologist: STOP Sleep Apnea - climatologist Hx Hypertension Yes: NO MEDS FOR 4 MONTHS/ 12/20/24 10:34 CURRENTLY HYPOTENSIVE Hx Sleep Apnea No 12/20/24 10:34 CPAP BIPAP Do you snore loudly (louder No 12/20/24 10:34 than talking or can be heard Do you often feel tired/ No 12/20/24 10:34 fatigued/ sleepy during daytime? Has anyone observed you stop No 12/20/24 10:34 breathing during sleep? STOP Results Negative 12/20/24 10:34 QUESTION #5 FULL TEXT : Do you snore loudly (louder than talking or can be heard through closeddoors)? Tobacco Use History Tobacco Use History - climatologist: Tobacco Use History - climatologist Tobacco Use Smoking Status Current every day smoker 12/20/24 10:34 Hx Tobacco Use Yes 12/20/24 10:34 Years Smoking Packs Smoked per Day Smoking Cessation Date was within the last 15 years Hx Smoking Cessation Date 03/27/08 12/20/24 10:34 Hx Smoking Cessation No 12/20/24 10:34 Counseling Hematologic Medial History Hematologic Hx - climatologist: Hematologic Medical Hx - teletype telegrapher Hx of Blood Transfusion Yes 12/20/24 10:34 Hx of Transfusion in last 3 Yes 12/20/24 10:34 Months Date of Last Transfusion (if 11/29/24 12/20/24 10:34 within last 3 months) Ever experience any problems Yes 12/20/24 10:34 with transfusion(s)? Specify any problems FATIGUE AND HEADACHE 12/20/24 10:34 Hx of Preganancy in last 3 N/A 12/20/24 10:34 Months Nurse Filling Out Transfusion DSCHRIBER 12/20/24 10:34 & Questions: Date: 12/20/24 12/20/24 10:34 Time: 10:34 12/20/24 10:34 Patient unable to answer at this time (ie. confused, unrespo /Reproduction History /Reproductive History - climatologist: /Reproductive Hx- climatologist Hx Now No 12/20/24 10:34 Gestational Age (in weeks): EDC: Hx Hx Para Hx Section SAB No 12/20/24 10:34 Active Medications Active Medications: Current Medications Generic Name Dose Route Start Last Admin Trade Name Freq PRN Reason Stop Dose Admin Acetaminophen 1,000 mg 12/26/24 07:30 12/26/24 06:28 Acetaminophen 500 Mg Tablet PO 12/26/24 07:31 1,000 mg PREOP ONE Administration Gabapentin 600 mg 12/26/24 07:30 12/26/24 06:28 Gabapentin 600 Mg Tablet PO 12/26/24 07:31 600 mg PREOP ONE Administration Lactated Ringer's 1,000 mls @ 40 mls/hr 12/12/24 08:30 IV .Q25H LAWANDA Cefotetan Disodium 2 gm/ 100 mls @ 200 mls/hr 12/26/24 07:30 Sodium Chloride IV 12/26/24 07:59 INTRAOP ONE Lactated Ringer's 1,000 mls @ 40 mls/hr 12/26/24 07:30 IV 12/27/24 08:29 .Q25H ONE Lactated Ringer's 1,000 mls @ 40 mls/hr 12/26/24 08:30 IV .Q25H LAWANDA Magnesium Sulfate 1 gm/ 102 mls @ 408 mls/hr 12/26/24 07:30 12/26/24 06:28 Dextrose IV 12/26/24 07:44 408 mls/hr PREOP ONE Administration Lactated Ringer's 1,000 mls @ 15 mls/hr 12/26/24 05:45 12/26/24 06:28 IV 15 mls/hr .Q48H LAWANDA Administration Insulin Human Lispro 0 unit 12/26/24 07:30 Insulin Lispro 100 Unit/Ml Insuln.Pen SC 12/26/24 13:30 Q4H PRN PRN BG >/= 180, SEE PROTOCOL Protocol PFSH Medical History Loss of hearing Cancer [...] PO QHS BPH 04/20/21 0 12/10/24 History multivitamin 1 tab PO DAILY SUPPLEMENT 12/10/24 [...] 3 ml inhalation Q6H PRN shortness 12/11/24 12/26/24 History (2.5 mg base)/3 mL nebulization of breath or wheezing soln sodium sul 1.479 gram-potas ch See Rx Instructions PO PER PKG DIR 12/16/24 Unknown Rx 0.188 gram-magnes sul 0.225 gram #1 pkg tablet (Sutab) Allergy/AdvReac Type Severity Reaction Status Date / Time No Known Allergies Allergy Verified 12/26/24 06:07 Family History Father Diabetes Hypertension CVA (cerebral vascular accident) Mother Thyroid disorder Arthritis Surgical History Hx of colonoscopy Hx of right cataract extraction Hx of [...] and no additional complaints, except as documented. 12/26/24723 jean claude STUCCO LABORER> Date _ Mamta Dc CRNA Cosigner Signature: Date CC: ~ Signed [facility]10-02-2025 History and physical note [facility] Medical Records Department [address] [place] [address] History & Physical Exam 12/26/24711 MR#: [id number] Acct: [id number] Name: MARGAUX SANDERSON Rep #:[id number] : 1940 84 From: Zuleyma Storm MD PCP: Dr. Alexander Steiner MD Status:ADM I N Location: [facility] A- History and Physical Date of Admission: 12/26/24 History and Physical Date of Admission: 12/11/24 Date of Service: 12/04/24 MR#: [id number] Acct: [id number] Name: MARGAUX SANDERSON Rep #: [id number] : 1940 Provider: Dr. Zuleyma Storm MD Age/Sex: 84/M Location: [facility] Status: Signed Intake Vital Signs 12/02/2508:16 12/02/2509:30 [...] to go all the way up to [place] for another colonoscopy and surgery. Plan was for a 2-day prep as he had a poor prep for the first 1 and a colonoscopy the first day and secondary laparoscopic right hemicolectomy. Discussed with family and the patient that would be a reasonable plan due to the poor prep. Did review patient's previous colonoscopynote, pictures and pathology. Patient did just get [...] headache(s), No lack of coordination, No loss of vision, No memory loss, No numbness, No other [...] questions were answered. Zuleyma Storm M.D. Pager: [phone] [facility] [address] [place] [address], [facility], [address] [place] [address] Office: [phone] Coding Level of Care Code Off vis,new,level [...] clinicalchanges since date of exam. 12/11/24 1003 Addendum?patient colonoscopy and multiple tubulovillous adenomas as well as a 3.5 cm polyp at the sigmoid. Awaiting pathology prior to doing right hemicolectomy will plan to delay right Zoe. 12/26/24 0714 Cosigner Signature (if applicable): CC: Dr. Alexander Steiner MD; Dr. Zuleyma Storm MD~ Signed ADDENDUM by Dr. Zuleyma Storm MD on 12/26/24 at 0714 Addendum I have examined the patient and the H&P has been reviewed. There are no clinicalchanges since date of exam. Patient's pathology showed multiple tubular villousadenomas as well as 1 at the sigmoidwhich was the larger polyp. Patient understands he will be getting repeat colonoscopy within 6 months. Zuleyma Storm M.D. Pager: [phone] [facility] [address] [place] [address], [facility], [address] [place] [address] Office: [phone] 12/26/24 0714 Cosigner Signature (if applicable): cc: Dr. Alexander Steiner MD; Dr. Zuleyma Storm MD ~* Signed [facility]10-02-20[facility] Consult note Author Yovani Corley [facility] Note Date/Time December 13, 2024 8:26am [facility] Medical Records Department [address] [place] [address] Anesthesia Postop Eval II 12/13/24 0824 MR#: [id number] Acct: [id number] Name: MARGAUX SANDERSON Rep #:[id number] : 1940 84 From: Yovani Corley MD PCP: Dr. Alexander Steiner MD Status:PRE I N Y Race: C Location: ADDENDUM by Dr. Yovani Corley MD on 12/13/24 at 0826 Addendum patient not seen, documentation only to clear off notations 12/13/24 0826 <Electronically signed by Yovani Corley MD > Date _ Yovani Corley MD cc: ~* Signed Anesthesia Postop Eval I Sum Postop [...] Pain Level: 0 nausea: No Vomiting: No 12/13/24823 <Electronically signed by Yovani Corley MD > Date _ [facility] Signature: Date CC: ~ Signed [facility] Work Phone: 1(335) 725-278509-19-2025 Consult note [facility] Medical Records Department [address] [place] [address] Anesthesia Postop Eval II 12/13/24823 MR#: [id number] Acct: [id number] Name: MARGAUX SANDERSON Rep #:[id number] : 1940 84 From: Yovani Corley MD PCP: Dr. Alexander Steiner MD Status:PRE I N Y Race: C Location: ADDENDUM by Dr. Yovani Corley MD on 12/13/24 at 0826 Addendum patient not seen, documentation only to clear off notations 12/13/24 08 > Date _ Yovani Corley MD cc: ~* Signed Anesthesia Postop Eval I Sum Postop [...] Eval I: Fluid Summary Crystalloid volume administer ,714 12/12/24 18:55 (ml) Colloids volume administered ( ml) Blood Product volume administered (ml) Total IV fluid infused ,714 12/12/24 18:55 Anesthesia Postop Eval I: Summary Notes Anesthesia Complication No 12/12/24 18:55 Anesthesia Complication Comment: Post-operative progress note Anesthesia: Postop Eval II Evaluation Mental status: Awake Pain Level: 0 nausea: No Vomiting: No 12/13/24 0824 > Date _ Yovani Watts Signature: Date CC: ~ Signed [facility]09-17-2025 Consult note [facility] Medical Records Department [address] [place] [address] Anesthesia Postop Eval II 12/11/24 1329 MR#: [id number] Acct: [id number] Name: MARGAUX SANDERSON Rep #:[id number] : 1940 84 From: Nitin Chung PCP: Dr. Alexander Steiner MD Status:REG S DC Y Race: C Location: [facility]18- Anesthesia Postop Eval I Sum Anesthesia Postop [...] No Complications Anesthesia Complication: No 12/11/24 1329 MD> Date _ Nitin Santiago MD Cosigner Signature: Date CC: ~ Signed [facility]09-17-2025 Consult note Author Nitin Santiago [facility] Note Date/Time December 11, 2024 3:[address] [place] [address] Medical Records Department [address] [place] [address] Anesthesia Postop Eval II 12/11/24 1329 MR#: [id number] Acct: [id number] Name: MARGAUX SANDERSON Rep #:[id number] : 1940 84 From: Nitin Chung PCP: Dr. Alexander Steiner MD Status:REG S DC Y Race: C Location: [place] [address] Anesthesia Postop Eval I Sum Anesthesia Postop [...] No Complications Anesthesia Complication: No 12/11/24 1329 <Electronically signed by Nitin Santiago MD> Date _ Nitin Santiago MD Cosigner Signature: Date CC: ~ Signed [facility] Work Phone: 1(990) 120-139209-17-2025 Procedure note [facility] Medical Records Department [address] [place] [address] Provation Physician Letter MR#: [id number] Acct: [id number] Name: MARGAUX SANDERSON Rep #:[id number] : 1940 84 From: Zuleyma Storm MD PCP: Dr. Alexander Steiner MD Status:REG S DC 12/11/2024 Alexander Steiner MD [address] [place] [address] Re : Colonoscopy procedure for Margaux Sanderson [...] ~ Date Dictated: 12/11/24 1005 Date Transcribed: Hide Grader: TR Signed [facility]09-17-2025 Procedure note [facility] Medical Records Department [address] [place] [address] Colonoscopy Report MR#: [id number] Acct: [id number] Name: MARGAUX SANDERSON Rep #:[id number] : [...] if benign. Procedure Code(s): --- Professional --- 16114, Colonoscopy, flexible; with removal of tumor(s), polyp(s), or other lesion(s) by snare technique 37251, Colonoscopy, flexible; with directed submucosal injection(s), any substance Diagnosis Code(s): --- Professional --- D12.5, Benign neoplasm of sigmoid colon D12.4, Benign neoplasm of descending colon D12.3, Benign neoplasm of transverse colon (hepatic flexure or splenic flexure) D12.2, Benign neoplasm of ascending colon D12.0, Benign neoplasm of cecum R19.5, Other fecal abnormalities Z86.010, Personal history of colonic polyps CPT copyright 2021 [employer]. All rights reserved. The codes documented in this report are preliminary and upon carbon grinder review may be revised to meet current compliance requirements. MD Zuleyma Doe MD 12/11/2024 12:21:27 PM This report has been signed electronically. Number of Addenda: 0 Note Initiated On: 12/11/2024 10:05 AM 12/11/24 1221 Date _ Zuleyma Storm MD Cosigner Signature: Date (if indicated) CC: Dr. Alexander Steiner MD; Dr. Zuleyma Storm MD ~ Date Dictated: 12/11/24 1005 Date Transcribed: Hide Grader: TR Wai [facility]09-17-2025 History and physical note Author Zuleyma Storm [facility] Note Date/Time December 11, 2024 10:03am [facility] Medical Records Department [address] [place] [address] History & Physical Exam 12/11/24 0955 MR#: [id number] Acct: [id number] Name: MARGAUX SANDERSON Rep #:[id number] : 1940 84 From: Zuleyma Storm MD PCP: Dr. Alexander Steiner MD Status:REG S DC Location: [place] [address] History and Physical Date of Admission: 12/11/24 Date of Service: 12/04/24 MR#: [id number] Acct: [id number] Name: MARGAUX SANDERSON Rep #: [id number] : 1940 Provider: Dr. Zuleyma Storm MD Age/Sex: 84/M Location: [facility] Status: Signed Intake Vital Signs 12/02/2508:16 12/02/2509:30 [...] to go all the way up to [place] for another colonoscopy and surgery. Plan was [...] and no acute distress Nutritional Appearance: underweight [facility] Head: normocephalic and atraumatic Neck Neck: supple [...] questions were answered. Zuleyma Storm M.D. Pager: [phone] [facility] [address] [place] [address], [facility], [address] [place] [id number] Office: [phone] Coding Level of Care Code Off vis,new,level [...] Zuleyma Storm MD ~* Signed [facility] Work Phone: 1(198) 657-339809-17-2025 Consult note Author Nitin Santiago [facility] Note Date/Time December 11, 2024 9:45am [facility] Medical Records Department [address] [place] [address] Pre-Anesthesia Evaluation 12/11/24 0936 MR#: [id number] Acct: [id number] Name: MARGAUX SANDERSON Rep #:[id number] : 1940 84 From: Nitin Chung PCP: Dr. Alexander Steiner MD Status:REG S DC Y Race: C Location: [place] [address] ASA Classification* ASA Classification ASA Classification: 3 [...] Procedure(s): COLONOSCOPY Anesthesia History Anesthesia History - climatologist: Anesthesia History - climatologist Hx Hospitalization No 12/06/24 09:42 Any Problems [...] take am of surgery PONV PONV - climatologist: PONV - climatologist Female No 12/06/24 09:19 HX of Motion [...] 12/11/24 09:18 Respiratory Assessment Respiratory Assessment - climatologist: Respiratory Tract Infection Hx - climatologist Hx Respiratory Tract Infection No 12/06/24 09:42 STOP Sleep Apnea STOP Sleep Apnea - climatologist: STOP Sleep Apnea - climatologist Hx Hypertension Yes: NO MEDS FOR 4 [...] Tobacco Use History Tobacco Use History - climatologist: Tobacco Use History - climatologist Tobacco Use Smoking Status Current every day smoker 12/06/24 09:42 Hx Tobacco Use Yes 12/06/24 09:42 Years Smoking Packs Smoked per Day Smoking Cessation Date was No - quit smoking greater 12/06/24 09:19 within the last 15 years than 15 years ago Hx Smoking Cessation Date 03/27/08 12/06/24 09:42 Hx Smoking Cessation No 12/06/24 09:42 Counseling Hematologic Medial History Hematologic Hx - climatologist: Hematologic Medical Hx - teletype telegrapher Hx of Blood Transfusion Yes 12/06/24 09:19 [...] confused, unrespo /Reproduction History /Reproductive History - climatologist: /Reproductive Hx- climatologist Hx Now No 12/06/24 09:19 Gestational Age [...] and no additional complaints, except as documented. 12/11/2445 <Electronically signed by Nitin Santiago MD> Date _ Nitin Santiago MD Cosigner Signature: Date CC: ~ Signed [facility] Work Phone: 1(559) 553-449509-17-2025 History and physical note [facility] Medical Records Department [address] [place] [address] History & Physical Exam 12/11/24954 MR#: [id number] Acct: [id number] Name: MARIA EMARGAUX CLAIRE Rep #:[id number] : 1940 84 From: Zuleyma Storm MD PCP: Dr. Alexander Steiner MD Status:REG S DC Location: [place] [address] History and Physical Date of Admission: 12/11/24 Date of Service: 12/04/24 MR#: [id number] Acct: [id number] Name: MARGAUX SANDERSON Rep #: [id number] : 1940 Provider: Dr. Zuleyma Storm MD Age/Sex: 84/M Location: [facility] Status: Signed Intake Vital Signs 12/02/2508:16 12/02/2509:30 [...] to go all the way up to [place] for another colonoscopy and surgery. Plan was [...] and no acute distress Nutritional Appearance: underweight [facility] Head: normocephalic and atraumatic Neck Neck: supple [...] questions were answered. Zuleyma Storm M.D. Pager: [phone] [facility] [address] [place] [address], [facility], [address] [place] [address] Office: [phone] Coding Level of Care Code Off vis,new,level [...] Zuleyma Storm MD ~* Signed [facility]09-17-2025 [facility]2025 Consult note [facility] Medical Records Department [address] [place] [address] Pre-Anesthesia Evaluation 12/11/24 0936 MR#: [id number] Acct: [id number] Name: MARGAUX SANDERSON Rep #:[id number] : 1940 84 From: Nitin Chung PCP: Dr. Alexander Steiner MD Status:REG S DC Y Race: C Location: [place] [address] ASA Classification* ASA Classification ASA Classification: 3 [...] Procedure(s): COLONOSCOPY Anesthesia History Anesthesia History - climatologist: Anesthesia History - climatologist Hx Hospitalization No 12/06/24 09:42 Any Problems [...] take am of surgery PONV PONV - climatologist: PONV - climatologist Female No 12/06/24 09:19 HX of Motion [...] 12/11/24 09:18 Respiratory Assessment Respiratory Assessment - climatologist: Respiratory Tract Infection Hx - climatologist Hx Respiratory Tract Infection No 12/06/24 09:42 STOP Sleep Apnea STOP Sleep Apnea - climatologist: STOP Sleep Apnea - climatologist Hx Hypertension Yes: NO MEDS FOR 4 [...] Tobacco Use History Tobacco Use History - climatologist: Tobacco Use History - climatologist Tobacco Use Smoking Status Current every day smoker 12/06/24 09:42 Hx Tobacco Use Yes 12/06/24 09:42 Years Smoking Packs Smoked per Day Smoking Cessation Date was No - quit smoking greater 12/06/24 09:19 within the last 15 years than 15 years ago Hx Smoking Cessation Date 03/27/08 12/06/24 09:42 Hx Smoking Cessation No 12/06/24 09:42 Counseling Hematologic Medial History Hematologic Hx - climatologist: Hematologic Medical Hx - teletype telegrapher Hx of Blood Transfusion Yes 12/06/24 09:19 [...] confused, unrespo /Reproduction History /Reproductive History - climatologist: /Reproductive Hx- climatologist Hx Now No 12/06/24 09:19 Gestational Age [...] additional complaints, except as documented. 12/11/24 0945 > Date _ Nitin Santiago MD Cosigner Signature: Date CC: ~ Signed [facility]09-05-2025 Telephone encounter Note* Telephone Encounter - Leena Bowles LPN - 11/29/2024 4:11 PM EDT Images from the original note were not included. José Luis Pichardo hours ago (12:25 PM) patient will need to contact medical records Called Leslie. Verified name and date of of patient. Notified. Leena Bowles LPN [facility]09-05-2025 Miscellaneous Notes* Telephone Encounter - Leena Bowles [...] Dr. Zuleyma Storm MD with [facility] General Surgery. They need the surgerythat is recommended by Dr. Machuca, report of colonoscopy and images (Leslie will get a hold of medical records for imaging). No fax number available. Clinic number for : .Leena Bowles LPN * Telephone Encounter - Ely Hernández MA - 11/28/2024 8:42 AM EDT Pre op medical clearance letter faxed to Dr. Steiner. [phone] Ely Hernández MA * Telephone Encounter - [...] request for testing to be uploaded into [facility]. Appointment scheduled for . Leena Bowles LPN [...] coming. Please advise Leslie [facility] Telephone encounter Note * Telephone Encounter - Leena Bowles LPN - 11/29/2024 11:58 AM EDT Leslie called. Verified name and date of of patient. Patient has decided to have surgery done by Dr. Zuleyma Storm MD with [facility]. They need the surgerythat is recommended by Dr. Machuca, report of colonoscopy and images (Leslie will get a hold of medical records for imaging). No fax number available. Clinic number for : .Leena Bowles LPN [facility]09-04-2025 Telephone encounter Note* Telephone Encounter - Ely Hernández MA - 11/28/2024 8:42 AM EDT Pre op medical clearance letter faxed to Dr. Steiner. [phone] Ely Hernández MA [facility]09-03-2025 Telephone encounter Note* Telephone Encounter - Imani Rodriguez MA - 11/27/2024 3:07 PM EDT Received a call from patients daughter stating he has an appointment with Dr. Steiner tomorrow and they have not received any forms that need filled out for surgical clearance. Please send surgical clearance form to Dr. Steiner's office. [facility]08-29-2025 Telephone encounter Note* Telephone Encounter - Leena [...] request for testing to be uploaded into [facility]. Appointment scheduled for . Leena Bowles LPN [facility]08-28-2025 Telephone encounter Note* Telephone Encounter - Jennifer [...] prior to records coming. Please advise Leslie [facility]08-28-2025 NoteHNO ID: [id number] Author: SAURAV MACHUCA MD Service: ? Author Type: Physician Type: Progress Notes Filed: 11/21/2024 06:35 Note Text: FOLLOW UP VISIT - ENDOSCOPY NAME: Margaux [facility] NO.: [id number] DATE OF SERVICE: 11/20/2024 : 1940 REFERRING [...] upper lobe lung cancer. He follows with [facility]. He completed radiation in 2022. Disease is stable. He has a hx of COPD- uses duoneb daily, but no other inhalers. Is able to walk up steps AND complete activity with no issues Margaux follows with [facility]. Last OV 08/2024. He had a stress test in 2023 EF was 57% AND there was no evidence of ischemia. He CP, SOB, dizziness, palpitations, syncope, edema, recent hospitalizations Margaux has undergone prior endoscopy. Last EGD AND colonoscopy was 01/[address] Machuca at [facility]. Sedation: MAC T he entire [...] a clip was placed (more content not included)...[facility]08-28-2025 History of Present illness Narrative* Saurav Machuca MD - 11/21/2024 6:25 AM EDT FOLLOW UP VISIT - ENDOSCOPY NAME: Margaux Sanderson CLINIC NO.: [id number] DATE OF SERVICE: 11/20/2024 : 1940 REFERRING [...] upper lobe lung cancer. He follows with [facility]. He completed radiation in 2022. Disease is stable. He has a hx of COPD- uses duoneb daily, but no other inhalers. Is able to walk up steps & complete activity with no issues Margaux follows with [facility]. Last OV 08/2024. He had a stress test in 2023 EF was 57% & there was no evidence of ischemia. He CP, SOB, dizziness, palpitations, syncope, edema, recent hospitalizations Margaux has undergone prior endoscopy. Last EGD & colonoscopy was 01/[address] Machuca at [facility]. Sedation: MAC T he entire [...] Dr. Steiner for evaluation and have Dr. Steiner forward recentmedical records and studies to arrange [...] limiting complete polypectomy. - Repeat colonoscopy at [facility] with improved bowel preparation over 2 days [...] physician. Saurav Machuca MD documented in [facility]08-[facility] Instructions* Patient Instructions* Saurav Machuca MD - [...] two-step approach: 1. A repeat colonoscopy at [facility] to remove as many remaining polyps as [...] schedule the repeat colonoscopy and surgery at [facility]. You will receive instructions on the exact dates and times. - If you notice a metal clip in your stool, it is from the previous procedure and is normal. Please let us know if you have any questions or concerns as we move forward with this plan. documented in [facility] encounterB[facility]08-[facility]-2025 Note* Discharge Instr - Nia Saul RN - 11/15/2024 9:44 AM EDT The patient received a copy of Colonoscopy and EGD discharge instructions that contain information for how to contact the physician who performed the procedure and when to seek medical care. [facility]08-22-2025 Miscellaneous Notes* Discharge Instr - Nursing Nia Davey RN - 11/15/2024 9:44 AM EDT The patient received a copy of Colonoscopy and EGD discharge instructions that contain information for how to contact the physician who performed the procedure and when to seek medical care. documented in this encounterBelle[facility]08-[facility]-2025 Attending History and physical note* Saurav Machuca [...] upper lobe lung cancer. He follows with [facility]. He completed radiation in 2022. Disease is stable. He has a hx of COPD- uses duoneb daily, but no other inhalers. Is able to walk up steps & complete activity with no issues Margaux follows with [facility]. Last OV 08/2024. He had a stress test in 2023 EF was 57% & there was no evidence of ischemia. He CP, SOB, dizziness, palpitations, syncope, edema, recent hospitalizations Margaux has undergone prior endoscopy. Last EGD & colonoscopy was 01/[address] Machuca at [facility]. Sedation: MAC T he entire [...] of colon, follow up 1 year - [facility] [place] that time EGD TRANSORAL BIOPSY SINGLE/MULTIPLE [...] edited and updated as necessary. Valerie Gaitan APRN.SCHOOL PSYCHOLOGICAL EXAMINER [facility]08-22-2025 History and physical note* Saurav Machuca MD [...] upper lobe lung cancer. He follows with [facility]. He completed radiation in 2022. Disease is stable. He has a hx of COPD- uses duoneb daily, but no other inhalers. Is able to walk up steps & complete activity with no issues Margaux follows with [facility]. Last OV 08/2024. He had a stress test in 2023 EF was 57% & there was no evidence of ischemia. He CP, SOB, dizziness, palpitations, syncope, edema, recent hospitalizations Margaux has undergone prior endoscopy. Last EGD & colonoscopy was 01/[address] Machuca at [facility]. Sedation: MAC T he entire [...] edited and updated as necessary. Valerie Gaitan APRN.SCHOOL PSYCHOLOGICAL EXAMINER [facility]08-22-2025 History and physical note* Saurav Machuca MD [...] upper lobe lung cancer. He follows with [facility]. He completed radiation in 2022. Disease is stable. He has a hx of COPD- uses duoneb daily, but no other inhalers. Is able to walk up steps & complete activity with no issues Margaux follows with [facility]. Last OV 08/2024. He had a stress test in 2023 EF was 57% & there was no evidence of ischemia. He CP, SOB, dizziness, palpitations, syncope, edema, recent hospitalizations Margaux has undergone prior endoscopy. Last EGD & colonoscopy was 01/[address] Machuca at [facility]. Sedation: MAC T he entire [...] edited and updated as necessary. Valerie Gaitan APRN.SCHOOL PSYCHOLOGICAL EXAMINER * Saurav Machuca MD - 11/15/2024 7:45 [...] upper lobe lung cancer. He follows with [facility]. He completed radiation in 2022. Disease is stable. He has a hx of COPD- uses duoneb daily, but no other inhalers. Is able to walk up steps & complete activity with no issues Margaux follows with [facility]. Last OV 08/2024. He had a stress test in 2023 EF was 57% & there was no evidence of ischemia. He CP, SOB, dizziness, palpitations, syncope, edema, recent hospitalizations Margaux has undergone prior endoscopy. Last EGD & colonoscopy was 01/[address] Machuca at [facility]. Sedation: MAC T he entire [...] of colon, follow up 1 year - [facility] [place] that time EGD TRANSORAL BIOPSY SINGLE/MULTIPLE [...] edited and updated as necessary. Valerie Gaitan APRN.SCHOOL PSYCHOLOGICAL EXAMINER documented in this encounterBelle[facility]08-[facility]-2025 Progress [facility] [address] [place] [address] OFFICE VISIT Date of Service: 10/31/24 1303 MR#: [id number] Acct: [id number] Name: MARGAUX SANDERSON Rep #: [id number] : 1940 From: Alejandro abad DO Age/Sex: 84/M Location: [facility] Status: Signed Intake Vital Signs 07/08/24 [...] mcg PO QDAY 09/24/24 Un known History (Daliresandrés) Allergy/AdvReac Type Severity Reaction Status Date / [...] any time. ? Alejandro Machado DO, MS Materials Engineer, Department of Radiation Oncology [facility] Coding Level of Care Code Off vis,est,level 3 Diagnoses Primary adenocarcinoma of upper lobe of right lung C34.11 10/31/24 1333 DO> Date _ [facility] Signature: Date (if applicable) CC: ~ [facility]08-07-2025 Progress note Author Alejandro Machado [facility] Services Note Date/Time October 31, 2024 1:3 3pm [facility] [address] [address] OFFICE VISIT Date of Service: 10/31/24 1303 MR#: [id number] Acct: [id number] Name: MARGAUX SANDERSON Rep #: [id number] : 1940 From: Alejandro abad DO Age/Sex: 84/M Location: [facility] Status: Signed Intake Vital Signs 07/08/24 [...] tablet 500 mcg PO QDAY 09/24/24 History (Kishaniresp) Have you fallen in the past year?: [...] mcg PO QDAY 09/24/24 Un known History (Kishaniresandrés) Allergy/AdvReac Type Severity Reaction Status Date / [...] any time. ? Alejandro Machado DO, MS Materials Engineer, Department of Radiation Oncology [facility] Coding Level of Care Code Off vis,est,level 3 Diagnoses Primary adenocarcinoma of upper lobe of right lung C34.11 10/31/24 1333 <Electronically signed by Alejandro Machado DO> Date _ Alejandro Machado DO Cosigner Signature: Date (if applicable) CC: ~ [facility] Work Phone: 1(301) 977-566908-06-2025 Radiology Diagnostic study note [facility] Imaging Services [address] [place], [place] [id number] Chest WITH Contrast MR#: [id number] Acct: [id number] Name: MARGAUX SANDERSON Rep #: [id number] : 1940 M 84 From: Robert Knowles MD PCP: Dr. Alexander Steiner MD Status: REG C MADELEINE Study:Chest WITH Contrast Date of Exam: 10/29/24 Exam# [id number] Ordering Dr: Alejandro Machado DO PROCEDURE: CHEST [...] is is present Stable examination. Reading Location: [id number] CC: Dr. Alejandro Machado DO; Dr. Alexander Steiner MD ~ Hide Grader: Signed [facility]07-25-2025 Telephone encounter Note* Telephone Encounter - Valerie Gaitan APRN.CNP - 10/18/2024 10:48 AM EDT Rachidytely sent to [facility] in [place]. [facility]07-25-[facility] Miscellaneous Notes* Telephone Encounter - Valerie Gaitan APRN.CNP - 10/18/2024 10:48 AM EDT Vesna sent to [facility] in [place]. * Telephone Encounter - Sunithadelphine Debbie - 10/15/2024 8:20 AM EDT Patient daughter called and had her father drink the Golytley yesterday because she thought the colonoscopy was on 10/15/24. Please send another Golytley to the pharmacy in [place] for procedure on 11/15/24. documented in this encounterBellevue Hospital07-22-2025 Telephone encounter Note * Telephone Encounter - Sunithadelphine Debbie - 10/15/2024 8:20 AM EDT Patient daughter called and had her father drink the Golytley yesterday because she thought the colonoscopy was on 10/15/24. Please send another Golytley to the pharmacy in [place] for procedure on 11/15/24. [facility]07-09-2025 Radiology Diagnostic study note [facility] Imaging Services [address] [place] [id number] Abdomen/Pelvis WITH Contrast MR#: [id number] Acct: [id number] Name: MARGAUX SANDERSON Rep #: [id number] : 1940 M 84 From: Robert Knowles MD PCP: Dr. Alexander Steiner MD Status: [facility] C M[place] Study:Abdomen/Pelvis WITH Contrast Date of Ex am: 10/02/24 Exam# [id number] Ordering Dr: Alexander Steiner MD PROCEDURE: ABDOMEN/PELVIS [...] No acute abnormality is seen. Reading Location: [place] [address] CC: Dr. Alexander Steiner MD ~ Hide Grader: Signed [facility]07-07-2025 History of Present illness Narrative* Valerie Gaitan APRN.SCHOOL PSYCHOLOGICAL EXAMINER - 09/30/2024 11:30 AM EDT HISTORY AND [...] upper lobe lung cancer. He follows with [facility]. He completed radiation in 2022. Disease is stable. He has a hx of COPD- uses duoneb daily, but no other inhalers. Is able to walk up steps & complete activity with no issues Margaux follows with [facility]. Last OV 08/2024. He had a stress test in 2023 EF was 57% & there was no evidence of ischemia. He CP, SOB, dizziness, palpitations, syncope, edema, recent hospitalizations Margaux has undergone prior endoscopy. Last EGD & colonoscopy was 01/[address] Machuca at [facility]. Sedation: MAC T he entire [...] necessary. Valerie Gaitan APRN.SHINE documented in this encounterBellevue Hospital07-07-2025 NoteHNO ID: [id number] Author: VALERIE GAITAN APRN.CNP Service: ? Author Type: Nurse Practitioner Type: [...] upper lobe lung cancer. He follows with [facility]. He completed radiation in 2022. Disease is stable. He has a hx of COPD- uses duoneb daily, but no other inhalers. Is able to walk up steps AND complete activity with no issues Margaux follows with [facility]. Last OV 08/2024. He had a stress test in 2023 EF was 57% AND there was no evidence of ischemia. He CP, SOB, dizziness, palpitations, syncope, edema, recent hospitalizations Margaux has undergone prior endoscopy. Last EGD AND colonoscopy was 01/[address] Machuca at [facility]. Sedation: MAC T he entire [...] reflux disease) HTN (hyper (more content not included)...[facility]07-01-2025 Evaluation note* Diagnosis Onset Date Resolution Status Admit Date Carotid artery disease acute Ju ly 2024 1:54pm 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 acute October 31, 2 025 12:40pm Anemia acute November 1:11pm Multiple polyps of sigmoid colon acute December 04, 2024 1:11pm Tubulovillous adenoma acute Sep tem2024 1:11pm Multiple polyps of sigmoid colon acute December 27 11:58am S/P right colectomy acute Octob er 2024 11:58am Tubulovillous adenoma acute Oct mindy 2024 11:58am [facility] Work Phone: 1(694) 819-941307-01-2025 Evaluation note* Diagnosis Onset Date Resolution Status Admit Date Carotid artery disease acute Ju 2024 1:54pm Primary adenocarcinoma of upper lobe of right lung acute October 31, 2024 12:40pm Anemia acute November 1:11pm Tubulovillous adenoma acute Sep tem2024 1:11pm Multiple polyps of sigmoid colon resolved December 04, 2024 1:11pm S/P right colectomy acute Octob er 2024 11:58am Tubulovillous adenoma acute Oct mindy 2024 11:58am Multiple polyps of sigmoid colon resolved December 27 11:58am S/P right colectomy acute Octob er 2024 2:06pm 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 Alexander Steiner MD Status: REG Nida SALVADOR Study:CTA Head AND Neck W/ Contrast Date of E xam: 09/11/24 Exam# [id number] Ordering Dr: Alexander Steiner MD PROCEDURE: CTA [...] LEFT Vertebral: Patent left vertebral artery. Anatomy: [place] anatomy is normal. Aneurysm or [...] artery. Dominant left vertebral artery. Reading Location: [place] [address] CC: Dr. Alexander Steiner MD ~ Hide Grader: Signed [facility]06-05-2025 Evaluation note* Diagnosis Onset Date Resolution Status Admit Date Lightheadedness acute August 29, 2024 9:26am Mixed hyperlipidemia acute August 29, 2024 9:26am Coronary artery calcification chroni c August 29, 2024 9:26am Essential hypertension chronic Ju ne 2024 9:26am Carotid artery disease acute Ju 2024 1:54pm 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 acute October 31, 2 025 12:40pm [facility] Work Phone: 1(197) 503-545306-05-2025 Evaluation note* Diagnosis Onset Date Resolution Status [...] December 04, 2024 1:11pm Tubulovillous adenoma acute Sep 2024 1:11pm [facility] Work Phone: 1(387) 248-795404-14-2025 Evaluation note* Diagnosis Onset Date Resolution Status Admit Date 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 acute July 08, 025 10:51am [facility] Work Phone: 1(344) 896-959604-14-2025 Evaluation note* Diagnosis Onset Date Resolution Status Admit Date 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 acute July 08, 025 10:51am Mixed hyperlipidemia acute August 29, 2024 9:26am Coronary artery calcification chroni c August 29, 2024 9:26am Essential hypertension chronic Ju ne 2024 9:26am [facility] Work Phone: 1(378) 450-176004-14-2025 Evaluation note* Diagnosis Onset Date Resolution Status Admit Date 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 acute July 08, 025 10:51am Lightheadedness acute August 29, 2024 9:26am Mixed hyperlipidemia acute August 29, 2024 9:26am Coronary artery calcification chroni c August 29, 2024 9:26am Essential hypertension chronic Ju ne 2024 9:26am [facility] Work Phone: 1(144) 475-502804-14-2025 Evaluation note* Diagnosis Onset Date Resolution Status Admit Date 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 acute July 08, 025 10:51am Lightheadedness acute August 29, 2024 9:26am Mixed hyperlipidemia acute August 29, 2024 9:26am Coronary artery calcification chroni c August 29, 2024 9:26am Essential hypertension chronic Ju ne 2024 9:26am Carotid artery disease acute Ju ly 2024 1:54[facility] Work Phone: 1(474) 504-104804-14-2025 Evaluation note* Diagnosis Onset Date Resolution Status [...] lung acute October 31, 2 025 12:40pm [facility] Work Phone: 1(297) 419-3680919419-42-6593 Radiology Diagnostic study note [facility] Imaging Services [address] [place] [address] Chest WITH Contrast MR#: [id number] Acct: [id number] Name: MARGAUX SANDERSON Rep #: [id number] : 1940 M 83 From: Robert Knowles MD PCP: Dr. Alexander Steiner MD Status: REG Nida SALVADOR Study:Chest WITH Contrast Date of Exam: 06/27/24 Exam# [id number] Ordering Dr: Alejandro Machado DO PROCEDURE: CHEST [...] of the right upper lobe. Reading Location: [facility] CC: Dr. Alejandro Machado DO; Dr. Alexander Steiner MD ~ Hide Grader: Signed [facility]03-04-2025 Radiology Diagnostic study note [facility] Imaging Services [address] [place] [id number] Chest PA and Lateral MR#: [id number] Acct: [id number] Name: MARGAUX SANDERSON Rep #: [id number] : 1940 M 83 From: Tamar Neal MD PCP: Dr. Alexander Steiner MD Status: APOLINAR SALVADOR Study:Chest PA and Lateral Date of Exam: 05/28/24 Exam# [id number] Ordering Dr: Alexander Steiner MD EXAM: XR Chest, 2 Views CLINICAL INDICATION: TECHNIQUE: Frontal and lateral views of the chest. COMPARISON: No relevant prior studies available. FINDINGS: LUNGS AND PLEURAL SPACES: Unremarkable. No consolidation. No pneumothorax. HEART: Unremarkable. No cardiomegaly. MEDIASTINUM: Unremarkable. Normal mediastinal contour. BONES/JOINTS: Unremarkable. No acute fracture. RAD/Chest PA and Lateral IMPRESSION: No acute cardiopulmonary process. Reading Location: [facility] CC: Dr. Alexander Steiner MD ~ Hide Grader: Signed [facility]11-25-2024 Evaluation note* Diagnosis Onset Date Resolution Status Admit Date Primary osteoarthritis, righ t shoulder acute February 18, 2 024 10:42am Right shoulder pain acute 2023 10:42am 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 acute February 29, 2024 11:13am [facility] Work Phone: 1(344) 723-671009-08-2023 Nurse Note* Jessie Shah RN - 12/02/2022 10:55 AM EDT Patient meets Interventional Radiology sedation discharge criteria and discharged per MD order to home. Patient taken by wheelchair by Oju, LOADER SEMICONDUCTOR DIES to awaiting car. All belongings gathered with patient. Family/friend to drive patient home and care for patient 6 hours post-procedure. * Felicitas Ritter RN - 12/02/2022 10:23 AM EDT CXR clear per Dr. Leroy. * France Roy RN - 12/02/2022 7:30 AM EDT Pt denies history chemo/radiation, seizure,stroke, or metal/implants. documented in this encounterOSChildren[facility]-08-[facility] Nurse Surgical operation note* Jessie Shah RN - 12/02/2022 10:55 AM EDT Patient meets Interventional Radiology sedation discharge criteria and discharged per MD order to home. Patient taken by wheelchair by Oju, LOADER SEMICONDUCTOR DIES to awaiting car. All belongings gathered with patient. Family/friend to drive patient home and care for patient 6 hours post-procedure. [facility]09-08-2023 Nurse Surgical operation note* Felicitas Ritter RN - 12/02/2022 10:23 AM EDT CXR clear per Dr. Leroy. [facility]09-08-2023 Nurse Note* Nursing Notes - Kleber Callahan RN - 12/02/2022 8:16 AM EDT Procedure completed with IR Attending MD Goodrich of CT guided R Lung biopsy. Samples obtained intra-procedure and sent to lab for analysis. Post procedure patient to travel to [facility] for post procedure monitoring. See post procedure orders for nursing care. [facility]09-08-2023 Miscellaneous Notes* Nursing Notes - Kleber Callahan RN - 12/02/2022 8:16 AM EDT Procedure completed with IR Attending MD Goodrich of CT guided R Lung biopsy. Samples obtained intra-procedure and sent to lab for analysis. Post procedure patient to travel to [facility] for post procedure monitoring. See [...] Patient assessed, see assessment. documented in this encounterOS[facility] History and physical note* JENNIFER Chavez [...] of breathing Neurological: No focal deficits Skin: [place], warm and dry Laboratory Data Results for [...] procedure. JENNIFER De 12/02/2022 6:44 AM [facility] Work Phone: 1(817) 414-540509-08-2023 History and physical note* JENNIFER Chavez - [...] of breathing Neurological: No focal deficits Skin: [place], warm and dry Laboratory Data Results for [...] 81mg daily. No hold indicated for procedure. Milrande Murray APRN-SCHOOL PSYCHOLOGICAL EXAMINER 12/02/2022 6:44 AM documented in this encounterElyria [facility] Hospital09-08-2023 Nurse Note* Nursing Notes - France Roy RN - 12/02/2022 7:30 AM EDT 0829: Patient arrives in [facility] Phase 2 Interventional Radiology from Interventional Radiology Procedure Suite with side rails up x2 with HOB >30 degrees, accompanied by IR Nurse. Patient placed onmonitors, VSS. Patient assessed, see assessment. [facility]09-08-2023 Nurse Surgical operation note* France Roy RN - 12/02/2022 7:30 AM EDT Pt denies history chemo/radiation, seizure,stroke, or metal/implants. [facility]09-08-2023 Procedure note* Reji Goodrich MD - 12/02/2022 7:30 AM EDTAssociated Order(s): GENERAL PROCEDURE BODY INTERVENTIONAL RADIOLOGY PROCEDURE NOTE PROCEDURE INDICATION: Right upper lobe enlarging lung nodule PROCEDURE PERFORMED: CT-guided lung biopsy FINDINGS/TARGET: Right upper raj lung nodule. Total of 6 passes taken. No pneumothorax on post imaging. Reji Goodrich MD 12/02/2022 9:11 AM AGENCY CASHIER(S): Reji Goodrich MD. CONSENT: Informed consent was obtained prior to the procedure after discussion of the risks, benefits, and alternatives of the procedure, and expected procedure outcomes were discussed with the patient and/orrepresentative. The consent document was placed in chart. DID THIS PROCEDURE REQUIRE A UNIVERSAL PROTOCOL?: Yes. [place] Protocol is required. Preprocedure verification is complete. [...] Interventional Radiology to participate in thispatient's care. [facility] Work Phone: 1(739) 931-607409-08-2023 Procedure note* Reji Goodrich MD - 12/02/2022 7:30 AM EDTAssociated Order(s): GENERAL PROCEDURE BODY INTERVENTIONAL RADIOLOGY PROCEDURE NOTE PROCEDURE INDICATION: Right upper lobe enlarging lung nodule PROCEDURE PERFORMED: CT-guided lung biopsy FINDINGS/TARGET: Right upper raj lung nodule. Total of 6 passes taken. No pneumothorax on post imaging. Reji Goodrich MD 12/02/2022 9:11 AM AGENCY CASHIER(S): Reji Goodrich MD. CONSENT: Informed consent was obtained prior to the procedure after discussion of the risks, benefits, and alternatives of the procedure, and expected procedure outcomes were discussed with the patient and/orrepresentative. The consent document was placed in chart. DID THIS PROCEDURE REQUIRE A UNIVERSAL PROTOCOL?: Yes. [place] Protocol is required. Preprocedure verification is complete. [...] participate in thispatient's care. documented in this [facility]09-08-2023 Hospital Discharge instructions* Discharge Instructions* Leonila Murray, DRIER FEEDER-SCHOOL PSYCHOLOGICAL EXAMINER - 12/02/2022 6:47 AM EDT Home Care [...] or on Weekends, please call the Hospital Telecommunication Lines Repairer at [phone] and ask them for the Interventional Coating Supervisor On-Call documented in this encounterElyria [facility]08-11-2023 History of Present illness Narrative* Dean Bedoya, JENNIFER - 11/04/2022 11:00 AM EDT PROGRESS NOTE Chief Complaint Patient presents with Follow-up Margaux Sanderson is a 82 y.o. male former smoker who is being followed for right upper lobe nodule. This was first found in 2011 and was noted to be 5.9 mm. He followed in surveillance with his local workers compensation claims examiner Dr. Jimenez and was referred to our [...] He followed in surveillance with his local workers compensation claims examiner Dr. Jimenez and was referred to our [...] and discussed with JENNIFER Eugene. JENNIFER Eugene #[id number] documented in this [facility] History of Present illness Narrative* JENNIFER Eugene - 11/10/2021 11:45 AM EDT PROGRESS NOTE Chief Complaint Patient presents with Follow-up CT complete. Margaux Sanderson is a 81 y.o. male former smoker who is being followed for right upper lobe nodule. This was first found in 2011 and was noted to be 5.9 mm. He followed in surveillance with his local workers compensation claims examiner Dr. Jimenez and was referred to our [...] He followed in surveillance with his local workers compensation claims examiner Dr. Jimenez and was referred to our [...] (SUVmax 8.8). The patient was evaluated at [facility] and surgery was recommended for the right [...] (SUVmax 8.8). The patient was evaluated at [facility] and surgery was recommended for the right [...] surveillance. Micah Trinh MD documented in this encounterOS[facility]08-[facility] History of Present illness Narrative* Micah Trinh MD - 11/11/2020 4:30 PM EDT PROGRESS NOTE Chief Complaint Patient presents with Follow-up CT complete; Mild SOB with activity, productive cough-clear thin sputum, Denies pain, Afebrile Other thyroid removed a week and a half ago; started amlodipine recently Mragaux Sanderson is a 80 y.o. male former [...] (SUVmax 8.8). The patient was evaluated at [facility] and surgery was recommended for the right [...] (SUVmax 8.8). The patient was evaluated at [facility] and surgery was recommended for the right [...] the past 3 years with his local workers compensation claims examiner, Dr. Micah Jimenez ([place]). A CT chest on 05/08/20 showed a [...] 1.5 weeks ago from a surgeon in [place], [place] and also recently started taking amlodipine. [...] wall lesions are identified. Additional Findings: None. Plastics Fabricator: Plastics Fabricator imaging reveals no abnormalities not already visible [...] the past 3 years with his local workers compensation claims examiner, Dr. Micah Jimenez ([place]). A CT chest on 05/08/20 showed a [...] plan. Chantel Ospina PA-C documented in this encounterElyria [facility]04-20-2021 NoteHNO ID: [id number] Author: Jose Daniel Danielle (Tech) Service: Nuclear Medicine Author Type: Hot Dip Galvanizer Type: Progress Notes Filed: 07/14/2020 7:00 AM [...] safety can be found using this link: [email or web address] SIGNATURE: Sally Banks PATIENT NAME: Margaux Sanderson DATE: July 14, 2020 TIME: 6:59 AM PAG[facility]CONTACT [facility]* Diagnosis Solitary lung nodule Solitary pulmonary nodule documented [facility] this encounter [facility]* Diagnosis Solitary lung nodule- Primary Solitary pulmonary nodule documented [facility]* Diagnosis Onset Date Resolution Status Bradycardia acute Mixed hyperlipidemia acute Coronary artery calcification chronic Essential hypertension chron ic [facility] Work Phone: Evaluation noteNo assessment information available [facility] Work Phone: Evaluation note* Diagnosis Lung nodule Solitary pulmonary nodule Former smoker Personal history of tobacco use, presenting hazards to health documented [facility] this encounter [facility]* Diagnosis Lung nodule- Primary Solitary pulmonary nodule documented [facility]* Diagnosis Onset Date Resolution Status Bradycardia acute Mixed hyperlipidemia acute Coronary artery calcification chronic Essential hypertension chron ic Osteoporosis acute Postoperative primary hypothyroidism acute Vitamin D deficiency acute [facility] Work Phone: Evaluation note* Diagnosis Onset Date Resolution Status Osteoporosis acute Postoperative primary hypothyroidism acute Vitamin D deficiency acute [facility] Work Phone: Evaluation note* Diagnosis Lung nodule- Primary Solitary pulmonary nodule documented in this encounter [facility]* Diagnosis Nodule of upper lobe of right lung documented in this encounter [facility]* Diagnosis Onset Date Resolution Status Primary adenocarcinoma of upper lobe of right lung acute Primary adenocarcinoma of upper lobe of right lung acute Primary adenocarcinoma of upper lobe of right lung acute [facility] Work Phone: Evaluation note* Diagnosis Onset Date Resolution Status Primary adenocarcinoma of upper lobe of right lung acute Primary adenocarcinoma of upper lobe of right lung acute [facility] Work Phone: Evaluation note* Diagnosis Unintentional weight loss- Primary Loss of weight Fecal occult blood test positive Nonspecific abnormal finding in stool contents History of Matute's esophagus Family history of colon cancer Family history of malignant neoplasm of gastrointestinal tract [facility] 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 Unintentional weight loss Loss of weight Family history of colon cancer Family history of malignant neoplasm of gastrointestinal tract [facility] 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- Primary Matute's esophagus Unintentional weight loss Loss of weight Fecal occult blood test positive Nonspecific abnormal finding in stool contents Family history of colon cancer Family history of malignant neoplasm of gastrointestinal tract History of Matute's esophagus [facility] 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 [address] [place] [address] OFFICE VISIT Date of Service: 01/10/25 MR#: [id number] Acct: [id number] Name: MARGAUX SANDERSON Rep #: [id number] : 1940 Provider: Dr. Luma Storm MD Age/Sex: 84/M Location: [facility] Status: Signed Intake Vital Signs 12/26/24 21:09 01/10/25 09:30 Height 5 ft 7 in Weight: 111 lb 4 oz Intake Visit Reasons: s/p hemicolectomy 12-26 Chief Complaint: s/p hemicolectomy 12/26 Is patient in pain?: No Allergies No Known Allergies Allergy (Verified 01/10/25 09:30) Medications ?Medication ?Instructions ?Recorded ?Confirmed ?Type aspirin 81 mg tablet,delayed 81 mg PO DAILY HEART HEAL TH 01/27/16 01/10/25 History release omeprazole 40 mg capsule,delayed 40 mg PO DINNER GERD 05/25/19 01/10/25 History release tamsulosin 0.4 mg capsule 0.4 mg PO .morning BPH 04/2001/10/25 History multivitamin 1 tab PO DAILY SUPPLEMENT 01/10/25 History levothyroxine 112 mcg tablet 112 mcg PO QDAY THYROID 0 11/28/23 01/10/25 History roflumilast 500 mcg tablet 500 mcg PO QDAY COPD 01/10/25 History (Daliresp) albuterol 90 mcg/actuation aerosol 90 mcg inhalation P RN PRN COPD 12/02/24 01/10/25 History inhaler ipratropium 0.5 mg-albuterol 3 mg 3 ml inhalation Q6H PRN shortness 12/11/24 01/10/25 History (2.5 mg base)/3 mL nebulization of breath or wheezing soln tramadol 50 mg tablet 50 mg PO Q4H PRN PRN Pain Sc ore 12/28/24 01/10/25 Rx 1-10 5 days #20 tabs atorvastatin 40 mg tablet 40 mg PO QHS CHOLESTEROL #30 tabs 01/07/25 01/10/25 Rx clopidogrel 75 mg tablet (Plavix) 75 mg PO DAILY #30 t abs 01/07/25 01/10/25 Rx Have you fallen in the past year?: No Subjective Details: 84-year-old male presents with his daughter status post 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 Patient has gained 2 pounds been eating little bit better and has been restarting the protein drinks does have occasional diarrhea but it is not all the time. 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 Zuleyma Storm MD) Low grade mucinous neoplasm of appendix Dark stools Loss of hearing Cancer Thyroid disease Bladder [...] of colon COPD (chronic obstructive pulmonary disease) Surgical History (Updated 01/05/25 @ 00:01 by Jonnie Morgan) S/P right colectomy Hx of colonoscopy Hx of right cataract extraction Hx of left cataract extraction History of thyroidectomy, total (~10/2020) Hx of lithotripsy History of needle biopsy (09/16/20) History of colonoscopy with polypectomy History of esophagogastroduodenoscopy History of arthroscopy of knee Family History Father Diabetes Hypertension CVA (cerebral vascular accident) Mother Thyroid disorder Arthritis Social History Smoking Status: Current every day [...] baby aspirin daily uses ibuprofen as needed Assessment and Plan (No Qualifiers) Assessment and Plan (1) S/P right colectomy: Status: Acute Comment: laparoscopic assisted-12/26/24 due to multiple tubulovillous polyps (2) Low grade mucinous neoplasm of appendix: Status: Acute Comment: s/p right hemicolectomy due to multiple polyps 12/26/24 Plan Let patient continue protein drinks and also we will refer to Dr. Skelton for a follow-up colonoscopy about 6 months from previous especially look at the site in the sigmoid that is about 25 cm had a 3.5 cm tubulovillous adenoma removed piecemeal and I was unable to go get back to that spot due to the anatomy. Zuleyma Storm M.D. Pager: [phone] [facility] [address] [place] [address], [facility], [address] [place] [address] Office: [phone] 01/10/25 1049 <Electronically signed by Zuleyma Paredes am, MD> Date _ Zuleyma Storm MD Cosigner Signature: Date (if applicable) CC: Dr. 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 Unintentional weight loss Family history of colon cancer Procedures XR ABDOMEN 1V SUPINE RADIOLOGIC EXAM ABDOMEN 1 VIEW Saurav Machuca MD [address] [place] [address] Phone: tel: fax: [place] [address] Referral ID Status Reason Start Date Expiration Date V isits Requested Visits Authorized [id number] Closed Auto-Generate d Referral 11/15/2024 12/15/2025 1 1 [facility] for visit Narrative* Outpatient Procedure (Routine) - Closed Specialty Diagnoses / Procedures Referred By Bonnie chowdary Referred To Contact [facility] Diagnoses Unintentional weight loss Fecal occult blood test positive History of Matute's esophagus Procedures EGD DIAGNOSTIC ESOPHAGOGASTRODUODENOSC OPY TRANSORAL DIAGNOSTIC Valerie Gaitan APRN.SHINE [address] [place] [address] Phone: tel: fax: Saurav Machuca MD [address] [place] [address] Phone: tel: fax: Referral ID Status Reason Start Date Expiration Date V isits Requested Visits Authorized [id number] Closed Auto-Generate d Referral 11/15/2024 01/15/2025 1 1 [facility] Summary Purpose Family History No Family History [...] No October 20, 2020 10:04am Power of Drill Rig Operator Helper No October 20 10:04am Latest Code Status on File Code Status Date Activated Date Inactivated Comments Full Code 12/02/2022 7:44 AM Latest Code Status on File Code Status Date Activated Date Inactivated Comments Full Code 12/02/2022 7:44 AM Advance Directive Response Recorded Date/ Time Advance Directives No February 01, 2016 11:13am Living Will No October 20, 2020 9:04am Power of Drill Rig Operator Helper No October 20 9:04am Advance Directive Response Recorded Date/ Time Living Will No October 20, 2020 10:04am Power of Drill Rig Operator Helper No October 20 10:04am Advance Directives No February 01, 2016 12:13pm Advance Directive Response Recorded Date/ Time Advance Directives No February 01, 2016 12:13pm Advance Directive Response Recorded Date/ Time Advance Directives No November 10:30am Advance Directive Response Recorded Date/ Time Advance Directives No November 10:30am Do you have a Healthcare Power of Drill Rig Operator Helper? Yes December 06, 2024 9:19am Advance Directive Response Recorded Date/ Time Advance Directives No November 10:30am Do you have a Healthcare Power of Drill Rig Operator Helper? Yes December 26, 2024 1:26pm Do you have a Healthcare Power of Drill Rig Operator Helper? Yes December 06, 2024 9:19am Reason for Referral Specialty Diagnoses / Procedures Referred By Contac t Referred To Contact Diagnoses Solitary lung nodule Procedures CT CHEST WITH CONTRAST CHG DIAGNOSTIC COMPUTED TOMOGRAPHY THORAX W/CONTRAST Ingrid Lebron PA-C [address] [place] [address] Referral ID Status Reason Start Date Expiration Date Visits Re quested Visits Authorized [id number] Closed 09/09/2020 10/04/2021 1 1 Specialty Diagnoses / Procedures Referred By Contac t Referred To Contact Diagnoses Solitary lung nodule Procedures CT CHEST WITHOUT CONTRAST CHG DIAGNOSTIC COMPUTED TOMOGRAPHY THORAX W/O CNTRST Chantel Opsina PA-C [address] [place] [address] Referral ID Status Reason Start Date Expiration Date V isits Requested Visits Authorized [id number] New Request 11/11/2020 12/06/2021 1 1 Specialty Diagnoses / Procedures Referred By Contac t Referred To Contact Diagnoses Lung nodule Former smoker Procedures CT CHEST WITHOUT CONTRAST CHG DIAGNOSTIC COMPUTED TOMOGRAPHY THORAX W/O CNTRST Delia Mccauley, DRIER FEEDER-SCHOOL PSYCHOLOGICAL EXAMINER [address] [place] [address] Referral ID Status Reason Start Date Expiration Date Visits Re quested Visits Authorized [id number] Closed 05/12/2021 06/06/2022 1 1 Specialty Diagnoses / Procedures Referred By Contac t Referred To Contact Diagnoses Lung nodule Procedures CT CHEST WITHOUT CONTRAST CHG DIAGNOSTIC COMPUTED TOMOGRAPHY THORAX W/O CNTRST Dean Bedoya, DRIER FEEDER-SCHOOL PSYCHOLOGICAL EXAMINER [address] [place] [address] Referral ID Status Reason Start Date Expiration Date V isits Requested Visits Authorized [id number] New Request 11/10/2021 12/05/2022 1 1 Specialty Diagnoses / Procedures Referred By Bonnie chowdary Referred To Contact Diagnoses Nodule of upper lobe of right lung Procedures CT LUNG/MEDIASTINUM BIOPSY MA CORE NEEDLE BX LUNG/MEDIASTINUM PERQ W/IMG MA CT GUIDANCE NEEDLE PLACEMENT Dean Bedoya, DRIER FEEDER-SCHOOL PSYCHOLOGICAL EXAMINER [address] [place] [address] Referral ID Status Reason Start Date Expiration Date V isits Requested Visits Authorized [id number] New Request 11/11/2022 12/06/2023 1 1 Chief [...] occlusion and stenosis Ju ly 2024 1:54pm Reason for Visit Admit Date [...] 2024 1:11pm Tubulovillous adenoma December 04 1:11pm Chief Complaint Admit Date OVERDUE FU August 29, 2024 9:26a m [...] 8:55am 2ND OPINION December 04, 2024 1:11pm Chief Complaint Admit Date CAROTID ARTERY STENOSIS September 11, 2024 6:25am [...] 8:55am 2ND OPINION December 04, 2024 1:11pm Laparoscopic, Lap poss open right Zoe C olectomy December 26, 2024 7:12am Laparoscopic, Lap poss open right Zoe C olectomy December 26, 2024 5:36pm Laparoscopic, Lap poss open right Zoe C olectomy December 27, 2024 7:55am Laparoscopic, Lap poss open right Zoe C olectomy December 27, 2024 11:58am Reason for Visit Admit Date Carotid artery disease 2024 1: 54pm Primary adenocarcinoma of upper lobe of right lung October 31, 2024 12:40pm Anemia December 04, 2024 1:11pm Multiple polyps of sigmoid colon Septemb 2024 1:11pm Tubulovillous adenoma December 04 1:11pm Multiple polyps of sigmoid colon December 27, 2024 11:58am S/P right colectomy December 27, 2024 11 :58am Tubulovillous adenoma December 27, 2024 11:58am Chief Complaint Admit Date Carotid Artery occlusion and stenosis Ju ly 2024 1:54pm WEIGHT LOSS October 02, 2024 1:24p m Reclast October 21, 2024 9:48 am Malignant neoplasm of upper lobe, right bronchus o October 29, 2024 1:20pm 4 MONTH LUNG, REVIEW CT October 31, 2024 12:40pm 2 UNITS PRBC December 02, 2024 8:55am 2ND OPINION December 04, 2024 1:11pm Laparoscopic, Lap poss open right Zoe C olectomy December 26, 2024 7:12am POSTOP PSS AFIB DURING SURGERY December 262024 10:26am Laparoscopic, Lap poss open right Zoe C olectomy December 26, 2024 5:36pm Laparoscopic, Lap poss open right Zoe C olectomy December 27, 2024 7:55am Laparoscopic, Lap poss open right Zoe C olectomy December 27, 2024 11:58am Laparoscopic, Lap poss open right Zoe C olectomy December 28, 2024 10:49am EORDERS December 31, 2024 11 :03am s/p hemicolectomy 12-26January 03 2:06pm s/p hemicolectomy 12-26January 10 9:22am paroxysmal atrial fibrillation December 262024 11:58am Reason for Visit Admit Date Carotid artery disease 2024 1: 54pm Primary adenocarcinoma of upper lobe of right lung October 31, 2024 12:40pm Anemia December 04, 2024 1:11pm Tubulovillous adenoma December 04 1:11pm Multiple polyps of sigmoid colon Septemb 2024 1:11pm S/P right colectomy December 27, 2024 11 :58am Tubulovillous adenoma December 27, 2024 11:58am Multiple polyps of sigmoid colon December 27, 2024 11:58am S/P right colectomy January 03, 2025 2 :06pm Low grade mucinous neoplasm of appendix January 10, 2025 9:22am S/P right colectomy January 10, 2025 9 :22am Additional Source Comments (unrecognized sect ion and content) No Status Records FoundNo Status Records FoundNo Status Records FoundNo Status Records Found INFORMATION SOURCE (unrecogn ized section and content) DATE CREATED AUTHOR 09/04/2020 [facility] DATE CREATED AUTHOR AUTHOR'S ORGANIZ ATION 11/16/2022 [facility] DATE CREATED AUTHOR AUTHOR'S ORGANIZ ATION 12/05/2024 [facility] DATE CREATED AUTHOR AUTHOR'S ORGANIZ ATION 01/28/2025 [facility] Reason for Visit (unrecogniz ed section and content) Specialty Diagnoses / Procedures Referred By Bonnie chowdary Referred To Contact Diagnoses Solitary lung nodule Procedures CT CHEST WITH CONTRAST CHG DIAGNOSTIC COMPUTED TOMOGRAPHY THORAX W/CONTRAST Ingrid Lebron PA-C [address] [place] [address] Referral ID Status Reason Start Date Expiration Date Visits Re quested Visits Authorized [id number] Closed 09/09/2020 10/04/2021 1 1 Reason Comments [...] COMPUTED TOMOGRAPHY THORAX W/O CNTRST Delia Mccauley, DRIER FEEDER-SCHOOL PSYCHOLOGICAL EXAMINER [address] [place] [address] Referral ID Status Reason Start Date Expiration Date Visits Re quested Visits Authorized [id number] Closed 05/12/2021 06/06/2022 1 1 Reason Comments Follow-up CT complete. Reason Comments Follow-up Specialty Diagnoses / Procedures Referred By Bonnie chowdary Referred To Contact Diagnoses Nodule of upper lobe of right lung Procedures CT LUNG/MEDIASTINUM BIOPSY MA CORE NEEDLE BX LUNG/MEDIASTINUM PERQ W/IMG MA CT GUIDANCE NEEDLE PLACEMENT Dean Bedoya, DRIER FEEDER-SCHOOL PSYCHOLOGICAL EXAMINER [address] [place] [address] Referral ID Status Reason Start Date Expiration Date V isits Requested Visits Authorized [id number] New Request 11/11/2022 12/06/2023 1 1 Reason Comments Consult EGD & Colonoscopy Reason Comments Orders Reason Comments Follow Up Reason Comments Patient Question Care Teams (unrecognized sec tion and content) Churn Tender Relationship Specialty Start Date End Date Jatin, Alexander-Chi, MD [address] [facility] [address] [place], [place] [address] PCP - General Internal Medicine 09/09/20 Micah Forrest MD [address] [facility] [address] [place] [address] Exercise Equipment Repair Technician Pulmonary Disease 11/11/20 Churn Tender Relationship Specialty Start Date End Date Denzel Steiner MD [address] [facility] [address] [place] [address] PCP - General Internal Medicine 09/09/20 Micah Forrest MD [address] [facility] [address] [place] [address] Exercise Equipment Repair Technician Pulmonary Disease 11/11/20 Churn Tender Relationship Specialty Start Date End Date Denzel Steiner MD [address] [facility] [address] [place] [address] PCP - General Internal Medicine 09/09/20 Micah Forrest MD [address] [facility] [address] [place] [address] Exercise Equipment Repair Technician Pulmonary Disease 11/11/20 Churn Tender Relationship Specialty Start Date End Date Denzel Steiner MD [address] [facility] [address] [place] [address] PCP - General Internal Medicine 09/09/20 Micah Forrest MD [address] [facility] [address] [place], [place] [phone] Exercise Equipment Repair Technician Pulmonary Disease 11/11/20 Team Status: Active Member [...] MD Primary Care Provider, Attending Provider Active Churn Tender Relationship Specialty Start Date End Date Denzel Steiner MD [address] [facility] [address] [place], [place] [id number] PCP - General Internal Medicine 09/09/20 Micah Forrest MD [address] [facility] [address] [place], [place] [address] Exercise Equipment Repair Technician Pulmonary Disease 11/11/20 Churn Tender Relationship Specialty Start Date End Date Denzel Steiner MD [address] [facility] [address] [place], [place] [id number] PCP - General Internal Medicine 09/09/20 Micah Forrest MD [address] [facility] [address] [place], [place] [id number] Exercise Equipment Repair Technician Pulmonary Disease 11/11/20 Churn Tender Relationship Specialty Start Date End Date Denzel Steiner MD [address] [facility] [address] [place], [place] [id number] PCP - General Internal Medicine 09/09/20 Micah Forrest MD [address] [address] Exercise Equipment Repair Technician Pulmonary Disease 11/11/20 Team Status: Inactive Member [...] 2024 End: August 29, 2024 Laura Condon BUSINESS ANALYSIS PROFESSIONAL, BUSINESS ANALYSIS PROFESSIONAL-C Attending Provider Active Start: August 29, 2024 [...] End: August 29, 2024 Laura Condon NP, BUSINESS ANALYSIS PROFESSIONAL-C Attending Provider Active Start: August 29, 2024 [...] 2024 End: August 29, 2024 Laura Condon BUSINESS ANALYSIS PROFESSIONAL, BUSINESS ANALYSIS PROFESSIONAL-C Attending Provider Active Start: August 29, 2024 [...] September 19, 2024 End: September 19, 2024 Churn Tender Relationship Specialty Start Date End Date Florentin Hernandez MD PCP - General Family Medicine 10/25/11 [address] [place] [address] Referring Internal Medicine 05/14/20 Team Status: Inactive Member Role/Relationship Status Dates Dr. Alexander Steiner MD Primary Care Provider Active Start: October 02, 2024 End: October 02, 2024 Dr. Alexander Steiner MD Attending Provider Active Start: October 02, 2024 End: October 02, 2024 Dr. Alexander Steiner MD Referring Provider Active Start: October 02, 2024 End: October 02, 2024 Churn Tender Relationship Specialty Start Date End Date Florentin Hernanedz MD PCP - General Family Medicine 10/25/11 Micah Jimenez [address] [place] [address] Referring Internal Medicine 05/14/20 Team Status: Inactive [...] End: August 29, 2024 Laura Condon NP, BUSINESS ANALYSIS PROFESSIONAL-C Attending Provider Active Start: August 29, 2024 [...] October 29, 2024 End: October 29, 2024 Churn Tender Relationship Specialty Start Date End Date Alexander Steiner Ju[address] [place], [place] [address] PCP - General Gerontology 10/25/24 Micah Jimenez V [address] [place] [phone] Referring Internal Medicine 05/14/20 Churn Tender Relationship Specialty Start Date End Date Alexander Steiner Chi [address] [place], [place] [id number] PCP - General Gerontology 10/25/24 Micah Jimenez [address] [place] [phone] Referring Internal Medicine 05/14/20 Churn Tender Relationship Specialty Start Date End Date Alexander Steiner Chi [address] [place], [place] [phone] PCP - General Gerontology 10/25/24 Micah Jimenez [address] [place] [phone] Referring Internal Medicine 05/14/20 Churn Tender Relationship Specialty Start Date End Date Alexander Steiner Chi [address] [place], [place] [address] PCP - General Gerontology 10/25/24 Micah Jimenez [address] [place] [address] Referring Internal Medicine 05/14/20 Team Status: Inactive [...] 2024 End: August 29, 2024 Laura Condon BUSINESS ANALYSIS PROFESSIONAL, BUSINESS ANALYSIS PROFESSIONAL-C Attending Provider Active Start: August 29, 2024 [...] Provider Active Start: 2024 End: 2024 CHRISTY iRos Attending Provider Active Star t: 2024 End: [...] Inactive Member Role/Relationship Status Dates Dr. Alexander Stenier MD Primary Care Provider Active Start: October [...] 2024 End: August 29, 2024 Laura Condon BUSINESS ANALYSIS PROFESSIONAL, BUSINESS ANALYSIS PROFESSIONAL-C Attending physician Active Start: August 29, 2024 [...] December 03, 2024 End: December 03, 2024 Team Status: Inactive Member Role/Relationship Status Dates Dr. Alexander Steiner MD Primary care physician Active Start: August 29, 2024 End: August 29, 2024 Dr. Alexander Steiner MD Referring Provider Active Start: August 29, 2024 End: August 29, 2024 Laura Condon BUSINESS ANALYSIS PROFESSIONAL, BUSINESS ANALYSIS PROFESSIONAL-C Attending physician Active Start: August 29, 2024 [...] 2024 End: December 02, 2024 Team Status: Inactive Member Role/Relationship Status Dates Dr. Alexander Steiner MD Primary care physician Active Start: December 03, 2024 End: December 03, 2024 Dr. Alexander Steiner MD Attending physician Active Start: December 03, 2024 End: December 03, 2024 Dr. Alexander Steiner MD Referring Provider Active Start: December 03, 2024 End: December 03, 2024 Team Status: Inactive Member [...] care physician Active Start: December 09, 2024 End: December 09, 2024 Dr. Alexander Steiner MD Attending physician Active Start: December 09, 2024 End: December 09, 2024 Dr. Alexander Steiner MD Referring Provider Active Start: December 09, 2024 End: December 09, 2024 Team Status: Inactive Member [...] 2024 End: December 02, 2024 Team Status: Inactive Member Role/Relationship Status Dates Dr. Alexander Steiner MD Primary care physician Active Start: December 03, 2024 End: December 03, 2024 Dr. Alexander Steiner MD Attending physician Active Start: December 03, 2024 End: December 03, 2024 Dr. Alexander Steiner MD Referring Provider Active Start: December 03, 2024 End: December 03, 2024 Team Status: Inactive Member [...] care physician Active Start: December 09, 2024 End: December 09, 2024 Dr. Alexander Steiner MD Attending physician Active Start: December 09, 2024 End: December 09, 2024 Dr. Alexander Steiner MD Referring Provider Active Start: December 09, 2024 End: December 09, 2024 Team Status: Inactive Member [...] Active Start: December 11, 2024 Team Status: Active Member Role/Relationship Status Dates Dr. Alexander Steiner MD Primary care physician Active Start: December 26, 2024 Dr. Zuleyma Storm MD Admitting physician Active Start: December 26, 2024 Dr. Zuleyma Storm MD Attending physician Active Start: December 26, 2024 Dr. Zuleyma Storm MD Referring Provider Active Start: December 26, 2024 Dr. Zuleyma Storm MD Nurse Practitioner Active Start: December 26, 2024 Dr. Didier Rodríguez MD Nurse Practitioner Active Start: December 26, 2024 Team Status: Active Member Role/Relationship Status Dates Dr. Alexander Steiner MD Primary care physician Active Start: December 26, 2024 Dr. Zuleyma Storm MD Admitting physician Active Start: December 26, 2024 Dr. Zuleyma Storm MD Referring Provider Active Start: December 26, 2024 Dr. Zuleyma Storm MD Nurse Practitioner Active Start: December 26, 2024 Dr. Didier Rodríguez MD Nurse Practitioner Active Start: December 26, 2024 Dr. Caitlin Fisher MD Attending physician Active Start: December 26, 2024 Dr. Caitlin Fisher MD Nurse Practitioner Active Start: December 26, 2024 Team Status: Active Member Role/Relationship Status Dates Dr. Alexander Steiner MD Primary care physician Active Start: December 27, 2024 Dr. Zuleyma Storm MD Admitting physician Active Start: December 27, 2024 Dr. Zuleyma Storm MD Attending physician Active Start: December 27, 2024 Dr. Zuleyma Storm MD Referring Provider Active Start: December 27, 2024 Dr. Zuleyma Storm MD Nurse Practitioner Active Start: December 27, 2024 Dr. Didier Rodríguez MD Nurse Practitioner Active Start: December 27, 2024 Dr. Caitlin Fisher MD Nurse Practitioner Active Start: December 27, 2024 Team Status: Active Member Role/Relationship Status Dates Dr. Alexander Steiner MD Primary care physician Active Start: December 27, 2024 Dr. Miriam Brooks MD Attending physician Acti ve Start: December 27, 2024 Team Status: Inactive Member Role/Relationship Status Dates Dr. Alexander Steiner MD Primary care physician Active Start: December 27, 2024 End: December 28, 2024 Dr. Zuleyma Storm MD Admitting physician Active Start: December 27, 2024 End: December 28, 2024 Dr. Zuleyma Storm MD Attending physician Active Start: December 27, 2024 End: December 28, 2024 Dr. Zuleyma Storm MD Referring Provider Active Start: December 27, 2024 End: December 28, 2024 Dr. Didier Rodríguez MD Nurse Practitioner Active Start: December 27, 2024 End: December 28, 2024 Dr. Caitlin Fisher MD Nurse Practitioner Active Start: December 27, 2024 End: December 28, 2024 Dr. Caitlin Fisher MD Nurse Practitioner Active Start: December 27, 2024 Team Status: Inactive Member Role/Relationship [...] 2024 End: December 02, 2024 Team Status: Inactive Member Role/Relationship Status Dates Dr. Alexander Steiner MD Primary care physician Active Start: December 03, 2024 End: December 03, 2024 Dr. Alexander Steiner MD Attending physician Active Start: December 03, 2024 End: December 03, 2024 Dr. Alexander Steiner MD Referring Provider Active Start: December 03, 2024 End: December 03, 2024 Team Status: Inactive Member [...] care physician Active Start: December 09, 2024 End: December 09, 2024 Dr. Alexander Steiner MD Attending physician Active Start: December 09, 2024 End: December 09, 2024 Dr. Alexander Steiner MD Referring Provider Active Start: December 09, 2024 End: December 09, 2024 Team Status: Inactive Member [...] Active Start: December 11, 2024 Team Status: Active Member Role/Relationship Status Dates Dr. Alexander Steiner MD Primary care physician Active Start: December 26, 2024 Dr. Zuleyma Storm MD Admitting physician Active Start: December 26, 2024 Dr. Zuleyma Storm MD Attending physician Active Start: December 26, 2024 Dr. Zuleyma Storm MD Referring Provider Active Start: December 26, 2024 Dr. Zuleyma Storm MD Nurse Practitioner Active Start: December 26, 2024 Dr. Didier Rodríguez MD Nurse Practitioner Active Start: December 26, 2024 Team Status: Active Member Role/Relationship Status Dates Dr. Alexander Steiner MD Primary care physician Active Start: December 26, 2024 Dr. Miriam Brooks MD Attending physician Acti ve Start: December 26, 2024 Dr. Zuleyma Storm MD Referring Provider Active Start: December 26, 2024 Team Status: Active Member Role/Relationship Status Dates Dr. Alexander Steiner MD Primary care physician Active Start: December 26, 2024 Dr. Zuleyma Storm MD Admitting physician Active Start: December 26, 2024 Dr. Zuleyma Storm MD Referring Provider Active Start: December 26, 2024 Dr. Zuleyma Storm MD Nurse Practitioner Active Start: December 26, 2024 Dr. Didier Rodríguez MD Nurse Practitioner Active Start: December 26, 2024 Dr. Caitlin Fisher MD Attending physician Active Start: December 26, 2024 Dr. Caitlin Fisher MD Nurse Practitioner Active Start: December 26, 2024 Team Status: Active Member Role/Relationship Status Dates Dr. Alexander Steiner MD Primary care physician Active Start: December 27, 2024 Dr. Zuleyma Storm MD Admitting physician Active Start: December 27, 2024 Dr. Zuleyma Storm MD Attending physician Active Start: December 27, 2024 Dr. Zuleyma Storm MD Referring Provider Active Start: December 27, 2024 Dr. Zuleyma Storm MD Nurse Practitioner Active Start: December 27, 2024 Dr. Didier Rodríguez MD Nurse Practitioner Active Start: December 27, 2024 Dr. Caitlin Fisher MD Nurse Practitioner Active Start: December 27, 2024 Team Status: Active Member Role/Relationship Status Dates Dr. Alexander Steiner MD Primary care physician Active Start: December 27, 2024 Dr. Miriam Brooks MD Attending physician Acti ve Start: December 27, 2024 Team Status: Inactive Member Role/Relationship Status Dates Dr. Alexander Steiner MD Primary care physician Active Start: December 27, 2024 End: December 28, 2024 Dr. Zuleyma Storm MD Admitting physician Active Start: December 27, 2024 End: December 28, 2024 Dr. Zuleyma Storm MD Attending physician Active Start: December 27, 2024 End: December 28, 2024 Dr. Zuleyma Storm MD Referring Provider Active Start: December 27, 2024 End: December 28, 2024 Dr. Didier Rodríguez MD Nurse Practitioner Active Start: December 27, 2024 End: December 28, 2024 Dr. Caitlin Fisher MD Nurse Practitioner Active Start: December 27, 2024 End: December 28, 2024 Team Status: Active Member Role/Relationship Status Dates Dr. Alexander Steiner MD Primary care physician Active Start: December 28, 2024 Dr. Zuleyma Storm MD Admitting physician Active Start: December 28, 2024 Dr. Zuleyma Storm MD Nurse Practitioner Active Start: December 28, 2024 Dr. Didier Rodríguez MD Nurse Practitioner Active Start: December 28, 2024 Dr. Caitlin Fisher MD Attending physician Active Start: December 28, 2024 Dr. Caitlin Fisher MD Nurse Practitioner Active Start: December 28, 2024 Team Status: Inactive Member Role/Relationship Status Dates Dr. Alexander Steiner MD Primary care physician Active Start: December 31, 2024 End: December 31, 2024 Dr. Zuleyma Storm MD Attending physician Active Start: December 31, 2024 End: December 31, 2024 Dr. Zuleyma Storm MD Referring Provider Active Start: December 31, 2024 End: December 31, 2024 Team Status: Inactive Member Role/Relationship Status Dates Dr. Alexander Setiner MD Primary care physician Active Start: January 03, 2025 End: January 03, 2025 Dr. Alexander Steiner MD Referring Provider Active Start: January 03, 2025 End: January 03, 2025 Dr. Zuleyma Storm MD Attending physician Active Start: January 03, 2025 End: January 03, 2025 Team Status: Inactive Member Role/Relationship Status Dates Dr. Alexander Steiner MD Primary care physician Active Start: January 06, 2025 End: January 06, 2025 Dr. Alexander Steiner MD Attending physician Active Start: January 06, 2025 End: January 06, 2025 Team Status: Inactive Member Role/Relationship Status Dates Dr. Alexander Steiner MD Primary care physician Active Start: January 10, 2025 End: January 10, 2025 Dr. Alexander Steiner MD Referring Provider Active Start: January 10, 2025 End: January 10, 2025 Dr. Zuleyma Storm MD Attending physician Active Start: January 10, 2025 End: January 10, 2025 Team Status: Active Member Role/Relationship Status Dates Dr. Alexander Steiner MD Primary care physician Active Start: January 15, 2025 Dr. Alexander Steiner MD Attending physician Active Start: January 15, 2025 Team Status: Active Member Role/Relationship Status Dates Dr. Alexander Steiner MD Primary care physician Active Start: January 17, 2025 CHRISTY Beth Attending physician Active S tart: January 17, 2025 CHRISTY Beth Referring Provider Active St art: January 17, 2025 Team Status: Inactive Member Role/Relationship Status Dates Dr. Alexander Steiner MD Primary care physician Active Start: January 15, 2025 End: January 15, 2025 Dr. Alexander Steiner MD Attending physician Active Start: January 15, 2025 End: January 15, 2025 Goals (unrecognized section and content) Goals may [...] or prosecute any alcohol or drug abuse patient.[facility] the event this information is protected by the Federal Confidentiality of Alcohol and Drug Abuse Patient Records regulations: The Federal rules restrict any use of the information to criminally investigate or prosecute any alcohol or drug abuse patient.[facility] the event this information is protected by the Federal Confidentiality of Alcohol and Drug Abuse Patient Records regulations: The Federal rules restrict any use of the information to criminally investigate or prosecute any alcohol or drug abuse patient.[facility] the event this information is protected by the Federal Confidentiality of Alcohol and Drug Abuse Patient Records regulations: The Federal rules restrict any use of the information to criminally investigate or prosecute any alcohol or drug abuse patient.[facility] the event this information is protected by the Federal Confidentiality of Alcohol and Drug Abuse Patient Records regulations: The Federal rules restrict any use of the information to criminally investigate or prosecute any alcohol or drug abuse patient.[facility] the event this information is protected by the Federal Confidentiality of Alcohol and Drug Abuse Patient Records regulations: The Federal rules restrict any use of the information to criminally investigate or prosecute any alcohol or drug abuse patient.[facility] the event this information is protected by the Federal Confidentiality of Alcohol and Drug Abuse Patient Records regulations: The Federal rules restrict any use of the information to criminally investigate or prosecute any alcohol or drug abuse patient.[facility] FOR RECORDS PERTAINING TO PATIENTS WHO ARE [...] BE BASED ON THE PRIMARY CLINICAL RECORDS. [facility]. provides no warranty or guarantee of the accuracy or completeness of information in this document.
[2025-03-19 08:34] VITALS: BP 177/88; PULSE 87; RESP 16; TEMP 36.1; O2SAT 98
[2025-03-19 09:15] VITALS: BP 151/70; PULSE 80; RESP 16; TEMP 36.1
[2025-03-19 10:15] VITALS: BP 155/71; PULSE 68; RESP 16; TEMP 36.1
[2025-03-19 10:58] VITALS: BP 163/81; PULSE 66; RESP 16; TEMP 36.1
[2025-03-19 11:58] VITALS: BP 170/83; PULSE 92; RESP 16; TEMP 36.2
== END 2025-03-19 23:59 | disposition home or self-care (01) ==
PROVIDERS: PCP Family Medicine Geriatric Medicine; Referring Provider Family Medicine Geriatric Medicine; Visit Provider Family Medicine Geriatric Medicine
DX: D64.9 Anemia, unspecified (principal)
CPT/HCPCS: 36430; 82274; 86850; 86870; 86880; 86900; 86901; 86902; 86905; 86920; 86922; P9016; A4216

== ENCOUNTER → 2025-03-21 | Outpatient (CLI) | payer MEDICARE, SELFPAY ==
[2025-03-21 11:15] LABS: Hematocrit 36.6 % (40-54); Hemoglobin 11.1 g/dL (13.0-16.5)
--- OUTSIDE RECORDS SUMMARY | 2025-03-21 11:22 | XMS RPT_ITS | CCD ---
Author Organization [facility] Care Team Providers Care Management Manager Name Role Phone Jatin CHEN, Denzel Primary Care Provider [phone] Tony Auguste MD, Micah Unavailable [phone] Jatin, Dr. Alexander Sanford Primary Care Provider Jatin, Dr. Alexander Sanford Referring Provider Taurus MCGRATH, RONNIE Sanchez Attending Provider Jatin, Dr. Alexander Sanford Primary Care Provider Jatin, Dr. Alexander Sanford Referring Provider Dr. Chemo Chacon Attending Provider Dr. Marcelino Nolen Attending Provider Jatin, Dr. Alexander Sanford Primary Care Provider [phone] Jatin, Dr. Alexander Sanford Referring Provider Jatin , Denzel Primary Care Provider Tony Auguste MD, Micah Unavailable [phone] JATIN, DENZEL Primary Care Unavailable DEAN BEDOYA Attending Unavailable DEAN BEDOYA Referring Unavailable JATIN, DENZEL Referring Unavailable DEAN BEDOYA Attending Unavailable JATIN, DENZEL Primary Care Unavailable Jatin, Dr. Alexander Sanford Primary Care Provider [phone] Jatin, Dr. Alexander Sanford Referring Provider Dr. Alejandro Machado Attending Provider [phone] Dr. Alejandro Machado Referring Provider Jatin, Dr. Alexander Sanford Primary Care Provider Dr. Alejandro Machado Attending Provider Jatin, Dr. Alexander Sanford Referring Provider Jatin, Dr. Alexander Sanford Primary Care Provider Jatin, Dr. Alexander Sanford Referring Provider Carter, Dr. Allen Attending Provider Gregory Rodriguez MD Attending Provider [place] DO, Dr. Allen Attending Provider [place] DO, Dr. Allen Referring Provider Jatin CHEN, Dr. Alexander Sanford Primary Care Provider Jatin CHEN, Dr. Alexander Sanford Attending Provider Tony CHEN, Dr. Micah Auguste Attending Provider Tony CHEN, Dr. Micah Auguste Referring Provider Jatin CHEN, Dr. Alexander Sanford Referring Provider Jatin CHEN, Dr. Alexander Sanford Primary Care Provider Carter AGUILAR, Dr. Allen Attending Provider [place] DO, Dr. Allen Referring Provider Jatin CHEN, Dr. Alexander Sanford Primary Care Provider [phone] Jatin CHEN, Dr. Alexander Sanford Attending Provider Dr. Sánchez Pena MD Attending Provider Laura Araujo Attending Provider Jatin CHEN, Dr. Alexander Sanford Primary Care Provider [phone] Renetta CHEN, Dr. Deni Hickey Attending Provider [...] Dr. Alexander Sanford Primary Care Provider [phone] Carter AGUILAR, Dr. Allen Attending Provider Carter AGUILAR, Dr. Allen Referring Provider Jatin, Alexander Sanford Primary Care Provider [phone] Jatin CHEN, Dr. Alexander Sanford Primary Care [...] CHEN, Dr. Caitlin Morel Attending Physician [phone] Natalia CHEN, Dr. Caitlin Morel Nurse Practitioner Todd CHEN, Dr. Pineda Attending Physician Jatin CHEN, Dr. Alexander Sanford Primary Care Physician [phone] Jatin CHEN, Dr. Alexander Sanford Referring Provider [...] by mouth at dinner Start: 08-22-2012 Omeprazole ([place] ILOSEC) 40 mg capsule Take 1 capsule by mouth 1-2 times daily. 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 Normal [facility] Comment on above: Performed By: #### L 400.0001, M100.2200 ####[facility] [id number] [place], [place], [id number] Bilirubin Test strip Ql (U)O rdered By: Alexander Steiner on 01-15-2025 Bilirubin Ql (U) Negative Negative [facility] Ketones Test strip Ql (U)Ord ered By: Alexander Steiner on 01-15-2025 Ketones Ql (U) Negative Negative [facility] Microscopic analysis of urin e for red blood cells (RBC)Ordered By: Alexander Steiner on 01-15-2025 Microscopic analysis of urine for red blood cells (RBC) 0 SEEN /hpf 0-5 [facility] Mucus LM Ql (Urine sed)Order ed By: Alexander Steiner on 01-15-2025 Mucus Ql (Urine sed) RARE /hpf [facility] Nitrite Test strip Ql (U)Ord ered By: Alexander Steiner on 01-15-2025 Nitrite Ql (U) Negative Negative [facility] Protein Test strip Ql (U)Ord ered By: Alexander Steiner on 01-15-2025 Protein Ql (U) 15 mg/dl High Negative [facility] Squamous epithelial cells de tection in urine sediment by light microscopyOrdered By: Alexander Steiner on 01-15-2025 Epithelial cells.squamous LM Ql (Urine sed) 0-5 SEEN /hpf 0-5 [facility] Urinalysis, Completeon 01-15 BACTERIA 1+ /hpf Normal None Seen [facility] Comment on above: Order Comment: Urine , Random Performed By: #### L 400.0001, ####[facility] [address] [place], [address] EPI,SQUAMOUS 0-5 SEEN Normal 0-5 [facility] Comment on above: Order Comment: Urine , Random Performed By: #### L 400.0001, ####[facility] [address] [place], [address] Mucus Ql (Urine sed) RARE Normal [facility] Comment on above: Order Comment: Urine , Random Performed By: #### L 400.0001, ####[facility] [address] [place], [address] WBC 5-10 SEEN Normal 0-5 [facility] Comment on above: Order Comment: Urine , Random Performed By: #### L 400.0001, M100.0 ####[facility] [address] [place], [address] RBC 0 SEEN Normal 0-5 [facility] Comment on above: Order Comment: Urine , Random Performed By: #### L 400.0001, M100.0 ####[facility] [address] [place], [address] Urine clarityOrdered By: Alexander Steiner on 01-15-2025 Clarity (U) Clear Clear [facility] Urine color determinationOrd ered By: Alexander Steiner on 01-15-2025 Color (U) Yellow Yellow [facility] Urine cultureOrdered By: Alexander Steiner on 01-15-2025 Bacteria identified Cx Nom (U) Culture exhibits no growth. [facility] Urine glucose detectionOrder ed By: Alexander Steiner on 01-15-2025 Glucose Ql (U) Normal mg/dl Normal [facility] Urine leukocyte esterase det ection by dipstickOrdered By: Alexander Steiner on 01-15-2025 Leukocyte esterase Test strip Ql (U) 100 /ul High Negative [facility] Urine pHOrdered By: Alexander Steiner on 01-15-2025 pH (U) 6.0 [pH] 5.0 - 8.0 [facility] Urine sediment bacteria coun t by microscopy (number/high power field)Ordered By: Alexander Steiner on 01-15-2025 Bacteria LM.HPF (Urine sed) [#/Area] 1 /[HPF] None Seen [facility] Urine specific gravity measu rementOrdered By: Alexander Steiner on 01-15-2025 Specific gravity (U) [Rel density] 1.020 1.002-1.030 [facility] Urine urobilinogen measureme ntOrdered By: Alexander Steiner on 01-15-2025 Urobilinogen Ql (U) Normal mg/dl Normal [facility] White blood cell countOrdere d By: Alexander Steiner on 01-15-2025 White blood cell count 5-10 SEEN /hpf 0-5 [facility] Surgery Visit Reporton 01-10 Surgery Visit Report Normal [facility] Absolute lymphocyte countOrd ered By: Alexander Steiner on 01-06-2025 Lymphocytes Auto (Unsp spec) [#/Vol] 0.81 10*3/uL Low 0.83-4.51 [facility] Absolute neutrophil countOrd ered By: Alexander Steiner on 01-06-2025 Neutrophils (Bld) [#/Vol] 4.9 10*3/uL 2.0-7.7 [facility] Automated lymphocyte count a s percentage of total leukocytesOrdered By: Alexander Steiner on 01-06-2025 Lymphocytes/100 WBC Auto (Unsp spec) 11.6 % Low 19-41 [facility] Basophil percentageOrdered B y: Alexander Steiner on 01-06-2025 Basophils/100 WBC (Bld) 0.9 % 0-1 [facility] CBC W/Diff, Automatedon 12-25 Anisocytosis Ql (Bld) 1+ Normal [facility] Comment on above: Performed By: #### L 100.0100 ####[facility] [id number] [place], [address] Eosinophil percentageOrdered By: Alexander Steiner on 01-06-2025 Eosinophils/100 WBC (Bld) 2.7 % 0-5 [facility] Erythrocyte distribution wid th ratioOrdered By: Alexander Steiner on 01-06-2025 Erythrocyte distribution width (RBC) [Ratio] 22.5 % High 11.6-14.6 [facility] Erythrocyte distribution wid th standard deviationOrdered By: Alexander Steiner on 01-06-2025 Erythrocyte distribution width (RBC) [Ratio] 59.0 fl High 35.1-43.9 [facility] Hematocrit Auto (Bld) [Volum e fraction]Ordered By: Alexander Jatin on 01-06-2025 Hematocrit (Bld) [Volume fraction] 38.9 % Low 40-54 [facility] Hemoglobin measurementOrdere d By: Alexander Steiner on 01-06-2025 Hemoglobin (Bld) [Mass/Vol] 11.6 g/dL Low 13.0-16.5 [facility] Immature granulocytes/100 WB C Auto (Bld)Ordered By: Alexander Jatin on 01-06-2025 Immature granulocytes/100 WBC (Bld) 0.400 % 0.0-0.9 [facility] Comment on above: IG% - Immature Granu locytes (promyelocytes, myelocytes and metamyelocytes) > 1% indicates that a LEFT SHIFT is Present. Laboratory - Hematology and Cell countsOrdered By: Alexander Packerok on 01-06-2025 Anisocytosis Ql (Bld) 1+ [facility] MCV (mean corpuscular volume ) determinationOrdered By: Alexander Packerok on 01-06-2025 MCV (RBC) [Entitic vol] 74.7 fL Low 80-94 [facility] Mean corpuscular hemoglobin (MCH) determinationOrdered By: Alexander Steiner on 01-06-2025 MCH (RBC) [Entitic mass] 22.3 pg Low 27.0-32.0 [facility] Mean corpuscular hemoglobin concentration (MCHC) determinationOrdered By: Alexander Steiner on 01-06-2025 MCHC (RBC) [Mass/Vol] 29.8 g/dL Low 32-36 [facility] Mean platelet volume determi nationOrdered By: Alexander Steiner on 01-06-2025 Platelet mean volume (Bld) [Entitic vol] 10.0 fL 6.2-12.0 [facility] Monocyte percentageOrdered B y: Alexander Packerok on 01-06-2025 Monocytes/100 WBC (Bld) 13.5 % High 0-10 [facility] Neutrophil percentageOrdered By: Alexander Steiner on 01-06-2025 Neutrophils/100 WBC (Bld) 70.9 % High 47-70 [facility] Nucleated red blood cell per centageOrdered By: Alexander Steiner on 01-06-2025 Nucleated RBC/100 WBC (Bld) [Ratio] 0 % 0-5 [facility] Platelet countOrdered By: Emmett Steiner on 01-06-2025 Platelets (Bld) [#/Vol] 323 10*3/uL 150-450 [facility] RBC Auto (Bld) [#/Vol]Ordere d By: Alexander Steiner on 01-06-2025 RBC (Bld) [#/Vol] 5.21 10*6/uL 4.6-6.2 [facility] White blood cell (WBC) count Ordered By: Alexander Steiner on 01-06-2025 WBC (Bld) [#/Vol] 7.0 10*3/uL 4.4-11.0 [facility] Surgery Visit Reporton 01-03 Surgery Visit Report Normal [facility] HH, Hemoglobin AND Hematocri ton 12-31-2024 Hematocrit (Bld) [Volume fraction] 36.0 % Low 40-54 [facility] Comment on above: Performed By: #### L 100.0600 ####[facility] [address] [place], [place], [phone] Hemoglobin (Bld) [Mass/Vol] 11.4 g/dL Low 13.0-16.5 [facility] Comment on above: Performed By: #### L 100.0600 ####[facility] [address] [place], [place], [phone] Hematocrit Auto (Bld) [Volum e fraction]Ordered By: Zuleyma Storm on 12-31-2024 Hematocrit (Bld) [Volume fraction] 36.0 % Low 40-54 [facility] Hemoglobin measurementOrdere d By: Zuleyma Storm on 12-31-2024 Hemoglobin (Bld) [Mass/Vol] 11.4 g/dL Low 13.0-16.5 [facility] Absolute lymphocyte countOrd ered By: Zuleyma Storm on 12-28-2024 Lymphocytes Auto (Unsp spec) [#/Vol] 0.90 10*3/uL 0.83-4.51 [facility] Absolute neutrophil countOrd ered By: Zuleymacorazon Storm on 12-28-2024 Neutrophils (Bld) [#/Vol] 6.1 10*3/uL 2.0-7.7 [facility] Anion gap in Serum or Plasma Ordered By: Zuleyma Storm on 12-28-2024 Anion gap [Moles/Vol] 11 mmol/L 5-15 [facility] Automated lymphocyte count a s percentage of total leukocytesOrdered By: Zuleyma Storm on 12-28-2024 Lymphocytes/100 WBC Auto (Unsp spec) 11.2 % Low 19-41 [facility] BUN/creatinine ratioOrdered By: Zuleyma Storm on 12-28-2024 Urea nitrogen/Creatinine [Mass ratio] 10.9 mg/mg 10- [facility] Basic Metabolic Profile (BMP )on 12-28-2024 BUN/CRE 10.9 RATIO Normal - [facility] Comment on above: Performed By: #### L 100.0100, L500.2500 ####[facility] [address] [place], [address] Calcium [Mass/Vol] 8.2 mg/dL Normal 7.6-11.0 [facility] Comment on above: Performed By: #### L 100.0100, L500.2500 ####[facility] [address] [place], [address] Chloride [Moles/Vol] 107 mmol/L Normal 98-108 [facility] Comment on above: Performed By: #### L 100.0100, L500.2500 ####[facility] [address] [place], [address] CO2 [Moles/Vol] 22.5 mmol/L Normal 21.0-32.0 [facility] Comment on above: Performed By: #### L 100.0100, L500.2500 ####[facility] [address] [place], [address] Creatinine [Mass/Vol] 0.61 mg/dL Low 0.70-1.20 [facility] Comment on above: Performed By: #### L 100.0100, L500.2500 ####[facility] [address] [place], [address] ECRCL 51.35 ml/min Normal 50-250 [facility] Comment on above: Performed By: #### L 100.0100, L500.2500 ####[facility] [address] [place], [address] GAP 11 Normal 5-15 [facility] Comment on above: Performed By: #### L 100.0100, L500.2500 ####[facility] [address] [place], [address] GFR/1.73 sq M.predicted among non-blacks MDRD (S/P/Bld) [Vol rate/Area] 96 mL/min/{1.73_m2} Normal >60 [facility] Comment on above: Result Comment: mL/m in/1.73m2 CKD-EPI Creatinine Equation (2020) Performed By: #### L 100.0100, L500.2500 ####[facility] [address] [place], [address] Glucose [Mass/Vol] 77 mg/dL Normal 70-99 [facility] Comment on above: Performed By: #### L 100.0100, L500.2500 ####[facility] [address] [place], [address] Potassium [Moles/Vol] 3.6 mmol/L Normal 3.3-5.1 [facility] Comment on above: Performed By: #### L 100.0100, L500.2500 ####[facility] [address] [place], [address] Sodium [Moles/Vol] 141 mmol/L Normal 133-145 [facility] Comment on above: Performed By: #### L 100.0100, L500.2500 ####[facility] [address] [place], [address] Urea nitrogen [Mass/Vol] 7 mg/dL Normal 4-19 [facility] Comment on above: Performed By: #### L 100.0100, L500.2500 ####[facility] [address] [place], [address] Basophil percentageOrdered B y: Zuleyma Storm on 12-28-2024 Basophils/100 WBC (Bld) 0.7 % 0-1 [facility] CBC W/Diff, Automatedon 10-0 Anisocytosis Ql (Bld) RARE Normal [facility] Comment on above: Performed By: #### L 100.0100, L500.2500 ####[facility] [address] [place], [address] Carbon dioxide, total [Moles /volume] in Central venous bloodOrdered By: Zuleyma Storm on 12-28-2024 CO2 [Moles/Vol] 22.5 mmol/L 21.0-32.0 [facility] Chloride assayOrdered By: Emmett Storm on 12-28-2024 Chloride [Moles/Vol] 107 mmol/L 98-108 [facility] Eosinophil percentageOrdered By: Zuleyma Storm on 12-28-2024 Eosinophils/100 WBC (Bld) 1.5 % 0-5 [facility] Erythrocyte distribution wid th ratioOrdered By: Zuleyma Storm on 12-28-2024 Erythrocyte distribution width (RBC) [Ratio] 21.7 % High 11.6-14.6 [facility] Erythrocyte distribution wid th standard deviationOrdered By: Zuleymacorazon Storm on 12-28-2024 Erythrocyte distribution width (RBC) [Ratio] 55.8 fl High 35.1-43.9 [facility] Glomerular filtration rate ( GFR) estimation/1.73 sq m using serum, plasma, or whole bOrdered By: Zuleyma Storm on 12-28-2024 GFR/1.73 sq M.predicted among non-blacks MDRD (S/P/Bld) [Vol rate/Area] 96 mL/min/{1.73_m2} >60 [facility] Comment on above: mL/min/1.73m2 CKD-EP I Creatinine Equation (2020) Hematocrit Auto (Bld) [Volum e fraction]Ordered By: Zuleyma Storm on 12-28-2024 Hematocrit (Bld) [Volume fraction] 33.4 % Low 40-54 [facility] Hemoglobin measurementOrdere d By: Zuleyma Storm on 12-28-2024 Hemoglobin (Bld) [Mass/Vol] 10.4 g/dL Low 13.0-16.5 [facility] Immature granulocytes/100 WB C Auto (Bld)Ordered By: Zuleyma Storm on 12-28-2024 Immature granulocytes/100 WBC (Bld) 0.200 % 0.0-0.9 [facility] Comment on above: IG% - Immature Granu locytes (promyelocytes, myelocytes and metamyelocytes) > 1% indicates that a LEFT SHIFT is Present. Laboratory - Hematology and Cell countsOrdered By: Zuleyma Storm on 12-28-2024 Anisocytosis Ql (Bld) RARE [facility] MCV (mean corpuscular volume ) determinationOrdered By: Zuleyma Storm on 12-28-2024 MCV (RBC) [Entitic vol] 72.3 fL Low 80-94 [facility] Magnesiumon 12-28-2024 Magnesium [Mass/Vol] 1.9 mg/dL Normal 1.5-2.2 [facility] Comment on above: Performed By: #### L 501.5200 ####[facility] [address] [place], [address] Magnesium measurement (mass/ volume)Ordered By: Caitlin Fisher on 12-28-2024 Magnesium (Unsp spec) [Mass/Vol] 1.9 mg/dL 1.5-2.2 [facility] Mean corpuscular hemoglobin (MCH) determinationOrdered By: Zuleyma Storm on 12-28-2024 MCH (RBC) [Entitic mass] 22.5 pg Low 27.0-32.0 [facility] Mean corpuscular hemoglobin concentration (MCHC) determinationOrdered By: Zuleyma Storm on 12-28-2024 MCHC (RBC) [Mass/Vol] 31.1 g/dL Low 32-36 [facility] Mean platelet volume determi nationOrdered By: Zuleyma Storm on 12-28-2024 Platelet mean volume (Bld) [Entitic vol] 9.8 fL 6.2-12.0 [facility] Monocyte percentageOrdered B y: Zuleyma Storm on 12-28-2024 Monocytes/100 WBC (Bld) 11.1 % High 0-10 [facility] Neutrophil percentageOrdered By: Zuleyma Storm on 12-28-2024 Neutrophils/100 WBC (Bld) 75.3 % High 47-70 [facility] Nucleated red blood cell per centageOrdered By: Zuleyma Storm on 12-28-2024 Nucleated RBC/100 WBC (Bld) [Ratio] 0 % 0-5 [facility] Platelet countOrdered By: Emmett Storm on 12-28-2024 Platelets (Bld) [#/Vol] 377 10*3/uL 150-450 [facility] Potassium measurement (mass/ volume)Ordered By: Zuleyma Storm on 12-28-2024 Potassium (Unsp spec) [Mass/Vol] 3.6 mmol/L 3.3-5.1 [facility] RBC Auto (Bld) [#/Vol]Ordere d By: Zuleyma Storm on 12-28-2024 RBC (Bld) [#/Vol] 4.62 10*6/uL 4.6-6.2 [facility] Serum creatinine measurement (mass/volume)Ordered By: Zuleyma Storm on 12-28-2024 Creatinine [Mass/Vol] 0.61 mg/dL Low 0.70-1.20 [facility] Serum glucose measurement (m ass/volume)Ordered By: Zuleyma Storm on 12-28-2024 Glucose [Mass/Vol] 77 mg/dL 70-99 [facility] Serum or plasma calcium maddie urement (mass/volume)Ordered By: Zuleyma Storm on 12-28-2024 Calcium [Mass/Vol] 8.2 mg/dL 7.6-11.0 [facility] Serum or plasma urea nitroge n measurement (mass/volume)Ordered By: Zuleyma Storm on 12-28-2024 Urea nitrogen [Mass/Vol] 7 mg/dL 4-19 [facility] Sodium levelOrdered By: Luma Storm on 12-28-2024 Sodium [Moles/Vol] 141 mmol/L 133-145 [facility] White blood cell (WBC) count Ordered By: Zuleyma Storm on 12-28-2024 WBC (Bld) [#/Vol] 8.0 10*3/uL 4.4-11.0 [facility] Basic Metabolic Profile (BMP )on 12-27-2024 BUN/CRE 11.4 RATIO Normal 10-20 [facility] Comment on above: Performed By: #### L 100.0100, L500.2500 ####[facility] [address] [place], [address] Calcium [Mass/Vol] 8.2 mg/dL Normal 7.6-11.0 [facility] Comment on above: Performed By: #### L 100.0100, L500.2500 ####[facility] [address] [place], [address] Chloride [Moles/Vol] 109 mmol/L High 98-108 [facility] Comment on above: Performed By: #### L 100.0100, L500.2500 ####[facility] [address] [place], [address] CO2 [Moles/Vol] 21.6 mmol/L Normal 21.0-32.0 [facility] Comment on above: Performed By: #### L 100.0100, L500.2500 ####[facility] [address] [place], [address] Creatinine [Mass/Vol] 0.66 mg/dL Low 0.70-1.20 [facility] Comment on above: Performed By: #### L 100.0100, L500.2500 ####[facility] [address] [place], [address] ECRCL 51.35 ml/min Normal 50-250 [facility] Comment on above: Performed By: #### L 100.0100, L500.2500 ####[facility] [address] [place], [address] GAP 11 Normal 5-15 [facility] Comment on above: Performed By: #### L 100.0100, L500.2500 ####[facility] [address] [place], [address] GFR/1.73 sq M.predicted among non-blacks MDRD (S/P/Bld) [Vol rate/Area] 94 mL/min/{1.73_m2} Normal >60 [facility] Comment on above: Result Comment: mL/m in/1.73m2 CKD-EPI Creatinine Equation (2020) Performed By: #### L 100.0100, L500.2500 ####[facility] [address] [place], [address] Glucose [Mass/Vol] 145 mg/dL High 70-99 [facility] Comment on above: Performed By: #### L 100.0100, L500.2500 ####[facility] [address] [place], [address] Potassium [Moles/Vol] 4.1 mmol/L Normal 3.3-5.1 [facility] Comment on above: Performed By: #### L 100.0100, L500.2500 ####[facility] [address] [place], [address] Sodium [Moles/Vol] 142 mmol/L Normal 133-145 [facility] Comment on above: Performed By: #### L 100.0100, L500.2500 ####[facility] [address] [place], [address] Urea nitrogen [Mass/Vol] 7 mg/dL Normal 4-19 [facility] Comment on above: Performed By: #### L 100.0100, L500.2500 ####[facility] [address] [place], [address] CBC W/Diff, Automatedon 10-0 Anisocytosis Ql (Bld) 1+ Normal [facility] [facility] Comment on above: Performed By: #### L 100.0100, L500.2500 ####[facility] [address] [place], [address] Limited echocardiogram repor tOrdered By: Miriam Brooks on 12-27-2024 Study report [facility] [address] [place] [address] Echo, Limited Study 12/27/24 09 MR#: [id number] Acct: [id number] Name: MARGAUX SANDERSON Rep #:[id number] : [id number] 84 From: Miriam mistry MD Attending Dr: Dr. Zuleyma Storm MD Status: ADM IN Ordering Dr: Caitlin Fisher MD Date: 12/26/24 Location: [facility] Sex: M C Admitted: 12/27/24 Reason For [...] Date Dictated: 12/27/24901 Date Transcribed: 12/27/24 123 Pension Consultant: Signed [facility] Work Phone: 12 Lead EKGon 12-26-2024 12 Lead EKG Normal [facility] Basic Metabolic Profile (BMP )on 12-26-2024 BUN/CRE 11.7 RATIO Normal -20 [facility] Comment on above: Performed By: #### L 501.5200, L500.2500, L501.9520, L501.77824, L506.0400 ####[facility] [address] [place], [place], [id number] Calcium [Mass/Vol] 7.9 mg/dL Normal 7.6-11.0 [facility] Comment on above: Performed By: #### L 501.5200, L500.2500, L501.9520, L501.75287, L506.0400 ####[facility] [address] [place], [address] Chloride [Moles/Vol] 107 mmol/L Normal 98-108 [facility] Comment on above: Performed By: #### L 501.5200, L500.2500, L501.9520, L501.69606, L506.0400 ####[facility] [address] [place], [address] CO2 [Moles/Vol] 21.2 mmol/L Normal 21.0-32.0 [facility] Comment on above: Performed By: #### L 501.5200, L500.2500, L501.9520, L501.90480, L506.0400 ####[facility] [address] [place], [address] Creatinine [Mass/Vol] 0.70 mg/dL Normal 0.70-1.20 [facility] Comment on above: Performed By: #### L 501.5200, L500.2500, L501.9520, L501.06201, L506.0400 ####[facility] [address] [place], [address] ECRCL 51.35 ml/min Normal 50-250 [facility] Comment on above: Performed By: #### L 501.5200, L500.2500, L501.9520, L501.06735, L506.0400 ####[facility] [address] [place], [address] GAP 11 Normal 5-15 [facility] Comment on above: Performed By: #### L 501.5200, L500.2500, L501.9520, L501.47852, L506.0400 ####[facility] [address] [place], [address] GFR/1.73 sq M.predicted among non-blacks MDRD (S/P/Bld) [Vol rate/Area] 92 mL/min/{1.73_m2} Normal >60 [facility] Comment on above: Result Comment: mL/m in/1.73m2 CKD-EPI Creatinine Equation (2020) Performed By: #### L 501.5200, L500.2500, L501.9520, L501.04454, L506.0400 ####[facility] [address] [place], [address] Glucose [Mass/Vol] 141 mg/dL High 70-99 [facility] Comment on above: Performed By: #### L 501.5200, L500.2500, L501.9520, L501.68268, L506.0400 ####[facility] [address] [place], [address] Potassium [Moles/Vol] 4.0 mmol/L Normal 3.3-5.1 [facility] Comment on above: Performed By: #### L 501.5200, L500.2500, L501.9520, L501.64408, L506.0400 ####[facility] [address] [place], [address] Sodium [Moles/Vol] 139 mmol/L Normal 133-145 [facility] Comment on above: Performed By: #### L 501.5200, L500.2500, L501.9520, L501.63755, L506.0400 ####[facility] [address] [place], [address] Urea nitrogen [Mass/Vol] 8 mg/dL Normal 4-19 [facility] Comment on above: Performed By: #### L 501.5200, L500.2500, L501.9520, L501.66680, L506.0400 ####[facility] [address] [place], [address] BUN Normal 4-19 [facility] Comment on above: Result Comment: KRISTA HAILEENURSE FELISHA CORTEZ NOTIFIED AT 1212 BY LMARTELL. Performed By: #### L 500.2500 ####[facility] [address] [place], [address] BUN/CRE Normal 10-20 [facility] Comment on above: Result Comment: KRISTA DEANNURSE FELISHA NOTIFIED AT 1212 BY LMARTELL. Performed By: #### L 500.2500 ####[facility] [address] [place], [address] Calcium Normal 7.6-11.0 [facility] Comment on above: Result Comment: KRISTA DEANNURSE FELISHA NOTIFIED AT 1212 BY LMARTELL. Performed By: #### L 500.2500 ####[facility] [address] [place], [address] CL Normal 98-108 [facility] Comment on above: Result Comment: KRISTA DEANNURSE FELISHA NOTIFIED AT 1212 BY LMARTELL. Performed By: #### L 500.2500 ####[facility] [address] [place], [address] CO2 Normal 21.0-32.0 [facility] Comment on above: Result Comment: KRISTA DEAN NURSE FELISHA GENAO NOTIFIED AT 1212 BY LMARTELL. Performed By: #### L 500.2500 ####[facility] [address] [place], [address] CREAT,SERUM Normal 0.70-1.20 [facility] Comment on above: Result Comment: NURSE HERMAN FELISHA CHADWICK NOTIFIED AT 1212 BY LMARTELL. Performed By: #### L 500.2500 ####[facility] [address] [place], [address] eGFR Normal >60 [facility] Comment on above: Result Comment: KRISTA MORAN, NURSE FELISHA GENAO NOTIFIED AT 1212 BY LMSpiced BitsELL. Performed By: #### L 500.2500 ####[facility] [address] [place], [address] GAP Normal 5-15 [facility] Comment on above: Result Comment: KRISTA MORAN, NURSE FELISHA GENAO NOTIFIED AT 1212 BY LMARTELL. Performed By: #### L 500.2500 ####[facility] [address] [place], [address] GLU Normal 70-99 [facility] Comment on above: Result Comment: KRISTA MORAN, NURSE FELISHA GENAO NOTIFIED AT 1212 BY LMARTELL. Performed By: #### L 500.2500 ####[facility] [address] [place], [address] Potassium Normal 3.3-5.1 [facility] Comment on above: Result Comment: NURSE FELISHA SUTTON NOTIFIED AT 1212 BY LMSpiced BitsELL. Performed By: #### L 500.2500 ####[facility] [address] [place], [address] Basic Metabolic Profile (BMP) Normal 133-145 [facility] Comment on above: Result Comment: KRISTA MORAN, NURSE FELISHA GENAO NOTIFIED AT 1212 BY LMSpiced BitsELL. Performed By: #### L 500.2500 ####[facility] [address] [place], [address] Bedside Glucoseon 12-26-2024 FINGERSTICK GLU 106 mg/dL Normal 74-106 [facility] Comment on above: Result Comment: ZION DHAVALENT OF PATIENT CARE PER NURSING PROTOCOL Performed By: #### L 501.080 ####[facility] [address] [place], [address] Blood manual differential co mment interpretation (narrative result)Ordered By: Zuleyma Storm on 12-26-2024 Manual differential comment Arie (Bld) [Interp] SCANNED [facility] Blood polychromasia detectio n by light microscopyOrdered By: Zuleyma Storm on 12-26-2024 Polychromasia LM Ql (Bld) RARE [facility] CBC W/Diff, Automatedon Anisocytosis Ql (Bld) 2+ Normal [facility] Comment on above: Performed By: #### L 100.0100 ####[facility] [address] [place], [address] MICROCYTIC 1+ Normal [facility] Comment on above: Performed By: #### L 100.0100 ####[facility] [address] [place], [address] POLYCHROMASIA RARE Normal [facility] Comment on above: Performed By: #### L 100.0100 ####[facility] [address] [place], [address] SMEAR COMMENT SCANNED Normal [facility] Comment on above: Performed By: #### L 100.0100 ####[facility] [address] [place], [address] Echo, Limited Studyon 2024 Echo, Limited Study Normal [facility] Free T3on 12-26-2024 Free T3 [Mass/Vol] 2.2 pg/mL Normal 2.18-3.98 [facility] Comment on above: Performed By: #### L 501.5200, L500.2500, L501.9520, L501.83044, L506.0400 ####[facility] [address] [place], [address] Free N0Acwbqzi By: Caitlin douglass on 12-26-2024 Free T3 [Mass/Vol] 2.2 pg/mL 2.18-3.98 [facility] Glucose measurement at bedsi deOrdered By: Zuleyma Storm on 12-26-2024 Glucose [Mass/Vol] 106 mg/dL 74-106 [facility] Comment on above: MANAGEMENT OF PATIEN T CARE PER NURSING PROTOCOL MR/POSTOP.ANEon 12-26-2024 MR/POSTOP.ANE Normal [facility] Magnesiumon 12-26-2024 Magnesium [Mass/Vol] 2.2 mg/dL Normal 1.5-2.2 [facility] Comment on above: Performed By: #### L 501.5200, L500.2500, L501.9520, L501.67295, L506.0400 ####[facility] [address] [place], [address] Operative Reporton Operative Report Normal [facility] Surgery Specimen Level VIon 12-26-2024 Surgery Specimen Level Normal [facility] Comment on above: Performed By: #### P SUVI ####[facility] [address] [place], [address] T4 Free Directon 12-26-2024 T4 FREE DIRECT 1.70 ng/dL High 0.76-1.46 [facility] Comment on above: Performed By: #### L 501.5200, L500.2500, L501.9520, L501.29939, L506.0400 ####[facility] [address] [place], [address] T4 freeOrdered By: Caitlin douglass on 12-26-2024 Free T4 [Mass/Vol] 1.70 ng/dL High 0.76-1.46 [facility] TSH DL <= 0.005 mIU/L QnOrde red By: Caitlin Fisher on 12-26-2024 TSH Qn 0.447 uIU/mL 0.300-4.200 [facility] Thyroid Stim Hormone (TSH)on 12-26-2024 TSH 0.447 uIU/mL Normal 0.300-4.200 [facility] Comment on above: Performed By: #### L 501.5200, L500.2500, L501.9520, L501.82631, L506.0400 ####[facility] [address] [place], [place], [address] MR/CDADMFVD6bs 12-13-2024 MR/POSTOPAN2 Normal [facility] Absolute lymphocyte countOrd ered By: [facility] on 12-11-2024 Lymphocytes Auto (Unsp spec) [#/Vol] 0.61 10*3/uL Low 0.83-4.51 [facility] Absolute neutrophil countOrd ered By: [facility] on 12-11-2024 Neutrophils (Bld) [#/Vol] 4.7 10*3/uL 2.0-7.7 [facility] Automated lymphocyte count a s percentage of total leukocytesOrdered By: [facility]acorazon [facility] 12-11-2024 Lymphocytes/100 WBC Auto (Unsp spec) 9.4 % Low 19-41 [facility] Basophil percentageOrdered B y: [facility] on 12-11-2024 Basophils/100 WBC (Bld) 1.4 % High 0-1 [facility] CBC W/Diff, Automatedon 11-25 Anisocytosis Ql (Bld) RARE Normal [facility] Comment on above: Performed By: #### L 100.0100 ####[facility] [address] [place], [address] Colonoscopy Reporton 025 Colonoscopy Report Normal [facility] Eosinophil percentageOrdered By: [facility] on 12-11-2024 Eosinophils/100 WBC (Bld) 3.5 % 0-5 [facility] Erythrocyte distribution wid th ratioOrdered By: [facility] on 12-11-2024 Erythrocyte distribution width (RBC) [Ratio] 21.2 % High 11.6-14.6 [facility] Erythrocyte distribution wid th standard deviationOrdered By: [facility] on 12-11-2024 Erythrocyte distribution width (RBC) [Ratio] 55.2 fl High 35.1-43.9 [facility] Frozen Section (charge)on Frozen Section (charge) Normal [facility] Comment on above: Performed By: #### P FSC ####[facility] [address] [place], [address] Hematocrit Auto (Bld) [Volum e fraction]Ordered By: Zuleyma Storm on 12-11-2024 Hematocrit (Bld) [Volume fraction] 35.0 % Low 40-54 [facility] Hemoglobin measurementOrdere d By: Zuleyma Storm on 12-11-2024 Hemoglobin (Bld) [Mass/Vol] 10.8 g/dL Low 13.0-16.5 [facility] Immature granulocytes/100 WB C Auto (Bld)Ordered By: Zuleyma Storm on 12-11-2024 Immature granulocytes/100 WBC (Bld) 0.500 % 0.0-0.9 [facility] Comment on above: IG% - Immature Granu locytes (promyelocytes, myelocytes and metamyelocytes) > 1% indicates that a LEFT SHIFT is Present. Laboratory - Hematology and Cell countsOrdered By: Zuleyma Storm on 12-11-2024 Anisocytosis Ql (Bld) RARE [facility] MCV (mean corpuscular volume ) determinationOrdered By: Zuleyma Storm on 12-11-2024 MCV (RBC) [Entitic vol] 73.5 fL Low 80-94 [facility] MR/OP.PROVATon 12-11-2024 MR/OP.PROVAT Normal [facility] MR/POSTOP.ANEon 12-11-2024 MR/POSTOP.ANE Normal [facility] MR/YULFTAQD5ct 12-11-2024 MR/POSTOPAN2 Normal [facility] Mean corpuscular hemoglobin (MCH) determinationOrdered By: Zuleyma Storm on 12-11-2024 MCH (RBC) [Entitic mass] 22.7 pg Low 27.0-32.0 [facility] Mean corpuscular hemoglobin concentration (MCHC) determinationOrdered By: Zuleyma Storm on 12-11-2024 MCHC (RBC) [Mass/Vol] 30.9 g/dL Low 32-36 [facility] Mean platelet volume determi nationOrdered By: Zuleyma Storm on 12-11-2024 Platelet mean volume (Bld) [Entitic vol] 10.0 fL 6.2-12.0 [facility] Monocyte percentageOrdered B y: Zuleyma Storm on 12-11-2024 Monocytes/100 WBC (Bld) 12.4 % High 0-10 [facility] Neutrophil percentageOrdered By: Zuleyma Storm on 12-11-2024 Neutrophils/100 WBC (Bld) 72.8 % High 47-70 [facility] Nucleated red blood cell per centageOrdered By: Zuleyma Storm on 12-11-2024 Nucleated RBC/100 WBC (Bld) [Ratio] 0 % 0-5 [facility] Platelet countOrdered By: Emmett Storm on 12-11-2024 Platelets (Bld) [#/Vol] 266 10*3/uL 150-450 [facility] RBC Auto (Bld) [#/Vol]Ordere d By: Zuleyma Storm on 12-11-2024 RBC (Bld) [#/Vol] 4.76 10*6/uL 4.6-6.2 [facility] White blood cell (WBC) count Ordered By: Zuleyma Storm on 12-11-2024 WBC (Bld) [#/Vol] 6.5 10*3/uL 4.4-11.0 [facility] CBC W/Diff, Automatedon 11-25 Anisocytosis Ql (Bld) 1+ Normal [facility] Comment on above: Order Comment: SEND H H TO DR. STEINER Performed By: #### L 100.0100 ####[facility] [address] [place], [place], [address] Magnesiumon 12-09-2024 Magnesium [Mass/Vol] 2.0 mg/dL Normal 1.5-2.2 [facility] Comment on above: Performed By: #### L 501.5200 ####[facility] [address] [place], [place], [address] MR/PAT.ANEon 12-06-2024 MR/PAT.ANE Normal [facility] MR/PAT.ANE Normal [facility] MR/PAT.ANE Normal [facility] MR/PAT.ANE Normal [facility] Surgery Visit Reporton 12-04 Surgery Visit Report Normal [facility] Absolute lymphocyte countOrd ered By: Alexander Steiner on 12-03-2024 Lymphocytes Auto (Unsp spec) [#/Vol] 0.83 10*3/uL 0.83-4.51 [facility] Absolute neutrophil countOrd ered By: Alexander Steiner on 12-03-2024 Neutrophils (Bld) [#/Vol] 6.0 10*3/uL 2.0-7.7 [facility] Automated lymphocyte count a s percentage of total leukocytesOrdered By: Alexander Steiner on 12-03-2024 Lymphocytes/100 WBC Auto (Unsp spec) 10.2 % Low 19-41 [facility] Basophil percentageOrdered B y: Alexander Steiner on 12-03-2024 Basophils/100 WBC (Bld) 1.0 % 0-1 [facility] CBC W/Diff, Automatedon Absolute Lymph 0.83 X10 3/uL Normal 0.83-4.51 [facility] Comment on above: Performed By: #### L 100.0100 ####[facility] [address] [place], [address] Absolute Neut 6.0 X10 3/uL Normal 2.0-7.7 [facility] Comment on above: Performed By: #### L 100.0100 ####[facility] [address] [place], [address] Basophils/100 WBC (Bld) 1.0 % Normal 0-1 [facility] Comment on above: Performed By: #### L 100.0100 ####[facility] [address] [place], [address] Eosinophils/100 WBC (Bld) 2.8 % Normal 0-5 [facility] Comment on above: Performed By: #### L 100.0100 ####[facility] [address] [place], [address] Erythrocyte distribution width (RBC) [Ratio] 19.5 % High 11.6-14.6 [facility] Comment on above: Performed By: #### L 100.0100 ####[facility] [address] [place], [address] Hematocrit (Bld) [Volume fraction] 36.3 % Low 40-54 [facility] Comment on above: Performed By: #### L 100.0100 ####[facility] [address] [place], [address] Hemoglobin (Bld) [Mass/Vol] 11.4 g/dL Low 13.0-16.5 [facility] Comment on above: Performed By: #### L 100.0100 ####[facility] [address] [place], [address] IG% 0.200 Normal 0.0-0.9 [facility] Comment on above: Result Comment: IG% - Immature Granulocytes (promyelocytes, myelocytes andmetamyelocytes) > 1% indicates that a LEFT SHIFT is Present. Performed By: #### L 100.0100 ####[facility] [address] [place], [address] Lymphocytes/100 WBC (Bld) 10.2 % Low 19-41 [facility] Comment on above: Performed By: #### L 100.0100 ####[facility] [address] [place], [address] MCH (RBC) [Entitic mass] 22.9 pg Low 27.0-32.0 [facility] Comment on above: Performed By: #### L 100.0100 ####[facility] [address] [place], [address] MCHC (RBC) [Mass/Vol] 31.4 g/dL Low 32-36 [facility] Comment on above: Performed By: #### L 100.0100 ####[facility] [address] [place], [address] MCV (RBC) [Entitic vol] 72.9 fL Low 80-94 [facility] Comment on above: Performed By: #### L 100.0100 ####[facility] [address] [place], [address] Monocytes/100 WBC (Bld) 13.0 % High 0-10 [facility] Comment on above: Performed By: #### L 100.0100 ####[facility] [address] [place], [address] Neutrophils/100 WBC (Bld) 72.8 % High 47-70 [facility] Comment on above: Performed By: #### L 100.0100 ####[facility] [address] [place], [address] Nucleated RBC (Bld) [#/Vol] 0 10*3/uL Normal 0-5 [facility] Comment on above: Performed By: #### L 100.0100 ####[facility] [address] [place], [address] Platelet mean volume (Bld) [Entitic vol] 9.8 fL Normal 6.2-12.0 [facility] Comment on above: Performed By: #### L 100.0100 ####[facility] [address] [place], [address] Platelets (Bld) [#/Vol] 319 10*3/uL Normal 150-450 [facility] Comment on above: Performed By: #### L 100.0100 ####[facility] [address] [place], [address] RBC (Bld) [#/Vol] 4.98 10*6/uL Normal 4.6-6.2 [facility] Comment on above: Performed By: #### L 100.0100 ####[facility] [address] [place], [address] RDW SD 50.1 fl High 35.1-43.9 [facility] Comment on above: Performed By: #### L 100.0100 ####[facility] [address] [place], [address] WBC (Bld) [#/Vol] 8.2 10*3/uL Normal 4.4-11.0 [facility] Comment on above: Performed By: #### L 100.0100 ####[facility] [address] [place], [address] Eosinophil percentageOrdered By: Alexander Steiner on 12-03-2024 Eosinophils/100 WBC (Bld) 2.8 % 0-5 [facility] Erythrocyte distribution wid th ratioOrdered By: [facility] Erythrocyte distribution width (RBC) [Ratio] 19.5 % High 11.6-14.6 [facility] Erythrocyte distribution wid th standard deviationOrdered By: [facility] 12-03-2024 Erythrocyte distribution width (RBC) [Ratio] 50.1 fl High 35.1-43.9 [facility] Hematocrit Auto (Bld) [Volum e fraction]Ordered By: Alexander Jatin 12-03-2024 Hematocrit (Bld) [Volume fraction] 36.3 % Low 40-54 [facility] Hemoglobin measurementOrdere d By: Alexander Steiner 12-03-2024 Hemoglobin (Bld) [Mass/Vol] 11.4 g/dL Low 13.0-16.5 [facility] Immature granulocytes/100 WB C Auto (Bld)Ordered By: [facility] 12-03-2024 Immature granulocytes/100 WBC (Bld) 0.200 % 0.0-0.9 [facility] Comment on above: IG% - Immature Granu locytes (promyelocytes, myelocytes and metamyelocytes) > 1% indicates that a LEFT SHIFT is Present. MCV (mean corpuscular volume ) determinationOrdered By: Alexander Steiner 12-03-2024 MCV (RBC) [Entitic vol] 72.9 fL Low 80-94 [facility] Mean corpuscular hemoglobin (MCH) determinationOrdered By: Alexander Packerok on 12-03-2024 MCH (RBC) [Entitic mass] 22.9 pg Low 27.0-32.0 [facility] Mean corpuscular hemoglobin concentration (MCHC) determinationOrdered By: Alexander Jatin on 12-03-2024 MCHC (RBC) [Mass/Vol] 31.4 g/dL Low 32-36 [facility] Mean platelet volume determi nationOrdered By: Alexander Packerok on 12-03-2024 Platelet mean volume (Bld) [Entitic vol] 9.8 fL 6.2-12.0 [facility] Monocyte percentageOrdered B y: Alexander Jatin on 12-03-2024 Monocytes/100 WBC (Bld) 13.0 % High 0-10 [facility] Neutrophil percentageOrdered By: Alexander Packerok on 12-03-2024 Neutrophils/100 WBC (Bld) 72.8 % High 47-70 [facility] Nucleated red blood cell per centageOrdered By: Alexander Steiner on 12-03-2024 Nucleated RBC/100 WBC (Bld) [Ratio] 0 % 0-5 [facility] Platelet countOrdered By: Emmett Stiener on 12-03-2024 Platelets (Bld) [#/Vol] 319 10*3/uL 150-450 [facility] RBC Auto (Bld) [#/Vol]Ordere d By: Alexander Steiner on 12-03-2024 RBC (Bld) [#/Vol] 4.98 10*6/uL 4.6-6.2 [facility] White blood cell (WBC) count Ordered By: Alexander Steiner on 12-03-2024 WBC (Bld) [#/Vol] 8.2 10*3/uL 4.4-11.0 [facility] BRCon 11-29-2024 RC Normal [facility] Comment on above: Result Comment: [id number] OP RC TRANSFUSED 12/02/24 [id number] OP RC TRANSFUSED 12/02/24 0931 Performed By: #### B RC, M100.7900, BTS ####[facility] [address] [place], [address] Result Comment: [id number] OP RC XM [id number] OP RC XM COMPATIBLE Performed By: #### Dylon BOWLES, BTS, 79 ####[facility] [address] [place], [address] Stool Occult Blood iFOBon STOB Positive Normal [facility] Comment on above: Performed By: #### Dylon BOWLES, , BTS ####[facility] [address] [place], [address] Performed By: #### Dylon BOWLES, BTS, ####[facility] [address] [place], [address] Stool gastrointestinal hemog lobin detection by immunologic methodOrdered By: Alexander Steiner on 11-29-2024 Lower GI hemoglobin IA Ql (Stl) Positive Abnormal [facility] Type AND Screenon 11-29-2024 Ab SCREEN GEL Negative Normal [facility] Comment on above: Order Comment: NTNYA Performed By: #### Dylon BOWLES, , BTS ####[facility] [address] [place], [address] ABO and Rh group Nom (Bld) Blood group O Rh(D) positive Normal [facility] Comment on above: Order Comment: NTNYA Performed By: #### Dylon BOWLES, , BTS ####[facility] [address] [place], [address] Order Comment: A Performed By: #### Dylon BOWLES, BTS, ####[facility] [address] [place], [address] Absolute lymphocyte countOrd ered By: Alexander Steiner on 11-28-2024 Lymphocytes Auto (Unsp spec) [#/Vol] 0.97 10*3/uL 0.83-4.51 [facility] Absolute neutrophil countOrd ered By: Alexander Steiner on 11-28-2024 Neutrophils (Bld) [#/Vol] 4.5 10*3/uL 2.0-7.7 [facility] Anion gap in Serum or Plasma Ordered By: Alexander Steiner on 11-28-2024 Anion gap [Moles/Vol] 9 mmol/L 5- [facility] Automated lymphocyte count a s percentage of total leukocytesOrdered By: Alexander Steiner on 11-28-2024 Lymphocytes/100 WBC Auto (Unsp spec) 14.6 % Low 19- [facility] BUN/creatinine ratioOrdered By: Alexander Jatin on 11-28-2024 Urea nitrogen/Creatinine [Mass ratio] 11.4 mg/mg 10- [facility] Basophil percentageOrdered B y: Alexander Steiner on 11-28-2024 Basophils/100 WBC (Bld) 0.9 % 0-1 [facility] Bilirubin, totalOrdered By: Alexander Steiner on 11-28-2024 Bilirubin [Mass/Vol] 0.43 mg/dL 0.00-1.30 [facility] CBC W/Diff, Automatedon Absolute Lymph 0.97 X10 3/uL Normal 0.83-4.51 [facility] Comment on above: Performed By: #### L 100.0100, L500.4050, L300.3900 ####[facility] [address] [place], [address] Absolute Neut 4.5 X10 3/uL Normal 2.0-7.7 [facility] Comment on above: Performed By: #### L 100.0100, L500.4050, L300.3900 ####[facility] [address] [place], [address] Basophils/100 WBC (Bld) 0.9 % Normal 0-1 [facility] Comment on above: Performed By: #### L 100.0100, L500.4050, L300.3900 ####[facility] [address] [place], [address] Eosinophils/100 WBC (Bld) 2.9 % Normal 0-5 [facility] Comment on above: Performed By: #### L 100.0100, L500.4050, L300.3900 ####[facility] [address] [place], [address] Erythrocyte distribution width (RBC) [Ratio] 18.1 % High 11.6-14.6 [facility] Comment on above: Performed By: #### L 100.0100, L500.4050, L300.3900 ####[facility] [address] [place], [address] Hematocrit (Bld) [Volume fraction] 30.0 % Low 40-54 [facility] Comment on above: Performed By: #### L 100.0100, L500.4050, L300.3900 ####[facility] [address] [place], [address] Hemoglobin (Bld) [Mass/Vol] 9.0 g/dL Low 13.0-16.5 [facility] Comment on above: Performed By: #### L 100.0100, L500.4050, L300.3900 ####[facility] [address] [place], [address] IG% 0.500 Normal 0.0-0.9 [facility] Comment on above: Result Comment: IG% - Immature Granulocytes (promyelocytes, myelocytes andmetamyelocytes) > 1% indicates that a LEFT SHIFT is Present. Performed By: #### L 100.0100, L500.4050, L300.3900 ####[facility] [address] [place], [address] Lymphocytes/100 WBC (Bld) 14.6 % Low 19-41 [facility] Comment on above: Performed By: #### L 100.0100, L500.4050, L300.3900 ####[facility] [address] [place], [address] MCH (RBC) [Entitic mass] 21.1 pg Low 27.0-32.0 [facility] Comment on above: Performed By: #### L 100.0100, L500.4050, L300.3900 ####[facility] [address] [place], [address] MCHC (RBC) [Mass/Vol] 30.0 g/dL Low 32-36 [facility] Comment on above: Performed By: #### L 100.0100, L500.4050, L300.3900 ####[facility] [address] [place], [address] MCV (RBC) [Entitic vol] 70.4 fL Low 80-94 [facility] Comment on above: Performed By: #### L 100.0100, L500.4050, L300.3900 ####[facility] [address] [place], [address] Monocytes/100 WBC (Bld) 13.4 % High 0-10 [facility] Comment on above: Performed By: #### L 100.0100, L500.4050, L300.3900 ####[facility] [address] [place], [address] Neutrophils/100 WBC (Bld) 67.7 % Normal 47-70 [facility] Comment on above: Performed By: #### L 100.0100, L500.4050, L300.3900 ####[facility] [address] [place], [address] Nucleated RBC (Bld) [#/Vol] 0 10*3/uL Normal 0-5 [facility] Comment on above: Performed By: #### L 100.0100, L500.4050, L300.3900 ####[facility] [address] [place], [address] Platelet mean volume (Bld) [Entitic vol] 10.1 fL Normal 6.2-12.0 [facility] Comment on above: Performed By: #### L 100.0100, L500.4050, L300.3900 ####[facility] [address] [place], [address] Platelets (Bld) [#/Vol] 354 10*3/uL Normal 150-450 [facility] Comment on above: Performed By: #### L 100.0100, L500.4050, L300.3900 ####[facility] [address] [place], [address] RBC (Bld) [#/Vol] 4.26 10*6/uL Low 4.6-6.2 [facility] Comment on above: Performed By: #### L 100.0100, L500.4050, L300.3900 ####[facility] [address] [place], [address] RDW SD 45.3 fl High 35.1-43.9 [facility] Comment on above: Performed By: #### L 100.0100, L500.4050, L300.3900 ####[facility] [address] [place], [address] WBC (Bld) [#/Vol] 6.7 10*3/uL Normal 4.4-11.0 [facility] Comment on above: Performed By: #### L 100.0100, L500.4050, L300.3900 ####[facility] [address] [place], [address] Carbon dioxide, total [Moles /volume] in Central venous bloodOrdered By: Alexander Steiner on 11-28-2024 CO2 [Moles/Vol] 23.8 mmol/L 21.0-32.0 [facility] Chloride assayOrdered By: Emmett jamey Jatin on 11-28-2024 Chloride [Moles/Vol] 108 mmol/L 98-108 [facility] Comprehensive Metabolic Prof ilon 11-28-2024 Albumin [Mass/Vol] 4.0 g/dL Normal 3.4-4.8 [facility] Comment on above: Performed By: #### L 100.0100, L500.4050, L300.3900 ####[facility] [address] [place], [address] Albumin/Globulin [Mass ratio] 1.5 {ratio} Normal 0.9-2.4 [facility] Comment on above: Performed By: #### L 100.0100, L500.4050, L300.3900 ####[facility] [address] [place], [address] ALK PHOS 129 U/L Normal 40-129 [facility] Comment on above: Performed By: #### L 100.0100, L500.4050, L300.3900 ####[facility] [address] [place], [address] ALT [Catalytic activity/Vol] 7 U/L Normal <=46 [facility] Comment on above: Performed By: #### L 100.0100, L500.4050, L300.3900 ####[facility] [address] [place], [address] AST [Catalytic activity/Vol] 25 U/L Normal <=37 [facility] Comment on above: Performed By: #### L 100.0100, L500.4050, L300.3900 ####[facility] [address] [place], [address] Bilirubin [Mass/Vol] 0.43 mg/dL Normal 0.00-1.30 [facility] Comment on above: Performed By: #### L 100.0100, L500.4050, L300.3900 ####[facility] [address] [place], [address] BUN/CRE 11.4 RATIO Normal 10-20 [facility] Comment on above: Performed By: #### L 100.0100, L500.4050, L300.3900 ####[facility] [address] [place], [address] Calcium [Mass/Vol] 9.4 mg/dL Normal 7.6-11.0 [facility] Comment on above: Performed By: #### L 100.0100, L500.4050, L300.3900 ####[facility] [address] [place], [address] Chloride [Moles/Vol] 108 mmol/L Normal 98-108 [facility] Comment on above: Performed By: #### L 100.0100, L500.4050, L300.3900 ####[facility] [address] [place], [address] CO2 [Moles/Vol] 23.8 mmol/L Normal 21.0-32.0 [facility] Comment on above: Performed By: #### L 100.0100, L500.4050, L300.3900 ####[facility] [address] [place], [address] Creatinine [Mass/Vol] 0.70 mg/dL Normal 0.70-1.20 [facility] Comment on above: Performed By: #### L 100.0100, L500.4050, L300.3900 ####[facility] [address] [place], [address] GAP 9 Normal 5-15 [facility] Comment on above: Performed By: #### L 100.0100, L500.4050, L300.3900 ####[facility] [address] [place], [address] GFR/1.73 sq M.predicted among non-blacks MDRD (S/P/Bld) [Vol rate/Area] 92 mL/min/{1.73_m2} Normal >60 [facility] Comment on above: Result Comment: mL/m in/1.73m2 CKD-EPI Creatinine Equation (2020) Performed By: #### L 100.0100, L500.4050, L300.3900 ####[facility] [address] [place], [address] Globulin (S) [Mass/Vol] 2.7 g/dL Normal 2.2-4.2 [facility] Comment on above: Performed By: #### L 100.0100, L500.4050, L300.3900 ####[facility] [address] [place], [address] Glucose [Mass/Vol] 100 mg/dL High 70-99 [facility] Comment on above: Performed By: #### L 100.0100, L500.4050, L300.3900 ####[facility] [address] [place], [address] Potassium [Moles/Vol] 4.2 mmol/L Normal 3.3-5.1 [facility] Comment on above: Performed By: #### L 100.0100, L500.4050, L300.3900 ####[facility] [address] [place], [address] Sodium [Moles/Vol] 140 mmol/L Normal 133-145 [facility] Comment on above: Performed By: #### L 100.0100, L500.4050, L300.3900 ####[facility] [address] [place], [address] T PROT 6.6 g/dL Normal 5.9-8.4 [facility] Comment on above: Performed By: #### L 100.0100, L500.4050, L300.3900 ####[facility] [address] [place], [place], [address] Urea nitrogen [Mass/Vol] 8 mg/dL Normal 4-19 [facility] Comment on above: Performed By: #### L 100.0100, L500.4050, L300.3900 ####[facility] [address] [place], [address] Eosinophil percentageOrdered By: Alexander Steiner on 11-28-2024 Eosinophils/100 WBC (Bld) 2.9 % 0-5 [facility] Erythrocyte distribution wid th ratioOrdered By: [facility] on 11-28-2024 Erythrocyte distribution width (RBC) [Ratio] 18.1 % High 11.6-14.6 [facility] Erythrocyte distribution wid th standard deviationOrdered By: [facility] on 11-28-2024 Erythrocyte distribution width (RBC) [Ratio] 45.3 fl High 35.1-43.9 [facility] Glomerular filtration rate ( GFR) estimation/1.73 sq m using serum, plasma, or whole bOrdered By: Alexander Steiner on 11-28-2024 GFR/1.73 sq M.predicted among non-blacks MDRD (S/P/Bld) [Vol rate/Area] 92 mL/min/{1.73_m2} >60 [facility] Comment on above: mL/min/1.73m2 CKD-EP I Creatinine Equation (2020) Hematocrit Auto (Bld) [Volum e fraction]Ordered By: Alexander Steiner on 11-28-2024 Hematocrit (Bld) [Volume fraction] 30.0 % Low 40-54 [facility] Hemoglobin measurementOrdere d By: Alexander Steiner on 11-28-2024 Hemoglobin (Bld) [Mass/Vol] 9.0 g/dL Low 13.0-16.5 [facility] Immature granulocytes/100 WB C Auto (Bld)Ordered By: Alexander Steiner on 11-28-2024 Immature granulocytes/100 WBC (Bld) 0.500 % 0.0-0.9 [facility] Comment on above: IG% - Immature Granu locytes (promyelocytes, myelocytes and metamyelocytes) > 1% indicates that a LEFT SHIFT is Present. International normalized rat io (INR) calculationOrdered By: Alexander Steiner on 11-28-2024 INR Coag (Bld) [Relative time] 1.1 {INR} [facility] Laboratory - Chemistry and C hemistry - challengeOrdered By: Alexander Steiner on 11-28-2024 AST [Catalytic activity/Vol] 25 U/L <38 [facility] MCV (mean corpuscular volume ) determinationOrdered By: Alexander Steiner on 11-28-2024 MCV (RBC) [Entitic vol] 70.4 fL Low 80-94 [facility] Mean corpuscular hemoglobin (MCH) determinationOrdered By: Alexander Steiner 11-28-2024 MCH (RBC) [Entitic mass] 21.1 pg Low 27.0-32.0 [facility] Mean corpuscular hemoglobin concentration (MCHC) determinationOrdered By: Alexander Steiner 11-28-2024 MCHC (RBC) [Mass/Vol] 30.0 g/dL Low 32-36 [facility] Mean platelet volume determi nationOrdered By: Alexander Steiner 11-28-2024 Platelet mean volume (Bld) [Entitic vol] 10.1 fL 6.2-12.0 [facility] Monocyte percentageOrdered B y: Alexander Steiner 11-28-2024 Monocytes/100 WBC (Bld) 13.4 % High 0-10 [facility] Neutrophil percentageOrdered By: Alexander Steiner 11-28-2024 Neutrophils/100 WBC (Bld) 67.7 % 47-70 [facility] Nucleated red blood cell per centageOrdered By: Alexander Steiner 11-28-2024 Nucleated RBC/100 WBC (Bld) [Ratio] 0 % 0-5 [facility] Platelet countOrdered By: Emmett Steiner on 11-28-2024 Platelets (Bld) [#/Vol] 354 10*3/uL 150-450 [facility] Potassium measurement (mass/ volume)Ordered By: Alexander Steiner 11-28-2024 Potassium (Unsp spec) [Mass/Vol] 4.2 mmol/L 3.3-5.1 [facility] Prothrombin Time w/INRon INR Coag (PPP) [Relative time] 1.1 {INR} Normal [facility] Comment on above: Performed By: #### L 100.0100, L500.4050, L300.3900 ####[facility] [address] [place], [address] PT Coag (PPP) [Time] 14.0 s Normal 11.7-14.9 [facility] Comment on above: Performed By: #### L 100.0100, L500.4050, L300.3900 ####[facility] [address] [place], [address] Prothrombin timeOrdered By: Alexander Steiner on 11-28-2024 PT Coag (PPP) [Time] 14.0 s 11.7-14.9 [facility] RBC Auto (Bld) [#/Vol]Ordere d By: Alexander Steiner on 11-28-2024 RBC (Bld) [#/Vol] 4.26 10*6/uL Low 4.6-6.2 [facility] Serum creatinine measurement (mass/volume)Ordered By: Alexander Steiner on 11-28-2024 Creatinine [Mass/Vol] 0.70 mg/dL 0.70-1.20 [facility] Serum globulin measurementOr dered By: Alexander Steiner on 11-28-2024 Globulin (S) [Mass/Vol] 2.7 g/dL 2.2-4.2 [facility] Serum glucose measurement (m ass/volume)Ordered By: Alexander Steiner on 11-28-2024 Glucose [Mass/Vol] 100 mg/dL High 70-99 [facility] Serum or plasma alanine luna otransferase (ALT) measurementOrdered By: Alexander Steiner on 11-28-2024 ALT [Catalytic activity/Vol] 7 U/L <47 [facility] Serum or plasma albumin maddie urement (mass/volume)Ordered By: Alexander Steiner on 11-28-2024 Albumin [Mass/Vol] 4.0 g/dL 3.4-4.8 [facility] Serum or plasma albumin/glob ulin mass ratioOrdered By: 11-28-2024 Albumin/Globulin [Mass ratio] 1.5 {ratio} 0.9-2.4 [facility] Serum or plasma alkaline cheryl sphatase measurementOrdered By: Alexander Jatin11-28-2024 ALP [Catalytic activity/Vol] 129 U/L 40-129 [facility] Serum or plasma calcium maddie urement (mass/volume)Ordered By: Alexander Jatin on 11-28-2024 Calcium [Mass/Vol] 9.4 mg/dL 7.6-11.0 [facility] Serum or plasma urea nitroge n measurement (mass/volume)Ordered By: Jatin11-28-2024 Urea nitrogen [Mass/Vol] 8 mg/dL 4-19 [facility] Sodium levelOrdered By: 11-28-2024 Sodium [Moles/Vol] 140 mmol/L 133-145 [facility] Total proteinOrdered By: Alexander Jatin11-28-2024 Protein [Mass/Vol] 6.6 g/dL 5.9-8.4 [facility] White blood cell (WBC) count Ordered By: Alexander Jatin11-28-2024 WBC (Bld) [#/Vol] 6.7 10*3/uL 4.4-11.0 [facility] CNPNon 11-21-2024 CNPN Telephone ([employer]) MARGAUX SANDERSON ([id number]) 1940 M Date Time Provider Department 11/21/24 [...] request for testing to be uploaded into [employer]. Appointment scheduled for . MILO Huang Amy [...] medical clearance letter faxed to Dr. Steiner. [phone] FRANKY Villar Kimberly, LPN 11/29/2024 12:04 PM Signed Leslie called. Verified name and date of of patient. Patient has decided to have surgery done by Dr. Zuleyma Storm MD with [facility] General Surgery. They need the surgery that [...] [place] but patient is being seen by [place] for procedure. MILO Huang Amelia, LPN 12/02/2024 10:55 AM Signed Leslie Patient daughter called stating that she reached out to medical records and was told they are not able burn disc with photos. Please advise daughter on how to proceed. Ely Hernández MA 12/03/2024 2:30 PM Signed Printed from [employer] 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 No video, only photos. Ely Hernández MA Allergies As of Date: 11/21/2024 (No Known Allergies) Date Reviewed: 11/21/2024 Reviewed by: Saurav Machuca MD - Fully Assessed Reason for Visit: Patient Question [1796] Prescriptions as of 12/03/2024 - atorvastatin (LIPITOR) [...] Encounter Status:Closed by LEENA BOWLES on 11/29/24 [facility] CNOVon 11-20-2024 CNOV Office Visit (GENSWS) MARGAUX SANDERSON ([id number]) 1940 M Date Time Provider Department 11/20/24 [...] two-step approach: 1. A repeat colonoscopy at [facility] to remove as many remaining polyps as [...] schedule the repeat colonoscopy and surgery at [facility]. You will receive instructions on the exact dates and times. - If you notice a metal clip in your stool, it is from the previous procedure and is normal. Please let us know if you have any questions or concerns as we move forward with this plan. Saurav Machuca MD 11/21/2024 6:35 AM Signed FOLLOW UP VISIT - ENDOSCOPY NAME: Margaux Sanderson [facility] NO.: [id number] DATE OF SERVICE: 11/20/2024 : 1940 REFERRING [...] upper lobe lung cancer. He follows with [facility]. He completed radiation in 2022. Disease is stable. He has a hx of COPD- uses duoneb daily, but no other inhalers. Is able to walk up steps AND complete activity with no issues Margaux follows with [facility]. Last OV 08/2024. He had a stress test in 2023 EF was 57% AND there was no evidence of ischemia. He CP, SOB, dizziness, palpitations, syncope, edema, recent hospitalizations Margaux has undergone prior endoscopy. Last EGD AND colonoscopy was 01/[address] Machuca at [facility]. Sedation: MAC T he entire duodenum [...] withdrawn, t (more content not included)... Normal [facility] [id number] 11-15-2024 [id number] HNO ID: [id number] Author: NIA CELESTIN RN Service: ? Author Type: Registered Nurse Type: [id number] Filed: 11/15/2024 09:44 Note Text: The patient received a copy of Colonoscopy and EGD discharge instructions that contain information for how to contact the physician who performed the procedure and when to seek medical care. Normal [facility] Colonoscopyon 11-15-2024 Colonoscopy [place] [facility] Gastrointestinal Endoscopy Patient Name: Margaux Sanderson Procedure [...] the patient. Procedure Code(s): --- Professional --- 96982, Colonoscopy, flexible; with removal of tumor(s), polyp(s), or other lesion( (more content not included)... Normal [facility] EGD Study observation Alexandrea pena 11-15-2024 [facility] Gastrointestinal Endoscopy Patient Name: Margaux Sanderson Procedure [...] 1 week. Procedure Code(s): --- Professional --- 99085, Esophagogastroduoden oscopy, flexible, transoral; with biopsy, single or multiple G0500, Moder (more content not included)... [facility] Flexible sigmoidoscopy study on 11-15-2024 [facility] Gastrointestinal Endoscopy Patient Name: Margaux Sanderson Procedure [...] otherwise wi (more content not included)... [employer]ATION [facility] HISTORY PHYSICALon HISTORY PHYSICAL HNO ID: [id number] Author: SAURAV MACHUCA MD Service: General Surgery [...] upper lobe lung cancer. He follows with [facility]. He completed radiation in 2022. Disease is stable. He has a hx of COPD- uses duoneb daily, but no other inhalers. Is able to walk up steps AND complete activity with no issues Margaux follows with [facility]. Last OV 08/2024. He had a stress test in 2023 EF was 57% AND there was no evidence of ischemia. He CP, SOB, dizziness, palpitations, syncope, edema, recent hospitalizations Margaux has undergone prior endoscopy. Last EGD AND colonoscopy was 01/[address] Machuca at [facility]. Sedation: MAC T he entire duodenum [...] GERD (gastroesopha (more content not included)... Normal [facility] No Panel Informationon 11-15 Radiology Study observation (narrative) [facility] Pathology biopsy report Arie (Tiss)on 11-15-2024 AP DISCLAIMER Normal [facility] Comment on above: Order Comment: Speci men Type: TISSUE SPECIMEN Ordering Facility: [facility] Address: [address] [place] [address] Result Comment: Walter olsen Developed Test (LDT) Disclaimer: Performance characteristics of immunohistochemical, immunofluorescent, and chromogenic in-situ hybridization tests have been determined by the performing laboratory within the [facility] Department of Pathology and Laboratory Medicine ([facility], [facility], [facility], [facility], [facility], [facility], or [facility]) in a manner consistent with CLIA requirements. One or more of these tests may not have been cleared or approved by the FDA. The [facility] Department of Pathology and Laboratory Medicine is regulated under CLIA as qualified to perform high-complexity testing. These tests are used for clinical purposes. These should not be regarded as investigational or for research. Positive and negative controls stain appropriately. Performed By: #### 6 6121-5 #### [facility] CLIA [id number] [address] [place] [address] [place] [facility] CLIA [id number] [address] [place] [address] [place] CASE REPORT Normal [facility] Comment on above: Order Comment: Sebastian pinon Type: TISSUE SPECIMEN Ordering Facility: [facility] Address: [address] [place] [address] Result Comment: Surg ica Pathology Report Case: [id number] Authorizing Provider: Saurav Machuca MD Collected: 11/15/2024 [...] #### 6 6121-5 #### [facility] CLIA [id number] [address] [place] [address] [place] [facility] CLIA [id number] [address] [place] [address] [place] DIAGNOSIS COMMENT Normal [facility] Comment on above: Order Comment: Sebastian pinon Type: TISSUE SPECIMEN Ordering Facility: [facility] Address: [address] [place] [address] Result Comment: A. N o Helicobacter pylori organisms are identified. B. ACG guidelines require an endoscopic abnormality that extends at least 1 cm proximal to the gastroesophageal junction in addition to a histologic finding of intestinal metaplasia in order to establish a diagnosis of Matute's esophagus. Correlation with endoscopic findings is recommended. Performed By: #### 6 6121-5 #### [facility] CLIA [id number] [address] [place] [address] LAB CLIA [id number] [address] [place] [address] FINAL DIAGNOSIS Normal [facility] Comment on above: Order Comment: Speci men Type: TISSUE SPECIMEN Ordering Facility: [facility] Address: [address] [place] [address] Result Comment: A. S tomach, biopsy: - [...] EDT Performed By: #### 6 6121-5 #### [facility] CLIA [id number] [address] [place] [address] STATES OF [facility] CLIA [id number] [address] [place] [address] FINAL PERFORMING LAB Normal [facility] Comment on above: Order Comment: Speci men Type: TISSUE SPECIMEN Ordering Facility: [facility] Address: [address] [place] [address] Result Comment: Diag nostic interpretation performed at: [facility], [address] [place] [address] CLIA# [id number] Transit Bus Operator: Young Diaz MD Performed By: #### 6 6121-5 #### [facility] CLIA [id number] [address] [place] [address] [place] [facility] CLIA [id number] [address] [place] [address] [address] [facility] GROSS DESCRIPTION Normal [facility] Comment on above: Order Comment: Speci men Type: TISSUE SPECIMEN Ordering Facility: [facility] Address: [address] [place] [address] Result Comment: A. S tomach, Antrum, Biopsy [...] 2024 4:41 PM Gross examination performed at [facility], [address] [place] [address] Performed By: #### 6 6121-5 #### [facility] CLIA [id number] [address] [place] [address] [place] [facility] CLIA [id number] [address] [place] [address] [place] Upper GI endoscopyon 11-15- [facility] Upper GI endoscopy [facility] Gastrointestinal Endoscopy Patient Name: Margaux Sanderson Procedure [...] 1 week. Procedure Code(s): --- Professional --- 30608, Esophagogastroduoden oscopy, flexible, transoral; with biopsy, single or multiple G0500, Moderate sedation services provided by the same physician or other qualified health care transition manager performing a gastrointestinal endoscopic service that sedation supports, requiring the presence of an independent trained observer to assist in the monitoring of the patient's level of consciousness and physiological status; initial 15 minutes of intra-service time; patient age 5 years or older (additional time may be reported with 48059, as appropriate) 95479, Moderate sedation; each additional 15 minutes intraservice time 04976, Moderate sedation; each additional 15 minutes intraservice time CPT copyright 2020 [employer]. All rights reserved. The codes documented in this report are preliminary and upon battery assembler review may be revised to meet current [...] Initiated O (more content not included)... Normal [facility] XR ABDOMEN 1V SUPINEon 11-15 [...] right lower quadrant and left upper quadrant Pension Consultant: [facility]ITAL[facility] Transcribe Date/Time: Nov 22 2024 4:14P Dictated by : LYLY BOYLE MD This examination was interpreted and the report reviewed and electronically signed by: LYLY BOYLE MD on Nov 22 2024 4:15PM EST [id number] Normal [facility] Radiation Oncology Visiton 0 10-31-2024 Radiation Oncology Visit Normal [facility] Chest WITH Contraston 2024 Chest WITH Contrast Normal [facility] CNPNon 10-15-2024 CNPN Telephone (ASWSTR) MARGAUX SANDERSON ([id number]) 1940 M Date Time Provider Department 10/15/24 [facility] During your visit today, we recorded the following information about you: Debbie rBown 10/15/2024 8:22 AM Signed Patient daughter called and had her father drink the Golytley yesterday because she thought the colonoscopy was on 10/15/24. Please send another Golytley to the pharmacy in [place] for procedure on 11/15/24. Valerie Gaitan APRN.[facility] 10/18/2024 10:49 AM Signed Golytely sent to [facility] in [place]. Allergies As of Date: 10/15/2024 (Not on File) Date Reviewed: 09/30/2024 Reviewed by: Molly Austin RN - Fully Assessed Reason for Visit: Orders [681] Order(s):Order #: [id number] Prescriptions as of 10/18/2024 - peg 3350-Electrolytes [...] Status:Closed by VALERIE GAITAN on 10/18/24 Normal [facility] Abdomen/Pelvis WITH Contrast on 10-02-2024 Abdomen/Pelvis WITH Contrast Normal [facility] CNOVon 09-30-2024 CNOV Office Visit (GENSWS) MARGAUX SANDERSON ([id number]) 1940 Date Time Provider Department 09/30/24 11:30 AM VALERIE GAITAN GENSWS During your visit today, we recorded the following information about you: Temperature Blood pressure Weight Height 97.5 degrees 124/68 53.9 kg 1.702 m Valerie Gaitan APRN.SENIOR [employer] SQL DEVELOPER 09/30/2024 1:52 PM Signed HISTORY AND PHYSICAL [...] upper lobe lung cancer. He follows with [facility]. He completed radiation in 2022. Disease is stable. He has a hx of COPD- uses duoneb daily, but no other inhalers. Is able to walk up steps AND complete activity with no issues Margaux follows with [facility]. Last OV 08/2024. He had a stress test in 2023 EF was 57% AND there was no evidence of ischemia. He CP, SOB, dizziness, palpitations, syncope, edema, recent hospitalizations Margaux has undergone prior endoscopy. Last EGD AND colonoscopy was 01/[address] Machuca at [facility]. Sedation: MAC T he entire duodenum [...] allergy inf (more content not included)... Normal [facility] MR/BMS.BVSon 2024 MR/BMS.BVS Normal [facility] Echocardiogram study reportO rdered By: Rita Alba on 09-20-2024 Study report [facility] [address] [place] [address] Echo Complete 09/19/24 1429 MR#: [id number] Acct: [id number] Name: MARGAUX SANDERSON Rep #:[id number] : 1940 83 From: Rita Alba MD Attending Dr: Dr. Alexander Steiner MD Status: [facility] Ordering Dr: Alexander Steiner MD Date: Location: [facility] Sex: M C Admitted: Reason For [...] Dictated: 09/19/24 1429 Date Transcribed: 09/20/24 1033 Pension Consultant: Signed [facility] Work Phone: Stool Occult Blood iFOBon STOB Positive Normal [facility] Comment on above: Performed By: #### M 100.7900 ####[facility] [address] [place], [address] Stool gastrointestinal hemog lobin detection by immunologic methodOrdered By: Alexander Steiner on 09-20-2024 Lower GI hemoglobin IA Ql (Stl) Positive Abnormal [facility] Echo Completeon 09-19-2024 Echo Complete Normal [facility] PSA,Total - Annual Screenon 09-19-2024 PSA,TOT SCREEN 1.57 ng/mL Normal 0.02-4.00 [facility] Comment on above: Result Comment: This test was performed using the [employer] tPSAmethod. Measured values of a patient??sample can varydepending on the testing procedure used. PSA valuesdetermined on patient samples by different testingprocedures cannot be used interchangeably. If there is achange in PSA assays while monitoring therapy, sequentialtesting should be performed to confirm baseline values. Performed By: #### L 501.9910 ####[facility] [address] [place], [address] Absolute lymphocyte countOrd ered By: Alexander Steiner on 09-16-2024 Lymphocytes Auto (Unsp spec) [#/Vol] 1.04 10*3/uL 0.83-4.51 [facility] Absolute neutrophil countOrd ered By: Alexander Steiner on 09-16-2024 Neutrophils (Bld) [#/Vol] 5.0 10*3/uL 2.0-7.7 [facility] Anion gap in Serum or Plasma Ordered By: Alexander Steiner on 09-16-2024 Anion gap [Moles/Vol] 13 mmol/L 5-15 [facility] Automated lymphocyte count a s percentage of total leukocytesOrdered By: Alexander Steiner on 09-16-2024 Lymphocytes/100 WBC Auto (Unsp spec) 14.6 % Low 19-41 [facility] BUN/creatinine ratioOrdered By: Alexander Steiner on 09-16-2024 Urea nitrogen/Creatinine [Mass ratio] 18.8 mg/mg 10-20 [facility] Basophil percentageOrdered B y: Alexander Steiner on 09-16-2024 Basophils/100 WBC (Bld) 0.8 % 0-1 [facility] Bilirubin, totalOrdered By: Alexander Steiner on 09-16-2024 Bilirubin [Mass/Vol] 0.24 mg/dL 0.00-1.30 [facility] CBC W/Diff, Automatedon 08-26 Absolute Lymph 1.04 X10 3/uL Normal 0.83-4.51 [facility] Comment on above: Performed By: #### L 500.4050, L501.9520, L100.0100, L500.4100, L506.1001 ####[facility] [address] [place], [place], [address] Absolute Neut 5.0 X10 3/uL Normal 2.0-7.7 [facility] Comment on above: Performed By: #### L 500.4050, L501.9520, L100.0100, L500.4100, L506.1001 ####[facility] [address] [place], [address] Basophils/100 WBC (Bld) 0.8 % Normal 0-1 [facility] Comment on above: Performed By: #### L 500.4050, L501.9520, L100.0100, L500.4100, L506.1001 ####[facility] [address] [place], [address] Eosinophils/100 WBC (Bld) 1.4 % Normal 0-5 [facility] Comment on above: Performed By: #### L 500.4050, L501.9520, L100.0100, L500.4100, L506.1001 ####[facility] [address] [place], [address] Erythrocyte distribution width (RBC) [Ratio] 18.0 % High 11.6-14.6 [facility] Comment on above: Performed By: #### L 500.4050, L501.9520, L100.0100, L500.4100, L506.1001 ####[facility] [address] [place], [address] Hematocrit (Bld) [Volume fraction] 34.2 % Low 40-54 [facility] Comment on above: Performed By: #### L 500.4050, L501.9520, L100.0100, L500.4100, L506.1001 ####[facility] [address] [place], [address] Hemoglobin (Bld) [Mass/Vol] 10.2 g/dL Low 13.0-16.5 [facility] Comment on above: Performed By: #### L 500.4050, L501.9520, L100.0100, L500.4100, L506.1001 ####[facility] [address] [place], [address] IG% 0.400 Normal 0.0-0.9 [facility] Comment on above: Result Comment: IG% - Immature Granulocytes (promyelocytes, myelocytes andmetamyelocytes) > 1% indicates that a LEFT SHIFT is Present. Performed By: #### L 500.4050, L501.9520, L100.0100, L500.4100, L506.1001 ####[facility] [address] [place], [address] Lymphocytes/100 WBC (Bld) 14.6 % Low 19-41 [facility] Comment on above: Performed By: #### L 500.4050, L501.9520, L100.0100, L500.4100, L506.1001 ####[facility] [address] [place], [address] MCH (RBC) [Entitic mass] 23.4 pg Low 27.0-32.0 [facility] Comment on above: Performed By: #### L 500.4050, L501.9520, L100.0100, L500.4100, L506.1001 ####[facility] [address] [place], [address] MCHC (RBC) [Mass/Vol] 29.8 g/dL Low 32-36 [facility] Comment on above: Performed By: #### L 500.4050, L501.9520, L100.0100, L500.4100, L506.1001 ####[facility] [address] [place], [address] MCV (RBC) [Entitic vol] 78.4 fL Low 80-94 [facility] Comment on above: Performed By: #### L 500.4050, L501.9520, L100.0100, L500.4100, L506.1001 ####[facility] [address] [place], [address] Monocytes/100 WBC (Bld) 12.7 % High 0-10 [facility] Comment on above: Performed By: #### L 500.4050, L501.9520, L100.0100, L500.4100, L506.1001 ####[facility] [address] [place], [address] Neutrophils/100 WBC (Bld) 70.1 % High 47-70 [facility] Comment on above: Performed By: #### L 500.4050, L501.9520, L100.0100, L500.4100, L506.1001 ####[facility] [address] [place], [address] Nucleated RBC (Bld) [#/Vol] 0 10*3/uL Normal 0-5 [facility] Comment on above: Performed By: #### L 500.4050, L501.9520, L100.0100, L500.4100, L506.1001 ####[facility] [address] [place], [address] Platelet mean volume (Bld) [Entitic vol] 10.3 fL Normal 6.2-12.0 [facility] Comment on above: Performed By: #### L 500.4050, L501.9520, L100.0100, L500.4100, L506.1001 ####[facility] [address] [place], [address] Platelets (Bld) [#/Vol] 300 10*3/uL Normal 150-450 [facility] Comment on above: Performed By: #### L 500.4050, L501.9520, L100.0100, L500.4100, L506.1001 ####[facility] [address] [place], [address] RBC (Bld) [#/Vol] 4.36 10*6/uL Low 4.6-6.2 [facility] Comment on above: Performed By: #### L 500.4050, L501.9520, L100.0100, L500.4100, L506.1001 ####[facility] [address] [place], [address] RDW SD 50.5 fl High 35.1-43.9 [facility] Comment on above: Performed By: #### L 500.4050, L501.9520, L100.0100, L500.4100, L506.1001 ####[facility] [address] [place], [address] WBC (Bld) [#/Vol] 7.1 10*3/uL Normal 4.4-11.0 [facility] Comment on above: Performed By: #### L 500.4050, L501.9520, L100.0100, L500.4100, L506.1001 ####[facility] [address] [place], [address] Calculated very low density lipoprotein (VLDL) cholesterol measurementOrdered By: Alexander Steiner on 09-16-2024 Calculated very low density lipoprotein (VLDL) cholesterol measurement 9 mg/dL 5-40 [facility] Carbon dioxide, total [Moles /volume] in Central venous bloodOrdered By: Alexander Steiner on 09-16-2024 CO2 [Moles/Vol] 21.9 mmol/L 21.0-32.0 [facility] Chloride assayOrdered By: Emmett Steiner on 09-16-2024 Chloride [Moles/Vol] 109 mmol/L High 98-108 [facility] Comprehensive Metabolic Prof ilon 09-16-2024 Albumin [Mass/Vol] 3.9 g/dL Normal 3.4-4.8 [facility] Comment on above: Performed By: #### L 500.4050, L501.9520, L100.0100, L500.4100, L506.1001 ####[facility] [address] [place], [address] Albumin/Globulin [Mass ratio] 1.4 {ratio} Normal 0.9-2.4 [facility] Comment on above: Performed By: #### L 500.4050, L501.9520, L100.0100, L500.4100, L506.1001 ####[facility] [address] [place], [address] ALK PHOS 101 U/L Normal 40-129 [facility] Comment on above: Performed By: #### L 500.4050, L501.9520, L100.0100, L500.4100, L506.1001 ####[facility] [address] [place], [address] ALT [Catalytic activity/Vol] 10 U/L Normal <=46 [facility] Comment on above: Performed By: #### L 500.4050, L501.9520, L100.0100, L500.4100, L506.1001 ####[facility] [address] [place], [address] AST [Catalytic activity/Vol] 16 U/L Normal <=37 [facility] Comment on above: Performed By: #### L 500.4050, L501.9520, L100.0100, L500.4100, L506.1001 ####[facility] [address] [place], [address] Bilirubin [Mass/Vol] 0.24 mg/dL Normal 0.00-1.30 [facility] Comment on above: Performed By: #### L 500.4050, L501.9520, L100.0100, L500.4100, L506.1001 ####[facility] [address] [place], [address] BUN/CRE 18.8 RATIO Normal 10-20 [facility] Comment on above: Performed By: #### L 500.4050, L501.9520, L100.0100, L500.4100, L506.1001 ####[facility] [address] [place], [address] Calcium [Mass/Vol] 9.3 mg/dL Normal 7.6-11.0 [facility] Comment on above: Performed By: #### L 500.4050, L501.9520, L100.0100, L500.4100, L506.1001 ####[facility] [address] [place], [address] Chloride [Moles/Vol] 109 mmol/L High 98-108 [facility] Comment on above: Performed By: #### L 500.4050, L501.9520, L100.0100, L500.4100, L506.1001 ####[facility] [address] [place], [address] CO2 [Moles/Vol] 21.9 mmol/L Normal 21.0-32.0 [facility] Comment on above: Performed By: #### L 500.4050, L501.9520, L100.0100, L500.4100, L506.1001 ####[facility] [address] [place], [address] Creatinine [Mass/Vol] 0.79 mg/dL Normal 0.70-1.20 [facility] Comment on above: Performed By: #### L 500.4050, L501.9520, L100.0100, L500.4100, L506.1001 ####[facility] [address] [place], [address] GAP 13 Normal 5-15 [facility] Comment on above: Performed By: #### L 500.4050, L501.9520, L100.0100, L500.4100, L506.1001 ####[facility] [address] [place], [address] GFR/1.73 sq M.predicted among non-blacks MDRD (S/P/Bld) [Vol rate/Area] 89 mL/min/{1.73_m2} Normal >60 [facility] Comment on above: Result Comment: mL/m in/1.73m2 CKD-EPI Creatinine Equation (2020) Performed By: #### L 500.4050, L501.9520, L100.0100, L500.4100, L506.1001 ####[facility] [address] [place], [address] Globulin (S) [Mass/Vol] 2.7 g/dL Normal 2.2-4.2 [facility] Comment on above: Performed By: #### L 500.4050, L501.9520, L100.0100, L500.4100, L506.1001 ####[facility] [address] [place], [address] Glucose [Mass/Vol] 111 mg/dL High 70-99 [facility] Comment on above: Performed By: #### L 500.4050, L501.9520, L100.0100, L500.4100, L506.1001 ####[facility] [address] [place], [address] Potassium [Moles/Vol] 3.9 mmol/L Normal 3.3-5.1 [facility] Comment on above: Performed By: #### L 500.4050, L501.9520, L100.0100, L500.4100, L506.1001 ####[facility] [address] [place], [address] Sodium [Moles/Vol] 143 mmol/L Normal 133-145 [facility] Comment on above: Performed By: #### L 500.4050, L501.9520, L100.0100, L500.4100, L506.1001 ####[facility] [address] [place], [address] T PROT 6.6 g/dL Normal 5.9-8.4 [facility] Comment on above: Performed By: #### L 500.4050, L501.9520, L100.0100, L500.4100, L506.1001 ####[facility] [address] [place], [address] Urea nitrogen [Mass/Vol] 15 mg/dL Normal 4-19 [facility] Comment on above: Performed By: #### L 500.4050, L501.9520, L100.0100, L500.4100, L506.1001 ####[facility] [address] [place], [address] Eosinophil percentageOrdered By: Alexander Steiner on 09-16-2024 Eosinophils/100 WBC (Bld) 1.4 % 0-5 [facility] Erythrocyte distribution wid th ratioOrdered By: Alexander Jatin on 09-16-2024 Erythrocyte distribution width (RBC) [Ratio] 18.0 % High 11.6-14.6 [facility] Erythrocyte distribution wid th standard deviationOrdered By: Alexander Steiner on 09-16-2024 Erythrocyte distribution width (RBC) [Ratio] 50.5 fl High 35.1-43.9 [facility] Glomerular filtration rate ( GFR) estimation/1.73 sq m using serum, plasma, or whole bOrdered By: Alexander Steiner on 09-16-2024 GFR/1.73 sq M.predicted among non-blacks MDRD (S/P/Bld) [Vol rate/Area] 89 mL/min/{1.73_m2} >60 [facility] Comment on above: mL/min/1.73m2 CKD-EP I Creatinine Equation (2020) Hematocrit Auto (Bld) [Volum e fraction]Ordered By: Alexander Steiner on 09-16-2024 Hematocrit (Bld) [Volume fraction] 34.2 % Low 40-54 [facility] Hemoglobin measurementOrdere d By: Alexander Steiner on 09-16-2024 Hemoglobin (Bld) [Mass/Vol] 10.2 g/dL Low 13.0-16.5 [facility] Immature granulocytes/100 WB C Auto (Bld)Ordered By: Alexander Steiner on 09-16-2024 Immature granulocytes/100 WBC (Bld) 0.400 % 0.0-0.9 [facility] Comment on above: IG% - Immature Granu locytes (promyelocytes, myelocytes and metamyelocytes) > 1% indicates that a LEFT SHIFT is Present. LDL calc ser/plasOrdered By: Alexander Steiner on 09-16-2024 Cholesterol in LDL [Mass/Vol] 58 mg/dL [facility] Comment on above: Lfdudsejjl=364-284 m g/dL & Higher Olqh=076 mg/dL or greater Laboratory - Chemistry and C hemistry - challengeOrdered By: Alexander Steiner on 09-16-2024 AST [Catalytic activity/Vol] 16 U/L <38 [facility] Lipid Profileon 09-16-2024 CHOL:HDL 2.01 Normal [facility] Comment on above: Performed By: #### L 500.4050, L501.9520, L100.0100, L500.4100, L506.1001 ####[facility] [address] [place], [address] Cholesterol [Mass/Vol] 133 mg/dL Normal <=200 [facility] Comment on above: Result Comment: Chol esterol level, Desirable <200 mg/dLBorderline high cholesterol 200-239 mg/dLHigh cholesterol >=240 mg/dLRecommendations of the NCEP Adult Treatment Panel for thefollowing risk-cutoff thresholds for the [place] Americanpulation. Performed By: #### L 500.4050, L501.9520, L100.0100, L500.4100, L506.1001 ####[facility] [address] [place], [address] Cholesterol in HDL [Mass/Vol] 66 mg/dL Normal [facility] Comment on above: Result Comment: Cee onal Cholesterol Education Program (NCEP) guidelines:<40 mg/dL: Low HDL-cholesterol (major risk factor for CHD)>= 60 mg/dL: High HDL-cholesterol (negative risk factor forCHD)HDL-cholesterol is affected by a number of factors, e.g.smoking, exercise, hormones, sex and age. Performed By: #### L 500.4050, L501.9520, L100.0100, L500.4100, L506.1001 ####[facility] [address] [place], [address] Cholesterol in LDL [Mass/Vol] 58 mg/dL Normal [facility] Comment on above: Result Comment: Bord fgrezu=043-168 mg/dL Higher Zjzw=671 mg/dL or greater Performed By: #### L 500.4050, L501.9520, L100.0100, L500.4100, L506.1001 ####[facility] [address] [place], [address] Cholesterol in VLDL [Mass/Vol] 9 mg/dL Normal 5-40 [facility] Comment on above: Performed By: #### L 500.4050, L501.9520, L100.0100, L500.4100, L506.1001 ####[facility] [address] [place], [address] Triglyceride [Mass/Vol] 46 mg/dL Normal [facility] Comment on above: Result Comment: The drugs N-Acetylcysteine and Metamizole may falselydepress this assay.Normal range: <150 mg/dLBorderline High: 150-199 mg/dLHigh: 200-499 mg/dLVery High: >500 mg/dL Performed By: #### L 500.4050, L501.9520, L100.0100, L500.4100, L506.1001 ####[facility] [address] [place], [address] MCV (mean corpuscular volume ) determinationOrdered By: Alexander Steiner on 09-16-2024 MCV (RBC) [Entitic vol] 78.4 fL Low 80-94 [facility] Mean corpuscular hemoglobin (MCH) determinationOrdered By: Alexander Steiner on 09-16-2024 MCH (RBC) [Entitic mass] 23.4 pg Low 27.0-32.0 [facility] Mean corpuscular hemoglobin concentration (MCHC) determinationOrdered By: Alexander Steiner on 09-16-2024 MCHC (RBC) [Mass/Vol] 29.8 g/dL Low 32-36 [facility] Mean platelet volume determi nationOrdered By: Alexander Steiner on 09-16-2024 Platelet mean volume (Bld) [Entitic vol] 10.3 fL 6.2-12.0 [facility] Monocyte percentageOrdered B y: Alexander Steiner on 09-16-2024 Monocytes/100 WBC (Bld) 12.7 % High 0-10 [facility] Neutrophil percentageOrdered By: Alexander Steiner 09-16-2024 Neutrophils/100 WBC (Bld) 70.1 % High 47-70 [facility] Nucleated red blood cell per centageOrdered By: Alexander Steiner on 09-16-2024 Nucleated RBC/100 WBC (Bld) [Ratio] 0 % 0-5 [facility] Platelet countOrdered By: Emmett Steiner on 09-16-2024 Platelets (Bld) [#/Vol] 300 10*3/uL 150-450 [facility] Potassium measurement (mass/ volume)Ordered By: Alexander Steiner 09-16-2024 Potassium (Unsp spec) [Mass/Vol] 3.9 mmol/L 3.3-5.1 [facility] RBC Auto (Bld) [#/Vol]Ordere d By: Alexander Steiner on 09-16-2024 RBC (Bld) [#/Vol] 4.36 10*6/uL Low 4.6-6.2 [facility] Screening total cholesterol/ high density lipoprotein (HDL) cholesterol ratioOrdered By: Alexander Steiner on 09-16-2024 Cholesterol.total/Jeff sterol in HDL [Mass ratio] 2.01 {ratio} [facility] Serum creatinine measurement (mass/volume)Ordered By: Alexander Steiner on 09-16-2024 Creatinine [Mass/Vol] 0.79 mg/dL 0.70-1.20 [facility] Serum globulin measurementOr dered By: Alexander Steiner on 09-16-2024 Globulin (S) [Mass/Vol] 2.7 g/dL 2.2-4.2 [facility] Serum glucose measurement (m ass/volume)Ordered By: Alexander Steiner on 09-16-2024 Glucose [Mass/Vol] 111 mg/dL High 70-99 [facility] Serum or plasma alanine luna otransferase (ALT) measurementOrdered By: Alexander Steiner on 09-16-2024 ALT [Catalytic activity/Vol] 10 U/L <47 [facility] Serum or plasma albumin maddie urement (mass/volume)Ordered By: Alexander Steiner 09-16-2024 Albumin [Mass/Vol] 3.9 g/dL 3.4-4.8 [facility] Serum or plasma albumin/glob ulin mass ratioOrdered By: Alexander Steiner 09-16-2024 Albumin/Globulin [Mass ratio] 1.4 {ratio} 0.9-2.4 [facility] Serum or plasma alkaline cheryl sphatase measurementOrdered By: Alexander Steiner 09-16-2024 ALP [Catalytic activity/Vol] 101 U/L 40-129 [facility] Serum or plasma calcium maddie urement (mass/volume)Ordered By: Alexander Steiner 09-16-2024 Calcium [Mass/Vol] 9.3 mg/dL 7.6-11.0 [facility] Serum or plasma cholesterol in HDL measurement (mass/volume)Ordered By: Alexander Steiner 09-16-2024 Cholesterol in HDL [Mass/Vol] 66 mg/dL >40 [facility] Comment on above: National Cholesterol Education Program (NCEP) guidelines:<40 mg/dL: Low HDL-cholesterol (major risk factor for CHD)>= 60 mg/dL: High HDL-cholesterol (negative risk factor for CHD)HDL-cholesterol is affected by a number of factors, e.g. smoking, exercise, hormones, sex and age. Serum or plasma cholesterol measurement (mass/volume)Ordered By: Alexander Steiner on 09-16-2024 Cholesterol [Mass/Vol] 133 mg/dL <201 [facility] Comment on above: Cholesterol level, D esirable <200 mg/dLBorderline high cholesterol 200-239 mg/dLHigh cholesterol >=240 mg/dLRecommendations of the NCEP Adult Treatment Panel for the following risk-cutoff thresholds for the [place] population. Serum or plasma urea nitroge n measurement (mass/volume)Ordered By: Alexander Steiner on 09-16-2024 Urea nitrogen [Mass/Vol] 15 mg/dL 4-19 [facility] Sodium levelOrdered By: Alexander Steiner on 09-16-2024 Sodium [Moles/Vol] 143 mmol/L 133-145 [facility] TSH DL <= 0.005 mIU/L QnOrde red By: Alexander Steiner on 09-16-2024 TSH Qn 0.074 uIU/mL Low 0.300-4.200 [facility] Thyroid Stim Hormone (TSH)on 09-16-2024 TSH 0.074 uIU/mL Low 0.300-4.200 [facility] Comment on above: Performed By: #### L 500.4050, L501.9520, L100.0100, L500.4100, L506.1001 ####[facility] [address] [place], [place], [address] Total proteinOrdered By: Alexander Steiner on 09-16-2024 Protein [Mass/Vol] 6.6 g/dL 5.9-8.4 [facility] Triglycerides measurementOrd ered By: Alexander Steiner on 09-16-2024 Triglyceride [Mass/Vol] 46 mg/dL <199 [facility] Comment on above: The drugs N-Acetylcy steine and Metamizole may falsely depress this assay. Normal range: <150 mg/dLBorderline High: 150-199 mg/dLHigh: 200-499 mg/dLVery High: >500 mg/dL Vitamin D,25 Hydroxyon 09-16 Vitamin D 25-OH 38.9 ng/mL Normal 30-100 [facility] Comment on above: Result Comment: Snow min D StatusDeficiency: <20 ng/mL (50nmol/L)Insufficiency: 20-30 ng/mL (50-75 nmol/L)Sufficiency: 30-100 ng/mL (75-250 nmol/L)Toxicity: >100 ng/mL (>250 nmol/L) Performed By: #### L 500.4050, L501.9520, L100.0100, L500.4100, L506.1001 ####[facility] [address] [place], [address] White blood cell (WBC) count Ordered By: Alexander Steiner on 09-16-2024 WBC (Bld) [#/Vol] 7.1 10*3/uL 4.4-11.0 [facility] CTA Head AND Neck W/ Contras ton 09-11-2024 CTA Head AND Neck W/ Contrast Normal [facility] Cardiology Visit Reporton Cardiology Visit Report Normal [facility] Electrocardiogram reportOrde red By: Sánchez Pena on 08-26-2024 EKG study [facility] Cardiovascular Services [address] [place] [address] 12 Lead EKG 08/22/24 0917 MR#: [id number] Acct: [id number] Name: MARGAUX SANDERSON Rep #:[id number] : 1940 83 From: Sánchez guerrero MD Attending Dr: Dr. Alexander Steiner MD Status: REG CLI Ordering Dr: Alexander Steiner MD Date: Location: [facility] Sex: M C Admitted: Test Reason : [...] deviation Abnormal ECG Confirmed by Sánchez Pena ([id number]), advertising editor RICARDO PATEL ([id number]) on 08/26/2024 11:30:26 AM Referred By: Alexander Steiner Confirmed By: Sánchez Pena 08/26/24 1130 Date _ Sánchez Pena MD CC: Dr. Alexander Steiner MD ~ Signed [facility] Work Phone: 12 Lead EKGon 08-22-2024 12 Lead EKG Normal [facility] Carotid Duplex Ultrasoundon 08-22-2024 Carotid Duplex Ultrasound Normal [facility] Duplex ultrasound of carotid artery reportOrdered By: Deni Jackson on 08-22-2024 Study report [facility] Cardiovascular Services [address] [place] [address] Carotid Duplex Ultrasound 08/22/24 0928 MR#: [id number] Acct: [id number] Name: MARGAUX SANDERSON Rep #:[id number] : 1940 83 From: Deni Jackson MD Attending Dr: Dr. Alexander Steiner MD Status: REG CLI Ordering Dr: Alexander Steiner MD Date: Location: [facility] Sex: M C Admitted: Reason For [...] color flow and specral Doppler. Carotid Duplex 11442. Exam performed in department. VL/Carotid Duplex Ultrasound [...] ~ Date Dictated: 08/22/24927 Date Transcribed: 08/22/242216 Pension Consultant: Signed [facility] Other Myoglobin, Serumon 5 Myoglobin, Ser 31 ng/mL Normal 28-72 [facility] Comment on above: Result Comment: Perf ormed at: [facility] [address] [id number] Director: Parker Parsons PhD, Phone: [phone] Performed By: #### L 1620.1050, I600.3119, J401.7330, L500.4050, L100.0100 ####[facility] [address] [place], [place], [id number] Absolute lymphocyte countOrd ered By: Alexander Steiner on 08-12-2024 Lymphocytes Auto (Unsp spec) [#/Vol] 0.94 10*3/uL 0.83-4.51 [facility] Absolute neutrophil countOrd ered By: Alexander Steiner on 08-12-2024 Neutrophils (Bld) [#/Vol] 4.3 10*3/uL 2.0-7.7 [facility] Anion gap in Serum or Plasma Ordered By: Alexander Steiner on 08-12-2024 Anion gap [Moles/Vol] 11 mmol/L 5- [facility] Automated lymphocyte count a s percentage of total leukocytesOrdered By: Alexander Steiner on 08-12-2024 Lymphocytes/100 WBC Auto (Unsp spec) 15.0 % Low [facility] BUN/creatinine ratioOrdered By: Alexander Steiner on 08-12-2024 Urea nitrogen/Creatinine [Mass ratio] 17.0 mg/mg 10- [facility] Basophil percentageOrdered B y: Alexander Steiner on 08-12-2024 Basophils/100 WBC (Bld) 1.4 % High 0-1 [facility] Bilirubin, totalOrdered By: Alexander Steiner on 08-12-2024 Bilirubin [Mass/Vol] 0.43 mg/dL 0.00-1.30 [facility] CBC W/Diff, Automatedon 07-25 Absolute Lymph 0.94 X10 3/uL Normal 0.83-4.51 [facility] Comment on above: Performed By: #### L 3600.5100, L501.4021, L501.3620, L500.4050, L100.0100 ####[facility] [address] [place], [place], [id number] Absolute Neut 4.3 X10 3/uL Normal 2.0-7.7 [facility] Comment on above: Performed By: #### L 3600.5100, L501.4021, L501.3620, L500.4050, L100.0100 ####[facility] [address] [place], [address] Basophils/100 WBC (Bld) 1.4 % High 0-1 [facility] Comment on above: Performed By: #### L 3600.5100, L501.4021, L501.3620, L500.4050, L100.0100 ####[facility] [address] [place], [address] Eosinophils/100 WBC (Bld) 2.1 % Normal 0-5 [facility] Comment on above: Performed By: #### L 3600.5100, L501.4021, L501.3620, L500.4050, L100.0100 ####[facility] [address] [place], [address] Erythrocyte distribution width (RBC) [Ratio] 17.2 % High 11.6-14.6 [facility] Comment on above: Performed By: #### L 3600.5100, L501.4021, L501.3620, L500.4050, L100.0100 ####[facility] [address] [place], [address] Hematocrit (Bld) [Volume fraction] 36.3 % Low 40-54 [facility] Comment on above: Performed By: #### L 3600.5100, L501.4021, L501.3620, L500.4050, L100.0100 ####[facility] [address] [place], [address] Hemoglobin (Bld) [Mass/Vol] 11.2 g/dL Low 13.0-16.5 [facility] Comment on above: Performed By: #### L 3600.5100, L501.4021, L501.3620, L500.4050, L100.0100 ####[facility] [address] [place], [address] IG% 0.300 Normal 0.0-0.9 [facility] Comment on above: Result Comment: IG% - Immature Granulocytes (promyelocytes, myelocytes andmetamyelocytes) > 1% indicates that a LEFT SHIFT is Present. Performed By: #### L 3600.5100, L501.4021, L501.3620, L500.4050, L100.0100 ####[facility] [address] [place], [address] Lymphocytes/100 WBC (Bld) 15.0 % Low 19-41 [facility] Comment on above: Performed By: #### L 3600.5100, L501.4021, L501.3620, L500.4050, L100.0100 ####[facility] [address] [place], [address] MCH (RBC) [Entitic mass] 24.3 pg Low 27.0-32.0 [facility] Comment on above: Performed By: #### L 3600.5100, L501.4021, L501.3620, L500.4050, L100.0100 ####[facility] [address] [place], [address] MCHC (RBC) [Mass/Vol] 30.9 g/dL Low 32-36 [facility] Comment on above: Performed By: #### L 3600.5100, L501.4021, L501.3620, L500.4050, L100.0100 ####[facility] [address] [place], [address] MCV (RBC) [Entitic vol] 78.9 fL Low 80-94 [facility] Comment on above: Performed By: #### L 3600.5100, L501.4021, L501.3620, L500.4050, L100.0100 ####[facility] [address] [place], [address] Monocytes/100 WBC (Bld) 12.1 % High 0-10 [facility] Comment on above: Performed By: #### L 3600.5100, L501.4021, L501.3620, L500.4050, L100.0100 ####[facility] [address] [place], [address] Neutrophils/100 WBC (Bld) 69.1 % Normal 47-70 [facility] Comment on above: Performed By: #### L 3600.5100, L501.4021, L501.3620, L500.4050, L100.0100 ####[facility] [address] [place], [address] Nucleated RBC (Bld) [#/Vol] 0 10*3/uL Normal 0-5 [facility] Comment on above: Performed By: #### L 3600.5100, L501.4021, L501.3620, L500.4050, L100.0100 ####[facility] [address] [place], [address] Platelet mean volume (Bld) [Entitic vol] 10.9 fL Normal 6.2-12.0 [facility] Comment on above: Performed By: #### L 3600.5100, L501.4021, L501.3620, L500.4050, L100.0100 ####[facility] [address] [place], [address] Platelets (Bld) [#/Vol] 325 10*3/uL Normal 150-450 [facility] Comment on above: Performed By: #### L 3600.5100, L501.4021, L501.3620, L500.4050, L100.0100 ####[facility] [address] [place], [address] RBC (Bld) [#/Vol] 4.60 10*6/uL Normal 4.6-6.2 [facility] Comment on above: Performed By: #### L 3600.5100, L501.4021, L501.3620, L500.4050, L100.0100 ####[facility] [address] [place], [address] RDW SD 49.9 fl High 35.1-43.9 [facility] Comment on above: Performed By: #### L 3600.5100, L501.4021, L501.3620, L500.4050, L100.0100 ####[facility] [address] [place], [address] WBC (Bld) [#/Vol] 6.3 10*3/uL Normal 4.4-11.0 [facility] Comment on above: Performed By: #### L 3600.5100, L501.4021, L501.3620, L500.4050, L100.0100 ####[facility] [address] [place], [address] CPK Total, Creatine Kinaseon 08-12-2024 CPK TOTAL 57 U/L Normal 24-195 [facility] Comment on above: Performed By: #### L 3600.5100, L501.4021, L501.3620, L500.4050, L100.0100 ####[facility] [address] [place], [address] Carbon dioxide, total [Moles /volume] in Central venous bloodOrdered By: Alexander Steiner on 08-12-2024 CO2 [Moles/Vol] 22.4 mmol/L 21.0-32.0 [facility] Chloride assayOrdered By: Emmett Steiner on 08-12-2024 Chloride [Moles/Vol] 107 mmol/L 98-108 [facility] Comprehensive Metabolic Prof ilon 08-12-2024 Albumin [Mass/Vol] 4.0 g/dL Normal 3.4-4.8 [facility] Comment on above: Performed By: #### L 3600.5100, L501.4021, L501.3620, L500.4050, L100.0100 ####[facility] [address] [place], [address] Albumin/Globulin [Mass ratio] 1.4 {ratio} Normal 0.9-2.4 [facility] Comment on above: Performed By: #### L 3600.5100, L501.4021, L501.3620, L500.4050, L100.0100 ####[facility] [address] [place], [address] ALK PHOS 114 U/L Normal 40-129 [facility] Comment on above: Performed By: #### L 3600.5100, L501.4021, L501.3620, L500.4050, L100.0100 ####[facility] [address] [place], [address] ALT [Catalytic activity/Vol] 8 U/L Normal <=46 [facility] Comment on above: Performed By: #### L 3600.5100, L501.4021, L501.3620, L500.4050, L100.0100 ####[facility] [address] [place], [address] AST [Catalytic activity/Vol] 17 U/L Normal <=37 [facility] Comment on above: Performed By: #### L 3600.5100, L501.4021, L501.3620, L500.4050, L100.0100 ####[facility] [address] [place], [address] Bilirubin [Mass/Vol] 0.43 mg/dL Normal 0.00-1.30 [facility] Comment on above: Performed By: #### L 3600.5100, L501.4021, L501.3620, L500.4050, L100.0100 ####[facility] [address] [place], [address] BUN/CRE 17.0 RATIO Normal 10-20 [facility] Comment on above: Performed By: #### L 3600.5100, L501.4021, L501.3620, L500.4050, L100.0100 ####[facility] [address] [place], [address] Calcium [Mass/Vol] 9.5 mg/dL Normal 7.6-11.0 [facility] Comment on above: Performed By: #### L 3600.5100, L501.4021, L501.3620, L500.4050, L100.0100 ####[facility] [address] [place], [address] Chloride [Moles/Vol] 107 mmol/L Normal 98-108 [facility] Comment on above: Performed By: #### L 3600.5100, L501.4021, L501.3620, L500.4050, L100.0100 ####[facility] [address] [place], [address] CO2 [Moles/Vol] 22.4 mmol/L Normal 21.0-32.0 [facility] Comment on above: Performed By: #### L 3600.5100, L501.4021, L501.3620, L500.4050, L100.0100 ####[facility] [address] [place], [address] Creatinine [Mass/Vol] 0.74 mg/dL Normal 0.70-1.20 [facility] Comment on above: Performed By: #### L 3600.5100, L501.4021, L501.3620, L500.4050, L100.0100 ####[facility] [address] [place], [address] GAP 11 Normal 5-15 [facility] Comment on above: Performed By: #### L 3600.5100, L501.4021, L501.3620, L500.4050, L100.0100 ####[facility] [address] [place], [address] GFR/1.73 sq M.predicted among non-blacks MDRD (S/P/Bld) [Vol rate/Area] 91 mL/min/{1.73_m2} Normal >60 [facility] Comment on above: Result Comment: mL/m in/1.73m2 CKD-EPI Creatinine Equation (2020) Performed By: #### L 3600.5100, L501.4021, L501.3620, L500.4050, L100.0100 ####[facility] [address] [place], [address] Globulin (S) [Mass/Vol] 2.8 g/dL Normal 2.2-4.2 [facility] Comment on above: Performed By: #### L 3600.5100, L501.4021, L501.3620, L500.4050, L100.0100 ####[facility] [address] [place], [address] Glucose [Mass/Vol] 99 mg/dL Normal 70-99 [facility] Comment on above: Performed By: #### L 3600.5100, L501.4021, L501.3620, L500.4050, L100.0100 ####[facility] [address] [place], [address] Potassium [Moles/Vol] 3.7 mmol/L Normal 3.3-5.1 [facility] Comment on above: Performed By: #### L 3600.5100, L501.4021, L501.3620, L500.4050, L100.0100 ####[facility] [address] [place], [address] Sodium [Moles/Vol] 140 mmol/L Normal 133-145 [facility] Comment on above: Performed By: #### L 3600.5100, L501.4021, L501.3620, L500.4050, L100.0100 ####[facility] [address] [place], [address] T PROT 6.9 g/dL Normal 5.9-8.4 [facility] Comment on above: Performed By: #### L 3600.5100, L501.4021, L501.3620, L500.4050, L100.0100 ####[facility] [address] [place], [address] Urea nitrogen [Mass/Vol] 13 mg/dL Normal 4-19 [facility] Comment on above: Performed By: #### L 3600.5100, L501.4021, L501.3620, L500.4050, L100.0100 ####[facility] [address] [place], [address] Eosinophil percentageOrdered By: Alexander Steiner on 08-12-2024 Eosinophils/100 WBC (Bld) 2.1 % 0-5 [facility] Erythrocyte distribution wid th ratioOrdered By: Alexander Steiner on 08-12-2024 Erythrocyte distribution width (RBC) [Ratio] 17.2 % High 11.6-14.6 [facility] Erythrocyte distribution wid th standard deviationOrdered By: Alexander Jatin on 08-12-2024 Erythrocyte distribution width (RBC) [Ratio] 49.9 fl High 35.1-43.9 [facility] Glomerular filtration rate ( GFR) estimation/1.73 sq m using serum, plasma, or whole bOrdered By: Alexander Steiner on 08-12-2024 GFR/1.73 sq M.predicted among non-blacks MDRD (S/P/Bld) [Vol rate/Area] 91 mL/min/{1.73_m2} >60 [facility] Comment on above: mL/min/1.73m2 CKD-EP I Creatinine Equation (2020) Hematocrit Auto (Bld) [Volum e fraction]Ordered By: Alexander Steiner on 08-12-2024 Hematocrit (Bld) [Volume fraction] 36.3 % Low 40-54 [facility] Hemoglobin measurementOrdere d By: Alexander Steiner on 08-12-2024 Hemoglobin (Bld) [Mass/Vol] 11.2 g/dL Low 13.0-16.5 [facility] Immature granulocytes/100 WB C Auto (Bld)Ordered By: Alexander Steiner on 08-12-2024 Immature granulocytes/100 WBC (Bld) 0.300 % 0.0-0.9 [facility] Comment on above: IG% - Immature Granu locytes (promyelocytes, myelocytes and metamyelocytes) > 1% indicates that a LEFT SHIFT is Present. L501.4021on 08-12-2024 Trop T High Sen 15 ng/L Normal <=22 [facility] Comment on above: Performed By: #### L 3600.5100, L501.4021, L501.3620, L500.4050, L100.0100 ####[facility] [address] [place], [place], [id number] Laboratory - Chemistry and C hemistry - challengeOrdered By: Alexander Steiner on 08-12-2024 AST [Catalytic activity/Vol] 17 U/L <38 [facility] MCV (mean corpuscular volume ) determinationOrdered By: Alexander Steiner on 08-12-2024 MCV (RBC) [Entitic vol] 78.9 fL Low 80-94 [facility] Mean corpuscular hemoglobin (MCH) determinationOrdered By: Alexander Steiner 08-12-2024 MCH (RBC) [Entitic mass] 24.3 pg Low 27.0-32.0 [facility] Mean corpuscular hemoglobin concentration (MCHC) determinationOrdered By: Alexander Steiner 08-12-2024 MCHC (RBC) [Mass/Vol] 30.9 g/dL Low 32-36 [facility] Mean platelet volume determi nationOrdered By: Alexander Steiner on 08-12-2024 Platelet mean volume (Bld) [Entitic vol] 10.9 fL 6.2-12.0 [facility] Monocyte percentageOrdered B y: Alexander Steiner on 08-12-2024 Monocytes/100 WBC (Bld) 12.1 % High 0-10 [facility] Neutrophil percentageOrdered By: Alexander Steiner on 08-12-2024 Neutrophils/100 WBC (Bld) 69.1 % 47-70 [facility] Nucleated red blood cell per centageOrdered By: Alexander Steiner on 08-12-2024 Nucleated RBC/100 WBC (Bld) [Ratio] 0 % 0-5 [facility] Platelet countOrdered By: Emmett Steiner on 08-12-2024 Platelets (Bld) [#/Vol] 325 10*3/uL 150-450 [facility] Potassium measurement (mass/ volume)Ordered By: Alexander Steiner on 08-12-2024 Potassium (Unsp spec) [Mass/Vol] 3.7 mmol/L 3.3-5.1 [facility] RBC Auto (Bld) [#/Vol]Ordere d By: Alexander Steiner on 08-12-2024 RBC (Bld) [#/Vol] 4.60 10*6/uL 4.6-6.2 [facility] Serum creatinine measurement (mass/volume)Ordered By: Alexander Steiner on 08-12-2024 Creatinine [Mass/Vol] 0.74 mg/dL 0.70-1.20 [facility] Serum globulin measurementOr dered By: Alexander Steiner on 08-12-2024 Globulin (S) [Mass/Vol] 2.8 g/dL 2.2-4.2 [facility] Serum glucose measurement (m ass/volume)Ordered By: Alexander Steiner on 08-12-2024 Glucose [Mass/Vol] 99 mg/dL 70-99 [facility] Serum myoglobin measurementO rdered By: Alexander Steiner on 08-12-2024 Myoglobin [Mass/Vol] 31 ng/mL 28-72 [facility] Comment on above: Performed at: [facility] [address] [id number] Director: Parker Parsons PhD, Phone: [phone] Serum or plasma alanine luna otransferase (ALT) measurementOrdered By: Alexander Steiner on 08-12-2024 ALT [Catalytic activity/Vol] 8 U/L <47 [facility] Serum or plasma albumin maddie urement (mass/volume)Ordered By: Alexander Steiner on 08-12-2024 Albumin [Mass/Vol] 4.0 g/dL 3.4-4.8 [facility] Serum or plasma albumin/glob ulin mass ratioOrdered By: Alexander Steiner 08-12-2024 Albumin/Globulin [Mass ratio] 1.4 {ratio} 0.9-2.4 [facility] Serum or plasma alkaline cheryl sphatase measurementOrdered By: Alexander Steiner 08-12-2024 ALP [Catalytic activity/Vol] 114 U/L 40-129 [facility] Serum or plasma calcium madide urement (mass/volume)Ordered By: Alexander Steiner 08-12-2024 Calcium [Mass/Vol] 9.5 mg/dL 7.6-11.0 [facility] Serum or plasma creatine kin ase activityOrdered By: Alexander Steiner 08-12-2024 CK [Catalytic activity/Vol] 57 U/L 24-195 [facility] Serum or plasma urea nitroge n measurement (mass/volume)Ordered By: Alexander Steiner 08-12-2024 Urea nitrogen [Mass/Vol] 13 mg/dL 4-19 [facility] Sodium levelOrdered By: Alexander Steiner 08-12-2024 Sodium [Moles/Vol] 140 mmol/L 133-145 [facility] Total proteinOrdered By: Alexander Steiner 08-12-2024 Protein [Mass/Vol] 6.9 g/dL 5.9-8.4 [facility] Troponin T.cardiac [Mass/vol ume] in Serum or Plasma by High sensitivity methodOrdered By: Alexander Steiner 08-12-2024 Troponin T.cardiac High sensitivity method [Mass/Vol] 15 ng/L <22 [facility] White blood cell (WBC) count Ordered By: Alexander Steiner 08-12-2024 WBC (Bld) [#/Vol] 6.3 10*3/uL 4.4-11.0 [facility] Radiation Oncology Visiton 0 07-08-2024 Radiation Oncology Visit Normal [facility] Chest WITH Contraston 2024 Chest WITH Contrast Normal [facility] Chest PA and Lateralon 05-28 Chest PA and Lateral Normal [facility] Influenza virus A and B and SARS-CoV-2 (COVID-19) and Respiratory syncytial virus RNAOrdered By: Alexander Jatin on 05-28-2024 SARS-CoV-2 (COVID-19) RNA JOHNNIE+probe Ql (Unsp spec) SARS-CoV-2 (COVID 19 PCR) Abnormal [facility] M100.678on 05-28-2024 M100.678 Normal [facility] Comment on above: Performed By: #### M 100.678 ####[facility] [address] [place], [place], [id number] Absolute lymphocyte countOrd ered By: Micah Jimenez on 05-14-2024 Lymphocytes Auto (Unsp spec) [#/Vol] 1.31 10*3/uL 0.83-4.51 [facility] Absolute neutrophil countOrd ered By: Micah Jimenez on 05-14-2024 Neutrophils (Bld) [#/Vol] 3.7 10*3/uL 2.0-7.7 [facility] Automated lymphocyte count a s percentage of total leukocytesOrdered By: Micah Jimenez on 05-14-2024 Lymphocytes/100 WBC Auto (Unsp spec) 21.5 % 19-41 [facility] Basophil percentageOrdered B y: Micah Jimenez on 05-14-2024 Basophils/100 WBC (Bld) 0.5 % 0-1 [facility] CBC W/Diff, Automatedon 04-27 Absolute Lymph 1.31 X10 3/uL Normal 0.83-4.51 [facility] Comment on above: Performed By: #### L 100.0100 ####[facility] [address] [place], [place], [id number] Absolute Neut 3.7 X10 3/uL Normal 2.0-7.7 [facility] Comment on above: Performed By: #### L 100.0100 ####[facility] [address] [place], [address] Basophils/100 WBC (Bld) 0.5 % Normal 0-1 [facility] Comment on above: Performed By: #### L 100.0100 ####[facility] [address] [place], [address] Eosinophils/100 WBC (Bld) 2.0 % Normal 0-5 [facility] Comment on above: Performed By: #### L 100.0100 ####[facility] [address] [place], [address] Erythrocyte distribution width (RBC) [Ratio] 16.7 % High 11.6-14.6 [facility] Comment on above: Performed By: #### L 100.0100 ####[facility] [address] [place], [address] Hematocrit (Bld) [Volume fraction] 38.4 % Low 40-54 [facility] Comment on above: Performed By: #### L 100.0100 ####[facility] [address] [place], [address] Hemoglobin (Bld) [Mass/Vol] 11.9 g/dL Low 13.0-16.5 [facility] Comment on above: Performed By: #### L 100.0100 ####[facility] [address] [place], [address] IG% 0.300 Normal 0.0-0.9 [facility] Comment on above: Result Comment: IG% - Immature Granulocytes (promyelocytes, myelocytes andmetamyelocytes) > 1% indicates that a LEFT SHIFT is Present. Performed By: #### L 100.0100 ####[facility] [address] [place], [address] Lymphocytes/100 WBC (Bld) 21.5 % Normal 19-41 [facility] Comment on above: Performed By: #### L 100.0100 ####[facility] [address] [place], [address] MCH (RBC) [Entitic mass] 26.4 pg Low 27.0-32.0 [facility] Comment on above: Performed By: #### L 100.0100 ####[facility] [address] [place], [address] MCHC (RBC) [Mass/Vol] 31.0 g/dL Low 32-36 [facility] Comment on above: Performed By: #### L 100.0100 ####[facility] [address] [place], [address] MCV (RBC) [Entitic vol] 85.1 fL Normal 80-94 [facility] Comment on above: Performed By: #### L 100.0100 ####[facility] [address] [place], [address] Monocytes/100 WBC (Bld) 14.6 % High 0-10 [facility] Comment on above: Performed By: #### L 100.0100 ####[facility] [address] [place], [address] Neutrophils/100 WBC (Bld) 61.1 % Normal 47-70 [facility] Comment on above: Performed By: #### L 100.0100 ####[facility] [address] [place], [address] Nucleated RBC (Bld) [#/Vol] 0 10*3/uL Normal 0-5 [facility] Comment on above: Performed By: #### L 100.0100 ####[facility] [address] [place], [address] Platelet mean volume (Bld) [Entitic vol] 9.8 fL Normal 6.2-12.0 [facility] Comment on above: Performed By: #### L 100.0100 ####[facility] [address] [place], [address] Platelets (Bld) [#/Vol] 341 10*3/uL Normal 150-450 [facility] Comment on above: Performed By: #### L 100.0100 ####[facility] [address] [place], [address] RBC (Bld) [#/Vol] 4.51 10*6/uL Low 4.6-6.2 [facility] Comment on above: Performed By: #### L 100.0100 ####[facility] [address] [place], [address] RDW SD 52.6 fl High 35.1-43.9 [facility] Comment on above: Performed By: #### L 100.0100 ####[facility] [address] [place], [address] WBC (Bld) [#/Vol] 6.1 10*3/uL Normal 4.4-11.0 [facility] Comment on above: Performed By: #### L 100.0100 ####[facility] [address] [place], [address] Eosinophil percentageOrdered By: Micah Jimenez on 05-14-2024 Eosinophils/100 WBC (Bld) 2.0 % 0-5 [facility] Erythrocyte distribution wid th ratioOrdered By: Micah Jimenez on 05-14-2024 Erythrocyte distribution width (RBC) [Ratio] 16.7 % High 11.6-14.6 [facility] Erythrocyte distribution wid th standard deviationOrdered By: Micah Jimenez on 05-14-2024 Erythrocyte distribution width (RBC) [Entitic vol] 52.6 fL High 35.1-43.9 [facility] Erythrocyte distribution width (RBC) [Ratio] 52.6 fl High 35.1-43.9 [facility] Hematocrit Auto (Bld) [Volum e fraction]Ordered By: Micah Jimenez on 05-14-2024 Hematocrit (Bld) [Volume fraction] 38.4 % Low 40-54 [facility] Hemoglobin measurementOrdere d By: Micah Jimenez on 05-14-2024 Hemoglobin (Bld) [Mass/Vol] 11.9 g/dL Low 13.0-16.5 [facility] Immature granulocytes/100 WB C Auto (Bld)Ordered By: Micah Jimenez on 05-14-2024 Immature granulocytes/100 WBC (Bld) 0.300 % 0.0-0.9 [facility] Comment on above: IG% - Immature Granu locytes (promyelocytes, myelocytes and metamyelocytes) > 1% indicates that a LEFT SHIFT is Present. Lymphocytes Auto (Unsp spec) [#/Vol]Ordered By: Micah Jimenez on 05-14-2024 Lymphocytes (Bld) [#/Vol] 1.31 10*3/uL 0.83-4.51 [facility] Lymphocytes/100 WBC Auto (Un sp spec)Ordered By: Micah Jimenez on 05-14-2024 Lymphocytes/100 WBC (Bld) 21.5 % 19-41 [facility] MCV (mean corpuscular volume ) determinationOrdered By: Micah Jimenez on 05-14-2024 MCV (RBC) [Entitic vol] 85.1 fL 80-94 [facility] Mean corpuscular hemoglobin (MCH) determinationOrdered By: Micah Jimenez on 05-14-2024 MCH (RBC) [Entitic mass] 26.4 pg Low 27.0-32.0 [facility] Mean corpuscular hemoglobin concentration (MCHC) determinationOrdered By: Micah Jimenez on 05-14-2024 MCHC (RBC) [Mass/Vol] 31.0 g/dL Low 32-36 [facility] Mean platelet volume determi nationOrdered By: Micah Jimenez on 05-14-2024 Platelet mean volume (Bld) [Entitic vol] 9.8 fL 6.2-12.0 [facility] Monocyte percentageOrdered B y: Micah Jimenez on 05-14-2024 Monocytes/100 WBC (Bld) 14.6 % High 0-10 [facility] Neutrophil percentageOrdered By: Micah Jimenez on 05-14-2024 Neutrophils/100 WBC (Bld) 61.1 % 47-70 [facility] Nucleated red blood cell per centageOrdered By: Micah Jimenez on 05-14-2024 Nucleated RBC/100 WBC (Bld) [Ratio] 0 % 0-5 [facility] Platelet countOrdered By: Effie Jimenez on 05-14-2024 Platelets (Bld) [#/Vol] 341 10*3/uL 150-450 [facility] RBC Auto (Bld) [#/Vol]Ordere d By: Micah Jimenez on 05-14-2024 RBC (Bld) [#/Vol] 4.51 10*6/uL Low 4.6-6.2 [facility] White blood cell (WBC) count Ordered By: Micah Jimenez on 05-14-2024 WBC (Bld) [#/Vol] 6.1 10*3/uL 4.4-11.0 [facility] Chest PA and Lateralon 04-12 Chest PA and Lateral Normal [facility] Influenza virus A and B and SARS-CoV-2 (COVID-19) and Respiratory syncytial virus RNAOrdered By: Alexander Steiner on 04-12-2024 SARS-CoV-2 (COVID-19) RNA JOHNNIE+probe Ql (Unsp spec) [facility] M100.678on 04-12-2024 M100.678 Pending SARS-CoV-2 (COVID 19) Negative INFLUENZA A Negative INFLUENZA B Negative RSV PCR Negative Normal [facility] Comment on above: Performed By: #### M 100.678 ####[facility] [address] [place], [address] Influenza virus A and B and SARS-CoV-2 (COVID-19) and Respiratory syncytial virus RNAOrdered By: Alexander Steiner on 03-26-2024 SARS-CoV-2 (COVID-19) RNA JOHNNIE+probe Ql (Unsp spec) [facility] M100.678on 03-26-2024 M100.678 Pending SARS-CoV-2 (COVID 19) Negative INFLUENZA A Negative INFLUENZA B Negative RSV PCR Negative Normal [facility] Comment on above: Performed By: #### M 100.678 ####[facility] [address] [place], [place], [id number] 20-NO-Wxnjotd DOrdered By: Brandi Steiner on 03-06-2024 Vitamin D 25-Hydroxy 27.4 ng/mL [facility] Comment on above: Vitamin D 25(OH) Sta tus Range Deficiency <20 ng/mL (50nmol/L) Insufficiency 20 - 30 ng/mL (50 - 75 nmol/L) Sufficiency 30 - 100 ng/mL (75 - 250 nmol/L) Toxicity >100 ng/mL (>250 nmol/L) Absolute neutrophil countOrd ered By: Alexander Steienr on 03-06-2024 Neutrophils (Bld) [#/Vol] 6.5 10*3/uL 2.0-7.7 [facility] Albumin to globulin ratioOrd ered By: Alexander Steiner on 03-06-2024 Albumin/Globulin [Mass ratio] 0.9 {ratio} 0.9-2.4 [facility] Basophil percentageOrdered B y: Alexander Steiner on 03-06-2024 Basophils/100 WBC (Bld) 0.9 % 0-1 [facility] Bilirubin, totalOrdered By: Alexander Steiner on 03-06-2024 Bilirubin [Mass/Vol] 0.70 mg/dL 0.20-1.00 [facility] Comment on above: For patients on eltr ombopag therapy, use of Dimension [place] TBIL is not recommended. Blood urea nitrogen (BUN)/cr eatinine ratioOrdered By: Alexander Steiner on 03-06-2024 Urea nitrogen/Creatinine [Mass ratio] 15.6 mg/mg 10-20 [facility] CBC W/Diff, Automatedon 02-24 Absolute Lymph 1.02 X10 3/uL Normal 0.83-4.51 [facility] Comment on above: Performed By: #### L 506.1000, L500.4100, L501.9520, L100.0100, L500.4050 ####[facility] [address] [place], [address] Absolute Neut 6.5 X10 3/uL Normal 2.0-7.7 [facility] Comment on above: Performed By: #### L 506.1000, L500.4100, L501.9520, L100.0100, L500.4050 ####[facility] [address] [place], [address] Basophils/100 WBC (Bld) 0.9 % Normal 0-1 [facility] Comment on above: Performed By: #### L 506.1000, L500.4100, L501.9520, L100.0100, L500.4050 ####[facility] [address] [place], [address] Eosinophils/100 WBC (Bld) 1.2 % Normal 0-5 [facility] Comment on above: Performed By: #### L 506.1000, L500.4100, L501.9520, L100.0100, L500.4050 ####[facility] [address] [place], [address] Erythrocyte distribution width (RBC) [Ratio] 18.6 % High 11.6-14.6 [facility] Comment on above: Performed By: #### L 506.1000, L500.4100, L501.9520, L100.0100, L500.4050 ####[facility] [address] [place], [address] Hematocrit (Bld) [Volume fraction] 40.9 % Normal 40-54 [facility] Comment on above: Performed By: #### L 506.1000, L500.4100, L501.9520, L100.0100, L500.4050 ####[facility] [address] [place], [address] Hemoglobin (Bld) [Mass/Vol] 13.1 g/dL Normal 13.0-16.5 [facility] Comment on above: Performed By: #### L 506.1000, L500.4100, L501.9520, L100.0100, L500.4050 ####[facility] [address] [place], [address] IG% 0.600 Normal 0.0-0.9 [facility] Comment on above: Result Comment: IG% - Immature Granulocytes (promyelocytes, myelocytes andmetamyelocytes) > 1% indicates that a LEFT SHIFT is Present. Performed By: #### L 506.1000, L500.4100, L501.9520, L100.0100, L500.4050 ####[facility] [address] [place], [address] Lymphocytes/100 WBC (Bld) 12.1 % Low 19-41 [facility] Comment on above: Performed By: #### L 506.1000, L500.4100, L501.9520, L100.0100, L500.4050 ####[facility] [address] [place], [address] MCH (RBC) [Entitic mass] 26.7 pg Low 27.0-32.0 [facility] Comment on above: Performed By: #### L 506.1000, L500.4100, L501.9520, L100.0100, L500.4050 ####[facility] [address] [place], [address] MCHC (RBC) [Mass/Vol] 32.0 g/dL Normal 32-36 [facility] Comment on above: Performed By: #### L 506.1000, L500.4100, L501.9520, L100.0100, L500.4050 ####[facility] [address] [place], [address] MCV (RBC) [Entitic vol] 83.3 fL Normal 80-94 [facility] Comment on above: Performed By: #### L 506.1000, L500.4100, L501.9520, L100.0100, L500.4050 ####[facility] [address] [place], [address] Monocytes/100 WBC (Bld) 8.9 % Normal 0-10 [facility] Comment on above: Performed By: #### L 506.1000, L500.4100, L501.9520, L100.0100, L500.4050 ####[facility] [address] [place], [address] Neutrophils/100 WBC (Bld) 76.3 % High 47-70 [facility] Comment on above: Performed By: #### L 506.1000, L500.4100, L501.9520, L100.0100, L500.4050 ####[facility] [address] [place], [address] Nucleated RBC (Bld) [#/Vol] 0 10*3/uL Normal 0-5 [facility] Comment on above: Performed By: #### L 506.1000, L500.4100, L501.9520, L100.0100, L500.4050 ####[facility] [address] [place], [address] Platelet mean volume (Bld) [Entitic vol] 10.0 fL Normal 6.2-12.0 [facility] Comment on above: Performed By: #### L 506.1000, L500.4100, L501.9520, L100.0100, L500.4050 ####[facility] [address] [place], [address] Platelets (Bld) [#/Vol] 288 10*3/uL Normal 150-450 [facility] Comment on above: Performed By: #### L 506.1000, L500.4100, L501.9520, L100.0100, L500.4050 ####[facility] [address] [place], [address] RBC (Bld) [#/Vol] 4.91 10*6/uL Normal 4.6-6.2 [facility] Comment on above: Performed By: #### L 506.1000, L500.4100, L501.9520, L100.0100, L500.4050 ####[facility] [address] [place], [address] RDW SD 55.6 fl High 35.1-43.9 [facility] Comment on above: Performed By: #### L 506.1000, L500.4100, L501.9520, L100.0100, L500.4050 ####[facility] [address] [place], [address] WBC (Bld) [#/Vol] 8.5 10*3/uL Normal 4.4-11.0 [facility] Comment on above: Performed By: #### L 506.1000, L500.4100, L501.9520, L100.0100, L500.4050 ####[facility] [address] [place], [address] Carbon dioxide measurementOr dered By: Alexander Steiner on 03-06-2024 CO2 [Moles/Vol] 23.0 mmol/L 21.0-32.0 [facility] Chloride measurementOrdered By: Alexander Steiner on 03-06-2024 Chloride [Moles/Vol] 112 mmol/L High 98-107 [facility] Comprehensive Metabolic Prof ilon 03-06-2024 Albumin [Mass/Vol] 3.5 g/dL Normal 3.2-5.0 [facility] Comment on above: Performed By: #### L 506.1000, L500.4100, L501.9520, L100.0100, L500.4050 ####[facility] [address] [place], [address] Albumin/Globulin [Mass ratio] 0.9 {ratio} Normal 0.9-2.4 [facility] Comment on above: Performed By: #### L 506.1000, L500.4100, L501.9520, L100.0100, L500.4050 ####[facility] [address] [place], [address] ALK P 119 U/L High 45-117 [facility] Comment on above: Performed By: #### L 506.1000, L500.4100, L501.9520, L100.0100, L500.4050 ####[facility] [address] [place], [address] ALT [Catalytic activity/Vol] 19 U/L Normal 16-61 [facility] Comment on above: Performed By: #### L 506.1000, L500.4100, L501.9520, L100.0100, L500.4050 ####[facility] [address] [place], [address] AST [Catalytic activity/Vol] 11 U/L Low 15-37 [facility] Comment on above: Performed By: #### L 506.1000, L500.4100, L501.9520, L100.0100, L500.4050 ####[facility] [address] [place], [address] Bilirubin [Mass/Vol] 0.70 mg/dL Normal 0.20-1.00 [facility] Comment on above: Result Comment: For patients on eltrombopag therapy, use of Dimension [place] TBIL is not recommended. Performed By: #### L 506.1000, L500.4100, L501.9520, L100.0100, L500.4050 ####[facility] [address] [place], [address] BUN/CRE 15.6 RATIO Normal 10-20 [facility] Comment on above: Performed By: #### L 506.1000, L500.4100, L501.9520, L100.0100, L500.4050 ####[facility] [address] [place], [address] CA,Total 9.7 mg/dL Normal 8.5-10.1 [facility] Comment on above: Performed By: #### L 506.1000, L500.4100, L501.9520, L100.0100, L500.4050 ####[facility] [address] [place], [address] Chloride [Moles/Vol] 112 mmol/L High 98-107 [facility] Comment on above: Performed By: #### L 506.1000, L500.4100, L501.9520, L100.0100, L500.4050 ####[facility] [address] [place], [address] CO2 [Moles/Vol] 23.0 mmol/L Normal 21.0-32.0 [facility] Comment on above: Performed By: #### L 506.1000, L500.4100, L501.9520, L100.0100, L500.4050 ####[facility] [address] [place], [address] Creatinine [Mass/Vol] 0.84 mg/dL Normal 0.70-1.30 [facility] Comment on above: Result Comment: The validity of the calculated GFR GFRAA in patients over70 years has not been determined. Clinical correlation isessential. Performed By: #### L 506.1000, L500.4100, L501.9520, L100.0100, L500.4050 ####[facility] [address] [place], [address] EST GFR - AA 113 mL/min Normal >60 [facility] Comment on above: Result Comment: Afri can [place] GFR Calc Performed By: #### L 506.1000, L500.4100, L501.9520, L100.0100, L500.4050 ####[facility] [address] [place], [address] GAP 7 Normal 5-15 [facility] Comment on above: Performed By: #### L 506.1000, L500.4100, L501.9520, L100.0100, L500.4050 ####[facility] [address] [place], [address] GFR/1.73 sq M.predicted among non-blacks MDRD (S/P/Bld) [Vol rate/Area] 94 mL/min/{1.73_m2} Normal >60 [facility] Comment on above: Result Comment: Non- GFR Calc Performed By: #### L 506.1000, L500.4100, L501.9520, L100.0100, L500.4050 ####[facility] [address] [place], [address] Globulin (S) [Mass/Vol] 3.9 g/dL Normal 2.2-4.2 [facility] Comment on above: Performed By: #### L 506.1000, L500.4100, L501.9520, L100.0100, L500.4050 ####[facility] [id number] [place], [address] Glucose [Mass/Vol] 107 mg/dL High 74-106 [facility] Comment on above: Result Comment: Fast ing Glucose result from 100 to 125 mg/dLsuggests IMPAIRED HOMEOSTASIS per A.D.A. criteria. Performed By: #### L 506.1000, L500.4100, L501.9520, L100.0100, L500.4050 ####[facility] [id number] [place], [address] Potassium [Moles/Vol] 3.8 mmol/L Normal 3.5-5.1 [facility] Comment on above: Performed By: #### L 506.1000, L500.4100, L501.9520, L100.0100, L500.4050 ####[facility] [id number] [place], [address] Sodium [Moles/Vol] 141 mmol/L Normal 136-145 [facility] Comment on above: Performed By: #### L 506.1000, L500.4100, L501.9520, L100.0100, L500.4050 ####[facility] [id number] [place], [address] T PROT 7.4 g/dL Normal 6.4-8.2 [facility] Comment on above: Performed By: #### L 506.1000, L500.4100, L501.9520, L100.0100, L500.4050 ####[facility] [id number] [place], [address] Urea nitrogen [Mass/Vol] 13 mg/dL Normal 7-18 [facility] Comment on above: Performed By: #### L 506.1000, L500.4100, L501.9520, L100.0100, L500.4050 ####[facility] [id number] [place], [address] Eosinophil percentageOrdered By: Alexander Steiner on 03-06-2024 Eosinophils/100 WBC (Bld) 1.2 % 0-5 [facility] Erythrocyte distribution wid th ratioOrdered By: Alexander Steiner on 03-06-2024 Erythrocyte distribution width (RBC) [Ratio] 18.6 % High 11.6-14.6 [facility] Erythrocyte distribution wid th standard deviationOrdered By: Alexander Steiner on 03-06-2024 Erythrocyte distribution width (RBC) [Entitic vol] 55.6 fL High 35.1-43.9 [facility] Estimated glomerular filtrat ion rate (GFR) AmericanOrdered By: Alexander Steiner on 03-06-2024 Estimated GFR (MDRD) Amer 113 mL/min >60 [facility] Comment on above: GFR Calc Glomerular filtration rate ( GFR) estimationOrdered By: Alexander Steiner on 03-06-2024 Estimated GFR (MDRD) Non-Af Amer 94 mL/min >60 [facility] Comment on above: Non- GFR Calc Glucose measurementOrdered B y: Alexander Steiner on 03-06-2024 Glucose [Mass/Vol] 107 mg/dL High 74-106 [facility] Comment on above: Fasting Glucose resu lt from 100 to 125 mg/dL suggests IMPAIRED HOMEOSTASIS per A.D.A. criteria. Hematocrit Auto (Bld) [Volum e fraction]Ordered By: Alexander Steiner on 03-06-2024 Hematocrit (Bld) [Volume fraction] 40.9 % 40-54 [facility] Hemoglobin measurementOrdere d By: Alexander Steiner on 03-06-2024 Hemoglobin (Bld) [Mass/Vol] 13.1 g/dL 13.0-16.5 [facility] High density lipoprotein (HD L) measurementOrdered By: Alexander Steiner on 03-06-2024 Cholesterol in HDL [Mass/Vol] 83 mg/dL >40 [facility] Comment on above: The drugs N-Acetylcy steine and Metamizole may falsely depress this assay. Reference Range HDL <40 mg/dL Low HDL Cholesterol HDL >or= 60 mg/dL High HDL Cholesterol Immature granulocytes/100 WB C Auto (Bld)Ordered By: Alexander Steiner on 03-06-2024 Immature granulocytes/100 WBC (Bld) 0.600 % 0.0-0.9 [facility] Comment on above: IG% - Immature Granu locytes (promyelocytes, myelocytes and metamyelocytes) > 1% indicates that a LEFT SHIFT is Present. Laboratory - Chemistry and C hemistry - challengeOrdered By: Alexander Steiner on 03-06-2024 AST [Catalytic activity/Vol] 11 U/L Low 15-37 [facility] Lipid Profileon 03-06-2024 Cholesterol [Mass/Vol] 173 mg/dL Normal 200 [facility] Comment on above: Result Comment: <200 mg/dL Desirable 200-240 mg/dL Borderline >240 mg/dL High Risk Performed By: #### L 506.1000, L500.4100, L501.9520, L100.0100, L500.4050 ####[facility] [id number] [place], [address] Cholesterol in HDL [Mass/Vol] 83 mg/dL Normal [facility] Comment on above: Result Comment: The drugs N-Acetylcysteine and Metamizole may falselydepress this assay. Reference Range HDL <40 mg/dL Low HDL Cholesterol HDL >or= 60 mg/dL High HDL Cholesterol Performed By: #### L 506.1000, L500.4100, L501.9520, L100.0100, L500.4050 ####[facility] [id number] [place], [address] Cholesterol in LDL [Mass/Vol] 75 mg/dL Normal 0-130 [facility] Comment on above: Performed By: #### L 506.1000, L500.4100, L501.9520, L100.0100, L500.4050 ####[facility] [id number] [place], [address] Cholesterol in VLDL [Mass/Vol] 15 mg/dL Normal 5-40 [facility] Comment on above: Performed By: #### L 506.1000, L500.4100, L501.9520, L100.0100, L500.4050 ####[facility] [id number] [place], [address] Triglyceride [Mass/Vol] 74 mg/dL Normal [facility] Comment on above: Result Comment: The drugs N-Acetylcysteine and Metamizole may falselydepress this assay.Serum Triglycerides Reference Interval Normal <150 mg/dL Borderline high 150 - 199 mg/dL High 200 - 499 mg/dL Very High > or = 500 mg/dL Performed By: #### L 506.1000, L500.4100, L501.9520, L100.0100, L500.4050 ####[facility] [id number] [place], [address] Low density lipoprotein (LDL ) cholesterol measurementOrdered By: Alexander iqbal 03-06-2024 Cholesterol in LDL [Mass/Vol] 75 mg/dL 0-130 [facility] Lymphocytes Auto (Unsp spec) [#/Vol]Ordered By: Alexander Steiner on 03-06-2024 Lymphocytes (Bld) [#/Vol] 1.02 10*3/uL 0.83-4.51 [facility] Lymphocytes/100 WBC Auto (Un sp spec)Ordered By: Alexander Steiner on 03-06-2024 Lymphocytes/100 WBC (Bld) 12.1 % Low 19-41 [facility] MCV (mean corpuscular volume ) determinationOrdered By: Alexander Steiner on 03-06-2024 MCV (RBC) [Entitic vol] 83.3 fL 80-94 [facility] Mean corpuscular hemoglobin (MCH) determinationOrdered By: Alexander Steiner on 03-06-2024 MCH (RBC) [Entitic mass] 26.7 pg Low 27.0-32.0 [facility] Mean corpuscular hemoglobin concentration (MCHC) determinationOrdered By: Alexander Steiner on 03-06-2024 MCHC (RBC) [Mass/Vol] 32.0 g/dL 32-36 [facility] Mean platelet volume determi nationOrdered By: Alexander Steiner on 03-06-2024 Platelet mean volume (Bld) [Entitic vol] 10.0 fL 6.2-12.0 [facility] Monocyte percentageOrdered B y: Alexander Steiner on 03-06-2024 Monocytes/100 WBC (Bld) 8.9 % 0-10 [facility] Neutrophil percentageOrdered By: Alexander Steiner on 03-06-2024 Neutrophils/100 WBC (Bld) 76.3 % High 47-70 [facility] Nucleated red blood cell per centageOrdered By: Alexander Steiner on 03-06-2024 Nucleated RBC/100 WBC (Bld) [Ratio] 0 % 0-5 [facility] Platelet countOrdered By: Emmett Steiner on 03-06-2024 Platelets (Bld) [#/Vol] 288 10*3/uL 150-450 [facility] Potassium measurementOrdered By: Alexander Steiner on 03-06-2024 Potassium [Moles/Vol] 3.8 mmol/L 3.5-5.1 [facility] RBC Auto (Bld) [#/Vol]Ordere d By: Alexander Steiner on 03-06-2024 RBC (Bld) [#/Vol] 4.91 10*6/uL 4.6-6.2 [facility] Serum anion gap measurementO rdered By: Alexander Steiner 03-06-2024 Anion gap [Moles/Vol] 7 mmol/L 5-15 [facility] Serum globulin measurementOr dered By: Alexander Steiner on 03-06-2024 Globulin (S) [Mass/Vol] 3.9 g/dL 2.2-4.2 [facility] Serum or plasma alanine luna otransferase (ALT) measurementOrdered By: Alexander Steiner 03-06-2024 ALT [Catalytic activity/Vol] 19 U/L 16-61 [facility] Serum or plasma albumin maddie urement (mass/volume)Ordered By: Alexander Steiner 03-06-2024 Albumin [Mass/Vol] 3.5 g/dL 3.2-5.0 [facility] Serum or plasma alkaline cheryl sphatase measurementOrdered By: Alexander Steiner 03-06-2024 ALP [Catalytic activity/Vol] 119 U/L High 45-117 [facility] Serum or plasma calcium maddie urement (mass/volume)Ordered By: Alxeander Steiner 03-06-2024 Calcium [Mass/Vol] 9.7 mg/dL 8.5-10.1 [facility] Serum or plasma cholesterol measurement (mass/volume)Ordered By: Alexander Steiner 03-06-2024 Cholesterol [Mass/Vol] 173 mg/dL <200 [facility] Comment on above: <200 mg/dL Desirable 200-240 mg/dL Borderline >240 mg/dL High Risk Serum or plasma creatinine m easurement (mass/volume)Ordered By: Alexander Steiner 03-06-2024 Creatinine [Mass/Vol] 0.84 mg/dL 0.70-1.30 [facility] Comment on above: The validity of the calculated GFR & GFRAA in patients over 70 years has not been determined. Clinical correlation is essential. Serum or plasma urea nitroge n measurement (mass/volume)Ordered By: Alexander Steiner 03-06-2024 Urea nitrogen [Mass/Vol] 13 mg/dL 7-18 [facility] Sodium levelOrdered By: Alexander Steiner on 03-06-2024 Sodium [Moles/Vol] 141 mmol/L 136-145 [facility] TSH QnOrdered By: Alexander Steiner o n 03-06-2024 Thyroid Stimulating Hormone (TSH) 0.709 uIU/mL 0.358-3.740 [facility] Thyroid Stim Hormone (TSH)on 03-06-2024 TSH 0.709 uIU/mL Normal 0.358-3.740 [facility] Comment on above: Performed By: #### L 506.1000, L500.4100, L501.9520, L100.0100, L500.4050 ####[facility] [id number] [place], [address] Total proteinOrdered By: Alexander Steiner on 03-06-2024 Protein [Mass/Vol] 7.4 g/dL 6.4-8.2 [facility] Triglycerides measurementOrd ered By: Alexander Steiner on 03-06-2024 Triglyceride [Mass/Vol] 74 mg/dL <199 [facility] Comment on above: The drugs N-Acetylcy steine and Metamizole may falsely depress this assay.Serum Triglycerides Reference Interval Normal <150 mg/dL Borderline high 150 - 199 mg/dL High 200 - 499 mg/dL Very High > or = 500 mg/dL Very low density lipoprotein (VLDL) cholesterol measurementOrdered By: Alexander Steiner on 03-06-2024 VLDL Cholesterol 15 mg/dL 5-40 [facility] Vitamin D,25 Hydroxyon 03-06 Vitamin D 25-OH 27.4 ng/mL Normal [facility] Comment on above: Result Comment: Snow min D 25(OH) Status Range Deficiency <20 ng/mL (50nmol/L) Insufficiency 20 - 30 ng/mL (50 - 75 nmol/L) Sufficiency 30 - 100 ng/mL (75 - 250 nmol/L) Toxicity >100 ng/mL (>250 nmol/L) Performed By: #### L 506.1000, L500.4100, L501.9520, L100.0100, L500.4050 ####[facility] [id number] [place], [address] White blood cell (WBC) count Ordered By: Alexander Steiner on 03-06-2024 WBC (Bld) [#/Vol] 8.5 10*3/uL 4.4-11.0 [facility] Radiation Oncology Visiton 1 05-01-2023 Radiation Oncology Visit Normal [facility] Chest without Contraston Chest without Contrast Normal [facility] Orthopedic Visit Reporton Orthopedic Visit Report Normal [facility] Absolute lymphocyte countOrd ered By: Alexander Steiner on 04-04-2023 Lymphocytes Auto (Unsp spec) [#/Vol] 0.77 10*3/uL 0.83-4.51 [facility] Basophil percentageOrdered B y: Alexander Steiner on 04-04-2023 Basophils/100 WBC (Bld) 1.2 % 0-1 [facility] Eosinophils/100 WBC (Bld) 0.6 % 0-5 [facility] Neutrophils (Bld) [#/Vol] 5.2 10*3/uL 2.0-7.7 [facility] Neutrophils/100 WBC (Bld) 76.4 % 47-70 [facility] WBC (Bld) [#/Vol] 6.8 10*3/uL 4.4-11.0 [facility] Blood erythrocytes count (nu mber/volume)Ordered By: Alexander Steiner on 04-04-2023 RBC (Bld) [#/Vol] 4.82 10*6/uL 4.6-6.2 [facility] Blood hemoglobin measurement (mass/volume)Ordered By: Alexander Steiner on 04-04-2023 Hemoglobin (Bld) [Mass/Vol] 12.6 g/dL 13.0-16.5 [facility] Blood lymphocytes/100 leukoc ytesOrdered By: Alexander Steiner on 04-04-2023 Lymphocytes/100 WBC (Bld) 11.4 % 19-41 [facility] Blood monocytes/100 leukocyt esOrdered By: Alexander Steiner on 04-04-2023 Monocytes/100 WBC (Bld) 10.0 % 0-10 [facility] Blood platelet mean volumeOr dered By: Alexander Steiner on 04-04-2023 Platelet mean volume (Bld) [Entitic vol] 10.5 fL 6.2-12.0 [facility] Determination of erythrocyte mean corpuscular volume (MCV)Ordered By: Alexander Steiner on 04-04-2023 MCV (RBC) [Entitic vol] 84.4 fL 80-94 [facility] Hematocrit Auto (Bld) [Volum e fraction]Ordered By: Alexander Steiner on 04-04-2023 Hematocrit (Bld) [Volume fraction] 40.7 % 40-54 [facility] Laboratory - Hematology and Cell countsOrdered By: Alexander Jatin on 04-04-2023 Erythrocyte distribution width (RBC) [Entitic vol] 59.4 fL 35.1-43.9 [facility] Erythrocyte distribution width (RBC) [Ratio] 19.6 % 11.6-14.6 [facility] Immature granulocytes/100 WBC (Bld) 0.400 % 0.0-0.9 [facility] Comment on above: IG% - Immature Granu locytes (promyelocytes, myelocytes and metamyelocytes) > 1% indicates that a LEFT SHIFT is Present. MCH (RBC) [Entitic mass] 26.1 pg 27.0-32.0 [facility] Nucleated RBC/100 WBC (Bld) [Ratio] 0 % 0-5 [facility] MCHC Auto (RBC) [Mass/Vol]Or dered By: Alexander Steiner on 04-04-2023 MCHC (RBC) [Mass/Vol] 31.0 g/dL 32-36 [facility] Platelets bldOrdered By: Alexnader Steiner on 04-04-2023 Platelets (Bld) [#/Vol] 281 10*3/uL 150-450 [facility] Stool gastrointestinal hemog lobin detection by immunologic methodOrdered By: Alexander Steiner on 03-06-2023 Lower GI hemoglobin IA Ql (Stl) [facility] Absolute lymphocyte countOrd ered By: Alexander Jatin on 03-03-2023 Lymphocytes Auto (Unsp spec) [#/Vol] 0.75 10*3/uL 0.83-4.51 [facility] Basophil percentageOrdered B y: Alexander Steiner on 03-03-2023 Basophils/100 WBC (Bld) 1.8 % 0-1 [facility] Eosinophils/100 WBC (Bld) 2.9 % 0-5 [facility] Neutrophils (Bld) [#/Vol] 3.9 10*3/uL 2.0-7.7 [facility] Neutrophils/100 WBC (Bld) 70.4 % 47-70 [facility] WBC (Bld) [#/Vol] 5.5 10*3/uL 4.4-11.0 [facility] Blood erythrocytes count (nu mber/volume)Ordered By: Alexander Steiner on 03-03-2023 RBC (Bld) [#/Vol] 4.40 10*6/uL 4.6-6.2 [facility] Blood hemoglobin measurement (mass/volume)Ordered By: Alexander Steiner on 03-03-2023 Hemoglobin (Bld) [Mass/Vol] 11.1 g/dL 13.0-16.5 [facility] Blood lymphocytes/100 leukoc ytesOrdered By: Alexander Steiner on 03-03-2023 Lymphocytes/100 WBC (Bld) 13.7 % 19-41 [facility] Blood monocytes/100 leukocyt esOrdered By: Alexander Steiner on 03-03-2023 Monocytes/100 WBC (Bld) 11.0 % 0-10 [facility] Blood platelet mean volumeOr dered By: Alexander Steiner on 03-03-2023 Platelet mean volume (Bld) [Entitic vol] 10.6 fL 6.2-12.0 [facility] Determination of erythrocyte mean corpuscular volume (MCV)Ordered By: Alexander Steiner on 03-03-2023 MCV (RBC) [Entitic vol] 81.4 fL 80-94 [facility] Hematocrit Auto (Bld) [Volum e fraction]Ordered By: Alexander Steiner on 03-03-2023 Hematocrit (Bld) [Volume fraction] 35.8 % 40-54 [facility] Hemoglobin in reticulocytes (mass per reticulocyte)Ordered By: Alexander Steiner on 03-03-2023 Hemoglobin (Reticulocytes) [Entitic mass] 26.9 pg 30-35 [facility] Iron measurement (mass/mass) Ordered By: Alexander Steiner on 03-03-2023 Iron (Unsp spec) [Mass/Mass] 16 ug/dL 65-175 [facility] Laboratory - Chemistry and C hemistry - challengeOrdered By: Alexander Steiner on 03-03-2023 Cobalamin (Vitamin B12) [Mass/Vol] 536 pg/mL 211-911 [facility] Laboratory - Hematology and Cell countsOrdered By: Alexander Steiner on 03-03-2023 Erythrocyte distribution width (RBC) [Entitic vol] 48.5 fL 35.1-43.9 [facility] Erythrocyte distribution width (RBC) [Ratio] 16.3 % 11.6-14.6 [facility] Immature granulocytes/100 WBC (Bld) 0.200 % 0.0-0.9 [facility] Comment on above: IG% - Immature Granu locytes (promyelocytes, myelocytes and metamyelocytes) > 1% indicates that a LEFT SHIFT is Present. MCH (RBC) [Entitic mass] 25.2 pg 27.0-32.0 [facility] Nucleated RBC/100 WBC (Bld) [Ratio] 0 % 0-5 [facility] MCHC Auto (RBC) [Mass/Vol]Or dered By: Alexander Steiner on 03-03-2023 MCHC (RBC) [Mass/Vol] 31.0 g/dL 32-36 [facility] No Panel InformationOrdered By: Alexander Steiner on 03-03-2023 Immature Reticulocyte Fraction 17.40 % 3.00-15.90 [facility] Reticulocyte Count 1.01 % 0.5-1.5 [facility] Total Iron Binding Capacity 486 ug/dL 250-450 [facility] Platelets bldOrdered By: Alexander Steiner on 03-03-2023 Platelets (Bld) [#/Vol] 255 10*3/uL 150-450 [facility] Serum or plasma ferritin xavi surement (mass/volume)Ordered By: Alexander Steiner on 03-03-2023 Ferritin [Mass/Vol] 7 ng/mL 26-388 [facility] Serum or plasma folate measu rement (mass/volume)Ordered By: Alexander Steiner on 03-03-2023 Folate [Mass/Vol] 15.50 ng/mL 3.1-55.4 [facility] Serum or plasma iron saturat ion measurement (mass fraction)Ordered By: Alexander Packerok on 03-03-2023 Iron saturation [Mass fraction] 3.3 % 15.0-55.0 [facility] Absolute lymphocyte countOrd ered By: Alexander Steiner on 03-02-2023 Lymphocytes Auto (Unsp spec) [#/Vol] 0.81 10*3/uL 0.83-4.51 [facility] Basophil percentageOrdered B y: Alexander Steiner on 03-02-2023 Basophils/100 WBC (Bld) 2.2 % 0-1 [facility] Bilirubin [Mass/Vol] 0.40 mg/dL 0.20-1.00 [facility] Comment on above: For patients on eltr ombopag therapy, use of Dimension [place] TBIL is not recommended. Chloride [Moles/Vol] 110 mmol/L 98-107 [facility] Cholesterol [Mass/Vol] 146 mg/dL <200 [facility] Comment on above: <200 mg/dL Desirable 200-240 mg/dL Borderline >240 mg/dL High Risk Eosinophils/100 WBC (Bld) 5.1 % 0-5 [facility] Glucose [Mass/Vol] 101 mg/dL 74-106 [facility] Comment on above: Fasting Glucose resu lt from 100 to 125 mg/dL suggests IMPAIRED HOMEOSTASIS per A.D.A. criteria. Neutrophils (Bld) [#/Vol] 2.7 10*3/uL 2.0-7.7 [facility] Neutrophils/100 WBC (Bld) 59.6 % 47-70 [facility] Potassium [Moles/Vol] 3.7 mmol/L 3.5-5.1 [facility] Protein [Mass/Vol] 7.0 g/dL 6.4-8.2 [facility] Sodium [Moles/Vol] 140 mmol/L 136-145 [facility] Triglyceride [Mass/Vol] 53 mg/dL <199 [facility] Comment on above: The drugs N-Acetylcy steine and Metamizole may falsely depress this assay.Serum Triglycerides Reference Interval Normal <150 mg/dL Borderline high 150 - 199 mg/dL High 200 - 499 mg/dL Very High > or = 500 mg/dL WBC (Bld) [#/Vol] 4.5 10*3/uL 4.4-11.0 [facility] Blood erythrocytes count (nu mber/volume)Ordered By: Alexander Steiner on 03-02-2023 RBC (Bld) [#/Vol] 4.40 10*6/uL 4.6-6.2 [facility] Blood hemoglobin measurement (mass/volume)Ordered By: Alexander Steiner on 03-02-2023 Hemoglobin (Bld) [Mass/Vol] 10.9 g/dL 13.0-16.5 [facility] Blood lymphocytes/100 leukoc ytesOrdered By: Alexander Steiner on 03-02-2023 Lymphocytes/100 WBC (Bld) 17.9 % 19-41 [facility] Blood monocytes/100 leukocyt esOrdered By: Alexander Steiner on 03-02-2023 Monocytes/100 WBC (Bld) 15.0 % 0-10 [facility] Blood platelet mean volumeOr dered By: Alexander Steiner on 03-02-2023 Platelet mean volume (Bld) [Entitic vol] 10.3 fL 6.2-12.0 [facility] Determination of erythrocyte mean corpuscular volume (MCV)Ordered By: Alexander Steiner on 03-02-2023 MCV (RBC) [Entitic vol] 82.3 fL 80-94 [facility] Hematocrit Auto (Bld) [Volum e fraction]Ordered By: Alexander Steiner on 03-02-2023 Hematocrit (Bld) [Volume fraction] 36.2 % 40-54 [facility] Laboratory - Chemistry and C hemistry - challengeOrdered By: Alexander Steiner on 03-02-2023 ALP [Catalytic activity/Vol] 79 U/L 45-117 [facility] ALT [Catalytic activity/Vol] 17 U/L 16-61 [facility] CO2 [Moles/Vol] 23.0 mmol/L 21.0-32.0 [facility] Globulin (S) [Mass/Vol] 3.4 g/dL 2.2-4.2 [facility] Urea nitrogen/Creatinine [Mass ratio] 15.8 mg/mg 10-20 [facility] Laboratory - Hematology and Cell countsOrdered By: Alexander Steiner on 03-02-2023 Erythrocyte distribution width (RBC) [Entitic vol] 49.2 fL 35.1-43.9 [facility] Erythrocyte distribution width (RBC) [Ratio] 16.3 % 11.6-14.6 [facility] Immature granulocytes/100 WBC (Bld) 0.200 % 0.0-0.9 [facility] Comment on above: IG% - Immature Granu locytes (promyelocytes, myelocytes and metamyelocytes) > 1% indicates that a LEFT SHIFT is Present. MCH (RBC) [Entitic mass] 24.8 pg 27.0-32.0 [facility] Nucleated RBC/100 WBC (Bld) [Ratio] 0 % 0-5 [facility] MCHC Auto (RBC) [Mass/Vol]Or dered By: Alexander Steiner on 03-02-2023 MCHC (RBC) [Mass/Vol] 30.1 g/dL 32-36 [facility] No Panel InformationOrdered By: Alexander Steiner on 03-02-2023 Estimated GFR (MDRD) Amer 140 mL/min >60 [facility] Comment on above: GFR Calc Estimated GFR (MDRD) Non-Af Amer 116 mL/min >60 [facility] Comment on above: Non- GFR Calc Thyroid Stimulating Hormone (TSH) 0.57 uIU/mL 0.358-3.74 [facility] Vitamin D 25-Hydroxy 35.7 ng/mL [facility] Comment on above: Vitamin D 25(OH) Sta tus Range Deficiency <20 ng/mL (50nmol/L) Insufficiency 20 - 30 ng/mL (50 - 75 nmol/L) Sufficiency 30 - 100 ng/mL (75 - 250 nmol/L) Toxicity >100 ng/mL (>250 nmol/L) Platelets bldOrdered By: Alexander Steiner on 03-02-2023 Platelets (Bld) [#/Vol] 247 10*3/uL 150-450 [facility] Serum or plasma albumin maddie urement (mass/volume)Ordered By: Alexander Steiner on 03-02-2023 Albumin [Mass/Vol] 3.6 g/dL 3.2-5.0 [facility] Serum or plasma albumin/glob ulin mass ratioOrdered By: Alexander Steiner on 03-02-2023 Albumin/Globulin [Mass ratio] 1.1 {ratio} 0.9-2.4 [facility] Serum or plasma calcium maddie urement (mass/volume)Ordered By: Alexander Steiner on 03-02-2023 Calcium [Mass/Vol] 8.1 mg/dL 8.5-10.1 [facility] Serum or plasma cholesterol in HDL measurement (mass/volume)Ordered By: Alexander Steiner on 03-02-2023 Cholesterol in HDL [Mass/Vol] 74 mg/dL >40 [facility] Comment on above: The drugs N-Acetylcy steine and Metamizole may falsely depress this assay. Reference Range HDL <40 mg/dL Low HDL Cholesterol HDL >or= 60 mg/dL High HDL Cholesterol Serum or plasma cholesterol in VLDL measurement (mass/volume)Ordered By: Alexander Steiner on 03-02-2023 Cholesterol in VLDL [Mass/Vol] 11 mg/dL 5-40 [facility] Serum or plasma creatinine m easurement (mass/volume)Ordered By: Alexander Steiner on 03-02-2023 Creatinine [Mass/Vol] 0.70 mg/dL 0.70-1.30 [facility] Comment on above: The validity of the calculated GFR & GFRAA in patients over 70 years has not been determined. Clinical correlation is essential. Serum or plasma low density lipoprotein (LDL) cholesterol measurement (mass/volume)Ordered By: Alexander Steiner on 03-02-2023 Cholesterol in LDL [Mass/Vol] 61 mg/dL 0-130 [facility] Serum or plasma urea nitroge n measurement (mass/volume)Ordered By: Alexander Steiner on 03-02-2023 Urea nitrogen [Mass/Vol] 11 mg/dL 7-18 [facility] Thin prep Papanicolaou smear with manual screeningOrdered By: Alexander Steiner 03-02-2023 Thin prep Papanicolaou smear with manual screening 18 U/L 15-37 [facility] Thin prep Papanicolaou smear with manual screening 7 5-15 [facility] No Panel InformationOrdered By: Alejandro Machado on 01-04-2023 Estimated GFR (MDRD) Amer 127 mL/min >60 [facility] Comment on above: GFR Calc Estimated GFR (MDRD) Non-Af Amer 105 mL/min >60 [facility] Comment on above: Non- GFR Calc Serum or plasma creatinine m easurement (mass/volume)Ordered By: Alejandro Machado on 01-04-2023 Creatinine [Mass/Vol] 0.76 mg/dL 0.70-1.30 [facility] Comment on above: The validity of the calculated GFR & GFRAA in patients over 70 years has not been determined. Clinical correlation is essential. No Panel InformationOrdered By: Alexander Steiner on 12-27-2022 Thyroid Stimulating Hormone (TSH) 1.15 uIU/mL 0.358-3.74 [facility] CBC,PLATELETSon 12-02-2022 Erythrocyte distribution width (RBC) [Ratio] 15.5 % High 10.9 - 14.3 % [facility] Hematocrit (Bld) [Volume fraction] 38.0 % Low 39.6 - 48.8 % [facility] Hemoglobin (Bld) [Mass/Vol] 12.0 g/dL Low 13.4 - 16.8 g/dL [facility] Interpretation and review of laboratory results Abnormal [facility] MCH (RBC) [Entitic mass] 26.7 pg 26.1 - 33.3 pg [facility] MCHC (RBC) [Mass/Vol] 31.6 g/dL Low 31.9 - 36.5 g/dL [facility] MCV (RBC) [Entitic vol] 84.6 fL 79.0 - 94.5 fL [facility] Platelet mean volume (Bld) [Entitic vol] 10.3 fL 8.7 - 12.3 fL [facility] Platelets (Bld) [#/Vol] 288 10*3/uL 146 - 337 K/uL [facility] RBC (Bld) [#/Vol] 4.49 10*6/uL [facility] WBC (Bld) [#/Vol] 8.71 10*3/uL 3.73 - 10. 10 K/uL [facility] GENERAL PROCEDUREon 12-03-19 23 Reji Goodrich MD - 12/02/2022 7:30 AM EDT BODY INTERVENTIONAL RADIOLOGY PROCEDURE NOTE PROCEDURE INDICATION: Right upper lobe enlarging lung nodule PROCEDURE PERFORMED: CT-guided lung biopsy FINDINGS/TARGET: Right upper raj lung nodule. Total of 6 passes taken. No pneumothorax on post imaging. Reji Goodrich MD 12/02/2022 9:11 AM HAND PACKER(S): Reji Goodrich MD. CONSENT: Informed consent was obtained prior to the procedure after discussion of the risks, benefits, and alternatives of the procedure, and expected procedure outcomes were discussed with the patient and/or motor vehicle field representative. The consent document was placed in chart. DID THIS PROCEDURE REQUIRE A UNIVERSAL PROTOCOL?: Yes. [place] Protocol is required. Preprocedure verification is complete. [...] Radiology to participate in this patient's care. [facility] Radiology Study observation (narrative) [facility] PT/INR POINT OF CAREon 12-02 Interpretation and review of laboratory results Abnormal [facility] PT/INR (POC Device) 1.4 High 0.9 - 1.1 [facility] Comment on above: INR results performe d by this method may be inaccurate in patients with a hematocrit <20% or >55%. Confirmation of test results by standard coagulation testing in the main clinical laboratory is recommended for these patients. Test performed at address of the patient encounter. [facility] Portable XR Chest Views APon 12-02-2022 [...] I have reviewed and approved this report. [facility] Radiology Study observation (narrative) [facility] Portable XR Chest Views APOr dered By: Edouard Escobar on 12-02-2022 [facility] Work Phone: CT CHEST WITHOUT CONTRASTon 11-11-2022 [...] disease and generalized bilateral centrilobular emphysema. Normal [facility] No Panel InformationOrdered By: Alexander Steiner on 11-01-2022 Thyroid Stimulating Hormone (TSH) 7.41 uIU/mL 0.358-3.74 [facility] Absolute lymphocyte countOrd ered By: Alexander Steiner on 08-31-2022 Lymphocytes Auto (Unsp spec) [#/Vol] 0.84 10*3/uL 0.83-4.51 [facility] Basophil percentageOrdered B y: Alexander Steiner on 08-31-2022 Basophils/100 WBC (Bld) 1.1 % 0-1 [facility] Bilirubin [Mass/Vol] 0.40 mg/dL 0.20-1.00 [facility] Comment on above: For patients on eltr ombopag therapy, use of Dimension [place] TBIL is not recommended. Chloride [Moles/Vol] 110 mmol/L 98-107 [facility] Cholesterol [Mass/Vol] 149 mg/dL <200 [facility] Comment on above: <200 mg/dL Desirable 200-240 mg/dL Borderline >240 mg/dL High Risk Eosinophils/100 WBC (Bld) 1.7 % 0-5 [facility] Glucose [Mass/Vol] 124 mg/dL 74-106 [facility] Comment on above: Fasting Glucose resu lt from 100 to 125 mg/dL suggests IMPAIRED HOMEOSTASIS per A.D.A. criteria. Neutrophils (Bld) [#/Vol] 5.5 10*3/uL 2.0-7.7 [facility] Neutrophils/100 WBC (Bld) 76.2 % 47-70 [facility] Potassium [Moles/Vol] 3.7 mmol/L 3.5-5.1 [facility] Protein [Mass/Vol] 7.5 g/dL 6.4-8.2 [facility] Sodium [Moles/Vol] 140 mmol/L 136-145 [facility] Triglyceride [Mass/Vol] 40 mg/dL <199 [facility] Comment on above: The drugs N-Acetylcy steine and Metamizole may falsely depress this assay.Serum Triglycerides Reference Interval Normal <150 mg/dL Borderline high 150 - 199 mg/dL High 200 - 499 mg/dL Very High > or = 500 mg/dL WBC (Bld) [#/Vol] 7.3 10*3/uL 4.4-11.0 [facility] Blood erythrocytes count (nu mber/volume)Ordered By: Alexander Steiner on 08-31-2022 RBC (Bld) [#/Vol] 4.37 10*6/uL 4.6-6.2 [facility] Blood hemoglobin measurement (mass/volume)Ordered By: Alexander Steiner on 08-31-2022 Hemoglobin (Bld) [Mass/Vol] 12.2 g/dL 13.0-16.5 [facility] Blood lymphocytes/100 leukoc ytesOrdered By: Alexander Steiner on 08-31-2022 Lymphocytes/100 WBC (Bld) 11.6 % 19-41 [facility] Blood monocytes/100 leukocyt esOrdered By: Alexander Steiner on 08-31-2022 Monocytes/100 WBC (Bld) 9.1 % 0-10 [facility] Blood platelet mean volumeOr dered By: Alexander Steiner on 08-31-2022 Platelet mean volume (Bld) [Entitic vol] 10.7 fL 6.2-12.0 [facility] Determination of erythrocyte mean corpuscular volume (MCV)Ordered By: Alexander Steiner on 08-31-2022 MCV (RBC) [Entitic vol] 88.1 fL 80-94 [facility] Hematocrit Auto (Bld) [Volum e fraction]Ordered By: Alexander Steiner on 08-31-2022 Hematocrit (Bld) [Volume fraction] 38.5 % 40-54 [facility] Laboratory - Chemistry and C hemistry - challengeOrdered By: [facility]2022 ALP [Catalytic activity/Vol] 98 U/L 45-117 [facility] ALT [Catalytic activity/Vol] 18 U/L 16-61 [facility] CO2 [Moles/Vol] 23.0 mmol/L 21.0-32.0 [facility] Globulin (S) [Mass/Vol] 3.7 g/dL 2.2-4.2 [facility] Urea nitrogen/Creatinine [Mass ratio] 19.1 mg/mg 10-20 [facility] Laboratory - Hematology and Cell countsOrdered By: [facility] 08-31-2022 Erythrocyte distribution width (RBC) [Entitic vol] 53.6 fL 35.1-43.9 [facility] Erythrocyte distribution width (RBC) [Ratio] 16.5 % 11.6-14.6 [facility] Immature granulocytes/100 WBC (Bld) 0.300 % 0.0-0.9 [facility] Comment on above: IG% - Immature Granu locytes (promyelocytes, myelocytes and metamyelocytes) > 1% indicates that a LEFT SHIFT is Present. MCH (RBC) [Entitic mass] 27.9 pg 27.0-32.0 [facility] Nucleated RBC/100 WBC (Bld) [Ratio] 0 % 0-5 [facility] MCHC Auto (RBC) [Mass/Vol]Or dered By: Alexander Steiner on 08-31-2022 MCHC (RBC) [Mass/Vol] 31.7 g/dL 32-36 [facility] No Panel InformationOrdered By: Alexander Steiner on 08-31-2022 Estimated GFR (MDRD) Amer 123 mL/min >60 [facility] Comment on above: GFR Calc Estimated GFR (MDRD) Non-Af Amer 101 mL/min >60 [facility] Comment on above: Non- GFR Calc Thyroid Stimulating Hormone (TSH) 4.32 uIU/mL 0.358-3.74 [facility] Vitamin D 25-Hydroxy 42.4 ng/mL [facility] Comment on above: Vitamin D 25(OH) Sta tus Range Deficiency <20 ng/mL (50nmol/L) Insufficiency 20 - 30 ng/mL (50 - 75 nmol/L) Sufficiency 30 - 100 ng/mL (75 - 250 nmol/L) Toxicity >100 ng/mL (>250 nmol/L) Platelets bldOrdered By: Alexander Steiner on 08-31-2022 Platelets (Bld) [#/Vol] 289 10*3/uL 150-450 [facility] Serum or plasma albumin maddie urement (mass/volume)Ordered By: Alexander Steiner on 08-31-2022 Albumin [Mass/Vol] 3.8 g/dL 3.2-5.0 [facility] Serum or plasma albumin/glob ulin mass ratioOrdered By: Alexander Steiner 08-31-2022 Albumin/Globulin [Mass ratio] 1.0 {ratio} 0.9-2.4 [facility] Serum or plasma calcium maddie urement (mass/volume)Ordered By: Alexander Steiner 08-31-2022 Calcium [Mass/Vol] 9.1 mg/dL 8.5-10.1 [facility] Serum or plasma cholesterol in HDL measurement (mass/volume)Ordered By: Alexander Steiner on 08-31-2022 Cholesterol in HDL [Mass/Vol] 81 mg/dL >40 [facility] Comment on above: The drugs N-Acetylcy steine and Metamizole may falsely depress this assay. Reference Range HDL <40 mg/dL Low HDL Cholesterol HDL >or= 60 mg/dL High HDL Cholesterol Serum or plasma cholesterol in VLDL measurement (mass/volume)Ordered By: Alexander Steiner on 08-31-2022 Cholesterol in VLDL [Mass/Vol] 8 mg/dL 5-40 [facility] Serum or plasma creatinine m easurement (mass/volume)Ordered By: Alexander Steiner on 08-31-2022 Creatinine [Mass/Vol] 0.78 mg/dL 0.70-1.30 [facility] Comment on above: The validity of the calculated GFR & GFRAA in patients over 70 years has not been determined. Clinical correlation is essential. Serum or plasma low density lipoprotein (LDL) cholesterol measurement (mass/volume)Ordered By: Alexander Steiner on 08-31-2022 Cholesterol in LDL [Mass/Vol] 60 mg/dL 0-130 [facility] Serum or plasma urea nitroge n measurement (mass/volume)Ordered By: Alexander Steiner on 08-31-2022 Urea nitrogen [Mass/Vol] 15 mg/dL 7-18 [facility] Thin prep Papanicolaou smear with manual screeningOrdered By: Alexander Steiner on 08-31-2022 Thin prep Papanicolaou smear with manual screening 17 U/L 15-37 [facility] Thin prep Papanicolaou smear with manual screening 7 5-15 [facility] Basophil percentageOrdered B y: Dr. Nolen on 08-26-2022 Bilirubin [Mass/Vol] 0.40 mg/dL 0.20-1.00 [facility] Comment on above: For patients on eltr ombopag therapy, use of Dimension [place] TBIL is not recommended. Chloride [Moles/Vol] 113 mmol/L 98-107 [facility] Glucose [Mass/Vol] 112 mg/dL 74-106 [facility] Comment on above: Fasting Glucose resu lt from 100 to 125 mg/dL suggests IMPAIRED HOMEOSTASIS per A.D.A. criteria. Potassium [Moles/Vol] 3.7 mmol/L 3.5-5.1 [facility] Protein [Mass/Vol] 7.1 g/dL 6.4-8.2 [facility] Sodium [Moles/Vol] 143 mmol/L 136-145 [facility] Laboratory - Chemistry and C hemistry - challengeOrdered By: Dr. Nolen on 08-26-2022 ALP [Catalytic activity/Vol] 83 U/L 45-117 [facility] ALT [Catalytic activity/Vol] 20 U/L 16-61 [facility] CO2 [Moles/Vol] 22.0 mmol/L 21.0-32.0 [facility] Free T4 [Mass/Vol] 1.23 ng/dL 0.76-1.46 [facility] Globulin (S) [Mass/Vol] 3.2 g/dL 2.2-4.2 [facility] Urea nitrogen/Creatinine [Mass ratio] 16.3 mg/mg 10-20 [facility] No Panel InformationOrdered By: Dr. Nolen on 08-26-2022 Estimated Creatinine Clearance Calc 62.45 ml/min [facility] Estimated GFR (MDRD) Amer 120 mL/min >60 [facility] Comment on above: GFR Calc Estimated GFR (MDRD) Non-Af Amer 99 mL/min >60 [facility] Comment on above: Non- GFR Calc Thyroid Stimulating Hormone (TSH) 4.95 uIU/mL 0.358-3.74 [facility] Vitamin D 25-Hydroxy 35.2 ng/mL [facility] Comment on above: Vitamin D 25(OH) Sta tus Range Deficiency <20 ng/mL (50nmol/L) Insufficiency 20 - 30 ng/mL (50 - 75 nmol/L) Sufficiency 30 - 100 ng/mL (75 - 250 nmol/L) Toxicity >100 ng/mL (>250 nmol/L) Serum or plasma albumin maddie urement (mass/volume)Ordered By: Dr. Nolen on 08-26-2022 Albumin [Mass/Vol] 3.9 g/dL 3.2-5.0 [facility] Serum or plasma albumin/glob ulin mass ratioOrdered By: Dr. Nolen on 08-26-2022 Albumin/Globulin [Mass ratio] 1.2 {ratio} 0.9-2.4 [facility] Serum or plasma calcium maddie urement (mass/volume)Ordered By: Dr. Nolen on 08-26-2022 Calcium [Mass/Vol] 8.8 mg/dL 8.5-10.1 [facility] Serum or plasma creatinine m easurement (mass/volume)Ordered By: Dr. Nolen on 08-26-2022 Creatinine [Mass/Vol] 0.80 mg/dL 0.70-1.30 [facility] Comment on above: The validity of the calculated GFR & GFRAA in patients over 70 years has not been determined. Clinical correlation is essential. Serum or plasma urea nitroge n measurement (mass/volume)Ordered By: Dr. Nolen on 08-26-2022 Urea nitrogen [Mass/Vol] 13 mg/dL 7-18 [facility] Thin prep Papanicolaou smear with manual screeningOrdered By: Dr. Nolen on 08-26-2022 Thin prep Papanicolaou smear with manual screening 17 U/L 15-37 [facility] Thin prep Papanicolaou smear with manual screening 8 5-15 [facility] No Panel InformationOrdered By: Dr. Otto on 07-16-2022 Prostate Specific Antigen Screen 1.90 ng/mL 0.00-4.00 [facility] Comment on above: This test was perfor med using the TPSA assay method for [employer] chemistry system. Values obtained with differentassay methods cannot be used interchangably.When changing PSA assays in the course of monitoring apatient, additional sequential testing should be carriedout to confirm baseline values. CT [facility] IMPRESSION: 1. Irregular right upper lobe [...] have reviewed and approved this report. U [facility] Radiology Study observation (narrative) [facility] CT Chest WO contrastOrdered By: Rafaela Garcia on 11-10-2021 [facility] Work Phone: Absolute lymphocyte counton 08-25-2021 Lymphocytes Auto (Unsp spec) [#/Vol] 1.72 10*3/uL 0.83-4.51 [facility] Work Phone: [phone] Basophil percentageon 2021 Basophils/100 WBC (Bld) 1.2 % 0-1 [facility] Work Phone: [phone] Bilirubin [Mass/Vol] 0.40 mg/dL 0.20-1.00 [facility] Work Phone: [phone] Comment on above: For patients on eltr ombopag therapy, use of Dimension [place] TBIL is not recommended. Chloride [Moles/Vol] 107 mmol/L 98-107 [facility] Work Phone: Eosinophils/100 WBC (Bld) 4.6 % 0-5 [facility] Work Phone: Glucose [Mass/Vol] 106 mg/dL 74-106 [facility] Work Phone: Comment on above: Fasting Glucose resu lt from 100 to 125 mg/dL suggests IMPAIRED HOMEOSTASIS per A.D.A. criteria. Neutrophils (Bld) [#/Vol] 4.1 10*3/uL 2.0-7.7 [facility] Work Phone: [phone] Neutrophils/100 WBC (Bld) 58.8 % 47-70 [facility] Work Phone: [phone] Potassium [Moles/Vol] 3.0 mmol/L 3.5-5.1 [facility] Work Phone: [phone] Protein [Mass/Vol] 7.3 g/dL 6.4-8.2 [facility] Work Phone: [phone] Sodium [Moles/Vol] 142 mmol/L 136-145 [facility] Work Phone: [phone] Testosterone [Mass/Vol] 791.07 ng/dL [facility] Work Phone: Comment on above: CENTRAL 90% REFERENC E RANGES MALE AGE <50 197.44 - 669.58 ng/dL MALE AGE > or = 50 187.72 - 684.19 ng/dL FEMALE AGE <50 8.38 - 35.01 ng/dL FEMALE AGE > or = 50 <7.00 - 35.92 ng/dL Effective as of 10/20/20 WBC (Bld) [#/Vol] 6.9 10*3/uL 4.4-11.0 [facility] Work Phone: Blood erythrocytes count (nu mber/volume)on 08-25-2021 RBC (Bld) [#/Vol] 4.60 10*6/uL 4.6-6.2 [facility] Work Phone: Blood hemoglobin measurement (mass/volume)on 08-25-2021 Hemoglobin (Bld) [Mass/Vol] 13.1 g/dL 13.0-16.5 [facility] Work Phone: Blood lymphocytes/100 leukoc yteson 08-25-2021 Lymphocytes/100 WBC (Bld) 25.0 % 19-41 [facility] Work Phone: Blood monocytes/100 leukocyt eson 08-25-2021 Monocytes/100 WBC (Bld) 10.0 % 0-10 [facility] Work Phone: Blood platelet mean volumeon 08-25-2021 Platelet mean volume (Bld) [Entitic vol] 10.5 fL 6.2-12.0 [facility] Work Phone: Determination of erythrocyte mean corpuscular volume (MCV)on 08-25-2021 MCV (RBC) [Entitic vol] 87.4 fL 80-94 [facility] Work Phone: Hematocrit Auto (Bld) [Volum e fraction]on 08-25-2021 Hematocrit (Bld) [Volume fraction] 40.2 % 40-54 [facility] Work Phone: Laboratory - Chemistry and C hemistry - challengeon 08-25-2021 ALP [Catalytic activity/Vol] 102 U/L 45-117 [facility] Work Phone: ALT [Catalytic activity/Vol] 20 U/L 16-61 [facility] Work Phone: CO2 [Moles/Vol] 25.0 mmol/L 21.0-32.0 [facility] Work Phone: Globulin (S) [Mass/Vol] 3.7 g/dL 2.2-4.2 [facility] Work Phone: Urea nitrogen/Creatinine [Mass ratio] 14.8 mg/mg 10-20 [facility] Work Phone: Laboratory - Hematology and Cell countson 08-25-2021 Erythrocyte distribution width (RBC) [Entitic vol] 45.0 fL 35.1-43.9 [facility] Work Phone: Erythrocyte distribution width (RBC) [Ratio] 14.1 % 11.6-14.6 [facility] Work Phone: Immature granulocytes/100 WBC (Bld) 0.400 % 0.0-0.9 [facility] Work Phone: Comment on above: IG% - Immature Granu locytes (promyelocytes, myelocytes and metamyelocytes) > 1% indicates that a LEFT SHIFT is Present. MCH (RBC) [Entitic mass] 28.5 pg 27.0-32.0 [facility] Work Phone: Nucleated RBC/100 WBC (Bld) [Ratio] 0 % 0-5 [facility] Work Phone: MCHC Auto (RBC) [Mass/Vol]on 08-25-2021 MCHC (RBC) [Mass/Vol] 32.6 g/dL 32-36 [facility] Work Phone: No Panel Informationon 08-25 Estimated GFR (MDRD) Amer 118 mL/min >60 [facility] Work Phone: Comment on above: GFR Calc Estimated GFR (MDRD) Non-Af Amer 97 mL/min >60 [facility] Work Phone: Comment on above: Non- GFR Calc Thyroid Stimulating Hormone (TSH) 4.99 uIU/mL 0.358-3.74 [facility] Work Phone: Vitamin D 25-Hydroxy 42.3 ng/mL [facility] Work Phone: Comment on above: Vitamin D 25(OH) Sta tus Range Deficiency <20 ng/mL (50nmol/L) Insufficiency 20 - 30 ng/mL (50 - 75 nmol/L) Sufficiency 30 - 100 ng/mL (75 - 250 nmol/L) Toxicity >100 ng/mL (>250 nmol/L) Platelets bldon 08-25-2021 Platelets (Bld) [#/Vol] 286 10*3/uL 150-450 [facility] Work Phone: Serum or plasma albumin maddie urement (mass/volume)on 08-25-2021 Albumin [Mass/Vol] 3.6 g/dL 3.2-5.0 [facility] Work Phone: Serum or plasma albumin/glob ulin mass ratioon 08-25-2021 Albumin/Globulin [Mass ratio] 1.0 {ratio} 0.9-2.4 [facility] Work Phone: Serum or plasma calcium maddie urement (mass/volume)on 08-25-2021 Calcium [Mass/Vol] 9.2 mg/dL 8.5-10.1 [facility] Work Phone: Serum or plasma creatinine m easurement (mass/volume)on 08-25-2021 Creatinine [Mass/Vol] 0.81 mg/dL 0.70-1.30 [facility] Work Phone: Comment on above: The validity of the calculated GFR & GFRAA in patients over 70 years has not been determined. Clinical correlation is essential. Serum or plasma urea nitroge n measurement (mass/volume)on 08-25-2021 Urea nitrogen [Mass/Vol] 12 mg/dL 7-18 [facility] Work Phone: [phone] Thin prep Papanicolaou smear with manual screeningon 08-25-2021 Thin prep Papanicolaou smear with manual screening 18 U/L 15-37 [facility] Work Phone: [phone] Thin prep Papanicolaou smear with manual screening 10 5-15 [facility] Work Phone: Basophil percentageon 2021 Bilirubin [Mass/Vol] 0.60 mg/dL 0.20-1.00 [facility] Work Phone: Comment on above: For patients on eltr ombopag therapy, use of Dimension [place] TBIL is not recommended. Chloride [Moles/Vol] 111 mmol/L 98-107 [facility] Work Phone: Glucose [Mass/Vol] 96 mg/dL 74-106 [facility] Work Phone: [phone] Potassium [Moles/Vol] 4.0 mmol/L 3.5-5.1 [facility] Work Phone: [phone] Protein [Mass/Vol] 7.3 g/dL 6.4-8.2 [facility] Work Phone: [phone] Sodium [Moles/Vol] 139 mmol/L 136-145 [facility] Work Phone: Laboratory - Chemistry and C hemistry - challengeon 07-09-2021 ALP [Catalytic activity/Vol] 84 U/L 45-117 [facility] Work Phone: ALT [Catalytic activity/Vol] 21 U/L 16-61 [facility] Work Phone: CO2 [Moles/Vol] 23.0 mmol/L 21.0-32.0 [facility] Work Phone: [phone] Free T4 [Mass/Vol] 1.35 ng/dL 0.76-1.46 [facility] Work Phone: [phone] Globulin (S) [Mass/Vol] 3.4 g/dL 2.2-4.2 [facility] Work Phone: Urea nitrogen/Creatinine [Mass ratio] 14.9 mg/mg 10- [facility] Work Phone: No Panel Informationon 07-09 Estimated GFR (MDRD) Amer 119 mL/min >60 [facility] Work Phone: Comment on above: GFR Calc Estimated GFR (MDRD) Non-Af Amer 98 mL/min >60 [facility] Work Phone: Comment on above: Non- GFR Calc Thyroid Stimulating Hormone (TSH) 3.05 uIU/mL 0.358-3.74 [facility] Work Phone: Vitamin D 25-Hydroxy 39.2 ng/mL [facility] Work Phone: Comment on above: Vitamin D 25(OH) Sta tus Range Deficiency <20 ng/mL (50nmol/L) Insufficiency 20 - 30 ng/mL (50 - 75 nmol/L) Sufficiency 30 - 100 ng/mL (75 - 250 nmol/L) Toxicity >100 ng/mL (>250 nmol/L) Serum or plasma albumin maddie urement (mass/volume)on 07-09-2021 Albumin [Mass/Vol] 3.9 g/dL 3.2-5.0 [facility] Work Phone: Serum or plasma albumin/glob ulin mass ratioon 07-09-2021 Albumin/Globulin [Mass ratio] 1.1 {ratio} 0.9-2.4 [facility] Work Phone: Serum or plasma calcium maddie urement (mass/volume)on 07-09-2021 Calcium [Mass/Vol] 8.7 mg/dL 8.5-10.1 [facility] Work Phone: Serum or plasma creatinine m easurement (mass/volume)on 07-09-2021 Creatinine [Mass/Vol] 0.81 mg/dL 0.70-1.30 [facility] Work Phone: Comment on above: The validity of the calculated GFR & GFRAA in patients over 70 years has not been determined. Clinical correlation is essential. Serum or plasma urea nitroge n measurement (mass/volume)on 07-09-2021 Urea nitrogen [Mass/Vol] 12 mg/dL 7-18 [facility] Work Phone: Thin prep Papanicolaou smear with manual screeningon 07-09-2021 Thin prep Papanicolaou smear with manual screening 21 U/L 15-37 [facility] Work Phone: Thin prep Papanicolaou smear with manual screening 5 5-15 [facility] Work Phone: Laboratory - Chemistry and C hemistry - challengeon 05-11-2021 Free T4 [Mass/Vol] 1.22 ng/dL 0.76-1.46 [facility] Work Phone: No Panel Informationon 05-11 Thyroid Stimulating Hormone (TSH) 6.17 uIU/mL 0.358-3.74 [facility] Work Phone: CT CHEST WITH CONTRASTon IMPRESSION: [...] wall lesions are identified. Additional Findings: None. Executive Asst: Executive Asst imaging reveals no abnormalities not already visible on the cross-section images. [facility] Edouard Escobar MD, PhD - 11/12/2020 EXAM: [...] wall lesions are identified. Additional Findings: None. Executive Asst: Executive Asst imaging reveals no abnormalities not already visible [...] of benign disease. 2. Interval thyroidectomy. U [facility] CT CHEST WITH CONTRASTOrdere d By: Edouard Escobar on 11-12-2020 [facility] Work Phone: CREAT/GFRon 11-11-2020 Creatinine [Mass/Vol] 0.67 mg/dL Low 0.70 - 1.30 mg/dL [facility] Est Gfr, (Poc Device) >60 >=60 mL/min/1.73 sq m [facility] Interpretation and review of laboratory results Abnormal [facility] Test performed at address of the patient encounter. 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 Algorithms for management of incidental imaging findings can be found on the [facility] Intranet Sharepoint site at: [email or web address] [email or web address] [email or web address] [email or web address] Pension Consultant: CORNELL Transcribe Date/Time: Jul 14 2020 8:39A Dictated by : JUAN SHEEHAN MD This examination was interpreted and the report reviewed and electronically signed by: JUAN SHEEHAN MD on Jul 14 2020 9:10AM EST [id number] CN ACTIONABLE Invalid Interpretation Code [facility] Vital Signs Date Time Vital Sign Value Performing Clinician Facility 01-10-2025 09:30-0400 Body weight 50.[address] Alexander Steiner MD Work Phone: [facility] 01-03-2025 14:13-0400 Body weight 49.[address] Alexander Steiner MD Work Phone: [facility] 12-28-2024 13:21-0400 Heart rate 78 /min Dr. Alexander Steiner MD Work Phone: 9(093)171-395816 [place] [address] 12-28-2024 13:21-0400 Respiratory rate 17 /min Dr. Alexander Steiner MD Work Phone: 7(613)301-976566 [place] [address] 12-28-2024 09:00-0400 Body temperature 97.7 [degF] Dr. Alexander Steiner MD Work Phone: 8(809)009-874066 [place] [address] 12-28-2024 09:00-0400 Diastolic blood pressure 83 mm[Hg] Dr. Alexander Steiner MD Work Phone: 2(182)981-374166 [place] [address] 12-28-2024 09:00-0400 SaO2% (BldA) [Mass fraction] 96 % Dr. Alexander Steiner MD Work Phone: 9(940)378-783466 [place] [address] 12-28-2024 09:00-0400 Systolic blood pressure 169 mm[Hg] Dr. Alexander Steiner MD Work Phone: 4(585)738-110666 [place] [address] 12-26-2024 21:09-0400 Body height 170.[address] Alexander Steiner MD Work Phone: 5(223)919-845566 [place] [address] 12-26-2024 21:09-0400 Body mass index (BMI) [Ratio] 17.6 kg/m2 Dr. Alexander Steiner MD Work Phone: 5(775)504-803266 [place] [address] 12-26-2024 21:09-0400 Body weight [address] Alexander Steiner MD Work Phone: 4(967)640-874266 [place] [address] 12-26-2024 15:26-0400 Inhaled oxygen flow rate 2 L/min Dr. Alexander Steiner MD Work Phone: 3(046)035-042466 [place] [address] 12-11-2024 15:28-0400 Body temperature 98.2 [degF] Dr. Alexander Steiner MD Work Phone: 8(044)863-778166 [place] [address] 12-11-2024 15:28-0400 Diastolic blood pressure 70 mm[Hg] Dr. Alexander Steiner MD Work Phone: 8(896)221-847066 [place] [address] 12-11-2024 15:28-0400 Heart rate 80 /min Dr. Alexander Steiner MD Work Phone: 2(088)073-243266 [place] [address] 12-11-2024 15:28-0400 Respiratory rate 30 /min Dr. Alexander Steiner MD Work Phone: 1(618)372-709166 [place] [address] 12-11-2024 15:28-0400 SaO2% (BldA) [Mass fraction] 92 % Dr. Alexander Steiner MD Work Phone: 9(770)668-677466 [place] [address] 12-11-2024 15:28-0400 Systolic blood pressure 139 mm[Hg] Dr. Alexander Steiner MD Work Phone: 5(749)410-474866 [place] [address] 12-11-2024 09:18-0400 Body height 170.[address] Alexander Steiner MD Work Phone: 4(493)705-802966 [place] [address] 12-11-2024 09:18-0400 Body mass index (BMI) [Ratio] 17.6 kg/m2 Dr. Alexander Steiner MD Work Phone: 3(326)213-224666 [place] [address] 12-11-2024 09:18-0400 Body weight [address] Alexander Steiner MD Work Phone: 1(892)839-599566 [place] [address] 12-04-2024 13:25-0400 Body height 170.[address] Alexander Steiner MD Work Phone: 7(514)819-517766 [place] [address] 12-04-2024 13:25-0400 Body mass index (BMI) [Ratio] 18 kg/m2 Dr. Alexander Steiner MD Work Phone: 3(595)371-189266 [place] [address] 12-04-2024 13:25-0400 Body weight 52.[address] Alexander Steiner MD Work Phone: 6(726)712-236466 [place] [address] 12-04-2024 13:25-0400 Diastolic blood pressure 70 mm[Hg] Dr. Alexander Steiner MD Work Phone: 9(041)883-566966 [place] [address] 12-04-2024 13:25-0400 Heart rate 105 /min Dr. Alexander Steiner MD Work Phone: 0(277)446-601766 [place] [address] 12-04-2024 13:25-0400 Respiratory rate 18 /min Dr. Alexander Steiner MD Work Phone: 4(783)460-685666 [place] [address] 12-04-2024 13:25-0400 SaO2% (BldA) [Mass fraction] 98 % Dr. Alexander Steiner MD Work Phone: [facility] 12-04-2024 13:25-0400 Systolic blood pressure 127 mm[Hg] Dr. Alexander Steiner MD Work Phone: [facility] 12-02-2024 13:31-0400 Diastolic blood pressure 78 mm[Hg] Dr. Alexander Steiner MD Work Phone: 4(505)239-761416 [place] [address] 12-02-2024 13:31-0400 Heart rate 72 /min Dr. Alexander Steiner MD Work Phone: 1(448)236-196716 [place] [address] 12-02-2024 13:31-0400 Respiratory rate 16 /min Dr. Alexander Steiner MD Work Phone: 9(698)516-977116 [place] [address] 12-02-2024 13:31-0400 Systolic blood pressure 150 mm[Hg] Dr. Alexander Steiner MD Work Phone: 8(210)615-485116 [place] [address] 12-02-2024 12:59-0400 Body temperature 97 [degF] Dr. Alexander Steiner MD Work Phone: 2(636)097-345716 [place] [address] 12-02-2024 12:59-0400 SaO2% (BldA) [Mass fraction] 99 % Dr. Alexander Steiner MD Work Phone: [facility] 12-02-2024 09:16-0400 Body mass index (BMI) [Ratio] 18.1 kg/m2 Dr. Alexander Steiner MD Work Phone: [facility] 12-02-2024 09:16-0400 Body weight 52.[address] Alexander Steiner MD Work Phone: [facility] 11-15-2024 10:24-0400 Diastolic blood pressure 71 mm[Hg] Saurav Machuca MD Work Phone: [facility] 11-15-2024 10:24-0400 Heart rate 56 /min Saurav Machuca MD Work Phone: [facility] 11-15-2024 10:24-0400 SaO2% (BldA) [Mass fraction] 95 % Saurav Machuca MD Work Phone: [facility] 11-15-2024 10:24-0400 Systolic blood pressure 144 mm[Hg] Saurav Machuca MD Work Phone: [facility] 11-15-2024 09:44-0400 Respiratory rate 16 /min Saurav Machuca MD Work Phone: [facility] 11-15-2024 07:20-0400 Body mass index (BMI) [Ratio] 18.61 kg/m2 Saurav Machuca MD Work Phone: [facility] 11-15-2024 07:20-0400 Body temperature 98.2 [degF] Saurav Machuca MD Work Phone: [facility] 11-15-2024 07:20-0400 Body weight 53.9 kg Saurav Machuca MD Work Phone: [facility] 10-31-2024 13:05-0400 Body height 170.[address] Alexander Steiner MD Work Phone: [facility] 10-31-2024 13:05-0400 Body mass index (BMI) [Ratio] 18.2 kg/m2 Dr. Alexander Steiner MD Work Phone: [facility] 10-31-2024 13:05-0400 Body temperature 97.4 [degF] Dr. Alexander Steiner MD Work Phone: [facility] 10-31-2024 13:05-0400 Body weight 52.[address] Alexander Steiner MD Work Phone: [facility] 10-31-2024 13:05-0400 Diastolic blood pressure 69 mm[Hg] Dr. Alexander Steiner MD Work Phone: [facility] 10-31-2024 13:05-0400 Heart rate 74 /min Dr. Alexander Steiner MD Work Phone: [facility] 10-31-2024 13:05-0400 Respiratory rate 14 /min Dr. Alexander Steiner MD Work Phone: [facility] 10-31-2024 13:05-0400 SaO2% (BldA) [Mass fraction] 97 % Dr. Alexander Steiner MD Work Phone: [facility] 10-31-2024 13:05-0400 Systolic blood pressure 172 mm[Hg] Dr. Alexander Steiner MD Work Phone: 3(474)761-705716 [place] [address] 10-21-2024 11:04-0400 Body temperature 96.5 [degF] Dr. Alexander Steiner MD Work Phone: 7(809)086-745916 [place] [address] 10-21-2024 11:04-0400 Diastolic blood pressure 55 mm[Hg] Dr. Alexander Steiner MD Work Phone: 9(770)978-262916 [place] [address] 10-21-2024 11:04-0400 Heart rate 61 /min Dr. Alexander Steiner MD Work Phone: 5(636)747-759416 [place] [address] 10-21-2024 11:04-0400 Respiratory rate 16 /min Dr. Alexander Steiner MD Work Phone: 7(524)424-603666 [place] [address] 10-21-2024 11:04-0400 SaO2% (BldA) [Mass fraction] 100 % Dr. Alexander Steiner MD Work Phone: [facility] 10-21-2024 11:04-0400 Systolic blood pressure 148 mm[Hg] Dr. Alexander Steiner MD Work Phone: 1(649)428-447416 [place] [address] 10-21-2024 10:12-0400 Body height 170.[address] Alexander Steiner MD Work Phone: [facility] 10-21-2024 10:12-0400 Body mass index (BMI) [Ratio] 18.8 kg/m2 Dr. Alexander Steiner MD Work Phone: 0(808)849-465916 [place] [address] 10-21-2024 10:12-0400 Body weight 54.[address] 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 Phone: [facility] 09-30-2024 11:32-0400 Body temperature 97.5 [degF] Valerie Joe RETAIL [employer]PER[employer]OR[employer]ENIOR [employer] SQL DEVELOPER Work Phone: [facility] 09-30-2024 11:32-0400 Body weight 53.89 kg Valerie Bloomir RETAIL [employer] SUPER[employer]OR[employer]IOR [employer] SQL DEVELOPER Work Phone: [facility] 09-30-2024 11:32-0400 Diastolic blood pressure 68 mm[Hg] Valerie Joe RETAIL [employer] SUPER[employer]OR.SENIOR [employer] SQL DEVELOPER Work Phone: [facility] 09-30-2024 11:32-0400 SaO2% (BldA) [Mass fraction] 98 % Valerie Bloomir RETAIL [employer]PER[employer]OR[employer]SENIOR [employer] SQL DEVELOPER Work Phone: [facility] 09-30-2024 11:32-0400 Systolic blood pressure 124 mm[Hg] Valerie Joe RET[employer]PER[employer]OR[employer]SENIOR [employer] SQL DEVELOPER Work Phone: [facility] 2024 14:26-0400 Body temperature 98.4 [degF] Dr. Alexander Steiner MD Work Phone: [facility] 2024 14:26-0400 Diastolic blood pressure 58 mm[Hg] Dr. Alexander Steiner MD Work Phone: [facility] 2024 14:26-0400 Heart rate 88 /min Dr. Alexander Steiner MD Work Phone: [facility] 2024 14:26-0400 Respiratory rate 14 /min Dr. Alexander Steiner MD Work Phone: [facility] 2024 14:26-0400 SaO2% (BldA) [Mass fraction] 96 % Dr. Alexander Steiner MD Work Phone: [facility] 2024 14:26-0400 Systolic blood pressure 102 mm[Hg] Dr. Alexander Steiner MD Work Phone: [facility] 08-29-2024 07:21-0400 Body mass index (BMI) [Ratio] 18.8 kg/m2 Dr. Alexander Steiner MD Work Phone: [facility] 08-29-2024 07:21-0400 Body weight 54.[address] Alexander Steiner MD Work Phone: [facility] 08-29-2024 07:21-0400 Diastolic blood pressure 77 mm[Hg] Dr. Alexander Steiner MD Work Phone: 3(862)099-383216 [place] [address] 08-29-2024 07:21-0400 Heart rate 93 /min Dr. Alexander Steiner MD Work Phone: 7(546)080-963516 [place] [address] 08-29-2024 07:21-0400 Respiratory rate 18 /min Dr. Alexander Steiner MD Work Phone: 0(604)156-557116 [place] [address] 08-29-2024 07:21-0400 SaO2% (BldA) [Mass fraction] 97 % Dr. Alexander Steiner MD Work Phone: [facility] 08-29-2024 07:21-0400 Systolic blood pressure 126 mm[Hg] Dr. Alexander Steiner MD Work Phone: [facility] 07-08-2024 11:09-0400 Body height 170.[address] Alexander Steiner MD Work Phone: [facility] 07-08-2024 11:09-0400 Body mass index (BMI) [Ratio] 19.1 kg/m2 Dr. Alexander Steiner MD Work Phone: 1(070)645-248216 [place] [address] 07-08-2024 11:09-0400 Body temperature 98.1 [degF] Dr. Alexander Steiner MD Work Phone: [facility] 07-08-2024 11:09-0400 Body weight 55.[address] Alexander Steiner MD Work Phone: [facility] 07-08-2024 11:09-0400 Diastolic blood pressure 72 mm[Hg] Dr. Alexander Steiner MD Work Phone: [facility] 07-08-2024 11:09-0400 Heart rate 83 /min Dr. Alexander Steiner MD Work Phone: [facility] 07-08-2024 11:09-0400 Respiratory rate 16 /min Dr. Alexander Steiner MD Work Phone: [facility] 07-08-2024 11:09-0400 SaO2% (BldA) [Mass fraction] 98 % Dr. Alexander Steiner MD Work Phone: [facility] 07-08-2024 11:09-0400 Systolic blood pressure 138 mm[Hg] Dr. Alexander Steiner MD Work Phone: [facility] 02-29-2024 11:32-0500 Body height 170.[address] Alejandro Machado DO Work Phone: [facility] 02-29-2024 11:32-0500 Body mass index (BMI) [Ratio] 20.2 kg/m2 Dr. Alejandro Machado DO Work Phone: [facility] 02-29-2024 11:32-0500 Body temperature 97.4 [degF] Dr. Alejandro Machado DO Work Phone: [facility] 02-29-2024 11:32-0500 Body weight 58.[address] Alejandro Machado DO Work Phone: [facility] 02-29-2024 11:32-0500 Diastolic blood pressure 73 mm[Hg] Dr. Alejandro Machado DO Work Phone: [facility] 02-29-2024 11:32-0500 Heart rate 76 /min Dr. Alejandro Machado DO Work Phone: [facility] 02-29-2024 11:32-0500 Respiratory rate 18 /min Dr. Alejandro Machado DO Work Phone: [facility] 02-29-2024 11:32-0500 SaO2% (BldA) [Mass fraction] 98 % Dr. Alejandro Machado DO Work Phone: [facility] 02-29-2024 11:32-0500 Systolic blood pressure 121 mm[Hg] Dr. Alejandro Machado DO Work Phone: [facility] 07-27-2023 10:00-0400 Body height 170.[address] Alexander Steiner Work Phone: [facility] 07-27-2023 10:00-0400 Body mass index (BMI) [Ratio] 20.4 kg/m2 Dr. Alexander Steiner Work Phone: [facility] 07-27-2023 10:00-0400 Body temperature 98.8 [degF] Dr. Alexander Steiner Work Phone: [facility] 07-27-2023 10:00-0400 Body weight 59.[address] Alexander Steiner Work Phone: [facility] 07-27-2023 10:00-0400 Diastolic blood pressure 75 mm[Hg] Dr. Alexander Steiner Work Phone: [facility] 07-27-2023 10:00-0400 Heart rate 91 /min Dr. Alexander Steiner Work Phone: [facility] 07-27-2023 10:00-0400 Respiratory rate 18 /min Dr. Alexander Steiner Work Phone: [facility] 07-27-2023 10:00-0400 SaO2% (BldA) [Mass fraction] 94 % Dr. Alexander Steiner Work Phone: [facility] 07-27-2023 10:00-0400 Systolic blood pressure 128 mm[Hg] Dr. Alexander Steiner Work Phone: [facility] 04-27-2023 09:27-0500 Body height 170.[address] Alexander Steiner Work Phone: [facility] 04-27-2023 09:27-0500 Body mass index (BMI) [Ratio] 20.3 kg/m2 Dr. Alexander Steiner Work Phone: [facility] 04-27-2023 09:27-0500 Body temperature 97.6 [degF] Dr. Alexander Steiner Work Phone: [facility] 04-27-2023 09:27-0500 Body weight 58.[address] Alexander Steiner Work Phone: [facility] 04-27-2023 09:27-0500 Diastolic blood pressure 68 mm[Hg] Dr. Alexander Steiner Work Phone: 0(705)636-153316 [place] [address] 04-27-2023 09:27-0500 Heart rate 83 /min Dr. Alexander Steiner Work Phone: 6(137)752-089470 [address] 04-27-2023 09:27-0500 Respiratory rate 18 /min Dr. Alexander Steiner Work Phone: 6(484)229-606670 [address] 04-27-2023 09:27-0500 SaO2% (BldA) [Mass fraction] 95 % Dr. Alexander Steiner Work Phone: 5(084)001-437616 [place] [address] 04-27-2023 09:27-0500 Systolic blood pressure 118 mm[Hg] Dr. Alexander Steiner Work Phone: 1(010)805-440270 [address] 02-23-2023 09:20-0500 Body height 170.[address] Alexander Steiner Work Phone: 3(089)499-635116 [place] [address] 02-23-2023 09:20-0500 Body mass index (BMI) [Ratio] 20.4 kg/m2 Dr. Alexander Steiner Work Phone: [facility] 02-23-2023 09:20-0500 Body temperature 98 [degF] Dr. Alexander Steiner Work Phone: 6(276)429-697916 [place] [address] 02-23-2023 09:20-0500 Body weight 59.[address] Alexander Steiner Work Phone: [facility] 02-23-2023 09:20-0500 Diastolic blood pressure 69 mm[Hg] Dr. Alexander Steiner Work Phone: 4(284)591-518916 [place] [address] 02-23-2023 09:20-0500 Heart rate 73 /min Dr. Alexander Steiner Work Phone: 5(643)919-288966 [place] [address] 02-23-2023 09:20-0500 Respiratory rate 16 /min Dr. Alexander Steiner Work Phone: 6(777)005-843166 [place] [address] 02-23-2023 09:20-0500 SaO2% (BldA) [Mass fraction] 96 % Dr. Alexander Steiner Work Phone: 7(932)566-158666 [place] [address] 02-23-2023 09:20-0500 Systolic blood pressure 122 mm[Hg] Dr. Alexander Steiner Work Phone: 7(832)493-191766 [place] [address] 01-18-2023 13:50-0400 Body mass index (BMI) [Ratio] 20.4 kg/m2 Dr. Alexander Steiner Work Phone: 6(849)209-440866 [place] [address] 01-18-2023 13:50-0400 Body temperature 97.8 [degF] Dr. Alexander Steiner Work Phone: 5(425)476-030466 [place] [address] 01-18-2023 13:50-0400 Body weight 59.[address] Alexander Steiner Work Phone: 4(017)369-902966 [place] [address] 01-18-2023 13:50-0400 Diastolic blood pressure 64 mm[Hg] Dr. Alexander Steiner Work Phone: 8(129)427-225966 [place] [address] 01-18-2023 13:50-0400 Heart rate 85 /min Dr. Alexander Steiner Work Phone: 4(127)883-861266 [place] [address] 01-18-2023 13:50-0400 Respiratory rate 18 /min Dr. Alexander Steiner Work Phone: 8(892)323-097466 [place] [address] 01-18-2023 13:50-0400 SaO2% (BldA) [Mass fraction] 95 % Dr. Alexander Steiner Work Phone: 2(858)413-671316 [place] [address] 01-18-2023 13:50-0400 Systolic blood pressure 135 mm[Hg] Dr. Alexander Steiner Work Phone: 7(350)566-222266 [place] [address] 12-12-2022 10:32-0400 Body mass index (BMI) [Ratio] 20.3 kg/m2 Dr. Alexander Steiner Work Phone: [facility] 12-12-2022 10:32-0400 Body temperature 97.2 [degF] Dr. Alexander Steiner Work Phone: [facility] 12-12-2022 10:32-0400 Body weight 59.[address] Alexander Steiner Work Phone: [facility] 12-12-2022 10:32-0400 Diastolic blood pressure 71 mm[Hg] Dr. Alexander Steiner Work Phone: [facility] 12-12-2022 10:32-0400 Heart rate 78 /min Dr. Alexander Steiner Work Phone: [facility] 12-12-2022 10:32-0400 Respiratory rate 18 /min Dr. Alexander Steiner Work Phone: [facility] 12-12-2022 10:32-0400 SaO2% (BldA) [Mass fraction] 96 % Dr. Alexander Steiner Work Phone: [facility] 12-12-2022 10:32-0400 Systolic blood pressure 154 mm[Hg] Dr. Alexander Steiner Work Phone: [facility] 12-02-2022 08:38-0400 Body temperature 98.01 [degF] Reji Goodrich MD Work Phone: [facility] 12-02-2022 08:38-0400 Diastolic blood pressure 65 mm[Hg] Reji Goodrich MD Work Phone: [facility] 12-02-2022 08:38-0400 Heart rate 67 /min Reji Goodrich MD Work Phone: [facility] 12-02-2022 08:38-0400 Respiratory rate 16 /min Reji Goodrich MD Work Phone: [facility] 12-02-2022 08:38-0400 SaO2% (BldA) [Mass fraction] 95 % Reji Goodrich MD Work Phone: [facility] 12-02-2022 08:38-0400 Systolic blood pressure 140 mm[Hg] Reji Goodrich MD Work Phone: [facility] 12-02-2022 06:09-0400 Body height 170.2 cm Reji Goodrich MD Work Phone: [facility] 12-02-2022 06:09-0400 Body mass index (BMI) [Ratio] 20.05 kg/m2 Reji Goodrich MD Work Phone: [facility] 12-02-2022 06:09-0400 Body weight 58.06 kg Reji Goodrich MD Work Phone: [facility] 11-04-2022 10:10-0400 Body height 170.2 cm [facility] Advanced Practice Provider [facility] 11-04-2022 10:10-0400 Body mass index (BMI) [Ratio] 20.42 kg/m2 [facility] Advanced Practice Provider [facility] 11-04-2022 10:10-0400 Body temperature 97.5 [degF] [facility] Advanced Practice Provider [facility] 11-04-2022 10:10-0400 Body weight 59.15 kg [facility] Advanced Practice Provider [facility] 11-04-2022 10:10-0400 Diastolic blood pressure 55 mm[Hg] [facility] Advanced Practice Provider [facility] 11-04-2022 10:10-0400 Heart rate 75 /min [facility] Advanced Practice Provider [facility] 11-04-2022 10:10-0400 Respiratory rate 16 /min [facility] Advanced Practice Provider [facility] 11-04-2022 10:10-0400 SaO2% (BldA) [Mass fraction] 95 % [facility] Advanced Practice Provider [facility] 11-04-2022 10:10-0400 Systolic blood pressure 119 mm[Hg] [facility] [facility] Advanced Practice Provider [facility] 08-26-2022 09:54-0400 Body temperature 96.2 [degF] Dr. Alexander Steiner Work Phone: [facility] 08-26-2022 09:54-0400 Diastolic blood pressure 48 mm[Hg] Dr. Alexander Steiner Work Phone: [facility] 08-26-2022 09:54-0400 Heart rate 65 /min Dr. Alexander Steiner Work Phone: [facility] 08-26-2022 09:54-0400 Respiratory rate 16 /min Dr. Alexander Steiner Work Phone: [facility] 08-26-2022 09:54-0400 SaO2% (BldA) [Mass fraction] 99 % Dr. Alexander Steiner Work Phone: [facility] 08-26-2022 09:54-0400 Systolic blood pressure 123 mm[Hg] Dr. Alexander Steiner Work Phone: [facility] 08-26-2022 09:17-0400 Body height 170.[address] Alexander Steiner Work Phone: [facility] 08-26-2022 09:17-0400 Body mass index (BMI) [Ratio] 20.3 kg/m2 Dr. Alexander Steiner Work Phone: [facility] 08-26-2022 09:17-0400 Body weight 58.[address] Alexander Steiner Work Phone: [facility] 07-05-2022 09:50-0400 Body height 170.[address] Alexander Steiner Work Phone: [facility] 07-05-2022 09:50-0400 Body mass index (BMI) [Ratio] 21 kg/m2 Dr. Alexander Steiner Work Phone: [facility] 07-05-2022 09:50-0400 Body temperature 98.2 [degF] Dr. Alexander Steiner Work Phone: [facility] 07-05-2022 09:50-0400 Body weight [address] Alexander Steiner Work Phone: [facility] 07-05-2022 09:50-0400 Diastolic blood pressure 64 mm[Hg] Dr. Alexander Steiner Work Phone: [facility] 07-05-2022 09:50-0400 Heart rate 93 /min Dr. Alexander Steiner Work Phone: [facility] 07-05-2022 09:50-0400 Respiratory rate 20 /min Dr. Alexander Steiner Work Phone: [facility] 07-05-2022 09:50-0400 SaO2% (BldA) [Mass fraction] 92 % Dr. Alexander Steiner Work Phone: [facility] 07-05-2022 09:50-0400 Systolic blood pressure 124 mm[Hg] Dr. Alexander Steiner Work Phone: [facility] 04-26-2022 08:31-0500 Body mass index (BMI) [Ratio] 21.2 kg/m2 Dr. Alexander Steiner Work Phone: [facility] 04-26-2022 08:31-0500 Body weight 61.[address] Alexander Steiner Work Phone: [facility] 04-26-2022 08:31-0500 Diastolic blood pressure 68 mm[Hg] Dr. Alexander Steiner Work Phone: [facility] 04-26-2022 08:31-0500 Heart rate 92 /min Dr. Alexander Steiner Work Phone: [facility] 04-26-2022 08:31-0500 Respiratory rate 16 /min Dr. Alexander Steiner Work Phone: [facility] 04-26-2022 08:31-0500 Systolic blood pressure 134 mm[Hg] Dr. Alexnader Steiner Work Phone: [phone] [place] [address] 11-10-2021 11:46-0400 Body height 170.2 cm Micah Trinh MD Work Phone: [facility] 11-10-2021 11:46-0400 Body mass index (BMI) [Ratio] 20.74 kg/m2 Micah Trinh MD Work Phone: [facility] 11-10-2021 11:46-0400 Body temperature 97.3 [degF] Micah Trinh MD Work Phone: [facility] 11-10-2021 11:46-0400 Body weight 60.06 kg Micah Trinh MD Work Phone: [facility] 11-10-2021 11:46-0400 Diastolic blood pressure 64 mm[Hg] Micah Trinh MD Work Phone: [facility] 11-10-2021 11:46-0400 Heart rate 87 /min Micah Trinh MD Work Phone: [facility] 11-10-2021 11:46-0400 Respiratory rate 16 /min Micah Trinh MD Work Phone: [facility] 11-10-2021 11:46-0400 SaO2% (BldA) [Mass fraction] 96 % Micah Trinh MD Work Phone: [facility] 11-10-2021 11:46-0400 Systolic blood pressure 136 mm[Hg] Micah Trinh MD Work Phone: [facility] 08-26-2021 13:42-0400 Body height 170.18 cm [facility] Work Phone: 08-26-2021 13:42-0400 Body mass index (BMI) [Ratio] 20.7 kg/m2 [facility] Work Phone: 08-26-2021 13:42-0400 Body temperature 98 [degF] [facility] Work Phone: 08-26-2021 13:42-0400 Body weight 59.87 kg [facility] Work Phone: 08-26-2021 13:42-0400 Diastolic blood pressure 60 mm[Hg] [facility] Work Phone: 08-26-2021 13:42-0400 Heart rate 86 /min [facility] Work Phone: 08-26-2021 13:42-0400 Respiratory rate 16 /min [facility] Work Phone: 08-26-2021 13:42-0400 SaO2% (BldA) [Mass fraction] 94 % [facility] Work Phone: 08-26-2021 13:42-0400 Systolic blood pressure 141 mm[Hg] [facility] Work Phone: 04-20-2021 07:12-0500 Body height 170.[address] Alexander Steiner Work Phone: [facility] Work Phone: 04-20-2021 07:12-0500 Body weight 62.[address] Alexander Steiner Work Phone: [facility] Work Phone: 04-20-2021 07:12-0500 Diastolic blood pressure 75 mm[Hg] Dr. Alexander Steiner Work Phone: [facility] Work Phone: 04-20-2021 07:12-0500 Heart rate 79 /min Dr. Alexander Steiner Work Phone: [facility] Work Phone: 04-20-2021 07:12-0500 Respiratory rate 18 /min Dr. Alexander Steiner Work Phone: [facility] Work Phone: 04-20-2021 07:12-0500 SaO2% (BldA) [Mass fraction] 98 % Dr. Alexander Steiner Work Phone: [facility] Work Phone: 04-20-2021 07:12-0500 Systolic blood pressure 135 mm[Hg] Dr. Alexander Steiner Work Phone: [facility] Work Phone: 11-11-2020 16:08-0400 Body mass index (BMI) [Ratio] 20.31 kg/m2 Micah Trinh MD Work Phone: [facility] 11-11-2020 16:08-0400 Body temperature 97.9 [degF] Micah Trinh MD Work Phone: [facility] 11-11-2020 16:08-0400 Body weight 58.83 kg Micah Trinh MD Work Phone: [facility] 11-11-2020 16:08-0400 Diastolic blood pressure 72 mm[Hg] Micah Trinh MD Work Phone: [facility] 11-11-2020 16:08-0400 Heart rate 81 /min Micah Trinh MD Work Phone: [facility] 11-11-2020 16:08-0400 Respiratory rate 18 /min Micah Trinh MD Work Phone: [facility] 11-11-2020 16:08-0400 SaO2% (BldA) [Mass fraction] 96 % Micah Trinh MD Work Phone: [facility] 11-11-2020 16:08-0400 Systolic blood pressure 150 mm[Hg] Micah Trinh MD Work Phone: [facility] 11-11-2020 15:12-0400 Diastolic blood pressure 73 mm[Hg] Ingrid Lebron PA-C Work Phone: [facility] 11-11-2020 15:12-0400 Systolic blood pressure 145 mm[Hg] Ingrid Lebron PA-C Work Phone: [facility] 10-14-2020 14:590400 Body mass index (BMI) [Ratio] 20.3 kg/m2 Dr. Alexander Steiner Work Phone: [facility] Work Phone: Encounters Encounter Date Encounter Type Care Provider Facility Start: 01-23-2025 Encounter for other preprocedural examination [facility] Start: 01-17-2025 End: 01-17-2025 ambulatory Ray Demiter Facility:[facility] Start: 01-15-2025 End: 01-15-2025 ambulatory Alexander Steiner Facility:[facility] Start: 01-10-2025 End: 01-10-[address] Zuleyma Storm MD -[facility] Work Phone: Start: 01-10-2025 End: 01-10-[address] Alexander Steiner MD Work Phone: -[facility] Start: 01-06-2025 End: 01-06-[address] Alexander Steiner MD -Laboratory [address] Start: 01-06-2025 End: 01-06-2025 ambulatory Alexander Steiner Facility:[facility] Start: 01-03-2025 End: 01-03-[address] Zuleyma Storm MD -[facility] Work Phone: Start: 01-03-2025 End: 01-03-[address] Alexander Steiner MD Work Phone: -[facility] Start: 12-31-2024 End: 12-31-[address] Zuleyma Storm MD -Laboratory Work Phone: Start: 12-31-2024 End: 12-31-2024 [facility] Start: 12-28-2024 Non-patient / Non-visit Dr. Juliana Fisher MD -[facility] Work Phone: Start: 12-27-2024 ambulatory Alexander Steiner [facility] Start: 12-27-2024 End: 12-28-2024 Evaluation and management of inpatient Dr. Zuleyma Storm MD -Medical Surgical 3 Work Phone: Start: 12-27-2024 ambulatory Alexander Steiner [facility] Start: 12-27-2024 Non-patient / Non-visit Dr. Juliana [facility] MD -[facility] Start: 12-27-2024 Non-patient / Non-visit Dr. Emmett Storm MD -[facility] Start: 12-26-2024 Non-patient / Non-visit Dr. Juliana Fisher MD -[facility] Work Phone: Start: 12-26-2024 Non-patient / Non-visit Dr. Juliana Boroks MD -[facility] Work Phone: Start: 12-26-2024 Non-patient / Non-visit Dr. Emmett Storm MD -[facility] Start: 12-26-2024 ambulatory Didier Rodríguez Facility:[facility] Start: 12-11-2024 ambulatory Alexander Steiner Facility:[facility] Start: 12-11-2024 Non-patient / Non-visit Dr. Emmett Storm MD -[facility] Start: 12-11-2024 End: 12-11-2024 Admission to same day surgery center Dr. Zuleyma Storm MD -Endoscopy Work Phone: Start: 12-11-2024 End: 12-11-[address] Alexander Steiner MD Work Phone: -Endoscopy Start: 12-09-2024 End: 12-09-[address] Alexander Steiner MD Work Phone: -Laboratory Start: 12-09-2024 End: 12-09-[address] Alexander Steiner MD -Laboratory Work Phone: Start: 12-09-2024 End: 12-09-2024 ambulatory Alexander Steiner Facility:[facility] Start: 12-04-2024 End: 12-04-[address] Zuleyma Storm MD -[facility] Work Phone: Start: 12-04-2024 End: 12-04-[address] Alexander Steiner MD Work Phone: -[facility] Start: 12-03-2024 End: 12-03-2024 ambulatory [...] Start: 11-28-2024 End: 11-28-2024 ambulatory Alexander Steiner Facility:[facility] Start: 11-21-2024 End: 11-29-2024 Telephone encounter Saurav Machuca MD Work Phone: General Surgery Comment on above: Patient Question Start: 11-20-2024 End: 11-20-2024 Patient encounter procedure Saurav Machuca MD Work Phone: General Surgery Comment on above: Matute's esophagus with dysplasia; Tubulovillous adenoma; Multiple polyps of sigmoid colon; Encounter for screening for malignant neoplasm of colon Start: 11-20-2024 End: 11-20-2024 ambulatory SAURAV MACHUCA Facility:[facility] Start: 11-15-2024 ambulatory SAURAV MACHUCA Facil ity:[facility] Start: 11-15-2024 End: 11-15-2024 Subsequent hospital visit by physician See [facility] Work Phone: Radiology Comment on above: 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 [K22.70] Start: 11-15-2024 ambulatory SAURAV Crowell ity:[facility] Start: 11-15-2024 End: 11-15-2024 Subsequent hospital [...] Patient encounter procedure Dr. Alejandro Machado DO -[facility] Work Phone: Start: 10-31-2024 End: 10-31-[address] Alexander Steiner MD Work Phone: -[facility] Start: 10-29-2024 End: 10-29-[address] Alexander Steiner MD Work Phone: -Cat Scan [facility] Start: 10-29-2024 End: 10-29-[address] Alejandro Melgoza [facility] Work Phone: Start: 10-29-2024 End: 10-29-2024 ambulatory Alexander Steiner Facility:[facility] Start: 10-21-2024 End: 10-21-[address] Marcelino Nolen MD -Medical Out Work Phone: Start: 10-21-2024 End: 10-21-[address] Alexander Steiner MD Work Phone: -Medical Out Start: 10-15-2024 End: 10-18-2024 Telephone encounter Valerie Gaitan [employer].S[employer]IOR [employer] SQL DEVELOPER Work Phone: Ambulatory Surgery Comment on above: Orders Start: 10-02-2024 End: 10-02-[address] Alexander Steiner MD Work Phone: -Cat Scan [facility] Start: 10-02-2024 End: 10-02-[address] Alexander Steiner MD -Cat Scan [facility] Work Phone: Start: 10-02-2024 End: 10-02-2024 ambulatory Alexander Steiner Facility:[facility] Start: 09-30-2024 End: 09-30-2024 Patient encounter procedure Valerie Gaitan [employer].S[employer]IOR [employer] SQL DEVELOPER Work Phone: General Surgery Comment on above: Unintentional weight loss (Primary Dx); Fecal occult blood test positive; History of Matute's esophagus; Family history of colon cancer Start: 09-30-2024 End: 09-30-2024 ambulatory VALERIE GAITAN Facility:[facility] Start: 2024 End: 2024 Patient encounter procedure Jessie HARRISON -[facility] Work Phone: Start: 2024 End: [address] Alexander Steiner MD Work Phone: -[facility] Start: 09-20-2024 End: 09-20-[address] Alexander Steiner MD Work Phone: -Laboratory Specimen Start: 09-20-2024 End: 09-20-[address] Alexander Steiner MD -Laboratory Specimen Work Phone: Start: 09-19-2024 ambulatory Alexander Steiner Facility:[facility] Start: 09-19-2024 Non-patient / Non-visit Dr. Rita brwon MD -[facility] Start: 09-19-2024 End: 09-20-[address] Alexander Steiner MD Work Phone: -Cardiovascular Services Start: 09-19-2024 End: 09-19-[address] Alexander Steiner MD -Cardiovascular Services Work Phone: Start: 09-19-2024 End: 09-19-2024 ambulatory Alexander Packerok Facility:[facility] Start: 09-16-2024 End: 09-16-[address] Alexander Steiner MD Work Phone: -Laboratory Start: 09-16-2024 End: 09-16-[address] Alexander Steiner MD -Laboratory Work Phone: Start: 09-16-2024 End: 09-16-2024 ambulatory Alexander Packerok Facility:[facility] Start: 09-11-2024 End: 09-11-[address] Alexander Steiner MD Work Phone: [facility] Work Phone: Start: 09-11-2024 End: 09-11-[address] Alexander Steiner MD -[facility] Work Phone: Start: 09-11-2024 End: 09-11-2024 ambulatory Alexander Packerok Facility:[facility] Start: 08-29-2024 End: 08-29-2024 Patient encounter procedure Laura TRUJILLO -[facility] Work Phone: Start: 08-29-2024 End: 08-29-[address] Alexander Steiner MD Work Phone: [facility] Work Phone: Start: 08-22-2024 End: 08-22-2024 Non-patient / Non-visit Dr. Sánchez Pena MD -[facility] Work Phone: Start: 08-22-2024 End: 08-22-[address] Alexander Steiner MD Work Phone: [facility] Work Phone: Start: 08-22-2024 End: 08-22-[address] Alexander Steiner MD -Cardiovascular Services Work Phone: Start: 08-22-2024 End: 08-22-2024 ambulatory Alexander Steiner Facility:[facility] Start: 08-12-2024 End: 08-12-[address] Alexander Steiner MD -Laboratory Work Phone: Start: 08-12-2024 End: 08-12-2024 ambulatory [facility] Facility:[facility] Start: 07-08-2024 End: 07-08-[address] Alejandro Machado DO -[facility] Work Phone: Start: 07-08-2024 End: 07-08-2024 ambulatory Alexander Steiner Facility:[facility] Start: 06-27-2024 End: 06-27-[address] Alexander Steiner MD Work Phone: [facility] Work Phone: Start: 06-27-2024 End: 06-27-[address] Alejandro Machado DO -Cat Scan, [facility] Work Phone: Start: 06-27-2024 End: 06-27-2024 ambulatory Alexander Juvenal Packerok Facility:[facility] Start: 05-28-2024 End: 05-28-[address] Alejandro Machado DO Work Phone: [facility] Work Phone: Start: 05-28-2024 End: 05-28-[address] Alexander Steiner MD -Radiology, [facility] Work Phone: Start: 05-28-2024 End: 05-28-2024 ambulatory Alexander Juvenal Jatin Facility:[facility] Start: 05-14-2024 End: 05-14-[address] Micah Jimenez MD -Laboratory Work Phone: Start: 05-14-2024 End: 05-14-2024 ambulatory Micah Jimenez Facility:[facility] Start: 04-12-2024 End: 04-12-[address] Alexander Steiner MD -Laboratory, Phy Office 3rd Flr Start: 04-12-2024 End: 04-12-2024 ambulatory [facility] Facility:[facility] Start: 03-26-2024 End: 03-26-[address] Alexander Steiner MD -Laboratory, Phy Office 3rd Flr Start: 03-26-2024 End: 03-26-2024 ambulatory [facility] Facility:[facility] Start: 03-06-2024 End: 03-06-[address] Alexander Steiner MD -Laboratory, Phy Office 3rd Flr Start: 03-06-2024 End: 03-06-2024 ambulatory [facility] Facility:[facility] Start: 02-29-2024 End: 02-29-[address] Alejandro Machado [facility] Work Phone: Start: 02-29-2024 End: 02-29-2024 ambulatory Alejandro Carter Facility:[facility] Start: 02-26-2024 End: 02-26-[address] Alejandro Machado DO -[facility] Work Phone: Start: 02-26-2024 End: 02-26-2024 ambulatory Alejandro Machado Facility:[facility] Start: 02-19-2024 End: 02-19-[address] Gregory Rodriguez MD -[facility] Work Phone: Start: 02-19-2024 End: 02-19-2024 ambulatory Gregory Rodriguez Facility:[facility] Start: 07-27-2023 End: 07-27-[address] Alexander Steiner Work Phone: [facility] Work Phone: Start: 07-24-2023 End: 07-24-[address] Alexander Steiner Work Phone: [facility] Work Phone: Start: 07-24-2023 End: 07-24-[address] Alexander Steiner Work Phone: [facility] Work Phone: Start: 04-27-2023 End: 04-27-[address] Alexandre Steiner Work Phone: [facility] Work Phone: Start: 04-24-2023 End: 04-24-[address] Alexander Steiner Work Phone: [facility] Work Phone: Start: 04-24-2023 End: 04-24-[address] Alexander Steiner Work Phone: [facility] Work Phone: Start: 04-04-2023 End: 04-04-[address] Alexander Steiner Work Phone: [facility] Work Phone: Start: 04-04-2023 End: 04-04-[address] [facility] Start: 03-06-2023 End: 03-06-[address] Alexander Steiner Work Phone: [facility] Work Phone: Start: 03-06-2023 End: 03-06-[address] [facility] Work Phone: Start: 03-03-2023 End: 03-03-[address] Alexander Steiner Work Phone: [facility] Work Phone: Start: 03-03-2023 End: 03-03-[address] Alexander Steiner Work Phone: [facility] Office 3rd Flr Start: 03-02-2023 End: 03-02-[address] Alexander Steiner Work Phone: [facility] Work Phone: Start: 03-02-2023 End: 03-02-[address] Alexander Steiner Work Phone: [facility] Office 3rd Flr Start: 02-23-2023 End: 02-23-[address] Alexander Steiner Work Phone: [facility] Work Phone: Start: 01-26-2023 Non-patient / Non-visit Dr. Emmett Steiner Work Phone: [facility] Work Phone: Start: 01-26-[address] Alexander gonzalez Work Phone: [facility]-Radiation Oncology Start: 01-24-2023 Non-patient / Non-visit Dr. Emmett Steiner Work Phone: [facility] Work Phone: Start: 01-20-2023 Non-patient / Non-visit Dr. Emmett Steiner Work Phone: [facility] Work Phone: Start: 01-18-2023 End: 01-18-[address] Alexander Steiner Work Phone: [facility] Work Phone: Start: 01-16-2023 Non-patient / Non-visit Dr. Emmett Steiner Work Phone: [facility] Work Phone: Start: 01-11-2023 Non-patient / Non-visit Dr. Emmett Steiner Work Phone: [facility] Start: 01-10-2023 Non-patient / Non-visit Dr. Emmett Steiner Work Phone: [facility] Start: 01-04-2023 Non-patient / Non-visit Dr. Emmett Steiner Work Phone: [facility] Start: 01-02-[address] Brandi Steiner Work Phone: [facility] Start: 12-12-2022 End: 12-12-[address] Alexander Steiner Work Phone: [facility] Work Phone: Start: 12-02-2022 End: 12-02-2022 Subsequent hospital visit by physician Reji Goodrich MD Work Phone: Department of Radiology Comment on above: Arrived Start: 12-02-2022 End: 12-02-2022 Subsequent hospital visit by physician Reji Goodrich MD Work Phone: Department of Radiology Comment on above: Arrived Start: 11-04-2022 ambulatory [facility] Facility[facility] Start: 11-04-2022 End: 11-04-2022 Office outpatient visit 15 minutes Dean Bedoya RETAIL R[employer] SUPERVISOR-SENIOR PL SQL DEVELOPER Work Phone: Division of Thoracic Surgery [facility] [place] [facility] Comment on above: Lung nodule (Primary Dx) Start: 11-01-2022 End: 11-01-2022 ambulatory [facility] Work Phone: Start: 11-01-2022 End: 11-01-2022 Patient encounter procedure [facility]-Laboratory, Phy Office 3rd Flr Start: 08-31-2022 End: 08-31-2022 Patient encounter procedure [facility]-Laboratory Work Phone: Start: 08-26-2022 End: 08-26-[address] Alexander Steiner Work Phone: [facility] Work Phone: Start: 08-26-2022 End: 08-26-[address] Alexander Steiner Work Phone: [facility]-Medical Out Start: 08-09-2022 End: 08-09-[address] Alexander Steiner Work Phone: [facility]-Outpatient Bone Densitometry Start: 07-16-2022 End: 07-16-[address] Alexander Steiner Work Phone: [facility] Work Phone: Start: 07-16-2022 End: 07-16-[address] Alexander Steiner Work Phone: [facility]-Laboratory Start: 07-05-2022 End: 07-05-[address] Alexander Steiner Work Phone: [facility] Endocrinology Start: 04-26-2022 End: 04-26-[address] Alexander Steiner Work Phone: [facility] Start: 11-10-2021 End: 11-10-2021 Office outpatient visit 15 minutes Micah Trinh MD Work Phone: Division of Thoracic Surgery [facility] [place] [facility] Comment on above: Lung nodule (Primary Dx) Start: 11-10-2021 End: 11-10-2021 Subsequent hospital visit by physician Delia Mccauley RETAIL R[employer]TE SUPERVISOR-SENIOR PL SQL DEVELOPER Work Phone: [facility] Comment on above: Arrived Start: 08-26-2021 Patient encounter procedure [facility]-Medical Out Start: 08-25-2021 End: 08-25-2021 [facility] [facility] 3rd Flr Start: 07-09-2021 End: 07-09-[address] [facility]iner [facility] Start: 05-11-2021 End: 05-11-[address] Alexander Steiner Work Phone: [facility] Start: 04-20-2021 End: 04-20-[address] Alexander Steiner Work Phone: [facility] Start: 11-11-2020 End: 11-11-2020 Office outpatient visit 15 minutes Micah Trinh MD Work Phone: Division of Thoracic Surgery at [facility] [place] [facility] Comment on above: Solitary lung nodule (Primary Dx) Start: 11-11-2020 End: 11-11-2020 Subsequent hospital visit by physician Ingrid Lebron PA-C Work Phone: [facility] Comment on above: Arrived Start: 10-14-[address] Brandi Steiner Work Phone: [facility] Start: 10-14-[address] Alejandro kothari DO Work Phone: [facility] Procedures Date Procedure Procedure Detail Performing Clinician [...] dx w/collj spec when pfrmd Valerie Gaitan RETAIL ROUTE SUPERVISOR.SENIOR PL SQL DEVELOPER Work Phone: Start: 11-15-2024 Esophagogastroduodenoscopy transoral diagnostic [...] 09-19-2024 Prostate specific antigen measurement Dr. Alexander Stiener MD Work Phone: Comment on above: This [...] 12-02-2022 Blood count complete automated Debbie Olvera RETAIL ROUTE SUPERVISOR-SENIOR PL SQL DEVELOPER Work Phone: Start: 11-04-2022 Follow-up visit Follow-up DEAN BEDOYA Start: 08-09-2022 Dual energy X-ray absorptiometry Dr. Alexander Steiner Work Phone: Start: 11-10-2021 Ct thorax w/o contrast material Delia Mccauley RETAIL ROUTE SUPERVISOR-SENIOR PL SQL DEVELOPER Work Phone: Start: 11-11-2020 Ct thorax w/contrast material Ingrid jernigan PAHenrryC Work Phone: Start: 11-11-2020 Creatinine blood Ingrid Lebron PAHenrryC Work Phone: Plan of Treatment Date Care Activity Detail Author Start: 01-17-2025 Patient encounter procedure Registered Clinical -Pulmonary Services/Neurology Work Phone: Start: 01-15-2025 Urine culture Urine Culture [facility] Start: 01-15-2025 End: 01-15-2025 Patient encounter procedure -Laboratory Phy Office 3rd Flr Start: 01-10-2025 End: 01-10-2025 Patient encounter procedure Low grade mucinous neoplasm of appendix -[facility] Work Phone: Start: 01-06-2025 End: 01-06-2025 Patient encounter procedure Departed Clinical -Laboratory Phy Office 3rd Flr Start: 12-28-2024 Patient discharge [facility] Start: 12-28-2024 [facility] Start: 12-27-2024 Admission procedure [facility] Start: 12-27-2024 Inhalation therapy procedure [facility] Start: 12-26-2024 Application of intermittent pneumatic compression device [facility] Start: 12-26-2024 Following clinical pathway protocol [facility] Start: 12-26-2024 Application of intermittent pneumatic compression device [facility] Start: 12-26-2024 Catheterization of vein [facility] Start: 12-26-2024 Elevation of head of bed [facility] Start: 12-26-2024 Introduction of urin minda catheter [facility] Start: 12-26-2024 Measuring intake and output [facility] Start: 12-26-2024 Notification of physician [facility] Start: 12-26-2024 Patient education [facility] Start: 12-26-2024 Procedures relating to eating and drinking [facility] Start: 12-26-2024 Taking patient vital signs [facility] Start: 12-26-2024 Wound care [facility] Start: 12-26-2024 [facility] Start: 12-26-2024 Consultation [facility] Start: 12-26-2024 Ambulation therapy management [facility] Start: 12-26-2024 Admission procedure [facility] Start: 12-26-2024 [facility] Start: 12-11-2024 Colonoscopy [facility] Start: 12-11-2024 Colsc flx w/rmvl of tumor polyp lesion snare tq COLONOSCOPY W/LESION REMOVAL [facility] Start: 12-11-2024 Colsc flx with direc ana submucosal njx any sbst COLONOSCOPY SUBMUCOUS NJX [facility] Start: 12-11-2024 [facility] Start: 12-04-2024 End: 12-04-2024 Patient encounter procedure 12/04/2024 2:45 PM EDT Office Visit General Surgery [address] [place] [address] Saurav Machuca MD [address] [place] [address] FU: Medical Clearance for colonoscopy. [facility] General Surgery Comment on above: FU: Medical Clearanc e for colonoscopy. [facility] Start: 12-02-2024 Administration of bl ood product [facility] Start: 12-02-2024 [facility] Start: 11-25-2024 Influenza vaccination Influenza Vacc ine (#1) [facility] Start: 11-20-2024 End: 11-20-2024 Patient encounter procedure 11/20/2024 11:45 AM EDT Office Visit General Surgery [address] [place] [address] Saurav Machuca MD [address] [place] [address] 11-15 EGD & Colonoscopy follow up w/RG General Surgery Comment on above: 11-15 EGD & Colonosc opy follow up w/RG Start: 11-15-2024 End: 11-15-2024 Patient encounter procedure 11/15/2024 8:00 AM EDT Appointment Ambulatory Surgery [address] [place] [address] Saurav Machuca MD [address] [place] [address] Ambulatory Surgery Start: 08-21-2025 Tetanus vaccination TETANUS [facility] Start: 10-21-2024 Intravenous infusion THER/PROP H/DIAG IV INF [facility] Start: 10-21-2024 Iv infusion therapy/prophylaxis /dx 1st to 1 hr THER/PROPH/DIAG IV INF [facility] Start: 10-21-2024 Vedolizumab therapy THER/PROPH /DIAG IV INF [facility] Start: 03-27-2024 Advance Directive Discussion Advance Directive Discussion [facility] Start: 03-27-2024 Medicare Advantage A nnual Wellness Visit Medicare Advantage Annual Wellness Visit [facility] Start: 11-26-2023 Covid-19 Vaccine () Covid-19 Vaccine () [facility] Start: 11-05-2023 Screening for malign ant neoplasm of lung LUNG CANCER SCREENING [facility] Start: 09-01-2023 Diabetes Screening Diabetes Screenin g [facility] Start: 11-25-2022 Influenza vaccination INFLUENZA VACC INE (#1) [facility] Start: 11-10-2022 Screening for malign ant neoplasm of lung LUNG CANCER SCREENING [facility] Start: 11-04-2022 End: 11-04-2022 Patient encounter procedure [facility] Start: 08-26-2022 Iv infusion therapy/prophylaxis /dx 1st to 1 hr THER/PROPH/DIAG IV INF [facility] Start: 04-10-2022 COVID-19 VACCINE (4 - Pfizer series) COVID-19 VACCINE (4 - Pfizer series) [facility] Start: 11-25-2021 Influenza vaccination INFLUENZA VACC INE (#1) [facility] Start: 11-11-2021 Screening for malign ant neoplasm of lung LUNG CANCER SCREENING [facility] Start: 11-10-2021 End: 11-10-2022 CT Chest WO contrast CT CHEST WITHOUT CONTRAST Imaging Routine Lung nodule Expected: 11/10/2021, Expires: 11/10/2022 [facility] Comment on above: Expected: 11/10/2021 , Expires: 11/10/2022 Start: 05-12-2021 End: 05-12-2021 Patient encounter procedure [facility] Start: 11-25-2020 Influenza vaccination INFLUENZA VACC INE (#1) [facility] Start: 11-14-2020 COVID-19 VACCINE (3 - Booster for Pfizer series) COVID-19 VACCINE (3 - Booster for Pfizer series) [facility] Start: 11-11-2020 End: 11-11-[address] CHEST WITHOUT CONTRAST Imaging Routine Solitary lung nodule Expected: 11/11/2020, Expires: 11/11/2021 [facility] Work Phone: Comment on above: Expected: 11/11/2020 , Expires: 11/11/2021 Start: 11-30-2018 Pneumococcal vaccination PNEUM OCOCCAL VACCINE SERIES (2 - PCV) [facility] Start: 2017 RSV Vaccine (1 - 1-d ose 75+ series) RSV Vaccine (1 - 1-dose 75+ series) [facility] Start: 09-25-2007 Pneumococcal vaccination [facility] Start: 01-31-1995 Urine microalbumin profile DTaP,Tdap,Td Vaccine (3 - Tdap) [facility] Start: 1992 Pneumococcal Vaccine : 50+ (1 of 1 - PCV) Pneumococcal Vaccine: 50+ (1 of 1 - PCV) [facility] Start: 1992 Shingrix Vaccine (1 of 2) Holland grix Vaccine (1 of 2) [facility] Start: 1992 Zoster vaccine hzv l cb for subcutaneous use ZOSTER (SHINGLES) VACCINE (1 of 2) [facility] Start: 09-25-1987 Colonoscopy COLORECTAL CAN CER SCREENING DISCUSSION [facility] Start: 09-25-1987 Screening for malign ant neoplasm of colon COLORECTAL CANCER SCREENING DISCUSSION [facility] Start: 1961 Third diphtheria, te tanus and acellular pertussis (DTaP) vaccination TDAP (ADULT) [facility] Start: 1960 Anxiety Screening Anxiety Screening [facility] Start: 1960 Depression Screening Depression Scre ening [facility] Start: 1960 Tetanus vaccination TETANUS [facility] Start: 1942 Hepatitis C antibody , confirmatory test HEPATITIS C VIRUS SCREENING [facility] Start: 1940 Potassium [Moles/vol ume] in Serum or Plasma POTASSIUM [facility] Start: 1942 Thyroid stimulating hormone measurement TSH [facility] Colonoscopy [facility] CT Chest W contrast IV [facility] CT Chest W contrast IV [facility] CT Chest W contrast IV [facility] CT Chest W contrast IV [facility] CT Chest WO contrast [facility] CT Chest WO contrast [facility] CT Chest WO contrast [facility] End: 12-02-2022 CT Guidance for biopsy of Mediastinum [facility] Work Phone: Comment on above: 1 Occurrences starti ng 12/02/2022 until 12/02/2022 DXA Bone [Mass/Area] Bone density [facility] End: 09-30-2025 EGD DIAGNOSTIC EGD DIAGNOSTIC Endoscopy Routine Unintentional weight loss Fecal occult blood test positive History of Matute's esophagus 1 Occurrences starting 09/30/2024 until 09/30/2025 [facility] Comment on above: 1 Occurrences starti ng 09/30/2024 until 09/30/2025 End: 09-30-2025 Flexible sigmoidoscopy study COLONOSCOPY DIAGNOSTIC Endoscopy Routine Unintentional weight loss Fecal occult blood test positive Family history of colon cancer 1 Occurrences starting 09/30/2024 until 09/30/2025 [facility] Work Phone: Comment on above: 1 Occurrences starti ng 09/30/2024 until 09/30/2025 Positron emission tomography with computed tomography [facility] SURG PATH REQUEST [facility] Comment on above: Release Upon Orderin g for 1 Occurrences starting 12/02/2022, 1 completed T4 free measurement [facility] Thyroid stimulating hormone measurement [facility] Tissue Pathology bio psy report [facility] Work Phone: Comment on above: Release Upon Orderin g for 1 Occurrences starting 11/15/2024, 1 completed US Carotid arteries [facility] Vitamin D, 25-hydrox y measurement [facility] XR Abdomen Supine an d Upright XR ABDOMEN 1V SUPINE Radiology Routine 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 Unintentional weight loss Family history of colon cancer 11/15/2024 10:57 AM EDT [facility] Work Phone: End: 12-15-2025 XR Abdomen Supine and Upright XR ABDOMEN 1V SUPINE Radiology Routine 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 Advanced Practice Provider [facility] 06-14-2020 SARS-COV-2 (COVID-19 ), Mrna, Lnp-s, Pf, 30 Mcg/0.3 Ml Dose PFIZER Ingrid Lebron PA-C Work Phone: [facility] 05-25-2020 SARS-COV-2 (COVID-19 ), Mrna, Lnp-s, Pf, 30 Mcg/0.3 Ml Dose PFIZER Ingrid Lebron PA-C Work Phone: [facility] 01-06-2020 influenza virus vaccine, unspecified formulation Delia Mccauley APRN-SENIOR PL SQL DEVELOPER Work Phone: [facility] 01-31-1985 diphtheria and tetan us toxoids, adsorbed for pediatric use Valerie Joe RETAIL ROUTE SUPERVISOR.SENIOR PL SQL DEVELOPER Work Phone: [facility] 12-22-1969 diphtheria and tetan us toxoids, adsorbed for pediatric use Valerie Joe RETAIL ROUTE SUPERVISOR.SENIOR PL SQL DEVELOPER Work Phone: [facility] 01-08-1968 tetanus toxoid, adsorbed Valerie Joe RETAIL ROUTE SUPERVISOR.SENIOR PL SQL DEVELOPER Work Phone: [facility] 12-03-1964 tetanus toxoid, adsorbed Valerie Joe RETAIL ROUTE SUPERVISOR.SENIOR PL SQL DEVELOPER Work Phone: [facility] 02-12-1962 tetanus toxoid, adsorbed Valerie Joe RETAIL ROUTE SUPERVISOR.SENIOR PL SQL DEVELOPER Work Phone: [facility] 12-31-1959 trivalent poliovirus vaccine, live, oral Valerie Joe RETAIL ROUTE SUPERVISOR.SENIOR PL SQL DEVELOPER Work Phone: [facility] 02-04-1959 trivalent poliovirus vaccine, live, oral Valerie Joe RETAIL ROUTE SUPERVISOR.SENIOR PL SQL DEVELOPER Work Phone: [facility] 02-04-1959 vaccinia (smallpox) vaccine, diluted Valerie Joe RETAIL ROUTE SUPERVISOR.SENIOR PL SQL DEVELOPER Work Phone: [facility] 10-10-1957 trivalent poliovirus vaccine, live, oral Valerie Joe RETAIL ROUTE SUPERVISOR.SENIOR PL SQL DEVELOPER Work Phone: [facility] 09-12-1957 trivalent poliovirus vaccine, live, oral Valerie Joe RETAIL ROUTE SUPERVISOR.SENIOR PL SQL DEVELOPER Work Phone: [facility] Payers Date Payer Category Payer Self-pay [id number] 2020 Medicare MEDICARE HU[employer]NA HMO PPO MEDICARE HUMANA HMO PPO [id number] 2020-Present [address] [place] [address] [id number] 2020 Medicare MEDICARE HUMANA HMO PPO MEDICARE HU[employer]NA HMO PPO [id number] 2020-Present [address] [place] [address] [id number] 2019 Medicare (Managed Care) HUMANA M EDICARE [id number] 2013 Private Health Insurance [id number] 2007 Medicare [id number] 1940 Unknown [id number] 2.16.840.1.772656.3.579. 2.594 1942 Unknown [id number] 2.16.840.1.550812.3.579. 2.594 Unknown [id number] 2.16.840.1.550725.3.579. 2.462 Unknown [id number] 2.16.840.1.747934.3.579. 2.462 Unknown [id number] 2.16.840.1.043850.3.579. 2.462 Unknown [id number] 2.16.840.1.978905.3.579. 2.462 Unknown [id number] 2.16.840.1.555035.3.579. 2.462 Unknown [id number] 2.16.840.1.013935.3.579. 2.462 Unknown [id number] 2.16.840.1.576024.3.579. 2.462 Unknown [id number] 2.16.840.1.228600.3.579. 2.462 Unknown [id number] 2.16.840.1.413650.3.579. 2.462 Unknown [id number] 2.16.840.1.291583.3.579. 2.462 Unknown [id number] 2.16.840.1.668744.3.579. 2.462 Unknown [id number] 2.16.840.1.989927.3.579. 2.462 Unknown [id number] 2.16.840.1.960573.3.579. 2.462 Unknown [id number] 2.16.840.1.332127.3.579. 2.462 Unknown [id number] 2.16.840.1.716155.3.579. 2.462 Unknown [id number] 2.16.840.1.705090.3.579. 2.462 Unknown [id number] 2.16.840.1.406689.3.579. 2.462 Unknown [id number] 2.840.1.997963.3.579. 2.462 Unknown [id number] 2.840.1.406126.3.579. 2.462 Unknown [id number] 2.840.1.837473.3.579. 2.462 Unknown [id number] 2.840.1.864181.3.579. 2.462 Unknown [id number] 2.840.1.342020.3.579. 2.462 Unknown [id number] 2.840.1.190893.3.579. 2.462 Unknown [id number] 2.840.1.663474.3.579. 2.462 Unknown [id number] 2.840.1.429318.3.579. 2.462 Unknown [id number] 2.840.1.929524.3.579. 2.462 Unknown [id number] 2.840.1.731448.3.579. 2.462 Unknown [id number] 2.840.1.087008.3.579. 2.462 Unknown [id number] 2.16.840.1.788167.3.579. 2.462 Unknown [id number] 2.16.840.1.230994.3.579. 2.462 Unknown [id number] 2.840.1.785402.3.579. 2.462 Unknown [id number] 2.16.840.1.245916.3.579. 2.462 Unknown [id number] 2.16.840.1.700437.3.579. 2.462 Unknown [id number] 2.16.840.1.900973.3.579. 2.462 Unknown [id number] 2.16.840.1.203049.3.579. 2.462 Unknown [id number] 2.16.840.1.007426.3.579. 2.462 Unknown [id number] 2.16.840.1.706422.3.579. 2.462 Unknown [id number] 2.16.840.1.137243.3.579. 2.462 Unknown [id number] 2.16.840.1.216172.3.579. 2.462 Unknown [id number] 2.16840.1.418489.3.579. 2.462 Unknown [id number] 2.16840.1.999091.3.579. 2.462 Unknown [id number] 2.16.840.1.803540.3.579. 2.462 Unknown [id number] 2.16840.1.590909.3.579. 2.462 Unknown [id number] 2.16840.1.442601.3.579. 2.462 Unknown [id number] 2.840.1.767139.3.579. 2.462 Social History Date Type Detail Facility Start: 09-03-2020 End: 12-02-2024 Tobacco smoking status NHIS Former smoker [facility] Start: [birth year]-09-1962 End: 05-09-2012 History of tobacco use Current smoker [facility] Start: [birth year]-09-1962 End: 05-09-2012 History of tobacco use Cigarette Smoker [facility] Start: 09-03-2020 End: 09-30-2024 Cigarettes smoked current (pack per day) - Reported [facility] Start: 07-16-2020 End: 09-03-2020 Tobacco use and exposure Current user [facility] History of tobacco use Snuff User [facility] History of tobacco use Chews Tobacco [facility] Start: 11-11-2020 End: 11-04-2022 Alcohol intake Ex-drinker (finding) [facility] Start: 11-11-2020 History SDOH Financial 5 [facility] Start: 11-11-2020 History SDOH Food Worry 1 [facility] Start: 11-11-2020 History SDOH Transpo rt Med 2 [facility] Start: 09-09-2020 Tobacco Comment 09/09/20- 1 pac k of chewing tobacco in a 1-1.5/week? [facility] Start: 1940 Sex Assigned At Not on file [facility] Exposure to SARS-CoV -2 (event) Not sure [facility] Start: 04-20-2021 End: 07-05-2022 Tobacco smoking status NHIS Unknown if ever smoked [facility] Start: 05-25-2019 Spouse/ Signif icant Other [facility] Start: 1940 Sex Assigned At Male [facility] Start: 11-10-2021 End: 11-04-2022 Tobacco Comment 11/10/2021- 1 pack of chewing tobacco in a 1-1.5/week? [facility] Start: 11-19-2021 End: 09-30-2024 Tobacco use panel [facility] Start: 02-26-2012 How hard is it for y ou to pay for the very basics like food, housing, medical care, and heating Not hard at all [facility] (I/We) worried diandra er (my/our) food would run out before (I/we) got money to buy more. Never true [facility] Start: 06-07-2024 End: 07-03-2024 Sex Male (finding) [facility] Start: 09-30-2024 End: 08-28-2025 Alcoholic beverage intake Current non-drinker of alcohol (finding) [facility] Start: 12-06-2024 End: 12-27-2024 Tobacco smoking status MIIS Smokes tobacco daily (finding) [facility] Medical Equipment Procedure Code Equipment Code Equipment [...] FDA Start: 10-26-2020 Colonoscopy Tissue marking ink [id number] FDA Start: 12-11-2024 Surgical staple loading unit, cutting ()[id number] FDA Start: 12-26-2024 Open-surgery man ual linear cutting stapler, single-use [id number] FDA Start: 12-26-2024 Ligation clip, synthetic polymer, non-bioabsorbable ()[id number] FDA Start: 12-26-2024 Goals Date Patient Goal Desired Activity /State Functional Status Date Assessment Result Facility 12-28-2024 Functional status Up ad hero [facility] Work Phone: 07-19-2013 Are you deaf, or do you have serious difficulty hearing No 07/19/2013 9:55 AM Dacia Tristan RN No [facility] 07-19-2013 Are you blind, or do you have serious difficulty seeing, even when wearing glasses No 07/19/2013 9:55 AM Dacia Tristan RN No [facility] 07-19-2013 Do you have serious difficulty walking or climbing stairs No 07/19/2013 9:55 AM Dacia Tristan RN No [facility] 07-19-2013 Because of a physica l, mental, or emotional condition, do you have difficulty doing errands alone such as visiting a physician's office or shopping No 07/19/2013 9:55 AM Dacia Tristan RN No [facility] Mental Status Date Assessment Result Facility 12-28-2024 Cognitive function Appropriate [facility] Work Phone: 12-27-2024 Cognitive function Arousable To Voice/Nam e [facility] Work Phone: 12-11-2024 Cognitive function Voice/Name [facility] Work Phone: 12-02-2024 Cognitive function Awake;Alert;A ppropriate;Fo lor Commands [facility] Work Phone: 10-21-2024 Cognitive function Voice/Name [facility] Work Phone: 08-26-2022 Cognitive function Awake;Alert;A ppropriate;[facility] Commands [facility] Work Phone: 08-26-2021 Cognitive function Voice/Name [facility] Work Phone: 07-19-2013 Because of a physica l, mental, or emotional condition, do you have serious difficulty concentrating, remembering, or making decisions No 07/19/2013 9:55 AM EDT Dacia Garcia RN No [facility] Clinical Notes 07-14-2020 to 01-10-2025 Note Date & Type Note Facility 01-10-2025 Progress note [facility] 01-03-2025 Progress note [facility] 01-03-2025 Progress note Note Date/Time January 03, 2025 2:43pm [facility] [address] [place] [address] OFFICE VISIT Date of Service: 01/03/25 MR#: [id number] Acct: [id number] Name: MARGAUX SANDERSON Rep #: [id number] : 1940 Provider: Dr. Luma Storm MD Age/Sex: 84/M Location: [facility] Status: Signed Intake Vital Signs 12/26/24 21:09 [...] Post Op Diagnoses S/P right colectomy Z90.49 [facility] Medical History Dark stools Loss of [...] agreeable to plan. Zuleyma Storm M.D. Pager: [phone] [facility] [address] [place] [address], [address] [place] [address] Office: [phone] 01/06/25 0957 <Electronically signed by Zuleyma Paredes am, MD> Date _ Zuleyma Watts Signature: Date (if applicable) CC: Dr. Alexander Steiner MD ~ [facility] Work Phone: 1(800) 221-248710-03-2025 Progress note Author [facility] Note Date/Time December 27, 2024 6: 29pm [facility] Medical Records Department [address] [place] [address] [place] [address] Progress Note 12/27/241126 MR#: [id number] Acct: [id number] Name: MARGAUX SANDERSON Rep #:[id number] : 1940 84 From: Caitlin Fisher MD PCP: Dr. Alexander Steiner MD Status:ADM I N Location: [facility] CF883-9 Subjective Subjective Patient seen and examined with [...] (Auto) 81.6 H, Lymph %(Auto) 6.6 L, [place] % (Auto) 10.9 H, Eos % (Auto) [...] with you. Charges/Coding Visit Charges Inpatient E&M: 13658 Subs Hosp L2 12/27/24 182 <Electronically signed by Caitlin Fisher MD> Caitlin Fisher MD Cosigner Signature (if applicable): CC: ~ Signed [facility] Work Phone: 1(250) 994-347710-03-2025 Progress note [facility] Medical Records Department [address] [place] [address] Progress Note 12/27/24 1127 MR#: [id number] Acct: [id number] Name: MARGAUX SANDERSON Rep #:[id number] : 1940 84 From: Caitlin Fisher MD PCP: Dr. Alexander Steiner MD Status:ADM I N Location: [place] [address] Subjective Subjective Patient seen and examined with [...] (Auto) 81.6 H, Lymph %(Auto) 6.6 L, [place] % (Auto) 10.9 H, Eos % (Auto) [...] with you. Charges/Coding Visit Charges Inpatient E&M: 49427 Subs Hosp L2 12/27/24 0730 Caitlin Fisher MD Cosigner Signature (if applicable): CC: ~ Signed [facility]10-03-2025 [facility] Progress note Author [facility]uleyma [facility] Note Date/Time December 27, 2024 8: 34am [facility] Medical Records Department [address] [place] [address] Progress Note - Surgery 12/27/24 0755 MR#: [id number] Acct: [id number] Name: MARGAUX SANDERSON Rep #:[id number] : 1940 84 From: Zuleyma Strom MD PCP: Dr. Alexander Steiner MD Status:ADM I NO Location: [place] BX499-6 Subjective Subjective Patient has been ambulating in [...] 75.9 H, Lymph % (Auto) 10.1 L, [place] % (Auto) 10.6 H, Eos % (Auto) [...] (Auto) 81.6 H, Lymph %(Auto) 6.6 L, [place] % (Auto) 10.9 H, Eos % (Auto) [...] for DVT prophylaxis Zuleyma Storm M.D. Pager: [phone] [facility] [address] [place] [address], [address] [place] [address] Office: [phone] 12/27/24 3623 <Electronically signed by Zuleyma Storm MD> Cosigner Signature (if applicable): CC: ~ Signed [facility] Work Phone: 1(542) 212-324110-03-2025 Progress note [facility] Medical Records Department [address] [place] [address] Progress Note - Surgery 12/27/24 0754 MR#: [id number] Acct: [id number] Name: MARGAUX SANDERSON Rep #:[id number] : 1940 84 From: Zuleyma Storm MD PCP: Dr. Alexander Steiner MD Status:ADM I NO Location: [place]3 BU814-4 Subjective Subjective Patient has been ambulating in [...] 75.9 H, Lymph % (Auto) 10.1 L, [place] % (Auto) 10.6 H, Eos % (Auto) [...] (Auto) 81.6 H, Lymph %(Auto) 6.6 L, [place] % (Auto) 10.9 H, Eos % (Auto) [...] for DVT prophylaxis Zuleyma Storm M.D. Pager: [phone] [facility] [address] [place] [address], [facility], [address] [place] [address] Office: [phone] 12/27/24 4287 Cosigner Signature (if applicable): CC: ~ Signed [facility]10-03-2025 Procedure note [facility] Medical Records Department [address] [place] [address] Operative Report 12/26/24 0951 MR#: [id number] Acct: [id number] Name: MARGAUX SANDERSON Rep #:[id number] : 1940 84 From: Zuleyma Storm MD PCP: Dr. 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 Zuleyma Storm MD~ Signed [facility]10-02-2025 Progress note Author [facility] Note Date/Time December 26, 2024 5: 45pm [facility] Medical Records Department [address] [place] [address] Progress Note 12/26/24 1736 MR#: [id number] Acct: [id number] Name: MARGAUX SANDERSON Rep #:[id number] : 1940 84 From: Caitlin Fisher MD PCP: Dr. Alexander Steiner MD Status:ADM I NO Location: [facility] AY814-1 Subjective Subjective Patient is an 84-year-old male [...] 75.9 H, Lymph % (Auto) 10.1 L, [place] % (Auto) 10.6 H, Eos % (Auto) [...] with you. Charges/Coding Visit Charges Inpatient E&M: 99725 Subs Hosp L2 12/26/241744 <Electronically signed by Caitlin Fisher MD> Caitlin Fisher MD Cosigner Signature (if applicable): CC: ~ Signed [facility] Work Phone: 1(836) 904-475010-02-2025 Progress note [facility] Medical Records Department [address] [place] [address] Progress Note 12/26/241735 MR#: [id number] Acct: [id number] Name: MARGAUX SANDERSON Rep #:[id number] : 1940 84 From: Caitlin Fisher MD PCP: Dr. Alexander Steiner MD Status:ADM I NO Location[facility]1 Subjective Subjective Patient is an 84-year-old male [...] 75.9 H, Lymph % (Auto) 10.1 L, [place] % (Auto) 10.6 H, Eos % (Auto) [...] with you. Charges/Coding Visit Charges Inpatient E&M: 80126 Subs Hosp L2 12/26/24 1745 Caitlin Fisher MD Cosigner Signature (if applicable): CC: ~ Signed [facility]10-02-2025 Consult note Author Mamta Dc [facility] Note Date/Time December 26, 2024 10 :26 [facility] Medical Records Department [address] [place] [address] Anesthesia Postop Eval I 12/26/24 1025 MR#: [id number] Acct: [id number] Name: MARGAUX SANDERSON Rep #:[id number] : 1940 84 From: Mamta bales CRNA PCP: Dr. Alexander Steiner MD Status:ADM I N Y Race: C Location: [place] [address] Anesthesia: Postop Eval I Current Vital Signs [...] CRNA Cosigner Signature: Date CC: ~ Signed [facility] Work Phone: 1(997) 694-670610-02-2025 Consult note [facility] Medical Records Department [address] [place] [address] Anesthesia Postop Eval I 12/26/24 1025 MR#: [id number] Acct: [id number] Name: MARGAUX SANDERSON Rep #:[id number] : 1940 84 From: Mamta bales ELASTIC ATTACHER CHAINSTITCH PCP: Dr. Alexander Steiner MD Status:ADM I N Y Race: C Location: [facility] AC- TBA-1 Anesthesia: Postop Eval I [...] 1 completed: Yes 12/26/24 1026 jean claude ELASTIC ATTACHER CHAINSTITCH> Date _ Mamtavivien Martellamairani ELASTIC ATTACHER CHAINSTITCH Cosigner Signature: Date CC: ~ Signed [facility]10-02-2025 Consult note Author Mamtamicheal [facility] Note Date/Time December 26, 2024 7: 24am [facility] Medical Records Department [address] [place] [address] Pre-Anesthesia Evaluation 12/26/24 0717 MR#: [id number] Acct: [id number] Name: MARGAUX SANDERSON Rep #:[id number] : 1940 84 From: Mamta bales ELASTIC ATTACHER CHAINSTITCH PCP: Dr. Alexander Steiner MD Status:ADM I N Y Race: C Location: [facility] AC- TBA-1 ASA Classification* ASA Classification [...] ZOE COLECTOMY Anesthesia History Anesthesia History - final operations technician: Anesthesia History - final operations technician Hx Hospitalization No 12/20/24 10:34 Any Problems [...] take am of surgery PONV PONV - final operations technician: PONV - final operations technician Female No 12/20/24 10:34 HX of Motion [...] 12/26/24 06:12 Respiratory Assessment Respiratory Assessment - final operations technician: Respiratory Tract Infection Hx - final operations technician Hx Respiratory Tract Infection No 12/20/24 10:34 STOP Sleep Apnea STOP Sleep Apnea - final operations technician: STOP Sleep Apnea - final operations technician Hx Hypertension Yes: NO MEDS FOR 4 [...] Tobacco Use History Tobacco Use History - final operations technician: Tobacco Use History - final operations technician Tobacco Use Smoking Status Current every day smoker 12/20/24 10:34 Hx Tobacco Use Yes 12/20/24 10:34 Years Smoking Packs Smoked per Day Smoking Cessation Date was within the last 15 years Hx Smoking Cessation Date 03/27/08 12/20/24 10:34 Hx Smoking Cessation No 12/20/24 10:34 Counseling Hematologic Medial History Hematologic Hx - final operations technician: Hematologic Medical Hx - documentation lead Hx of Blood Transfusion Yes 12/20/24 10:34 [...] confused, unrespo /Reproduction History /Reproductive History - final operations technician: /Reproductive Hx- final operations technician Hx Now No 12/20/24 10:34 Gestational Age [...] CRNA Cosigner Signature: Date CC: ~ Signed [facility] Work Phone: 1(967) 324-616010-02-2025 History and physical note Author Zuleyma Storm [facility] Note Date/Time December 26, 2024 7: 14am [facility] Medical Records Department [address] [place] [address] History & Physical Exam 12/26/2412 MR#: [id number] Acct: [id number] Name: MARGAUX SANDERSON Rep #:[id number] : 1940 84 From: Zuleyma Storm MD PCP: Dr. Alexander Steiner MD Status:ADM I N Location: [place] [address] History and Physical Date of Admission: 12/26/24 History and Physical Date of Admission: 12/11/24 Date of Service: 12/04/24 MR#: [id number] Acct: [id number] Name: MARGAUX SANDERSON Rep #: [id number] : 1940 Provider: Dr. Zuleyma Storm MD Age/Sex: 84/M Location: [facility] Status: Signed Intake Vital Signs 12/02/2508:16 12/02/2509:30 [...] questions were answered. Zuleyma Storm M.D. Pager: [phone] [facility] [address] [place] [address], [address] [place] [address] Office: [phone] Coding Level of Care Code Off vis,new,level [...] within 6 months. Zuleyma Storm M.D. Pager: [phone] [facility] [address] [place] [address], [facility], [address] [place] [address] Office: [phone] 12/26/2414<Electronically signed by Zuleyma Storm MD> Cosigner Signature (if applicable): cc: Dr. Alexander Steiner MD; Dr. Zuleyma Storm MD ~* Signed [facility] Work Phone: 1(285) 797-903810-02-2025 Consult note [facility] Medical Records Department [address] [place] [address] Pre-Anesthesia Evaluation 12/26/24716 MR#: [id number] Acct: [id number] Name: MARGAUX SANDERSON Rep #:[id number] : 1940 84 From: Mamta bales CRNA PCP: Dr. Alexander Steiner MD Status:ADM I N Y Race: C Location: [place] [address] ASA Classification* ASA Classification ASA Classification: 3 [...] ZOE COLECTOMY Anesthesia History Anesthesia History - final operations technician: Anesthesia History - final operations technician Hx Hospitalization No 12/20/24 10:34 Any Problems [...] take am of surgery PONV PONV - final operations technician: PONV - final operations technician Female No 12/20/24 10:34 HX of Motion [...] 12/26/24 06:12 Respiratory Assessment Respiratory Assessment - final operations technician: Respiratory Tract Infection Hx - final operations technician Hx Respiratory Tract Infection No 12/20/24 10:34 STOP Sleep Apnea STOP Sleep Apnea - final operations technician: STOP Sleep Apnea - final operations technician Hx Hypertension Yes: NO MEDS FOR 4 [...] Tobacco Use History Tobacco Use History - final operations technician: Tobacco Use History - final operations technician Tobacco Use Smoking Status Current every day smoker 12/20/24 10:34 Hx Tobacco Use Yes 12/20/24 10:34 Years Smoking Packs Smoked per Day Smoking Cessation Date was within the last 15 years Hx Smoking Cessation Date 03/27/08 12/20/24 10:34 Hx Smoking Cessation No 12/20/24 10:34 Counseling Hematologic Medial History Hematologic Hx - final operations technician: Hematologic Medical Hx - documentation lead Hx of Blood Transfusion Yes 12/20/24 10:34 [...] confused, unrespo /Reproduction History /Reproductive History - final operations technician: /Reproductive Hx- final operations technician Hx Now No 12/20/24 10:34 Gestational Age [...] Cardiology follow-up encounter 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 12/26/24723 jean claude ELASTIC ATTACHER CHAINSTITCH> Date _ Mamta Dc CRNA Cosigner Signature: Date CC: ~ Signed [facility]10-02-2025 History and physical note [facility] Medical Records Department [address] [place] [address] History & Physical Exam 12/26/24711 MR#: [id number] Acct: [id number] Name: MARGAUX SANDERSON Rep #:[id number] : 1940 84 From: Zuleyma Storm MD PCP: Dr. Alexander Steiner MD Status:ADM I N Location: [facility] A- History and Physical Date of Admission: 12/26/24 History and Physical Date of Admission: 12/11/24 Date of Service: 12/04/24 MR#: [id number] Acct: [id number] Name: MARGAUX SANDERSON Rep #: [id number] : 1940 Provider: Dr. Zuleyma Storm MD Age/Sex: 84/M Location: [facility] Status: Signed Intake Vital Signs 12/02/2508:16 12/02/2509:30 [...] to go all the way up to [place] for another colonoscopy and surgery. Plan was [...] questions were answered. Zuleyma Storm M.D. Pager: [phone] [facility] [address] [place] [address], [facility], [address] [place] [address] Office: [phone] Coding Level of Care Code Off vis,new,level [...] within 6 months. Zuleyma Storm M.D. Pager: [phone] [facility] [address] [place] [address], [facility], [address] [place] [address] Office: [phone] 12/26/24 0714 Cosigner Signature (if applicable): cc: Dr. Alexander Steiner MD; Dr. Zuleyma Storm MD ~* Signed [facility]10-02-2025 [facility] Consult note Author Yovani Corley [facility] Note Date/Time December 13, 2024 8:26am [facility] Medical Records Department [address] [place] [address] Anesthesia Postop Eval II 12/13/24 0824 MR#: [id number] Acct: [id number] Name: MARGAUX SANDERSON Rep #:[id number] : [...] MD > Date _ Y[facility]ani Corley [facility] Signature: Date CC: ~ Signed [facility] Work Phone: 1(892) 733-522009-19-2025 Consult note [facility] Medical Records Department [address] [place] [address] Anesthesia Postop Eval II 12/13/24823 MR#: [id number] Acct: [id number] Name: MARGAUX SANDERSON Rep #:[id number] : [...] Yovani Watts Signature: Date CC: ~ Signed [facility]09-17-2025 Consult note [facility] Medical Records Department [address] [place] [address] Anesthesia Postop Eval II 12/11/24 1329 MR#: [id number] Acct: [id number] Name: MARGAUX SANDERSON Rep #:[id number] : 1940 84 From: Nitin Chung PCP: Dr. Alexander Steiner MD Status:REG S DC Y Race: C Location: [facility]18- Anesthesia Postop Eval I Sum Anesthesia Postop [...] MD Cosigner Signature: Date CC: ~ Signed [facility]09-17-2025 Consult note Author Nitin Santiago [facility] Note Date/Time December 11, 2024 3:[address] [place] [address] Medical Records Department [address] [place] [address] Anesthesia Postop Eval II 12/11/24 1329 MR#: [id number] Acct: [id number] Name: MARGAUX SANDERSON Rep #:[id number] : 1940 84 From: Nitin Chung PCP: Dr. Alexander Steiner MD Status:REG S DC Y Race: C Location: [place] [address] Anesthesia Postop Eval I Sum Anesthesia Postop [...] MD Cosigner Signature: Date CC: ~ Signed [facility] Work Phone: 1(939) 392-392409-17-2025 Procedure note [facility] Medical Records Department [address] [place] [address] Provation Physician Letter MR#: [id number] Acct: [id number] Name: MARGAUX SANDERSON Rep #:[id number] : 1940 84 From: Zuleyma Storm MD PCP: Dr. Alexander Steiner MD Status:REG S DC 12/11/2024 Alexander Steiner MD [address] [place] [address] Re : Colonoscopy procedure for Margaux Sanderson [...] ~ Date Dictated: 12/11/24 1005 Date Transcribed: Pension Consultant: TR Signed [facility]09-17-2025 Procedure note [facility] Medical Records Department [address] [place] [address] Colonoscopy Report MR#: [id number] Acct: [id number] Name: MARGAUX SANDERSON Rep #:[id number] : [...] if benign. Procedure Code(s): --- Professional --- 91056, Colonoscopy, flexible; with removal of tumor(s), polyp(s), or other lesion(s) by snare technique 91949, Colonoscopy, flexible; with directed submucosal injection(s), any substance Diagnosis Code(s): --- Professional --- D12.5, Benign neoplasm of sigmoid colon D12.4, Benign neoplasm of descending colon D12.3, Benign neoplasm of transverse colon (hepatic flexure or splenic flexure) D12.2, Benign neoplasm of ascending colon D12.0, Benign neoplasm of cecum R19.5, Other fecal abnormalities Z86.010, Personal history of colonic polyps CPT copyright 2021 [employer]. All rights reserved. The codes documented in this report are preliminary and upon battery assembler review may be revised to meet current compliance requirements. MD Zuleyma Doe MD 12/11/2024 12:21:27 PM This report has been signed electronically. Number of Addenda: 0 Note Initiated On: 12/11/2024 10:05 AM 12/11/24 1221 Date _ Zuleyma Storm MD Cosigner Signature: Date (if indicated) CC: Dr. Alexander tSeiner MD; Dr. Zuleyma Storm MD ~ Date Dictated: 12/11/24 1005 Date Transcribed: Pension Consultant: TR Wai [facility]09-17-2025 History and physical note Author Zuleyma Storm [facility] Note Date/Time December 11, 2024 10:03am [facility] Medical Records Department [address] [place] [address] History & Physical Exam 12/11/24 0955 MR#: [id number] Acct: [id number] Name: MARGAUX SANDERSON Rep #:[id number] : 1940 84 From: Zuleyma Storm MD PCP: Dr. Alexander Steiner MD Status:REG S DC Location: [place] [address]-1 History and Physical Date of Admission: 12/11/24 Date of Service: 12/04/24 MR#: [id number] Acct: [id number] Name: MARGAUX SANDERSON Rep #: [id number] : 1940 Provider: Dr. Zuleyma Storm MD Age/Sex: 84/M Location: [facility] Status: Signed Intake Vital Signs 12/02/2508:16 12/02/2509:30 [...] to go all the way up to [place] for another colonoscopy and surgery. Plan was [...] and no acute distress Nutritional Appearance: underweight [facility] Head: normocephalic and atraumatic Neck Neck: supple [...] questions were answered. Zuleyma Storm M.D. Pager: [phone] [facility] [address] [place] [address], [facility], [address] [place] [id number] Office: [phone] Coding Level of Care Code Off vis,new,level [...] MD; Dr. Zuleyma Storm MD ~* Signed [facility] Work Phone: 1(258) 479-535209-17-2025 Consult note Author Nitin Santiago [facility] Note Date/Time December 11, 2024 9:45am [facility] Medical Records Department [address] [place] [address] Pre-Anesthesia Evaluation 12/11/24 0936 MR#: [id number] Acct: [id number] Name: MARGAUX SANDERSON Rep #:[id number] : 1940 84 From: Nitin Chung PCP: Dr. Alexander Steiner MD Status:REG S DC Y Race: C Location: [place] [address] ASA Classification* ASA Classification ASA Classification: 3 [...] Procedure(s): COLONOSCOPY Anesthesia History Anesthesia History - final operations technician: Anesthesia History - final operations technician Hx Hospitalization No 12/06/24 09:42 Any Problems [...] take am of surgery PONV PONV - final operations technician: PONV - final operations technician Female No 12/06/24 09:19 HX of Motion [...] 12/11/24 09:18 Respiratory Assessment Respiratory Assessment - final operations technician: Respiratory Tract Infection Hx - final operations technician Hx Respiratory Tract Infection No 12/06/24 09:42 STOP Sleep Apnea STOP Sleep Apnea - final operations technician: STOP Sleep Apnea - final operations technician Hx Hypertension Yes: NO MEDS FOR 4 [...] Tobacco Use History Tobacco Use History - final operations technician: Tobacco Use History - final operations technician Tobacco Use Smoking Status Current every day smoker 12/06/24 09:42 Hx Tobacco Use Yes 12/06/24 09:42 Years Smoking Packs Smoked per Day Smoking Cessation Date was No - quit smoking greater 12/06/24 09:19 within the last 15 years than 15 years ago Hx Smoking Cessation Date 03/27/08 12/06/24 09:42 Hx Smoking Cessation No 12/06/24 09:42 Counseling Hematologic Medial History Hematologic Hx - final operations technician: Hematologic Medical Hx - documentation lead Hx of Blood Transfusion Yes 12/06/24 09:19 [...] confused, unrespo /Reproduction History /Reproductive History - final operations technician: /Reproductive Hx- final operations technician Hx Now No 12/06/24 09:19 Gestational Age [...] MD Cosigner Signature: Date CC: ~ Signed [facility] Work Phone: 1(226) 128-643609-17-2025 History and physical note [facility] Medical Records Department [address] [place] [address] History & Physical Exam 12/11/24954 MR#: [id number] Acct: [id number] Name: MARIA EMARGAUX CLAIRE Rep #:[id number] : 1940 84 From: Zuleyma Storm MD PCP: Dr. Alexander Steiner MD Status:REG S DC Location: [place] [address] History and Physical Date of Admission: 12/11/24 Date of Service: 12/04/24 MR#: [id number] Acct: [id number] Name: MARGAUX SANDERSON Rep #: [id number] : 1940 Provider: Dr. Zuleyma Storm MD Age/Sex: 84/M Location: [facility] Status: Signed Intake Vital Signs 12/02/2508:16 12/02/2509:30 [...] to go all the way up to [place] for another colonoscopy and surgery. Plan was [...] and no acute distress Nutritional Appearance: underweight [facility] Head: normocephalic and atraumatic Neck Neck: supple [...] questions were answered. Zuleyma Storm M.D. Pager: [phone] [facility] [address] [place] [address], [facility], [address] [place] [address] Office: [phone] Coding Level of Care Code Off vis,new,level [...] MD; Dr. Zuleyma Storm MD ~* Signed [facility]09-17-2025 [facility]-17-2025 Consult note [facility] Medical Records Department [address] [place] [address] Pre-Anesthesia Evaluation 12/11/24 0936 MR#: [id number] Acct: [id number] Name: MARGAUX SANDERSON Rep #:[id number] : 1940 84 From: Nitin Chung PCP: Dr. Alexander Steiner MD Status:REG S DC Y Race: C Location: [place] [address] ASA Classification* ASA Classification ASA Classification: 3 [...] Procedure(s): COLONOSCOPY Anesthesia History Anesthesia History - final operations technician: Anesthesia History - final operations technician Hx Hospitalization No 12/06/24 09:42 Any Problems [...] take am of surgery PONV PONV - final operations technician: PONV - final operations technician Female No 12/06/24 09:19 HX of Motion [...] 12/11/24 09:18 Respiratory Assessment Respiratory Assessment - final operations technician: Respiratory Tract Infection Hx - final operations technician Hx Respiratory Tract Infection No 12/06/24 09:42 STOP Sleep Apnea STOP Sleep Apnea - final operations technician: STOP Sleep Apnea - final operations technician Hx Hypertension Yes: NO MEDS FOR 4 [...] Tobacco Use History Tobacco Use History - final operations technician: Tobacco Use History - final operations technician Tobacco Use Smoking Status Current every day smoker 12/06/24 09:42 Hx Tobacco Use Yes 12/06/24 09:42 Years Smoking Packs Smoked per Day Smoking Cessation Date was No - quit smoking greater 12/06/24 09:19 within the last 15 years than 15 years ago Hx Smoking Cessation Date 03/27/08 12/06/24 09:42 Hx Smoking Cessation No 12/06/24 09:42 Counseling Hematologic Medial History Hematologic Hx - final operations technician: Hematologic Medical Hx - documentation lead Hx of Blood Transfusion Yes 12/06/24 09:19 [...] confused, unrespo /Reproduction History /Reproductive History - final operations technician: /Reproductive Hx- final operations technician Hx Now No 12/06/24 09:19 Gestational Age [...] MD Cosigner Signature: Date CC: ~ Signed [facility]09-05-2025 Telephone encounter Note* Telephone Encounter - Leena Bowles LPN - 11/29/2024 4:11 PM EDT Images from the original note were not included. José Luis Pichardo hours ago (12:25 PM) patient will need to contact medical records Called Leslie. Verified name and date of of patient. Notified. Leena Bowles LPN [facility]09-05-2025 Miscellaneous Notes* Telephone Encounter - Leena Bowles [...] done by Dr. Zuleyma Storm MD with [facility]. They need the surgerythat is recommended by Dr. Machuca, report of colonoscopy and images (Leslie will get a hold of medical records for imaging). No fax number available. Clinic number for : .Leena Bowles LPN * Telephone Encounter - Ely Hernández MA - 11/28/2024 8:42 AM EDT Pre op medical clearance letter faxed to Dr. Steiner. [phone] Ely Hernández MA * Telephone Encounter - [...] request for testing to be uploaded into [employer]. Appointment scheduled for . Leena Bowles LPN [...] coming. Please advise Leslie documented in [facility] encounter[facility] Telephone encounter Note * Telephone Encounter - Leena Bowles LPN - 11/29/2024 11:58 AM EDT Leslie called. Verified name and date of of patient. Patient has decided to have surgery done by Dr. Zuleyma Storm MD with [facility]. They need the surgerythat is recommended by Dr. Machuca, report of colonoscopy and images (Leslie will get a hold of medical records for imaging). No fax number available. Clinic number for : .Leena Bowles LPN [facility]09-04-2025 Telephone encounter Note* Telephone Encounter - Ely Hernández MA - 11/28/2024 8:42 AM EDT Pre op medical clearance letter faxed to Dr. Steiner. [phone] Ely Hernández MA [facility]09-03-2025 Telephone encounter Note* Telephone Encounter - Imani Rodriguez MA - 11/27/2024 3:07 PM EDT Received a call from patients daughter stating he has an appointment with Dr. Steiner tomorrow and they have not received any forms that need filled out for surgical clearance. Please send surgical clearance form to Dr. Steiner's office. [facility]08-29-2025 Telephone encounter Note* Telephone Encounter - Leena [...] request for testing to be uploaded into [employer]. Appointment scheduled for . Leena Bowles LPN [facility]08-28-2025 Telephone encounter Note* Telephone Encounter - Jennifer [...] prior to records coming. Please advise Leslie [facility]08-28-2025 NoteHNO ID: [id number] Author: SAURAV MACHUCA MD Service: ? Author Type: Physician Type: Progress Notes Filed: 11/21/2024 06:35 Note Text: FOLLOW UP VISIT - ENDOSCOPY NAME: Margaux James [facility] NO.: [id number] DATE OF SERVICE: 11/20/2024 : 1940 REFERRING [...] upper lobe lung cancer. He follows with [facility]. He completed radiation in 2022. Disease is stable. He has a hx of COPD- uses duoneb daily, but no other inhalers. Is able to walk up steps AND complete activity with no issues Margaux follows with [facility]. Last OV 08/2024. He had a stress test in 2023 EF was 57% AND there was no evidence of ischemia. He CP, SOB, dizziness, palpitations, syncope, edema, recent hospitalizations Margaux has undergone prior endoscopy. Last EGD AND colonoscopy was 01/[address] Machuca at [facility]. Sedation: MAC T he entire duodenum [...] a clip was placed (more content not included)...[facility]08-28-2025 History of Present illness Narrative* Saurav Machuca MD - 11/21/2024 6:25 AM EDT FOLLOW UP VISIT - ENDOSCOPY NAME: Margaux Sanderson CLINIC NO.: [id number] DATE OF SERVICE: 11/20/2024 : 1940 REFERRING [...] upper lobe lung cancer. He follows with [facility]. He completed radiation in 2022. Disease is stable. He has a hx of COPD- uses duoneb daily, but no other inhalers. Is able to walk up steps & complete activity with no issues Margaux follows with [facility]. Last OV 08/2024. He had a stress test in 2023 EF was 57% & there was no evidence of ischemia. He CP, SOB, dizziness, palpitations, syncope, edema, recent hospitalizations Margaux has undergone prior endoscopy. Last EGD & colonoscopy was 01/[address] Machuca at [facility]. Sedation: MAC T he entire duodenum [...] limiting complete polypectomy. - Repeat colonoscopy at [facility] with improved bowel preparation over 2 days [...] physician. Saurav Machuca MD documented in this encounter[facility] Instructions* Patient Instructions* Saurav Machuca MD - [...] two-step approach: 1. A repeat colonoscopy at [facility] to remove as many remaining polyps as [...] schedule the repeat colonoscopy and surgery at [facility]. You will receive instructions on the exact dates and times. - If you notice a metal clip in your stool, it is from the previous procedure and is normal. Please let us know if you have any questions or concerns as we move forward with this plan. documented in this encounter[facility] Note* Discharge Instr - Nia Saul RN - 11/15/2024 9:44 AM EDT The patient received a copy of Colonoscopy and EGD discharge instructions that contain information for how to contact the physician who performed the procedure and when to seek medical care. [facility]08-22-2025 Miscellaneous Notes* Discharge Instr - Nursing Nia Davey RN - 11/15/2024 9:44 AM EDT The patient received a copy of Colonoscopy and EGD discharge instructions that contain information for how to contact the physician who performed the procedure and when to seek medical care. documented in this encounterSelect [facility]08-[facility] Attending History and physical note* Saurav aMchuca MD - 11/15/2024 7:45 AM EDT UPDATED [...] upper lobe lung cancer. He follows with [facility]. He completed radiation in 2022. Disease is stable. He has a hx of COPD- uses duoneb daily, but no other inhalers. Is able to walk up steps & complete activity with no issues Margaux follows with [facility]. Last OV 08/2024. He had a stress test in 2023 EF was 57% & there was no evidence of ischemia. He CP, SOB, dizziness, palpitations, syncope, edema, recent hospitalizations Margaux has undergone prior endoscopy. Last EGD & colonoscopy was 01/[address] Machuca at [facility]. Sedation: MAC T he entire duodenum [...] of colon, [place] [facility] TRANSORAL BIOPSY SINGLE/MULTIPLE [...] edited and updated as necessary. Valerie Gaitan APRN.SENIOR PL SQL DEVELOPER [facility]08-22-2025 History and physical note* Saurav Machuca MD [...] upper lobe lung cancer. He follows with [facility]. He completed radiation in 2022. Disease is stable. He has a hx of COPD- uses duoneb daily, but no other inhalers. Is able to walk up steps & complete activity with no issues Margaux follows with [facility]. Last OV 08/2024. He had a stress test in 2023 EF was 57% & there was no evidence of ischemia. He CP, SOB, dizziness, palpitations, syncope, edema, recent hospitalizations Margaux has undergone prior endoscopy. Last EGD & colonoscopy was 01/[address] Machuca at [facility]. Sedation: MAC T he entire duodenum [...] edited and updated as necessary. Valerie Gaitan APRN.SENIOR PL SQL DEVELOPER [facility]08-22-2025 History and physical note* Saurav Machuca MD [...] upper lobe lung cancer. He follows with [facility]. He completed radiation in 2022. Disease is stable. He has a hx of COPD- uses duoneb daily, but no other inhalers. Is able to walk up steps & complete activity with no issues Margaux follows with [facility]. Last OV 08/2024. He had a stress test in 2023 EF was 57% & there was no evidence of ischemia. He CP, SOB, dizziness, palpitations, syncope, edema, recent hospitalizations Margaux has undergone prior endoscopy. Last EGD & colonoscopy was 01/[address] Machuca at [facility]. Sedation: MAC T he entire duodenum [...] to ask questions concerning the planned endoscopy. Maragux freely consents to surgery. I plan to [...] edited and updated as necessary. Valerie Gaitan APRN.SENIOR PL SQL DEVELOPER * Saurav Machuca MD - 11/15/2024 7:45 [...] upper lobe lung cancer. He follows with [facility]. He completed radiation in 2022. Disease is stable. He has a hx of COPD- uses duoneb daily, but no other inhalers. Is able to walk up steps & complete activity with no issues Margaux follows with [facility]. Last OV 08/2024. He had a stress test in 2023 EF was 57% & there was no evidence of ischemia. He CP, SOB, dizziness, palpitations, syncope, edema, recent hospitalizations Margaux has undergone prior endoscopy. Last EGD & colonoscopy was 01/[address] Machuca at [facility]. Sedation: MAC T he entire duodenum [...] of colon, [place] [facility] [place]GD TRANSORAL BIOPSY SINGLE/MULTIPLE [...] edited and updated as necessary. Valerie Gaitan APRN.SENIOR PL SQL DEVELOPER documented in this encounterSelect [facility]08-[facility]-2025 Progress [facility] [address] [place] [address] OFFICE VISIT Date of Service: 10/31/24 1303 MR#: [id number] Acct: [id number] Name: MARGAUX SANDERSON Rep #: [id number] : 1940 From: Alejandro abad DO Age/Sex: 84/M [facility] [facility] Status: Signed Intake Vital Signs 07/08/24 [...] any time. ? 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 10/31/24 1333 DO> Date _ [facility]ado [facility] Signature: Date (if applicable) CC: ~ [facility]08-07-2025 Progress note Author Alejandro Machado [facility] Services Note Date/Time October 31, 2024 1:3 3pm [facility] [address] [address] OFFICE VISIT Date of Service: 10/31/24 1303 MR#: [id number] Acct: [id number] Name: MARGAUX SANDERSON Rep #: [id number] : 1940 From: Alejandro abad DO Age/Sex: 84/M Location[place] [facility] Status: Signed Intake Vital Signs 07/08/24 [...] any time. ? 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 Alexander Steiner MD Status: REG C MADELEINE Study:Chest WITH Contrast Date of Exam: 10/29/24 Exam# [id number] Ordering Dr: Alejandro Machado DO PROCEDURE: CHEST [...] is is present Stable examination. Reading Location: [id number] CC: Dr. Alejandro Machado DO; Dr. Alexander Steiner MD ~ Pension Consultant: Signed [facility]07-25-2025 Telephone encounter Note* Telephone Encounter - Valerie Gaitan APRN.CNP - 10/18/2024 10:48 AM EDT Rachidytely sent to [facility] [place]. [facility]07-25-2025 Miscellaneous Notes* Telephone Encounter - Valerie Gaitan APRN.CNP - 10/18/2024 10:48 AM EDT Vesna sent to [facility] in [place]. * Telephone Encounter - Sunithadelphine Debbie - 10/15/2024 8:20 AM EDT Patient daughter called and had her father drink the Golytley yesterday because she thought the colonoscopy was on 10/15/24. Please send another Golytley to the pharmacy in [place] for procedure on 11/15/24. documented in this encounterSelect [facility]07-[facility]-2025 Telephone encounter Note * Telephone Encounter - Sunithadelphine Debbie - 10/15/2024 8:20 AM EDT Patient daughter called and had her father drink the Golytley yesterday because she thought the colonoscopy was on 10/15/24. Please send another Golytley to the pharmacy in [place] for procedure on 11/15/24. [facility]07-09-2025 Radiology Diagnostic study note [facility] Imaging Services [address] [place] [id number] Abdomen/Pelvis WITH Contrast MR#: [id number] Acct: [id number] Name: MARGAUX SANDERSON Rep #: [id number] : 1940 M 84 From: Robert Knowles MD PCP: Dr. Alexander Steiner MD Status: [facility] [place] Study:Abdomen/Pelvis WITH Contrast Date of Ex am: 10/02/24 Exam# [id number] Ordering Dr: Alexander Steiner MD PROCEDURE: ABDOMEN/PELVIS [...] No acute abnormality is seen. Reading Location: [place] [address] CC: Dr. Alexander Steinre MD ~ Pension Consultant: Signed [facility]07-07-2025 History of Present illness Narrative* Valerie Gaitan APRN.SENIOR PL SQL DEVELOPER - 09/30/2024 11:30 AM EDT HISTORY AND [...] upper lobe lung cancer. He follows with [facility]. He completed radiation in 2022. Disease is stable. He has a hx of COPD- uses duoneb daily, but no other inhalers. Is able to walk up steps & complete activity with no issues Margaux follows with [facility]. Last OV 08/2024. He had a stress test in 2023 EF was 57% & there was no evidence of ischemia. He CP, SOB, dizziness, palpitations, syncope, edema, recent hospitalizations Margaux has undergone prior endoscopy. Last EGD & colonoscopy was 01/[address] Machuca at [facility]. Sedation: MAC T he entire duodenum [...] to ask questions concerning the planned endoscopy. Maragux freely consents to surgery. I plan to [...] necessary. Valerie Gaitan APRN.SHINE documented in this encounterSelect [facility]07-[facility]-2025 NoteHNO ID: [id number] Author: VALERIE GAITAN APRN.CNP Service: ? Author [...] upper lobe lung cancer. He follows with [facility]. He completed radiation in 2022. Disease is stable. He has a hx of COPD- uses duoneb daily, but no other inhalers. Is able to walk up steps AND complete activity with no issues Margaux follows with [facility]. Last OV 08/2024. He had a stress test in 2023 EF was 57% AND there was no evidence of ischemia. He CP, SOB, dizziness, palpitations, syncope, edema, recent hospitalizations Margaux has undergone prior endoscopy. Last EGD AND colonoscopy was 01/[address] Machuca at [facility]. Sedation: MAC T he entire duodenum [...] reflux disease) HTN (hyper (more content not included)...[facility]07-01-2025 Evaluation note* Diagnosis Onset Date [...] Tubulovillous adenoma acute Oct mindy 2024 11:58am [facility] Work Phone: 1(455) 516-574607-01-2025 Evaluation note* Diagnosis Onset Date Resolution Status [...] right colectomy acute Octob er 2024 9:22am [facility] Work Phone: 1(681) 415-764906-18-2025 Radiology Diagnostic study note [facility] Imaging Services [address] [place], [place] [address] CTA Head AND Neck W/ Contrast MR#: [id number] Acct: [id number] Name: MARGAUX SANDERSON Rep #: [id number] : 1940 M 83 From: Robert Knowles MD PCP: Dr. Alexander Steiner MD Status: REG Nida SALVADOR Study:CTA Head AND Neck W/ Contrast Date of E xam: 09/11/24 Exam# [id number] Ordering Dr: Alexander Steiner MD PROCEDURE: CTA [...] LEFT Vertebral: Patent left vertebral artery. Anatomy: [place] anatomy is normal. Aneurysm or [...] artery. Dominant left vertebral artery. Reading Location: [place] [address] CC: Dr. Alexander Steiner MD ~ Pension Consultant: Signed [facility]06-05-2025 Evaluation note* Diagnosis Onset Date Resolution Status Admit Date Lightheadedness acute August 29, 2024 9:26am Mixed hyperlipidemia acute August 29, 2024 9:26am Coronary artery calcification chroni c August 29, 2024 9:26am Essential hypertension chronic Ju ne 2024 9:26am Carotid artery disease acute Ju 2024 1:54pm 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 acute October 31, 2 025 12:40pm [facility] Work Phone: 1(128) 481-980606-05-2025 Evaluation note* Diagnosis Onset Date Resolution Status [...] 1:11pm Tubulovillous adenoma acute Sep 2024 1:11pm [facility] Work Phone: [phone]) 750-456704-14-2025 Evaluation note* Diagnosis Onset Date Resolution Status Admit Date 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 acute July 08, 025 10:51am [facility] Work Phone: 1([phone]) 488-676804-14-2025 Evaluation note* Diagnosis Onset Date Resolution Status Admit Date 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 acute July 08, 025 10:51am Mixed hyperlipidemia acute August 29, 2024 9:26am Coronary artery calcification chroni c August 29, 2024 9:26am Essential hypertension chronic Ju ne 2024 9:26am [facility] Work Phone: [phone]) 938-301104-14-2025 Evaluation note* Diagnosis Onset Date Resolution Status Admit Date 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 acute July 08, 025 10:51am Lightheadedness acute August 29, 2024 9:26am Mixed hyperlipidemia acute August 29, 2024 9:26am Coronary artery calcification chroni c August 29, 2024 9:26am Essential hypertension chronic Ju ne 2024 9:26am [facility] Work Phone: [phone]) 285-879304-14-2025 Evaluation note* Diagnosis Onset Date Resolution Status Admit Date 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 acute July 08, 025 10:51am Lightheadedness acute August 29, 2024 9:26am Mixed hyperlipidemia acute August 29, 2024 9:26am Coronary artery calcification chroni c August 29, 2024 9:26am Essential hypertension chronic Ju ne 2024 9:26am Carotid artery disease acute Ju ly 2024 1:54[facility] Work Phone: [phone]) 578-463204-14-2025 Evaluation note* Diagnosis Onset Date Resolution Status [...] lung acute October 31, 2 025 12:40pm [facility] Work Phone: [phone]) [phone] Radiology Diagnostic study note [facility] Imaging Services [address] [place] [address] Chest WITH Contrast MR#: [id number] Acct: [id number] Name: MARGAUX SANDERSON Rep #: [id number] : 1940 M 83 From: Robert Knowles MD PCP: Dr. Alexander Steiner MD Status: REG Nida SALVADOR Study:Chest WITH Contrast Date of Exam: 06/27/24 Exam# [id number] Ordering Dr: Alejandro Machado DO PROCEDURE: CHEST [...] of the right upper lobe. Reading Location: [facility] CC: Dr. Alejandro Machado DO; Dr. Alexander Steiner MD ~ Pension Consultant: Signed [facility]03-04-2025 Radiology Diagnostic study note [facility] Imaging Services [address] [place] [id number] Chest PA and Lateral MR#: [id number] Acct: [id number] Name: MARGAUX SANDERSON Rep #: [id number] : 1940 M 83 From: Tamar Neal MD PCP: Dr. Alexander Steiner MD Status: APOLINAR SALVADOR Study:Chest PA and Lateral Date of Exam: 05/28/24 Exam# [id number] Ordering Dr: Alexander Steiner MD EXAM: XR Chest, 2 Views CLINICAL INDICATION: TECHNIQUE: Frontal and lateral views of the chest. COMPARISON: No relevant prior studies available. FINDINGS: LUNGS AND PLEURAL SPACES: Unremarkable. No consolidation. No pneumothorax. HEART: Unremarkable. No cardiomegaly. MEDIASTINUM: Unremarkable. Normal mediastinal contour. BONES/JOINTS: Unremarkable. No acute fracture. RAD/Chest PA and Lateral IMPRESSION: No acute cardiopulmonary process. Reading Location: [facility] CC: Dr. Alexander Steiner MD ~ Pension Consultant: Signed [facility]11-25-2024 Evaluation note* Diagnosis Onset Date Resolution Status Admit Date Primary osteoarthritis, righ t shoulder acute February 18, 2 024 10:42am Right shoulder pain acute 2023 10:42am 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 acute February 29, 2024 11:13am [facility] Work Phone: [phone]) 158-377209-08-2023 Nurse Note* Jessie Shah RN - 12/02/2022 10:55 AM EDT Patient meets Interventional Radiology sedation discharge criteria and discharged per MD order to home. Patient taken by wheelchair by Oju, RIM FIRE PRIMING OPERATOR to awaiting car. All belongings gathered with patient. Family/friend to drive patient home and care for patient 6 hours post-procedure. * Felicitas Ritter RN - 12/02/2022 10:23 AM EDT CXR clear per Dr. Leroy. * France Roy RN - 12/02/2022 7:30 AM EDT Pt denies history chemo/radiation, seizure,stroke, or metal/implants. [facility] in [facility] Surgical operation note* Jessie Shah RN - 12/02/2022 10:55 AM EDT Patient meets Interventional Radiology sedation discharge criteria and discharged per MD order to home. Patient taken by wheelchair by Oju, RIM FIRE PRIMING OPERATOR to awaiting car. All belongings gathered with patient. Family/friend to drive patient home and care for patient 6 hours post-procedure. [facility]09-08-2023 Nurse Surgical operation note* Felicitas Ritter RN - 12/02/2022 10:23 AM EDT CXR clear per Dr. Leroy. [facility]09-08-2023 Nurse Note* Nursing Notes - Kleber Callahan RN - 12/02/2022 8:16 AM EDT Procedure completed with IR Attending MD Goodrich of CT guided R Lung biopsy. Samples obtained intra-procedure and sent to lab for analysis. Post procedure patient to travel to [facility] for post procedure monitoring. See post procedure orders for nursing care. [facility]09-08-2023 Miscellaneous Notes* Nursing Notes - Kleber Callahan RN - 12/02/2022 8:16 AM EDT Procedure completed with IR Attending MD Goodrich of CT guided R Lung biopsy. Samples obtained intra-procedure and sent to lab for analysis. Post procedure patient to travel to [facility] for post procedure monitoring. See post procedure orders for nursing care. * Nursing Notes - France Roy RN - 12/02/2022 7:30 AM EDT 0829: Patient [facility] in [facility] Phase 2 Interventional Radiology from Interventional Radiology Procedure Suite with side rails up x2 with HOB >30 degrees, accompanied by IR Nurse. Patient placed onmonitors, VSS. Patient assessed, see assessment. [facility] History and physical note* JENNIFER Chavez - [...] of breathing Neurological: No focal deficits Skin: Hosmer, warm and dry Laboratory Data Results for [...] procedure. JENNIFER De 12/02/2022 6:44 AM [facility] Work Phone: 1(335) 655-613909-08-2023 History and physical note* JENNIFER Chavez - [...] of breathing Neurological: No focal deficits Skin: Hosmer, warm and dry Laboratory Data Results for [...] No hold indicated for procedure. Mirlande Murray APRN-SENIOR PL SQL DEVELOPER 12/02/2022 6:44 AM [facility] Nurse Note* Nursing Notes - France Roy RN - 12/02/2022 7:30 AM EDT 0829: Patient [facility] in [facility] Phase 2 Interventional Radiology from Interventional Radiology Procedure Suite with side rails up x2 with HOB >30 degrees, accompanied by IR Nurse. Patient placed onmonitors, VSS. Patient assessed, see assessment. [facility]09[facility] Nurse Surgical operation note* France Roy RN - 12/02/2022 7:30 AM EDT Pt denies history chemo/radiation, seizure,stroke, or metal/implants. [facility]09-08-[facility] Procedure note* Reji Goodrich MD - 12/02/2022 7:30 AM EDTAssociated Order(s): GENERAL PROCEDURE BODY INTERVENTIONAL RADIOLOGY PROCEDURE NOTE PROCEDURE INDICATION: Right upper lobe enlarging lung nodule PROCEDURE PERFORMED: CT-guided lung biopsy FINDINGS/TARGET: Right upper raj lung nodule. Total of 6 passes taken. No pneumothorax on post imaging. Reji Goodrich MD 12/02/2022 9:11 AM HAND PACKER(S): Reji Goodrich MD. CONSENT: Informed consent was obtained prior to the procedure after discussion of the risks, benefits, and alternatives of the procedure, and expected procedure outcomes were discussed with the patient and/orrepresentative. The consent document was placed in chart. DID THIS PROCEDURE REQUIRE A UNIVERSAL PROTOCOL?: Yes. [place] Protocol is required. Preprocedure verification is complete. [...] Interventional Radiology to participate in thispatient's care. [facility] Work Phone: 1(865) 567-485809-08-2023 Procedure note* Reji Goodrich MD - 12/02/2022 7:30 AM EDTAssociated Order(s): GENERAL PROCEDURE BODY INTERVENTIONAL RADIOLOGY PROCEDURE NOTE PROCEDURE INDICATION: Right upper lobe enlarging lung nodule PROCEDURE PERFORMED: CT-guided lung biopsy FINDINGS/TARGET: Right upper raj lung nodule. Total of 6 passes taken. No pneumothorax on post imaging. Reji Goodrich MD 12/02/2022 9:11 AM HAND PACKER(S): Reji Goodrich MD. CONSENT: Informed consent was obtained prior to the procedure after discussion of the risks, benefits, and alternatives of the procedure, and expected procedure outcomes were discussed with the patient and/orrepresentative. The consent document was placed in chart. DID THIS PROCEDURE REQUIRE A UNIVERSAL PROTOCOL?: Yes. [place] Protocol is required. Preprocedure verification is complete. [...] participate in thispatient's care. documented in this [facility]09-08-2023 Hospital Discharge instructions* Discharge Instructions* Leonila Murray, RETAIL ROUTE SUPERVISOR-SENIOR PL SQL DEVELOPER - 12/02/2022 6:47 AM EDT Home Care [...] or on Weekends, please call the Hospital Sheep Clipper at [phone] and ask them for the Interventional Wort Extractor On-Call documented in [facility] History of Present illness Narrative* Dean Bedoya, JENNIFER - 11/04/2022 11:00 AM EDT PROGRESS NOTE Chief Complaint Patient presents with Follow-up Margaux Sanderson is a 82 y.o. male former smoker who is being followed for right upper lobe nodule. This was first found in 2011 and was noted to be 5.9 mm. He followed in surveillance with his local roll press operator Dr. Jimenez and was referred to our [...] He followed in surveillance with his local roll press operator Dr. Jimenez and was referred to our [...] and discussed with JENNIFER Eugene. JENNIFER Eugene #[id number] documented in this [facility] History of Present illness Narrative* JENNIFER Eugene - 11/10/2021 11:45 AM EDT PROGRESS NOTE Chief Complaint Patient presents with Follow-up CT complete. Margaux Sanderson is a 81 y.o. male former smoker who is being followed for right upper lobe nodule. This was first found in 2011 and was noted to be 5.9 mm. He followed in surveillance with his local roll press operator Dr. Jimenez and was referred to our [...] He followed in surveillance with his local roll press operator Dr. Jimenez and was referred to our [...] (SUVmax 8.8). The patient was evaluated at [facility] and surgery was recommended for the right [...] (SUVmax 8.8). The patient was evaluated at [facility] and surgery was recommended for the right [...] Micah Trinh MD documented in this encounter[facility] History of Present illness Narrative* Micah Trinh [...] (SUVmax 8.8). The patient was evaluated at [facility] and surgery was recommended for the right [...] (SUVmax 8.8). The patient was evaluated at [facility] and surgery was recommended for the right [...] the past 3 years with his local roll press operator, Dr. Micah Jimenez ([place]). A CT chest on 05/08/20 showed a [...] 1.5 weeks ago from a surgeon in [place], [place] and also recently started taking amlodipine. [...] wall lesions are identified. Additional Findings: None. Executive Asst: Executive Asst imaging reveals no abnormalities not already visible [...] the past 3 years with his local roll press operator, Dr. Micah Jimenez ([place]). A CT chest on 05/08/20 showed a [...] plan. Chantel Ospina PA-C documented in this encounterUpper [facility]04-20-2021 NoteHNO ID: [id number] Author: Jose Daniel Danielle (Tech) Service: Nuclear Medicine Author Type: Payroll Associate Type: Progress Notes Filed: 07/14/2020 7:00 [...] safety can be found using this link: [email or web address] SIGNATURE: Sally Banks PATIENT NAME: Margaux Sanderson DATE: July 14, 2020 TIME: 6:59 AM [facility] Diagnosis Solitary lung nodule Solitary pulmonary nodule [facility]* Diagnosis Solitary lung nodule- Primary Solitary pulmonary nodule [facility]* Diagnosis Onset Date Resolution Status Bradycardia acute Mixed hyperlipidemia acute Coronary artery calcification chronic Essential hypertension chron ic [facility] Work Phone: Evaluation noteNo assessment information available [facility] Work Phone: Evaluation note* Diagnosis Lung nodule Solitary pulmonary nodule Former smoker Personal history of tobacco use, presenting hazards to health [facility]* Diagnosis Lung nodule- Primary Solitary pulmonary nodule [facility]* Diagnosis Onset Date Resolution Status Bradycardia acute Mixed hyperlipidemia acute Coronary artery calcification chronic Essential hypertension chron ic Osteoporosis acute Postoperative primary hypothyroidism acute Vitamin D deficiency acute [facility] Work Phone: Evaluation note* Diagnosis Onset Date Resolution Status Osteoporosis acute Postoperative primary hypothyroidism acute Vitamin D deficiency acute [facility] Work Phone: Evaluation note* Diagnosis Lung nodule- Primary Solitary pulmonary nodule [facility] Diagnosis Nodule of upper lobe of right lung [facility] Diagnosis Onset Date Resolution Status Primary adenocarcinoma of upper lobe of right lung acute Primary adenocarcinoma of upper lobe of right lung acute Primary adenocarcinoma of upper lobe of right lung acute [facility] Work Phone: Evaluation note* Diagnosis Onset Date Resolution Status Primary adenocarcinoma of upper lobe of right lung acute Primary adenocarcinoma of upper lobe of right lung acute [facility] Work Phone: Evaluation note* Diagnosis Unintentional weight loss- Primary Loss of weight Fecal occult blood test positive Nonspecific abnormal finding in stool contents History of Matute's esophagus Family history of colon cancer Family history of malignant neoplasm of gastrointestinal tract [facility] 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 Unintentional weight loss Loss of weight Family history of colon cancer Family history of malignant neoplasm of gastrointestinal tract [facility] 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- Primary Matute's esophagus Unintentional weight loss Loss of weight Fecal occult blood test positive Nonspecific abnormal finding in stool contents Family history of colon cancer Family history of malignant neoplasm of gastrointestinal tract History of Matute's esophagus documented [facility] this encounter [facility]* 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 [address] [place] [address] OFFICE VISIT Date of Service: 01/10/25 MR#: [id number] Acct: [id number] Name: MARGAUX SANDERSON Rep #: [id number] : 1940 Provider: Dr. 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 Zuleyma Storm M.D. Pager: [phone] [facility] [address] [place] [address], [facility], [address] [place] [address] Office: [phone] 01/10/25 5929 <Electronically signed by Zuleyma Paredes am, MD> Date _ Zuleyma Storm MD Cosigner Signature: Date (if applicable) CC: Dr. 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 Unintentional weight loss Family history of colon cancer Procedures XR ABDOMEN 1V SUPINE RADIOLOGIC EXAM ABDOMEN 1 VIEW Saurav Machuca MD [address] [place] [address] Phone: tel: fax: [place] [address] Referral ID Status Reason Start Date Expiration Date V isits Requested Visits Authorized [id number] Closed Auto-Generate d Referral 11/15/2024 12/15/2025 1 1 [facility] for [facility] Narrative* Outpatient Procedure (Routine) - Closed Specialty Diagnoses / Procedures Referred By Bonnie chowdary Referred To Contact [facility] Diagnoses Unintentional weight loss Fecal occult blood test positive History of Matute's esophagus Procedures EGD DIAGNOSTIC ESOPHAGOGASTRODUODENOSC OPY TRANSORAL DIAGNOSTIC Valerie Gaitan APRN.SHINE [address] [place] [address] Phone: tel: fax: Saurav Machuca MD [address] [place] [address] Phone: tel: fax: Referral ID Status Reason Start Date Expiration Date V isits Requested Visits Authorized [id number] Closed Auto-Generate d Referral 11/15/2024 01/15/2025 1 1 [facility] Summary Purpose Family History No Family History [...] No October 20, 2020 10:04am Power of Kraft Mill Operator No October 20 10:04am Latest Code Status on File Code Status Date Activated Date Inactivated Comments Full Code 12/02/2022 7:44 AM Latest Code Status on File Code Status Date Activated Date Inactivated Comments Full Code 12/02/2022 7:44 AM Advance Directive Response Recorded Date/ Time Advance Directives No February 01, 2016 11:13am Living Will No October 20, 2020 9:04am Power of Kraft Mill Operator No October 20 9:04am Advance Directive Response Recorded Date/ Time Living Will No October 20, 2020 10:04am Power of Kraft Mill Operator No October 20 10:04am Advance Directives No February 01, 2016 12:13pm Advance Directive Response Recorded Date/ Time Advance Directives No February 01, 2016 12:13pm Advance Directive Response Recorded Date/ Time Advance Directives No November 10:30am Advance Directive Response Recorded Date/ Time Advance Directives No November 10:30am Do you have a Healthcare Power of Kraft Mill Operator? Yes December 06, 2024 9:19am Advance Directive Response Recorded Date/ Time Advance Directives No November 10:30am Do you have a Healthcare Power of Kraft Mill Operator? Yes December 26, 2024 1:26pm Do you have a Healthcare Power of Kraft Mill Operator? Yes December 06, 2024 9:19am Reason for Referral Specialty Diagnoses / Procedures Referred By Contac t Referred To Contact Diagnoses Solitary lung nodule Procedures CT CHEST WITH CONTRAST CHG DIAGNOSTIC COMPUTED TOMOGRAPHY THORAX W/CONTRAST Ingrid Lebron PA-C [address] [place] [address] Referral ID Status Reason Start Date Expiration Date Visits Re quested Visits Authorized [id number] Closed 09/09/2020 10/04/2021 1 1 Specialty Diagnoses / Procedures Referred By Contac t Referred To Contact Diagnoses Solitary lung nodule Procedures CT CHEST WITHOUT CONTRAST CHG DIAGNOSTIC COMPUTED TOMOGRAPHY THORAX W/O CNTRST Chantel Ospina PA-C [address] [place] [address] Referral ID Status Reason Start Date Expiration Date V isits Requested Visits Authorized [id number] New Request 11/11/2020 12/06/2021 1 1 Specialty Diagnoses / Procedures Referred By Contac t Referred To Contact Diagnoses Lung nodule Former smoker Procedures CT CHEST WITHOUT CONTRAST CHG DIAGNOSTIC COMPUTED TOMOGRAPHY THORAX W/O CNTRST Delia Mccauley, RETAIL ROUTE SUPERVISOR-SENIOR PL SQL DEVELOPER [address] [place] [address] Referral ID Status Reason Start Date Expiration Date Visits Re quested Visits Authorized [id number] Closed 05/12/2021 06/06/2022 1 1 Specialty Diagnoses / Procedures Referred By Contac t Referred To Contact Diagnoses Lung nodule Procedures CT CHEST WITHOUT CONTRAST CHG DIAGNOSTIC COMPUTED TOMOGRAPHY THORAX W/O CNTRST Dean Bedoya, RETAIL ROUTE SUPERVISOR-SENIOR PL SQL DEVELOPER [address] [place] [address] Referral ID Status Reason Start Date Expiration Date V isits Requested Visits Authorized [id number] New Request 11/10/2021 12/05/2022 1 1 Specialty Diagnoses / Procedures Referred By Bonnie chowdary Referred To Contact Diagnoses Nodule of upper lobe of right lung Procedures CT LUNG/MEDIASTINUM BIOPSY AK CORE NEEDLE BX LUNG/MEDIASTINUM PERQ W/IMG AK CT GUIDANCE NEEDLE PLACEMENT Dean Bedoya, RETAIL ROUTE SUPERVISOR-SENIOR PL SQL DEVELOPER [address] [place] [address] Referral ID Status Reason Start Date Expiration Date V isits Requested Visits Authorized [id number] New Request 11/11/2022 12/06/2023 1 1 Chief [...] section and content) DATE CREATED AUTHOR 09/04/2020 [facility] DATE CREATED AUTHOR AUTHOR'S ORGANIZ ATION 11/16/2022 [facility] DATE CREATED AUTHOR AUTHOR'S ORGANIZ ATION 12/05/2024 [facility] DATE CREATED AUTHOR AUTHOR'S ORGANIZ ATION 01/28/2025 [facility] Reason for Visit (unrecogniz ed section and content) Specialty Diagnoses / Procedures Referred By Bonnie chowdary Referred To Contact Diagnoses Solitary lung nodule Procedures CT CHEST WITH CONTRAST CHG DIAGNOSTIC COMPUTED TOMOGRAPHY THORAX W/CONTRAST Ingrid Lebron PA-C [address] [place] [address] Referral ID Status Reason Start Date Expiration Date Visits Re quested Visits Authorized [id number] Closed 09/09/2020 10/04/2021 1 1 Reason Comments [...] COMPUTED TOMOGRAPHY THORAX W/O CNTRST Delia Mccauley, RETAIL ROUTE SUPERVISOR-SENIOR PL SQL DEVELOPER [address] [place] [address] Referral ID Status Reason Start Date Expiration Date Visits Re quested Visits Authorized [id number] Closed 05/12/2021 06/06/2022 1 1 Reason Comments Follow-up CT complete. Reason Comments Follow-up Specialty Diagnoses / Procedures Referred By Bonnie chowdary Referred To Contact Diagnoses Nodule of upper lobe of right lung Procedures CT LUNG/MEDIASTINUM BIOPSY AK CORE NEEDLE BX LUNG/MEDIASTINUM PERQ W/IMG AK CT GUIDANCE NEEDLE PLACEMENT Dean Bedoya, RETAIL ROUTE SUPERVISOR-SENIOR PL SQL DEVELOPER [address] [place] [address] Referral ID Status Reason Start Date Expiration Date V isits Requested Visits Authorized [id number] New Request 11/11/2022 12/06/2023 1 1 Reason Comments Consult EGD & Colonoscopy Reason Comments Orders Reason Comments Follow Up Reason Comments Patient Question Care Teams (unrecognized sec tion and content) Management Manager Relationship Specialty Start Date End Date Jatin, Alexander-Chi, MD [address] [facility] [address] [place], [place] [address] PCP - General Internal Medicine 09/09/20 Micah Forrest MD [address] [facility] [address] [place] [address] Potter Or Ceramic Artist Pulmonary Disease 11/11/20 Management Manager Relationship Specialty Start Date End Date Denzel Steiner MD [address] [facility] [address] [place] [address] PCP - General Internal Medicine 09/09/20 Micah Forrest MD [address] [facility] [address] [place] [address] Potter Or Ceramic Artist Pulmonary Disease 11/11/20 Management Manager Relationship Specialty Start Date End Date Denzel Steiner MD [address] [facility] [address] [place] [address] PCP - General Internal Medicine 09/09/20 Micah Forrest MD [address] [facility] [address] [place] [address] Potter Or Ceramic Artist Pulmonary Disease 11/11/20 Management Manager Relationship Specialty Start Date End Date Denzel Steiner MD [address] [facility] [address] [place] [address] PCP - General Internal Medicine 09/09/20 Mciah Forrest MD [address] [facility] [address] [place], [place] [address] Potter Or Ceramic Artist Pulmonary Disease 11/11/20 Team Status: Active Member [...] MD Primary Care Provider, Attending Provider Active Management Manager Relationship Specialty Start Date End Date Denzel Steiner MD [address] [facility] [address] [place], [place] [id number] PCP - General Internal Medicine 09/09/20 Micah Forrest MD [address] [facility] [address] [place], [place] [address] Potter Or Ceramic Artist Pulmonary Disease 11/11/20 Management Manager Relationship Specialty Start Date End Date Denzel Steiner MD [address] [facility] [address] [place], [place] [phone] PCP - General Internal Medicine 09/09/20 Micah Forrest MD [address] [facility] [address] [place], [place] [phone] Potter Or Ceramic Artist Pulmonary Disease 11/11/20 Management Manager Relationship Specialty Start Date End Date Denzel Steiner MD [address] [facility] [address] [place], [place] [phone] PCP - General Internal Medicine 09/09/20 Micah Forrest MD [address] [address] Potter Or Ceramic Artist Pulmonary Disease 11/11/20 Team Status: Inactive Member [...] 12, 2024 End: August 12, 2024 Dr. lAexander Steiner MD Referring Provider Active Start: August [...] 29, 2024 End: August 29, [address] MANAGER, RD MANAGER-C Attending Provider Active Start: August 29, 2024 [...] End: August 29, 2024 Laura Condon NP, RD MANAGER-C Attending Provider Active Start: August 29, 2024 [...] Provider Active Start: 2024 End: 2024 Dr. Alexandre Steiner MD Referring Provider Active Start: 2024 [...] 2024 End: August 29, [address] MANAGER, RD MANAGER-C Attending Provider Active Start: August 29, 2024 [...] September 19, 2024 End: September 19, 2024 Management Manager Relationship Specialty Start Date End Date Florentin Hernandez MD PCP - General Family Medicine 10/25/11 [address] [place] [address] [place] [address] Referring Internal Medicine 05/14/20 Team Status: Inactive Member Role/Relationship Status Dates Dr. Alexander Steiner MD Primary Care Provider Active Start: October 02, 2024 End: October 02, 2024 Dr. Alexander Steiner MD Attending Provider Active Start: October 02, 2024 End: October 02, 2024 Dr. Alexander Steiner MD Referring Provider Active Start: October 02, 2024 End: October 02, 2024 Management Manager Relationship Specialty Start Date End Date Florentin Hernandez MD PCP - General Family Medicine 10/25/11 Micah Jimenez V [address] [place] [address] Referring Internal Medicine 05/14/20 Team Status: Inactive [...] End: August 29, 2024 Laura Condon NP, RD MANAGER-C Attending Provider Active Start: August 29, 2024 [...] October 29, 2024 End: October 29, 2024 Management Manager Relationship Specialty Start Date End Date Alexander Steiner Juvenal [address] [place], [place] [address] PCP - General Gerontology 10/25/24 Micah Jimenez V [address] [place] [phone] Referring Internal Medicine 05/14/20 Management Manager Relationship Specialty Start Date End Date Alexander Steiner Chi [address] [place], [place] [phone] PCP - General Gerontology 10/25/24 Micah Jimenez V [address] [place] [phone] Referring Internal Medicine 05/14/20 Management Manager Relationship Specialty Start Date End Date Alexander Steiner Chi [address] [place], [place] [phone] PCP - General Gerontology 10/25/24 Micah Jimenez [address] [place] [phone] Referring Internal Medicine 05/14/20 Management Manager Relationship Specialty Start Date End Date Alexander Steiner Chi [address] [place], [place] [address] PCP - General Gerontology 10/25/24 Micah Jimenez V [address] [place] [address] Referring Internal Medicine 05/14/20 Team Status: Inactive [...] 2024 End: August 29, [address] MANAGER, RD MANAGER-C Attending Provider Active Start: August 29, 2024 [...] Inactive Member Role/Relationship Status Dates Dr. Alexander Steienr MD Primary Care Provider Active Start: September [...] 2024 End: August 29, [address] MANAGER, RD MANAGER-C Attending physician Active Start: August 29, 2024 [...] Status: Inactive Member Role/Relationship Status Dates Dr. Alexanedr Steiner MD Primary care physician Active Start: [...] 2024 End: August 29, [address] MANAGER, RD MANAGER-C Attending physician Active Start: August 29, 2024 [...] 2024 End: December 11, 2024 Dr. Alexander Stenier MD Referring Provider Active Start: December 11, [...] 2024 End: December 28, 2024 Dr. Zuleyma Stomr MD Attending physician Active Start: December 27, [...] or prosecute any alcohol or drug abuse patient.[facility], IncIn the event this information is protected by the Federal Confidentiality of Alcohol and Drug Abuse Patient Records regulations: The Federal rules restrict any use of the information to criminally investigate or prosecute any alcohol or drug abuse patient.[facility], IncIn the event this information is protected by the Federal Confidentiality of Alcohol and Drug Abuse Patient Records regulations: The Federal rules restrict any use of the information to criminally investigate or prosecute any alcohol or drug abuse patient.[facility], IncIn the event this information is protected by the Federal Confidentiality of Alcohol and Drug Abuse Patient Records regulations: The Federal rules restrict any use of the information to criminally investigate or prosecute any alcohol or drug abuse patient.[facility], IncIn the event this information is protected by the Federal Confidentiality of Alcohol and Drug Abuse Patient Records regulations: The Federal rules restrict any use of the information to criminally investigate or prosecute any alcohol or drug abuse patient.[facility], IncIn the event this information is protected by the Federal Confidentiality of Alcohol and Drug Abuse Patient Records regulations: The Federal rules restrict any use of the information to criminally investigate or prosecute any alcohol or drug abuse patient.[facility], IncIn the event this information is protected by the Federal Confidentiality of Alcohol and Drug Abuse Patient Records regulations: The Federal rules restrict any use of the information to criminally investigate or prosecute any alcohol or drug abuse patient.[facility] FOR RECORDS PERTAINING TO PATIENTS WHO ARE [...] BE BASED ON THE PRIMARY CLINICAL RECORDS. [facility] [employer] [facility] provides no warranty or guarantee of the accuracy or completeness of information in this document.
== END | disposition home or self-care (01) ==
LOC: LAB 10:59
PROVIDERS: PCP Family Medicine Geriatric Medicine; Referring Provider Family Medicine Geriatric Medicine; Visit Provider Family Medicine Geriatric Medicine
DX: D64.9 Anemia, unspecified (principal)
CPT/HCPCS: 36415; 85014; 85018